=== PATIENT | male | born 1965 | race Caucasian/White ===

== ENCOUNTER 2019-05-19 20:34 | Emergency (ER) | payer MEDICAID, SELFPAY ==
[2019-05-19 20:43] VITALS: BP 187/110; PULSE 78; RESP 18; TEMP 36.9; O2SAT 96; BMI 36.4
[2019-05-19 20:48] VITALS: BP 187/110; PULSE 77; PULSE 83; RESP 14; O2SAT 96
[2019-05-19] MEDS: cloNIDine 0.1 mg Tablet 0.3 MG PO (20:59)
[2019-05-19] MEDS: HYDROcodone-acetaminophen 7.5-325 mg Tablet 1 TAB PO (20:59)
--- NOTE | 2019-05-19 21:14 | ED_ITS ---
HPI - Back Pain/Injury General: Chief Complaint: Back Pain/Injury Stated Complaint: LOWER BACK PAIN Time Seen by Provider: 05/19/19 20:47 History of Present Illness: HPI Narrative: ObesePatient complains of back pain from pushing his disabled program wheelchair yesterday about 1/2 miles 300 pound wheelchair. Patient did come in by ambulance. Patient had concerns about some fluid he has in his abdomen had questions about that. MD elicited complaint: back pain and back injury Pertinent past history: prior back pain Onset (ago): hour(s) Timing: constant Severity: moderate Associated symptoms: Deny abdominal pain, chills, fever(s), nausea or vomiting Review of Systems Narrative: Obese Const: Denies: fever, chills or body aches Eyes: Denies: change in vision or blurry vision ENMT: Denies: throat pain or nasal congestion Card: Denies: chest pain or shortness of breath on exertion Resp: Denies: shortness of breath, productive cough or non-productive cough GI: Denies: abdominal pain, nausea or vomiting : Denies: difficulty urinating Musc: Reports: back pain Skin/Breast: Denies: rash Neuro: Denies: headache Psych: Denies: anxiety or depression Jose G/Lymph: Denies: easy bruising PFSH ED PFSH: Statuses (acute, chronic, etc) shown below reflect problem list status as previously entered and may not be historically accurate Social History Smoking and tobacco status: current every day smoker Physical Exam Const: COMMON NORMALS: no apparent distress, average body habitus and oriented x3 HENMT: COMMON NORMALS: normocephalic HEAD & SCALP: normal to inspection and normocephalic FACE & SINUS: normal facial exam Eye: COMMON NORMALS: conjunctivae normal GENERAL EYE: normal appearance of both eyes CONJUNCTIVA: Yes conjunctivae normal Neck/C-Spine: COMMON NORMALS: no JVD Chest: COMMONS NORMALS: inspection of chest normal Resp: COMMON NORMALS: normal respiratory effort and clear to auscultation bilaterally AUSCULTATION: clear to auscultation bilaterally Cardio: COMMON NORMALS: no JVD, regular rate and regular rhythm RATE: reg ular rate RHYTHM: regular rhythm GI: COMMON NORMALS: normal to inspection, nondistended, normoactive bowel sounds Back/Pelvis: LUMBAR SPINE/LOWER BACK: Yes pain with ROM, Yes paraspinal muscle tenderness, No paraspinal muscle spasm, Yes straight leg raise positive right and Yes straight leg raise positive left BACK IMAGE (MALE): 1. Extremity: COMMON NORMALS: normal to inspection and full ROM Neuro: COMMON NORMALS: oriented x3 Course Vital Signs: Vital signs: Vital Signs Temperature 98.4 F 05/19/19 20:43 Pulse Rate 77 05/19/19 20:48 Respiratory Rate 14 05/19/19 20:48 Blood Pressure 187/110 05/19/19 20:48 Pulse Oximetry 96 05/19/19 20:48 Discharge Plan Discharge Clinical Impression: Strain of lumbar region Condition: Stable Prescriptions: New hydrocodone-acetaminophen 5-325 mg tablet 1 tab PO Q8H PRN (Reason: pain) Qty: 10 RF: 0 No Action Glucophage 500 mg Tablet 500 mg PO BID RF: 0 omeprazole 40 mg Capsule,Delayed Release(Dr/Ec) 40 mg PO DAILY RF: 0 levothyroxine 200 mcg Capsule 200 mcg PO DAILY RF: 0 Discharge Orders: Discharge Order (Routine); Ordered 05/19/19 Ordered By: Alonso Brody Referrals: Joseph Crespo DO [Family Provider] - Discharge Diet: Advance as tolerated Discharge Activity: Limit activity as instructed Patient Instructions: Low Back Strain (ED) Activity Restrictions/Additional Instructions: Follow-up with medical provider as directed. Take medications as prescribed. Return to the ER are your medical provider if condition worsens. Read and understand discharge instructions. Coding Level of Care Code ED Stamp Collector for Marva Bunn
[2019-05-19 21:35] VITALS: BP 145/99; PULSE 77; RESP 14; TEMP 36.6; O2SAT 97
== END 2019-05-19 21:37 | disposition home or self-care (01) ==
PROVIDERS: Emergency Provider Nurse Practitioner Family; Family Provider Internal Medicine
DX: S39.012A Strain of muscle, fascia and tendon of lower back, initial encounter (principal); X50.9XXA Other and unspecified overexertion or strenuous movements or postures, initial encounter; F17.210 Nicotine dependence, cigarettes, uncomplicated; Z79.84 Long term (current) use of oral hypoglycemic drugs
CPT/HCPCS: 99281

== ENCOUNTER 2019-05-28 19:50 | Emergency (ER) | payer MEDICAID, SELFPAY ==
[2019-05-28 19:52] VITALS: BP 120/61; PULSE 76; RESP 16; TEMP 36.6; O2SAT 97; BMI 34.7
--- NOTE | 2019-05-28 20:10 | XRR_ITS ---
PROCEDURE INFORMATION: Exam: XR Abdomen, 1 View Exam date and time: 05/28/2019 8:11 PM Age: 54 years old Clinical indication: Abdominal pain; Generalized TECHNIQUE: Imaging protocol: XR of the abdomen. Views: Frontal supine view of the abdomen. 1 View. COMPARISON: CR Abdomen Series Acute [id number] 03/20/2019 8:00 PM FINDINGS: Gastrointestinal tract: Normal. No bowel dilation. Bones/joints: Unremarkable. XR/XR KUB portable [id number] IMPRESSION: Negative for acute GI abnormality
--- NOTE | 2019-05-28 20:18 | W.ED.GENADLT ---
HPI - General Adult General: Chief complaint: Abdominal Pain Stated complaint: constipation Time Seen by Provider: 05/28/19 20:10 History of Present Illness: HPI narrative: Patient arrived via EMS. Complains of abdominal pain. Was trying to have a bowel movement and abdomen started hurting. [place] very faint possibly like he was going to throw up. complaint: abd pain Onset (ago): minute(s) Location: abdomen Radiation: non-radiation Severity: severe Severity scale (1-10): 8 Quality: stabbing Pain Consistency: constant Relieving factors: none Associated symptoms: Reports no associated symptoms; Deny chest pain, dyspnea, headache(s), nausea, rash or vomiting Review of Systems Const: Denies: fever, chills or body aches Eyes: Denies: change in vision or blurry vision ENMT: Denies: throat pain or nasal congestion Card: Denies: chest pain or shortness of breath on exertion Resp: Denies: shortness of breath, productive cough or non-productive cough GI: Reports: abdominal pain; Denies: nausea or vomiting : Denies: difficulty urinating Musc: Denies: extremity pain Skin/Breast: Denies: rash Neuro: Denies: headache Psych: Denies: anxiety or depression Jose G/Lymph: Denies: easy bruising PFSH ED PFSH: Statuses (acute, chronic, etc) shown below reflect problem list status as previously entered and may not be historically accurate Social History Smoking and tobacco status: current every day smoker Physical Exam Const: COMMON NORMALS: no apparent distress, average body habitus and oriented x3 HENMT: COMMON NORMALS: normocephalic HEAD & SCALP: normal to inspection and normocephalic FACE & SINUS: normal facial exam Eye: COMMON NORMALS: conjunctivae normal GENERAL EYE: normal appearance of both eyes CONJUNCTIVA: Yes conjunctivae normal Neck/C-Spine: COMMON NORMALS: no JVD Chest: COMMONS NORMALS: inspection of chest normal Resp: COMMON NORMALS: normal respiratory effort and clear to auscultation bilaterally AUSCULTATION: clear to auscultation bilaterally Cardio: COMMON NORMALS: no JVD, regular rate and regular rhythm RATE: regular rate RHYTHM: regular rhythm GI: INSPECTION: Yes abdominal distension AUSCULTATION: Yes normoactive bowel sounds PALPATION: Yes tender Details: LLQ, RLQ, LUQ and RUQ PERCUSSION: tympanic to percussion Extremity: COMMON NORMALS: normal to inspection and full ROM Neuro: COMMON NORMALS: oriented x3 Course Vital Signs: Vital signs: Vital Signs Temperature 97.8 F 05/28/19 19:52 Pulse Rate 76 05/28/19 19:52 Respiratory Rate 16 05/28/19 19:52 Blood Pressure 120/61 05/28/19 19:52 Pulse Oximetry 97 05/28/19 19:52 [facility] - General Adult Lab Data: Labs: Lab Results 05/28/19 05/28/19 Range/Units 19:30 19:30 WBC 11.3 H (4.0-10.0) 10^3/ uL RBC 4.23 (4.1-5.3) 10^6/u L Hgb 13.5 (11.7-16.6) g/dL Hct 40.3 L (42.0-52.0) % MCV 95.3 H (80-94) fL MCH 31.9 (28.0-34.0) pg MCHC 33.5 (30.0-36.0) g/dL RDW 13.8 (12.1-15.1) % Plt Count 155 (130-400) 10^3/c mm MPV 9.9 (7.4-10.4) fL Neut % (Auto) 49.1 % Lymph % (Auto) 39.9 % Hawkins % (Auto) 5.6 % Eos % (Auto) 3.1 % Baso % (Auto) 1.2 % Neut # (Auto) 5.6 (1.8-7.7) 10^3/u L Lymph # (Auto) 4.5 (0.8-4.8) 10^3/u L Hawkins # (Auto) 0.6 (0.2-0.9) 10^3/u L Eos # (Auto) 0.4 (0.0-0.8) 10^3/u L Baso # (Auto) 0.1 (0.0-0.1) 10^3/u L Nucleated RBC % (a uto) 0 % Nucleated RBCs # 0.0 /100WBC Sodium 136 (136-145) mmol/L Potassium 3.4 L (3.5-5.1) mmol/L Chloride 95 L (98-107) mmol/L Carbon Dioxide 30 H (22-29) mmol/L Anion Gap 14.4 (5-19) BUN 17 (6-20) mg/dL Creatinine 1.9 H (0.7-1.2) mg/dL GFR Calculation 37.4 L (90-130) mL/min Glucose 116 H (74-109) mg/dL Calcium 9.9 (8.6-10.0) mg/Dl Total Bilirubin 0.9 (0.15-1.2) mg/dL AST 69 H (0-40) U/L ALT 23 (0-41) U/L Alkaline Phosphata se 84 (40-130) IU/L Total Protein 8.8 H (6.6-8.7) g/dL Albumin 4.3 (3.5-5.2) g/dL Globulin 4.5 (1.3-4.6) g/dL Lipase 40 (13-60) U/L Discharge Plan Discharge Prescriptions: No Action metformin [Glucophage] 500 mg Tablet 500 mg PO BID RF: 0 omeprazole 40 mg Capsule,Delayed Release(Dr/Ec) 40 mg PO DAILY RF: 0 levothyroxine 200 mcg Capsule 200 mcg PO DAILY RF: 0 hydrocodone-acetaminophen 5-325 mg tablet 1 tab PO Q8H PRN (Reason: pain) Qty: 10 RF: 0 Coding Level of Care Code ED Virtual Reality Specialist for Rheag Fwd Exam Problem Focused
[2019-05-28 20:21] LABS: Basophils # 0.1 10^3/uL (0.0-0.1); Basophils % 1.2 %; Eosinophils # 0.4 10^3/uL (0.0-0.8); Eosinophils % 3.1 %; Hematocrit 40.3 % (42.0-52.0); Hemoglobin 13.5 g/dL (11.7-16.6); Lymphocytes # 4.5 10^3/uL (0.8-4.8); Lymphocytes % 39.9 %; Mean Corpuscular HGB Conc 33.5 g/dL (30.0-36.0); Mean Corpuscular Hemoglobin 31.9 pg (28.0-34.0); Mean Corpuscular Volume 95.3 fL (80-94); Mean Platelet Volume 9.9 fL (7.4-10.4); Monocytes # 0.6 10^3/uL (0.2-0.9); Monocytes % 5.6 %; Neutrophils # 5.6 10^3/uL (1.8-7.7); Neutrophils % 49.1 %; Nucleated Red Blood Cells % 0 %; Platelet Count 155 10^3/cmm (130-400); Red Blood Count 4.23 10^6/uL (4.1-5.3); Red Cell Distribution Width 13.8 % (12.1-15.1); White Blood Count 11.3 10^3/uL (4.0-10.0)
[2019-05-28] MEDS: HYDROcodone-acetaminophen 5-325 mg Tablet 1 TAB PO (20:28)
[2019-05-28 20:31] LABS: Alanine Aminotransferase 23 U/L (0-41); Albumin Level 4.3 g/dL (3.5-5.2); Alkaline Phosphatase 84 IU/L (40-130); Anion Gap 14.4 (5-19); Aspartate Amino Transferase 69 U/L (0-40); Blood Urea Nitrogen 17 mg/dL (6-20); Calcium 9.9 mg/Dl (8.6-10.0); Carbon Dioxide 30 mmol/L (22-29); Chloride 95 mmol/L (98-107); Globulin 4.5 g/dL (1.3-4.6); Glomerular Filtration Rate 37.4 mL/min (90-130); Glucose 116 mg/dL (74-109); Lipase 40 U/L (13-60); Potassium 3.4 mmol/L (3.5-5.1); Sodium 136 mmol/L (136-145); Total Bilirubin 0.9 mg/dL (0.15-1.2); Total Protein 8.8 g/dL (6.6-8.7)
[2019-05-28 22:43] VITALS: BP 122/64; PULSE 72; RESP 14; TEMP 36.9; O2SAT 97
== END 2019-05-28 22:45 | disposition home or self-care (01) ==
PROVIDERS: Emergency Provider Nurse Practitioner Family; Family Provider Internal Medicine
DX: R10.9 Unspecified abdominal pain (principal); Z79.84 Long term (current) use of oral hypoglycemic drugs; F17.210 Nicotine dependence, cigarettes, uncomplicated
CPT/HCPCS: 74018; 80053; 83690; 85025; 99281

== ENCOUNTER 2019-06-25 21:54 | Emergency (ER) | payer MEDICAID, SELFPAY ==
[2019-06-25 22:05] VITALS: BP 166/128; PULSE 90; RESP 18; TEMP 36.9; O2SAT 99; BMI 34.4
--- NOTE | 2019-06-25 22:24 | W.ED.GENADLT ---
HPI - General Adult General: Chief complaint: Abdominal Pain Stated complaint: ABD PAIN Time Seen by Provider: 06/25/19 22:04 History of Present Illness: HPI narrative: Patient complains of abdominal pain after jigging at the dance tonight he was doing fine prior to dance. Patient states he was diagnosed here with an enlarged fatty liver and has intermittent problems with that and is supposed to see a specialist at [facility] in [place] in November. He states it hurts him sometimes when he does certain activities and tonight was 1 of those nights. Denies any other problems. MD complaint: fatty liver pain Onset (ago): minute(s) Location: abdomen Radiation: non-radiation Severity: moderate Quality: aching Pain Consistency: constant Relieving factors: none Associated symptoms: Reports no associated symptoms; Deny chest pain, dyspnea, headache(s), nausea, rash or vomiting Review of Systems Const: Denies: fever, chills or body aches Eyes: Denies: change in vision or blurry vision ENMT: Denies: throat pain or nasal congestion Card: Denies: chest pain or shortness of breath on exertion Resp: Denies: shortness of breath, productive cough or non-productive cough GI: Reports: abdominal pain; Denies: nausea, vomiting, vomiting blood, coffee grounds in vomit, heartburn/indigestion, excessive passing of gas, painful bowel movements, rectal pain or change in stool character : Denies: difficulty urinating Musc: Denies: extremity pain Skin/Breast: Denies: rash Neuro: Denies: headache Psych: Denies: anxiety or depression Jose G/Lymph: Denies: easy bruising PFSH ED PFSH: Social History Smoking and tobacco status: current every day smoker Physical Exam Const: COMMON NORMALS: no apparent distress, average body habitus and oriented x3 HENMT: COMMON NORMALS: normocephalic HEAD & SCALP: normal to inspection and normocephalic FACE & SINUS: normal facial exam Eye: COMMON NORMALS: conjunctivae normal GENERAL EYE: normal appearance of both eyes CONJUNCTIVA: Yes conjunctivae normal Neck/C-Spine: COMMON NORMALS: no JVD Chest: COMMONS NORMALS: inspection of chest normal Resp: COMMON NORMALS: normal respiratory effort and clear to auscultation bilaterally AUSCULTATION: clear to auscultation bilaterally Cardio: COMMON NORMALS: no JVD, regular rate and regular rhythm RATE: regular rate RHYTHM: regular rhythm GI: COMMON NORMALS: normal to inspection, nondistended, normoactive bowel sounds INSPECTION: Yes normal to inspection AUSCULTATION: Yes normoactive bowel sounds PALPATION: Yes tender (Patient's reaction to to percussion and palpation are not consistent with true abdominal pain) Details: RUQ Extremity: COMMON NORMALS: normal to inspection and full ROM Neuro: COMMON NORMALS: oriented x3 Course Vital Signs: Vital signs: Vital Signs Temperature 98.4 F 06/25/19 22:05 Pulse Rate 90 06/25/19 22:05 Respiratory Rate 16 06/25/19 22:30 Blood Pressure 166/128 06/25/19 22:05 Pulse Oximetry 97 06/25/19 22:30 MDM - General Adult MDM Narrative: Medical decision making narrative: Discussed case with Dr. Steffany Jeter agrees with plan. Discharge Plan Discharge Patient Disposition: Home, Self-Care Clinical Impression: Seizure disorder, Fatty liver Abdominal muscle strain Qualifiers: Encounter type: initial encounter Qualified Code(s): S39.011A - Strain of muscle, fascia and tendon of abdomen, initial encounter Condition: Stable Prescriptions: New hydrocodone-acetaminophen 5-325 mg tablet 1 tab PO Q8H PRN (Reason: pain) Qty: 5 RF: 0 No Action metformin [Glucophage] 500 mg Tablet 500 mg PO BID RF: 0 omeprazole 40 mg Capsule,Delayed Release(Dr/Ec) 40 mg PO DAILY RF: 0 levothyroxine 200 mcg Capsule 200 mcg PO DAILY RF: 0 hydrocodone-acetaminophen 5-325 mg tablet 1 tab PO Q8H PRN (Reason: pain) Qty: 10 RF: 0 Discharge Orders: Discharge Order (Routine); Ordered 06/25/19 Ordered By: Alonso Brody Referrals: Joseph Crespo, [Family Provider] - Discharge Diet: Advance as tolerated Discharge Activity: Increase activity as tolerated Patient Instructions: Muscle Strain (ED), Non-Alcoholic Fatty Liver Disease (ED) Activity Restrictions/Additional Instructions: Follow-up with medical provider as directed. Take medications as prescribed. Return to the ER or your medical provider if condition worsens. Please read and understand discharge instructions. If any questions ask please. Coding Level of Care Code ED Board Of Directors for Rheag Fwd Exam Comprehensive
[2019-06-25] MEDS: ondansetron 2 mg/ML SDV 2 mL 4 MG IVP (22:29)
[2019-06-25 22:30] VITALS: RESP 16; O2SAT 97
[2019-06-25] MEDS: morphine 4 mg/mL SDV 1 mL 2 MG IVP (22:30)
[2019-06-25] MEDS: divalproex ER 500 mg Tablet (24H) 1000 MG PO (22:35)
[2019-06-25 23:13] VITALS: BP 159/108; PULSE 83; RESP 18; O2SAT 97
== END 2019-06-25 23:14 | disposition home or self-care (01) ==
PROVIDERS: Emergency Provider Nurse Practitioner Family; Family Provider Internal Medicine
DX: S39.011A Strain of muscle, fascia and tendon of abdomen, initial encounter (principal); K76.0 Fatty (change of) liver, not elsewhere classified; G40.909 Epilepsy, unspecified, not intractable, without status epilepticus; F17.200 Nicotine dependence, unspecified, uncomplicated; X50.9XXA Other and unspecified overexertion or strenuous movements or postures, initial encounter; Y93.41 Activity, dancing
CPT/HCPCS: 96374; 96375; 99282; 99283; J2270; J2405

== ENCOUNTER 2019-07-10 21:06 | Emergency (ER) | payer MEDICAID, SELFPAY ==
[2019-07-10 21:19] VITALS: BP 186/109; PULSE 84; RESP 18; TEMP 36.4; O2SAT 100; BMI 34.4
--- NOTE | 2019-07-10 21:21 | ED_ITS ---
Entered by Chantale Hernandez, acting as scribe for Kerry Jeter MD HPI - Neck Pain/Injury General: Chief Complaint: Neck Pain/Injury Stated Complaint: BACK PAIN Time Seen by Provider: 07/10/19 21:16 Source: patient, family and RN notes reviewed Mode of arrival: ambulatory Limitations: no limitations History of Present Illness: HPI Narrative: 54 yo male presents to ED with complaints of neck pain. He said he was putting on his coat to leave a restaurant and he had a sudden sharp pain that went up his neck. complaint: neck pain Onset (ago): minute(s) (30) Place: other (restaurant) Radiation: upper back Severity: mild Quality: sharp Duration: constant Relieving factors: none Exacerbating factors: none Context: turning/bending Associated symptoms: Reports no associated symptoms; Denies headache(s) or nausea Treatments prior to arrival: none Review of Systems Const: Denies: fever, chills, body aches or change in appetite Eyes: Denies: blurry vision or eye discomfort ENMT: Denies: throat pain or dental pain Card: Denies: chest pain Resp: Denies: shortness of breath GI: Denies: abdominal pain, nausea, vomiting or diarrhea : Denies: painful urination Musc: Denies: neck pain or back pain Skin/Breast: Denies: rash Neuro: Denies: headache Psych: Denies: depression Jose G/Lymph: Denies: easy bruising All/Imm: Denies: hives PFSH ED PFSH: Social History Smoking and tobacco status: current every day smoker Physical Exam Const: COMMON NORMALS: no apparent distress, oriented x3 and healthy appearing HENMT: COMMON NORMALS: normocephalic and head/scalp atraumatic HEAD & SCALP: normocephalic and atraumatic Eye: COMMON NORMALS: PERRL and EOMs intact bilaterally PUPIL: Yes PERRL Neck/C-Spine: COMMON NORMALS: full ROM and supple Chest: COMMONS NORMALS: inspection of chest normal and palpation of chest normal Resp: COMMON NORMALS: normal respiratory effort, no retractions, no use of accessory muscles and clear to auscultation bilaterally AUSCULTATION: clear to auscultation bilaterally Cardio: COMMON NORMALS: regular rate, regular rhythm and no murmurs RATE: regular rate RHYTHM: regular rhythm GI: COMMON NORMALS: normal to inspection, nondistended, normoactive bowel sounds, soft to palpation, non-tender and no masses PALPATION: Yes soft Extremity: COMMON NORMALS: normal to inspection and full ROM Neuro: COMMON NORMALS: oriented x3, moves all extremities and no focal motor deficits Psych: COMMON NORMALS: mental status grossly normal, thought process normal and cooperative THOUGHT PROCESS: normal thought process Skin: COMMON NORMALS: no rashes or lesions noted and no wounds GENERAL SKIN EXAM: no rashes or lesions noted Course Vital Signs: Vital signs: Vital Signs Temperature 97.5 F L 07/10/19 21:19 Pulse Rate 84 07/10/19 21:19 Respiratory Rate 18 07/10/19 21:19 Blood Pressure 186/109 07/10/19 21:19 Pulse Oximetry 100 07/10/19 21:19 MDM - Neck Pain/Injury MDM Narrative: Medical decision making narrative: Alonso presents here with a next drain. Patient is well-appearing here and has no signs of major injury. We will place him on Naprosyn and Robaxin. Patient is stable for discharge and is to follow-up with primary care doctor in 3 to 5 days. Discharge Plan Discharge Patient Disposition: Home, Self-Care Clinical Impression: Strain of neck muscle Qualifiers: Encounter type: initial encounter Qualified Code(s): S16.1XXA - Strain of muscle, fascia and tendon at neck level, initial encounter Condition: Stable Prescriptions: New Robaxin-750 750 mg tablet 750 mg PO Q6H Qty: 30 RF: 0 EC-Naprosyn 500 mg tablet,delayed release (DR/EC) 500 mg PO BID PRN (Reason: pain) Qty: 20 RF: 0 No Action metformin [Glucophage] 500 mg Tablet 500 mg PO BID RF: 0 omeprazole 40 mg Capsule,Delayed Release(Dr/Ec) 40 mg PO DAILY RF: 0 levothyroxine 200 mcg Capsule 200 mcg PO DAILY RF: 0 hydrocodone-acetaminophen 5-325 mg tablet 1 tab PO Q8H PRN (Reason: pain) Qty: 10 RF: 0 hydrocodone-acetaminophen 5-325 mg tablet 1 tab PO Q8H PRN (Reason: pain) Qty: 5 RF: 0 Discharge Orders: Discharge Order (Routine); Ordered 07/10/19 Ordered By: Kerry Jeter Referrals: Joseph Crespo DO [Family Provider] - 4-7 days Discharge Diet: Advance as tolerated Discharge Activity: Resume usual activity Patient Instructions: Cervical Spine Strain (ED) Coding Level of Care Code ED Coding Coordinator for Chg Fwd Exam Comprehensive The documentation recorded by the David peters Valerie R, accurately reflects the service I personally performed and the decisions made by meSteffany Korby, MD
[2019-07-10 21:48] VITALS: BP 180/100; PULSE 86; RESP 18; O2SAT 100
--- NOTE | 2019-07-10 22:14 | PC.NURSE ---
RN reviewed and agrees with assessment
== END 2019-07-10 21:48 | disposition home or self-care (01) ==
LOC: ER 21:41
PROVIDERS: Emergency Provider Emergency Medicine; Family Provider Internal Medicine
DX: S16.1XXA Strain of muscle, fascia and tendon at neck level, initial encounter (principal); F17.200 Nicotine dependence, unspecified, uncomplicated; X50.9XXA Other and unspecified overexertion or strenuous movements or postures, initial encounter
CPT/HCPCS: 99281; 99282

== ENCOUNTER 2019-07-16 23:04 | Observation (INO) | payer MEDICAID, SELFPAY ==
[2019-07-16 23:10] VITALS: BP 184/111; PULSE 88; RESP 16; O2SAT 95; BMI 34.4
--- NOTE | 2019-07-16 23:14 | ED_ITS ---
Documented by User: AURELIO Bardales 07/17/19 02:49 HPI - General Adult General: Chief complaint: General Medical Stated complaint: sob Time Seen by Provider: 07/16/19 23:13 History of Present Illness: HPI narrative: Patient is a 54-year-old male who comes into the ED with shortness of breath and chest pain. Patient states that he was walking tonight and started getting chest pain and shortness of breath. He said the chest pain shortness of breath did subside after he rested. He still has some chest pain and when he pushes on his chest he can feel it. Denies any fever, chills, nausea, vomiting, abdominal pain, bladder or bowel symptoms. Associated symptoms: Reports chest pain and dyspnea; Deny headache(s), nausea, rash, palpitations or vomiting Review of Systems Const: Denies: fever, chills or fatigue Eyes: Denies: change in vision or eye discomfort ENMT: Denies: throat pain, painful swallowing, nasal discharge or nasal co ngestion Card: Reports: chest pain; Denies: palpitations, edema, swelling of feet/ankles, shortness of breath on exertion or shortness of breath when lying down Resp: Reports: shortness of breath and non-productive cough; Denies: productive cough GI: Denies: abdominal pain, nausea, vomiting, diarrhea, constipation or blood in stool : Denies: flank pain, difficulty urinating, painful urination or blood in urine Musc: Denies: neck pain, back pain or extremity swelling Skin/Breast: Denies: rash or new lesion Neuro: Denies: headache, numbness in extremities or weakness in extremities [facility] ED PFSH: Social History Smoking and tobacco status: current every day smoker Physical Exam Narrative: EXAM NARRATIVE: Patient is a 54-year-old male who sitting comfortably on the exam bed when into the room. He showed no signs of any acute distress or pain or any respiratory distress. Const: COMMON NORMALS: oriented x3 HENMT: COMMON NORMALS: normocephalic HEAD & SCALP: normocephalic MOUTH: oral and palatal mucosa normal THROAT: posterior oropharynx normal and uvula midline Neck/C-Spine: COMMON NORMALS: supple GENERAL: Yes normal visual inspection Lymph: LYMPHATIC: no lymphadenopathy noted Chest: CHEST: Yes tenderness sternum and costochondral junction Resp: COMMON NORMALS: normal respiratory effort, no retractions and no use of accessory muscles AUSCULTATION: wheezes expiratory wheezes (throughout lungs bilaterally) Cardio: COMMON NORMALS: regular rate, regular rhythm, S1 normal heart sound, S2 normal heart sound, no gallops, no clicks, no murmurs and peripheral pulses 2+ throughout RATE: regular rate RHYTHM: regular rhythm HEART SOUNDS: S1 normal and S2 normal PERIPHERAL PULSES: pulses 2+ throughout GI: COMMON NORMALS: normal to inspection, nondistended, normoactive bowel sounds, soft to palpation, non-tender and no masses PALPATION: Yes soft : COMMON NORMALS: Yes no CVA tenderness BLADDER/KIDNEY EXAM: Yes no CVA tenderness Back/Pelvis: COMMON NORMALS: no CVA tenderness Extremity: COMMON NORMALS: normal to inspection and normal capillary refill Neuro: COMMON NORMALS: oriented x3 and moves all extremities Skin: COMMON NORMALS: no rashes or lesions noted GENERAL SKIN EXAM: no rashes or lesions noted and dry skin Course ED course: Heart score: 5 (moderate risk) Risk of MACE of 12-16%. I discussed this case with Dr. Beyer. He will be taking over and managing care patient. Dr. Beyer wants to hold him here in the ED and take a look at his 6- hour troponin lab to see how it is changed. Vital Signs: Vital signs: Vital Signs Pulse Rate 72 07/17/19 05:52 Respiratory Rate 14 07/17/19 05:52 Blood Pressure 136/78 07/17/19 05:52 Pulse Oximetry 98 07/17/19 05:52 [facility] - General Adult Lab Data: Attestation: I reviewed the patient's lab results. Labs: Lab Results 07/16/19 07/16/19 07/16/19 Range/Units 23:43 23:46 23:46 WBC 5.5 (4.0-10.0) 10^3/ uL RBC 3.77 L (4.1-5.3) 10^6/u L Hgb 11.6 L (11.7-16.6) g/dL Hct 36.1 L (42.0-52.0) % MCV 95.8 H (80-94) fL MCH 30.8 (28.0-34.0) pg MCHC 32.1 (30.0-36.0) g/dL RDW 13.4 (12.1-15.1) % Plt Count 94 L (130-400) 10^3/c mm MPV 9.8 (7.4-10.4) fL Neut % (Auto) 64.7 % Lymph % (Auto) 17.0 % Edwards % (Auto) 9.7 % Eos % (Auto) 4.8 % Baso % (Auto) 1.1 % Neut # (Auto) 3.5 (1.8-7.7) 10^3/u L Lymph # (Auto) 0.9 (0.8-4.8) 10^3/u L Edwards # (Auto) 0.5 (0.2-0.9) 10^3/u L Eos # (Auto) 0.3 (0.0-0.8) 10^3/u L Baso # (Auto) 0.1 (0.0-0.1) 10^3/u L Nucleated RBC % (a uto) 0 % Nucleated RBCs # 0.0 /100WBC Sodium (136-145) mmol/L Potassium (3.5-5.1) mmol/L Chloride (98-107) mmol/L Carbon Dioxide (22-29) mmol/L Anion Gap (5-19) BUN (6-20) mg/dL Creatinine (0.7-1.2) mg/dL GFR Calculation (90-130) mL/min Glucose (65-115) mg/dL Calcium (8.5-10.5) mg/dL Total Bilirubin (0.15-1.2) mg/dL AST (0-40) U/L ALT (0-41) U/L Alkaline Phosphata se (40-130) IU/L Troponin I 6 Hour (0-15) ng/mL Troponin T Baselin e 50 H (0-15) ng/mL Troponin T 120 Min [place] (0-15) ng/mL Delta Troponin T (0-10) ABS# Total Protein (6.6-8.7) g/dL Albumin (3.5-5.2) g/dL Globulin (1.3-4.6) g/dL Influenza Type A A g Negative (Negative) POC Influenza B Ag Negative (Negative) 07/16/19 07/17/19 07/17/19 Range/Units 23:46 01:40 05:47 WBC (4.0-10.0) 10^3/ uL RBC (4.1-5.3) 10^6/u L Hgb (11.7-16.6) g/dL Hct (42.0-52.0) % MCV (80-94) fL MCH (28.0-34.0) pg MCHC (30.0-36.0) g/dL RDW (12.1-15.1) % Plt Count (130-400) 10^3/c mm MPV (7.4-10.4) fL Neut % (Auto) % Lymph % (Auto) % Edwards % (Auto) % Eos % (Auto) % Baso % (Auto) % Neut # (Auto) (1.8-7.7) 10^3/u L Lymph # (Auto) (0.8-4.8) 10^3/u L Edwards # (Auto) (0.2-0.9) 10^3/u L Eos # (Auto) (0.0-0.8) 10^3/u L Baso # (Auto) (0.0-0.1) 10^3/u L Nucleated RBC % (a uto) % Nucleated RBCs # /100WBC Sodium 137 (136-145) mmol/L Potassium 3.9 (3.5-5.1) mmol/L Chloride 97 L (98-107) mmol/L Carbon Dioxide 29 (22-29) mmol/L Anion Gap 14.9 (5-19) BUN 17 (6-20) mg/dL Creatinine 1.2 (0.7-1.2) mg/dL GFR Calculation 63.6 L (90-130) mL/min Glucose 235 H (65-115) mg/dL Calcium 9.5 (8.5-10.5) mg/dL Total Bilirubin 0.7 (0.15-1.2) mg/dL AST 47 H (0-40) U/L ALT 30 (0-41) U/L Alkaline Phosphata se 112 (40-130) IU/L Troponin I 6 Hour 52.47 H (0-15) ng/mL Troponin T Baselin e (0-15) ng/mL Troponin T 120 Min [place] 59.27 H (0-15) ng/mL Delta Troponin T 9.27 (0-10) ABS# Total Protein 7.6 (6.6-8.7) g/dL Albumin 3.8 (3.5-5.2) g/dL Globulin 3.8 (1.3-4.6) g/dL Influenza Type A A g (Negative) POC Influenza B Ag (Negative) EKG Data^: EKG 1: Attestation: I personally reviewed and interpreted this EKG as follows: EKG interpretation date: 07/16/19 EKG interpretation time: 23:57 Interpretation: Sinus rhythm, 79 bpm, possible ST segment elevation in V2 lead no other ST segment elevation or depression seen throughout the EKG, P waves present. EKG 2: Attestation: I personally reviewed and interpreted this EKG as follows: EKG interpretation date: 07/17/19 EKG interpretation time: 01:49 Interpretation: Sinus rhythm, 70 bpm, no ST segment elevation or depression seen, P waves present. Discharge Plan Discharge Prescriptions: No Action metformin [Glucophage] 500 mg Tablet 500 mg PO BID RF: 0 omeprazole 40 mg Capsule,Delayed Release(Dr/Ec) 40 mg PO DAILY RF: 0 levothyroxine 200 mcg Capsule 200 mcg PO DAILY RF: 0 methocarbamol [Robaxin-750] 750 mg tablet 750 mg PO Q6H Qty: 30 RF: 0 naproxen [EC-Naprosyn] 500 mg tablet,delayed release (DR/EC) 500 mg PO BID PRN (Reason: pain) Qty: 20 RF: 0 Coding Level of Care Code ED Zipper Slide Attacher for Chg Fwd Exam Comprehensive Documented by User: Khadar Beyer DO 07/17/19 06:18 HPI - General Adult General: Chief complaint: General Medical Stated complaint: sob Time Seen by Provider: 07/16/19 23:13 PFSH ED PFSH: Social History Smoking and tobacco status: current every day smoker Course Vital Signs: Vital signs: Vital Signs Pulse Rate 72 07/17/19 05:52 Respiratory Rate 14 07/17/19 05:52 Blood Pressure 136/78 07/17/19 05:52 Pulse Oximetry 98 07/17/19 05:52 MDM - General Adult MDM Narrative: Medical decision making narrative: 54-year-old gentleman well- known to the ER. Checked out to me by Mr. Wilfredo PA-C. This patient reported chest pain after carrying a wheelchair battery. His pain is reproducible. However, he has some EKG changes that are nonspecific, particularly in V2 on his initial EKG. He also has a delta troponin of 9 at 2 hours. His 6-hour troponin is been drawn. He will be placed on a monitored bed. He is given nitrates, and morphine as needed for pain, as he still complaining of some chest pain. Lab Data: Labs: Lab Results 07/16/19 07/16/19 07/16/19 Range/Units 23:43 23:46 23:46 WBC 5.5 (4.0-10.0) 10^3/ uL RBC 3.77 L (4.1-5.3) 10^6/u L Hgb 11.6 L (11.7-16.6) g/dL Hct 36.1 L (42.0-52.0) % MCV 95.8 H (80-94) fL MCH 30.8 (28.0-34.0) pg MCHC 32.1 (30.0-36.0) g/dL RDW 13.4 (12.1-15.1) % Plt Count 94 L (130-400) 10^3/c mm MPV 9.8 (7.4-10.4) fL Neut % (Auto) 64.7 % Lymph % (Auto) 17.0 % Edwards % (Auto) 9.7 % Eos % (Auto) 4.8 % Baso % (Auto) 1.1 % Neut # (Auto) 3.5 (1.8-7.7) 10^3/u L Lymph # (Auto) 0.9 (0.8-4.8) 10^3/u L Edwards # (Auto) 0.5 (0.2-0.9) 10^3/u L Eos # (Auto) 0.3 (0.0-0.8) 10^3/u L Baso # (Auto) 0.1 (0.0-0.1) 10^3/u L Nucleated RBC % (a uto) 0 % Nucleated RBCs # 0.0 /100WBC Sodium (136-145) mmol/L Potassium (3.5-5.1) mmol/L Chloride (98-107) mmol/L Carbon Dioxide (22-29) mmol/L Anion Gap (5-19) BUN (6-20) mg/dL Creatinine (0.7-1.2) mg/dL GFR Calculation (90-130) mL/min Glucose (65-115) mg/dL Calcium (8.5-10.5) mg/dL Total Bilirubin (0.15-1.2) mg/dL AST (0-40) U/L ALT (0-41) U/L Alkaline Phosphata se (40-130) IU/L Troponin I 6 Hour (0-15) ng/mL Troponin T Baselin e 50 H (0-15) ng/mL Troponin T 120 Min [place] (0-15) ng/mL Delta Troponin T (0-10) ABS# Total Protein (6.6-8.7) g/dL Albumin (3.5-5.2) g/dL Globulin (1.3-4.6) g/dL Influenza Type A A g Negative (Negative) POC Influenza B Ag Negative (Negative) 07/16/19 07/17/19 07/17/19 Range/Units 23:46 01:40 05:47 WBC (4.0-10.0) 10^3/ uL RBC (4.1-5.3) 10^6/u L Hgb (11.7-16.6) g/dL Hct (42.0-52.0) % MCV (80-94) fL MCH (28.0-34.0) pg MCHC (30.0-36.0) g/dL RDW (12.1-15.1) % Plt Count (130-400) 10^3/c mm MPV (7.4-10.4) fL Neut % (Auto) % Lymph % (Auto) % Edwards % (Auto) % Eos % (Auto) % Baso % (Auto) % Neut # (Auto) (1.8-7.7) 10^3/u L Lymph # (Auto) (0.8-4.8) 10^3/u L Edwards # (Auto) (0.2-0.9) 10^3/u L Eos # (Auto) (0.0-0.8) 10^3/u L Baso # (Auto) (0.0-0.1) 10^3/u L Nucleated RBC % (a uto) % Nucleated RBCs # /100WBC Sodium 137 (136-145) mmol/L Potassium 3.9 (3.5-5.1) mmol/L Chloride 97 L (98-107) mmol/L Carbon Dioxide 29 (22-29) mmol/L Anion Gap 14.9 (5-19) BUN 17 (6-20) mg/dL Creatinine 1.2 (0.7-1.2) mg/dL GFR Calculation 63.6 L (90-130) mL/min Glucose 235 H (65-115) mg/dL Calcium 9.5 (8.5-10.5) mg/dL Total Bilirubin 0.7 (0.15-1.2) mg/dL AST 47 H (0-40) U/L ALT 30 (0-41) U/L Alkaline Phosphata se 112 (40-130) IU/L Troponin I 6 Hour 52.47 H (0-15) ng/mL Troponin T Baselin e (0-15) ng/mL Troponin T 120 Min [place] 59.27 H (0-15) ng/mL Delta Troponin T 9.27 (0-10) ABS# Total Protein 7.6 (6.6-8.7) g/dL Albumin 3.8 (3.5-5.2) g/dL Globulin 3.8 (1.3-4.6) g/dL Influenza Type A A g (Negative) POC Influenza B Ag (Negative) Discharge Plan Discharge Prescriptions: No Action metformin [Glucophage] 500 mg Tablet 500 mg PO BID RF: 0 omeprazole 40 mg Capsule,Delayed Release(Dr/Ec) 40 mg PO DAILY RF: 0 levothyroxine 200 mcg Capsule 200 mcg PO DAILY RF: 0 methocarbamol [Robaxin-750] 750 mg tablet 750 mg PO Q6H Qty: 30 RF: 0 naproxen [EC-Naprosyn] 500 mg tablet,delayed release (DR/EC) 500 mg PO BID PRN (Reason: pain) Qty: 20 RF: 0 Coding Level of Care Code ED Zipper Slide Attacher for Chg Fwd Exam Comprehensive
--- NOTE | 2019-07-16 23:34 | PC.NURSE ---
PATIENT STATES THAT HE WAS WALKING AND HIS CHEST STARTING HURTING AND HE GOT SHORT OF BREATH. PATIENT STATES THAT HE HAS BEEN AROUND SICK PERSONS LATELY. PATIENT STATES HIS SYMPTOMS GOT BETTER WHEN HE STOPPED MOVING AROUND BUT IT HURTS TO TAKE A DEEP BREATH.
--- NOTE | 2019-07-16 23:39 | XR_ITS ---
WS: [id number] XR chest 1V portable [id number] REASON FOR EXAM: SOB and wheezing FINDINGS: The heart mediastinum were normal. Reticular nodular pattern is seen in both lung mar. No pneumonia, pleural effusion, pulmonary genaro a, are pneumothorax. The hilum and apices are normal. No osseous abnormalities. XR/XR chest 1V portable [id number] IMPRESSION: Mild reticular changes both lung mar.
--- NOTE | 2019-07-16 23:39 | ECG_ITS ---
Measurements Intervals Andrew Rate: 79 P: 46 WA: 162 QRS: 6 QRSD: 96 T: 86 QT: 406 QTc: 468 SINUS RHYTHM NONSPECIFIC T-WAVE ABNORMALITY Compared to ECG 03/11/2019 18:58:57 Possible ischemia no longer present T-wave abnormality still present Electronically Signed On 07-17-2019 19:03:45 BI MANAGER by Christi Marion M.D. [id number]
[2019-07-16 23:40] VITALS: BP 138/88; PULSE 88; RESP 14; O2SAT 97
[2019-07-16 23:54] LABS: Basophils # 0.1 10^3/uL (0.0-0.1); Basophils % 1.1 %; Eosinophils # 0.3 10^3/uL (0.0-0.8); Eosinophils % 4.8 %; Hematocrit 36.1 % (42.0-52.0); Hemoglobin 11.6 g/dL (11.7-16.6); Lymphocytes # 0.9 10^3/uL (0.8-4.8); Mean Corpuscular HGB Conc 32.1 g/dL (30.0-36.0); Mean Corpuscular Hemoglobin 30.8 pg (28.0-34.0); Mean Corpuscular Volume 95.8 fL (80-94); Mean Platelet Volume 9.8 fL (7.4-10.4); Monocytes # 0.5 10^3/uL (0.2-0.9); Monocytes % 9.7 %; Neutrophils # 3.5 10^3/uL (1.8-7.7); Neutrophils % 64.7 %; Nucleated Red Blood Cells % 0 %; Platelet Count 94 10^3/cmm (130-400); Red Blood Count 3.77 10^6/uL (4.1-5.3); Red Cell Distribution Width 13.4 % (12.1-15.1); White Blood Count 5.5 10^3/uL (4.0-10.0)
[2019-07-17] VITALS (14 sets, daily range): BP systolic 110–153; BP diastolic 70–101; PULSE 62–104; RESP 14–20; TEMP 36.3–36.8; O2SAT 95–99
[2019-07-17 00:07] LABS: Influenza A by IFA Negative (Negative); Influenza B by IFA Negative (Negative)
[2019-07-17 00:10] LABS: Alanine Aminotransferase 30 U/L (0-41); Albumin Level 3.8 g/dL (3.5-5.2); Alkaline Phosphatase 112 IU/L (40-130); Anion Gap 14.9 (5-19); Aspartate Amino Transferase 47 U/L (0-40); Blood Urea Nitrogen 17 mg/dL (6-20); Calcium 9.5 mg/dL (8.5-10.5); Carbon Dioxide 29 mmol/L (22-29); Chloride 97 mmol/L (98-107); Globulin 3.8 g/dL (1.3-4.6); Glomerular Filtration Rate 63.6 mL/min (90-130); Glucose 235 mg/dL (65-115); Potassium 3.9 mmol/L (3.5-5.1); Sodium 137 mmol/L (136-145); Total Bilirubin 0.7 mg/dL (0.15-1.2); Total Protein 7.6 g/dL (6.6-8.7)
[2019-07-17 00:12] LABS: Troponin(5th) Baseline 50 ng/mL (0-15)
[2019-07-17] MEDS: morphine 4 mg/mL SDV 1 mL IM ×2 (01:20→02:53)
--- NOTE | 2019-07-17 01:39 | ECG_ITS ---
Measurements Intervals [place] Rate: 67 P: 43 WI: 160 QRS: -7 QRSD: 82 T: 116 QT: 446 QTc: 472 SINUS RHYTHM NONSPECIFIC T-WAVE ABNORMALITY PROLONGED QT INTERVAL Compared to ECG 03/11/2019 18:58:57 Prolonged QT interval now present Possible ischemia no longer present T-wave abnormality still present Electronically Signed On 07-17-2019 19:06:25 DOT ETCHER APPRENTICE by Christi Marion M.D. [id number]
[2019-07-17] MEDS: ipratropium-albuterol 3 mL Neb INHALATION (02:05)
--- NOTE | 2019-07-17 02:07 | PC.NURSE ---
RT IN ROOM
[2019-07-17 02:10] LABS: Troponin 5 2HR 59.27 ng/mL (0-15); Troponin 5 2HR Delta 9.27 ABS# (0-10)
--- NOTE | 2019-07-17 05:39 | ECG_ITS ---
Measurements Intervals [place] Rate: 70 P: 41 GA: 158 QRS: -3 QRSD: 98 T: 89 QT: 421 QTc: [address] & T-WAVE ABNORMALITY Compared to ECG 03/11/2019 18:58:57 Possible ischemia no longer present T-wave abnormality still present Electronically Signed On 07-17-2019 19:05:58 FACILITY WORKER by Christi Marion M.D. [id number]
[2019-07-17 06:13] LABS: Troponin 5 6HR 52.47 ng/mL (0-15); Troponin 5 6HR Delta 2.47 ng/L (0-12)
--- NOTE | 2019-07-17 06:15 | P.HP_ITS ---
Providers/Chief Complaint Chief Complaint: sob History of Present Illness Alonso Golden is a 54 year old male who carries diagnosis of hypothyroidism, glucose intolerance, obesity, active smoker, family history of coronary disease came in with chief complaint of chest pain. Patient is stating that last night he was trying to get wheelchair from his nnacbe-ny-fby's house for his significant other, he was not wearing a coat, her ocjxrr-an-qgv's house was 1 block away, when he was coming back towards his house he started experiencing chest pain which was sharp substernal radiating towards his left side of the chest, associated with shortness of breath, it lasted for 30 minutes, it made him worried, he has had multiple ER visits secondary to similar complaints in the past, he came to the ER, diagnostics showed normal EKG, 6-hour troponin trended down from 59-to 52, baseline troponin 50. Currently patient is asymptomatic, normal hemodynamics, Blood work is unremarkable, chest x-ray is negative for any infiltrate Patient is stating that he recently had a stress test 2 months ago that was done at [facility] [place] [facility] which I am not able to locate. He is denying orthopnea, PND, nausea, vomiting, flulike symptoms. But he stating that his was sick with bronchitis symptoms Review of Systems Const: Denies: fever, chills or body aches Eyes: Denies: change in vision ENMT: Denies: throat pain Card: Reports: chest pain; Denies: palpitations, irregular heart rhythm, edema or swelling of feet/ankles Resp: Denies: shortness of breath GI: Denies: abdominal pain : Denies: flank pain Musc: Denies: neck pain Skin/Breast: Denies: rash Neuro: Denies: headache Psych: Denies: anxiety Endo: Denies: excessive urination Jose G/Lymph: Denies: easy bruising All/Imm: Denies: hives Medications/Allergies Allergies Allergy/AdvReac Type Severity Reaction Status Date / Time cephalexin [From Keflex] Allergy ALGY-Hives Verified 05/19/19 20:47 PFSH Acute PFSH: Medical History Epilepsy Glucose intolerance Hypothyroidism Obesity Smoker Surgical History (Updated 07/17/19 @ 06:42 by Christi Dunne MD) H/O umbilical hernia repair History of appendectomy Family History (Updated 07/17/19 @ 06:43 by Christi Dunne MD) Father Family history of premature coronary artery disease Diabetes Brother Family history of premature coronary artery disease Other Stroke Social History (Updated 07/17/19 @ 06:44 by Christi Dunne MD) Smoking and tobacco status: current every day smoker cigarettes Packs smoked per day: 1 Years cigarettes smoked: 20 Alcohol intake: never Substance/Drug Use: current Substance/Drug use frequency: few times a month Household members: spouse Housing: House Vitals/I&O/Wt Last Vital Signs Pulse 72 07/17/19 05:52 Resp 14 07/17/19 05:52 BP 136/78 07/17/19 05:52 Pulse Ox 98 07/17/19 05:52 Weight last 48 hrs Weight 108.862 kg Physical Exam Narrative: EXAM NARRATIVE: Obese male sitting comfortably in his bed with Nitropaste on his chest, No epigastric distress, no active chest pain, S1, S2, no JVD or heart failure Abdomen soft, distended, bowel sound present, which obesity, Alert oriented x3, GCS 15 Nonfocal exam Lungs are clear to auscultation Poor hygiene with excessively dry skin His speech is very slow and delayed which is usual for him Appropriate mood and affect Data : 07/16/19 23:46 07/16/19 23:46 A&P Assessment and plan (1) Chest pain: Status: Acute Code(s): R07.9 - Chest pain, unspecified Additional A&P Information Atypical chest pain Reproducible, substernal, exertional chest pain Considering family history of premature coronary disease, will admit him to monitor for any development of further symptoms, Baseline troponin 50, 6-hour troponin 52, EKG is not showing any ischemic changes however T waves are flat in anterolateral leads, We will get an echo and if it is showing any abnormal wall motion will consult cardiology Check TSH, A1c, lipid panel Patient was counseled on smoking cessation and benefits to his health Glucose intolerant range: Sliding scale Hypothyroidism: Continue levothyroxine Patient is full code Attestations Medical Necessity Statement*: Anticipating discharge less than 48 hours after ruling out cardiac etiology for chest pain Time Spent in Patient Care: 35 Coding Level of Care Code Acute Basting Cleaner for Marva Bunn Diagnoses Chest pain R07.9
[2019-07-17] MEDS: morphine 4 mg/mL SDV 1 mL IVP (06:18)
[2019-07-17] MEDS: nitroglycerin 1 gm/inch oint Pkt 0.5 INCH TOPICAL (06:18)
--- NOTE | 2019-07-17 06:38 | PC.NURSE ---
PATIENT GOWNED AND HOSPITALIST CONSULTED WITH PATIENT IN ROOM
--- NOTE | 2019-07-17 08:02 | USCV_ITS ---
Chico Alonso Age: 54 Gender: M : 1965 Exam Date: 07/17/2019 09:55 Ordering Phys: Christi Dunne MD Technologist: Yaneli Oro Exam Location: [facility] Indication: Chest pain BP: 143 / 88 HR: 57 Rhythm: Sinus Technical Quality: Adequate MEASUREMENTS (Male / Female) Normal Values 2D ECHO LV Diastolic Diameter PLAX 4.0 cm 4.2 - 5.9 / 3.9 - 5.3 cm LV Systolic Diameter PLAX 2.0 cm LV Chamber Size 3.7 cm IVS Diastolic Thickness 2.2 cm 0.6 - 1.0 / 0.6 - 0.9 cm IVS Systolic Thickness 2.8 cm LVPW Diastolic Thickness 1.5 cm 0.6 - 1.0 / 0.6 - 0.9 cm LVPW Systolic Thickness 2.3 cm RV Chamber Size 2.5 cm LVOT Diameter 2.1 cm LV Ejection Fraction 2D Teich 82.1 % LV Ejection Fraction MOD 2C 79.7 % LV Ejection Fraction 2C AL 81.5 % LA Diameter 3.6 cm LA Width 3.1 cm LA Height 4.6 cm RA Width 2.6 cm RA Height 4.5 cm Aorta at Sinotubular Diameter 2.6 cm M-MODE LV Diastolic Diameter MM 4.6 cm 4.2 - 5.9 / 3.9 - 5.3 cm LV Systolic Diameter MM 2.0 cm LV Ejection Fraction MM Teich 87.2 % IVS Diastolic Thickness MM 1.8 cm 0.6 - 1.0 / 0.6 - 0.9 cm IVS Systolic Thickness MM 2.3 cm LVPW Diastolic Thickness MM 1.8 cm 0.6 - 1.0 / 0.6 - 0.9 cm LVPW Systolic Thickness MM 2.3 cm RV Diastolic Diameter MM 1.1 cm Aortic Annulus Diameter 3.6 cm LA Ao Ratio MM 1.0 MV E Point Septal Separation 0.3 cm DOPPLER AV Peak Velocity 129.0 cm/s LVOT Peak Velocity 128.0 cm/s AV Area Cont Eq vti 3.6 cm squared AV Area Cont Eq pk 3.5 cm squared MV Area PHT 3.7 cm squared Mitral E to A Ratio 1.2 MV E' Velocity 6.0 cm/s Mitral E to MV E' Ratio 12.8 Mitral E to LV E' Lateral Ratio 10.9 Mitral E to LV E' Septal Ratio 15.5 TV Peak E Velocity 69.0 cm/s Right Atrial Pressure 8.0 mmHg PV Peak Velocity 75.0 cm/s RV Acceleration Time 0.1 s RV Ejection Time 0.4 s RV AcT/ET 0.3 FINDINGS Left Ventricle Normal left ventricular cavity size. Normal left ventricular systolic function. No regional wall motion abnormalities. Left ventricular ejection fraction is estimated at 65 %. Moderate left ventricular hypertrophy of concentric type. Grade II/IV diastolic dysfunction, moderately elevated filling pressures. Right Ventricle The right ventricle is normal in size and function. RVSP could not be calculated due to incomplete tricuspid regurgitation velocity profile. Right Atrium The right atrium is normal in size. Left Atrium The left atrium is normal in size. Mitral Valve Structurally normal mitral valve. No mitral valve stenosis. No mitral valve regurgitation. There appeared to be subvalvular rudimentary structure, most likely subvalvular apparatus.no mitral valve regurgitation. Aortic Valve Structurally normal aortic valve without significant sclerosis or stenosis. There is no aortic regurgitation. Tricuspid Valve Structurally normal tricuspid valve without significant stenosis or regurgitation. Pulmonic Valve Structurally normal pulmonic valve without significant stenosis. There is no pulmonic regurgitation. Pericardium Normal pericardium without effusion. Aorta Normal ascending aorta dimension. CONCLUSIONS 1-Normal left ventricular cavity size. Normal left ventricular systolic function. No regional wall motion abnormalities. Left ventricular ejection fraction is estimated at 65 %. Moderate left ventricular hypertrophy of concentric type. Grade II/IV diastolic dysfunction, moderately elevated filling pressures. 2-The right ventricle is normal in size and function. RVSP could not be calculated due to incomplete tricuspid regurgitation velocity profile. 3-There is no pericardial effusion. 4-No significant valve abnormalities. 5-Right atrial pressure is around 5 mm of mercury. 6-There are no prior echocardiogram studies to compare. Christi Marion MD (Electronically Signed) Final Date: 17 July 2019 17:56 S
[2019-07-17] MEDS: pantoprazole DR 40 mg Tablet PO (08:27)
[2019-07-17] MEDS: levothyroxine 100 mcg Tablet 200 MCG PO (08:27)
[2019-07-17] MEDS: enoxaparin 40 mg/0.4 mL Syringe SUBCUT (08:28)
[2019-07-17 08:51] LABS: Chol HDL Ratio 5.75 mg/dL (1.0-5.00); Cholesterol 161 mg/dL (0-200); HDL Cholesterol 28 mg/dL (60-100); LDL Cholesterol Calculated 64 mg/dL (50-129); LDL HDL Ratio 2.29 RATIO (0.00-3.22); Thyroid Stimulating Hormone 26.56 uIU/mL (0.27-4.20); Triglycerides 346 mg/dL (0-150)
[2019-07-17 09:03] LABS: Estmated Average Glucose 128; Hemoglobin A1C 6.1 % (4.0-6.0)
[2019-07-17] MEDS: morphine 4 mg/mL SDV 1 mL 1 MG IVP ×2 (09:27→14:34)
--- NOTE | 2019-07-17 19:26 | PM.DCS ---
Discharge Providers Date of Admission: 07/17/19 06:14 Date of Discharge: July 17, 2019 Attending Provider at Admission: Christi Dunne MD Attending Provider at Discharge: Jess Canada MD Primary Care Provider: Dorita Flaherty Diagnoses at Discharge Discharge Diagnosis (1) Chest pain: Status: Acute Reason for Visit Reason for Visit: Reason For Visit: CHEST PAIN Hospital Course Discharge Summary: Alonso Golden is a 54 year old male who carries diagnosis of hypothyroidism, glucose intolerance, obesity, active smoker, family history of coronary disease came in with chief complaint of chest pain, associated with shortness of breath, it lasted for 30 minutes, it made him worried, he has had multiple ER visits secondary to similar complaints in the past, he came to the ER, diagnostics showed normal EKG, 6-hour troponin trended down from 59-to 52, baseline troponin 50. The next day, his pain resolved. He also endorsed a history of post nasal drip, dry cough, and him having URI symptoms ~3 weeks prior. Since then he felt winded , did not take inhalers. His echocardiogram was unremarkable. Overall symptoms appeared more consistent with bronchitis/reactive airway disease. It was discussed that to r/o cardiac causes, a stress test woulbe be the next step, however he declined to wait until Friday for the same (today is Friday) and elected to go home with f/up with his PCP early next week. He was prescribed an albuterol inhaler and referred for a PFT. Physical Exam Narrative: EXAM NARRATIVE: GEN: Awake, alert and oriented, no acute distress CVS: S1S2 N RS: CTA B/L Abd: Soft, nt/nd , bs+ MANAGER INTERN: no focal neuro deficits Discharge Data Data Completed and Pending: Completed Studies During Hospitalization Category Date Time Status XR chest 1V scott ble [id number] Stat Exams 07/16/19 23:39 Completed CV echo complete* [id number] Urgent Ultrasound 07/17/19 08:02 Completed Labs from last 24 hours 07/17/19 07/17/19 07/16/19 05:47 01:40 23:46 WBC RBC Hgb Hct MCV MCH MCHC RDW Plt Count MPV Neut % (Auto) Lymph % (Auto) [place] % (Auto) Eos % (Auto) Baso % (Auto) Neut # (Auto) Lymph # (Auto) [place] # (Auto) Eos # (Auto) Baso # (Auto) Nucleated RBC % (a uto) Nucleated RBCs # Sodium Potassium Chloride Carbon Dioxide Anion Gap BUN Creatinine GFR Calculation Glucose Estimat Average Gl ucose Hemoglobin A1c Calcium Total Bilirubin AST ALT Alkaline Phosphata se Troponin I 6 Hour 52.47 H Troponin I Hi Sens Del 2.47 Troponin T Baselin e Troponin T 120 Min [place] 59.27 H Delta Troponin T 9.27 Total Protein Albumin Globulin Triglycerides 346 H Cholesterol 161 LDL Cholesterol, C alc 64 HDL Cholesterol 28 L LDL/HDL Ratio 2.29 Cholesterol/HDL Ra neena 5.75 H TSH 26.56 H Influenza Type A A g POC Influenza B Ag 07/16/19 07/16/19 07/16/19 23:46 23:46 23:46 WBC 5.5 RBC 3.77 L Hgb 11.6 L Hct 36.1 L MCV 95.8 H MCH 30.8 MCHC 32.1 RDW 13.4 Plt Count 94 L MPV 9.8 Neut % (Auto) 64.7 Lymph % (Auto) 17.0 [place] % (Auto) 9.7 Eos % (Auto) 4.8 Baso % (Auto) 1.1 Neut # (Auto) 3.5 Lymph # (Auto) 0.9 [place] # (Auto) 0.5 Eos # (Auto) 0.3 Baso # (Auto) 0.1 Nucleated RBC % (a uto) 0 Nucleated RBCs # 0.0 Sodium 137 Potassium 3.9 Chloride 97 L Carbon Dioxide 29 Anion Gap 14.9 BUN 17 Creatinine 1.2 GFR Calculation 63.6 L Glucose 235 H Estimat Average Gl ucose 128 Hemoglobin A1c 6.1 H Calcium 9.5 Total Bilirubin 0.7 AST 47 H ALT 30 Alkaline Phosphata se 112 Troponin I 6 Hour Troponin I Hi Sens Del Troponin T Baselin e Troponin T 120 Min [place] Delta Troponin T Total Protein 7.6 Albumin 3.8 Globulin 3.8 Triglycerides Cholesterol LDL Cholesterol, C alc HDL Cholesterol LDL/HDL Ratio Cholesterol/HDL Ra neena TSH Influenza Type A A g POC Influenza B Ag 07/16/19 07/16/19 23:46 23:43 WBC RBC Hgb Hct MCV MCH MCHC RDW Plt Count MPV Neut % (Auto) Lymph % (Auto) [place] % (Auto) Eos % (Auto) Baso % (Auto) Neut # (Auto) Lymph # (Auto) [place] # (Auto) Eos # (Auto) Baso # (Auto) Nucleated RBC % (a uto) Nucleated RBCs # Sodium Potassium Chloride Carbon Dioxide Anion Gap BUN Creatinine GFR Calculation Glucose Estimat Average Gl ucose Hemoglobin A1c Calcium Total Bilirubin AST ALT Alkaline Phosphata se Troponin I 6 Hour Troponin I Hi Sens Del Troponin T Baselin e 50 H Troponin T 120 Min [place] Delta Troponin T Total Protein Albumin Globulin Triglycerides Cholesterol LDL Cholesterol, C alc HDL Cholesterol LDL/HDL Ratio Cholesterol/HDL Ra neena TSH Influenza Type A A g Negative POC Influenza B Ag Negative Vitals: Last Vital Signs Temp 98.3 F 07/17/19 16:16 Pulse 65 07/17/19 16:16 Resp 18 07/17/19 16:16 BP 141/87 07/17/19 16:16 Pulse Ox 95 07/17/19 11:34 Discharge Plan Discharge Patient Disposition: Home, Self-Care Condition: Stable Prescriptions: New albuterol sulfate 90 mcg/actuation HFA aerosol inhaler 1 inh INHALATION Q6H PRN (Reason: shortness of breath) Qty: 6.7 RF: 0 Continued metformin [Glucophage] 500 mg Tablet 500 mg PO BID RF: 0 omeprazole 40 mg Capsule,Delayed Release(Dr/Ec) 40 mg PO DAILY RF: 0 levothyroxine 200 mcg Capsule 200 mcg PO DAILY RF: 0 methocarbamol [Robaxin-750] 750 mg tablet 750 mg PO Q6H Qty: 30 RF: 0 Discontinued naproxen [EC-Naprosyn] 500 mg tablet,delayed release (DR/EC) 500 mg PO BID PRN (Reason: pain) Qty: 20 RF: 0 Discharge Orders: Discharge Order (Routine); Ordered 07/17/19 Ordered By: Jess Canada Other Ambulatory Orders: Pulmonary Function Screen with Bronchodilator (Routine) Timeframe: 1 Week Facility: [facility] - Location: Respiratory Therapy Ordered By: Jess Canada Referrals: Dorita Flaherty [Primary Care Provider] - 07/21/19 10:15 am () Discharge Diet: Usual diet Discharge Activity: Resume usual activity Patient Instructions: Albuterol (By breathing), Heart Healthy Diet, Chest Pain (DC), Cigarette Smoking and Your Health (GEN) Discharge Date/Time: 07/17/19 16:10 Discharge Attestations Time Spent in Discharge Care*: less than 30 min Quality Metrics Clinical Quality Measures During this hospital stay, did patient experience: None Coding Level of Care Code Acute Punchboard Stuffer for Chg Fwd Diagnoses Chest pain R07.9
== END 2019-07-17 16:10 | disposition home or self-care (01) ==
LOC: ER 07-17 05:54 → MEDSURG 07-17 07:06
PROVIDERS: Physician Assistant; Admitting Provider Internal Medicine; Emergency Provider Emergency Medicine; Family Provider Internal Medicine; PCP Nurse Practitioner Family; Visit Provider Student in an Organized Health Care Education/Training Program
DX: R07.9 Chest pain, unspecified (principal); E03.9 Hypothyroidism, unspecified; E66.9 Obesity, unspecified; Z68.34 Body mass index [BMI] 34.0-34.9, adult; F17.210 Nicotine dependence, cigarettes, uncomplicated; Z82.49 Family history of ischemic heart disease and other diseases of the circulatory system; Z82.3 Family history of stroke
CPT/HCPCS: 12345; 36415; 71045; 80053; 80061; 83036; 84443; 84484; 85025; 87804; 93005; 93306; 96372; 96374; 96375; 96376; 99283; 99285; G0378; J1650; J2270

== ENCOUNTER 2019-08-08 07:17 | Emergency (ER) | payer MEDICAID, SELFPAY ==
[2019-08-08 07:18] VITALS: BP 180/110; PULSE 90; RESP 16; TEMP 36.7; O2SAT 99; BMI 35.9
--- NOTE | 2019-08-08 07:19 | W.ED.SEIZURE ---
HPI - Seizure General: Chief Complaint: General Medical Stated Complaint: FEELS LIKE HE MAY HAVE A SEIZURE Time Seen by Provider: 08/08/19 07:19 History of Present Illness: HPI Narrative: 54-year-old male presents via EMS with a complaint of aura of a seizure, but he has not actually had a seizure. Patient has had seizures in the past has not had any for several years now he continues to take all of his prescribed medications is not had any interruptions in his medicines recently or changes in the dosage. Denies any recent use of alcohol or drugs. Associated symptoms: Deny chest pain, chills, fever(s) or malaise Review of Systems Const: Denies: fever, chills, body aches, change in appetite, fatigue or malaise ENMT: Denies: throat pain, ear pain, nasal discharge or nasal congestion Card: Denies: chest pain, edema, shortness of breath on exertion or shortness of breath when lying down Resp: Denies: shortness of breath, productive cough or non-productive cough GI: Denies: abdominal pain, nausea, vomiting, vomiting blood, coffee grounds in vomit, diarrhea, constipation, bloating, blood in stool or black tarry stool : Denies: flank pain, painful urination, urinary frequency or urinary urgency Skin/Breast: Denies: rash or itching PFSH ED PFSH: Medical History Epilepsy Glucose intolerance Hypothyroidism Obesity Smoker Social History Smoking and tobacco status: current every day smoker cigarettes Packs smoked per day: 1 Years cigarettes smoked: 20 Alcohol intake: never Household members: spouse Housing: House Physical Exam Const: COMMON NORMALS: no apparent distress GENERAL APPEARANCE: cooperative and comfortable ORIENTATION/CONSCIOUSNESS: Yes awake, Yes oriented to person, Yes oriented to place and Yes oriented to time HENMT: COMMON NORMALS: normocephalic, head/scalp atraumatic, hearing grossly normal bilaterally, external ears normal, EAC's normal, TM's normal bilaterally, nasal mucous membranes and turbinates normal, moist oral mucous membranes and oropharynx normal HEAD & SCALP: normocephalic and atraumatic NOSE: nasal mucous membranes and turbinates normal EXTERNAL EAR: Yes external ears normal EXTERNAL AUDITORY CANAL: EAC's normal TYMPANIC MEMBRANE: TM's normal bilaterally Eye: COMMON NORMALS: PERRL, EOMs intact bilaterally, conjunctivae normal and no scleral icterus CONJUNCTIVA: Yes conjunctivae normal PUPIL: Yes PERRL Neck/C-Spine: COMMON NORMALS: full ROM, no lymphadenopathy, supple and no JVD Lymph: LYMPHATIC: no lymphadenopathy noted and no lymphedema noted Resp: COMMON NORMALS: normal respiratory effort, no retractions, no use of accessory muscles and clear to auscultation bilaterally AUSCULTATION: clear to auscultation bilaterally Cardio: COMMON NORMALS: no JVD, regular rate, regular rhythm and no murmurs RATE: regular rate RHYTHM: regular rhythm GI: COMMON NORMALS: soft to palpation and no hepatosplenomegaly AUSCULTATION: Yes normoactive bowel sounds PALPATION: Yes soft, No tender, No guarding and Yes no hepatosplenomegaly Extremity: COMMON NORMALS: normal to inspection, normal capillary refill, no clubbing, cyanosis or edema, no calf tenderness and no pedal edema Neuro: SENSORIUM/ORIENTATION: Yes oriented to person, Yes oriented to place and Yes oriented to time Skin: COMMON NORMALS: no rashes or lesions noted GENERAL SKIN EXAM: no rashes or lesions noted Course Vital Signs: Vital signs: Vital Signs Temperature 98.1 F 08/08/19 07:18 Pulse Rate 70 08/08/19 09:00 Respiratory Rate 15 08/08/19 09:00 Blood Pressure 144/89 08/08/19 09:00 Pulse Oximetry 96 08/08/19 09:00 MDM - Seizure MDM Narrative: Medical decision making narrative: She does he does have some chronic back pain that was his only identifiable objective complaint while in the emergency room is not have a seizure at any point was here his valproic acid level is therapeutic we will go ahead and discharge him home follow-up as needed return to the emergency room if as any further problems or has actually has a seizure. Lab Data: Labs: Lab Results 08/08/19 08/08/19 Range/Units 07:47 07:47 WBC 5.3 (4.0-10.0) 10^3/ uL RBC 4.08 L (4.1-5.3) 10^6/u L Hgb 12.7 (11.7-16.6) g/dL Hct 39.1 L (42.0-52.0) % MCV 95.8 H (80-94) fL MCH 31.1 (28.0-34.0) pg MCHC 32.5 (30.0-36.0) g/dL RDW 12.6 (12.1-15.1) % Plt Count 112 L (130-400) 10^3/c mm MPV 9.8 (7.4-10.4) fL Neut % (Auto) 62.7 % Lymph % (Auto) 19.3 % [place] % (Auto) 10.0 % Eos % (Auto) 5.7 % Baso % (Auto) 1.7 % Neut # (Auto) 3.3 (1.8-7.7) 10^3/u L Lymph # (Auto) 1.0 (0.8-4.8) 10^3/u L [place] # (Auto) 0.5 (0.2-0.9) 10^3/u L Eos # (Auto) 0.3 (0.0-0.8) 10^3/u L Baso # (Auto) 0.1 (0.0-0.1) 10^3/u L Nucleated RBC % (a uto) 0 % Nucleated RBCs # 0.0 /100WBC Sodium 139 (136-145) mmol/L Potassium 4.2 (3.5-5.1) mmol/L Chloride 100 (98-107) mmol/L Carbon Dioxide 30 H (22-29) mmol/L Anion Gap 13.2 (5-19) BUN 11 (6-20) mg/dL Creatinine 1.1 (0.7-1.2) mg/dL GFR Calculation 70.3 L (90-130) mL/min Glucose 173 H (65-115) mg/dL Calculated Osmolal ity 288 (285-295) mOsm/k g Calcium 9.7 (8.5-10.5) mg/dL Magnesium 1.7 (1.7-2.3) mg/dL Total Bilirubin 0.8 (0.15-1.2) mg/dL AST 38 (0-40) U/L ALT 17 (0-41) U/L Alkaline Phosphata se 84 (40-130) IU/L Total Protein 8.0 (6.6-8.7) g/dL Albumin 3.9 (3.5-5.2) g/dL Globulin 4.1 (1.3-4.6) g/dL Valproic Acid 68.8 (50-100) mcg/mL Discharge Plan Discharge Patient Disposition: Home, Self-Care Clinical Impression: History of seizures, Chronic back pain Condition: Stable Prescriptions: New diclofenac sodium 75 mg tablet,delayed release (DR/EC) 75 mg PO Q12H PRN (Reason: pain) Qty: 20 RF: 0 No Action metformin [Glucophage] 500 mg Tablet 500 mg PO BID RF: 0 omeprazole 40 mg Capsule,Delayed Release(Dr/Ec) 40 mg PO DAILY RF: 0 levothyroxine 200 mcg Capsule 200 mcg PO DAILY RF: 0 albuterol sulfate 90 mcg/actuation HFA aerosol inhaler 1 inh INHALATION Q6H PRN (Reason: shortness of breath) Qty: 6.7 RF: 0 methocarbamol [Robaxin-750] 750 mg tablet 750 mg PO Q6H Qty: 30 RF: 0 Discharge Orders: Discharge Order (Routine); Ordered 08/08/19 Ordered By: Mendel Bush Referrals: Dorita Flaherty [Primary Care Provider] - Joseph Crespo DO [Family Provider] - Discharge Diet: Usual diet Discharge Activity: Increase activity as tolerated Discharge Date/Time: 08/08/19 09:01 Coding Level of Care Code ED Student Services Counselor for Marva Bunn
[2019-08-08 07:29] VITALS: BP 180/110; PULSE 76; RESP 15; O2SAT 98
[2019-08-08 07:52] LABS: Basophils # 0.1 10^3/uL (0.0-0.1); Basophils % 1.7 %; Eosinophils # 0.3 10^3/uL (0.0-0.8); Eosinophils % 5.7 %; Hematocrit 39.1 % (42.0-52.0); Hemoglobin 12.7 g/dL (11.7-16.6); Lymphocytes % 19.3 %; Mean Corpuscular HGB Conc 32.5 g/dL (30.0-36.0); Mean Corpuscular Hemoglobin 31.1 pg (28.0-34.0); Mean Corpuscular Volume 95.8 fL (80-94); Mean Platelet Volume 9.8 fL (7.4-10.4); Monocytes # 0.5 10^3/uL (0.2-0.9); Neutrophils # 3.3 10^3/uL (1.8-7.7); Neutrophils % 62.7 %; Nucleated Red Blood Cells % 0 %; Platelet Count 112 10^3/cmm (130-400); Red Blood Count 4.08 10^6/uL (4.1-5.3); Red Cell Distribution Width 12.6 % (12.1-15.1); White Blood Count 5.3 10^3/uL (4.0-10.0)
[2019-08-08 08:05] LABS: Alanine Aminotransferase 17 U/L (0-41); Albumin Level 3.9 g/dL (3.5-5.2); Alkaline Phosphatase 84 IU/L (40-130); Anion Gap 13.2 (5-19); Aspartate Amino Transferase 38 U/L (0-40); Blood Urea Nitrogen 11 mg/dL (6-20); Calcium 9.7 mg/dL (8.5-10.5); Carbon Dioxide 30 mmol/L (22-29); Chloride 100 mmol/L (98-107); Creatinine Clr Calc Pharmacy 99.0658; Globulin 4.1 g/dL (1.3-4.6); Glomerular Filtration Rate 70.3 mL/min (90-130); Glucose 173 mg/dL (65-115); Magnesium 1.7 mg/dL (1.7-2.3); Osmolality Calculated 288 mOsm/kg (285-295); Potassium 4.2 mmol/L (3.5-5.1); Sodium 139 mmol/L (136-145); Total Bilirubin 0.8 mg/dL (0.15-1.2); Valproic Acid Level 68.8 mcg/mL (50-100)
[2019-08-08] MEDS: ketorolac 60 mg/2 mL INJ IM (08:52)
[2019-08-08 09:00] VITALS: BP 144/89; PULSE 70; RESP 15; O2SAT 96
== END 2019-08-08 09:01 | disposition home or self-care (01) ==
PROVIDERS: Emergency Provider Family Medicine; Family Provider Internal Medicine; PCP Nurse Practitioner Family
DX: G40.909 Epilepsy, unspecified, not intractable, without status epilepticus (principal); M54.9 Dorsalgia, unspecified; G89.29 Other chronic pain; E03.9 Hypothyroidism, unspecified; E66.9 Obesity, unspecified; Z68.35 Body mass index [BMI] 35.0-35.9, adult; F17.210 Nicotine dependence, cigarettes, uncomplicated
CPT/HCPCS: 12345; 36415; 80053; 80164; 83735; 85025; 96372; 99281; 99283; J1885

== ENCOUNTER 2019-08-17 21:35 | Emergency (ER) | payer MEDICAID, SELFPAY ==
--- NOTE | 2019-08-17 21:37 | XR_ITS ---
WS: [id number] SHOULDER RIGHT TECHNIQUE: 3 views of the right shoulder CLINICAL INFORMATION: injury COMPARISON: None. FINDINGS: Normal acromioclavicular joint. Normal glenohumeral joint. Acromion is normal in appearance. Normal g lenoid. No evidence of acute fracture dislocation. XR/XR shoulder RT min 2V* [id number] IMPRESSION: Normal right shoulder.
[2019-08-17 21:42] VITALS: BP 185/116; PULSE 82; RESP 18; TEMP 37; O2SAT 95; BMI 34.4
--- NOTE | 2019-08-17 22:29 | W.ED.EXTPRO ---
HPI - Extremity Problem General: Chief complaint: Extremity Injury, Upper Stated complaint: r shoulder pain Time Seen by Provider: 08/17/19 22:21 Source: patient Mode of arrival: ambulatory Limitations: no limitations History of Present Illness: HPI Narrative: 54-year-old male states he was lifting a wheelchair 2 days ago and has had right upper back pain since then. Pain is over his rhomboid and is worse with palpation or movement. He denies any other injuries. States pain is 4 out of 10. Pain is sharp in nature. Onset (ago): day(s) Location: left Severity scale (1-10): 4 Quality: aching Relieving factors: rest Exacerbating factors: range of motion Associated symptoms: Deny chest pain, fever(s) or rash Review of Systems Const: Denies: fever, chills, body aches or change in appetite Eyes: Denies: blurry vision or eye discomfort ENMT: Denies: throat pain or dental pain Card: Denies: chest pain Resp: Denies: shortness of breath GI: Denies: abdominal pain, nausea, vomiting or diarrhea : Denies: painful urination Musc: Denies: neck pain or back pain Skin/Breast: Denies: rash Neuro: Denies: headache Psych: Denies: depression Jose G/Lymph: Denies: easy bruising All/Imm: Denies: hives PFSH ED PFSH: Medical History Epilepsy Glucose intolerance Hypothyroidism Obesity Smoker Social History Smoking and tobacco status: current every day smoker cigarettes Packs smoked per day: 1 Years cigarettes smoked: 20 Alcohol intake: never Household members: spouse Housing: House Physical Exam Const: COMMON NORMALS: no apparent distress, oriented x3 and healthy appearing HENMT: COMMON NORMALS: normocephalic and head/scalp atraumatic HEAD & SCALP: normocephalic and atraumatic Eye: COMMON NORMALS: PERRL and EOMs intact bilaterally PUPIL: Yes PERRL Neck/C-Spine: COMMON NORMALS: full ROM and supple Chest: COMMONS NORMALS: inspection of chest normal and palpation of chest normal Resp: COMMON NORMALS: normal respiratory effort, no retractions, no use of accessory muscles and clear to auscultation bilaterally AUSCULTATION: clear to auscultation bilaterally Cardio: COMMON NORMALS: regular rate, regular rhythm and no murmurs RATE: regular rate RHYTHM: regular rhythm GI: COMMON NORMALS: normal to inspection, nondistended, normoactive bowel sounds, soft to palpation, non-tender and no masses PALPATION: Yes soft Extremity: COMMON NORMALS: normal to inspection and full ROM NARRATIVE EXTREMITY EXAM: Full ROM of right arm. Point tender over right rhomboid muscle. Neuro: COMMON NORMALS: oriented x3, moves all extremities and no focal motor deficits Psych: COMMON NORMALS: mental status grossly normal, thought process normal and cooperative THOUGHT PROCESS: normal thought process Skin: COMMON NORMALS: no rashes or lesions noted and no wounds GENERAL SKIN EXAM: no rashes or lesions noted Course Vital Signs: Vital signs: Vital Signs Temperature 98.6 F 08/17/19 21:42 Pulse Rate 82 08/17/19 21:42 Respiratory Rate 18 08/17/19 21:42 Blood Pressure 185/116 08/17/19 21:42 Pulse Oximetry 95 08/17/19 21:42 MDM - Extremity (Nontraumatic) MDM Narrative: Medical decision making narrative: Patient presents with back pain is likely a strain of his rhomboid muscle. Patient is well-appearing here and is stable for discharge. Will prescribe him Naprosyn and Robaxin. He is return if worsening. Imaging Data^: xr r shoulder: Attestation: I personally reviewed and interpreted this imaging study as follows: My impression: no acute abnormality Discharge Plan Discharge Patient Disposition: Home, Self-Care Clinical Impression: Back pain Qualifiers: Back pain location: thoracic back pain Chronicity: acute Back pain laterality: left Qualified Code(s): M54.6 - Pain in thoracic spine Condition: Stable Prescriptions: New Robaxin-750 750 mg tablet 750 mg PO Q6H Qty: 30 RF: 0 EC-Naprosyn 500 mg tablet,delayed release (DR/EC) 500 mg PO BID PRN (Reason: pain) Qty: 20 RF: 0 No Action metformin [Glucophage] 500 mg Tablet 500 mg PO BID RF: 0 omeprazole 40 mg Capsule,Delayed Release(Dr/Ec) 40 mg PO DAILY RF: 0 levothyroxine 200 mcg Capsule 200 mcg PO DAILY RF: 0 albuterol sulfate 90 mcg/actuation HFA aerosol inhaler 1 inh INHALATION Q6H PRN (Reason: shortness of breath) Qty: 6.7 RF: 0 methocarbamol [Robaxin-750] 750 mg tablet 750 mg PO Q6H Qty: 30 RF: 0 diclofenac sodium 75 mg tablet,delayed release (DR/EC) 75 mg PO Q12H PRN (Reason: pain) Qty: 20 RF: 0 Discharge Orders: Discharge Order (Routine); Ordered 08/17/19 Ordered By: Kerry Jeter Referrals: Dorita Flaherty [Primary Care Provider] - Joseph Crespo DO [Family Provider] - 1-3 days Discharge Diet: Advance as tolerated Discharge Activity: Resume usual activity Patient Instructions: Back Pain (ED) Coding Level of Care Code ED Stenotype Machine Operator for Marva Bunn
[2019-08-17] MEDS: naproxen 500 mg Tablet PO (22:37)
== END 2019-08-17 22:41 | disposition home or self-care (01) ==
PROVIDERS: Emergency Provider Emergency Medicine; Family Provider Internal Medicine; PCP Nurse Practitioner Family
DX: M54.6 Pain in thoracic spine (principal); M25.511 Pain in right shoulder; F17.210 Nicotine dependence, cigarettes, uncomplicated
CPT/HCPCS: 12345; 73030; 99281; 99283

== ENCOUNTER 2019-09-10 16:19 | Emergency (ER) | payer MEDICAID, SELFPAY ==
[2019-09-10 16:22] VITALS: BP 152/92; PULSE 82; RESP 16; TEMP 36.6; O2SAT 95; BMI 34.4
[2019-09-10 16:27] VITALS: RESP 16
--- NOTE | 2019-09-10 16:29 | ED_ITS ---
HPI - Back Pain/Injury General: Chief Complaint: Back Pain/Injury Stated Complaint: BACK PAIN Time Seen by Provider: 09/10/19 16:22 Source: patient Mode of arrival: ambulatory Limitations: no limitations History of Present Illness: HPI Narrative: 54-year-old male with a history of chronic back pain states he has had increased pain over the last 3 to 4 days. He denies any bowel or bladder incontinence. He denies any difficulty walking. He states he has an appoint with pain management next week. He denies any fevers. MD elicited complaint: back pain Pertinent past history: prior back pain Onset (ago): day(s) Timing: constant Severity: moderate Similar Symptoms Previously: Yes Location: lumbar spine Radiation: none Exacerbating factors: none Relieving factors: none Associated symptoms: Deny abdominal pain, chills, dysuria, fever(s), nausea or vomiting Review of Systems Const: Denies: fever, chills, body aches or change in appetite Eyes: Denies: blurry vision or eye discomfort ENMT: Denies: throat pain or dental pain Card: Denies: chest pain Resp: Denies: shortness of breath GI: Denies: abdominal pain, nausea, vomiting or diarrhea : Denies: painful urination Musc: Reports: back pain; Denies: neck pain Skin/Breast: Denies: rash Neuro: Denies: headache Psych: Denies: depression Jose G/Lymph: Denies: easy bruising All/Imm: Denies: hives PFSH ED PFSH: Medical History Epilepsy Glucose intolerance Hypothyroidism Obesity Smoker Surgical History H/O umbilical hernia repair History of appendectomy Family History Father Family history of premature coronary artery disease Diabetes Brother Family history of premature coronary artery disease Other Stroke Social History Smoking and tobacco status: current every day smoker cigarettes Packs smoked per day: 1 Years cigarettes smoked: 20 Alcohol intake: never Household members: spouse Housing: House Physical Exam Const: COMMON NORMALS: no apparent distress, oriented x3 and healthy appearing HENMT: COMMON NORMALS: normocephalic and head/scalp atraumatic HEAD & SCALP: normocephalic and atraumatic Eye: COMMON NORMALS: PERRL and EOMs intact bilaterally PUPIL: Yes PERRL Neck/C-Spine: COMMON NORMALS: full ROM and supple Chest: COMMONS NORMALS: inspection of chest normal and palpation of chest normal Resp: COMMON NORMALS: normal respiratory effort, no retractions, no use of accessory muscles and clear to auscultation bilaterally AUSCULTATION: clear to auscultation bilaterally Cardio: COMMON NORMALS: regular rate, regular rhythm and no murmurs RATE: regular rate RHYTHM: regular rhythm GI: COMMON NORMALS: normal to inspection, nondistended, normoactive bowel sounds, soft to palpation, non-tender and no masses PALPATION: Yes soft Back/Pelvis: OTHER: Paraspinal tenderness to low back with no midline tenderness. No saddle anesthesia. Extremity: COMMON NORMALS: normal to inspection and full ROM Neuro: COMMON NORMALS: oriented x3, moves all extremities and no focal motor deficits Psych: COMMON NORMALS: mental status grossly normal, thought process normal and cooperative THOUGHT PROCESS: normal thought process Skin: COMMON NORMALS: no rashes or lesions noted and no wounds GENERAL SKIN EXAM: no rashes or lesions noted Course Vital Signs: Vital signs: Vital Signs Temperature 97.9 F 09/10/19 16:22 Pulse Rate 82 09/10/19 16:22 Respiratory Rate 16 09/10/19 16:27 Blood Pressure 152/92 09/10/19 16:22 Pulse Oximetry 95 09/10/19 16:22 MDM - Back Pain/Injury MDM Narrative: Medical decision making narrative: Patient presents here with low back pain that is chronic in nature. He has no signs of cord compression or epidural abscess. Patient is stable for discharge and is to follow-up with primary care doctor in 3 to 5 days and return if worsening. Patient understands and agrees to plan. Discharge Plan Discharge Patient Disposition: Home, Self-Care Clinical Impression: Low back pain Qualifiers: Chronicity: chronic Back pain laterality: bilateral Sciatica presence: without sciatica Qualified Code(s): M54.5 - Low back pain Condition: Stable Prescriptions: New Robaxin-750 750 mg tablet 750 mg PO Q6H Qty: 30 RF: 0 EC-Naprosyn 500 mg tablet,delayed release (DR/EC) 500 mg PO BID PRN (Reason: pain) Qty: 20 RF: 0 No Action metformin [Glucophage] 500 mg Tablet 500 mg PO BID RF: 0 omeprazole 40 mg Capsule,Delayed Release(Dr/Ec) 40 mg PO DAILY RF: 0 levothyroxine 200 mcg Capsule 200 mcg PO DAILY RF: 0 albuterol sulfate 90 mcg/actuation HFA aerosol inhaler 1 inh INHALATION Q6H PRN (Reason: shortness of breath) Qty: 6.7 RF: 0 methocarbamol [Robaxin-750] 750 mg tablet 750 mg PO Q6H Qty: 30 RF: 0 diclofenac sodium 75 mg tablet,delayed release (DR/EC) 75 mg PO Q12H PRN (Reason: pain) Qty: 20 RF: 0 Robaxin-750 750 mg tablet 750 mg PO Q6H Qty: 30 RF: 0 EC-Naprosyn 500 mg tablet,delayed release (DR/EC) 500 mg PO BID PRN (Reason: pain) Qty: 20 RF: 0 Discharge Orders: Discharge Order (Routine); Ordered 09/10/19 Ordered By: Kerry Jeter Referrals: Dorita Flaherty [Primary Care Provider] - Joseph Crespo DO [Family Provider] - Discharge Diet: Advance as tolerated Discharge Activity: Resume usual activity Patient Instructions: Chronic Back Pain (ED) Coding Level of Care Code ED Archival Studies Professor for Marva Bunn
[2019-09-10] MEDS: HYDROcodone-acetaminophen 7.5-325 mg Tablet 1 TAB PO (16:31)
[2019-09-10 16:39] VITALS: PULSE 82; RESP 16; O2SAT 97
== END 2019-09-10 16:40 | disposition home or self-care (01) ==
LOC: ER 16:29
PROVIDERS: Emergency Provider Emergency Medicine; Family Provider Internal Medicine; PCP Nurse Practitioner Family
DX: G89.29 Other chronic pain (principal); M54.5 Low back pain; F17.210 Nicotine dependence, cigarettes, uncomplicated; E03.9 Hypothyroidism, unspecified
CPT/HCPCS: 12345; 99281; 99283

== ENCOUNTER 2019-10-03 18:34 | Emergency (ER) | payer MEDICAID, SELFPAY ==
[2019-10-03 19:11] VITALS: BP 163/85; PULSE 87; RESP 16; TEMP 36.8; O2SAT 94; BMI 33.0
--- NOTE | 2019-10-03 19:50 | ED_ITS ---
HPI - General Adult General: Chief complaint: General Medical Stated complaint: dog bite Time Seen by Provider: 10/03/19 19:31 Source: patient Mode of arrival: ambulatory Limitations: no limitations History of Present Illness: HPI narrative: Patient comes in today for complaints of injury to the right forearm. Patient reports that his dog caught him with the claw. Patient was concerned he may need stitches. Patient appears well. Patient reports his immunizations are up-to-date. Review of Systems General: Reports: 10 or more systems reviewed and unremarkable except in HPI and below Skin/Breast: Reports: other (Laceration) PFS ED PFSH: Medical History Epilepsy Glucose intolerance Hypothyroidism Obesity Smoker Surgical History H/O umbilical hernia repair History of appendectomy Family History Father Family history of premature coronary artery disease Diabetes Brother Family history of premature coronary artery disease Other Stroke Social History Smoking and tobacco status: current every day smoker cigarettes Packs smoked per day: 1 Years cigarettes smoked: 20 Alcohol intake: never Household members: spouse Housing: House Physical Exam Const: COMMON NORMALS: no acute distress and patient oriented x3 GENERAL APPEARANCE: cooperative HENMT: COMMON NORMALS: normocephalic, TM's normal bilaterally and Normal external nose present HEAD & SCALP: normal to inspection and normocephalic NOSE: Normal external nose present TYMPANIC MEMBRANE: TM's normal bilaterally MOUTH: Normal oral and palatal mucosa present THROAT: posterior oropharynx normal Eye: GENERAL EYE: appearance normal, both eyes and all related structures Neck/C-Spine: COMMON NORMALS: full ROM Lymph: LYMPHATIC: no lymphadenopathy noted Chest: COMMONS NORMALS: normal inspection of the chest Resp: COMMON NORMALS: normal respiratory effort EFFORT & INSPECTION: Yes able to speak in complete sentences Cardio: COMMON NORMALS: regular rate and regular rhythm RATE: regular rate RHYTHM: regular rhythm GI: COMMON NORMALS: non-tender : COMMON NORMALS: Yes no CVA tenderness BLADDER/KIDNEY EXAM: Yes no CVA tenderness Back/Pelvis: COMMON NORMALS: no CVA tenderness and thoracic and lumbar spine normal to inspection Extremity: COMMON NORMALS: normal to inspection Neuro: COMMON NORMALS: patient oriented x3 and moves all extremities Psych: COMMON NORMALS: mental status grossly normal and cooperative Skin: NARRATIVE SKIN EXAM: Superficial 1 cm scratch/laceration to the right forearm. Wound is well approximated without any significant injury. Course Vital Signs: Vital signs: Vital Signs Temperature 98.3 F 10/03/19 19:11 Pulse Rate 87 10/03/19 19:11 Respiratory Rate 16 10/03/19 19:11 Blood Pressure 163/85 10/03/19 19:11 Pulse Oximetry 94 10/03/19 19:11 MDM - General Adult MDM Narrative: Medical decision making narrative: Patient comes in for injury to the right forearm. On exam we see a superficial laceration to the right forearm. No foreign body was noted, no tendon injury was noted, mild contusion was noted. Differential diagnosis includes but not limited to laceration, scratch, need for prophylaxis immunization. Wound was cleaned and covered with 2 Steri-Strips per patient's request. Wound was then dressed with a dressing and recommended to monitor for signs of infection. Patient reported understanding and agreed to plan. Discharge Plan Discharge Patient Disposition: Home, Self-Care Clinical Impression: Scratch of forearm Qualifiers: Encounter type: initial encounter Laterality: right Qualified Code(s): S50.811A - Abrasion of right forearm, initial encounter Condition: Stable Prescriptions: No Action metformin [Glucophage] 500 mg Tablet 500 mg PO BID RF: 0 omeprazole 40 mg Capsule,Delayed Release(Dr/Ec) 40 mg PO DAILY RF: 0 levothyroxine 200 mcg Capsule 200 mcg PO DAILY RF: 0 albuterol sulfate 90 mcg/actuation HFA aerosol inhaler 1 inh INHALATION Q6H PRN (Reason: shortness of breath) Qty: 6.7 RF: 0 Robaxin-750 750 mg tablet 750 mg PO Q6H Qty: 30 RF: 0 EC-Naprosyn 500 mg tablet,delayed release (DR/EC) 500 mg PO BID PRN (Reason: pain) Qty: 20 RF: 0 methocarbamol [Robaxin-750] 750 mg tablet 750 mg PO Q6H Qty: 30 RF: 0 diclofenac sodium 75 mg tablet,delayed release (DR/EC) 75 mg PO Q12H PRN (Reason: pain) Qty: 20 RF: 0 Robaxin-750 750 mg tablet 750 mg PO Q6H Qty: 30 RF: 0 EC-Naprosyn 500 mg tablet,delayed release (DR/EC) 500 mg PO BID PRN (Reason: pain) Qty: 20 RF: 0 Discharge Orders: Discharge Order (Routine); Ordered 10/03/19 Ordered By: Alexis Brian Referrals: Dorita Flaherty [Primary Care Provider] - Discharge Diet: Usual diet Discharge Activity: Increase activity as tolerated Activity Restrictions/Additional Instructions: Keep wound clean and dry for the 48 hours. Keep covered with a dressing for protection. Monitor for signs of infection such as fever or redness and pain to the area. Follow-up with primary care in 1 week. Return to the ER for high fever, redness or pain in the area of injury. Coding Level of Care Code ED Customer Data Technician for Marva Bunn Exam Comprehensive
== END 2019-10-03 20:12 | disposition home or self-care (01) ==
PROVIDERS: Emergency Provider Nurse Practitioner Family; PCP Nurse Practitioner Family
DX: S50.811A Abrasion of right forearm, initial encounter (principal); W54.8XXA Other contact with dog, initial encounter; F17.210 Nicotine dependence, cigarettes, uncomplicated; E03.9 Hypothyroidism, unspecified
CPT/HCPCS: 12345; 99282

== ENCOUNTER 2019-10-10 16:20 | Emergency (ER) | payer MEDICAID, SELFPAY ==
[2019-10-10 16:21] VITALS: BMI 33.8
--- NOTE | 2019-10-10 16:22 | XR_ITS ---
WS: [id number] XR chest 1V portable [id number] REASON FOR EXAM: cp FINDINGS: The heart and mediastinal interfaces were normal. The lung mar are well aerated. No pneumonia, pleural effusion, pulmonary edema, or pneumothorax. The hilum and apices normal. No osseous abnormalities. XR/XR chest 1V portable [id number] IMPRESSION: Negative chest for active pathology.
--- NOTE | 2019-10-10 16:22 | ECG_ITS ---
Measurements Intervals [place] Rate: 63 P: 19 WV: 168 QRS: -25 QRSD: 98 T: 110 QT: 407 QTc: 419 SINUS RHYTHM BORDERLINE LEFT AXIS DEVIATION [QRS AXIS < -20] MODERATE VOLTAGE CRITERIA FOR LVH, CONSIDER NORMAL VARIANT [MEETS CRITERIA IN ONE OF: R(aVL), S(V1), R(V5), R(V5/V6)+S(V1)] MODERATE T-WAVE ABNORMALITY, CONSIDER LATERAL ISCHEMIA [-0.1+ mV T WAVE IN I/aVL/V5/V6] Compared to ECG 07/17/2019 05:43:17 Possible ischemia now present Prolonged QT interval no longer present T-wave abnormality still present Electronically Signed On 10-11-2019 17:01:52 CDT by Gage Noriega M.D. [id number]
[2019-10-10 16:25] VITALS: BP 145/83; PULSE 74; RESP 16; TEMP 36.9; O2SAT 97
--- NOTE | 2019-10-10 16:36 | W.ED.CHESTPA ---
HPI - Chest Pain General: Chief Complaint: Chest Pain Stated Complaint: CHEST PAIN Time Seen by Provider: 10/10/19 16:21 Source: patient and EMS Mode of arrival: EMS Limitations: no limitations History of Present Illness: HPI narrative: 54-year-old male who is well-known to the ER who has had chest pain over the last 4 to 5 hours. States pain is a pressure type pain in the center of the chest. Denies any worsening or improving factors. Denies any vomiting or diarrhea. MD complaint: chest pain Timing of current episode: episodic Onset: during rest Pain radiation: none Severity: mild Quality: sharp Relieving factors: nothing Exacerbating factors: nothing Associated symptoms: Deny abdominal pain, dyspnea, fever(s), nausea or vomiting Review of Systems Const: Denies: fever(s), chills, body aches or change in appetite Eyes: Denies: blurry vision or eye discomfort ENMT: Denies: throat pain or dental pain Card: Reports: chest pain Resp: Denies: dyspnea GI: Denies: abdominal pain, nausea, vomiting or diarrhea : Denies: dysuria Musc: Denies: neck pain or back pain Skin/Breast: Denies: rash Neuro: Denies: headache(s) Psych: Denies: depression Jose G/Lymph: Denies: easy bruising All/Imm: Denies: urticaria PFSH ED PFSH: Medical History Atypical chest pain Benign essential hypertension with target blood pressure below 140/90 Dyslipidemia Epilepsy Glucose intolerance Hypothyroidism Obesity Smoker Type 2 diabetes mellitus Surgical History H/O umbilical hernia repair History of appendectomy Family History Father Family history of premature coronary artery disease Diabetes Brother Family history of premature coronary artery disease Other Stroke Social History Smoking and tobacco status: current every day smoker cigarettes Packs smoked per day: 1 Years cigarettes smoked: 20 Alcohol intake: never Household members: spouse Housing: House Physical Exam Const: COMMON NORMALS: no acute distress, patient oriented x3 and healthy appearing HENMT: COMMON NORMALS: normocephalic and atraumatic HEAD & SCALP: normocephalic and atraumatic Eye: COMMON NORMALS: Equal, round and reactive pupils present and EOMs intact bilaterally PUPIL: Yes Equal, round and reactive pupils present Neck/C-Spine: COMMON NORMALS: full ROM and supple Chest: COMMONS NORMALS: normal inspection of the chest and normal palpation of entire chest wall Resp: COMMON NORMALS: normal respiratory effort, No retractions, No use of accessory muscles and clear to auscultation bilaterally AUSCULTATION: clear to auscultation bilaterally Cardio: COMMON NORMALS: regular rate, regular rhythm and No murmurs present (Cardio) RATE: regular rate RHYTHM: regular rhythm GI: COMMON NORMALS: Normal to inspection, nondistended, normoactive bowel sounds present, Soft to palpation, non-tender and no masses PALPATION: Yes Soft to palpation Extremity: COMMON NORMALS: normal to inspection and full ROM Neuro: COMMON NORMALS: patient oriented x3, moves all extremities and no focal motor deficits Psych: COMMON NORMALS: mental status grossly normal, Normal thought process present and cooperative THOUGHT PROCESS: Normal thought process present Skin: COMMON NORMALS: no rashes or lesions noted and no wounds GENERAL SKIN EXAM: no rashes or lesions noted Course Vital Signs: Vital signs: Vital Signs Temperature 98.5 F 10/10/19 16:25 Pulse Rate 74 10/10/19 16:25 Respiratory Rate 16 10/10/19 16:25 Blood Pressure 145/83 10/10/19 16:25 Pulse Oximetry 97 10/10/19 16:25 MDM - Chest Pain MDM Narrative: Medical decision making narrative: Patient presents here with chest pain that is atypical in nature. Initial and repeat troponin are normal and EKG is normal as well. Patient has an appoint with Dr. Flores and he is to follow then. Patient is to return if worsening Lab Data: Labs: Lab Results 10/10/19 10/10/19 10/10/19 Range/Units 16:15 16:15 16:15 WBC 5.9 (4.0-10.0) 10^3/ uL RBC 4.64 (4.1-5.3) 10^6/u L Hgb 14.1 (11.7-16.6) g/dL Hct 42.6 (42.0-52.0) % MCV 91.8 (80-94) fL MCH 30.4 (28.0-34.0) pg MCHC 33.1 (30.0-36.0) g/dL RDW 14.1 (12.1-15.1) % Plt Count 112 L (130-400) 10^3/c mm MPV 10.5 H (7.4-10.4) fL Neut % (Auto) 65.8 % Lymph % (Auto) 20.5 % [place] % (Auto) 7.7 % Eos % (Auto) 4.7 % Baso % (Auto) 1.0 % Neut # (Auto) 3.9 (1.8-7.7) 10^3/u L Lymph # (Auto) 1.2 (0.8-4.8) 10^3/u L [place] # (Auto) 0.5 (0.2-0.9) 10^3/u L Eos # (Auto) 0.3 (0.0-0.8) 10^3/u L Baso # (Auto) 0.1 (0.0-0.1) 10^3/u L Nucleated RBC % (a uto) 0 % Nucleated RBCs # 0.0 /100WBC Sodium 139 (136-145) mmol/L Potassium 4.1 (3.5-5.1) mmol/L Chloride 98 (98-107) mmol/L Carbon Dioxide 29 (22-29) mmol/L Anion Gap 16.1 (5-19) BUN 15 (6-20) mg/dL Creatinine 1.1 (0.7-1.2) mg/dL GFR Calculation 70.3 L (90-130) mL/min Glucose 265 H (65-115) mg/dL Calculated Osmolal ity 294 (285-295) mOsm/k g Calcium 10.2 (8.5-10.5) mg/dL Troponin T Baselin e 14 (0-15) ng/mL Troponin T 120 Min [place] (0-15) ng/mL Delta Troponin T (0-10) ABS# 05//20 Range/Units 18:18 WBC (4.0-10.0) 10^3/ uL RBC (4.1-5.3) 10^6/u L Hgb (11.7-16.6) g/dL Hct (42.0-52.0) % MCV (80-94) fL MCH (28.0-34.0) pg MCHC (30.0-36.0) g/dL RDW (12.1-15.1) % Plt Count (130-400) 10^3/c mm MPV (7.4-10.4) fL Neut % (Auto) % Lymph % (Auto) % [place] % (Auto) % Eos % (Auto) % Baso % (Auto) % Neut # (Auto) (1.8-7.7) 10^3/u L Lymph # (Auto) (0.8-4.8) 10^3/u L [place] # (Auto) (0.2-0.9) 10^3/u L Eos # (Auto) (0.0-0.8) 10^3/u L Baso # (Auto) (0.0-0.1) 10^3/u L Nucleated RBC % (a uto) % Nucleated RBCs # /100WBC Sodium (136-145) mmol/L Potassium (3.5-5.1) mmol/L Chloride (98-107) mmol/L Carbon Dioxide (22-29) mmol/L Anion Gap (5-19) BUN (6-20) mg/dL Creatinine (0.7-1.2) mg/dL GFR Calculation (90-130) mL/min Glucose (65-115) mg/dL Calculated Osmolal ity (285-295) mOsm/k g Calcium (8.5-10.5) mg/dL Troponin T Baselin e (0-15) ng/mL Troponin T 120 Min [place] 13.65 (0-15) ng/mL Delta Troponin T -0.35 L (0-10) ABS# Imaging Data^: CXR: Attestation: I personally reviewed and interpreted this imaging study as follows: My impression: no acute abnormality EKG Data^: EKG 1: Attestation: I personally reviewed and interpreted this EKG as follows: EKG interpretation date: 10/10/19 EKG interpretation time: 16:35 Interpretation: nsr hr [address] or t wave abnormalities qrs 92 qtc 411 EKG 2: Attestation: I personally reviewed and interpreted this EKG as follows: EKG interpretation date: 10/10/19 EKG interpretation time: 18:43 Interpretation: nsr hr [address] or t wave abnormalities qrs 98 qtc 415 Discharge Plan Discharge Patient Disposition: Home, Self-Care Clinical Impression: Chest pain Qualifiers: Chest pain type: unspecified Qualified Code(s): R07.9 - Chest pain, unspecified Condition: Stable Prescriptions: No Action aspirin 81 mg tablet,chewable 81 mg PO DAILY 30 Days Qty: 30 RF: 5 nitroglycerin 0.4 mg tablet, sublingual 0.4 mg SUBLINGUAL Q5M PRN (Reason: chest pain) 30 Days Qty: 30 RF: 3 rosuvastatin [Crestor] 5 mg tablet 5 mg PO DAILY 30 Days Qty: 30 RF: 5 metoprolol tartrate 25 mg tablet 25 mg PO BID 30 Days Qty: 60 RF: 5 metformin [Glucophage] 500 mg Tablet 500 mg PO BID RF: 0 omeprazole 40 mg Capsule,Delayed Release(Dr/Ec) 40 mg PO DAILY RF: 0 levothyroxine 200 mcg Capsule 200 mcg PO DAILY RF: 0 albuterol sulfate 90 mcg/actuation HFA aerosol inhaler 1 inh INHALATION Q6H PRN (Reason: shortness of breath) Qty: 6.7 RF: 0 methocarbamol [Robaxin-750] 750 mg tablet 750 mg PO Q6H Qty: 30 RF: 0 Multiple Vitamins Tablet 1 tab PO DAILY RF: 0 diclofenac sodium 75 mg tablet,delayed release (DR/EC) 75 mg PO Q12H PRN (Reason: pain) Qty: 20 RF: 0 naproxen [EC-Naprosyn] 500 mg tablet,delayed release (DR/EC) 500 mg PO BID PRN (Reason: pain) Qty: 20 RF: 0 Discharge Orders: Discharge Order (Routine); Ordered 10/10/19 Ordered By: Kerry Jeter Referrals: Dorita Flaherty [Primary Care Provider] - 1-3 days Discharge Diet: Advance as tolerated Discharge Activity: Resume usual activity Patient Instructions: Chest Pain (ED) Coding Level of Care Code ED Custom Motorcycle Painter for Rheag Fwd Exam Comprehensive
[2019-10-10 16:44] LABS: Basophils # 0.1 10^3/uL (0.0-0.1); Eosinophils # 0.3 10^3/uL (0.0-0.8); Eosinophils % 4.7 %; Hematocrit 42.6 % (42.0-52.0); Hemoglobin 14.1 g/dL (11.7-16.6); Lymphocytes # 1.2 10^3/uL (0.8-4.8); Lymphocytes % 20.5 %; Mean Corpuscular HGB Conc 33.1 g/dL (30.0-36.0); Mean Corpuscular Hemoglobin 30.4 pg (28.0-34.0); Mean Corpuscular Volume 91.8 fL (80-94); Mean Platelet Volume 10.5 fL (7.4-10.4); Monocytes # 0.5 10^3/uL (0.2-0.9); Monocytes % 7.7 %; Neutrophils # 3.9 10^3/uL (1.8-7.7); Neutrophils % 65.8 %; Nucleated Red Blood Cells % 0 %; Platelet Count 112 10^3/cmm (130-400); Red Blood Count 4.64 10^6/uL (4.1-5.3); Red Cell Distribution Width 14.1 % (12.1-15.1); White Blood Count 5.9 10^3/uL (4.0-10.0)
[2019-10-10 16:59] LABS: Anion Gap 16.1 (5-19); Blood Urea Nitrogen 15 mg/dL (6-20); Calcium 10.2 mg/dL (8.5-10.5); Carbon Dioxide 29 mmol/L (22-29); Chloride 98 mmol/L (98-107); Creatinine Clr Calc Pharmacy 96.2436; Glomerular Filtration Rate 70.3 mL/min (90-130); Glucose 265 mg/dL (65-115); Osmolality Calculated 294 mOsm/kg (285-295); Potassium 4.1 mmol/L (3.5-5.1); Sodium 139 mmol/L (136-145)
[2019-10-10 17:03] LABS: Troponin(5th) Baseline 14 ng/mL (0-15)
[2019-10-10 18:46] LABS: Troponin 5 2HR 13.65 ng/mL (0-15)
[2019-10-10 18:47] LABS: Troponin 5 2HR Delta -0.35 ABS# (0-10)
[2019-10-10 19:01] VITALS: BP 137/81; PULSE 92; RESP 18; O2SAT 98
--- NOTE | 2019-10-10 22:22 | ECG_ITS ---
Measurements Intervals [place] Rate: 75 P: 30 ND: 174 QRS: -24 QRSD: 92 T: 107 QT: 382 QTc: 429 SINUS RHYTHM BORDERLINE LEFT AXIS DEVIATION [QRS AXIS < -20] MODERATE VOLTAGE CRITERIA FOR LVH, CONSIDER NORMAL VARIANT [MEETS CRITERIA IN ONE OF: R(aVL), S(V1), R(V5), R(V5/V6)+S(V1)] MODERATE T-WAVE ABNORMALITY, CONSIDER LATERAL ISCHEMIA [-0.1+ mV T WAVE IN I/aVL/V5/V6] Compared to ECG 07/17/2019 05:43:17 Possible ischemia now present Prolonged QT interval no longer present T-wave abnormality still present Electronically Signed On 10-11-2019 17:06:10 CDT by Gage Noriega M.D. [id number]
== END 2019-10-10 19:05 | disposition home or self-care (01) ==
PROVIDERS: Emergency Provider Emergency Medicine; PCP Nurse Practitioner Family
DX: R07.9 Chest pain, unspecified (principal); Z79.82 Long term (current) use of aspirin; I10 Essential (primary) hypertension; E78.5 Hyperlipidemia, unspecified; E11.9 Type 2 diabetes mellitus without complications; F17.210 Nicotine dependence, cigarettes, uncomplicated
CPT/HCPCS: 12345; 36415; 71045; 80048; 84484; 85025; 93005; 99282; 99284

== ENCOUNTER 2019-10-16 21:03 | Emergency (ER) | payer MEDICAID, SELFPAY ==
[2019-10-16 21:44] VITALS: BP 167/105; PULSE 87; RESP 18; TEMP 37.1; O2SAT 96; BMI 33.8
--- NOTE | 2019-10-16 22:40 | ED_ITS ---
HPI - Back Pain/Injury General: Chief Complaint: Back Pain/Injury Stated Complaint: back pain Time Seen by Provider: 10/16/19 21:11 History of Present Illness: HPI Narrative: Patient is a 54-year-old male who comes to the ED with acute on chronic lower back pain. Patient denies any injury or accident to cause acute back pain. Patient says it started yesterday. Denies any pain radiating to the legs. Denies numbness tingling or weakness to the legs. Denies bladder or bowel incontinence and pelvic anesthesia. Pain is localized to the lower back and predominantly on the right side. Associated symptoms: Deny abdominal pain, chills, dysuria, fatigue, fever(s), hematuria, nausea or vomiting Review of Systems Const: Denies: fever(s), chills or fatigue Eyes: Denies: change in vision or eye discomfort ENMT: Denies: throat pain, odynophagia, nasal discharge or nasal congestion Card: Denies: chest pain, palpitations, edema, swelling of feet/ankles, dyspnea on exertion or orthopnea Resp: Denies: dyspnea, productive cough or non-productive cough GI: Denies: abdominal pain, nausea, vomiting, diarrhea, constipation or hematochezia : Denies: flank pain, difficulty urinating, dysuria or hematuria Musc: Reports: back pain; Denies: neck pain or extremity swelling Skin/Breast: Denies: rash or new lesions Neuro: Denies: headache(s), numbness in extremities or weakness in extremities PFSH ED PFSH: Medical History Atypical chest pain Benign essential hypertension with target blood pressure below 140/90 Dyslipidemia Epilepsy Glucose intolerance Hypothyroidism Obesity Smoker Type 2 diabetes mellitus Surgical History H/O umbilical hernia repair History of appendectomy Family History Father Family history of premature coronary artery disease Diabetes Brother Family history of premature coronary artery disease Other Stroke Social History Smoking and tobacco status: current every day smoker cigarettes Packs smoked per day: 1 Years cigarettes smoked: 20 Alcohol intake: never Household members: spouse Housing: House Physical Exam Const: COMMON NORMALS: no acute distress, patient oriented x3 and alert GENERAL APPEARANCE: cooperative and comfortable HENMT: COMMON NORMALS: normocephalic HEAD & SCALP: normocephalic MOUTH: Normal oral and palatal mucosa present THROAT: posterior oropharynx normal and uvula midline Eye: COMMON NORMALS: Equal, round and reactive pupils present PUPIL: Yes Equal, round and reactive pupils present Neck/C-Spine: COMMON NORMALS: supple GENERAL: Yes normal visual inspection Resp: COMMON NORMALS: normal respiratory effort, No retractions, No use of accessory muscles and clear to auscultation bilaterally AUSCULTATION: clear to auscultation bilaterally Cardio: COMMON NORMALS: regular rate, regular rhythm, S1 normal heart sound present, S2 normal heart sound present, No gallops present (Cardio), No clicks present (Cardio), No murmurs present (Cardio) and Peripheral pulses 2+ throughout RATE: regular rate RHYTHM: regular rhythm HEART SOUNDS: S1 normal heart sound present and S2 normal heart sound present PERIPHERAL PULSES: Peripheral pulses 2+ throughout GI: COMMON NORMALS: Normal to inspection, nondistended, normoactive bowel sounds present, Soft to palpation, non-tender and no masses PALPATION: Yes Soft to palpation : COMMON NORMALS: Yes no CVA tenderness BLADDER/KIDNEY EXAM: Yes no CVA tenderness Back/Pelvis: COMMON NORMALS: no CVA tenderness LUMBAR SPINE/LOWER BACK: Yes pain with ROM, No lumbar spinal tenderness and Yes paraspinal muscle tenderness Lumbar paraspinal muscle tenderness: right Neuro: COMMON NORMALS: patient oriented x3 and moves all extremities SENSORIUM/ORIENTATION: Yes alert Skin: COMMON NORMALS: no rashes or lesions noted GENERAL SKIN EXAM: no rashes or lesions noted and dry skin Course Vital Signs: Vital signs: Vital Signs Temperature 98.7 F 10/16/19 21:44 Pulse Rate 78 10/16/19 22:53 Respiratory Rate 16 10/16/19 22:53 Blood Pressure 151/99 10/16/19 22:53 Pulse Oximetry 94 10/16/19 22:53 MDM - Back Pain/Injury MDM Narrative: Medical decision making narrative: Patient is a 54-year-old male who comes to the ED with acute on chronic lower back pain. Patient has no signs of sciatica, bladder or bowel incontinence or any pelvic anesthesia. Patient was given a dose of Toradol, Norflex and prednisone while here in the ED. Patient was discharged and told to follow-up with PCP in 5 to 7 days for reevaluation. Patient understood and agreed with plan. Discharge Plan Discharge Patient Disposition: Home, Self-Care Clinical Impression: Chronic lumbar pain Qualifiers: Back pain laterality: right Sciatica presence: without sciatica Qualified Code(s): M54.5 - Low back pain Condition: Stable Prescriptions: New Robaxin-750 750 mg tablet 750 mg PO Q8H Qty: 10 RF: 0 prednisone 50 mg tablet 50 mg PO DAILY 4 Days Qty: 4 RF: 0 ketorolac 10 mg tablet 10 mg PO Q6H 3 Days Qty: 12 RF: 0 No Action aspirin 81 mg tablet,chewable 81 mg PO DAILY 30 Days Qty: 30 RF: 5 nitroglycerin 0.4 mg tablet, sublingual 0.4 mg SUBLINGUAL Q5M PRN (Reason: chest pain) 30 Days Qty: 30 RF: 3 rosuvastatin [Crestor] 5 mg tablet 5 mg PO DAILY 30 Days Qty: 30 RF: 5 metoprolol tartrate 25 mg tablet 25 mg PO BID 30 Days Qty: 60 RF: 5 metformin [Glucophage] 500 mg Tablet 500 mg PO BID RF: 0 omeprazole 40 mg Capsule,Delayed Release(Dr/Ec) 40 mg PO DAILY RF: 0 levothyroxine 200 mcg Capsule 200 mcg PO DAILY RF: 0 albuterol sulfate 90 mcg/actuation HFA aerosol inhaler 1 inh INHALATION Q6H PRN (Reason: shortness of breath) Qty: 6.7 RF: 0 methocarbamol [Robaxin-750] 750 mg tablet 750 mg PO Q6H Qty: 30 RF: 0 Multiple Vitamins Tablet 1 tab PO DAILY RF: 0 diclofenac sodium 75 mg tablet,delayed release (DR/EC) 75 mg PO Q12H PRN (Reason: pain) Qty: 20 RF: 0 naproxen [EC-Naprosyn] 500 mg tablet,delayed release (DR/EC) 500 mg PO BID PRN (Reason: pain) Qty: 20 RF: 0 Discharge Orders: Discharge Order (Routine); Ordered 10/16/19 Ordered By: Sadiq Villalobos Referrals: Dorita Flaherty [Primary Care Provider] - Discharge Diet: Regular Discharge Activity: Increase activity as tolerated Patient Instructions: Chronic Back Pain (ED) Activity Restrictions/Additional Instructions: Follow-up with your PCP in 5 to 7 days for reevaluation. Robaxin is a muscle relaxer and take dose at night to help with pain and comfort when sleeping. Robaxin can cause drowsiness so use with caution. Take full course of pred nisone as prescribed. Take ketorolac as needed for back pain as prescribed. Stretch out lower back daily. Discharge Date/Time: 10/16/19 22:56 Coding Level of Care Code ED Electrical Software Engineer for Marva Fwd Exam Comprehensive
[2019-10-16] MEDS: ketorolac 60 mg/2 mL INJ IM (22:42)
[2019-10-16] MEDS: predniSONE 20 mg Tablet 60 MG PO (22:42)
[2019-10-16] MEDS: orphenadrine 30 mg/mL Inj 2 mL 60 MG IM (22:42)
[2019-10-16 22:53] VITALS: BP 151/99; PULSE 78; RESP 16; O2SAT 94
== END 2019-10-16 22:56 | disposition home or self-care (01) ==
PROVIDERS: Emergency Provider Physician Assistant; PCP Nurse Practitioner Family
DX: G89.29 Other chronic pain (principal); M54.5 Low back pain; Z79.82 Long term (current) use of aspirin; Z79.84 Long term (current) use of oral hypoglycemic drugs; I10 Essential (primary) hypertension; E78.5 Hyperlipidemia, unspecified; E11.9 Type 2 diabetes mellitus without complications; F17.210 Nicotine dependence, cigarettes, uncomplicated
CPT/HCPCS: 12345; 96372; 99282; 99283; J1885; J2360; J7512

== ENCOUNTER 2019-10-18 20:15 | Emergency (ER) | payer MEDICAID, SELFPAY ==
[2019-10-18 20:36] VITALS: BP 125/79; PULSE 91; RESP 18; TEMP 37; O2SAT 94; BMI 33.0
--- NOTE | 2019-10-18 20:47 | CTR_ITS ---
PROCEDURE INFORMATION: Exam: CT Abdomen And Pelvis With Contrast Exam date and time: 10/18/2019 8:55 PM Age: 54 years old Clinical indication: Abdominal pain; Localized; Lower; Prior surgery; Surgery type: Gb, hernia TECHNIQUE: Imaging protocol: Computed tomography of the abdomen and pelvis with intravenous contrast. Radiation optimization: All CT scans at this facility use at least one of these dose optimization techniques: automated exposure control; mA and/or kV adjustment per patient size (includes targeted exams where dose is matched to clinical indication); or iterative reconstruction. Contrast material: OMNI 300; Contrast volume: 95 ml; Contrast route: IV; COMPARISON: CT abdomen pelvis w con* [id number] 02/16/2019 7:26 PM RADIATION DOSE METRICS: Total DLP: 1885.22 mGy-cm FINDINGS: Liver: Cirrhosis of the liver. No visible hepatic mass or cystic structure. Gallbladder and bile ducts: Status post cholecystectomy. No visible intra or extrahepatic biliary ectasia. Pancreas: Pancreas unremarkable. No visible pancreatic ductal ectasia. Spleen: Splenomegaly. Adrenals: Adrenal glands unremarkable. Kidneys and ureters: Kidneys unremarkable. No visible hydronephrosis or perinephric fluid. Small simple cortical cyst inferior pole left kidney stable since prior study. No follow-up recommended. Stomach and bowel: No visible diverticulitis. Nonobstructive bowel pattern. No visible adynamic or reactive ileus. Constipation. Appendix: The appendix is noninflamed. Intraperitoneal space: Small amount of intraperitoneal ascites. Vasculature: No visible evidence of portal venous thrombosis. Evidence of portal venous hypertension. Intra-abdominal varices. Recannulization of the umbilical vein. The abdominal aorta is nonaneurysmal. Mild arterial sclerotic disease. Lymph nodes: Unremarkable. No enlarged lymph nodes. Bladder: Mild diffuse bladder wall thickening which may be secondary to active cystitis. Reproductive: Unremarkable as visualized. Bones/joints: No visible active osseous pathology. Bilateral spondylolysis L5/S1 without evidence for significant spondylolisthesis. Rare bone island. Soft tissues: Heavy body habitus. CT/CT abdomen pelvis w con* [id number] IMPRESSION: 1. No current visible evidence of acute abdominal or pelvic pathologic process. 2. Cirrhosis with portal venous hypertension. 3. Small volume intraperitoneal ascites. 4. Splenomegaly. 5. Mild diffuse bladder wall thickening which may be secondary to active cystitis. 6. Constipation. Radiation Dose CTDIVOL = (mGy): DLP = 1885.22 (mGy-cm)
[2019-10-18] MEDS: sodium chloride 0.9% 1,000 ML 999 ML IV (21:08)
[2019-10-18] MEDS: iohexol 300 mg/mL 100 mL Btl IV (21:18)
[2019-10-18 21:19] LABS: Basophils # 0.1 10^3/uL (0.0-0.1); Basophils % 1.1 %; Eosinophils # 0.3 10^3/uL (0.0-0.8); Eosinophils % 3.7 %; Hematocrit 41.4 % (42.0-52.0); Hemoglobin 13.9 g/dL (11.7-16.6); Lymphocytes # 1.5 10^3/uL (0.8-4.8); Lymphocytes % 17.5 %; Mean Corpuscular HGB Conc 33.6 g/dL (30.0-36.0); Mean Corpuscular Hemoglobin 30.8 pg (28.0-34.0); Mean Corpuscular Volume 91.6 fL (80-94); Mean Platelet Volume 10.9 fL (7.4-10.4); Monocytes # 0.6 10^3/uL (0.2-0.9); Monocytes % 6.8 %; Neutrophils # 5.8 10^3/uL (1.8-7.7); Neutrophils % 70.2 %; Nucleated Red Blood Cells % 0 %; Platelet Count 116 10^3/cmm (130-400); Red Blood Count 4.52 10^6/uL (4.1-5.3); Red Cell Distribution Width 14.2 % (12.1-15.1); White Blood Count 8.3 10^3/uL (4.0-10.0)
--- NOTE | 2019-10-18 21:20 | ED_ITS ---
HPI - Abdominal Pain General: Chief Complaint: Abdominal Pain Stated Complaint: lower abd pain Time Seen by Provider: 10/18/19 20:43 History of Present Illness: HPI narrative: Alonso is a 54-year-old male comes in complaining of right lower quadrant abdominal pain. States his pain began just a few hours ago. He has had no associated nausea vomiting, fevers or chills, dysuria or hematuria. The pain does not radiate to his testicles with his back or to his flank. Patient denies having anything similar to this in the past. He has no diarrhea or constipation denies any blood in his urine. Patient is unaware of anything that makes his symptoms better or worse. He is requesting morphine here for his pain. Associated Symptoms: Denies chills, coffee ground emesis, constipation, GI cramping, diarrhea, dysuria, fever(s), heartburn, hematochezia, hematuria, hematemesis, melena, nausea, syncope and vomiting Review of Systems Const: Denies: fever(s), chills, body aches, fatigue, malaise or diaphoresis Eyes: Denies: change in vision, blurry vision, blind spots or photophobia ENMT: Denies: throat pain, odynophagia, hoarseness, swelling of lips/tongue, ear or mastoid pain, ear discharge, change in hearing or nasal discharge Card: Denies: chest pain, palpitations, irregular heart rhythm, edema, lightheadedness, syncope, pre-syncope, dyspnea on exertion or orthopnea Resp: Denies: dyspnea, productive cough, non-productive cough, wheezing, hemoptysis or chest congestion GI: Reports: abdominal pain; Denies: nausea, vomiting, hematemesis, coffee ground emesis, heartburn, diarrhea, constipation, GI cramping, hematochezia or melena : Denies: flank pain, dysuria, urinary frequency, urinary urgency or hematuria Musc: Denies: neck pain, back pain, extremity pain, extremity swelling, joint pain, joint swelling, joint redness, joint warmth or joint stiffness Skin/Breast: Denies: rash, pruritus, erythema, skin tenderness or jaundice Neuro: Denies: headache(s), numbness in extremities, weakness in extremities, sensory changes, lack of coordination, difficulty walking, dizziness, vertigo, confusion or Slurred speech present Jose G/Lymph: Denies: easy bruising, easy bleeding, petechiae, purpura or enlarged lymph nodes All/Imm: Denies: urticaria, throat swelling, tongue swelling, facial swelling or acute wheezing PFSH ED PFSH: Medical History Atypical chest pain Benign essential hypertension with target blood pressure below 140/90 Dyslipidemia Epilepsy Glucose intolerance Hypothyroidism Obesity Smoker Type 2 diabetes mellitus Surgical History H/O umbilical hernia repair History of appendectomy Family History Father Family history of premature coronary artery disease Diabetes Brother Family history of premature coronary artery disease Other Stroke Social History Smoking and tobacco status: current every day smoker cigarettes Packs smoked per day: 1 Years cigarettes smoked: 20 Alcohol intake: never Household members: spouse Housing: House Physical Exam Const: COMMON NORMALS: no acute distress, patient oriented x3, no limitations, healthy appearing and well nourished GENERAL APPEARANCE: cooperative, well kempt and well developed HENMT: COMMON NORMALS: normocephalic, atraumatic, external ears normal, EAC's normal and Normal external nose present HEAD & SCALP: normal to inspection, normocephalic and atraumatic FACE & SINUS: normal facial exam and face symmetric NOSE: Normal external nose present and Normal nares present EXTERNAL EAR: Yes external ears normal EXTERNAL AUDITORY CANAL: EAC's normal MOUTH: Normal oral and palatal mucosa present, lip normal and tongue normal Eye: COMMON NORMALS: Equal, round and reactive pupils present and conjunctivae normal GENERAL EYE: appearance normal, both eyes and all related structures ALIGNMENT: Yes alignment normal PERIORBITAL: periorbital findings normal EYELID: eyelids normal CONJUNCTIVA: Yes conjunctivae normal SCLERA: sclerae normal PUPIL: Yes Equal, round and reactive pupils present Neck/C-Spine: COMMON NORMALS: full ROM, no lymphadenopathy, supple, no meningeal signs and no JVD GENERAL: Yes normal visual inspection and Yes trachea midline Chest: COMMONS NORMALS: normal inspection of the chest and normal palpation of entire chest wall Resp: COMMON NORMALS: normal respiratory effort, No retractions and No use of accessory muscles EFFORT & INSPECTION: Yes able to speak in complete sentences and Yes symmetric chest movement AUSCULTATION: no crackles, no rales, no rhonchi and no wheezes Cardio: COMMON NORMALS: no JVD, regular rate, regular rhythm, S1 normal heart sound present and S2 normal heart sound present RATE: regular rate RHYTHM: regular rhythm HEART SOUNDS: S1 normal heart sound present, S2 normal heart sound present, no click, no gallops, no murmurs, no rubs and abnormal split S2 GI: COMMON NORMALS: Soft to palpation and No hepatosplenomegaly present PALPATION: Yes Soft to palpation, No Tenderness to palpation present (GI), No Guarding due to palpation present (GI), No Rigid due to palpation, Yes No hepatosplenomegaly present, No Hernia present, No Palpable mass present and No Pulsatile mass present : COMMON NORMALS: Yes no CVA tenderness BLADDER/KIDNEY EXAM: Yes no CVA tenderness Back/Pelvis: COMMON NORMALS: no CVA tenderness, thoracic and lumbar spine normal to inspection, no thoracic nor lumbar tenderness and thoraco-lumbar ROM normal Extremity: COMMON NORMALS: normal to inspection, full ROM, capillary refill normal, no joint enlargement, no clubbing, cyanosis or edema and no calf tenderness Neuro: COMMON NORMALS: patient oriented x3, CN's II-XII intact bilaterally, moves all extremities, no focal motor deficits and no sensory deficits noted MENINGEAL SIGNS: Yes no meningeal signs SPEECH: speech normal Psych: COMMON NORMALS: mental status grossly normal, Normal thought process present, cooperative, normal affect, speech normal and activity/motor behavior normal APPEARANCE: Yes well kempt SPEECH: Yes normal speech THOUGHT PROCESS: Normal thought process present Skin: COMMON NORMALS: no rashes or lesions noted, turgor normal, no jaundice, no petechiae and no mottling GENERAL SKIN EXAM: no rashes or lesions noted and turgor normal Course Vital Signs: Vital signs: Vital Signs Temperature 98.6 F 10/18/19 20:36 Pulse Rate 73 10/18/19 21:57 Respiratory Rate 14 10/18/19 21:57 Blood Pressure 134/83 10/18/19 21:57 Pulse Oximetry 96 10/18/19 21:57 MDM - Abdominal Pain MDM Narrative: Medical decision making narrative: Alonso is a 54-year-old male who comes in complaining of right lower quadrant abdominal pain. States the pain began earlier tonight. This time there is no evidence of acute findings on his laboratory work-up or CT scan. He has a normal appendix. He has have portal hypertension and a small amount of ascites but nothing that could be tapped. The patient does not appear to have any type of spontaneous bacterial peritonitis. His abdomen was focally tender in the right lower quadrant but after IV Tylenol all his pain is resolved. He agrees to return should his symptoms change or worsen at this time he is feeling better and would like to be discharged. Lab Data: Attestation: I reviewed the patient's lab results. Labs: Lab Results 10/18/19 10/18/19 10/18/19 Range/Units 21:02 21:02 21:40 WBC 8.3 (4.0-10.0) 10^3/ uL RBC 4.52 (4.1-5.3) 10^6/u L Hgb 13.9 (11.7-16.6) g/dL Hct 41.4 L (42.0-52.0) % MCV 91.6 (80-94) fL MCH 30.8 (28.0-34.0) pg MCHC 33.6 (30.0-36.0) g/dL RDW 14.2 (12.1-15.1) % Plt Count 116 L (130-400) 10^3/c mm MPV 10.9 H (7.4-10.4) fL Neut % (Auto) 70.2 % Lymph % (Auto) 17.5 % Brantley % (Auto) 6.8 % Eos % (Auto) 3.7 % Baso % (Auto) 1.1 % Neut # (Auto) 5.8 (1.8-7.7) 10^3/u L Lymph # (Auto) 1.5 (0.8-4.8) 10^3/u L Brantley # (Auto) 0.6 (0.2-0.9) 10^3/u L Eos # (Auto) 0.3 (0.0-0.8) 10^3/u L Baso # (Auto) 0.1 (0.0-0.1) 10^3/u L Nucleated RBC % (a uto) 0 % Nucleated RBCs # 0.0 /100WBC Sodium 136 (136-145) mmol/L Potassium 4.1 (3.5-5.1) mmol/L Chloride 99 (98-107) mmol/L Carbon Dioxide 24 (22-29) mmol/L Anion Gap 17.1 (5-19) BUN 24 H (6-20) mg/dL Creatinine 1.2 (0.7-1.2) mg/dL GFR Calculation 63.6 L (90-130) mL/min Glucose 368 H (65-115) mg/dL Calculated Osmolal ity 294 (285-295) mOsm/k g Calcium 9.2 (8.5-10.5) mg/dL Total Bilirubin 1.0 (0.15-1.2) mg/dL AST 51 H (0-40) U/L ALT 36 (0-41) U/L Alkaline Phosphata se 91 (40-130) IU/L Total Protein 7.8 (6.6-8.7) g/dL Albumin 4.3 (3.5-5.2) g/dL Globulin 3.5 (1.3-4.6) g/dL Lipase 59 (13-60) U/L Urine Color Yellow (Yellow) Urine Appearance Clear (CLEAR) Urine pH 6 (5-7) Ur Specific Gravit y 1.010 (1.005-1.030) Urine Protein Neg (Negative) Urine Glucose (UA) 4+ H (Normal) Urine Ketones Negative (Negative) Urine Blood Neg (Negative) Urine Nitrate Negative (Negative) Urine Bilirubin Neg (NEGATIVE) Urine Urobilinogen 1 H (Negative) mg/dL Ur Leukocyte Tamica ase Negative (Negative) Urine RBC None (0-2) /hpf Urine WBC None (0-5) /hpf Ur Squamous Epith Cells 0-4 H (0-5) Ur Transition Epit h Cell None /hpf Ur Renal Epithelia l Cell None /hpf Urine Bacteria None (NONE) Urine Mucus None Imaging Data ^: CT Abd/Pel: Radiologist's impression: [address] [address] [address] Scan Report Signed Patient: Alonso Golden Unit #: [id number] : 1965 Age/Sex: 54 / M ADM Date: 10/18/19 Loc: ER Room/Bed: Attending Dr: Ordering Provider/Ordering MD: Akila Youssef DO Date of Service: 10/18/19 Procedure(s): CT abdomen pelvis w con* [id number] Accession Number(s): [id number] Report Number: [id number] PROCEDURE INFORMATION: Exam: CT Abdomen And Pelvis With Contrast Exam date and time: 10/18/2019 8:55 PM Age: 54 years old Clinical indication: Abdominal pain; Localized; Lower; Prior surgery; Surgery type: Gb, hernia TECHNIQUE: Imaging protocol: Computed tomography of the abdomen and pelvis with intravenous contrast. Radiation optimization: All CT scans at this facility use at least one of these dose optimization techniques: automated exposure control; mA and/or kV adjustment per patient size (includes targeted exams where dose is matched to clinical indication); or iterative reconstruction. Contrast material: OMNI 300; Contrast volume: 95 ml; Contrast route: IV; COMPARISON: CT abdomen pelvis w con* [id number] 02/16/2019 7:26 PM RADIATION DOSE METRICS: Total DLP: 1885.22 mGy-cm FINDINGS: Liver: Cirrhosis of the liver. No visible hepatic mass or cystic structure. Gallbladder and bile ducts: Status post cholecystectomy. No visible intra or extrahepatic biliary ectasia. Pancreas: Pancreas unremarkable. No visible pancreatic ductal ectasia. Spleen: Splenomegaly. Adrenals: Adrenal glands unremarkable. Kidneys and ureters: Kidneys unremarkable. No visible hydronephrosis or perinephric fluid. Small simple cortical cyst inferior pole left kidney stable since prior study. No follow-up recommended. Stomach and bowel: No visible diverticulitis. Nonobstructive bowel pattern. No visible adynamic or reactive ileus. Constipation. Appendix: The appendix is noninflamed. Intraperitoneal space: Small amount of intraperitoneal ascites. Vasculature: No visible evidence of portal venous thrombosis. Evidence of portal venous hypertension. Intra-abdominal varices. Recannulization of the umbilical vein. The abdominal aorta is nonaneurysmal. Mild arterial sclerotic disease. Lymph nodes: Unremarkable. No enlarged lymph nodes. Bladder: Mild diffuse bladder wall thickening which may be secondary to active cystitis. Reproductive: Unremarkable as visualized. Bones/joints: No visible active osseous pathology. Bilateral spondylolysis L5/S1 without evidence for significant spondylolisthesis. Rare bone island. Soft tissues: Heavy body habitus. CT/CT abdomen pelvis w con* [id number] IMPRESSION: 1. No current visible evidence of acute abdominal or pelvic pathologic process. 2. Cirrhosis with portal venous hypertension. 3. Small volume intraperitoneal ascites. 4. Splenomegaly. 5. Mild diffuse bladder wall thickening which may be secondary to active cystitis. 6. Constipation. Radiation Dose CTDIVOL = (mGy): DLP = 1885.22 (mGy-cm) Dictated By: Mark Muñoz Signed By: Mark Muñoz Signed Date/Time: 10/18/192148 DD/ 47 Discharge Plan Discharge Patient Disposition: Home, Self-Care Clinical Impression: Abdominal pain Condition: Stable Prescriptions: No Action aspirin 81 mg tablet,chewable 81 mg PO DAILY 30 Days Qty: 30 RF: 5 nitroglycerin 0.4 mg tablet, sublingual 0.4 mg SUBLINGUAL Q5M PRN (Reason: chest pain) 30 Days Qty: 30 RF: 3 rosuvastatin [Crestor] 5 mg tablet 5 mg PO DAILY 30 Days Qty: 30 RF: 5 metoprolol tartrate 25 mg tablet 25 mg PO BID 30 Days Qty: 60 RF: 5 metformin [Glucophage] 500 mg Tablet 500 mg PO BID RF: 0 omeprazole 40 mg Capsule,Delayed Release(Dr/Ec) 40 mg PO DAILY RF: 0 levothyroxine 200 mcg Capsule 200 mcg PO DAILY RF: 0 albuterol sulfate 90 mcg/actuation HFA aerosol inhaler 1 inh INHALATION Q6H PRN (Reason: shortness of breath) Qty: 6.7 RF: 0 multivitamin [Multiple Vitamins] Tablet 1 tab PO DAILY RF: 0 lisinopril 40 mg tablet 40 mg PO DAILY RF: 0 diclofenac sodium 75 mg tablet,delayed release (DR/EC) 75 mg PO Q12H PRN (Reason: pain) Qty: 20 RF: 0 naproxen [EC-Naprosyn] 500 mg tablet,delayed release (DR/EC) 500 mg PO BID PRN (Reason: pain) Qty: 20 RF: 0 methocarbamol [Robaxin-750] 750 mg tablet 750 mg PO Q8H Qty: 10 RF: 0 prednisone 50 mg tablet 50 mg PO DAILY 4 Days Qty: 4 RF: 0 ketorolac 10 mg tablet 10 mg PO Q6H 3 Days Qty: 12 RF: 0 Discharge Orders: Discharge Order (Routine); Ordered 10/18/19 Ordered By: Akila Youssef Referrals: Dorita Flaherty FNP [Primary Care Provider] - 1-3 days Discharge Diet: Advance as tolerated Discharge Activity: Increase activity as tolerated Patient Instructions: Abdominal Pain (ED) Activity Restrictions/Additional Instructions: Please return to the ER immediately for any of the signs or symptoms listed on your discharge instruction sheets, worsening/changing of your symptoms, you are not getting better as quickly as expected, or for ANY other cause or concerns. Return to the ER for increased pain, fever, vomiting, or for any other cause for concern. If your pain returns and persists for more than 10 to 12 hours please return to the ER for recheck as appendicitis that is still developing could be a cause for your pain. 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
[2019-10-18 21:37] LABS: Alanine Aminotransferase 36 U/L (0-41); Albumin Level 4.3 g/dL (3.5-5.2); Alkaline Phosphatase 91 IU/L (40-130); Anion Gap 17.1 (5-19); Aspartate Amino Transferase 51 U/L (0-40); Blood Urea Nitrogen 24 mg/dL (6-20); Calcium 9.2 mg/dL (8.5-10.5); Carbon Dioxide 24 mmol/L (22-29); Chloride 99 mmol/L (98-107); Globulin 3.5 g/dL (1.3-4.6); Glomerular Filtration Rate 63.6 mL/min (90-130); Glucose 368 mg/dL (65-115); Lipase 59 U/L (13-60); Osmolality Calculated 294 mOsm/kg (285-295); Potassium 4.1 mmol/L (3.5-5.1); Sodium 136 mmol/L (136-145); Total Protein 7.8 g/dL (6.6-8.7)
[2019-10-18 21:57] VITALS: BP 134/83; PULSE 73; RESP 14; O2SAT 96
[2019-10-18 21:58] LABS: Bilirubin Urine Neg (NEGATIVE); Blood Urine Neg (Negative); Glucose Urine UA 4+ (Normal); Ketones Urine Negative (Negative); Leukocyte Esterase Urine Negative (Negative); Nitrate Urine Negative (Negative); Protein Urine Neg (Negative); Urine Appearance Clear (CLEAR); Urine Color Yellow (Yellow); Urobilinogen Urine 1 mg/dL (Negative); pH Urine 6 (5-7)
[2019-10-18 21:59] LABS: Add Urine Culture? No; Squamous Epithelial Cell Urine 0-4 (0-5)
[2019-10-18 22:19] VITALS: BP 125/70; PULSE 75; RESP 14; O2SAT 95
== END 2019-10-18 22:20 | disposition home or self-care (01) ==
PROVIDERS: Emergency Provider Emergency Medicine; PCP Nurse Practitioner Family
DX: R10.9 Unspecified abdominal pain (principal); Z79.82 Long term (current) use of aspirin; Z79.84 Long term (current) use of oral hypoglycemic drugs; I10 Essential (primary) hypertension; E78.5 Hyperlipidemia, unspecified; E11.9 Type 2 diabetes mellitus without complications; F17.210 Nicotine dependence, cigarettes, uncomplicated
CPT/HCPCS: 12345; 36415; 74177; 80053; 81001; 83690; 85025; 96361; 96374; 99282; 99283; J0131; J7030; Q9967

== ENCOUNTER 2019-10-29 08:52 | Outpatient (CLI) | payer MEDICAID, SELFPAY ==
--- NOTE | 2019-10-29 09:19 | NMCV_ITS ---
NM kayleen perf SPECT r/s* [id number] [place] Alonso Age: 54 Gender: M : 1965 Exam Date: 10/29/2019 10:04 Ordering Phys: Sujata Flores MD ([email or web address]) Technologist: LEONEL Acosta Exam Location: [facility] Indications: CHEST PAIN STRESS TEST [facility] IMAGE PROTOCOL Rest/Stress 1 Lexiscan Day Radiopharmaceutical Dose (mCi) Administration Site Administered by Rest: Tc-99m 10.8 IV LEONEL Noriega Sestamibi Stress:Tc-99m 32.8 IV LEONEL Noriega Sestamisumit Rest: 29-Oct-2019 60 Discovery 630 Stress: 29-Oct-2019 30 Discovery 630 0.4mg Lexiscan. Images obtained in supine and prone position. SPECT RESULTS Technical Quality: Excellent Raw Data Analysis: Normal Image Corrections: No attenuation or motion correction applied Summed Stress Score: 0 Summed Rest Score: 0 Summed Difference Score: 0 PERFUSION FINDINGS Fairly uniform myocardial tracer uptake with no significant perfusion normalities. FUNCTIONAL RESULTS (calculated via Gated SPECT) Stress Image LV EF (%): 76 Stress EDV (mL):99 TID: 1.04 Stress ESV (mL):24 FUNCTIONAL FINDINGS: Segmental wall motion analysis revealing no gross wall motion normalities IMPRESSIONS 1. Unremarkable myocardial perfusion imaging 2. Normal LV ejection fraction of 76%. 3. LV wall motion analysis revealing no gross wall motion normalities. 4. Normal LV volume. No significant coronary ischemia, based on the above findings Dr Sujata Flores MD FACC (Electronically Signed) Final Date: 29 October 2019 14:06 S
--- NOTE | 2019-10-29 09:19 | ECG_ITS ---
[facility] Test Date: 2019-10-29 Pat Name: Alonso Golden Department: Room: Gender: Male Assistant Community Director: : 1965 Requested By: Sujata Flores Order Number: [id number] Mariaa MD: Sujata Flores M.D. Interpretive Statements NAME OF STUDY: Lexiscan/sestamibi/sestamibi stress test PROCEDURE: At the baseline, the EKG revealed normal sinus rhythm with some nonspecific ST-T changes in the inferolateral leads. The baseline blood pressure was 146/87 mm Hg with a heart rate of 65 beats/min. Lexiscan was infused over a period of 20 seconds. A total of 0.4 milligrams of Lexiscan was infused. The stress phase was continued for a total of 5 minutes. Heart rate at the end of the stress phase was 71 with a blood pressure 132/77. The EKG at the peak infusion revealed no significant changes. Sestamibi was injected 20 seconds after the Lexiscan infusion. Blood pressure at the end of the recovery phase was 126/79 with a heart rate of 66 per minute. CONCLUSION: 1. No significant EKG changes with the LexiScan infusion 2. No LexiScan induced chest pain or cardiac arrhythmia 3. Normal blood pressure and heart rate response 4. Sestamibi/sestamibi perfusion scan pending; see separate report. Electronically Signed On 11-03-2019 18:13:41 CDT by Sujata Flores M.D. [email or web address]
[2019-10-29 09:22] VITALS: BMI 33.0
[2019-10-29] MEDS: regadenoson 0.4 Mg/5 ml Syringe IVP (10:45)
[2019-10-29 11:18] VITALS: BP 129/78; PULSE 70
== END 2019-10-29 08:53 | disposition home or self-care (01) ==
LOC: RAD 08:52
PROVIDERS: PCP Nurse Practitioner Family; Visit Provider Internal Medicine Cardiovascular Disease
DX: R07.89 Other chest pain (principal); F17.200 Nicotine dependence, unspecified, uncomplicated; E11.65 Type 2 diabetes mellitus with hyperglycemia
CPT/HCPCS: 78452; 93017; A9500; J2785

== ENCOUNTER 2019-11-03 20:25 | Emergency (ER) | payer MEDICAID, SELFPAY ==
[2019-11-03 20:35] VITALS: BP 138/91; PULSE 84; RESP 18; TEMP 36.7; O2SAT 96; BMI 33.0
[2019-11-03 21:25] LABS: Basophils # 0.1 10^3/uL (0.0-0.1); Eosinophils # 0.2 10^3/uL (0.0-0.8); Eosinophils % 3.5 %; Hematocrit 40.2 % (42.0-52.0); Hemoglobin 13.4 g/dL (11.7-16.6); Lymphocytes # 1.3 10^3/uL (0.8-4.8); Lymphocytes % 21.9 %; Mean Corpuscular HGB Conc 33.3 g/dL (30.0-36.0); Mean Corpuscular Hemoglobin 30.2 pg (28.0-34.0); Mean Corpuscular Volume 90.5 fL (80-94); Mean Platelet Volume 11.1 fL (7.4-10.4); Monocytes # 0.5 10^3/uL (0.2-0.9); Monocytes % 9.2 %; Neutrophils # 3.7 10^3/uL (1.8-7.7); Neutrophils % 64.1 %; Nucleated Red Blood Cells % 0 %; Platelet Count 96 10^3/cmm (130-400); Red Blood Count 4.44 10^6/uL (4.1-5.3); White Blood Count 5.8 10^3/uL (4.0-10.0)
[2019-11-03 21:34] LABS: Alanine Aminotransferase 33 U/L (0-41); Albumin Level 4.4 g/dL (3.5-5.2); Alkaline Phosphatase 96 IU/L (40-130); Anion Gap 14.2 (5-19); Aspartate Amino Transferase 42 U/L (0-40); Blood Urea Nitrogen 16 mg/dL (6-20); Calcium 10.2 mg/dL (8.5-10.5); Carbon Dioxide 29 mmol/L (22-29); Chloride 97 mmol/L (98-107); Creatinine Clr Calc Pharmacy 95.0338; Globulin 3.5 g/dL (1.3-4.6); Glomerular Filtration Rate 70.3 mL/min (90-130); Glucose 317 mg/dL (65-115); Osmolality Calculated 290 mOsm/kg (285-295); Potassium 4.2 mmol/L (3.5-5.1); Sodium 136 mmol/L (136-145); Total Protein 7.9 g/dL (6.6-8.7)
--- NOTE | 2019-11-03 22:08 | CTR_ITS ---
PROCEDURE INFORMATION: Exam: CT Abdomen And Pelvis With Contrast Exam date and time: 11/03/2019 10:16 PM Age: 54 years old Clinical indication: Abdominal pain; Localized; Right lower quadrant (rlq); Prior surgery; Surgery type: Gb, hernia TECHNIQUE: Imaging protocol: Computed tomography of the abdomen and pelvis with intravenous contrast. Radiation optimization: All CT scans at this facility use at least one of these dose optimization techniques: automated exposure control; mA and/or kV adjustment per patient size (includes targeted exams where dose is matched to clinical indication); or iterative reconstruction. Contrast material: OMNI 300; Contrast volume: 95 ml; Contrast route: INTRAVENOUS (IV); COMPARISON: CT abdomen pelvis w con* [id number] 10/18/2019 9:09 PM RADIATION DOSE METRICS: Total DLP (mGy-cm): 1795.07 FINDINGS: Lungs: The lung bases are clear. Liver: There is mild fatty infiltration of the liver. Relatively small liver with lobular contours, the appearance compatible with cirrhosis. No definite focal hepatic mass by CT. MRI could be more sensitive for detecting masses, as clinically directed. Gallbladder and bile ducts: Prior cholecystectomy, no significant biliary tree dilation. Pancreas: Unremarkable. Spleen: The spleen appears mildly to moderately enlarged with a length of 15-16 cm. No definite/significant focal abnormality or perisplenic fluid. Adrenals: Unremarkable. Kidneys and ureters: 8 mm probable cyst in the lower left kidney, unchanged. No hydronephrosis of either kidney. No visible ureteral calculus. Stomach and bowel: There are no CT findings to strongly suggest diverticulitis. Appendix: The appendix is visualized and appears normal. Intraperitoneal space: Mild to moderate amount of peritoneal fluid/ascites, similar to prior exam. No free air, or bowel distention. Vasculature: Upper abdominal varices again seen, compatible with portal hypertension. No definite/visible esophageal varices. The portal and splenic veins appear patent. No evidence for abdominal aortic aneurysm. Lymph nodes: No retroperitoneal adenopathy. Bladder: The urinary bladder appears somewhat distended at the time of scanning. The urinary bladder measures 13 x 8.5 x 10 cm, estimated volume approximately 580 cc. Please correlate clinically. Possibly some mild diffuse urinary bladder wall thickening. This may be related to the prostate enlargement. While nonspecific, this could also indicate evidence for cystitis. Please correlate clinically. Reproductive: Prostate enlargement with transverse diameter of 5 cm. Bones/joints: There is bilateral L5 spondylolysis, no significant/obvious spondylolisthesis. Soft tissues: No significant acute finding. CT/CT abdomen pelvis w con* [id number] IMPRESSION: 1. Normal appendix. 2. Cirrhosis of the liver, with evidence of portal hypertension, details above. 3. Mild to moderate amount of peritoneal fluid/ascites, similar to prior exam. 4. Mild to moderate splenomegaly. 5. Prostate enlargement, somewhat distended urinary bladder, possible mild bladder wall thickening, details above. 6. No free air or bowel distention. 7. Other findings discussed above. Radiation Dose CTDIVOL = (mGy): DLP = 1795.07 (mGy-cm)
--- NOTE | 2019-11-03 22:31 | W.ED.ABDPA2 ---
HPI - Abdominal Pain General: Chief Complaint: Abdominal Pain Stated Complaint: r abd pain Time Seen by Provider: 11/03/19 22:03 Source: patient Mode of arrival: ambulatory Limitations: no limitations History of Present Illness: HPI narrative: Alonso is a 54-year-old male comes in complaint of right lower quadrant abdominal pain. He thinks his pain is due to his liver. He states he has a history of liver cirrhosis. He has had a gallbladder removed in the past. He denies any associated fever, chills, nausea, vomiting and is unaware of any exacerbating or alleviating factors. He came in very shortly after his pain started. Associated Symptoms: Denies chills, coffee ground emesis, constipation, GI cramping, diarrhea, dysuria, fever(s), heartburn, hematochezia, hematuria, hematemesis, melena, nausea, syncope and vomiting Review of Systems Const: Denies: fever(s), chills, body aches, fatigue, malaise or diaphoresis Eyes: Denies: change in vision, blurry vision, blind spots, photophobia, eye discharge or eye redness ENMT: Denies: throat pain, odynophagia, hoarseness, swelling of lips/tongue, oral sores, ear or mastoid pain, ear discharge, change in hearing or nasal discharge Card: Denies: chest pain, palpitations, irregular heart rhythm, edema, lightheadedness, syncope, pre-syncope, dyspnea on exertion or orthopnea Resp: Denies: dyspnea, productive cough, non-productive cough, wheezing, hemoptysis or chest congestion GI: Denies: nausea, vomiting, hematemesis, coffee ground emesis, heartburn, diarrhea, constipation, GI cramping, hematochezia or melena : Denies: flank pain, dysuria, urinary frequency, urinary urgency or hematuria Musc: Denies: neck pain, back pain, extremity pain, extremity swelling, joint pain, joint swelling, joint redness, joint warmth or joint stiffness Skin/Breast: Denies: rash, pruritus, erythema, skin tenderness or jaundice Neuro: Denies: headache(s), numbness in extremities, weakness in extremities, sensory changes, lack of coordination, difficulty walking, dizziness, vertigo, confusion, Slurred speech present or seizure-like activity Jose G/Lymph: Denies: easy bruising, easy bleeding, petechiae, purpura or enlarged lymph nodes All/Imm: Denies: urticaria, throat swelling, tongue swelling, facial swelling or acute wheezing PFSH ED PFSH: Medical History Atypical chest pain Benign essential hypertension with target blood pressure below 140/90 Dyslipidemia Epilepsy Glucose intolerance Hypothyroidism Obesity Smoker Type 2 diabetes mellitus Surgical History H/O umbilical hernia repair History of appendectomy Family History Father Family history of premature coronary artery disease Diabetes Brother Family history of premature coronary artery disease Other Stroke Social History Smoking and tobacco status: current every day smoker cigarettes Packs smoked per day: 1 Years cigarettes smoked: 20 Alcohol intake: never Household members: spouse Housing: House Physical Exam Const: COMMON NORMALS: no acute distress, patient oriented x3, no limitations, healthy appearing and well nourished GENERAL APPEARANCE: cooperative, well kempt and well developed HENMT: COMMON NORMALS: normocephalic, atraumatic, external ears normal, EAC's normal and Normal external nose present HEAD & SCALP: normal to inspection, normocephalic and atraumatic FACE & SINUS: normal facial exam and face symmetric NOSE: Normal external nose present and Normal nares present EXTERNAL EAR: Yes external ears normal EXTERNAL AUDITORY CANAL: EAC's normal MOUTH: Normal oral and palatal mucosa present, lip normal and tongue normal Eye: COMMON NORMALS: Equal, round and reactive pupils present and conjunctivae normal GENERAL EYE: appearance normal, both eyes and all related structures ALIGNMENT: Yes alignment normal PERIORBITAL: periorbital findings normal EYELID: eyelids normal CONJUNCTIVA: Yes conjunctivae normal SCLERA: sclerae normal PUPIL: Yes Equal, round and reactive pupils present Neck/C-Spine: COMMON NORMALS: full ROM, no lymphadenopathy, supple, no meningeal signs and no JVD GENERAL: Yes normal visual inspection and Yes trachea midline Chest: COMMONS NORMALS: normal inspection of the chest and normal palpation of entire chest wall Resp: COMMON NORMALS: normal respiratory effort, No retractions and No use of accessory muscles EFFORT & INSPECTION: Yes able to speak in complete sentences and Yes symmetric chest movement AUSCULTATION: no crackles, no rales, no rhonchi and no wheezes Cardio: COMMON NORMALS: no JVD, regular rate, regular rhythm, S1 normal heart sound present and S2 normal heart sound present RATE: regular rate RHYTHM: regular rhythm HEART SOUNDS: S1 normal heart sound present, S2 normal heart sound present, no click, no gallops, no murmurs, no rubs and abnormal split S2 GI: COMMON NORMALS: Soft to palpation and No hepatosplenomegaly present PALPATION: Yes Soft to palpation, Yes Tenderness to palpation present (GI) Details: RLQ, No Guarding due to palpation present (GI), No Rigid due to palpation, Yes No hepatosplenomegaly present, No Hernia present, No Palpable mass present and No Pulsatile mass present : COMMON NORMALS: Yes no CVA tenderness BLADDER/KIDNEY EXAM: Yes no CVA tenderness Back/Pelvis: COMMON NORMALS: no CVA tenderness, thoracic and lumbar spine normal to inspection, no thoracic nor lumbar tenderness and thoraco-lumbar ROM normal Extremity: COMMON NORMALS: normal to inspection, full ROM, capillary refill normal, no joint enlargement, no clubbing, cyanosis or edema and no calf tenderness Neuro: COMMON NORMALS: patient oriented x3, CN's II-XII intact bilaterally, moves all extremities, no focal motor deficits and no sensory deficits noted MENINGEAL SIGNS: Yes no meningeal signs SPEECH: speech normal Psych: COMMON NORMALS: mental status grossly normal, Normal thought process present, cooperative, normal affect, speech normal and activity/motor behavior normal APPEARANCE: Yes well kempt SPEECH: Yes normal speech THOUGHT PROCESS: Normal thought process present Skin: COMMON NORMALS: no rashes or lesions noted, turgor normal, no jaundice, no petechiae and no mottling GENERAL SKIN EXAM: no rashes or lesions noted and turgor normal Course Vital Signs: Vital signs: Vital Signs Temperature 98.0 F 11/03/19 20:35 Pulse Rate 76 11/03/19 23:53 Respiratory Rate 18 11/03/19 23:53 Blood Pressure 146/74 11/03/19 23:53 Pulse Oximetry 98 11/03/19 23:53 MDM - Abdominal Pain Lab Data: Attestation: I reviewed the patient's lab results. Labs: Lab Results 11/03/19 11/03/19 11/03/19 Range/Units 21:10 21:10 23:22 WBC 5.8 (4.0-10.0) 10^3/ uL RBC 4.44 (4.1-5.3) 10^6/u L Hgb 13.4 (11.7-16.6) g/dL Hct 40.2 L (42.0-52.0) % MCV 90.5 (80-94) fL MCH 30.2 (28.0-34.0) pg MCHC 33.3 (30.0-36.0) g/dL RDW 14.0 (12.1-15.1) % Plt Count 96 L (130-400) 10^3/c mm MPV 11.1 H (7.4-10.4) fL Neut % (Auto) 64.1 % Lymph % (Auto) 21.9 % [place] % (Auto) 9.2 % Eos % (Auto) 3.5 % Baso % (Auto) 1.0 % Neut # (Auto) 3.7 (1.8-7.7) 10^3/u L Lymph # (Auto) 1.3 (0.8-4.8) 10^3/u L [place] # (Auto) 0.5 (0.2-0.9) 10^3/u L Eos # (Auto) 0.2 (0.0-0.8) 10^3/u L Baso # (Auto) 0.1 (0.0-0.1) 10^3/u L Nucleated RBC % (a uto) 0 % Nucleated RBCs # 0.0 /100WBC Sodium 136 (136-145) mmol/L Potassium 4.2 (3.5-5.1) mmol/L Chloride 97 L (98-107) mmol/L Carbon Dioxide 29 (22-29) mmol/L Anion Gap 14.2 (5-19) BUN 16 (6-20) mg/dL Creatinine 1.1 (0.7-1.2) mg/dL GFR Calculation 70.3 L (90-130) mL/min Glucose 317 H (65-115) mg/dL Calculated Osmolal ity 290 (285-295) mOsm/k g Calcium 10.2 (8.5-10.5) mg/dL Total Bilirubin 1.0 (0.15-1.2) mg/dL AST 42 H (0-40) U/L ALT 33 (0-41) U/L Alkaline Phosphata se 96 (40-130) IU/L Total Protein 7.9 (6.6-8.7) g/dL Albumin 4.4 (3.5-5.2) g/dL Globulin 3.5 (1.3-4.6) g/dL Urine Color Yellow (Yellow) Urine Appearance Clear (CLEAR) Urine pH 7 (5-7) Ur Specific Gravit y 1.010 (1.005-1.030) Urine Protein Neg (Negative) Urine Glucose (UA) 4+ H (Normal) Urine Ketones Negative (Negative) Urine Blood Neg (Negative) Urine Nitrate Negative (Negative) Urine Bilirubin Neg (NEGATIVE) Urine Urobilinogen 1 H (Negative) mg/dL Ur Leukocyte Tamica ase Negative (Negative) Imaging Data ^: CT Abd/Pel: Radiologist's impression: [place] [address] CT Scan Report Signed Patient: Alonso Golden Unit #: [id number] : [id number] Age/Sex: 54 / M ADM Date: 11/03/19 Loc: ER Room/Bed: Attending Dr: Ordering Provider/Ordering MD: Akila Youssef DO Date of Service: 11/03/19 Procedure(s): CT abdomen pelvis w con* [id number] Accession Number(s): [id number] Report Number: [id number] PROCEDURE INFORMATION: Exam: CT Abdomen And Pelvis With Contrast Exam date and time: 11/03/2019 10:16 PM Age: 54 years old Clinical indication: Abdominal pain; Localized; Right lower quadrant (rlq); Prior surgery; Surgery type: Gb, hernia TECHNIQUE: Imaging protocol: Computed tomography of the abdomen and pelvis with intravenous contrast. Radiation optimization: All CT scans at this facility use at least one of these dose optimization techniques: automated exposure control; mA and/or kV adjustment per patient size (includes targeted exams where dose is matched to clinical indication); or iterative reconstruction. Contrast material: OMNI 300; Contrast volume: 95 ml; Contrast route: INTRAVENOUS (IV); COMPARISON: CT abdomen pelvis w con* [id number] 10/18/2019 9:09 PM RADIATION DOSE METRICS: Total DLP (mGy-cm): 1795.07 FINDINGS: Lungs: The lung bases are clear. Liver: There is mild fatty infiltration of the liver. Relatively small liver with lobular contours, the appearance compatible with cirrhosis. No definite focal hepatic mass by CT. MRI could be more sensitive for detecting masses, as clinically directed. Gallbladder and bile ducts: Prior cholecystectomy, no significant biliary tree dilation. Pancreas: Unremarkable. Spleen: The spleen appears mildly to moderately enlarged with a length of 15-16 cm. No definite/significant focal abnormality or perisplenic fluid. Adrenals: Unremarkable. Kidneys and ureters: 8 mm probable cyst in the lower left kidney, unchanged. No hydronephrosis of either kidney. No visible ureteral calculus. Stomach and bowel: There are no CT findings to strongly suggest diverticulitis. Appendix: The appendix is visualized and appears normal. Intraperitoneal space: Mild to moderate amount of peritoneal fluid/ascites, similar to prior exam. No free air, or bowel distention. Vasculature: Upper abdominal varices again seen, compatible with portal hypertension. No definite/visible esophageal varices. The portal and splenic veins appear patent. No evidence for abdominal aortic aneurysm. Lymph nodes: No retroperitoneal adenopathy. Bladder: The urinary bladder appears somewhat distended at the time of scanning. The urinary bladder measures 13 x 8.5 x 10 cm, estimated volume approximately 580 cc. Please correlate clinically. Possibly some mild diffuse urinary bladder wall thickening. This may be related to the prostate enlargement. While nonspecific, this could also indicate evidence for cystitis. Please correlate clinically. Reproductive: Prostate enlargement with transverse diameter of 5 cm. Bones/joints: There is bilateral L5 spondylolysis, no significant/obvious spondylolisthesis. Soft tissues: No significant acute finding. CT/CT abdomen pelvis w con* [id number] IMPRESSION: 1. Normal appendix. 2. Cirrhosis of the liver, with evidence of portal hypertension, details above. 3. Mild to moderate amount of peritoneal fluid/ascites, similar to prior exam. 4. Mild to moderate splenomegaly. 5. Prostate enlargement, somewhat distended urinary bladder, possible mild bladder wall thickening, details above. 6. No free air or bowel distention. 7. Other findings discussed above. Radiation Dose CTDIVOL = (mGy): DLP = 1795.07 (mGy-cm) Dictated By: Arnoldo Almanzar MD Signed By: Arnoldo Almanzar MD Signed Date/Time: 11/03/192321 DD/ 19 Discharge Plan Discharge Patient Disposition: Home, Self-Care Clinical Impression: Abdominal pain Qualifiers: Abdominal location: right lower quadrant Qualified Code(s): R10.31 - Right lower quadrant pain Condition: Stable Prescriptions: No Action aspirin 81 mg tablet,chewable 81 mg PO DAILY 30 Days Qty: 30 RF: 5 nitroglycerin 0.4 mg tablet, sublingual 0.4 mg SUBLINGUAL Q5M PRN (Reason: chest pain) 30 Days Qty: 30 RF: 3 rosuvastatin [Crestor] 5 mg tablet 5 mg PO DAILY 30 Days Qty: 30 RF: 5 metoprolol tartrate 25 mg tablet 25 mg PO BID 30 Days Qty: 60 RF: 5 metformin [Glucophage] 500 mg Tablet 500 mg PO BID RF: 0 omeprazole 40 mg Capsule,Delayed Release(Dr/Ec) 40 mg PO DAILY RF: 0 levothyroxine 200 mcg Capsule 200 mcg PO DAILY RF: 0 albuterol sulfate 90 mcg/actuation HFA aerosol inhaler 1 inh INHALATION Q6H PRN (Reason: shortness of breath) Qty: 6.7 RF: 0 multivitamin [Multiple Vitamins] Tablet 1 tab PO DAILY RF: 0 lisinopril 40 mg tablet 40 mg PO DAILY RF: 0 diclofenac sodium 75 mg tablet,delayed release (DR/EC) 75 mg PO Q12H PRN (Reason: pain) Qty: 20 RF: 0 naproxen [EC-Naprosyn] 500 mg tablet,delayed release (DR/EC) 500 mg PO BID PRN (Reason: pain) Qty: 20 RF: 0 Depakote ER 500 mg Tablet Extended Release 24 Hr 500 mg PO BID RF: 0 levothyroxine 25 mcg Capsule 25 mcg PO DAILY RF: 0 Referrals: Dorita Flaherty FNP [Primary Care Provider] - 1-3 days Discharge Diet: Advance as tolerated Discharge Activity: Increase activity as tolerated Patient Instructions: Abdominal Pain (ED) Activity Restrictions/Additional Instructions: Please return to the ER immediately for any of the signs or symptoms listed on your discharge instruction sheets, worsening/changing of your symptoms, you are not getting better as quickly as expected, or for ANY other cause or concerns. Discharge Date/Time: 11/03/19 23:54 Coding Level of Care Code ED Managing Director [employer] for Chg Fwd Exam Comprehensive
[2019-11-03] MEDS: iohexol 300 mg/mL 100 mL Btl IV (22:38)
[2019-11-03 23:36] LABS: Add Urine Microscopic? NO
[2019-11-03 23:41] LABS: Urine Appearance Clear (CLEAR); Urine Color Yellow (Yellow); pH Urine 7 (5-7)
[2019-11-03 23:42] LABS: Bilirubin Urine Neg (NEGATIVE); Blood Urine Neg (Negative); Glucose Urine UA 4+ (Normal); Ketones Urine Negative (Negative); Leukocyte Esterase Urine Negative (Negative); Nitrate Urine Negative (Negative); Protein Urine Neg (Negative); Urobilinogen Urine 1 mg/dL (Negative)
[2019-11-03] MEDS: acetaminophen 500 mg Tablet 1000 MG PO (23:49)
[2019-11-03 23:53] VITALS: BP 146/74; PULSE 76; RESP 18; O2SAT 98
== END 2019-11-03 23:54 | disposition home or self-care (01) ==
PROVIDERS: Physician Assistant; Emergency Provider Emergency Medicine; PCP Nurse Practitioner Family
DX: R10.31 Right lower quadrant pain (principal); Z79.82 Long term (current) use of aspirin; I10 Essential (primary) hypertension; E78.5 Hyperlipidemia, unspecified; E11.9 Type 2 diabetes mellitus without complications; F17.210 Nicotine dependence, cigarettes, uncomplicated
CPT/HCPCS: 12345; 36415; 74177; 80053; 81003; 85025; 99281; 99283; Q9967

== ENCOUNTER 2019-11-11 22:06 | Emergency (ER) | payer MEDICAID, SELFPAY ==
[2019-11-11 23:06] VITALS: BP 98/68; PULSE 66; RESP 18; TEMP 36.5; O2SAT 98; BMI 33.0
[2019-11-12 01:49] VITALS: BP 130/83; PULSE 60; RESP 18; O2SAT 97
--- NOTE | 2019-11-12 01:53 | W.ED.GENADLT ---
HPI - General Adult General: Chief complaint: General Medical Stated complaint: poss heat exhaustion Time Seen by Provider: 11/12/19 01:47 History of Present Illness: HPI narrative: Patient comes in today for complaints of low back pain and getting overheated today while outside. Patient has a history of back problems. Patient appears well. Patient appears in mild pain. Associated symptoms: Reports malaise Review of Systems General: Reports: 10 or more systems reviewed and unremarkable except in HPI and below Const: Reports: malaise Musc: Reports: back pain PFSH ED PFSH: Medical History (Updated 11/12/19 @ 02:34 by BUD Dickerson) Atypical chest pain Benign essential hypertension with target blood pressure below 140/90 Dyslipidemia Epilepsy Glucose intolerance Hypothyroidism Obesity Smoker Type 2 diabetes mellitus Surgical History H/O umbilical hernia repair History of appendectomy Family History Father Family history of premature coronary artery disease Diabetes Brother Family history of premature coronary artery disease Other Stroke Social History Smoking and tobacco status: current every day smoker cigarettes Packs smoked per day: 1 Years cigarettes smoked: 20 Alcohol intake: never Household members: spouse Housing: House Physical Exam Const: COMMON NORMALS: no acute distress and patient oriented x3 GENERAL APPEARANCE: cooperative HENMT: COMMON NORMALS: normocephalic and Normal external nose present HEAD & SCALP: normal to inspection and normocephalic NOSE: Normal external nose present MOUTH: Normal oral and palatal mucosa present Eye: GENERAL EYE: appearance normal, both eyes and all related structures Neck/C-Spine: COMMON NORMALS: full ROM Chest: COMMONS NORMALS: normal inspection of the chest Resp: COMMON NORMALS: normal respiratory effort EFFORT & INSPECTION: Yes able to speak in complete sentences Cardio: COMMON NORMALS: regular rate and regular rhythm RATE: regular rate RHYTHM: regular rhythm GI: COMMON NORMALS: non-tender : COMMON NORMALS: Yes no CVA tenderness BLADDER/KIDNEY EXAM: Yes no CVA tenderness Back/Pelvis: COMMON NORMALS: no CVA tenderness and thoracic and lumbar spine normal to inspection Extremity: COMMON NORMALS: normal to inspection Neuro: COMMON NORMALS: patient oriented x3 and moves all extremities Psych: COMMON NORMALS: mental status grossly normal and cooperative Skin: COMMON NORMALS: no rashes or lesions noted GENERAL SKIN EXAM: no rashes or lesions noted Course Vital Signs: Vital signs: Vital Signs Temperature 97.7 F 11/11/19 23:06 Pulse Rate 80 11/12/19 02:44 Respiratory Rate 17 11/12/19 02:44 Blood Pressure 114/80 11/12/19 02:44 Pulse Oximetry 99 11/12/19 02:44 MDM - General Adult MDM Narrative: Medical decision making narrative: Patient comes in today for complaints of becoming overheated yesterday. Patient also reports back pain due to having to walk in the heat. On exam patient has tenderness in the muscle of the lumbar spine. Negative leg lift test. Respirations are even lungs are clear to auscultation. Vital signs are normal. Differential diagnosis includes heat exhaustion, dehydration, lumbar strain, sciatica. CBC was normal. BMP noted a creatinine 1.4 but otherwise normal electrolytes. Reviewed exam with patient recommended treatment with some hydrocodone for 2 to 3 days as needed for pain. Encourage plenty of fluids and activity. Reviewed recommendations to stay out of the heat avoid use of alcohol and follow-up with primary care for recheck. Lab Data: Labs: Lab Results 11/12/19 11/12/19 Range/Units 02:00 02:00 WBC 6.7 (4.0-10.0) 10^3/ uL RBC 4.48 (4.1-5.3) 10^6/u L Hgb 13.6 (11.7-16.6) g/dL Hct 41.3 L (42.0-52.0) % MCV 92.2 (80-94) fL MCH 30.4 (28.0-34.0) pg MCHC 32.9 (30.0-36.0) g/dL RDW 14.5 (12.1-15.1) % Plt Count 123 L (130-400) 10^3/c mm MPV 10.7 H (7.4-10.4) fL Neut % (Auto) 57.3 % Lymph % (Auto) 25.0 % [place] % (Auto) 10.0 % Eos % (Auto) 5.7 % Baso % (Auto) 1.3 % Neut # (Auto) 3.8 (1.8-7.7) 10^3/u L Lymph # (Auto) 1.7 (0.8-4.8) 10^3/u L [place] # (Auto) 0.7 (0.2-0.9) 10^3/u L Eos # (Auto) 0.4 (0.0-0.8) 10^3/u L Baso # (Auto) 0.1 (0.0-0.1) 10^3/u L Nucleated RBC % (a uto) 0 % Nucleated RBCs # 0.0 /100WBC Sodium 139 (136-145) mmol/L Potassium 4.3 (3.5-5.1) mmol/L Chloride 101 (98-107) mmol/L Carbon Dioxide 29 (22-29) mmol/L Anion Gap 13.3 (5-19) BUN 15 (6-20) mg/dL Creatinine 1.4 H (0.7-1.2) mg/dL GFR Calculation 53.2 L (90-130) mL/min Glucose 141 H (65-115) mg/dL Calculated Osmolal ity 287 (285-295) mOsm/k g Calcium 10.0 (8.5-10.5) mg/dL Discharge Plan Discharge Patient Disposition: Home, Self-Care Clinical Impression: Heat exhaustion Qualifiers: Encounter type: initial encounter Qualified Code(s): T67.5XXA - Heat exhaustion, unspecified, initial encounter Back pain Qualifiers: Back pain location: low back pain Chronicity: acute Back pain laterality: unspecified Sciatica presence: without sciatica Qualified Code(s): M54.5 - Low back pain Condition: Stable Prescriptions: New hydrocodone-acetaminophen 5-325 mg tablet 1 tab PO Q6H PRN (Reason: pain (scale score 7-10)) Qty: 7 RF: 0 ondansetron HCl 4 mg tablet 4 mg PO Q8H PRN (Reason: nausea and vomiting) Qty: 7 RF: 0 No Action aspirin 81 mg tablet,chewable 81 mg PO DAILY 30 Days Qty: 30 RF: 5 nitroglycerin 0.4 mg tablet, sublingual 0.4 mg SUBLINGUAL Q5M PRN (Reason: chest pain) 30 Days Qty: 30 RF: 3 rosuvastatin [Crestor] 5 mg tablet 5 mg PO DAILY 30 Days Qty: 30 RF: 5 metoprolol tartrate 25 mg tablet 25 mg PO BID 30 Days Qty: 60 RF: 5 metformin [Glucophage] 500 mg Tablet 500 mg PO BID RF: 0 omeprazole 40 mg Capsule,Delayed Release(Dr/Ec) 40 mg PO DAILY RF: 0 levothyroxine 200 mcg Capsule 200 mcg PO DAILY RF: 0 albuterol sulfate 90 mcg/actuation HFA aerosol inhaler 1 inh INHALATION Q6H PRN (Reason: shortness of breath) Qty: 6.7 RF: 0 multivitamin [Multiple Vitamins] Tablet 1 tab PO DAILY RF: 0 lisinopril 40 mg tablet 40 mg PO DAILY RF: 0 diclofenac sodium 75 mg tablet,delayed release (DR/EC) 75 mg PO Q12H PRN (Reason: pain) Qty: 20 RF: 0 naproxen [EC-Naprosyn] 500 mg tablet,delayed release (DR/EC) 500 mg PO BID PRN (Reason: pain) Qty: 20 RF: 0 Depakote ER 500 mg Tablet Extended Release 24 Hr 500 mg PO BID RF: 0 levothyroxine 25 mcg Capsule 25 mcg PO DAILY RF: 0 Discharge Orders: Discharge Order (Routine); Ordered 11/12/19 Ordered By: Alexis Brian Referrals: Dorita Flaherty FNP [Primary Care Provider] - Discharge Diet: Usual diet Discharge Activity: Increase activity as tolerated Patient Instructions: Heat Exhaustion (ED) Activity Restrictions/Additional Instructions: Drink plenty of fluids. Use electrolyte solution such as Gatorade every 8 hours with plenty of water when exposed to heat and sweating profusely. Follow-up with primary care in 1 week. Return to the ER for worsening symptoms or new concerns. Discharge Date/Time: 11/12/19 02:45 Coding Level of Care Code ED Television Audio Engineer for Chg Fwd Exam Comprehensive
[2019-11-12] MEDS: HYDROcodone-acetaminophen 5-325 mg Tablet 1 TAB PO (02:19)
[2019-11-12 02:21] LABS: Anion Gap 13.3 (5-19); Basophils # 0.1 10^3/uL (0.0-0.1); Basophils % 1.3 %; Blood Urea Nitrogen 15 mg/dL (6-20); Carbon Dioxide 29 mmol/L (22-29); Chloride 101 mmol/L (98-107); Eosinophils # 0.4 10^3/uL (0.0-0.8); Eosinophils % 5.7 %; Glomerular Filtration Rate 53.2 mL/min (90-130); Glucose 141 mg/dL (65-115); Hematocrit 41.3 % (42.0-52.0); Hemoglobin 13.6 g/dL (11.7-16.6); Lymphocytes # 1.7 10^3/uL (0.8-4.8); Mean Corpuscular HGB Conc 32.9 g/dL (30.0-36.0); Mean Corpuscular Hemoglobin 30.4 pg (28.0-34.0); Mean Corpuscular Volume 92.2 fL (80-94); Mean Platelet Volume 10.7 fL (7.4-10.4); Monocytes # 0.7 10^3/uL (0.2-0.9); Neutrophils # 3.8 10^3/uL (1.8-7.7); Neutrophils % 57.3 %; Nucleated Red Blood Cells % 0 %; Osmolality Calculated 287 mOsm/kg (285-295); Platelet Count 123 10^3/cmm (130-400); Potassium 4.3 mmol/L (3.5-5.1); Red Blood Count 4.48 10^6/uL (4.1-5.3); Red Cell Distribution Width 14.5 % (12.1-15.1); Sodium 139 mmol/L (136-145); White Blood Count 6.7 10^3/uL (4.0-10.0)
[2019-11-12 02:44] VITALS: BP 114/80; PULSE 80; RESP 17; O2SAT 99
== END 2019-11-12 02:45 | disposition home or self-care (01) ==
PROVIDERS: Emergency Provider Nurse Practitioner Family; PCP Nurse Practitioner Family
DX: M54.5 Low back pain (principal); T67.5XXA Heat exhaustion, unspecified, initial encounter; Z79.82 Long term (current) use of aspirin; I10 Essential (primary) hypertension; E78.5 Hyperlipidemia, unspecified; E11.9 Type 2 diabetes mellitus without complications; F17.210 Nicotine dependence, cigarettes, uncomplicated
CPT/HCPCS: 12345; 36415; 80048; 85025; 99282; 99283

== ENCOUNTER 2019-11-19 02:57 | Emergency (ER) | payer MEDICAID, SELFPAY ==
[2019-11-19 03:13] VITALS: BP 128/83; PULSE 89; RESP 16; TEMP 36.6; O2SAT 96; BMI 33.0
--- NOTE | 2019-11-19 03:19 | XRR_ITS ---
PROCEDURE INFORMATION: Exam: XR Right Knee Exam date and time: 11/19/2019 4:40 AM Age: 54 years old Clinical indication: Patient HX: Twisted right knee; Upper leg pain on sides of knee TECHNIQUE: Imaging protocol: XR Right knee. Views: 3 views. COMPARISON: No relevant prior studies available. FINDINGS: Bones/joints: No acute bony injury or malalignment. Soft tissues: Unremarkable soft tissues. XR/XR knee RT 3V* [id number] IMPRESSION: No acute bony injury or malalignment.
--- NOTE | 2019-11-19 04:43 | W.ED.EXTPRO ---
HPI - Extremity Problem General: Chief complaint: Extremity Injury, Lower Stated complaint: Right knee pain Time Seen by Provider: 11/19/19 04:35 Source: patient Mode of arrival: ambulatory Limitations: no limitations History of Present Illness: HPI Narrative: Alonso is a 54-year-old male comes in complaining of right knee pain. He states he twisted his knee while having intercourse with his . He denies any radicular symptoms, upper leg pain only pain on the sides of his knee. There is no swelling, no redness and denies any other injuries. Associated symptoms: Deny chest pain, fever(s) or rash Review of Systems Const: Denies: fever(s), chills, body aches, fatigue, malaise or diaphoresis Eyes: Denies: change in vision, blurry vision, blind spots, photophobia, eye discharge or eye redness ENMT: Denies: throat pain, odynophagia, hoarseness, swelling of lips/tongue, oral sores, ear or mastoid pain, ear discharge, change in hearing or nasal discharge Card: Denies: chest pain, palpitations, irregular heart rhythm, edema, lightheadedness, syncope, pre-syncope, dyspnea on exertion or orthopnea Resp: Denies: dyspnea, productive cough, non-productive cough, wheezing, hemoptysis or chest congestion GI: Denies: abdominal pain, nausea, vomiting, hematemesis, coffee ground emesis, heartburn, diarrhea, constipation, GI cramping, hematochezia or melena : Denies: flank pain, dysuria, urinary frequency, urinary urgency or hematuria Musc: Denies: neck pain, back pain, extremity pain, extremity swelling, joint swelling, joint redness, joint warmth or joint stiffness Skin/Breast: Denies: rash, pruritus, erythema, skin tenderness or jaundice Neuro: Denies: headache(s), numbness in extremities, weakness in extremities, sensory changes, lack of coordination, difficulty walking, dizziness, vertigo, confusion, Slurred speech present or seizure-like activity Jose G/Lymph: Denies: easy bruising, easy bleeding, petechiae, purpura or enlarged lymph nodes All/Imm: Denies: urticaria, throat swelling, tongue swelling, facial swelling or acute wheezing PFS ED PFSH: Medical History Atypical chest pain Benign essential hypertension with target blood pressure below 140/90 Dyslipidemia Epilepsy Glucose intolerance Hypothyroidism Obesity Smoker Type 2 diabetes mellitus Surgical History H/O umbilical hernia repair History of appendectomy Family History Father Family history of premature coronary artery disease Diabetes Brother Family history of premature coronary artery disease Other Stroke Social History Smoking and tobacco status: current every day smoker cigarettes Packs smoked per day: 1 Years cigarettes smoked: 20 Alcohol intake: never Household members: spouse Housing: House Physical Exam Extremity: NARRATIVE EXTREMITY EXAM: Right knee with tenderness to palpation diffusely. No swelling, no ecchymosis and no warmth to the touch. Neurovascular intact distal. Course Vital Signs: Vital signs: Vital Signs Temperature 97.8 F 11/19/19 03:13 Pulse Rate 89 11/19/19 03:13 Respiratory Rate 16 11/19/19 03:13 Blood Pressure 128/83 11/19/19 03:13 Pulse Oximetry 96 11/19/19 03:13 MDM - Extremity (Nontraumatic) Imaging Data^: Right Knee: My impression: No acute fractures or dislocations. Discharge Plan Discharge Patient Disposition: Home, Self-Care Clinical Impression: Right knee sprain Qualifiers: Encounter type: initial encounter Involved ligament of knee: unspecified ligament Qualified Code(s): S83.91XA - Sprain of unspecified site of right knee, initial encounter Condition: Stable Prescriptions: No Action aspirin 81 mg tablet,chewable 81 mg PO DAILY 30 Days Qty: 30 RF: 5 nitroglycerin 0.4 mg tablet, sublingual 0.4 mg SUBLINGUAL Q5M PRN (Reason: chest pain) 30 Days Qty: 30 RF: 3 rosuvastatin [Crestor] 5 mg tablet 5 mg PO DAILY 30 Days Qty: 30 RF: 5 metoprolol tartrate 25 mg tablet 25 mg PO BID 30 Days Qty: 60 RF: 5 metformin [Glucophage] 500 mg Tablet 500 mg PO BID RF: 0 omeprazole 40 mg Capsule,Delayed Release(Dr/Ec) 40 mg PO DAILY RF: 0 levothyroxine 200 mcg Capsule 200 mcg PO DAILY RF: 0 albuterol sulfate 90 mcg/actuation HFA aerosol inhaler 1 inh INHALATION Q6H PRN (Reason: shortness of breath) Qty: 6.7 RF: 0 multivitamin [Multiple Vitamins] Tablet 1 tab PO DAILY RF: 0 lisinopril 40 mg tablet 40 mg PO DAILY RF: 0 diclofenac sodium 75 mg tablet,delayed release (DR/EC) 75 mg PO Q12H PRN (Reason: pain) Qty: 20 RF: 0 naproxen [EC-Naprosyn] 500 mg tablet,delayed release (DR/EC) 500 mg PO BID PRN (Reason: pain) Qty: 20 RF: 0 Depakote ER 500 mg Tablet Extended Release 24 Hr 500 mg PO BID RF: 0 levothyroxine 25 mcg Capsule 25 mcg PO DAILY RF: 0 hydrocodone-acetaminophen 5-325 mg tablet 1 tab PO Q6H PRN (Reason: pain (scale score 7-10)) Qty: 7 RF: 0 ondansetron HCl 4 mg tablet 4 mg PO Q8H PRN (Reason: nausea and vomiting) Qty: 7 RF: 0 Discharge Orders: Discharge Order (Routine); Ordered 11/19/19 Ordered By: Akila Youssef Referrals: Dorita Flaherty FNP [Primary Care Provider] - Kishor Nowak DO [Physician] - 4-7 days Discharge Diet: Usual diet Discharge Activity: Limit activity as instructed Patient Instructions: Knee Sprain (ED) Activity Restrictions/Additional Instructions: Please return to the ER immediately for any of the signs or symptoms listed on your discharge instruction sheets, worsening/changing of your symptoms, you are not getting better as quickly as expected, or for ANY other cause or concerns. Do not bear weight on your knee if you have pain. Take Tylenol and Motrin [id number] as needed for pain. Be certain to follow-up with Dr. Nowak. Use your knee immobilizer and crutches at all times until seen by him. Coding Level of Care Code ED Shipwright Supervisor for [facility]va Bunn
[2019-11-19] MEDS: ibuprofen 200 mg Tablet 400 MG PO (05:00)
[2019-11-19 05:08] VITALS: RESP 16; O2SAT 96
--- NOTE | 2019-11-22 11:27 | DCPLANNER ---
general operations manager had message to schedule a follow up appointment for patient with ortho. general operations manager called the ortho clinic, spoke with Paula, gave clinic patients information. general operations manager was told that patients information would be printed and reviewed. Clinic will call patient with appointment information.
--- NOTE | 2019-11-23 08:48 | DCPLANNER ---
ocean freight manager spoke with Pat from ortho, who stated that after patients information was reviewed that patient is to follow up with primary care. If patient is still experiencing pain, after follow up with primary care, that primary care can refer patient with work up to ortho. The ortho clinic has spoken with patient about this.
== END 2019-11-19 05:11 | disposition home or self-care (01) ==
PROVIDERS: Emergency Provider Emergency Medicine; PCP Nurse Practitioner Family
DX: S83.91XA Sprain of unspecified site of right knee, initial encounter (principal); Z79.82 Long term (current) use of aspirin; Z79.84 Long term (current) use of oral hypoglycemic drugs; I10 Essential (primary) hypertension; E78.5 Hyperlipidemia, unspecified; E11.9 Type 2 diabetes mellitus without complications; F17.210 Nicotine dependence, cigarettes, uncomplicated; X50.1XXA Overexertion from prolonged static or awkward postures, initial encounter
CPT/HCPCS: 12345; 29530; 73562; 99281; 99283; E0114

== ENCOUNTER 2019-11-19 19:20 | Emergency (ER) | payer MEDICAID, SELFPAY ==
[2019-11-19 19:26] VITALS: BP 148/89; PULSE 75; RESP 14; TEMP 36.6; O2SAT 97; BMI 33.0
[2019-11-19 19:34] VITALS: PULSE 78
--- NOTE | 2019-11-19 19:34 | W.ED.EXTPRO ---
HPI - Extremity Problem General: Chief complaint: Extremity Problem,Nontraumatic Stated complaint: leg pain Time Seen by Provider: 11/19/19 19:30 Source: patient Mode of arrival: ambulatory Limitations: no limitations History of Present Illness: HPI Narrative: 54-year-old male who states he hurt his knee last night. He was seen here and had an x-ray that was negative. Patient states that he does not prescribed pain meds and his pain is been worsening. His pain is currently an 8 out of 10. He is able to walk. Patient denies any fevers. Denies any other pain currently. MD Complaint: extremity pain Onset (ago): day(s) Pain Consistency: constant Location: right Severity scale (1-10): 6 Associated symptoms: Deny chest pain, fever(s) or rash Review of Systems Const: Denies: fever(s), chills, body aches or change in appetite Eyes: Denies: blurry vision or eye discomfort ENMT: Denies: throat pain or dental pain Card: Denies: chest pain Resp: Denies: dyspnea GI: Denies: abdominal pain, nausea, vomiting or diarrhea : Denies: dysuria Musc: Reports: joint pain Skin/Breast: Denies: rash Neuro: Denies: headache(s) Psych: Denies: depression Jose G/Lymph: Denies: easy bruising All/Imm: Denies: urticaria PFSH ED PFSH: Medical History (Updated 11/19/19 @ 19:34 by Kerry Jeter MD) Atypical chest pain Benign essential hypertension with target blood pressure below 140/90 Dyslipidemia Epilepsy Glucose intolerance Hypothyroidism Obesity Smoker Type 2 diabetes mellitus Surgical History H/O umbilical hernia repair History of appendectomy Family History Father Family history of premature coronary artery disease Diabetes Brother Family history of premature coronary artery disease Other Stroke Social History Smoking and tobacco status: current every day smoker cigarettes Packs smoked per day: 1 Years cigarettes smoked: 20 Alcohol intake: never Household members: spouse Housing: House Physical Exam Const: COMMON NORMALS: no acute distress, patient oriented x3 and healthy appearing HENMT: COMMON NORMALS: normocephalic and atraumatic HEAD & SCALP: normocephalic and atraumatic Eye: COMMON NORMALS: Equal, round and reactive pupils present and EOMs intact bilaterally PUPIL: Yes Equal, round and reactive pupils present Neck/C-Spine: COMMON NORMALS: full ROM and supple Chest: COMMONS NORMALS: normal inspection of the chest and normal palpation of entire chest wall Resp: COMMON NORMALS: normal respiratory effort, No retractions, No use of accessory muscles and clear to auscultation bilaterally AUSCULTATION: clear to auscultation bilaterally Cardio: COMMON NORMALS: regular rate, regular rhythm and No murmurs present (Cardio) RATE: regular rate RHYTHM: regular rhythm GI: COMMON NORMALS: Normal to inspection, nondistended, normoactive bowel sounds present, Soft to palpation, non-tender and no masses PALPATION: Yes Soft to palpation Extremity: COMMON NORMALS: normal to inspection and full ROM NARRATIVE EXTREMITY EXAM: Slight tenderness over right knee with no obvious deformity full range of motion Neuro: COMMON NORMALS: patient oriented x3, moves all extremities and no focal motor deficits Psych: COMMON NORMALS: mental status grossly normal, Normal thought process present and cooperative THOUGHT PROCESS: Normal thought process present Skin: COMMON NORMALS: no rashes or lesions noted and no wounds GENERAL SKIN EXAM: no rashes or lesions noted Course Vital Signs: Vital signs: Vital Signs Temperature 97.9 F 11/19/19 19:26 Pulse Rate 75 11/19/19 19:26 Respiratory Rate 14 11/19/19 19:26 Blood Pressure 148/89 11/19/19 19:26 Pulse Oximetry 97 11/19/19 19:26 MDM - Extremity (Nontraumatic) MDM Narrative: Medical decision making narrative: Patient presents with knee pain from yesterday. X-ray yesterday is negative and he is well-appearing here with no signs of joint infection. He is stable for discharge and is to return if worsening. Discharge Plan Discharge Patient Disposition: Home, Self-Care Clinical Impression: Right knee sprain Qualifiers: Encounter type: subsequent encounter Condition: Stable Prescriptions: New Naprosyn 500 mg tablet 500 mg PO BID PRN (Reason: pain) Qty: 20 RF: 0 No Action aspirin 81 mg tablet,chewable 81 mg PO DAILY 30 Days Qty: 30 RF: 5 nitroglycerin 0.4 mg tablet, sublingual 0.4 mg SUBLINGUAL Q5M PRN (Reason: chest pain) 30 Days Qty: 30 RF: 3 rosuvastatin [Crestor] 5 mg tablet 5 mg PO DAILY 30 Days Qty: 30 RF: 5 metoprolol tartrate 25 mg tablet 25 mg PO BID 30 Days Qty: 60 RF: 5 metformin [Glucophage] 500 mg Tablet 500 mg PO BID RF: 0 omeprazole 40 mg Capsule,Delayed Release(Dr/Ec) 40 mg PO DAILY RF: 0 levothyroxine 200 mcg Capsule 200 mcg PO DAILY RF: 0 albuterol sulfate 90 mcg/actuation HFA aerosol inhaler 1 inh INHALATION Q6H PRN (Reason: shortness of breath) Qty: 6.7 RF: 0 multivitamin [Multiple Vitamins] Tablet 1 tab PO DAILY RF: 0 lisinopril 40 mg tablet 40 mg PO DAILY RF: 0 diclofenac sodium 75 mg tablet,delayed release (DR/EC) 75 mg PO Q12H PRN (Reason: pain) Qty: 20 RF: 0 naproxen [EC-Naprosyn] 500 mg tablet,delayed release (DR/EC) 500 mg PO BID PRN (Reason: pain) Qty: 20 RF: 0 Depakote ER 500 mg Tablet Extended Release 24 Hr 500 mg PO BID RF: 0 levothyroxine 25 mcg Capsule 25 mcg PO DAILY RF: 0 hydrocodone-acetaminophen 5-325 mg tablet 1 tab PO Q6H PRN (Reason: pain (scale score 7-10)) Qty: 7 RF: 0 ondansetron HCl 4 mg tablet 4 mg PO Q8H PRN (Reason: nausea and vomiting) Qty: 7 RF: 0 Discharge Orders: Discharge Order (Routine); Ordered 11/19/19 Ordered By: Kerry Jeter Referrals: Dorita Flaherty FNP [Primary Care Provider] - Discharge Diet: Advance as tolerated Discharge Activity: Resume usual activity Patient Instructions: Knee Pain (ED) Coding Level of Care Code ED Vice President Client Services for [facility]
[2019-11-19] MEDS: ketorolac 30 mg/mL INJ IM (19:37)
[2019-11-19 19:44] VITALS: BP 133/67; PULSE 78; RESP 17; O2SAT 99
== END 2019-11-19 19:47 | disposition home or self-care (01) ==
PROVIDERS: Emergency Provider Emergency Medicine; PCP Nurse Practitioner Family
DX: S83.91XA Sprain of unspecified site of right knee, initial encounter (principal); X58.XXXA Exposure to other specified factors, initial encounter; Z79.82 Long term (current) use of aspirin; Z79.84 Long term (current) use of oral hypoglycemic drugs; I10 Essential (primary) hypertension; E78.5 Hyperlipidemia, unspecified; E11.9 Type 2 diabetes mellitus without complications; F17.210 Nicotine dependence, cigarettes, uncomplicated
CPT/HCPCS: 12345; 96372; 99281; 99283; J1885

== ENCOUNTER 2019-11-25 16:16 | Emergency (ER) | payer MEDICAID, SELFPAY ==
[2019-11-25 16:18] VITALS: BP 129/84; PULSE 79; RESP 18; TEMP 37; O2SAT 94; BMI 34.1
--- NOTE | 2019-11-25 18:23 | ED_ITS ---
HPI - General Adult General: Chief complaint: General Medical Stated complaint: HEAT EXHAUSTION Time Seen by Provider: 11/25/19 18:04 Source: patient Mode of arrival: ambulatory Limitations: no limitations History of Present Illness: HPI narrative: Patient comes in today for complaints of becoming overheated and having low back pain. Patient appears well. Patient appears in no acute distress. Patient appears in mild pain. Patient states that about 1230 this afternoon he got overheated and since that time he has had just not felt right. Patient also complains of low back pain. Patient does have a history of diabetes and chronic low back pain. Associated symptoms: Reports malaise Review of Systems General: Reports: 10 or more systems reviewed and unremarkable except in HPI and below Const: Reports: malaise Musc: Reports: back pain PFSH ED PFSH: Medical History (Updated 11/25/19 @ 19:31 by BUD Dickerson) Atypical chest pain Benign essential hypertension with target blood pressure below 140/90 Dyslipidemia Epilepsy Glucose intolerance Hypothyroidism Obesity Smoker Type 2 diabetes mellitus Surgical History H/O umbilical hernia repair History of appendectomy Family History Father Family history of premature coronary artery disease Diabetes Brother Family history of premature coronary artery disease Other Stroke Social History Smoking and tobacco status: current every day smoker cigarettes Packs smoked per day: 1 Years cigarettes smoked: 20 Alcohol intake: never Household members: spouse Housing: House Physical Exam Const: COMMON NORMALS: no acute distress and patient oriented x3 GENERAL APPEARANCE: cooperative HENMT: COMMON NORMALS: normocephalic, TM's normal bilaterally and Normal external nose present HEAD & SCALP: normal to inspection and normocephalic NOSE: Normal external nose present TYMPANIC MEMBRANE: TM's normal bilaterally MOUTH: Normal oral and palatal mucosa present THROAT: posterior oropharynx normal Eye: GENERAL EYE: appearance normal, both eyes and all related structures Neck/C-Spine: COMMON NORMALS: full ROM Lymph: LYMPHATIC: no lymphadenopathy noted Chest: COMMONS NORMALS: normal inspection of the chest Resp: COMMON NORMALS: normal respiratory effort EFFORT & INSPECTION: Yes able to speak in complete sentences Cardio: COMMON NORMALS: regular rate and regular rhythm RATE: regular rate RHYTHM: regular rhythm GI: COMMON NORMALS: non-tender : COMMON NORMALS: Yes no CVA tenderness BLADDER/KIDNEY EXAM: Yes no CVA tenderness Back/Pelvis: COMMON NORMALS: no CVA tenderness LUMBAR SPINE/LOWER BACK: Yes paraspinal muscle tenderness Extremity: COMMON NORMALS: normal to inspection Neuro: COMMON NORMALS: patient oriented x3 and moves all extremities Psych: COMMON NORMALS: mental status grossly normal and cooperative Skin: COMMON NORMALS: no rashes or lesions noted GENERAL SKIN EXAM: no rashes or lesions noted Course Vital Signs: Vital signs: Vital Signs Temperature 98.6 F 11/25/19 16:18 Pulse Rate 62 11/25/19 19:07 Respiratory Rate 16 11/25/19 19:07 Blood Pressure 143/87 11/25/19 19:07 Pulse Oximetry 97 11/25/19 19:07 MDM - General Adult MDM Narrative: Medical decision making narrative: Patient comes in today for concerns of heat related injury. Patient also complains of low back pain which is chronic for him. Exam notes abdomen soft nontender. No edema is noted in the extremities. [place] is moist. Vital signs are normal. Differential diagnosis includes but not limited to heat exhaustion, malingering, chronic low back pain. Laboratory values were no change from prior labs. Encourage plenty of fluids follow-up with primary care. Was given ketorolac 30 mg for his complaints of low back pain. Patient should return to the ER for new concerns. Patient reports understanding. Lab Data: Labs: Lab Results 11/25/19 11/25/19 Range/Units 18:42 18:42 WBC 7.0 (4.0-10.0) 10^3/ uL RBC 4.48 (4.1-5.3) 10^6/u L Hgb 13.7 (11.7-16.6) g/dL Hct 41.3 L (42.0-52.0) % MCV 92.2 (80-94) fL MCH 30.6 (28.0-34.0) pg MCHC 33.2 (30.0-36.0) g/dL RDW 14.5 (12.1-15.1) % Plt Count 115 L (130-400) 10^3/c mm MPV 10.4 (7.4-10.4) fL Neut % (Auto) 61.7 % Lymph % (Auto) 23.4 % [place] % (Auto) 8.3 % Eos % (Auto) 4.6 % Baso % (Auto) 1.6 % Neut # (Auto) 4.31 (1.8-7.7) 10^3/u L Lymph # (Auto) 1.6 (0.8-4.8) 10^3/u L [place] # (Auto) 0.6 (0.2-0.9) 10^3/u L Eos # (Auto) 0.3 (0.0-0.8) 10^3/u L Baso # (Auto) 0.1 (0.0-0.1) 10^3/u L Nucleated RBC % (a uto) 0 % Nucleated RBCs # 0.0 /100WBC Sodium 140 (136-145) mmol/L Potassium 4.0 (3.5-5.1) mmol/L Chloride 103 (98-107) mmol/L Carbon Dioxide 26 (22-29) mmol/L Anion Gap 15.0 (5-19) BUN 17 (6-20) mg/dL Creatinine 1.3 H (0.7-1.2) mg/dL GFR Calculation 58.0 L (90-130) mL/min Glucose 170 H (65-115) mg/dL Calculated Osmolal ity 290 (285-295) mOsm/k g Calcium 9.9 (8.5-10.5) mg/dL Discharge Plan Discharge Patient Disposition: Home, Self-Care Clinical Impression: Heat effect Qualifiers: Encounter type: initial encounter Qualified Code(s): T67.9XXA - Effect of heat and light, unspecified, initial encounter Back pain Qualifiers: Back pain location: low back pain Chronicity: chronic Back pain laterality: unspecified Sciatica presence: unspecified whether sciatica present Qualified Code(s): M54.5 - Low back pain Condition: Stable Prescriptions: No Action aspirin 81 mg tablet,chewable 81 mg PO DAILY 30 Days Qty: 30 RF: 5 nitroglycerin 0.4 mg tablet, sublingual 0.4 mg SUBLINGUAL Q5M PRN (Reason: chest pain) 30 Days Qty: 30 RF: 3 rosuvastatin [Crestor] 5 mg tablet 5 mg PO DAILY 30 Days Qty: 30 RF: 5 metoprolol tartrate 25 mg tablet 25 mg PO BID 30 Days Qty: 60 RF: 5 metformin [Glucophage] 500 mg Tablet 500 mg PO BID RF: 0 omeprazole 40 mg Capsule,Delayed Release(Dr/Ec) 40 mg PO DAILY RF: 0 levothyroxine 200 mcg Capsule 200 mcg PO DAILY RF: 0 albuterol sulfate 90 mcg/actuation HFA aerosol inhaler 1 inh INHALATION Q6H PRN (Reason: shortness of breath) Qty: 6.7 RF: 0 multivitamin [Multiple Vitamins] Tablet 1 tab PO DAILY RF: 0 lisinopril 40 mg tablet 40 mg PO DAILY RF: 0 diclofenac sodium 75 mg tablet,delayed release (DR/EC) 75 mg PO Q12H PRN (Reason: pain) Qty: 20 RF: 0 naproxen [EC-Naprosyn] 500 mg tablet,delayed release (DR/EC) 500 mg PO BID PRN (Reason: pain) Qty: 20 RF: 0 Depakote ER 500 mg Tablet Extended Release 24 Hr 500 mg PO BID RF: 0 levothyroxine 25 mcg Capsule 25 mcg PO DAILY RF: 0 hydrocodone-acetaminophen 5-325 mg tablet 1 tab PO Q6H PRN (Reason: pain (scale score 7-10)) Qty: 7 RF: 0 ondansetron HCl 4 mg tablet 4 mg PO Q8H PRN (Reason: nausea and vomiting) Qty: 7 RF: 0 Naprosyn 500 mg tablet 500 mg PO BID PRN (Reason: pain) Qty: 20 RF: 0 Discharge Orders: Discharge Order (Routine); Ordered 11/25/19 Ordered By: Alexis Brian Referrals: Dorita Flaherty FNP [Primary Care Provider] - Discharge Diet: Usual diet Discharge Activity: Increase activity as tolerated Activity Restrictions/Additional Instructions: Continue routine medications. Avoid the heat of the day. Follow-up with primary care for further treatment or evaluation. Return to the ER for new concerns. Coding Level of Care Code ED Extrusion Operator for Marva Fwd Exam Comprehensive
[2019-11-25 18:48] LABS: Basophils # 0.1 10^3/uL (0.0-0.1); Basophils % 1.6 %; Eosinophils # 0.3 10^3/uL (0.0-0.8); Eosinophils % 4.6 %; Hematocrit 41.3 % (42.0-52.0); Hemoglobin 13.7 g/dL (11.7-16.6); Lymphocytes # 1.6 10^3/uL (0.8-4.8); Lymphocytes % 23.4 %; Mean Corpuscular HGB Conc 33.2 g/dL (30.0-36.0); Mean Corpuscular Hemoglobin 30.6 pg (28.0-34.0); Mean Corpuscular Volume 92.2 fL (80-94); Mean Platelet Volume 10.4 fL (7.4-10.4); Monocytes # 0.6 10^3/uL (0.2-0.9); Monocytes % 8.3 %; Neutrophils # 4.31 10^3/uL (1.8-7.7); Neutrophils % 61.7 %; Nucleated Red Blood Cells % 0 %; Platelet Count 115 10^3/cmm (130-400); Red Blood Count 4.48 10^6/uL (4.1-5.3); Red Cell Distribution Width 14.5 % (12.1-15.1)
[2019-11-25 19:07] VITALS: BP 143/87; PULSE 62; RESP 16; O2SAT 97
[2019-11-25] MEDS: ketorolac 30 mg/mL INJ IM (19:11)
[2019-11-25 19:17] LABS: Blood Urea Nitrogen 17 mg/dL (6-20); Calcium 9.9 mg/dL (8.5-10.5); Carbon Dioxide 26 mmol/L (22-29); Chloride 103 mmol/L (98-107); Glucose 170 mg/dL (65-115); Osmolality Calculated 290 mOsm/kg (285-295); Sodium 140 mmol/L (136-145)
[2019-11-25 19:38] VITALS: BP 131/74; PULSE 65; RESP 18; O2SAT 97
== END 2019-11-25 19:42 | disposition home or self-care (01) ==
PROVIDERS: Nurse Practitioner Family; Emergency Provider Nurse Practitioner Family; PCP Nurse Practitioner Family
DX: T67.9XXA Effect of heat and light, unspecified, initial encounter (principal); G89.29 Other chronic pain; M54.5 Low back pain; X30.XXXA Exposure to excessive natural heat, initial encounter; Z79.82 Long term (current) use of aspirin; Z79.84 Long term (current) use of oral hypoglycemic drugs; I10 Essential (primary) hypertension; E78.5 Hyperlipidemia, unspecified; E11.9 Type 2 diabetes mellitus without complications; F17.210 Nicotine dependence, cigarettes, uncomplicated
CPT/HCPCS: 12345; 80048; 85025; 96372; 99281; 99283; J1885

== ENCOUNTER → 2020-03-08 08:33 | Outpatient (BNVA) | payer MEDICAID, SELFPAY | PROVIDERS: PCP Nurse Practitioner Family; Referring Provider Nurse Practitioner Family; Visit Provider Anesthesiology Pain Medicine | DX: M51.16 Intervertebral disc disorders with radiculopathy, lumbar region (principal); M51.36 Other intervertebral disc degeneration, lumbar region; M47.816 Spondylosis without myelopathy or radiculopathy, lumbar region; M48.061 Spinal stenosis, lumbar region without neurogenic claudication; M46.00 Spinal enthesopathy, site unspecified; M43.10 Spondylolisthesis, site unspecified; M54.9 Dorsalgia, unspecified; F17.210 Nicotine dependence, cigarettes, uncomplicated | CPT/HCPCS: 99204 ==

== ENCOUNTER → 2020-03-31 09:11 | Outpatient (BNVA) | payer MEDICAID, SELFPAY | PROVIDERS: PCP Nurse Practitioner Family; Visit Provider Anesthesiology Pain Medicine | DX: G89.29 Other chronic pain (principal); M51.16 Intervertebral disc disorders with radiculopathy, lumbar region; M47.816 Spondylosis without myelopathy or radiculopathy, lumbar region; M51.36 Other intervertebral disc degeneration, lumbar region; M48.061 Spinal stenosis, lumbar region without neurogenic claudication; M46.00 Spinal enthesopathy, site unspecified; M43.10 Spondylolisthesis, site unspecified; M54.9 Dorsalgia, unspecified; M62.830 Muscle spasm of back; F17.210 Nicotine dependence, cigarettes, uncomplicated | CPT/HCPCS: 99213; 99214 ==

== ENCOUNTER → 2020-04-04 14:48 | Outpatient (BNVA) | payer MEDICAID, SELFPAY | PROVIDERS: PCP Nurse Practitioner Family; Visit Provider Specialist | DX: G40.822 Epileptic spasms, not intractable, without status epilepticus (principal); G31.84 Mild cognitive impairment of uncertain or unknown etiology; K74.60 Unspecified cirrhosis of liver; R18.8 Other ascites; K76.0 Fatty (change of) liver, not elsewhere classified; F11.11 Opioid abuse, in remission; F17.210 Nicotine dependence, cigarettes, uncomplicated | CPT/HCPCS: 99205 ==

== ENCOUNTER 2020-04-12 10:03 | Outpatient (CLI) | payer MEDICAID, SELFPAY ==
--- NOTE | 2020-04-12 15:15 | MR_ITS ---
WS: [id number] MRI LUMBAR SPINE NONCONTRAST TECHNIQUE: Sagittal T1, T2 and STIR imaging. Axial T1 and T2 imaging. CLINICAL INFORMATION: M54.16 - Radiculopathy, lumbar region COMPARISON: MRI 5 FINDINGS: Mild lumbar curve. No acute compression. No high-grade central canal stenosis. Slight anterolisthesis L5 on S1. L1-L2: Mild facet arthropathy. Spinal canal and foramen are patent. L2-L3: No significant disc bulging. Mild facet arthropathy. Spinal canal and foramen are patent. L3-L4: Mild annular bulging. Slight effacement of ventral thecal sac. Narrowing of the right subartic ular recess. Small bilateral foraminal protrusions with mild bilateral foraminal narrowing. Contact o f the exiting right greater than left L3 nerve roots. Moderate facet arthropathy. L4-L5: Mild annular bulging with endplate ridging. Mild right and no significant left foraminal narro wing. Slight effacement of ventral thecal sac. Moderate facet arthropathy. L5-S1: Mild disc bulging and osteophytic ridging. Slight effacement of ventral thecal sac. Tiny centr al disc protrusion slightly encroaches on the left S1 nerve root. Mild to moderate facet arthropathy. Foramen are patent. Visualized pelvic bony structures: Normal. Paravertebral soft tissues: Normal. MR/MR lumbar spine wo con* [id number] IMPRESSION: 1. Mild lumbar curve. No acute compression. Grade 1 anterolisthesis L5 on S1. Bilateral pars defects L5-S1. 2. Small bilateral foraminal protrusions L3-4 right greater than left with sma ll annular fissures. Contact of the exiting right greater than left L3 nerve ro ots. 3. Tiny right foraminal protrusion L4-5 with mild right foraminal narrowing an d slight contact of the exiting right L4 nerve root. 4. Mild narrowing of the subarticular recess bilaterally L4-5. 5. Shallow left pericentral protrusion L5-S1 slightly encroaches on the left S 1 nerve root without significant impingement. 6. Mild to moderate facet arthropathy L3-L4 and L4-L5.
== END 2020-04-12 10:04 | disposition home or self-care (01) ==
LOC: RADSHAW 10:08
PROVIDERS: PCP Nurse Practitioner Family; Visit Provider Anesthesiology Pain Medicine
DX: M54.16 Radiculopathy, lumbar region (principal); M47.816 Spondylosis without myelopathy or radiculopathy, lumbar region; M51.27 Other intervertebral disc displacement, lumbosacral region; M51.26 Other intervertebral disc displacement, lumbar region
CPT/HCPCS: 72148

== ENCOUNTER 2020-04-18 06:00 | Outpatient (RCR) | payer MEDICAID, SELFPAY | END 2020-05-11 23:59 | disposition home or self-care (01) | LOC: SPT 06:00 | PROVIDERS: PCP Nurse Practitioner Family; Referring Provider Anesthesiology Pain Medicine; Visit Provider Anesthesiology Pain Medicine | DX: G89.29 Other chronic pain (principal); M54.5 Low back pain | CPT/HCPCS: 95816; 97110; 97161 ==

== ENCOUNTER → 2020-05-01 09:24 | Outpatient (BNVA) | payer MEDICAID, SELFPAY | PROVIDERS: PCP Nurse Practitioner Family; Visit Provider Anesthesiology Pain Medicine | DX: M54.9 Dorsalgia, unspecified (principal); M51.36 Other intervertebral disc degeneration, lumbar region; M47.816 Spondylosis without myelopathy or radiculopathy, lumbar region; M46.00 Spinal enthesopathy, site unspecified; M51.16 Intervertebral disc disorders with radiculopathy, lumbar region; M48.061 Spinal stenosis, lumbar region without neurogenic claudication; M43.10 Spondylolisthesis, site unspecified; M62.830 Muscle spasm of back; Z87.891 Personal history of nicotine dependence | CPT/HCPCS: 99213 ==

== ENCOUNTER 2020-05-11 08:25 | Outpatient (CLI) | payer MEDICAID, SELFPAY ==
[2020-05-11 08:54] LABS: Basophils # 0.1 10^3/uL (0.0-0.1); Basophils % 1.2 %; Eosinophils # 0.3 10^3/uL (0.0-0.8); Eosinophils % 5.1 %; Hemoglobin 12.9 g/dL (11.7-16.6); Lymphocytes # 1.1 10^3/uL (0.8-4.8); Lymphocytes % 20.5 %; Mean Corpuscular HGB Conc 33.9 g/dL (30.0-36.0); Mean Corpuscular Hemoglobin 31.3 pg (28.0-34.0); Mean Corpuscular Volume 92.2 fL (80-94); Mean Platelet Volume 9.9 fL (7.4-10.4); Monocytes # 0.5 10^3/uL (0.2-0.9); Monocytes % 10.4 %; Neutrophils # 3.19 10^3/uL (1.8-7.7); Neutrophils % 62.2 %; Nucleated Red Blood Cells % 0 %; Platelet Count 112 10^3/cmm (130-400); Red Blood Count 4.12 10^6/uL (4.1-5.3); Red Cell Distribution Width 12.8 % (12.1-15.1); White Blood Count 5.1 10^3/uL (4.0-10.0)
[2020-05-11 09:10] LABS: Anion Gap 12.5 (5-19); Blood Urea Nitrogen 13 mg/dL (6-20); Calcium 9.7 mg/dL (8.5-10.5); Carbon Dioxide 30 mmol/L (22-29); Chloride 99 mmol/L (98-107); Glucose 132 mg/dL (65-115); Osmolality Calculated 286 mOsm/kg (285-295); Potassium 4.5 mmol/L (3.5-5.1); Sodium 137 mmol/L (136-145)
[2020-05-11 09:11] LABS: INR 1.14 (0.8-1.2)
== END 2020-05-11 08:26 | disposition home or self-care (01) ==
LOC: LAB 08:28
PROVIDERS: PCP Nurse Practitioner Family; Visit Provider Internal Medicine Cardiovascular Disease
DX: R06.02 Shortness of breath (principal); Z79.01 Long term (current) use of anticoagulants; R07.9 Chest pain, unspecified
CPT/HCPCS: 36415; 80048; 85025; 85610; 86850; 86900; 87635

== ENCOUNTER 2020-05-12 06:00 | Outpatient (RCR) | payer MEDICAID, SELFPAY | END 2020-06-11 23:59 | disposition home or self-care (01) | LOC: SPT 06:00 | PROVIDERS: PCP Nurse Practitioner Family; Referring Provider Anesthesiology Pain Medicine; Visit Provider Anesthesiology Pain Medicine | DX: G40.822 Epileptic spasms, not intractable, without status epilepticus (principal); M54.5 Low back pain; G89.29 Other chronic pain | CPT/HCPCS: 97110 ==

== ENCOUNTER → 2020-05-24 12:42 | Outpatient (BNVA) | payer MEDICAID, SELFPAY | PROVIDERS: PCP Nurse Practitioner Family; Visit Provider Specialist | DX: G40.822 Epileptic spasms, not intractable, without status epilepticus (principal); Z87.891 Personal history of nicotine dependence | CPT/HCPCS: 99213; 99214 ==

== ENCOUNTER 2020-06-12 06:00 | Outpatient (RCR) | payer MEDICAID, SELFPAY | END 2020-07-09 23:59 | disposition home or self-care (01) | LOC: SPT 06:00 | PROVIDERS: PCP Nurse Practitioner Family; Referring Provider Anesthesiology Pain Medicine; Visit Provider Anesthesiology Pain Medicine | DX: G40.822 Epileptic spasms, not intractable, without status epilepticus (principal); F17.210 Nicotine dependence, cigarettes, uncomplicated; M54.5 Low back pain; G89.29 Other chronic pain | CPT/HCPCS: 97110 ==

== ENCOUNTER 2020-06-23 09:31 | Outpatient (CLI) | payer MEDICAID, SELFPAY ==
[2020-06-23 10:05] LABS: Basophils # 0.1 10^3/uL (0.0-0.1); Eosinophils # 0.4 10^3/uL (0.0-0.8); Eosinophils % 5.2 %; Hematocrit 39.3 % (42.0-52.0); Hemoglobin 13.6 g/dL (11.7-16.6); Lymphocytes # 1.1 10^3/uL (0.8-4.8); Lymphocytes % 16.5 %; Mean Corpuscular HGB Conc 34.6 g/dL (30.0-36.0); Mean Corpuscular Hemoglobin 30.9 pg (28.0-34.0); Mean Corpuscular Volume 89.3 fL (80-94); Mean Platelet Volume 9.5 fL (7.4-10.4); Monocytes # 0.5 10^3/uL (0.2-0.9); Monocytes % 7.6 %; Neutrophils # 4.66 10^3/uL (1.8-7.7); Neutrophils % 69.1 %; Nucleated Red Blood Cells % 0 %; Platelet Count 111 10^3/cmm (130-400); Red Cell Distribution Width 13.7 % (12.1-15.1); White Blood Count 6.7 10^3/uL (4.0-10.0)
[2020-06-23 10:17] LABS: INR 1.14 (0.83-1.21)
[2020-06-23 10:32] LABS: Anion Gap 12.9 (5-19); Blood Urea Nitrogen 11 mg/dL (6-20); Calcium 8.9 mg/dL (8.5-10.5); Carbon Dioxide 27 mmol/L (22-29); Chloride 102 mmol/L (98-107); Glomerular Filtration Rate 101.1 mL/min (90-130); Glucose 198 mg/dL (65-115); Osmolality Calculated 291 mOsm/kg (285-295); Potassium 3.9 mmol/L (3.5-5.1); Sodium 138 mmol/L (136-145)
== END 2020-06-23 09:32 | disposition home or self-care (01) ==
PROVIDERS: PCP Nurse Practitioner Family; Visit Provider Internal Medicine Cardiovascular Disease
DX: Z01.818 Encounter for other preprocedural examination (principal)
CPT/HCPCS: 36415; 80048; 85025; 85610; 87635

== ENCOUNTER 2020-07-07 15:21 | Outpatient (CLI) | payer MEDICAID, SELFPAY ==
[2020-07-07 15:57] LABS: Basophils # 0.1 10^3/uL (0.0-0.1); Basophils % 1.4 %; Eosinophils # 0.3 10^3/uL (0.0-0.8); Eosinophils % 3.6 %; Hematocrit 45.6 % (42.0-52.0); Hemoglobin 15.1 g/dL (11.7-16.6); Lymphocytes # 1.5 10^3/uL (0.8-4.8); Lymphocytes % 21.9 %; Mean Corpuscular HGB Conc 33.1 g/dL (30.0-36.0); Mean Corpuscular Hemoglobin 30.4 pg (28.0-34.0); Mean Corpuscular Volume 91.9 fL (80-94); Monocytes # 0.5 10^3/uL (0.2-0.9); Monocytes % 7.4 %; Neutrophils # 4.51 10^3/uL (1.8-7.7); Neutrophils % 65.4 %; Nucleated Red Blood Cells % 0 %; Platelet Count 145 10^3/cmm (130-400); Red Blood Count 4.96 10^6/uL (4.1-5.3); Red Cell Distribution Width 13.3 % (12.1-15.1); White Blood Count 6.9 10^3/uL (4.0-10.0)
[2020-07-07 16:10] LABS: INR 1.14 (0.8-1.2)
[2020-07-07 16:16] LABS: Anion Gap 10.2 (5-19); Blood Urea Nitrogen 10 mg/dL (6-20); Calcium 9.2 mg/dL (8.5-10.5); Carbon Dioxide 30 mmol/L (22-29); Chloride 101 mmol/L (98-107); Glomerular Filtration Rate 88.3 mL/min (90-130); Glucose 170 mg/dL (65-115); Osmolality Calculated 287 mOsm/kg (285-295); Potassium 4.2 mmol/L (3.5-5.1); Sodium 137 mmol/L (136-145)
== END 2020-07-07 15:22 | disposition home or self-care (01) ==
PROVIDERS: PCP Nurse Practitioner Family; Visit Provider Internal Medicine Cardiovascular Disease
DX: Z01.812 Encounter for preprocedural laboratory examination (principal); E78.5 Hyperlipidemia, unspecified; R07.89 Other chest pain
CPT/HCPCS: 36415; 80048; 85025; 85610; 87635

== ENCOUNTER 2020-07-10 05:52 | Day surgery (SDC) | payer MEDICAID, SELFPAY ==
[2020-07-10] VITALS (47 sets, daily range): BP systolic 108–157; BP diastolic 60–113; PULSE 63–90; RESP 8–24; TEMP 36.7–37.3; O2SAT 93–100; BMI 31.5
--- NOTE | 2020-07-10 06:29 | XACV_ITS ---
Wt: 100 kg BSA: 2.25 m2 Gender: Male : 1965 Any Known Allergies: Cephalosporines Exam Priority: Routine Procedure(s): Procedure Description: Diagnostic procedure Procedure Description: PCI procedure Procedure Description: Left Heart Catheterization Procedure Description: Left ventriculography Procedure Description: Drug Eluting Coronary Stent Diagnostic Cath Status: Elective Diagnostic Findings * No significant disease noted in the Left Main, LAD, Circumflex, or RCA coronary arteries. * Mid Left Anterior Descending Coronary Artery: has lesion. * Mid Left Anterior Descending Coronary Artery: has lesion. * Coronary angiography shows right dominance. * The left main is a medium to large caliber vessel with no significant external rotation. * The left anterior descending artery is a medium caliber vessel which appears to wrap around the LV apex minimally. The proximal LAD was found to have minimal intimal irregularities. The mid LAD was found to have diffuse around 50 to 60% lesion. The septal perforators coming out of this region were found to have a ostial around 60 to 70% narrowing. The first diagonal branche is a medium to large caliber vessel which has proximal around 40% diffuse tubular narrowing. One of the bifurcation branches was found to have around 50 to 60% narrowing proximally. No other significant stenotic lesions were noted. * The left circumflex artery is a medium caliber codominant vessel which was found to have mild diffuse intimal irregularities. The first obtuse marginal is relatively small caliber vessel with a high takeoff. Mild to moderate diffuse disease was noted in this vessel. The PLV branche is given off by the circumflex artery. * The right coronary artery is a medium caliber vessel which was found to have 30 to 40% diffuse narrowing proximally. The distal right coronary artery was found to have minimal intimal irregularities. The PDA where a branch was found to be subtotally occluded at the mid segment. Grade 2 left to right collaterals were noted during the left coronary injection. The PLV branch of the right coronary artery appears to be rudimentary. The left circumflex artery appears to give of the PLV branch. PCI Status: Elective PCI Indication: New Onset Angina <= 2 months Interventional Findings * FFR: After equalizing the distal and proximal pressure of FFR wire proximal to the lesion, mid L * AD * lesion was crossed with FFR wire. IV adenosine at rate of 140 mcg/min was started. Patient did not compliant of any symptoms, at then end of two minutes FFR was recorded as 0.76, which is significant . * Mid Left Anterior Descending Coronary Artery: 80% stenosis treated with MDT R VICTORIANO 3.0X22 ZACH. 0% residual stenosis, CARLOS: 3 flow. Conclusions 1. No significant disease noted in the Left Main, LAD, Circumflex, or RCA coronary arteries. 2. Normal left ventricular systolic function. Ejection fraction of 60%. 3. This is a 55-year-old white male with a multiple risk factors for coronary artery disease including a strong family history for premature atherosclerotic heart disease, presented with complaints of chest pain. He had a myocardial perfusion imaging in 2019 which was unremarkable. However in view of the patient's the increasing episodes of chest pain and multiple risk factors, in order to further evaluate the coronary status, a cardiac catheterization was recommended. Patient underwent left heart catheterization with left and right coronary angiogram and LV angiogram today. The findings are as follows. 4. The left anterior descending artery was found to have 50 to 60% diffuse irregular narrowing in the mid segment. Ostium of the first and second septal perforators were found to have around 60 to 70% narrowing. The left circumflex artery was found to have mild diffuse disease. Right coronary artery was found to have a subtotal occlusion of the mid PDA branch. Normal LV ejection fraction with an LVEDP of 16 mmHg. 5. I discussed and reviewed the cardiac colorization data with Dr. Marion. To start to be appropriate to consider an FFR of the mid LAD lesion and decide on further management. Dr. Marion took over further management of this patient at this point. For further details, please refer to the report by Dr Marion. 6. Mid Left Anterior Descending Coronary Artery was treated with Drug Eluting Stent. Recommendations * 1-Return to inpatient for close monitoring and routine cath care 2-Risk factor modification for secondary prevention 3-Statin and aspirin 81 mg life--long, if tolerated 4-Patient was pre-loaded with 600 mg of Plavix, continue Plavix 75mg p.o. daily for at least one year. We will assess at the end of one year again to continue if further or not 5-Continue optimal medical management 6-Follow up with Dr. Flores in four weeks and your primary care in 10 days. Diagnostic RX Recommendation: PCI w/o planned CABG Ventriculography Ejection Fraction: 65.0 % LV EDP: 16 mmHg Left Ventriculography Findings: * The LV gram was performed in the GILLIS projection. The LV cavity appeared to be of normal size. There was no filling defect or any wall motion abnormalities. No significant mitral valve prolapse or mitral regurgitation. The overall ejection fraction was 65%. The LVEDP was 16 mmHg. Pressures Phase:Rest AO : 120 / 34 ( 48 ) @ 1:35:00 AM 130 / 85 ( 105 ) @ 1:41:00 AM 132 / 84 ( 105 ) @ 1:41:00 AM 105 / 66 ( 84 ) @ 2:34:00 AM LV : 137 / 24 / @ 1:40:00 AM 137 / 24 / @ 1:40:00 AM 135 / 24 / @ 1:41:00 AM 136 / 24 / @ 1:41:00 AM 138 / 18 / @ 1:41:00 AM Valves Phase:DefaultPhase AV : 9.0 @ 8:44:43 AM 9.0 @ 8:44:43 AM AV Mean Gradient: 13.0 @ 8:44:43 AM Clinical Evaluation EBL: 5mL-10mL Procedural Details Procedure Consent Obtained. Admit Source: In Patient. Pre-Procedure Time Out. Identified patient by full name and date of as verbalized by the patient/guarantor. Does the consent match the physician's order: Yes. Accurate & Complete Informed Consent: Yes. Inpatient/Outpatient History & Physical on Chart: Yes. If H&P is completed, is and addenduem needed: N/A; If yes, is the addendum complete: N/A. Visualize and Verify Site with Patient/Guarantor: N/A. Relevant Radiology Images available: N/A. Pre-op teaching completed and patient verbalized understanding. The risks, benefits, and alternatives of sedation and/or procedure were discussed by physician. The patient agrees to continue. Procedure started. Correct patient, site and procedure confirmed by cath team. PERRLA. Strong, equal hand blood bank technician bilaterally. Lungs clear x 5 lobes. IV Site on Arrival: 20 gauge in the left anticubital. Pre Procedural Pulses: bilateral dorsalis pedis was Doppled. Pre Procedural Pulses: bilateral posterior tibial was 1+. Pre Procedural Pulses: bilateral radial was 1+. Oxygen started at 2liters/min via nasal canula. bilateral groins was prepped with chloroprep then draped in the usual sterile fashion. right radial was prepped with chloroprep then draped in the usual sterile fashion. Physician notified. Baseline sample Acquired. HR: 64 BPM. Physician arrived. Vital chart was stopped. Lidocaine 1% infiltrated to the right radial. Arterial access obtained. sheath flushed. A 5 croatian Waldo catheter in over wire. Multiple views taken of left coronary artery. Procedure started. Catheter redirected to the RCA. Multiple views taken of right coronary artery. Dr. Marion called to view cine. Catheter out. A 5 croatian Angled Pig catheter in over wire. EDP Sample taken: LV 137/24,38; HR: 71 BPM; SpO2: 95%. LV gram performed in GILLIS @ 10 mL/second for a total of 30 mL. EDP Sample taken: LV 135/24,37; HR: 72 BPM; SpO2: 96%. Pullback taken: LV 138/18,35; AO 130/85(105); Mean: 13mmHg, Peak to Peak: 9mmHg, SEP: 6sec/min; HR: 72 BPM; SpO2: 95%. Catheter out. sheath flushed. Dr. Marion scrubbed in. 6 croatian XB 3.5 guide catheter was inserted over the wire. FFR guidewire was advanced through the guide catheter to lesion in the mid LAD. An FFR value of 0.76 was obtained for a lesion located at Mid LAD. Inflation Number : 1 Maria Isabel Nelson VICTORIANO 3.0X22 ZACH -Lot Number# [id number] was prepped and advanced across the Mid LAD1. The stent was deployed at 18 CATA for 0:28 seconds. Results checked. Stent balloon out over wire. Wire out. Results checked. ACT drawn. Results seconds. Therapeutic limits - pre-heparin administration 90-150 seconds and monitoring heparin during a vascular procedure >250 seconds. Guide catheter out. Physician scrubbed out. TR band placed. Hemostasis obtained. Post Procedure: Pulses reassessed and unchanged. PERRLA. Strong, equal hand blood bank technician bilaterally. No VTE prophylaxis required. ACT drawn. Results 252 seconds. Therapeutic limits - pre-heparin administration 90-150 seconds and monitoring heparin during a vascular procedure >250 seconds. Medication's Wasted: Lidocaine 1% = 16 mL. Medication's Wasted: Nitro = 49.8 mg. Medication's Wasted: Heparin = 1000 units. Total IV fluids: 150 mL. Contrast type used: Omnipaque 300 mgI/mL, 500 mL bottle. Contrast Material : Omnipaque 230 ml. Complications: none. Estimated blood loss: 5mL-10mL. A TR Band was successful obtaining hemostatsis at the Right Radial artery insertion site. [facility] Clinical Fraility Score: 3: Managing Well. Slp Indications: New Onset Angina. Chest Pain Symptom Assessment: Typical Angina Symptoms. Cardiovascular Instability: No,. PCI Indication: Significantly abnormal mid LAD FFR. Post-op diagnosis: stent to mid LAD. Procedure completed. Patient transferred by wheelchair to 1st floor. Vital chart was stopped. Access Site Site: Right Radial artery Sheath Size: 6 Fr Hemostasis Method: TR Band Hemostasis Success: Successful Procedure Medications Start: 7:30 AM Stop: 7:30 AM Medication: Versed Amount: 1 mg Route: I.V. Start: 7:30 AM Stop: 7:30 AM Medication: Verapamil Amount: 5 mg Route: I.A. Start: 7:31 AM Stop: 7:31 AM Medication: Fentanyl Amount: 50 mcg Route: I.V. Start: 7:38 AM Stop: 7:38 AM Medication: Versed Amount: 1 mg Route: I.V. Start: 7:48 AM Stop: 7:48 AM Medication: Heparin Amount: 5000 units Route: I.V. Start: 8:17 AM Stop: 8:17 AM Medication: Versed Amount: 1 mg Route: I.V. Start: 8:21 AM Stop: 8:21 AM Medication: Heparin Amount: 3000 units Route: I.V. Start: 8:25 AM Stop: 8:25 AM Medication: Versed Amount: 1 mg Route: I.V. Start: 8:26 AM Stop: 8:26 AM Medication: Adenosine (Adenocard) Amount: 840 mcg Route: I.V. bolus Start: 8:30 AM Stop: 8:30 AM Medication: Heparin Amount: 2000 units Route: I.V. Start: 8:31 AM Stop: 8:31 AM Medication: Versed Amount: 1 mg Route: I.V. Start: 8:35 AM Stop: 8:35 AM Medication: Aggrastat 12.5 mg/250 mL Amount: 50 ml Route: I.V. bolus Start: 8:35 AM Stop: 8:35 AM Medication: Aggrastat 12.5 mg/250 mL Amount: 18 ml/hr Route: I.V. lex Frank, the attending physician, have reviewed and verified all procedure medications. Yes, all medications given per verbal order History/Risk Factors Hypertension: Yes Dyslipidemia: Yes Tobacco Use: Current/Recent(w/in 1 year) Report Signatures Interventional Workflow Finalized by Christi Marion MD on 07/21/2020 08:03 PM Diagnostic Workflow Finalized by Dr Sujata Flores MD [facility] on 07/10/2020 10:17 AM
[2020-07-10] MEDS: diphenhydrAMINE 50 mg Capsule PO (06:43)
--- NOTE | 2020-07-10 07:05 | W.PM.OPSUD ---
Surgery/Procedure H&P Update DATE OF PROCEDURE: July 10, 2020 DATE H&P PERFORMED: 07/10/20 H&P UPDATE INFORMATION: I have reviewed H&P completed within last 30 days, I have examined patient prior to procedure and No changes to prior documentation PREOP DIAGNOSIS: Worsening chest pain,Multiple risk factors for coronary artery disease PLANNED PROCEDURE: Operation Date: 07/10/20 07:00 Proposed Procedures p Cardiac Catheterization 45076 R94.39(Left) - Sujata Flores MD PATIENT REASSESSED PRIOR TO SEDATION, WITH NO CHANGE NOTED: Yes PHYSICAL EXAM: alert, oriented x 3, clear to auscultation bilaterally and regular rate & rhythm AIRWAY EVAL/ANESTHESIA PLAN: normal airway, see other exam findings, ASA II, Monitored Anesthesia, Local Anesthesia, Risks, benefits & alternatives of sedation and/or procedure discussed and Patient agrees to continue as planned
--- NOTE | 2020-07-10 07:06 | P.HP_ITS ---
Providers/Chief Complaint Primary Care Provider: BUD Head Chief Complaint: abnormal stess test History of Present Illness Alonso Golden is a 55 year old male with a history of hypertension, type 2 diabetes, dyslipidemia, COPD, smoking abuse and a strong family history for premature atherosclerotic heart disease, is presenting with complaints of chest pain. Had a myocardial perfusion imaging in November 2019. The perfusion scan was unremarkable. He kept on having chest pain. The symptoms are getting more frequent lately. In view of his increasing episodes of chest pain, and multiple risk factors for coronary artery disease, in order to further evaluate his coronary status, a cardiac catheterization was recommended. Patient had a cardiac catheterization many years ago and was told to be okay. The results are not available. Review of Systems Narrative: CONSTITUTIONAL: No fever or chills. EYES: No blurring of vision or other visual disturbances lately. ENT: No hoarseness of voice, auditory disturbances or sore throat. CARDIOVASCULAR: As mentioned above. RESPIRATORY: No significant cough. GASTROINTESTINAL: No hematemesis or melena. GENITOURINARY: No dysuria or hematuria. INTEGUMENTARY: No skin rashes or history of skin cancer. NEURO: No transient ischemic attacks or amaurosis. PSYCHIATRIC: No history of psychosis or major depression. HEMATOLOGIC: No bleeding disorders or significant anemia. ENDOCRINE: No history of polyuria or polydipsia. MUSCULOSKELETAL: No recent joint pain or swelling. ALLERGY/IMMUNOLOGY: As mentioned above. Medications/Allergies Home Medications Medication Instructions Recorded Confirmed Last Taken Type levothyroxine 200 mcg PO DAILY 05/19/19 07/07/20 07/10/20 05:00 History aspirin 81 mg chewable tablet 81 mg PO DAILY 30 Days #30 tab 10/05/19 07/07/20 07/10/20 05:00 Rx metoprolol tartrate 25 mg tablet 25 mg PO BID 30 Days #60 tab 10/05/19 07/07/20 07/10/20 05:00 Rx nitroglycerin 0.4 mg sublingual 0.4 mg SUBLINGUAL Q5M PRN 30 Days 10/05/19 07/07/20 07/10/20 05:00 Rx tablet #30 tab rosuvastatin 5 mg tablet 5 mg PO DAILY 30 Days #30 tab 10/05/19 07/07/20 07/10/20 05:00 Rx lisinopril 40 mg PO DAILY 10/18/19 07/07/20 07/10/20 05:00 History glipizide 5 mg tablet 5 mg PO DAILY 03/08/20 07/10/20 07/09/20 07:00 History levothyroxine 50 mcg capsule 50 mcg PO DAILY 03/08/20 07/07/20 07/10/20 05:00 History metformin 1,000 mg tablet,extended 1,000 mg PO BID 03/08/20 07/07/20 Unknown History release 24hr spironolactone 50 mg tablet 50 mg PO DAILY 03/08/20 07/07/20 07/10/20 05:00 History venlafaxine 75 mg capsule,extended 75 mg PO DAILY 03/08/20 07/07/20 07/10/20 05:00 History release 24 hr levetiracetam 500 mg tablet 500 mg PO BID #60 tab 04/04/20 07/07/20 07/10/20 05:00 Rx baclofen 10 mg tablet 10 mg PO BID PRN #60 tab 05/01/20 07/07/20 07/10/20 05:00 Rx lorazepam 2 mg/mL oral concentrate 2 mg SUBLINGUAL DAILY PRN #30 ml 05/24/20 07/07/20 07/10/20 05:00 Rx ibuprofen 800 mg tablet 800 mg PO TID PRN #90 tab 06/30/20 07/07/20 07/10/20 05:00 Rx Allergies Allergy/AdvReac Type Severity Reaction Status Date / Time Cephalosporins Allergy hives Verified 05/24/20 13:18 PFSH Acute PFSH: Medical History Atypical chest pain Benign essential hypertension with target blood pressure below 140/90 Chronic low back pain Dyslipidemia Epilepsy Glucose intolerance Hypothyroidism Obesity Smoker Type 2 diabetes mellitus Surgical History H/O umbilical hernia repair History of appendectomy Family History Father Family history of premature coronary artery disease Had a myocardial infarction in his 40s. Diabetes Brother Family history of premature coronary artery disease Clotting disorder CAD (coronary artery disease) Had ME in the 50s Other Stroke Social History Smoking and tobacco status: former smoker Quit status (tobacco): has quit using tobacco Year quit tobacco: 04/22/2020- USING [employer] Alcohol intake: current Alcohol intake frequency: holidays/special occasions only Household members: spouse Housing: House History of recent travel: No Vitals/I&O/Wt Last Vital Signs Temp 98.3 F 07/10/20 06:30 Pulse 63 07/10/20 06:30 Resp 17 07/10/20 06:30 BP 146/101 07/10/20 06:30 Pulse Ox 99 07/10/20 06:30 Weight last 48 hrs Weight 220 lb Physical Exam Narrative: EXAM NARRATIVE: GENERAL: The patient is alert and oriented times three. Not in any acute distress. HEENT: No significant pallor, icterus or lymphadenopathy. The pupils are reactant to light. Oral cavity: There are no mucous membrane lesions. Funduscopic examination: The fundus is not visualized NECK: Trachea appears to be central. No masses noted. No JVD or thyromegaly appreciated. No carotid bruit. RESPIRATORY: Chest is symmetrical. No intercostals muscle retraction or any accessory muscle activation. There is no chest wall tenderness. Breath sounds are heard bilaterally. No rales or rhonchi heard. No evidence of any consolidation. BREASTS: Deferred. HEART: The PMI is in the 5th left intercostals space just inside the midclavicular line. No palpable precordial events. S1 and S2 are normal. No S3 or S4 heard. No pericardial rub or any click heard. ABDOMEN: No vessel pulsations or distention. No tenderness. No organomegaly appreciated. No abdominal bruit. Bowel sounds are normally heard. : Deferred. RECTAL: Deferred. LYMPHATIC: No lymphadenopathy noted in the neck or groin. EXTREMITIES: No edema or cyanosis. No clubbing. The pulses are symmetrical bilaterally. The radial, femoral, dorsalis pedis and the posterior tibial pulses are palpated and found to be in good volume and amplitude. MUSCULOSKELETAL: Gait is normal. There is no joint deformity or swelling noted. No joint tenderness or any effusion. The shoulder and hip joints appear to have normal range of motion. SKIN: Multiple tattoo markings in the upper extremities NEUROPSYCHIATRIC: The patient is alert and oriented x3. Patient has a poor affect. No focal motor deficits. Data : 07/11/20 04:16 07/11/20 04:16 A&P Assessment and plan (1) Atypical chest pain: In view of the patient's increasing episodes of chest pains, for further evaluation of his coronary status, a cardiac catheterization was recommended. The risk of bleeding, hematoma, vascular injury, myocardial infarction, CVA, renal failure and other concomitant complications were explained in detail. Patient understood this well and consented to proceed. Status: Acute (2) Type 2 diabetes mellitus: Patient is on Metformin and was on hold since last night. He is on glipizide which will be continued. 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 We will optimize antihypertensive medications. Status: Acute (4) Dyslipidemia: May continue on the current medications. Status: Acute (5) Smoker: Status: Acute Additional A&P Information Patient also is known to have partial complex seizures, mild cognitive imp airment, etc. External cardiac catheterization data and patient's clinical progress, further management decisions will be made. Attestations Medical Necessity Statement*: Patient may require an overnight stay after the cardiac catheterization, if he requires PCI Coding Level of Care Code Acute Doll Maker for [facility] Fwd Diagnoses Atypical chest pain R07.89 Type 2 diabetes mellitus E11.65 Diabetes mellitus complication status: with hyperglycemia Diabetes mellitus penitentiary insulin use: without penitentiary use Benign essential hypertension with target blood pressure below 140/90 I10 Dyslipidemia E78.5 Smoker F17.200
--- NOTE | 2020-07-10 09:25 | PC.CHAP ---
Pastoral Care Encounter/Spiritual Assessment Type of Contact [] Declined plating department helper visit [] Patient/Family/Request visit [] Outpatient visit [] Follow-up visit [] Physician referral [] Code/Alert [x] Routine visit [] Staff referral [] Actively dying [] Patient sleeping [] Family support [] [] Out of room [] Palliative care [] [x] Receiving care in room [] Pre-surgical visit [] Trauma [] Long length of stay [] ICU visit [] Other: Relational/Emotional Strength [] Patient feels connected with others/family/visitors/staff [] Distress [] Loneliness/isolation [] Abandonment Spirituality of Patient [] Person of Lita [] Attends Jain of their Lita [] Believes in Prayer [] Reads Bible or Pentecostal materials [] There are Spiritual issues to be addressed Manager Heart Interventions [x] Prayer [] Active listening [] Non-anxious presence [] Spiritual/emotional support [] Crisis/trauma care [] Spiritual counseling [] Bereavement support [] Provided bereavement packet [] Provided Bible/devotional materials [] Provided toy/stuffed animal, coloring book to patient or family member [] Provided Communion [] Anointing/[place] [] Salvation [x] Completed spiritual assessment [] Other: Impact on Illness or Injury [] Angry [] Fearful [] Anxious [] Often cries [] Exhaustion [] Unable to work [] Unable to attend sabianism [] Unable to walk/stand [] Unable to read [] Unable to drive [] Unable to eat/drink [] Unable to sleep [] Unable to be with family [] Patient intubated [] Other: Summary Time spent with patient
[2020-07-10] MEDS: HYDROcodone-acetaminophen 5-325 mg Tablet 1 TAB PO ×2 (11:33→22:45)
--- NOTE | 2020-07-10 11:35 | PC.NURSE ---
AGGRASTAT AGGRASTAT GTT DISCONTINUED AND TURNED OFF AT 1045 THIS MORNING.
[2020-07-10] MEDS: metoprolol tartrate 25 mg Tablet PO (17:23)
[2020-07-10] MEDS: levETIRAcetam 500 mg Tablet PO (17:24)
[2020-07-10] MEDS: nitroglycerin 0.4 mg sublingual Tablet SUBLINGUAL ×3 (22:26→22:37)
--- NOTE | 2020-07-10 22:52 | ECG_ITS ---
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: : 1965 Requested By: Christi Marion Order Number: [id number] Reading MD: CHRISTI MARION Measurements Intervals [place] Rate: 72 P: 29 DE: 159 QRS: -21 QRSD: 89 T: 61 QT: 394 QTc: 433 Interpretive Statements SINUS RHYTHM BORDERLINE LEFT AXIS DEVIATION [QRS AXIS < -20] MINIMAL VOLTAGE CRITERIA FOR LVH, CONSIDER NORMAL VARIANT [MEETS CRITERIA IN ONE OF: R(aVL), S(V1), R(V5), R(V5/V6)+S(V1)] NONSPECIFIC T-WAVE ABNORMALITY Compared to ECG 10/10/2019 18:43:22 Possible ischemia no longer present T-wave abnormality still present Electronically Signed On 07-11-2020 19:59:39 DATASTAGE ARCHITECT by CHRISTI MARION [id number]
[2020-07-10] MEDS: ALPRAZolam 0.25 mg Tablet PO (23:30)
[2020-07-11 00:14] VITALS: BP 106/72; PULSE 71; RESP 17; TEMP 36.6; O2SAT 98
--- NOTE | 2020-07-11 01:05 | PC.NURSE ---
late entry, pt c/o chest pain 12/19, nitro given X3 with pt stating some improvement, but stating it still hurts . Notified Dr Marion, EKG obtained, one time dose xanax ordered for anxiety, no further orders at this time
[2020-07-11 01:11] VITALS: PULSE 75; O2SAT 98
[2020-07-11 04:00] VITALS: BP 108/72; PULSE 67; RESP 15; TEMP 36.4; O2SAT 96
[2020-07-11 05:13] LABS: Basophils # 0.1 10^3/uL (0.0-0.1); Basophils % 0.8 %; Eosinophils # 0.2 10^3/uL (0.0-0.8); Eosinophils % 3.3 %; Hematocrit 39.8 % (42.0-52.0); Hemoglobin 13.1 g/dL (11.7-16.6); Lymphocytes # 1.5 10^3/uL (0.8-4.8); Lymphocytes % 21.9 %; Mean Corpuscular HGB Conc 32.9 g/dL (30.0-36.0); Mean Corpuscular Hemoglobin 30.5 pg (28.0-34.0); Mean Corpuscular Volume 92.8 fL (80-94); Mean Platelet Volume 10.3 fL (7.4-10.4); Monocytes # 0.6 10^3/uL (0.2-0.9); Monocytes % 8.8 %; Neutrophils # 4.27 10^3/uL (1.8-7.7); Neutrophils % 64.6 %; Nucleated Red Blood Cells % 0 %; Platelet Count 121 10^3/cmm (130-400); Red Blood Count 4.29 10^6/uL (4.1-5.3); White Blood Count 6.6 10^3/uL (4.0-10.0)
[2020-07-11 05:24] VITALS: PULSE 60
[2020-07-11 05:41] LABS: Anion Gap 13.2 (5-19); Blood Urea Nitrogen 14 mg/dL (6-20); Calcium 9.2 mg/dL (8.5-10.5); Carbon Dioxide 27 mmol/L (22-29); Chloride 100 mmol/L (98-107); Glomerular Filtration Rate 88.3 mL/min (90-130); Glucose 179 mg/dL (65-115); Osmolality Calculated 287 mOsm/kg (285-295); Potassium 4.2 mmol/L (3.5-5.1); Sodium 136 mmol/L (136-145)
[2020-07-11 06:59] VITALS: BP 130/79; PULSE 60; RESP 12; TEMP 36.5; O2SAT 98
[2020-07-11] MEDS: spironolactone 25 mg Tablet 50 MG PO (08:21)
[2020-07-11] MEDS: lisinopril 20 mg Tablet 40 MG PO (08:21)
[2020-07-11] MEDS: levothyroxine 100 mcg Tablet 200 MCG PO (08:21)
[2020-07-11] MEDS: metoprolol tartrate 25 mg Tablet PO (08:22)
[2020-07-11] MEDS: venlafaxine ER (24HR) 75 mg Capsule PO (08:22)
[2020-07-11] MEDS: levETIRAcetam 500 mg Tablet PO (08:22)
[2020-07-11] MEDS: aspirin 81 mg Chew Tablet PO (08:22)
[2020-07-11] MEDS: atorvastatin 40 mg Tablet 20 MG PO (08:22)
[2020-07-11] MEDS: levothyroxine 50 mcg Tablet PO (08:22)
--- NOTE | 2020-07-11 08:57 | PM.PN ---
Subjective Subjective: Interval history: Patient was admitted to hospital following the cardiac colorization and PCI for close monitoring. He had an episode of chest pain last night lasting for an hour or so. The EKG did not reveal any new changes. His vital signs remained stable. The chest pain was thought to be noncardiac. Medications: Reviewed: Yes Medication Review Details: Current Medications Acetaminophen (Acetaminophen 325 Mg Tablet) 650 mg PO Q6H PRN PRN Reason: MILD PAIN Hydrocodone Bitart/Acetaminophen (Hydrocodone-Acetaminophen 5-325 Mg Tablet) 1 tab PO Q4H PRN PRN Reason: MODERATE PAIN Last Admin: 07/10/20 22:45 Dose: 1 tab Documented by: Al Hydrox/Mg Hydrox/Simethicone (Gmdq-Rlv-Dmqvrpfpw-Diane 30 Ml Udc) 30 ml PO Q15M PRN PRN Reason: INDIGESTION Aspirin (Aspirin 81 Mg Chew Tablet) 81 mg PO DAILY [facility] Last Admin: 07/11/20 08:22 Dose: 81 mg Documented by: Atorvastatin Calcium (Atorvastatin 40 Mg Tablet) 20 mg PO DAILY [facility] Last Admin: 07/11/20 08:22 Dose: 20 mg Documented by: Atropine Sulfate (Atropine 1 Mg/Ml Sdv 1 Ml) 0.5 mg IVP PRN PRN PRN Reason: Symptomatic bradycardia Baclofen (Baclofen 10 Mg Tablet) 10 mg PO BID PRN PRN Reason: spasm Fentanyl (Fentanyl 50 Mcg/Ml Inj 2ml) 50 mcg IVP PRN PRN PRN Reason: Prior to sheath removal Ibuprofen (Ibuprofen 800 Mg Tablet) 800 mg PO TID PRN PRN Reason: pain Levetiracetam (Levetiracetam 500 Mg Tablet) 500 mg PO BID [facility] Last Admin: 07/11/20 08:22 Dose: 500 mg Documented by: Levothyroxine Sodium (Levothyroxine 50 Mcg Tablet) 50 mcg PO DAILY [facility] Last Admin: 07/11/20 08:22 Dose: 50 mcg Documented by: Levothyroxine Sodium (Levothyroxine 100 Mcg Tablet) 200 mcg PO DAILY [facility] Last Admin: 07/11/20 08:21 Dose: 200 mcg Documented by: Lisinopril (Lisinopril 20 Mg Tablet) 40 mg PO DAILY [facility] Last Admin: 07/11/20 08:21 Dose: 40 mg Documented by: Lorazepam (Lorazepam 2 Mg/Ml Inj 1 Ml) 2 mg SUBLINGUAL DAILY PRN PRN Reason: seizure Magnesium Hydroxide (Magnesium Hydroxide 30 Ml Udc) 30 ml PO DAILY PRN PRN Reason: CONSTIPATION Metoprolol Tartrate (Metoprolol Tartrate 25 Mg Tablet) 25 mg PO BID [facility] Last Admin: 07/11/20 08:22 Dose: 25 mg Documented by: Naloxone HCl (Naloxone 0.4 Mg/Ml Sdv) 0.1 mg IVP Q2M PRN PRN Reason: RESPIRATORY RATE < 8/MIN Nicotine (Nicotine 21 Mg Patch) 1 patch TRANSDERMA DAILY [facility] Last Admin: 07/11/20 07:19 Dose: Not Given Documented by: Nitroglycerin (Nitroglycerin 0.4 Mg Sublingual Tablet) 0.4 mg SUBLINGUAL Q5M PRN PRN Reason: chest pain Last Admin: 07/10/20 22:37 Dose: 0.4 mg Documented by: Non-Formulary Medication (Glipizide) 5 mg PO DAILY [facility] Last Admin: 07/11/20 08:23 Dose: Not Given Documented by: Spironolactone (Spironolactone 25 Mg Tablet) 50 mg PO DAILY [facility] Last Admin: 07/11/20 08:21 Dose: 50 mg Documented by: Venlafaxine HCl (Venlafaxine Er (24hr) 75 Mg Capsule) 75 mg PO DAILY [facility] Last Admin: 07/11/20 08:22 Dose: 75 mg Documented by: Vitals/I&O/Wt Last Vital Signs Temp 97.7 F 07/11/20 06:59 Pulse 60 07/11/20 06:59 Resp 12 07/11/20 06:59 BP 130/79 07/11/20 06:59 Pulse Ox 98 07/11/20 06:59 07/10/20 07/11/20 07/11/20 22:59 06:59 14:59 Intake Total 1120 / 1260 120 / 1380 600 / 600 Output Total 1425 / 2200 Balance -305 / -940 120 / -820 600 / 600 Weight last 48 hrs Weight 220 lb Physical Exam Narrative: EXAM NARRATIVE: GENERAL: The patient is alert and oriented times three. Not in any acute distress. HEENT: No significant pallor, icterus or lymphadenopathy. The pupils are reactant to light. Oral cavity: There are no mucous membrane lesions. NECK: Trachea appears to be central. No masses noted. No JVD or thyromegaly appreciated. No carotid bruit. RESPIRATORY: Chest is symmetrical. No intercostals muscle retraction or any accessory muscle activation. There is no chest wall tenderness. Breath sounds are heard bilaterally. No rales or rhonchi heard. No evidence of any consolidation. BREASTS: Deferred. HEART: The PMI is in the 5th left intercostals space just inside the midclavicular line. No palpable precordial events. S1 and S2 are normal. No S3 or S4 heard. No pericardial rub or any click heard. ABDOMEN: No vessel pulsations or distention. No tenderness. No organomegaly appreciated. No abdominal bruit. Bowel sounds are normally heard. : Deferred. RECTAL: Deferred. LYMPHATIC: No lymphadenopathy noted in the neck or groin. EXTREMITIES: The radial lateral puncture site has some ecchymosis. No hematoma. Good radial pulses. MUSCULOSKELETAL: No acute joint deformities or swelling SKIN: Multiple tattoo markings in the upper extremities NEUROPSYCHIATRIC: The patient is alert and oriented x3. Patient has a poor affect. No focal motor deficits. Data : 07/11/20 04:16 07/11/20 04:16 A&P Assessment and plan (1) Atypical chest pain: Patient had a cardiac cauterization study which revealed a hemodynamically significant stenosis in the mid LAD which was intervened. He had an episode of chest pain last night which most likely is noncardiac. Has not had recurrence of chest pain since then. EKG was unremarkable. Patient is advised to ambulate around and see how he is doing. If he continues remain low, will discharge home today. Status: Acute (2) Type 2 diabetes mellitus: Patient may hold off on the Metformin for the total of 3 days. He may restart it on 13 July. Status: Acute Qualifiers: Diabetes mellitus terminal press operator insulin use: without terminal press operator use Diabetes mellitus complication status: with hyperglycemia Qualified Code(s): E11.65 - Type 2 diabetes mellitus with hyperglycemia (3) Benign essential hypertension with target blood pressure below 140/90: Currently he is normotensive. May continue on the current medications. Status: Acute (4) Dyslipidemia: May continue on the current medications. Status: Acute (5) Smoker: Once again strongly advised him to quit smoking. Status: Acute Additional A&P Information Patient also is known to have partial complex seizures, mild cognitive impairment, etc. Since the patient is remained stable with no new symptoms, he is being discharged home today. He will be seen in the heart care clinic in 1 week by the nurse practitioner. I may see him in the office in 1 month. He will continue the current medications including the Plavix. Attestations Medical Necessity Statement*: Patient is being discharged home today. Coding Level of Care Code Acute Office Support Clerk for [facility] Fwd Diagnoses Atypical chest pain R07.89 Type 2 diabetes mellitus E11.65 Diabetes mellitus terminal press operator insulin use: without terminal press operator use Diabetes mellitus complication status: with hyperglycemia Benign essential hypertension with target blood pressure below 140/90 I10 Dyslipidemia E78.5 Smoker F17.200
[2020-07-11 09:00] VITALS: BP 130/79; PULSE 60; RESP 12; TEMP 36.5; O2SAT 98
--- NOTE | 2020-07-11 09:31 | PC.CHAP ---
Pastoral Care Encounter/Spiritual Assessment Type of Contact [] Declined food service team member visit [] Patient/Family/Request visit [] Outpatient visit [] Follow-up visit [] Physician referral [] Code/Alert [x] Routine visit [] Staff referral [] Actively dying [] Patient sleeping [] Family support [] [] Out of room [] Palliative care [] [] Receiving care in room [] Pre-surgical visit [] Trauma [] Long length of stay [] ICU visit [] Other: Relational/Emotional Strength [] Patient feels connected with others/family/visitors/staff [] Distress [] Loneliness/isolation [] Abandonment Spirituality of Patient [x] Person of Lita [] Attends Mu-Ism of their Lita [] Believes in Prayer [] Reads Bible or Cheondoism materials [] There are Spiritual issues to be addressed Manager Engagement Interventions [x] Prayer [x] Active listening [x] Non-anxious presence [x] Spiritual/emotional support [] Crisis/trauma care [] Spiritual counseling [] Bereavement support [] Provided bereavement packet [] Provided Bible/devotional materials [] Provided toy/stuffed animal, coloring book to patient or family member [] Provided Communion [] Anointing/[place] [] Salvation [x] Completed spiritual assessment [] Other: Impact on Illness or Injury [] Angry [] Fearful [] Anxious [] Often cries [] Exhaustion [] Unable to work [] Unable to attend gnosticist [] Unable to walk/stand [] Unable to read [] Unable to drive [] Unable to eat/drink [] Unable to sleep [] Unable to be with family [] Patient intubated [] Other: Summary patient-- stint surgery yesterday... going home today... feeling much better Time spent with patient 10 min
--- NOTE | 2020-07-11 09:47 | PC.NURSE ---
PATIENT EDUCATED OVER DISCHARGE INSTRUCTIONS AND OVER POST ANGIOGRAM HOME CARE INSTRUCTIONS. PATIENT IS NON COMPLIANT TO EDUCATION AND DOES NOT REFRAIN FROM PUSHING OR PULLING WITH HIS RIGHT WRIST DESPITE CONSTANT REMINDERS FOR PATIENT SAFETY. WILL CONTINUE TO ATTEMPT EDUCATION
== END 2020-07-11 10:33 | disposition home or self-care (01) ==
LOC: CCL 05:53 → CSU 07:05
PROVIDERS: Internal Medicine Cardiovascular Disease; PCP Nurse Practitioner Family; Visit Provider Internal Medicine Cardiovascular Disease
DX: R94.39 Abnormal result of other cardiovascular function study (principal); R07.89 Other chest pain; E11.65 Type 2 diabetes mellitus with hyperglycemia; I10 Essential (primary) hypertension; E78.5 Hyperlipidemia, unspecified; F17.210 Nicotine dependence, cigarettes, uncomplicated; J44.9 Chronic obstructive pulmonary disease, unspecified; Z79.82 Long term (current) use of aspirin; Z79.84 Long term (current) use of oral hypoglycemic drugs; E03.9 Hypothyroidism, unspecified; E11.9 Type 2 diabetes mellitus without complications
CPT/HCPCS: 36415; 80048; 85025; 85347; 93005; 93452; 93571; C1769; C1874; C1887; C1894; C9600; J0153; J1644; J2250; J3010; J3246; J3490; J7030; Q0163; Q9967

== ENCOUNTER → 2020-07-19 14:03 | Outpatient (BNVA) | payer MEDICAID, SELFPAY | PROVIDERS: PCP Nurse Practitioner Family; Visit Provider Nurse Practitioner Family | DX: I10 Essential (primary) hypertension (principal); I25.10 Atherosclerotic heart disease of native coronary artery without angina pectoris; I25.119 Atherosclerotic heart disease of native coronary artery with unspecified angina pectoris; Z09 Encounter for follow-up examination after completed treatment for conditions other than malignant neoplasm | CPT/HCPCS: 80048 ==

== ENCOUNTER → 2020-07-28 10:32 | Outpatient (BNVA) | payer MEDICAID, SELFPAY | PROVIDERS: PCP Nurse Practitioner Family; Visit Provider Anesthesiology Pain Medicine | DX: M51.16 Intervertebral disc disorders with radiculopathy, lumbar region (principal); M51.36 Other intervertebral disc degeneration, lumbar region; M47.816 Spondylosis without myelopathy or radiculopathy, lumbar region; M54.9 Dorsalgia, unspecified; M46.00 Spinal enthesopathy, site unspecified; M48.061 Spinal stenosis, lumbar region without neurogenic claudication; M43.10 Spondylolisthesis, site unspecified; M62.830 Muscle spasm of back | CPT/HCPCS: 99214 ==

== ENCOUNTER 2020-09-05 06:00 | Outpatient (RCR) | payer MEDICAID, SELFPAY | END 2020-09-08 23:59 | disposition home or self-care (01) | LOC: SPT 06:00 | PROVIDERS: PCP Nurse Practitioner Family; Referring Provider Anesthesiology Pain Medicine; Visit Provider Anesthesiology Pain Medicine | DX: G40.822 Epileptic spasms, not intractable, without status epilepticus (principal); F17.210 Nicotine dependence, cigarettes, uncomplicated; M54.5 Low back pain; G89.29 Other chronic pain | CPT/HCPCS: 97161 ==

== ENCOUNTER 2020-09-09 06:00 | Outpatient (RCR) | payer MEDICAID, SELFPAY | END 2020-10-09 23:59 | disposition home or self-care (01) | LOC: SPT 06:00 | PROVIDERS: PCP Nurse Practitioner Family; Referring Provider Anesthesiology Pain Medicine; Visit Provider Anesthesiology Pain Medicine | DX: G40.822 Epileptic spasms, not intractable, without status epilepticus (principal); F17.210 Nicotine dependence, cigarettes, uncomplicated; M54.5 Low back pain; G89.29 Other chronic pain | CPT/HCPCS: 93798 ==

== ENCOUNTER 2020-09-09 06:00 | Outpatient (RCR) | payer MEDICAID, SELFPAY | END 2020-10-09 23:59 | disposition home or self-care (01) | LOC: SPT 06:00 | PROVIDERS: PCP Nurse Practitioner Family; Referring Provider Anesthesiology Pain Medicine; Visit Provider Anesthesiology Pain Medicine | DX: M54.5 Low back pain (principal); G89.29 Other chronic pain | CPT/HCPCS: 97110 ==

== ENCOUNTER 2020-09-13 09:10 | Outpatient (RCR) | payer MEDICAID, SELFPAY | END 2020-10-09 23:59 | disposition home or self-care (01) | LOC: CR 09:10 | PROVIDERS: PCP Nurse Practitioner Family; Referring Provider Internal Medicine Cardiovascular Disease; Visit Provider Internal Medicine Cardiovascular Disease | DX: Z95.5 Presence of coronary angioplasty implant and graft (principal) | CPT/HCPCS: 93798 ==

== ENCOUNTER 2020-10-10 06:00 | Outpatient (RCR) | payer MEDICAID, SELFPAY | END 2020-11-08 23:59 | disposition home or self-care (01) | LOC: SPT 06:00 | PROVIDERS: PCP Nurse Practitioner Family; Referring Provider Anesthesiology Pain Medicine; Visit Provider Anesthesiology Pain Medicine | DX: M54.5 Low back pain (principal); G89.29 Other chronic pain | CPT/HCPCS: 97110 ==

== ENCOUNTER 2020-10-10 08:54 | Outpatient (RCR) | payer MEDICAID, SELFPAY | END 2020-11-08 23:59 | disposition home or self-care (01) | LOC: CR 08:54 | PROVIDERS: PCP Nurse Practitioner Family; Referring Provider Internal Medicine Cardiovascular Disease; Visit Provider Internal Medicine Cardiovascular Disease | DX: Z95.5 Presence of coronary angioplasty implant and graft (principal) | CPT/HCPCS: 93798 ==

== ENCOUNTER 2020-11-09 06:00 | Outpatient (RCR) | payer MEDICAID, SELFPAY | END 2020-12-09 23:59 | disposition home or self-care (01) | LOC: SPT 06:00 | PROVIDERS: PCP Nurse Practitioner Family; Referring Provider Anesthesiology Pain Medicine; Visit Provider Anesthesiology Pain Medicine | DX: M54.5 Low back pain (principal); G89.29 Other chronic pain | CPT/HCPCS: 97110 ==

== ENCOUNTER 2020-11-09 10:51 | Outpatient (RCR) | payer MEDICAID, SELFPAY | END 2020-12-09 23:59 | disposition home or self-care (01) | LOC: CR 10:51 | PROVIDERS: PCP Nurse Practitioner Family; Referring Provider Internal Medicine Cardiovascular Disease; Visit Provider Internal Medicine Cardiovascular Disease | DX: Z95.5 Presence of coronary angioplasty implant and graft (principal) | CPT/HCPCS: 93798 ==

== ENCOUNTER 2020-11-25 15:43 | Emergency (ER) | payer MEDICAID, SELFPAY ==
[2020-11-25 16:00] VITALS: BP 142/92; PULSE 69; RESP 18; TEMP 36.8; O2SAT 96; BMI 31.4
--- NOTE | 2020-11-25 16:37 | XRR_ITS ---
PROCEDURE INFORMATION: Exam: XR Thoracic Spine Exam date and time: 11/25/2020 4:37 PM Age: 55 years old Clinical indication: Injury or trauma; Fall; Blunt trauma (contusions or hematomas); Additional info: Fell back into table, now has back pain TECHNIQUE: Imaging protocol: XR of the thoracic spine. Views: 3 views. COMPARISON: CT abdomen pelvis w con* [id number] 11/03/2019 10:29 PM FINDINGS: Bones/joints: Mild rightward thoracic curvature. The vertebral body stature is intact. Mild degenerative endplate changes in the lower thoracic levels. No fracture or subluxation. Soft tissues: Unremarkable. XR/XR thoracic spine 3V* [id number] IMPRESSION: 1. No acute finding.
--- NOTE | 2020-11-25 16:37 | XRR_ITS ---
PROCEDURE INFORMATION: Exam: XR Lumbosacral Spine Exam date and time: 11/25/2020 4:37 PM Age: 55 years old Clinical indication: Injury or trauma; Fall; Blunt trauma (contusions or hematomas); Additional info: Fell back into table, now has back pain TECHNIQUE: Imaging protocol: XR of the lumbosacral spine. Views: 2 or 3 views. COMPARISON: CT abdomen pelvis w con* [id number] 11/03/2019 10:29 PM FINDINGS: Bones/joints: The vertebral body stature is normal. Anterior degenerative endplate changes at L3-L4. Chronic bilateral L5 pars fractures with grade 1 anterior subluxation. Soft tissues: Unremarkable. XR/XR lumbar spine 2-3V* [id number] IMPRESSION: 1. No acute finding.
--- NOTE | 2020-11-25 16:38 | W.ED.BACK ---
HPI - Back Pain/Injury General: Chief Complaint: Back Pain/Injury Stated Complaint: FALL, Back pain Time Seen by Provider: 11/25/20 16:19 History of Present Illness: HPI Narrative: Patient is a 55-year-old male comes to the ED with back pain after fall. Injury occurred last night. Patient says he was out dancing at the [employer] and he fell back into a table. He is now having mid back and lower back pain. Denies any head trauma or loss of consciousness. He describes the pain as sharp and he rates it a 9 out of 10. Denies any pain radiating down into the legs. Denies weakness to lower extremities, bladder or bowel incontinence or pelvic anesthesia. He did not take any Tylenol or ibuprofen today before coming to the ED. Associated symptoms: Deny abdominal pain, chills, dysuria, fatigue, fever(s), hematuria, nausea or vomiting Review of Systems Const: Denies: fever(s), chills or fatigue Eyes: Denies: change in vision or eye discomfort ENMT: Denies: throat pain, odynophagia, nasal discharge or nasal congestion Card: Denies: chest pain, palpitations, edema, swelling of feet/ankles, dyspnea on exertion or orthopnea Resp: Denies: dyspnea, productive cough or non-productive cough GI: Denies: abdominal pain, nausea, vomiting, diarrhea, constipation or hematochezia : Denies: flank pain, difficulty urinating, dysuria or hematuria Musc: Reports: back pain; Denies: neck pain or extremity swelling Skin/Breast: Denies: rash or new lesions Neuro: Denies: headache(s), numbness in extremities or weakness in extremities [facility] ED PFSH: Medical History Atypical chest pain Benign essential hypertension with target blood pressure below 140/90 Chronic low back pain Coronary artery disease Dyslipidemia Epilepsy Glucose intolerance Hypothyroidism Obesity Smoker Type 2 diabetes mellitus Surgical History H/O umbilical hernia repair History of appendectomy Family History Father Family history of premature coronary artery disease Had a myocardial infarction in his 40s. Diabetes CAD (coronary artery disease) Chronic kidney disease (CKD) Stroke Brother Family history of premature coronary artery disease CAD (coronary artery disease) Had PA in the 50s Diabetes Stroke Grandmother CAD (coronary artery disease) Diabetes Grandfather CAD (coronary artery disease) Mother CAD (coronary artery disease) Cancer Diabetes Family/Other Lung disease Denies family history of Clotting disorder Dementia Suicide Anesthesia complication Bleeding disorder Social History Smoking and tobacco status: former smoker Quit status (tobacco): has quit using tobacco Year quit tobacco: 04/22/2020- USING [employer] Alcohol intake: current Alcohol intake frequency: holidays/special occasions only Household members: spouse Housing: House History of recent travel: No Physical Exam Const: COMMON NORMALS: no acute distress, patient oriented x3 and alert GENERAL APPEARANCE: cooperative and comfortable HENMT: COMMON NORMALS: normocephalic HEAD & SCALP: normocephalic MOUTH: Normal oral and palatal mucosa present THROAT: posterior oropharynx normal and uvula midline Neck/C-Spine: COMMON NORMALS: supple GENERAL: Yes normal visual inspection Resp: COMMON NORMALS: normal respiratory effort, No retractions, No use of accessory muscles and clear to auscultation bilaterally AUSCULTATION: clear to auscultation bilaterally Cardio: COMMON NORMALS: regular rate, regular rhythm, S1 normal heart sound present, S2 normal heart sound present, No gallops present (Cardio), No clicks present (Cardio), No murmurs present (Cardio) and Peripheral pulses 2+ throughout RATE: regular rate RHYTHM: regular rhythm HEART SOUNDS: S1 normal heart sound present and S2 normal heart sound present PERIPHERAL PULSES: Peripheral pulses 2+ throughout GI: COMMON NORMALS: Normal to inspection, nondistended, normoactive bowel sounds present, Soft to palpation, non-tender and no masses PALPATION: Yes Soft to palpation : COMMON NORMALS: Yes no CVA tenderness BLADDER/KIDNEY EXAM: Yes no CVA tenderness Back/Pelvis: COMMON NORMALS: no CVA tenderness THORACIC SPINE/UPPER BACK: Yes pain with ROM, No thoracic spinal tenderness and Yes paraspinal muscle tenderness Thoracic paraspinal muscle tenderness: bilateral Bilateral thoracic paraspinal muscle tenderness: T5 and T6 LUMBAR SPINE/LOWER BACK: Yes pain with ROM, No lumbar spinal tenderness and Yes paraspinal muscle tenderness Lumbar paraspinal muscle tenderness: bilateral Bilateral lumbar paraspinal muscle tenderness: L4 and L5 Extremity: COMMON NORMALS: normal to inspection Neuro: COMMON NORMALS: patient oriented x3 and moves all extremities SENSORIUM/ORIENTATION: Yes alert Skin: GENERAL SKIN EXAM: dry skin Course Vital Signs: Vital signs: Vital Signs Temperature 98.3 F 11/25/20 16:00 Pulse Rate 69 11/25/20 16:00 Respiratory Rate 18 11/25/20 16:00 Blood Pressure 142/92 11/25/20 16:00 Pulse Oximetry 96 11/25/20 16:00 MDM - Back Pain/Injury Imaging Data^: Xray Ortho: Attestation: I personally reviewed and interpreted this imaging study as follows: Radiologist's impression: [employer] [place], [place] [address]DXiv ReportSigned Patient: Alonso Golden #: [id number]: 1965Acct#:[id number]/Sex: 55 / MADM Date: 11/25/20Loc: ERRoom/Bed:Attending Dr: Ordering Provider/Ordering MD: Sadiq Villalobos Date of Service: 11/25/20 Procedure(s): XR lumbar spine 2-3V* [id number] Accession Number(s): [id number] Report Number: [id number] PROCEDURE INFORMATION: Exam: XR Lumbosacral Spine Exam date and time: 11/25/2020 4:37 PM Age: 55 years old Clinical indication: Injury or trauma; Fall; Blunt trauma (contusions or hematomas); Additional info: Fell back into table, now has back pain TECHNIQUE: Imaging protocol: XR of the lumbosacral spine. Views: 2 or 3 views. COMPARISON: CT abdomen pelvis w con* [id number] 11/03/2019 10:29 PM FINDINGS: Bones/joints: The vertebral body stature is normal. Anterior degenerative endplate changes at L3-L4. Chronic bilateral L5 pars fractures with grade 1 anterior subluxation. Soft tissues: Unremarkable. XR/XR lumbar spine 2-3V* [id number] IMPRESSION: 1. No acute finding. Dictated By:Selam Tracy By:Selam Tracy Date/Time:11/25/20 1844DD/ [address] [employer] [place], [place] [address]SJiw ReportSigned Patient: Alonso Golden #: [id number]: 1965Acct#:[id number]/Sex: 55 / MADM Date: 11/25/20Loc: ERRoom/Bed:Attending Dr: Ordering Provider/Ordering MD: Sadiq Villalobos Date of Service: 11/25/20 Procedure(s): XR thoracic spine 3V* [id number] Accession Number(s): [id number] Report Number: [id number] PROCEDURE INFORMATION: Exam: XR Thoracic Spine Exam date and time: 11/25/2020 4:37 PM Age: 55 years old Clinical indication: Injury or trauma; Fall; Blunt trauma (contusions or hematomas); Additional info: Fell back into table, now has back pain TECHNIQUE: Imaging protocol: XR of the thoracic spine. Views: 3 views. COMPARISON: CT abdomen pelvis w con* [id number] 11/03/2019 10:29 PM FINDINGS: Bones/joints: Mild rightward thoracic curvature. The vertebral body stature is intact. Mild degenerative endplate changes in the lower thoracic levels. No fracture or subluxation. Soft tissues: Unremarkable. XR/XR thoracic spine 3V* [id number] IMPRESSION: 1. No acute finding. Dictated By:Selam Tracy By:Selam Tracy Date/Time:11/25/201845DD/ 44 Discharge Plan Discharge Patient Disposition: Home Clinical Impression: Strain of lumbar region Qualifiers: Encounter type: initial encounter Qualified Code(s): S39.012A - Strain of muscle, fascia and tendon of lower back, initial encounter Condition: Stable Prescriptions: New Celebrex 100 mg capsule 100 mg PO BID Qty: 20 RF: 0 No Action venlafaxine 75 mg capsule,extended release 24hr 75 mg PO DAILY RF: 0 glipizide 5 mg tablet 5 mg PO DAILY RF: 0 spironolactone 50 mg tablet 50 mg PO DAILY RF: 0 metformin 1,000 mg tablet extended release 24hr 1,000 mg PO BID RF: 0 Hold Instructions: Resume on 07/13/20. May restart this medication on 13 of July nitroglycerin 0.4 mg tablet, sublingual 0.4 mg SUBLINGUAL Q5M PRN (Reason: chest pain) 30 Days Qty: 30 RF: 3 baclofen 10 mg tablet 10 mg PO BID PRN (Reason: spasm) Qty: 60 RF: 0 aspirin 81 mg tablet,chewable 81 mg PO DAILY Qty: 90 RF: 3 rosuvastatin [Crestor] 5 mg tablet 5 mg PO DAILY Qty: 90 RF: 3 metoprolol tartrate 25 mg tablet 25 mg PO BID Qty: 180 RF: 3 levetiracetam [Keppra] 500 mg tablet 500 mg PO BID Qty: 60 RF: 4 levothyroxine 200 mcg capsule 175 mcg PO DAILY RF: 0 lisinopril 40 mg tablet 40 mg PO DAILY RF: 0 Plavix 75 mg tablet 75 mg PO DAILY 30 Days Qty: 30 RF: 5 Discharge Orders: Discharge ED (Routine); Ordered 11/25/20 Ordered By: Gildardo Brody Referrals: Dorita Flaherty FNP [Primary Care Provider] - Discharge Diet: Usual diet Discharge Activity: Increase activity as tolerated Patient Instructions: Back Pain (ED) Activity Restrictions/Additional Instructions: Follow-up with medical provider as directed. Take medications as prescribed. Return to the ER or your medical provider if condition worsens. Please read and understand discharge instructions. If any questions ask please. Coding Level of Care Code ED Channel Process Supervisor for Marva Fwaneesh Exam Comprehensive
[2020-11-25] MEDS: HYDROcodone-acetaminophen 5-325 mg Tablet 1 TAB PO (17:25)
== END 2020-11-25 17:34 | disposition home or self-care (01) ==
PROVIDERS: Emergency Provider Nurse Practitioner Family; PCP Nurse Practitioner Family
DX: S39.012A Strain of muscle, fascia and tendon of lower back, initial encounter (principal); Z79.84 Long term (current) use of oral hypoglycemic drugs; Z79.02 Long term (current) use of antithrombotics/antiplatelets; Z79.82 Long term (current) use of aspirin; I10 Essential (primary) hypertension; I25.10 Atherosclerotic heart disease of native coronary artery without angina pectoris; E78.5 Hyperlipidemia, unspecified; E11.9 Type 2 diabetes mellitus without complications; Z87.891 Personal history of nicotine dependence; W19.XXXA Unspecified fall, initial encounter; Y93.41 Activity, dancing
CPT/HCPCS: 72072; 72100; 99283

== ENCOUNTER 2020-11-28 20:41 | Emergency (ER) | payer MEDICAID, SELFPAY ==
[2020-11-28 20:43] VITALS: BP 121/89; PULSE 84; RESP 17; TEMP 36.9; O2SAT 95; BMI 30.4
--- NOTE | 2020-11-28 20:46 | XRR_ITS ---
PROCEDURE INFORMATION: Exam: XR Chest Exam date and time: 11/28/2020 8:46 PM Age: 55 years old Clinical indication: Sternal or substernal pain; Patient HX: Sternal cp w/ smokers cough TECHNIQUE: Imaging protocol: XR of the chest. Views: 1 view. COMPARISON: CR XR chest 1V portable [id number] 10/10/2019 5:02 PM FINDINGS: Lungs: Unremarkable. No consolidation. Pleural spaces: Unremarkable. No pleural effusion. No pneumothorax. Heart/Mediastinum: Unremarkable. No cardiomegaly. Bones/joints: Unremarkable. Soft tissues: Stable metallic foreign body overlying the right anterior chest wall. XR/XR chest 1V portable [id number] IMPRESSION: No acute disease.
--- NOTE | 2020-11-28 20:46 | ECG_ITS ---
[facility] Test Date: 2020-11-28 Pat Name: Alonso Golden Department: Room: Gender: Male Whizzer Operator: : 1965 Requested By: Geovanni Macedo Order Number: [id number] Mariaa MD: Lou Carpenter M.D. Measurements Intervals [place] Rate: 88 P: 21 ND: 163 QRS: -21 QRSD: 95 T: 60 QT: 384 QTc: 466 Interpretive Statements SINUS RHYTHM BORDERLINE LEFT AXIS DEVIATION [QRS AXIS < -20] NONSPECIFIC T-WAVE ABNORMALITY Compared to ECG 07/10/2020 23:05:20 No significant changes Electronically Signed On 11-29-2020 9:25:52 CDT by Lou Carpenter M.D. [email or web address] [email or web address].[employer]/store/NU/[id number] f
[2020-11-28 20:50] VITALS: PULSE 80; RESP 18; O2SAT 95
[2020-11-28 20:54] VITALS: O2SAT 95
[2020-11-28 20:56] LABS: Basophils # 0.1 10^3/uL (0.0-0.1); Basophils % 1.1 %; Eosinophils # 0.2 10^3/uL (0.0-0.8); Eosinophils % 3.9 %; Hematocrit 37.6 % (42.0-52.0); Lymphocytes # 1.1 10^3/uL (0.8-4.8); Mean Corpuscular HGB Conc 34.6 g/dL (30.0-36.0); Mean Corpuscular Hemoglobin 31.3 pg (28.0-34.0); Mean Corpuscular Volume 90.4 fL (80-94); Mean Platelet Volume 10.4 fL (7.4-10.4); Monocytes # 0.4 10^3/uL (0.2-0.9); Monocytes % 8.8 %; Neutrophils # 2.92 10^3/uL (1.8-7.7); Neutrophils % 62.6 %; Nucleated Red Blood Cells % 0 %; Platelet Count 124 10^3/cmm (130-400); Red Blood Count 4.16 10^6/uL (4.1-5.3); Red Cell Distribution Width 13.7 % (12.1-15.1); White Blood Count 4.7 10^3/uL (4.0-10.0)
[2020-11-28 21:12] LABS: Troponin(5th) Baseline 12 ng/L (0-15)
[2020-11-28 21:17] LABS: D Dimer 6.23 ug/mIFEU (0-0.59)
[2020-11-28 21:19] LABS: Alanine Aminotransferase 23 U/L (0-41); Albumin Level 3.9 g/dL (3.5-5.2); Alkaline Phosphatase 111 IU/L (40-130); Aspartate Amino Transferase 38 U/L (0-40); Blood Urea Nitrogen 9 mg/dL (6-20); Calcium 8.3 mg/dL (8.5-10.5); Carbon Dioxide 23 mmol/L (22-29); Chloride 103 mmol/L (98-107); Globulin 2.9 g/dL (1.3-4.6); Glomerular Filtration Rate 78.2 mL/min (90-130); Glucose 215 mg/dL (65-115); NT Pro B Type Natriuretic Pept 78 pg/mL (0-125); Osmolality Calculated 291 mOsm/kg (285-295); Sodium 138 mmol/L (136-145); Total Bilirubin 0.7 mg/dL (0.15-1.2); Total Protein 6.8 g/dL (6.6-8.7)
[2020-11-28 21:19] LABS: Add Urine Microscopic? NO; Charge for UA Resulting for Rev
[2020-11-28 21:20] LABS: Anion Gap 15.8 (5-19); Potassium 3.8 mmol/L (3.5-5.1)
--- NOTE | 2020-11-28 21:22 | CTR_ITS ---
PROCEDURE INFORMATION: Exam: CTA Chest With Contrast Exam date and time: 11/28/2020 9:22 PM Age: 55 years old Clinical indication: Pain and abnormal findings; Abnormal diagnostic tests; Elevated d-dimer; Chest pressure; Prior surgery; Surgery type: Cardiac stents. Gb. ; Patient HX: Chest pain with elevated ddimer. ; Additional info: Cp elevated d dimer TECHNIQUE: Imaging protocol: Computed tomographic angiography of the chest with contrast. 3D rendering (Not supervised by radiologist): MIP and/or 3D reconstructed images were created by the technologist. Radiation optimization: All CT scans at this facility use at least one of these dose optimization techniques: automated exposure control; mA and/or kV adjustment per patient size (includes targeted exams where dose is matched to clinical indication); or iterative reconstruction. Contrast material: OMNI 350; Contrast volume: 95 ml; Contrast route: INTRAVENOUS (IV); COMPARISON: CTA Thoracic/Abd/Pelvis Aorta 09/19/2018 4:49 PM RADIATION DOSE METRICS: Total DLP (mGy-cm): 584.04 FINDINGS: Pulmonary arteries: No pulmonary embolism. Aorta: Mild atherosclerotic disease of the aorta without aneurysm. No aortic dissection. Lungs: Unremarkable. No consolidation. No masses. Pleural spaces: Unremarkable. No pneumothorax. No pleural effusion. Heart: Unremarkable. No cardiomegaly. No pericardial effusion. Lymph nodes: Unremarkable. No enlarged lymph nodes. Liver: There is cirrhotic morphology of the liver with multiple upper abdominal collateral vessels and splenomegaly. Gallbladder and bile ducts: There has been a cholecystectomy. Intraperitoneal space: There is a small amount of ascites. Bones/joints: There are multiple bone islands. Soft tissues: Stable metallic foreign body in the anterior abdominal wall. Other findings: The CT/CT angio chest PE protcl [id number] IMPRESSION: 1. No pulmonary embolism. 2. Mild atherosclerotic disease of the aorta without aneurysm. 3. Cirrhosis with portal venous hypertension. 4. There is a stable, small amount of ascites. Radiation Dose CTDIVOL = (mGy): DLP = 584.04 (mGy-cm)
--- NOTE | 2020-11-28 21:29 | W.ED.CHESTPA ---
HPI - Chest Pain General: Chief Complaint: Chest Pain Stated Complaint: CP Time Seen by Provider: 11/28/20 20:44 History of Present Illness: HPI narrative: The patient is a 55-year-old male with past medical history hypertension, coronary artery disease with stents, diabetes, and chronic smoker. He comes to the ER complaining of midsternal chest pain. He took a nitroglycerin at home earlier today that relieved it and after another episode occurred he took another one which did nothing. EMS arrived and gave him 2 nitros which took his pain from an 8 to a 6. He says the pain feels sharp and does not radiate anywhere. Pain is very reproducible by anterior chest tenderness. He did go to cardiac rehab earlier today and says when he got home less than the pain started. MD complaint: chest pain Pertinent past history: coronary artery disease Timing of current episode: constant Onset: during rest and during exertion Pain location: substernal Pain radiation: none Severity: moderate Quality: sharp Relieving factors: nitroglycerin Exacerbating factors: inspiration, palpation and movement Associated symptoms: Reports no associated symptoms; Deny abdominal pain, dyspnea or palpitations Treatment prior to arrival: aspirin and nitroglycerin Review of Systems General: Reports: 10 or more systems reviewed and unremarkable except in HPI and below Const: Denies: fatigue Eyes: Denies: change in vision, blurry vision or eye redness ENMT: Denies: throat pain, swelling of lips/tongue, ear or mastoid pain or nasal congestion Card: Reports: chest pain; Denies: palpitations, irregular heart rhythm, edema, dyspnea on exertion or orthopnea Resp: Denies: dyspnea, productive cough or non-productive cough GI: Denies: abdominal pain, diarrhea or GI cramping : Denies: flank pain, urinary frequency or urinary urgency Musc: Denies: neck pain, back pain, extremity pain, joint pain, joint redness, limited range of motion or muscle weakness Skin/Breast: Denies: rash, pruritus, erythema, skin pain or skin tenderness Neuro: Denies: headache(s), numbness in extremities, weakness in extremities, sensory changes, difficulty walking, dizziness, confusion or Slurred speech present Psych: Denies: anxiety or depression Endo: Denies: polyuria All/Imm: Denies: urticaria, throat swelling or tongue swelling PFS ED PFSH: Medical History Atypical chest pain Benign essential hypertension with target blood pressure below 140/90 Chronic low back pain Coronary artery disease Dyslipidemia Epilepsy Glucose intolerance Hypothyroidism Obesity Smoker Type 2 diabetes mellitus Surgical History H/O umbilical hernia repair History of appendectomy Family History Father Family history of premature coronary artery disease Had a myocardial infarction in his 40s. Diabetes CAD (coronary artery disease) Chronic kidney disease (CKD) Stroke Brother Family history of premature coronary artery disease CAD (coronary artery disease) Had [place] in the 50s Diabetes Stroke Grandmother CAD (coronary artery disease) Diabetes Grandfather CAD (coronary artery disease) Mother CAD (coronary artery disease) Cancer Diabetes Family/Other Lung disease Denies family history of Clotting disorder Dementia Suicide Anesthesia complication Bleeding disorder Social History Smoking and tobacco status: current every day smoker Alcohol intake: current Alcohol intake frequency: holidays/special occasions only Household members: spouse Housing: House History of recent travel: No Physical Exam Const: COMMON NORMALS: no acute distress, average body habitus, patient oriented x3, no limitations, healthy appearing, alert and well nourished GENERAL APPEARANCE: cooperative, comfortable, well kempt and well developed ORIENTATION/CONSCIOUSNESS: Yes awake, Yes oriented to person, Yes oriented to place and Yes oriented to time HENMT: COMMON NORMALS: normocephalic, external ears normal and Normal external nose present HEAD & SCALP: normal to inspection and normocephalic NOSE: Normal external nose present EXTERNAL EAR: Yes external ears normal MOUTH: Normal oral and palatal mucosa present THROAT: posterior oropharynx normal Eye: COMMON NORMALS: Equal, round and reactive pupils present and EOMs intact bilaterally GENERAL EYE: appearance normal, both eyes and all related structures PUPIL: Yes Equal, round and reactive pupils present Neck/C-Spine: COMMON NORMALS: full ROM, no lymphadenopathy, no meningeal signs and no JVD GENERAL: Yes normal visual inspection Lymph: LYMPHATIC: no lymphadenopathy noted Chest: COMMONS NORMALS: normal inspection of the chest and normal palpation of entire chest wall Resp: COMMON NORMALS: normal respiratory effort, No retractions, No use of accessory muscles, clear to auscultation bilaterally and percussion normal EFFORT & INSPECTION: Yes able to speak in complete sentences AUSCULTATION: clear to auscultation bilaterally PERCUSSION: percussion normal Cardio: COMMON NORMALS: no JVD, regular rate, regular rhythm, S1 normal heart sound present, S2 normal heart sound present and Peripheral pulses 2+ throughout RATE: regular rate RHYTHM: regular rhythm HEART SOUNDS: S1 normal heart sound present and S2 normal heart sound present PERIPHERAL PULSES: Peripheral pulses 2+ throughout GI: COMMON NORMALS: Normal to inspection, nondistended, normoactive bowel sounds present, Soft to palpation, non-tender and no masses INSPECTION: Yes normal to inspection PALPATION: Yes Soft to palpation : COMMON NORMALS: Yes no CVA tenderness BLADDER/KIDNEY EXAM: Yes no CVA tenderness Back/Pelvis: COMMON NORMALS: no CVA tenderness, thoracic and lumbar spine normal to inspection, no thoracic nor lumbar tenderness and thoraco-lumbar ROM normal Extremity: COMMON NORMALS: normal to inspection, full ROM, capillary refill normal, no joint enlargement and no pedal edema GENERAL: Yes normal exam except as noted Neuro: COMMON NORMALS: patient oriented x3, CN's II-XII intact bilaterally, moves all extremities, no focal motor deficits, no sensory deficits noted and gait normal SENSORIUM/ORIENTATION: Yes alert, Yes oriented to person, Yes oriented to place and Yes oriented to time MENINGEAL SIGNS: Yes no meningeal signs Psych: COMMON NORMALS: mental status grossly normal, Normal thought process present, cooperative, normal affect and speech normal APPEARANCE: Yes well kempt ATTITUDE: Yes calm SPEECH: Yes normal speech THOUGHT PROCESS: Normal thought process present Skin: COMMON NORMALS: no rashes or lesions noted GENERAL SKIN EXAM: no rashes or lesions noted Course Vital Signs: Vital signs: Vital Signs Temperature 98.4 F 11/28/20 20:43 Pulse Rate 75 11/28/20 21:37 Respiratory Rate 21 H 11/28/20 21:37 Blood Pressure 156/83 11/28/20 21:37 Pulse Oximetry 97 11/28/20 21:37 MDM - Chest Pain MDM Narrative: Medical decision making narrative: The patient came in with atypical chest pain. It was very reproducible with anterior chest wall palpation and it was in the midline. No radiation. He went to cardiac rehab and it started after. Slightly concerning was the fact that he said 1 nitroglycerin at home did relieve his chest pain although whenever it returned EMS gave 2 nitroglycerin which did not relieve his chest pain. On arrival he was very tender with palpation and over the next 20 to 30 minutes his chest pain spontaneously resolved. Troponins were negative x2 and EKG shows no ST elevations x2. Discussed with Dr. Guillaume who recommends having him follow-up as outpatient. He will return to the ER if he has more chest pain. Lab Data: Labs: Lab Results 11/28/20 11/28/20 11/28/20 Range/Units 20:30 20:30 20:30 WBC 4.7 (4.0-10.0) 10^3/ uL RBC 4.16 (4.1-5.3) 10^6/u L Hgb 13.0 (11.7-16.6) g/dL Hct 37.6 L (42.0-52.0) % MCV 90.4 (80-94) fL MCH 31.3 (28.0-34.0) pg MCHC 34.6 (30.0-36.0) g/dL RDW 13.7 (12.1-15.1) % Plt Count 124 L (130-400) 10^3/c mm MPV 10.4 (7.4-10.4) fL Neut % (Auto) 62.6 % Lymph % (Auto) 23.0 % Rabun % (Auto) 8.8 % Eos % (Auto) 3.9 % Baso % (Auto) 1.1 % Neut # (Auto) 2.92 (1.8-7.7) 10^3/u L Lymph # (Auto) 1.1 (0.8-4.8) 10^3/u L Rabun # (Auto) 0.4 (0.2-0.9) 10^3/u L Eos # (Auto) 0.2 (0.0-0.8) 10^3/u L Baso # (Auto) 0.1 (0.0-0.1) 10^3/u L Nucleated RBC % (a uto) 0 % Nucleated RBCs # 0.0 /100WBC PT 15.60 H (12.1-14.9) SECO NDS INR 1.20 (0.8-1.2) APTT 32.0 (23.9-36.7) SECO NDS D-Dimer 6.23 H (0-0.59) ug/mIFE U Sodium 138 (136-145) mmol/L Potassium 3.8 (3.5-5.1) mmol/L Chloride 103 (98-107) mmol/L Carbon Dioxide 23 (22-29) mmol/L Anion Gap 15.8 (5-19) BUN 9 (6-20) mg/dL Creatinine 1.0 (0.7-1.2) mg/dL GFR Calculation 78.2 L (90-130) mL/min Glucose 215 H (65-115) mg/dL Calculated Osmolal ity 291 (285-295) mOsm/k g Calcium 8.3 L (8.5-10.5) mg/dL Total Bilirubin 0.7 (0.15-1.2) mg/dL AST 38 (0-40) U/L ALT 23 (0-41) U/L Alkaline Phosphata se 111 (40-130) IU/L Troponin T Baselin e (0-15) ng/L Troponin T 120 Min [place] (0-15) ng/L Delta Troponin T (0-10) ABS# NT-Pro-B Natriuret Pep 78 (0-125) pg/mL Total Protein 6.8 (6.6-8.7) g/dL Albumin 3.9 (3.5-5.2) g/dL Globulin 2.9 (1.3-4.6) g/dL Urine Color (Yellow) Urine Appearance (CLEAR) Urine pH (5-7) Ur Specific Gravit y (1.005-1.030) Urine Protein (Negative) Urine Glucose (UA) (Normal) Urine Ketones (Negative) Urine Blood (Negative) Urine Nitrate (Negative) Urine Bilirubin (Negative) Urine Urobilinogen (Negative) mg/dL Ur Leukocyte Tamica ase (Negative) 11/28/20 11/28/20 11/28/20 Range/Units 20:30 20:30 21:05 WBC (4.0-10.0) 10^3/ uL RBC (4.1-5.3) 10^6/u L Hgb (11.7-16.6) g/dL Hct (42.0-52.0) % MCV (80-94) fL MCH (28.0-34.0) pg MCHC (30.0-36.0) g/dL RDW (12.1-15.1) % Plt Count (130-400) 10^3/c mm MPV (7.4-10.4) fL Neut % (Auto) % Lymph % (Auto) % Rabun % (Auto) % Eos % (Auto) % Baso % (Auto) % Neut # (Auto) (1.8-7.7) 10^3/u L Lymph # (Auto) (0.8-4.8) 10^3/u L Rabun # (Auto) (0.2-0.9) 10^3/u L Eos # (Auto) (0.0-0.8) 10^3/u L Baso # (Auto) (0.0-0.1) 10^3/u L Nucleated RBC % (a uto) % Nucleated RBCs # /100WBC PT (12.1-14.9) SECO NDS INR (0.8-1.2) APTT (23.9-36.7) SECO NDS D-Dimer Cancelled (0-0.59) ug/mIFE U Sodium (136-145) mmol/L Potassium (3.5-5.1) mmol/L Chloride (98-107) mmol/L Carbon Dioxide (22-29) mmol/L Anion Gap (5-19) BUN (6-20) mg/dL Creatinine (0.7-1.2) mg/dL GFR Calculation (90-130) mL/min Glucose (65-115) mg/dL Calculated Osmolal ity (285-295) mOsm/k g Calcium (8.5-10.5) mg/dL Total Bilirubin (0.15-1.2) mg/dL AST (0-40) U/L ALT (0-41) U/L Alkaline Phosphata se (40-130) IU/L Troponin T Baselin e 12 (0-15) ng/L Troponin T 120 Min [place] (0-15) ng/L Delta Troponin T (0-10) ABS# NT-Pro-B Natriuret Pep (0-125) pg/mL Total Protein (6.6-8.7) g/dL Albumin (3.5-5.2) g/dL Globulin (1.3-4.6) g/dL Urine Color Yellow (Yellow) Urine Appearance Clear (CLEAR) Urine pH 6.5 (5-7) Ur Specific Gravit y 1.010 (1.005-1.030) Urine Protein Neg (Negative) Urine Glucose (UA) 2+ (Normal) Urine Ketones Negative (Negative) Urine Blood Neg (Negative) Urine Nitrate Negative (Negative) Urine Bilirubin Neg (Negative) Urine Urobilinogen 4 H (Negative) mg/dL Ur Leukocyte Tamica ase Negative (Negative) 11/28/20 Range/Units 22:30 WBC (4.0-10.0) 10^3/ uL RBC (4.1-5.3) 10^6/u L Hgb (11.7-16.6) g/dL Hct (42.0-52.0) % MCV (80-94) fL MCH (28.0-34.0) pg MCHC (30.0-36.0) g/dL RDW (12.1-15.1) % Plt Count (130-400) 10^3/c mm MPV (7.4-10.4) fL Neut % (Auto) % Lymph % (Auto) % [place] % (Auto) % Eos % (Auto) % Baso % (Auto) % Neut # (Auto) (1.8-7.7) 10^3/u L Lymph # (Auto) (0.8-4.8) 10^3/u L Rab[place] # (Auto) (0.2-0.9) 10^3/u L Eos # (Auto) (0.0-0.8) 10^3/u L Baso # (Auto) (0.0-0.1) 10^3/u L Nucleated RBC % (a uto) % Nucleated RBCs # /100WBC PT (12.1-14.9) SECO NDS INR (0.8-1.2) APTT (23.9-36.7) SECO NDS D-Dimer (0-0.59) ug/mIFE U Sodium (136-145) mmol/L Potassium (3.5-5.1) mmol/L Chloride (98-107) mmol/L Carbon Dioxide (22-29) mmol/L Anion Gap (5-19) BUN (6-20) mg/dL Creatinine (0.7-1.2) mg/dL GFR Calculation (90-130) mL/min Glucose (65-115) mg/dL Calculated Osmolal ity (285-295) mOsm/k g Calcium (8.5-10.5) mg/dL Total Bilirubin (0.15-1.2) mg/dL AST (0-40) U/L ALT (0-41) U/L Alkaline Phosphata se (40-130) IU/L Troponin T Baselin e (0-15) ng/L Troponin T 120 Min [place] 9.50 (0-15) ng/L Delta Troponin T -2.50 L (0-10) ABS# NT-Pro-B Natriuret Pep (0-125) pg/mL Total Protein (6.6-8.7) g/dL Albumin (3.5-5.2) g/dL Globulin (1.3-4.6) g/dL Urine Color (Yellow) Urine Appearance (CLEAR) Urine pH (5-7) Ur Specific Gravit y (1.005-1.030) Urine Protein (Negative) Urine Glucose (UA) (Normal) Urine Ketones (Negative) Urine Blood (Negative) Urine Nitrate (Negative) Urine Bilirubin (Negative) Urine Urobilinogen (Negative) mg/dL Ur Leukocyte Tamica ase (Negative) Discharge Plan Discharge Patient Disposition: Home Clinical Impression: Atypical chest pain Condition: Stable Prescriptions: No Action venlafaxine 75 mg capsule,extended release 24hr 75 mg PO DAILY RF: 0 glipizide 5 mg tablet 5 mg PO DAILY RF: 0 spironolactone 50 mg tablet 50 mg PO DAILY RF: 0 metformin 1,000 mg tablet extended release 24hr 1,000 mg PO BID RF: 0 Hold Instructions: Resume on 07/13/20. May restart this medication on 13 of July levothyroxine 150 mcg capsule 150 mcg PO DAILY RF: 0 nitroglycerin 0.4 mg tablet, sublingual 0.4 mg SUBLINGUAL Q5M PRN (Reason: chest pain) 30 Days Qty: 30 RF: 3 aspirin 81 mg tablet,chewable 81 mg PO DAILY Qty: 90 RF: 3 rosuvastatin [Crestor] 5 mg tablet 5 mg PO DAILY Qty: 90 RF: 3 metoprolol tartrate 25 mg tablet 25 mg PO BID Qty: 180 RF: 3 levetiracetam [Keppra] 500 mg tablet 500 mg PO BID Qty: 60 RF: 4 lisinopril 40 mg tablet 40 mg PO DAILY RF: 0 clopidogrel [Plavix] 75 mg tablet 75 mg PO DAILY 30 Days Qty: 30 RF: 5 celecoxib [Celebrex] 100 mg capsule 100 mg PO BID Qty: 20 RF: 0 Discharge Orders: Discharge ED (Routine); Ordered 11/28/20 Ordered By: Charles Nieto Referrals: Dorita Flaherty FNP [Primary Care Provider] - Discharge Diet: Advance as tolerated Discharge Activity: Resume usual activity Patient Instructions: Chest Pain (ED), Opioid Safety Activity Restrictions/Additional Instructions: You have had an episode of atypical chest pain. It is reproducible when your chest is touched and spontaneously in the ER shortly after he arrived the pain resolved. Your troponins and EKGs have been normal as well. I discussed with Dr. Guillaume who recommends you follow-up with Dr. Flores in a few days. Return to the ER at anytime with worsening symptoms. Continue to use your nitroglycerin at home with any episodes of chest pain and return to the ER with return of your chest pain. Coding Level of Care Code ED Mine Motor Engineer for Marva Fwaneesh Exam Comprehensive
[2020-11-28 21:30] LABS: Bilirubin Urine Neg (Negative); Blood Urine Neg (Negative); Glucose Urine UA 2+ (Normal); Ketones Urine Negative (Negative); Leukocyte Esterase Urine Negative (Negative); Nitrate Urine Negative (Negative); Protein Urine Neg (Negative); Urine Appearance Clear (CLEAR); Urine Color Yellow (Yellow); Urobilinogen Urine 4 mg/dL (Negative); pH Urine 6.5 (5-7)
[2020-11-28 21:37] VITALS: BP 156/83; PULSE 75; RESP 21; O2SAT 97
[2020-11-28] MEDS: iohexol 350 mg/mL 100 mL Btl IV (21:41)
--- NOTE | 2020-11-28 21:57 | PC.NURSE ---
Resting, watching tv, lights dimmed at pt request for comfort. No needs identified at this time. Will continue to monitor.
--- NOTE | 2020-11-28 22:46 | ECG_ITS ---
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 Measurements Intervals [place] Rate: 66 P: 30 DC: 163 QRS: -16 QRSD: 83 T: 69 QT: 423 QTc: 443 Interpretive Statements SINUS RHYTHM MINIMAL VOLTAGE CRITERIA FOR LVH, CONSIDER NORMAL VARIANT [MEETS CRITERIA IN ONE OF: R(aVL), S(V1), R(V5), R(V5/V6)+S(V1)] NONSPECIFIC T-WAVE ABNORMALITY Compared to ECG 11/28/2020 20:43:24 No significant changes Electronically Signed On 11-29-2020 18:37:21 CDT by Vernon Guillaume M.D. [id number]
[2020-11-29 00:05] VITALS: BP 141/94; PULSE 72; RESP 18; O2SAT 97
== END 2020-11-29 00:09 | disposition home or self-care (01) ==
PROVIDERS: Emergency Medicine; Emergency Provider Family Medicine; PCP Nurse Practitioner Family
DX: R07.89 Other chest pain (principal); I25.10 Atherosclerotic heart disease of native coronary artery without angina pectoris; I10 Essential (primary) hypertension; E78.5 Hyperlipidemia, unspecified; E03.9 Hypothyroidism, unspecified; E66.9 Obesity, unspecified; Z68.30 Body mass index [BMI] 30.0-30.9, adult; E11.9 Type 2 diabetes mellitus without complications; Z79.84 Long term (current) use of oral hypoglycemic drugs; F17.200 Nicotine dependence, unspecified, uncomplicated; Z82.49 Family history of ischemic heart disease and other diseases of the circulatory system
CPT/HCPCS: 71045; 71275; 80053; 81003; 83880; 84484; 85025; 85378; 85610; 85730; 93005; 99283; Q9967

== ENCOUNTER 2020-12-07 11:47 | Emergency (ER) | payer MEDICAID, SELFPAY ==
[2020-12-07 12:43] VITALS: BP 120/79; PULSE 96; RESP 16; TEMP 36.9; O2SAT 94; BMI 31.5
--- NOTE | 2020-12-07 15:19 | W.ED.GENADLT ---
HPI - General Adult General: Chief complaint: Weakness Stated complaint: UNSTEADY/ALMOSE FELL 3X,FEELS DEHYDRATED Time Seen by Provider: 12/07/20 15:15 Source: patient Mode of arrival: ambulatory Limitations: no limitations History of Present Illness: HPI narrative: Patient is a 55-year-old male who presents to ED today stating that he does not feel well and feels weak. Patient states his air conditioning has been out of his house and he has been in a very hot environment over the past 3 days and sweating a lot. He tells me he feels very dehydrated. Patient is not complaining of dizziness or lightheadedness. He has no complaints of chest pain, shortness of breath, or difficulty breathing. No fevers. He does not complain of abdominal pain. Reports urine output is normal. Associated symptoms: Deny chest pain, confusion, dyspnea, headache(s), malaise, nausea, rash, palpitations, syncope or vomiting Review of Systems Const: Denies: fever(s), chills, body aches, fatigue or malaise Eyes: Denies: change in vision or blurry vision ENMT: Denies: throat pain or odynophagia Card: Denies: chest pain, palpitations, irregular heart rhythm, lightheadedness, syncope or dyspnea on exertion Resp: Denies: dyspnea, productive cough or pain on inspiration GI: Denies: abdominal pain, nausea, vomiting, heartburn or diarrhea : Denies: difficulty urinating or dysuria Musc: Denies: neck pain, back pain or joint pain Skin/Breast: Denies: rash Neuro: Reports: weakness in extremities and other (generalized weakness); Denies: headache(s), numbness in extremities, sensory changes, dizziness, confusion or difficulty communicating thoughts PFS ED PFSH: Medical History Atypical chest pain Benign essential hypertension with target blood pressure below 140/90 Chronic low back pain Coronary artery disease Dyslipidemia Epilepsy Glucose intolerance Hypothyroidism Obesity Smoker Type 2 diabetes mellitus Surgical History H/O umbilical hernia repair History of appendectomy Family History Father Family history of premature coronary artery disease Had a myocardial infarction in his 40s. Diabetes CAD (coronary artery disease) Chronic kidney disease (CKD) Stroke Brother Family history of premature coronary artery disease CAD (coronary artery disease) Had [place] in the 50s Diabetes Stroke Grandmother CAD (coronary artery disease) Diabetes Grandfather CAD (coronary artery disease) Mother CAD (coronary artery disease) Cancer Diabetes Family/Other Lung disease Denies family history of Clotting disorder Dementia Suicide Anesthesia complication Bleeding disorder Social History Smoking and tobacco status: current every day smoker Alcohol intake: current Alcohol intake frequency: holidays/special occasions only Household members: spouse Housing: House History of recent travel: No Physical Exam Const: COMMON NORMALS: no acute distress, average body habitus, patient oriented x3, no limitations, healthy appearing, alert and well nourished GENERAL APPEARANCE: cooperative ORIENTATION/CONSCIOUSNESS: Yes awake, Yes oriented to person, Yes oriented to place and Yes oriented to time HENMT: COMMON NORMALS: normocephalic and atraumatic HEAD & SCALP: normal to inspection, normocephalic and atraumatic Neck/C-Spine: COMMON NORMALS: full ROM, no lymphadenopathy, supple and no meningeal signs Chest: COMMONS NORMALS: normal inspection of the chest Resp: COMMON NORMALS: normal respiratory effort and clear to auscultation bilaterally AUSCULTATION: clear to auscultation bilaterally Cardio: COMMON NORMALS: regular rate and regular rhythm RATE: regular rate RHYTHM: regular rhythm GI: COMMON NORMALS: Normal to inspection, nondistended, normoactive bowel sounds present, Soft to palpation, non-tender, No hepatosplenomegaly present and no masses PALPATION: Yes Soft to palpation and Yes No hepatosplenomegaly present : COMMON NORMALS: Yes no CVA tenderness BLADDER/KIDNEY EXAM: Yes no CVA tenderness Back/Pelvis: COMMON NORMALS: no CVA tenderness and thoracic and lumbar spine normal to inspection Extremity: COMMON NORMALS: normal to inspection GENERAL: Yes normal exam except as noted Neuro: CANDY COMA SCALE: document GCS findings [place] coma scale eye opening: Spontaneous Candy coma scale verbal response: Orientated Candy coma scale motor response: Obey commands [place] coma scale total score: 15 COMMON NORMALS: patient oriented x3, CN's II-XII intact bilaterally, moves all extremities, no focal motor deficits, no sensory deficits noted and gait normal SENSORIUM/ORIENTATION: Yes alert, Yes oriented to person, Yes oriented to place and Yes oriented to time MENINGEAL SIGNS: Yes no meningeal signs GAIT: Yes Normal gait present MOTOR EXAM: 5/5 motor strength present throughout Skin: COMMON NORMALS: no rashes or lesions noted GENERAL SKIN EXAM: no rashes or lesions noted Course Vital Signs: Vital signs: Vital Signs Temperature 98.4 F 12/07/20 12:43 Pulse Rate 96 12/07/20 12:43 Respiratory Rate 16 12/07/20 12:43 Blood Pressure 120/79 12/07/20 12:43 Pulse Oximetry 94 12/07/20 12:43 MDM - General Adult MDM Narrative: Medical decision making narrative: Patient clinically appears in no acute distress. His vital signs are stable. He clinically does not appear dehydrated.Is normal. Patient was started on aspirin, CBC is unremarkable. Patient does have chronic thrombocytopenia. Chemistry panel shows a mildly elevated creatinine at 1.4. Looks like his baseline is around 1.0. Recommend he increase fluid intake at home until his urine is clear. He has mild nonspecific LFT elevations. Bilirubin is normal. CPK normal. Recommend follow-up with primary care in 3 to 5 days for re-evaluation. Lab Data: Labs: Lab Results 12/07/20 12/07/20 Range/Units 15:23 15:23 WBC 6.6 (4.0-10.0) 10^3/ uL RBC 5.00 (4.1-5.3) 10^6/u L Hgb 15.4 (11.7-16.6) g/dL Hct 46.5 (42.0-52.0) % MCV 93.0 (80-94) fL MCH 30.8 (28.0-34.0) pg MCHC 33.1 (30.0-36.0) g/dL RDW 14.6 (12.1-15.1) % Plt Count 124 L (130-400) 10^3/c mm MPV 10.5 H (7.4-10.4) fL Neut % (Auto) 62.9 % Lymph % (Auto) 21.5 % Sac % (Auto) 13.2 % Eos % (Auto) 0.6 % Baso % (Auto) 0.9 % Neut # (Auto) 4.14 (1.8-7.7) 10^3/u L Lymph # (Auto) 1.4 (0.8-4.8) 10^3/u L Sac # (Auto) 0.9 (0.2-0.9) 10^3/u L Eos # (Auto) 0.0 (0.0-0.8) 10^3/u L Baso # (Auto) 0.1 (0.0-0.1) 10^3/u L Nucleated RBC % (a uto) 0 % Nucleated RBCs # 0.0 /100WBC Sodium 135 L (136-145) mmol/L Potassium 4.1 (3.5-5.1) mmol/L Chloride 99 (98-107) mmol/L Carbon Dioxide 26 (22-29) mmol/L Anion Gap 14.1 (5-19) BUN 16 (6-20) mg/dL Creatinine 1.4 H (0.7-1.2) mg/dL GFR Calculation 53.0 L (90-130) mL/min Glucose 134 H (65-115) mg/dL Calculated Osmolal ity 283 L (285-295) mOsm/k g Calcium 8.9 (8.5-10.5) mg/dL Total Bilirubin 1.2 (0.15-1.2) mg/dL AST 107 H (0-40) U/L ALT 56 H (0-41) U/L Alkaline Phosphata se 96 (40-130) IU/L Creatine Kinase 52 (39-308) U/L Total Protein 7.7 (6.6-8.7) g/dL Albumin 3.8 (3.5-5.2) g/dL Globulin 3.9 (1.3-4.6) g/dL Discharge Plan Discharge Patient Disposition: Home Clinical Impression: Dehydration Condition: Stable Prescriptions: No Action venlafaxine 75 mg capsule,extended release 24hr 75 mg PO DAILY RF: 0 glipizide 5 mg tablet 5 mg PO DAILY@0700 RF: 0 spironolactone 50 mg tablet 50 mg PO DAILY RF: 0 metformin 1,000 mg tablet extended release 24hr 1,000 mg PO BID@0700,1900 RF: 0 Hold Instructions: Resume on 07/13/20. May restart this medication on 13 of July levothyroxine 150 mcg capsule 150 mcg PO DAILY RF: 0 nitroglycerin 0.4 mg tablet, sublingual 0.4 mg SUBLINGUAL Q5M PRN (Reason: chest pain) 30 Days Qty: 30 RF: 3 rosuvastatin [Crestor] 5 mg tablet 5 mg PO DAILY Qty: 90 RF: 3 lisinopril 40 mg tablet 40 mg PO DAILY RF: 0 Keppra 500 mg tablet 500 mg PO BID@0700,1900 RF: 0 Plavix 75 mg tablet 75 mg PO DAILY@0700 RF: 0 aspirin 81 mg tablet,chewable 81 mg PO DAILY@0700 RF: 0 Celebrex 100 mg capsule 100 mg PO BID@0700,1900 RF: 0 metoprolol tartrate 25 mg tablet 25 mg PO BID@0700,1900 RF: 0 Discharge Orders: Discharge ED (Routine); Ordered 12/07/20 Ordered By: Kristin Rodriguez Referrals: Dorita Flaherty FNP [Primary Care Provider] - Patient Instructions: Dehydration - Adult, Dehydration (ED) Coding Level of Care Code ED Global Transportation Manager for Chg Fwd Exam Comprehensive
[2020-12-07 15:39] LABS: Basophils # 0.1 10^3/uL (0.0-0.1); Basophils % 0.9 %; Eosinophils % 0.6 %; Hematocrit 46.5 % (42.0-52.0); Hemoglobin 15.4 g/dL (11.7-16.6); Lymphocytes # 1.4 10^3/uL (0.8-4.8); Lymphocytes % 21.5 %; Mean Corpuscular HGB Conc 33.1 g/dL (30.0-36.0); Mean Corpuscular Hemoglobin 30.8 pg (28.0-34.0); Mean Platelet Volume 10.5 fL (7.4-10.4); Monocytes # 0.9 10^3/uL (0.2-0.9); Monocytes % 13.2 %; Neutrophils # 4.14 10^3/uL (1.8-7.7); Neutrophils % 62.9 %; Nucleated Red Blood Cells % 0 %; Platelet Count 124 10^3/cmm (130-400); Red Cell Distribution Width 14.6 % (12.1-15.1); White Blood Count 6.6 10^3/uL (4.0-10.0)
[2020-12-07 15:50] LABS: Alanine Aminotransferase 56 U/L (0-41); Albumin Level 3.8 g/dL (3.5-5.2); Alkaline Phosphatase 96 IU/L (40-130); Anion Gap 14.1 (5-19); Aspartate Amino Transferase 107 U/L (0-40); Blood Urea Nitrogen 16 mg/dL (6-20); Calcium 8.9 mg/dL (8.5-10.5); Carbon Dioxide 26 mmol/L (22-29); Chloride 99 mmol/L (98-107); Creatine Phosphokinase 52 U/L (39-308); Globulin 3.9 g/dL (1.3-4.6); Glucose 134 mg/dL (65-115); Osmolality Calculated 283 mOsm/kg (285-295); Potassium 4.1 mmol/L (3.5-5.1); Sodium 135 mmol/L (136-145); Total Bilirubin 1.2 mg/dL (0.15-1.2); Total Protein 7.7 g/dL (6.6-8.7)
== END 2020-12-07 16:44 | disposition home or self-care (01) ==
PROVIDERS: Emergency Provider Physician Assistant; PCP Nurse Practitioner Family
DX: E86.0 Dehydration (principal); D69.6 Thrombocytopenia, unspecified; E78.5 Hyperlipidemia, unspecified; E03.9 Hypothyroidism, unspecified; E11.9 Type 2 diabetes mellitus without complications; I25.10 Atherosclerotic heart disease of native coronary artery without angina pectoris; E66.9 Obesity, unspecified; Z68.31 Body mass index [BMI] 31.0-31.9, adult; F17.200 Nicotine dependence, unspecified, uncomplicated; Z79.84 Long term (current) use of oral hypoglycemic drugs; Z79.02 Long term (current) use of antithrombotics/antiplatelets; Z79.82 Long term (current) use of aspirin
CPT/HCPCS: 80053; 82550; 85025; 99282

== ENCOUNTER 2020-12-11 13:17 | Outpatient (RCR) | payer MEDICAID, SELFPAY | END 2021-01-09 23:59 | disposition home or self-care (01) | LOC: CR 13:17 | PROVIDERS: PCP Nurse Practitioner Family; Referring Provider Internal Medicine Cardiovascular Disease; Visit Provider Internal Medicine Cardiovascular Disease | DX: Z95.5 Presence of coronary angioplasty implant and graft (principal) | CPT/HCPCS: 93798 ==

== ENCOUNTER 2020-12-21 09:34 | Outpatient (CLI) | payer MEDICAID, SELFPAY ==
[2020-12-21 09:45] VITALS: BP 120/78; PULSE 57; RESP 18; TEMP 36.6; O2SAT 97; BMI 31.5
[2020-12-21 10:15] VITALS: BP 123/79; PULSE 51; RESP 18; TEMP 36.4; O2SAT 95
[2020-12-21 11:15] VITALS: BP 125/85; PULSE 64; RESP 18; TEMP 36.5; O2SAT 97
[2020-12-21 11:26] VITALS: BP 125/85; PULSE 64; RESP 18; TEMP 36.5; O2SAT 97
== END 2020-12-21 09:35 | disposition home or self-care (01) ==
LOC: OPS 09:35
PROVIDERS: PCP Nurse Practitioner Family; Visit Provider Nurse Practitioner
DX: U07.1 COVID-19 (principal)
CPT/HCPCS: 96365

== ENCOUNTER → 2021-01-04 09:36 | Outpatient (BNVA) | payer MEDICAID, SELFPAY | PROVIDERS: PCP Nurse Practitioner Family; Visit Provider Urology | DX: N52.9 Male erectile dysfunction, unspecified (principal); F52.32 Male orgasmic disorder | CPT/HCPCS: 81003 ==

== ENCOUNTER → 2021-02-26 08:10 | Outpatient (BNVA) | payer MEDICAID, SELFPAY | PROVIDERS: PCP Nurse Practitioner Family; Visit Provider Specialist | DX: G40.309 Generalized idiopathic epilepsy and epileptic syndromes, not intractable, without status epilepticus (principal); K76.0 Fatty (change of) liver, not elsewhere classified; E66.9 Obesity, unspecified; Z68.30 Body mass index [BMI] 30.0-30.9, adult; F17.200 Nicotine dependence, unspecified, uncomplicated | CPT/HCPCS: 99213; 99214 ==

== ENCOUNTER → 2021-05-30 11:15 | Outpatient (BNVA) | payer MEDICAID, SELFPAY | PROVIDERS: PCP Nurse Practitioner Family; Visit Provider Internal Medicine Cardiovascular Disease | DX: E78.5 Hyperlipidemia, unspecified (principal) | CPT/HCPCS: 80061; 80076 ==

== ENCOUNTER → 2021-06-29 08:55 | Outpatient (BNVA) | payer MEDICAID, SELFPAY | PROVIDERS: PCP Nurse Practitioner Family; Visit Provider Internal Medicine Cardiovascular Disease | DX: K74.60 Unspecified cirrhosis of liver (principal); K76.0 Fatty (change of) liver, not elsewhere classified; R18.8 Other ascites; E78.5 Hyperlipidemia, unspecified | CPT/HCPCS: 80061; 80076 ==

== ENCOUNTER 2021-07-06 09:27 | Outpatient (CLI) | payer MEDICAID, SELFPAY ==
--- NOTE | 2021-07-06 15:45 | USCV_ITS ---
ChicoAlonso Age: 56 Gender: M : 1965 Exam Date: 07/06/2021 09:42 Ordering Phys: Sujata Flores MD ([email or web address] [email or web address]) Technologist: YONATAN Exam Location: [facility] [place] Indication: CCA DISEASE Risk Factors: Previous Vascular Surgery: Right Brachial BP: / Left Brachial BP: / Right Left Velocity (cm/s) Spectral Plaque Velocity (cm/s) Spectral Plaque Syst/Diast Broadening Syst/Diast Broadening 91.50/ 15.40 Prox CCA 65.10 / 11.20 52.60/ 10.50 Mid CCA 57.80 / 10.50 46.00/ 13.80 Distal CCA 38.80 / 5.90 26.70/ 8.00 Prox ICA 32.10 / 10.30 35.50/ 13.80 Mid ICA 42.40 / 14.30 33.30/ 12.40 Distal ICA 38.40 / 14.30 45.40 ECA 71.60 0.39 ICA/CCA 0.65 Antegrade Vertebral Antegrade 23.00/ 6.90 cm/s 14.90/ 10.90 cm/s Tri Subclavian Tri 56.10 64.80 FINDINGS Minimal plaques at the bifurcations bilaterally. Antegrade flow in the vertebral arteries bilaterally. Normal velocity ratios. Normal Doppler flow velocities. CONCLUSIONS Minimal plaques at the bifurcations bilaterally suggesting less than 50% stenosis. No unstable plaques or lesions. Dr Sujata Flores MD [facility] (Electronically Signed) Final Date: 06 July 2021 11:48 S
== END 2021-07-06 09:28 | disposition home or self-care (01) ==
LOC: RAD 09:29
PROVIDERS: PCP Nurse Practitioner Family; Visit Provider Internal Medicine Cardiovascular Disease
DX: I77.9 Disorder of arteries and arterioles, unspecified (principal); R26.81 Unsteadiness on feet; I65.23 Occlusion and stenosis of bilateral carotid arteries
CPT/HCPCS: 93880

== ENCOUNTER 2021-09-28 09:15 | Outpatient (CLI) | payer MEDICAID, SELFPAY ==
--- NOTE | 2021-09-28 09:25 | ECG_ITS ---
[facility] Test Date: 2021-09-28 Pat Name: Alonso Golden Department: Room: Gender: Male Loan Secretary: Antonia Lowe : 1965 Requested By: Sujata Flores Order Number: [id number] Mariaa MD: Lou Carpenter M.D. Interpretive Statements NAME OF STUDY: LEXISCAN SESTAMIBI STRESS TEST INDICATION: Chest Pain PROCEDURE: At the baseline blood pressure was 117/76 mm Hg with a heart rate of 66 beats/min.EKG showed sinus rhythm with a rate of 69 bpm. Poor anterior R wave progression. Nonspecific T wave changes. Lexiscan was infused over a period of 20 seconds. A total of 0.4 milligrams of Lexiscan was infused. The stress phase was continued for a total of 5 minutes. Heart rate at the end of the stress phase was 84 bpm with a blood pressure of 115/78 mmHg. The EKG at the peak infusion revealed no significant changes. Sestamibi was injected 20 seconds after the Lexiscan infusion. Blood pressure at the end of the recovery phase was 116/72 mm Hg with a heart rate of 79 beats per minute. CONCLUSION: 1. No significant EKG changes with the LexiScan infusion. 2. No LexiScan induced chest pain. 3. Normal blood pressure and heart rate response 4. Sestamibi/sestamibi perfusion scan pending; see separate report. Electronically Signed On 10-13-2021 12:32:10 CDT by Lou Carpenter M.D. [id number]
--- NOTE | 2021-09-28 09:26 | NMCV_ITS ---
NM kayleen perf SPECT r/s* [id number] Alonso Golden Age: 56 Gender: M : 1965 Exam Date: 09/28/2021 10:31 Ordering Phys: Sujata Flores MD ([email or web address]) Technologist: LEONEL Acosta Exam Location: [facility] Indications: CHEST PAIN STRESS TEST Please see separate stress test report in [facility] for full findings IMAGE PROTOCOL Rest/Stress 1 Lexiscan Day Radiopharmaceutical Dose (mCi) Administration Site Administered by Rest: Tc-99m 10.7 IV LEONEL Acosta Sestamibi Stress:Tc-99m 33.0 IV LEONEL Acosta Sestamibi Rest: 28-Sep-2021 60 Discovery 630 Stress: 28-Sep-2021 30 Discovery 630 0.4mg Lexiscan. Images obtained in supine and prone position. SPECT RESULTS Technical Quality: Excellent Raw Data Analysis: Normal Image Corrections: No attenuation or motion correction applied Summed Stress Score: 0 Summed Rest Score: 0 Summed Difference Score: 0 PERFUSION FINDINGS Fairly uniform myocardial tracer uptake. No significant perfusion abnormalities. FUNCTIONAL RESULTS (calculated via Gated SPECT) Stress Image LV EF (%): 78 Stress EDV (mL):83 TID: 1.02 Stress ESV (mL):18 FUNCTIONAL FINDINGS: Segmental wall motion analysis revealing no gross wall motion normalities IMPRESSIONS 1. Unremarkable myocardial perfusion imaging 2. Normal LV ejection fraction of 78%. 3. LV wall motion analysis revealing no gross wall motion abnormalities. 4. Normal LV volume Low probability for coronary ischemia, based on the above findings Dr Sujata Flores MD FAC (Electronically Signed) Final Date: 28 Sep 2021 13:25 S
[2021-09-28] MEDS: regadenoson 0.4 Mg/5 ml Syringe IVP (10:56)
[2021-09-28 11:13] VITALS: BP 116/72; PULSE 86
== END 2021-09-28 09:16 | disposition home or self-care (01) ==
LOC: CDL 09:19
PROVIDERS: PCP Nurse Practitioner Family; Visit Provider Internal Medicine Cardiovascular Disease
DX: R07.9 Chest pain, unspecified (principal); I25.118 Atherosclerotic heart disease of native coronary artery with other forms of angina pectoris; R06.02 Shortness of breath
CPT/HCPCS: 78452; 93017; A9500; J2785

== ENCOUNTER 2021-11-16 23:19 | Emergency (ER) | payer MEDICAID, SELFPAY ==
[2021-11-16 23:48] VITALS: BP 107/72; PULSE 70; RESP 15; TEMP 36.7; O2SAT 95; BMI 31.5
[2021-11-17 01:22] VITALS: BP 101/67; PULSE 67; RESP 16; TEMP 36.8; O2SAT 96
[2021-11-17] MEDS: sodium chloride 0.9% 1,000 ML 999 ML IV ×2 (01:41→02:41)
[2021-11-17] MEDS: ondansetron 2 mg/ML SDV 2 mL 4 MG IVP (01:41)
[2021-11-17 01:50] LABS: Basophils # 0.1 10^3/uL (0.0-0.1); Eosinophils # 0.4 10^3/uL (0.0-0.8); Eosinophils % 4.4 %; Hematocrit 42.7 % (42.0-52.0); Hemoglobin 14.4 g/dL (11.7-16.6); Lymphocytes # 1.8 10^3/uL (0.8-4.8); Lymphocytes % 18.7 %; Mean Corpuscular HGB Conc 33.7 g/dL (30.0-36.0); Mean Corpuscular Hemoglobin 31.3 pg (28.0-34.0); Mean Corpuscular Volume 92.8 fl (80-94); Mean Platelet Volume 10.5 fL (7.4-10.4); Monocytes # 0.6 10^3/uL (0.2-0.9); Monocytes % 6.6 %; Neutrophils # 6.67 10^3/uL (1.8-7.7); Neutrophils % 68.6 %; Nucleated Red Blood Cells % 0 %; Platelet Count 126 10^3/cmm (130-400); Red Cell Distribution Width 13.2 % (12.1-15.1); White Blood Count 9.7 10^3/uL (4.0-10.0)
--- NOTE | 2021-11-17 02:06 | W.ED.GENADLT ---
HPI - General Adult General: Chief complaint: General Medical Stated complaint: N/V/Heat exhaustion Time Seen by Provider: 11/17/21 01:31 Source: patient History of Present Illness: 56-year-old gentleman who believes he got too hot on . He notes that he had walked to the grocery store, and sit outside in the heat. Since that time, he has felt generally weak and nauseated. He threw up 3 times earlier today. He denies significant chest pain or shortness of breath. He states he has a history of liver cirrhosis. Onset (ago): hour(s) Radiation: non-radiation Quality: other Pain Consistency: other Relieving factors: none Exacerbating factors: none Associated symptoms: Reports decreased appetite, headache(s), nausea and vomiting; Deny chest pain, confusion, cough, dyspnea, fevers/chills or short of breath Review of Systems Const: Denies: fever(s) Eyes: Denies: change in vision ENMT: Denies: throat pain Card: Denies: chest pain Resp: Denies: dyspnea GI: Reports: nausea and vomiting Neuro: Reports: headache(s); Denies: confusion PFSH ED PFSH: Medical History Atypical chest pain Benign essential hypertension with target blood pressure below 140/90 Chronic low back pain Coronary artery disease Dyslipidemia Epilepsy Glucose intolerance Hypothyroidism Obesity Smoker Type 2 diabetes mellitus Surgical History H/O umbilical hernia repair History of appendectomy Family History Father , at age 74 Family history of premature coronary artery disease Had a myocardial infarction in his 40s. Diabetes CAD (coronary artery disease) Chronic kidney disease (CKD) Stroke Brother Family history of premature coronary artery disease CAD (coronary artery disease) Had [place] in the 50s Diabetes Stroke Grandmother CAD (coronary artery disease) Diabetes Grandfather CAD (coronary artery disease) Mother , at age 84 CAD (coronary artery disease) Cancer Diabetes COVID-19 Family/Other Lung disease Denies family history of Clotting disorder Dementia Suicide Anesthesia complication Bleeding disorder Social History Alcohol intake: current Alcohol intake frequency: holidays/special occasions only Household members: spouse Housing: House Marital status: Current occupational status: disabled History of recent travel: No Physical Exam Const: COMMON NORMALS: no acute distress GENERAL APPEARANCE: cooperative; not in distress HENMT: COMMON NORMALS: normocephalic, atraumatic and Normal external nose present HEAD & SCALP: normocephalic and atraumatic FACE & SINUS: normal facial exam and face symmetric NOSE: Normal external nose present TEETH & GINGIVA: Yes poor dentition Eye: COMMON NORMALS: Equal, round and reactive pupils present and EOMs intact bilaterally PUPIL: Yes Equal, round and reactive pupils present Chest: COMMONS NORMALS: normal inspection of the chest Resp: COMMON NORMALS: normal respiratory effort, No use of accessory muscles and clear to auscultation bilaterally AUSCULTATION: clear to auscultation bilaterally Cardio: COMMON NORMALS: regular rate and regular rhythm RATE: regular rate RHYTHM: regular rhythm GI: COMMON NORMALS: Normal to inspection, nondistended, normoactive bowel sounds present, Soft to palpation and non-tender PALPATION: Yes Soft to palpation Extremity: COMMON NORMALS: no pedal edema Course Vital Signs: Vital signs: Vital Signs Temperature 98.3 F 11/17/21 01:22 Pulse Rate 60 11/17/21 04:10 Respiratory Rate 16 11/17/21 04:10 Blood Pressure 114/76 11/17/21 04:10 Pulse Oximetry 97 11/17/21 04:10 [facility] - General Adult Medical Decision Making 56-year-old male presenting with generalized weakness and vomiting. His creatinine is elevated at 1.7, and this is above his baseline. His platelet count is 126. His liver enzymes are essentially normal. He is given 2 L of fluid here and Zofran with improvement in his symptoms. He does not complain of chest discomfort. He is concerned about his liver, and his lab results are explained to him. Lab Data : 11/17/21 01:43 11/17/21 01:43 Laboratory Results WBC 9.7 10^3/uL (4.0-10.0) 11/17/21 01:43 RBC 4.60 10^6/uL (4.1-5.3) 11/17/21 01:43 Hgb 14.4 g/dL (11.7-16.6) 11/17/21 01:43 Hct 42.7 % (42.0-52.0) 11/17/21 01:43 MCV 92.8 fl (80-94) 11/17/21 01:43 MCH 31.3 pg (28.0-34.0) 11/17/21 01:43 MCHC 33.7 g/dL (30.0-36.0) 11/17/21 01:43 RDW 13.2 % (12.1-15.1) 11/17/21 01:43 Plt Count 126 10^3/cmm (130-400) L 11/17/21 01:43 MPV 10.5 fL (7.4-10.4) H 11/17/21 01:43 Neut % (Auto) 68.6 % 11/17/21 01:43 Lymph % (Auto) 18.7 % 11/17/21 01:43 [place] % (Auto) 6.6 % 11/17/21 01:43 Eos % (Auto) 4.4 % 11/17/21 01:43 Baso % (Auto) 1.0 % 11/17/21 01:43 Neut # (Auto) 6.67 10^3/uL (1.8-7.7) 11/17/21 01:43 Lymph # (Auto) 1.8 10^3/uL (0.8-4.8) 11/17/21 01:43 [place] # (Auto) 0.6 10^3/uL (0.2-0.9) 11/17/21 01:43 Eos # (Auto) 0.4 10^3/uL (0.0-0.8) 11/17/21 01:43 Baso # (Auto) 0.1 10^3/uL (0.0-0.1) 11/17/21 01:43 Nucleated RBC % (auto) 0 % 11/17/21 01:43 Nucleated RBCs # 0.0 /100WBC 11/17/21 01:43 Sodium 132 mmol/L (136-145) L 11/17/21 01:43 Potassium 4.2 mmol/L (3.5-5.1) 11/17/21 01:43 Chloride 97 mmol/L (98-107) L 11/17/21 01:43 Carbon Dioxide 24 mmol/L (22-29) 11/17/21 01:43 Anion Gap 15.2 (5-19) 11/17/21 01:43 BUN 21 mg/dL (6-20) H 11/17/21 01:43 Creatinine 1.7 mg/dL (0.7-1.2) H 11/17/21 01:43 GFR Calculation 42.2 mL/min (90-130) L 11/17/21 01:43 Glucose 84 mg/dL (65-115) 11/17/21 01:43 Calculated Osmolality 276 mOsm/kg (285-295) L 11/17/21 01:43 Calcium 10.3 mg/dL (8.5-10.5) 11/17/21 01:43 Magnesium 1.2 mg/dL (1.7-2.3) L 11/17/21 01:43 Total Bilirubin 1.1 mg/dL (0.15-1.2) 11/17/21 01:43 AST 45 U/L (0-40) H 11/17/21 01:43 ALT 31 U/L (0-41) 11/17/21 01:43 Alkaline Phosphatase 84 IU/L (40-130) 11/17/21 01:43 Creatine Kinase 71 U/L (39-308) 11/17/21 01:43 Total Protein 8.2 g/dL (6.6-8.7) 11/17/21 01:43 Albumin 4.2 g/dL (3.5-5.2) 11/17/21 01:43 Globulin 4.0 g/dL (1.3-4.6) 11/17/21 01:43 Urine Color Yellow (Yellow) 11/17/21 02:07 Urine Appearance Clear (CLEAR) 11/17/21 02:07 Urine pH 5 (5-7) 11/17/21 02:07 Ur Specific [place] 1.015 (1.005-1.030) 11/17/21 02:07 Urine Protein Trace (Negative) 11/17/21 02:07 Urine Glucose (UA) Norm (Normal) 11/17/21 02:07 Urine Ketones Negative (Negative) 11/17/21 02:07 Urine Blood Neg (Negative) 11/17/21 02:07 Urine Nitrate Negative (Negative) 11/17/21 02:07 Urine Bilirubin Neg (Negative) 11/17/21 02:07 Urine Urobilinogen Norm mg/dL (Negative) 11/17/21 02:07 Ur Leukocyte Esterase Negative (Negative) 11/17/21 02:07 Urine RBC 0-4 /hpf (0-2) H 11/17/21 02:07 Urine WBC 0-4 /hpf (0-5) H 11/17/21 02:07 Ur Squamous Epith Cells 0-4 /hpf (0-5) H 11/17/21 02:07 Amorphous Sediment Not Reportable 11/17/21 02:07 Urine Bacteria None /hpf (NONE) 11/17/21 02:07 Urine Mucus Trace /hpf 11/17/21 02:07 Discharge Plan Discharge Patient Disposition: Home Clinical Impression: Acute kidney injury, Acute dehydration Condition: Stable Prescriptions: No Action venlafaxine 75 mg capsule,extended release 24hr 75 mg PO DAILY 0RF glipizide 5 mg tablet 5 mg PO DAILY@0700 0RF spironolactone 50 mg tablet 50 mg PO DAILY 0RF metformin 1,000 mg tablet extended release 24hr 1,000 mg PO BID@0700,1900 0RF Hold Instructions: Resume on 07/13/20. May restart this medication on 13 of July levothyroxine 150 mcg capsule 250 mcg PO DAILY 0RF baclofen 10 mg tablet 10 mg PO BID PRN0RF Keppra 500 mg tablet 500 mg PO BID@0700,1900 Qty: 180 3RF Rx Instructions: Generic can be filled allopurinol 100 mg tablet 100 mg PO DAILY 0RF nitroglycerin 0.4 mg tablet, sublingual 0.4 mg SUBLINGUAL Q5M PRN (Reason: chest pain) 30 Days Qty: 30 3RF Rx Instructions: until response; do not exceed 3 doses per episode Plavix 75 mg tablet 75 mg PO DAILY@0700 Qty: 90 3RF aspirin 81 mg tablet,chewable 81 mg PO DAILY@0700 Qty: 90 3RF fenofibrate 54 mg tablet 54 mg PO DAILY Qty: 90 3RF rosuvastatin 10 mg tablet 10 mg PO DAILY Qty: 100 3RF metoprolol tartrate 25 mg tablet 25 mg PO BID@0700,1900 Qty: 180 2RF lisinopril 40 mg tablet 40 mg PO DAILY 0RF Discharge Orders: Discharge ED (Routine); Ordered 11/17/21 Ordered By: Khadar Beyer Referrals: Dorita Flaherty FNP [Primary Care Provider] - Patient Instructions: Dehydration in Children (ED), Dehydration (ED), Opioid Safety Coding Level of Care Code ED Map Clerk for Chg Fwd Exam Comprehensive
[2021-11-17 02:08] LABS: Alanine Aminotransferase 31 U/L (0-41); Albumin Level 4.2 g/dL (3.5-5.2); Alkaline Phosphatase 84 IU/L (40-130); Anion Gap 15.2 (5-19); Aspartate Amino Transferase 45 U/L (0-40); Blood Urea Nitrogen 21 mg/dL (6-20); Calcium 10.3 mg/dL (8.5-10.5); Carbon Dioxide 24 mmol/L (22-29); Chloride 97 mmol/L (98-107); Creatine Phosphokinase 71 U/L (39-308); Glomerular Filtration Rate 42.2 mL/min (90-130); Glucose 84 mg/dL (65-115); Magnesium 1.2 mg/dL (1.7-2.3); Osmolality Calculated 276 mOsm/kg (285-295); Potassium 4.2 mmol/L (3.5-5.1); Sodium 132 mmol/L (136-145); Total Bilirubin 1.1 mg/dL (0.15-1.2); Total Protein 8.2 g/dL (6.6-8.7)
[2021-11-17 02:20] LABS: Bilirubin Urine Neg (Negative); Blood Urine Neg (Negative); Glucose Urine UA Norm (Normal); Ketones Urine Negative (Negative); Nitrate Urine Negative (Negative); Protein Urine Trace (Negative); Specific Gravity, Urine 1.015 (1.005-1.030); Urine Appearance Clear (CLEAR); Urine Color Yellow (Yellow); pH Urine 5 (5-7)
[2021-11-17 02:21] LABS: Add Urine Microscopic? YES; Leukocyte Esterase Urine Negative (Negative); Urobilinogen Urine Norm (Negative)
[2021-11-17 02:22] LABS: Add Urine Culture? No; Mucus Urine TRACE /hpf; RBC Urine 0-4 /hpf (0-2); Squamous Epithelial Cell Urine 0-4 /hpf (0-5); WBC Urine 0-4 /hpf (0-5)
[2021-11-17 02:45] VITALS: BP 95/72; PULSE 61; RESP 17; O2SAT 99
[2021-11-17 03:00] VITALS: BP 95/72; PULSE 60; O2SAT 100
[2021-11-17 03:53] VITALS: RESP 16
[2021-11-17] MEDS: morphine 4 mg/mL SDV 1 mL IVP (03:53)
[2021-11-17 04:00] VITALS: BP 114/76; PULSE 60; RESP 16; O2SAT 97
[2021-11-17 04:10] VITALS: BP 114/76; PULSE 60; RESP 16; O2SAT 97
== END 2021-11-17 04:11 | disposition home or self-care (01) ==
PROVIDERS: Emergency Provider Emergency Medicine; PCP Nurse Practitioner Family
DX: N17.9 Acute kidney failure, unspecified (principal); E86.0 Dehydration; E03.9 Hypothyroidism, unspecified; E11.9 Type 2 diabetes mellitus without complications; I25.10 Atherosclerotic heart disease of native coronary artery without angina pectoris; I10 Essential (primary) hypertension
CPT/HCPCS: 80053; 81001; 82550; 83735; 85025; 96361; 96374; 96375; 99284; J2270; J2405; J7030

== ENCOUNTER 2022-01-29 17:18 | Emergency (ER) | payer MEDICAID, SELFPAY ==
[2022-01-29 17:22] VITALS: BP 113/70; PULSE 79; RESP 18; O2SAT 92; BMI 31.5
--- NOTE | 2022-01-29 17:24 | ECG_ITS ---
[facility] Test Date: 2022-01-29 Pat Name: Alonso Golden Department: Room: Gender: Male Nurse Staff [facility]: : 1965 Requested By: Mendel Pierson Order Number: [id number] Mariaa MD: Sujata Flores M.D. Measurements Intervals Omar Rate: 81 P: 25 CA: 156 QRS: -23 QRSD: 77 T: 66 QT: 424 QTc: 493 Interpretive Statements SINUS RHYTHM BORDERLINE LEFT AXIS DEVIATION [QRS AXIS < -20] NONSPECIFIC T-WAVE ABNORMALITY PROLONGED QT INTERVAL INTERPRETATION BASED ON A DEFAULT AGE OF 40 YEARS Compared to ECG 11/28/2020 22:45:39 Prolonged QT interval now present T-wave abnormality still present Electronically Signed On 01-29-2022 20:46:02 CDT by Sujata Flores M.D. [id number]
--- NOTE | 2022-01-29 17:26 | XRR_ITS ---
PROCEDURE INFORMATION: Exam: XR Chest Exam date and time: 01/29/2022 5:31 PM Age: 57 years old Clinical indication: Chest wall pain; Additional info: Chest pain TECHNIQUE: Imaging protocol: Radiologic exam of the chest. Views: 1 view. COMPARISON: CR XR chest 1V portable [id number] 11/28/2020 8:48 PM FINDINGS: Lungs: Unremarkable. No consolidation. Pleural spaces: Unremarkable. No pleural effusion. No pneumothorax. Heart/Mediastinum: Unremarkable. No cardiomegaly. Bones/joints: Unremarkable. XR/XR chest 1V portable [id number] IMPRESSION: No acute findings.
[2022-01-29 17:47] LABS: Basophils # 0.2 10^3/uL (0.0-0.1); Basophils % 1.7 %; Eosinophils # 0.3 10^3/uL (0.0-0.8); Eosinophils % 3.3 %; Hematocrit 42.3 % (42.0-52.0); Hemoglobin 14.4 g/dL (11.7-16.6); Lymphocytes # 1.1 10^3/uL (0.8-4.8); Lymphocytes % 12.6 %; Mean Corpuscular Hemoglobin 31.6 pg (28.0-34.0); Mean Platelet Volume 10.6 fL (7.4-10.4); Monocytes # 0.6 10^3/uL (0.2-0.9); Neutrophils # 6.59 10^3/uL (1.8-7.7); Neutrophils % 74.5 %; Nucleated Red Blood Cells % 0 %; Platelet Count 138 10^3/cmm (130-400); Red Blood Count 4.55 10^6/uL (4.1-5.3); White Blood Count 8.8 10^3/uL (4.0-10.0)
--- NOTE | 2022-01-29 17:51 | W.ED.CHESTPA ---
Documented by User: Mendel Bush DO 01/30/22 06:58 HPI - Chest Pain General: Chief Complaint: Chest Pain Stated Complaint: cp Time Seen by Provider: 01/29/22 17:25 Source: patient Mode of arrival: ambulatory History of Present Illness: 57-year-old male presents emergency room he had some chest discomfort this afternoon. He was out shopping at [employer] to have chest comfort. He has a history of coronary disease previously had 1 stent placed he took nitro with some relief she also had Tylenol. He is diabetic and is a smoker. He is cannot currently have any chest pain at this time. MD complaint: chest heaviness Pertinent past history: coronary artery disease Onset (ago): hour(s) Timing of current episode: episodic Prior episodes: Yes Onset: during rest Pain location: substernal and left chest Pain radiation: none Quality: tightness and heaviness Relieving factors: nitroglycerin Exacerbating factors: exertion Associated symptoms: Deny abdominal pain, diaphoresis, dyspnea, fever(s), leg edema, nausea, palpitations, sense of impending doom, syncope or vomiting Treatment prior to arrival: aspirin and nitroglycerin Review of Systems Const: Denies: fever(s), chills, fatigue, malaise or diaphoresis ENMT: Denies: throat pain, ear or mastoid pain, nasal discharge or nasal congestion Card: Reports: chest pain; Denies: palpitations or syncope Resp: Denies: dyspnea GI: Denies: abdominal pain, nausea or vomiting : Denies: flank pain, dysuria, urinary frequency or urinary urgency Skin/Breast: Denies: rash or pruritus PFSH ED PFSH: Medical History Atypical chest pain Benign essential hypertension with target blood pressure below 140/90 Chronic low back pain Coronary artery disease Dyslipidemia Epilepsy Glucose intolerance Hypothyroidism Obesity Smoker Type 2 diabetes mellitus Surgical History H/O umbilical hernia repair History of appendectomy Family History Father , at age 74 Family history of premature coronary artery disease Had a myocardial infarction in his 40s. Diabetes CAD (coronary artery disease) Chronic kidney disease (CKD) Stroke Brother Family history of premature coronary artery disease CAD (coronary artery disease) Had [place] in the 50s Diabetes Stroke Grandmother CAD (coronary artery disease) Diabetes Grandfather CAD (coronary artery disease) Mother , at age 84 CAD (coronary artery disease) Cancer Diabetes COVID-19 Family/Other Lung disease Denies family history of Clotting disorder Dementia Suicide Anesthesia complication Bleeding disorder Social History Alcohol intake: current Alcohol intake frequency: holidays/special occasions only Household members: spouse Housing: House Marital status: Current occupational status: disabled History of recent travel: No Physical Exam Const: GENERAL APPEARANCE: cooperative and comfortable ORIENTATION/CONSCIOUSNESS: Yes awake, Yes oriented to person, Yes oriented to place and Yes oriented to time HENMT: COMMON NORMALS: normocephalic, atraumatic and hearing grossly normal bilaterally HEAD & SCALP: normocephalic and atraumatic Resp: COMMON NORMALS: normal respiratory effort, No retractions, No use of accessory muscles and clear to auscultation bilaterally AUSCULTATION: clear to auscultation bilaterally Cardio: COMMON NORMALS: regular rate, regular rhythm and No murmurs present (Cardio) RATE: regular rate RHYTHM: regular rhythm GI: COMMON NORMALS: Soft to palpation and No hepatosplenomegaly present AUSCULTATION: Yes normoactive bowel sounds PALPATION: Yes Soft to palpation, No Tenderness to palpation present (GI), No Guarding due to palpation present (GI) and Yes No hepatosplenomegaly present Extremity: COMMON NORMALS: normal to inspection, capillary refill normal, no clubbing, cyanosis or edema, no calf tenderness and no pedal edema Neuro: SENSORIUM/ORIENTATION: Yes oriented to person, Yes oriented to place and Yes oriented to time Skin: COMMON NORMALS: no rashes or lesions noted GENERAL SKIN EXAM: no rashes or lesions noted Course Vital Signs: Vital signs: Vital Signs Pulse Rate 71 01/29/22 21:16 Respiratory Rate 16 01/29/22 21:16 Blood Pressure 149/109 01/29/22 21:16 Pulse Oximetry 97 01/29/22 21:16 Oxygen Delivery Me thod 01/29/22 17:22 MDM - Chest Pain Medical Decision Making Initial labs and EKG reviewed, nothing acute. Care signed out to Dr. Valenzuela at change of shift. See final notes for diagnosis and disposition. Patient care assumed from Dr. Neely. Patient was examined and agree with previous documentation. Patient symptoms related to his heat exposure. Patient with 2 negative EKGs and 2 negative troponins. Patient symptoms likely related to some mild heat exhaustion dehydration. Recommended that he be careful over the next couple days while heat indexes are still high. Patient stable and discharged home Medical Records I reviewed the patient's medical records. Lab Data I reviewed the patient's lab results. : 01/29/22 17:35 01/29/22 17:35 Radiology Impressions Chest X-Ray 01/29/22 17:26 IMPRESSION: No acute findings. Laboratory Results WBC 8.8 10^3/uL (4.0-10.0) 01/29/22 17:35 RBC 4.55 10^6/uL (4.1-5.3) 01/29/22 17:35 Hgb 14.4 g/dL (11.7-16.6) 01/29/22 17:35 Hct 42.3 % (42.0-52.0) 01/29/22 17:35 MCV 93.0 fl (80-94) 01/29/22 17:35 MCH 31.6 pg (28.0-34.0) 01/29/22 17:35 MCHC 34.0 g/dL (30.0-36.0) 01/29/22 17:35 RDW 14.0 % (12.1-15.1) 01/29/22 17:35 Plt Count 138 10^3/cmm (130-400) 01/29/22 17:35 MPV 10.6 fL (7.4-10.4) H 01/29/22 17:35 Neut % (Auto) 74.5 % 01/29/22 17:35 Lymph % (Auto) 12.6 % 01/29/22 17:35 [place] % (Auto) 7.0 % 01/29/22 17:35 Eos % (Auto) 3.3 % 01/29/22 17:35 Baso % (Auto) 1.7 % 01/29/22 17:35 Neut # (Auto) 6.59 10^3/uL (1.8-7.7) 01/29/22 17:35 Lymph # (Auto) 1.1 10^3/uL (0.8-4.8) 01/29/22 17:35 [place] # (Auto) 0.6 10^3/uL (0.2-0.9) 01/29/22 17:35 Eos # (Auto) 0.3 10^3/uL (0.0-0.8) 01/29/22 17:35 Baso # (Auto) 0.2 10^3/uL (0.0-0.1) H 01/29/22 17:35 Nucleated RBC % (auto) 0 % 01/29/22 17:35 Nucleated RBCs # 0.0 /100WBC 01/29/22 17:35 Sodium 138 mmol/L (136-145) 01/29/22 17:35 Potassium 3.8 mmol/L (3.5-5.1) 01/29/22 17:35 Chloride 101 mmol/L (98-107) 01/29/22 17:35 Carbon Dioxide 26 mmol/L (22-29) 01/29/22 17:35 Anion Gap 14.8 (5-19) 01/29/22 17:35 BUN 15 mg/dL (6-20) 01/29/22 17:35 Creatinine 1.5 mg/dL (0.7-1.2) H 01/29/22 17:35 GFR Calculation 48.6 mL/min (90-130) L 01/29/22 17:35 Glucose 126 mg/dL (65-115) H 01/29/22 17:35 Calculated Osmolality 288 mOsm/kg (285-295) 01/29/22 17:35 Calcium 9.3 mg/dL (8.5-10.5) 01/29/22 17:35 Total Bilirubin 1.6 mg/dL (0.15-1.2) H 01/29/22 17:35 AST 40 U/L (0-40) 01/29/22 17:35 ALT 23 U/L (0-41) 01/29/22 17:35 Alkaline Phosphatase 106 U/L (40-130) 01/29/22 17:35 Troponin T Baseline 19 ng/L (0-15) H 01/29/22 17:35 Troponin T 120 Minute 17.75 ng/L (0-15) H 01/29/22 20:24 Delta Troponin T -1.25 ABS# (0-10) L 01/29/22 20:24 Total Protein 7.6 g/dL (6.6-8.7) 01/29/22 17:35 Albumin 4.0 g/dL (3.5-5.2) 01/29/22 17:35 Globulin 3.6 g/dL (1.3-4.6) 01/29/22 17:35 Urine Color Yellow (Yellow) 01/29/22 20:32 Urine Appearance Clear (CLEAR) 01/29/22 20:32 Urine pH 5 (5-7) 01/29/22 20:32 Ur Specific [place] 1.020 (1.005-1.030) 01/29/22 20:32 Urine Protein 1+ (Negative) H 01/29/22 20:32 Urine Glucose (UA) Norm (Normal) 01/29/22 20:32 Urine Ketones 1+ (Negative) H 01/29/22 20:32 Urine Blood Neg (Negative) 01/29/22 20:32 Urine Nitrate Negative (Negative) 01/29/22 20:32 Urine Bilirubin 1+ (Negative) H 01/29/22 20:32 Urine Urobilinogen 1 mg/dL (Negative) H 01/29/22 20:32 Ur Leukocyte Esterase Trace (Negative) H 01/29/22 20:32 Urine RBC None /hpf (0-2) 01/29/22 20:32 Urine WBC 0-4 /hpf (0-5) H 01/29/22 20:32 Ur Squamous Epith Cells 0-4 /hpf (0-5) H 01/29/22 20:32 Amorphous Sediment 1+ /hpf 01/29/22 20:32 Urine Bacteria None /hpf (NONE) 01/29/22 20:32 Urine Mucus 1+ /hpf 01/29/22 20:32 Discharge Plan Discharge Patient Disposition: Home Clinical Impression: Dehydration symptoms, Chest discomfort Heat effect Qualifiers: Encounter type: initial encounter Qualified Code(s): T67.9XXA - Effect of heat and light, unspecified, initial encounter Condition: Stable Prescriptions: No Action venlafaxine 75 mg capsule,extended release 24hr 75 mg PO DAILY glipizide 5 mg tablet 5 mg PO DAILY@0700 spironolactone 50 mg tablet 50 mg PO DAILY metformin 1,000 mg tablet extended release 24hr 1,000 mg PO BID@0700,1900 Hold Instructions: Resume on 07/13/20. May restart this medication on 13 of July levothyroxine 150 mcg capsule 250 mcg PO DAILY baclofen 10 mg tablet 10 mg PO BID PRN Keppra 500 mg tablet 500 mg PO BID@0700,1900 Qty: 180 3RF Rx Instructions: Generic can be filled allopurinol 100 mg tablet 100 mg PO DAILY nitroglycerin 0.4 mg tablet, sublingual 0.4 mg SUBLINGUAL Q5M PRN (Reason: chest pain) 30 Days Qty: 30 3RF Rx Instructions: until response; do not exceed 3 doses per episode Plavix 75 mg tablet 75 mg PO DAILY@0700 Qty: 90 3RF aspirin 81 mg tablet,chewable 81 mg PO DAILY@0700 Qty: 90 3RF fenofibrate 54 mg tablet 54 mg PO DAILY Qty: 90 3RF rosuvastatin 10 mg tablet 10 mg PO DAILY Qty: 100 3RF metoprolol tartrate 25 mg tablet 25 mg PO BID@0700,1900 Qty: 180 2RF lisinopril 40 mg tablet 40 mg PO DAILY Discharge Orders: Discharge ED (Routine); Ordered 01/29/22 Ordered By: Javier Valenzuela Referrals: Dorita Flaherty FNP [Primary Care Provider] - Discharge Diet: Advance as tolerated Discharge Activity: Resume usual activity and Limit activity as instructed Patient Instructions: Heat Exhaustion - Adult, Opioid Safety, Pain Management Activity Restrictions/Additional Instructions: Please be careful and limit activity during the heat of the day. Be sure you drink plenty of fluids. Follow-up with your primary care provider as needed Sign Out Sign Out Data: Patient Sign Out occurred on 01/29/22 at 18:26. Patient's care was discussed, and care was transferred from to Javier Valenzuela DO. Coding Level of Care Code ED After School Program Director for [facility] Fwd Documented by User: Javier Valenzuela DO 01/29/22 21:18 HPI - Chest Pain General: Chief Complaint: Chest Pain Stated Complaint: cp Time Seen by Provider: 01/29/22 17:25 PFSH ED PFSH: Medical History Atypical chest pain Benign essential hypertension with target blood pressure below 140/90 Chronic low back pain Coronary artery disease Dyslipidemia Epilepsy Glucose intolerance Hypothyroidism Obesity Smoker Type 2 diabetes mellitus Surgical History H/O umbilical hernia repair History of appendectomy Family History Father , at age 74 Family history of premature coronary artery disease Had a myocardial infarction in his 40s. Diabetes CAD (coronary artery disease) Chronic kidney disease (CKD) Stroke Brother Family history of premature coronary artery disease CAD (coronary artery disease) Had [place] in the 50s Diabetes Stroke Grandmother CAD (coronary artery disease) Diabetes Grandfather CAD (coronary artery disease) Mother , at age 84 CAD (coronary artery disease) Cancer Diabetes COVID-19 Family/Other Lung disease Denies family history of Clotting disorder Dementia Suicide Anesthesia complication Bleeding disorder Social History Alcohol intake: current Alcohol intake frequency: holidays/special occasions only Household members: spouse Housing: House Marital status: Current occupational status: disabled History of recent travel: No Course Vital Signs: Vital signs: Vital Signs Pulse Rate 71 01/29/22 21:16 Respiratory Rate 16 01/29/22 21:16 Blood Pressure 149/109 01/29/22 21:16 Pulse Oximetry 97 01/29/22 21:16 Oxygen Delivery Me thod 01/29/22 17:22 MDM - Chest Pain Medical Decision Making Patient care assumed from Dr. Neely. Patient was examined and agree with previous documentation. Patient symptoms related to his heat exposure. Patient with 2 negative EKGs and 2 negative troponins. Patient symptoms likely related to some mild heat exhaustion dehydration. Recommended that he be careful over the next couple days while heat indexes are still high. Patient stable and discharged home Lab Data : 01/29/22 17:35 01/29/22 17:35 Radiology Impressions Chest X-Ray 01/29/22 17:26 IMPRESSION: No acute findings. Laboratory Results WBC 8.8 10^3/uL (4.0-10.0) 01/29/22 17:35 RBC 4.55 10^6/uL (4.1-5.3) 01/29/22 17:35 Hgb 14.4 g/dL (11.7-16.6) 01/29/22 17:35 Hct 42.3 % (42.0-52.0) 01/29/22 17:35 MCV 93.0 fl (80-94) 01/29/22 17:35 MCH 31.6 pg (28.0-34.0) 01/29/22 17:35 MCHC 34.0 g/dL (30.0-36.0) 01/29/22 17:35 RDW 14.0 % (12.1-15.1) 01/29/22 17:35 Plt Count 138 10^3/cmm (130-400) 01/29/22 17:35 MPV 10.6 fL (7.4-10.4) H 01/29/22 17:35 Neut % (Auto) 74.5 % 01/29/22 17:35 Lymph % (Auto) 12.6 % 01/29/22 17:35 [place] % (Auto) 7.0 % 01/29/22 17:35 Eos % (Auto) 3.3 % 01/29/22 17:35 Baso % (Auto) 1.7 % 01/29/22 17:35 Neut # (Auto) 6.59 10^3/uL (1.8-7.7) 01/29/22 17:35 Lymph # (Auto) 1.1 10^3/uL (0.8-4.8) 01/29/22 17:35 [place] # (Auto) 0.6 10^3/uL (0.2-0.9) 01/29/22 17:35 Eos # (Auto) 0.3 10^3/uL (0.0-0.8) 01/29/22 17:35 Baso # (Auto) 0.2 10^3/uL (0.0-0.1) H 01/29/22 17:35 Nucleated RBC % (auto) 0 % 01/29/22 17:35 Nucleated RBCs # 0.0 /100WBC 01/29/22 17:35 Sodium 138 mmol/L (136-145) 01/29/22 17:35 Potassium 3.8 mmol/L (3.5-5.1) 01/29/22 17:35 Chloride 101 mmol/L (98-107) 01/29/22 17:35 Carbon Dioxide 26 mmol/L (22-29) 01/29/22 17:35 Anion Gap 14.8 (5-19) 01/29/22 17:35 BUN 15 mg/dL (6-20) 01/29/22 17:35 Creatinine 1.5 mg/dL (0.7-1.2) H 01/29/22 17:35 GFR Calculation 48.6 mL/min (90-130) L 01/29/22 17:35 Glucose 126 mg/dL (65-115) H 01/29/22 17:35 Calculated Osmolality 288 mOsm/kg (285-295) 01/29/22 17:35 Calcium 9.3 mg/dL (8.5-10.5) 01/29/22 17:35 Total Bilirubin 1.6 mg/dL (0.15-1.2) H 01/29/22 17:35 AST 40 U/L (0-40) 01/29/22 17:35 ALT 23 U/L (0-41) 01/29/22 17:35 Alkaline Phosphatase 106 U/L (40-130) 01/29/22 17:35 Troponin T Baseline 19 ng/L (0-15) H 01/29/22 17:35 Troponin T 120 Minute 17.75 ng/L (0-15) H 01/29/22 20:24 Delta Troponin T -1.25 ABS# (0-10) L 01/29/22 20:24 Total Protein 7.6 g/dL (6.6-8.7) 01/29/22 17:35 Albumin 4.0 g/dL (3.5-5.2) 01/29/22 17:35 Globulin 3.6 g/dL (1.3-4.6) 01/29/22 17:35 Urine Color Yellow (Yellow) 01/29/22 20:32 Urine Appearance Clear (CLEAR) 01/29/22 20:32 Urine pH 5 (5-7) 01/29/22 20:32 Ur Specific [place] 1.020 (1.005-1.030) 01/29/22 20:32 Urine Protein 1+ (Negative) H 01/29/22 20:32 Urine Glucose (UA) Norm (Normal) 01/29/22 20:32 Urine Ketones 1+ (Negative) H 01/29/22 20:32 Urine Blood Neg (Negative) 01/29/22 20:32 Urine Nitrate Negative (Negative) 01/29/22 20:32 Urine Bilirubin 1+ (Negative) H 01/29/22 20:32 Urine Urobilinogen 1 mg/dL (Negative) H 01/29/22 20:32 Ur Leukocyte Esterase Trace (Negative) H 01/29/22 20:32 Urine RBC None /hpf (0-2) 01/29/22 20:32 Urine WBC 0-4 /hpf (0-5) H 01/29/22 20:32 Ur Squamous Epith Cells 0-4 /hpf (0-5) H 01/29/22 20:32 Amorphous Sediment 1+ /hpf 01/29/22 20:32 Urine Bacteria None /hpf (NONE) 01/29/22 20:32 Urine Mucus 1+ /hpf 01/29/22 20:32 EKG Data EKG 2: I personally reviewed and interpreted this EKG as follows: EKG interpretation date: 01/29/22 EKG interpretation time: 20:01 Interpretation: Sinus rhythm, heart rate 65, MN 158, QRS 83, QTc 413. No significant change in morphology from previous EKG, improvement and QT. No acute ST elevation or changes Discharge Plan Discharge Patient Disposition: Home Clinical Impression: Dehydration symptoms, Chest discomfort Heat effect Qualifiers: Encounter type: initial encounter Qualified Code(s): T67.9XXA - Effect of heat and light, unspecified, initial encounter Condition: Stable Prescriptions: No Action venlafaxine 75 mg capsule,extended release 24hr 75 mg PO DAILY glipizide 5 mg tablet 5 mg PO DAILY@0700 spironolactone 50 mg tablet 50 mg PO DAILY metformin 1,000 mg tablet extended release 24hr 1,000 mg PO BID@0700,1900 Hold Instructions: Resume on 07/13/20. May restart this medication on 13 of July levothyroxine 150 mcg capsule 250 mcg PO DAILY baclofen 10 mg tablet 10 mg PO BID PRN Keppra 500 mg tablet 500 mg PO BID@0700,1900 Qty: 180 3RF Rx Instructions: Generic can be filled allopurinol 100 mg tablet 100 mg PO DAILY nitroglycerin 0.4 mg tablet, sublingual 0.4 mg SUBLINGUAL Q5M PRN (Reason: chest pain) 30 Days Qty: 30 3RF Rx Instructions: until response; do not exceed 3 doses per episode Plavix 75 mg tablet 75 mg PO DAILY@0700 Qty: 90 3RF aspirin 81 mg tablet,chewable 81 mg PO DAILY@0700 Qty: 90 3RF fenofibrate 54 mg tablet 54 mg PO DAILY Qty: 90 3RF rosuvastatin 10 mg tablet 10 mg PO DAILY Qty: 100 3RF metoprolol tartrate 25 mg tablet 25 mg PO BID@0700,1900 Qty: 180 2RF lisinopril 40 mg tablet 40 mg PO DAILY Discharge Orders: Discharge ED (Routine); Ordered 01/29/22 Ordered By: Javier Valenzuela Referrals: Dorita Flaherty FNP [Primary Care Provider] - Discharge Diet: Advance as tolerated Discharge Activity: Resume usual activity and Limit activity as instructed Patient Instructions: Heat Exhaustion - Adult, Opioid Safety, Pain Management Activity Restrictions/Additional Instructions: Please be careful and limit activity during the heat of the day. Be sure you drink plenty of fluids. Follow-up with your primary care provider as needed Sign Out Sign Out Data: Patient Sign Out occurred on 01/29/22 at 18:26. Patient's care was discussed, and care was transferred from to Javier Valenzuela DO. Coding Level of Care Code ED After School Program Director for Marva Bunn
[2022-01-29 18:11] LABS: Troponin(5th) Baseline 19 ng/L (0-15)
[2022-01-29 18:14] LABS: Alanine Aminotransferase 23 U/L (0-41); Alkaline Phosphatase 106 U/L (40-130); Anion Gap 14.8 (5-19); Aspartate Amino Transferase 40 U/L (0-40); Blood Urea Nitrogen 15 mg/dL (6-20); Calcium 9.3 mg/dL (8.5-10.5); Carbon Dioxide 26 mmol/L (22-29); Chloride 101 mmol/L (98-107); Globulin 3.6 g/dL (1.3-4.6); Glomerular Filtration Rate 48.6 mL/min (90-130); Glucose 126 mg/dL (65-115); Osmolality Calculated 288 mOsm/kg (285-295); Potassium 3.8 mmol/L (3.5-5.1); Sodium 138 mmol/L (136-145); Total Bilirubin 1.6 mg/dL (0.15-1.2); Total Protein 7.6 g/dL (6.6-8.7)
[2022-01-29] MEDS: acetaminophen 325 mg Tablet 650 MG PO (18:50)
[2022-01-29] MEDS: aspirin 81 mg Chew Tablet 324 MG PO (18:52)
[2022-01-29] MEDS: sodium chloride 0.9% 1,000 ML 999 ML IV (18:56)
--- NOTE | 2022-01-29 19:27 | ECG_ITS ---
[facility] Test Date: 2022-01-29 Pat Name: Alonso Golden Department: Room: Gender: Male [employer]: : 1965 Requested By: Mendel Pierson Order Number: [id number] Mariaa MD: Sujata Flores M.D. Measurements Intervals [place] Rate: 65 P: 11 IN: 158 QRS: -34 QRSD: 83 T: 74 QT: 402 QTc: 419 Interpretive Statements SINUS RHYTHM LEFT AXIS DEVIATION [QRS AXIS < -30] MODERATE VOLTAGE CRITERIA FOR LVH, CONSIDER NORMAL VARIANT [MEETS CRITERIA IN ONE OF: R(aVL), S(V1), R(V5), R(V5/V6)+S(V1)] POSSIBLE ANTERIOR MYOCARDIAL INFARCTION , OF INDETERMINATE AGE [30 ms Q WAVE IN V3/V4, OR R < 0.2 mV IN V4] Compared to ECG 01/29/2022 17:24:12 Myocardial infarct finding now present T-wave abnormality no longer present Prolonged QT interval no longer present Electronically Signed On 01-29-2022 20:51:05 CDT by Sujata Flores M.D. [id number]
[2022-01-29 20:25] VITALS: BP 131/95; PULSE 64; RESP 16; O2SAT 96
[2022-01-29 20:46] LABS: Troponin 5 2HR 17.75 ng/L (0-15)
[2022-01-29 20:50] LABS: Troponin 5 2HR Delta -1.25 ABS# (0-10)
[2022-01-29 21:02] LABS: Add Urine Microscopic? YES; Bilirubin Urine 1+ (Negative); Blood Urine Neg (Negative); Glucose Urine UA Norm (Normal); Ketones Urine 1+ (Negative); Leukocyte Esterase Urine Trace (Negative); Nitrate Urine Negative (Negative); Protein Urine 1+ (Negative); Urine Appearance Clear (CLEAR); Urine Color Yellow (Yellow); Urobilinogen Urine 1 mg/dL (Negative); pH Urine 5 (5-7)
[2022-01-29 21:03] LABS: Amorphous Sediment Urine 1+ /hpf; Mucus Urine 1+ /hpf; Squamous Epithelial Cell Urine 0-4 /hpf (0-5); WBC Urine 0-4 /hpf (0-5)
[2022-01-29 21:04] LABS: Add Urine Culture? No
[2022-01-29 21:16] VITALS: BP 149/109; PULSE 71; RESP 16; O2SAT 97
== END 2022-01-29 21:20 | disposition home or self-care (01) ==
PROVIDERS: Family Medicine; Emergency Provider Student in an Organized Health Care Education/Training Program; PCP Nurse Practitioner Family
DX: R07.89 Other chest pain (principal); E86.0 Dehydration; T67.9XXA Effect of heat and light, unspecified, initial encounter; Z79.84 Long term (current) use of oral hypoglycemic drugs; Z79.02 Long term (current) use of antithrombotics/antiplatelets; Z79.82 Long term (current) use of aspirin; I10 Essential (primary) hypertension; I25.10 Atherosclerotic heart disease of native coronary artery without angina pectoris; E78.5 Hyperlipidemia, unspecified; E11.9 Type 2 diabetes mellitus without complications; X30.XXXA Exposure to excessive natural heat, initial encounter
CPT/HCPCS: 36415; 71045; 80053; 81001; 84484; 85025; 93005; 99285; J7030

== ENCOUNTER 2022-02-17 13:16 | Emergency (ER) | payer MEDICAID, SELFPAY ==
[2022-02-17 13:20] VITALS: BP 148/92; PULSE 69; RESP 18; TEMP 36.7; O2SAT 98; BMI 31.5
--- NOTE | 2022-02-17 14:21 | XRR_ITS ---
PROCEDURE INFORMATION: Exam: XR Left Knee Exam date and time: 02/17/2022 2:36 PM Age: 57 years old Clinical indication: Injury or trauma; Fall; Blunt trauma; Knee; Left; Additional info: Left knee pain-injury from dancing last night TECHNIQUE: Imaging protocol: Radiologic exam of the Left knee. Views: 3 views. COMPARISON: No relevant prior studies available. FINDINGS: Bones/joints: Normal. Soft tissues: Normal. XR/XR knee LT 3V* 19443 IMPRESSION: No acute findings.
--- NOTE | 2022-02-17 14:39 | W.ED.EXTPRO ---
HPI - Extremity Problem General: Chief complaint: Extremity Injury, Lower Stated complaint: left leg pain Time Seen by Provider: 02/17/22 14:08 History of Present Illness: Patient is a 57-year-old male who comes to the ED with left knee pain. Patient states he has had chronic left knee pain for the past 20 years. He went out dancing yesterday evening and this morning woke up and his left knee was painful and stiff. He has been using his cane today to help with ambulation. He has taken aspirin at home but denies taking any other pain meds. Denies any other trauma/ injury or pain. Associated symptoms: Deny chest pain, fever(s) or rash Review of Systems Const: Denies: fever(s), chills or fatigue Eyes: Denies: change in vision or eye discomfort ENMT: Denies: throat pain, odynophagia, nasal discharge or nasal congestion Card: Denies: chest pain, palpitations, edema, swelling of feet/ankles, dyspnea on exertion or orthopnea Resp: Denies: dyspnea, productive cough or non-productive cough GI: Denies: abdominal pain, nausea, vomiting, diarrhea, constipation or hematochezia : Denies: flank pain, difficulty urinating, dysuria or hematuria Musc: Reports: extremity pain (left knee); Denies: neck pain, back pain or extremity swelling Skin/Breast: Denies: rash or new lesions Neuro: Denies: headache(s), numbness in extremities or weakness in extremities PFS ED PFSH: Medical History Atypical chest pain Benign essential hypertension with target blood pressure below 140/90 Chronic low back pain Coronary artery disease Dyslipidemia Epilepsy Glucose intolerance Hypothyroidism Obesity Smoker Type 2 diabetes mellitus Surgical History H/O umbilical hernia repair History of appendectomy Family History Father , at age 74 Family history of premature coronary artery disease Had a myocardial infarction in his 40s. Diabetes CAD (coronary artery disease) Chronic kidney disease (CKD) Stroke Brother Family history of premature coronary artery disease CAD (coronary artery disease) Had [place] in the 50s Diabetes Stroke Grandmother CAD (coronary artery disease) Diabetes Grandfather CAD (coronary artery disease) Mother , at age 84 CAD (coronary artery disease) Cancer Diabetes COVID-19 Family/Other Lung disease Denies family history of Clotting disorder Dementia Suicide Anesthesia complication Bleeding disorder Social History Alcohol intake: current Alcohol intake frequency: holidays/special occasions only Household members: spouse Housing: House Marital status: Current occupational status: disabled History of recent travel: No Physical Exam Const: COMMON NORMALS: patient oriented x3 HENMT: COMMON NORMALS: normocephalic HEAD & SCALP: normocephalic MOUTH: Normal oral and palatal mucosa present THROAT: posterior oropharynx normal and uvula midline Neck/C-Spine: COMMON NORMALS: supple GENERAL: Yes normal visual inspection Resp: COMMON NORMALS: normal respiratory effort, No retractions, No use of accessory muscles and clear to auscultation bilaterally AUSCULTATION: clear to auscultation bilaterally Cardio: COMMON NORMALS: regular rate, regular rhythm, S1 normal heart sound present, S2 normal heart sound present, No gallops present (Cardio), No clicks present (Cardio), No murmurs present (Cardio) and Peripheral pulses 2+ throughout RATE: regular rate RHYTHM: regular rhythm HEART SOUNDS: S1 normal heart sound present and S2 normal heart sound present PERIPHERAL PULSES: Peripheral pulses 2+ throughout GI: COMMON NORMALS: Normal to inspection, nondistended, normoactive bowel sounds present, Soft to palpation, non-tender and no masses PALPATION: Yes Soft to palpation : COMMON NORMALS: Yes no CVA tenderness BLADDER/KIDNEY EXAM: Yes no CVA tenderness Back/Pelvis: COMMON NORMALS: no CVA tenderness Extremity: COMMON NORMALS: normal to inspection Neuro: COMMON NORMALS: patient oriented x3 GAIT: Yes Normal gait present Skin: GENERAL SKIN EXAM: dry skin Course Vital Signs: Vital signs: Vital Signs Temperature 98.0 F 02/17/22 13:20 Pulse Rate 62 02/17/22 15:52 Respiratory Rate 15 02/17/22 15:52 Blood Pressure 148/92 02/17/22 13:20 Pulse Oximetry 96 02/17/22 15:52 Oxygen Delivery Me thod 02/17/22 13:20 MDM - Extremity (Nontraumatic) Medical Decision Making Patient is a 57-year-old male who comes to the ED with left knee pain. Patient states he has had chronic left knee pain for the past 20 years. He went out dancing yesterday evening and this morning woke up and his left knee was painful and stiff. Vitals are stable. Exam is benign. X-ray of left knee showed no acute fractures or findings. I placed order with case management for patient be referred to Ortho for his chronic left knee pain. He was discharged home with left knee pain and sent with a prescription for Tylenol arthritis. Acute return ED precautions given. Patient understood and agreed with plan. Lab Data Radiology Impressions Knee X-Ray 02/17/22 14:21 IMPRESSION: No acute findings. Discharge Plan Discharge Patient Disposition: Home Clinical Impression: Knee pain Qualifiers: Chronicity: unspecified Laterality: left Qualified Code(s): M25.562 - Pain in left knee Condition: Stable Prescriptions: New Tylenol Arthritis Pain 650 mg tablet extended release 650 mg PO Q8H PRN (Reason: pain) Qty: 30 0RF No Action venlafaxine 75 mg capsule,extended release 24hr 75 mg PO DAILY glipizide 5 mg tablet 5 mg PO DAILY@0700 spironolactone 50 mg tablet 50 mg PO DAILY metformin 1,000 mg tablet extended release 24hr 1,000 mg PO BID@0700,1900 Hold Instructions: Resume on 07/13/20. May restart this medication on 13 of July levothyroxine 150 mcg capsule 250 mcg PO DAILY baclofen 10 mg tablet 10 mg PO BID PRN Keppra 500 mg tablet 500 mg PO BID@0700,1900 Qty: 180 3RF Rx Instructions: Generic can be filled allopurinol 100 mg tablet 100 mg PO DAILY nitroglycerin 0.4 mg tablet, sublingual 0.4 mg SUBLINGUAL Q5M PRN (Reason: chest pain) 30 Days Qty: 30 3RF Rx Instructions: until response; do not exceed 3 doses per episode Plavix 75 mg tablet 75 mg PO DAILY@0700 Qty: 90 3RF aspirin 81 mg tablet,chewable 81 mg PO DAILY@0700 Qty: 90 3RF fenofibrate 54 mg tablet 54 mg PO DAILY Qty: 90 3RF rosuvastatin 10 mg tablet 10 mg PO DAILY Qty: 100 3RF metoprolol tartrate 25 mg tablet 25 mg PO BID@0700,1900 Qty: 180 2RF lisinopril 40 mg tablet 40 mg PO DAILY Discharge Orders: Discharge ED (Routine); Ordered 02/17/22 Ordered By: Sadiq Villalobos Referrals: Dorita Flaherty FNP [Primary Care Provider] - Discharge Diet: Regular Discharge Activity: Increase activity as tolerated Patient Instructions: Knee Pain (ED) Activity Restrictions/Additional Instructions: Follow-up with medical provider as directed in the next 5 to 7 days reevaluation. Rest, ice and elevate left knee. Continue taking all home medications as previously prescribed return to the ER or your medical provider if condition worsens. Please read and understand discharge instructions. Thank you for choosing [facility] for your healthcare needs today. Please realize this is an emergency room and that we are providing you with a medical screening exam and this may not be complete and all inclusive of all the testing and or work up that you may need to determine your ailment or severity of your illness. It is very important that you follow up as instructed or that you return to the Emergency Department should you have concerns or if your condition changes or worsens in any way. Coding Level of Care Code ED Flag Football Coach for Marva Fwd Exam Comprehensive
[2022-02-17] MEDS: HYDROcodone-acetaminophen 7.5-325 mg Tablet 1 TAB PO (14:52)
[2022-02-17 15:52] VITALS: PULSE 62; RESP 15; O2SAT 96
--- NOTE | 2022-02-18 10:54 | PC.SOCIAL ---
Addendum entered by Kira Cerna 02/27/22 13:14: manager loss prevention received the following message from the ortho clinic regarding follow up appointment: Left vm/mailed letter for pt to call back and schedule. Thanks Original Note: Ortho F/u Message sent to ortho for f/u r/t chronic left knee pain. Clinic will contact patient with appointment date and time.
== END 2022-02-17 15:53 | disposition home or self-care (01) ==
PROVIDERS: Emergency Provider Physician Assistant; PCP Nurse Practitioner Family
DX: M25.562 Pain in left knee (principal)
CPT/HCPCS: 73562; 99283

== ENCOUNTER → 2022-02-25 09:17 | Outpatient (BNVA) | payer MEDICAID, SELFPAY | PROVIDERS: PCP Nurse Practitioner Family; Visit Provider Specialist | DX: G40.309 Generalized idiopathic epilepsy and epileptic syndromes, not intractable, without status epilepticus (principal); F17.200 Nicotine dependence, unspecified, uncomplicated | CPT/HCPCS: 99214 ==

== ENCOUNTER 2022-03-18 20:47 | Emergency (ER) | payer MEDICAID, SELFPAY ==
[2022-03-18 21:04] VITALS: BP 128/84; PULSE 83; RESP 18; TEMP 36.7; O2SAT 98; BMI 32.4
--- NOTE | 2022-03-18 21:46 | W.ED.GENADLT ---
HPI - General Adult General: Chief complaint: General Medical Stated complaint: Throat hurts Time Seen by Provider: 03/18/22 21:44 History of Present Illness: 57-year-old male patient comes in today with complaints of sore throat and chest congestion. Patient is concerned that he may have pneumonia or strep throat. Patient appears nontoxic. Patient appears in no acute distress. Review of Systems General: Reports: 10 or more systems reviewed and unremarkable except in HPI and below ENMT: Reports: throat pain Resp: Reports: non-productive cough PFSH ED PFSH: Medical History Atypical chest pain Benign essential hypertension with target blood pressure below 140/90 Chronic low back pain Coronary artery disease Dyslipidemia Epilepsy Glucose intolerance Hypothyroidism Obesity Smoker Type 2 diabetes mellitus Surgical History H/O umbilical hernia repair History of appendectomy Family History Father , at age 74 Family history of premature coronary artery disease Had a myocardial infarction in his 40s. Diabetes CAD (coronary artery disease) Chronic kidney disease (CKD) Stroke Brother Family history of premature coronary artery disease CAD (coronary artery disease) Had [place] in the 50s Diabetes Stroke Grandmother CAD (coronary artery disease) Diabetes Grandfather CAD (coronary artery disease) Mother , at age 84 CAD (coronary artery disease) Cancer Diabetes COVID-19 Family/Other Lung disease Denies family history of Clotting disorder Dementia Suicide Anesthesia complication Bleeding disorder Social History Smoking and tobacco status: current every day smoker Alcohol intake: current Alcohol intake frequency: holidays/special occasions only Household members: spouse Housing: House Marital status: Current occupational status: disabled History of recent travel: No Physical Exam Const: COMMON NORMALS: alert HENMT: COMMON NORMALS: normocephalic HEAD & SCALP: normocephalic THROAT: posterior oropharynx normal Eye: GENERAL EYE: appearance normal, both eyes and all related structures Neck/C-Spine: COMMON NORMALS: full ROM Resp: COMMON NORMALS: normal respiratory effort and clear to auscultation bilaterally AUSCULTATION: clear to auscultation bilaterally Cardio: COMMON NORMALS: regular rate and regular rhythm RATE: regular rate RHYTHM: regular rhythm HEART SOUNDS: Murmur heart sound present systolic GI: COMMON NORMALS: Soft to palpation PALPATION: Yes Soft to palpation Extremity: COMMON NORMALS: no pedal edema Neuro: SENSORIUM/ORIENTATION: Yes alert Skin: COMMON NORMALS: turgor normal GENERAL SKIN EXAM: turgor normal Course Vital Signs: Vital signs: Vital Signs Temperature 98.0 F 03/18/22 21:04 Pulse Rate 83 03/18/22 21:04 Respiratory Rate 18 03/18/22 21:04 Blood Pressure 128/84 03/18/22 21:04 Pulse Oximetry 98 03/18/22 21:04 Oxygen Delivery Me thod 03/18/22 21:04 [facility] - General Adult Medical Decision Making 57-year-old male patient comes in today for complaints of sore throat and cough. On exam patient has clear lung sounds. Posterior pharynx is pink and moist. Abdomen soft nontender. No edema is noted in the extremities. Patient does have a systolic murmur. Differential diagnosis includes but not limited to pneumonia, pharyngitis, upper respiratory infection. Chest x-ray was unremarkable. Strep test was negative. Patient was given a dose of dexamethasone for his sore throat. Patient was recommended use acetaminophen and ibuprofen for further pain. Follow-up with primary care as needed. Return to ED for new concerns. Lab Data Laboratory Results Group A Strep Rapid Negative (Negative) 03/18/22 22:09 Discharge Plan Discharge Patient Disposition: Home Clinical Impression: Pharyngitis Qualifiers: Pharyngitis/tonsillitis etiology: unspecified etiology Qualified Code(s): J02.9 - Acute pharyngitis, unspecified Condition: Stable Prescriptions: No Action venlafaxine 75 mg capsule,extended release 24hr 75 mg PO DAILY glipizide 5 mg tablet 5 mg PO DAILY@0700 spironolactone 50 mg tablet 50 mg PO DAILY metformin 1,000 mg tablet extended release 24hr 1,000 mg PO BID@0700,1900 Hold Instructions: Resume on 07/13/20. May restart this medication on 13 of July levothyroxine 150 mcg capsule 250 mcg PO DAILY baclofen 10 mg tablet 10 mg PO BID PRN allopurinol 100 mg tablet 100 mg PO DAILY nitroglycerin 0.4 mg tablet, sublingual 0.4 mg SUBLINGUAL Q5M PRN (Reason: chest pain) 30 Days Qty: 30 3RF Rx Instructions: until response; do not exceed 3 doses per episode Plavix 75 mg tablet 75 mg PO DAILY@0700 Qty: 90 3RF aspirin 81 mg tablet,chewable 81 mg PO DAILY@0700 Qty: 90 3RF fenofibrate 54 mg tablet 54 mg PO DAILY Qty: 90 3RF rosuvastatin 10 mg tablet 10 mg PO DAILY Qty: 100 3RF metoprolol tartrate 25 mg tablet 25 mg PO BID@0700,1900 Qty: 180 2RF levetiracetam 750 mg tablet for suspension 750 mg PO BID 90 Days Qty: 180 3RF lisinopril 40 mg tablet 40 mg PO DAILY Tylenol Arthritis Pain 650 mg tablet extended release 650 mg PO Q8H PRN (Reason: pain) Qty: 30 0RF Discharge Orders: Discharge ED (Routine); Ordered 03/18/22 Ordered By: Alexis Brian Referrals: Dorita Flaherty FNP [Primary Care Provider] - Discharge Diet: Usual diet Discharge Activity: Increase activity as tolerated Patient Instructions: Pharyngitis (ED) Activity Restrictions/Additional Instructions: Drink plenty of fluids. Use acetaminophen or ibuprofen for pain. Pharyngitis will often resolve within 3 to 5 days. Follow-up with primary care as needed. Return to ER for worsening symptoms such as increased shortness of breath, fever greater than 100.4, or new concerns. Coding Level of Care Code ED [employer] Manager for Marva Bunn Exam Comprehensive
--- NOTE | 2022-03-18 21:47 | XRR_ITS ---
PROCEDURE INFORMATION: Exam: XR Chest Exam date and time: 03/18/2022 11:21 PM Age: 57 years old Clinical indication: Cough and shortness of breath; Patient HX: Cough with SOB; Additional info: Cough, SOB TECHNIQUE: Imaging protocol: Radiologic exam of the chest. Views: 1 view. COMPARISON: CR XR chest 1V portable [id number] 01/29/2022 5:31 PM FINDINGS: Lungs: Unremarkable. No consolidation. Pleural spaces: Unremarkable. No pleural effusion. No pneumothorax. Heart/Mediastinum: Unremarkable. No cardiomegaly. Bones/joints: Unremarkable. XR/XR chest 1V portable [id number] IMPRESSION: No acute findings.
[2022-03-18] MEDS: ketorolac 10 mg Tablet PO (22:10)
[2022-03-18] MEDS: dexamethasone 4 mg Tablet 10 MG PO (22:11)
[2022-03-18 22:38] LABS: Rapid Strep A Test Negative (Negative)
[2022-03-18] MEDS: benzonatate 100 mg Capsule PO (22:48)
== END 2022-03-18 22:49 | disposition home or self-care (01) ==
PROVIDERS: Emergency Provider Nurse Practitioner Family; PCP Nurse Practitioner Family
DX: J02.9 Acute pharyngitis, unspecified (principal); F17.200 Nicotine dependence, unspecified, uncomplicated
CPT/HCPCS: 71045; 87081; 87880; 99284; J8540

== ENCOUNTER 2022-05-25 13:16 | Emergency (ER) | payer MEDICAID, SELFPAY ==
[2022-05-25 13:19] VITALS: BP 136/90; PULSE 87; RESP 16; TEMP 35.8; O2SAT 99
[2022-05-25] MEDS: dexamethasone 10 mg/mL INJ IM (14:52)
[2022-05-25] MEDS: ketorolac 60 mg/2 mL INJ IM (14:55)
[2022-05-25] MEDS: orphenadrine 30 mg/mL Inj 2 mL 60 MG IM (14:55)
--- NOTE | 2022-05-25 15:08 | ED_ITS ---
HPI - Neck Pain/Injury General: Chief Complaint: Neck Pain/Injury Stated Complaint: back/neck/shoulder pain Time Seen by Provider: 05/25/22 14:15 History of Present Illness: Patient is a 57-year-old man that presents to the emergency department with complaints of neck pain. Onset this morning when waking up. He reports that pain is just right of midline and radiates into the trapezius. Patient denies any numbness or tingling. Denies any weakness. He denies trauma or injury. Prior to coming here patient has taken aspirin, acetaminophen, ibuprofen. No relief with Associated symptoms: Denies dysphagia, difficulty walking, dizziness, headach e(s) or nausea Review of Systems General: Reports: 10 or more systems reviewed and unremarkable except in HPI and below Const: Denies: fever(s), chills, change in appetite, change in weight, fatigue or malaise Eyes: Denies: change in vision, eye discomfort, eye discharge or eye redness ENMT: Denies: throat pain, enlarged tonsils, odynophagia, hoarseness, ear or mastoid pain, ear discharge, change in hearing, tinnitus, nasal discharge, nasal congestion, post nasal drip or sinus pain Card: Denies: chest pain, palpitations, irregular heart rhythm, edema, dyspnea on exertion, orthopnea or leg pain with exertion Resp: Denies: dyspnea, productive cough, non-productive cough, wheezing, stridor or chest congestion GI: Denies: abdominal pain, nausea, vomiting, dysphagia, diarrhea, constipation, bloating, GI cramping or hematochezia : Denies: flank pain, dysuria, urinary frequency, urinary urgency, urinary hesitancy, oliguria or hematuria Musc: Denies: neck pain, back pain, extremity pain, joint pain, joint swelling, joint redness, joint warmth or muscle weakness Skin/Breast: Denies: rash, pruritus, erythema, photosensitivity or new lesions Neuro: Denies: headache(s), numbness in extremities, weakness in extremities, sensory changes, lack of coordination, difficulty walking, frequent falls, dizziness, confusion, Slurred speech present, difficulty communicating thoughts, seizure-like activity or involuntary movements Endo: Denies: polyuria, polydipsia or tired all the time Jose G/Lymph: Denies: easy bruising or easy bleeding PFSH ED PFSH: Medical History Atypical chest pain Benign essential hypertension with target blood pressure below 140/90 Chronic low back pain Coronary artery disease Dyslipidemia Epilepsy Glucose intolerance Hypothyroidism Obesity Smoker Type 2 diabetes mellitus Surgical History H/O umbilical hernia repair History of appendectomy Family History Father , at age 74 Family history of premature coronary artery disease Had a myocardial infarction in his 40s. Diabetes CAD (coronary artery disease) Chronic kidney disease (CKD) Stroke Brother Family history of premature coronary artery disease CAD (coronary artery disease) Had [place] in the 50s Diabetes Stroke Grandmother CAD (coronary artery disease) Diabetes Grandfather CAD (coronary artery disease) Mother , at age 84 CAD (coronary artery disease) Cancer Diabetes COVID-19 Family/Other Lung disease Denies family history of Clotting disorder Dementia Suicide Anesthesia complication Bleeding disorder Social History Smoking and tobacco status: current every day smoker Alcohol intake: current Alcohol intake frequency: holidays/special occasions only Household members: spouse Housing: House Marital status: Current occupational status: disabled History of recent travel: No Physical Exam Narrative: EXAM NARRATIVE: No acute distress Alert and oriented x3 Calm and cooperative Obese, chronically ill-appearing Atraumatic head and face Normocephalic Tenderness to palpation over right paraspinous muscles of the cervical spine Tightness and tenderness over the right trapezius Patient has full active range of motion of neck and shoulders Positive Spurling 5/5 strength bilateral shoulder shrug 5/5 strength bilateral deltoid, triceps, bicep, scleroscope tester, intrinsics Sensation intact throughout all nerve distributions Denies radicular symptoms Denies numbness and tingling Respiratory: Nonlabored breathing, no accessory muscle use, without abnormal breath sounds Cardiac: Extremity is well-perfused, denies chest pain, denies shortness of breath GI abdomen: Obese soft round, nontender to palpation Back and pelvis: No complaints of thoracic, lumbar, pelvic pain Denies radicular symptoms in lower extremities Denies any numbness or tingling Denies any weakness in lower extremities Denies saddle paresthesias Denies loss of bowel or bladder control Psychiatric: Calm and cooperative Skin: No rashes lesions or wounds Course Vital Signs: Vital signs: Vital Signs Temperature 96.4 F L 05/25/22 13:19 Pulse Rate 87 05/25/22 13:19 Respiratory Rate 16 05/25/22 13:19 Blood Pressure 136/90 05/25/22 13:19 Pulse Oximetry 99 05/25/22 13:19 MDM - Neck Pain/Injury Medical Decision Making Patient was evaluated in the emergency department for complaints of neck pain. He denies any falls or injuries Differential diagnoses includes SCM tightness/torticollis, paraspinous muscle spasm, trapezius muscle spasm, radicular symptoms, nerve root or central canal stenosis. Patient was evaluated in the emergency department for this complaint of neck pain that was present upon awakening. Patient denies any falls or injuries. He denies numbness tingling or alteration in sensation. Pain is localized to right trapezius and right paraspinous muscle Sent was treated in the emergency department with Decadron, Toradol, Norflex. Patient reports that his symptoms have improved since medication was provided. Since he has not had any trauma or falls and this is a new muscular complaint, we will forego any further diagnostic imaging at this time. Patient should follow-up with his primary care doctor to to further evaluate if needed. Should return here if he develops any weakness. If he is not improving in 5 to 7 days or if he is worse he can return to the emergency department. Questions sought and answered and he is agreeable with this plan Discharge Plan Discharge Patient Disposition: Home Clinical Impression: Muscle spasm Condition: Stable Prescriptions: New ketorolac 10 mg tablet 10 mg PO TID PRN (Reason: pain) 5 Days Qty: 15 0RF methocarbamol 500 mg tablet 500 mg PO Q6H 10 Days Qty: 40 0RF prednisone 50 mg tablet 50 mg PO DAILY 5 Days Qty: 5 0RF No Action venlafaxine 75 mg capsule,extended release 24hr 75 mg PO DAILY glipizide 5 mg tablet 5 mg PO DAILY@0700 spironolactone 50 mg tablet 50 mg PO DAILY metformin 1,000 mg tablet extended release 24hr 1,000 mg PO BID@0700,1900 Hold Instructions: Resume on 07/13/20. May restart this medication on 13 of July levothyroxine 150 mcg capsule 250 mcg PO DAILY baclofen 10 mg tablet 10 mg PO BID PRN allopurinol 100 mg tablet 100 mg PO DAILY nitroglycerin 0.4 mg tablet, sublingual 0.4 mg SUBLINGUAL Q5M PRN (Reason: chest pain) 30 Days Qty: 30 3RF Rx Instructions: until response; do not exceed 3 doses per episode Plavix 75 mg tablet 75 mg PO DAILY@0700 Qty: 90 3RF aspirin 81 mg tablet,chewable 81 mg PO DAILY@0700 Qty: 90 3RF fenofibrate 54 mg tablet 54 mg PO DAILY Qty: 90 3RF rosuvastatin 10 mg tablet 10 mg PO DAILY Qty: 100 3RF metoprolol tartrate 25 mg tablet 25 mg PO BID@0700,1900 Qty: 180 2RF levetiracetam 750 mg tablet for suspension 750 mg PO BID 90 Days Qty: 180 3RF lisinopril 40 mg tablet 40 mg PO DAILY Tylenol Arthritis Pain 650 mg tablet extended release 650 mg PO Q8H PRN (Reason: pain) Qty: 30 0RF Discharge Orders: Discharge ED (Routine); Ordered 05/25/22 Ordered By: Du Stanford Referrals: Dorita Flaherty FNP [Primary Care Provider] - Discharge Diet: Advance as tolerated Discharge Activity: Resume usual activity Patient Instructions: Cervical Strain (ED), Muscle Spasm (ED), Pain Management Activity Restrictions/Additional Instructions: Please take your medications as prescribed If you are not better or you are getting worse in the next 5 to 7 days, follow- up with primary care or return here as needed. Do not drive while taking Robaxin. This medication may make you sleepy. Please follow-up with your primary care for further evaluation Coding Level of Care Code ED Manager Social Media for Marva Bunn
[2022-05-25 16:34] VITALS: BP 153/84; PULSE 97; RESP 16; O2SAT 98
== END 2022-05-25 16:36 | disposition home or self-care (01) ==
PROVIDERS: Emergency Provider Nurse Practitioner; PCP Nurse Practitioner Family
DX: M62.838 Other muscle spasm (principal); Z79.84 Long term (current) use of oral hypoglycemic drugs; Z79.02 Long term (current) use of antithrombotics/antiplatelets; Z79.82 Long term (current) use of aspirin; F17.210 Nicotine dependence, cigarettes, uncomplicated; I10 Essential (primary) hypertension; I25.10 Atherosclerotic heart disease of native coronary artery without angina pectoris; E78.5 Hyperlipidemia, unspecified; E11.9 Type 2 diabetes mellitus without complications
CPT/HCPCS: 96372; 99284; J1100; J1885; J2360

== ENCOUNTER 2022-05-27 20:58 | Emergency (ER) | payer MEDICAID, SELFPAY ==
[2022-05-27 21:08] VITALS: BP 165/98; PULSE 99; RESP 18; TEMP 36.6; O2SAT 99
--- NOTE | 2022-05-27 22:19 | W.ED.EXTPRO ---
HPI - Extremity Problem General: Chief complaint: Extremity Problem,Nontraumatic Stated complaint: right shoulder pain Time Seen by Provider: 05/27/22 21:19 History of Present Illness: Patient is a 57-year-old male who comes to the ED with right deltoid pain. Patient was seen here in the ED 2 days ago on May 25 for muscle spasms he received a shot of Toradol and is right deltoid. Since shot he has been having a lot of pain in his right deltoid muscle. Denies any rash around injection site, swelling or drainage. He rates the pain currently an 8 out of 10. He has a prescription for a muscle relaxer and prednisone at home. Associated symptoms: Deny chest pain, fever(s) or rash Review of Systems Const: Denies: fever(s), chills or fatigue Eyes: Denies: change in vision or eye discomfort ENMT: Denies: throat pain, odynophagia, nasal discharge or nasal congestion Card: Denies: chest pain, palpitations, edema, swelling of feet/ankles, dyspnea on exertion or orthopnea Resp: Denies: dyspnea, productive cough or non-productive cough GI: Denies: abdominal pain, nausea, vomiting, diarrhea, constipation or hematochezia : Denies: flank pain, difficulty urinating, dysuria or hematuria Musc: Reports: other (Right deltoid muscle soreness after shot.); Denies: neck pain, back pain or extremity swelling Skin/Breast: Denies: rash or new lesions Neuro: Denies: headache(s), numbness in extremities or weakness in extremities [facility] ED PFSH: Medical History Atypical chest pain Benign essential hypertension with target blood pressure below 140/90 Chronic low back pain Coronary artery disease Dyslipidemia Epilepsy Glucose intolerance Hypothyroidism Obesity Smoker Type 2 diabetes mellitus Surgical History H/O umbilical hernia repair History of appendectomy Family History Father , at age 74 Family history of premature coronary artery disease Had a myocardial infarction in his 40s. Diabetes CAD (coronary artery disease) Chronic kidney disease (CKD) Stroke Brother Family history of premature coronary artery disease CAD (coronary artery disease) Had [place] in the 50s Diabetes Stroke Grandmother CAD (coronary artery disease) Diabetes Grandfather CAD (coronary artery disease) Mother , at age 84 CAD (coronary artery disease) Cancer Diabetes COVID-19 Family/Other Lung disease Denies family history of Clotting disorder Dementia Suicide Anesthesia complication Bleeding disorder Social History Smoking and tobacco status: current every day smoker Alcohol intake: current Alcohol intake frequency: holidays/special occasions only Household members: spouse Housing: House Marital status: Current occupational status: disabled History of recent travel: No Physical Exam Const: COMMON NORMALS: no acute distress, patient oriented x3 and alert GENERAL APPEARANCE: cooperative and comfortable HENMT: COMMON NORMALS: normocephalic HEAD & SCALP: normocephalic MOUTH: Normal oral and palatal mucosa present THROAT: posterior oropharynx normal and uvula midline Neck/C-Spine: COMMON NORMALS: supple GENERAL: Yes normal visual inspection Resp: COMMON NORMALS: normal respiratory effort, No retractions, No use of accessory muscles and clear to auscultation bilaterally AUSCULTATION: clear to auscultation bilaterally Cardio: COMMON NORMALS: regular rate, regular rhythm, S1 normal heart sound present, S2 normal heart sound present, No gallops present (Cardio), No clicks present (Cardio), No murmurs present (Cardio) and Peripheral pulses 2+ throughout RATE: regular rate RHYTHM: regular rhythm HEART SOUNDS: S1 normal heart sound present and S2 normal heart sound present PERIPHERAL PULSES: Peripheral pulses 2+ throughout GI: COMMON NORMALS: Normal to inspection, nondistended, normoactive bowel sounds present, Soft to palpation, non-tender and no masses PALPATION: Yes Soft to palpation : COMMON NORMALS: Yes no CVA tenderness BLADDER/KIDNEY EXAM: Yes no CVA tenderness Back/Pelvis: COMMON NORMALS: no CVA tenderness Extremity: NARRATIVE EXTREMITY EXAM: Right upper arm deltoid injection site appears normal. No erythema, warmth, swelling or any discharge noted. Neuro: COMMON NORMALS: patient oriented x3 SENSORIUM/ORIENTATION: Yes alert GAIT: Yes Normal gait present Skin: GENERAL SKIN EXAM: dry skin Course Vital Signs: Vital signs: Vital Signs Temperature 97.9 F 05/27/22 21:08 Pulse Rate 99 05/27/22 21:08 Respiratory Rate 18 05/27/22 21:08 Blood Pressure 165/98 05/27/22 21:08 Pulse Oximetry 99 05/27/22 21:08 Oxygen Delivery Me thod 05/27/22 21:08 MDM - Extremity (Nontraumatic) Medical Decision Making Patient is a 57-year-old male who comes to the ED with right deltoid pain. Patient was seen here in the ED 2 days ago on May 25 for muscle spasms he received a shot of Toradol and is right deltoid. Since shot he has been having a lot of pain in his right deltoid muscle. Denies any rash around injection site, swelling or drainage. He rates the pain currently an 8 out of 10. Vitals are stable. Right upper arm deltoid injection site appears normal. No erythema, warmth, swelling or any discharge noted. Patient was given dose of tramadol here in the ED and discharged home. Diagnosed with muscle soreness from IM med given 2 days ago. He was told to continue taking his previously prescribed muscle relaxer and pain medicine. Patient understood and agreed with plan. Discharge Plan Discharge Patient Disposition: Home Clinical Impression: Muscle soreness Condition: Stable Prescriptions: No Action venlafaxine 75 mg capsule,extended release 24hr 75 mg PO DAILY glipizide 5 mg tablet 5 mg PO DAILY@0700 spironolactone 50 mg tablet 50 mg PO DAILY metformin 1,000 mg tablet extended release 24hr 1,000 mg PO BID@0700,1900 Hold Instructions: Resume on 07/13/20. May restart this medication on 13 of July levothyroxine 150 mcg capsule 250 mcg PO DAILY baclofen 10 mg tablet 10 mg PO BID PRN allopurinol 100 mg tablet 100 mg PO DAILY nitroglycerin 0.4 mg tablet, sublingual 0.4 mg SUBLINGUAL Q5M PRN (Reason: chest pain) 30 Days Qty: 30 3RF Rx Instructions: until response; do not exceed 3 doses per episode Plavix 75 mg tablet 75 mg PO DAILY@0700 Qty: 90 3RF aspirin 81 mg tablet,chewable 81 mg PO DAILY@0700 Qty: 90 3RF fenofibrate 54 mg tablet 54 mg PO DAILY Qty: 90 3RF rosuvastatin 10 mg tablet 10 mg PO DAILY Qty: 100 3RF metoprolol tartrate 25 mg tablet 25 mg PO BID@0700,1900 Qty: 180 2RF levetiracetam 750 mg tablet for suspension 750 mg PO BID 90 Days Qty: 180 3RF lisinopril 40 mg tablet 40 mg PO DAILY Tylenol Arthritis Pain 650 mg tablet extended release 650 mg PO Q8H PRN (Reason: pain) Qty: 30 0RF ketorolac 10 mg tablet 10 mg PO TID PRN (Reason: pain) 5 Days Qty: 15 0RF methocarbamol 500 mg tablet 500 mg PO Q6H 10 Days Qty: 40 0RF prednisone 50 mg tablet 50 mg PO DAILY 5 Days Qty: 5 0RF Discharge Orders: Discharge ED (Routine); Ordered 05/27/22 Ordered By: Sadiq Villalobos Referrals: Dorita Flaherty FNP [Primary Care Provider] - Discharge Diet: Regular Discharge Activity: Increase activity as tolerated Activity Restrictions/Additional Instructions: Follow-up with medical provider as directed. Continue taking all home medications as previously prescribed. Return to the ER or your medical provider if condition worsens. Please read and understand discharge instructions. Thank you for choosing [facility] for your healthcare needs today. Please realize this is an emergency room and that we are providing you with a medical screening exam and this may not be complete and all inclusive of all the testing and or work up that you may need to determine your ailment or severity of your illness. It is very important that you follow up as instructed or that you return to the Emergency Department should you have concerns or if your condition changes or worsens in any way. Coding Level of Care Code ED Tool Crib Manager for Marva Bunn Exam Comprehensive
[2022-05-27] MEDS: TRAMadol 50 mg Tablet 100 MG PO (22:28)
== END 2022-05-27 22:32 | disposition home or self-care (01) ==
PROVIDERS: Emergency Provider Physician Assistant; PCP Nurse Practitioner Family
DX: M79.10 Myalgia, unspecified site (principal); Z79.84 Long term (current) use of oral hypoglycemic drugs; Z79.02 Long term (current) use of antithrombotics/antiplatelets; Z79.82 Long term (current) use of aspirin; F17.210 Nicotine dependence, cigarettes, uncomplicated; I10 Essential (primary) hypertension; I25.10 Atherosclerotic heart disease of native coronary artery without angina pectoris; E78.5 Hyperlipidemia, unspecified; E11.9 Type 2 diabetes mellitus without complications
CPT/HCPCS: 99282

== ENCOUNTER → 2022-06-10 08:03 | Outpatient (BNVA) | payer MEDICAID, SELFPAY | PROVIDERS: PCP Nurse Practitioner Family; Referring Provider Nurse Practitioner Family; Visit Provider Internal Medicine | DX: R79.89 Other specified abnormal findings of blood chemistry (principal); E03.8 Other specified hypothyroidism; E06.3 Autoimmune thyroiditis; Z79.890 Hormone replacement therapy; Z79.84 Long term (current) use of oral hypoglycemic drugs | CPT/HCPCS: 36415; 84402; 84403; 99204 ==

== ENCOUNTER 2022-06-20 10:45 | Outpatient (CLI) | payer MEDICAID, SELFPAY ==
[2022-06-20 11:36] LABS: Free T4 Free Thyroxine 1.19 ng/dL (0.82-1.77)
== END 2022-06-20 10:46 | disposition home or self-care (01) ==
LOC: LAB 10:48
PROVIDERS: PCP Nurse Practitioner Family; Visit Provider Internal Medicine
DX: E03.8 Other specified hypothyroidism (principal); E06.3 Autoimmune thyroiditis
CPT/HCPCS: 36415; 84439

== ENCOUNTER → 2022-08-08 14:19 | Outpatient (BNVA) | payer MEDICAID, SELFPAY | PROVIDERS: PCP Nurse Practitioner Family; Visit Provider Internal Medicine | DX: E03.8 Other specified hypothyroidism (principal); E06.3 Autoimmune thyroiditis; Z79.890 Hormone replacement therapy | CPT/HCPCS: 36415; 84439; 84443; 84480; 99213 ==

== ENCOUNTER 2022-08-25 01:44 | Emergency (ER) | payer MEDICAID, SELFPAY ==
[2022-08-25 02:06] VITALS: BP 124/79; PULSE 89; RESP 18; TEMP 36.8; O2SAT 99; BMI 32.3
[2022-08-25 03:43] LABS: Basophils # 0.1 10^3/uL (0.0-0.1); Basophils % 0.8 %; Eosinophils # 0.3 10^3/uL (0.0-0.8); Eosinophils % 4.2 %; Hematocrit 38.8 % (42.0-52.0); Hemoglobin 12.9 g/dL (11.7-16.6); Lymphocytes # 1.1 10^3/uL (0.8-4.8); Lymphocytes % 14.3 %; Mean Corpuscular HGB Conc 33.2 g/dL (30.0-36.0); Mean Corpuscular Hemoglobin 30.5 pg (28.0-34.0); Mean Corpuscular Volume 91.7 fl (80-94); Mean Platelet Volume 11.3 fL (7.4-10.4); Monocytes # 0.8 10^3/uL (0.2-0.9); Monocytes % 10.4 %; Neutrophils # 5.16 10^3/uL (1.8-7.7); Neutrophils % 69.9 %; Nucleated Red Blood Cells % 0 %; Platelet Count 100 10^3/cmm (130-400); Red Blood Count 4.23 10^6/uL (4.1-5.3); White Blood Count 7.4 10^3/uL (4.0-10.0)
[2022-08-25 04:09] LABS: Alanine Aminotransferase 29 U/L (0-41); Albumin Level 3.8 g/dL (3.5-5.2); Alkaline Phosphatase 95 U/L (40-130); Anion Gap 16.2 (5-19); Aspartate Amino Transferase 42 U/L (0-40); Blood Urea Nitrogen 16 mg/dL (6-20); Calcium 9.5 mg/dL (8.5-10.5); Carbon Dioxide 24 mmol/L (22-29); Chloride 100 mmol/L (98-107); Globulin 3.8 g/dL (1.3-4.6); Glomerular Filtration Rate 52.6 mL/min (90-130); Glucose 121 mg/dL (65-115); Lipase 65 U/L (13-60); Osmolality Calculated 284 mOsm/kg (285-295); Potassium 4.2 mmol/L (3.5-5.1); Sodium 136 mmol/L (136-145); Total Bilirubin 0.8 mg/dL (0.15-1.2); Total Protein 7.6 g/dL (6.6-8.7)
[2022-08-25 04:43] VITALS: BP 123/78; PULSE 82; RESP 14; O2SAT 97
[2022-08-25] MEDS: ondansetron 2 mg/ML SDV 2 mL 8 MG IVP (05:13)
[2022-08-25] MEDS: sodium chloride 0.9% 1,000 ML 999 ML IV (05:13)
[2022-08-25 05:32] LABS: SARS Covid-2 Antigen negative (Negative)
--- NOTE | 2022-08-25 05:35 | ED_ITS ---
HPI - Nausea/Vomiting/Diarrhea General: Chief complaint: Nausea/Vomiting/Diarrhea Stated complaint: n/v/d Time Seen by Provider: 08/25/22 04:42 Source: patient History of Present Illness: 57-year-old gentleman well-known to the ER. He presents with vomiting and diarrhea for the past several hours. No belly pain. No blood in the stool or vomit. No chest pain. He was concerned, as he is post to give communion at [employer] this morning, and did not want to get anyone sick. MD elicited complaint: nausea, vomiting and diarrhea Onset (ago): hour(s) Description of vomiting: watery Description of diarrhea: watery Associated nausea: Yes Associated abdominal pain: No Location of pain: None Quality: cramping Exacerbating factors: eating Relieving factors: none Associated symtoms: Reports fatigue and nausea; Denies chest pain, cough, dizziness, dysuria, fevers/chills or weakness Review of Systems Const: Reports: fatigue; Denies: fever(s) ENMT: Denies: throat pain Card: Denies: chest pain Resp: Denies: dyspnea, productive cough or non-productive cough GI: Reports: nausea, vomiting and diarrhea : Denies: dysuria Neuro: Denies: dizziness PFSH ED PFSH: Medical History Atypical chest pain Benign essential hypertension with target blood pressure below 140/90 Chronic low back pain Coronary artery disease Dyslipidemia Epilepsy Glucose intolerance Hypothyroidism Obesity Smoker Type 2 diabetes mellitus Surgical History H/O umbilical hernia repair History of appendectomy Family History Father , at age 74 Family history of premature coronary artery disease Had a myocardial infarction in his 40s. Diabetes CAD (coronary artery disease) Chronic kidney disease (CKD) Stroke Brother Family history of premature coronary artery disease CAD (coronary artery disease) Had [place] in the 50s Diabetes Stroke Grandmother CAD (coronary artery disease) Diabetes Grandfather CAD (coronary artery disease) Mother , at age 84 CAD (coronary artery disease) Cancer Diabetes COVID-19 Family/Other Lung disease Denies family history of Clotting disorder Dementia Suicide Anesthesia complication Bleeding disorder Social History Smoking and tobacco status: current every day smoker Alcohol intake: current Alcohol intake frequency: holidays/special occasions only Household members: spouse Housing: House Marital status: Current occupational status: disabled Physical Exam Const: COMMON NORMALS: no acute distress GENERAL APPEARANCE: cooperative; not ill appearing and not frail appearing HENMT: COMMON NORMALS: normocephalic, atraumatic and Normal external nose present HEAD & SCALP: normocephalic and atraumatic FACE & SINUS: normal facial exam and face symmetric NOSE: Normal external nose present Eye: COMMON NORMALS: Equal, round and reactive pupils present and EOMs intact bilaterally PUPIL: Yes Equal, round and reactive pupils present Neck/C-Spine: GENERAL: Yes trachea midline Chest: CHEST: Yes Symmetrical chest wall rise Resp: COMMON NORMALS: normal respiratory effort, No retractions, No use of accessory muscles and clear to auscultation bilaterally AUSCULTATION: clear to auscultation bilaterally Cardio: COMMON NORMALS: regular rate and regular rhythm RATE: regular rate RHYTHM: regular rhythm GI: COMMON NORMALS: Normal to inspection, nondistended, normoactive bowel sounds present Extremity: COMMON NORMALS: no pedal edema Neuro: CANDY COMA SCALE: document GCS findings [place] coma scale eye opening: Spontaneous Candy coma scale verbal response: Orientated [place] coma scale motor response: Obey commands [place] coma scale total score: 15 SENSORY EXAM: Yes extremities (intact) Psych: COMMON NORMALS: speech normal SPEECH: Yes normal speech Skin: COMMON NORMALS: no rashes or lesions noted GENERAL SKIN EXAM: no rashes or lesions noted Course Vital Signs: Vital signs: Vital Signs Temperature 98.2 F 08/25/22 02:06 Pulse Rate 88 08/25/22 05:53 Respiratory Rate 16 08/25/22 05:53 Blood Pressure 108/71 08/25/22 05:53 Pulse Oximetry 96 08/25/22 05:53 Oxygen Delivery Me thod Room Air 08/25/22 04:43 MDM - Nausea/Vomiting/Diarrhea Medical Decision Making Vitals are stable. CBC is essentially normal except for mild thrombocytopenia which is stable for the patient. Patient's creatinine is 1.4 which is essentially his baseline. Laboratory is otherwise benign. Lipase is minimally elevated indicative of vomiting. COVID-19 is negative. He is given a liter of fluid and Zofran, and is feeling improved. He will be allowed discharge. Lab Data 08/25/22 03:34 08/25/22 03:34 Laboratory Results WBC 7.4 10^3/uL (4.0-10.0) 08/25/22 03:34 RBC 4.23 10^6/uL (4.1-5.3) 08/25/22 03:34 Hgb 12.9 g/dL (11.7-16.6) 08/25/22 03:34 Hct 38.8 % (42.0-52.0) L 08/25/22 03:34 MCV 91.7 fl (80-94) 08/25/22 03:34 MCH 30.5 pg (28.0-34.0) 08/25/22 03:34 MCHC 33.2 g/dL (30.0-36.0) 08/25/22 03:34 RDW 13.0 % (12.1-15.1) 08/25/22 03:34 Plt Count 100 10^3/cmm (130-400) L 08/25/22 03:34 MPV 11.3 fL (7.4-10.4) H 08/25/22 03:34 Neut % (Auto) 69.9 % 08/25/22 03:34 Lymph % (Auto) 14.3 % 08/25/22 03:34 [place] % (Auto) 10.4 % 08/25/22 03:34 Eos % (Auto) 4.2 % 08/25/22 03:34 Baso % (Auto) 0.8 % 08/25/22 03:34 Neut # (Auto) 5.16 10^3/uL (1.8-7.7) 08/25/22 03:34 Lymph # (Auto) 1.1 10^3/uL (0.8-4.8) 08/25/22 03:34 [place] # (Auto) 0.8 10^3/uL (0.2-0.9) 08/25/22 03:34 Eos # (Auto) 0.3 10^3/uL (0.0-0.8) 08/25/22 03:34 Baso # (Auto) 0.1 10^3/uL (0.0-0.1) 08/25/22 03:34 Nucleated RBC % (auto) 0 % 08/25/22 03:34 Nucleated RBCs # 0.0 /100WBC 08/25/22 03:34 Sodium 136 mmol/L (136-145) 08/25/22 03:34 Potassium 4.2 mmol/L (3.5-5.1) 08/25/22 03:34 Chloride 100 mmol/L (98-107) 08/25/22 03:34 Carbon Dioxide 24 mmol/L (22-29) 08/25/22 03:34 Anion Gap 16.2 (5-19) 08/25/22 03:34 BUN 16 mg/dL (6-20) 08/25/22 03:34 Creatinine 1.4 mg/dL (0.7-1.2) H 08/25/22 03:34 GFR Calculation 52.6 mL/min (90-130) L 08/25/22 03:34 Glucose 121 mg/dL (65-115) H 08/25/22 03:34 Calculated Osmolality 284 mOsm/kg (285-295) L 08/25/22 03:34 Calcium 9.5 mg/dL (8.5-10.5) 08/25/22 03:34 Total Bilirubin 0.8 mg/dL (0.15-1.2) 08/25/22 03:34 AST 42 U/L (0-40) H 08/25/22 03:34 ALT 29 U/L (0-41) 08/25/22 03:34 Alkaline Phosphatase 95 U/L (40-130) 08/25/22 03:34 Total Protein 7.6 g/dL (6.6-8.7) 08/25/22 03:34 Albumin 3.8 g/dL (3.5-5.2) 08/25/22 03:34 Globulin 3.8 g/dL (1.3-4.6) 08/25/22 03:34 Lipase 65 U/L (13-60) H 08/25/22 03:34 SARS-CoV-2 Ag (Rapid) negative (Negative) 08/25/22 04:56 Discharge Plan Discharge Patient Disposition: Home Clinical Impression: Gastroenteritis Condition: Stable Prescriptions: New ondansetron 4 mg film 4 mg PO DAILY PRN (Reason: nausea and vomiting) Qty: 10 0RF No Action venlafaxine 75 mg capsule,extended release 24hr 75 mg PO DAILY glipizide 5 mg tablet 5 mg PO DAILY@0700 spironolactone 50 mg tablet 50 mg PO DAILY metformin 1,000 mg tablet extended release 24hr 1,000 mg PO BID@0700,1900 Hold Instructions: Resume on 07/13/20. May restart this medication on 13 of July baclofen 10 mg tablet 10 mg PO BID PRN allopurinol 100 mg tablet 100 mg PO DAILY nitroglycerin 0.4 mg tablet, sublingual 0.4 mg SUBLINGUAL Q5M PRN (Reason: chest pain) 30 Days Qty: 30 3RF Rx Instructions: until response; do not exceed 3 doses per episode Plavix 75 mg tablet 75 mg PO DAILY@0700 Qty: 90 3RF aspirin 81 mg tablet,chewable 81 mg PO DAILY@0700 Qty: 90 3RF fenofibrate 54 mg tablet 54 mg PO DAILY Qty: 90 3RF rosuvastatin 10 mg tablet 10 mg PO DAILY Qty: 100 3RF metoprolol tartrate 25 mg tablet 25 mg PO BID@0700,1900 Qty: 180 2RF levetiracetam 500 mg tablet See Rx Instructions .ROUTE .COMPLEX Qty: 180 3RF Dose Instruction: TAKE 1 TABLET BY MOUTH TWO TIMES A DAY FOR SEIZURE Rx Instructions: TAKE 1 TABLET BY MOUTH TWO TIMES A DAY FOR SEIZURE levothyroxine 150 mcg capsule 150 mcg PO DAILY lisinopril 40 mg tablet 40 mg PO DAILY Tylenol Arthritis Pain 650 mg tablet extended release 650 mg PO Q8H PRN (Reason: pain) Qty: 30 0RF Discharge Orders: Discharge ED (Routine); Ordered 08/25/22 Ordered By: Khadar Beyer Referrals: Dorita Flaherty FNP [Primary Care Provider] - 1-3 days Patient Instructions: Gastroenteritis (ED) Activity Restrictions/Additional Instructions: We would advise you stay home from [employer] this morning. Take nausea medication every 4 hours scheduled while awake for the first 24 hours, then as needed. Follow a liquid diet for the next 12 hours, then advance slowly. Return for worsening symptoms. Coding Level of Care Code ED [id number] Engineer for Marva Bunn
[2022-08-25 05:53] VITALS: BP 108/71; PULSE 88; RESP 16; O2SAT 96
== END 2022-08-25 05:53 | disposition home or self-care (01) ==
PROVIDERS: Emergency Provider Emergency Medicine; PCP Nurse Practitioner Family
DX: K52.9 Noninfective gastroenteritis and colitis, unspecified (principal); Z79.82 Long term (current) use of aspirin; Z79.02 Long term (current) use of antithrombotics/antiplatelets; Z79.84 Long term (current) use of oral hypoglycemic drugs; Z20.822 Contact with and (suspected) exposure to COVID-19; F17.210 Nicotine dependence, cigarettes, uncomplicated; I10 Essential (primary) hypertension; I25.10 Atherosclerotic heart disease of native coronary artery without angina pectoris; E78.5 Hyperlipidemia, unspecified; E11.9 Type 2 diabetes mellitus without complications
CPT/HCPCS: 80053; 83690; 85025; 87426; 96361; 96374; 99284; J2405; J7030

== ENCOUNTER 2022-08-27 07:15 | Emergency (ER) | payer MEDICAID, SELFPAY ==
[2022-08-27 07:23] VITALS: BP 143/97; PULSE 92; TEMP 36.6; O2SAT 97; BMI 33.0
--- NOTE | 2022-08-27 07:30 | ED_ITS ---
HPI - Seizure General: Chief Complaint: Seizure Stated Complaint: feels like hes going to have a seizure Time Seen by Provider: 08/27/22 07:20 Source: patient Mode of arrival: ambulatory History of Present Illness: HPI Narrative: 57-year-old male presents emergency room complaining of aura of seizure. He states he has not had a seizure in 20 years he felt all night like he was about to have 1 but never actually had a seizure. After close discussion with the patient it sounds like he had once been on Depakote and increase his Keppra from 500 twice daily to 750 twice daily and stop the Depakote. He took Depakote 750 for a month when he went to get his refill he states his second bottle was 500 twice daily. He had the bottle in hand and showed it to me and does not needs a 500 twice daily it was filled on 08/14/2022. MD complaint: feels seizure coming on Onset (ago): hour(s) Trauma: No Seizure History: Yes Place: Home Possible Precipitating Event: medication (Possible dose change) Associated symptoms: Deny chest pain, chills, confusion, cough, diaphoresis, fever(s), anorexia, malaise, rash, short of breath, syncope or weakness Treatments prior to arrival: none Review of Systems Const: Denies: fever(s), chills, fatigue, malaise or diaphoresis ENMT: Denies: throat pain, ear or mastoid pain, nasal discharge or nasal congestion Card: Denies: chest pain or syncope Resp: Denies: dyspnea, productive cough or non-productive cough GI: Denies: abdominal pain, nausea, vomiting, hematemesis, coffee ground emesis, diarrhea, constipation, bloating, hematochezia or melena : Denies: flank pain, dysuria, urinary frequency or urinary urgency Skin/Breast: Denies: rash or pruritus Neuro: Denies: confusion PFSH ED PFSH: Medical History Atypical chest pain Benign essential hypertension with target blood pressure below 140/90 Chronic low back pain Coronary artery disease Dyslipidemia Epilepsy Glucose intolerance Hypothyroidism Obesity Smoker Type 2 diabetes mellitus Surgical History H/O umbilical hernia repair History of appendectomy Family History Father , at age 74 Family history of premature coronary artery disease Had a myocardial infarction in his 40s. Diabetes CAD (coronary artery disease) Chronic kidney disease (CKD) Stroke Brother Family history of premature coronary artery disease CAD (coronary artery disease) Had [place] in the 50s Diabetes Stroke Grandmother CAD (coronary artery disease) Diabetes Grandfather CAD (coronary artery disease) Mother , at age 84 CAD (coronary artery disease) Cancer Diabetes COVID-19 Family/Other Lung disease Denies family history of Clotting disorder Dementia Suicide Anesthesia complication Bleeding disorder Social History Smoking and tobacco status: current every day smoker Alcohol intake: current Alcohol intake frequency: holidays/special occasions only Household members: spouse Housing: House Marital status: Current occupational status: disabled Physical Exam Const: GENERAL APPEARANCE: cooperative and comfortable ORIENTATION/CONSCIOUSNESS: Yes awake, Yes oriented to person, Yes oriented to place and Yes oriented to time HENMT: COMMON NORMALS: normocephalic, atraumatic and hearing grossly normal bilaterally HEAD & SCALP: normocephalic and atraumatic Resp: COMMON NORMALS: normal respiratory effort, No retractions, No use of accessory muscles and clear to auscultation bilaterally AUSCULTATION: clear to auscultation bilaterally Cardio: COMMON NORMALS: regular rate, regular rhythm and No murmurs present (Cardio) RATE: regular rate RHYTHM: regular rhythm GI: COMMON NORMALS: Soft to palpation and No hepatosplenomegaly present AUSCULTATION: Yes normoactive bowel sounds PALPATION: Yes Soft to palpation, No Tenderness to palpation present (GI), No Guarding due to palpation present (GI) and Yes No hepatosplenomegaly present Extremity: COMMON NORMALS: normal to inspection, capillary refill normal, no clubbing, cyanosis or edema, no calf tenderness and no pedal edema Neuro: SENSORIUM/ORIENTATION: Yes oriented to person, Yes oriented to place and Yes oriented to time Skin: COMMON NORMALS: no rashes or lesions noted GENERAL SKIN EXAM: no rashes or lesions noted Course Vital Signs: Vital signs: Vital Signs Temperature 98 F 08/27/22 07:23 Pulse Rate 92 04/18/23 07:23 Blood Pressure 143/97 04/18/23 07:23 Pulse Oximetry 97 08/27/22 07:23 Oxygen Delivery Me thod Room Air 08/27/22 07:23 MDM - Seizure MDM Narrative Medical decision making narrative: Reviewed office notes Dr. Parkinson sent in 750 mg twice a day with a years worth of refills at her last visit with the patient in February. The bottle that he showed me at the bedside is dated 08/14/2022 but is 500 mg tablets. At this point recommend he go back to the 750 twice a day he can use up to 500 mg tablets also gave him a prescription for 750s. We will contact Dr. Parkinson's office to make sure that she is aware of the issue. cable television technician reviewed the pharmacy log to reconcile and it does show the 500 mg dispense from the pharmacy. We will contact the pharmacy as well to see if we can find a discrepancy. Medical Records Attestation: I reviewed the patient's medical records. Lab Data Attestation: I reviewed the patient's lab results. Discharge Plan Discharge Patient Disposition: Home Clinical Impression: Seizure disorder Condition: Stable Prescriptions: New Keppra XR 750 mg tablet extended release 24 hr 1,500 mg PO DAILY Qty: 60 0RF Discontinued levetiracetam 500 mg tablet See Rx Instructions .ROUTE .COMPLEX Qty: 180 3RF Dose Instruction: TAKE 1 TABLET BY MOUTH TWO TIMES A DAY FOR SEIZURE Rx Instructions: TAKE 1 TABLET BY MOUTH TWO TIMES A DAY FOR SEIZURE No Action venlafaxine 75 mg capsule,extended release 24hr 75 mg PO DAILY glipizide 5 mg tablet 5 mg PO DAILY@0700 spironolactone 50 mg tablet 50 mg PO DAILY metformin 1,000 mg tablet extended release 24hr 1,000 mg PO BID@0700,1900 Hold Instructions: Resume on 07/13/20. May restart this medication on 13 of July baclofen 10 mg tablet 10 mg PO BID PRN allopurinol 100 mg tablet 100 mg PO DAILY nitroglycerin 0.4 mg tablet, sublingual 0.4 mg SUBLINGUAL Q5M PRN (Reason: chest pain) 30 Days Qty: 30 3RF Rx Instructions: until response; do not exceed 3 doses per episode Plavix 75 mg tablet 75 mg PO DAILY@0700 Qty: 90 3RF aspirin 81 mg tablet,chewable 81 mg PO DAILY@0700 Qty: 90 3RF fenofibrate 54 mg tablet 54 mg PO DAILY Qty: 90 3RF rosuvastatin 10 mg tablet 10 mg PO DAILY Qty: 100 3RF metoprolol tartrate 25 mg tablet 25 mg PO BID@0700,1900 Qty: 180 2RF levothyroxine 150 mcg capsule 150 mcg PO DAILY lisinopril 40 mg tablet 40 mg PO DAILY ondansetron 4 mg film 4 mg PO DAILY PRN (Reason: nausea and vomiting) Qty: 10 0RF Tylenol Arthritis Pain 650 mg tablet extended release 650 mg PO Q8H PRN (Reason: pain) Qty: 30 0RF Discharge Orders: Discharge ED (Routine); Ordered 08/27/22 Ordered By: Mendel Bush Referrals: Dorita Flaherty FNP [Primary Care Provider] - Discharge Diet: Usual diet Discharge Activity: Increase activity as tolerated Patient Instructions: Opioid Safety, Pain Management Activity Restrictions/Additional Instructions: Recommend you increase the Keppra back to 750 mg 2 tablets p.o. daily. Follow- up with Dr. Parkinson as previously scheduled. If you have any worsening or changes symptoms return to the emergency room. Coding Level of Care Code ED Designated Broker for Marva Bunn
[2022-08-27 08:26] VITALS: PULSE 96; O2SAT 98
[2022-08-27] MEDS: levETIRAcetam 500 mg Tablet 750 MG PO (08:33)
[2022-08-28 15:04] LABS: Levetiracetam Immunoassy 23.5 mcg/mL (6.0-46.0)
== END 2022-08-27 08:39 | disposition home or self-care (01) ==
PROVIDERS: Emergency Provider Family Medicine; PCP Nurse Practitioner Family
DX: G40.909 Epilepsy, unspecified, not intractable, without status epilepticus (principal); Z79.82 Long term (current) use of aspirin; Z79.02 Long term (current) use of antithrombotics/antiplatelets; Z79.84 Long term (current) use of oral hypoglycemic drugs; F17.210 Nicotine dependence, cigarettes, uncomplicated; I10 Essential (primary) hypertension; I25.10 Atherosclerotic heart disease of native coronary artery without angina pectoris; E78.5 Hyperlipidemia, unspecified; E11.9 Type 2 diabetes mellitus without complications
CPT/HCPCS: 80177; 99284

== ENCOUNTER 2022-08-28 20:31 | Emergency (ER) | payer MEDICAID, SELFPAY ==
[2022-08-28 20:37] VITALS: BP 153/90; PULSE 108; TEMP 36.6; O2SAT 100; BMI 31.5
--- NOTE | 2022-08-28 20:41 | XRR_ITS ---
PROCEDURE INFORMATION: Exam: XR Left Hand Exam date and time: 08/28/2022 8:52 PM Age: 57 years old Clinical indication: Pain; Hand; Left; Additional info: Injury, fell TECHNIQUE: Imaging protocol: Radiologic exam of the left hand. Views: 3 or more views. COMPARISON: No relevant prior studies available. FINDINGS: Bones/joints: Although seen on only one view, there appears to be a nondisplaced hairline fracture through the base of the 5th metacarpal. Mild degenerative changes in the interphalangeal joints. Soft tissues: Normal. XR/XR hand LT min 3V* [id number] IMPRESSION: Hairline fracture base of 5th metacarpal
--- NOTE | 2022-08-28 20:41 | W.ED.EXTPRO ---
HPI - Extremity Problem General: Chief complaint: Extremity Injury, Upper Stated complaint: Left Hand Injury Time Seen by Provider: 08/28/22 20:41 History of Present Illness: 57-year-old male patient comes in today with injury to the left hand. Patient reports he was walking out of the [employer] restaurant and tripped and fell causing him to strike his hand against the door frame. Patient reports pain and discomfort to the fifth metacarpal area. No obvious deformity is noted. Minor swelling is noted. Associated symptoms: Deny chest pain, fever(s) or rash Review of Systems General: Reports: 10 or more systems reviewed and unremarkable except in HPI and below Const: Denies: fever(s) Card: Denies: chest pain Resp: Denies: dyspnea GI: Denies: nausea, vomiting, diarrhea or constipation : Denies: difficulty urinating Musc: Reports: extremity pain Skin/Breast: Denies: rash Neuro: Denies: headache(s) PFSH ED PFSH: Medical History Atypical chest pain Benign essential hypertension with target blood pressure below 140/90 Chronic low back pain Coronary artery disease Dyslipidemia Epilepsy Glucose intolerance Hypothyroidism Obesity Smoker Type 2 diabetes mellitus Surgical History H/O umbilical hernia repair History of appendectomy Family History Father , at age 74 Family history of premature coronary artery disease Had a myocardial infarction in his 40s. Diabetes CAD (coronary artery disease) Chronic kidney disease (CKD) Stroke Brother Family history of premature coronary artery disease CAD (coronary artery disease) Had [place] in the 50s Diabetes Stroke Grandmother CAD (coronary artery disease) Diabetes Grandfather CAD (coronary artery disease) Mother , at age 84 CAD (coronary artery disease) Cancer Diabetes COVID-19 Family/Other Lung disease Denies family history of Clotting disorder Dementia Suicide Anesthesia complication Bleeding disorder Social History Smoking and tobacco status: current every day smoker Alcohol intake: current Alcohol intake frequency: holidays/special occasions only Household members: spouse Housing: House Marital status: Current occupational status: disabled Physical Exam Const: COMMON NORMALS: alert HENMT: COMMON NORMALS: normocephalic HEAD & SCALP: normocephalic Neck/C-Spine: COMMON NORMALS: full ROM Chest: COMMONS NORMALS: normal inspection of the chest Resp: COMMON NORMALS: normal respiratory effort and clear to auscultation bilaterally AUSCULTATION: clear to auscultation bilaterally Cardio: COMMON NORMALS: regular rate and regular rhythm RATE: regular rate RHYTHM: regular rhythm GI: COMMON NORMALS: non-tender Extremity: LEFT UPPER EXTREMITY: Yes hand & digits (Mild dorsal swelling and tenderness to the fifth metacarpal area) Neuro: SENSORIUM/ORIENTATION: Yes alert Skin: COMMON NORMALS: turgor normal GENERAL SKIN EXAM: turgor normal Course Vital Signs: Vital signs: Vital Signs Temperature 97.8 F 08/28/22 20:37 Pulse Rate 108 H 08/28/22 20:37 Blood Pressure 153/90 08/28/22 20:37 Pulse Oximetry 100 08/28/22 20:37 Oxygen Delivery Me thod Room Air 08/28/22 20:37 MDM - Extremity (Nontraumatic) Medical Decision Making 57-year-old male patient comes in today with injury to the left hand. On exam patient has some tenderness and mild swelling to the hand. Normal range of motion of the hand is noted. Distal cap refill is intact. Differential diagnosis includes but not limited to fracture, sprain, contusion. X-ray has an area of suspicion at the base of the fifth metacarpal appearing to be a nondisplaced fracture. I reviewed this with Dr. Jeter who agreed and recommended splinting and follow-up with orthopedics. Patient was informed of the abnormality on the x-ray with recommendations. Patient reported understanding and agreed to plan. Discharge Plan Discharge Patient Disposition: Home Clinical Impression: Fracture of base of fifth metacarpal bone of left hand Qualifiers: Encounter type: initial encounter Fracture type: closed Fracture alignment: nondisplaced Qualified Code(s): S62.347A - Nondisplaced fracture of base of fifth metacarpal bone, left hand, initial encounter for closed fracture Condition: Stable Prescriptions: New hydrocodone-acetaminophen 5-325 mg tablet 1 tab PO Q8H PRN (Reason: pain (scale score 7-10)) Qty: 7 0RF No Action venlafaxine 75 mg capsule,extended release 24hr 75 mg PO DAILY glipizide 5 mg tablet 5 mg PO DAILY@0700 spironolactone 50 mg tablet 50 mg PO DAILY metformin 1,000 mg tablet extended release 24hr 1,000 mg PO BID@0700,1900 Hold Instructions: Resume on 07/13/20. May restart this medication on 13 of July baclofen 10 mg tablet 10 mg PO BID PRN allopurinol 100 mg tablet 100 mg PO DAILY nitroglycerin 0.4 mg tablet, sublingual 0.4 mg SUBLINGUAL Q5M PRN (Reason: chest pain) 30 Days Qty: 30 3RF Rx Instructions: until response; do not exceed 3 doses per episode Plavix 75 mg tablet 75 mg PO DAILY@0700 Qty: 90 3RF aspirin 81 mg tablet,chewable 81 mg PO DAILY@0700 Qty: 90 3RF fenofibrate 54 mg tablet 54 mg PO DAILY Qty: 90 3RF rosuvastatin 10 mg tablet 10 mg PO DAILY Qty: 100 3RF metoprolol tartrate 25 mg tablet 25 mg PO BID@0700,1900 Qty: 180 2RF levothyroxine 150 mcg capsule 150 mcg PO DAILY lisinopril 40 mg tablet 40 mg PO DAILY ondansetron 4 mg film 4 mg PO DAILY PRN (Reason: nausea and vomiting) Qty: 10 0RF Tylenol Arthritis Pain 650 mg tablet extended release 650 mg PO Q8H PRN (Reason: pain) Qty: 30 0RF Keppra XR 750 mg tablet extended release 24 hr 1,500 mg PO DAILY Qty: 60 0RF Discharge Orders: Discharge ED (Routine); Ordered 08/28/22 Ordered By: Alexis Brian Referrals: Dorita Flaherty FNP [Primary Care Provider] - Discharge Diet: Usual diet Discharge Activity: Increase activity as tolerated Patient Instructions: Hand Fracture (ED) Activity Restrictions/Additional Instructions: Keep splint clean and dry. Activity as tolerated. Limit activity to affected hand. Follow-up with primary care as needed. Case management will contact you regarding follow-up appointment with video production specialist. Return to ER for new concerns. Coding Level of Care Code ED Pst Supervisor for Marva Bunn
[2022-08-28] MEDS: acetaminophen 500 mg Tablet PO (21:04)
[2022-08-28] MEDS: ibuprofen 200 mg Tablet 400 MG PO (21:04)
--- NOTE | 2022-08-29 08:04 | DCPLANNER ---
Addendum entered by Kira Cerna 09/05/22 08:56: Patient had a follow up appointment scheduled with ortho - patient did attend appointment. Addendum entered by Kira Cerna 08/30/22 07:45: Patient has a follow up appointment scheduled for Sunday, September 04, 2022 at 3:[address] Ramirez at ortho. Original Note: airport duty manager had message to schedule a follow up appointment for patient with ortho. airport duty manager sent patients information to the front office staff at ortho. Patients information will be printed and reviewed. Clinic will call patient with appointment information.
== END 2022-08-28 21:41 | disposition home or self-care (01) ==
PROVIDERS: Emergency Provider Nurse Practitioner Family; PCP Nurse Practitioner Family
DX: S62.347A Nondisplaced fracture of base of fifth metacarpal bone, left hand, initial encounter for closed fracture (principal); Z79.82 Long term (current) use of aspirin; Z79.02 Long term (current) use of antithrombotics/antiplatelets; Z79.84 Long term (current) use of oral hypoglycemic drugs; F17.210 Nicotine dependence, cigarettes, uncomplicated; I25.10 Atherosclerotic heart disease of native coronary artery without angina pectoris; E78.5 Hyperlipidemia, unspecified; E11.9 Type 2 diabetes mellitus without complications; W01.0XXA Fall on same level from slipping, tripping and stumbling without subsequent striking against object, initial encounter; Y92.511 Restaurant or cafe as the place of occurrence of the external cause; I10 Essential (primary) hypertension
CPT/HCPCS: 73130; 99283

== ENCOUNTER 2022-09-04 16:02 | Outpatient (CLI) | payer MEDICAID, SELFPAY | END 2022-09-04 16:03 | disposition home or self-care (01) | LOC: SPT 16:04 | PROVIDERS: PCP Nurse Practitioner Family; Visit Provider Orthopaedic Surgery | DX: Z46.89 Encounter for fitting and adjustment of other specified devices (principal); S62.347D Nondisplaced fracture of base of fifth metacarpal bone, left hand, subsequent encounter for fracture with routine healing; X58.XXXD Exposure to other specified factors, subsequent encounter | CPT/HCPCS: 26600; 97760; L3984 ==

== ENCOUNTER 2022-09-20 14:55 | Emergency (ER) | payer MEDICAID, SELFPAY ==
--- NOTE | 2022-09-20 14:57 | XRR_ITS ---
PROCEDURE INFORMATION: Exam: XR Chest Exam date and time: 09/20/2022 3:37 PM Age: 57 years old Clinical indication: Pain; Other: Unspecified; Additional info: Chest kaden TECHNIQUE: Imaging protocol: Radiologic exam of the chest. Views: 1 view. COMPARISON: CR XR chest 1V portable [id number] 03/18/2022 11:21 PM FINDINGS: Lungs: Lungs are clear bilaterally. Pleural spaces: No pleural effusion. No pneumothorax. Heart/Mediastinum: The cardiac silhouette and mediastinal contours are unremarkable. Vasculature: Atherosclerotic changes in the visualized arteries. Bones/joints: Unremarkable for age. XR/XR chest 1V portable [id number] IMPRESSION: 1. No acute cardiopulmonary process. 2. Incidental/nonacute findings are listed in the report.
--- NOTE | 2022-09-20 14:58 | ECG_ITS ---
[facility] Test Date: 2022-09-20 Pat Name: Alonso Golden Department: Room: Gender: Male Distribution Tech: : [id number] Requested By: Alexis Whalen Order Number: [id number] Isabel Leroy MD: Vernon Guillaume M.D. Measurements Intervals [place] Rate: 101 P: 31 [place]: 155 QRS: -33 QRSD: 78 T: 57 QT: 357 QTc: 464 Interpretive Statements SINUS TACHYCARDIA LEFT AXIS DEVIATION [QRS AXIS < -30] PATTERN CONSISTENT WITH PULMONARY DISEASE Compared to ECG 01/29/2022 20:01:02 Sinus rhythm no longer present Myocardial infarct finding no longer present Electronically Signed On 09-20-2022 21:37:35 CDT by Vernon Guillaume M.D. [email or web address] [email or web address] lake joint [email or web address].I-[email or web address]/store/OM/[id number]
--- NOTE | 2022-09-20 14:59 | ED_ITS ---
HPI - Chest Pain General: Chief Complaint: Chest Pain Stated Complaint: Chest pain Time Seen by Provider: 09/20/22 14:56 History of Present Illness: 57-year-old male patient comes in today for complaints of some chest discomfort after helping carrying in some groceries for a friend. Patient appears nontoxic. Patient does have a history of coronary artery disease with stent placement. Patient also has a history of diabetes mellitus, intellectual disability, and depression. Associated symptoms: Deny dyspnea, fever(s), nausea or vomiting Review of Systems General: Reports: 10 or more systems reviewed and unremarkable except in HPI and below Const: Denies: fever(s) ENMT: Denies: throat pain Card: Reports: chest pain Resp: Denies: dyspnea GI: Denies: nausea, vomiting, diarrhea or constipation : Denies: difficulty urinating Musc: Denies: neck pain or back pain Skin/Breast: Denies: rash Neuro: Denies: headache(s) PFSH ED PFSH: Medical History Atypical chest pain Benign essential hypertension with target blood pressure below 140/90 Chronic low back pain Coronary artery disease Dyslipidemia Epilepsy Glucose intolerance Hypothyroidism Obesity Smoker Type 2 diabetes mellitus Surgical History H/O umbilical hernia repair History of appendectomy Family History Father , at age 74 Family history of premature coronary artery disease Had a myocardial infarction in his 40s. Diabetes CAD (coronary artery disease) Chronic kidney disease (CKD) Stroke Brother Family history of premature coronary artery disease CAD (coronary artery disease) Had [place] in the 50s Diabetes Stroke Grandmother CAD (coronary artery disease) Diabetes Grandfather CAD (coronary artery disease) Mother , at age 84 CAD (coronary artery disease) Cancer Diabetes COVID-19 Family/Other Lung disease Denies family history of Clotting disorder Dementia Suicide Anesthesia complication Bleeding disorder Social History Smoking and tobacco status: current every day smoker Alcohol intake: current Alcohol intake frequency: holidays/special occasions only Substance/Drug Use: never Household members: spouse Housing: House Marital status: Current occupational status: disabled Physical Exam Const: COMMON NORMALS: alert HENMT: COMMON NORMALS: normocephalic HEAD & SCALP: normocephalic Neck/C-Spine: COMMON NORMALS: full ROM Chest: COMMONS NORMALS: normal inspection of the chest Resp: COMMON NORMALS: normal respiratory effort and clear to auscultation bilaterally AUSCULTATION: clear to auscultation bilaterally Cardio: COMMON NORMALS: regular rate and regular rhythm RATE: regular rate RHYTHM: regular rhythm GI: COMMON NORMALS: Soft to palpation and non-tender PALPATION: Yes Soft to palpation : COMMON NORMALS: Yes no CVA tenderness BLADDER/KIDNEY EXAM: Yes no CVA tenderness Back/Pelvis: COMMON NORMALS: no CVA tenderness Extremity: COMMON NORMALS: no pedal edema Neuro: SENSORIUM/ORIENTATION: Yes alert Skin: COMMON NORMALS: turgor normal GENERAL SKIN EXAM: turgor normal Course Vital Signs: Vital signs: Vital Signs Temperature 99.4 F 09/20/22 15:13 Pulse Rate 90 09/20/22 15:50 Respiratory Rate 16 09/20/22 15:50 Blood Pressure 111/60 09/20/22 15:50 Pulse Oximetry 94 09/20/22 15:50 Oxygen Delivery Me thod Room Air 09/20/22 15:50 MDM - Chest Pain Medical Decision Making 57-year-old male patient comes in today with complaints of chest discomfort afte r carrying the incident groceries for some friends that occurred about a hour prior to arrival. Patient reports no significant pain at this time. Patient appears nontoxic. Respirations are even lungs are clear to auscultation. Patient does have a history of coronary artery disease. Differential diagnosis includes but not limited to ACS, stable angina, muscle strain. Laboratory values were normal except for some elevation in glucose of 288. Repeat 2-hour EKG and troponins were unchanged. Believe the patient might have some mild angina that is stable and not suggestive of ACS. Recommend follow-up with primary care or bartender for further evaluation and treatment. Patient reported understanding agreed to plan. Lab Data 09/20/22 14:58 09/20/22 14:58 Laboratory Results WBC 8.6 10^3/uL (4.0-10.0) 09/20/22 14:58 RBC 4.70 10^6/uL (4.1-5.3) 09/20/22 14:58 Hgb 13.9 g/dL (11.7-16.6) 09/20/22 14:58 Hct 42.5 % (42.0-52.0) 09/20/22 14:58 MCV 90.4 fl (80-94) 09/20/22 14:58 MCH 29.6 pg (28.0-34.0) 09/20/22 14:58 MCHC 32.7 g/dL (30.0-36.0) 09/20/22 14:58 RDW 13.1 % (12.1-15.1) 09/20/22 14:58 Plt Count 154 10^3/cmm (130-400) 09/20/22 14:58 MPV 11.4 fL (7.4-10.4) H 09/20/22 14:58 Neut % (Auto) 75.2 % 09/20/22 14:58 Lymph % (Auto) 14.2 % 09/20/22 14:58 [place] % (Auto) 6.5 % 09/20/22 14:58 Eos % (Auto) 2.9 % 09/20/22 14:58 Baso % (Auto) 1.0 % 09/20/22 14:58 Neut # (Auto) 6.49 10^3/uL (1.8-7.7) 09/20/22 14:58 Lymph # (Auto) 1.2 10^3/uL (0.8-4.8) 09/20/22 14:58 [place] # (Auto) 0.6 10^3/uL (0.2-0.9) 09/20/22 14:58 Eos # (Auto) 0.3 10^3/uL (0.0-0.8) 09/20/22 14:58 Baso # (Auto) 0.1 10^3/uL (0.0-0.1) 09/20/22 14:58 Nucleated RBC % (auto) 0 % 09/20/22 14:58 Nucleated RBCs # 0.0 /100WBC 09/20/22 14:58 Sodium 136 mmol/L (136-145) 09/20/22 14:58 Potassium 4.1 mmol/L (3.5-5.1) 09/20/22 14:58 Chloride 99 mmol/L (98-107) 09/20/22 14:58 Carbon Dioxide 23 mmol/L (22-29) 09/20/22 14:58 Anion Gap 18.1 (5-19) 09/20/22 14:58 BUN 17 mg/dL (6-20) 09/20/22 14:58 Creatinine 1.2 mg/dL (0.7-1.2) 09/20/22 14:58 GFR Calculation 62.9 mL/min (90-130) L 09/20/22 14:58 Glucose 288 mg/dL (65-115) H 09/20/22 14:58 Calculated Osmolality 294 mOsm/kg (285-295) 09/20/22 14:58 Calcium 9.2 mg/dL (8.5-10.5) 09/20/22 14:58 Total Bilirubin 1.1 mg/dL (0.15-1.2) 09/20/22 14:58 AST 38 U/L (0-40) 09/20/22 14:58 ALT 24 U/L (0-41) 09/20/22 14:58 Alkaline Phosphatase 136 U/L (40-130) H 09/20/22 14:58 Troponin T Baseline 16 ng/L (0-15) H 09/20/22 14:58 Troponin T 120 Minute 16.34 ng/L (0-15) H 09/20/22 16:47 Delta Troponin T 0.34 ABS# (0-10) 09/20/22 16:47 NT-Pro-B Natriuret Pep 47 pg/mL (0-125) 09/20/22 14:58 Total Protein 7.5 g/dL (6.6-8.7) 09/20/22 14:58 Albumin 3.9 g/dL (3.5-5.2) 09/20/22 14:58 Globulin 3.6 g/dL (1.3-4.6) 09/20/22 14:58 Lipase 67 U/L (13-60) H 09/20/22 14:58 EKG Data EKG 1: EKG interpretation date: 09/20/22 EKG interpretation time: 15:18 Interpretation: EKG shows a mild sinus tachycardia at a rate of 101 bpm and regular. No prior exam was available for immediate comparison. No ST elevation was noted. No ectopy was noted. Computer reported some left axis deviation and suggestive pulmonary disease. Discharge Plan Discharge Patient Disposition: Home Clinical Impression: Stable angina Condition: Stable Prescriptions: No Action venlafaxine 75 mg capsule,extended release 24hr 75 mg PO DAILY glipizide 5 mg tablet 5 mg PO DAILY@0700 metformin 1,000 mg tablet extended release 24hr 1,000 mg PO BID@0700,1900 Hold Instructions: Resume on 07/13/20. May restart this medication on 13 of July allopurinol 100 mg tablet 100 mg PO DAILY PRN (Reason: Stomach Upset) nitroglycerin 0.4 mg tablet, sublingual 0.4 mg SUBLINGUAL Q5M PRN (Reason: chest pain) 30 Days Qty: 30 3RF Rx Instructions: until response; do not exceed 3 doses per episode (DME) Fast Form Migdalia Villanueva See Rx Instructions .Route .MEDSUPPLY Qty: 1 0RF Rx Instructions: As directed Plavix 75 mg tablet 75 mg PO DAILY@0700 Qty: 90 3RF aspirin 81 mg tablet,chewable 81 mg PO DAILY@0700 Qty: 90 3RF metoprolol tartrate 25 mg tablet 25 mg PO BID@0700,1900 Qty: 180 2RF levothyroxine 150 mcg capsule 150 mcg PO DAILY lisinopril 40 mg tablet 40 mg PO DAILY Keppra 500 mg Tablet 500 mg PO BID acetaminophen [Tylenol Arthritis Pain] 650 mg tablet extended release 650 mg PO Q8H PRN (Reason: pain) Qty: 30 0RF Discharge Orders: Discharge ED (Routine); Ordered 09/20/22 Ordered By: Alexis Brian Referrals: Dorita Flaherty FNP [Primary Care Provider] - Discharge Diet: Usual diet Discharge Activity: Increase activity as tolerated Patient Instructions: Chest Pain (ED) Activity Restrictions/Additional Instructions: Home and rest. Drink plenty of water and fluids. Continue routine medications as tolerated. Use acetaminophen or ibuprofen for pain control. Follow-up with primary care as needed for further evaluation and instruction. Return to ED for new concerns. Coding Level of Care Code ED Field Cane Scaler for Marva Bunn
[2022-09-20 15:06] VITALS: BMI 31.5
[2022-09-20 15:13] VITALS: BP 107/70; PULSE 93; RESP 21; TEMP 37.4; O2SAT 94
[2022-09-20 15:49] LABS: Basophils # 0.1 10^3/uL (0.0-0.1); Eosinophils # 0.3 10^3/uL (0.0-0.8); Eosinophils % 2.9 %; Hematocrit 42.5 % (42.0-52.0); Hemoglobin 13.9 g/dL (11.7-16.6); Lymphocytes # 1.2 10^3/uL (0.8-4.8); Lymphocytes % 14.2 %; Mean Corpuscular HGB Conc 32.7 g/dL (30.0-36.0); Mean Corpuscular Hemoglobin 29.6 pg (28.0-34.0); Mean Corpuscular Volume 90.4 fl (80-94); Mean Platelet Volume 11.4 fL (7.4-10.4); Monocytes # 0.6 10^3/uL (0.2-0.9); Monocytes % 6.5 %; Neutrophils # 6.49 10^3/uL (1.8-7.7); Neutrophils % 75.2 %; Nucleated Red Blood Cells % 0 %; Platelet Count 154 10^3/cmm (130-400); Red Cell Distribution Width 13.1 % (12.1-15.1); White Blood Count 8.6 10^3/uL (4.0-10.0)
[2022-09-20 15:50] VITALS: BP 111/60; PULSE 90; RESP 16; O2SAT 94
[2022-09-20 16:07] LABS: Troponin(5th) Baseline 16 ng/L (0-15)
[2022-09-20 16:10] LABS: Alanine Aminotransferase 24 U/L (0-41); Albumin Level 3.9 g/dL (3.5-5.2); Alkaline Phosphatase 136 U/L (40-130); Aspartate Amino Transferase 38 U/L (0-40); Blood Urea Nitrogen 17 mg/dL (6-20); Calcium 9.2 mg/dL (8.5-10.5); Carbon Dioxide 23 mmol/L (22-29); Chloride 99 mmol/L (98-107); Globulin 3.6 g/dL (1.3-4.6); Glomerular Filtration Rate 62.9 mL/min (90-130); Glucose 288 mg/dL (65-115); Lipase 67 U/L (13-60); NT Pro B Type Natriuretic Pept 47 pg/mL (0-125); Osmolality Calculated 294 mOsm/kg (285-295); Sodium 136 mmol/L (136-145); Total Bilirubin 1.1 mg/dL (0.15-1.2); Total Protein 7.5 g/dL (6.6-8.7)
[2022-09-20 16:12] LABS: Anion Gap 18.1 (5-19); Potassium 4.1 mmol/L (3.5-5.1)
--- NOTE | 2022-09-20 16:58 | ECG_ITS ---
[facility] Test Date: 2022-09-20 Pat Name: Alonso Golden Department: Room: Gender: Male Gift Officer: : 1965 Requested By: Alexis Whalen Order Number: [id number] Mariaa MD: Vernon Guillaume M.D. Measurements Intervals [place] Rate: 81 P: 27 VT: 157 QRS: -20 QRSD: 85 T: 55 QT: 384 QTc: 447 Interpretive Statements SINUS RHYTHM Compared to ECG 09/20/2022 15:14:28 Sinus tachycardia no longer present Left-axis deviation no longer present Electronically Signed On 09-20-2022 21:38:52 CDT by Vernon Guillaume M.D. [email or web address] [id number]
[2022-09-20 17:16] LABS: Troponin 5 2HR 16.34 ng/L (0-15); Troponin 5 2HR Delta 0.34 ABS# (0-10)
== END 2022-09-20 18:19 | disposition home or self-care (01) ==
PROVIDERS: Emergency Provider Nurse Practitioner Family; PCP Nurse Practitioner Family
DX: I25.118 Atherosclerotic heart disease of native coronary artery with other forms of angina pectoris (principal); Z79.82 Long term (current) use of aspirin; Z79.02 Long term (current) use of antithrombotics/antiplatelets; Z79.84 Long term (current) use of oral hypoglycemic drugs; F17.210 Nicotine dependence, cigarettes, uncomplicated; I10 Essential (primary) hypertension; E78.5 Hyperlipidemia, unspecified; E11.9 Type 2 diabetes mellitus without complications
CPT/HCPCS: 36415; 71045; 80053; 83690; 83880; 84484; 85025; 93005; 99285

== ENCOUNTER → 2022-10-02 14:17 | Outpatient (BNVA) | payer MEDICAID, SELFPAY | PROVIDERS: PCP Nurse Practitioner Family; Visit Provider Orthopaedic Surgery | DX: S62.347A Nondisplaced fracture of base of fifth metacarpal bone, left hand, initial encounter for closed fracture (principal); X58.XXXA Exposure to other specified factors, initial encounter | CPT/HCPCS: 73130; 99024 ==

== ENCOUNTER 2022-10-23 20:43 | Emergency (ER) | payer MEDICAID, SELFPAY ==
[2022-10-23 20:53] VITALS: BP 150/86; PULSE 100; RESP 17; TEMP 37.1; O2SAT 97; BMI 32.3
--- NOTE | 2022-10-23 21:07 | CTR_ITS ---
PROCEDURE INFORMATION: Exam: CT Abdomen And Pelvis With Contrast Exam date and time: 10/23/2022 9:23 PM Age: 57 years old Clinical indication: Bloating and nausea and vomiting; Abdominal pain; Localized; Right; Prior surgery; Surgery date: 6+ months; Surgery type: Hernia repair. Appy; Patient HX: C/O RT sided abd pain with distention and n/v. ; Additional info: Abd pain, n/v, distension TECHNIQUE: Imaging protocol: Computed tomography of the abdomen and pelvis with contrast. Radiation optimization: All CT scans at this facility use at least one of these dose optimization techniques: automated exposure control; mA and/or kV adjustment per patient size (includes targeted exams where dose is matched to clinical indication); or iterative reconstruction. Contrast material: OMNI 350; Contrast volume: 100 ml; Contrast route: INTRAVENOUS (IV); REPORTING DATA: Count of CT and Cardiac NM exams in prior 12 months: This patient has received 0 known CTs and 0 known cardiac nuclear medicine studies in the 12 months prior to the current study. COMPARISON: CT abdomen pelvis w con* [id number] 11/03/2019 10:29 PM RADIATION DOSE METRICS: Total DLP (mGy-cm): 1024.93 FINDINGS: Lungs: Emphysematous changes. Bibasilar atelectasis. Coronary arteries: Coronary artery atherosclerotic calcifications. Liver: Cirrhotic liver. Gallbladder and bile ducts: Cholecystectomy. Pancreas: Normal. No ductal dilation. Spleen: Spleen enlarged to 16 cm. Adrenal glands: Normal. No mass. Kidneys and ureters: Normal. No hydronephrosis. Stomach and bowel: Constipation. Appendix: No evidence of appendicitis. Intraperitoneal space: Unremarkable. No free air. No significant fluid collection. Vasculature: Varices in the upper abdomen reflective of portal venous hypertension. Lymph nodes: Unremarkable. No enlarged lymph nodes. Urinary bladder: Unremarkable as visualized. Reproductive: Unremarkable as visualized. Bones/joints: Unremarkable. No acute fracture. Soft tissues: Unremarkable. CT/CT abdomen pelvis w con* [id number] IMPRESSION: 1. Negative for focal acute inflammatory process in the abdomen or pelvis. 2. Emphysematous changes. 3. Bibasilar atelectasis. 4. Cirrhotic liver. 5. Spleen enlarged to 16 cm. 6. Cholecystectomy. 7. Constipation. 8. Coronary artery atherosclerotic calcifications. 9. Varices in the upper abdomen reflective of portal venous hypertension.
--- NOTE | 2022-10-23 21:07 | W.ED.ABDPA2 ---
HPI - Abdominal Pain General: Chief Complaint: Abdominal Pain Stated Complaint: Dr Migdalia Fluid Build up ABD Time Seen by Provider: 10/23/22 20:57 History of Present Illness: Patient presents to the ER with complaints of nausea vomiting abdominal pain. Patient was seen at [facility] earlier today and told he had fluid around his liver and that he needed to come have a drain. Patient does have a history of cirrhosis and has had to have his abdomen drained multiple years ago and but not since then. MD elicited complaint: abdominal pain Pertinent past history: none Onset (ago): day(s) (1 to 2 days ago) Pain Consistency: constant Location: Diffuse Severity: moderate Quality: aching and fullness Radiation: none Migration to: no migration Exacerbating factors: movement Relieving factors: nothing Context: history of similar episodes Associated Symptoms: Reports nausea, poor appetite and vomiting Review of Systems General: Reports: 10 or more systems reviewed and unremarkable except in HPI and below GI: Reports: nausea and vomiting PFSH ED PFSH: Medical History Atypical chest pain Benign essential hypertension with target blood pressure below 140/90 Chronic low back pain Coronary artery disease Dyslipidemia Epilepsy Glucose intolerance Hypothyroidism Obesity Smoker Type 2 diabetes mellitus Surgical History H/O umbilical hernia repair History of appendectomy Family History Father , at age 74 Family history of premature coronary artery disease Had a myocardial infarction in his 40s. Diabetes CAD (coronary artery disease) Chronic kidney disease (CKD) Stroke Brother Family history of premature coronary artery disease CAD (coronary artery disease) Had [place] in the 50s Diabetes Stroke Grandmother CAD (coronary artery disease) Diabetes Grandfather CAD (coronary artery disease) Mother , at age 84 CAD (coronary artery disease) Cancer Diabetes COVID-19 Family/Other Lung disease Denies family history of Clotting disorder Dementia Suicide Anesthesia complication Bleeding disorder Social History Smoking and tobacco status: current every day smoker Alcohol intake: current Alcohol intake frequency: holidays/special occasions only Substance/Drug Use: never Household members: spouse Housing: House Marital status: Current occupational status: disabled Physical Exam Const: COMMON NORMALS: no acute distress, average body habitus, patient oriented x3, no limitations, alert and well nourished HENMT: COMMON NORMALS: normocephalic, atraumatic, hearing grossly normal bilaterally, external ears normal, Normal external nose present and moist oral mucous membranes HEAD & SCALP: normocephalic and atraumatic NOSE: Normal external nose present EXTERNAL EAR: Yes external ears normal Eye: COMMON NORMALS: Equal, round and reactive pupils present, EOMs intact bilaterally, conjunctivae normal and no scleral icterus CONJUNCTIVA: Yes conjunctivae normal PUPIL: Yes Equal, round and reactive pupils present Neck/C-Spine: COMMON NORMALS: full ROM, no lymphadenopathy, supple, no meningeal signs, no JVD and Thyroid normal THYROID: Thyroid normal Chest: COMMONS NORMALS: normal inspection of the chest and normal palpation of entire chest wall Resp: COMMON NORMALS: normal respiratory effort, No retractions, No use of accessory muscles and clear to auscultation bilaterally AUSCULTATION: clear to auscultation bilaterally Cardio: COMMON NORMALS: no JVD, regular rate, regular rhythm, S1 normal heart sound present, S2 normal heart sound present, No gallops present (Cardio), No clicks present (Cardio), No murmurs present (Cardio) and No rub (Cardio) RATE: regular rate RHYTHM: regular rhythm HEART SOUNDS: S1 normal heart sound present and S2 normal heart sound present GI: COMMON NORMALS: Soft to palpation (Mild distention) INSPECTION: Yes normal to inspection AUSCULTATION: Yes normoactive bowel sounds PALPATION: Yes Soft to palpation (Mild distention) and Yes Tenderness to palpation present (GI) Details: LLQ and RLQ : COMMON NORMALS: Yes no CVA tenderness BLADDER/KIDNEY EXAM: Yes no CVA tenderness Back/Pelvis: COMMON NORMALS: no CVA tenderness Neuro: COMMON NORMALS: patient oriented x3 SENSORIUM/ORIENTATION: Yes alert MENINGEAL SIGNS: Yes no meningeal signs Course Vital Signs: Vital signs: Vital Signs Temperature 98.7 F 10/23/22 20:53 Pulse Rate 94 10/23/22 21:49 Respiratory Rate 16 10/23/22 21:49 Blood Pressure 149/35 10/23/22 21:49 Pulse Oximetry 93 10/23/22 21:49 Oxygen Delivery Me thod Room Air 10/23/22 21:49 MDM - Abdominal Pain Medical Decision Making Patient presents to the ER with complaints of abdominal pain and swelling. Patient says Sergo Ferraroek told him to come over here and get further worked up as he may need fluid drained off his abdomen. Physical exam did show he had a distended but soft abdomen however lab work showed that his liver enzymes was within normal limits but his magnesium was low at 1.2. Abdominal CT with contrast showed negative for acute inflammatory changes but did show he had a cirrhotic liver and enlarged spleen and varices in the upper abdomen that are reflective of portal venous hypertension. Patient will be discharged home and will be told to follow-up with his PCP within the next 7 days. Differential Diagnosis Likely abdominal pain; Unlikely acute appendicitis, calculus of kidney, constipation, diverticulitis, endometriosis, gastroenteritis, pancreatitis or small bowel obstruction Lab Data I reviewed the patient's lab results. 10/23/22 21:16 10/23/22 21:16 Labs/Radiology: Radiology Impressions Abdomen/Pelvis CT 10/23/22 21:07 IMPRESSION: 1. Negative for focal acute inflammatory process in the abdomen or pelvis. 2. Emphysematous changes. 3. Bibasilar atelectasis. 4. Cirrhotic liver. 5. Spleen enlarged to 16 cm. 6. Cholecystectomy. 7. Constipation. 8. Coronary artery atherosclerotic calcifications. 9. Varices in the upper abdomen reflective of portal venous hypertension. Laboratory Results WBC 6.9 10^3/uL (4.0-10.0) 10/23/22 21:16 RBC 4.35 10^6/uL (4.1-5.3) 10/23/22 21:16 Hgb 12.7 g/dL (11.7-16.6) 10/23/22 21:16 Hct 38.1 % (42.0-52.0) L 10/23/22 21:16 MCV 87.6 fl (80-94) 10/23/22 21:16 MCH 29.2 pg (28.0-34.0) 10/23/22 21:16 MCHC 33.3 g/dL (30.0-36.0) 10/23/22 21:16 RDW 13.6 % (12.1-15.1) 10/23/22 21:16 Plt Count 138 10^3/cmm (130-400) 10/23/22 21:16 MPV 10.4 fL (7.4-10.4) 10/23/22 21:16 Neut % (Auto) 79.0 % 10/23/22 21:16 Lymph % (Auto) 8.9 % 10/23/22 21:16 Josephine % (Auto) 8.6 % 10/23/22 21:16 Eos % (Auto) 2.2 % 10/23/22 21:16 Baso % (Auto) 0.7 % 10/23/22 21:16 Neut # (Auto) 5.41 10^3/uL (1.8-7.7) 10/23/22 21:16 Lymph # (Auto) 0.6 10^3/uL (0.8-4.8) L 10/23/22 21:16 Josephine # (Auto) 0.6 10^3/uL (0.2-0.9) 10/23/22 21:16 Eos # (Auto) 0.2 10^3/uL (0.0-0.8) 10/23/22 21:16 Baso # (Auto) 0.1 10^3/uL (0.0-0.1) 10/23/22 21:16 Nucleated RBC % (auto) 0 % 10/23/22 21:16 Nucleated RBCs # 0.0 /100WBC 10/23/22 21:16 PT 15.60 SECONDS (12.1-14.9) H 10/23/22 21:16 INR 1.20 (0.8-1.2) 10/23/22 21:16 Sodium 140 mmol/L (136-145) 10/23/22 21:16 Potassium 3.4 mmol/L (3.5-5.1) L 10/23/22 21:16 Chloride 105 mmol/L (98-107) 10/23/22 21:16 Carbon Dioxide 25 mmol/L (22-29) 10/23/22 21:16 Anion Gap 13.4 (5-19) 10/23/22 21:16 BUN 9 mg/dL (6-20) 10/23/22 21:16 Creatinine 0.8 mg/dL (0.7-1.2) 10/23/22 21:16 GFR Calculation 100.4 mL/min (90-130) 10/23/22 21:16 Glucose 137 mg/dL (65-115) H 10/23/22 21:16 Calculated Osmolality 291 mOsm/kg (285-295) 10/23/22 21:16 Calcium 9.1 mg/dL (8.5-10.5) 10/23/22 21:16 Magnesium 1.2 mg/dL (1.7-2.3) L 10/23/22 21:16 Total Bilirubin 1.1 mg/dL (0.15-1.2) 10/23/22 21:16 AST 37 U/L (0-40) 10/23/22 21:16 ALT 18 U/L (0-41) 10/23/22 21:16 Alkaline Phosphatase 113 U/L (40-130) 10/23/22 21:16 Total Protein 7.4 g/dL (6.6-8.7) 10/23/22 21:16 Albumin 3.8 g/dL (3.5-5.2) 10/23/22 21:16 Globulin 3.6 g/dL (1.3-4.6) 10/23/22 21:16 Lipase 78 U/L (13-60) H 10/23/22 21:16 Urine Color Yellow (Yellow) 10/23/22 22:55 Urine Appearance Clear (CLEAR) 10/23/22 22:55 Urine pH 6.5 (5-7) 10/23/22 22:55 Ur Specific [place] 1.005 (1.005-1.030) 10/23/22 22:55 Urine Protein Neg (Negative) 10/23/22 22:55 Urine Glucose (UA) Norm (Normal) 10/23/22 22:55 Urine Ketones Negative (Negative) 10/23/22 22:55 Urine Blood Neg (Negative) 10/23/22 22:55 Urine Nitrate Negative (Negative) 10/23/22 22:55 Urine Bilirubin Neg (Negative) 10/23/22 22:55 Urine Urobilinogen 1 mg/dL (Negative) H 10/23/22 22:55 Ur Leukocyte Esterase Negative (Negative) 10/23/22 22:55 Discharge Plan Discharge Patient Disposition: Home Clinical Impression: Hypertension, portal Abdominal pain Qualifiers: Abdominal location: generalized Qualified Code(s): R10.84 - Generalized abdominal pain Cirrhosis Qualifiers: Hepatic cirrhosis type: unspecified hepatic cirrhosis Ascites presence: without ascites Qualified Code(s): K74.60 - Unspecified cirrhosis of liver Condition: Stable Prescriptions: No Action venlafaxine 75 mg capsule,extended release 24hr 75 mg PO DAILY glipizide 5 mg tablet 5 mg PO DAILY@0700 metformin 1,000 mg tablet extended release 24hr 1,000 mg PO BID@0700,1900 Hold Instructions: Resume on 07/13/20. May restart this medication on 13 of July allopurinol 100 mg tablet 100 mg PO DAILY PRN (Reason: Stomach Upset) nitroglycerin 0.4 mg tablet, sublingual 0.4 mg SUBLINGUAL Q5M PRN (Reason: chest pain) 30 Days Qty: 30 3RF Rx Instructions: until response; do not exceed 3 doses per episode (DME) Fast Form Migdalia Villanueva See Rx Instructions .Route .MEDSUPPLY Qty: 1 0RF Rx Instructions: As directed Plavix 75 mg tablet 75 mg PO DAILY@0700 Qty: 90 3RF aspirin 81 mg tablet,chewable 81 mg PO DAILY@0700 Qty: 90 3RF metoprolol tartrate 25 mg tablet 25 mg PO BID@0700,1900 Qty: 180 2RF levothyroxine 150 mcg capsule 150 mcg PO DAILY lisinopril 40 mg tablet 40 mg PO DAILY Keppra 500 mg Tablet 500 mg PO BID acetaminophen [Tylenol Arthritis Pain] 650 mg tablet extended release 650 mg PO Q8H PRN (Reason: pain) Qty: 30 0RF Discharge Orders: Discharge ED (Routine); Ordered 10/23/22 Ordered By: Sedrick Ramsey Referrals: Dorita Flaherty FNP [Primary Care Provider] - 1 week Patient Instructions: Cirrhosis of the Liver (ED), Abdominal Pain (ED), Portal Hypertension (ED) Activity Restrictions/Additional Instructions: Please follow-up with your family practice physician within the next 7 days. If symptoms or change feel free to come back to the ER for further evaluation and treatment. 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
[2022-10-23] MEDS: iohexol 350 mg/mL 500 mL Btl (per mL) IV (21:24)
[2022-10-23 21:26] LABS: Basophils # 0.1 10^3/uL (0.0-0.1); Basophils % 0.7 %; Eosinophils # 0.2 10^3/uL (0.0-0.8); Eosinophils % 2.2 %; Hematocrit 38.1 % (42.0-52.0); Hemoglobin 12.7 g/dL (11.7-16.6); Lymphocytes # 0.6 10^3/uL (0.8-4.8); Lymphocytes % 8.9 %; Mean Corpuscular HGB Conc 33.3 g/dL (30.0-36.0); Mean Corpuscular Hemoglobin 29.2 pg (28.0-34.0); Mean Corpuscular Volume 87.6 fl (80-94); Mean Platelet Volume 10.4 fL (7.4-10.4); Monocytes # 0.6 10^3/uL (0.2-0.9); Monocytes % 8.6 %; Neutrophils # 5.41 10^3/uL (1.8-7.7); Nucleated Red Blood Cells % 0 %; Platelet Count 138 10^3/cmm (130-400); Red Blood Count 4.35 10^6/uL (4.1-5.3); Red Cell Distribution Width 13.6 % (12.1-15.1); White Blood Count 6.9 10^3/uL (4.0-10.0)
[2022-10-23 21:42] LABS: Alanine Aminotransferase 18 U/L (0-41); Albumin Level 3.8 g/dL (3.5-5.2); Alkaline Phosphatase 113 U/L (40-130); Anion Gap 13.4 (5-19); Aspartate Amino Transferase 37 U/L (0-40); Blood Urea Nitrogen 9 mg/dL (6-20); Calcium 9.1 mg/dL (8.5-10.5); Carbon Dioxide 25 mmol/L (22-29); Chloride 105 mmol/L (98-107); Globulin 3.6 g/dL (1.3-4.6); Glomerular Filtration Rate 100.4 mL/min (90-130); Glucose 137 mg/dL (65-115); Lipase 78 U/L (13-60); Magnesium 1.2 mg/dL (1.7-2.3); Osmolality Calculated 291 mOsm/kg (285-295); Potassium 3.4 mmol/L (3.5-5.1); Sodium 140 mmol/L (136-145); Total Bilirubin 1.1 mg/dL (0.15-1.2); Total Protein 7.4 g/dL (6.6-8.7)
[2022-10-23] MEDS: morphine 4 mg/mL SDV 1 mL IVP (21:42)
[2022-10-23] MEDS: ondansetron 2 mg/ML SDV 2 mL 4 MG IVP (21:42)
[2022-10-23 21:49] VITALS: BP 149/35; PULSE 94; RESP 16; O2SAT 93
[2022-10-23 23:39] LABS: Add Urine Microscopic? NO; Charge for UA Resulting for Rev
[2022-10-23 23:41] LABS: Bilirubin Urine Neg (Negative); Blood Urine Neg (Negative); Glucose Urine UA Norm (Normal); Ketones Urine Negative (Negative); Leukocyte Esterase Urine Negative (Negative); Nitrate Urine Negative (Negative); Protein Urine Neg (Negative); Specific Gravity, Urine 1.005 (1.005-1.030); Urine Appearance Clear (CLEAR); Urine Color Yellow (Yellow); Urobilinogen Urine 1 mg/dL (Negative); pH Urine 6.5 (5-7)
== END 2022-10-24 00:17 | disposition home or self-care (01) ==
PROVIDERS: Emergency Provider Emergency Medicine; PCP Nurse Practitioner Family
DX: K76.6 Portal hypertension (principal); K74.60 Unspecified cirrhosis of liver
CPT/HCPCS: 74177; 80053; 81003; 83690; 83735; 85025; 85610; 96374; 96375; 99285; J2270; J2405; J3475; Q9967

== ENCOUNTER 2022-11-02 01:59 | Emergency (ER) | payer MEDICAID, SELFPAY ==
[2022-11-02 02:00] VITALS: BP 140/97; PULSE 93; RESP 18; TEMP 36.6; O2SAT 94; BMI 32.3
--- NOTE | 2022-11-02 02:04 | ECG_ITS ---
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 Measurements Intervals [place] Rate: 94 P: 36 GA: 149 QRS: -18 QRSD: 93 T: 58 QT: 394 QTc: 495 Interpretive Statements SINUS RHYTHM MINIMAL VOLTAGE CRITERIA FOR LVH, CONSIDER NORMAL VARIANT [MEETS CRITERIA IN ONE OF: R(aVL), S(V1), R(V5), R(V5/V6)+S(V1)] POSSIBLE LATERAL MYOCARDIAL INFARCTION , PROBABLY OLD [30 ms Q WAVE IN I/aVL/V5/V6] Compared to ECG 09/20/2022 16:59:31 Myocardial infarct finding now present Electronically Signed On 11-02-2022 8:36:09 CDT by Vernon Guillaume M.D. [id number]
--- NOTE | 2022-11-02 02:19 | XRR_ITS ---
PROCEDURE INFORMATION: Exam: XR Chest Exam date and time: 11/02/2022 2:25 AM Age: 57 years old Clinical indication: Chest pressure; Prior surgery; Surgery date: 6+ months; Surgery type: Coronary stents; Patient HX: C/O chest pain. ; Additional info: Cp TECHNIQUE: Imaging protocol: Radiologic exam of the chest. Views: 1 view. Total images: 4 COMPARISON: CR XR chest 1V portable [id number] 09/20/2022 3:37 PM FINDINGS: Lungs: Small calcification projecting over the liver unchanged from prior exam felt to represent granuloma. Pleural spaces: Unremarkable. No pleural effusion. No pneumothorax. Heart/Mediastinum: Unremarkable. No cardiomegaly. Bones/joints: Osseous structures are unchanged from the prior exam. XR/XR chest 1V portable [id number] IMPRESSION: No acute cardiopulmonary process.
[2022-11-02 02:32] LABS: Basophils # 0.1 10^3/uL (0.0-0.1); Eosinophils # 0.2 10^3/uL (0.0-0.8); Eosinophils % 3.9 %; Hematocrit 39.1 % (42.0-52.0); Hemoglobin 13.3 g/dL (11.7-16.6); Lymphocytes # 0.9 10^3/uL (0.8-4.8); Lymphocytes % 17.6 %; Mean Corpuscular Volume 88.1 fl (80-94); Monocytes # 0.7 10^3/uL (0.2-0.9); Monocytes % 13.2 %; Neutrophils # 3.29 10^3/uL (1.8-7.7); Neutrophils % 63.7 %; Nucleated Red Blood Cells % 0 %; Platelet Count 135 10^3/cmm (130-400); Red Blood Count 4.44 10^6/uL (4.1-5.3); Red Cell Distribution Width 13.8 % (12.1-15.1); White Blood Count 5.2 10^3/uL (4.0-10.0)
[2022-11-02 02:37] LABS: INR 1.18 (0.8-1.2)
[2022-11-02 02:38] VITALS: BP 142/84; PULSE 90; RESP 21; O2SAT 96
[2022-11-02 02:38] LABS: Partial Thromboplastin Time 34.2 SECONDS (23.9-36.7)
[2022-11-02] MEDS: lidocaine 2% viscous 15 ML, aluminum-mag hydrox-simethicon 30 ML, sucralfate oral liq 1 GM PO (02:39)
[2022-11-02] MEDS: ondansetron 2 mg/ML SDV 2 mL 4 MG IVP (02:42)
[2022-11-02 02:46] VITALS: RESP 18; O2SAT 95
[2022-11-02] MEDS: morphine 4 mg/mL SDV 1 mL IVP (02:46)
[2022-11-02 02:59] LABS: Troponin(5th) Baseline 13 ng/L (0-15)
[2022-11-02 03:00] VITALS: BP 120/63; PULSE 87; RESP 17; O2SAT 93
[2022-11-02 03:07] LABS: Alanine Aminotransferase 21 U/L (0-41); Albumin Level 3.8 g/dL (3.5-5.2); Alkaline Phosphatase 182 U/L (40-130); Blood Urea Nitrogen 9 mg/dL (6-20); Calcium 8.8 mg/dL (8.5-10.5); Carbon Dioxide 23 mmol/L (22-29); Chloride 101 mmol/L (98-107); Globulin 3.9 g/dL (1.3-4.6); Glomerular Filtration Rate 87.6 mL/min (90-130); Glucose 255 mg/dL (65-115); Lipase 69 U/L (13-60); NT Pro B Type Natriuretic Pept 36 pg/mL (0-125); Osmolality Calculated 289 mOsm/kg (285-295); Sodium 136 mmol/L (136-145); Total Bilirubin 1.1 mg/dL (0.15-1.2); Total Protein 7.7 g/dL (6.6-8.7)
[2022-11-02 03:11] LABS: Anion Gap 15.4 (5-19); Aspartate Amino Transferase 47 U/L (0-40)
[2022-11-02 03:12] LABS: Potassium 3.4 mmol/L (3.5-5.1)
--- NOTE | 2022-11-02 03:24 | W.ED.CHESTPA ---
HPI - Chest Pain General: Chief Complaint: Chest Pain Stated Complaint: CP Time Seen by Provider: 11/02/22 02:15 History of Present Illness: 57-year-old male well-known to the ER service. He presents with right-sided chest discomfort and right upper quadrant discomfort for the last 24 hours or so. He denies fever. States he has had a mild cough. Some mild shortness of breath. No other specific symptoms. He was seen 10 days ago with fullness in his belly and diagnosed with constipation. MD complaint: chest pain Timing of current episode: constant Prior episodes: Yes Onset: during rest Pain location: right chest Pain radiation: right scapula Quality: tightness and aching Relieving factors: nothing Exacerbating factors: inspiration Context: recent illness Associated symptoms: Deny abdominal pain, dyspnea, fever(s), nausea, palpitations or vomiting Risk Factors: Pulmonary embolism risk factors: history of deep vein thrombosis Review of Systems Const: Denies: fever(s) ENMT: Denies: throat pain Card: Denies: palpitations Resp: Denies: dyspnea GI: Denies: abdominal pain, nausea or vomiting PFSH ED PFSH: Medical History Atypical chest pain Benign essential hypertension with target blood pressure below 140/90 Chronic low back pain Coronary artery disease Dyslipidemia Epilepsy Glucose intolerance Hypothyroidism Obesity Smoker Type 2 diabetes mellitus Surgical History H/O umbilical hernia repair History of appendectomy Family History Father , at age 74 Family history of premature coronary artery disease Had a myocardial infarction in his 40s. Diabetes CAD (coronary artery disease) Chronic kidney disease (CKD) Stroke Brother Family history of premature coronary artery disease CAD (coronary artery disease) Had [place] in the 50s Diabetes Stroke Grandmother CAD (coronary artery disease) Diabetes Grandfather CAD (coronary artery disease) Mother , at age 84 CAD (coronary artery disease) Cancer Diabetes COVID-19 Family/Other Lung disease Denies family history of Clotting disorder Dementia Suicide Anesthesia complication Bleeding disorder Social History Smoking and tobacco status: current every day smoker Alcohol intake: current Alcohol intake frequency: holidays/special occasions only Substance/Drug Use: never Household members: spouse Housing: House Marital status: Current occupational status: disabled Course Vital Signs: Vital signs: Vital Signs Temperature 98 F 11/02/22 02:00 Pulse Rate 93 11/02/22 02:00 Respiratory Rate 18 11/02/22 02:46 Blood Pressure 140/97 11/02/22 02:00 Pulse Oximetry 95 11/02/22 02:46 MDM - Chest Pain Medical Decision Making EKG shows a sinus rhythm with normal axis. Minimal criteria for LVH is met. No ST changes. Intervals are normal. Rate is 90 CBC is not remarkable. BMP is remarkable for a blood sugar of 255 only. Liver enzymes are essentially normal. Lipase is 69. His first troponin is 13 which is his baseline. BNP is 36. Chest x-ray is negative. He will be allowed home Lab Data 11/02/22 02:20 11/02/22 02:20 Laboratory Results WBC 5.2 10^3/uL (4.0-10.0) 11/02/22 02:20 RBC 4.44 10^6/uL (4.1-5.3) 11/02/22 02:20 Hgb 13.3 g/dL (11.7-16.6) 11/02/22 02:20 Hct 39.1 % (42.0-52.0) L 11/02/22 02:20 MCV 88.1 fl (80-94) 11/02/22 02:20 MCH 30.0 pg (28.0-34.0) 11/02/22 02:20 MCHC 34.0 g/dL (30.0-36.0) 11/02/22 02:20 RDW 13.8 % (12.1-15.1) 11/02/22 02:20 Plt Count 135 10^3/cmm (130-400) 11/02/22 02:20 MPV 11.0 fL (7.4-10.4) H 11/02/22 02:20 Neut % (Auto) 63.7 % 11/02/22 02:20 Lymph % (Auto) 17.6 % 11/02/22 02:20 [place] % (Auto) 13.2 % 11/02/22 02:20 Eos % (Auto) 3.9 % 11/02/22 02:20 Baso % (Auto) 1.0 % 11/02/22 02:20 Neut # (Auto) 3.29 10^3/uL (1.8-7.7) 11/02/22 02:20 Lymph # (Auto) 0.9 10^3/uL (0.8-4.8) 11/02/22 02:20 [place] # (Auto) 0.7 10^3/uL (0.2-0.9) 11/02/22 02:20 Eos # (Auto) 0.2 10^3/uL (0.0-0.8) 11/02/22 02:20 Baso # (Auto) 0.1 10^3/uL (0.0-0.1) 11/02/22 02:20 Nucleated RBC % (auto) 0 % 11/02/22 02:20 Nucleated RBCs # 0.0 /100WBC 11/02/22 02:20 PT 15.40 SECONDS (12.1-14.9) H 11/02/22 02:20 INR 1.18 (0.8-1.2) 11/02/22 02:20 APTT 34.2 SECONDS (23.9-36.7) 11/02/22 02:20 Sodium 136 mmol/L (136-145) 11/02/22 02:20 Potassium 3.4 mmol/L (3.5-5.1) L 11/02/22 02:20 Chloride 101 mmol/L (98-107) 11/02/22 02:20 Carbon Dioxide 23 mmol/L (22-29) 11/02/22 02:20 Anion Gap 15.4 (5-19) 11/02/22 02:20 BUN 9 mg/dL (6-20) 11/02/22 02:20 Creatinine 0.9 mg/dL (0.7-1.2) 11/02/22 02:20 GFR Calculation 87.6 mL/min (90-130) L 11/02/22 02:20 Glucose 255 mg/dL (65-115) H 11/02/22 02:20 Calculated Osmolality 289 mOsm/kg (285-295) 11/02/22 02:20 Calcium 8.8 mg/dL (8.5-10.5) 11/02/22 02:20 Total Bilirubin 1.1 mg/dL (0.15-1.2) 11/02/22 02:20 AST 47 U/L (0-40) H 11/02/22 02:20 ALT 21 U/L (0-41) 11/02/22 02:20 Alkaline Phosphatase 182 U/L (40-130) H 11/02/22 02:20 Troponin T Baseline 13 ng/L (0-15) 11/02/22 02:20 NT-Pro-B Natriuret Pep 36 pg/mL (0-125) 11/02/22 02:20 Total Protein 7.7 g/dL (6.6-8.7) 11/02/22 02:20 Albumin 3.8 g/dL (3.5-5.2) 11/02/22 02:20 Globulin 3.9 g/dL (1.3-4.6) 11/02/22 02:20 Lipase 69 U/L (13-60) H 11/02/22 02:20 Urine Color Yellow (Yellow) 11/02/22 03:36 Urine Appearance Clear (CLEAR) 11/02/22 03:36 Urine pH 6 (5-7) 11/02/22 03:36 Ur Specific [place] 1.015 (1.005-1.030) 11/02/22 03:36 Urine Protein Neg (Negative) 11/02/22 03:36 Urine Glucose (UA) 4+ (Normal) H 11/02/22 03:36 Urine Ketones Negative (Negative) 11/02/22 03:36 Urine Blood Neg (Negative) 11/02/22 03:36 Urine Nitrate Negative (Negative) 11/02/22 03:36 Urine Bilirubin Neg (Negative) 11/02/22 03:36 Urine Urobilinogen 1 mg/dL (Negative) H 11/02/22 03:36 Ur Leukocyte Esterase Negative (Negative) 11/02/22 03:36 Discharge Plan Discharge Patient Disposition: Home Clinical Impression: Atypical chest pain Condition: Stable Prescriptions: No Action venlafaxine 75 mg capsule,extended release 24hr 75 mg PO DAILY glipizide 5 mg tablet 5 mg PO DAILY@0700 metformin 1,000 mg tablet extended release 24hr 1,000 mg PO BID@0700,1900 Hold Instructions: Resume on 07/13/20. May restart this medication on 13 of July allopurinol 100 mg tablet 100 mg PO DAILY PRN (Reason: Stomach Upset) nitroglycerin 0.4 mg tablet, sublingual 0.4 mg SUBLINGUAL Q5M PRN (Reason: chest pain) 30 Days Qty: 30 3RF Rx Instructions: until response; do not exceed 3 doses per episode (DME) Fast Form Ulnar Gutter See Rx Instructions .Route .MEDSUPPLY Qty: 1 0RF Rx Instructions: As directed Plavix 75 mg tablet 75 mg PO DAILY@0700 Qty: 90 3RF aspirin 81 mg tablet,chewable 81 mg PO DAILY@0700 Qty: 90 3RF metoprolol tartrate 25 mg tablet 25 mg PO BID@0700,1900 Qty: 180 2RF levothyroxine 150 mcg capsule 150 mcg PO DAILY lisinopril 40 mg tablet 40 mg PO DAILY Keppra 500 mg Tablet 500 mg PO BID acetaminophen [Tylenol Arthritis Pain] 650 mg tablet extended release 650 mg PO Q8H PRN (Reason: pain) Qty: 30 0RF Discharge Orders: Discharge ED (Routine); Ordered 11/02/22 Ordered By: Khadar Beyer Referrals: Dorita Flaherty FNP [Primary Care Provider] - 1-3 days Patient Instructions: Noncardiac Chest Pain (ED), Opioid Safety, Pain Management Activity Restrictions/Additional Instructions: See your doctor next week. Return for problems. Coding Level of Care Code ED Heavy Equipment Sales Manager for Marva Bunn
[2022-11-02 03:40] LABS: Add Urine Microscopic? NO; Charge for UA Resulting for Rev
[2022-11-02 03:43] LABS: Bilirubin Urine Neg (Negative); Blood Urine Neg (Negative); Glucose Urine UA 4+ (Normal); Ketones Urine Negative (Negative); Leukocyte Esterase Urine Negative (Negative); Nitrate Urine Negative (Negative); Protein Urine Neg (Negative); Specific Gravity, Urine 1.015 (1.005-1.030); Urine Appearance Clear (CLEAR); Urine Color Yellow (Yellow); Urobilinogen Urine 1 mg/dL (Negative); pH Urine 6 (5-7)
--- NOTE | 2022-11-02 04:19 | ECG_ITS ---
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 Measurements Intervals [place] Rate: 79 P: 35 VT: 152 QRS: -5 QRSD: 93 T: 66 QT: 428 QTc: 491 Interpretive Statements SINUS RHYTHM POSSIBLE LATERAL MYOCARDIAL INFARCTION , PROBABLY OLD [30 ms Q WAVE IN I/aVL/V5/V6] Compared to ECG 11/02/2022 02:04:41 No significant changes Electronically Signed On 11-02-2022 8:36:32 CDT by Vernon Guillaume M.D. [id number]
[2022-11-02 04:32] VITALS: BP 127/88; PULSE 76; RESP 14; O2SAT 96
== END 2022-11-02 04:34 | disposition home or self-care (01) ==
PROVIDERS: Emergency Provider Emergency Medicine; PCP Nurse Practitioner Family
DX: R07.89 Other chest pain (principal); Z79.84 Long term (current) use of oral hypoglycemic drugs; Z79.02 Long term (current) use of antithrombotics/antiplatelets; Z79.82 Long term (current) use of aspirin; F17.210 Nicotine dependence, cigarettes, uncomplicated; I10 Essential (primary) hypertension; I25.10 Atherosclerotic heart disease of native coronary artery without angina pectoris; E78.5 Hyperlipidemia, unspecified; E11.9 Type 2 diabetes mellitus without complications
CPT/HCPCS: 71045; 80053; 81003; 83690; 83880; 84484; 85025; 85610; 85730; 93005; 96374; 96375; 99285; J2270; J2405

== ENCOUNTER 2022-11-08 23:58 | Emergency (ER) | payer MEDICAID, SELFPAY ==
[2022-11-09 00:08] VITALS: BP 133/97; PULSE 92; RESP 14; TEMP 36.7; O2SAT 94; BMI 32.3
[2022-11-09 00:41] VITALS: BP 135/80; PULSE 91; RESP 16; O2SAT 94
[2022-11-09] MEDS: ketorolac 60 mg/2 mL INJ IM (01:25)
[2022-11-09] MEDS: tizanidine 4 mg Tablet PO (01:26)
[2022-11-09 01:30] VITALS: BP 142/90; PULSE 84; RESP 16; O2SAT 96
--- NOTE | 2022-11-09 01:34 | W.ED.BACK ---
HPI - Back Pain/Injury General: Chief Complaint: Back Pain/Injury Stated Complaint: Back Pain Time Seen by Provider: 11/09/22 00:35 Source: patient History of Present Illness: 57-year-old male well-known to the emergency department service. He presents with an exacerbation of chronic low back pain evidently. Pain is nonradicular. No loss of bowel or bladder function. No numbness or tingling. No definite weakness. Pain is localized to the low back, mainly to the left of midline MD elicited complaint: back pain Pertinent past history: prior back pain Onset (ago): hour(s) Timing: constant Severity: moderate Similar Symptoms Previously: Yes Quality: other Location: lumbar spine Radiation: none Exacerbating factors: movement Relieving factors: none Associated symptoms: Deny abdominal pain, fecal incontinence, fever(s), vomiting or weakness Review of Systems Const: Denies: fever(s) GI: Denies: abdominal pain, vomiting or fecal incontinence : Denies: flank pain PFSH ED PFSH: Medical History Atypical chest pain Benign essential hypertension with target blood pressure below 140/90 Chronic low back pain Coronary artery disease Dyslipidemia Epilepsy Glucose intolerance Hypothyroidism Obesity Smoker Type 2 diabetes mellitus Surgical History H/O umbilical hernia repair History of appendectomy Family History Father , at age 74 Family history of premature coronary artery disease Had a myocardial infarction in his 40s. Diabetes CAD (coronary artery disease) Chronic kidney disease (CKD) Stroke Brother Family history of premature coronary artery disease CAD (coronary artery disease) Had CT in the 50s Diabetes Stroke Grandmother CAD (coronary artery disease) Diabetes Grandfather CAD (coronary artery disease) Mother , at age 84 CAD (coronary artery disease) Cancer Diabetes COVID-19 Family/Other Lung disease Denies family history of Clotting disorder Dementia Suicide Anesthesia complication Bleeding disorder Social History Smoking and tobacco status: current every day smoker Alcohol intake: current Alcohol intake frequency: holidays/special occasions only Substance/Drug Use: never Household members: spouse Housing: House Marital status: Current occupational status: disabled Physical Exam Const: COMMON NORMALS: no acute distress GENERAL APPEARANCE: cooperative; not ill appearing and not frail appearing HENMT: COMMON NORMALS: normocephalic, atraumatic and Normal external nose present HEAD & SCALP: normocephalic and atraumatic FACE & SINUS: normal facial exam and face symmetric NOSE: Normal external nose present Eye: COMMON NORMALS: Equal, round and reactive pupils present and EOMs intact bilaterally PUPIL: Yes Equal, round and reactive pupils present Neck/C-Spine: GENERAL: Yes trachea midline Chest: CHEST: Yes Symmetrical chest wall rise Resp: COMMON NORMALS: normal respiratory effort, No retractions, No use of accessory muscles and clear to auscultation bilaterally AUSCULTATION: clear to auscultation bilaterally Cardio: COMMON NORMALS: regular rate and regular rhythm RATE: regular rate RHYTHM: regular rhythm GI: COMMON NORMALS: Normal to inspection, nondistended, normoactive bowel sounds present Back/Pelvis: OTHER: Tenderness over the left L5 and sacroiliac joint superior. No deformity. No midline tenderness. Straight leg raise test is negative bilaterally. No weakness. No sensory changes. Extremity: COMMON NORMALS: no pedal edema Neuro: CANDY COMA SCALE: document GCS findings Marvell coma scale eye opening: Spontaneous Marvell coma scale verbal response: Orientated Candy coma scale motor response: Obey commands Marvell coma scale total score: 15 SENSORY EXAM: Yes extremities (intact) Psych: COMMON NORMALS: speech normal SPEECH: Yes normal speech Skin: COMMON NORMALS: no rashes or lesions noted GENERAL SKIN EXAM: no rashes or lesions noted Course Vital Signs: Vital signs: Vital Signs Temperature 98.0 F 11/09/22 00:08 Pulse Rate 84 11/09/22 01:30 Respiratory Rate 16 11/09/22 01:30 Blood Pressure 142/90 11/09/22 01:30 Pulse Oximetry 96 11/09/22 01:30 Oxygen Delivery Me thod Room Air 11/09/22 00:08 MDM - Back Pain/Injury Medical Decision Making Patient was treated with IM Toradol and oral tizanidine. No red flag symptoms. He will be allowed discharge. Discharge Plan Discharge Patient Disposition: Home Clinical Impression: Facet arthropathy, lumbar Condition: Stable Prescriptions: No Action venlafaxine 75 mg capsule,extended release 24hr 75 mg PO DAILY glipizide 5 mg tablet 5 mg PO DAILY@0700 metformin 1,000 mg tablet extended release 24hr 1,000 mg PO BID@0700,1900 Hold Instructions: Resume on 07/13/20. May restart this medication on 13 of July allopurinol 100 mg tablet 100 mg PO DAILY PRN (Reason: Stomach Upset) nitroglycerin 0.4 mg tablet, sublingual 0.4 mg SUBLINGUAL Q5M PRN (Reason: chest pain) 30 Days Qty: 30 3RF Rx Instructions: until response; do not exceed 3 doses per episode (DME) Fast Form Migdalia Villanueva See Rx Instructions .Route .MEDSUPPLY Qty: 1 0RF Rx Instructions: As directed Plavix 75 mg tablet 75 mg PO DAILY@0700 Qty: 90 3RF aspirin 81 mg tablet,chewable 81 mg PO DAILY@0700 Qty: 90 3RF metoprolol tartrate 25 mg tablet 25 mg PO BID@0700,1900 Qty: 180 2RF levothyroxine 150 mcg capsule 150 mcg PO DAILY lisinopril 40 mg tablet 40 mg PO DAILY Keppra 500 mg Tablet 500 mg PO BID acetaminophen [Tylenol Arthritis Pain] 650 mg tablet extended release 650 mg PO Q8H PRN (Reason: pain) Qty: 30 0RF Discharge Orders: Discharge ED (Routine); Ordered 11/09/22 Ordered By: Khadar Beyer Referrals: Dorita Flaherty FNP [Primary Care Provider] - 1-3 days Patient Instructions: Back Pain (ED), Pain Management Coding Level of Care Code ED Communications Instructor for Marva Bunn
[2022-11-09 01:40] VITALS: BP 142/90; PULSE 84; RESP 16; TEMP 36.7; O2SAT 96
== END 2022-11-09 01:40 | disposition home or self-care (01) ==
PROVIDERS: Emergency Provider Emergency Medicine; PCP Nurse Practitioner Family
DX: M47.816 Spondylosis without myelopathy or radiculopathy, lumbar region (principal); Z79.899 Other long term (current) drug therapy
CPT/HCPCS: 96372; 99284; J1885

== ENCOUNTER 2022-11-11 20:47 | Emergency (ER) | payer MEDICAID, SELFPAY ==
[2022-11-11 21:08] VITALS: BP 143/88; PULSE 111; RESP 16; TEMP 36.9; O2SAT 95; BMI 31.6
--- NOTE | 2022-11-11 21:24 | ED_ITS ---
HPI - Abdominal Pain General: Chief Complaint: Abdominal Pain Stated Complaint: abd pain Time Seen by Provider: 11/11/22 21:16 Source: patient Mode of arrival: ambulatory Limitations: no limitations History of Present Illness: 57-year-old male states that he has had issues with abdominal pain in the past states been having left upper quadrant abdominal pain over the last 5 hours. States sharp in nature rates it a 5 out of 10 currently denies any vomiting or diarrhea he denies any fevers he denies any chest pain. Associated Symptoms: Denies chills, diarrhea, fever(s), nausea and vomiting Review of Systems Const: Denies: fever(s), chills, body aches or change in appetite Eyes: Denies: blurry vision or eye discomfort ENMT: Denies: throat pain or dental pain Card: Denies: chest pain Resp: Denies: dyspnea GI: Reports: abdominal pain; Denies: nausea, vomiting or diarrhea Musc: Denies: neck pain or back pain Skin/Breast: Denies: rash Neuro: Denies: headache(s) PFSH ED PFSH: Medical History Atypical chest pain Benign essential hypertension with target blood pressure below 140/90 Chronic low back pain Coronary artery disease Dyslipidemia Epilepsy Glucose intolerance Hypothyroidism Obesity Smoker Type 2 diabetes mellitus Surgical History H/O umbilical hernia repair History of appendectomy Family History Father , at age 74 Family history of premature coronary artery disease Had a myocardial infarction in his 40s. Diabetes CAD (coronary artery disease) Chronic kidney disease (CKD) Stroke Brother Family history of premature coronary artery disease CAD (coronary artery disease) Had [place] in the 50s Diabetes Stroke Grandmother CAD (coronary artery disease) Diabetes Grandfather CAD (coronary artery disease) Mother , at age 84 CAD (coronary artery disease) Cancer Diabetes COVID-19 Family/Other Lung disease Denies family history of Clotting disorder Dementia Suicide Anesthesia complication Bleeding disorder Social History Smoking and tobacco status: current every day smoker Alcohol intake: current Alcohol intake frequency: holidays/special occasions only Substance/Drug Use: never Household members: spouse Housing: House Marital status: Current occupational status: disabled Physical Exam Const: COMMON NORMALS: no acute distress, patient oriented x3 and healthy appearing HENMT: COMMON NORMALS: normocephalic and atraumatic HEAD & SCALP: normo cephalic and atraumatic Neck/C-Spine: COMMON NORMALS: full ROM and supple Chest: COMMONS NORMALS: normal inspection of the chest and normal palpation of entire chest wall Resp: COMMON NORMALS: normal respiratory effort, No retractions, No use of accessory muscles and clear to auscultation bilaterally AUSCULTATION: clear to auscultation bilaterally Cardio: COMMON NORMALS: regular rate, regular rhythm and No murmurs present (Cardio) RATE: regular rate RHYTHM: regular rhythm GI: COMMON NORMALS: Normal to inspection, nondistended, normoactive bowel sounds present, Soft to palpation, non-tender and no masses PALPATION: Yes Soft to palpation Extremity: COMMON NORMALS: normal to inspection and full ROM Neuro: COMMON NORMALS: patient oriented x3, moves all extremities and no focal motor deficits Psych: COMMON NORMALS: mental status grossly normal, Normal thought process present and cooperative THOUGHT PROCESS: Normal thought process present Skin: COMMON NORMALS: no rashes or lesions noted and no wounds GENERAL SKIN EXAM: no rashes or lesions noted Course Vital Signs: Vital signs: Vital Signs Temperature 98.4 F 11/11/22 21:08 Pulse Rate 98 11/11/22 21:40 Respiratory Rate 15 11/11/22 21:51 Blood Pressure 179/96 11/11/22 21:40 Pulse Oximetry 92 11/11/22 21:51 Oxygen Delivery Me thod Room Air 11/11/22 21:40 MDM - Abdominal Pain Medical Decision Making Patient presents for abdominal pain blood work here is normal exam is normal he is stable for discharge patient is to follow-up with PCP and return if worsening. Medical Records I reviewed the patient's medical records. Lab Data I reviewed the patient's lab results. 11/11/22 21:26 11/11/22 21:26 Labs/Radiology: Laboratory Results WBC 6.9 10^3/uL (4.0-10.0) 11/11/22 21:26 RBC 4.51 10^6/uL (4.1-5.3) 11/11/22 21:26 Hgb 13.0 g/dL (11.7-16.6) 11/11/22 21: Hct 39.2 % (42.0-52.0) L 11/11/22 21: MCV 86.9 fl (80-94) 11/11/22 21: MCH 28.8 pg (28.0-34.0) 11/11/22 21: MCHC 33.2 g/dL (30.0-36.0) 11/11/22 21: RDW 13.9 % (12.1-15.1) 11/11/22 21: Plt Count 146 10^3/cmm (130-400) 11/11/22 21: MPV 10.2 fL (7.4-10.4) 11/11/22 21: Neut % (Auto) 73.3 % 11/11/22 21: Lymph % (Auto) 12.2 % 11/11/22 21: Fisher % (Auto) 10.4 % 11/11/22 21: Eos % (Auto) 2.5 % 11/11/22 21: Baso % (Auto) 1.0 % 11/11/22: Neut # (Auto) 5.07 10^3/uL (1.8-7.7) 11/11/22: Lymph # (Auto) 0.8 10^3/uL (0.8-4.8) 11/11/22 21: Fisher # (Auto) 0.7 10^3/uL (0.2-0.9) 11/11/22: Eos # (Auto) 0.2 10^3/uL (0.0-0.8) 11/11/22 21: Baso # (Auto) 0.1 10^3/uL (0.0-0.1) 11/11/22: Nucleated RBC % (auto) 0 % 11/11/22: Nucleated RBCs # 0.0 /100WBC 11/11/22 21: Sodium 133 mmol/L (136-145) L 11/11/22 21: Potassium 3.2 mmol/L (3.5-5.1) L 11/11/22 21:26 Chloride 97 mmol/L (98-107) L 11/11/22 21:26 Carbon Dioxide 26 mmol/L (22-29) 11/11/22 21:26 Anion Gap 13.2 (5-19) 11/11/22 21:26 BUN 11 mg/dL (6-20) 11/11/22 21:26 Creatinine 1.0 mg/dL (0.7-1.2) 11/11/22 21:26 GFR Calculation 77.6 mL/min (90-130) L 11/11/22 21:26 Glucose 279 mg/dL (65-115) H 11/11/22 21:26 Calculated Osmolality 285 mOsm/kg (285-295) 11/11/22 21:26 Calcium 9.4 mg/dL (8.5-10.5) 11/11/22 21:26 Total Bilirubin 1.8 mg/dL (0.15-1.2) H 11/11/22 21:26 AST 78 U/L (0-40) H 11/11/22 21:26 ALT 30 U/L (0-41) 11/11/22 21:26 Alkaline Phosphatase 139 U/L (40-130) H 11/11/22 21:26 Total Protein 7.6 g/dL (6.6-8.7) 11/11/22 21:26 Albumin 3.9 g/dL (3.5-5.2) 11/11/22 21:26 Globulin 3.7 g/dL (1.3-4.6) 11/11/22 21:26 Lipase 42 U/L (13-60) 11/11/22 21:26 Discharge Plan Discharge Patient Disposition: Home Clinical Impression: Abdominal pain Qualifiers: Abdominal location: generalized Qualified Code(s): R10.84 - Generalized abdomi nal pain Condition: Stable Prescriptions: No Action venlafaxine 75 mg capsule,extended release 24hr 75 mg PO DAILY glipizide 5 mg tablet 5 mg PO DAILY@0700 metformin 1,000 mg tablet extended release 24hr 1,000 mg PO BID@0700,1900 Hold Instructions: Resume on 07/13/20. May restart this medication on 13 of July allopurinol 100 mg tablet 100 mg PO DAILY PRN (Reason: Stomach Upset) nitroglycerin 0.4 mg tablet, sublingual 0.4 mg SUBLINGUAL Q5M PRN (Reason: chest pain) 30 Days Qty: 30 3RF Rx Instructions: until response; do not exceed 3 doses per episode (DME) Fast Form Migdalia Villanueva See Rx Instructions .Route .MEDSUPPLY Qty: 1 0RF Rx Instructions: As directed Plavix 75 mg tablet 75 mg PO DAILY@0700 Qty: 90 3RF aspirin 81 mg tablet,chewable 81 mg PO DAILY@0700 Qty: 90 3RF metoprolol tartrate 25 mg tablet 25 mg PO BID@0700,1900 Qty: 180 2RF levothyroxine 150 mcg capsule 150 mcg PO DAILY lisinopril 40 mg tablet 40 mg PO DAILY Keppra 500 mg Tablet 500 mg PO BID acetaminophen [Tylenol Arthritis Pain] 650 mg tablet extended release 650 mg PO Q8H PRN (Reason: pain) Qty: 30 0RF Discharge Orders: Discharge ED (Routine); Ordered 11/11/22 Ordered By: Kerry Jeter Referrals: Dorita Flaherty FNP [Primary Care Provider] - Discharge Diet: Advance as tolerated Discharge Activity: Resume usual activity Patient Instructions: Abdominal Pain (ED) Coding Level of Care Code ED Regulated Program Manager for Marva Bunn
[2022-11-11 21:40] VITALS: BP 179/96; PULSE 98; O2SAT 91
[2022-11-11 21:47] LABS: Basophils # 0.1 10^3/uL (0.0-0.1); Eosinophils # 0.2 10^3/uL (0.0-0.8); Eosinophils % 2.5 %; Hematocrit 39.2 % (42.0-52.0); Lymphocytes # 0.8 10^3/uL (0.8-4.8); Lymphocytes % 12.2 %; Mean Corpuscular HGB Conc 33.2 g/dL (30.0-36.0); Mean Corpuscular Hemoglobin 28.8 pg (28.0-34.0); Mean Corpuscular Volume 86.9 fl (80-94); Mean Platelet Volume 10.2 fL (7.4-10.4); Monocytes # 0.7 10^3/uL (0.2-0.9); Monocytes % 10.4 %; Neutrophils # 5.07 10^3/uL (1.8-7.7); Neutrophils % 73.3 %; Nucleated Red Blood Cells % 0 %; Platelet Count 146 10^3/cmm (130-400); Red Blood Count 4.51 10^6/uL (4.1-5.3); Red Cell Distribution Width 13.9 % (12.1-15.1); White Blood Count 6.9 10^3/uL (4.0-10.0)
[2022-11-11 21:51] VITALS: RESP 15; O2SAT 92
[2022-11-11 21:51] LABS: Alanine Aminotransferase 30 U/L (0-41); Albumin Level 3.9 g/dL (3.5-5.2); Alkaline Phosphatase 139 U/L (40-130); Anion Gap 13.2 (5-19); Aspartate Amino Transferase 78 U/L (0-40); Blood Urea Nitrogen 11 mg/dL (6-20); Calcium 9.4 mg/dL (8.5-10.5); Carbon Dioxide 26 mmol/L (22-29); Chloride 97 mmol/L (98-107); Globulin 3.7 g/dL (1.3-4.6); Glomerular Filtration Rate 77.6 mL/min (90-130); Glucose 279 mg/dL (65-115); Lipase 42 U/L (13-60); Osmolality Calculated 285 mOsm/kg (285-295); Potassium 3.2 mmol/L (3.5-5.1); Sodium 133 mmol/L (136-145); Total Bilirubin 1.8 mg/dL (0.15-1.2); Total Protein 7.6 g/dL (6.6-8.7)
[2022-11-11] MEDS: ondansetron 2 mg/ML SDV 2 mL 4 MG IVP (21:51)
[2022-11-11] MEDS: morphine 4 mg/mL SDV 1 mL IVP (21:51)
[2022-11-11 22:38] VITALS: BP 133/86; PULSE 98; RESP 16; O2SAT 92
== END 2022-11-11 22:40 | disposition home or self-care (01) ==
PROVIDERS: Emergency Provider Emergency Medicine; PCP Nurse Practitioner Family
DX: R10.84 Generalized abdominal pain (principal); E11.9 Type 2 diabetes mellitus without complications; I25.10 Atherosclerotic heart disease of native coronary artery without angina pectoris; F17.210 Nicotine dependence, cigarettes, uncomplicated
CPT/HCPCS: 36415; 80053; 83690; 85025; 96374; 96375; 99284; J2270; J2405

== ENCOUNTER → 2022-11-19 13:01 | Outpatient (BNVA) | payer MEDICAID, SELFPAY | PROVIDERS: PCP Nurse Practitioner Family; Visit Provider Nurse Practitioner Family | DX: S62.347A Nondisplaced fracture of base of fifth metacarpal bone, left hand, initial encounter for closed fracture (principal); X58.XXXA Exposure to other specified factors, initial encounter | CPT/HCPCS: 73130; 99213 ==

== ENCOUNTER 2022-11-30 19:00 | Emergency (ER) | payer MEDICAID, SELFPAY ==
--- NOTE | 2022-11-30 19:02 | XRR_ITS ---
PROCEDURE INFORMATION: Exam: XR Chest Exam date and time: 11/30/2022 7:33 PM Age: 57 years old Clinical indication: Pain; Chest pressure; Additional info: Cp TECHNIQUE: Imaging protocol: Radiologic exam of the chest. Views: 1 view. COMPARISON: CR (CHEST, ) 11/02/2022 2:25 AM FINDINGS: Lungs: Shallow inspiration. Mild atelectasis in the left lung base. The right lung is clear. No consolidation. Pleural spaces: Unremarkable. No pleural effusion. No pneumothorax. Heart/Mediastinum: Unremarkable. No cardiomegaly. Bones/joints: Unremarkable. XR/XR chest 1V portable [id number] IMPRESSION: No acute findings.
--- NOTE | 2022-11-30 19:02 | ECG_ITS ---
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 Measurements Intervals [place] Rate: 108 P: 41 NV: 150 QRS: -27 QRSD: 90 T: 64 QT: 349 QTc: 469 Interpretive Statements SINUS TACHYCARDIA BORDERLINE LEFT AXIS DEVIATION [QRS AXIS < -20] MINIMAL ST DEPRESSION [0.025+ mV ST DEPRESSION] ABNORMAL RHYTHM ECG Compared to ECG 11/02/2022 04:05:37 ST (T wave) deviation now present Sinus rhythm no longer present Myocardial infarct finding no longer present Electronically Signed On 12-01-2022 11:24:19 CDT by Lou Carpenter M.D. [email or web address]
[2022-11-30 19:06] VITALS: BP 132/84; PULSE 108; RESP 18; TEMP 36.6; O2SAT 93; BMI 31.8
--- NOTE | 2022-11-30 19:09 | ED_ITS ---
HPI - Chest Pain General: Chief Complaint: Chest Pain Stated Complaint: Chest pain Time Seen by Provider: 11/30/22 19:02 Source: patient and EMS Mode of arrival: EMS Limitations: no limitations History of Present Illness: 57-year-old male states that he had been walking started having some chest pain just prior arrival states sharp pain in the center of his chest. Rates the pain a 1 out of 10 currently he denies any shortness of breath denies any fever denies any vomiting. Associated symptoms: Deny abdominal pain, dyspnea, fever(s), nausea or vomiting Review of Systems Const: Denies: fever(s), chills, body aches or change in appetite Eyes: Denies: blurry vision or eye discomfort Card: Reports: chest pain Resp: Denies: dyspnea GI: Denies: abdominal pain, nausea, vomiting or diarrhea Musc: Denies: neck pain or back pain Skin/Breast: Denies: rash Neuro: Denies: headache(s) PFSH ED PFSH: Medical History Atypical chest pain Benign essential hypertension with target blood pressure below 140/90 Chronic low back pain Coronary artery disease Dyslipidemia Epilepsy Glucose intolerance Hypothyroidism Obesity Smoker Type 2 diabetes mellitus Surgical History H/O umbilical hernia repair History of appendectomy Family History Father , at age 74 Family history of premature coronary artery disease Had a myocardial infarction in his 40s. Diabetes CAD (coronary artery disease) Chronic kidney disease (CKD) Stroke Brother Family history of premature coronary artery disease CAD (coronary artery disease) Had [place] in the 50s Diabetes Stroke Grandmother CAD (coronary artery disease) Diabetes Grandfather CAD (coronary artery disease) Mother , at age 84 CAD (coronary artery disease) Cancer Diabetes COVID-19 Family/Other Lung disease Denies family history of Clotting disorder Dementia Suicide Anesthesia complication Bleeding disorder Social History Smoking and tobacco status: current every day smoker Alcohol intake: current Alcohol intake frequency: holidays/special occasions only Substance/Drug Use: never Household members: spouse Housing: House Marital status: Current occupational status: disabled Physical Exam Const: COMMON NORMALS: no acute distress, patient oriented x3 and healthy appearing HENMT: COMMON NORMALS: normocephalic and atraumatic HEAD & SCALP: normocephalic and atraumatic Neck/C-Spine: COMMON NORMALS: full ROM and supple Chest: COMMONS NORMALS: normal inspection of the chest and normal palpation of entire chest wall Resp: COMMON NORMALS: normal respiratory effort, No retractions, No use of accessory muscles and clear to auscultation bilaterally AUSCULTATION: clear to auscultation bilaterally Cardio: COMMON NORMALS: regular rhythm and No murmurs present (Cardio) RATE: tachycardic RHYTHM: regular rhythm GI: COMMON NORMALS: Normal to inspection, nondistended, normoactive bowel sounds present, Soft to palpation, non-tender and no masses PALPATION: Yes Soft to palpation Extremity: COMMON NORMALS: normal to inspection and full ROM Neuro: COMMON NORMALS: patient oriented x3, moves all extremities and no focal motor deficits Psych: COMMON NORMALS: mental status grossly normal, Normal thought process present and cooperative THOUGHT PROCESS: Normal thought process present Skin: COMMON NORMALS: no rashes or lesions noted and no wounds GENERAL SKIN EXAM: no rashes or lesions noted Course Vital Signs: Vital signs: Vital Signs Temperature 98 F 11/30/22 19:06 Pulse Rate 78 11/30/22 21:06 Respiratory Rate 16 11/30/22 21:06 Blood Pressure 144/77 11/30/22 21:06 Pulse Oximetry 96 11/30/22 21:06 MDM - Chest Pain Medical Decision Making Patient presents for chest pain his troponins EKG here are normal no signs of acute coronary syndrome we will get him follow-up with cardiology he is to r eturn if worsening he understands agrees to plan. Medical Records I reviewed the patient's medical records. Lab Data I reviewed the patient's lab results. 11/30/22 18:45 11/30/22 18:45 Radiology Impressions Chest X-Ray 11/30/22 19:02 IMPRESSION: No acute findings. Laboratory Results WBC 7.7 10^3/uL (4.0-10.0) 11/30/22 18:45 RBC 4.87 10^6/uL (4.1-5.3) 11/30/22 18:45 Hgb 13.9 g/dL (11.7-16.6) 11/30/22 18:45 Hct 42.1 % (42.0-52.0) 11/30/22 18:45 MCV 86.4 fl (80-94) 11/30/22 18:45 MCH 28.5 pg (28.0-34.0) 11/30/22 18:45 MCHC 33.0 g/dL (30.0-36.0) 11/30/22 18:45 RDW 14.2 % (12.1-15.1) 11/30/22 18:45 Plt Count 141 10^3/cmm (130-400) 11/30/22 18:45 MPV 10.3 fL (7.4-10.4) 11/30/22 18:45 Neut % (Auto) 69.3 % 11/30/22 18:45 Lymph % (Auto) 14.6 % 11/30/22 18:45 Hunt % (Auto) 9.7 % 11/30/22 18:45 Eos % (Auto) 4.4 % 11/30/22 18:45 Baso % (Auto) 1.2 % 11/30/22 18:45 Neut # (Auto) 5.35 10^3/uL (1.8-7.7) 11/30/22 18:45 Lymph # (Auto) 1.1 10^3/uL (0.8-4.8) 11/30/22 18:45 Hunt # (Auto) 0.8 10^3/uL (0.2-0.9) 11/30/22 18:45 Eos # (Auto) 0.3 10^3/uL (0.0-0.8) 11/30/22 18:45 Baso # (Auto) 0.1 10^3/uL (0.0-0.1) 11/30/22 18:45 Nucleated RBC % (auto) 0 % 11/30/22 18:45 Nucleated RBCs # 0.0 /100WBC 11/30/22 18:45 Sodium 137 mmol/L (136-145) 11/30/22 18:45 Potassium 3.2 mmol/L (3.5-5.1) L 11/30/22 18:45 Chloride 99 mmol/L (98-107) 11/30/22 18:45 Carbon Dioxide 26 mmol/L (22-29) 11/30/22 18:45 Anion Gap 15.2 (5-19) 11/30/22 18:45 BUN 13 mg/dL (6-20) 11/30/22 18:45 Creatinine 1.1 mg/dL (0.7-1.2) 11/30/22 18:45 GFR Calculation 69.5 mL/min (90-130) L 11/30/22 18:45 Glucose 139 mg/dL (65-115) H 11/30/22 18:45 Calculated Osmolality 286 mOsm/kg (285-295) 11/30/22 18:45 Calcium 9.6 mg/dL (8.5-10.5) 11/30/22 18:45 Total Bilirubin 2.4 mg/dL (0.15-1.2) H 11/30/22 18:45 AST 50 U/L (0-40) H 11/30/22 18:45 ALT 27 U/L (0-41) 11/30/22 18:45 Alkaline Phosphatase 123 U/L (40-130) 11/30/22 18:45 Troponin T Baseline 18 ng/L (0-15) H 11/30/22 18:45 Troponin T 120 Minute 18.27 ng/L (0-15) H 11/30/22 21:00 Delta Troponin T 0.27 ABS# (0-10) 11/30/22 21:00 Total Protein 8.2 g/dL (6.6-8.7) 11/30/22 18:45 Albumin 4.0 g/dL (3.5-5.2) 11/30/22 18:45 Globulin 4.2 g/dL (1.3-4.6) 11/30/22 18:45 Lipase 34 U/L (13-60) 11/30/22 18:45 EKG Data EKG 1: I personally reviewed and interpreted this EKG as follows: EKG interpretation date: 11/30/22 EKG interpretation time: 19:06 Interpretation: sinus tach hr [address] or t wave abnormalities qrs 90 qtc 412 Discharge Plan Discharge Patient Disposition: Home Clinical Impression: Chest pain Condition: Stable Prescriptions: No Action venlafaxine 75 mg capsule,extended release 24hr 75 mg PO DAILY glipizide 5 mg tablet 5 mg PO DAILY@0700 metformin 1,000 mg tablet extended release 24hr 1,000 mg PO BID@0700,1900 Hold Instructions: Resume on 07/13/20. May restart this medication on 13 of July allopurinol 100 mg tablet 100 mg PO DAILY PRN (Reason: Stomach Upset) nitroglycerin 0.4 mg tablet, sublingual 0.4 mg SUBLINGUAL Q5M PRN (Reason: chest pain) 30 Days Qty: 30 3RF Rx Instructions: until response; do not exceed 3 doses per episode (DME) Fast Form Migdalia Villanueva See Rx Instructions .Route .MEDSUPPLY Qty: 1 0RF Rx Instructions: As directed Plavix 75 mg tablet 75 mg PO DAILY@0700 Qty: 90 3RF aspirin 81 mg tablet,chewable 81 mg PO DAILY@0700 Qty: 90 3RF metoprolol tartrate 25 mg tablet 25 mg PO BID@0700,1900 Qty: 180 2RF levothyroxine 150 mcg capsule 150 mcg PO DAILY lisinopril 40 mg tablet 40 mg PO DAILY Keppra 500 mg Tablet 500 mg PO BID acetaminophen [Tylenol Arthritis Pain] 650 mg tablet extended release 650 mg PO Q8H PRN (Reason: pain) Qty: 30 0RF Discharge Orders: Discharge ED (Routine); Ordered 11/30/22 Ordered By: Kerry Jeter Referrals: Dorita Flaherty FNP [Primary Care Provider] - Lou Carpenter MD [Physician] - 1-3 days Discharge Diet: Advance as tolerated Discharge Activity: Resume usual activity Patient Instructions: Chest Pain (ED) Coding Level of Care Code ED Communications Representative for Marva Bunn
[2022-11-30] MEDS: sodium chloride 0.9% 1,000 ML 999 ML IV (19:13)
[2022-11-30 19:20] LABS: Basophils # 0.1 10^3/uL (0.0-0.1); Basophils % 1.2 %; Eosinophils # 0.3 10^3/uL (0.0-0.8); Eosinophils % 4.4 %; Hematocrit 42.1 % (42.0-52.0); Hemoglobin 13.9 g/dL (11.7-16.6); Lymphocytes # 1.1 10^3/uL (0.8-4.8); Lymphocytes % 14.6 %; Mean Corpuscular Hemoglobin 28.5 pg (28.0-34.0); Mean Corpuscular Volume 86.4 fl (80-94); Mean Platelet Volume 10.3 fL (7.4-10.4); Monocytes # 0.8 10^3/uL (0.2-0.9); Monocytes % 9.7 %; Neutrophils # 5.35 10^3/uL (1.8-7.7); Neutrophils % 69.3 %; Nucleated Red Blood Cells % 0 %; Platelet Count 141 10^3/cmm (130-400); Red Blood Count 4.87 10^6/uL (4.1-5.3); Red Cell Distribution Width 14.2 % (12.1-15.1); White Blood Count 7.7 10^3/uL (4.0-10.0)
[2022-11-30 19:36] LABS: Troponin(5th) Baseline 18 ng/L (0-15)
[2022-11-30 19:38] LABS: Alanine Aminotransferase 27 U/L (0-41); Alkaline Phosphatase 123 U/L (40-130); Anion Gap 15.2 (5-19); Aspartate Amino Transferase 50 U/L (0-40); Blood Urea Nitrogen 13 mg/dL (6-20); Calcium 9.6 mg/dL (8.5-10.5); Carbon Dioxide 26 mmol/L (22-29); Chloride 99 mmol/L (98-107); Globulin 4.2 g/dL (1.3-4.6); Glomerular Filtration Rate 69.5 mL/min (90-130); Glucose 139 mg/dL (65-115); Lipase 34 U/L (13-60); Osmolality Calculated 286 mOsm/kg (285-295); Potassium 3.2 mmol/L (3.5-5.1); Sodium 137 mmol/L (136-145); Total Bilirubin 2.4 mg/dL (0.15-1.2); Total Protein 8.2 g/dL (6.6-8.7)
[2022-11-30 20:01] VITALS: BP 118/68; PULSE 87; RESP 16; O2SAT 95
[2022-11-30] MEDS: ondansetron 2 mg/ML SDV 2 mL 4 MG IVP (20:13)
[2022-11-30] MEDS: morphine 4 mg/mL SDV 1 mL IVP (20:13)
[2022-11-30 20:40] VITALS: BP 124/81; PULSE 83; RESP 16; O2SAT 94
[2022-11-30 21:06] VITALS: BP 144/77; PULSE 78; RESP 16; O2SAT 96
[2022-11-30 21:44] LABS: Troponin 5 2HR 18.27 ng/L (0-15)
[2022-11-30 21:46] LABS: Troponin 5 2HR Delta 0.27 ABS# (0-10)
[2022-11-30 22:17] VITALS: BP 144/77; PULSE 78; RESP 16; TEMP 36.6; O2SAT 96
--- NOTE | 2022-12-02 09:04 | DCPLANNER ---
Addendum entered by Kira Cerna 12/19/22 11:57: Patient had a follow up appointment scheduled with heart care - patient did attend appointment Addendum entered by Kira Cerna 12/02/22 15:13: Patient has a follow up appointment scheduled for Friday, December 16, 2022 at 1:[address] Noriega at [facility]. Original Note: rail manager had message to schedule a follow up appointment for patient with cardiology. rail manager sent patients information to the front office staff at [facility]. Patients information will be printed and reviewed. Clinic will call patient with appointment information.
== END 2022-11-30 22:18 | disposition home or self-care (01) ==
PROVIDERS: Emergency Provider Emergency Medicine; PCP Nurse Practitioner Family
DX: R07.9 Chest pain, unspecified (principal); Z79.82 Long term (current) use of aspirin; Z79.02 Long term (current) use of antithrombotics/antiplatelets; Z79.84 Long term (current) use of oral hypoglycemic drugs; F17.210 Nicotine dependence, cigarettes, uncomplicated; I10 Essential (primary) hypertension; I25.10 Atherosclerotic heart disease of native coronary artery without angina pectoris; E78.5 Hyperlipidemia, unspecified; E11.9 Type 2 diabetes mellitus without complications
CPT/HCPCS: 36415; 71045; 80053; 83690; 84484; 85025; 93005; 96361; 96374; 96375; 99285; J2270; J2405; J7030

== ENCOUNTER → 2022-12-16 10:39 | Outpatient (BNVA) | payer MEDICAID, SELFPAY | PROVIDERS: PCP Nurse Practitioner Family; Visit Provider Internal Medicine Cardiovascular Disease | DX: I25.118 Atherosclerotic heart disease of native coronary artery with other forms of angina pectoris (principal); Z95.5 Presence of coronary angioplasty implant and graft; K74.60 Unspecified cirrhosis of liver; R18.8 Other ascites; E78.5 Hyperlipidemia, unspecified; I10 Essential (primary) hypertension; E11.65 Type 2 diabetes mellitus with hyperglycemia; F17.200 Nicotine dependence, unspecified, uncomplicated; Z79.84 Long term (current) use of oral hypoglycemic drugs | CPT/HCPCS: 99214 ==

== ENCOUNTER → 2022-12-16 10:39 | Outpatient (BNVA) | payer MEDICAID, SELFPAY | PROVIDERS: PCP Nurse Practitioner Family; Visit Provider Internal Medicine Cardiovascular Disease | DX: I25.118 Atherosclerotic heart disease of native coronary artery with other forms of angina pectoris (principal); Z95.5 Presence of coronary angioplasty implant and graft; K74.60 Unspecified cirrhosis of liver; R18.8 Other ascites; E78.5 Hyperlipidemia, unspecified; I10 Essential (primary) hypertension; E11.65 Type 2 diabetes mellitus with hyperglycemia; Z79.84 Long term (current) use of oral hypoglycemic drugs; F17.200 Nicotine dependence, unspecified, uncomplicated | CPT/HCPCS: 99214 ==

== ENCOUNTER 2022-12-23 09:18 | Outpatient (CLI) | payer MEDICAID, SELFPAY ==
--- NOTE | 2022-12-23 | ECG_ITS ---
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 Interpretive Statements NAME OF STUDY: LEXISCAN SESTAMIBI STRESS TEST INDICATION: Chest Pain PROCEDURE: At the baseline, the EKG revealed normal sinus rhythm with poor R wave progression. Some nonspecific T wave changes in the high lateral leads. Minimal left axis deviation.. The baseline heart was 71 bpm with a blood pressue of 115/75 mm of Hg Lexiscan was infused over a period of 20 seconds. A total of 0.4 milligrams of Lexiscan was infused. The stress phase was continued for a total of 5 minutes. Heart rate at the end of the stress phase was 84 bpm with a blood pressure 104/69 mm of Hg. The EKG at the peak infusion revealed no significant changes. Sestamibi was injected 20 seconds after the Lexiscan infusion. Heart rate at the end of the recovery phase was 83 bpm with a blood pressure of 95/74 mm of Hg. CONCLUSION: 1. No significant EKG changes with the LexiScan infusion 2. No LexiScan induced chest pain or cardiac arrhythmia 3. Normal blood pressure and heart rate response 4. Sestamibi/sestamibi perfusion scan pending; see separate report. Electronically Signed On 12-24-2022 23:42:21 CDT by Sujata Flores M.D. [id number]
[2022-12-23 09:51] VITALS: BMI 30.8
--- NOTE | 2022-12-23 10:00 | NMCV_ITS ---
NM kayleen perf SPECT r/s* [id number] [place]onso Age: 57 Gender: M : 1965 Exam Date: 12/23/2022 10:41 Ordering Phys: Gage Noriega MD ([email or web address]) Technologist: LEONEL Acosta Exam Location: [facility] Indications: ATHEROSCLEROTIC HEART DISEASE STRESS TEST Please see separate stress test report in [facility] for full findings IMAGE PROTOCOL Rest/Stress 1 Lexiscan Day Radiopharmaceutical Dose (mCi) Administration Site Administered by Rest: Tc-99m 10.9 IV LEONEL Noriega Sestamibi Stress:Tc-99m 32.5 IV LEONEL Acosta Sestamisumit Rest: 23-Dec-2022 60 Discovery 630 Stress: 23-Dec-2022 30 Discovery 630 0.4mg Lexiscan. Images obtained in supine and prone position. SPECT RESULTS Technical Quality: Excellent Raw Data Analysis: Normal Image Corrections: No attenuation or motion correction applied Summed Stress Score: 0 Summed Rest Score: 0 Summed Difference Score: 0 PERFUSION FINDINGS Fairly uniform myocardial tracer uptake. No significant perfusion abnormalities FUNCTIONAL RESULTS (calculated via Gated SPECT) Stress Image LV EF (%): 71 Stress EDV (mL):89 TID: 1.3 Stress ESV (mL):26 FUNCTIONAL FINDINGS: Segmental wall motion analysis revealing no gross wall motion abnormalities IMPRESSIONS 1. Uniform myocardial tracer uptake with no significant perfusion abnormalities 2. Normal LV ejection fraction of 71%. 3. LV wall motion analysis revealing no gross wall motion abnormalities. 4. Normal LV volume 3. Elevated transient ischemic dilatation ratio, may suggest endocardial ischemia. However the positive predictive value of this finding is limited. Clinical correlation is recommended Dr Sujata Flores MD FAC (Electronically Signed) Final Date: 23 December 2022 15:01 S
[2022-12-23] MEDS: regadenoson 0.4 Mg/5 ml Syringe IVP (12:08)
[2022-12-23 12:26] VITALS: BP 105/76; PULSE 62
== END 2022-12-23 09:19 | disposition home or self-care (01) ==
LOC: CDL 09:20
PROVIDERS: PCP Nurse Practitioner Family; Visit Provider Internal Medicine Cardiovascular Disease
DX: R07.9 Chest pain, unspecified (principal); I25.10 Atherosclerotic heart disease of native coronary artery without angina pectoris
CPT/HCPCS: 36415; 78452; 93017; 96374; A9500; J2785

== ENCOUNTER 2022-12-26 11:40 | Outpatient (CLI) | payer MEDICAID, SELFPAY ==
--- NOTE | 2022-12-26 13:30 | USCV_ITS ---
Alonso Golden Age: 57 Gender: M : 1965 Exam Date: 12/26/2022 12:13 Ordering Phys: Gage Noriega MD ([email or web address]) Technologist: Anderson Gonzalez Exam Location: [facility] [place] Indication: chest pain BP: 121 / 75 HR: 76 Rhythm: Sinus Technical Quality: Adequate MEASUREMENTS (Male / Female) Normal Values 2D ECHO LV Diastolic Diameter PLAX 3.3 cm 4.2 - 5.9 / 3.9 - 5.3 cm LV Systolic Diameter PLAX 2.4 cm IVS Diastolic Thickness 1.6 cm 0.6 - 1.0 / 0.6 - 0.9 cm IVS Systolic Thickness 1.6 cm LVPW Diastolic Thickness 1.4 cm 0.6 - 1.0 / 0.6 - 0.9 cm LVPW Systolic Thickness 2.2 cm LVOT Diameter 2.0 cm LV Ejection Fraction 2D Teich 54.0 % LV Ejection Fraction MOD 2C 67.6 % LV Ejection Fraction 2C AL 69.1 % LA Diameter 3.5 cm M-MODE Aortic Annulus Diameter 3.4 cm LA Ao Ratio MM 1.1 MV E Point Septal Separation 0.6 cm DOPPLER AV Peak Velocity 131.0 cm/s LVOT Peak Velocity 130.0 cm/s AV Area Cont Eq vti 3.3 cm squared AV Area Cont Eq pk 3.2 cm squared MV Area PHT 4.6 cm squared Mitral E to A Ratio 0.9 MV E' Velocity 32.0 cm/s Mitral E to MV E' Ratio 9.2 Mitral E to LV E' Lateral Ratio 8.3 Mitral E to LV E' Septal Ratio 10.4 TR Peak Velocity 134.3 cm/s TR Peak Gradient 7.2 mmHg TV Peak E Velocity 98.0 cm/s Right Atrial Pressure 3.0 mmHg Pulmonary Artery Systolic Pressu 10.2 mmHg FINDINGS Left Ventricle Left ventricle is normal in size. LV systolic function is normal with EF of 60-65%. No regional wall motion abnormalities are seen. Moderate to severe LVH seen. Grade 1 diastolic dysfunction. Right Ventricle Normal in size and function Right Atrium Normal in size Left Atrium Normal in size Mitral Valve Structurally normal mitral valve. Trace mitral regurgitation. Aortic Valve Structurally normal aortic valve.No significant stenosis or regurgitation. Tricuspid Valve Trace tricuspid regurgitation. Pulmonary artery systolic pressure is normal. Pulmonic Valve Not well-visualized. Trace pulmonic regurgitation Pericardium Normal Aorta Normal in size IVC Appears to be normal CONCLUSIONS LV systolic function is normal with EF of 60 to 65%. Moderate to severe LVH seen. Grade 1 diastolic dysfunction. Trace mitral regurgitation. Trace tricuspid regurgitation Trace pulmonic regurgitation Compared to prior echocardiogram from 2019, no significant changes are seen Vernon Guillaume MD (Electronically Signed) Final Date: 26 December 2022 17:20 S
== END 2022-12-26 11:41 | disposition home or self-care (01) ==
PROVIDERS: PCP Nurse Practitioner Family; Visit Provider Internal Medicine Cardiovascular Disease
DX: R07.9 Chest pain, unspecified (principal); Z95.5 Presence of coronary angioplasty implant and graft; I51.7 Cardiomegaly; I51.89 Other ill-defined heart diseases
CPT/HCPCS: 93306; 99214

== ENCOUNTER 2023-02-13 21:06 | Emergency (ER) | payer MEDICAID, SELFPAY ==
[2023-02-13 21:07] VITALS: BP 178/110; PULSE 94; RESP 20; TEMP 36.6; O2SAT 95; BMI 32.0
--- NOTE | 2023-02-13 21:07 | USR_ITS ---
PROCEDURE INFORMATION: Exam: US Abdomen, Limited; Right Upper Quadrant Exam date and time: 02/13/2023 9:18 PM Age: 58 years old Clinical indication: Abdominal pain; Flank; Right lower quadrant (rlq); Prior surgery; Surgery date: 6+ months; Surgery type: Lapchole 2002; Patient HX: Elevated tbili = 1.8, elevated ast = 48, normal alt = 18, elevaged alkphos = 155, normal lipase = 45. Patient has long history of cirrhosis, dating back several years. ; Additional info: Ruq pain TECHNIQUE: Imaging protocol: Real time ultrasound of the abdomen with image documentation. Limited exam focused on the right upper quadrant. COMPARISON: US abdomen complete* [id number] 05/02/2019 10:39 PM FINDINGS: Liver: Coarsened echotexture of the liver. Liver measures 22 cm in length. Nodular liver contour. No mass lesion seen. Normal hepatopetal flow in the main portal vein. Gallbladder: Gallbladder is surgically absent. Biliary ducts: No biliary ductal dilation. Pancreas: Visualized portions of the pancreas are unremarkable. Right kidney: Right kidney is unremarkable. Intraperitoneal space: Small perihepatic ascites. Other findings: No aneurysm in the field of view. US/US gall bladder [id number] IMPRESSION: 1. Cirrhotic morphology of the liver which is enlarged measuring 22 cm in length. 2. Small perihepatic ascites.
[2023-02-13 21:21] LABS: Basophils # 0.1 10^3/uL (0.0-0.1); Basophils % 1.6 %; Eosinophils # 0.2 10^3/uL (0.0-0.8); Eosinophils % 3.4 %; Hematocrit 41.5 % (37-53); Lymphocytes # 0.9 10^3/uL (0.8-4.8); Lymphocytes % 13.2 %; Mean Corpuscular HGB Conc 34.9 g/dL (30-55); Mean Corpuscular Volume 85.9 fl (82-101); Monocytes # 0.5 10^3/uL (0.2-0.9); Monocytes % 7.1 %; Neutrophils # 4.73 10^3/uL (1.8-7.7); Neutrophils % 73.5 %; Nucleated Red Blood Cells % 0 %; Platelet Count 126 10^3/cmm (157-399); Red Blood Count 4.83 10^6/uL (3.85-5.65); Red Cell Distribution Width 14.9 % (12.1-15.1); White Blood Count 6.44 10^3/uL (3.29-11.43)
[2023-02-13 21:37] LABS: Alanine Aminotransferase 18 U/L (0-41); Alkaline Phosphatase 155 U/L (40-130); Aspartate Amino Transferase 48 U/L (0-40); Blood Urea Nitrogen 8 mg/dL (6-20); Calcium 10.3 mg/dL (8.5-10.5); Carbon Dioxide 30 mmol/L (22-29); Chloride 96 mmol/L (98-107); Globulin 4.3 g/dL (1.3-4.6); Glomerular Filtration Rate 62.6 mL/min (90-130); Glucose 207 mg/dL (65-115); Lipase 45 U/L (13-60); Osmolality Calculated 284 mOsm/kg (285-295); Sodium 135 mmol/L (136-145); Total Bilirubin 1.8 mg/dL (0.15-1.2); Total Protein 8.3 g/dL (6.6-8.7)
--- NOTE | 2023-02-13 22:00 | W.ED.ABDPA2 ---
HPI - Abdominal Pain General: Chief Complaint: Abdominal Pain Stated Complaint: RUQ Pain Time Seen by Provider: 02/13/23 21:07 Source: patient Mode of arrival: ambulatory Limitations: no limitations History of Present Illness: 58-year-old male has a history of cirrhosis he has been having some increased right upper quadrant pain over the last few days he states he does not take any pain meds at home states pain is currently 5 out of 10 he had a history of a cholecystectomy denies any fevers denies any vomiting denies any diarrhea. Associated Symptoms: Denies chills, diarrhea, fever(s), nausea and vomiting Review of Systems Const: Denies: fever(s), chills, body aches or change in appetite ENMT: Denies: throat pain or dental pain Card: Denies: chest pain Resp: Denies: dyspnea GI: Reports: abdominal pain; Denies: nausea, vomiting or diarrhea Musc: Denies: neck pain or back pain Skin/Breast: Denies: rash Neuro: Denies: headache(s) PFSH ED PFSH: Medical History Atypical chest pain Benign essential hypertension with target blood pressure below 140/90 Chronic low back pain Coronary artery disease Dyslipidemia Epilepsy Glucose intolerance Hypothyroidism Obesity Smoker Type 2 diabetes mellitus Surgical History H/O heart artery stent 07/11/2020-Cardiac stent placement mid LAD H/O umbilical hernia repair History of appendectomy Family History Father , at age 74 Family history of premature coronary artery disease Had a myocardial infarction in his 40s. Diabetes CAD (coronary artery disease) Chronic kidney disease (CKD) Stroke Brother Family history of premature coronary artery disease CAD (coronary artery disease) Had [place] in the 50s Diabetes Stroke Grandmother CAD (coronary artery disease) Diabetes Grandfather CAD (coronary artery disease) Mother , at age 84 CAD (coronary artery disease) Cancer Diabetes COVID-19 Family/Other Lung disease Denies family history of Clotting disorder Dementia Suicide Anesthesia complication Bleeding disorder Social History Smoking and tobacco status: current every day smoker Alcohol intake: current Alcohol intake frequency: holidays/special occasions only Substance/Drug Use: never Household members: spouse Housing: House Marital status: Current occupational status: disabled Physical Exam Const: COMMON NORMALS: no acute distress and patient oriented x3 HENMT: COMMON NORMALS: normocephalic and atraumatic HEAD & SCALP: normocephalic and atraumatic Neck/C-Spine: COMMON NORMALS: full ROM and supple Chest: COMMONS NORMALS: normal inspection of the chest and normal palpation of entire chest wall Resp: COMMON NORMALS: normal respiratory effort, No retractions, No use of accessory muscles and clear to auscultation bilaterally AUSCULTATION: clear to auscultation bilaterally Cardio: COMMON NORMALS: regular rate, regular rhythm and No murmurs present (Cardio) RATE: regular rate RHYTHM: regular rhythm GI: COMMON NORMALS: Normal to inspection, nondistended, normoactive bowel sounds present, Soft to palpation, non-tender and no masses PALPATION: Yes Soft to palpation Extremity: COMMON NORMALS: normal to inspection and full ROM Neuro: COMMON NORMALS: patient oriented x3 Psych: COMMON NORMALS: mental status grossly normal, Normal thought process present and cooperative THOUGHT PROCESS: Normal thought process present Skin: COMMON NORMALS: no rashes or lesions noted and no wounds GENERAL SKIN EXAM: no rashes or lesions noted Course Vital Signs: Vital signs: Vital Signs Temperature 98 F 02/13/23 21:07 Pulse Rate 94 02/13/23 21:07 Respiratory Rate 20 H 02/13/23 21:07 Blood Pressure 178/110 02/13/23 21:07 Pulse Oximetry 95 02/13/23 21:07 MDM - Abdominal Pain Medical Decision Making Patient presents with abdominal pain has been chronic in nature we will prescribe pain meds for home he is stable for discharge she is follow-up with PCP and return if worsening. Medical Records I reviewed the patient's medical records. Lab Data I reviewed the patient's lab results. 02/13/23 21:15 02/13/23 21:15 Labs/Radiology: Laboratory Results WBC 6.44 10^3/uL (3.29-11.43) 02/13/23 21:15 RBC 4.83 10^6/uL (3.85-5.65) 02/13/23 21:15 Hgb 14.50 g/dL (11.27-16.99) 02/13/23 21:15 Hct 41.5 % (37-53) 02/13/23 21:15 MCV 85.9 fl (82-101) 02/13/23 21:15 MCH 30.0 pg (27-33) 02/13/23 21:15 MCHC 34.9 g/dL (30-55) 02/13/23 21:15 RDW 14.9 % (12.1-15.1) 02/13/23 21:15 Plt Count 126 10^3/cmm (157-399) L 02/13/23 21:15 MPV 10.0 fL (7.4-10.4) 02/13/23 21:15 Neut % (Auto) 73.5 % 02/13/23 21:15 Lymph % (Auto) 13.2 % 02/13/23 21:15 [place] % (Auto) 7.1 % 02/13/23 21:15 Eos % (Auto) 3.4 % 02/13/23 21:15 Baso % (Auto) 1.6 % 02/13/23 21:15 Neut # (Auto) 4.73 10^3/uL (1.8-7.7) 02/13/23 21:15 Lymph # (Auto) 0.9 10^3/uL (0.8-4.8) 02/13/23 21:15 [place] # (Auto) 0.5 10^3/uL (0.2-0.9) 02/13/23 21:15 Eos # (Auto) 0.2 10^3/uL (0.0-0.8) 02/13/23 21:15 Baso # (Auto) 0.1 10^3/uL (0.0-0.1) 02/13/23 21:15 Nucleated RBC % (auto) 0 % 02/13/23 21:15 Nucleated RBCs # 0.0 /100WBC 02/13/23 21:15 Sodium 135 mmol/L (136-145) L 02/13/23 21:15 Potassium 3.0 mmol/L (3.5-5.1) L 02/13/23 21:15 Chloride 96 mmol/L (98-107) L 02/13/23 21:15 Carbon Dioxide 30 mmol/L (22-29) H 02/13/23 21:15 Anion Gap 12.0 (5-19) 02/13/23 21:15 BUN 8 mg/dL (6-20) 02/13/23 21:15 Creatinine 1.2 mg/dL (0.7-1.2) 02/13/23 21:15 GFR Calculation 62.6 mL/min (90-130) L 02/13/23 21:15 Glucose 207 mg/dL (65-115) H 02/13/23 21:15 Calculated Osmolality 284 mOsm/kg (285-295) L 02/13/23 21:15 Calcium 10.3 mg/dL (8.5-10.5) 02/13/23 21:15 Total Bilirubin 1.8 mg/dL (0.15-1.2) H 02/13/23 21:15 AST 48 U/L (0-40) H 02/13/23 21:15 ALT 18 U/L (0-41) 02/13/23 21:15 Alkaline Phosphatase 155 U/L (40-130) H 02/13/23 21:15 Total Protein 8.3 g/dL (6.6-8.7) 02/13/23 21:15 Albumin 4.0 g/dL (3.5-5.2) 02/13/23 21:15 Globulin 4.3 g/dL (1.3-4.6) 02/13/23 21:15 Lipase 45 U/L (13-60) 02/13/23 21:15 XR interpretation done by ED provider, pending radiology final review Discharge Plan Discharge Patient Disposition: Home Clinical Impression: Abdominal pain Condition: Stable Prescriptions: New hydrocodone-acetaminophen 5-325 mg tablet 1 tab PO Q6H PRN (Reason: pain) Qty: 14 0RF No Action venlafaxine 75 mg capsule,extended release 24hr 75 mg PO DAILY glipizide 5 mg tablet 5 mg PO DAILY@0700 metformin 1,000 mg tablet extended release 24hr 1,000 mg PO BID@0700,1900 Hold Instructions: Resume on 07/13/20. May restart this medication on 13 of July allopurinol 100 mg tablet 100 mg PO DAILY PRN (Reason: Stomach Upset) nitroglycerin 0.4 mg tablet, sublingual 0.4 mg SUBLINGUAL Q5M PRN (Reason: chest pain) 30 Days Qty: 30 3RF Rx Instructions: until response; do not exceed 3 doses per episode (DME) Fast Form Migdalia Villanueva See Rx Instructions .Route .MEDSUPPLY Qty: 1 0RF Rx Instructions: As directed metoprolol tartrate 25 mg tablet 25 mg PO BID Qty: 180 4RF Plavix 75 mg tablet 75 mg PO DAILY@0700 Qty: 90 3RF aspirin 81 mg tablet,chewable 81 mg PO DAILY@0700 Qty: 90 3RF levothyroxine 150 mcg capsule 150 mcg PO DAILY lisinopril 40 mg tablet 40 mg PO DAILY Keppra 500 mg tablet 750 mg PO BID acetaminophen [Tylenol Arthritis Pain] 650 mg tablet extended release 650 mg PO Q8H PRN (Reason: pain) Qty: 30 0RF Discharge Orders: Discharge ED (Routine); Ordered 02/13/23 Ordered By: Kerry Jeter Referrals: Dorita Flaherty FNP [Primary Care Provider] - 1-3 days Discharge Diet: Advance as tolerated Discharge Activity: Resume usual activity Patient Instructions: Abdominal Pain (ED), Opioid Safety Coding Level of Care Code ED Insurance Agency Sales Manager for Marva Bunn
[2023-02-13 22:05] VITALS: RESP 18
[2023-02-13] MEDS: morphine 4 mg/mL SDV 1 mL IVP (22:05)
[2023-02-13] MEDS: ondansetron 2 mg/ML SDV 2 mL 4 MG IVP (22:05)
[2023-02-13 22:16] VITALS: BP 178/110; PULSE 84; O2SAT 93
== END 2023-02-13 22:23 | disposition home or self-care (01) ==
PROVIDERS: Emergency Provider Emergency Medicine; PCP Nurse Practitioner Family
DX: R10.11 Right upper quadrant pain (principal); Z79.02 Long term (current) use of antithrombotics/antiplatelets; Z79.82 Long term (current) use of aspirin; Z79.84 Long term (current) use of oral hypoglycemic drugs; F17.210 Nicotine dependence, cigarettes, uncomplicated; I10 Essential (primary) hypertension; I25.10 Atherosclerotic heart disease of native coronary artery without angina pectoris; E78.5 Hyperlipidemia, unspecified; E11.9 Type 2 diabetes mellitus without complications
CPT/HCPCS: 76705; 80053; 83690; 85025; 96374; 96375; 99284; J2270; J2405

== ENCOUNTER 2023-02-18 12:08 | Emergency (ER) | payer MEDICAID, SELFPAY ==
[2023-02-18 12:17] VITALS: BP 117/80; PULSE 100; RESP 18; TEMP 36.9; O2SAT 93; BMI 33.0
--- NOTE | 2023-02-18 12:23 | ECG_ITS ---
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 Measurements Intervals [place] Rate: 87 P: 23 MA: 164 QRS: -29 QRSD: 99 T: 70 QT: 410 QTc: 494 Interpretive Statements SINUS RHYTHM MINIMAL VOLTAGE CRITERIA FOR LVH, CONSIDER NORMAL VARIANT [MEETS CRITERIA IN ONE OF: R(aVL), S(V1), R(V5), R(V5/V6)+S(V1)] POSSIBLE LATERAL MYOCARDIAL INFARCTION , OF INDETERMINATE AGE [30 ms Q WAVE IN I/aVL/V5/V6] Compared to ECG 11/30/2022 19:06:06 Myocardial infarct finding now present Sinus tachycardia no longer present ST (T wave) deviation no longer present Electronically Signed On 02-18-2023 15:20:14 CDT by Vernon Guillaume M.D. [id number]
--- NOTE | 2023-02-18 12:24 | W.ED.NAVMDI ---
HPI - Nausea/Vomiting/Diarrhea General: Chief complaint: Nausea/Vomiting/Diarrhea Stated complaint: NV, dizzy Time Seen by Provider: 02/18/23 12:15 Source: patient Mode of arrival: ambulatory Limitations: no limitations History of Present Illness: Patient is a 58-year-old male who presents the emergency room with dizziness and nausea. Patient states that he was eating breakfast at a local caf? around 11:30 AM and stated that whenever he stood up to go home, patient felt as though he was going to pass out and became nauseous shortly after. Patient did not fall or hit his head and shortly after just sat back in the chair. Patient symptoms subsided approximately 30 seconds after the fact. Patient denies any chest pain or shortness of breath or vomiting at this time. Denies any improving or worsening factors. No other complaints at this time. MD elicited complaint: nausea Associated nausea: Yes Associated symtoms: Reports dizziness and nausea; Denies change in vision, chest pain or palpitations Review of Systems Const: Denies: fever(s) or chills Eyes: Denies: change in vision ENMT: Denies: throat pain or mouth pain Card: Denies: chest pain or palpitations Resp: Denies: dyspnea or productive cough GI: Reports: nausea; Denies: abdominal pain or vomiting : Denies: flank pain Musc: Denies: neck pain or back pain Skin/Breast: Denies: rash Neuro: Reports: dizziness PFSH ED PFSH: Medical History Atypical chest pain Benign essential hypertension with target blood pressure below 140/90 Chronic low back pain Coronary artery disease Dyslipidemia Epilepsy Glucose intolerance Hypothyroidism Obesity Smoker Type 2 diabetes mellitus Surgical History H/O heart artery stent 07/11/2020-Cardiac stent placement mid LAD H/O umbilical hernia repair History of appendectomy Family History Father , at age 74 Family history of premature coronary artery disease Had a myocardial infarction in his 40s. Diabetes CAD (coronary artery disease) Chronic kidney disease (CKD) Stroke Brother Family history of premature coronary artery disease CAD (coronary artery disease) Had [place] in the 50s Diabetes Stroke Grandmother CAD (coronary artery disease) Diabetes Grandfather CAD (coronary artery disease) Mother , at age 84 CAD (coronary artery disease) Cancer Diabetes COVID-19 Family/Other Lung disease Denies family history of Clotting disorder Dementia Suicide Anesthesia complication Bleeding disorder Social History Smoking and tobacco status: current every day smoker Alcohol intake: current Alcohol intake frequency: holidays/special occasions only Substance/Drug Use: never Household members: spouse Housing: House Marital status: Current occupational status: disabled Physical Exam Const: COMMON NORMALS: patient oriented x3 and alert GENERAL APPEARANCE: cooperative ORIENTATION/CONSCIOUSNESS: Yes awake HENMT: COMMON NORMALS: normocephalic HEAD & SCALP: normocephalic Eye: COMMON NORMALS: Equal, round and reactive pupils present and EOMs intact bilaterally PUPIL: Yes Equal, round and reactive pupils present Neck/C-Spine: COMMON NORMALS: full ROM, no lymphadenopathy and no JVD Lymph: LYMPHATIC: no lymphadenopathy noted Chest: CHEST: Yes Symmetrical chest wall rise Resp: COMMON NORMALS: normal respiratory effort and clear to auscultation bilaterally EFFORT & INSPECTION: Yes symmetric chest movement AUSCULTATION: clear to auscultation bilaterally Cardio: COMMON NORMALS: no JVD and S1 normal heart sound present HEART SOUNDS: S1 normal heart sound present GI: COMMON NORMALS: Normal to inspection, nondistended, normoactive bowel sounds present : COMMON NORMALS: Yes no CVA tenderness BLADDER/KIDNEY EXAM: Yes no CVA tenderness Back/Pelvis: COMMON NORMALS: no CVA tenderness Extremity: COMMON NORMALS: normal to inspection Neuro: COMMON NORMALS: patient oriented x3 SENSORIUM/ORIENTATION: Yes alert Course Vital Signs: Vital signs: Vital Signs Temperature 98.5 F 02/18/23 12:17 Pulse Rate 100 02/18/23 12:17 Respiratory Rate 18 02/18/23 12:17 Blood Pressure 117/80 02/18/23 12:17 Pulse Oximetry 93 02/18/23 12:17 Oxygen Delivery Me thod Room Air 02/18/23 12:17 MDM - Nausea/Vomiting/Diarrhea Medical Decision Making Patient presents here with a near syncopal event he is well-appearing here blood work is stable he has no signs of cardiac cause he is stable for discharge she is follow-up PCP and return if worsening Medical Records I reviewed the patient's medical records. Lab Data I reviewed the patient's lab results. 02/18/23 12:02/18/23 12: Laboratory Results WBC 10.41 10^3/uL (3.29-11.43) 02/18/23 12: RBC 4.85 10^6/uL (3.85-5.65) 02/18/23 12: Hgb 14.30 g/dL (11.27-16.99) 02/18/23 12: Hct 42.5 % (37-53) 02/18/23 12: MCV 87.6 fl (82-101) 02/18/23 12: MCH 29.5 pg (27-33) 02/18/23 12: MCHC 33.6 g/dL (30-55) 02/18/23 12: RDW 15.0 % (12.1-15.1) 02/18/23 12: Plt Count 130 10^3/cmm (157-399) L 02/18/23 12: MPV 9.9 fL (7.4-10.4) 02/18/23 12: Neut % (Auto) 78.7 % 02/18/23 12: Lymph % (Auto) 11.2 % 02/18/23 12: [place] % (Auto) 6.7 % 02/18/23 12: Eos % (Auto) 1.8 % 02/18/23 12: Baso % (Auto) 1.2 % 02/18/23 12: Neut # (Auto) 8.18 10^3/uL (1.8-7.7) H 02/18/23 12: Lymph # (Auto) 1.2 10^3/uL (0.8-4.8) 02/18/23 12: [place] # (Auto) 0.7 10^3/uL (0.2-0.9) 02/18/23 12: Eos # (Auto) 0.2 10^3/uL (0.0-0.8) 02/18/23 12: Baso # (Auto) 0.1 10^3/uL (0.0-0.1) 02/18/23 12:26 Nucleated RBC % (auto) 0 % 02/18/23 12:26 Nucleated RBCs # 0.0 /100WBC 02/18/23 12:26 Sodium 139 mmol/L (136-145) 02/18/23 12:26 Potassium 3.2 mmol/L (3.5-5.1) L 02/18/23 12:26 Chloride 100 mmol/L (98-107) 02/18/23 12:26 Carbon Dioxide 27 mmol/L (22-29) 02/18/23 12:26 Anion Gap 15.2 (5-19) 02/18/23 12:26 BUN 13 mg/dL (6-20) 02/18/23 12:26 Creatinine 1.4 mg/dL (0.7-1.2) H 02/18/23 12:26 GFR Calculation 52.4 mL/min (90-130) L 02/18/23 12:26 Glucose 227 mg/dL (65-115) H 02/18/23 12:26 Calculated Osmolality 295 mOsm/kg (285-295) 02/18/23 12:26 Calcium 9.0 mg/dL (8.5-10.5) 02/18/23 12:26 Total Bilirubin 2.6 mg/dL (0.15-1.2) H 02/18/23 12:26 AST 48 U/L (0-40) H 02/18/23 12:26 ALT 20 U/L (0-41) 02/18/23 12:26 Alkaline Phosphatase 130 U/L (40-130) 02/18/23 12:26 Total Protein 8.3 g/dL (6.6-8.7) 02/18/23 12:26 Albumin 3.8 g/dL (3.5-5.2) 02/18/23 12:26 Globulin 4.5 g/dL (1.3-4.6) 02/18/23 12:26 Lipase 26 U/L (13-60) 02/18/23 12:26 All radiology interpretation(s) finalized by discharge Discharge Plan Discharge Patient Disposition: Home Clinical Impression: Near syncope, Vomiting Condition: Stable Prescriptions: New ondansetron 4 mg tablet,disintegrating 4 mg PO Q6H PRN (Reason: nausea and vomiting) Qty: 14 0RF No Action venlafaxine 75 mg capsule,extended release 24hr 75 mg PO DAILY glipizide 5 mg tablet 5 mg PO DAILY@0700 metformin 1,000 mg tablet extended release 24hr 1,000 mg PO BID@0700,1900 Hold Instructions: Resume on 07/13/20. May restart this medication on 13 of July allopurinol 100 mg tablet 100 mg PO DAILY PRN (Reason: Stomach Upset) nitroglycerin 0.4 mg tablet, sublingual 0.4 mg SUBLINGUAL Q5M PRN (Reason: chest pain) 30 Days Qty: 30 3RF Rx Instructions: until response; do not exceed 3 doses per episode (DME) Fast Form Migdalia Hansbetina See Rx Instructions .Route .MEDSUPPLY Qty: 1 0RF Rx Instructions: As directed metoprolol tartrate 25 mg tablet 25 mg PO BID Qty: 180 4RF Plavix 75 mg tablet 75 mg PO DAILY@0700 Qty: 90 3RF aspirin 81 mg tablet,chewable 81 mg PO DAILY@0700 Qty: 90 3RF levothyroxine 150 mcg capsule 150 mcg PO DAILY lisinopril 40 mg tablet 40 mg PO DAILY Keppra 500 mg tablet 750 mg PO BID acetaminophen [Tylenol Arthritis Pain] 650 mg tablet extended release 650 mg PO Q8H PRN (Reason: pain) Qty: 30 0RF hydrocodone-acetaminophen 5-325 mg tablet 1 tab PO Q6H PRN (Reason: pain) Qty: 14 0RF Discharge Orders: Discharge ED (Routine); Ordered 02/18/23 Ordered By: Kerry Jeter Referrals: Dorita Flaherty FNP [Primary Care Provider] - 1-3 days Discharge Diet: Advance as tolerated Discharge Activity: Resume usual activity Patient Instructions: Near Syncope (ED) Coding Level of Care Code ED Component Assembler for Marva Bunn
[2023-02-18 12:33] LABS: Basophils # 0.1 10^3/uL (0.0-0.1); Basophils % 1.2 %; Eosinophils # 0.2 10^3/uL (0.0-0.8); Eosinophils % 1.8 %; Hematocrit 42.5 % (37-53); Lymphocytes # 1.2 10^3/uL (0.8-4.8); Lymphocytes % 11.2 %; Mean Corpuscular HGB Conc 33.6 g/dL (30-55); Mean Corpuscular Hemoglobin 29.5 pg (27-33); Mean Corpuscular Volume 87.6 fl (82-101); Mean Platelet Volume 9.9 fL (7.4-10.4); Monocytes # 0.7 10^3/uL (0.2-0.9); Monocytes % 6.7 %; Neutrophils # 8.18 10^3/uL (1.8-7.7); Neutrophils % 78.7 %; Nucleated Red Blood Cells % 0 %; Platelet Count 130 10^3/cmm (157-399); Red Blood Count 4.85 10^6/uL (3.85-5.65); White Blood Count 10.41 10^3/uL (3.29-11.43)
[2023-02-18] MEDS: ondansetron 2 mg/ML SDV 2 mL 4 MG IVP (12:33)
[2023-02-18] MEDS: sodium chloride 0.9% 1,000 ML 999 ML IV (12:33)
[2023-02-18 12:57] LABS: Alanine Aminotransferase 20 U/L (0-41); Albumin Level 3.8 g/dL (3.5-5.2); Alkaline Phosphatase 130 U/L (40-130); Anion Gap 15.2 (5-19); Aspartate Amino Transferase 48 U/L (0-40); Blood Urea Nitrogen 13 mg/dL (6-20); Carbon Dioxide 27 mmol/L (22-29); Chloride 100 mmol/L (98-107); Globulin 4.5 g/dL (1.3-4.6); Glomerular Filtration Rate 52.4 mL/min (90-130); Glucose 227 mg/dL (65-115); Lipase 26 U/L (13-60); Osmolality Calculated 295 mOsm/kg (285-295); Potassium 3.2 mmol/L (3.5-5.1); Sodium 139 mmol/L (136-145); Total Bilirubin 2.6 mg/dL (0.15-1.2); Total Protein 8.3 g/dL (6.6-8.7)
== END 2023-02-18 13:15 | disposition home or self-care (01) ==
PROVIDERS: Emergency Provider Emergency Medicine; PCP Nurse Practitioner Family
DX: R55 Syncope and collapse (principal); R11.11 Vomiting without nausea; Z79.02 Long term (current) use of antithrombotics/antiplatelets; Z79.82 Long term (current) use of aspirin; Z79.84 Long term (current) use of oral hypoglycemic drugs; F17.210 Nicotine dependence, cigarettes, uncomplicated; I10 Essential (primary) hypertension; I25.10 Atherosclerotic heart disease of native coronary artery without angina pectoris; E78.5 Hyperlipidemia, unspecified; E11.9 Type 2 diabetes mellitus without complications
CPT/HCPCS: 80053; 83690; 85025; 93005; 96374; 99284; J2405; J7030

== ENCOUNTER 2023-02-27 22:02 | Emergency (ER) | payer MEDICAID, SELFPAY ==
[2023-02-27 22:03] VITALS: BP 176/109; PULSE 89; RESP 20; TEMP 36.6; O2SAT 97; BMI 35.9
--- NOTE | 2023-02-27 22:04 | W.ED.ABDPA2 ---
HPI - Abdominal Pain General: Chief Complaint: Abdominal Pain Stated Complaint: BACK/ABD PAIN Time Seen by Provider: 02/27/23 22:04 History of Present Illness: A 58-year-old male patient comes in today with mid upper back and lower back pain. Patient reports some increase activity and exacerbating his pain. Patient denies any falls or new injuries. Patient does have a history of lumbar stenosis and the radiculopathy. Patient appears nontoxic. Review of Systems General: Reports: 10 or more systems reviewed and unremarkable except in HPI and below Musc: Reports: back pain PFSH ED PFSH: Medical History Atypical chest pain Benign essential hypertension with target blood pressure below 140/90 Chronic low back pain Coronary artery disease Dyslipidemia Epilepsy Glucose intolerance Hypothyroidism Obesity Smoker Type 2 diabetes mellitus Surgical History H/O heart artery stent 07/11/2020-Cardiac stent placement mid LAD H/O umbilical hernia repair History of appendectomy Family History Father , at age 74 Family history of premature coronary artery disease Had a myocardial infarction in his 40s. Diabetes CAD (coronary artery disease) Chronic kidney disease (CKD) Stroke Brother Family history of premature coronary artery disease CAD (coronary artery disease) Had [place] in the 50s Diabetes Stroke Grandmother CAD (coronary artery disease) Diabetes Grandfather CAD (coronary artery disease) Mother , at age 84 CAD (coronary artery disease) Cancer Diabetes COVID-19 Family/Other Lung disease Denies family history of Clotting disorder Dementia Suicide Anesthesia complication Bleeding disorder Social History Smoking and tobacco/nicotine status: current every day tobacco/nicotine user Alcohol intake: current Alcohol intake frequency: holidays/special occasions only Substance/Drug Use: never Household members: spouse Housing: House Marital status: Current occupational status: disabled Physical Exam Const: COMMON NORMALS: alert HENMT: COMMON NORMALS: normocephalic HEAD & SCALP: normocephalic Neck/C-Spine: COMMON NORMALS: full ROM Resp: COMMON NORMALS: normal respiratory effort and clear to auscultation bilaterally AUSCULTATION: clear to auscultation bilaterally Cardio: COMMON NORMALS: regular rate RATE: regular rate Back/Pelvis: THORACIC SPINE/UPPER BACK: Yes thoracic spinal tenderness T-spine tenderness location: T6 and T7 and Yes paraspinal muscle tenderness LUMBAR SPINE/LOWER BACK: Yes lumbar spinal tenderness Lumbar spinal tenderness location: L4 and L5 Extremity: COMMON NORMALS: no pedal edema Neuro: SENSORIUM/ORIENTATION: Yes alert Skin: COMMON NORMALS: turgor normal GENERAL SKIN EXAM: turgor normal Course Vital Signs: Vital signs: Vital Signs Temperature 98 F 02/27/23 22:03 Pulse Rate 89 02/27/23 22:03 Respiratory Rate 20 H 02/27/23 22:03 Blood Pressure 176/109 02/27/23 22:03 Pulse Oximetry 97 02/27/23 22:03 MDM - Abdominal Pain Medical Decision Making Patient comes in tonight with complaints of mid and low back pain. Patient denies any falls or injuries. On exam patient has normal range of motion of extremities. Patient does have some tenderness around T6-T7, and T4-T5. Paraspinal muscle tenderness is noted in between the shoulder blades. Patient moves all extremities well. Vital signs are normal except for some elevated blood pressure. Differential diagnosis includes intervertebral disc disease, facet arthropathy, malingering, substance use disorder. Patient was given 4 mg of morphine for acute pain. There is documentation in the chart stating he is not to have controlled substances prescribed to him. I wrote for patient to get some methocarbamol 750 mg 1 tablet 3 times a day to use as needed for back pain. Patient was upset regarding the no prescription for hydrocodone. Patient stated understanding of care plan and need for follow-up or return to the ER. No radiology studies performed this visit Discharge Plan Discharge Patient Disposition: Home Clinical Impression: Back pain Qualifiers: Back pain location: low back pain Chronicity: unspecified Back pain laterality: midline Sciatica presence: without sciatica Qualified Code(s): M54.50 - Low back pain, unspecified Condition: Stable Prescriptions: New methocarbamol 750 mg tablet 750 mg PO TID PRN (Reason: back pain) Qty: 15 0RF Discontinued hydrocodone-acetaminophen 5-325 mg tablet 1 tab PO Q6H PRN (Reason: pain) Qty: 14 0RF No Action venlafaxine 75 mg capsule,extended release 24hr 75 mg PO DAILY glipizide 5 mg tablet 5 mg PO DAILY@0700 metformin 1,000 mg tablet extended release 24hr 1,000 mg PO BID@0700,1900 Hold Instructions: Resume on 07/13/20. May restart this medication on 13 of July allopurinol 100 mg tablet 100 mg PO DAILY PRN (Reason: Stomach Upset) nitroglycerin 0.4 mg tablet, sublingual 0.4 mg SUBLINGUAL Q5M PRN (Reason: chest pain) 30 Days Qty: 30 3RF Rx Instructions: until response; do not exceed 3 doses per episode (DME) Fast Form Migdalia Rich See Rx Instructions .Route .MEDSUPPLY Qty: 1 0RF Rx Instructions: As directed metoprolol tartrate 25 mg tablet 25 mg PO BID Qty: 180 4RF Plavix 75 mg tablet 75 mg PO DAILY@0700 Qty: 90 3RF aspirin 81 mg tablet,chewable 81 mg PO DAILY@0700 Qty: 90 3RF levothyroxine 150 mcg capsule 150 mcg PO DAILY lisinopril 40 mg tablet 40 mg PO DAILY Keppra 500 mg tablet 750 mg PO BID ondansetron 4 mg tablet,disintegrating 4 mg PO Q6H PRN (Reason: nausea and vomiting) Qty: 14 0RF acetaminophen [Tylenol Arthritis Pain] 650 mg tablet extended release 650 mg PO Q8H PRN (Reason: pain) Qty: 30 0RF Discharge Orders: Discharge ED (Routine); Ordered 02/27/23 Ordered By: Alexis Brian Referrals: Dorita Flaherty FNP [Primary Care Provider] - Discharge Diet: Usual diet Discharge Activity: Increase activity as tolerated Patient Instructions: Opioid Safety, Pain Management Activity Restrictions/Additional Instructions: Continue with routine care. Follow-up with primary care for further instructions. Return to emergency department for new concerns. The emergency department does not do refills on narcotic medications. Prescriptions prescribed from the emergency room are for acute purposes only. Coding Level of Care Code ED Propeller Driven Airplane Mechanic for Marva Bunn
[2023-02-27] MEDS: morphine 4 mg/mL SDV 1 mL IM (22:17)
[2023-02-27 22:37] VITALS: BP 176/109; PULSE 89; RESP 20; TEMP 36.6; O2SAT 97
== END 2023-02-27 22:38 | disposition home or self-care (01) ==
PROVIDERS: Emergency Provider Nurse Practitioner Family; PCP Nurse Practitioner Family
DX: M54.50 Low back pain, unspecified (principal); Z79.02 Long term (current) use of antithrombotics/antiplatelets; Z79.82 Long term (current) use of aspirin; Z79.84 Long term (current) use of oral hypoglycemic drugs; F17.210 Nicotine dependence, cigarettes, uncomplicated; I10 Essential (primary) hypertension; I25.10 Atherosclerotic heart disease of native coronary artery without angina pectoris; E78.5 Hyperlipidemia, unspecified; E11.9 Type 2 diabetes mellitus without complications
CPT/HCPCS: 96372; 99284; J2270

== ENCOUNTER 2023-03-05 19:05 | Emergency (ER) | payer MEDICAID, SELFPAY ==
[2023-03-05 19:10] VITALS: BP 175/98; PULSE 95; RESP 18; TEMP 36.9; O2SAT 97; BMI 32.0
--- NOTE | 2023-03-05 19:54 | XRR_ITS ---
PROCEDURE INFORMATION: Exam: XR Right Knee Exam date and time: 03/05/2023 8:16 PM Age: 58 years old Clinical indication: Pain; Knee; Right; Additional info: Pain, previous injury, recently stepped wrong and now has sharp TECHNIQUE: Imaging protocol: Radiologic exam of the right knee. Views: 3 views. COMPARISON: No relevant prior studies available. FINDINGS: Bones/joints: Normal. Soft tissues: Normal. XR/XR knee RT 3V* [id number] IMPRESSION: No acute findings.
--- NOTE | 2023-03-05 20:34 | W.ED.EXTPRO ---
HPI - Extremity Problem General: Chief complaint: Extremity Injury, Lower Stated complaint: Rt Knee Pain Time Seen by Provider: 03/05/23 19:34 Source: patient Mode of arrival: ambulatory (With cane) Limitations: no limitations History of Present Illness: Patient presents emergency department today for evaluation treatment of right knee pain. Patient reports that 20 years ago he had an initial injury on some stairs with his knee. He states that ever since then every once in a while it will flareup on him and cause him pain. He does not recall any specific injury prior to onset of pain this time. He reports very generalized anterior knee pain. He is using a cane which she states he only uses when his knee pain flares up. Patient thinks that the joint looks swollen. Review of Systems General: Reports: 10 or more systems reviewed and unremarkable except in HPI and below PFSH ED PFSH: Medical History Atypical chest pain Benign essential hypertension with target blood pressure below 140/90 Chronic low back pain Coronary artery disease Dyslipidemia Epilepsy Glucose intolerance Hypothyroidism Obesity Smoker Type 2 diabetes mellitus Surgical History H/O heart artery stent 07/11/2020-Cardiac stent placement mid LAD H/O umbilical hernia repair History of appendectomy Family History Father , at age 74 Family history of premature coronary artery disease Had a myocardial infarction in his 40s. Diabetes CAD (coronary artery disease) Chronic kidney disease (CKD) Stroke Brother Family history of premature coronary artery disease CAD (coronary artery disease) Had [place] in the 50s Diabetes Stroke Grandmother CAD (coronary artery disease) Diabetes Grandfather CAD (coronary artery disease) Mother , at age 84 CAD (coronary artery disease) Cancer Diabetes COVID-19 Family/Other Lung disease Denies family history of Clotting disorder Dementia Suicide Anesthesia complication Bleeding disorder Social History Smoking and tobacco/nicotine status: current every day tobacco/nicotine user Alcohol intake: current Alcohol intake frequency: holidays/special occasions only Substance/Drug Use: never Household members: spouse Housing: House Marital status: Current occupational status: disabled Physical Exam Const: COMMON NORMALS: no acute distress, patient oriented x3 and alert HENMT: COMMON NORMALS: normocephalic, atraumatic and hearing grossly normal bilaterally HEAD & SCALP: normocephalic and atraumatic Eye: COMMON NORMALS: Equal, round and reactive pupils present, EOMs intact bilaterally and conjunctivae normal CONJUNCTIVA: Yes conjunctivae normal PUPIL: Yes Equal, round and reactive pupils present Neck/C-Spine: COMMON NORMALS: full ROM and no JVD Lymph: LYMPHATIC: no lymphadenopathy noted Resp: COMMON NORMALS: normal respiratory effort, No retractions and No use of accessory muscles Cardio: COMMON NORMALS: no JVD and regular rate RATE: regular rate Extremity: NARRATIVE EXTREMITY EXAM: Patient is ambulatory and weightbearing with cane assist. Patient demonstrates full flexion extension capabilities of the right knee and is nontender to the popliteal region on palpation. No signs of edema. Joint is not red. No appreciable effusion though there may be a little puffiness just superior to the patella. Patient indicates tenderness on palpation diffusely across the anterior right knee. Neuro: COMMON NORMALS: patient oriented x3 SENSORIUM/ORIENTATION: Yes alert Psych: COMMON NORMALS: mental status grossly normal, Normal thought process present, cooperative and normal affect THOUGHT PROCESS: Normal thought process present Skin: COMMON NORMALS: no rashes or lesions noted and turgor normal GENERAL SKIN EXAM: no rashes or lesions noted and turgor normal Course Vital Signs: Vital signs: Vital Signs Temperature 98.4 F 03/05/23 19:10 Pulse Rate 95 03/05/23 19:10 Respiratory Rate 18 03/05/23 19:10 Blood Pressure 175/98 03/05/23 19:10 Pulse Oximetry 97 03/05/23 19:10 MDM - Extremity (Nontraumatic) Medical Decision Making X-ray shows no signs of any acute bony abnormality. I do not appreciate concerns for gout or septic joint. Patient has preserved range of motion in the joint itself. Given that the patient has had issues with this joint now for 20 years , I will refer him onto orthopedics to discuss. Patient was treated for pain acutely here in the emergency department but, indicated to him that we cannot treat chronic pain with narcotic pain medication through the emergency department. He was given steroids, muscle relaxer, and topical NSAID as he does take an oral blood thinner. Patient was told to watch for sudden swelling, fever, redness of the joint, or inability to flex the knee-for these he needs to be seen and reevaluated before his orthopedic evaluation. Patient verbalized understanding and agreement to treatment plan. Differential Diagnosis Unlikely gout, cellulitis, superficial thrombophlebitis, lower extremity edema or deep vein thrombosis of lower extremity Lab Data Radiology Impressions Knee X-Ray 03/05/23 19:54 IMPRESSION: No acute findings. All radiology interpretation(s) finalized by discharge Discharge Plan Discharge Patient Disposition: Home Clinical Impression: Knee pain, right anterior Condition: Stable Prescriptions: New methylprednisolone 4 mg tablets,dose pack See Rx Instructions PO .COMPLEX Qty: 21 0RF Rx Instructions: orally per package directions Voltaren Arthritis Pain 1 % gel 4 g topical QID Qty: 100 0RF Rx Instructions: apply to single knee, ankle, foot; for foot includes sole/toes/top of foot tizanidine 4 mg capsule 4 mg PO Q8H PRN (Reason: muscle spasticity) Qty: 20 0RF No Action venlafaxine 75 mg capsule,extended release 24hr 75 mg PO DAILY glipizide 5 mg tablet 5 mg PO DAILY@0700 metformin 1,000 mg tablet extended release 24hr 1,000 mg PO BID@0700,1900 Hold Instructions: Resume on 07/13/20. May restart this medication on 13 of July allopurinol 100 mg tablet 100 mg PO DAILY PRN (Reason: Stomach Upset) nitroglycerin 0.4 mg tablet, sublingual 0.4 mg SUBLINGUAL Q5M PRN (Reason: chest pain) 30 Days Qty: 30 3RF Rx Instructions: until response; do not exceed 3 doses per episode (DME) Fast Form Migdalia Villanueva See Rx Instructions .Route .MEDSUPPLY Qty: 1 0RF Rx Instructions: As directed metoprolol tartrate 25 mg tablet 25 mg PO BID Qty: 180 4RF Plavix 75 mg tablet 75 mg PO DAILY@0700 Qty: 90 3RF aspirin 81 mg tablet,chewable 81 mg PO DAILY@0700 Qty: 90 3RF levothyroxine 150 mcg capsule 150 mcg PO DAILY lisinopril 40 mg tablet 40 mg PO DAILY Keppra 500 mg tablet 750 mg PO BID ondansetron 4 mg tablet,disintegrating 4 mg PO Q6H PRN (Reason: nausea and vomiting) Qty: 14 0RF methocarbamol 750 mg tablet 750 mg PO TID PRN (Reason: back pain) Qty: 15 0RF acetaminophen [Tylenol Arthritis Pain] 650 mg tablet extended release 650 mg PO Q8H PRN (Reason: pain) Qty: 30 0RF Discharge Orders: Discharge ED (Routine); Ordered 03/05/23 Ordered By: Tracy Reynolds Referrals: Dorita Flaherty FNP [Primary Care Provider] - Discharge Diet: Usual diet Discharge Activity: Increase activity as tolerated Patient Instructions: Knee Pain (ED) Activity Restrictions/Additional Instructions: X-ray imaging today shows no signs of any acute abnormalities in your knee. Unfortunately, the emergency department is extremely limited on its ability to treat chronic pain. While we are able to address pain acutely here in the department, the emergency room physicians do not provide narcotic pain medication for chronic issues. We have provided you several medications to help with your knee discomfort and I personally placed a referral for follow-up through our orthopedically impaired teacher for a second opinion and reevaluation of your recurrence of right knee pain. We recommend avoiding strenuous activity and prolonged standing/walking for the next several days. Keep your knee up and elevated and apply ice to the anterior knee for 15 to 20 minutes, multiple times throughout the day. Take the prescription medications as prescribed to help with pain and watch for fever, redness of the skin around the knee joint or inability to flex or extend the joint. If this occurs need to be seen and reevaluated sooner than your orthopedic follow-up. Coding Level of Care Code ED Air Conditioning Specialist for Marva Bunn
[2023-03-05] MEDS: HYDROcodone-acetaminophen 5-325 mg Tablet 1 TAB PO (21:10)
[2023-03-05] MEDS: dexamethasone 10 mg/mL INJ IM (21:12)
--- NOTE | 2023-03-06 07:38 | DCPLANNER ---
Referral was sent to Ortho clinic on 03/06/23 at 07:39. Clinic to contact patient.
== END 2023-03-05 21:31 | disposition home or self-care (01) ==
PROVIDERS: Emergency Provider Physician Assistant; PCP Nurse Practitioner Family
DX: M25.561 Pain in right knee (principal); Z79.84 Long term (current) use of oral hypoglycemic drugs; Z79.02 Long term (current) use of antithrombotics/antiplatelets; Z79.82 Long term (current) use of aspirin; Z72.0 Tobacco use; I10 Essential (primary) hypertension; I25.10 Atherosclerotic heart disease of native coronary artery without angina pectoris; E78.5 Hyperlipidemia, unspecified; E11.9 Type 2 diabetes mellitus without complications
CPT/HCPCS: 73562; 96372; 99284; J1100

== ENCOUNTER 2023-03-10 20:03 | Emergency (ER) | payer MEDICAID, SELFPAY ==
[2023-03-10] VITALS (7 sets, daily range): BP systolic 134–173; BP diastolic 94–106; PULSE 65–79; RESP 12–20; O2SAT 96–97; BMI 32.0
--- NOTE | 2023-03-10 20:09 | XRR_ITS ---
PROCEDURE INFORMATION: Exam: XR Chest Exam date and time: 03/10/2023 8:19 PM Age: 58 years old Clinical indication: Pain; Chest pressure; Additional info: Cp TECHNIQUE: Imaging protocol: Radiologic exam of the chest. Views: 1 view. COMPARISON: CR XR chest 1V portable [id number] 11/30/2022 7:33 PM FINDINGS: Lungs: Unremarkable. No consolidation. Pleural spaces: Unremarkable. No pleural effusion. No pneumothorax. Heart/Mediastinum: Unremarkable. No cardiomegaly. Bones/joints: Unremarkable. XR/XR chest 1V portable [id number] IMPRESSION: No acute findings.
--- NOTE | 2023-03-10 20:19 | ECG_ITS ---
[facility] Test Date: 2023-03-10 Pat Name: Alonso Golden Department: Room: Gender: Male Press Secretary: : 1965 Requested By: Kerry Jeter Order Number: [id number] Mariaa MD: Vernon Guillaume M.D. Measurements Intervals [place] Rate: 77 P: 22 MI: 155 QRS: -31 QRSD: 96 T: 66 QT: 409 QTc: 463 Interpretive Statements SINUS RHYTHM LEFT AXIS DEVIATION [QRS AXIS < -30] PATTERN CONSISTENT WITH PULMONARY DISEASE MODERATE VOLTAGE CRITERIA FOR LVH, CONSIDER NORMAL VARIANT [MEETS CRITERIA IN ONE OF: R(aVL), S(V1), R(V5), R(V5/V6)+S(V1)] NONSPECIFIC T-WAVE ABNORMALITY Compared to ECG 02/18/2023 12:50:00 Left-axis deviation now present T-wave abnormality now present Myocardial infarct finding no longer present Electronically Signed On 03-10-2023 23:31:39 CDT by Vernon Guillaume M.D. [id number]
[2023-03-10 20:23] LABS: Basophils # 0.1 10^3/uL (0.0-0.1); Basophils % 1.2 %; Eosinophils # 0.2 10^3/uL (0.0-0.8); Eosinophils % 2.6 %; Hematocrit 46.5 % (37-53); Lymphocytes # 0.7 10^3/uL (0.8-4.8); Mean Corpuscular HGB Conc 34.6 g/dL (30-55); Mean Corpuscular Hemoglobin 29.9 pg (27-33); Mean Corpuscular Volume 86.4 fl (82-101); Mean Platelet Volume 12.4 fL (7.4-10.4); Monocytes # 0.6 10^3/uL (0.2-0.9); Monocytes % 7.5 %; Neutrophils # 6.11 10^3/uL (1.8-7.7); Neutrophils % 76.3 %; Nucleated Red Blood Cells % 0 %; Platelet Count 122 10^3/cmm (157-399); Red Blood Count 5.38 10^6/uL (3.85-5.65); Red Cell Distribution Width 14.9 % (12.1-15.1); White Blood Count 8.01 10^3/uL (3.29-11.43)
--- NOTE | 2023-03-10 20:32 | W.ED.CHESTPA ---
HPI - Chest Pain General: Chief Complaint: Chest Pain Stated Complaint: CP Time Seen by Provider: 03/10/23 20:09 Source: patient and EMS Mode of arrival: EMS Limitations: no limitations History of Present Illness: 58-year-old male who is very well-known to the ER he has been seen here multiple times in the past month he states he started having chest pain 1 to 2 hours ago. He states the pain is currently a 2 out of 10 sharp in nature denies any shortness of breath he denies any worsening improving factors he had no vomiting or diarrhea. Associated symptoms: Deny abdominal pain, dyspnea, fever(s), nausea or vomiting Review of Systems Const: Denies: fever(s) or chills Eyes: Denies: eye discomfort ENMT: Denies: throat pain or dental pain Card: Reports: chest pain Resp: Denies: dyspnea GI: Denies: abdominal pain, nausea, vomiting or diarrhea : Denies: dysuria Musc: Denies: neck pain or back pain Skin/Breast: Denies: rash Neuro: Denies: headache(s) PFSH ED PFSH: Medical History Atypical chest pain Benign essential hypertension with target blood pressure below 140/90 Chronic low back pain Coronary artery disease Dyslipidemia Epilepsy Glucose intolerance Hypothyroidism Obesity Smoker Type 2 diabetes mellitus Surgical History H/O heart artery stent 07/11/2020-Cardiac stent placement mid LAD H/O umbilical hernia repair History of appendectomy Family History Father , at age 74 Family history of premature coronary artery disease Had a myocardial infarction in his 40s. Diabetes CAD (coronary artery disease) Chronic kidney disease (CKD) Stroke Brother Family history of premature coronary artery disease CAD (coronary artery disease) Had CT in the 50s Diabetes Stroke Grandmother CAD (coronary artery disease) Diabetes Grandfather CAD (coronary artery disease) Mother , at age 84 CAD (coronary artery disease) Cancer Diabetes COVID-19 Family/Other Lung disease Denies family history of Clotting disorder Dementia Suicide Anesthesia complication Bleeding disorder Social History Smoking and tobacco/nicotine status: current every day tobacco/nicotine user Alcohol intake: current Alcohol intake frequency: holidays/special occasions only Substance/Drug Use: never Household members: spouse Housing: House Marital status: Current occupational status: disabled Physical Exam Const: COMMON NORMALS: no acute distress, patient oriented x3 and healthy appearing HENMT: COMMON NORMALS: normocephalic and atraumatic HEAD & SCALP: normocephalic and atraumatic Eye: COMMON NORMALS: Equal, round and reactive pupils present and EOMs intact bilaterally PUPIL: Yes Equal, round and reactive pupils present Neck/C-Spine: COMMON NORMALS: full ROM and supple Chest: COMMONS NORMALS: normal inspection of the chest and normal palpation of entire chest wall Resp: COMMON NORMALS: normal respiratory effort, No retractions, No use of accessory muscles and clear to auscultation bilaterally AUSCULTATION: clear to auscultation bilaterally Cardio: COMMON NORMALS: regular rate, regular rhythm and No murmurs present (Cardio) RATE: regular rate RHYTHM: regular rhythm GI: COMMON NORMALS: Normal to inspection, nondistended, normoactive bowel sounds present, Soft to palpation, non-tender and no masses PALPATION: Yes Soft to palpation Extremity: COMMON NORMALS: normal to inspection and full ROM Neuro: COMMON NORMALS: patient oriented x3, moves all extremities and no focal motor deficits Psych: COMMON NORMALS: mental status grossly normal, Normal thought process present and cooperative THOUGHT PROCESS: Normal thought process present Skin: COMMON NORMALS: no rashes or lesions noted and no wounds GENERAL SKIN EXAM: no rashes or lesions noted Course Vital Signs: Vital signs: Vital Signs Pulse Rate 66 03/10/23 22:54 Respiratory Rate 18 03/10/23 22:54 Blood Pressure 157/106 03/10/23 22:54 Pulse Oximetry 96 03/10/23 22:54 Oxygen Delivery Me thod Room Air 03/10/23 22:40 MDM - Chest Pain Medical Decision Making Patient presents for chest pains atypical in nature his troponins here negative he is well-appearing here he is stable for discharge she is to follow-up with PCP and return if worsening he understands agrees to plan Medical Records I reviewed the patient's medical records. Lab Data I reviewed the patient's lab results. 03/10/23 20:05 03/10/23 20:44 Radiology Impressions Chest X-Ray 03/10/23 20:09 IMPRESSION: No acute findings. Laboratory Results WBC 8.01 10^3/uL (3.29-11.43) 03/10/23 20:05 RBC 5.38 10^6/uL (3.85-5.65) 03/10/23 20:05 Hgb 16.10 g/dL (11.27-16.99) 03/10/23 20:05 Hct 46.5 % (37-53) 03/10/23 20:05 MCV 86.4 fl (82-101) 03/10/23 20:05 MCH 29.9 pg (27-33) 03/10/23 20:05 MCHC 34.6 g/dL (30-55) 03/10/23 20:05 RDW 14.9 % (12.1-15.1) 03/10/23 20:05 Plt Count 122 10^3/cmm (157-399) L 03/10/23 20:05 MPV 12.4 fL (7.4-10.4) H 03/10/23 20:05 Neut % (Auto) 76.3 % 03/10/23 20:05 Lymph % (Auto) 9.0 % 03/10/23 20:05 [place] % (Auto) 7.5 % 03/10/23 20:05 Eos % (Auto) 2.6 % 03/10/23 20:05 Baso % (Auto) 1.2 % 03/10/23 20:05 Neut # (Auto) 6.11 10^3/uL (1.8-7.7) 03/10/23 20:05 Lymph # (Auto) 0.7 10^3/uL (0.8-4.8) L 03/10/23 20:05 [place] # (Auto) 0.6 10^3/uL (0.2-0.9) 03/10/23 20:05 Eos # (Auto) 0.2 10^3/uL (0.0-0.8) 03/10/23 20:05 Baso # (Auto) 0.1 10^3/uL (0.0-0.1) 03/10/23 20:05 Nucleated RBC % (auto) 0 % 03/10/23 20:05 Nucleated RBCs # 0.0 /100WBC 03/10/23 20:05 Sodium 133 mmol/L (136-145) L 03/10/23 20:44 Potassium 3.4 mmol/L (3.5-5.1) L 03/10/23 20:44 Chloride 96 mmol/L (98-107) L 03/10/23 20:44 Carbon Dioxide 27 mmol/L (22-29) 03/10/23 20:44 Anion Gap 13.4 (5-19) 03/10/23 20:44 BUN 12 mg/dL (6-20) 03/10/23 20:44 Creatinine 1.1 mg/dL (0.7-1.2) 03/10/23 20:44 GFR Calculation 69.2 mL/min (90-130) L 03/10/23 20:44 Glucose 299 mg/dL (65-115) H 03/10/23 20:44 Calculated Osmolality 287 mOsm/kg (285-295) 03/10/23 20:44 Calcium 9.3 mg/dL (8.5-10.5) 03/10/23 20:44 Total Bilirubin 1.8 mg/dL (0.15-1.2) H 03/10/23 20:44 AST 106 U/L (0-40) H 03/10/23 20:44 ALT 50 U/L (0-41) H 03/10/23 20:44 Alkaline Phosphatase 136 U/L (40-130) H 03/10/23 20:44 Troponin T Baseline 24 ng/L (0-15) H 03/10/23 20:44 Troponin T 120 Minute 23.93 ng/L (0-15) H 03/10/23 22:29 Delta Troponin T -0.07 ABS# (0-10) L 03/10/23 22:29 Total Protein 8.0 g/dL (6.6-8.7) 03/10/23 20:44 Albumin 4.0 g/dL (3.5-5.2) 03/10/23 20:44 Globulin 4.0 g/dL (1.3-4.6) 03/10/23 20:44 Lipase 87 U/L (13-60) H 03/10/23 20:44 All radiology interpretation(s) finalized by discharge EKG Data EKG 1: I personally reviewed and interpreted this EKG as follows: EKG interpretation date: 03/10/23 EKG interpretation time: 20:19 Interpretation: nsr hr [address] or t wave abnormalities qrs 96 qtc 440 Discharge Plan Discharge Patient Disposition: Home Clinical Impression: Chest pain Condition: Stable Prescriptions: No Action venlafaxine 75 mg capsule,extended release 24hr 75 mg PO DAILY glipizide 5 mg tablet 5 mg PO DAILY@0700 metformin 1,000 mg tablet extended release 24hr 1,000 mg PO BID@0700,1900 Hold Instructions: Resume on 07/13/20. May restart this medication on 13 of July allopurinol 100 mg tablet 100 mg PO DAILY PRN (Reason: Stomach Upset) nitroglycerin 0.4 mg tablet, sublingual 0.4 mg SUBLINGUAL Q5M PRN (Reason: chest pain) 30 Days Qty: 30 3RF Rx Instructions: until response; do not exceed 3 doses per episode (DME) Fast Form Ulnar Gutter See Rx Instructions .Route .MEDSUPPLY Qty: 1 0RF Rx Instructions: As directed metoprolol tartrate 25 mg tablet 25 mg PO BID Qty: 180 4RF Plavix 75 mg tablet 75 mg PO DAILY@0700 Qty: 90 3RF aspirin 81 mg tablet,chewable 81 mg PO DAILY@0700 Qty: 90 3RF levothyroxine 150 mcg capsule 150 mcg PO DAILY lisinopril 40 mg tablet 40 mg PO DAILY Keppra 500 mg tablet 750 mg PO BID ondansetron 4 mg tablet,disintegrating 4 mg PO Q6H PRN (Reason: nausea and vomiting) Qty: 14 0RF methocarbamol 750 mg tablet 750 mg PO TID PRN (Reason: back pain) Qty: 15 0RF acetaminophen [Tylenol Arthritis Pain] 650 mg tablet extended release 650 mg PO Q8H PRN (Reason: pain) Qty: 30 0RF methylprednisolone 4 mg tablets,dose pack See Rx Instructions PO .COMPLEX Qty: 21 0RF Rx Instructions: orally per package directions Voltaren Arthritis Pain 1 % gel 4 g topical QID Qty: 100 0RF Rx Instructions: apply to single knee, ankle, foot; for foot includes sole/toes/top of foot tizanidine 4 mg capsule 4 mg PO Q8H PRN (Reason: muscle spasticity) Qty: 20 0RF Discharge Orders: Discharge ED (Routine); Ordered 03/10/23 Ordered By: Kerry Jeter Referrals: Dorita Flaherty FNP [Primary Care Provider] - 1-3 days Discharge Diet: Advance as tolerated Discharge Activity: Resume usual activity Patient Instructions: Chest Pain (ED) Coding Level of Care Code ED Contract Negotiation Specialist for Marva Bunn
[2023-03-10] MEDS: ibuprofen 200 mg Tablet PO (20:44)
[2023-03-10 21:08] LABS: Alanine Aminotransferase 50 U/L (0-41); Alkaline Phosphatase 136 U/L (40-130); Anion Gap 13.4 (5-19); Aspartate Amino Transferase 106 U/L (0-40); Blood Urea Nitrogen 12 mg/dL (6-20); Calcium 9.3 mg/dL (8.5-10.5); Carbon Dioxide 27 mmol/L (22-29); Chloride 96 mmol/L (98-107); Glomerular Filtration Rate 69.2 mL/min (90-130); Glucose 299 mg/dL (65-115); Lipase 87 U/L (13-60); Osmolality Calculated 287 mOsm/kg (285-295); Potassium 3.4 mmol/L (3.5-5.1); Sodium 133 mmol/L (136-145); Total Bilirubin 1.8 mg/dL (0.15-1.2)
[2023-03-10 21:09] LABS: Troponin(5th) Baseline 24 ng/L (0-15)
[2023-03-10 22:51] LABS: Troponin 5 2HR 23.93 ng/L (0-15)
[2023-03-10 22:52] LABS: Troponin 5 2HR Delta -0.07 ABS# (0-10)
== END 2023-03-10 23:00 | disposition home or self-care (01) ==
PROVIDERS: Emergency Provider Emergency Medicine; PCP Nurse Practitioner Family
DX: R07.9 Chest pain, unspecified (principal); Z79.02 Long term (current) use of antithrombotics/antiplatelets; Z79.82 Long term (current) use of aspirin; Z79.84 Long term (current) use of oral hypoglycemic drugs; Z72.0 Tobacco use; I10 Essential (primary) hypertension; I25.10 Atherosclerotic heart disease of native coronary artery without angina pectoris; E78.5 Hyperlipidemia, unspecified; E11.9 Type 2 diabetes mellitus without complications
CPT/HCPCS: 36415; 71045; 80053; 83690; 84484; 85025; 93005; 99285

== ENCOUNTER 2023-03-14 06:51 | Emergency (ER) | payer MEDICAID, SELFPAY ==
[2023-03-14 06:55] VITALS: BP 204/134; RESP 18; TEMP 36.4; O2SAT 99; BMI 32.0
--- NOTE | 2023-03-14 06:58 | ED_ITS ---
HPI - Seizure General: Chief Complaint: General Medical Stated Complaint: Possible Seizure Time Seen by Provider: 03/14/23 06:57 Source: patient Mode of arrival: ambulatory History of Present Illness: HPI Narrative: 58-year-old male presents emergency room with complaints of or of his seizure. He is not actually had a seizure to feel like he is about to have 1. He has been out of his blood Bactrim for several days because he could not get it refilled he has refills available but just did not get to the pharmacy to get them filled. He denies any other symptoms MD complaint: feels seizure coming on Seizure History: Yes Associated symptoms: Deny chest pain, chills, confusion, cough, diaphoresis, fever(s), anorexia, malaise, rash, short of breath, syncope or weakness Treatments prior to arrival: none Review of Systems Const: Denies: fever(s), chills, malaise or diaphoresis Card: Denies: chest pain or syncope Resp: Denies: dyspnea GI: Denies: abdominal pain : Denies: dysuria, urinary frequency or urinary urgency Musc: Denies: neck pain or back pain Skin/Breast: Denies: rash Neuro: Denies: confusion PFSH ED PFSH: Medical History Atypical chest pain Benign essential hypertension with target blood pressure below 140/90 Chronic low back pain Coronary artery disease Dyslipidemia Epilepsy Glucose intolerance Hypothyroidism Obesity Smoker Type 2 diabetes mellitus Surgical History H/O heart artery stent 07/11/2020-Cardiac stent placement mid LAD H/O umbilical hernia repair History of appendectomy Family History Father , at age 74 Family history of premature coronary artery disease Had a myocardial infarction in his 40s. Diabetes CAD (coronary artery disease) Chronic kidney disease (CKD) Stroke Brother Family history of premature coronary artery disease CAD (coronary artery disease) Had OR in the 50s Diabetes Stroke Grandmother CAD (coronary artery disease) Diabetes Grandfather CAD (coronary artery disease) Mother , at age 84 CAD (coronary artery disease) Cancer Diabetes COVID-19 Family/Other Lung disease Denies family history of Clotting disorder Dementia Suicide Anesthesia complication Bleeding disorder Social History Smoking and tobacco/nicotine status: current every day tobacco/nicotine user Alcohol intake: current Alcohol intake frequency: holidays/special occasions only Substance/Drug Use: never Household members: spouse Housing: House Marital status: Current occupational status: disabled Physical Exam Const: COMMON NORMALS: no acute distress GENERAL APPEARANCE: cooperative and comfortable ORIENTATION/CONSCIOUSNESS: Yes awake, Yes oriented to person, Yes oriented to place and Yes oriented to time HENMT: COMMON NORMALS: normocephalic, atraumatic and hearing grossly normal bilaterally HEAD & SCALP: normocephalic and atraumatic Resp: COMMON NORMALS: normal respiratory effort, No retractions, No use of accessory muscles and clear to auscultation bilaterally AUSCULTATION: clear to auscultation bilaterally Cardio: COMMON NORMALS: regular rate, regular rhythm and No murmurs present (Cardio) RATE: regular rate RHYTHM: regular rhythm GI: COMMON NORMALS: Soft to palpation and No hepatosplenomegaly present AUSCULTATION: Yes normoactive bowel sounds PALPATION: Yes Soft to palpation, No Tenderness to palpation present (GI), No Guarding due to palpation present (GI) and Yes No hepatosplenomegaly present Extremity: COMMON NORMALS: normal to inspection, capillary refill normal, no clubbing, cyanosis or edema, no calf tenderness and no pedal edema Neuro: SENSORIUM/ORIENTATION: Yes oriented to person, Yes oriented to place and Yes oriented to time Skin: COMMON NORMALS: no rashes or lesions noted GENERAL SKIN EXAM: no rashes or lesions noted Course Vital Signs: Vital signs: Vital Signs Temperature 97.6 F 03/14/23 06:55 Respiratory Rate 18 03/14/23 06:55 Blood Pressure 204/134 03/14/23 06:55 Pulse Oximetry 99 03/14/23 06:55 Oxygen Delivery Me thod Room Air 03/14/23 06:55 MDM - Seizure MDM Narrative Medical decision making narrative: Patient has not actually had a seizure at this point. No labs necessary and will give him a gram of Keppra as a loading dose discharge him have him start his oral Keppra tonight 750 mg and should continue as previously prescribed 7 or 50 mg twice daily. Follow-up with his primary care doctor and neurologist. Discussed with him the importance of maintaining regular intake of his medications to prevent seizures. No radiology studies performed this visit Discharge Plan Discharge Patient Disposition: Home Clinical Impression: Epilepsy Condition: Stable Prescriptions: No Action venlafaxine 75 mg capsule,extended release 24hr 75 mg PO DAILY glipizide 5 mg tablet 5 mg PO DAILY@0700 metformin 1,000 mg tablet extended release 24hr 1,000 mg PO BID@0700,1900 Hold Instructions: Resume on 07/13/20. May restart this medication on 13 of July allopurinol 100 mg tablet 100 mg PO DAILY PRN (Reason: Stomach Upset) nitroglycerin 0.4 mg tablet, sublingual 0.4 mg SUBLINGUAL Q5M PRN (Reason: chest pain) 30 Days Qty: 30 3RF Rx Instructions: until response; do not exceed 3 doses per episode (DME) Fast Form Migdalia Villanueva See Rx Instructions .Route .MEDSUPPLY Qty: 1 0RF Rx Instructions: As directed metoprolol tartrate 25 mg tablet 25 mg PO BID Qty: 180 4RF Plavix 75 mg tablet 75 mg PO DAILY@0700 Qty: 90 3RF aspirin 81 mg tablet,chewable 81 mg PO DAILY@0700 Qty: 90 3RF levothyroxine 150 mcg capsule 150 mcg PO DAILY lisinopril 40 mg tablet 40 mg PO DAILY Keppra 500 mg tablet 750 mg PO BID ondansetron 4 mg tablet,disintegrating 4 mg PO Q6H PRN (Reason: nausea and vomiting) Qty: 14 0RF methocarbamol 750 mg tablet 750 mg PO TID PRN (Reason: back pain) Qty: 15 0RF acetaminophen [Tylenol Arthritis Pain] 650 mg tablet extended release 650 mg PO Q8H PRN (Reason: pain) Qty: 30 0RF methylprednisolone 4 mg tablets,dose pack See Rx Instructions PO .COMPLEX Qty: 21 0RF Rx Instructions: orally per package directions Voltaren Arthritis Pain 1 % gel 4 g topical QID Qty: 100 0RF Rx Instructions: apply to single knee, ankle, foot; for foot includes sole/toes/top of foot tizanidine 4 mg capsule 4 mg PO Q8H PRN (Reason: muscle spasticity) Qty: 20 0RF Discharge Orders: Discharge ED (Routine); Ordered 03/14/23 Ordered By: Mendel Bush Referrals: Dorita Flaherty FNP [Primary Care Provider] - Discharge Diet: Usual diet Discharge Activity: Resume usual activity Patient Instructions: Opioid Safety, Pain Management Activity Restrictions/Additional Instructions: Thank you for choosing [facility] for your healthcare needs today. Please realize this is an emergency room and that we are providing you with a medical screening exam and this may not be complete and all inclusive of all the testing and or work up that you may need to determine your ailment or severity of your illness. It is very important that you follow up as instructed or that you return to the Emergency Department should you have concerns or if your condition changes or worsens in any way. You are given 1 g of levetiracetam IV (your seizure medication) as a loading dose. Restart your levetiracetam this evening 750 mg tablets 1 twice daily. Coding Level of Care Code ED Box Stapler for Marva Bunn
[2023-03-14 07:04] VITALS: BP 195/84; PULSE 98; RESP 100; O2SAT 100
[2023-03-14] MEDS: levETIRAcetam 1,000 MG/100 ML PREMIX 400 MG IV (07:34)
== END 2023-03-14 08:48 | disposition home or self-care (01) ==
PROVIDERS: Emergency Provider Family Medicine; PCP Nurse Practitioner Family
DX: G40.909 Epilepsy, unspecified, not intractable, without status epilepticus (principal); Z79.84 Long term (current) use of oral hypoglycemic drugs; Z79.02 Long term (current) use of antithrombotics/antiplatelets; Z79.82 Long term (current) use of aspirin; Z72.0 Tobacco use; I10 Essential (primary) hypertension; I25.10 Atherosclerotic heart disease of native coronary artery without angina pectoris; E78.5 Hyperlipidemia, unspecified; E11.9 Type 2 diabetes mellitus without complications
CPT/HCPCS: 96374; 99284; J1953

== ENCOUNTER 2023-03-20 02:49 | Emergency (ER) | payer MEDICAID, SELFPAY ==
[2023-03-20 02:51] VITALS: BP 124/82; PULSE 73; RESP 16; TEMP 36.6; O2SAT 97; BMI 32.0
--- NOTE | 2023-03-20 02:56 | W.ED.EXTPRO ---
HPI - Extremity Problem General: Chief complaint: Extremity Problem,Nontraumatic Stated complaint: knee pain Time Seen by Provider: 03/20/23 02:53 History of Present Illness: Patient presents to the ER with complaints of chronic right knee pain that is flared up with no new trauma. Patient states the [id number] Tylenol and the diclofenac gel just are not doing the trick now. Patient comes in for pain control. Review of Systems General: Reports: 10 or more systems reviewed and unremarkable except in HPI and below PFSH ED PFSH: Medical History Atypical chest pain Benign essential hypertension with target blood pressure below 140/90 Chronic low back pain Coronary artery disease Dyslipidemia Epilepsy Glucose intolerance Hypothyroidism Obesity Smoker Type 2 diabetes mellitus Surgical History H/O heart artery stent 07/11/2020-Cardiac stent placement mid LAD H/O umbilical hernia repair History of appendectomy Family History Father , at age 74 Family history of premature coronary artery disease Had a myocardial infarction in his 40s. Diabetes CAD (coronary artery disease) Chronic kidney disease (CKD) Stroke Brother Family history of premature coronary artery disease CAD (coronary artery disease) Had [place] in the 50s Diabetes Stroke Grandmother CAD (coronary artery disease) Diabetes Grandfather CAD (coronary artery disease) Mother , at age 84 CAD (coronary artery disease) Cancer Diabetes COVID-19 Family/Other Lung disease Denies family history of Clotting disorder Dementia Suicide Anesthesia complication Bleeding disorder Social History Smoking and tobacco/nicotine status: current every day tobacco/nicotine user Alcohol intake: current Alcohol intake frequency: holidays/special occasions only Substance/Drug Use: never Household members: spouse Housing: House Marital status: Current occupational status: disabled Physical Exam Const: COMMON NORMALS: no acute distress, average body habitus, patient oriented x3, no limitations, healthy appearing, alert and well nourished HENMT: COMMON NORMALS: normocephalic, atraumatic, hearing grossly normal bilaterally, external ears normal, Normal external nose present, moist oral mucous membranes and oropharynx normal HEAD & SCALP: normocephalic and atraumatic NOSE: Normal external nose present EXTERNAL EAR: Yes external ears normal Neck/C-Spine: COMMON NORMALS: no JVD Chest: COMMONS NORMALS: normal inspection of the chest and normal palpation of entire chest wall Resp: COMMON NORMALS: normal respiratory effort, No retractions, No use of accessory muscles and clear to auscultation bilaterally AUSCULTATION: clear to auscultation bilaterally Cardio: COMMON NORMALS: no JVD, regular rate, regular rhythm, S1 normal heart sound present, S2 normal heart sound present, No gallops present (Cardio), No clicks present (Cardio), No murmurs present (Cardio) and No rub (Cardio) RATE: regular rate RHYTHM: regular rhythm HEART SOUNDS: S1 normal heart sound present and S2 normal heart sound present GI: COMMON NORMALS: Normal to inspection, nondistended, normoactive bowel sounds present, Soft to palpation, non-tender, No hepatosplenomegaly present and no masses PALPATION: Yes Soft to palpation and Yes No hepatosplenomegaly present Neuro: COMMON NORMALS: patient oriented x3 SENSORIUM/ORIENTATION: Yes alert Course Vital Signs: Vital signs: Vital Signs Temperature 97.9 F 03/20/23 02:51 Pulse Rate 73 03/20/23 02:51 Respiratory Rate 16 03/20/23 02:51 Blood Pressure 124/82 03/20/23 02:51 Pulse Oximetry 97 03/20/23 02:51 Oxygen Delivery Me thod Room Air 03/20/23 02:51 MDM - Extremity (Nontraumatic) Medical Decision Making Chart was reviewed patient has been worked up for this knee pain multiple times in the past. Patient's family members tell us not to give him any narcotics as they are the guardian of him. Patient be given a shot of Toradol and discharged to follow back up with his primary care physician. Differential Diagnosis Unlikely herpes zoster, gout, cellulitis, superficial thrombophlebitis, deep venous thrombosis of upper extremity, lower extremity edema or deep vein thrombosis of lower extremity Medical Records I reviewed the patient's medical records. Lab Data I reviewed the patient's lab results. No radiology studies performed this visit Discharge Plan Discharge Patient Disposition: Home Clinical Impression: Arthralgia of knee, right Condition: Stable Prescriptions: No Action venlafaxine 75 mg capsule,extended release 24hr 75 mg PO DAILY glipizide 5 mg tablet 5 mg PO DAILY@0700 metformin 1,000 mg tablet extended release 24hr 1,000 mg PO BID@0700,1900 Hold Instructions: Resume on 07/13/20. May restart this medication on 13 of July allopurinol 100 mg tablet 100 mg PO DAILY PRN (Reason: Stomach Upset) nitroglycerin 0.4 mg tablet, sublingual 0.4 mg SUBLINGUAL Q5M PRN (Reason: chest pain) 30 Days Qty: 30 3RF Rx Instructions: until response; do not exceed 3 doses per episode (DME) Fast Form Migdalia Villanueva See Rx Instructions .Route .MEDSUPPLY Qty: 1 0RF Rx Instructions: As directed metoprolol tartrate 25 mg tablet 25 mg PO BID Qty: 180 4RF Plavix 75 mg tablet 75 mg PO DAILY@0700 Qty: 90 3RF aspirin 81 mg tablet,chewable 81 mg PO DAILY@0700 Qty: 90 3RF levothyroxine 150 mcg capsule 150 mcg PO DAILY levetiracetam 750 mg tablet See Rx Instructions .ROUTE .COMPLEX Qty: 180 3RF Dose Instruction: TAKE ONE TABLET BY MOUTH TWICE A DAY Rx Instructions: TAKE ONE TABLET BY MOUTH TWICE A DAY lisinopril 40 mg tablet 40 mg PO DAILY ondansetron 4 mg tablet,disintegrating 4 mg PO Q6H PRN (Reason: nausea and vomiting) Qty: 14 0RF methocarbamol 750 mg tablet 750 mg PO TID PRN (Reason: back pain) Qty: 15 0RF acetaminophen [Tylenol Arthritis Pain] 650 mg tablet extended release 650 mg PO Q8H PRN (Reason: pain) Qty: 30 0RF methylprednisolone 4 mg tablets,dose pack See Rx Instructions PO .COMPLEX Qty: 21 0RF Rx Instructions: orally per package directions Voltaren Arthritis Pain 1 % gel 4 g topical QID Qty: 100 0RF Rx Instructions: apply to single knee, ankle, foot; for foot includes sole/toes/top of foot tizanidine 4 mg capsule 4 mg PO Q8H PRN (Reason: muscle spasticity) Qty: 20 0RF Discharge Orders: Discharge ED (Routine); Ordered 03/20/23 Ordered By: Sedrick Ramsey Referrals: Dorita Flaherty FNP [Primary Care Provider] - 4-7 days Patient Instructions: Knee Pain (ED) Activity Restrictions/Additional Instructions: please continue current regimen for pain control. Please follow-up with your family practice physician on an as-needed basis for further evaluation and treatment of your chronic pain. Coding Level of Care Code ED Eligibility Services Representative for Marva Bunn
[2023-03-20] MEDS: ketorolac 60 mg/2 mL INJ IM (03:08)
[2023-03-20 03:23] VITALS: BP 124/82; PULSE 73; RESP 16; TEMP 36.6; O2SAT 97
== END 2023-03-20 03:23 | disposition home or self-care (01) ==
PROVIDERS: Emergency Provider Emergency Medicine; PCP Nurse Practitioner Family
DX: M25.561 Pain in right knee (principal); Z79.84 Long term (current) use of oral hypoglycemic drugs; Z79.02 Long term (current) use of antithrombotics/antiplatelets; Z79.82 Long term (current) use of aspirin; Z72.0 Tobacco use; I10 Essential (primary) hypertension; I25.10 Atherosclerotic heart disease of native coronary artery without angina pectoris; E78.5 Hyperlipidemia, unspecified; E11.9 Type 2 diabetes mellitus without complications
CPT/HCPCS: 96372; 99284; J1885

== ENCOUNTER → 2023-04-11 08:34 | Outpatient (BNVA) | payer MEDICAID, SELFPAY | PROVIDERS: PCP Nurse Practitioner Family; Visit Provider Student in an Organized Health Care Education/Training Program | DX: M23.306 Other meniscus derangements, unspecified meniscus, right knee | CPT/HCPCS: 99203 ==

== ENCOUNTER 2023-04-14 12:53 | Emergency (ER) | payer MEDICAID, SELFPAY ==
[2023-04-14 12:55] VITALS: BP 131/84; PULSE 87; RESP 18; TEMP 36.4; O2SAT 98; BMI 32.3
--- NOTE | 2023-04-14 13:29 | ED_ITS ---
HPI - Back Pain/Injury 2 General: Chief Complaint: Back Pain/Injury Stated Complaint: back pain Time Seen by Provider: 04/14/23 13:14 Source: patient Mode of arrival: ambulatory Limitations: no limitations History of Present Illness: Patient is a 58-year-old male who presents to ED today with a complaint of lower back pain. He states back pain started yesterday in the morning sometime after he woke from sleep. Denies injury or trauma. He states he has a longstanding history of back pain. Patient states pain is located to the right lower back without radiation into his buttocks or lower extremity. He is not having any flank pain. No urinary symptoms. MD elicited complaint: back pain Pertinent past history: prior back pain Onset (ago): day(s) Timing: constant Severity: severe Similar Symptoms Previously: Yes Location: lumbar spine and right lower back Radiation: none Exacerbating factors: movement, sitting upright, walking and lifting Relieving factors: none Associated symptoms: Reports difficulty walking; Deny abdominal pain, chills, dysuria, fatigue, fever(s) or urinary urgency Treatments prior to arrival: NSAIDS, acetaminophen and other (topical icy hot, voltaren gel) Work related injury: No Review of Systems 2 Const: Denies: fever(s), chills, body aches, fatigue or malaise Card: Denies: chest pain Resp: Denies: dyspnea GI: Denies: abdominal pain : Denies: flank pain, difficulty urinating, dysuria, urinary frequency, urinary urgency or urinary hesitancy Musc: Reports: back pain; Denies: neck pain, extremity pain, extremity swelling, joint pain or joint swelling Skin/Breast: Denies: rash Neuro: Reports: difficulty walking; Denies: headache(s), numbness in extremities, weakness in extremities or sensory changes PFSH ED 2 PFSH: Medical History Coronary artery disease Chronic low back pain Dyslipidemia Benign essential hypertension with target blood pressure below 140/90 Type 2 diabetes mellitus Atypical chest pain Epilepsy Obesity Glucose intolerance Smoker Hypothyroidism Surgical History H/O heart artery stent 07/11/2020-Cardiac stent placement mid LAD H/O umbilical hernia repair History of appendectomy Family History Father , at age 74 Family history of premature coronary artery disease Had a myocardial infarction in his 40s. Diabetes CAD (coronary artery disease) Chronic kidney disease (CKD) Stroke Brother Family history of premature coronary artery disease CAD (coronary artery disease) Had [place] in the 50s Diabetes Stroke Grandmother CAD (coronary artery disease) Diabetes Grandfather CAD (coronary artery disease) Mother , at age 84 CAD (coronary artery disease) Cancer Diabetes COVID-19 Family/Other Lung disease Denies family history of Clotting disorder Dementia Suicide Anesthesia complication Bleeding disorder Social History Smoking and tobacco/nicotine status: current every day tobacco/nicotine user Alcohol intake: current Alcohol intake frequency: holidays/special occasions only Substance/Drug Use: never Household members: spouse Housing: House Marital status: Current occupational status: disabled Physical Exam 2 Const: COMMON NORMALS: no acute distress, patient oriented x3, no limitations, alert and well nourished GENERAL APPEARANCE: cooperative Resp: COMMON NORMALS: normal respiratory effort Cardio: COMMON NORMALS: regular rate and regular rhythm RATE: regular rate RHYTHM: regular rhythm GI: COMMON NORMALS: Normal to inspection, nondistended, normoactive bowel sounds present, Soft to palpation, non-tender and no masses PALPATION: Yes Soft to palpation : COMMON NORMALS: Yes no CVA tenderness BLADDER/KIDNEY EXAM: Yes no CVA tenderness Back/Pelvis: COMMON NORMALS: no CVA tenderness, thoracic and lumbar spine normal to inspection, no thoracic nor lumbar tenderness and straight leg raise negative bilaterally THORACIC SPINE/UPPER BACK: No thoracic spinal tenderness, No paraspinal muscle tenderness and No paraspinal muscle spasm L UMBAR SPINE/LOWER BACK: No lumbar spinal tenderness, Yes paraspinal muscle tenderness and No paraspinal muscle spasm PELVIS: Yes buttocks normal and Yes sciatic notch tenderness SACROILIAC JOINTS: Yes SI joint(s) abnormal SI joint details: tender to palpation (R) SACRUM: no tenderness COCCYX: no tenderness BACK IMAGE (MALE): 1. TTP Extremity: COMMON NORMALS: normal to inspection, full ROM, capillary refill normal, no joint enlargement, no clubbing, cyanosis or edema, no calf tenderness and no pedal edema GENERAL: Yes normal exam except as noted Neuro: COMMON NORMALS: patient oriented x3, moves all extremities, no focal motor deficits, no sensory deficits noted and gait normal S ENSORIUM/ORIENTATION: Yes alert Skin: COMMON NORMALS: no rashes or lesions noted GENERAL SKIN EXAM: no rashes or lesions noted Course 2 Vital Signs: Vital signs: Vital Signs Temperature 97.6 F 04/14/23 12:55 Pulse Rate 87 04/14/23 12:55 Respiratory Rate 18 04/14/23 12:55 Blood Pressure 131/84 04/14/23 12:55 Pulse Oximetry 98 04/14/23 12:55 Oxygen Delivery Me thod Room Air 04/14/23 12:55 MDM - Back Pain/Injury Medical Decision Making Patient feeling better after meds given here. No red flags on patient's history or physical exam. No injury or trauma. Emergent imaging is not required at this time. Recommend follow-up with primary care provider. Return to ED precautions given. No radiology studies performed this visit Discharge Plan Discharge Patient Disposition: Home Clinical Impression: Low back pain Qualifiers: Chronicity: acute Back pain laterality: right Sciatica presence: without sciatica Qualified Code(s): M54.50 - Low back pain, unspecified Condition: Stable Prescriptions: New diclofenac sodium 50 mg tablet,delayed release (DR/EC) 50 mg PO Q12H PRN (Reason: pain) Qty: 20 0RF Continued methocarbamol 750 mg tablet 750 mg PO TID PRN (Reason: back pain) Qty: 15 0RF methylprednisolone 4 mg tablets,dose pack See Rx Instructions PO .COMPLEX Qty: 21 0RF Rx Instructions: orally per package directions Discontinued tizanidine 4 mg capsule 4 mg PO Q8H PRN (Reason: muscle spasticity) Qty: 20 0RF No Action venlafaxine 75 mg capsule,extended release 24hr 75 mg PO DAILY glipizide 5 mg tablet 5 mg PO DAILY@0700 metformin 1,000 mg tablet extended release 24hr 1,000 mg PO BID@0700,1900 Hold Instructions: Resume on 07/13/20. May restart this medication on 13 of July allopurinol 100 mg tablet 100 mg PO DAILY PRN (Reason: Stomach Upset) nitroglycerin 0.4 mg tablet, sublingual 0.4 mg SUBLINGUAL Q5M PRN (Reason: chest pain) 30 Days Qty: 30 3RF Rx Instructions: until response; do not exceed 3 doses per episode (DME) Fast Form Ulnar Gutter See Rx Instructions .Route .MEDSUPPLY Qty: 1 0RF Rx Instructions: As directed metoprolol tartrate 25 mg tablet 25 mg PO BID Qty: 180 4RF Plavix 75 mg tablet 75 mg PO DAILY@0700 Qty: 90 3RF aspirin 81 mg tablet,chewable 81 mg PO DAILY@0700 Qty: 90 3RF levothyroxine 150 mcg capsule 150 mcg PO DAILY levetiracetam 750 mg tablet See Rx Instructions .ROUTE .COMPLEX Qty: 180 3RF Dose Instruction: TAKE ONE TABLET BY MOUTH TWICE A DAY Rx Instructions: TAKE ONE TABLET BY MOUTH TWICE A DAY lisinopril 40 mg tablet 40 mg PO DAILY ondansetron 4 mg tablet,disintegrating 4 mg PO Q6H PRN (Reason: nausea and vomiting) Qty: 14 0RF acetaminophen [Tylenol Arthritis Pain] 650 mg tablet extended release 650 mg PO Q8H PRN (Reason: pain) Qty: 30 0RF Voltaren Arthritis Pain 1 % gel 4 g topical QID Qty: 100 0RF Rx Instructions: apply to single knee, ankle, foot; for foot includes sole/toes/top of foot Discharge Orders: Discharge ED (Routine); Ordered 04/14/23 Ordered By: Kristin Rodriguez Referrals: Dorita Flaherty FNP [Primary Care Provider] - Patient Instructions: Opioid Safety, Pain Management Coding Level of Care Code ED Contact Officer for Marva Bunn
[2023-04-14] MEDS: ketorolac 60 mg/2 mL INJ IM (13:57)
[2023-04-14] MEDS: orphenadrine 30 mg/mL Inj 2 mL 60 MG IM (13:59)
[2023-04-14] MEDS: morphine 4 mg/mL SDV 1 mL IM (14:00)
[2023-04-14] MEDS: dexamethasone 10 mg/mL INJ IM (14:01)
== END 2023-04-14 14:28 | disposition home or self-care (01) ==
PROVIDERS: Emergency Provider Physician Assistant; PCP Nurse Practitioner Family
DX: M54.50 Low back pain, unspecified (principal); Z79.02 Long term (current) use of antithrombotics/antiplatelets; Z79.82 Long term (current) use of aspirin; Z79.84 Long term (current) use of oral hypoglycemic drugs; Z72.0 Tobacco use; I25.10 Atherosclerotic heart disease of native coronary artery without angina pectoris; E78.5 Hyperlipidemia, unspecified; I10 Essential (primary) hypertension; E11.9 Type 2 diabetes mellitus without complications
CPT/HCPCS: 96372; 99284; J1100; J1885; J2270; J2360

== ENCOUNTER 2023-04-20 12:02 | Observation (INO) | payer MEDICAID, SELFPAY ==
[2023-04-20] VITALS (21 sets, daily range): BP systolic 97–150; BP diastolic 56–98; PULSE 61–138; RESP 13–24; TEMP 35.9–37; O2SAT 93–98; BMI 32.8
--- NOTE | 2023-04-20 12:04 | XRR_ITS ---
PROCEDURE INFORMATION: Exam: XR Chest Exam date and time: 04/20/2023 12:22 PM Age: 58 years old Clinical indication: Chest wall pain; Patient HX: Chest pain TECHNIQUE: Imaging protocol: Radiologic exam of the chest. Views: 1 view. COMPARISON: CR (CHEST, ) 03/10/2023 8:19 PM FINDINGS: Lungs: Unremarkable. No consolidation. Pleural spaces: Unremarkable. No pleural effusion. No pneumothorax. Heart/Mediastinum: Unremarkable. No cardiomegaly. Bones/joints: Mild scoliosis with mild multilevel spondylosis. XR/XR chest 1V portable [id number] IMPRESSION: No acute disease.
--- NOTE | 2023-04-20 12:04 | ECG_ITS ---
[facility] Test Date: 2023-04-20 Pat Name: Alonso Golden Department: Room: Gender: Male Online User Experience Strategist: : 1965 Requested By: Mendel Pierson Order Number: [id number] Mariaa MD: Gage Noriega M.D. Measurements Intervals [place] Rate: 71 P: 33 AK: 147 QRS: -15 QRSD: 98 T: 13 QT: 434 QTc: 474 Interpretive Statements SINUS RHYTHM NONSPECIFIC ST & T-WAVE ABNORMALITY Compared to ECG 03/10/2023 20:19:30 Left-axis deviation no longer present T-wave abnormality still present Electronically Signed On 04-21-2023 15:52:57 BLANKER OPERATOR by Gage Noriega M.D. [id number]
[2023-04-20] MEDS: clopidogrel 300 mg Tablet PO (12:22)
[2023-04-20] MEDS: sodium chloride 0.9% 500 ML 999 ML IV (12:22)
--- NOTE | 2023-04-20 12:22 | XACV_ITS ---
Exam Room: 2 Ht: 178 cm Wt: 102 kg BSA: 2.28 m2 Gender: Male : 1965 Any Known Allergies: Cephalosporines Exam Priority: Routine Procedure(s): Procedure Description: Diagnostic procedure Procedure Description: Coronary Angiography Hari SINHA; Diagnostic Cath Status: Emergency Diagnostic Findings * Patient is brought in as a STEMI alert. EKG in the field shows ST elevation in leads V2 and V3. Emergency room EKG shows ST elevation in lead V2 only. Previous EKGs show no ST elevation. Patient was brought to the Information Developer due to ST changes and continued chest pain. * Coronary angiography reveals right coronary artery dominance. The left main coronary artery is normal. The left anterior descending contains a stent in the proximal portion which is widely patent. There is a 30 to 40% stenosis proximal to the stent. Otherwise there is mild diffuse luminal irregularities of the LAD. The circumflex is a moderate-sized vessel and gives off several small proximal marginal branches. There is a larger more distal marginal branch. There is diffuse mild disease but no significant stenoses. The right coronary artery is the dominant vessel and ends distally as a posterior descending artery and 2 small posterior left ventricular branches. There is mild to moderate diffuse disease but no significant lesions.. Conclusions 1. No significant lesions. Previously placed LAD stent, patent. Mild to moderate diffuse disease elsewhere without need for intervention. Recommendations * Medical treatment. Interventional RX Recommendation: medical therapy and/or counseling Diagnostic RX Recommendation: medical therapy and/or counseling Anticoagulation: Heparin Pressures Phase:Rest AO : 84 / 59 ( 67 ) @ 1:00:00 PM Clinical Evaluation EBL: 5mL-10mL Procedural Details Pre-Procedure Time Out. Identified patient by full name and date of as verbalized by the patient/guarantor. Does the consent match the physician's order: N/A Emergent. Accurate & Complete Informed Consent: N/A Emergent. Inpatient/Outpatient History & Physical on Chart: N/A Emergent. If H&P is completed, is and addenduem needed: N/A Emergent; If yes, is the addendum complete: N/A Emergent. Visualize and Verify Site with Patient/Guarantor: N/A. Relevant Radiology Images available: N/A Emergent. The risks, benefits, and alternatives of sedation and/or procedure were discussed by physician. The patient agrees to continue. Procedure started. Current Diagnosis : STEMI. [facility] Clinical Fraility Score: 4: Vulnerable. Information Developer Indications: ACS <= 24 hours. Chest Pain Symptom Assessment: Typical Angina Symptoms. Correct patient, site and procedure confirmed by cath team. Current diagnosis: STEMI. PERRLA. Strong, equal hand pourer crane ladle bilaterally. Lungs clear x 5 lobes. IV Site on Arrival: 18 gauge in the left anticubital. IV Fluids: 0.9% NaCl at KVO. 350 mL infused prior to clinical laboratory medical director. Oxygen started at 2liters/min via nasal canula. right groin was prepped with chloroprep then draped in the usual sterile fashion. right radial was prepped with chloroprep then draped in the usual sterile fashion. Baseline sample Acquired. HR: 69 BPM. Physician arrived. Physician scrubbed in. Immediate Pre-Procedure Time Out. Correct Patient: Yes; Correct Procedure: Yes; Correct Site: Yes; Correct Patient Position: Yes; Correct Supplies: Yes; Dried Flammable Prep: Yes; Blood Products Available: N/A;. Lidocaine 1% infiltrated to the right radial. Arterial access obtained. A 5 slovenian TIG catheter in over wire. Multiple views taken of left coronary artery. Catheter redirected to the RCA. Multiple views taken of right coronary artery. Physician review of cine films. Catheter removed over the exchange wire. Physician scrubbed out. Vital chart was stopped. A TR Band was successful obtaining hemostatsis at the Right Radial artery insertion site. Post Procedure: Pulses reassessed and unchanged. PERRLA. Strong, equal hand pourer crane ladle bilaterally. No VTE prophylaxis required. Medication's Wasted: Nitro = 49.8 mcg. Medication's Wasted: Heparin = 1000 units. Medication's Wasted: Other = Fentanyl 75mcg Versed 1 mg. Total IV fluids: 30 mL. Complications: None. Estimated blood loss: 5mL-10mL. Responsiveness - Normal response to verbal stimuli; alert and oriented, PERRLA. Airway - Unaffected, no intervention required; spontaneous ventilation. Circulation: W/N/L, pulses unchanged. Nausea/Vomiting: No. Procedure completed. Patient transferred by wheelchair to 1st floor. Access Site Site: Right Radial artery Sheath Size: 6 Fr Hemostasis Method: TR Band Hemostasis Success: Successful Procedure Medications Start: 12:45 PM Stop: 12:45 PM Medication: Fentanyl Amount: 25 mcg Route: I.V. Start: 12:52 PM Stop: 12:52 PM Medication: Versed Amount: 1 mg Route: I.V. Start: 12:58 PM Stop: 12:58 PM Medication: Nitrogylcerin Amount: 200 mcg Route: I.A. I, the attending physician, have reviewed and verified all procedure medications. Yes, all medications given per verbal order History/Risk Factors Hypertension: No Dyslipidemia: No Peripheral Arterial Disease (PAD): No Myocardial Infarction (IA): No Obesity: No Tobacco Use: Current/Recent(w/in 1 year) Prior Interventions PCI: No CABG: No Valve Surgery: No Report Signatures Finalized by Dr. Gage Noriega MD on 04/20/2023 01:24 PM
[2023-04-20] MEDS: heparin 5,000 unit/mL INJ 1 mL 4000 UNIT IVP (12:23)
--- NOTE | 2023-04-20 12:23 | W.ED.CHESTPA ---
HPI - Chest Pain General: Chief Complaint: Chest Pain Stated Complaint: STEMI Time Seen by Provider: 04/20/23 12:04 Source: patient and EMS Mode of arrival: EMS History of Present Illness: 58-year-old male presents emergency room via EMS with complaint of left-sided chest pain. He has a history of diffuse coronary artery disease. He was they were called for just generally not feeling well and shortly after they arrived he became hypotensive and began complaining of sudden onset of chest pain EKG shows ST elevation in V1 to 3 and little bit in 4 by the time he arrived here changes in V3 and forehead resolved there is still slight elevation in V2 1 and notable elevation in V2. He also became hypotensive which has persisted. He was never given any nitroglycerin or narcotics. His blood pressure initially was 70 after the chest pain started here it is in the low 90s. Patient does have a history of liver cirrhosis he denies drinking recently. He is on Plavix states that he took his last dose last night. He had stress test in September 2021 in December 2022 both of which were read as unremarkable he did have a cath in July of 2020 at that time he had diffuse disease in mid LAD stent was placed notes were reviewed. He has not had any other episodes of chest pain recently. Known cirrhosis previous CTA chest and abdomen did not show any signs of aneurysm. He was given aspirin in the field but was not given any nitroglycerin because of his symptoms of hypertension. MD complaint: chest pain Pertinent past history: coronary artery disease Onset (ago): minute(s) Onset: during rest Pain location: substernal and left chest Pain radiation: left arm and back Severity: moderate Quality: aching and heaviness Relieving factors: nothing Exacerbating factors: nothing Associated symptoms: Deny abdominal pain, dyspnea or fever(s) Treatment prior to arrival: aspirin Risk Factors: Coronary artery disease risk factors: diabetes, smoking history, hyperlipidemia and hypertension Review of Systems Const: Denies: fever(s) or chills Card: Reports: chest pain; Denies: edema or swelling of feet/ankles Resp: Denies: dyspnea GI: Denies: abdominal pain : Denies: dysuria, urinary frequency or urinary urgency Musc: Denies: neck pain or back pain Skin/Breast: Denies: rash PFSH ED PFSH: Medical History (Updated 04/20/23 @ 12:28 by Mendel Bush DO) Coronary artery disease Chronic low back pain Dyslipidemia Benign essential hypertension with target blood pressure below 140/90 Type 2 diabetes mellitus Atypical chest pain Epilepsy Obesity Glucose intolerance Smoker Hypothyroidism Surgical History (Updated 04/20/23 @ 12:38 by Gage Noriega MD) H/O heart artery stent 07/11/2020-Cardiac stent placement mid LAD H/O umbilical hernia repair History of appendectomy Family History Father , at age 74 Family history of premature coronary artery disease Had a myocardial infarction in his 40s. Diabetes CAD (coronary artery disease) Chronic kidney disease (CKD) Stroke Brother Family history of premature coronary artery disease CAD (coronary artery disease) Had [place] in the 50s Diabetes Stroke Grandmother CAD (coronary artery disease) Diabetes Grandfather CAD (coronary artery disease) Mother , at age 84 CAD (coronary artery disease) Cancer Diabetes COVID-19 Family/Other Lung disease Denies family history of Clotting disorder Dementia Suicide Anesthesia complication Bleeding disorder Social History Smoking and tobacco/nicotine status: current every day tobacco/nicotine user Alcohol intake: current Alcohol intake frequency: holidays/special occasions only Substance/Drug Use: never Household members: spouse Housing: House Marital status: Current occupational status: disabled Physical Exam Const: COMMON NORMALS: no acute distress GENERAL APPEARANCE: cooperative and comfortable ORIENTATION/CONSCIOUSNESS: Yes awake, Yes oriented to person, Yes oriented to place and Yes oriented to time HENMT: COMMON NORMALS: normocephalic, atraumatic and hearing grossly normal bilaterally HEAD & SCALP: normocephalic and atraumatic Resp: COMMON NORMALS: normal respiratory effort, No retractions, No use of accessory muscles and clear to auscultation bilaterally AUSCULTATION: clear to auscultation bilaterally Cardio: COMMON NORMALS: regular rate, regular rhythm and No murmurs present (Cardio) RATE: regular rate RHYTHM: regular rhythm GI: COMMON NORMALS: Soft to palpation and No hepatosplenomegaly present AUSCULTATION: Yes normoactive bowel sounds PALPATION: Yes Soft to palpation, No Tenderness to palpation present (GI), No Guarding due to palpation present (GI) and Yes No hepatosplenomegaly present Extremity: COMMON NORMALS: normal to inspection, capillary refill normal, no clubbing, cyanosis or edema, no calf tenderness and no pedal edema Neuro: SENSORIUM/ORIENTATION: Yes oriented to person, Yes oriented to place and Yes oriented to time Skin: COMMON NORMALS: no rashes or lesions noted GENERAL SKIN EXAM: no rashes or lesions noted Course Vital Signs: Vital signs: Vital Signs Temperature 96.6 F L 04/20/23 12:07 Pulse Rate 138 H 04/20/23 12:07 Respiratory Rate 16 04/20/23 12:07 Blood Pressure 97/58 04/20/23 12:09 Pulse Oximetry 95 04/20/23 12:07 Oxygen Delivery Me thod Room Air 04/20/23 12:07 MDM - Chest Pain Medical Decision Making Patient has STEMI by criteria based on the field EKGs there is some improvement in the EKGs on arrival here but he is still having pain STEMI alert was called from the field Dr. Noriega is in the department has seen the patient has not made the decision to return to the Tool Setter is concerned about the previous mid LAD stent. We discussed with the patient he has received aspirin in the field we have given him heparin and Plavix. We have also checked a PT and PTT because of his history of cirrhosis. Medical Records I reviewed the patient's medical records. Lab Data I reviewed the patient's lab results. 04/20/23 12:14 04/20/23 12:14 Laboratory Results WBC 11.52 10^3/uL (3.29-11.43) H 04/20/23 12:14 RBC 4.57 10^6/uL (3.85-5.65) 04/20/23 12:14 Hgb 14.00 g/dL (11.27-16.99) 04/20/23 12:14 Hct 42.5 % (37-53) 04/20/23 12:14 MCV 93.0 fl (82-101) 04/20/23 12:14 MCH 30.6 pg (27-33) 04/20/23 12:14 MCHC 32.9 g/dL (30-55) 04/20/23 12:14 RDW 14.0 % (12.1-15.1) 04/20/23 12:14 Plt Count 128 10^3/cmm (157-399) L 04/20/23 12:14 MPV 10.4 fL (7.4-10.4) 04/20/23 12:14 Neut % (Auto) 78.7 % 04/20/23 12:14 Lymph % (Auto) 9.2 % 04/20/23 12:14 [place] % (Auto) 8.0 % 04/20/23 12:14 Eos % (Auto) 1.6 % 04/20/23 12:14 Baso % (Auto) 1.0 % 04/20/23 12:14 Neut # (Auto) 9.06 10^3/uL (1.8-7.7) H 04/20/23 12:14 Lymph # (Auto) 1.1 10^3/uL (0.8-4.8) 04/20/23 12:14 [place] # (Auto) 0.9 10^3/uL (0.2-0.9) 04/20/23 12:14 Eos # (Auto) 0.2 10^3/uL (0.0-0.8) 04/20/23 12:14 Baso # (Auto) 0.1 10^3/uL (0.0-0.1) 04/20/23 12:14 Nucleated RBC % (auto) 0 % 04/20/23 12:14 Nucleated RBCs # 0.0 /100WBC 04/20/23 12:14 PT 16.30 SECONDS (12.1-14.9) H 04/20/23 12:14 INR 1.27 (0.8-1.2) H 04/20/23 12:14 APTT 27.8 SECONDS (23.9-36.7) 04/20/23 12:14 Carbon Dioxide 24 mmol/L (22-29) 04/20/23 12:14 BUN 14 mg/dL (6-20) 04/20/23 12:14 Calcium 9.3 mg/dL (8.5-10.5) 04/20/23 12:14 Alkaline Phosphatase 119 U/L (40-130) 04/20/23 12:14 Total Protein 7.1 g/dL (6.6-8.7) 04/20/23 12:14 Albumin 3.6 g/dL (3.5-5.2) 04/20/23 12:14 Globulin 3.5 g/dL (1.3-4.6) 04/20/23 12:14 All radiology interpretation(s) finalized by discharge Discharge Plan Discharge Patient Disposition: Admitted As Inpatient Clinical Impression: ST elevation myocardial infarction (STEMI), Smoker, Cirrhosis of liver with ascites Type 2 diabetes mellitus Qualifiers: Diabetes mellitus bed bug exterminator insulin use: without skilled nursing use Diabetes mellitus complication status: with hyperglycemia Qualified Code(s): E11.65 - Type 2 diabetes mellitus with hyperglycemia Coronary artery disease Qualifiers: Coronary Disease-Associated Artery/Lesion type: [place] artery [place] vs. transplanted heart: [place] heart Associated angina: with unspecified angina Qualified Code(s): I25.119 - Atherosclerotic heart disease of [place] coronary artery with unspecified angina pectoris Condition: Stable Coding Level of Care Code ED Handstitching Machine Armhole Feller for Marva Bunn
[2023-04-20 12:29] LABS: Basophils # 0.1 10^3/uL (0.0-0.1); Eosinophils # 0.2 10^3/uL (0.0-0.8); Eosinophils % 1.6 %; Hematocrit 42.5 % (37-53); Lymphocytes # 1.1 10^3/uL (0.8-4.8); Lymphocytes % 9.2 %; Mean Corpuscular HGB Conc 32.9 g/dL (30-55); Mean Corpuscular Hemoglobin 30.6 pg (27-33); Mean Platelet Volume 10.4 fL (7.4-10.4); Monocytes # 0.9 10^3/uL (0.2-0.9); Neutrophils # 9.06 10^3/uL (1.8-7.7); Neutrophils % 78.7 %; Nucleated Red Blood Cells % 0 %; Platelet Count 128 10^3/cmm (157-399); Red Blood Count 4.57 10^6/uL (3.85-5.65); White Blood Count 11.52 10^3/uL (3.29-11.43)
--- NOTE | 2023-04-20 12:33 | P.HP_ITS ---
Providers/Chief Complaint 2 Admitting Physician: aundrea Primary Care Provider: BUD Head Chief Complaint: STEMI History of Present Illness Alonso Golden is a 58 year old male who is in and out of the hospital and emergency room frequently with a variety of complaints. He is a patient typically followed by Dr. Flores. I saw him on an emergency basis on 16 December because of chest pain. After that he had a sestamibi examination on the which was normal. An echo was done on 26 December which showed normal LV function and moderate LVH. Since then he has been in the emergency room no fewer than 8 times. He came in on 02/13, 02/18, 02/27, 03/05, 03/10, 03/14, 03/20 and 04/14. He has been discharged each time Today he called the ambulance because he did not feel well. Upon picking him up he developed chest pain. The ambulance EKG shows ST segment elevation in leads V2 and V3. Apparently his blood pressure dropped into the 70s. He is being given fluids. Upon his arrival here he has 1-lead, lead V2 which shows ST segment elevation though I am not convinced this represents a evidence of an ST segment elevation [place]. He is still having pain. He has been given heparin bolus, Plavix 300 mg and fluids. He states he takes his Plavix at home. He has previously had an LAD stent placed, dyslipidemia, alcoholic cirrhosis, diabetes and tobacco abuse. Review of Systems 2 Narrative: Review of systems is positive in multiple distributions. Medications/Allergies Home Medications Medication Instructions Recorded Confirmed Last Taken Type nitroglycerin 0.4 mg sublingual 0.4 mg sublingual Q5M PRN chest 10/05/19 04/11/23 09/20/22 Rx tablet pain 30 days #30 tabs lisinopril 40 mg tablet 40 mg PO DAILY 10/18/19 04/11/23 12/06/20 History glipizide 5 mg tablet 5 mg PO DAILY@0700 03/08/20 04/11/23 12/06/20 History metformin 1,000 mg tablet,extended 1,000 mg PO BID@0700,1900 03/08/20 04/11/23 12/06/20 History release 24hr venlafaxine 75 mg capsule,extended 75 mg PO DAILY 03/08/20 04/11/23 12/06/20 History release 24 hr allopurinol 100 mg tablet 100 mg PO DAILY PRN Stomach Upset 12/13/20 04/11/23 Unknown History clopidogrel 75 mg tablet (Plavix) 75 mg PO DAILY@0700 #90 tabs 02/15/21 04/11/23 Unknown Rx aspirin 81 mg chewable tablet 81 mg PO DAILY@0700 #90 tabs 05/31/21 04/11/23 Unknown Rx acetaminophen 650 mg 650 mg PO Q8H PRN pain #30 tabs 02/17/22 04/11/23 Unknown Rx tablet,extended release (Tylenol Arthritis Pain) levothyroxine 150 mcg capsule 150 mcg PO DAILY 08/09/22 04/11/23 Unknown History Fast Form Ulnar Gutter #1 ea 09/04/22 04/11/23 Unknown Rx metoprolol tartrate 25 mg tablet 25 mg PO BID #180 tabs 12/16/22 04/11/23 Unknown Rx ondansetron 4 mg disintegrating 4 mg PO Q6H PRN nausea and 02/18/23 04/11/23 Unknown Rx tablet vomiting #14 tabs diclofenac sodium 1 % topical gel 4 g topical QID #100 grams 03/05/23 04/11/23 Unknown Rx (Voltaren Arthritis Pain) levetiracetam 750 mg tablet See Rx Instructions .Route 03/18/23 04/11/23 Unknown Rx .COMPLEX #180 tabs diclofenac sodium 50 mg 50 mg PO Q12H PRN pain #20 tabs 04/14/23 Unknown Rx tablet,delayed release methocarbamol 750 mg tablet 750 mg PO TID PRN back pain #15 04/14/23 Unknown Rx tabs methylprednisolone 4 mg tablets in See Rx Instructions PO .COMPLEX 04/14/23 Unknown Rx a dose pack #21 ea Allergies Allergy/AdvReac Type Severity Reaction Status Date / Time cephalexin [From Keflex] Allergy Unknown Verified 04/11/23 10:39 Cephalosporins Allergy hives Verified 04/11/23 10:39 PFSH Acute 2 PFSH: Medical History (Updated 04/20/23 @ 12:28 by Mendel Bush DO) Coronary artery disease Chronic low back pain Dyslipidemia Benign essential hypertension with target blood pressure below 140/90 Type 2 diabetes mellitus Atypical chest pain Epilepsy Obesity Glucose intolerance Smoker Hypothyroidism Surgical History (Updated 04/20/23 @ 12:38 by Gage Noriega MD) H/O heart artery stent 07/11/2020-Cardiac stent placement mid LAD H/O umbilical hernia repair History of appendectomy Family History Father , at age 74 Family history of premature coronary artery disease Had a myocardial infarction in his 40s. Diabetes CAD (coronary artery disease) Chronic kidney disease (CKD) Stroke Brother Family history of premature coronary artery disease CAD (coronary artery disease) Had [place] in the 50s Diabetes Stroke Grandmother CAD (coronary artery disease) Diabetes Grandfather CAD (coronary artery disease) Mother , at age 84 CAD (coronary artery disease) Cancer Diabetes COVID-19 Family/Other Lung disease Denies family history of Clotting disorder Dementia Suicide Anesthesia complication Bleeding disorder Social History Smoking and tobacco/nicotine status: current every day tobacco/nicotine user Alcohol intake: current Alcohol intake frequency: holidays/special occasions only Substance/Drug Use: never Household members: spouse Housing: House Marital status: Current occupational status: disabled Vitals/I&O/Wt Last Vital Signs Temp 96.6 F L 04/20/23 12:07 Pulse 138 H 04/20/23 12:07 Resp 16 04/20/23 12:07 BP 97/58 04/20/23 12:09 Pulse Ox 95 04/20/23 12:07 O2 Del Method Room Air 04/20/23 12:07 Weight last 48 hrs Weight 229 lb Physical Exam 2 Narrative: GENERAL: In general he looks and feels well but has a minimal amount of residual discomfort HEENT: Exam within normal limits. NECK: Supple without jugular vein distention. The carotid upstroke is normal without bruits. BACK: Exam normal. LUNGS: Clear. HEART: Regular rate and rhythm. ABDOMEN: Benign without organomegaly or tenderness. EXTREMITIES: No edema. NEUROLOGIC: Exam normal. SKIN: Unremarkable. Data 04/20/23 12:14 04/20/23 12:14 A&P Assessment and plan (1) Hypothyroidism due to Hieu's thyroiditis: (2) Atherosclerotic heart disease of [place] coronary artery with other forms of angina pectoris: (3) Coronary artery disease: Qualifiers: Coronary Disease-Associated Artery/Lesion type: [place] artery [place] vs. 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 He does have an LAD stent. His EKG here shows only ST elevation in lead V2 but the rest of his EKG does not suggest an acute myocardial infarction. Because of the EKG findings and his chest pain we will take him to the catheterization laboratory. Attestations 2 Medical Necessity Statement*: Admission and treatment for chest discomfort and abnormal EKG. and High Time for a total of 45 minutes, includes reviewing past or interval history, examining/interviewing patient, placing orders, counseling patient/family/other support, updating patient/family/other support, discussing plan of care with staff, communicating with other healthcare providers, documenting encounter and coordinating care Diagnoses Hypothyroidism due to Hieu's thyroiditis E03.8; E06.3 Atherosclerotic heart disease of [place] coronary artery with other forms of angina pectoris I25.118 Coronary artery disease involving [place] coronary artery of [place] heart with angina pectoris I25.119 Coronary Disease-Associated Artery/Lesion type: [place] artery [place] vs. 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
--- NOTE | 2023-04-20 12:40 | PC.PHAR ---
PT STATES DOES NOT THINK HE IS ON VENLAFAXINE 75 MG OR LISINOPRIL 40 MG ANY LONGER. REMOVED FROM RECORD. 04/20/23
[2023-04-20 12:41] LABS: INR 1.27 (0.8-1.2); Partial Thromboplastin Time 27.8 SECONDS (23.9-36.7)
[2023-04-20 12:56] LABS: Alanine Aminotransferase 52 U/L (0-41); Albumin Level 3.6 g/dL (3.5-5.2); Alkaline Phosphatase 119 U/L (40-130); Blood Urea Nitrogen 14 mg/dL (6-20); Calcium 9.3 mg/dL (8.5-10.5); Carbon Dioxide 24 mmol/L (22-29); Chloride 96 mmol/L (98-107); Globulin 3.5 g/dL (1.3-4.6); Glomerular Filtration Rate 48.4 mL/min (90-130); Glucose 233 mg/dL (65-115); Osmolality Calculated 284 mOsm/kg (285-295); Sodium 133 mmol/L (136-145); Total Protein 7.1 g/dL (6.6-8.7)
[2023-04-20 13:00] LABS: Anion Gap 17.3 (5-19); Potassium 4.3 mmol/L (3.5-5.1)
[2023-04-20 13:01] LABS: Aspartate Amino Transferase 104 U/L (0-40)
[2023-04-20 13:03] LABS: Troponin(5th) Baseline 29 ng/L (0-15)
[2023-04-20 13:41] LABS: NT Pro B Type Natriuretic Pept 204 pg/mL (0-125)
[2023-04-20] MEDS: sodium chloride 0.9% 1,000 ML 100 ML IV (14:04)
--- NOTE | 2023-04-20 16:37 | PC.NURSE ---
TR band removed at 1452. No hematoma noted. Patient vitals WNL. Patient sitting in bed watching TV.
[2023-04-20 17:24] LABS: Glucose Point of Care 304 mg/dL (70-110)
[2023-04-20] MEDS: metoprolol tartrate 25 mg Tablet PO (18:11)
[2023-04-20] MEDS: levETIRAcetam 500 mg Tablet 750 MG PO (18:12)
[2023-04-20 19:46] LABS: Troponin 5 6HR 153.8 ng/L (0-15); Troponin 5 6HR Delta 124.8 ng/L (0-12)
[2023-04-20] MEDS: acetaminophen 325 mg Tablet 650 MG PO (20:50)
[2023-04-20 21:14] LABS: Glucose Point of Care 235 mg/dL (70-110)
[2023-04-21 00:21] VITALS: BP 128/91; PULSE 66; RESP 14; O2SAT 98
[2023-04-21 04:41] VITALS: BP 126/75; PULSE 62; RESP 13; O2SAT 94
[2023-04-21 05:33] LABS: Glucose Point of Care 173 mg/dL (70-110)
[2023-04-21 06:00] VITALS: PULSE 60
[2023-04-21] MEDS: aspirin 81 mg Chew Tablet PO (06:51)
[2023-04-21] MEDS: clopidogrel 75 mg Tablet PO (06:51)
--- NOTE | 2023-04-21 06:59 | PM.DCS ---
Discharge Providers Date of Admission: 04/20/23 13:27 Date of Discharge: April 21, 2023 Attending Provider at Admission: Gage Noriega MD Attending Provider at Discharge: Gage Noriega MD Primary Care Provider: BUD Head Diagnoses at Discharge Discharge Diagnosis (1) Hypothyroidism due to Hieu's thyroiditis: Status: Acute (2) Atherosclerotic heart disease of [place] coronary artery with other forms of angina pectoris: Status: Acute (3) Coronary artery disease: Status: Acute Qualifiers: Coronary Disease-Associated Artery/Lesion type: [place] artery [place] vs. transplanted heart: [place] heart Associated angina: with unspecified angina Qualified Code(s): I25.119 - Atherosclerotic heart disease of [place] coronary artery with unspecified angina pectoris (4) Cirrhosis of liver with ascites: Status: Acute (5) Mild cognitive impairment with memory loss: Status: Acute (6) Benign essential hypertension with target blood pressure below 140/90: Status: Acute (7) Type 2 diabetes mellitus: Status: Acute Qualifiers: Diabetes mellitus long-term insulin use: without press tender long goods use Diabetes mellitus complication status: with hyperglycemia Qualified Code(s): E11.65 - Type 2 diabetes mellitus with hyperglycemia (8) Chest pain: Status: Acute (9) H/O heart artery stent: Status: Acute Permanent problem details: 07/11/2020-Cardiac stent placement mid LAD Reason for Visit Reason for Visit: STEMI Brief History: Patient was brought in as a STEMI alert. He is in the hospital several times a month and admitted on occasion for a multitude of medical problems. He arrived by ambulance yesterday under a STEMI alert. His EKG in the field showed ST elevation in leads V2 and V3. His EKG here showed 1-lead of ST elevation, lead V2. His chest pain was nebulous and difficult to define. Because of his continued chest pain and the new findings on his EKG he went to the catheterization laboratory immediately. His initial troponin was 29. The second troponin was 153 but it was drawn at 6 hours. Hospital Course Hospital Course His arteries were relatively unremarkable. He has diffuse mild to moderate coronary disease but there were no vessel occlusions. He has a previously placed stent to his LAD which was widely patent. No intervention was done. The procedure was done from the right radial artery. There were no complications. His metformin was held. Physical Exam Narrative: GENERAL: In general he looks and feels well HEENT: Exam within normal limits. NECK: Supple without jugular vein distention. The carotid upstroke is normal without bruits. BACK: Exam normal. LUNGS: Clear. HEART: Regular rate and rhythm. ABDOMEN: Benign without organomegaly or tenderness. EXTREMITIES: No edema. At the time of discharge his right radial artery is flat, dry without hematoma or bleeding. NEUROLOGIC: Exam normal. SKIN: Unremarkable. Discharge Data Studies Completed and Pending Completed Studies During Hospitalization Category Date Time Status CORE ANALYST request for service Stat Exams 04/20/23 12:22 Completed XR chest 1V portable [id number] Stat Exams 04/20/23 12:04 Completed Radiology Impressions Chest X-Ray 04/20/23 12:04 IMPRESSION: No acute disease. Laboratory Results WBC 11.52 10^3/uL (3.29-11.43) H 04/20/23 12:14 RBC 4.57 10^6/uL (3.85-5.65) 04/20/23 12:14 Hgb 14.00 g/dL (11.27-16.99) 04/20/23 12:14 Hct 42.5 % (37-53) 04/20/23 12:14 MCV 93.0 fl (82-101) 04/20/23 12:14 MCH 30.6 pg (27-33) 04/20/23 12:14 MCHC 32.9 g/dL (30-55) 04/20/23 12:14 RDW 14.0 % (12.1-15.1) 04/20/23 12:14 Plt Count 128 10^3/cmm (157-399) L 04/20/23 12:14 MPV 10.4 fL (7.4-10.4) 04/20/23 12:14 Neut % (Auto) 78.7 % 04/20/23 12:14 Lymph % (Auto) 9.2 % 04/20/23 12:14 [place] % (Auto) 8.0 % 04/20/23 12:14 Eos % (Auto) 1.6 % 04/20/23 12:14 Baso % (Auto) 1.0 % 04/20/23 12:14 Neut # (Auto) 9.06 10^3/uL (1.8-7.7) H 04/20/23 12:14 Lymph # (Auto) 1.1 10^3/uL (0.8-4.8) 04/20/23 12:14 [place] # (Auto) 0.9 10^3/uL (0.2-0.9) 04/20/23 12:14 Eos # (Auto) 0.2 10^3/uL (0.0-0.8) 04/20/23 12:14 Baso # (Auto) 0.1 10^3/uL (0.0-0.1) 04/20/23 12:14 Nucleated RBC % (auto) 0 % 04/20/23 12:14 Nucleated RBCs # 0.0 /100WBC 04/20/23 12:14 PT 16.30 SECONDS (12.1-14.9) H 04/20/23 12:14 INR 1.27 (0.8-1.2) H 04/20/23 12:14 APTT 27.8 SECONDS (23.9-36.7) 04/20/23 12:14 Sodium 133 mmol/L (136-145) L 04/20/23 12:14 Potassium 4.3 mmol/L (3.5-5.1) 04/20/23 12:14 Chloride 96 mmol/L (98-107) L 04/20/23 12:14 Carbon Dioxide 24 mmol/L (22-29) 04/20/23 12:14 Anion Gap 17.3 (5-19) 04/20/23 12:14 BUN 14 mg/dL (6-20) 04/20/23 12:14 Creatinine 1.5 mg/dL (0.7-1.2) H 04/20/23 12:14 GFR Calculation 48.4 mL/min (90-130) L 04/20/23 12:14 Glucose 233 mg/dL (65-115) H 04/20/23 12:14 POC Glucose 173 mg/dL (70-110) H 04/21/23 05:25 Calculated Osmolality 284 mOsm/kg (285-295) L 04/20/23 12:14 Calcium 9.3 mg/dL (8.5-10.5) 04/20/23 12:14 Total Bilirubin 2.0 mg/dL (0.15-1.2) H 04/20/23 12:14 AST 104 U/L (0-40) H 04/20/23 12:14 ALT 52 U/L (0-41) H 04/20/23 12:14 Alkaline Phosphatase 119 U/L (40-130) 04/20/23 12:14 Troponin T Baseline 29 ng/L (0-15) H 04/20/23 12:14 Troponin T Hi Sens 6Hr 153.8 ng/L (0-15) H 04/20/23 19:10 Troponin T Hi Sens 6Hr Delta 124.8 ng/L (0-12) H* 04/20/23 19:10 NT-Pro-B Natriuret Pep 204 pg/mL (0-125) H 04/20/23 12:14 Total Protein 7.1 g/dL (6.6-8.7) 04/20/23 12:14 Albumin 3.6 g/dL (3.5-5.2) 04/20/23 12:14 Globulin 3.5 g/dL (1.3-4.6) 04/20/23 12:14 Procedures Performed Coronary angiography Vitals Last Vital Signs Temp 97.9 F 04/20/23 20:34 Pulse 60 04/21/23 06:00 Resp 13 04/21/23 04:41 BP 126/75 04/21/23 04:41 Pulse Ox 94 04/21/23 04:41 O2 Del Method Room Air 04/21/23 04:41 Discharge Plan Discharge Patient Disposition: Home Condition: Stable Prescriptions: Continued glipizide 5 mg tablet 5 mg PO DAILY@0700 metformin 1,000 mg tablet extended release 24hr 1,000 mg PO BID@0700,1900 Hold Instructions: Resume on 07/13/20. May restart this medication on 13 of July allopurinol 100 mg tablet 100 mg PO DAILY PRN (Reason: GOUT) nitroglycerin 0.4 mg tablet, sublingual 0.4 mg SUBLINGUAL Q5M PRN (Reason: chest pain) 30 Days Qty: 30 3RF Rx Instructions: until response; do not exceed 3 doses per episode (DME) Fast Form Migdalia Villanueva See Rx Instructions .Route .MEDSUPPLY Qty: 1 0RF Rx Instructions: As directed metoprolol tartrate 25 mg tablet 25 mg PO BID Qty: 180 4RF Plavix 75 mg tablet 75 mg PO DAILY@0700 Qty: 90 3RF aspirin 81 mg tablet,chewable 81 mg PO DAILY@0700 Qty: 90 3RF levothyroxine 150 mcg capsule 150 mcg PO DAILY levetiracetam 750 mg tablet 750 mg PO BID Voltaren Arthritis Pain 1 % gel 4 g topical QID PRN (Reason: Pain) acetaminophen [Tylenol Arthritis Pain] 650 mg tablet extended release 650 mg PO Q8H PRN (Reason: pain) Qty: 30 0RF diclofenac sodium 50 mg tablet,delayed release (DR/EC) 50 mg PO Q12H PRN (Reason: pain) Qty: 20 0RF methocarbamol 750 mg tablet 750 mg PO TID PRN (Reason: back pain) Qty: 15 0RF Discharge Orders: Discharge Order (Routine); Ordered 04/21/23 Ordered By: Gage Noriega Referrals: Dorita Flaherty FNP [Primary Care Provider] - Kourtney Judge FNP [Nurse Practitioner] - 7-10 days (Check right radial artery and chemistry panel. Set up appoint with Dr. Flores for 6 months.) Discharge Diet: Diabetic Discharge Activity: Increase activity as tolerated and Limit activity as instructed Patient Instructions: Opioid Safety Activity Restrictions/Additional Instructions: No lifting over 5 pounds for 2 days Discharge Attestations Time Spent in Discharge Care*: greater than 30 min Quality Metrics Clinical Quality Measures [ No reported AMI, CVA or VTE this stay] Coding Level of Care Code 43345 Total time (in minutes) for Discharge: 40 Diagnoses Hypothyroidism due to Hieu's thyroiditis E03.8; E06.3 Atherosclerotic heart disease of [place] coronary artery with other forms of angina pectoris I25.118 Coronary artery disease involving [place] coronary artery of [place] heart with angina pectoris I25.119 Coronary Disease-Associated Artery/Lesion type: [place] artery [place] vs. transplanted heart: [place] heart Associated angina: with unspecified angina Cirrhosis of liver with ascites K74.60; R18.8 Mild cognitive impairment with memory loss G31.84 Benign essential hypertension with target blood pressure below 140/90 I10 Type 2 diabetes mellitus with hyperglycemia, without long-term current use of insulin E11.65 Diabetes mellitus long-term insulin use: without long-term use Diabetes mellitus complication status: with hyperglycemia Other chest pain R07.9 H/O heart artery stent Z95.5
[2023-04-21 07:52] VITALS: PULSE 60
--- NOTE | 2023-04-21 07:53 | PC.NURSE ---
pt stated he wants to go home and would not wait for us to make appointments for him. he stated he will call then and he will be back on the for an mri. discharge instructions provided to pt such as post angiogram home care, holding metformin for 2 days and to resume on 04/23. pt verbalizes understanding,.
== END 2023-04-21 07:58 | disposition home or self-care (01) ==
LOC: ER 12:07 → CCL 12:23 → CSU 16:48
PROVIDERS: Admitting Provider Internal Medicine Cardiovascular Disease; Emergency Provider Family Medicine; PCP Nurse Practitioner Family; Visit Provider Internal Medicine Cardiovascular Disease
DX: E03.8 Other specified hypothyroidism (principal); E06.3 Autoimmune thyroiditis; I25.118 Atherosclerotic heart disease of native coronary artery with other forms of angina pectoris; I25.119 Atherosclerotic heart disease of native coronary artery with unspecified angina pectoris; K74.60 Unspecified cirrhosis of liver; R18.8 Other ascites; G31.84 Mild cognitive impairment of uncertain or unknown etiology; I10 Essential (primary) hypertension; E11.65 Type 2 diabetes mellitus with hyperglycemia; R07.9 Chest pain, unspecified; Z95.5 Presence of coronary angioplasty implant and graft; Z79.84 Long term (current) use of oral hypoglycemic drugs; Z79.82 Long term (current) use of aspirin; E66.9 Obesity, unspecified; Z68.32 Body mass index [BMI] 32.0-32.9, adult; F17.200 Nicotine dependence, unspecified, uncomplicated
CPT/HCPCS: 36416; 71045; 80053; 82962; 83880; 84484; 85025; 85610; 85730; 93005; 93454; 96374; 96376; 99152; 99153; 99285; C1769; C1887; C1894; G0378; J1644; J2250; J3010; J3490; J7030; Q9967

== ENCOUNTER 2023-05-13 08:32 | Outpatient (CLI) | payer MEDICAID, SELFPAY ==
--- NOTE | 2023-05-13 09:30 | MR_ITS ---
WS: [id number] MRI RIGHT KNEE NONCONTRAST TECHNIQUE: Axial PD, coronal PD fat sat, coronal PD, sagittal PD, and sagittal PD fat-sat images obta ined. CLINICAL INFORMATION: right knee pain, rule out meniscal tear COMPARISON: None. FINDINGS: Distal quadriceps and patella tendons are intact. Small amount of edema with contusion or degenerativ e change involving the superior medial patellar facet. This is at the insertion of the medial patella r retinaculum which appears intact. Medial and lateral collateral ligaments are intact. Normal popliteus. Hypertrophic patella. Normal AC L and PCL. Normal lateral meniscus. Chronic thinning of the medial meniscus. No acute appearing menis markel tears. Peripheral extrusion of the medial meniscus. IMPRESSION: 1. Normal ACL and PCL. 2. Hypertrophic patella with mild chondromalacia patella. 3. T2 hyperintense lesion in the superior medial patellar facet at the medial patellar retinacular i nsertion may represent contusion with osteochondral injury or degenerative change from repetitive lynette rotrauma. Thinning of the cartilage in this area. 4. Normal lateral meniscus. No acute appearing meniscal tears. 5. Chronic peripheral extrusion of the medial meniscus with chronic thinning. Outbridge grading: grade II: blister-like swelling/fraying of articular cartilage extending to surfac e
== END 2023-05-13 08:33 | disposition home or self-care (01) ==
LOC: RAD 08:32
PROVIDERS: PCP Nurse Practitioner Family; Visit Provider Student in an Organized Health Care Education/Training Program
DX: M22.41 Chondromalacia patellae, right knee (principal); M89.38 Hypertrophy of bone, other site; M22.91 Unspecified disorder of patella, right knee; I25.119 Atherosclerotic heart disease of native coronary artery with unspecified angina pectoris; F17.200 Nicotine dependence, unspecified, uncomplicated; I25.2 Old myocardial infarction; Z95.5 Presence of coronary angioplasty implant and graft
CPT/HCPCS: 73721; 99213

== ENCOUNTER → 2023-05-19 09:20 | Outpatient (BNVA) | payer MEDICAID, SELFPAY | PROVIDERS: PCP Nurse Practitioner Family; Visit Provider Internal Medicine | DX: E03.8 Other specified hypothyroidism (principal); E06.3 Autoimmune thyroiditis; R63.5 Abnormal weight gain; E11.65 Type 2 diabetes mellitus with hyperglycemia; Z79.890 Hormone replacement therapy; Z79.84 Long term (current) use of oral hypoglycemic drugs; Z68.31 Body mass index [BMI] 31.0-31.9, adult; K74.60 Unspecified cirrhosis of liver | CPT/HCPCS: 99214 ==

== ENCOUNTER → 2023-06-10 14:45 | Outpatient (BNVA) | payer MEDICAID, SELFPAY | PROVIDERS: PCP Nurse Practitioner Family; Visit Provider Student in an Organized Health Care Education/Training Program | DX: M23.306 Other meniscus derangements, unspecified meniscus, right knee (principal); M94.261 Chondromalacia, right knee | CPT/HCPCS: 20610; 99214; J1040 ==

== ENCOUNTER → 2023-06-16 11:12 | Outpatient (BNVA) | payer MEDICAID, SELFPAY | PROVIDERS: PCP Nurse Practitioner Family; Visit Provider Internal Medicine Cardiovascular Disease | DX: R07.9 Chest pain, unspecified (principal); F17.200 Nicotine dependence, unspecified, uncomplicated; I10 Essential (primary) hypertension; E78.5 Hyperlipidemia, unspecified; I25.118 Atherosclerotic heart disease of native coronary artery with other forms of angina pectoris; Z95.5 Presence of coronary angioplasty implant and graft; F11.11 Opioid abuse, in remission; E11.65 Type 2 diabetes mellitus with hyperglycemia; K74.60 Unspecified cirrhosis of liver; R18.8 Other ascites; K76.0 Fatty (change of) liver, not elsewhere classified; G31.84 Mild cognitive impairment of uncertain or unknown etiology; Z79.84 Long term (current) use of oral hypoglycemic drugs | CPT/HCPCS: 99214 ==

== ENCOUNTER 2023-06-25 17:10 | Emergency (ER) | payer MEDICAID, SELFPAY ==
[2023-06-25 17:11] VITALS: BP 130/81; PULSE 95; RESP 16; TEMP 36.7; O2SAT 96
--- NOTE | 2023-06-25 17:24 | XRR_ITS ---
PROCEDURE INFORMATION: Exam: XR Left Knee Exam date and time: 06/25/2023 5:35 PM Age: 58 years old Clinical indication: Pain; Knee; Left; Additional info: Knee pain TECHNIQUE: Imaging protocol: Radiologic exam of the left knee. Views: 3 views. COMPARISON: CR XR knee LT 3V* [id number] 02/17/2022 2:36 PM FINDINGS: Bones/joints: Negative for acute bony abnormality. Narrowing of the medial compartment consistent with mild osteoarthritis. Soft tissues: Normal. XR/XR knee LT 3V* [id number] IMPRESSION: 1. No acute findings. 2. Mild osteoarthritis.
--- NOTE | 2023-06-25 17:24 | ED_ITS ---
HPI - Extremity Problem General: Chief complaint: Extremity Injury, Lower Stated complaint: left knee pain Time Seen by Provider: 06/25/23 17:15 History of Present Illness: 58-year-old male patient comes in today with left knee pain. Patient is recently been evaluated for his right knee with orthopedist Dr. Villalobos. Patient denies any recent falls or injuries. No obvious swelling is noted. No redness or induration is noted. Patient reports that the pain started when he went to lay down for a nap this afternoon. Patient reports no change in activity or injury. Review of Systems General: Reports: 10 or more systems reviewed and unremarkable except in HPI and below Musc: Reports: joint pain (Left knee) PFS ED PFSH: Medical History Coronary artery disease Chronic low back pain Dyslipidemia Benign essential hypertension with target blood pressure below 140/90 Type 2 diabetes mellitus Atypical chest pain Epilepsy Obesity Glucose intolerance Smoker Hypothyroidism Surgical History H/O heart artery stent 07/11/2020-Cardiac stent placement mid LAD H/O umbilical hernia repair History of appendectomy Family History Father , at age 74 Family history of premature coronary artery disease Had a myocardial infarction in his 40s. Diabetes CAD (coronary artery disease) Chronic kidney disease (CKD) Stroke Brother Family history of premature coronary artery disease CAD (coronary artery disease) Had [place] in the 50s Diabetes Stroke Grandmother CAD (coronary artery disease) Diabetes Grandfather CAD (coronary artery disease) Mother , at age 84 CAD (coronary artery disease) Cancer Diabetes COVID-19 Family/Other Lung disease Denies family history of Clotting disorder Dementia Suicide Anesthesia complication Bleeding disorder Social History Smoking and tobacco/nicotine status: current every day tobacco/nicotine user Alcohol intake: current Alcohol intake frequency: holidays/special occasions only Substance/Drug Use: never Household members: spouse Housing: House Marital status: Current occupational status: disabled Physical Exam Const: COMMON NORMALS: alert HENMT: COMMON NORMALS: normocephalic HEAD & SCALP: normocephalic Neck/C-Spine: COMMON NORMALS: full ROM Resp: COMMON NORMALS: normal respiratory effort Cardio: COMMON NORMALS: regular rate and regular rhythm RATE: regular rate RHYTHM: regular rhythm Back/Pelvis: COMMON NORMALS: thoracic and lumbar spine normal to inspection Extremity: LEFT LOWER EXTREMITY: Yes knee joint Left knee: Yes inspection, Yes palpation (Patellar tenderness, no swelling or induration), Yes ROM and Yes neurovascular exam Neuro: SENSORIUM/ORIENTATION: Yes alert Skin: COMMON NORMALS: turgor normal GENERAL SKIN EXAM: turgor normal Course Vital Signs: Vital signs: Vital Signs Temperature 98.0 F 06/25/23 17:11 Pulse Rate 95 06/25/23 17:11 Respiratory Rate 16 06/25/23 17:11 Blood Pressure 130/81 06/25/23 17:11 Pulse Oximetry 96 06/25/23 17:11 Oxygen Delivery Me thod Room Air 06/25/23 17:11 MDM - Extremity (Nontraumatic) Medical Decision Making 58-year-old male patient comes in today with left knee pain. Patient denies any injury. On exam there is minimal to no swelling noted anteriorly. Distal pulses and sensation are intact. Manipulation of the patella increases pain. Differential diagnosis includes patellofemoral syndrome, osteoarthritis, tendinitis. X-ray shows no acute injury. Reviewed exam with patient with recommendations for treatment follow-up with inventory management specialist or primary care. Patient reported understanding and agreed to plan. XR interpretation done by ED provider, pending radiology final review Discharge Plan Discharge Patient Disposition: Home Clinical Impression: Acute pain of left knee Condition: Stable Prescriptions: New hydrocodone-acetaminophen 5-325 mg tablet 1 tab PO Q8H PRN (Reason: pain) Qty: 10 0RF No Action glipizide 5 mg tablet 5 mg PO DAILY@0700 metformin 1,000 mg tablet extended release 24hr 1,000 mg PO BID@0700,1900 Hold Instructions: Resume on 07/13/20. May restart this medication on 13 of July allopurinol 100 mg tablet 100 mg PO DAILY PRN (Reason: GOUT) nitroglycerin 0.4 mg tablet, sublingual 0.4 mg SUBLINGUAL Q5M PRN (Reason: chest pain) 30 Days Qty: 30 3RF Rx Instructions: until response; do not exceed 3 doses per episode (DME) Fast Form Ulnar Gutter See Rx Instructions .Route .MEDSUPPLY Qty: 1 0RF Rx Instructions: As directed metoprolol tartrate 25 mg tablet 25 mg PO BID Qty: 180 4RF Plavix 75 mg tablet 75 mg PO DAILY@0700 Qty: 90 3RF aspirin 81 mg tablet,chewable 81 mg PO DAILY@0700 Qty: 90 3RF levothyroxine 150 mcg capsule 150 mcg PO DAILY Qty: 30 0RF levetiracetam 750 mg tablet 750 mg PO BID Voltaren Arthritis Pain 1 % gel 4 g topical QID PRN (Reason: Pain) acetaminophen [Tylenol Arthritis Pain] 650 mg tablet extended release 650 mg PO Q8H PRN (Reason: pain) Qty: 30 0RF diclofenac sodium 50 mg tablet,delayed release (DR/EC) 50 mg PO Q12H PRN (Reason: pain) Qty: 20 0RF methocarbamol 750 mg tablet 750 mg PO TID PRN (Reason: back pain) Qty: 15 0RF Discharge Orders: Discharge ED (Routine); Ordered 06/25/23 Ordered By: Alexis Brian Referrals: Dorita Flaherty FNP [Primary Care Provider] - Discharge Diet: Usual diet Discharge Activity: Increase activity as tolerated Patient Instructions: Knee Pain (ED), Opioid Safety Activity Restrictions/Additional Instructions: Home and rest. Activity as tolerated. Continue with routine medications and treatments for pain. Use hydrocodone for severe pain. Use ice or heat for further pain relief. Follow-up with primary care or inventory management specialist for further evaluation and treatment. Return to ED for new concerns. Coding Level of Care Code ED Information Management Specialist for Marva Bunn
[2023-06-25] MEDS: ketorolac 30 mg/mL INJ IM (17:43)
[2023-06-25 18:01] VITALS: PULSE 89; RESP 16; O2SAT 99
== END 2023-06-25 18:02 | disposition home or self-care (01) ==
PROVIDERS: Emergency Provider Nurse Practitioner Family; PCP Nurse Practitioner Family
DX: M25.562 Pain in left knee (principal); Z79.02 Long term (current) use of antithrombotics/antiplatelets; Z79.82 Long term (current) use of aspirin; Z79.84 Long term (current) use of oral hypoglycemic drugs; Z72.0 Tobacco use; I25.10 Atherosclerotic heart disease of native coronary artery without angina pectoris; E78.5 Hyperlipidemia, unspecified; I10 Essential (primary) hypertension; E11.9 Type 2 diabetes mellitus without complications
CPT/HCPCS: 73562; 96372; 99284; J1885

== ENCOUNTER → 2023-07-03 12:45 | Outpatient (BNVA) | payer MEDICAID, SELFPAY | PROVIDERS: PCP Nurse Practitioner Family; Visit Provider Student in an Organized Health Care Education/Training Program | DX: M25.562 Pain in left knee (principal); M23.307 Other meniscus derangements, unspecified meniscus, left knee | CPT/HCPCS: 73560; 73565; 99213 ==

== ENCOUNTER 2023-07-06 23:17 | Inpatient (IN) | payer MEDICAID, SELFPAY ==
[2023-07-06 23:22] VITALS: BP 141/83; PULSE 105; RESP 16; O2SAT 96
[2023-07-06 23:27] VITALS: TEMP 36.6
--- NOTE | 2023-07-06 23:28 | W.ED.ABDPA2 ---
Documented by User: BUD Dickerson 07/09/23 13:07 HPI - Abdominal Pain General: Chief Complaint: Abdominal Pain Stated Complaint: right lower abdomen Time Seen by Provider: 07/06/23 23:26 History of Present Illness: 58-year-old male patient comes in with right side abdominal pain. Patient reports pain is on and off for several weeks. Patient appears nontoxic. Patient appears no acute distress. Patient has a history of gallbladder removal and fatty liver disease. Patient believes that he has ascites that is causing his pain. Patient reports that he has had fluid removed from his abdominal cavity 20 years ago due to ascites. Patient other medical problems include diabetes mellitus, CAD, tobacco use disorder. Review of Systems General: Reports: 10 or more systems reviewed and unremarkable except in HPI and below GI: Reports: abdominal pain PFSH ED PFSH: Medical History (Updated 07/09/23 @ 00:00 by DANITA Cervantes) Acute kidney injury Coronary artery disease Chronic low back pain Dyslipidemia Benign essential hypertension with target blood pressure below 140/90 Type 2 diabetes mellitus Atypical chest pain Epilepsy Obesity Glucose intolerance Smoker Hypothyroidism Surgical History (Updated 07/09/23 @ 00:00 by DANITA Cervantes) H/O heart artery stent 07/11/2020-Cardiac stent placement mid LAD H/O umbilical hernia repair History of appendectomy Family History Father , at age 74 Family history of premature coronary artery disease Had a myocardial infarction in his 40s. Diabetes CAD (coronary artery disease) Chronic kidney disease (CKD) Stroke Brother Family history of premature coronary artery disease CAD (coronary artery disease) Had [place] in the 50s Diabetes Stroke Grandmother CAD (coronary artery disease) Diabetes Grandfather CAD (coronary artery disease) Mother , at age 84 CAD (coronary artery disease) Cancer Diabetes COVID-19 Family/Other Lung disease Denies family history of Clotting disorder Dementia Suicide Anesthesia complication Bleeding disorder Social History Smoking and tobacco/nicotine status: current every day tobacco/nicotine user Alcohol intake: current Alcohol intake frequency: holidays/special occasions only Substance/Drug Use: never Household members: spouse Housing: House Marital status: Current occupational status: disabled Physical Exam Const: COMMON NORMALS: alert HENMT: COMMON NORMALS: normocephalic HEAD & SCALP: normocephalic Neck/C-Spine: COMMON NORMALS: full ROM Resp: COMMON NORMALS: normal respiratory effort and clear to auscultation bilaterally AUSCULTATION: clear to auscultation bilaterally Cardio: COMMON NORMALS: regular rate and regular rhythm RATE: regular rate RHYTHM: regular rhythm GI: COMMON NORMALS: Soft to palpation AUSCULTATION: Yes normoactive bowel sounds PALPATION: Yes Soft to palpation and Yes Tenderness to palpation present (GI) (Generalized) Back/Pelvis: COMMON NORMALS: thoracic and lumbar spine normal to inspection Extremity: COMMON NORMALS: full ROM Neuro: SENSORIUM/ORIENTATION: Yes alert Skin: COMMON NORMALS: turgor normal GENERAL SKIN EXAM: turgor normal Course ED course: 49, patient's labs showed a glucose of 1058, creatinine was 1.8, sodium was 117. Patient was negative for ketones. Patient was started on IV fluids and to await redraw of CMP due to abnormalities. Patient appears nontoxic. Reviewed patient with Dr. Beyer with assumed care of patient at the end of my shift. Vital Signs: Vital signs: Vital Signs Temperature 98.0 F 07/07/23 16:00 Pulse Rate 76 07/08/23 10:00 Respiratory Rate 28 H 07/08/23 10:00 Blood Pressure 120/87 07/08/23 11:04 Pulse Oximetry 98 07/08/23 10:00 Oxygen Delivery Me thod Room Air 07/08/23 06:00 MDM - Abdominal Pain Medical Decision Making 58-year-old male patient comes in with right lower quadrant abdominal pain. On exam patient appears nontoxic. Abdomen is rotund with right side generalized abdominal tenderness. No CVA tenderness. Bowel sounds are present. Skin is warm and dry. Differential diagnosis includes but not limited to appendicitis, constipation, renal calculi, ureteral calculi, UTI. Lab Data 07/08/23 03:53 07/08/23 03:53 Labs/Radiology: Radiology Impressions Abdomen/Pelvis CT 07/06/23 23:31 IMPRESSION: 1. Mildly prominent fluid in the small bowel without dilation may reflect an enteritis. 2. Spleen enlarged to 16 cm. 3. Coronary artery atherosclerotic calcifications. 4. Cirrhotic liver. 5. Small amount of perihepatic ascites. 6. Scattered varices in the abdomen reflective of portal venous hypertension. 7. Cholecystectomy. 8. Bnzd-me-bvjabetr constipation. KUB X-Ray 07/07/23 15:04 IMPRESSION: Large amount of colonic stool. Laboratory Results WBC 10.28 10^3/uL (3.29-11.43) 07/06/23 23:30 RBC 4.33 10^6/uL (3.85-5.65) 07/06/23 23:30 Hgb 13.50 g/dL (11.27-16.99) 07/06/23 23:30 Hct 39.4 % (37-53) 07/06/23 23: MCV 91.0 fl (82-101) 07/06/23 23: MCH 31.2 pg (27-33) 07/06/23 23: MCHC 34.3 g/dL (30-55) 07/06/23 23:30 RDW 13.4 % (12.1-15.1) 07/06/23 23:30 Plt Count 99 10^3/cmm (157-399) L 07/06/23 23:30 MPV 11.6 fL (7.4-10.4) H 07/06/23 23:30 Neut % (Auto) 90.4 % 07/06/23 23:30 Lymph % (Auto) 4.7 % 07/06/23 23:30 [place] % (Auto) 4.2 % 07/06/23 23:30 Eos % (Auto) 0.0 % 07/06/23 23:30 Baso % (Auto) 0.1 % 07/06/23 23: Neut # (Auto) 9.30 10^3/uL (1.8-7.7) H 07/06/23 23:30 Lymph # (Auto) 0.5 10^3/uL (0.8-4.8) L 07/06/23 23:30 [place] # (Auto) 0.4 10^3/uL (0.2-0.9) 07/06/23 23:30 Eos # (Auto) 0.0 10^3/uL (0.0-0.8) 07/06/23 23:30 Baso # (Auto) 0.0 10^3/uL (0.0-0.1) 07/06/23 23:30 Nucleated RBC % (auto) 0 % 07/06/23 23:30 Nucleated RBCs # 0.0 /100WBC 07/06/23 23:30 Specimen Type Arterial 07/07/23 00:41 Sample Site Brachial, right 07/07/23 00:41 ABG pH 7.36 (7.35-7.45) 07/07/23 00:41 ABG pCO2 42.2 mmHg (35-45) 07/07/23 00:41 ABG pO2 70.6 mmHg (80.0-100.0) L 07/07/23 00:41 ABG HCO3 23.8 mmol/L (22-26) 07/07/23 00:41 ABG Base Excess -1.7 mmol/L (-2.0-2.0) 07/07/23 00:41 Willem Test N/a 07/07/23 00:41 Hematocrit 41.8 % (42-52) L 07/07/23 00:41 O2 Delivery Device Room air 07/07/23 00:41 Lead Cytogenetic Technologist ID [email or web address] 07/07/23 00:41 Sodium 122 mmol/L (136-145) L 07/07/23 02:30 Potassium 4.9 mmol/L (3.5-5.1) 07/07/23 02:30 Chloride 87 mmol/L (98-107) L 07/07/23 02:30 Carbon Dioxide 23 mmol/L (22-29) 07/07/23 02:30 Anion Gap 16.9 (5-19) 07/07/23 02:30 BUN 28 mg/dL (6-20) H 07/07/23 02:30 Creatinine 1.5 mg/dL (0.7-1.2) H 07/07/23 02:30 GFR Calculation 48.4 mL/min (90-130) L 07/07/23 02:30 Glucose 900 mg/dL (65-115) H* 07/07/23 02:30 POC Glucose > 600 mg/dL (70-110) H* 07/07/23 01:41 Calculated Osmolality 304 mOsm/kg (285-295) H 07/07/23 02:30 Calcium 9.0 mg/dL (8.5-10.5) 07/07/23 02:30 Total Bilirubin 1.5 mg/dL (0.15-1.2) H 07/07/23 00:30 AST 39 U/L (0-40) 07/07/23 00:30 ALT 43 U/L (0-41) H 07/07/23 00:30 Alkaline Phosphatase 229 U/L (40-130) H 07/07/23 00:30 Total Protein 8.3 g/dL (6.6-8.7) 07/07/23 00:30 Albumin 4.0 g/dL (3.5-5.2) 07/07/23 00:30 Globulin 4.3 g/dL (1.3-4.6) 07/07/23 00:30 Lipase 138 U/L (13-60) H 07/06/23 23:30 Urine Color Colorless (Yellow) 07/06/23 23:34 Urine Appearance Clear (CLEAR) 07/06/23 23:34 Urine pH 6.5 (5-7) 07/06/23 23:34 Ur Specific [place] 1.010 (1.005-1.030) 07/06/23 23:34 Urine Protein Neg (Negative) 07/06/23 23:34 Urine Glucose (UA) 4+ (Normal) H 07/06/23 23:34 Urine Ketones Negative (Negative) 07/06/23 23:34 Urine Blood Neg (Negative) 07/06/23 23:34 Urine Nitrate Negative (Negative) 07/06/23 23:34 Urine Bilirubin Neg (Negative) 07/06/23 23:34 Urine Urobilinogen Norm mg/dL (Negative) 07/06/23 23:34 Ur Leukocyte Esterase Negative (Negative) 07/06/23 23:34 Serum Ketones Negative (Negative) 07/07/23 00:30 Discharge Plan Discharge Patient Disposition: Admitted As Inpatient Admit Provider: Luis E Gaxiola Clinical Impression: Hyponatremia with increased serum osmolality, Hyperglycemia without ketosis Condition: Stable Discharge Diet: Diabetic Discharge Activity: Resume usual activity Coding Level of Care Code ED Car Ferry Master for Marva Bunn Documented by User: Khadar Beyer DO 07/07/23 20:37 HPI - Abdominal Pain General: Chief Complaint: Abdominal Pain Stated Complaint: right lower abdomen Time Seen by Provider: 07/06/23 23:26 [facility] ED PFSH: Medical History (Updated 07/09/23 @ 00:00 by DANITA Cervantes) Acute kidney injury Coronary artery disease Chronic low back pain Dyslipidemia Benign essential hypertension with target blood pressure below 140/90 Type 2 diabetes mellitus Atypical chest pain Epilepsy Obesity Glucose intolerance Smoker Hypothyroidism Surgical History (Updated 07/09/23 @ 00:00 by DANITA Cervantes) H/O heart artery stent 07/11/2020-Cardiac stent placement mid LAD H/O umbilical hernia repair History of appendectomy Family History Father , at age 74 Family history of premature coronary artery disease Had a myocardial infarction in his 40s. Diabetes CAD (coronary artery disease) Chronic kidney disease (CKD) Stroke Brother Family history of premature coronary artery disease CAD (coronary artery disease) Had [place] in the 50s Diabetes Stroke Grandmother CAD (coronary artery disease) Diabetes Grandfather CAD (coronary artery disease) Mother , at age 84 CAD (coronary artery disease) Cancer Diabetes COVID-19 Family/Other Lung disease Denies family history of Clotting disorder Dementia Suicide Anesthesia complication Bleeding disorder Social History Smoking and tobacco/nicotine status: current every day tobacco/nicotine user Alcohol intake: current Alcohol intake frequency: holidays/special occasions only Substance/Drug Use: never Household members: spouse Housing: House Marital status: Current occupational status: disabled Course Vital Signs: Vital signs: Vital Signs Temperature 98.0 F 07/07/23 16:00 Pulse Rate 76 07/08/23 10:00 Respiratory Rate 28 H 07/08/23 10:00 Blood Pressure 120/87 07/08/23 11:04 Pulse Oximetry 98 07/08/23 10:00 Oxygen Delivery Me thod Room Air 07/08/23 06:00 MDM - Abdominal Pain Medical Decision Making 58-year-old male patient comes in with right lower quadrant abdominal pain. On exam patient appears nontoxic. Abdomen is rotund with right side generalized abdominal tenderness. No CVA tenderness. Bowel sounds are present. Skin is warm and dry. Differential diagnosis includes but not limited to appendicitis, constipation, renal calculi, ureteral calculi, UTI. This patient was seen by BUD Dunn. I agree with his history, evaluation, and treatment. The patient is hyperkalemic and has a blood sugar greater than 1000. Serum ketones are negative. pH normal. He is given 3 liters of fluid, given an insulin bolus, and started on insulin drip. He will have to go to the ICU. CT shows a small amount enteritis likely as a cause of his abdominal pain. Hospitalist has seen the patient in the ER. Lab Data 07/08/23 03:53 07/08/23 03:53 Labs/Radiology: Radiology Impressions Abdomen/Pelvis CT 07/06/23 23:31 IMPRESSION: 1. Mildly prominent fluid in the small bowel without dilation may reflect an enteritis. 2. Spleen enlarged to 16 cm. 3. Coronary artery atherosclerotic calcifications. 4. Cirrhotic liver. 5. Small amount of perihepatic ascites. 6. Scattered varices in the abdomen reflective of portal venous hypertension. 7. Cholecystectomy. 8. Vgyb-he-xyqxyoqn constipation. KUB X-Ray 07/07/23 15:04 IMPRESSION: Large amount of colonic stool. Laboratory Results WBC 10.28 10^3/uL (3.29-11.43) 07/06/23 23:30 RBC 4.33 10^6/uL (3.85-5.65) 07/06/23 23:30 Hgb 13.50 g/dL (11.27-16.99) 07/06/23 23:30 Hct 39.4 % (37-53) 07/06/23 23:30 MCV 91.0 fl (82-101) 07/06/23 23:30 MCH 31.2 pg (27-33) 07/06/23 23:30 MCHC 34.3 g/dL (30-55) 07/06/23 23:30 RDW 13.4 % (12.1-15.1) 07/06/23 23:30 Plt Count 99 10^3/cmm (157-399) L 07/06/23 23:30 MPV 11.6 fL (7.4-10.4) H 07/06/23 23:30 Neut % (Auto) 90.4 % 07/06/23 23:30 Lymph % (Auto) 4.7 % 07/06/23 23:30 [place] % (Auto) 4.2 % 07/06/23 23:30 Eos % (Auto) 0.0 % 07/06/23 23:30 Baso % (Auto) 0.1 % 07/06/23 23:30 Neut # (Auto) 9.30 10^3/uL (1.8-7.7) H 07/06/23 23:30 Lymph # (Auto) 0.5 10^3/uL (0.8-4.8) L 07/06/23 23:30 [place] # (Auto) 0.4 10^3/uL (0.2-0.9) 07/06/23 23:30 Eos # (Auto) 0.0 10^3/uL (0.0-0.8) 07/06/23 23:30 Baso # (Auto) 0.0 10^3/uL (0.0-0.1) 07/06/23 23:30 Nucleated RBC % (auto) 0 % 07/06/23 23:30 Nucleated RBCs # 0.0 /100WBC 07/06/23 23:30 Specimen Type Arterial 07/07/23 00:41 Sample Site Brachial, right 07/07/23 00:41 ABG pH 7.36 (7.35-7.45) 07/07/23 00:41 ABG pCO2 42.2 mmHg (35-45) 07/07/23 00:41 ABG pO2 70.6 mmHg (80.0-100.0) L 07/07/23 00:41 ABG HCO3 23.8 mmol/L (22-26) 07/07/23 00:41 ABG Base Excess -1.7 mmol/L (-2.0-2.0) 07/07/23 00:41 Willem Test N/a 07/07/23 00:41 Hematocrit 41.8 % (42-52) L 07/07/23 00:41 O2 Delivery Device Room air 07/07/23 00:41 Lead Cytogenetic Technologist ID [email or web address] 07/07/23 00:41 Sodium 122 mmol/L (136-145) L 07/07/23 02:30 Potassium 4.9 mmol/L (3.5-5.1) 07/07/23 02:30 Chloride 87 mmol/L (98-107) L 07/07/23 02:30 Carbon Dioxide 23 mmol/L (22-29) 07/07/23 02:30 Anion Gap 16.9 (5-19) 07/07/23 02:30 BUN 28 mg/dL (6-20) H 07/07/23 02:30 Creatinine 1.5 mg/dL (0.7-1.2) H 07/07/23 02:30 GFR Calculation 48.4 mL/min (90-130) L 07/07/23 02:30 Glucose 900 mg/dL (65-115) H* 07/07/23 02:30 POC Glucose > 600 mg/dL (70-110) H* 07/07/23 01:41 Calculated Osmolality 304 mOsm/kg (285-295) H 07/07/23 02:30 Calcium 9.0 mg/dL (8.5-10.5) 07/07/23 02:30 Total Bilirubin 1.5 mg/dL (0.15-1.2) H 07/07/23 00:30 AST 39 U/L (0-40) 07/07/23 00:30 ALT 43 U/L (0-41) H 07/07/23 00:30 Alkaline Phosphatase 229 U/L (40-130) H 07/07/23 00:30 Total Protein 8.3 g/dL (6.6-8.7) 07/07/23 00:30 Albumin 4.0 g/dL (3.5-5.2) 07/07/23 00:30 Globulin 4.3 g/dL (1.3-4.6) 07/07/23 00:30 Lipase 138 U/L (13-60) H 07/06/23 23:30 Urine Color Colorless (Yellow) 07/06/23 23:34 Urine Appearance Clear (CLEAR) 07/06/23 23:34 Urine pH 6.5 (5-7) 07/06/23 23:34 Ur Specific [place] 1.010 (1.005-1.030) 07/06/23 23:34 Urine Protein Neg (Negative) 07/06/23 23:34 Urine Glucose (UA) 4+ (Normal) H 07/06/23 23:34 Urine Ketones Negative (Negative) 07/06/23 23:34 Urine Blood Neg (Negative) 07/06/23 23:34 Urine Nitrate Negative (Negative) 07/06/23 23:34 Urine Bilirubin Neg (Negative) 07/06/23 23:34 Urine Urobilinogen Norm mg/dL (Negative) 07/06/23 23:34 Ur Leukocyte Esterase Negative (Negative) 07/06/23 23:34 Serum Ketones Negative (Negative) 07/07/23 00:30 All radiology interpretation(s) finalized by discharge Critical Care Time Critical Care Time: Critical Care Time: Yes Total Critical Care Time: 35 Attestation: This case had a high probability of a clinically significant, sudden, or life threatening deterioration of this patient's condition which required my full and direct attention, intervention and personal management. Time is independent of any procedures performed. Discharge Plan Discharge Patient Disposition: Admitted As Inpatient Admit Provider: Luis E Gaxiola Clinical Impression: Hyponatremia with increased serum osmolality, Hyperglycemia without ketosis Condition: Stable Discharge Diet: Diabetic Discharge Activity: Resume usual activity Coding Level of Care Code ED Car Ferry Master for Marva Bunn
--- NOTE | 2023-07-06 23:31 | CTR_ITS ---
PROCEDURE INFORMATION: Exam: CT Abdomen And Pelvis Without Contrast Exam date and time: 07/06/2023 11:37 PM Age: 58 years old Clinical indication: Abdominal pain; Generalized; Prior surgery; Surgery date: 6+ months; Surgery type: Gb. Hernia repair; Patient HX: Diffuse abd pain. History of cirrhosis. ; Additional info: Abd pain, generalized TECHNIQUE: Imaging protocol: Computed tomography of the abdomen and pelvis without contrast. Radiation optimization: All CT scans at this facility use at least one of these dose optimization techniques: automated exposure control; mA and/or kV adjustment per patient size (includes targeted exams where dose is matched to clinical indication); or iterative reconstruction. COMPARISON: CT abdomen pelvis w con* [id number] 10/23/2022 9:23 PM RADIATION DOSE METRICS: Total DLP (mGy-cm): 934.32 FINDINGS: Coronary arteries: Coronary artery atherosclerotic calcifications. Liver: Cirrhotic liver. Gallbladder and bile ducts: Cholecystectomy. Pancreas: Normal. No ductal dilation. Spleen: Spleen enlarged to 16 cm. Adrenal glands: Normal. No mass. Kidneys and ureters: Normal. No hydronephrosis. Stomach and bowel: Mildly prominent fluid in the small bowel without dilation may reflect an enteritis. Adsv-ip-yfmwxpye constipation. Appendix: No evidence of appendicitis. Intraperitoneal space: Small amount of perihepatic ascites. Vasculature: Scattered varices in the abdomen reflective of portal venous hypertension. Lymph nodes: Unremarkable. No enlarged lymph nodes. Urinary bladder: Unremarkable as visualized. Reproductive: Unremarkable as visualized. Bones/joints: Unremarkable. No acute fracture. Soft tissues: Unremarkable. CT/CT abdomen pelvis wo con [id number] IMPRESSION: 1. Mildly prominent fluid in the small bowel without dilation may reflect an enteritis. 2. Spleen enlarged to 16 cm. 3. Coronary artery atherosclerotic calcifications. 4. Cirrhotic liver. 5. Small amount of perihepatic ascites. 6. Scattered varices in the abdomen reflective of portal venous hypertension. 7. Cholecystectomy. 8. Wehb-mv-czrzxsya constipation.
[2023-07-06 23:38] LABS: Add Urine Microscopic? NO; Charge for UA Resulting for Rev
[2023-07-06 23:42] LABS: Basophils % 0.1 %; Hematocrit 39.4 % (37-53); Lymphocytes # 0.5 10^3/uL (0.8-4.8); Lymphocytes % 4.7 %; Mean Corpuscular HGB Conc 34.3 g/dL (30-55); Mean Corpuscular Hemoglobin 31.2 pg (27-33); Mean Platelet Volume 11.6 fL (7.4-10.4); Monocytes # 0.4 10^3/uL (0.2-0.9); Monocytes % 4.2 %; Neutrophils % 90.4 %; Nucleated Red Blood Cells % 0 %; Platelet Count 99 10^3/cmm (157-399); Red Blood Count 4.33 10^6/uL (3.85-5.65); Red Cell Distribution Width 13.4 % (12.1-15.1); White Blood Count 10.28 10^3/uL (3.29-11.43)
[2023-07-06 23:50] LABS: Bilirubin Urine Neg (Negative); Blood Urine Neg (Negative); Glucose Urine UA 4+ (Normal); Ketones Urine Negative (Negative); Leukocyte Esterase Urine Negative (Negative); Nitrate Urine Negative (Negative); Protein Urine Neg (Negative); Urine Appearance Clear (CLEAR); Urine Color Colorless (Yellow); Urobilinogen Urine Norm (Negative); pH Urine 6.5 (5-7)
[2023-07-06] MEDS: ondansetron 2 mg/ML SDV 2 mL 4 MG IVP (23:51)
[2023-07-06] MEDS: morphine 4 mg/mL SDV 1 mL IVP (23:51)
[2023-07-06 23:59] LABS: Albumin Level 3.9 g/dL (3.5-5.2)
[2023-07-07] VITALS (47 sets, daily range): BP systolic 92–146; BP diastolic 61–110; PULSE 60–115; RESP 0–26; TEMP 36.6–36.8; O2SAT 89–100
[2023-07-07 00:06] LABS: Alanine Aminotransferase 42 U/L (0-41); Alkaline Phosphatase 217 U/L (40-130); Anion Gap 22.6 (5-19); Aspartate Amino Transferase 40 U/L (0-40); Blood Urea Nitrogen 28 mg/dL (6-20); Calcium 9.1 mg/dL (8.5-10.5); Carbon Dioxide 20 mmol/L (22-29); Chloride 80 mmol/L (98-107); Creatinine Clr Calc Pharmacy 53.6724; Glomerular Filtration Rate 39.2 mL/min (90-130); Lipase 138 U/L (13-60); Potassium 5.6 mmol/L (3.5-5.1); Total Bilirubin 1.5 mg/dL (0.15-1.2); Total Protein 7.9 g/dL (6.6-8.7)
[2023-07-07 00:07] LABS: Sodium 117 mmol/L (136-145)
[2023-07-07 00:16] LABS: Osmolality Calculated 303 mOsm/kg (285-295)
[2023-07-07 00:18] LABS: Glucose 1058 mg/dL (65-115)
[2023-07-07] MEDS: sodium chloride 0.9% 1,000 ML 999 ML IV ×3 (00:41→02:38)
[2023-07-07 00:48] LABS: Ketone (Acetest) Serum Negative (Negative)
[2023-07-07 00:52] LABS: ABG PCO2 42.2 mmHg (35-45); ABG PH Result 7.36 (7.35-7.45); Arterial Blood Gas Hematocrit 41.8 % (42-52); Base Excess ABG -1.7 mmol/L (-2.0-2.0); Blood Gas Sample Site Brachial, right; Blood Gas Sample Type Arterial; HCO3 ABG 23.8 mmol/L (22-26); Oxygen Device ROOM AIR; PO2 ABG 70.6 mmHg (80.0-100.0)
[2023-07-07 01:01] LABS: Alanine Aminotransferase 43 U/L (0-41); Alkaline Phosphatase 229 U/L (40-130); Anion Gap 20.8 (5-19); Aspartate Amino Transferase 39 U/L (0-40); Blood Urea Nitrogen 29 mg/dL (6-20); Calcium 9.5 mg/dL (8.5-10.5); Carbon Dioxide 21 mmol/L (22-29); Chloride 81 mmol/L (98-107); Creatinine Clr Calc Pharmacy 56.8296; Globulin 4.3 g/dL (1.3-4.6); Glomerular Filtration Rate 41.9 mL/min (90-130); Potassium 5.8 mmol/L (3.5-5.1); Total Bilirubin 1.5 mg/dL (0.15-1.2); Total Protein 8.3 g/dL (6.6-8.7)
[2023-07-07 01:10] LABS: Osmolality Calculated 302 mOsm/kg (285-295)
[2023-07-07 01:16] LABS: Sodium 117 mmol/L (136-145)
[2023-07-07 01:17] LABS: Glucose 1043 mg/dL (65-115)
[2023-07-07] MEDS: insulin regular-human 100 units/1 mL 15 UNIT IVP (01:42)
[2023-07-07 01:44] LABS: Glucose Point of Care > 600 mg/dL (70-110)
[2023-07-07 01:44] LABS: Glucose Point of Care > 600 mg/dL (70-110)
[2023-07-07] MEDS: insulin regular-human 250 UNIT in sodium chloride 0.9% 250 ML 9.59999999999999964 UNIT IV (02:46)
[2023-07-07 02:49] LABS: Blood Urea Nitrogen 28 mg/dL (6-20); Carbon Dioxide 23 mmol/L (22-29); Chloride 87 mmol/L (98-107); Creatinine Clr Calc Pharmacy 64.4068; Glomerular Filtration Rate 48.4 mL/min (90-130); Sodium 122 mmol/L (136-145)
[2023-07-07 02:58] LABS: Osmolality Calculated 304 mOsm/kg (285-295)
[2023-07-07 02:59] LABS: Anion Gap 16.9 (5-19); Potassium 4.9 mmol/L (3.5-5.1)
[2023-07-07 03:00] LABS: Glucose 900 mg/dL (65-115)
--- NOTE | 2023-07-07 03:18 | P.HP_ITS ---
Providers/Chief Complaint 2 Admitting Physician: Khalida Primary Care Provider: BUD Head Chief Complaint: right lower abdomen History of Present Illness Alonso Golden is a 58 year old male with noninsulin-dependent type 2 diabetes mellitus tobacco abuse hypertension Cirrhosis of the liver secondary to fatty liver, CAD status post coronary artery stent and history of opioid abuse presents with abdominal pain. He describes his pain to me as his known liver pain from liver cirrhosis. He has had no vomiting or diarrhea, denies fever,. Patient states he does not check his blood sugars on a usual basis and tries to keep his blood sugars between 120 and 150 which she says is typical. He says that he has not gotten around to taking his metformin or glyburide today. And he also admits to drinking sugar drinks such as soda and juices a lot lately. Review of Systems 2 Const: Denies: fever(s) or chills Eyes: Denies: change in vision ENMT: Denies: throat pain or nasal congestion Card: Denies: chest pain or palpitations Resp: Denies: dyspnea or productive cough GI: Denies: nausea, vomiting or change in stool character : Denies: difficulty urinating or dysuria Musc: Denies: back pain or extremity pain Skin/Breast: Reports: rash (Abdominal wall eczema) and pruritus (From abdominal wall eczema); Denies: lesions Neuro: Denies: headache(s) or dizziness Psych: Denies: anxiety or depression Jose G/Lymph: Denies: easy bruising or easy bleeding Medications/Allergies Home Medications Medication Instructions Recorded Confirmed Last Taken Type nitroglycerin 0.4 mg sublingual 0.4 mg sublingual Q5M PRN chest 10/05/19 07/03/23 09/20/22 Rx tablet pain 30 days #30 tabs glipizide 5 mg tablet 5 mg PO DAILY@0700 03/08/20 07/03/23 04/20/23 History metformin 1,000 mg tablet,extended 1,000 mg PO BID@0700,1900 03/08/20 07/03/23 04/20/23 History release 24hr (osmotic) allopurinol 100 mg tablet 100 mg PO DAILY PRN GOUT 12/13/20 07/03/23 Unknown History clopidogrel 75 mg tablet (Plavix) 75 mg PO DAILY@0700 #90 tabs 02/15/21 07/03/23 04/20/23 Rx aspirin 81 mg chewable tablet 81 mg PO DAILY@0700 #90 tabs 05/31/21 07/03/23 04/20/23 Rx acetaminophen 650 mg 650 mg PO Q8H PRN pain #30 tabs 02/17/22 07/03/23 Unknown Rx tablet,extended release (Tylenol Arthritis Pain) Fast Form Ulnar Gutter #1 ea 09/04/22 07/03/23 Unknown Rx metoprolol tartrate 25 mg tablet 25 mg PO BID #180 tabs 12/16/22 07/03/23 04/20/23 Rx diclofenac sodium 50 mg 50 mg PO Q12H PRN pain #20 tabs 04/14/23 07/03/23 Unknown Rx tablet,delayed release methocarbamol 750 mg tablet 750 mg PO TID PRN back pain #15 04/14/23 07/03/23 Unknown Rx tabs diclofenac sodium 1 % topical gel 4 g topical QID PRN Pain 04/20/23 07/03/23 Unknown History (Voltaren Arthritis Pain) levetiracetam 750 mg tablet 750 mg PO BID 04/20/23 07/03/23 04/20/23 History levothyroxine 150 mcg capsule 150 mcg PO DAILY #30 caps 06/24/23 07/03/23 Unknown Rx prednisone 20 mg tablet 20 mg PO DAILY #15 tabs 07/03/23 07/03/23 Unknown Rx Allergies Allergy/AdvReac Type Severity Reaction Status Date / Time cephalexin [From Keflex] Allergy Unknown Verified 07/03/23 12:58 Cephalosporins Allergy hives Verified 07/03/23 12:58 PFSH Acute 2 PFSH: Medical History (Updated 07/07/23 @ 03:34 by Luis E Gaxiola DO) Acute kidney injury Coronary artery disease Chronic low back pain Dyslipidemia Benign essential hypertension with target blood pressure below 140/90 Type 2 diabetes mellitus Atypical chest pain Epilepsy Obesity Glucose intolerance Smoker Hypothyroidism Surgical History H/O heart artery stent 07/11/2020-Cardiac stent placement mid LAD H/O umbilical hernia repair History of appendectomy Family History Father , at age 74 Family history of premature coronary artery disease Had a myocardial infarction in his 40s. Diabetes CAD (coronary artery disease) Chronic kidney disease (CKD) Stroke Brother Family history of premature coronary artery disease CAD (coronary artery disease) Had NE in the 50s Diabetes Stroke Grandmother CAD (coronary artery disease) Diabetes Grandfather CAD (coronary artery disease) Mother , at age 84 CAD (coronary artery disease) Cancer Diabetes COVID-19 Family/Other Lung disease Denies family history of Clotting disorder Dementia Suicide Anesthesia complication Bleeding disorder Social History Smoking and tobacco/nicotine status: current every day tobacco/nicotine user Alcohol intake: current Alcohol intake frequency: holidays/special occasions only Substance/Drug Use: never Household members: spouse Housing: House Marital status: Current occupational status: disabled Vitals/I&O/Wt Last Vital Signs Temp 97.8 F 07/06/23 23:27 Pulse 105 H 07/06/23 23:22 Resp 16 07/07/23 00:42 BP 141/78 07/07/23 00:42 Pulse Ox 94 07/07/23 00:42 O2 Del Method Room Air 07/06/23 23:22 07/06/23 07/06/23 07/07/23 14:59 22:59 06:59 Intake Total 915.75 / 915.75 Balance 915.75 / 915.75 Weight last 48 hrs Weight 97.522 kg Physical Exam 2 Narrative: 58-year-old male appearing approximately 10 years older and chronically ill. He is in no acute distress at time of exam. He has a grumpy personality. He appears well-hydrated well-nourished he is malodorous of cigarettes. Neuro: AAOx3 intact, exam is nonfocal HEENT NC/AT, PERRLA/EOMI nasal and pharyngeal mucosa is erythematous and moist patient has upper dentures and no teeth on the bottom except for a few post. Neck is supple no JVD carotid bruits or lymphadenopathy Heart: Regular normal S1-S2 without murmurs clicks gallops or rubs Lungs: Clear breath sounds poor aeration both inspiratory and prolonged expiration no wheezes rales or rhonchi Abdomen: Protuberant minimal right middle tenderness no rebound rigidity or guarding Extremities no clubbing cyanosis or edema Psych: Patient has angry personality he reports he will only stay until tomorrow and complaining that were keeping him here. I assured him that he can make his own choice. Back: No kyphosis or scoliosis. No CVA tenderness Skin: The skin of the upper abdomen has hair and he has like a folliculitis or eczema there is an overall erythematous appearance of the area and the follicle shafts to have circular erythema and the skin appears dry. No other rashes noted no lesions Data 07/06/23 23:30 07/07/23 02:30 CT Abd/Pel: Radiologist's impression: IMPRESSION: 1. Mildly prominent fluid in the small bowel without dilation may reflect an enteritis. 2. Spleen enlarged to 16 cm. 3. Coronary artery atherosclerotic calcifications. 4. Cirrhotic liver. 5. Small amount of perihepatic ascites. 6. Scattered varices in the abdomen reflective of portal venous hypertension. 7. Cholecystectomy. 8. Riqw-oh-sxmklsek constipation. A&P Assessment and plan (1) Hyperglycemia without ketosis: (2) Hyponatremia with increased serum osmolality: (3) Acute kidney injury: (4) Splenomegaly: (5) 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: (6) H/O heart artery stent: (7) Fatty infiltration of liver: (8) Cirrhosis of liver with ascites: (9) Smoker: (10) Type 2 diabetes mellitus: Qualifiers: Diabetes mellitus long term care administrator insulin use: without correction use Diabetes mellitus complication status: with hyperglycemia Qualified Code(s): E11.65 - Type 2 diabetes mellitus with hyperglycemia (11) Enteritis: Plan Patient will be admitted to the ICU due to requiring insulin drip and it is the only unit that can provide that level of care. Despite not having ketosis or acidosis we will continue the insulin drip until blood sugar is decreasing and then he can start his normal medications Check hemoglobin A1c, none seen in computer since 2019 Enteritis will be treated with Zosyn Tobacco abuse is treated with nicotine. Counseled patient for smoking cessation and he refused. Patient in agreement that he is nonadherent to medical recommendations. This will limit our ability to stop the progression of his disease processes. Attestations 2 Medical Necessity Statement*: It is suspected that the patient's care would require greater than 2 midnights for the treatment of severe hyperglycemia, enteritis. Patient is at high risk for complications due to his cirrhosis and congestive splenomegaly with portal hypertension. Coding Level of Care Code Acute Code for Chg Fwd Diagnoses Hyperglycemia without ketosis R73.9 Hyponatremia with increased serum osmolality E87.0; E87.1 Acute kidney injury N17.9 Splenomegaly R16.1 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 K74.60 H/O heart artery stent Z95.5 Fatty infiltration of liver K76.0 Cirrhosis of liver with ascites K74.60; R18.8 Smoker F17.200 Type 2 diabetes mellitus with hyperglycemia, without long-term current use of insulin E11.65 Diabetes mellitus correction insulin use: without correction use Diabetes mellitus complication status: with hyperglycemia Enteritis K52.9
[2023-07-07] MEDS: piperacillin-tazobactam 3.375 GM in sodium chloride 0.9% (plus) 50 ML IV ×3 (03:21→20:08)
--- NOTE | 2023-07-07 03:21 | PC.NURSE ---
Hospitalist stated to let patient go out to the parking lot and smoke.
[2023-07-07 03:46] LABS: Estmated Average Glucose 278; Hemoglobin A1C 11.3 % (4.0-6.0)
[2023-07-07] MEDS: nicotine 21 mg Patch 1 PATCH TRANSDERMA (03:56)
[2023-07-07] MEDS: sodium chloride 0.9% 1,000 ML 150 ML IV ×2 (03:59→10:54)
[2023-07-07 04:03] LABS: Glucose Point of Care > 600 mg/dL (70-110)
--- NOTE | 2023-07-07 04:18 | PC.NURSE ---
Telepharmacist called to verify provider was aware PLT count was 99, and heparin was ordered . This Nurse called Khalida and verified. stated heparin was still to be given.
[2023-07-07] MEDS: heparin 5,000 unit/mL INJ 1 mL 5000 UNIT SUBCUT ×3 (04:20→20:08)
[2023-07-07 04:46] LABS: Anion Gap 15.5 (5-19); Blood Urea Nitrogen 28 mg/dL (6-20); Calcium 8.7 mg/dL (8.5-10.5); Carbon Dioxide 22 mmol/L (22-29); Chloride 91 mmol/L (98-107); Creatinine Clr Calc Pharmacy 64.2659; Glomerular Filtration Rate 48.4 mL/min (90-130); Osmolality Calculated 298 mOsm/kg (285-295); Potassium 4.5 mmol/L (3.5-5.1); Sodium 124 mmol/L (136-145)
[2023-07-07 04:48] LABS: Glucose 719 mg/dL (65-115)
[2023-07-07 05:25] LABS: Glucose Point of Care 582 mg/dL (70-110)
--- NOTE | 2023-07-07 05:27 | PC.NURSE ---
Pt BG critical and protocol required to call . did not answer multiple times, so a sugar was retaken and came back at 582. Dr Gaxiola contacted and she wantwd the rate to change from 9.6 u/hr to 7 u/hr.
[2023-07-07 06:24] LABS: Glucose Point of Care > 600 mg/dL (70-110)
[2023-07-07 06:59] LABS: Glucose 571 mg/dL (65-115)
[2023-07-07 07:34] LABS: Glucose Point of Care > 600 mg/dL (70-110)
[2023-07-07] MEDS: acetaminophen 325 mg Tablet 650 MG PO ×3 (07:48→20:31)
[2023-07-07] MEDS: morphine 4 mg/mL SDV 1 mL 2 MG IVP (08:01)
--- NOTE | 2023-07-07 08:13 | PC.PHAR ---
Addendum entered by Meme Conklin 07/07/23 09:28: [facility] states plavix was last filled 75mg daily for the pt in jan 2022 when he was using rameys -notes are made in the pharmacy comments Original Note: pt states he takes care of his own medications-pt states to call [facility] to find out correct mgs of all meds-pt states he has some bid doses but just takes both tabs at once on his medications-[facility] opens at 9 am-will call [facility] at 9am then update med rec
[2023-07-07 08:23] LABS: Anion Gap 13.1 (5-19); Blood Urea Nitrogen 25 mg/dL (6-20); Calcium 8.8 mg/dL (8.5-10.5); Carbon Dioxide 24 mmol/L (22-29); Chloride 96 mmol/L (98-107); Glomerular Filtration Rate 52.4 mL/min (90-130); Magnesium 1.8 mg/dL (1.7-2.3); Osmolality Calculated 295 mOsm/kg (285-295); Phosphorus 2.1 mg/dL (2.5-4.5); Potassium 4.1 mmol/L (3.5-5.1); Sodium 129 mmol/L (136-145)
[2023-07-07 08:36] LABS: Creatinine Clr Calc Pharmacy 68.8563; Glucose 508 mg/dL (65-115)
--- NOTE | 2023-07-07 09:14 | PC.NURSE ---
Deviating from Insulin drip protocol per Bhavani orders. Keeping at a rate of 7units/hr. Following protocol causes blood sugar to drop too quickly(greater than 100 points per hours), patient blood sugar is also taking longer to result due to need for lab testing making it difficult to safely increase insulin.
[2023-07-07 09:19] LABS: Glucose Point of Care 516 mg/dL (70-110)
[2023-07-07 10:03] LABS: Glucose Point of Care 484 mg/dL (70-110)
[2023-07-07 11:10] LABS: Glucose Point of Care 452 mg/dL (70-110)
[2023-07-07 12:17] LABS: Glucose Point of Care 255 mg/dL (70-110)
--- NOTE | 2023-07-07 12:54 | PC.NURSE ---
12pm blood sugar check was 255. THis is a 197 point drop from previous blood sugar 1 hour ago. Due to drop greater than 100, nurse alerted Dr Beckham. Received orders to decrease insulin from 14 units/hr down to 7 units/hr. She wants the blood sugar to remain around 250 for the next 4 hours. Moshe continue to monitor.
[2023-07-07 13:06] LABS: Anion Gap 13.9 (5-19); Blood Urea Nitrogen 21 mg/dL (6-20); Calcium 8.6 mg/dL (8.5-10.5); Carbon Dioxide 25 mmol/L (22-29); Chloride 99 mmol/L (98-107); Glomerular Filtration Rate 57.1 mL/min (90-130); Glucose 251 mg/dL (65-115); Magnesium 1.8 mg/dL (1.7-2.3); Osmolality Calculated 289 mOsm/kg (285-295); Phosphorus 1.8 mg/dL (2.5-4.5); Potassium 3.9 mmol/L (3.5-5.1); Sodium 134 mmol/L (136-145)
[2023-07-07 13:27] LABS: Glucose Point of Care 249 mg/dL (70-110)
--- NOTE | 2023-07-07 14:02 | PM.PN ---
Subjective Subjective: This morning. Patient requesting to go home. Nursing staff told me that he is signed AMA in the past. His sugar is currently 485. He states he only takes oral glipizide and metformin at home. He has never been on insulin before. He says he checks his sugar when he feels like it after probing further he said that he may be checks it 2-3 times a month. Patient agreeable to stay till tomorrow for now. Currently on insulin drip. Magnesium phosphorus potassium levels pending. Creatinine 1.3. Hemoglobin A1c 11.3. Niece states patient is noncompliant with diabetic diet at home. Vitals/I&O/Wt Last Vital Signs Temp 98.3 F 07/07/23 13:12 Pulse 70 07/07/23 12:00 Resp 14 07/07/23 12:00 BP 131/90 07/07/23 12:00 Pulse Ox 100 07/07/23 12:00 O2 Del Method Room Air 07/07/23 03:40 07/06/23 07/07/23 07/07/23 22:59 06:59 14:59 Intake Total 2991.03 / 2991.03 2272.19 / 2272.19 Output Total 950 / 950 Balance 2041.03 / 2041.03 2272.19 / 2272.19 Weight last 48 hrs Weight 97.069 kg Weight 97.522 kg Physical Exam Narrative: No acute distress, no conversational dyspnea Abdomen mildly tender to palpation in all 4 quadrants, no guarding or rebound tenderness present Bowel sounds present all 4 quadrants Lungs clear to auscultation bilaterally no wheezes no rhonchi No edema bilateral lower extremities Normal S1-S2 no apparent gross murmurs identified. Data 07/06/23 23:30 07/07/23 12:15 A&P Assessment and plan (1) Coronary artery disease: Qualifiers: Coronary Disease-Associated Artery/Lesion type: [place] artery [place] vs. transplanted heart: [place] heart Associated angina: with unspecified angina Qualified Code(s): I25.119 - Atherosclerotic heart disease of [place] coronary artery with unspecified angina pectoris (2) Type 2 diabetes mellitus: Qualifiers: Diabetes mellitus braid pattern setter insulin use: without braid pattern setter use Diabetes mellitus complication status: with hyperglycemia Qualified Code(s): E11.65 - Type 2 diabetes mellitus with hyperglycemia (3) Glucose intolerance: (4) Hyperglycemia without ketosis: (5) Hyponatremia with increased serum osmolality: (6) 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: (7) Fatty infiltration of liver: (8) Splenomegaly: (9) Smoker: Plan #Hyperosmolar hyperglycemia #Pseudohyponatremia most likely secondary to elevated glucose #Acute kidney injury #Liver cirrhosis, NAFLD, small amount daniela-hepatic ascites #Splenomegaly #CAD status post PCI history #Nicotine dependence #Scattered varices and abdomen reflective of portal venous hypertension #Hypophosphatemia #Hypokalemia - Continue insulin drip at this time ? Check BMP every 4 hours, magnesium, phosphorus ? Order Phospha neutral to 50 twice daily x 2 doses ? Switch to subcutaneous Lantus and bridge ? Start diet according to protocol ? Lantus 10 units - Start Mod dose intensity sliding scale - Check BG AC/HS - He will need endo f/u at discharge. he is already established with Dr. Barcenas - Updated patient's niece on the phone. She states patient is noncompliant with his diet at home. _ continue IV fluids - NS @ 125 cc/hr Full Code DVT PPX: Heparin Subb BID Attestations Medical Necessity Statement*: It is suspected that the patient's care would require greater than 2 midnights for the treatment of severe hyperglycemia, enteritis. Patient is at high risk for complications due to his cirrhosis and congestive splenomegaly with portal hypertension. Diagnoses Coronary artery disease involving [place] coronary artery of [place] heart with angina pectoris I25.119 Coronary Disease-Associated Artery/Lesion type: [place] artery [place] vs. transplanted heart: [place] heart Associated angina: with unspecified angina Type 2 diabetes mellitus with hyperglycemia, without long-term current use of insulin E11.65 Diabetes mellitus alf insulin use: without braid pattern setter use Diabetes mellitus complication status: with hyperglycemia Glucose intolerance E74.39 Hyperglycemia without ketosis R73.9 Hyponatremia with increased serum osmolality E87.0; E87.1 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 K74.60 Fatty infiltration of liver K76.0 Splenomegaly R16.1 Smoker F17.200
[2023-07-07 14:15] LABS: Glucose Point of Care 198 mg/dL (70-110)
--- NOTE | 2023-07-07 15:04 | XRR_ITS ---
PROCEDURE INFORMATION: Exam: XR Abdomen Exam date and time: 07/07/2023 3:16 PM Age: 58 years old Clinical indication: Abdominal pain; Generalized; Prior surgery; Surgery date: 6+ months; Surgery type: Gb hernia TECHNIQUE: Imaging protocol: Radiologic exam of the abdomen. Views: Frontal supine view of the abdomen. 1 View. COMPARISON: CT abdomen pelvis wo con [id number] 07/06/2023 11:37 PM FINDINGS: Gastrointestinal tract: Large amount of colonic stool. Intraperitoneal space: Right upper quadrant surgical clips noted. Bones/joints: Mild dextrocurvature of the lumbar spine. Soft tissues: Vascular calcifications noted in the soft tissues. XR/XR KUB portable [id number] IMPRESSION: Large amount of colonic stool.
[2023-07-07] MEDS: polyethylene glycol 3350 Pkt 17 gm PO (15:13)
[2023-07-07] MEDS: insulin glargine 100 units/1 mL 10 UNIT SUBCUT ×2 (15:14→20:33)
[2023-07-07 15:19] LABS: Glucose Point of Care 214 mg/dL (70-110)
[2023-07-07 16:16] LABS: Glucose Point of Care 154 mg/dL (70-110)
[2023-07-07 16:47] LABS: Anion Gap 12.8 (5-19); Blood Urea Nitrogen 19 mg/dL (6-20); Calcium 8.4 mg/dL (8.5-10.5); Carbon Dioxide 25 mmol/L (22-29); Chloride 98 mmol/L (98-107); Creatinine Clr Calc Pharmacy 80.3324; Glomerular Filtration Rate 62.6 mL/min (90-130); Glucose 154 mg/dL (65-115); Osmolality Calculated 279 mOsm/kg (285-295); Potassium 3.8 mmol/L (3.5-5.1); Sodium 132 mmol/L (136-145)
[2023-07-07 17:15] LABS: Glucose Point of Care 148 mg/dL (70-110)
[2023-07-07] MEDS: phosphorus 250 mg Tablet PO (17:17)
[2023-07-07] MEDS: insulin lispro 100 unit/1 mL SUBCUT ×2 (17:17→20:33)
[2023-07-07] MEDS: sodium chloride 0.9% 1,000 ML 125 ML IV (18:07)
[2023-07-07] MEDS: levETIRAcetam 500 mg Tablet 1500 MG PO (18:08)
[2023-07-07] MEDS: levothyroxine 150 mcg Tablet PO (18:08)
--- NOTE | 2023-07-07 18:52 | PC.NURSE ---
Shift Summary Patient was AAOX4, on RA, NSR on tele all shift. uneventful shift. Pt titrated off insulin gtt and transitioned to subQ insulin. Lantus and sliding scale humalog ordered. PT complained of abdominal pain intermittently throughout the shift, Dr. Beckham ordered KUB which revealed constipation, pt treated with miralax with no results yet. Home meds restarted.
[2023-07-07 20:27] LABS: Glucose Point of Care 374 mg/dL (70-110)
[2023-07-07 20:27] LABS: Glucose Point of Care 436 mg/dL (70-110)
[2023-07-07 20:59] LABS: Blood Urea Nitrogen 20 mg/dL (6-20); Calcium 8.2 mg/dL (8.5-10.5); Carbon Dioxide 23 mmol/L (22-29); Chloride 99 mmol/L (98-107); Creatinine Clr Calc Pharmacy 80.3324; Glomerular Filtration Rate 62.6 mL/min (90-130); Glucose 347 mg/dL (65-115); Osmolality Calculated 290 mOsm/kg (285-295); Sodium 132 mmol/L (136-145)
[2023-07-08] VITALS (23 sets, daily range): BP systolic 85–136; BP diastolic 46–87; PULSE 53–80; RESP 4–28; O2SAT 93–99
[2023-07-08] MEDS: piperacillin-tazobactam 3.375 GM in sodium chloride 0.9% (plus) 50 ML IV (03:28)
[2023-07-08] MEDS: heparin 5,000 unit/mL INJ 1 mL 5000 UNIT SUBCUT (03:28)
[2023-07-08] MEDS: sodium chloride 0.9% 1,000 ML 125 ML IV (03:29)
[2023-07-08 04:03] LABS: Basophils % 0.4 %; Eosinophils # 0.1 10^3/uL (0.0-0.8); Eosinophils % 1.3 %; Hematocrit 37.9 % (37-53); Lymphocytes # 0.8 10^3/uL (0.8-4.8); Lymphocytes % 11.2 %; Mean Corpuscular Hemoglobin 30.9 pg (27-33); Mean Corpuscular Volume 90.7 fl (82-101); Mean Platelet Volume 10.7 fL (7.4-10.4); Monocytes # 0.5 10^3/uL (0.2-0.9); Monocytes % 7.3 %; Neutrophils # 5.68 10^3/uL (1.8-7.7); Neutrophils % 79.1 %; Nucleated Red Blood Cells % 0 %; Platelet Count 75 10^3/cmm (157-399); Red Blood Count 4.18 10^6/uL (3.85-5.65); White Blood Count 7.17 10^3/uL (3.29-11.43)
[2023-07-08 04:22] LABS: Alanine Aminotransferase 37 U/L (0-41); Albumin Level 3.2 g/dL (3.5-5.2); Alkaline Phosphatase 129 U/L (40-130); Aspartate Amino Transferase 46 U/L (0-40); Blood Urea Nitrogen 18 mg/dL (6-20); Calcium 8.4 mg/dL (8.5-10.5); Carbon Dioxide 24 mmol/L (22-29); Chloride 104 mmol/L (98-107); Creatinine Clr Calc Pharmacy 87.6353; Globulin 3.3 g/dL (1.3-4.6); Glomerular Filtration Rate 69.2 mL/min (90-130); Glucose 266 mg/dL (65-115); Magnesium 1.6 mg/dL (1.7-2.3); Osmolality Calculated 295 mOsm/kg (285-295); Sodium 137 mmol/L (136-145); Total Bilirubin 0.9 mg/dL (0.15-1.2); Total Protein 6.5 g/dL (6.6-8.7)
[2023-07-08 07:41] LABS: Glucose Point of Care 301 mg/dL (70-110)
[2023-07-08] MEDS: phosphorus 250 mg Tablet PO (07:56)
[2023-07-08] MEDS: lisinopril 20 mg Tablet 40 MG PO (07:56)
[2023-07-08] MEDS: levETIRAcetam 500 mg Tablet 1500 MG PO (07:56)
[2023-07-08] MEDS: clopidogrel 75 mg Tablet PO (07:56)
[2023-07-08] MEDS: levothyroxine 150 mcg Tablet PO (07:56)
[2023-07-08] MEDS: aspirin 81 mg Chew Tablet PO (07:56)
[2023-07-08] MEDS: insulin lispro 100 unit/1 mL SUBCUT (07:57)
[2023-07-08] MEDS: magnesium sulfate premix 2 GM/50 ML PIGGYBACK IV (09:08)
--- NOTE | 2023-07-08 11:01 | PC.NURSE ---
Discharge Note Patient discharged to [home] via [ambulation] accompanied by [RN]. Discharge instructions reviewed with patient and/or entry level sales representative. Mobile pharmacy medications and/or prescriptions provided. Belongings/home medications returned. Pt sitting outside in front of the hospital waiting on a taxi.
--- NOTE | 2023-07-08 13:37 | PM.DCS ---
Discharge Providers Date of Admission: 07/07/23 03:07 Date of Discharge: July 08, 2023 Attending Provider at Admission: Luis E Gaxiola DO Attending Provider at Discharge: Teri Beckham MD Primary Care Provider: BUD Head Diagnoses at Discharge Discharge Diagnosis (1) Coronary artery disease: Status: Acute Qualifiers: Associated angina: with unspecified angina Coronary Disease-Associated Artery/Lesion type: [place] artery [place] vs. 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 Hemoglobin A1c elevated. This Is Insulin-Dependent on DKA Protocol. Phosphorus Was Low Which Was Also Repleted. He Was Started on Lantus at Discharge until Follow-Up Appointment with Endocrinology. Discussed with Endocrinology at Discharge and They Will See Patient in Office to Follow-Up. Patient Provided Diabetic Education and Shown Her Usual Insulin Pen. All Questions Answered. Patient Will Be Discharged Home in Stable Condition. Glipizide. At discharge metformin was ordered as 1000 daily as 500 twice a day. He was also given a prescription for blood glucose testing strips, monitor and lancets. This documentation was created by [employer] core winder software. Every effort was made to ensure accuracy of core winder. Any obvious errors or omissions should be clarified with the author of the document. Physical Exam Narrative: No acute distress, no conversational dyspnea Abdomen non tender to palpation in all 4 quadrants, no guarding or rebound tenderness present Bowel sounds present all 4 quadrants Lungs clear to auscultation bilaterally no wheezes no rhonchi No edema bilateral lower extremities Normal S1-S2 no apparent gross murmurs identified. Discharge Data Studies Completed and Pending Completed Studies During Hospitalization Category Date Time Status CT abdomen pelvis wo con [id number] Stat Cat Scan 07/06/23 23:31 Completed XR KUB portable [id number] Routine Exams 07/07/23 15:04 Completed Radiology Impressions Abdomen/Pelvis CT 07/06/23 23:31 IMPRESSION: 1. Mildly prominent fluid in the small bowel without dilation may reflect an enteritis. 2. Spleen enlarged to 16 cm. 3. Coronary artery atherosclerotic calcifications. 4. Cirrhotic liver. 5. Small amount of perihepatic ascites. 6. Scattered varices in the abdomen reflective of portal venous hypertension. 7. Cholecystectomy. 8. [id number] constipation. KUB X-Ray 07/07/23 15:04 IMPRESSION: Large amount of colonic stool. Laboratory Results WBC 7.17 10^3/uL (3.29-11.43) 07/08/23 03:53 RBC 4.18 10^6/uL (3.85-5.65) 07/08/23 03:53 Hgb 12.90 g/dL (11.27-16.99) 07/08/23 03:53 Hct 37.9 % (37-53) 07/08/23 03:53 MCV 90.7 fl (82-101) 07/08/23 03:53 MCH 30.9 pg (27-33) 07/08/23 03:53 MCHC 34.0 g/dL (30-55) 07/08/23 03:53 RDW 14.0 % (12.1-15.1) 07/08/23 03:53 Plt Count 75 10^3/cmm (157-399) L 07/08/23 03:53 MPV 10.7 fL (7.4-10.4) H 07/08/23 03:53 Neut % (Auto) 79.1 % 07/08/23 03:53 Lymph % (Auto) 11.2 % 07/08/23 03:53 [place] % (Auto) 7.3 % 07/08/23 03:53 Eos % (Auto) 1.3 % 07/08/23 03:53 Baso % (Auto) 0.4 % 07/08/23 03:53 Neut # (Auto) 5.68 10^3/uL (1.8-7.7) 07/08/23 03:53 Lymph # (Auto) 0.8 10^3/uL (0.8-4.8) 07/08/23 03:53 [place] # (Auto) 0.5 10^3/uL (0.2-0.9) 07/08/23 03:53 Eos # (Auto) 0.1 10^3/uL (0.0-0.8) 07/08/23 03:53 Baso # (Auto) 0.0 10^3/uL (0.0-0.1) 07/08/23 03:53 Nucleated RBC % (auto) 0 % 07/08/23 03:53 Nucleated RBCs # 0.0 /100WBC 07/08/23 03:53 Specimen Type Arterial 07/07/23 00:41 Sample Site Brachial, right 07/07/23 00:41 ABG pH 7.36 (7.35-7.45) 07/07/23 00:41 ABG pCO2 42.2 mmHg (35-45) 07/07/23 00:41 ABG pO2 70.6 mmHg (80.0-100.0) L 07/07/23 00:41 ABG HCO3 23.8 mmol/L (22-26) 07/07/23 00:41 ABG Base Excess -1.7 mmol/L (-2.0-2.0) 07/07/23 00:41 Willem Test N/a 07/07/23 00:41 Hematocrit 41.8 % (42-52) L 07/07/23 00:41 O2 Delivery Device Room air 07/07/23 00:41 Water Softener Installer ID [email or web address] 07/07/23 00:41 Sodium 137 mmol/L (136-145) 07/08/23 03:53 Potassium 4.0 mmol/L (3.5-5.1) 07/08/23 03:53 Chloride 104 mmol/L (98-107) 07/08/23 03:53 Carbon Dioxide 24 mmol/L (22-29) 07/08/23 03:53 Anion Gap 13.0 (5-19) 07/08/23 03:53 BUN 18 mg/dL (6-20) 07/08/23 03:53 Creatinine 1.1 mg/dL (0.7-1.2) 07/08/23 03:53 GFR Calculation 69.2 mL/min (90-130) L 07/08/23 03:53 Glucose 266 mg/dL (65-115) H 07/08/23 03:53 POC Glucose 301 mg/dL (70-110) H 07/08/23 07:35 Estimat Average Glucose 278 07/07/23 Unknown Hemoglobin A1c 11.3 % (4.0-6.0) H 07/07/23 Unknown Calculated Osmolality 295 mOsm/kg (285-295) 07/08/23 03:53 Calcium 8.4 mg/dL (8.5-10.5) L 07/08/23 03:53 Phosphorus 1.8 mg/dL (2.5-4.5) L 07/07/23 12:15 Magnesium 1.6 mg/dL (1.7-2.3) L 07/08/23 03:53 Total Bilirubin 0.9 mg/dL (0.15-1.2) 07/08/23 03:53 AST 46 U/L (0-40) H 07/08/23 03:53 ALT 37 U/L (0-41) 07/08/23 03:53 Alkaline Phosphatase 129 U/L (40-130) 07/08/23 03:53 Total Protein 6.5 g/dL (6.6-8.7) L 07/08/23 03:53 Albumin 3.2 g/dL (3.5-5.2) L 07/08/23 03:53 Globulin 3.3 g/dL (1.3-4.6) 07/08/23 03:53 Lipase 138 U/L (13-60) H 07/06/23 23:30 Urine Color Colorless (Yellow) 07/06/23 23:34 Urine Appearance Clear (CLEAR) 07/06/23 23:34 Urine pH 6.5 (5-7) 07/06/23 23:34 Ur Specific [place] 1.010 (1.005-1.030) 07/06/23 23:34 Urine Protein Neg (Negative) 07/06/23 23:34 Urine Glucose (UA) 4+ (Normal) H 07/06/23 23:34 Urine Ketones Negative (Negative) 07/06/23 23:34 Urine Blood Neg (Negative) 07/06/23 23:34 Urine Nitrate Negative (Negative) 07/06/23 23:34 Urine Bilirubin Neg (Negative) 07/06/23 23:34 Urine Urobilinogen Norm mg/dL (Negative) 07/06/23 23:34 Ur Leukocyte Esterase Negative (Negative) 07/06/23 23:34 Serum Ketones Negative (Negative) 07/07/23 00:30 Vitals Last Vital Signs Temp 98.0 F 07/07/23 16:00 Pulse 76 07/08/23 10:00 Resp 28 H 07/08/23 10:00 BP 120/87 07/08/23 11:04 Pulse Ox 98 07/08/23 10:00 O2 Del Method Room Air 07/08/23 06:00 Discharge Plan Discharge Patient Disposition: Home Condition: Stable Prescriptions: New metformin 500 mg tablet 500 mg PO BID Qty: 60 0RF (DME) Blood Glucose Monitoring Kit See Rx Instructions .Route Qty: 1 0RF Rx Instructions: As directed (DME) lancets Misc See Rx Instructions .Route Qty: 200 0RF Rx Instructions: As directed (DME) Blood Glucose Test Strip See Rx Instructions .Route Qty: 50 0RF Rx Instructions: As directed Continued allopurinol 100 mg tablet 100 mg PO DAILY PRN (Reason: GOUT) nitroglycerin 0.4 mg tablet, sublingual 0.4 mg SUBLINGUAL Q5M PRN (Reason: chest pain) 30 Days Qty: 30 3RF Rx Instructions: until response; do not exceed 3 doses per episode (DME) Fast Form Ulnar Gutter See Rx Instructions .Route .MEDSUPPLY Qty: 1 0RF Rx Instructions: As directed Plavix 75 mg tablet 75 mg PO DAILY@0700 Qty: 90 3RF Rx Instructions: last filled jan 2022 aspirin 81 mg tablet,chewable 81 mg PO DAILY@0700 Qty: 90 3RF levetiracetam 750 mg tablet 1,500 mg PO DAILY diclofenac sodium [Voltaren Arthritis Pain] 1 % gel 4 g topical QID PRN (Reason: Pain) hydrocodone-acetaminophen 5-325 mg tablet 1 tab PO Q8H PRN (Reason: Pain) levothyroxine 150 mcg Tablet 150 mcg PO DAILY lisinopril 40 mg Tablet 40 mg PO DAILY Tylenol Arthritis Pain 650 mg tablet extended release 1,300 mg PO Q8H PRN (Reason: pain) metoprolol tartrate 25 mg tablet 50 mg PO DAILY methocarbamol 750 mg tablet 750 mg PO TID PRN (Reason: back pain) Qty: 15 0RF Discontinued glipizide 5 mg tablet 5 mg PO DAILY@0700 metformin 1,000 mg Tablet 2,000 mg PO DAILY prednisone 20 mg tablet See Rx Instructions .ROUTE .COMPLEX Rx Instructions: 60 mg X 3 days 40 mg X 2 days 20 mg X 2 days (rx filled 07/03/23) No Action insulin glargine 100 unit/mL solution 25 unit SUBCUT DAILY 30 Days Qty: 15 1RF (DME) OneTouch Ultra Test Strip See Rx Instructions .Route Qty: 100 1RF Rx Instructions: As directed patient has one touch ultra 2 glucometer (DME) Dexcom G7 Sensor Device See Rx Instructions .Route Qty: 3 1RF Rx Instructions: As directed (DME) Dexcom G7 E Learning Coordinator Misc See Rx Instructions .Route Qty: 1 0RF Rx Instructions: As directed Discharge Orders: Discharge Order (Routine); Ordered 07/08/23 Ordered By: Teri Beckham Referrals: Dorita Flaherty FNP [Primary Care Provider] - 07/15/23 2:40 pm Jono Barcenas MD [Physician] - 07/14/23 8:45 am Discharge Diet: Diabetic Discharge Activity: Resume usual activity Patient Instructions: Diabetes and Diet, Metformin (By mouth), Insulin Glargine (By injection) (Lantus, Lantus SoloStar, Toujeo, Semglee), Hypoglycemia in a Person with Diabetes (DC), Basic Carbohydrate Counting (DC), Diabetes and Nutrition (DC), Diabetes and Exercise (DC), Opioid Safety Discharge Attestations Time Spent in Discharge Care*: greater than 30 min Quality Metrics Clinical Quality Measures [ No reported AMI, CVA or VTE this stay] Coding Level of Care Code Acute Code for Chg Fwd Diagnoses Coronary artery disease involving [place] coronary artery of [place] heart with angina pectoris I25.119 Associated angina: with unspecified angina Coronary Disease-Associated Artery/Lesion type: [place] artery [place] vs. transplanted heart: [place] heart Type 2 diabetes mellitus with hyperglycemia, without long-term current use of insulin E11.65 Diabetes mellitus complication status: with hyperglycemia Diabetes mellitus cur[employer] insulin use: without curator natural history [employer] use Glucose intolerance E74.39 Hyperglycemia without ketosis R73.9 Hyponatremia with increased serum osmolality E87.0; E87.1 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 K74.60 Fatty infiltration of liver K76.0 Splenomegaly R16.1 Smoker F17.200
== END 2023-07-08 10:55 | disposition home or self-care (01) | DRG 638 ==
LOC: ER 07-07 02:28 → ICU 07-07 03:29
PROVIDERS: Nurse Practitioner Family; Admitting Provider Internal Medicine; Emergency Provider Emergency Medicine; PCP Nurse Practitioner Family; Visit Provider Internal Medicine
DX: E11.00 Type 2 diabetes mellitus with hyperosmolarity without nonketotic hyperglycemic-hyperosmolar coma (NKHHC) (principal); E87.1 Hypo-osmolality and hyponatremia; N17.9 Acute kidney failure, unspecified; K76.6 Portal hypertension; Z79.84 Long term (current) use of oral hypoglycemic drugs; I25.10 Atherosclerotic heart disease of native coronary artery without angina pectoris; Z95.5 Presence of coronary angioplasty implant and graft; K74.60 Unspecified cirrhosis of liver; K76.0 Fatty (change of) liver, not elsewhere classified; R16.1 Splenomegaly, not elsewhere classified; Z72.0 Tobacco use; E87.6 Hypokalemia; E83.39 Other disorders of phosphorus metabolism; Z90.49 Acquired absence of other specified parts of digestive tract; F11.21 Opioid dependence, in remission; E03.9 Hypothyroidism, unspecified; I10 Essential (primary) hypertension; G40.909 Epilepsy, unspecified, not intractable, without status epilepticus; Z79.82 Long term (current) use of aspirin; Z79.02 Long term (current) use of antithrombotics/antiplatelets; E66.9 Obesity, unspecified; Z68.30 Body mass index [BMI] 30.0-30.9, adult
CPT/HCPCS: 36415; 36416; 36600; 74018; 74176; 80048; 80053; 81003; 82009; 82803; 82947; 82962; 83036; 83690; 83735; 84100; 85025; 96365; 96367; 96372; 96375; 96376; 99285; J1644; J1815; J2270; J2405; J2543; J3475; J7030; J7050

== ENCOUNTER → 2023-07-14 08:37 | Outpatient (BNVA) | payer MEDICAID, SELFPAY | PROVIDERS: PCP Nurse Practitioner Family; Visit Provider Internal Medicine | DX: E03.8 Other specified hypothyroidism (principal); E06.3 Autoimmune thyroiditis; R63.5 Abnormal weight gain; E11.65 Type 2 diabetes mellitus with hyperglycemia; Z79.4 Long term (current) use of insulin; Z79.84 Long term (current) use of oral hypoglycemic drugs; Z79.890 Hormone replacement therapy; Z68.30 Body mass index [BMI] 30.0-30.9, adult | CPT/HCPCS: 36415; 84439; 84443; 99214 ==

== ENCOUNTER 2023-07-23 21:45 | Emergency (ER) | payer MEDICAID, SELFPAY ==
[2023-07-23 21:47] VITALS: BP 156/91; PULSE 92; RESP 18; TEMP 36.6; O2SAT 99; BMI 31.5
--- NOTE | 2023-07-23 21:48 | ED_ITS ---
HPI - General Adult 2 General: Chief complaint: General Medical Stated complaint: high blood sugar Time Seen by Provider: 07/23/23 21:48 History of Present Illness: 58-year-old male patient comes in today with elevated blood glucose. Patient Dexcom reader only reported high. EMS noted that the glucose check that they did was 550. IV was started and patient was given saline. Patient appears nontoxic. Patient denies any pain or discomfort. Patient at this time uses 25 of Lantus daily and 1000 g of metformin twice daily. Patient is a chronic cigarette smoker. Patient was admitted last month for BRISA secondary to elevated blood glucose in the thousands. Patient appears nontoxic. Patient appears in no pain. Review of Systems 2 General: Reports: 10 or more systems reviewed and unremarkable except in HPI and below PFSH ED 2 PFSH: Medical History Acute kidney injury Coronary artery disease Chronic low back pain Dyslipidemia Benign essential hypertension with target blood pressure below 140/90 Type 2 diabetes mellitus Atypical chest pain Epilepsy Obesity Glucose intolerance Smoker Hypothyroidism Surgical History H/O heart artery stent 07/11/2020-Cardiac stent placement mid LAD H/O umbilical hernia repair History of appendectomy Family History Father , at age 74 Family history of premature coronary artery disease Had a myocardial infarction in his 40s. Diabetes CAD (coronary artery disease) Chronic kidney disease (CKD) Stroke Brother Family history of premature coronary artery disease CAD (coronary artery disease) Had LA in the 50s Diabetes Stroke Grandmother CAD (coronary artery disease) Diabetes Grandfather CAD (coronary artery disease) Mother , at age 84 CAD (coronary artery disease) Cancer Diabetes COVID-19 Family/Other Lung disease Denies family history of Clotting disorder Dementia Suicide Anesthesia complication Bleeding disorder Social History Smoking and tobacco/nicotine status: current every day tobacco/nicotine user Alcohol intake: current Alcohol intake frequency: holidays/special occasions only Substance/Drug Use: never Household members: spouse Housing: House Marital status: Current occupational status: disabled Physical Exam 2 Const: COMMON NORMALS: alert HENMT: COMMON NORMALS: normocephalic HEAD & SCALP: normocephalic Neck/C-Spine: COMMON NORMALS: full ROM Resp: COMMON NORMALS: normal respiratory effort and clear to auscultation bilaterally AUSCULTATION: clear to auscultation bilaterally Cardio: COMMON NORMALS: regular rate and regular rhythm RATE: regular rate RHYTHM: regular rhythm GI: COMMON NORMALS: Soft to palpation and non-tender PALPATION: Yes Soft to palpation Extremity: COMMON NORMALS: normal to inspection and no pedal edema Neuro: SENSORIUM/ORIENTATION: Yes alert Skin: COMMON NORMALS: turgor normal GENERAL SKIN EXAM: turgor normal Course 2 Vital Signs: Vital signs: Vital Signs Temperature 97.9 F 07/23/23 21:47 Pulse Rate 95 07/23/23 22:06 Respiratory Rate 18 07/23/23 21:47 Blood Pressure 143/88 07/23/23 22:06 Pulse Oximetry 97 07/23/23 22:06 Oxygen Delivery Me thod Room Air 07/23/23 21:47 [facility] - General Adult Medical Decision Making 58-year-old male patient comes in today for elevated blood glucose. On exam patient appears nontoxic. Patient denies any pain or fever. Abdomen soft nontender. Skin is warm and dry. Lungs clear to auscultation. No edema is noted. Differential diagnosis includes but not limited to DKA, hyperglycemia, BRISA, dehydration, hypokalemia. CBC was unremarkable. CMP showed a sodium 135, potassium 3.7, creatinine 1.2, glucose 628. Serum ketones was negative. Patient was given 1 L of IV fluids and 10 units of insulin IV. This brought glucose down to 424. Patient was then discharged home with recommendations to continue routine care and follow-up with primary care tomorrow to discuss additional Lantus to be given today to get better control of blood glucose. Patient reported understanding. Lab Data 07/23/23 21:22 07/23/23 21: Laboratory Results WBC 6.53 10^3/uL (3.29-11.43) 07/23/23 21: RBC 4.58 10^6/uL (3.85-5.65) 07/23/23 21: Hgb 14.60 g/dL (11.27-16.99) 07/23/23 21: Hct 41.9 % (37-53) 07/23/23 21:22 MCV 91.5 fl (82-101) 07/23/23 21:22 MCH 31.9 pg (27-33) 07/23/23 21: MCHC 34.8 g/dL (30-55) 07/23/23 21:22 RDW 13.2 % (12.1-15.1) 07/23/23 21:22 Plt Count 94 10^3/cmm (157-399) L 07/23/23 21:22 MPV 10.8 fL (7.4-10.4) H 07/23/23 21:22 Neut % (Auto) 74.7 % 07/23/23 21: Lymph % (Auto) 11.9 % 07/23/23 21: [place] % (Auto) 8.7 % 07/23/23 21: Eos % (Auto) 2.5 % 07/23/23 21:22 Baso % (Auto) 1.1 % 07/23/23 21:22 Neut # (Auto) 4.88 10^3/uL (1.8-7.7) 07/23/23 21: Lymph # (Auto) 0.8 10^3/uL (0.8-4.8) 07/23/23 21:22 [place] # (Auto) 0.6 10^3/uL (0.2-0.9) 07/23/23 21:22 Eos # (Auto) 0.2 10^3/uL (0.0-0.8) 07/23/23 21:22 Baso # (Auto) 0.1 10^3/uL (0.0-0.1) 07/23/23 21: Nucleated RBC % (auto) 0 % 07/23/23 21: Nucleated RBCs # 0.0 /100WBC 07/23/23 21:22 Sodium 135 mmol/L (136-145) L 07/23/23 21:22 Potassium 3.7 mmol/L (3.5-5.1) 07/23/23 21:22 Chloride 96 mmol/L (98-107) L 07/23/23 21:22 Carbon Dioxide 25 mmol/L (22-29) 07/23/23 21:22 Anion Gap 17.7 (5-19) 03/13/24 21:22 BUN 20 mg/dL (6-20) 07/23/23 21:22 Creatinine 1.2 mg/dL (0.7-1.2) 07/23/23 21:22 GFR Calculation 62.6 mL/min (90-130) L 07/23/23 21:22 Glucose 628 mg/dL (65-115) H* 07/23/23 21:22 POC Glucose 424 mg/dL (70-110) H 07/23/23 23:47 Calculated Osmolality 312 mOsm/kg (285-295) H 07/23/23 21:22 Calcium 8.9 mg/dL (8.5-10.5) 07/23/23 21:22 Total Bilirubin 1.1 mg/dL (0.15-1.2) 07/23/23 21:22 AST 52 U/L (0-40) H 07/23/23 21:22 ALT 43 U/L (0-41) H 07/23/23 21:22 Alkaline Phosphatase 239 U/L (40-130) H 07/23/23 21:22 Total Protein 8.1 g/dL (6.6-8.7) 07/23/23 21:22 Albumin 4.1 g/dL (3.5-5.2) 07/23/23 21:22 Globulin 4.0 g/dL (1.3-4.6) 07/23/23 21:22 Serum Ketones Negative (Negative) 07/23/23 21:22 No radiology studies performed this visit Discharge Plan Discharge Patient Disposition: Home Clinical Impression: Hyperglycemia due to type 2 diabetes mellitus Qualifiers: Diabetes mellitus mcfp insulin use: unspecified mcfp insulin use status Qualified Code(s): E11.65 - Type 2 diabetes mellitus with hyperglycemia Condition: Stable Prescriptions: No Action allopurinol 100 mg tablet 100 mg PO DAILY PRN (Reason: GOUT) nitroglycerin 0.4 mg tablet, sublingual 0.4 mg SUBLINGUAL Q5M PRN (Reason: chest pain) 30 Days Qty: 30 3RF Rx Instructions: until response; do not exceed 3 doses per episode (DME) Fast Form Ulnar Gutter See Rx Instructions .Route .MEDSUPPLY Qty: 1 0RF Rx Instructions: As directed insulin glargine 100 unit/mL solution 25 unit SUBCUT DAILY 30 Days Qty: 15 1RF (DME) OneTouch Ultra Test Strip See Rx Instructions .Route Qty: 100 1RF Rx Instructions: As directed patient has one touch ultra 2 glucometer (DME) Dexcom G7 Sensor Device See Rx Instructions .Route Qty: 3 1RF Rx Instructions: As directed (DME) Dexcom G7 Security Incident Response Specialist Misc See Rx Instructions .Route Qty: 1 0RF Rx Instructions: As directed Plavix 75 mg tablet 75 mg PO DAILY@0700 Qty: 90 3RF Rx Instructions: last filled jan 2022 aspirin 81 mg tablet,chewable 81 mg PO DAILY@0700 Qty: 90 3RF levetiracetam 750 mg tablet 1,500 mg PO DAILY diclofenac sodium [Voltaren Arthritis Pain] 1 % gel 4 g topical QID PRN (Reason: Pain) hydrocodone-acetaminophen 5-325 mg tablet 1 tab PO Q8H PRN (Reason: Pain) levothyroxine 150 mcg Tablet 150 mcg PO DAILY lisinopril 40 mg Tablet 40 mg PO DAILY Tylenol Arthritis Pain 650 mg tablet extended release 1,300 mg PO Q8H PRN (Reason: pain) metoprolol tartrate 25 mg tablet 50 mg PO DAILY metformin 500 mg tablet 500 mg PO BID Qty: 60 0RF (DME) Blood Glucose Monitoring Kit See Rx Instructions .Route Qty: 1 0RF Rx Instructions: As directed (DME) lancets Misc See Rx Instructions .Route Qty: 200 0RF Rx Instructions: As directed (DME) Blood Glucose Test Strip See Rx Instructions .Route Qty: 50 0RF Rx Instructions: As directed methocarbamol 750 mg tablet 750 mg PO TID PRN (Reason: back pain) Qty: 15 0RF Discharge Orders: Discharge ED (Routine); Ordered 07/23/23 Ordered By: Alexis Brian Referrals: Dorita Flaherty FNP [Primary Care Provider] - Discharge Diet: Usual diet Discharge Activity: Increase activity as tolerated Patient Instructions: Diabetic Hyperglycemia (ED) Activity Restrictions/Additional Instructions: Continue medications as directed. Follow-up with primary care and talk further with them about changes for your insulin. Return to ED for new concerns or worsening symptoms. Coding Level of Care Code ED Apartment Maintenance Technician for Marva Bunn
[2023-07-23] MEDS: insulin regular-human 100 units/1 mL 10 UNIT IVP (22:01)
[2023-07-23] MEDS: sodium chloride 0.9% 1,000 ML 999 ML IV (22:01)
[2023-07-23 22:02] LABS: Basophils # 0.1 10^3/uL (0.0-0.1); Basophils % 1.1 %; Eosinophils # 0.2 10^3/uL (0.0-0.8); Eosinophils % 2.5 %; Hematocrit 41.9 % (37-53); Lymphocytes # 0.8 10^3/uL (0.8-4.8); Lymphocytes % 11.9 %; Mean Corpuscular HGB Conc 34.8 g/dL (30-55); Mean Corpuscular Hemoglobin 31.9 pg (27-33); Mean Corpuscular Volume 91.5 fl (82-101); Mean Platelet Volume 10.8 fL (7.4-10.4); Monocytes # 0.6 10^3/uL (0.2-0.9); Monocytes % 8.7 %; Neutrophils # 4.88 10^3/uL (1.8-7.7); Neutrophils % 74.7 %; Nucleated Red Blood Cells % 0 %; Platelet Count 94 10^3/cmm (157-399); Red Blood Count 4.58 10^6/uL (3.85-5.65); Red Cell Distribution Width 13.2 % (12.1-15.1); White Blood Count 6.53 10^3/uL (3.29-11.43)
[2023-07-23 22:06] VITALS: BP 143/88; PULSE 95; O2SAT 97
[2023-07-23 22:19] LABS: Ketone (Acetest) Serum Negative (Negative)
[2023-07-23 22:53] LABS: Alanine Aminotransferase 43 U/L (0-41); Albumin Level 4.1 g/dL (3.5-5.2); Alkaline Phosphatase 239 U/L (40-130); Aspartate Amino Transferase 52 U/L (0-40); Blood Urea Nitrogen 20 mg/dL (6-20); Calcium 8.9 mg/dL (8.5-10.5); Carbon Dioxide 25 mmol/L (22-29); Chloride 96 mmol/L (98-107); Creatinine Clr Calc Pharmacy 81.3906; Glomerular Filtration Rate 62.6 mL/min (90-130); Osmolality Calculated 312 mOsm/kg (285-295); Sodium 135 mmol/L (136-145); Total Bilirubin 1.1 mg/dL (0.15-1.2); Total Protein 8.1 g/dL (6.6-8.7)
[2023-07-23 22:56] LABS: Anion Gap 17.7 (5-19); Potassium 3.7 mmol/L (3.5-5.1)
[2023-07-23 22:57] LABS: Glucose 628 mg/dL (65-115)
[2023-07-23] MEDS: HYDROcodone-acetaminophen 5-325 mg Tablet 1 TAB PO (23:32)
[2023-07-23 23:50] LABS: Glucose Point of Care 424 mg/dL (70-110)
--- NOTE | 2023-07-24 00:19 | PC.NURSE ---
Spoke with Guardian on phone, regarding patient's discharge status. She had no questions or concerns; stated that he would need a medicaid ride home, as how he usually gets home.
== END 2023-07-24 00:27 | disposition home or self-care (01) ==
PROVIDERS: Emergency Provider Nurse Practitioner Family; PCP Nurse Practitioner Family
DX: E11.65 Type 2 diabetes mellitus with hyperglycemia (principal); Z79.02 Long term (current) use of antithrombotics/antiplatelets; Z79.82 Long term (current) use of aspirin; Z79.4 Long term (current) use of insulin; Z79.84 Long term (current) use of oral hypoglycemic drugs; Z72.0 Tobacco use; I25.10 Atherosclerotic heart disease of native coronary artery without angina pectoris; E78.5 Hyperlipidemia, unspecified; I10 Essential (primary) hypertension
CPT/HCPCS: 36416; 80053; 82009; 82962; 85025; 96361; 96374; 99284; J1815; J7030

== ENCOUNTER → 2023-08-06 10:53 | Outpatient (BNVA) | payer MEDICAID, SELFPAY | PROVIDERS: PCP Nurse Practitioner Family; Visit Provider Internal Medicine | DX: E03.8 Other specified hypothyroidism (principal); E06.3 Autoimmune thyroiditis; R63.5 Abnormal weight gain; E11.65 Type 2 diabetes mellitus with hyperglycemia; Z68.30 Body mass index [BMI] 30.0-30.9, adult; Z79.84 Long term (current) use of oral hypoglycemic drugs; Z79.890 Hormone replacement therapy; Z79.4 Long term (current) use of insulin | CPT/HCPCS: 99214 ==

== ENCOUNTER 2023-09-25 12:29 | Emergency (ER) | payer MEDICAID, SELFPAY ==
[2023-09-25 12:59] VITALS: BP 142/90; PULSE 74; RESP 18; TEMP 36.7; O2SAT 97
--- NOTE | 2023-09-25 13:13 | W.ED.SKABFB ---
HPI - Skin/Abscess/Foreign Bdy General: Chief complaint: Skin/Abscess/Foreign Body Stated complaint: scratched by dog on right arm Time Seen by Provider: 09/25/23 13:11 History of Present Illness: 58-year-old male patient comes in today with some scratches on his right arm that occurred yesterday evening when a large dog jumped up on him. Patient has 4 noticeable linear abrasions to the right forearm. Patient appears nontoxic. Patient appears in no acute distress. Patient cannot recall last tetanus. Review of Systems General: Reports: 10 or more systems reviewed and unremarkable except in HPI and below PFSH ED PFSH: Medical History Acute kidney injury Coronary artery disease Chronic low back pain Dyslipidemia Benign essential hypertension with target blood pressure below 140/90 Type 2 diabetes mellitus Atypical chest pain Epilepsy Obesity Glucose intolerance Smoker Hypothyroidism Surgical History H/O heart artery stent 07/11/2020-Cardiac stent placement mid LAD H/O umbilical hernia repair History of appendectomy Family History Father , at age 74 Family history of premature coronary artery disease Had a myocardial infarction in his 40s. Diabetes CAD (coronary artery disease) Chronic kidney disease (CKD) Stroke Brother Family history of premature coronary artery disease CAD (coronary artery disease) Had MS in the 50s Diabetes Stroke Grandmother CAD (coronary artery disease) Diabetes Grandfather CAD (coronary artery disease) Mother , at age 84 CAD (coronary artery disease) Cancer Diabetes COVID-19 Family/Other Lung disease Denies family history of Clotting disorder Dementia Suicide Anesthesia complication Bleeding disorder Social History Smoking and tobacco/nicotine status: current every day tobacco/nicotine user Alcohol intake: current Alcohol intake frequency: holidays/special occasions only Substance/Drug Use: never Household members: spouse Housing: House Marital status: Current occupational status: disabled Physical Exam Const: COMMON NORMALS: alert HENMT: COMMON NORMALS: normocephalic HEAD & SCALP: normocephalic Neck/C-Spine: COMMON NORMALS: full ROM Resp: COMMON NORMALS: normal respiratory effort Cardio: COMMON NORMALS: regular rate RATE: regular rate GI: COMMON NORMALS: non-tender Back/Pelvis: COMMON NORMALS: thoracic and lumbar spine normal to inspection Extremity: RIGHT UPPER EXTREMITY: Yes lower arm (Abrasions noted to the right lower arm) Right lower arm: Yes inspection Neuro: SENSORIUM/ORIENTATION: Yes alert Skin: TRAUMA: abrasion (4 linear abrasions right lower arm) Course Vital Signs: Vital signs: Vital Signs Temperature 98.1 F 09/25/23 12:59 Pulse Rate 74 09/25/23 12:59 Respiratory Rate 18 09/25/23 12:59 Blood Pressure 142/90 09/25/23 12:59 Pulse Oximetry 97 09/25/23 12:59 Oxygen Delivery Me thod Room Air 09/25/23 12:59 MDM - Skin/Abscess/Foreign Bdy Medicial Decision Making 58-year-old male patient comes in today for complaints of injuries to the right lower arm. On exam patient appears nontoxic. Patient has some linear abrasions to the right lower arm. Normal range of motion. Normal neurovascular. Differential diagnosis includes not limited to abrasion, need for prophylaxis antibiotic, need for prophylaxis tetanus, foreign body. No signs of foreign body is noted. Patient's tetanus shot was updated. Patient be placed on Augmentin twice a day for the next 7 days. Patient was also recommended to use bacitracin ointment to the wounds until healed. Patient reports understanding and agreed to plan. No radiology studies performed this visit Discharge Plan Discharge Patient Disposition: Home Clinical Impression: Abrasion forearm Qualifiers: Encounter type: initial encounter Laterality: right Qualified Code(s): S50.811A - Abrasion of right forearm, initial encounter Condition: Stable Prescriptions: New amoxicillin-pot clavulanate 875-125 mg tablet 1 tab PO BID Qty: 14 0RF bacitracin 500 unit/gram ointment 1 applic topical DAILY Qty: 14 0RF No Action allopurinol 100 mg tablet 100 mg PO DAILY PRN (Reason: GOUT) (DME) Fast Form Ulnar Gutter See Rx Instructions .Route .MEDSUPPLY Qty: 1 0RF Rx Instructions: As directed insulin glargine 100 unit/mL solution 25 unit SUBCUT DAILY 30 Days Qty: 15 1RF (DME) OneTouch Ultra Test Strip See Rx Instructions .Route Qty: 100 1RF Rx Instructions: As directed patient has one touch ultra 2 glucometer (DME) Dexcom G7 Server Support Technician [facility] See Rx Instructions .Route Qty: 1 0RF Rx Instructions: As directed levothyroxine 150 mcg tablet See Rx Instructions .ROUTE .COMPLEX Qty: 30 0RF Dose Instruction: TAKE 1 CAPSULE BY MOUTH DAILY Rx Instructions: TAKE 1 CAPSULE BY MOUTH DAILY Plavix 75 mg tablet 75 mg PO DAILY@0700 Qty: 90 3RF Rx Instructions: last filled jan 2022 lisinopril 40 mg tablet 40 mg PO DAILY Qty: 90 3RF metoprolol tartrate 25 mg tablet 50 mg PO DAILY Qty: 90 6RF nitroglycerin 0.4 mg tablet, sublingual 0.4 mg SUBLINGUAL Q5M PRN (Reason: chest pain) 30 Days Qty: 30 3RF Rx Instructions: until response; do not exceed 3 doses per episode rosuvastatin 10 mg tablet 10 mg PO DAILY Qty: 90 1RF aspirin 81 mg tablet,chewable 81 mg PO DAILY@0700 Qty: 90 3RF metformin 500 mg tablet 500 mg PO BID Qty: 60 1RF (DME) Dexcom G7 Sensor Device See Rx Instructions .Route Qty: 3 1RF Rx Instructions: As directed levetiracetam 750 mg tablet 1,500 mg PO DAILY diclofenac sodium [Voltaren Arthritis Pain] 1 % gel 4 g topical QID PRN (Reason: Pain) hydrocodone-acetaminophen 5-325 mg tablet 1 tab PO Q8H PRN (Reason: Pain) Tylenol Arthritis Pain 650 mg tablet extended release 1,300 mg PO Q8H PRN (Reason: pain) (DME) Blood Glucose Monitoring Kit See Rx Instructions .Route Qty: 1 0RF Rx Instructions: As directed (DME) lancets Misc See Rx Instructions .Route Qty: 200 0RF Rx Instructions: As directed (DME) Blood Glucose Test Strip See Rx Instructions .Route Qty: 50 0RF Rx Instructions: As directed methocarbamol 750 mg tablet 750 mg PO TID PRN (Reason: back pain) Qty: 15 0RF Discharge Orders: Discharge ED (Routine); Ordered 09/25/23 Ordered By: Alexis Brian Referrals: Dorita Flaherty FNP [Primary Care Provider] - Discharge Diet: Usual diet Discharge Activity: Increase activity as tolerated Patient Instructions: Abrasion (ED) Activity Restrictions/Additional Instructions: Clean wound gently with mild soap and water. Apply antibiotic ointment and cover with nonstick dressing. Take oral antibiotic as directed twice a day for 7 days. Follow-up with primary care for further instructions. Return to ED for new concerns. Coding Level of Care Code ED Production Posting Clerk for Marva Bunn
[2023-09-25] MEDS: tetanus-dipt-pertussis 0.5 mL SDV IM (13:33)
[2023-09-25] MEDS: bacitracin ointment Pkt 1 EACH TOPICAL (13:36)
[2023-09-25 13:46] VITALS: BP 143/87; PULSE 69; RESP 17; O2SAT 96
== END 2023-09-25 13:49 | disposition home or self-care (01) ==
PROVIDERS: Emergency Provider Nurse Practitioner Family; PCP Nurse Practitioner Family
DX: S50.811A Abrasion of right forearm, initial encounter (principal); Z23 Encounter for immunization; E11.9 Type 2 diabetes mellitus without complications; E03.9 Hypothyroidism, unspecified; I10 Essential (primary) hypertension; Z79.4 Long term (current) use of insulin; F17.200 Nicotine dependence, unspecified, uncomplicated; Z79.890 Hormone replacement therapy; Z79.899 Other long term (current) drug therapy; W54.1XXA Struck by dog, initial encounter
CPT/HCPCS: 90471; 90715; 99283

== ENCOUNTER 2023-09-29 20:12 | Emergency (ER) | payer MEDICAID, SELFPAY ==
[2023-09-29 20:13] VITALS: BP 137/87; PULSE 77; RESP 16; TEMP 36.6; O2SAT 98; BMI 31.7
--- NOTE | 2023-09-29 20:23 | ECG_ITS ---
[facility] Test Date: 2023-09-29 Pat Name: Alonso Golden Department: Room: Gender: Male Digital Community Manager: : 1965 Requested By: Tila Pierson Order Number: [id number] Isabel Leroy MD: Sujata Flores M.D. Measurements Intervals [place] Rate: 72 P: 16 [place]: 161 QRS: -21 QRSD: 86 T: 101 QT: 392 QTc: 430 Interpretive Statements SINUS RHYTHM BORDERLINE LEFT AXIS DEVIATION [QRS AXIS < -20] MINIMAL VOLTAGE CRITERIA FOR LVH, CONSIDER NORMAL VARIANT [MEETS CRITERIA IN ONE OF: R(aVL), S(V1), R(V5), R(V5/V6)+S(V1)] NONSPECIFIC T-WAVE ABNORMALITY Compared to ECG 04/20/2023 12:06:33 No significant changes Electronically Signed On 10-01-2023 0:17:50 CDT by Sujata Flores M.D. [id number]
--- NOTE | 2023-09-29 20:23 | W.ED.GENADLT ---
HPI - General Adult General: Chief complaint: General Medical Stated complaint: High BP Time Seen by Provider: 09/29/23 20:20 History of Present Illness: 58-year-old male with history of coronary artery disease status post stents and hypertension who presents the emergency room with hypertension. He said he checked his blood pressure and it was in the 170s over around 110. He called his nurse and they told him to come to the emergency room to get checked out: . He says he did not want to argue with the nurse so he came in to get checked out. Blood pressure on presentation here is normal. He is 137/87 with a pulse of 77 and no distress. He had no chest pain. No headaches. No altered mental status. No focal motor deficits. Review of Systems Narrative: Constitutional symptoms: Negative except as documented in HPI. Skin symptoms: Negative except as documented in HPI. Eye symptoms: Negative except as documented in HPI. ENMT symptoms: Negative except as documented in HPI. Respiratory symptoms: Negative except as documented in HPI. Cardiovascular symptoms: Negative except as documented in HPI. Gastrointestinal symptoms: Negative except as documented in HPI. Genitourinary symptoms: Negative except as documented in HPI. Musculoskeletal symptoms: Negative except as documented in HPI. Neurologic symptoms: Negative except as documented in HPI. Psychiatric symptoms: Negative except as documented in HPI. Endocrine symptoms: Negative except as documented in HPI. PFSH ED PFSH: Medical History Acute kidney injury Coronary artery disease Chronic low back pain Dyslipidemia Benign essential hypertension with target blood pressure below 140/90 Type 2 diabetes mellitus Atypical chest pain Epilepsy Obesity Glucose intolerance Smoker Hypothyroidism Surgical History H/O heart artery stent 07/11/2020-Cardiac stent placement mid LAD H/O umbilical hernia repair History of appendectomy Family History Father , at age 74 Family history of premature coronary artery disease Had a myocardial infarction in his 40s. Diabetes CAD (coronary artery disease) Chronic kidney disease (CKD) Stroke Brother Family history of premature coronary artery disease CAD (coronary artery disease) Had [place] in the 50s Diabetes Stroke Grandmother CAD (coronary artery disease) Diabetes Grandfather CAD (coronary artery disease) Mother , at age 84 CAD (coronary artery disease) Cancer Diabetes COVID-19 Family/Other Lung disease Denies family history of Clotting disorder Dementia Suicide Anesthesia complication Bleeding disorder Social History Smoking and tobacco/nicotine status: current every day tobacco/nicotine user Alcohol intake: current Alcohol intake frequency: holidays/special occasions only Substance/Drug Use: never Household members: spouse Housing: House Marital status: Current occupational status: disabled Physical Exam Narrative: EXAM NARRATIVE: General: Alert, no acute distress. Skin: Warm, dry. Head: Normocephalic, atraumatic. Neck: Supple, trachea midline. Eye: Extraocular movements are intact. Ears, nose, mouth and throat: mucosa moist. Cardiovascular: Regular, Normal peripheral perfusion. Respiratory: Lungs are clear to auscultation, respirations are non-labored, breath sounds are equal, Symmetrical chest wall expansion. Gastrointestinal: Soft, Nontender, Non distended, Normal bowel sounds. Musculoskeletal: Normal ROM, no deformity. Neurological: Alert and oriented, No focal neurological deficit observed. Psychiatric: Cooperative, appropriate mood & affect. Course Vital Signs: Vital signs: Vital Signs Temperature 97.9 F 09/29/23 20:13 Pulse Rate 71 09/29/23 20:38 Respiratory Rate 16 09/29/23 20:38 Blood Pressure 130/79 09/29/23 20:38 Pulse Oximetry 95 09/29/23 20:38 Oxygen Delivery Me thod Room Air 09/29/23 20:38 MDM - General Adult Medical Decision Making Patient is normotensive here and has had no symptoms. His exam is normal. His heart sounds good. No focal motor deficits. An EKG is being performed. I do not see any reason to do any acute lab work today. EKG: Time 2044 rate 72 normal sinus rhythm, No ST-T changes, no ectopy, normal OK & QRS intervals, This was reviewed and interpreted by myself the ER physician at 2047 Assessment and plan: Hypertension - Discharged home - Discussed plan with patient. Answered any questions. - Evaluation and treatment of this problem were appropriate in the emergency setting. No radiology studies performed this visit Discharge Plan Discharge Patient Disposition: Home Clinical Impression: Hypertension Condition: Stable Prescriptions: No Action allopurinol 100 mg tablet 100 mg PO DAILY PRN (Reason: GOUT) (DME) Fast Form Ulnar Gutter See Rx Instructions .Route .MEDSUPPLY Qty: 1 0RF Rx Instructions: As directed insulin glargine 100 unit/mL solution 25 unit SUBCUT DAILY 30 Days Qty: 15 1RF (DME) OneTouch Ultra Test Strip See Rx Instructions .Route Qty: 100 1RF Rx Instructions: As directed patient has one touch ultra 2 glucometer (DME) Dexcom G7 Human Resources Trainee Misc See Rx Instructions .Route Qty: 1 0RF Rx Instructions: As directed levothyroxine 150 mcg tablet See Rx Instructions .ROUTE .COMPLEX Qty: 30 0RF Dose Instruction: TAKE 1 CAPSULE BY MOUTH DAILY Rx Instructions: TAKE 1 CAPSULE BY MOUTH DAILY Plavix 75 mg tablet 75 mg PO DAILY@0700 Qty: 90 3RF Rx Instructions: last filled jan 2022 lisinopril 40 mg tablet 40 mg PO DAILY Qty: 90 3RF metoprolol tartrate 25 mg tablet 50 mg PO DAILY Qty: 90 6RF nitroglycerin 0.4 mg tablet, sublingual 0.4 mg SUBLINGUAL Q5M PRN (Reason: chest pain) 30 Days Qty: 30 3RF Rx Instructions: until response; do not exceed 3 doses per episode rosuvastatin 10 mg tablet 10 mg PO DAILY Qty: 90 1RF aspirin 81 mg tablet,chewable 81 mg PO DAILY@0700 Qty: 90 3RF metformin 500 mg tablet 500 mg PO BID Qty: 60 1RF ([facility]) Dexcom G7 Sensor Device See Rx Instructions .Route Qty: 3 1RF Rx Instructions: As directed levetiracetam 750 mg tablet 1,500 mg PO DAILY diclofenac sodium [Voltaren Arthritis Pain] 1 % gel 4 g topical QID PRN (Reason: Pain) hydrocodone-acetaminophen 5-325 mg tablet 1 tab PO Q8H PRN (Reason: Pain) Tylenol Arthritis Pain 650 mg tablet extended release 1,300 mg PO Q8H PRN (Reason: pain) ([facility]) Blood Glucose Monitoring Kit See Rx Instructions .Route Qty: 1 0RF Rx Instructions: As directed ([facility]) lancets Misc See Rx Instructions .Route Qty: 200 0RF Rx Instructions: As directed ([facility]) Blood Glucose Test Strip See Rx Instructions .Route Qty: 50 0RF Rx Instructions: As directed amoxicillin-pot clavulanate 875-125 mg tablet 1 tab PO BID Qty: 14 0RF bacitracin 500 unit/gram ointment 1 applic topical DAILY Qty: 14 0RF methocarbamol 750 mg tablet 750 mg PO TID PRN (Reason: back pain) Qty: 15 0RF Discharge Orders: Discharge ED (Routine); Ordered 09/29/23 Ordered By: Tila Chavez Referrals: Dorita Flaherty FNP [Primary Care Provider] - 1-3 days Discharge Diet: Usual diet Discharge Activity: Resume usual activity Patient Instructions: Hypertension Activity Restrictions/Additional Instructions: Thank you for choosing [facility] for your healthcare needs today. Please realize this is an emergency room and that we are providing you with a medical screening exam and this may not be complete and all inclusive of all the testing and or work up that you may need to determine your ailment or severity of your illness. You have been screened and evaluated and felt safe for discharge. Health conditions do change or evolve sometimes and as such it is important that you follow up with your Primary Doctor to be re checked, 3-5 days is a general good time frame for follow up. You are always welcome to return to the ED for re assessment if your symptoms are worsening or you have new concerns Coding Level of Care Code ED Procurement Clerk for Marva Bunn
[2023-09-29 20:38] VITALS: BP 130/79; PULSE 71; RESP 16; O2SAT 95
[2023-09-29 20:57] VITALS: PULSE 70; O2SAT 96
== END 2023-09-29 21:01 | disposition home or self-care (01) ==
PROVIDERS: Emergency Provider Emergency Medicine; PCP Nurse Practitioner Family
DX: I10 Essential (primary) hypertension (principal); Z79.82 Long term (current) use of aspirin; Z79.02 Long term (current) use of antithrombotics/antiplatelets; Z79.84 Long term (current) use of oral hypoglycemic drugs; Z79.4 Long term (current) use of insulin; Z72.0 Tobacco use; I25.10 Atherosclerotic heart disease of native coronary artery without angina pectoris; E78.5 Hyperlipidemia, unspecified; E11.9 Type 2 diabetes mellitus without complications
CPT/HCPCS: 93005; 99283

== ENCOUNTER 2023-10-13 20:43 | Emergency (ER) | payer MEDICAID, SELFPAY ==
[2023-10-13] VITALS (7 sets, daily range): BP systolic 155; BP diastolic 95; PULSE 67–78; RESP 16–18; TEMP 36.7; O2SAT 90–98
[2023-10-13 21:19] LABS: Basophils # 0.1 10^3/uL (0.0-0.1); Basophils % 0.8 %; Eosinophils # 0.3 10^3/uL (0.0-0.8); Eosinophils % 4.2 %; Hematocrit 40.4 % (37-53); Lymphocytes # 0.9 10^3/uL (0.8-4.8); Lymphocytes % 14.1 %; Mean Corpuscular HGB Conc 34.4 g/dL (30-55); Mean Corpuscular Hemoglobin 30.7 pg (27-33); Mean Corpuscular Volume 89.2 fl (82-101); Mean Platelet Volume 10.1 fL (7.4-10.4); Monocytes # 0.6 10^3/uL (0.2-0.9); Monocytes % 9.5 %; Neutrophils # 4.41 10^3/uL (1.8-7.7); Neutrophils % 70.9 %; Nucleated Red Blood Cells % 0 %; Platelet Count 119 10^3/cmm (157-399); Red Blood Count 4.53 10^6/uL (3.85-5.65); Red Cell Distribution Width 13.2 % (12.1-15.1); White Blood Count 6.22 10^3/uL (3.29-11.43)
[2023-10-13 21:36] LABS: Alanine Aminotransferase 22 U/L (0-41); Albumin Level 3.9 g/dL (3.5-5.2); Alkaline Phosphatase 150 U/L (40-130); Anion Gap 12.8 (5-19); Aspartate Amino Transferase 36 U/L (0-40); Blood Urea Nitrogen 13 mg/dL (6-20); Calcium 8.7 mg/dL (8.5-10.5); Carbon Dioxide 26 mmol/L (22-29); Chloride 100 mmol/L (98-107); Globulin 3.7 g/dL (1.3-4.6); Glomerular Filtration Rate 77.3 mL/min (90-130); Glucose 309 mg/dL (65-115); Lipase 272 U/L (13-60); Osmolality Calculated 292 mOsm/kg (285-295); Potassium 3.8 mmol/L (3.5-5.1); Sodium 135 mmol/L (136-145); Total Bilirubin 1.2 mg/dL (0.15-1.2); Total Protein 7.6 g/dL (6.6-8.7)
--- NOTE | 2023-10-13 21:39 | ED_ITS ---
<Statement entered by Barber Kirk DO - 10/14/23 08:32> I was asked by the a.m. charge nurse to review CT scan. Apparently the patient had left AGAINST MEDICAL ADVICE last evening. I reviewed the CT findings. Chart states the patient has had chronic similar pain for some time. The patient does not have any acute process per his CT scan but certainly needs close follow-up. I advised nurse to call patient states he should see his primary care doctor within the next week to 10 days and should return to the emergency department should he have any worsening symptoms fever nausea vomiting etc. Documented by User: AURELIO Neri 10/13/23 21:41 HPI - Abdominal Pain 2 General: Chief Complaint: Abdominal Pain Stated Complaint: back pain Time Seen by Provider: 10/13/23 21:12 Source: patient Mode of arrival: EMS Limitations: no limitations History of Present Illness: Patient is a 58-year-old male presenting to the emergency department via ambulance for back pain and right lower quadrant abdominal pain. States this has been chronic, and is just acutely worsening. He does have history of appendectomy, denying any fever, nausea, vomiting, chills, urinary changes, or any other symptoms. He has multiple ED visits in the past, with unremarkable workups in regards to his pain. He has not taken anything for his pain. Does not report any specific alleviating or exacerbating factors. MD elicited complaint: other (Back pain) Onset (ago): day(s) Pain Consistency: intermittent Severity: mild Exacerbating factors: nothing Relieving factors: nothing Associated Symptoms: Reports no associated symptoms; Denies bloating, change in stool character, chills, constipation, diarrhea, dysuria, fever(s), hematochezia, nausea and vomiting Review of Systems 2 General: Reports: 10 or more systems reviewed and unremarkable except in HPI and below Const: Denies: fever(s), chills, change in appetite, change in weight or diaphoresis ENMT: Denies: throat pain or hoarseness Card: Denies: chest pain, palpitations or lightheadedness Resp: Denies: dyspnea, productive cough or wheezing GI: Reports: abdominal pain; Denies: nausea, vomiting, diarrhea, constipation, bloating, change in stool character or hematochezia : Denies: flank pain, difficulty urinating, dysuria, urinary frequency or urinary urgency Musc: Reports: back pain; Denies: neck pain Skin/Breast: Denies: rash or new lesions Neuro: Denies: headache(s) or dizziness PFSH ED 2 PFSH: Medical History Acute kidney injury Coronary artery disease Chronic low back pain Dyslipidemia Benign essential hypertension with target blood pressure below 140/90 Type 2 diabetes mellitus Atypical chest pain Epilepsy Obesity Glucose intolerance Smoker Hypothyroidism Surgical History H/O heart artery stent 07/11/2020-Cardiac stent placement mid LAD H/O umbilical hernia repair History of appendectomy Family History Father , at age 74 Family history of premature coronary artery disease Had a myocardial infarction in his 40s. Diabetes CAD (coronary artery disease) Chronic kidney disease (CKD) Stroke Brother Family history of premature coronary artery disease CAD (coronary artery disease) Had DE in the 50s Diabetes Stroke Grandmother CAD (coronary artery disease) Diabetes Grandfather CAD (coronary artery disease) Mother , at age 84 CAD (coronary artery disease) Cancer Diabetes COVID-19 Family/Other Lung disease Denies family history of Clotting disorder Dementia Suicide Anesthesia complication Bleeding disorder Social History Smoking and tobacco/nicotine status: current every day tobacco/nicotine user Alcohol intake: current Alcohol intake frequency: holidays/special occasions only Substance/Drug Use: never Household members: spouse Housing: House Marital status: Current occupational status: disabled Physical Exam 2 Const: COMMON NORMALS: no acute distress, average body habitus, patient oriented x3, no limitations, healthy appearing, alert and well nourished G ENERAL APPEARANCE: cooperative and comfortable ORIENTATION/CONSCIOUSNESS: Yes awake HENMT: COMMON NORMALS: normocephalic, atraumatic, hearing grossly normal bilaterally, external ears normal, Normal external nose present, Normal nasal mucous membranes and turbinates present and moist oral mucous membranes HEAD & SCALP: normocephalic and atraumatic NOSE: Normal external nose present and Normal nasal mucous membranes and turbinates present EXTERNAL EAR: Yes external ears normal Eye: COMMON NORMALS: Equal, round and reactive pupils present, EOMs intact bilaterally, conjunctivae normal and normal visual mar by confrontation C ONJUNCTIVA: Yes conjunctivae normal PUPIL: Yes Equal, round and reactive pupils present Neck/C-Spine: COMMON NORMALS: full ROM, supple, no meningeal signs and no JVD Resp: COMMON NORMALS: normal respiratory effort, No retractions, No use of accessory muscles and clear to auscultation bilaterally AUSCULTATION: clear to auscultation bilaterally, no crackles, no rales, no rhonchi and no wheezes Cardio: COMMON NORMALS: no JVD, regular rate, regular rhythm, S1 normal heart sound present, S2 normal heart sound present, No gallops present (Cardio), No clicks present (Cardio), No murmurs present (Cardio), No rub (Cardio) and Peripheral pulses 2+ throughout RATE: regular rate RHYTHM: regular rhythm HEART SOUNDS: S1 normal heart sound present and S2 normal heart sound present PERIPHERAL PULSES: Peripheral pulses 2+ throughout GI: COMMON NORMALS: Normal to inspection, nondistended, normoactive bowel sounds present, Soft to palpation, non-tender, No hepatosplenomegaly present and no masses AUSCULTATION: Yes normoactive bowel sounds PALPATION: Yes Soft to palpation, No Guarding due to palpation present (GI), No Rigid due to palpation and Yes No hepatosplenomegaly present RECTAL EXAM: Yes deferred : COMMON NORMALS: Yes no CVA tenderness BLADDER/KIDNEY EXAM: Yes no CVA tenderness Back/Pelvis: COMMON NORMALS: no CVA tenderness Extremity: COMMON NORMALS: normal to inspection and full ROM Neuro: COMMON NORMALS: patient oriented x3, moves all extremities, no focal motor deficits and no sensory deficits noted SENSORIUM/ORIENTATION: Yes alert MENINGEAL SIGNS: Yes no meningeal signs Psych: COMMON NORMALS: mental status grossly normal, cooperative and speech normal SPEECH: Yes normal speech Skin: COMMON NORMALS: no rashes or lesions noted GENERAL SKIN EXAM: no rashes or lesions noted Course 2 Vital Signs: Vital signs: Vital Signs Temperature 98.0 F 10/13/23 20:46 Pulse Rate 72 10/14/23 00:00 Respiratory Rate 16 10/13/23 22:50 Blood Pressure 155/95 10/13/23 20:46 Pulse Oximetry 94 10/14/23 00:00 Oxygen Delivery Me thod Room Air 10/14/23 00:00 MDM - Abdominal Pain Lab Data 10/13/23 21:07 10/13/23 21:07 Labs/Radiology: Radiology Impressions Abdomen/Pelvis CT 10/13/23 21:44 IMPRESSION: 1. Overt cirrhosis with at least mild progressive ascites and clear evidence of extensive portal hypertension including splenomegaly, varices, etc. Diffuse fluid third-spacing. 2. No small bowel obstruction, abscess or free air. Mild diffuse large and small bowel wall thickening is probably due to mural edema. 3. Other chronic/incidental findings above. Laboratory Results WBC 6.22 10^3/uL (3.29-11.43) 10/13/23 21:07 RBC 4.53 10^6/uL (3.85-5.65) 10/13/23 21:07 Hgb 13.90 g/dL (11.27-16.99) 10/13/23 21:07 Hct 40.4 % (37-53) 10/13/23 21:07 MCV 89.2 fl (82-101) 10/13/23 21:07 MCH 30.7 pg (27-33) 10/13/23 21:07 MCHC 34.4 g/dL (30-55) 10/13/23 21:07 RDW 13.2 % (12.1-15.1) 10/13/23 21:07 Plt Count 119 10^3/cmm (157-399) L 10/13/23 21:07 MPV 10.1 fL (7.4-10.4) 10/13/23 21:07 Neut % (Auto) 70.9 % 10/13/23 21:07 Lymph % (Auto) 14.1 % 10/13/23 21:07 [place] % (Auto) 9.5 % 10/13/23 21:07 Eos % (Auto) 4.2 % 10/13/23 21:07 Baso % (Auto) 0.8 % 10/13/23 21:07 Neut # (Auto) 4.41 10^3/uL (1.8-7.7) 10/13/23 21:07 Lymph # (Auto) 0.9 10^3/uL (0.8-4.8) 10/13/23 21:07 [place] # (Auto) 0.6 10^3/uL (0.2-0.9) 10/13/23 21:07 Eos # (Auto) 0.3 10^3/uL (0.0-0.8) 10/13/23 21:07 Baso # (Auto) 0.1 10^3/uL (0.0-0.1) 10/13/23 21:07 Nucleated RBC % (auto) 0 % 10/13/23 21:07 Nucleated RBCs # 0.0 /100WBC 10/13/23 21:07 Sodium 135 mmol/L (136-145) L 10/13/23 21:07 Potassium 3.8 mmol/L (3.5-5.1) 10/13/23 21:07 Chloride 100 mmol/L (98-107) 10/13/23 21:07 Carbon Dioxide 26 mmol/L (22-29) 10/13/23 21:07 Anion Gap 12.8 (5-19) 10/13/23 21:07 BUN 13 mg/dL (6-20) 10/13/23 21:07 Creatinine 1.0 mg/dL (0.7-1.2) 10/13/23 21:07 GFR Calculation 77.3 mL/min (90-130) L 10/13/23 21:07 Glucose 309 mg/dL (65-115) H 10/13/23 21:07 Calculated Osmolality 292 mOsm/kg (285-295) 10/13/23 21:07 Calcium 8.7 mg/dL (8.5-10.5) 10/13/23 21:07 Total Bilirubin 1.2 mg/dL (0.15-1.2) 10/13/23 21:07 AST 36 U/L (0-40) 10/13/23 21:07 ALT 22 U/L (0-41) 10/13/23 21:07 Alkaline Phosphatase 150 U/L (40-130) H 10/13/23 21:07 Total Protein 7.6 g/dL (6.6-8.7) 10/13/23 21:07 Albumin 3.9 g/dL (3.5-5.2) 10/13/23 21:07 Globulin 3.7 g/dL (1.3-4.6) 10/13/23 21:07 Lipase 272 U/L (13-60) H 10/13/23 21:07 Urine Color Dark yellow (Yellow) 10/13/23 23:19 Urine Appearance Clear (CLEAR) 10/13/23 23:19 Urine pH 5 (5-7) 10/13/23 23:19 Ur Specific [place] 1.010 (1.005-1.030) 10/13/23 23:19 Urine Protein Trace (Negative) 10/13/23 23:19 Urine Glucose (UA) 4+ (Normal) H 10/13/23 23:19 Urine Ketones Negative (Negative) 10/13/23 23:19 Urine Blood Neg (Negative) 10/13/23 23:19 Urine Nitrate Negative (Negative) 10/13/23 23:19 Urine Bilirubin Neg (Negative) 10/13/23 23:19 Urine Urobilinogen 1 mg/dL (Negative) H 10/13/23 23:19 Ur Leukocyte Esterase Negative (Negative) 10/13/23 23:19 Urine RBC 0-4 /hpf (0-2) H 10/13/23 23:19 Urine WBC 0-4 /hpf (0-5) H 10/13/23 23:19 Ur Squamous Epith Cells None /hpf (0-5) 10/13/23 23:19 Amorphous Sediment Not Reportable 10/13/23 23:19 Urine Bacteria None /hpf (NONE) 10/13/23 23:19 Discharge Plan Discharge Patient Disposition: Left Against Medical Advice Clinical Impression: Abdominal pain Condition: Stable Prescriptions: No Action allopurinol 100 mg tablet 100 mg PO DAILY PRN (Reason: GOUT) (DME) Fast Form Ulnar Gutter See Rx Instructions .Route .MEDSUPPLY Qty: 1 0RF Rx Instructions: As directed insulin glargine 100 unit/mL solution 25 unit SUBCUT DAILY 30 Days Qty: 15 1RF (DME) OneTouch Ultra Test Strip See Rx Instructions .Route Qty: 100 1RF Rx Instructions: As directed patient has one touch ultra 2 glucometer ([facility] [place] Dexcom G7 Assistant News Director Misc See Rx Instructions .Route Qty: 1 0RF Rx Instructions: As directed levothyroxine 150 mcg tablet See Rx Instructions .ROUTE .COMPLEX Qty: 30 0RF Dose Instruction: TAKE 1 CAPSULE BY MOUTH DAILY Rx Instructions: TAKE 1 CAPSULE BY MOUTH DAILY Plavix 75 mg tablet 75 mg PO DAILY@0700 Qty: 90 3RF Rx Instructions: last filled jan 2022 lisinopril 40 mg tablet 40 mg PO DAILY Qty: 90 3RF metoprolol tartrate 25 mg tablet 50 mg PO DAILY Qty: 90 6RF nitroglycerin 0.4 mg tablet, sublingual 0.4 mg SUBLINGUAL Q5M PRN (Reason: chest pain) 30 Days Qty: 30 3RF Rx Instructions: until response; do not exceed 3 doses per episode rosuvastatin 10 mg tablet 10 mg PO DAILY Qty: 90 1RF aspirin 81 mg tablet,chewable 81 mg PO DAILY@0700 Qty: 90 3RF (DME) Dexcom G7 Sensor Device See Rx Instructions .Route Qty: 3 1RF Rx Instructions: As directed metformin 500 mg tablet 500 mg PO BID Qty: 60 1RF levetiracetam 750 mg tablet 1,500 mg PO DAILY diclofenac sodium [Voltaren Arthritis Pain] 1 % gel 4 g topical QID PRN (Reason: Pain) hydrocodone-acetaminophen 5-325 mg tablet 1 tab PO Q8H PRN (Reason: Pain) Tylenol Arthritis Pain 650 mg tablet extended release 1,300 mg PO Q8H PRN (Reason: pain) (DME) Blood Glucose Monitoring Kit See Rx Instructions .Route Qty: 1 0RF Rx Instructions: As directed (DME) lancets Misc See Rx Instructions .Route Qty: 200 0RF Rx Instructions: As directed (DME) Blood Glucose Test Strip See Rx Instructions .Route Qty: 50 0RF Rx Instructions: As directed amoxicillin-pot clavulanate 875-125 mg tablet 1 tab PO BID Qty: 14 0RF bacitracin 500 unit/gram ointment 1 applic topical DAILY Qty: 14 0RF methocarbamol 750 mg tablet 750 mg PO TID PRN (Reason: back pain) Qty: 15 0RF Referrals: Dorita Flaherty FNP [Primary Care Provider] - Patient Instructions: Abdominal Pain (ED) Coding Level of Care Code 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[employer] Documented by User: Tila Chavez MD 10/14/23 01:41 HPI - Abdominal Pain 2 General: Chief Complaint: Abdominal Pain Stated Complaint: back pain Time Seen by Provider: 10/13/23 21:12 PFSH ED 2 PFSH: Medical History Acute kidney injury Coronary artery disease Chronic low back pain Dyslipidemia Benign essential hypertension with target blood pressure below 140/90 Type 2 diabetes mellitus Atypical chest pain Epilepsy Obesity Glucose intolerance Smoker Hypothyroidism Surgical History H/O heart artery stent 07/11/2020-Cardiac stent placement mid LAD H/O umbilical hernia repair History of appendectomy Family History Father , at age 74 Family history of premature coronary artery disease Had a myocardial infarction in his 40s. Diabetes CAD (coronary artery disease) Chronic kidney disease (CKD) Stroke Brother Family history of premature coronary artery disease CAD (coronary artery disease) Had DE in the 50s Diabetes Stroke Grandmother CAD (coronary artery disease) Diabetes Grandfather CAD (coronary artery disease) Mother , at age 84 CAD (coronary artery disease) Cancer Diabetes COVID-19 Family/Other Lung disease Denies family history of Clotting disorder Dementia Suicide Anesthesia complication Bleeding disorder Social History Smoking and tobacco/nicotine status: current every day tobacco/nicotine user Alcohol intake: current Alcohol intake frequency: holidays/special occasions only Substance/Drug Use: never Household members: spouse Housing: House Marital status: Current occupational status: disabled Course 2 Vital Signs: Vital signs: Vital Signs Temperature 98.0 F 10/13/23 20:46 Pulse Rate 72 10/14/23 00:00 Respiratory Rate 16 10/13/23 22:50 Blood Pressure 155/95 10/13/23 20:46 Pulse Oximetry 94 10/14/23 00:00 Oxygen Delivery Me thod Room Air 10/14/23 00:00 MDM - Abdominal Pain Medical Decision Making Patient was checked out to me for CT read results. Apparently the patient decided that he did not want to wait for this and must of been feeling better because he decided to leave AGAINST MEDICAL ADVICE. Lab Data 10/13/23 21:07 10/13/23 21:07 Labs/Radiology: Radiology Impressions Abdomen/Pelvis CT 10/13/23 21:44 IMPRESSION: 1. Overt cirrhosis with at least mild progressive ascites and clear evidence of extensive portal hypertension including splenomegaly, varices, etc. Diffuse fluid third-spacing. 2. No small bowel obstruction, abscess or free air. Mild diffuse large and small bowel wall thickening is probably due to mural edema. 3. Other chronic/incidental findings above. Laboratory Results WBC 6.22 10^3/uL (3.29-11.43) 10/13/23 21:07 RBC 4.53 10^6/uL (3.85-5.65) 10/13/23 21:07 Hgb 13.90 g/dL (11.27-16.99) 10/13/23 21:07 Hct 40.4 % (37-53) 10/13/23 21:07 MCV 89.2 fl (82-101) 10/13/23 21:07 MCH 30.7 pg (27-33) 10/13/23 21:07 MCHC 34.4 g/dL (30-55) 10/13/23 21:07 RDW 13.2 % (12.1-15.1) 10/13/23 21:07 Plt Count 119 10^3/cmm (157-399) L 10/13/23 21:07 MPV 10.1 fL (7.4-10.4) 10/13/23 21:07 Neut % (Auto) 70.9 % 10/13/23 21:07 Lymph % (Auto) 14.1 % 10/13/23 21:07 [place] % (Auto) 9.5 % 10/13/23 21:07 Eos % (Auto) 4.2 % 10/13/23 21:07 Baso % (Auto) 0.8 % 10/13/23 21:07 Neut # (Auto) 4.41 10^3/uL (1.8-7.7) 10/13/23 21:07 Lymph # (Auto) 0.9 10^3/uL (0.8-4.8) 10/13/23 21:07 [place] # (Auto) 0.6 10^3/uL (0.2-0.9) 10/13/23 21:07 Eos # (Auto) 0.3 10^3/uL (0.0-0.8) 10/13/23 21:07 Baso # (Auto) 0.1 10^3/uL (0.0-0.1) 10/13/23 21:07 Nucleated RBC % (auto) 0 % 10/13/23 21:07 Nucleated RBCs # 0.0 /100WBC 10/13/23 21:07 Sodium 135 mmol/L (136-145) L 10/13/23 21:07 Potassium 3.8 mmol/L (3.5-5.1) 10/13/23 21:07 Chloride 100 mmol/L (98-107) 10/13/23 21:07 Carbon Dioxide 26 mmol/L (22-29) 10/13/23 21:07 Anion Gap 12.8 (5-19) 10/13/23 21:07 BUN 13 mg/dL (6-20) 10/13/23 21:07 Creatinine 1.0 mg/dL (0.7-1.2) 10/13/23 21:07 GFR Calculation 77.3 mL/min (90-130) L 10/13/23 21:07 Glucose 309 mg/dL (65-115) H 10/13/23 21:07 Calculated Osmolality 292 mOsm/kg (285-295) 10/13/23 21:07 Calcium 8.7 mg/dL (8.5-10.5) 10/13/23 21:07 Total Bilirubin 1.2 mg/dL (0.15-1.2) 10/13/23 21:07 AST 36 U/L (0-40) 10/13/23 21:07 ALT 22 U/L (0-41) 10/13/23 21:07 Alkaline Phosphatase 150 U/L (40-130) H 10/13/23 21:07 Total Protein 7.6 g/dL (6.6-8.7) 10/13/23 21:07 Albumin 3.9 g/dL (3.5-5.2) 10/13/23 21:07 Globulin 3.7 g/dL (1.3-4.6) 10/13/23 21:07 Lipase 272 U/L (13-60) H 10/13/23 21:07 Urine Color Dark yellow (Yellow) 10/13/23 23:19 Urine Appearance Clear (CLEAR) 10/13/23 23:19 Urine pH 5 (5-7) 10/13/23 23:19 Ur Specific [place] 1.010 (1.005-1.030) 10/13/23 23:19 Urine Protein Trace (Negative) 10/13/23 23:19 Urine Glucose (UA) 4+ (Normal) H 10/13/23 23:19 Urine Ketones Negative (Negative) 10/13/23 23:19 Urine Blood Neg (Negative) 10/13/23 23:19 Urine Nitrate Negative (Negative) 10/13/23 23:19 Urine Bilirubin Neg (Negative) 10/13/23 23:19 Urine Urobilinogen 1 mg/dL (Negative) H 10/13/23 23:19 Ur Leukocyte Esterase Negative (Negative) 10/13/23 23:19 Urine RBC 0-4 /hpf (0-2) H 10/13/23 23:19 Urine WBC 0-4 /hpf (0-5) H 10/13/23 23:19 Ur Squamous Epith Cells None /hpf (0-5) 10/13/23 23:19 Amorphous Sediment Not Reportable 10/13/23 23:19 Urine Bacteria None /hpf (NONE) 10/13/23 23:19 Discharge Plan Discharge Patient Disposition: Left Against Medical Advice Clinical Impression: Abdominal pain Condition: Stable Prescriptions: No Action allopurinol 100 mg tablet 100 mg PO DAILY PRN (Reason: GOUT) (DME) Fast Form Ulnar Gutter See Rx Instructions .Route .MEDSUPPLY Qty: 1 0RF Rx Instructions: As directed insulin glargine 100 unit/mL solution 25 unit SUBCUT DAILY 30 Days Qty: 15 1RF (DME) OneTouch Ultra Test Strip See Rx Instructions .Route Qty: 100 1RF Rx Instructions: As directed patient has one touch ultra 2 glucometer ([facility] [place] Dexcom G7 Assistant News Director Misc See Rx Instructions .Route Qty: 1 0RF Rx Instructions: As directed levothyroxine 150 mcg tablet See Rx Instructions .ROUTE .COMPLEX Qty: 30 0RF Dose Instruction: TAKE 1 CAPSULE BY MOUTH DAILY Rx Instructions: TAKE 1 CAPSULE BY MOUTH DAILY Plavix 75 mg tablet 75 mg PO DAILY@0700 Qty: 90 3RF Rx Instructions: last filled jan 2022 lisinopril 40 mg tablet 40 mg PO DAILY Qty: 90 3RF metoprolol tartrate 25 mg tablet 50 mg PO DAILY Qty: 90 6RF nitroglycerin 0.4 mg tablet, sublingual 0.4 mg SUBLINGUAL Q5M PRN (Reason: chest pain) 30 Days Qty: 30 3RF Rx Instructions: until response; do not exceed 3 doses per episode rosuvastatin 10 mg tablet 10 mg PO DAILY Qty: 90 1RF aspirin 81 mg tablet,chewable 81 mg PO DAILY@0700 Qty: 90 3RF (DME) Dexcom G7 Sensor Device See Rx Instructions .Route Qty: 3 1RF Rx Instructions: As directed metformin 500 mg tablet 500 mg PO BID Qty: 60 1RF levetiracetam 750 mg tablet 1,500 mg PO DAILY diclofenac sodium [Voltaren Arthritis Pain] 1 % gel 4 g topical QID PRN (Reason: Pain) hydrocodone-acetaminophen 5-325 mg tablet 1 tab PO Q8H PRN (Reason: Pain) Tylenol Arthritis Pain 650 mg tablet extended release 1,300 mg PO Q8H PRN (Reason: pain) (DME) Blood Glucose Monitoring Kit See Rx Instructions .Route Qty: 1 0RF Rx Instructions: As directed (DME) lancets Misc See Rx Instructions .Route Qty: 200 0RF Rx Instructions: As directed (DME) Blood Glucose Test Strip See Rx Instructions .Route Qty: 50 0RF Rx Instructions: As directed amoxicillin-pot clavulanate 875-125 mg tablet 1 tab PO BID Qty: 14 0RF bacitracin 500 unit/gram ointment 1 applic topical DAILY Qty: 14 0RF methocarbamol 750 mg tablet 750 mg PO TID PRN (Reason: back pain) Qty: 15 0RF Referrals: Dorita Flaherty FNP [Primary Care Provider] - Patient Instructions: Abdominal Pain (ED) Coding Level of Care Code 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 [employer] Documented by User: Barber Kirk DO 10/14/23 08:32 HPI - Abdominal Pain 2 General: Chief Complaint: Abdominal Pain Stated Complaint: back pain Time Seen by Provider: 10/13/23 21:12 PFSH ED 2 PFSH: Medical History Acute kidney injury Coronary artery disease Chronic low back pain Dyslipidemia Benign essential hypertension with target blood pressure below 140/90 Type 2 diabetes mellitus Atypical chest pain Epilepsy Obesity Glucose intolerance Smoker Hypothyroidism Surgical History H/O heart artery stent 07/11/2020-Cardiac stent placement mid LAD H/O umbilical hernia repair History of appendectomy Family History Father , at age 74 Family history of premature coronary artery disease Had a myocardial infarction in his 40s. Diabetes CAD (coronary artery disease) Chronic kidney disease (CKD) Stroke Brother Family history of premature coronary artery disease CAD (coronary artery disease) Had DE in the 50s Diabetes Stroke Grandmother CAD (coronary artery disease) Diabetes Grandfather CAD (coronary artery disease) Mother , at age 84 CAD (coronary artery disease) Cancer Diabetes COVID-19 Family/Other Lung disease Denies family history of Clotting disorder Dementia Suicide Anesthesia complication Bleeding disorder Social History Smoking and tobacco/nicotine status: current every day tobacco/nicotine user Alcohol intake: current Alcohol intake frequency: holidays/special occasions only Substance/Drug Use: never Household members: spouse Housing: House Marital status: Current occupational status: disabled Course 2 Vital Signs: Vital signs: Vital Signs Temperature 98.0 F 10/13/23 20:46 Pulse Rate 72 10/14/23 00:00 Respiratory Rate 16 10/13/23 22:50 Blood Pressure 155/95 10/13/23 20:46 Pulse Oximetry 94 10/14/23 00:00 Oxygen Delivery Me thod Room Air 10/14/23 00:00 MDM - Abdominal Pain Lab Data 10/13/23 21:07 10/13/23 21:07 Labs/Radiology: Radiology Impressions Abdomen/Pelvis CT 10/13/23 21:44 IMPRESSION: 1. Overt cirrhosis with at least mild progressive ascites and clear evidence of extensive portal hypertension including splenomegaly, varices, etc. Diffuse fluid third-spacing. 2. No small bowel obstruction, abscess or free air. Mild diffuse large and small bowel wall thickening is probably due to mural edema. 3. Other chronic/incidental findings above. Laboratory Results WBC 6.22 10^3/uL (3.29-11.43) 10/13/23 21:07 RBC 4.53 10^6/uL (3.85-5.65) 10/13/23 21:07 Hgb 13.90 g/dL (11.27-16.99) 10/13/23 21:07 Hct 40.4 % (37-53) 10/13/23 21:07 MCV 89.2 fl (82-101) 10/13/23 21:07 MCH 30.7 pg (27-33) 10/13/23 21:07 MCHC 34.4 g/dL (30-55) 10/13/23 21:07 RDW 13.2 % (12.1-15.1) 10/13/23 21:07 Plt Count 119 10^3/cmm (157-399) L 10/13/23 21:07 MPV 10.1 fL (7.4-10.4) 10/13/23 21:07 Neut % (Auto) 70.9 % 10/13/23 21:07 Lymph % (Auto) 14.1 % 10/13/23 21:07 [place] % (Auto) 9.5 % 10/13/23 21:07 Eos % (Auto) 4.2 % 10/13/23 21:07 Baso % (Auto) 0.8 % 10/13/23 21:07 Neut # (Auto) 4.41 10^3/uL (1.8-7.7) 10/13/23 21:07 Lymph # (Auto) 0.9 10^3/uL (0.8-4.8) 10/13/23 21:07 [place] # (Auto) 0.6 10^3/uL (0.2-0.9) 10/13/23 21:07 Eos # (Auto) 0.3 10^3/uL (0.0-0.8) 10/13/23 21:07 Baso # (Auto) 0.1 10^3/uL (0.0-0.1) 10/13/23 21:07 Nucleated RBC % (auto) 0 % 10/13/23 21:07 Nucleated RBCs # 0.0 /100WBC 10/13/23 21:07 Sodium 135 mmol/L (136-145) L 10/13/23 21:07 Potassium 3.8 mmol/L (3.5-5.1) 10/13/23 21:07 Chloride 100 mmol/L (98-107) 10/13/23 21:07 Carbon Dioxide 26 mmol/L (22-29) 10/13/23 21:07 Anion Gap 12.8 (5-19) 10/13/23 21:07 BUN 13 mg/dL (6-20) 10/13/23 21:07 Creatinine 1.0 mg/dL (0.7-1.2) 10/13/23 21:07 GFR Calculation 77.3 mL/min (90-130) L 10/13/23 21:07 Glucose 309 mg/dL (65-115) H 10/13/23 21:07 Calculated Osmolality 292 mOsm/kg (285-295) 10/13/23 21:07 Calcium 8.7 mg/dL (8.5-10.5) 10/13/23 21:07 Total Bilirubin 1.2 mg/dL (0.15-1.2) 10/13/23 21:07 AST 36 U/L (0-40) 10/13/23 21:07 ALT 22 U/L (0-41) 10/13/23 21:07 Alkaline Phosphatase 150 U/L (40-130) H 10/13/23 21:07 Total Protein 7.6 g/dL (6.6-8.7) 10/13/23 21:07 Albumin 3.9 g/dL (3.5-5.2) 10/13/23 21:07 Globulin 3.7 g/dL (1.3-4.6) 10/13/23 21:07 Lipase 272 U/L (13-60) H 10/13/23 21:07 Urine Color Dark yellow (Yellow) 10/13/23 23:19 Urine Appearance Clear (CLEAR) 10/13/23 23:19 Urine pH 5 (5-7) 10/13/23 23:19 Ur Specific [place] 1.010 (1.005-1.030) 10/13/23 23:19 Urine Protein Trace (Negative) 10/13/23 23:19 Urine Glucose (UA) 4+ (Normal) H 10/13/23 23:19 Urine Ketones Negative (Negative) 10/13/23 23:19 Urine Blood Neg (Negative) 10/13/23 23:19 Urine Nitrate Negative (Negative) 10/13/23 23:19 Urine Bilirubin Neg (Negative) 10/13/23 23:19 Urine Urobilinogen 1 mg/dL (Negative) H 10/13/23 23:19 Ur Leukocyte Esterase Negative (Negative) 10/13/23 23:19 Urine RBC 0-4 /hpf (0-2) H 10/13/23 23:19 Urine WBC 0-4 /hpf (0-5) H 10/13/23 23:19 Ur Squamous Epith Cells None /hpf (0-5) 10/13/23 23:19 Amorphous Sediment Not Reportable 10/13/23 23:19 Urine Bacteria None /hpf (NONE) 10/13/23 23:19 All radiology interpretation(s) finalized by discharge Discharge Plan Discharge Patient Disposition: Left Against Medical Advice Clinical Impression: Abdominal pain Condition: Stable Prescriptions: No Action allopurinol 100 mg tablet 100 mg PO DAILY PRN (Reason: GOUT) (DME) Fast Form Ulnar Gutter See Rx Instructions .Route .MEDSUPPLY Qty: 1 0RF Rx Instructions: As directed insulin glargine 100 unit/mL solution 25 unit SUBCUT DAILY 30 Days Qty: 15 1RF (DME) OneTouch Ultra Test Strip See Rx Instructions .Route Qty: 100 1RF Rx Instructions: As directed patient has one touch ultra 2 glucometer (DME) Dexcom G7 Assistant News Director Misc See Rx Instructions .Route Qty: 1 0RF Rx Instructions: As directed levothyroxine 150 mcg tablet See Rx Instructions .ROUTE .COMPLEX Qty: 30 0RF Dose Instruction: TAKE 1 CAPSULE BY MOUTH DAILY Rx Instructions: TAKE 1 CAPSULE BY MOUTH DAILY Plavix 75 mg tablet 75 mg PO DAILY@0700 Qty: 90 3RF Rx Instructions: last filled jan 2022 lisinopril 40 mg tablet 40 mg PO DAILY Qty: 90 3RF metoprolol tartrate 25 mg tablet 50 mg PO DAILY Qty: 90 6RF nitroglycerin 0.4 mg tablet, sublingual 0.4 mg SUBLINGUAL Q5M PRN (Reason: chest pain) 30 Days Qty: 30 3RF Rx Instructions: until response; do not exceed 3 doses per episode rosuvastatin 10 mg tablet 10 mg PO DAILY Qty: 90 1RF aspirin 81 mg tablet,chewable 81 mg PO DAILY@0700 Qty: 90 3RF (DME) Dexcom G7 Sensor Device See Rx Instructions .Route Qty: 3 1RF Rx Instructions: As directed metformin 500 mg tablet 500 mg PO BID Qty: 60 1RF levetiracetam 750 mg tablet 1,500 mg PO DAILY diclofenac sodium [Voltaren Arthritis Pain] 1 % gel 4 g topical QID PRN (Reason: Pain) hydrocodone-acetaminophen 5-325 mg tablet 1 tab PO Q8H PRN (Reason: Pain) Tylenol Arthritis Pain 650 mg tablet extended release 1,300 mg PO Q8H PRN (Reason: pain) (DME) Blood Glucose Monitoring Kit See Rx Instructions .Route Qty: 1 0RF Rx Instructions: As directed (DME) lancets Misc See Rx Instructions .Route Qty: 200 0RF Rx Instructions: As directed (DME) Blood Glucose Test Strip See Rx Instructions .Route Qty: 50 0RF Rx Instructions: As directed amoxicillin-pot clavulanate 875-125 mg tablet 1 tab PO BID Qty: 14 0RF bacitracin 500 unit/gram ointment 1 applic topical DAILY Qty: 14 0RF methocarbamol 750 mg tablet 750 mg PO TID PRN (Reason: back pain) Qty: 15 0RF Referrals: Dorita Flaherty FNP [Primary Care Provider] - Patient Instructions: Abdominal Pain (ED) Coding Level of Care Code ED Global Marketing Operations Manager for Marva Bunn
--- NOTE | 2023-10-13 21:44 | CTR_ITS ---
PROCEDURE INFORMATION: Exam: CT Abdomen And Pelvis With Contrast Exam date and time: 10/13/2023 11:41 PM Age: 58 years old Clinical indication: Abdominal tenderness; Prior surgery; Surgery date: 6+ months; Surgery type: Hernia, appy; Additional info: Abd pain/elevated lipase TECHNIQUE: Imaging protocol: Computed tomography of the abdomen and pelvis with contrast. Radiation optimization: All CT scans at this facility use at least one of these dose optimization techniques: automated exposure control; mA and/or kV adjustment per patient size (includes targeted exams where dose is matched to clinical indication); or iterative reconstruction. Contrast material: OMNI 350; Contrast volume: 100 ml; Contrast route: INTRAVENOUS (IV); COMPARISON: CT abdomen pelvis wo con [id number] 07/06/2023 11:37 PM RADIATION DOSE METRICS: Total DLP (mGy-cm): 928.9 FINDINGS: Lungs: Minimal lung base atelectasis or scarring. Diaphragm: Tiny hiatal hernia. Liver: Overt cirrhosis. Heterogenous liver. No enhancing focal mass. Gallbladder and bile ducts: Absent gallbladder. Pancreas: Unremarkable with no suspicious mass. No ductal dilation. Spleen: Ynnq-zh-mambqtua splenomegaly. Adrenal glands: Normal. No mass. Kidneys and ureters: No solid renal mass or hydronephrosis. Few small cysts. Stomach and bowel: Mild diffuse large and small bowel wall thickening is probably due to mural edema. No small bowel obstruction, abscess or free air. Appendix: Normal appendix. Intraperitoneal space: At least mild ascites. Mild diffuse mesenteric edema. No abscess or free air. Vasculature: Numerous abdominal and pelvic varices. Small pelvic phleboliths. Large portal vein. No evidence of thrombus. Advanced diffuse vascular calcification noted. Lymph nodes: No enlarged lymph nodes. Urinary bladder: Equivocal bladder wall thickening is probably incidental. Reproductive: Large prostate. Bones/joints: Xvmv-xq-jhhymagr spine DJD. Old bilateral L5 pars defects. Soft tissues: Right anterior chest subcutaneous metallic artifact. CT/CT abdomen pelvis w con* [id number] IMPRESSION: 1. Overt cirrhosis with at least mild progressive ascites and clear evidence of extensive portal hypertension including splenomegaly, varices, etc. Diffuse fluid third-spacing. 2. No small bowel obstruction, abscess or free air. Mild diffuse large and small bowel wall thickening is probably due to mural edema. 3. Other chronic/incidental findings above.
[2023-10-13] MEDS: sodium chloride 0.9% 1,000 ML 999 ML IV (22:30)
[2023-10-13] MEDS: morphine 4 mg/mL SDV 1 mL IVP (22:50)
[2023-10-13 23:42] LABS: Protein Urine Trace (Negative); Urine Appearance Clear (CLEAR); Urine Color Dark Yellow (Yellow); pH Urine 5 (5-7)
[2023-10-13 23:43] LABS: Add Urine Culture? No; Add Urine Microscopic? YES; Bilirubin Urine Neg (Negative); Blood Urine Neg (Negative); Glucose Urine UA 4+ (Normal); Ketones Urine Negative (Negative); Leukocyte Esterase Urine Negative (Negative); Nitrate Urine Negative (Negative); RBC Urine 0-4 /hpf (0-2); Urobilinogen Urine 1 mg/dL (Negative); WBC Urine 0-4 /hpf (0-5)
[2023-10-13] MEDS: iohexol 350 mg/mL 500 mL Btl (per mL) IV (23:44)
[2023-10-14] VITALS: PULSE 72; O2SAT 94
--- NOTE | 2023-10-14 10:02 | PC.NURSE ---
PATIENT CONTACTED DUE TO ABNORMAL CT READ. [facility]BO PER [place] STATES NOT ACUTE, BUT NEEDS TO FOLLOW UP WITH PCP AND THAT IF SYMPTOMS WORSEN HE CAN RETURN TO THE ER. PATIENT VERBALIZED UNDERSTANDING.
== END 2023-10-14 01:42 | disposition left against medical advice (07) ==
PROVIDERS: Emergency Medicine; Emergency Provider Emergency Medicine; PCP Nurse Practitioner Family
DX: R10.31 Right lower quadrant pain (principal); I25.10 Atherosclerotic heart disease of native coronary artery without angina pectoris; E78.5 Hyperlipidemia, unspecified; I10 Essential (primary) hypertension; E11.9 Type 2 diabetes mellitus without complications; Z72.0 Tobacco use; Z53.29 Procedure and treatment not carried out because of patient's decision for other reasons
CPT/HCPCS: 36415; 74177; 80053; 81001; 83690; 85025; 96361; 96374; 99285; J2270; J7030; Q9967

== ENCOUNTER 2023-10-15 19:49 | Emergency (ER) | payer MEDICAID, SELFPAY ==
[2023-10-15 19:53] VITALS: BP 161/90; PULSE 79; RESP 16; TEMP 36.7; O2SAT 96
[2023-10-15 20:12] LABS: Basophils # 0.1 10^3/uL (0.0-0.1); Basophils % 0.9 %; Eosinophils # 0.4 10^3/uL (0.0-0.8); Eosinophils % 5.5 %; Hematocrit 39.3 % (37-53); Lymphocytes # 0.9 10^3/uL (0.8-4.8); Lymphocytes % 13.7 %; Mean Corpuscular HGB Conc 34.4 g/dL (30-55); Mean Corpuscular Hemoglobin 31.1 pg (27-33); Mean Corpuscular Volume 90.6 fl (82-101); Mean Platelet Volume 10.9 fL (7.4-10.4); Monocytes # 0.6 10^3/uL (0.2-0.9); Monocytes % 8.4 %; Neutrophils # 4.63 10^3/uL (1.8-7.7); Nucleated Red Blood Cells % 0 %; Platelet Count 102 10^3/cmm (157-399); Red Blood Count 4.34 10^6/uL (3.85-5.65); Red Cell Distribution Width 13.4 % (12.1-15.1); White Blood Count 6.52 10^3/uL (3.29-11.43)
[2023-10-15 20:30] LABS: Alanine Aminotransferase 18 U/L (0-41); Albumin Level 3.8 g/dL (3.5-5.2); Alkaline Phosphatase 119 U/L (40-130); Anion Gap 16.6 (5-19); Aspartate Amino Transferase 36 U/L (0-40); Blood Urea Nitrogen 13 mg/dL (6-20); Calcium 8.7 mg/dL (8.5-10.5); Carbon Dioxide 23 mmol/L (22-29); Chloride 99 mmol/L (98-107); Creatinine Clr Calc Pharmacy 88.7897; Globulin 3.5 g/dL (1.3-4.6); Glomerular Filtration Rate 69.2 mL/min (90-130); Glucose 386 mg/dL (65-115); Lipase 63 U/L (13-60); Osmolality Calculated 296 mOsm/kg (285-295); Potassium 3.6 mmol/L (3.5-5.1); Sodium 135 mmol/L (136-145); Total Bilirubin 1.1 mg/dL (0.15-1.2); Total Protein 7.3 g/dL (6.6-8.7)
[2023-10-15 20:36] LABS: Alcohol Level < 10 mg/dL (0-10)
[2023-10-15 20:39] VITALS: BP 133/90; PULSE 76; RESP 18; O2SAT 94
--- NOTE | 2023-10-15 20:55 | ED_ITS ---
HPI - Abdominal Pain 2 General: Chief Complaint: Abdominal Pain Stated Complaint: ABD PAIN Time Seen by Provider: 10/15/23 20:21 Source: patient Mode of arrival: ambulatory Limitations: no limitations History of Present Illness: 58-year-old male who is well-known to [facility] ER send history of cirrhosis he has chronic abdominal pain patient was seen here [address] showed no acute findings. He states today's been having pain over his liver he rates his pain a 4 out of 10 denies any fever denies any vomiting denies any diarrhea. Associated Symptoms: Denies chills, diarrhea, fever(s), nausea and vomiting Review of Systems 2 Const: Denies: fever(s), chills, body aches or change in appetite ENMT: Denies: throat pain or dental pain Card: Denies: chest pain Resp: Denies: dyspnea GI: Reports: abdominal pain; Denies: nausea, vomiting or diarrhea Musc: Denies: neck pain or back pain Skin/Breast: Denies: rash Neuro: Denies: headache(s) PFSH ED 2 PFSH: Medical History Acute kidney injury Coronary artery disease Chronic low back pain Dyslipidemia Benign essential hypertension with target blood pressure below 140/90 Type 2 diabetes mellitus Atypical chest pain Epilepsy Obesity Glucose intolerance Smoker Hypothyroidism Surgical History H/O heart artery stent 07/11/2020-Cardiac stent placement mid LAD H/O umbilical hernia repair History of appendectomy Family History Father , at age 74 Family history of premature coronary artery disease Had a myocardial infarction in his 40s. Diabetes CAD (coronary artery disease) Chronic kidney disease (CKD) Stroke Brother Family history of premature coronary artery disease CAD (coronary artery disease) Had [place] in the 50s Diabetes Stroke Grandmother CAD (coronary artery disease) Diabetes Grandfather CAD (coronary artery disease) Mother , at age 84 CAD (coronary artery disease) Cancer Diabetes COVID-19 Family/Other Lung disease Denies family history of Clotting disorder Dementia Suicide Anesthesia complication Bleeding disorder Social History Smoking and tobacco/nicotine status: current every day tobacco/nicotine user Alcohol intake: current Alcohol intake frequency: holidays/special occasions only Substance/Drug Use: never Household members: spouse Housing: House Marital status: Current occupational status: disabled Physical Exam 2 Const: COMMON NORMALS: no acute distress, patient oriented x3 and healthy appearing HENMT: COMMON NORMALS: normocephalic and atraumatic HEAD & SCALP: n ormocephalic and atraumatic Neck/C-Spine: COMMON NORMALS: full ROM and supple Chest: COMMONS NORMALS: normal inspection of the chest Resp: COMMON NORMALS: normal respiratory effort Cardio: COMMON NORMALS: regular rate, regular rhythm and No murmurs present (Cardio) RATE: regular rate RHYTHM: regular rhythm GI: COMMON NORMALS: Normal to inspection, nondistended, normoactive bowel sounds present, Soft to palpation, non-tender and no masses PALPATION: Yes Soft to palpation Extremity: COMMON NORMALS: normal to inspection and full ROM Neuro: COMMON NORMALS: patient oriented x3, moves all extremities and no focal motor deficits Psych: COMMON NORMALS: mental status grossly normal, Normal thought process present and cooperative THOUGHT PROCESS: Normal thought process present Skin: COMMON NORMALS: no rashes or lesions noted and no wounds GENERAL SKIN EXAM: no rashes or lesions noted Course 2 Vital Signs: Vital signs: Vital Signs Temperature 98.0 F 10/15/23 19:53 Pulse Rate 76 10/15/23 20:39 Respiratory Rate 18 10/15/23 20:39 Blood Pressure 133/90 10/15/23 20:39 Pulse Oximetry 94 10/15/23 20:39 Oxygen Delivery Me thod Room Air 10/15/23 20:39 MDM - Abdominal Pain Medical Decision Making Patient presents for abdominal pain is chronic in nature his blood work here is normal CT had done 2 days ago showed no acute findings he has no signs of surgical abdomen here he is stable for discharge follow-up with PCP return if worsening he understands agrees to plan Medical Records I reviewed the patient's medical records. Lab Data I reviewed the patient's lab results. 10/15/23 20:06 10/15/23 20:06 Labs/Radiology: Laboratory Results WBC 6.52 10^3/uL (3.29-11.43) 10/15/23 20:06 RBC 4.34 10^6/uL (3.85-5.65) 10/15/23 20:06 Hgb 13.50 g/dL (11.27-16.99) 10/15/23 20:06 Hct 39.3 % (37-53) 10/15/23 20:06 MCV 90.6 fl (82-101) 10/15/23 20:06 MCH 31.1 pg (27-33) 10/15/23 20:06 MCHC 34.4 g/dL (30-55) 10/15/23 20:06 RDW 13.4 % (12.1-15.1) 10/15/23 20:06 Plt Count 102 10^3/cmm (157-399) L 10/15/23 20:06 MPV 10.9 fL (7.4-10.4) H 10/15/23 20:06 Neut % (Auto) 71.0 % 10/15/23 20:06 Lymph % (Auto) 13.7 % 10/15/23 20:06 [place] % (Auto) 8.4 % 10/15/23 20:06 Eos % (Auto) 5.5 % 10/15/23 20:06 Baso % (Auto) 0.9 % 10/15/23 20:06 Neut # (Auto) 4.63 10^3/uL (1.8-7.7) 10/15/23 20:06 Lymph # (Auto) 0.9 10^3/uL (0.8-4.8) 10/15/23 20:06 [place] # (Auto) 0.6 10^3/uL (0.2-0.9) 10/15/23 20:06 Eos # (Auto) 0.4 10^3/uL (0.0-0.8) 10/15/23 20:06 Baso # (Auto) 0.1 10^3/uL (0.0-0.1) 10/15/23 20:06 Nucleated RBC % (auto) 0 % 10/15/23 20:06 Nucleated RBCs # 0.0 /100WBC 10/15/23 20:06 Sodium 135 mmol/L (136-145) L 10/15/23 20:06 Potassium 3.6 mmol/L (3.5-5.1) 10/15/23 20:06 Chloride 99 mmol/L (98-107) 10/15/23 20:06 Carbon Dioxide 23 mmol/L (22-29) 10/15/23 20:06 Anion Gap 16.6 (5-19) 10/15/23 20:06 BUN 13 mg/dL (6-20) 10/15/23 20:06 Creatinine 1.1 mg/dL (0.7-1.2) 10/15/23 20:06 GFR Calculation 69.2 mL/min (90-130) L 10/15/23 20:06 Glucose 386 mg/dL (65-115) H 10/15/23 20:06 Calculated Osmolality 296 mOsm/kg (285-295) H 10/15/23 20:06 Calcium 8.7 mg/dL (8.5-10.5) 10/15/23 20:06 Total Bilirubin 1.1 mg/dL (0.15-1.2) 10/15/23 20:06 AST 36 U/L (0-40) 10/15/23 20:06 ALT 18 U/L (0-41) 10/15/23 20:06 Alkaline Phosphatase 119 U/L (40-130) 10/15/23 20:06 Total Protein 7.3 g/dL (6.6-8.7) 10/15/23 20:06 Albumin 3.8 g/dL (3.5-5.2) 10/15/23 20:06 Globulin 3.5 g/dL (1.3-4.6) 10/15/23 20:06 Lipase 63 U/L (13-60) H 10/15/23 20:06 Ethyl Alcohol < 10 mg/dL (0-10) 10/15/23 20:06 No radiology studies performed this visit Discharge Plan Discharge Patient Disposition: Home Clinical Impression: Abdominal pain Condition: Stable Prescriptions: No Action allopurinol 100 mg tablet 100 mg PO DAILY PRN (Reason: GOUT) (DME) Fast Form Ulnar Gutter See Rx Instructions .Route .MEDSUPPLY Qty: 1 0RF Rx Instructions: As directed insulin glargine 100 unit/mL solution 25 unit SUBCUT DAILY 30 Days Qty: 15 1RF (DME) OneTouch Ultra Test Strip See Rx Instructions .Route Qty: 100 1RF Rx Instructions: As directed patient has one touch ultra 2 glucometer (DME) Dexcom G7 Reproduction Specialist Misc See Rx Instructions .Route Qty: 1 0RF Rx Instructions: As directed levothyroxine 150 mcg tablet See Rx Instructions .ROUTE .COMPLEX Qty: 30 0RF Dose Instruction: TAKE 1 CAPSULE BY MOUTH DAILY Rx Instructions: TAKE 1 CAPSULE BY MOUTH DAILY Plavix 75 mg tablet 75 mg PO DAILY@0700 Qty: 90 3RF Rx Instructions: last filled jan 2022 lisinopril 40 mg tablet 40 mg PO DAILY Qty: 90 3RF metoprolol tartrate 25 mg tablet 50 mg PO DAILY Qty: 90 6RF nitroglycerin 0.4 mg tablet, sublingual 0.4 mg SUBLINGUAL Q5M PRN (Reason: chest pain) 30 Days Qty: 30 3RF Rx Instructions: until response; do not exceed 3 doses per episode rosuvastatin 10 mg tablet 10 mg PO DAILY Qty: 90 1RF aspirin 81 mg tablet,chewable 81 mg PO DAILY@0700 Qty: 90 3RF (DME) Dexcom G7 Sensor Device See Rx Instructions .Route Qty: 3 1RF Rx Instructions: As directed metformin 500 mg tablet 500 mg PO BID Qty: 60 1RF levetiracetam 750 mg tablet 1,500 mg PO DAILY diclofenac sodium [Voltaren Arthritis Pain] 1 % gel 4 g topical QID PRN (Reason: Pain) hydrocodone-acetaminophen 5-325 mg tablet 1 tab PO Q8H PRN (Reason: Pain) Tylenol Arthritis Pain 650 mg tablet extended release 1,300 mg PO Q8H PRN (Reason: pain) (DME) Blood Glucose Monitoring Kit See Rx Instructions .Route Qty: 1 0RF Rx Instructions: As directed (DME) lancets Misc See Rx Instructions .Route Qty: 200 0RF Rx Instructions: As directed (DME) Blood Glucose Test Strip See Rx Instructions .Route Qty: 50 0RF Rx Instructions: As directed amoxicillin-pot clavulanate 875-125 mg tablet 1 tab PO BID Qty: 14 0RF bacitracin 500 unit/gram ointment 1 applic topical DAILY Qty: 14 0RF methocarbamol 750 mg tablet 750 mg PO TID PRN (Reason: back pain) Qty: 15 0RF Discharge Orders: Discharge ED (Routine); Ordered 10/15/23 Ordered By: Kerry Jeter Referrals: Dorita Flaherty FNP [Primary Care Provider] - 4-7 days Discharge Diet: Advance as tolerated Discharge Activity: Resume usual activity Patient Instructions: Abdominal Pain (ED) Coding Level of Care Code ED Laboratory Technician for Marva Bunn
[2023-10-15] MEDS: HYDROcodone-acetaminophen 5-325 mg Tablet 1 TAB PO (21:06)
[2023-10-15 21:21] VITALS: BP 136/85; PULSE 79; RESP 18; O2SAT 95
== END 2023-10-15 21:08 | disposition home or self-care (01) ==
PROVIDERS: Emergency Provider Emergency Medicine; PCP Nurse Practitioner Family
DX: R10.9 Unspecified abdominal pain (principal); Z79.02 Long term (current) use of antithrombotics/antiplatelets; Z79.82 Long term (current) use of aspirin; Z79.84 Long term (current) use of oral hypoglycemic drugs; Z79.4 Long term (current) use of insulin; Z72.0 Tobacco use; I25.10 Atherosclerotic heart disease of native coronary artery without angina pectoris; E78.5 Hyperlipidemia, unspecified; I10 Essential (primary) hypertension; E11.9 Type 2 diabetes mellitus without complications
CPT/HCPCS: 36415; 80053; 80307; 83690; 85025; 99283

== ENCOUNTER → 2023-10-16 09:09 | Outpatient (BNVA) | payer MEDICAID, SELFPAY | PROVIDERS: PCP Nurse Practitioner Family; Visit Provider Internal Medicine | DX: E03.8 Other specified hypothyroidism (principal); E06.3 Autoimmune thyroiditis; E11.65 Type 2 diabetes mellitus with hyperglycemia; K74.60 Unspecified cirrhosis of liver; K76.6 Portal hypertension; R10.9 Unspecified abdominal pain; R16.1 Splenomegaly, not elsewhere classified; R63.5 Abnormal weight gain; I86.8 Varicose veins of other specified sites; R18.8 Other ascites; Z79.4 Long term (current) use of insulin; Z79.890 Hormone replacement therapy; Z68.31 Body mass index [BMI] 31.0-31.9, adult | CPT/HCPCS: 99215 ==

== ENCOUNTER 2023-10-19 13:41 | Emergency (ER) | payer MEDICAID, SELFPAY ==
[2023-10-19 14:00] VITALS: BP 150/93; PULSE 68; RESP 17; TEMP 36.6; O2SAT 95; BMI 30.8
[2023-10-19 14:05] LABS: Basophils # 0.1 10^3/uL (0.0-0.1); Basophils % 1.1 %; Eosinophils # 0.3 10^3/uL (0.0-0.8); Eosinophils % 4.5 %; Lymphocytes # 0.9 10^3/uL (0.8-4.8); Lymphocytes % 14.8 %; Mean Corpuscular HGB Conc 34.4 g/dL (30-55); Mean Corpuscular Hemoglobin 30.6 pg (27-33); Mean Platelet Volume 10.1 fL (7.4-10.4); Monocytes # 0.5 10^3/uL (0.2-0.9); Neutrophils # 4.39 10^3/uL (1.8-7.7); Neutrophils % 71.3 %; Nucleated Red Blood Cells % 0 %; Platelet Count 106 10^3/cmm (157-399); Red Blood Count 4.38 10^6/uL (3.85-5.65); Red Cell Distribution Width 13.2 % (12.1-15.1); White Blood Count 6.16 10^3/uL (3.29-11.43)
[2023-10-19 14:20] LABS: Alanine Aminotransferase 18 U/L (0-41); Albumin Level 3.5 g/dL (3.5-5.2); Alkaline Phosphatase 120 U/L (40-130); Anion Gap 13.5 (5-19); Aspartate Amino Transferase 28 U/L (0-40); Blood Urea Nitrogen 13 mg/dL (6-20); Calcium 8.9 mg/dL (8.5-10.5); Carbon Dioxide 26 mmol/L (22-29); Chloride 101 mmol/L (98-107); Creatinine Clr Calc Pharmacy 96.6103; Globulin 3.7 g/dL (1.3-4.6); Glomerular Filtration Rate 77.3 mL/min (90-130); Glucose 346 mg/dL (65-115); Lipase 110 U/L (13-60); Osmolality Calculated 298 mOsm/kg (285-295); Potassium 3.5 mmol/L (3.5-5.1); Sodium 137 mmol/L (136-145); Total Bilirubin 1.4 mg/dL (0.15-1.2); Total Protein 7.2 g/dL (6.6-8.7)
[2023-10-19 15:10] VITALS: BP 140/86; PULSE 65; RESP 18; O2SAT 96
--- NOTE | 2023-10-19 15:23 | XRR_ITS ---
PROCEDURE INFORMATION: Exam: XR Abdomen Exam date and time: 10/19/2023 3:26 PM Age: 58 years old Clinical indication: Abdominal pain; Localized; Right lower quadrant (rlq); Prior surgery; Surgery date: 6+ months; Surgery type: Cholecystectomy; Additional info: Rlq abd pain TECHNIQUE: Imaging protocol: Radiologic exam of the abdomen. Views: Frontal supine view of the abdomen. 1 View. COMPARISON: CT abdomen pelvis w con* [id number] 10/13/2023 11:41 PM FINDINGS: Gastrointestinal tract: Likely constipation. There is a large amount of colonic fecal material. No bowel dilation. Bones/joints: Unremarkable. XR/XR KUB [id number] IMPRESSION: No acute findings.
--- NOTE | 2023-10-19 15:24 | ED_ITS ---
HPI - Abdominal Pain 2 General: Chief Complaint: Abdominal Pain Stated Complaint: RLQ ABD PAIN Time Seen by Provider: 10/19/23 15:12 History of Present Illness: 58-year-old male patient with a history of chronic abdominal pain comes in today for complaints of right lower quadrant abdominal pain. Patient has cirrhosis of the liver, type 2 diabetes, hypertension, hypothyroidism. Patient recently had a CT scan which was normal. Review of labs showed no changes from prior exams. Patient appears in mild to no pain. Patient appears nontoxic. MD elicited complaint: abdominal pain Pertinent past history: none Onset (ago): day(s) Pain Consistency: intermittent Location: RLQ Severity: similar to previous episodes Review of Systems 2 General: Reports: 10 or more systems reviewed and unremarkable except in HPI and below PFSH ED 2 PFSH: Medical History Acute kidney injury Coronary artery disease Chronic low back pain Dyslipidemia Benign essential hypertension with target blood pressure below 140/90 Type 2 diabetes mellitus Atypical chest pain Epilepsy Obesity Glucose intolerance Smoker Hypothyroidism Surgical History H/O heart artery stent 07/11/2020-Cardiac stent placement mid LAD H/O umbilical hernia repair History of appendectomy Family History Father , at age 74 Family history of premature coronary artery disease Had a myocardial infarction in his 40s. Diabetes CAD (coronary artery disease) Chronic kidney disease (CKD) Stroke Brother Family history of premature coronary artery disease CAD (coronary artery disease) Had [place] in the 50s Diabetes Stroke Grandmother CAD (coronary artery disease) Diabetes Grandfather CAD (coronary artery disease) Mother , at age 84 CAD (coronary artery disease) Cancer Diabetes COVID-19 Family/Other Lung disease Denies family history of Clotting disorder Dementia Suicide Anesthesia complication Bleeding disorder Social History Smoking and tobacco/nicotine status: never used tobacco/nicotine Alcohol intake: current Alcohol intake frequency: holidays/special occasions only Substance/Drug Use: never Household members: spouse Housing: House Marital status: Current occupational status: disabled Physical Exam 2 Const: COMMON NORMALS: alert HENMT: COMMON NORMALS: normocephalic HEAD & SCALP: normocephalic Neck/C-Spine: COMMON NORMALS: full ROM Chest: COMMONS NORMALS: normal inspection of the chest Cardio: COMMON NORMALS: regular rate and regular rhythm RATE: regular rate RHYTHM: regular rhythm GI: COMMON NORMALS: Soft to palpation AUSCULTATION: Yes normoactive bowel sounds PALPATION: Yes Soft to palpation and Yes Tenderness to palpation present (GI) Details: RLQ and RUQ : COMMON NORMALS: Yes no CVA tenderness BLADDER/KIDNEY EXAM: Yes no CVA tenderness Back/Pelvis: COMMON NORMALS: no CVA tenderness and thoracic and lumbar spine normal to inspection Extremity: COMMON NORMALS: normal to inspection Neuro: SENSORIUM/ORIENTATION: Yes alert Skin: COMMON NORMALS: turgor normal GENERAL SKIN EXAM: turgor normal Course 2 Vital Signs: Vital signs: Vital Signs Temperature 97.9 F 10/19/23 14:00 Pulse Rate 65 10/19/23 15:10 Respiratory Rate 18 10/19/23 15:10 Blood Pressure 147/87 10/19/23 16:30 Pulse Oximetry 95 10/19/23 16:30 Oxygen Delivery Me thod Room Air 10/19/23 16:30 MDM - Abdominal Pain Medical Decision Making 58-year-old male patient comes in today for complaints of right lower quadrant abdominal pain. On exam patient appears nontoxic. Lungs are clear to auscultation. Abdomen soft with some mild tenderness to the right lower quadrant. Bowel sounds are present. Given is warm and dry. Vital signs are normal. Review of the record notes no changes in prior labs. And CT scan which was unremarkable on the third. Differential diagnosis includes not limited to malingering, constipation, renal calculi, UTI, unlikely appendicitis. CBC and CMP were unremarkable except for some elevated blood glucose at 346. Laboratory values were significantly unchanged from previous exams. KUB x-ray was unremarkable for signs of obstruction or renal calculi. Urinalysis was notable for some glucose and bilirubin. Patient was given 1 hydrocodone which resolved his pain. Believe this is most likely patient's chronic abdominal pain. Recommended patient drink plenty of water and fluids. Follow-up with primary care for further evaluation and treatment. Return to ED for new concerns. Lab Data 10/19/23 13:59 10/19/23 13:59 Labs/Radiology: Laboratory Results WBC 6.16 10^3/uL (3.29-11.43) 10/19/23 13:59 RBC 4.38 10^6/uL (3.85-5.65) 10/19/23 13:59 Hgb 13.40 g/dL (11.27-16.99) 10/19/23 13:59 Hct 39.0 % (37-53) 10/19/23 13:59 MCV 89.0 fl (82-101) 10/19/23 13:59 MCH 30.6 pg (27-33) 10/19/23 13:59 MCHC 34.4 g/dL (30-55) 10/19/23 13:59 RDW 13.2 % (12.1-15.1) 10/19/23 13:59 Plt Count 106 10^3/cmm (157-399) L 10/19/23 13:59 MPV 10.1 fL (7.4-10.4) 10/19/23 13:59 Neut % (Auto) 71.3 % 10/19/23 13:59 Lymph % (Auto) 14.8 % 10/19/23 13:59 Ray % (Auto) 8.0 % 10/19/23 13:59 Eos % (Auto) 4.5 % 10/19/23 13:59 Baso % (Auto) 1.1 % 10/19/23 13:59 Neut # (Auto) 4.39 10^3/uL (1.8-7.7) 10/19/23 13:59 Lymph # (Auto) 0.9 10^3/uL (0.8-4.8) 10/19/23 13:59 Ray # (Auto) 0.5 10^3/uL (0.2-0.9) 10/19/23 13:59 Eos # (Auto) 0.3 10^3/uL (0.0-0.8) 10/19/23 13:59 Baso # (Auto) 0.1 10^3/uL (0.0-0.1) 10/19/23 13:59 Nucleated RBC % (auto) 0 % 10/19/23 13:59 Nucleated RBCs # 0.0 /100WBC 10/19/23 13:59 Sodium 137 mmol/L (136-145) 10/19/23 13:59 Potassium 3.5 mmol/L (3.5-5.1) 10/19/23 13:59 Chloride 101 mmol/L (98-107) 10/19/23 13:59 Carbon Dioxide 26 mmol/L (22-29) 10/19/23 13:59 Anion Gap 13.5 (5-19) 10/19/23 13:59 BUN 13 mg/dL (6-20) 10/19/23 13:59 Creatinine 1.0 mg/dL (0.7-1.2) 10/19/23 13:59 GFR Calculation 77.3 mL/min (90-130) L 10/19/23 13:59 Glucose 346 mg/dL (65-115) H 10/19/23 13:59 Calculated Osmolality 298 mOsm/kg (285-295) H 10/19/23 13:59 Calcium 8.9 mg/dL (8.5-10.5) 10/19/23 13:59 Total Bilirubin 1.4 mg/dL (0.15-1.2) H 10/19/23 13:59 AST 28 U/L (0-40) 10/19/23 13:59 ALT 18 U/L (0-41) 10/19/23 13:59 Alkaline Phosphatase 120 U/L (40-130) 10/19/23 13:59 Total Protein 7.2 g/dL (6.6-8.7) 10/19/23 13:59 Albumin 3.5 g/dL (3.5-5.2) 10/19/23 13:59 Globulin 3.7 g/dL (1.3-4.6) 10/19/23 13:59 Lipase 110 U/L (13-60) H 10/19/23 13:59 Urine Color Yellow (Yellow) 10/19/23 15:37 Urine Appearance Clear (CLEAR) 10/19/23 15:37 Urine pH 6 (5-7) 10/19/23 15:37 Ur Specific [place] 1.015 (1.005-1.030) 10/19/23 15:37 Urine Protein Neg (Negative) 10/19/23 15:37 Urine Glucose (UA) 4+ (Normal) H 10/19/23 15:37 Urine Ketones Negative (Negative) 10/19/23 15:37 Urine Blood Neg (Negative) 10/19/23 15:37 Urine Nitrate Negative (Negative) 10/19/23 15:37 Urine Bilirubin Neg (Negative) 10/19/23 15:37 Urine Urobilinogen 4 mg/dL (Negative) H 10/19/23 15:37 Ur Leukocyte Esterase Negative (Negative) 10/19/23 15:37 XR interpretation done by ED provider, pending radiology final review Discharge Plan Discharge Patient Disposition: Home Clinical Impression: Abdominal pain Qualifiers: Abdominal location: right lower quadrant Qualified Code(s): R10.31 - Right lower quadrant pain Condition: Stable Prescriptions: No Action allopurinol 100 mg tablet 100 mg PO DAILY PRN (Reason: GOUT) (DME) Fast Form Ulnar Gutter See Rx Instructions .Route .MEDSUPPLY Qty: 1 0RF Rx Instructions: As directed insulin glargine 100 unit/mL solution 25 unit SUBCUT DAILY 30 Days Qty: 15 1RF (DME) OneTouch Ultra Test Strip See Rx Instructions .Route Qty: 100 1RF Rx Instructions: As directed patient has one touch ultra 2 glucometer (DME) Dexcom G7 Tmd Teacher Assistant Misc See Rx Instructions .Route Qty: 1 0RF Rx Instructions: As directed levothyroxine 150 mcg tablet See Rx Instructions .ROUTE .COMPLEX Qty: 30 0RF Dose Instruction: TAKE 1 CAPSULE BY MOUTH DAILY Rx Instructions: TAKE 1 CAPSULE BY MOUTH DAILY Plavix 75 mg tablet 75 mg PO DAILY@0700 Qty: 90 3RF Rx Instructions: last filled jan 2022 lisinopril 40 mg tablet 40 mg PO DAILY Qty: 90 3RF metoprolol tartrate 25 mg tablet 50 mg PO DAILY Qty: 90 6RF nitroglycerin 0.4 mg tablet, sublingual 0.4 mg SUBLINGUAL Q5M PRN (Reason: chest pain) 30 Days Qty: 30 3RF Rx Instructions: until response; do not exceed 3 doses per episode rosuvastatin 10 mg tablet 10 mg PO DAILY Qty: 90 1RF aspirin 81 mg tablet,chewable 81 mg PO DAILY@0700 Qty: 90 3RF (DME) Dexcom G7 Sensor Device See Rx Instructions .Route Qty: 3 1RF Rx Instructions: As directed levetiracetam 750 mg tablet 1,500 mg PO DAILY diclofenac sodium [Voltaren Arthritis Pain] 1 % gel 4 g topical QID PRN (Reason: Pain) hydrocodone-acetaminophen 5-325 mg tablet 1 tab PO Q8H PRN (Reason: Pain) Tylenol Arthritis Pain 650 mg tablet extended release 1,300 mg PO Q8H PRN (Reason: pain) (DME) Blood Glucose Monitoring Kit See Rx Instructions .Route Qty: 1 0RF Rx Instructions: As directed (DME) lancets Misc See Rx Instructions .Route Qty: 200 0RF Rx Instructions: As directed (DME) Blood Glucose Test Strip See Rx Instructions .Route Qty: 50 0RF Rx Instructions: As directed amoxicillin-pot clavulanate 875-125 mg tablet 1 tab PO BID Qty: 14 0RF bacitracin 500 unit/gram ointment 1 applic topical DAILY Qty: 14 0RF methocarbamol 750 mg tablet 750 mg PO TID PRN (Reason: back pain) Qty: 15 0RF Discharge Orders: Discharge ED (Routine); Ordered 10/19/23 Ordered By: Alexis Brian Referrals: Dorita Flaherty FNP [Primary Care Provider] - Patient Instructions: Abdominal Pain (ED) Activity Restrictions/Additional Instructions: Home and rest. Drink plenty water and fluids. Follow-up with primary care for further evaluation and treatment. Return to ED for worsening symptoms such as high fever, nausea vomiting, or new concerns. Coding Level of Care Code ED Video Effects Editor for Marva Bunn
[2023-10-19] MEDS: HYDROcodone-acetaminophen 5-325 mg Tablet 1 TAB PO (15:36)
[2023-10-19 16:08] LABS: Add Urine Microscopic? NO; Charge for UA Resulting for Rev
[2023-10-19 16:11] LABS: Bilirubin Urine Neg (Negative); Blood Urine Neg (Negative); Glucose Urine UA 4+ (Normal); Ketones Urine Negative (Negative); Leukocyte Esterase Urine Negative (Negative); Nitrate Urine Negative (Negative); Protein Urine Neg (Negative); Specific Gravity, Urine 1.015 (1.005-1.030); Urine Appearance Clear (CLEAR); Urine Color Yellow (Yellow); Urobilinogen Urine 4 mg/dL (Negative); pH Urine 6 (5-7)
[2023-10-19 16:30] VITALS: BP 147/87; O2SAT 95
[2023-10-19 17:08] VITALS: BP 132/72; O2SAT 94
== END 2023-10-19 17:10 | disposition home or self-care (01) ==
PROVIDERS: Emergency Medicine; Emergency Provider Nurse Practitioner Family; PCP Nurse Practitioner Family
DX: R10.31 Right lower quadrant pain (principal); Z79.02 Long term (current) use of antithrombotics/antiplatelets; Z79.82 Long term (current) use of aspirin; Z79.4 Long term (current) use of insulin; I25.10 Atherosclerotic heart disease of native coronary artery without angina pectoris; E78.5 Hyperlipidemia, unspecified; I10 Essential (primary) hypertension; E11.9 Type 2 diabetes mellitus without complications
CPT/HCPCS: 36415; 74018; 80053; 81003; 83690; 85025; 99284

== ENCOUNTER 2023-10-23 20:19 | Emergency (ER) | payer MEDICAID, SELFPAY ==
[2023-10-23 20:29] VITALS: BP 156/94; PULSE 73; RESP 16; TEMP 36.8; O2SAT 92; BMI 31.7
--- NOTE | 2023-10-23 20:35 | XRR_ITS ---
PROCEDURE INFORMATION: Exam: XR Chest Exam date and time: 10/23/2023 9:30 PM Age: 58 years old Clinical indication: Other: Chest pains; Prior surgery; Surgery date: 6+ months; Surgery type: Heart stent; Additional info: Chest pain TECHNIQUE: Imaging protocol: Radiologic exam of the chest. Views: 1 view. COMPARISON: CR XR chest 1V portable [id number] 04/20/2023 12:22 PM FINDINGS: Lungs: Calcified granuloma in the right lung base. The lungs are otherwise clear. Pleural spaces: Unremarkable. No pleural effusion. No pneumothorax. Heart/Mediastinum: Unremarkable. No cardiomegaly. Bones/joints: Curvature and degenerative changes in the spine. No acute fracture. XR/XR chest 1V portable [id number] IMPRESSION: No acute findings.
--- NOTE | 2023-10-23 20:35 | ECG_ITS ---
[facility] Test Date: 2023-10-23 Pat Name: Alonso Golden Department: Room: Gender: Male Coding Clerk: : [id number] Requested By: Sedrick Ramsey Order Number: [id number] Mariaa MD: Sujata Flores M.D. Measurements Intervals Smiley Rate: 70 P: 22 AK: 168 QRS: -26 QRSD: 106 T: 31 QT: 421 QTc: 456 Interpretive Statements SINUS RHYTHM MINIMAL VOLTAGE CRITERIA FOR LVH, CONSIDER NORMAL VARIANT [MEETS CRITERIA IN ONE OF: R(aVL), S(V1), R(V5), R(V5/V6)+S(V1)] POSSIBLE ANTERIOR MYOCARDIAL INFARCTION , PROBABLY OLD [30 ms Q WAVE IN V3/V4, OR R < 0.2 mV IN V4] Compared to ECG 09/29/2023 20:45:14 Myocardial infarct finding now present T-wave abnormality no longer present Electronically Signed On 10-23-2023 22:10:38 CDT by Sujata Flores M.D. [email or web address]
[2023-10-23 21:16] LABS: Basophils # 0.1 10^3/uL (0.0-0.1); Basophils % 1.5 %; Eosinophils # 0.3 10^3/uL (0.0-0.8); Eosinophils % 4.8 %; Lymphocytes # 0.9 10^3/uL (0.8-4.8); Lymphocytes % 12.7 %; Mean Corpuscular HGB Conc 34.3 g/dL (30-55); Mean Corpuscular Hemoglobin 30.3 pg (27-33); Mean Corpuscular Volume 88.4 fl (82-101); Mean Platelet Volume 10.1 fL (7.4-10.4); Monocytes # 0.5 10^3/uL (0.2-0.9); Monocytes % 7.7 %; Neutrophils # 4.98 10^3/uL (1.8-7.7); Neutrophils % 72.7 %; Nucleated Red Blood Cells % 0 %; Platelet Count 131 10^3/cmm (157-399); Red Blood Count 4.75 10^6/uL (3.85-5.65); Red Cell Distribution Width 13.2 % (12.1-15.1); White Blood Count 6.85 10^3/uL (3.29-11.43)
[2023-10-23 21:31] LABS: Alanine Aminotransferase 19 U/L (0-41); Alkaline Phosphatase 126 U/L (40-130); Anion Gap 12.1 (5-19); Aspartate Amino Transferase 29 U/L (0-40); Blood Urea Nitrogen 10 mg/dL (6-20); Calcium 9.7 mg/dL (8.5-10.5); Carbon Dioxide 27 mmol/L (22-29); Chloride 100 mmol/L (98-107); Creatinine Clr Calc Pharmacy 97.8805; Globulin 3.4 g/dL (1.3-4.6); Glomerular Filtration Rate 77.3 mL/min (90-130); Glucose 255 mg/dL (65-115); Osmolality Calculated 290 mOsm/kg (285-295); Potassium 3.1 mmol/L (3.5-5.1); Sodium 136 mmol/L (136-145); Total Bilirubin 1.5 mg/dL (0.15-1.2); Total Protein 7.4 g/dL (6.6-8.7)
[2023-10-23 22:15] LABS: Troponin(5th) Baseline 16 ng/L (0-15)
[2023-10-23 23:20] LABS: Troponin 5 2HR 16.29 ng/L (0-15); Troponin 5 2HR Delta 0.29 ABS# (0-10)
--- NOTE | 2023-10-23 23:20 | ED_ITS ---
HPI - Chest Pain 2 General: Chief Complaint: Chest Pain Stated Complaint: Chest pain Time Seen by Provider: 10/23/23 23:19 History of Present Illness: 58-year-old male patient comes in today for complaints of midsternal chest pain. Patient appears nontoxic. Patient appears no acute distress. Patient has recurrent episodes of angina. Patient is well-known to the ER for his recurrent chest pain. Patient does have a history of coronary artery disease and stent placement. Review of Systems 2 General: Reports: 10 or more systems reviewed and unremarkable except in HPI and below PFSH ED 2 PFSH: Medical History Acute kidney injury Coronary artery disease Chronic low back pain Dyslipidemia Benign essential hypertension with target blood pressure below 140/90 Type 2 diabetes mellitus Atypical chest pain Epilepsy Obesity Glucose intolerance Smoker Hypothyroidism Surgical History H/O heart artery stent 07/11/2020-Cardiac stent placement mid LAD H/O umbilical hernia repair History of appendectomy Family History Father , at age 74 Family history of premature coronary artery disease Had a myocardial infarction in his 40s. Diabetes CAD (coronary artery disease) Chronic kidney disease (CKD) Stroke Brother Family history of premature coronary artery disease CAD (coronary artery disease) Had [place] in the 50s Diabetes Stroke Grandmother CAD (coronary artery disease) Diabetes Grandfather CAD (coronary artery disease) Mother , at age 84 CAD (coronary artery disease) Cancer Diabetes COVID-19 Family/Other Lung disease Denies family history of Clotting disorder Dementia Suicide Anesthesia complication Bleeding disorder Social History Smoking and tobacco/nicotine status: never used tobacco/nicotine Alcohol intake: current Alcohol intake frequency: holidays/special occasions only Substance/Drug Use: never Household members: spouse Housing: House Marital status: Current occupational status: disabled Physical Exam 2 Const: COMMON NORMALS: alert HENMT: COMMON NORMALS: normocephalic HEAD & SCALP: normocephalic Neck/C-Spine: COMMON NORMALS: full ROM Chest: CHEST: Yes tenderness (Midsternal chest pain) Resp: COMMON NORMALS: normal respiratory effort and clear to auscultation bilaterally AUSCULTATION: clear to auscultation bilaterally Cardio: COMMON NORMALS: regular rate and regular rhythm RATE: regular rate RHYTHM: regular rhythm GI: COMMON NORMALS: non-tender Back/Pelvis: COMMON NORMALS: thoracic and lumbar spine normal to inspection Neuro: SENSORIUM/ORIENTATION: Yes alert Skin: COMMON NORMALS: turgor normal GENERAL SKIN EXAM: turgor normal Course 2 Vital Signs: Vital signs: Vital Signs Temperature 98.2 F 10/23/23 20:29 Pulse Rate 73 10/23/23 20:29 Respiratory Rate 16 10/23/23 20:29 Blood Pressure 156/94 10/23/23 20:29 Pulse Oximetry 92 10/23/23 20:29 Oxygen Delivery Me thod Room Air 10/23/23 20:29 MDM - Chest Pain Medical Decision Making 58-year-old male patient comes in today for concerns of chest pain. On exam patient has tenderness to the mid sternum and points to his particular area that is red where he has been rubbing it. Differential diagnosis includes cellulitis, contusion, costochondritis, ACS, pneumonia. Chest x-ray was normal. Laboratory values were unremarkable except for some low potassium at 3.1. Patient was given a dose of acetaminophen 500 mg and a 40 mg of potassium. Patient was recommended to use acetaminophen and ibuprofen for pain. Follow-up with primary care for further instructions. Return to ED for new concerns. Lab Data 10/23/23 21:04 10/23/23 21:04 Radiology Impressions Chest X-Ray 10/23/23 20:35 IMPRESSION: No acute findings. Laboratory Results WBC 6.85 10^3/uL (3.29-11.43) 10/23/23 21:04 RBC 4.75 10^6/uL (3.85-5.65) 10/23/23 21:04 Hgb 14.40 g/dL (11.27-16.99) 10/23/23 21:04 Hct 42.0 % (37-53) 10/23/23 21:04 MCV 88.4 fl (82-101) 10/23/23 21:04 MCH 30.3 pg (27-33) 10/23/23 21: MCHC 34.3 g/dL (30-55) 10/23/23 21:04 RDW 13.2 % (12.1-15.1) 10/23/23 21:04 Plt Count 131 10^3/cmm (157-399) L 10/23/23 21:04 MPV 10.1 fL (7.4-10.4) 10/23/23 21:04 Neut % (Auto) 72.7 % 10/23/23 21:04 Lymph % (Auto) 12.7 % 10/23/23 21:04 [place] % (Auto) 7.7 % 10/23/23 21:04 Eos % (Auto) 4.8 % 10/23/23 21:04 Baso % (Auto) 1.5 % 10/23/23 21:04 Neut # (Auto) 4.98 10^3/uL (1.8-7.7) 10/23/23 21:04 Lymph # (Auto) 0.9 10^3/uL (0.8-4.8) 10/23/23 21:04 [place] # (Auto) 0.5 10^3/uL (0.2-0.9) 10/23/23 21:04 Eos # (Auto) 0.3 10^3/uL (0.0-0.8) 10/23/23 21:04 Baso # (Auto) 0.1 10^3/uL (0.0-0.1) 10/23/23 21:04 Nucleated RBC % (auto) 0 % 10/23/23 21:04 Nucleated RBCs # 0.0 /100WBC 10/23/23 21:04 Sodium 136 mmol/L (136-145) 10/23/23 21:04 Potassium 3.1 mmol/L (3.5-5.1) L 10/23/23 21:04 Chloride 100 mmol/L (98-107) 10/23/23 21:04 Carbon Dioxide 27 mmol/L (22-29) 10/23/23 21:04 Anion Gap 12.1 (5-19) 10/23/23 21:04 BUN 10 mg/dL (6-20) 10/23/23 21:04 Creatinine 1.0 mg/dL (0.7-1.2) 10/23/23 21:04 GFR Calculation 77.3 mL/min (90-130) L 10/23/23 21:04 Glucose 255 mg/dL (65-115) H 10/23/23 21:04 Calculated Osmolality 290 mOsm/kg (285-295) 10/23/23 21:04 Calcium 9.7 mg/dL (8.5-10.5) 10/23/23 21:04 Total Bilirubin 1.5 mg/dL (0.15-1.2) H 10/23/23 21:04 AST 29 U/L (0-40) 10/23/23 21:04 ALT 19 U/L (0-41) 10/23/23 21:04 Alkaline Phosphatase 126 U/L (40-130) 10/23/23 21:04 Troponin T Baseline 16 ng/L (0-15) H 10/23/23 21:04 Troponin T 120 Minute 16.29 ng/L (0-15) H 10/23/23 22:58 Delta Troponin T 0.29 ABS# (0-10) 10/23/23 22:58 Total Protein 7.4 g/dL (6.6-8.7) 10/23/23 21:04 Albumin 4.0 g/dL (3.5-5.2) 10/23/23 21:04 Globulin 3.4 g/dL (1.3-4.6) 10/23/23 21:04 All radiology interpretation(s) finalized by discharge Discharge Plan Discharge Patient Disposition: Home Clinical Impression: Hypokalemia Chest pain Qualifiers: Chest pain type: unspecified Qualified Code(s): R07.9 - Chest pain, unspecified Condition: Stable Prescriptions: No Action allopurinol 100 mg tablet 100 mg PO DAILY PRN (Reason: GOUT) (DME) Fast Form Ulnar Gutter See Rx Instructions .Route .MEDSUPPLY Qty: 1 0RF Rx Instructions: As directed insulin glargine 100 unit/mL solution 25 unit SUBCUT DAILY 30 Days Qty: 15 1RF (DME) OneTouch Ultra Test Strip See Rx Instructions .Route Qty: 100 1RF Rx Instructions: As directed patient has one touch ultra 2 glucometer (DME) Dexcom G7 Entry Level Drafter Misc See Rx Instructions .Route Qty: 1 0RF Rx Instructions: As directed levothyroxine 150 mcg tablet See Rx Instructions .ROUTE .COMPLEX Qty: 30 0RF Dose Instruction: TAKE 1 CAPSULE BY MOUTH DAILY Rx Instructions: TAKE 1 CAPSULE BY MOUTH DAILY Plavix 75 mg tablet 75 mg PO DAILY@0700 Qty: 90 3RF Rx Instructions: last filled jan 2022 lisinopril 40 mg tablet 40 mg PO DAILY Qty: 90 3RF metoprolol tartrate 25 mg tablet 50 mg PO DAILY Qty: 90 6RF nitroglycerin 0.4 mg tablet, sublingual 0.4 mg SUBLINGUAL Q5M PRN (Reason: chest pain) 30 Days Qty: 30 3RF Rx Instructions: until response; do not exceed 3 doses per episode rosuvastatin 10 mg tablet 10 mg PO DAILY Qty: 90 1RF aspirin 81 mg tablet,chewable 81 mg PO DAILY@0700 Qty: 90 3RF (DME) DexGlossyBox G7 Sensor Device See Rx Instructions .Route Qty: 3 1RF Rx Instructions: As directed levetiracetam 750 mg tablet 1,500 mg PO DAILY diclofenac sodium [Voltaren Arthritis Pain] 1 % gel 4 g topical QID PRN (Reason: Pain) hydrocodone-acetaminophen 5-325 mg tablet 1 tab PO Q8H PRN (Reason: Pain) Tylenol Arthritis Pain 650 mg tablet extended release 1,300 mg PO Q8H PRN (Reason: pain) (DME) Blood Glucose Monitoring Kit See Rx Instructions .Route Qty: 1 0RF Rx Instructions: As directed (DME) lancets Misc See Rx Instructions .Route Qty: 200 0RF Rx Instructions: As directed (DME) Blood Glucose Test Strip See Rx Instructions .Route Qty: 50 0RF Rx Instructions: As directed amoxicillin-pot clavulanate 875-125 mg tablet 1 tab PO BID Qty: 14 0RF bacitracin 500 unit/gram ointment 1 applic topical DAILY Qty: 14 0RF methocarbamol 750 mg tablet 750 mg PO TID PRN (Reason: back pain) Qty: 15 0RF Discharge Orders: Discharge ED (Routine); Ordered 10/23/23 Ordered By: Alexis Brian Referrals: Dorita Flaherty FNP [Primary Care Provider] - Discharge Diet: Usual diet Discharge Activity: Increase activity as tolerated Patient Instructions: Hypokalemia (ED) Activity Restrictions/Additional Instructions: Drink plenty water and fluids. Continue with routine medications as directed. Follow-up with primary care in 1 week. Return to ED for new concerns. Coding Level of Care Code ED Diamond Cutter for Marva Bunn
[2023-10-23] MEDS: acetaminophen 500 mg Tablet PO (23:39)
[2023-10-23] MEDS: potassium chloride ER 20 mEq Tablet 40 MEQ PO (23:39)
== END 2023-10-23 23:50 | disposition home or self-care (01) ==
PROVIDERS: Emergency Medicine; Emergency Provider Nurse Practitioner Family; PCP Nurse Practitioner Family
DX: R07.9 Chest pain, unspecified (principal); E87.6 Hypokalemia; Z79.02 Long term (current) use of antithrombotics/antiplatelets; Z79.82 Long term (current) use of aspirin; Z79.4 Long term (current) use of insulin; I25.10 Atherosclerotic heart disease of native coronary artery without angina pectoris; E78.5 Hyperlipidemia, unspecified; I10 Essential (primary) hypertension; E11.9 Type 2 diabetes mellitus without complications
CPT/HCPCS: 36415; 71045; 80053; 84484; 85025; 93005; 99285

== ENCOUNTER 2023-10-26 21:55 | Emergency (ER) | payer MEDICAID, SELFPAY ==
[2023-10-26 22:12] VITALS: BP 160/90; PULSE 72; RESP 16; TEMP 36.9; O2SAT 96; BMI 31.7
--- NOTE | 2023-10-26 22:26 | W.ED.BACK ---
HPI - Back Pain/Injury General: Chief Complaint: Back Pain/Injury Stated Complaint: back left shoulder pain Time Seen by Provider: 10/26/23 22:24 History of Present Illness: 58-year-old male patient comes in today with left shoulder pain with movement, and low back pain. Patient reports that he has had chronic back pain and shoulder pain from caring for his for 20+ years. Patient appears nontoxic. Patient appears no acute distress. Patient moves all extremities well. Review of Systems General: Reports: 10 or more systems reviewed and unremarkable except in HPI and below PFSH ED PFSH: Medical History Acute kidney injury Coronary artery disease Chronic low back pain Dyslipidemia Benign essential hypertension with target blood pressure below 140/90 Type 2 diabetes mellitus Atypical chest pain Epilepsy Obesity Glucose intolerance Smoker Hypothyroidism Surgical History H/O heart artery stent 07/11/2020-Cardiac stent placement mid LAD H/O umbilical hernia repair History of appendectomy Family History Father , at age 74 Family history of premature coronary artery disease Had a myocardial infarction in his 40s. Diabetes CAD (coronary artery disease) Chronic kidney disease (CKD) Stroke Brother Family history of premature coronary artery disease CAD (coronary artery disease) Had [place] in the 50s Diabetes Stroke Grandmother CAD (coronary artery disease) Diabetes Grandfather CAD (coronary artery disease) Mother , at age 84 CAD (coronary artery disease) Cancer Diabetes COVID-19 Family/Other Lung disease Denies family history of Clotting disorder Dementia Suicide Anesthesia complication Bleeding disorder Social History Smoking and tobacco/nicotine status: never used tobacco/nicotine Alcohol intake: current Alcohol intake frequency: holidays/special occasions only Substance/Drug Use: never Household members: spouse Housing: House Marital status: Current occupational status: disabled Physical Exam Const: COMMON NORMALS: alert HENMT: COMMON NORMALS: normocephalic HEAD & SCALP: normocephalic Neck/C-Spine: COMMON NORMALS: full ROM Resp: COMMON NORMALS: normal respiratory effort and clear to auscultation bilaterally AUSCULTATION: clear to auscultation bilaterally Cardio: COMMON NORMALS: regular rate and regular rhythm RATE: regular rate RHYTHM: regular rhythm GI: COMMON NORMALS: Soft to palpation PALPATION: Yes Soft to palpation Back/Pelvis: LUMBAR SPINE/LOWER BACK: Yes paraspinal muscle tenderness Lumbar paraspinal muscle tenderness: left left lumbar paraspinal muscle tenderness: L5 Extremity: LEFT UPPER EXTREMITY: Yes shoulder joint (Posterior tenderness) Neuro: SENSORIUM/ORIENTATION: Yes alert Skin: COMMON NORMALS: turgor normal GENERAL SKIN EXAM: turgor normal Course Vital Signs: Vital signs: Vital Signs Temperature 98.5 F 10/26/23 22:12 Pulse Rate 72 10/26/23 22:12 Respiratory Rate 16 10/26/23 22:12 Blood Pressure 160/90 10/26/23 22:12 Pulse Oximetry 96 10/26/23 22:12 Oxygen Delivery Me thod Room Air 10/26/23 22:12 MDM - Back Pain/Injury Medical Decision Making 58-year-old male patient comes in today for complaints of exacerbation of his chronic back pain. On exam patient appears nontoxic. Patient appears in moderate pain. Patient has tenderness to palpation of the anterior left shoulder. Patient also has tenderness on palpation of the paraspinous muscles of the lower lumbar spine. Decreased range of motion lumbar spine is noted. Patient is ambulatory. Vital signs are normal except for some elevated blood pressure. Differential diagnosis includes chronic back pain, chronic shoulder pain, rotator cuff impingement, muscle strain. Patient was given a dose of Toradol 30 mg and 4 mg of morphine IM. Patient be continued at home on celecoxib. Recommended follow-up with primary care for recheck and consideration of other pain control options. No radiology studies performed this visit Discharge Plan Discharge Patient Disposition: Home Clinical Impression: Back pain Qualifiers: Back pain location: low back pain Chronicity: chronic Back pain laterality: left Sciatica presence: without sciatica Qualified Code(s): M54.50 - Low back pain, unspecified Shoulder arthralgia Qualifiers: Laterality: left Qualified Code(s): M25.512 - Pain in left shoulder Condition: Stable Prescriptions: New celecoxib 100 mg capsule 100 mg PO BID Qty: 20 0RF No Action allopurinol 100 mg tablet 100 mg PO DAILY PRN (Reason: GOUT) (DME) Fast Form Ulnar Gutter See Rx Instructions .Route .MEDSUPPLY Qty: 1 0RF Rx Instructions: As directed insulin glargine 100 unit/mL solution 25 unit SUBCUT DAILY 30 Days Qty: 15 1RF (DME) OneTouch Ultra Test Strip See Rx Instructions .Route Qty: 100 1RF Rx Instructions: As directed patient has one touch ultra 2 glucometer (DME) Dexcom G7 Buffet Attendant Misc See Rx Instructions .Route Qty: 1 0RF Rx Instructions: As directed levothyroxine 150 mcg tablet See Rx Instructions .ROUTE .COMPLEX Qty: 30 0RF Dose Instruction: TAKE 1 CAPSULE BY MOUTH DAILY Rx Instructions: TAKE 1 CAPSULE BY MOUTH DAILY Plavix 75 mg tablet 75 mg PO DAILY@0700 Qty: 90 3RF Rx Instructions: last filled jan 2022 lisinopril 40 mg tablet 40 mg PO DAILY Qty: 90 3RF metoprolol tartrate 25 mg tablet 50 mg PO DAILY Qty: 90 6RF nitroglycerin 0.4 mg tablet, sublingual 0.4 mg SUBLINGUAL Q5M PRN (Reason: chest pain) 30 Days Qty: 30 3RF Rx Instructions: until response; do not exceed 3 doses per episode rosuvastatin 10 mg tablet 10 mg PO DAILY Qty: 90 1RF aspirin 81 mg tablet,chewable 81 mg PO DAILY@0700 Qty: 90 3RF (DME) Dexcom G7 Sensor Device See Rx Instructions .Route Qty: 3 1RF Rx Instructions: As directed levetiracetam 750 mg tablet 1,500 mg PO DAILY diclofenac sodium [Voltaren Arthritis Pain] 1 % gel 4 g topical QID PRN (Reason: Pain) hydrocodone-acetaminophen 5-325 mg tablet 1 tab PO Q8H PRN (Reason: Pain) Tylenol Arthritis Pain 650 mg tablet extended release 1,300 mg PO Q8H PRN (Reason: pain) ([facility]) Blood Glucose Monitoring Kit See Rx Instructions .Route Qty: 1 0RF Rx Instructions: As directed ([facility]) lancets Misc See Rx Instructions .Route Qty: 200 0RF Rx Instructions: As directed ([facility]) Blood Glucose Test Strip See Rx Instructions .Route Qty: 50 0RF Rx Instructions: As directed amoxicillin-pot clavulanate 875-125 mg tablet 1 tab PO BID Qty: 14 0RF bacitracin 500 unit/gram ointment 1 applic topical DAILY Qty: 14 0RF methocarbamol 750 mg tablet 750 mg PO TID PRN (Reason: back pain) Qty: 15 0RF Discharge Orders: Discharge ED (Routine); Ordered 10/26/23 Ordered By: Alexis Brian Referrals: Dorita Flaherty FNP [Primary Care Provider] - Discharge Diet: Usual diet Discharge Activity: Increase activity as tolerated Patient Instructions: Pain Management Activity Restrictions/Additional Instructions: Follow-up with primary care for further evaluation and treatment. Return to ED for new concerns. Coding Level of Care Code ED Medication Specialist for Marva Bunn
[2023-10-26] MEDS: morphine 4 mg/mL SDV 1 mL IM (22:49)
[2023-10-26] MEDS: ketorolac 30 mg/mL INJ IM (22:50)
== END 2023-10-26 22:52 | disposition home or self-care (01) ==
PROVIDERS: Emergency Provider Nurse Practitioner Family; PCP Nurse Practitioner Family
DX: G89.29 Other chronic pain (principal); M54.50 Low back pain, unspecified; M25.512 Pain in left shoulder; Z79.02 Long term (current) use of antithrombotics/antiplatelets; Z79.82 Long term (current) use of aspirin; Z79.4 Long term (current) use of insulin; I25.10 Atherosclerotic heart disease of native coronary artery without angina pectoris; E78.5 Hyperlipidemia, unspecified; I10 Essential (primary) hypertension; E11.9 Type 2 diabetes mellitus without complications
CPT/HCPCS: 96372; 99284; J1885; J2270

== ENCOUNTER 2023-10-27 16:42 | Emergency (ER) | payer MEDICAID, SELFPAY ==
[2023-10-27 16:46] VITALS: BP 136/77; PULSE 71; RESP 16; TEMP 36.6; O2SAT 94
[2023-10-27 17:06] LABS: Glucose Point of Care 338 mg/dL (70-110)
--- NOTE | 2023-10-27 18:51 | ECG_ITS ---
[facility] Test Date: 2023-10-27 Pat Name: Alonso Golden Department: Room: Gender: Male Residential Monitor: : 1965 Requested By: Kerry Jeter Order Number: [id number] Mariaa MD: Gage Noriega M.D. Measurements Intervals [place] Rate: 61 P: 25 NC: 176 QRS: -40 QRSD: 107 T: 63 QT: 461 QTc: 467 Interpretive Statements SINUS RHYTHM LEFT AXIS DEVIATION [QRS AXIS < -30] MODERATE VOLTAGE CRITERIA FOR LVH, CONSIDER NORMAL VARIANT [MEETS CRITERIA IN ONE OF: R(aVL), S(V1), R(V5), R(V5/V6)+S(V1)] POSSIBLE LATERAL MYOCARDIAL INFARCTION , OF INDETERMINATE AGE [30 ms Q WAVE IN I/aVL/V5/V6] Compared to ECG 10/23/2023 20:27:45 Left-axis deviation now present Myocardial infarct finding still present Electronically Signed On 10-31-2023 13:20:26 CDT by Gage Noriega M.D. [id number]
[2023-10-27 19:21] LABS: Basophils # 0.1 10^3/uL (0.0-0.1); Basophils % 1.1 %; Eosinophils # 0.4 10^3/uL (0.0-0.8); Eosinophils % 6.2 %; Hematocrit 39.8 % (37-53); Lymphocytes # 0.9 10^3/uL (0.8-4.8); Lymphocytes % 14.1 %; Mean Corpuscular HGB Conc 34.2 g/dL (30-55); Mean Corpuscular Hemoglobin 30.4 pg (27-33); Mean Corpuscular Volume 88.8 fl (82-101); Mean Platelet Volume 10.2 fL (7.4-10.4); Monocytes # 0.6 10^3/uL (0.2-0.9); Monocytes % 9.7 %; Neutrophils # 4.22 10^3/uL (1.8-7.7); Neutrophils % 68.4 %; Nucleated Red Blood Cells % 0 %; Platelet Count 114 10^3/cmm (157-399); Red Blood Count 4.48 10^6/uL (3.85-5.65); Red Cell Distribution Width 13.2 % (12.1-15.1); White Blood Count 6.17 10^3/uL (3.29-11.43)
--- NOTE | 2023-10-27 19:35 | ED_ITS ---
HPI - Dizziness 2 General: Chief Complaint: Dizziness Stated Complaint: light headedness, nausea Time Seen by Provider: 10/27/23 18:50 Source: patient and EMS Mode of arrival: EMS Limitations: no limitations History of Present Illness: HPI Narrative: 58-year-old male who is very well-known to the ER he states he has been outside a lot today and feels like he has been getting overheated states he had some lightheadedness feeling nauseous and sweaty. He denies passing out denies any headache or chest pain. States he is feeling improved now that he is out of the heat. Associated symptoms: Denies chest pain, chills, headache(s), nausea or vomiting Review of Systems 2 Const: Denies: fever(s), chills, body aches or change in appetite ENMT: Denies: throat pain or dental pain Card: Reports: lightheadedness; Denies: chest pain Resp: Denies: dyspnea GI: Denies: abdominal pain, nausea, vomiting or diarrhea : Denies: dysuria Musc: Denies: neck pain or back pain Skin/Breast: Denies: rash Neuro: Denies: headache(s) PFSH ED 2 PFSH: Medical History Acute kidney injury Coronary artery disease Chronic low back pain Dyslipidemia Benign essential hypertension with target blood pressure below 140/90 Type 2 diabetes mellitus Atypical chest pain Epilepsy Obesity Glucose intolerance Smoker Hypothyroidism Surgical History H/O heart artery stent 07/11/2020-Cardiac stent placement mid LAD H/O umbilical hernia repair History of appendectomy Family History Father , at age 74 Family history of premature coronary artery disease Had a myocardial infarction in his 40s. Diabetes CAD (coronary artery disease) Chronic kidney disease (CKD) Stroke Brother Family history of premature coronary artery disease CAD (coronary artery disease) Had [place] in the 50s Diabetes Stroke Grandmother CAD (coronary artery disease) Diabetes Grandfather CAD (coronary artery disease) Mother , at age 84 CAD (coronary artery disease) Cancer Diabetes COVID-19 Family/Other Lung disease Denies family history of Clotting disorder Dementia Suicide Anesthesia complication Bleeding disorder Social History Smoking and tobacco/nicotine status: never used tobacco/nicotine Alcohol intake: current Alcohol intake frequency: holidays/special occasions only Substance/Drug Use: never Household members: spouse Housing: House Marital status: Current occupational status: disabled Physical Exam 2 Const: COMMON NORMALS: no acute distress, patient oriented x3 and healthy appearing HENMT: COMMON NORMALS: normocephalic and atraumatic HEAD & SCALP: n ormocephalic and atraumatic Eye: COMMON NORMALS: Equal, round and reactive pupils present and EOMs intact bilaterally PUPIL: Yes Equal, round and reactive pupils present Neck/C-Spine: COMMON NORMALS: full ROM and supple Chest: COMMONS NORMALS: normal inspection of the chest Resp: COMMON NORMALS: normal respiratory effort, No retractions, No use of accessory muscles and clear to auscultation bilaterally AUSCULTATION: clear to auscultation bilaterally Cardio: COMMON NORMALS: regular rate, regular rhythm and No murmurs present (Cardio) RATE: regular rate RHYTHM: regular rhythm GI: COMMON NORMALS: Normal to inspection, nondistended, normoactive bowel sounds present, Soft to palpation, non-tender and no masses PALPATION: Yes Soft to palpation Extremity: COMMON NORMALS: normal to inspection and full ROM Neuro: COMMON NORMALS: patient oriented x3, moves all extremities and no focal motor deficits Psych: COMMON NORMALS: mental status grossly normal, Normal thought process present and cooperative THOUGHT PROCESS: Normal thought process present Skin: COMMON NORMALS: no rashes or lesions noted and no wounds GENERAL SKIN EXAM: no rashes or lesions noted Course 2 Vital Signs: Vital signs: Vital Signs Temperature 97.8 F 10/27/23 20:48 Pulse Rate 61 10/27/23 20:48 Respiratory Rate 16 10/27/23 20:48 Blood Pressure 149/90 10/27/23 20:48 Pulse Oximetry 97 10/27/23 20:48 Oxygen Delivery Me thod Room Air 10/27/23 20:00 MDM - Dizziness Medical Decision Making Patient presents here with some dizziness heat exposure he is well-appearing here blood works all normal he stable for discharge she is follow-up with PCP and return if worsening he understands agrees to plan. Medical Records I reviewed the patient's medical records. Lab Data I reviewed the patient's lab results. 10/27/23 19:05 10/27/23 19:05 Laboratory Results WBC 6.17 10^3/uL (3.29-11.43) 10/27/23 19:05 RBC 4.48 10^6/uL (3.85-5.65) 10/27/23 19:05 Hgb 13.60 g/dL (11.27-16.99) 10/27/23 19:05 Hct 39.8 % (37-53) 10/27/23 19:05 MCV 88.8 fl (82-101) 10/27/23 19:05 MCH 30.4 pg (27-33) 10/27/23 19:05 MCHC 34.2 g/dL (30-55) 10/27/23 19:05 RDW 13.2 % (12.1-15.1) 10/27/23 19:05 Plt Count 114 10^3/cmm (157-399) L 10/27/23 19:05 MPV 10.2 fL (7.4-10.4) 10/27/23 19:05 Neut % (Auto) 68.4 % 10/27/23 19:05 Lymph % (Auto) 14.1 % 10/27/23 19:05 [place] % (Auto) 9.7 % 10/27/23 19:05 Eos % (Auto) 6.2 % 10/27/23 19:05 Baso % (Auto) 1.1 % 10/27/23 19:05 Neut # (Auto) 4.22 10^3/uL (1.8-7.7) 10/27/23 19:05 Lymph # (Auto) 0.9 10^3/uL (0.8-4.8) 10/27/23 19:05 [place] # (Auto) 0.6 10^3/uL (0.2-0.9) 10/27/23 19:05 Eos # (Auto) 0.4 10^3/uL (0.0-0.8) 10/27/23 19:05 Baso # (Auto) 0.1 10^3/uL (0.0-0.1) 10/27/23 19:05 Nucleated RBC % (auto) 0 % 10/27/23 19:05 Nucleated RBCs # 0.0 /100WBC 10/27/23 19:05 Sodium 142 mmol/L (136-145) 10/27/23 19:05 Potassium 3.4 mmol/L (3.5-5.1) L 10/27/23 19:05 Chloride 106 mmol/L (98-107) 10/27/23 19:05 Carbon Dioxide 29 mmol/L (22-29) 10/27/23 19:05 Anion Gap 10.4 (5-19) 10/27/23 19:05 BUN 12 mg/dL (6-20) 10/27/23 19:05 Creatinine 1.0 mg/dL (0.7-1.2) 10/27/23 19:05 GFR Calculation 77.3 mL/min (90-130) L 10/27/23 19:05 Glucose 238 mg/dL (65-115) H 10/27/23 19:05 POC Glucose 338 mg/dL (70-110) H 10/27/23 17:05 Calculated Osmolality 302 mOsm/kg (285-295) H 10/27/23 19:05 Calcium 8.8 mg/dL (8.5-10.5) 10/27/23 19:05 Total Bilirubin 1.1 mg/dL (0.15-1.2) 10/27/23 19:05 AST 27 U/L (0-40) 10/27/23 19:05 ALT 14 U/L (0-41) 10/27/23 19:05 Alkaline Phosphatase 128 U/L (40-130) 10/27/23 19:05 Total Protein 7.4 g/dL (6.6-8.7) 10/27/23 19:05 Albumin 3.8 g/dL (3.5-5.2) 10/27/23 19:05 Globulin 3.6 g/dL (1.3-4.6) 10/27/23 19:05 No radiology studies performed this visit EKG Data EKG 1: I personally reviewed and interpreted this EKG as follows: EKG interpretation date: 10/27/23 EKG interpretation time: 19:40 Interpretation: nsr hr [address] or t wave abnormalities qrs 107 qtc 465 Discharge Plan Discharge Patient Disposition: Home Clinical Impression: Dizziness Condition: Stable Prescriptions: No Action allopurinol 100 mg tablet 100 mg PO DAILY PRN (Reason: GOUT) (DME) Fast Form Ulnar Gutter See Rx Instructions .Route .MEDSUPPLY Qty: 1 0RF Rx Instructions: As directed insulin glargine 100 unit/mL solution 25 unit SUBCUT DAILY 30 Days Qty: 15 1RF ([facility]) OneTouch Ultra Test Strip See Rx Instructions .Route Qty: 100 1RF Rx Instructions: As directed patient has one touch ultra 2 glucometer ([facility]) Dexcom G7 [place] Misc See Rx Instructions .Route Qty: 1 0RF Rx Instructions: As directed levothyroxine 150 mcg tablet See Rx Instructions .ROUTE .COMPLEX Qty: 30 0RF Dose Instruction: TAKE 1 CAPSULE BY MOUTH DAILY Rx Instructions: TAKE 1 CAPSULE BY MOUTH DAILY Plavix 75 mg tablet 75 mg PO DAILY@0700 Qty: 90 3RF Rx Instructions: last filled jan 2022 lisinopril 40 mg tablet 40 mg PO DAILY Qty: 90 3RF metoprolol tartrate 25 mg tablet 50 mg PO DAILY Qty: 90 6RF nitroglycerin 0.4 mg tablet, sublingual 0.4 mg SUBLINGUAL Q5M PRN (Reason: chest pain) 30 Days Qty: 30 3RF Rx Instructions: until response; do not exceed 3 doses per episode rosuvastatin 10 mg tablet 10 mg PO DAILY Qty: 90 1RF aspirin 81 mg tablet,chewable 81 mg PO DAILY@0700 Qty: 90 3RF ([facility]) Dexcom G7 Sensor Device See Rx Instructions .Route Qty: 3 1RF Rx Instructions: As directed levetiracetam 750 mg tablet 1,500 mg PO DAILY diclofenac sodium [Voltaren Arthritis Pain] 1 % gel 4 g topical QID PRN (Reason: Pain) hydrocodone-acetaminophen 5-325 mg tablet 1 tab PO Q8H PRN (Reason: Pain) Tylenol Arthritis Pain 650 mg tablet extended release 1,300 mg PO Q8H PRN (Reason: pain) ([facility]) Blood Glucose Monitoring Kit See Rx Instructions .Route Qty: 1 0RF Rx Instructions: As directed ([facility]) lancets Misc See Rx Instructions .Route Qty: 200 0RF Rx Instructions: As directed ([facility]) Blood Glucose Test Strip See Rx Instructions .Route Qty: 50 0RF Rx Instructions: As directed amoxicillin-pot clavulanate 875-125 mg tablet 1 tab PO BID Qty: 14 0RF bacitracin 500 unit/gram ointment 1 applic topical DAILY Qty: 14 0RF celecoxib 100 mg capsule 100 mg PO BID Qty: 20 0RF methocarbamol 750 mg tablet 750 mg PO TID PRN (Reason: back pain) Qty: 15 0RF Discharge Orders: Discharge ED (Routine); Ordered 10/27/23 Ordered By: Kerry Jeter Referrals: Dorita Flaherty FNP [Primary Care Provider] - 4-7 days Discharge Diet: Advance as tolerated Discharge Activity: Resume usual activity Patient Instructions: Dizziness (ED) Coding Level of Care Code ED Surgical Product Sales Consultant for Marva Bunn
[2023-10-27 19:36] LABS: Alanine Aminotransferase 14 U/L (0-41); Albumin Level 3.8 g/dL (3.5-5.2); Alkaline Phosphatase 128 U/L (40-130); Anion Gap 10.4 (5-19); Aspartate Amino Transferase 27 U/L (0-40); Blood Urea Nitrogen 12 mg/dL (6-20); Calcium 8.8 mg/dL (8.5-10.5); Carbon Dioxide 29 mmol/L (22-29); Chloride 106 mmol/L (98-107); Creatinine Clr Calc Pharmacy 97.8805; Globulin 3.6 g/dL (1.3-4.6); Glomerular Filtration Rate 77.3 mL/min (90-130); Glucose 238 mg/dL (65-115); Osmolality Calculated 302 mOsm/kg (285-295); Potassium 3.4 mmol/L (3.5-5.1); Sodium 142 mmol/L (136-145); Total Bilirubin 1.1 mg/dL (0.15-1.2); Total Protein 7.4 g/dL (6.6-8.7)
[2023-10-27] MEDS: sodium chloride 0.9% 1,000 ML 999 ML IV (19:45)
[2023-10-27 20:00] VITALS: BP 132/78; PULSE 62; RESP 16; O2SAT 98
[2023-10-27] MEDS: ketorolac 30 mg/mL INJ 15 MG IVP (20:28)
[2023-10-27] MEDS: acetaminophen 325 mg Tablet 650 MG PO (20:28)
[2023-10-27 20:48] VITALS: BP 149/90; PULSE 61; RESP 16; TEMP 36.6; O2SAT 97
== END 2023-10-27 20:48 | disposition home or self-care (01) ==
PROVIDERS: Emergency Provider Emergency Medicine; PCP Nurse Practitioner Family
DX: R42 Dizziness and giddiness (principal); Z79.02 Long term (current) use of antithrombotics/antiplatelets; Z79.82 Long term (current) use of aspirin; Z79.4 Long term (current) use of insulin; I25.10 Atherosclerotic heart disease of native coronary artery without angina pectoris; E78.5 Hyperlipidemia, unspecified; I10 Essential (primary) hypertension; E11.9 Type 2 diabetes mellitus without complications
CPT/HCPCS: 36415; 36416; 80053; 82962; 85025; 93005; 96361; 96374; 99284; J1885; J7030

== ENCOUNTER 2023-10-30 15:12 | Emergency (ER) | payer MEDICAID, SELFPAY ==
[2023-10-30 15:14] VITALS: BP 153/89; PULSE 67; RESP 20; TEMP 36.9; O2SAT 97; BMI 31.7
--- NOTE | 2023-10-30 15:48 | W.ED.EXTPRO ---
HPI - Extremity Problem General: Chief complaint: Extremity Problem,Nontraumatic Stated complaint: right knee pain, swollen Time Seen by Provider: 10/30/23 15:39 History of Present Illness: 58-year-old male patient comes in today with complaints of right knee pain. Patient denies any injury. Patient does have known problems to both knees. Patient saw Dr. Iker Villalobos earlier this year and was diagnosed with meniscal injury and degeneration of the knee. Review of Systems General: Reports: 10 or more systems reviewed and unremarkable except in HPI and below Musc: Reports: joint pain PFSH ED PFSH: Medical History Acute kidney injury Coronary artery disease Chronic low back pain Dyslipidemia Benign essential hypertension with target blood pressure below 140/90 Type 2 diabetes mellitus Atypical chest pain Epilepsy Obesity Glucose intolerance Smoker Hypothyroidism Surgical History H/O heart artery stent 07/11/2020-Cardiac stent placement mid LAD H/O umbilical hernia repair History of appendectomy Family History Father , at age 74 Family history of premature coronary artery disease Had a myocardial infarction in his 40s. Diabetes CAD (coronary artery disease) Chronic kidney disease (CKD) Stroke Brother Family history of premature coronary artery disease CAD (coronary artery disease) Had [place] in the 50s Diabetes Stroke Grandmother CAD (coronary artery disease) Diabetes Grandfather CAD (coronary artery disease) Mother , at age 84 CAD (coronary artery disease) Cancer Diabetes COVID-19 Family/Other Lung disease Denies family history of Clotting disorder Dementia Suicide Anesthesia complication Bleeding disorder Social History Smoking and tobacco/nicotine status: never used tobacco/nicotine Alcohol intake: current Alcohol intake frequency: holidays/special occasions only Substance/Drug Use: never Household members: spouse Housing: House Marital status: Current occupational status: disabled Physical Exam Const: COMMON NORMALS: alert HENMT: COMMON NORMALS: normocephalic HEAD & SCALP: normocephalic Neck/C-Spine: COMMON NORMALS: full ROM Resp: COMMON NORMALS: normal respiratory effort Cardio: COMMON NORMALS: regular rate RATE: regular rate Back/Pelvis: COMMON NORMALS: thoracic and lumbar spine normal to inspection Extremity: NARRATIVE EXTREMITY EXAM: No redness or significant swelling is noted to either knee. Neuro: SENSORIUM/ORIENTATION: Yes alert Skin: COMMON NORMALS: turgor normal GENERAL SKIN EXAM: turgor normal Course Vital Signs: Vital signs: Vital Signs Temperature 98.4 F 10/30/23 15:14 Pulse Rate 67 10/30/23 15:14 Respiratory Rate 20 H 10/30/23 15:14 Blood Pressure 153/89 10/30/23 15:14 Pulse Oximetry 97 10/30/23 15:14 Oxygen Delivery Me thod Room Air 10/30/23 15:14 MDM - Extremity (Nontraumatic) Medical Decision Making Patient presents today with complaints of right knee pain. Reviewing the record notes that this seems to be more of a chronic problem than a new problem. Patient has no new injury. MRI notes some deterioration/injury of the meniscus. X-ray nose bilateral medial compartment syndrome of the knee. Differential diagnosis includes but not limited to meniscal injury of the knee, arthritis of the knee, malingering, bursitis. No signs of infection or illnesses noted. Reviewed exam with patient with recommendation for treatment and follow-up. Patient reported understanding and agreed to plan. No radiology studies performed this visit Discharge Plan Discharge Patient Disposition: Home Clinical Impression: Arthralgia of knee, right Osteoarthritis of both knees Qualifiers: Osteoarthritis type: unspecified Qualified Code(s): M17.0 - Bilateral primary osteoarthritis of knee Condition: Stable Prescriptions: No Action allopurinol 100 mg tablet 100 mg PO DAILY PRN (Reason: GOUT) (DME) Fast Form Ulnar Gutter See Rx Instructions .Route .MEDSUPPLY Qty: 1 0RF Rx Instructions: As directed insulin glargine 100 unit/mL solution 25 unit SUBCUT DAILY 30 Days Qty: 15 1RF (DME) OneTouch Ultra Test Strip See Rx Instructions .Route Qty: 100 1RF Rx Instructions: As directed patient has one touch ultra 2 glucometer ([facility]) Dexcom G7 Staff Registered Nurse Misc See Rx Instructions .Route Qty: 1 0RF Rx Instructions: As directed levothyroxine 150 mcg tablet See Rx Instructions .ROUTE .COMPLEX Qty: 30 0RF Dose Instruction: TAKE 1 CAPSULE BY MOUTH DAILY Rx Instructions: TAKE 1 CAPSULE BY MOUTH DAILY Plavix 75 mg tablet 75 mg PO DAILY@0700 Qty: 90 3RF Rx Instructions: last filled jan 2022 lisinopril 40 mg tablet 40 mg PO DAILY Qty: 90 3RF metoprolol tartrate 25 mg tablet 50 mg PO DAILY Qty: 90 6RF nitroglycerin 0.4 mg tablet, sublingual 0.4 mg SUBLINGUAL Q5M PRN (Reason: chest pain) 30 Days Qty: 30 3RF Rx Instructions: until response; do not exceed 3 doses per episode rosuvastatin 10 mg tablet 10 mg PO DAILY Qty: 90 1RF aspirin 81 mg tablet,chewable 81 mg PO DAILY@0700 Qty: 90 3RF (DME) Dexcom G7 Sensor Device See Rx Instructions .Route Qty: 3 1RF Rx Instructions: As directed levetiracetam 750 mg tablet 1,500 mg PO DAILY diclofenac sodium [Voltaren Arthritis Pain] 1 % gel 4 g topical QID PRN (Reason: Pain) hydrocodone-acetaminophen 5-325 mg tablet 1 tab PO Q8H PRN (Reason: Pain) Tylenol Arthritis Pain 650 mg tablet extended release 1,300 mg PO Q8H PRN (Reason: pain) (DME) Blood Glucose Monitoring Kit See Rx Instructions .Route Qty: 1 0RF Rx Instructions: As directed (DME) lancets Misc See Rx Instructions .Route Qty: 200 0RF Rx Instructions: As directed (DME) Blood Glucose Test Strip See Rx Instructions .Route Qty: 50 0RF Rx Instructions: As directed amoxicillin-pot clavulanate 875-125 mg tablet 1 tab PO BID Qty: 14 0RF bacitracin 500 unit/gram ointment 1 applic topical DAILY Qty: 14 0RF celecoxib 100 mg capsule 100 mg PO BID Qty: 20 0RF methocarbamol 750 mg tablet 750 mg PO TID PRN (Reason: back pain) Qty: 15 0RF Discharge Orders: Discharge ED (Routine); Ordered 10/30/23 Ordered By: Alexis Brian Referrals: Dorita Flaherty FNP [Primary Care Provider] - Patient Instructions: Opioid Safety, Pain Management Activity Restrictions/Additional Instructions: Home and rest. Activity as tolerated. Continue with routine medications for pain. Follow-up with orthopedic, Dr. Villalobos, for further treatment and further evaluation. Call his office to get appointment follow-up. Coding Level of Care Code ED Pressroom Supervisor for Chg Fwd
[2023-10-30] MEDS: ketorolac 30 mg/mL INJ IM (15:56)
[2023-10-30 16:06] VITALS: BP 146/87; PULSE 51; RESP 16; TEMP 36.9; O2SAT 96
== END 2023-10-30 15:58 | disposition home or self-care (01) ==
PROVIDERS: Emergency Provider Nurse Practitioner Family; PCP Nurse Practitioner Family
DX: M17.0 Bilateral primary osteoarthritis of knee (principal); Z79.82 Long term (current) use of aspirin; Z79.02 Long term (current) use of antithrombotics/antiplatelets; Z79.4 Long term (current) use of insulin; I25.10 Atherosclerotic heart disease of native coronary artery without angina pectoris; E78.5 Hyperlipidemia, unspecified; I10 Essential (primary) hypertension; E11.9 Type 2 diabetes mellitus without complications
CPT/HCPCS: 96372; 99284; J1885

== ENCOUNTER 2023-10-31 18:36 | Emergency (ER) | payer MEDICAID, SELFPAY ==
[2023-10-31] VITALS (7 sets, daily range): BP systolic 147–160; BP diastolic 83–113; PULSE 65–71; RESP 13–16; TEMP 37.1; O2SAT 94–97
--- NOTE | 2023-10-31 19:44 | CTR_ITS ---
PROCEDURE INFORMATION: Exam: CT Head Without Contrast Exam date and time: 10/31/2023 7:52 PM Age: 58 years old Clinical indication: Condition or disease; Convulsions or seizures; Patient HX: EMS arrival for unwitnessed seizure; Additional info: Reported seizure TECHNIQUE: Imaging protocol: Computed tomography of the head without contrast. Radiation optimization: All CT scans at this facility use at least one of these dose optimization techniques: automated exposure control; mA and/or kV adjustment per patient size (includes targeted exams where dose is matched to clinical indication); or iterative reconstruction. COMPARISON: No relevant prior studies available. RADIATION DOSE METRICS: Total DLP (mGy-cm): 982.29 FINDINGS: Brain: No hemorrhage. No edema. Mild diffuse cerebral atrophy and sequela of chronic small vessel ischemic disease. No mass effect. Cerebral ventricles: No ventriculomegaly. Paranasal sinuses: Visualized sinuses are unremarkable. No fluid levels. Mastoid air cells: Visualized mastoid air cells are well aerated. Bones: Unremarkable. No acute fracture. Soft tissues: Unremarkable. CT/CT head wo con* [id number] IMPRESSION: No acute intracranial abnormality.
[2023-10-31 19:54] LABS: Basophils # 0.1 10^3/uL (0.0-0.1); Basophils % 1.1 %; Eosinophils # 0.4 10^3/uL (0.0-0.8); Eosinophils % 4.8 %; Hematocrit 42.7 % (37-53); Lymphocytes # 1.2 10^3/uL (0.8-4.8); Lymphocytes % 13.9 %; Mean Corpuscular HGB Conc 34.4 g/dL (30-55); Mean Corpuscular Hemoglobin 30.4 pg (27-33); Mean Corpuscular Volume 88.2 fl (82-101); Mean Platelet Volume 10.6 fL (7.4-10.4); Monocytes # 0.7 10^3/uL (0.2-0.9); Monocytes % 8.1 %; Neutrophils # 6.02 10^3/uL (1.8-7.7); Neutrophils % 71.5 %; Nucleated Red Blood Cells % 0 %; Platelet Count 127 10^3/cmm (157-399); Red Blood Count 4.84 10^6/uL (3.85-5.65); Red Cell Distribution Width 13.5 % (12.1-15.1); White Blood Count 8.41 10^3/uL (3.29-11.43)
--- NOTE | 2023-10-31 19:56 | ED_ITS ---
HPI - Seizure 2 General: Chief Complaint: Seizure Stated Complaint: seizure Time Seen by Provider: 10/31/23 19:34 Source: patient Mode of arrival: EMS Limitations: no limitations History of Present Illness: HPI Narrative: Patient is a 58-year-old male with multiple recent ER visits who presents to the emergency department via ambulance complaining of a seizure just prior to arrival. Patient does take Keppra daily, and states he has not had a seizure in 20 years. The reported seizure was not witnessed, patient is just worried that he had 1 because in the past when he has had a seizure he gets diffuse bodyaches. He states that he went out for an unknown amount of time and woke up with the body aches. He denies any recent medication changes and states he has been taking his Keppra as normal. He denies any visual changes, headaches, or other neurological symptoms at this time. He does not appear to be in any postictal state at this time, and he arrives with normal vitals to the triage. No other symptoms reported at this time as his only complaint is diffuse myalgias. Nothing given per EMS. Patient does see Dr. Parkinson, neurologist, but states he has not seen her in some time. MD complaint: possible seizure Onset (ago): minute(s) Description of Episode: other (Unknown) Witnessed: No Trauma: No Seizure History: Yes Place: Home Possible Precipitating Event: none Associated symptoms: Reports other (Myalgias); Deny chest pain, chills or fever(s) Treatments prior to arrival: other (Prescribed Keppra) Review of Systems 2 General: Reports: 10 or more systems reviewed and unremarkable except in HPI and below Const: Denies: fever(s), chills or fatigue Eyes: Denies: change in vision ENMT: Denies: throat pain, ear or mastoid pain or nasal discharge Card: Denies: chest pain, palpitations, swelling of feet/ankles or lightheadedness Resp: Denies: dyspnea, productive cough or wheezing GI: Denies: abdominal pain, nausea, vomiting, diarrhea or constipation : Denies: flank pain, difficulty urinating, dysuria or urinary frequency Musc: Reports: other (Diffuse myalgias) Skin/Breast: Denies: rash Neuro: Reports: seizure-like activity (Reported); Denies: headache(s), numbness in extremities, weakness in extremities, sensory changes, frequent falls, dizziness, behavioral changes or Slurred speech present PFSH ED 2 PFSH: Medical History Acute kidney injury Coronary artery disease Chronic low back pain Dyslipidemia Benign essential hypertension with target blood pressure below 140/90 Type 2 diabetes mellitus Atypical chest pain Epilepsy Obesity Glucose intolerance Smoker Hypothyroidism Surgical History H/O heart artery stent 07/11/2020-Cardiac stent placement mid LAD H/O umbilical hernia repair History of appendectomy Family History Father , at age 74 Family history of premature coronary artery disease Had a myocardial infarction in his 40s. Diabetes CAD (coronary artery disease) Chronic kidney disease (CKD) Stroke Brother Family history of premature coronary artery disease CAD (coronary artery disease) Had [place] in the 50s Diabetes Stroke Grandmother CAD (coronary artery disease) Diabetes Grandfather CAD (coronary artery disease) Mother , at age 84 CAD (coronary artery disease) Cancer Diabetes COVID-19 Family/Other Lung disease Denies family history of Clotting disorder Dementia Suicide Anesthesia complication Bleeding disorder Social History Smoking and tobacco/nicotine status: never used tobacco/nicotine Alcohol intake: current Alcohol intake frequency: holidays/special occasions only Substance/Drug Use: never Household members: spouse Housing: House Marital status: Current occupational status: disabled Physical Exam 2 Const: COMMON NORMALS: no acute distress, patient oriented x3 and no limitations GENERAL APPEARANCE: cooperative, comfortable and well developed ORIENTATION/CONSCIOUSNESS: Yes awake, Yes oriented to person, Yes oriented to place and Yes oriented to time HENMT: COMMON NORMALS: normocephalic, atraumatic and hearing grossly normal bilaterally HEAD & SCALP: normocephalic and atraumatic OTHER: No evidence of tongue biting or other oropharyngeal bleeding Eye: COMMON NORMALS: Equal, round and reactive pupils present, EOMs intact bilaterally and conjunctivae normal CONJUNCTIVA: Yes conjunctivae normal P UPIL: Yes Equal, round and reactive pupils present Neck/C-Spine: COMMON NORMALS: full ROM, supple and no JVD Resp: COMMON NORMALS: normal respiratory effort, No retractions, No use of accessory muscles and clear to auscultation bilaterally AUSCULTATION: clear to auscultation bilaterally Cardio: COMMON NORMALS: no JVD, regular rate, regular rhythm, No clicks present (Cardio), No murmurs present (Cardio) and No rub (Cardio) RATE: r egular rate RHYTHM: regular rhythm GI: COMMON NORMALS: Normal to inspection, nondistended, normoactive bowel sounds present, Soft to palpation and non-tender AUSCULTATION: Yes normoactive bowel sounds PALPATION: Yes Soft to palpation RECTAL EXAM: Yes deferred Back/Pelvis: COMMON NORMALS: thoracic and lumbar spine normal to inspection, no thoracic nor lumbar tenderness and thoraco-lumbar ROM normal Extremity: COMMON NORMALS: normal to inspection, full ROM and capillary refill normal NARRATIVE EXTREMITY EXAM: No evidence of injury Neuro: COMMON NORMALS: patient oriented x3, CN's II-XII intact bilaterally, moves all extremities, no focal motor deficits and no sensory deficits noted SENSORIUM/ORIENTATION: Yes oriented to person, Yes oriented to place and Yes oriented to time MOTOR EXAM: 5/5 motor strength present throughout, Pronator motor function not present, no tremor noted, no asterixis and Motor fasciculations not present Psych: COMMON NORMALS: mental status grossly normal and Normal thought process present THOUGHT PROCESS: Normal thought process present Skin: COMMON NORMALS: no rashes or lesions noted GENERAL SKIN EXAM: no rashes or lesions noted Course 2 Vital Signs: Vital signs: Vital Signs Temperature 98.7 F 10/31/23 18:37 Pulse Rate 71 10/31/23 18:37 Respiratory Rate 14 10/31/23 18:37 Blood Pressure 154/113 10/31/23 18:37 Pulse Oximetry 94 10/31/23 18:37 Oxygen Delivery Me thod Room Air 10/31/23 18:37 MDM - Seizure MDM Narrative Medical decision making narrative: Patient was brought in by ambulance for a reported seizure, unwitnessed. Patient noted that he had myalgias randomly, which has occurred in the past following a seizure. He has numerous recent emergency department visits, all of which have rendered unremarkable workups. He does see neurology and is on Keppra currently, does not report any changes to this. His physical examination was all unremarkable including negative neurological examination. Head CT unremarkable. All of his blood work was baseline compared to previous, and urinalysis did not reveal any signs of infection. He has remained comfortable throughout his ED stay and vitals have been unremarkable. He has requested multiple times something for pain, of which I gave IV Toradol. He will be discharged home with instructions to call Dr. Parkinson's office to schedule an appointment for next week. Reasons to return were discussed. This case was discussed with supervising ED physician, Dr. Harrison, who agrees with disposition of patient. Lab Data 10/31/23 18:25 10/31/23 18:25 Labs: Radiology Impressions Head CT 10/31/23 19:44 IMPRESSION: No acute intracranial abnormality. Laboratory Results WBC 8.41 10^3/uL (3.29-11.43) 10/31/23 18: RBC 4.84 10^6/uL (3.85-5.65) 10/31/23 18: Hgb 14.70 g/dL (11.27-16.99) 10/31/23 18: Hct 42.7 % (37-53) 10/31/23 18: MCV 88.2 fl (82-101) 10/31/23 18: MCH 30.4 pg (27-33) 10/31/23 18: MCHC 34.4 g/dL (30-55) 10/31/23 18: RDW 13.5 % (12.1-15.1) 10/31/23 18: Plt Count 127 10^3/cmm (157-399) L 10/31/23: MPV 10.6 fL (7.4-10.4) H 10/31/23 18: Neut % (Auto) 71.5 % 10/31/23 18: Lymph % (Auto) 13.9 % 10/31/23 18: Pope % (Auto) 8.1 % 10/31/23 18: Eos % (Auto) 4.8 % 10/31/23 18: Baso % (Auto) 1.1 % 10/31/23 18: Neut # (Auto) 6.02 10^3/uL (1.8-7.7) 10/31/23 18: Lymph # (Auto) 1.2 10^3/uL (0.8-4.8) 10/31/23 18:25 Pope # (Auto) 0.7 10^3/uL (0.2-0.9) 10/31/23 18:25 Eos # (Auto) 0.4 10^3/uL (0.0-0.8) 10/31/23 18:25 Baso # (Auto) 0.1 10^3/uL (0.0-0.1) 10/31/23 18:25 Nucleated RBC % (auto) 0 % 10/31/23 18:25 Nucleated RBCs # 0.0 /100WBC 10/31/23 18:25 Sodium 140 mmol/L (136-145) 10/31/23 18:25 Potassium 3.2 mmol/L (3.5-5.1) L 10/31/23 18:25 Chloride 101 mmol/L (98-107) 10/31/23 18:25 Carbon Dioxide 28 mmol/L (22-29) 10/31/23 18:25 Anion Gap 14.2 (5-19) 10/31/23 18:25 BUN 17 mg/dL (6-20) 10/31/23 18:25 Creatinine 1.0 mg/dL (0.7-1.2) 10/31/23 18:25 GFR Calculation 77.3 mL/min (90-130) L 10/31/23 18:25 Glucose 135 mg/dL (65-115) H 10/31/23 18:25 Calculated Osmolality 294 mOsm/kg (285-295) 10/31/23 18:25 Calcium 9.7 mg/dL (8.5-10.5) 10/31/23 18:25 Magnesium 1.4 mg/dL (1.7-2.3) L 10/31/23 18:25 Total Bilirubin 1.9 mg/dL (0.15-1.2) H 10/31/23 18:25 AST 30 U/L (0-40) 10/31/23 18:25 ALT 17 U/L (0-41) 10/31/23 18:25 Alkaline Phosphatase 136 U/L (40-130) H 10/31/23 18:25 Total Protein 7.9 g/dL (6.6-8.7) 10/31/23 18:25 Albumin 4.0 g/dL (3.5-5.2) 10/31/23 18:25 Globulin 3.9 g/dL (1.3-4.6) 10/31/23 18:25 Urine Color Dark yellow (Yellow) 10/31/23 21:09 Urine Appearance Clear (CLEAR) 10/31/23 21:09 Urine pH 6.5 (5-7) 10/31/23 21:09 Ur Specific [place] 1.010 (1.005-1.030) 10/31/23 21:09 Urine Protein Trace (Negative) 10/31/23 21:09 Urine Glucose (UA) Norm (Normal) 10/31/23 21:09 Urine Ketones Negative (Negative) 10/31/23 21:09 Urine Blood Neg (Negative) 10/31/23 21:09 Urine Nitrate Negative (Negative) 10/31/23 21:09 Urine Bilirubin Neg (Negative) 10/31/23 21:09 Urine Urobilinogen 8 mg/dL (Negative) H 10/31/23 21:09 Ur Leukocyte Esterase Negative (Negative) 10/31/23 21:09 Urine RBC 5-10 /hpf (0-2) H 10/31/23 21:09 Urine WBC 0-4 /hpf (0-5) H 10/31/23 21:09 Ur Squamous Epith Cells 0-4 /hpf (0-5) H 10/31/23 21:09 Amorphous Sediment Not Reportable 10/31/23 21:09 Urine Bacteria Trace /hpf (NONE) 10/31/23 21:09 Urine Opiates Screen Negative ng/mL (Negative) 10/31/23 21:09 Ur Barbiturates Screen Negative ng/mL (Negative) 10/31/23 21:09 Ur Phencyclidine Scrn Negative ng/mL (Negative) 10/31/23 21:09 Ur Amphetamines Screen Negative ng/mL (Negative) 10/31/23 21:09 U Benzodiazepines Scrn Negative ng/mL (Negative) 10/31/23 21:09 Urine Cocaine Screen Negative ng/mL (Negative) 10/31/23 21:09 U Marijuana (THC) Screen Negative ng/mL (Negative) 10/31/23 21:09 All radiology interpretation(s) finalized by discharge Discharge Plan Discharge Patient Disposition: Home Clinical Impression: Epilepsy Qualifiers: Epilepsy type: unspecified Intractability: intractable Status epilepticus: w ithout status epilepticus Qualified Code(s): G40.919 - Epilepsy, unspecified, intractable, without status epilepticus Condition: Stable Prescriptions: No Action allopurinol 100 mg tablet 100 mg PO DAILY PRN (Reason: GOUT) (DME) Fast Form Ulnar Gutter See Rx Instructions .Route .MEDSUPPLY Qty: 1 0RF Rx Instructions: As directed insulin glargine 100 unit/mL solution 25 unit SUBCUT DAILY 30 Days Qty: 15 1RF ([facility]) OneTouch Ultra Test Strip See Rx Instructions .Route Qty: 100 1RF Rx Instructions: As directed patient has one touch ultra 2 glucometer ([facility]) Dexcom G7 Data Programmer Misc See Rx Instructions .Route Qty: 1 0RF Rx Instructions: As directed levothyroxine 150 mcg tablet See Rx Instructions .ROUTE .COMPLEX Qty: 30 0RF Dose Instruction: TAKE 1 CAPSULE BY MOUTH DAILY Rx Instructions: TAKE 1 CAPSULE BY MOUTH DAILY Plavix 75 mg tablet 75 mg PO DAILY@0700 Qty: 90 3RF Rx Instructions: last filled jan 2022 lisinopril 40 mg tablet 40 mg PO DAILY Qty: 90 3RF metoprolol tartrate 25 mg tablet 50 mg PO DAILY Qty: 90 6RF nitroglycerin 0.4 mg tablet, sublingual 0.4 mg SUBLINGUAL Q5M PRN (Reason: chest pain) 30 Days Qty: 30 3RF Rx Instructions: until response; do not exceed 3 doses per episode rosuvastatin 10 mg tablet 10 mg PO DAILY Qty: 90 1RF aspirin 81 mg tablet,chewable 81 mg PO DAILY@0700 Qty: 90 3RF ([facility]) Dexcom G7 Sensor Device See Rx Instructions .Route Qty: 3 1RF Rx Instructions: As directed levetiracetam 750 mg tablet 1,500 mg PO DAILY diclofenac sodium [Voltaren Arthritis Pain] 1 % gel 4 g topical QID PRN (Reason: Pain) hydrocodone-acetaminophen 5-325 mg tablet 1 tab PO Q8H PRN (Reason: Pain) Tylenol Arthritis Pain 650 mg tablet extended release 1,300 mg PO Q8H PRN (Reason: pain) ([facility]) Blood Glucose Monitoring Kit See Rx Instructions .Route Qty: 1 0RF Rx Instructions: As directed (DME) lancets Misc See Rx Instructions .Route Qty: 200 0RF Rx Instructions: As directed (DME) Blood Glucose Test Strip See Rx Instructions .Route Qty: 50 0RF Rx Instructions: As directed amoxicillin-pot clavulanate 875-125 mg tablet 1 tab PO BID Qty: 14 0RF bacitracin 500 unit/gram ointment 1 applic topical DAILY Qty: 14 0RF celecoxib 100 mg capsule 100 mg PO BID Qty: 20 0RF methocarbamol 750 mg tablet 750 mg PO TID PRN (Reason: back pain) Qty: 15 0RF Discharge Orders: Discharge ED (Routine); Ordered 10/31/23 Ordered By: Arnoldo Stafford Referrals: Dorita Flaherty FNP [Primary Care Provider] - Discharge Diet: Usual diet Discharge Activity: Increase activity as tolerated Patient Instructions: Epilepsy (ED) Activity Restrictions/Additional Instructions: Please continue taking your Keppra as prescribed as well as other medications. Call Dr. Parkinson's office as instructed to schedule an appointment. If you develop any new or worsening symptoms return for reevaluation. Coding Level of Care Code ED Home Companion for Marva Bunn
[2023-10-31 20:02] LABS: Alanine Aminotransferase 17 U/L (0-41); Alkaline Phosphatase 136 U/L (40-130); Anion Gap 14.2 (5-19); Aspartate Amino Transferase 30 U/L (0-40); Blood Urea Nitrogen 17 mg/dL (6-20); Calcium 9.7 mg/dL (8.5-10.5); Carbon Dioxide 28 mmol/L (22-29); Chloride 101 mmol/L (98-107); Creatinine Clr Calc Pharmacy 97.8805; Globulin 3.9 g/dL (1.3-4.6); Glomerular Filtration Rate 77.3 mL/min (90-130); Glucose 135 mg/dL (65-115); Magnesium 1.4 mg/dL (1.7-2.3); Osmolality Calculated 294 mOsm/kg (285-295); Potassium 3.2 mmol/L (3.5-5.1); Sodium 140 mmol/L (136-145); Total Bilirubin 1.9 mg/dL (0.15-1.2); Total Protein 7.9 g/dL (6.6-8.7)
--- NOTE | 2023-10-31 20:06 | ECG_ITS ---
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 Measurements Intervals [place] Rate: 65 P: 26 MA: 168 QRS: -42 QRSD: 96 T: 62 QT: 441 QTc: 459 Interpretive Statements SINUS RHYTHM LEFT AXIS DEVIATION [QRS AXIS < -30] MINIMAL VOLTAGE CRITERIA FOR LVH, CONSIDER NORMAL VARIANT [MEETS CRITERIA IN ONE OF: R(aVL), S(V1), R(V5), R(V5/V6)+S(V1)] POSSIBLE LATERAL MYOCARDIAL INFARCTION , PROBABLY OLD [30 ms Q WAVE IN I/aVL/V5/V6] Compared to ECG 10/27/2023 19:40:46 No significant changes Electronically Signed On 11-01-2023 8:11:56 CDT by Gage Noriega M.D. [id number]
--- NOTE | 2023-10-31 20:26 | PC.NURSE ---
WATER PROVIDED PER PT REQUEST AND PROVIDER APPROVAL
[2023-10-31 21:18] LABS: Add Urine Microscopic? YES; Bacteria Urine TRACE /hpf; Bilirubin Urine Neg (Negative); Blood Urine Neg (Negative); Glucose Urine UA Norm (Normal); Ketones Urine Negative (Negative); Leukocyte Esterase Urine Negative (Negative); Nitrate Urine Negative (Negative); Protein Urine Trace (Negative); Squamous Epithelial Cell Urine 0-4 /hpf (0-5); Urine Appearance Clear (CLEAR); Urine Color Dark Yellow (Yellow); Urobilinogen Urine 8 mg/dL (Negative); WBC Urine 0-4 /hpf (0-5); pH Urine 6.5 (5-7)
[2023-10-31 21:23] LABS: Amphetamines Screen Urine Negative (Negative); Barbiturates Screen Urine Negative (Negative); Benzodiazepines Screen Urine Negative (Negative); Cocaine Screen Urine Negative (Negative); Opiate Screen Urine Negative (Negative); PCP Screen Urine Negative (Negative); THC Screen Urine Negative (Negative)
[2023-10-31] MEDS: ketorolac 60 mg/2 mL INJ 30 MG IVP (22:18)
== END 2023-10-31 22:30 | disposition home or self-care (01) ==
PROVIDERS: Emergency Provider Physician Assistant; PCP Nurse Practitioner Family
DX: G40.919 Epilepsy, unspecified, intractable, without status epilepticus (principal); Z79.02 Long term (current) use of antithrombotics/antiplatelets; Z79.82 Long term (current) use of aspirin; Z79.4 Long term (current) use of insulin; I25.10 Atherosclerotic heart disease of native coronary artery without angina pectoris; E78.5 Hyperlipidemia, unspecified; I10 Essential (primary) hypertension
CPT/HCPCS: 70450; 80053; 80306; 81001; 83735; 85025; 93005; 96374; 99285; J1885

== ENCOUNTER 2023-11-03 19:39 | Emergency (ER) | payer MEDICAID, SELFPAY ==
[2023-11-03 19:52] VITALS: BP 171/102; PULSE 70; RESP 18; TEMP 36.9; O2SAT 94
--- NOTE | 2023-11-03 20:37 | ED_ITS ---
HPI - Back Pain/Injury General: Chief Complaint: Back Pain/Injury Stated Complaint: Back/Shoulder pain Time Seen by Provider: 11/03/23 20:28 Source: patient Mode of arrival: ambulatory Limitations: no limitations History of Present Illness: 58-year-old male who states has been low back pain for last few days. He denies any injuries denies any bowel or bladder incontinence he rates his pain a 3 out of 10 he was resting comfortably when I walked in the room. Patient's been seen here multiple times lately for different pain complaints Associated symptoms: Deny abdominal pain, chills, fever(s), nausea or vomiting Review of Systems Const: Denies: fever(s) or chills ENMT: Denies: throat pain or dental pain Card: Denies: chest pain Resp: Denies: dyspnea GI: Denies: abdominal pain, nausea, vomiting or diarrhea Musc: Reports: back pain; Denies: neck pain Skin/Breast: Denies: rash Neuro: Denies: headache(s) PFSH ED PFSH: Medical History Acute kidney injury Coronary artery disease Chronic low back pain Dyslipidemia Benign essential hypertension with target blood pressure below 140/90 Type 2 diabetes mellitus Atypical chest pain Epilepsy Obesity Glucose intolerance Smoker Hypothyroidism Surgical History H/O heart artery stent 07/11/2020-Cardiac stent placement mid LAD H/O umbilical hernia repair History of appendectomy Family History Father , at age 74 Family history of premature coronary artery disease Had a myocardial infarction in his 40s. Diabetes CAD (coronary artery disease) Chronic kidney disease (CKD) Stroke Brother Family history of premature coronary artery disease CAD (coronary artery disease) Had [place] in the 50s Diabetes Stroke Grandmother CAD (coronary artery disease) Diabetes Grandfather CAD (coronary artery disease) Mother , at age 84 CAD (coronary artery disease) Cancer Diabetes COVID-19 Family/Other Lung disease Denies family history of Clotting disorder Dementia Suicide Anesthesia complication Bleeding disorder Social History Smoking and tobacco/nicotine status: never used tobacco/nicotine Alcohol intake: current Alcohol intake frequency: holidays/special occasions only Substance/Drug Use: never Household members: spouse Housing: House Marital status: Current occupational status: disabled Physical Exam Const: COMMON NORMALS: no acute distress, patient oriented x3 and healthy appearing HENMT: COMMON NORMALS: normocephalic and atraumatic HEAD & SCALP: normocephalic and atraumatic Neck/C-Spine: COMMON NORMALS: full ROM and supple Chest: COMMONS NORMALS: normal inspection of the chest Resp: COMMON NORMALS: normal respiratory effort Back/Pelvis: OTHER: No exquisite tenderness noticed on back exam no saddle anesthesia Extremity: COMMON NORMALS: normal to inspection and full ROM Neuro: COMMON NORMALS: patient oriented x3, moves all extremities and no focal motor deficits Psych: COMMON NORMALS: mental status grossly normal, Normal thought process present and cooperative THOUGHT PROCESS: Normal thought process present Skin: COMMON NORMALS: no rashes or lesions noted and no wounds GENERAL SKIN EXAM: no rashes or lesions noted Course Vital Signs: Vital signs: Vital Signs Temperature 98.4 F 11/03/23 19:52 Pulse Rate 70 11/03/23 19:52 Respiratory Rate 18 11/03/23 19:52 Blood Pressure 171/102 11/03/23 19:52 Pulse Oximetry 94 11/03/23 19:52 Oxygen Delivery Me thod Room Air 11/03/23 19:52 MDM - Back Pain/Injury Medical Decision Making Patient presents here with low back pain exam here is benign he is stable for discharge follow-up with PCP return if worsening. Medical Records I reviewed the patient's medical records. No radiology studies performed this visit Discharge Plan Discharge Patient Disposition: Home Clinical Impression: Low back pain Condition: Stable Prescriptions: No Action allopurinol 100 mg tablet 100 mg PO DAILY PRN (Reason: GOUT) (DME) Fast Form Ulnar Gutter See Rx Instructions .Route .MEDSUPPLY Qty: 1 0RF Rx Instructions: As directed insulin glargine 100 unit/mL solution 25 unit SUBCUT DAILY 30 Days Qty: 15 1RF (DME) OneTouch Ultra Test Strip See Rx Instructions .Route Qty: 100 1RF Rx Instructions: As directed patient has one touch ultra 2 glucometer (DME) Dexcom G7 Asic Engineer Misc See Rx Instructions .Route Qty: 1 0RF Rx Instructions: As directed levothyroxine 150 mcg tablet See Rx Instructions .ROUTE .COMPLEX Qty: 30 0RF Dose Instruction: TAKE 1 CAPSULE BY MOUTH DAILY Rx Instructions: TAKE 1 CAPSULE BY MOUTH DAILY Plavix 75 mg tablet 75 mg PO DAILY@0700 Qty: 90 3RF Rx Instructions: last filled jan 2022 lisinopril 40 mg tablet 40 mg PO DAILY Qty: 90 3RF metoprolol tartrate 25 mg tablet 50 mg PO DAILY Qty: 90 6RF nitroglycerin 0.4 mg tablet, sublingual 0.4 mg SUBLINGUAL Q5M PRN (Reason: chest pain) 30 Days Qty: 30 3RF Rx Instructions: until response; do not exceed 3 doses per episode rosuvastatin 10 mg tablet 10 mg PO DAILY Qty: 90 1RF aspirin 81 mg tablet,chewable 81 mg PO DAILY@0700 Qty: 90 3RF (DME) Dexcom G7 Sensor Device See Rx Instructions .Route Qty: 3 1RF Rx Instructions: As directed levetiracetam 750 mg tablet 1,500 mg PO DAILY diclofenac sodium [Voltaren Arthritis Pain] 1 % gel 4 g topical QID PRN (Reason: Pain) hydrocodone-acetaminophen 5-325 mg tablet 1 tab PO Q8H PRN (Reason: Pain) Tylenol Arthritis Pain 650 mg tablet extended release 1,300 mg PO Q8H PRN (Reason: pain) (DME) Blood Glucose Monitoring Kit See Rx Instructions .Route Qty: 1 0RF Rx Instructions: As directed (DME) lancets Misc See Rx Instructions .Route Qty: 200 0RF Rx Instructions: As directed (DME) Blood Glucose Test Strip See Rx Instructions .Route Qty: 50 0RF Rx Instructions: As directed amoxicillin-pot clavulanate 875-125 mg tablet 1 tab PO BID Qty: 14 0RF bacitracin 500 unit/gram ointment 1 applic topical DAILY Qty: 14 0RF celecoxib 100 mg capsule 100 mg PO BID Qty: 20 0RF methocarbamol 750 mg tablet 750 mg PO TID PRN (Reason: back pain) Qty: 15 0RF Discharge Orders: Discharge ED (Routine); Ordered 11/03/23 Ordered By: Kerry Jeter Referrals: Dorita Flaherty, AUTO CLEANER [Primary Care Provider] - 4-7 days Discharge Diet: Advance as tolerated Discharge Activity: Resume usual activity Patient Instructions: Back Pain (ED) Coding Level of Care Code ED National Expansion Recruiter for Marva Bunn
[2023-11-03] MEDS: ketorolac 30 mg/mL INJ IM (20:48)
[2023-11-03 20:50] VITALS: BP 155/98; PULSE 69; RESP 16; TEMP 36.9; O2SAT 95
== END 2023-11-03 20:50 | disposition home or self-care (01) ==
PROVIDERS: Emergency Provider Emergency Medicine; PCP Nurse Practitioner Family
DX: M54.50 Low back pain, unspecified (principal); Z79.02 Long term (current) use of antithrombotics/antiplatelets; Z79.82 Long term (current) use of aspirin; Z79.4 Long term (current) use of insulin; I25.10 Atherosclerotic heart disease of native coronary artery without angina pectoris; E78.5 Hyperlipidemia, unspecified; I10 Essential (primary) hypertension; E11.9 Type 2 diabetes mellitus without complications
CPT/HCPCS: 96372; 99284; J1885

== ENCOUNTER 2023-11-11 19:52 | Emergency (ER) | payer MEDICAID, SELFPAY ==
--- NOTE | 2023-11-11 19:56 | ECG_ITS ---
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 Measurements Intervals [place] Rate: 87 P: 22 NM: 155 QRS: -43 QRSD: 106 T: 59 QT: 391 QTc: 471 Interpretive Statements SINUS RHYTHM LEFT AXIS DEVIATION [QRS AXIS < -30] PATTERN CONSISTENT WITH PULMONARY DISEASE LEFT VENTRICULAR HYPERTROPHY AND ST-T CHANGE [VOLTAGE CRITERIA PLUS ST/T ABNORMALITY] Compared to ECG 10/31/2023 20:06:20 ST (T wave) deviation now present Myocardial infarct finding no longer present Electronically Signed On 11-11-2023 22:02:35 CDT by Sujata Flores M.D. [id number] f
[2023-11-11 20:02] VITALS: BP 100/63; PULSE 90; RESP 16; TEMP 36.8; O2SAT 92
--- NOTE | 2023-11-11 20:09 | XRR_ITS ---
PROCEDURE INFORMATION: Exam: XR Chest Exam date and time: 11/11/2023 8:22 PM Age: 58 years old Clinical indication: Angina; Prior surgery; Surgery date: 6+ months; Surgery type: Stent; Additional info: Chest pain TECHNIQUE: Imaging protocol: Radiologic exam of the chest. Views: 1 view. COMPARISON: CR (CHEST, ) 10/23/2023 9:30 PM FINDINGS: Lungs: Unremarkable. No consolidation. Pleural spaces: Unremarkable. No pleural effusion. No pneumothorax. Heart/Mediastinum: Unremarkable. No cardiomegaly. Bones/joints: Unremarkable. XR/XR chest 1V portable [id number] IMPRESSION: No acute findings.
[2023-11-11 20:20] LABS: Basophils # 0.1 10^3/uL (0.0-0.1); Basophils % 1.3 %; Eosinophils # 0.2 10^3/uL (0.0-0.8); Hematocrit 41.2 % (37-53); Lymphocytes # 1.2 10^3/uL (0.8-4.8); Lymphocytes % 15.3 %; Mean Corpuscular HGB Conc 35.2 g/dL (30-55); Mean Corpuscular Hemoglobin 30.9 pg (27-33); Mean Corpuscular Volume 87.8 fl (82-101); Mean Platelet Volume 10.6 fL (7.4-10.4); Monocytes # 0.8 10^3/uL (0.2-0.9); Monocytes % 10.3 %; Neutrophils # 5.29 10^3/uL (1.8-7.7); Neutrophils % 69.6 %; Nucleated Red Blood Cells % 0 %; Platelet Count 152 10^3/cmm (157-399); Red Blood Count 4.69 10^6/uL (3.85-5.65); Red Cell Distribution Width 13.4 % (12.1-15.1)
[2023-11-11 20:35] LABS: Alanine Aminotransferase 19 U/L (0-41); Albumin Level 4.1 g/dL (3.5-5.2); Alkaline Phosphatase 129 U/L (40-130); Anion Gap 16.8 (5-19); Aspartate Amino Transferase 38 U/L (0-40); Blood Urea Nitrogen 11 mg/dL (6-20); Calcium 9.2 mg/dL (8.5-10.5); Carbon Dioxide 28 mmol/L (22-29); Chloride 96 mmol/L (98-107); Creatinine Clr Calc Pharmacy 97.2454; Globulin 3.9 g/dL (1.3-4.6); Glomerular Filtration Rate 77.3 mL/min (90-130); Glucose 207 mg/dL (65-115); Osmolality Calculated 291 mOsm/kg (285-295); Sodium 138 mmol/L (136-145); Total Bilirubin 2.2 mg/dL (0.15-1.2)
[2023-11-11 20:36] LABS: Potassium 2.8 mmol/L (3.5-5.1)
[2023-11-11 20:42] VITALS: BP 129/79; PULSE 80; O2SAT 97
[2023-11-11] MEDS: potassium chloride ER 20 mEq Tablet 40 MEQ PO (21:19)
[2023-11-11 21:21] VITALS: BP 133/84; PULSE 77; RESP 14; O2SAT 95
[2023-11-11 21:44] LABS: Troponin(5th) Baseline 17 ng/L (0-15)
--- NOTE | 2023-11-11 21:49 | ED_ITS ---
HPI - Chest Pain 2 General: Chief Complaint: Chest Pain Stated Complaint: CP Time Seen by Provider: 11/11/23 20:19 History of Present Illness: 58-year-old man with a history of newman ry artery disease, hyperlipidemia and hypertension who presents to the emergency room for the 10th time this month. This time he presents with hypertension and some chest discomfort. He says his blood pressure was 156/148 at home so he came to the emergency room. This is not his blood pressures here. They are quite normal. No other complaints today. Review of Systems 2 Narrative: Constitutional symptoms: Negative except as documented in HPI. Skin symptoms: Negative except as documented in HPI. Eye symptoms: Negative except as documented in HPI. ENMT symptoms: Negative except as documented in HPI. Respiratory symptoms: Negative except as documented in HPI. Cardiovascular symptoms: Negative except as documented in HPI. Gastrointestinal symptoms: Negative except as documented in HPI. Genitourinary symptoms: Negative except as documented in HPI. Musculoskeletal symptoms: Negative except as documented in HPI. Neurologic symptoms: Negative except as documented in HPI. Psychiatric symptoms: Negative except as documented in HPI. Endocrine symptoms: Negative except as documented in HPI. PFSH ED 2 PFSH: Medical History Acute kidney injury Coronary artery disease Chronic low back pain Dyslipidemia Benign essential hypertension with target blood pressure below 140/90 Type 2 diabetes mellitus Atypical chest pain Epilepsy Obesity Glucose intolerance Smoker Hypothyroidism Surgical History H/O heart artery stent 07/11/2020-Cardiac stent placement mid LAD H/O umbilical hernia repair History of appendectomy Family History Father , at age 74 Family history of premature coronary artery disease Had a myocardial infarction in his 40s. Diabetes CAD (coronary artery disease) Chronic kidney disease (CKD) Stroke Brother Family history of premature coronary artery disease CAD (coronary artery disease) Had [place] in the 50s Diabetes Stroke Grandmother CAD (coronary artery disease) Diabetes Grandfather CAD (coronary artery disease) Mother , at age 84 CAD (coronary artery disease) Cancer Diabetes COVID-19 Family/Other Lung disease Denies family history of Clotting disorder Dementia Suicide Anesthesia complication Bleeding disorder Social History Smoking and tobacco/nicotine status: never used tobacco/nicotine Alcohol intake: current Alcohol intake frequency: holidays/special occasions only Substance/Drug Use: never Household members: spouse Housing: House Marital status: Current occupational status: disabled Physical Exam 2 Narrative: EXAM NARRATIVE: General: Alert, no acute distress. Skin: Warm, dry. Head: Normocephalic, atraumatic. Neck: Supple, trachea midline. Eye: Extraocular movements are intact. Ears, nose, mouth and throat: mucosa moist. Cardiovascular: Regular, Normal peripheral perfusion. Respiratory: Lungs are clear to auscultation, respirations are non-labored, breath sounds are equal, Symmetrical chest wall expansion. Gastrointestinal: Soft, Nontender, Non distended Musculoskeletal: Normal ROM, no deformity. Neurological: Alert and oriented, No focal neurological deficit observed. Psychiatric: Cooperative, appropriate mood & affect. Course 2 Vital Signs: Vital signs: Vital Signs Temperature 98.3 F 11/11/23 20:02 Pulse Rate 77 11/11/23 21:21 Respiratory Rate 14 11/11/23 21:21 Blood Pressure 133/84 11/11/23 21:21 Pulse Oximetry 95 11/11/23 21:21 Oxygen Delivery Me thod Room Air 11/11/23 20:42 MDM - Chest Pain Medical Decision Making Medical decision making: Differential diagnosis including but not limited to and based on the above HPI, review of systems and physical exam: Patient presents with hypertension: Essential hypertension. Stroke. acute coronary syndrome. kidney failure. congestive heart failure. anxiety Orders placed to evaluate differential diagnosis based on the above differential, HPI and physical exam these include an EKG to evaluate for any ischemic changes, chest x-ray to evaluate for cardiomegaly, and basic lab work including a troponin and a BMP look at renal function. EKG: Time 1955. Rate 87. Normal sinus rhythm, No ST-T changes, no ectopy, normal KS & QRS intervals, This was reviewed and interpreted by myself the ER physician at 20 00 Chest x-ray: No acute process. No infiltrate. No pneumothorax. This was reviewed and interpreted by myself the ER physician. Lab Review: Laboratory results were reviewed and interpreted by myself the emergency room physician. Lab work is unremarkable other than a low potassium. Giving some oral potassium here and will send him home on some. Assessment and plan: Hyperkalemia Noncardiac chest pain -40 mill equivalents p.o. potassium here. Home on some potassium. - Discharged home - Discussed findings and plan with patient. Answered any questions. - All laboratory values were reviewed and interpreted personally by myself, the ER physician - All imaging was reviewed and interpreted personally by myself, the ER physician. - Evaluation and treatment of this problem were appropriate in the emergency setting Lab Data 11/11/23 19:30 11/11/23 19:30 Radiology Impressions Chest X-Ray 11/11/23 20:09 IMPRESSION: No acute findings. Laboratory Results WBC 7.60 10^3/uL (3.29-11.43) 11/11/23 19: RBC 4.69 10^6/uL (3.85-5.65) 11/11/23 19: Hgb 14.50 g/dL (11.27-16.99) 11/11/23 19: Hct 41.2 % (37-53) 11/11/23 19:30 MCV 87.8 fl (82-101) 11/11/23 19:30 MCH 30.9 pg (27-33) 11/11/23 19: MCHC 35.2 g/dL (30-55) 11/11/23 19:30 RDW 13.4 % (12.1-15.1) 11/11/23 19:30 Plt Count 152 10^3/cmm (157-399) L 11/11/23 19: MPV 10.6 fL (7.4-10.4) H 11/11/23 19:30 Neut % (Auto) 69.6 % 11/11/23 19:30 Lymph % (Auto) 15.3 % 11/11/23 19:30 Gentry % (Auto) 10.3 % 11/11/23 19:30 Eos % (Auto) 3.0 % 11/11/23 19:30 Baso % (Auto) 1.3 % 11/11/23 19:30 Neut # (Auto) 5.29 10^3/uL (1.8-7.7) 11/11/23 19:30 Lymph # (Auto) 1.2 10^3/uL (0.8-4.8) 11/11/23 19:30 Gentry # (Auto) 0.8 10^3/uL (0.2-0.9) 11/11/23 19:30 Eos # (Auto) 0.2 10^3/uL (0.0-0.8) 11/11/23 19:30 Baso # (Auto) 0.1 10^3/uL (0.0-0.1) 11/11/23 19:30 Nucleated RBC % (auto) 0 % 11/11/23 19:30 Nucleated RBCs # 0.0 /100WBC 11/11/23 19:30 Sodium 138 mmol/L (136-145) 11/11/23 19:30 Potassium 2.8 mmol/L (3.5-5.1) L* 11/11/23 19:30 Chloride 96 mmol/L (98-107) L 11/11/23 19:30 Carbon Dioxide 28 mmol/L (22-29) 11/11/23 19:30 Anion Gap 16.8 (5-19) 11/11/23 19:30 BUN 11 mg/dL (6-20) 11/11/23 19:30 Creatinine 1.0 mg/dL (0.7-1.2) 11/11/23 19:30 GFR Calculation 77.3 mL/min (90-130) L 11/11/23 19:30 Glucose 207 mg/dL (65-115) H 11/11/23 19:30 Calculated Osmolality 291 mOsm/kg (285-295) 11/11/23 19:30 Calcium 9.2 mg/dL (8.5-10.5) 11/11/23 19:30 Total Bilirubin 2.2 mg/dL (0.15-1.2) H 11/11/23 19:30 AST 38 U/L (0-40) 11/11/23 19:30 ALT 19 U/L (0-41) 11/11/23 19:30 Alkaline Phosphatase 129 U/L (40-130) 11/11/23 19:30 Troponin T Baseline 17 ng/L (0-15) H 11/11/23 19:30 Total Protein 8.0 g/dL (6.6-8.7) 11/11/23 19:30 Albumin 4.1 g/dL (3.5-5.2) 11/11/23 19:30 Globulin 3.9 g/dL (1.3-4.6) 11/11/23 19:30 All radiology interpretation(s) finalized by discharge Discharge Plan Discharge Patient Disposition: Home Clinical Impression: Atypical chest pain, Hypokalemia Condition: Stable Prescriptions: New potassium chloride 20 mEq tablet,ER particles/crystals 40 meq PO DAILY 7 Days Qty: 7 0RF No Action allopurinol 100 mg tablet 100 mg PO DAILY PRN (Reason: GOUT) (DME) Fast Form Ulnar Gutter See Rx Instructions .Route .MEDSUPPLY Qty: 1 0RF Rx Instructions: As directed insulin glargine 100 unit/mL solution 25 unit SUBCUT DAILY 30 Days Qty: 15 1RF (DME) OneTouch Ultra Test Strip See Rx Instructions .Route Qty: 100 1RF Rx Instructions: As directed patient has one touch ultra 2 glucometer (DME) 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 [employer] Misc See Rx Instructions .Route Qty: 1 0RF Rx Instructions: As directed levothyroxine 150 mcg tablet See Rx Instructions .ROUTE .COMPLEX Qty: 30 0RF Dose Instruction: TAKE 1 CAPSULE BY MOUTH DAILY Rx Instructions: TAKE 1 CAPSULE BY MOUTH DAILY Plavix 75 mg tablet 75 mg PO DAILY@0700 Qty: 90 3RF Rx Instructions: last filled jan 2022 lisinopril 40 mg tablet 40 mg PO DAILY Qty: 90 3RF metoprolol tartrate 25 mg tablet 50 mg PO DAILY Qty: 90 6RF nitroglycerin 0.4 mg tablet, sublingual 0.4 mg SUBLINGUAL Q5M PRN (Reason: chest pain) 30 Days Qty: 30 3RF Rx Instructions: until response; do not exceed 3 doses per episode rosuvastatin 10 mg tablet 10 mg PO DAILY Qty: 90 1RF aspirin 81 mg tablet,chewable 81 mg PO DAILY@0700 Qty: 90 3RF (DME) Dexcom G7 Sensor Device See Rx Instructions .ROUTE .COMPLEX Qty: 3 1RF Dose Instruction: USE DIRECTED Rx Instructions: USE DIRECTED levetiracetam 750 mg tablet 1,500 mg PO DAILY diclofenac sodium [Voltaren Arthritis Pain] 1 % gel 4 g topical QID PRN (Reason: Pain) hydrocodone-acetaminophen 5-325 mg tablet 1 tab PO Q8H PRN (Reason: Pain) Tylenol Arthritis Pain 650 mg tablet extended release 1,300 mg PO Q8H PRN (Reason: pain) (DME) Blood Glucose Monitoring Kit See Rx Instructions .Route Qty: 1 0RF Rx Instructions: As directed (DME) lancets Misc See Rx Instructions .Route Qty: 200 0RF Rx Instructions: As directed (DME) Blood Glucose Test Strip See Rx Instructions .Route Qty: 50 0RF Rx Instructions: As directed amoxicillin-pot clavulanate 875-125 mg tablet 1 tab PO BID Qty: 14 0RF bacitracin 500 unit/gram ointment 1 applic topical DAILY Qty: 14 0RF celecoxib 100 mg capsule 100 mg PO BID Qty: 20 0RF methocarbamol 750 mg tablet 750 mg PO TID PRN (Reason: back pain) Qty: 15 0RF Discharge Orders: Discharge ED (Routine); Ordered 11/11/23 Ordered By: Tila Chavez Referrals: Dorita Flaherty FNP [Primary Care Provider] - Discharge Diet: Usual diet Discharge Activity: Resume usual activity Patient Instructions: Hypokalemia (ED) Activity Restrictions/Additional Instructions: Thank you for choosing [facility] for your healthcare needs today. Please realize this is an emergency room and that we are providing you with a medical screening exam and this may not be complete and all inclusive of all the testing and or work up that you may need to determine your ailment or severity of your illness. You have been screened and evaluated and felt safe for discharge. Health conditions do change or evolve sometimes and as such it is important that you follow up with your Primary Doctor to be re checked, 3-5 days is a general good time frame for follow up. You are always welcome to return to the ED for re assessment if your symptoms are worsening or you have new concerns Coding Level of Care Code ED Jelly Maker for Marva Bunn
[2023-11-11 21:57] LABS: Troponin 5 2HR 18.79 ng/L (0-15); Troponin 5 2HR Delta 1.79 ABS# (0-10)
[2023-11-11 22:16] VITALS: BP 136/85; PULSE 70; RESP 17; O2SAT 93
== END 2023-11-11 22:28 | disposition home or self-care (01) ==
PROVIDERS: Emergency Medicine; Emergency Provider Emergency Medicine; PCP Nurse Practitioner Family
DX: R07.9 Chest pain, unspecified (principal); E87.6 Hypokalemia; Z79.02 Long term (current) use of antithrombotics/antiplatelets; Z79.82 Long term (current) use of aspirin; Z79.4 Long term (current) use of insulin; I25.10 Atherosclerotic heart disease of native coronary artery without angina pectoris; E78.5 Hyperlipidemia, unspecified; I10 Essential (primary) hypertension; E11.9 Type 2 diabetes mellitus without complications
CPT/HCPCS: 36415; 71045; 80053; 84484; 85025; 93005; 99285

== ENCOUNTER 2023-11-15 20:58 | Emergency (ER) | payer MEDICAID, SELFPAY ==
[2023-11-15 21:02] VITALS: BP 164/94; PULSE 79; RESP 17; TEMP 36.5; O2SAT 96; BMI 31.2
--- NOTE | 2023-11-15 21:38 | W.ED.HA ---
HPI - Headache General: Chief Complaint: Headache Stated Complaint: Headache Time Seen by Provider: 11/15/23 21:31 History of Present Illness: 58-year-old male patient comes into the ER with occipital headache. Patient reported headache started occipital and then radiates down his neck. Patient appears nontoxic. No focal neurodeficits are noted. Review of Systems General: Reports: 10 or more systems reviewed and unremarkable except in HPI and below Neuro: Reports: headache(s) PFSH ED PFSH: Medical History Acute kidney injury Coronary artery disease Chronic low back pain Dyslipidemia Benign essential hypertension with target blood pressure below 140/90 Type 2 diabetes mellitus Atypical chest pain Epilepsy Obesity Glucose intolerance Smoker Hypothyroidism Surgical History H/O heart artery stent 07/11/2020-Cardiac stent placement mid LAD H/O umbilical hernia repair History of appendectomy Family History Father , at age 74 Family history of premature coronary artery disease Had a myocardial infarction in his 40s. Diabetes CAD (coronary artery disease) Chronic kidney disease (CKD) Stroke Brother Family history of premature coronary artery disease CAD (coronary artery disease) Had [place] in the 50s Diabetes Stroke Grandmother CAD (coronary artery disease) Diabetes Grandfather CAD (coronary artery disease) Mother , at age 84 CAD (coronary artery disease) Cancer Diabetes COVID-19 Family/Other Lung disease Denies family history of Clotting disorder Dementia Suicide Anesthesia complication Bleeding disorder Social History Smoking and tobacco/nicotine status: never used tobacco/nicotine Alcohol intake: current Alcohol intake frequency: holidays/special occasions only Substance/Drug Use: never Household members: spouse Housing: House Marital status: Current occupational status: disabled Physical Exam Const: COMMON NORMALS: alert HENMT: COMMON NORMALS: normocephalic HEAD & SCALP: normocephalic Neck/C-Spine: CERVICAL SPINE: Yes Paracervical muscle tenderness Resp: COMMON NORMALS: normal respiratory effort Cardio: COMMON NORMALS: regular rate RATE: regular rate GI: COMMON NORMALS: non-tender Back/Pelvis: COMMON NORMALS: thoracic and lumbar spine normal to inspection Extremity: COMMON NORMALS: no pedal edema Neuro: CANDY COMA SCALE: document GCS findings Candy coma scale eye opening: Spontaneous Candy coma scale verbal response: Orientated Candy coma scale motor response: Obey commands [place] coma scale total score: 15 SENSORIUM/ORIENTATION: Yes alert Skin: COMMON NORMALS: turgor normal GENERAL SKIN EXAM: turgor normal Course Vital Signs: Vital signs: Vital Signs Temperature 97.7 F 11/15/23 21:02 Pulse Rate 76 11/15/23 22:27 Respiratory Rate 15 11/15/23 22:27 Blood Pressure 133/86 11/15/23 22:27 Pulse Oximetry 96 11/15/23 22:27 Oxygen Delivery Me thod Room Air 11/15/23 21:02 MDM - Headache Medical Decision Making 58-year-old male patient comes in today for concerns of an occipital headache. Patient appears nontoxic. Patient appears no acute distress. Patient has tenderness along the paracervical spinal muscles. Differential diagnosis includes but not limited to intervertebral disc disease, facet arthropathy, migraine headache, occipital/tension headache. Patient was treated for tension headache. Patient was given 30 mg of Toradol and 10 mg of Reglan. Patient was recommended to drink plenty water and fluids and follow-up with primary care. No signs of severe illness or injury was noted. Patient was stable and discharged home. No radiology studies performed this visit Discharge Plan Discharge Patient Disposition: Home Clinical Impression: Tension headache Condition: Stable Prescriptions: No Action allopurinol 100 mg tablet 100 mg PO DAILY PRN (Reason: GOUT) (DME) Fast Form Ulnar Gutter See Rx Instructions .Route .MEDSUPPLY Qty: 1 0RF Rx Instructions: As directed insulin glargine 100 unit/mL solution 25 unit SUBCUT DAILY 30 Days Qty: 15 1RF (DME) OneTouch Ultra Test Strip See Rx Instructions .Route Qty: 100 1RF Rx Instructions: As directed patient has one touch ultra 2 glucometer (DME) Dexcom G7 Checker Stocker Misc See Rx Instructions .Route Qty: 1 0RF Rx Instructions: As directed levothyroxine 150 mcg tablet See Rx Instructions .ROUTE .COMPLEX Qty: 30 0RF Dose Instruction: TAKE 1 CAPSULE BY MOUTH DAILY Rx Instructions: TAKE 1 CAPSULE BY MOUTH DAILY Plavix 75 mg tablet 75 mg PO DAILY@0700 Qty: 90 3RF Rx Instructions: last filled jan 2022 lisinopril 40 mg tablet 40 mg PO DAILY Qty: 90 3RF metoprolol tartrate 25 mg tablet 50 mg PO DAILY Qty: 90 6RF nitroglycerin 0.4 mg tablet, sublingual 0.4 mg SUBLINGUAL Q5M PRN (Reason: chest pain) 30 Days Qty: 30 3RF Rx Instructions: until response; do not exceed 3 doses per episode rosuvastatin 10 mg tablet 10 mg PO DAILY Qty: 90 1RF aspirin 81 mg tablet,chewable 81 mg PO DAILY@0700 Qty: 90 3RF (DME) Dexcom G7 Sensor Device See Rx Instructions .ROUTE .COMPLEX Qty: 3 1RF Dose Instruction: USE DIRECTED Rx Instructions: USE DIRECTED levetiracetam 750 mg tablet 1,500 mg PO DAILY diclofenac sodium [Voltaren Arthritis Pain] 1 % gel 4 g topical QID PRN (Reason: Pain) hydrocodone-acetaminophen 5-325 mg tablet 1 tab PO Q8H PRN (Reason: Pain) Tylenol Arthritis Pain 650 mg tablet extended release 1,300 mg PO Q8H PRN (Reason: pain) (DME) Blood Glucose Monitoring Kit See Rx Instructions .Route Qty: 1 0RF Rx Instructions: As directed (DME) lancets Misc See Rx Instructions .Route Qty: 200 0RF Rx Instructions: As directed (DME) Blood Glucose Test Strip See Rx Instructions .Route Qty: 50 0RF Rx Instructions: As directed amoxicillin-pot clavulanate 875-125 mg tablet 1 tab PO BID Qty: 14 0RF bacitracin 500 unit/gram ointment 1 applic topical DAILY Qty: 14 0RF celecoxib 100 mg capsule 100 mg PO BID Qty: 20 0RF methocarbamol 750 mg tablet 750 mg PO TID PRN (Reason: back pain) Qty: 15 0RF potassium chloride 20 mEq tablet,ER particles/crystals 40 meq PO DAILY 7 Days Qty: 7 0RF Discharge Orders: Discharge ED (Routine); Ordered 11/15/23 Ordered By: Alexis Brian Referrals: Dorita Flaherty FNP [Primary Care Provider] - Discharge Diet: Usual diet Discharge Activity: Increase activity as tolerated Patient Instructions: General Headache (ED) Activity Restrictions/Additional Instructions: Use Tylenol or ibuprofen for your headache. Follow-up with primary care. Return to ED for new concerns. Coding Level of Care Code ED Real Estate Closing Coordinator for Marva Bunn
[2023-11-15] MEDS: ketorolac 30 mg/mL INJ IM (21:57)
[2023-11-15] MEDS: metoclopramide 5 mg/mL SDV 2 mL 10 MG IM (21:57)
[2023-11-15 22:27] VITALS: BP 133/86; PULSE 76; RESP 15; O2SAT 96
== END 2023-11-15 22:28 | disposition home or self-care (01) ==
PROVIDERS: Emergency Provider Nurse Practitioner Family; PCP Nurse Practitioner Family
DX: R51.9 Headache, unspecified (principal); E11.9 Type 2 diabetes mellitus without complications; E03.9 Hypothyroidism, unspecified; I10 Essential (primary) hypertension; I25.10 Atherosclerotic heart disease of native coronary artery without angina pectoris; G40.909 Epilepsy, unspecified, not intractable, without status epilepticus; Z79.899 Other long term (current) drug therapy; Z79.4 Long term (current) use of insulin; Z79.82 Long term (current) use of aspirin
CPT/HCPCS: 96372; 99284; J1885; J2765

== ENCOUNTER 2023-11-17 08:47 | Outpatient (CLI) | payer MEDICAID, SELFPAY ==
[2023-11-17 11:00] LABS: Blood Urea Nitrogen 17 mg/dL (6-20); Calcium 9.5 mg/dL (8.5-10.5); Carbon Dioxide 30 mmol/L (22-29); Chloride 100 mmol/L (98-107); Glomerular Filtration Rate 62.6 mL/min (90-130); Glucose 264 mg/dL (65-115); Osmolality Calculated 295 mOsm/kg (285-295); Sodium 137 mmol/L (136-145)
== END 2023-11-17 08:48 | disposition home or self-care (01) ==
PROVIDERS: Absent Provider Nurse Practitioner Family; PCP Nurse Practitioner Family; Visit Provider Internal Medicine
DX: E03.8 Other specified hypothyroidism (principal); E06.3 Autoimmune thyroiditis; E11.65 Type 2 diabetes mellitus with hyperglycemia
CPT/HCPCS: 36415; 80048

== ENCOUNTER 2023-11-19 21:32 | Emergency (ER) | payer MEDICAID, SELFPAY ==
[2023-11-19 21:36] VITALS: BP 133/82; PULSE 79; RESP 16; TEMP 36.7; O2SAT 98
[2023-11-19 21:44] LABS: Glucose Point of Care 370 mg/dL (70-110)
--- NOTE | 2023-11-19 21:56 | PC.NURSE ---
[facility] NOTIFICATION this nurse spoke with chi. chi updated on pt bg reading. chi frustrated about pt calling ems to come in for this reason.
--- NOTE | 2023-11-19 22:37 | ED_ITS ---
HPI - General Adult 2 General: Chief complaint: General Medical Stated complaint: HIGH BLOOD SUGAR Time Seen by Provider: 11/19/23 22:30 History of Present Illness: 58-year-old man with a history of diabet es and frequent emergency room visits who presents the emergency room today by ambulance with hyperglycemia. He said he had had some abdominal pain that sounds like is chronic. Apparently he has a guardian/POA who had tried to stop EMS from bringing him and because she says he has been coming to the emergency room too much. Apparently he did not take his medications like he was supposed to or was told to by his caregiver and he also ate food he should have eaten according to the guardian. He says he took his medications like he supposed to. Review of Systems 2 Narrative: Constitutional symptoms: Negative except as documented in HPI. Skin symptoms: Negative except as documented in HPI. Eye symptoms: Negative except as documented in HPI. ENMT symptoms: Negative except as documented in HPI. Respiratory symptoms: Negative except as documented in HPI. Cardiovascular symptoms: Negative except as documented in HPI. Gastrointestinal symptoms: Negative except as documented in HPI. Genitourinary symptoms: Negative except as documented in HPI. Musculoskeletal symptoms: Negative except as documented in HPI. Neurologic symptoms: Negative except as documented in HPI. Psychiatric symptoms: Negative except as documented in HPI. Endocrine symptoms: Negative except as documented in HPI. PFSH ED 2 PFSH: Medical History Acute kidney injury Coronary artery disease Chronic low back pain Dyslipidemia Benign essential hypertension with target blood pressure below 140/90 Type 2 diabetes mellitus Atypical chest pain Epilepsy Obesity Glucose intolerance Smoker Hypothyroidism Surgical History H/O heart artery stent 07/11/2020-Cardiac stent placement mid LAD H/O umbilical hernia repair History of appendectomy Family History Father , at age 74 Family history of premature coronary artery disease Had a myocardial infarction in his 40s. Diabetes CAD (coronary artery disease) Chronic kidney disease (CKD) Stroke Brother Family history of premature coronary artery disease CAD (coronary artery disease) Had [place] in the 50s Diabetes Stroke Grandmother CAD (coronary artery disease) Diabetes Grandfather CAD (coronary artery disease) Mother , at age 84 CAD (coronary artery disease) Cancer Diabetes COVID-19 Family/Other Lung disease Denies family history of Clotting disorder Dementia Suicide Anesthesia complication Bleeding disorder Social History Smoking and tobacco/nicotine status: never used tobacco/nicotine Alcohol intake: current Alcohol intake frequency: holidays/special occasions only Substance/Drug Use: never Household members: spouse Housing: House Marital status: Current occupational status: disabled Physical Exam 2 Narrative: EXAM NARRATIVE: General: Alert, no acute distress. Skin: Warm, dry. Head: Normocephalic, atraumatic. Neck: Supple, trachea midline. Eye: Extraocular movements are intact. Ears, nose, mouth and throat: mucosa moist. Cardiovascular: Regular, Normal peripheral perfusion. Respiratory: Lungs are clear to auscultation, respirations are non-labored, breath sounds are equal, Symmetrical chest wall expansion. Gastrointestinal: Soft, Nontender, Non distended Musculoskeletal: Normal ROM, no deformity. Neurological: Alert and oriented, No focal neurological deficit observed. Psychiatric: Cooperative, appropriate mood & affect. Course 2 Vital Signs: Vital signs: Vital Signs Temperature 98.0 F 11/19/23 21:36 Pulse Rate 79 11/19/23 21:36 Respiratory Rate 16 11/19/23 21:36 Blood Pressure 133/82 11/19/23 21:36 Pulse Oximetry 98 11/19/23 21:36 Oxygen Delivery Me thod Room Air 11/19/23 21:36 MDM - General Adult Medical Decision Making Medical decision making: Differential diagnosis for the patient with hyperglycemia would include but not be limited to and would be based on the above HPI review of systems and physical exam: DKA. Dehydration. Renal failure. Concern for electrolyte abnormalities. Concern for underlying infection that might result in hyperglycemia. Medical non-compliance. This seems to be mostly just hyper glycemia secondary to noncompliance. I am ordering a BMP and a CMP to evaluate for renal failure and to evaluate his sugar. Orders placed to evaluate differential diagnosis of the patient with hyperglycemia are based on the above differential, HPI and physical exam. Lab Review: Laboratory results were reviewed and interpreted by myself the emergency room physician. Lab work is unremarkable other than the patient's glucose. 339 originally. Repeat after fluids and insulin is down to around 200. I reviewed the patient's medical record. Reexamination: Patient remained stable. No increased work of breathing. No altered mental status. Assessment and plan: Hyperglycemia ?Normal saline bolus and IV insulin - Discharged home - Discussed plan with patient. Answered any questions. - Evaluation and treatment of this problem were appropriate in the emergency setting. Lab Data 11/19/23 22:39 11/19/23 22:39 Laboratory Results WBC 6.49 10^3/uL (3.29-11.43) 11/19/23 22: RBC 4.37 10^6/uL (3.85-5.65) 11/19/23 22:39 Hgb 13.30 g/dL (11.27-16.99) 11/19/23: Hct 38.5 % (37-53) 11/19/23: MCV 88.1 fl (82-101) 11/19/23 22: MCH 30.4 pg (27-33) 11/19/23: MCHC 34.5 g/dL (30-55) 11/19/23 22: RDW 13.1 % (12.1-15.1) 11/19/23 22: Plt Count 122 10^3/cmm (157-399) L 11/19/23 22:39 MPV 10.6 fL (7.4-10.4) H 11/19/23 22:39 Neut % (Auto) 69.0 % 11/19/23 22:39 Lymph % (Auto) 15.1 % 11/19/23 22:39 [place] % (Auto) 11.2 % 11/19/23: Eos % (Auto) 3.1 % 11/19/23 22:39 Baso % (Auto) 1.1 % 11/19/23:39 Neut # (Auto) 4.48 10^3/uL (1.8-7.7) 11/19/23: Lymph # (Auto) 1.0 10^3/uL (0.8-4.8) 11/19/23 22: [place] # (Auto) 0.7 10^3/uL (0.2-0.9) 11/19/23 22:39 Eos # (Auto) 0.2 10^3/uL (0.0-0.8) 11/19/23 22:39 Baso # (Auto) 0.1 10^3/uL (0.0-0.1) 11/19/23 22:39 Nucleated RBC % (auto) 0 % 11/19/23 22:39 Nucleated RBCs # 0.0 /100WBC 11/19/23 22:39 Sodium 137 mmol/L (136-145) 11/19/23 22:39 Potassium 3.7 mmol/L (3.5-5.1) 11/19/23 22:39 Chloride 98 mmol/L (98-107) 11/19/23 22:39 Carbon Dioxide 28 mmol/L (22-29) 11/19/23 22:39 Anion Gap 14.7 (5-19) 11/19/23 22:39 BUN 20 mg/dL (6-20) 11/19/23 22:39 Creatinine 1.2 mg/dL (0.7-1.2) 11/19/23 22:39 GFR Calculation 62.6 mL/min (90-130) L 11/19/23 22:39 Glucose 339 mg/dL (65-115) H 11/19/23 22:39 POC Glucose 217 mg/dL (70-110) H 11/19/23 23:48 Calculated Osmolality 300 mOsm/kg (285-295) H 11/19/23 22:39 Calcium 9.7 mg/dL (8.5-10.5) 11/19/23 22:39 Total Bilirubin 1.0 mg/dL (0.15-1.2) 11/19/23 22:39 AST 46 U/L (0-40) H 11/19/23 22:39 ALT 24 U/L (0-41) 11/19/23 22:39 Alkaline Phosphatase 137 U/L (40-130) H 11/19/23 22:39 Total Protein 7.8 g/dL (6.6-8.7) 11/19/23 22:39 Albumin 4.0 g/dL (3.5-5.2) 11/19/23 22:39 Globulin 3.8 g/dL (1.3-4.6) 11/19/23 22:39 Serum Ketones Negative (Negative) 11/19/23 22:39 No radiology studies performed this visit Discharge Plan Discharge Patient Disposition: Home Clinical Impression: Hyperglycemia Condition: Stable Prescriptions: No Action allopurinol 100 mg tablet 100 mg PO DAILY PRN (Reason: GOUT) (DME) Fast Form Ulnar Gutter See Rx Instructions .Route .MEDSUPPLY Qty: 1 0RF Rx Instructions: As directed insulin glargine 100 unit/mL solution 25 unit SUBCUT DAILY 30 Days Qty: 15 1RF (DME) OneTouch Ultra Test Strip See Rx Instructions .Route Qty: 100 1RF Rx Instructions: As directed patient [place] one touch ultra 2 [place]com[place] [place] Dexcom G7 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 Misc See Rx Instructions .Route Qty: 1 0RF Rx Instructions: As directed levothyroxine 150 mcg tablet See Rx Instructions .ROUTE .COMPLEX Qty: 30 0RF Dose Instruction: TAKE 1 CAPSULE BY MOUTH DAILY Rx Instructions: TAKE 1 CAPSULE BY MOUTH DAILY Plavix 75 mg tablet 75 mg PO DAILY@0700 Qty: 90 3RF Rx Instructions: last filled jan 2022 lisinopril 40 mg tablet 40 mg PO DAILY Qty: 90 3RF metoprolol tartrate 25 mg tablet 50 mg PO DAILY Qty: 90 6RF nitroglycerin 0.4 mg tablet, sublingual 0.4 mg SUBLINGUAL Q5M PRN (Reason: chest pain) 30 Days Qty: 30 3RF Rx Instructions: until response; do not exceed 3 doses per episode rosuvastatin 10 mg tablet 10 mg PO DAILY Qty: 90 1RF aspirin 81 mg tablet,chewable 81 mg PO DAILY@0700 Qty: 90 3RF [place] [place] Dexcom G7 Sensor Device See Rx Instructions .ROUTE .COMPLEX Qty: 3 1RF Dose Instruction: USE DIRECTED Rx Instructions: USE DIRECTED levetiracetam 750 mg tablet 1,500 mg PO DAILY diclofenac sodium [Voltaren Arthritis Pain] 1 % gel 4 g topical QID PRN (Reason: Pain) hydrocodone-acetaminophen 5-325 mg tablet 1 tab PO Q8H PRN (Reason: Pain) Tylenol Arthritis Pain 650 mg tablet extended release 1,300 mg PO Q8H PRN (Reason: pain) [place] [place] Blood Glucose Monitoring Kit See Rx Instructions .Route Qty: 1 0RF Rx Instructions: As directed [place] [place] lancets Misc See Rx Instructions .Route Qty: 200 0RF Rx Instructions: As directed [place] [place] Blood Glucose Test Strip See Rx Instructions .Route Qty: 50 0RF Rx Instructions: As directed amoxicillin-pot clavulanate 875-125 mg tablet 1 tab PO BID Qty: 14 0RF bacitracin 500 unit/gram ointment 1 applic topical DAILY Qty: 14 0RF celecoxib 100 mg capsule 100 mg PO BID Qty: 20 0RF methocarbamol 750 mg tablet 750 mg PO TID PRN (Reason: back pain) Qty: 15 0RF Discharge Orders: Discharge ED (Routine); Ordered 11/20/23 Ordered By: Tila Chavez Referrals: Dorita Flaherty FNP [Primary Care Provider] - Discharge Diet: Diabetic Discharge Activity: Increase activity as tolerated Patient Instructions: Diabetic Hyperglycemia (ED) Activity Restrictions/Additional Instructions: Thank you for choosing [facility] [place] for your healthcare needs today. Please realize this is an emergency room and that we are providing you with a medical screening exam and this may not be complete and all inclusive of all the testing and or work up that you may need to determine your ailment or severity of your illness. You have been screened and evaluated and felt safe for discharge. Health conditions do change or evolve sometimes and as such it is important that you follow up with your Primary Doctor to be re checked, 3-5 days is a general good time frame for follow up. You are always welcome to return to the ED for re assessment if your symptoms are worsening or you have new concerns Coding Level of Care Code ED Commercial Teller for Marva Bunn
[2023-11-19 22:50] LABS: Basophils # 0.1 10^3/uL (0.0-0.1); Basophils % 1.1 %; Eosinophils # 0.2 10^3/uL (0.0-0.8); Eosinophils % 3.1 %; Hematocrit 38.5 % (37-53); Lymphocytes % 15.1 %; Mean Corpuscular HGB Conc 34.5 g/dL (30-55); Mean Corpuscular Hemoglobin 30.4 pg (27-33); Mean Corpuscular Volume 88.1 fl (82-101); Mean Platelet Volume 10.6 fL (7.4-10.4); Monocytes # 0.7 10^3/uL (0.2-0.9); Monocytes % 11.2 %; Neutrophils # 4.48 10^3/uL (1.8-7.7); Nucleated Red Blood Cells % 0 %; Platelet Count 122 10^3/cmm (157-399); Red Blood Count 4.37 10^6/uL (3.85-5.65); Red Cell Distribution Width 13.1 % (12.1-15.1); White Blood Count 6.49 10^3/uL (3.29-11.43)
[2023-11-19] MEDS: sodium chloride 0.9% 1,000 ML 999 ML IV (22:50)
[2023-11-19] MEDS: insulin regular-human 100 units/1 mL 10 UNIT IVP (22:50)
[2023-11-19 23:02] LABS: Ketone (Acetest) Serum Negative (Negative)
[2023-11-19 23:05] LABS: Alanine Aminotransferase 24 U/L (0-41); Alkaline Phosphatase 137 U/L (40-130); Anion Gap 14.7 (5-19); Aspartate Amino Transferase 46 U/L (0-40); Blood Urea Nitrogen 20 mg/dL (6-20); Calcium 9.7 mg/dL (8.5-10.5); Carbon Dioxide 28 mmol/L (22-29); Chloride 98 mmol/L (98-107); Creatinine Clr Calc Pharmacy 81.0378; Globulin 3.8 g/dL (1.3-4.6); Glomerular Filtration Rate 62.6 mL/min (90-130); Glucose 339 mg/dL (65-115); Osmolality Calculated 300 mOsm/kg (285-295); Potassium 3.7 mmol/L (3.5-5.1); Sodium 137 mmol/L (136-145); Total Protein 7.8 g/dL (6.6-8.7)
[2023-11-19 23:52] LABS: Glucose Point of Care 217 mg/dL (70-110)
[2023-11-20 00:42] VITALS: BP 158/89; PULSE 89; RESP 16; O2SAT 98
== END 2023-11-20 00:44 | disposition home or self-care (01) ==
PROVIDERS: Emergency Provider Emergency Medicine; PCP Nurse Practitioner Family
DX: E11.65 Type 2 diabetes mellitus with hyperglycemia (principal); Z91.148 Patient's other noncompliance with medication regimen for other reason; Z79.02 Long term (current) use of antithrombotics/antiplatelets; Z79.82 Long term (current) use of aspirin; Z79.4 Long term (current) use of insulin; I25.10 Atherosclerotic heart disease of native coronary artery without angina pectoris; E78.5 Hyperlipidemia, unspecified; I10 Essential (primary) hypertension
CPT/HCPCS: 36416; 80053; 82009; 82962; 85025; 96361; 96374; 99284; J1815; J7030

== ENCOUNTER → 2023-11-27 09:15 | Outpatient (BNVA) | payer MEDICAID, SELFPAY | PROVIDERS: PCP Nurse Practitioner Family; Visit Provider Student in an Organized Health Care Education/Training Program | DX: M94.261 Chondromalacia, right knee (principal); M23.306 Other meniscus derangements, unspecified meniscus, right knee; M25.561 Pain in right knee; M25.562 Pain in left knee | CPT/HCPCS: 73560; 73565; 99214 ==

== ENCOUNTER 2023-11-28 22:32 | Emergency (ER) | payer MEDICAID, SELFPAY ==
[2023-11-28 22:34] VITALS: BP 98/75; PULSE 75; RESP 17; TEMP 36.4; O2SAT 96; BMI 29.8
--- NOTE | 2023-11-28 22:38 | ED_ITS ---
HPI - Dizziness 2 General: Chief Complaint: Dizziness Stated Complaint: DIZZY Time Seen by Provider: 11/28/23 22:34 History of Present Illness: HPI Narrative: Patient presents to the ER after taking 1 Tylenol 3 at approximately 230 and then a bath 3:00 he began to feel intermittent episodes of dizziness. He had not eaten up until that time that his neighbor gave him some crackers and his did not help his episodic dizziness. Patient has no other complaints at this time. Review of Systems 2 General: Reports: 10 or more systems reviewed and unremarkable except in HPI and below PFSH ED 2 PFSH: Medical History Acute kidney injury Coronary artery disease Chronic low back pain Dyslipidemia Benign essential hypertension with target blood pressure below 140/90 Type 2 diabetes mellitus Atypical chest pain Epilepsy Obesity Glucose intolerance Smoker Hypothyroidism Surgical History H/O heart artery stent 07/11/2020-Cardiac stent placement mid LAD H/O umbilical hernia repair History of appendectomy Family History Father , at age 74 Family history of premature coronary artery disease Had a myocardial infarction in his 40s. Diabetes CAD (coronary artery disease) Chronic kidney disease (CKD) Stroke Brother Family history of premature coronary artery disease CAD (coronary artery disease) Had [place] in the 50s Diabetes Stroke Grandmother CAD (coronary artery disease) Diabetes Grandfather CAD (coronary artery disease) Mother , at age 84 CAD (coronary artery disease) Cancer Diabetes COVID-19 Family/Other Lung disease Denies family history of Clotting disorder Dementia Suicide Anesthesia complication Bleeding disorder Social History Smoking and tobacco/nicotine status: current every day tobacco/nicotine user Alcohol intake: current Alcohol intake frequency: holidays/special occasions only Substance/Drug Use: never Household members: spouse Housing: House Marital status: Current occupational status: disabled Physical Exam 2 Const: COMMON NORMALS: no acute distress, average body habitus, patient oriented x3, no limitations, healthy appearing, alert and well nourished HENMT: COMMON NORMALS: normocephalic, atraumatic, hearing grossly normal bilaterally, external ears normal, EAC's normal, TM's normal bilaterally, Normal external nose present and moist oral mucous membranes HEAD & SCALP: n ormocephalic and atraumatic NOSE: Normal external nose present EXTERNAL EAR: Yes external ears normal EXTERNAL AUDITORY CANAL: EAC's normal T YMPANIC MEMBRANE: TM's normal bilaterally Eye: COMMON NORMALS: Equal, round and reactive pupils present, EOMs intact bilaterally, conjunctivae normal and no scleral icterus CONJUNCTIVA: Yes conjunctivae normal PUPIL: Yes Equal, round and reactive pupils present Neck/C-Spine: COMMON NORMALS: full ROM, no lymphadenopathy, supple, no meningeal signs and no JVD Chest: COMMONS NORMALS: normal inspection of the chest and normal palpation of entire chest wall Resp: COMMON NORMALS: normal respiratory effort, No retractions, No use of accessory muscles and clear to auscultation bilaterally AUSCULTATION: clear to auscultation bilaterally Cardio: COMMON NORMALS: no JVD, regular rate, regular rhythm, S1 normal heart sound present, S2 normal heart sound present, No gallops present (Cardio), No clicks present (Cardio), No murmurs present (Cardio) and No rub (Cardio) R ATE: regular rate RHYTHM: regular rhythm HEART SOUNDS: S1 normal heart sound present and S2 normal heart sound present GI: COMMON NORMALS: Normal to inspection, nondistended, normoactive bowel sounds present, Soft to palpation, non-tender, No hepatosplenomegaly present and no masses PALPATION: Yes Soft to palpation and Yes No hepatosplenomegaly present Neuro: COMMON NORMALS: patient oriented x3 SENSORIUM/ORIENTATION: Yes alert MENINGEAL SIGNS: Yes no meningeal signs Course 2 Vital Signs: Vital signs: Vital Signs Temperature 97.6 F 11/28/23 22:34 Pulse Rate 63 11/29/23 00:46 Respiratory Rate 18 11/29/23 00:46 Blood Pressure 122/82 11/29/23 00:46 Pulse Oximetry 96 11/29/23 00:46 Oxygen Delivery Me thod Room Air 11/28/23 22:46 MDM - Dizziness Medical Decision Making Presented with dizziness was likely from adverse medication reaction, lab work was obtained which was stable for the patient otherwise unremarkable. Patient did not have any dizziness episodes while in ER. Patient will be instructed not to take anymore the medicine and discharged home. Lab Data 11/28/23 22:54 11/28/23 22:54 Laboratory Results WBC 8.99 10^3/uL (3.29-11.43) 11/28/23 22:54 RBC 4.91 10^6/uL (3.85-5.65) 11/28/23 22:54 Hgb 14.60 g/dL (11.27-16.99) 11/28/23 22:54 Hct 43.9 % (37-53) 11/28/23 22:54 MCV 89.4 fl (82-101) 11/28/23 22:54 MCH 29.7 pg (27-33) 11/28/23 22:54 MCHC 33.3 g/dL (30-55) 11/28/23 22:54 RDW 13.0 % (12.1-15.1) 11/28/23 22:54 Plt Count 146 10^3/cmm (157-399) L 11/28/23 22:54 MPV 10.4 fL (7.4-10.4) 11/28/23 22:54 Neut % (Auto) 70.9 % 11/28/23 22:54 Lymph % (Auto) 15.7 % 11/28/23 22:54 [place] % (Auto) 8.3 % 11/28/23 22:54 Eos % (Auto) 3.8 % 11/28/23 22:54 Baso % (Auto) 0.9 % 11/28/23 22:54 Neut # (Auto) 6.37 10^3/uL (1.8-7.7) 11/28/23 22:54 Lymph # (Auto) 1.4 10^3/uL (0.8-4.8) 11/28/23 22:54 [place] # (Auto) 0.8 10^3/uL (0.2-0.9) 11/28/23 22:54 Eos # (Auto) 0.3 10^3/uL (0.0-0.8) 11/28/23 22:54 Baso # (Auto) 0.1 10^3/uL (0.0-0.1) 11/28/23 22:54 Nucleated RBC % (auto) 0 % 11/28/23 22:54 Nucleated RBCs # 0.0 /100WBC 11/28/23 22:54 Sodium 139 mmol/L (136-145) 11/28/23 22:54 Potassium 4.5 mmol/L (3.5-5.1) 11/28/23 22:54 Chloride 100 mmol/L (98-107) 11/28/23 22:54 Carbon Dioxide 27 mmol/L (22-29) 11/28/23 22:54 Anion Gap 16.5 (5-19) 11/28/23 22:54 BUN 21 mg/dL (6-20) H 11/28/23 22:54 Creatinine 1.6 mg/dL (0.7-1.2) H 11/28/23 22:54 GFR Calculation 44.9 mL/min (90-130) L 11/28/23 22:54 Glucose 203 mg/dL (65-115) H 11/28/23 22:54 Calculated Osmolality 297 mOsm/kg (285-295) H 11/28/23 22:54 Calcium 9.5 mg/dL (8.5-10.5) 11/28/23 22:54 Total Bilirubin 1.5 mg/dL (0.15-1.2) H 11/28/23 22:54 AST 45 U/L (0-40) H 11/28/23 22:54 ALT 32 U/L (0-41) 11/28/23 22:54 Alkaline Phosphatase 138 U/L (40-130) H 11/28/23 22:54 Total Protein 8.1 g/dL (6.6-8.7) 11/28/23 22:54 Albumin 4.1 g/dL (3.5-5.2) 11/28/23 22:54 Globulin 4.0 g/dL (1.3-4.6) 11/28/23 22:54 No radiology studies performed this visit Discharge Plan Discharge Patient Disposition: Home Clinical Impression: Adverse drug reaction Qualifiers: Encounter type: initial encounter Qualified Code(s): T50.905A - Adverse effect of unspecified drugs, medicaments and biological substances, initial encounter Condition: Stable Prescriptions: No Action allopurinol 100 mg tablet 100 mg PO DAILY PRN (Reason: GOUT) (DME) Fast Form Ulnar Gutter See Rx Instructions .Route .MEDSUPPLY Qty: 1 0RF Rx Instructions: As directed insulin glargine 100 unit/mL solution 25 unit SUBCUT DAILY 30 Days Qty: 15 1RF acetaminophen-codeine 300-30 mg tablet 1 tab PO BID PRN (Reason: pain) 7 Days Qty: 14 0RF ([facility] [place] OneTouch Ultra Test Strip See Rx Instructions .Route Qty: 100 1RF Rx Instructions: As directed patient has one touch ultra 2 glucometer ([facility] [place] Dexcom G7 [employer] Misc See Rx Instructions .Route Qty: 1 0RF Rx Instructions: As directed levothyroxine 150 mcg tablet See Rx Instructions .ROUTE .COMPLEX Qty: 30 0RF Dose Instruction: TAKE 1 CAPSULE BY MOUTH DAILY Rx Instructions: TAKE 1 CAPSULE BY MOUTH DAILY Plavix 75 mg tablet 75 mg PO DAILY@0700 Qty: 90 3RF Rx Instructions: last filled jan 2022 lisinopril 40 mg tablet 40 mg PO DAILY Qty: 90 3RF metoprolol tartrate 25 mg tablet 50 mg PO DAILY Qty: 90 6RF nitroglycerin 0.4 mg tablet, sublingual 0.4 mg SUBLINGUAL Q5M PRN (Reason: chest pain) 30 Days Qty: 30 3RF Rx Instructions: until response; do not exceed 3 doses per episode rosuvastatin 10 mg tablet 10 mg PO DAILY Qty: 90 1RF aspirin 81 mg tablet,chewable 81 mg PO DAILY@0700 Qty: 90 3RF ([facility] [place] Dexcom G7 Sensor Device See Rx Instructions .ROUTE .COMPLEX Qty: 3 1RF Dose Instruction: USE DIRECTED Rx Instructions: USE DIRECTED levetiracetam 750 mg tablet 1,500 mg PO DAILY diclofenac sodium [Voltaren Arthritis Pain] 1 % gel 4 g topical QID PRN (Reason: Pain) Tylenol Arthritis Pain 650 mg tablet extended release 1,300 mg PO Q8H PRN (Reason: pain) ([facility] [place] Blood Glucose Monitoring Kit See Rx Instructions .Route Qty: 1 0RF Rx Instructions: As directed ([facility] [place] lancets Misc See Rx Instructions .Route Qty: 200 0RF Rx Instructions: As directed ([facility] [place] Blood Glucose Test Strip See Rx Instructions .Route Qty: 50 0RF Rx Instructions: As directed bacitracin 500 unit/gram ointment 1 applic topical DAILY Qty: 14 0RF celecoxib 100 mg capsule 100 mg PO BID Qty: 20 0RF methocarbamol 750 mg tablet 750 mg PO TID PRN (Reason: back pain) Qty: 15 0RF Discharge Orders: Discharge ED (Routine); Ordered 11/29/23 Ordered By: Sedrick Ramsey Referrals: Dorita Flaherty FNP [Primary Care Provider] - 1 week Patient Instructions: Adverse Drug Reaction (ED) Activity Restrictions/Additional Instructions: Please do not take any more your Tylenol threes with codeine as this may be the cause of your dizziness from an adverse drug reaction. Please drink plenty of fluids. Please follow-up with your family practice physician for further evaluation And treatment. Print Language: Yakut Coding Level of Care Code ED Lunchroom Worker for Marva Bunn
[2023-11-28 22:46] VITALS: BP 107/69; PULSE 74; RESP 18; O2SAT 96
[2023-11-28 22:57] LABS: Basophils # 0.1 10^3/uL (0.0-0.1); Basophils % 0.9 %; Eosinophils # 0.3 10^3/uL (0.0-0.8); Eosinophils % 3.8 %; Hematocrit 43.9 % (37-53); Lymphocytes # 1.4 10^3/uL (0.8-4.8); Lymphocytes % 15.7 %; Mean Corpuscular HGB Conc 33.3 g/dL (30-55); Mean Corpuscular Hemoglobin 29.7 pg (27-33); Mean Corpuscular Volume 89.4 fl (82-101); Mean Platelet Volume 10.4 fL (7.4-10.4); Monocytes # 0.8 10^3/uL (0.2-0.9); Monocytes % 8.3 %; Neutrophils # 6.37 10^3/uL (1.8-7.7); Neutrophils % 70.9 %; Nucleated Red Blood Cells % 0 %; Platelet Count 146 10^3/cmm (157-399); Red Blood Count 4.91 10^6/uL (3.85-5.65); White Blood Count 8.99 10^3/uL (3.29-11.43)
[2023-11-28 23:14] LABS: Alanine Aminotransferase 32 U/L (0-41); Albumin Level 4.1 g/dL (3.5-5.2); Alkaline Phosphatase 138 U/L (40-130); Anion Gap 16.5 (5-19); Aspartate Amino Transferase 45 U/L (0-40); Blood Urea Nitrogen 21 mg/dL (6-20); Calcium 9.5 mg/dL (8.5-10.5); Carbon Dioxide 27 mmol/L (22-29); Chloride 100 mmol/L (98-107); Creatinine Clr Calc Pharmacy 59.4554; Glomerular Filtration Rate 44.9 mL/min (90-130); Glucose 203 mg/dL (65-115); Osmolality Calculated 297 mOsm/kg (285-295); Potassium 4.5 mmol/L (3.5-5.1); Sodium 139 mmol/L (136-145); Total Bilirubin 1.5 mg/dL (0.15-1.2); Total Protein 8.1 g/dL (6.6-8.7)
[2023-11-29 00:46] VITALS: BP 122/82; PULSE 63; RESP 18; O2SAT 96
== END 2023-11-29 00:35 | disposition home or self-care (01) ==
PROVIDERS: Emergency Provider Emergency Medicine; PCP Nurse Practitioner Family
DX: R42 Dizziness and giddiness (principal); T39.1X5A Adverse effect of 4-Aminophenol derivatives, initial encounter; Z79.02 Long term (current) use of antithrombotics/antiplatelets; Z79.82 Long term (current) use of aspirin; Z79.4 Long term (current) use of insulin; Z72.0 Tobacco use; I25.10 Atherosclerotic heart disease of native coronary artery without angina pectoris; E78.5 Hyperlipidemia, unspecified; I10 Essential (primary) hypertension; E11.9 Type 2 diabetes mellitus without complications
CPT/HCPCS: 36415; 80053; 85025; 99283

== ENCOUNTER 2023-12-04 13:41 | Emergency (ER) | payer MEDICAID, SELFPAY ==
[2023-12-04 14:18] VITALS: BP 96/57; PULSE 78; RESP 16; TEMP 36.6; O2SAT 95
--- NOTE | 2023-12-04 14:25 | W.ED.BACK ---
HPI - Back Pain/Injury General: Chief Complaint: Back Pain/Injury Stated Complaint: low back pain Time Seen by Provider: 12/04/23 14:25 History of Present Illness: 58-year-old male patient reports a couple days ago he had taking a Tylenol 3 with nothing on his stomach that made him dizzy. Patient reports stumbling and almost falling but not falling completely. Since then he has had a pain in his low back that radiates down into his hips. Patient is able to ambulate. Patient denies fall to the ground or other injury. Patient appears nontoxic. Review of Systems General: Reports: 10 or more systems reviewed and unremarkable except in HPI and below Musc: Reports: back pain PFSH ED PFSH: Medical History Acute kidney injury Coronary artery disease Chronic low back pain Dyslipidemia Benign essential hypertension with target blood pressure below 140/90 Type 2 diabetes mellitus Atypical chest pain Epilepsy Obesity Glucose intolerance Smoker Hypothyroidism Surgical History H/O heart artery stent 07/11/2020-Cardiac stent placement mid LAD H/O umbilical hernia repair History of appendectomy Family History Father , at age 74 Family history of premature coronary artery disease Had a myocardial infarction in his 40s. Diabetes CAD (coronary artery disease) Chronic kidney disease (CKD) Stroke Brother Family history of premature coronary artery disease CAD (coronary artery disease) Had [place] in the 50s Diabetes Stroke Grandmother CAD (coronary artery disease) Diabetes Grandfather CAD (coronary artery disease) Mother , at age 84 CAD (coronary artery disease) Cancer Diabetes COVID-19 Family/Other Lung disease Denies family history of Clotting disorder Dementia Suicide Anesthesia complication Bleeding disorder Social History Smoking and tobacco/nicotine status: current every day tobacco/nicotine user Alcohol intake: current Alcohol intake frequency: holidays/special occasions only Substance/Drug Use: never Household members: spouse Housing: House Marital status: Current occupational status: disabled Physical Exam Const: COMMON NORMALS: alert HENMT: COMMON NORMALS: normocephalic HEAD & SCALP: normocephalic Neck/C-Spine: COMMON NORMALS: full ROM Resp: COMMON NORMALS: normal respiratory effort Cardio: COMMON NORMALS: regular rate RATE: regular rate GI: COMMON NORMALS: Soft to palpation and non-tender PALPATION: Yes Soft to palpation Back/Pelvis: COMMON NORMALS: thoracic and lumbar spine normal to inspection Extremity: COMMON NORMALS: full ROM Neuro: SENSORIUM/ORIENTATION: Yes alert Skin: COMMON NORMALS: turgor normal GENERAL SKIN EXAM: turgor normal Course Vital Signs: Vital signs: Vital Signs Temperature 97.8 F 12/04/23 14:18 Pulse Rate 78 12/04/23 14:18 Respiratory Rate 16 12/04/23 14:18 Blood Pressure 96/57 12/04/23 14:18 Pulse Oximetry 95 12/04/23 14:18 Oxygen Delivery Me thod Room Air 12/04/23 14:18 MDM - Back Pain/Injury Medical Decision Making 58-year-old male patient comes in today with low back pain. On exam patient has some muscle tenderness in the bilateral areas of the distal lumbar spine. Differential diagnosis intervertebral disc disease, facet arthropathy, lumbar strain. Patient describes an event that probably he has a lumbar strain. Patient was given a dose of Toradol today to assist with his pain control. Patient will continue with his routine medications for pain at home. Patient recommended to follow-up with his orthopedic surgeon for further evaluation and treatment. Patient reports understanding of care plan and need for follow-up. No x-rays were performed because no fall occurred. No radiology studies performed this visit Discharge Plan Discharge Patient Disposition: Home Clinical Impression: Strain of lumbar spine Qualifiers: Encounter type: initial encounter Qualified Code(s): S39.012A - Strain of muscle, fascia and tendon of lower back, initial encounter Condition: Stable Prescriptions: No Action allopurinol 100 mg tablet 100 mg PO DAILY PRN (Reason: GOUT) (DME) Fast Form Ulnar Gutter See Rx Instructions .Route .MEDSUPPLY Qty: 1 0RF Rx Instructions: As directed insulin glargine 100 unit/mL solution 25 unit SUBCUT DAILY 30 Days Qty: 15 1RF acetaminophen-codeine 300-30 mg tablet 1 tab PO BID PRN (Reason: pain) 7 Days Qty: 14 0RF (DME) OneTouch Ultra Test Strip See Rx Instructions .Route Qty: 100 1RF Rx Instructions: As directed patient has one touch ultra 2 glucometer (DME) Dexcom G7 Gis Geographer Misc See Rx Instructions .Route Qty: 1 0RF Rx Instructions: As directed levothyroxine 150 mcg tablet See Rx Instructions .ROUTE .COMPLEX Qty: 30 0RF Dose Instruction: TAKE 1 CAPSULE BY MOUTH DAILY Rx Instructions: TAKE 1 CAPSULE BY MOUTH DAILY Plavix 75 mg tablet 75 mg PO DAILY@0700 Qty: 90 3RF Rx Instructions: last filled jan 2022 lisinopril 40 mg tablet 40 mg PO DAILY Qty: 90 3RF metoprolol tartrate 25 mg tablet 50 mg PO DAILY Qty: 90 6RF nitroglycerin 0.4 mg tablet, sublingual 0.4 mg SUBLINGUAL Q5M PRN (Reason: chest pain) 30 Days Qty: 30 3RF Rx Instructions: until response; do not exceed 3 doses per episode rosuvastatin 10 mg tablet 10 mg PO DAILY Qty: 90 1RF aspirin 81 mg tablet,chewable 81 mg PO DAILY@0700 Qty: 90 3RF (DME) Dexcom G7 Sensor Device See Rx Instructions .ROUTE .COMPLEX Qty: 3 1RF Dose Instruction: USE DIRECTED Rx Instructions: USE DIRECTED levetiracetam 750 mg tablet 1,500 mg PO DAILY diclofenac sodium [Voltaren Arthritis Pain] 1 % gel 4 g topical QID PRN (Reason: Pain) Tylenol Arthritis Pain 650 mg tablet extended release 1,300 mg PO Q8H PRN (Reason: pain) (DME) Blood Glucose Monitoring Kit See Rx Instructions .Route Qty: 1 0RF Rx Instructions: As directed (DME) lancets Misc See Rx Instructions .Route Qty: 200 0RF Rx Instructions: As directed (DME) Blood Glucose Test Strip See Rx Instructions .Route Qty: 50 0RF Rx Instructions: As directed bacitracin 500 unit/gram ointment 1 applic topical DAILY Qty: 14 0RF celecoxib 100 mg capsule 100 mg PO BID Qty: 20 0RF methocarbamol 750 mg tablet 750 mg PO TID PRN (Reason: back pain) Qty: 15 0RF Discharge Orders: Discharge ED (Routine); Ordered 12/04/23 Ordered By: Alexis Brian Referrals: Dorita Flaherty, SALES MANAGER [employer] [Primary Care Provider] - Discharge Diet: Usual diet Discharge Activity: Increase activity as tolerated Patient Instructions: Low Back Strain (ED) Activity Restrictions/Additional Instructions: Activity as tolerated. Use a cane to help with walking and avoiding tripping and stumbling. Continue with routine medications as prescribed. Follow-up with orthopedist for further evaluation and treatment. Coding Level of Care Code ED Nnps for Marva Bunn
[2023-12-04] MEDS: ketorolac 30 mg/mL INJ IM (14:41)
[2023-12-04 14:58] VITALS: BP 91/60; PULSE 87; O2SAT 92
[2023-12-04 15:04] VITALS: BP 91/60; PULSE 87; O2SAT 92
== END 2023-12-04 15:04 | disposition home or self-care (01) ==
PROVIDERS: Emergency Provider Nurse Practitioner Family; PCP Nurse Practitioner Family
DX: S39.012A Strain of muscle, fascia and tendon of lower back, initial encounter (principal); Z79.02 Long term (current) use of antithrombotics/antiplatelets; Z79.82 Long term (current) use of aspirin; Z79.4 Long term (current) use of insulin; Z72.0 Tobacco use; I25.10 Atherosclerotic heart disease of native coronary artery without angina pectoris; E78.5 Hyperlipidemia, unspecified; I10 Essential (primary) hypertension; E11.9 Type 2 diabetes mellitus without complications; W18.40XA Slipping, tripping and stumbling without falling, unspecified, initial encounter
CPT/HCPCS: 96372; 99284; J1885

== ENCOUNTER 2023-12-14 14:18 | Emergency (ER) | payer MEDICAID, SELFPAY ==
[2023-12-14 14:35] VITALS: BP 105/66; PULSE 76; RESP 16; TEMP 36.7; O2SAT 97; BMI 29.5
--- NOTE | 2023-12-14 15:46 | ED_ITS ---
HPI - Abdominal Pain 2 General: Chief Complaint: Abdominal Pain Stated Complaint: painful urination Time Seen by Provider: 12/14/23 15:28 History of Present Illness: 58-year-old male presents emergency room complaining of right flank pain with dysuria began earlier today. No fevers sweats or chills. Still having some cramping. He is intermittently had cramping in the right lower quadrant and into the right flank for last couple of weeks he was evaluated at a local primary care with an ultrasound a few weeks ago. He had not heard the results of this yet. He has not noticed any hematuria. Reviewing chart there was moderate amount of ascites and cirrhotic liver which was also seen on his 10/13/2023 CT Associated Symptoms: Reports dysuria; Denies chills and fever(s) Review of Systems 2 Const: Denies: fever(s) or chills Card: Denies: chest pain Resp: Denies: dyspnea GI: Denies: abdominal pain : Reports: dysuria; Denies: urinary frequency or urinary urgency Musc: Denies: neck pain or back pain Skin/Breast: Denies: rash PFSH ED 2 PFSH: Medical History Acute kidney injury Coronary artery disease Chronic low back pain Dyslipidemia Benign essential hypertension with target blood pressure below 140/90 Type 2 diabetes mellitus Atypical chest pain Epilepsy Obesity Glucose intolerance Smoker Hypothyroidism Surgical History (Updated 12/15/23 @ 13:24 by Gage Noriega MD) History of PTCA H/O heart artery stent 07/11/2020-Cardiac stent placement mid LAD H/O umbilical hernia repair History of appendectomy Family History Father , at age 74 Family history of premature coronary artery disease Had a myocardial infarction in his 40s. Diabetes CAD (coronary artery disease) Chronic kidney disease (CKD) Stroke Brother Family history of premature coronary artery disease CAD (coronary artery disease) Had [place] in the 50s Diabetes Stroke Grandmother CAD (coronary artery disease) Diabetes Grandfather CAD (coronary artery disease) Mother , at age 84 CAD (coronary artery disease) Cancer Diabetes COVID-19 Family/Other Lung disease Denies family history of Clotting disorder Dementia Suicide Anesthesia complication Bleeding disorder Social History (Reviewed 12/15/23 @ 13:07 by CLARE Coyne Smoking and tobacco/nicotine status: current every day tobacco/nicotine user Alcohol intake: current Alcohol intake frequency: holidays/special occasions only Substance/Drug Use: never Household members: spouse Housing: House Marital status: Current occupational status: disabled Physical Exam 2 Const: COMMON NORMALS: no acute distress GENERAL APPEARANCE: cooperative ORIENTATION/CONSCIOUSNESS: Yes awake, Yes oriented to person, Yes oriented to place and Yes oriented to time HENMT: COMMON NORMALS: normocephalic, atraumatic and hearing grossly normal bilaterally HEAD & SCALP: normocephalic and atraumatic Resp: COMMON NORMALS: normal respiratory effort, No retractions, No use of accessory muscles and clear to auscultation bilaterally AUSCULTATION: clear to auscultation bilaterally Cardio: COMMON NORMALS: regular rate, regular rhythm and No murmurs present (Cardio) RATE: regular rate RHYTHM: regular rhythm GI: COMMON NORMALS: Soft to palpation and No hepatosplenomegaly present A USCULTATION: Yes normoactive bowel sounds PALPATION: Yes Soft to palpation, No Tenderness to palpation present (GI), No Guarding due to palpation present (GI) and Yes No hepatosplenomegaly present Extremity: COMMON NORMALS: normal to inspection, capillary refill normal, no clubbing, cyanosis or edema, no calf tenderness and no pedal edema Neuro: SENSORIUM/ORIENTATION: Yes oriented to person, Yes oriented to place and Yes oriented to time Skin: COMMON NORMALS: no rashes or lesions noted GENERAL SKIN EXAM: no rashes or lesions noted Course 2 Vital Signs: Vital signs: Vital Signs Temperature 98.1 F 12/14/23 14:35 Pulse Rate 68 12/14/23 17:08 Respiratory Rate 16 12/14/23 14:35 Blood Pressure 112/63 12/14/23 17:08 Pulse Oximetry 93 12/14/23 17:08 Oxygen Delivery Me thod Room Air 12/14/23 17:08 MDM - Abdominal Pain Medical Decision Making No leukocytosis. 3+ glucose in urine but no sign of cystitis at this time. Patient states he has been able to urinate regularly. Discomfort in the right flank somewhat reproducible with palpation and movement. Discharge patient home have her follow-up with his primary care doctor return if is further problems. Lab Data 12/14/23 17:08 12/14/23 17:08 Labs/Radiology: Radiology Impressions Abdomen/Pelvis CT 12/14/23 16:06 IMPRESSION: 1. Cirrhotic liver with sequelae of portal hypertension including splenomegaly, ascites, and prominent abdominal varices. 2. Nonspecific bilateral perinephric fat stranding similar to prior. No nephrolithiasis visualized. 3. Prostatomegaly with circumferential bladder wall thickening likely secondary to chronic bladder outlet obstruction. Findings may also be secondary to cystitis in the appropriate clinical setting. COMMENTS: Consistent with the [employer]'s Incidental Findings Committee white paper (J Am Wilmar Radiol 2018): Any incidental renal lesion less than 1 cm or classified as too small to characterize, or any incidental cystic renal lesion characterized as simple-appearing, is likely benign. No follow-up imaging is recommended for these lesions per consensus recommendations based on imaging criteria. Laboratory Results WBC 8.23 10^3/uL (3.29-11.43) 12/14/23 17:08 RBC 4.45 10^6/uL (3.85-5.65) 12/14/23 17:08 Hgb 13.40 g/dL (11.27-16.99) 12/14/23 17:08 Hct 39.5 % (37-53) 12/14/23 17:08 MCV 88.8 fl (82-101) 12/14/23 17:08 MCH 30.1 pg (27-33) 12/14/23 17:08 MCHC 33.9 g/dL (30-55) 12/14/23 17:08 RDW 12.8 % (12.1-15.1) 12/14/23 17:08 Plt Count 99 10^3/cmm (157-399) L 12/14/23 17:08 MPV 10.9 fL (7.4-10.4) H 12/14/23 17:08 Neut % (Auto) 71.4 % 12/14/23 17:08 Lymph % (Auto) 14.2 % 12/14/23 17:08 [place] % (Auto) 9.0 % 12/14/23 17:08 Eos % (Auto) 4.1 % 12/14/23 17:08 Baso % (Auto) 1.1 % 12/14/23 17:08 Neut # (Auto) 5.87 10^3/uL (1.8-7.7) 12/14/23 17:08 Lymph # (Auto) 1.2 10^3/uL (0.8-4.8) 12/14/23 17:08 [place] # (Auto) 0.7 10^3/uL (0.2-0.9) 12/14/23 17:08 Eos # (Auto) 0.3 10^3/uL (0.0-0.8) 12/14/23 17:08 Baso # (Auto) 0.1 10^3/uL (0.0-0.1) 12/14/23 17:08 Nucleated RBC % (auto) 0 % 12/14/23 17:08 Nucleated RBCs # 0.0 /100WBC 12/14/23 17:08 Sodium 134 mmol/L (136-145) L 12/14/23 17:08 Potassium 3.9 mmol/L (3.5-5.1) 12/14/23 17:08 Chloride 97 mmol/L (98-107) L 12/14/23 17:08 Carbon Dioxide 28 mmol/L (22-29) 12/14/23 17:08 Anion Gap 12.9 (5-19) 12/14/23 17:08 BUN 22 mg/dL (6-20) H 12/14/23 17:08 Creatinine 1.3 mg/dL (0.7-1.2) H 12/14/23 17:08 GFR Calculation 57.1 mL/min (90-130) L 12/14/23 17:08 Glucose 269 mg/dL (65-115) H 12/14/23 17:08 Calculated Osmolality 291 mOsm/kg (285-295) 12/14/23 17:08 Calcium 8.9 mg/dL (8.5-10.5) 12/14/23 17:08 Total Bilirubin 1.5 mg/dL (0.15-1.2) H 12/14/23 17:08 AST 30 U/L (0-40) 12/14/23 17:08 ALT 21 U/L (0-41) 12/14/23 17:08 Alkaline Phosphatase 116 U/L (40-130) 12/14/23 17:08 Total Protein 7.7 g/dL (6.6-8.7) 12/14/23 17:08 Albumin 3.8 g/dL (3.5-5.2) 12/14/23 17:08 Globulin 3.9 g/dL (1.3-4.6) 12/14/23 17:08 Urine Color Yellow (Yellow) 12/14/23 15:51 Urine Appearance Clear (CLEAR) 12/14/23 15:51 Urine pH 6.0 (5-7) 12/14/23 15:51 Ur Specific [place] 1.013 (1.005-1.030) 12/14/23 15:51 Urine Protein Negative (Negative) 12/14/23 15:51 Urine Glucose (UA) 3+ (Normal) H 12/14/23 15:51 Urine Ketones Negative (Negative) 12/14/23 15:51 Urine Blood Negative (Negative) 12/14/23 15:51 Urine Nitrate Negative (Negative) 12/14/23 15:51 Urine Bilirubin Negative (Negative) 12/14/23 15:51 Urine Urobilinogen 1.0 mg/dL (Negative) 12/14/23 15:51 Ur Leukocyte Esterase Negative (Negative) 12/14/23 15:51 Amorphous Sediment Not Reportable 12/14/23 15:51 All radiology interpretation(s) finalized by discharge EKG Data EKG 1: Interpretation: Normal sinus rhythm rate of 87 CT interval and QT are normal no acute ST changes Discharge Plan Discharge Patient Disposition: Home Clinical Impression: Chronic abdominal pain, Cirrhosis of liver with ascites Type 2 diabetes mellitus Qualifiers: Diabetes mellitus termite helper insulin use: without termite helper use Diabetes mellitus complication status: with hyperglycemia Qualified Code(s): E11.65 - Type 2 diabetes mellitus with hyperglycemia Condition: Stable Prescriptions: No Action allopurinol 100 mg tablet 100 mg PO DAILY PRN (Reason: GOUT) (DME) Fast Form Ulnar Gutter See Rx Instructions .Route .MEDSUPPLY Qty: 1 0RF Rx Instructions: As directed insulin glargine 100 unit/mL solution 30 unit SUBCUT DAILY acetaminophen-codeine 300-30 mg tablet 1 tab PO BID PRN (Reason: pain) 7 Days Qty: 14 0RF (DME) OneTouch Ultra Test Strip See Rx Instructions .Route Qty: 100 1RF Rx Instructions: As directed patient has one touch ultra 2 glucometer (DME) Dexcom G7 Rotary Rig Engine Operator Misc See Rx Instructions .Route Qty: 1 0RF Rx Instructions: As directed levothyroxine 150 mcg tablet See Rx Instructions .ROUTE .COMPLEX Qty: 30 0RF Dose Instruction: TAKE 1 CAPSULE BY MOUTH DAILY Rx Instructions: TAKE 1 CAPSULE BY MOUTH DAILY Plavix 75 mg tablet 75 mg PO DAILY@0700 Qty: 90 3RF Rx Instructions: last filled jan 2022 lisinopril 40 mg tablet 40 mg PO DAILY Qty: 90 3RF metoprolol tartrate 25 mg tablet 50 mg PO DAILY Qty: 90 6RF nitroglycerin 0.4 mg tablet, sublingual 0.4 mg SUBLINGUAL Q5M PRN (Reason: chest pain) 30 Days Qty: 30 3RF Rx Instructions: until response; do not exceed 3 doses per episode rosuvastatin 10 mg tablet 10 mg PO DAILY Qty: 90 1RF aspirin 81 mg tablet,chewable 81 mg PO DAILY@0700 Qty: 90 3RF (DME) Dexcom G7 Sensor Device See Rx Instructions .ROUTE .COMPLEX Qty: 3 1RF Dose Instruction: USE DIRECTED Rx Instructions: USE DIRECTED levetiracetam 750 mg tablet 1,500 mg PO DAILY diclofenac sodium [Voltaren Arthritis Pain] 1 % gel 4 g topical QID PRN (Reason: Pain) Tylenol Arthritis Pain 650 mg tablet extended release 1,300 mg PO Q8H PRN (Reason: pain) (DME) Blood Glucose Monitoring Kit See Rx Instructions .Route Qty: 1 0RF Rx Instructions: As directed (DME) lancets Misc See Rx Instructions .Route Qty: 200 0RF Rx Instructions: As directed (DME) Blood Glucose Test Strip See Rx Instructions .Route Qty: 50 0RF Rx Instructions: As directed bacitracin 500 unit/gram ointment 1 applic topical DAILY Qty: 14 0RF celecoxib 100 mg capsule 100 mg PO BID Qty: 20 0RF methocarbamol 750 mg tablet 750 mg PO TID PRN (Reason: back pain) Qty: 15 0RF Discharge Orders: Discharge ED (Routine); Ordered 12/14/23 Ordered By: Mendel Bush Referrals: Dorita Flaherty, BIOLOGICAL SCIENCE TECHNICIAN [Primary Care Provider] - Discharge Diet: Usual diet Discharge Activity: Increase activity as tolerated Patient Instructions: Abdominal Pain (ED), Opioid Safety, Pain Management Activity Restrictions/Additional Instructions: Thank you for choosing [facility] for your healthcare needs today. It is very important that you follow up as instructed or that you return to the Emergency Department should you have concerns or if your condition changes or worsens in any way. You are seen today for chronic right-sided abdominal pain. Your glucose is slightly elevated and the CT shows cirrhosis of the liver with some fluid in the abdomen from the liver (ascites). Recommend that you follow-up with your primary care doctor regarding the CT and the previous ultrasound findings. There was no sign of infection or kidney stone on the urine and CT done today. Coding Level of Care Code ED Admission Nurse for Marva Bunn
[2023-12-14 16:00] LABS: Charge for UA Resulting for Rev
[2023-12-14 16:01] LABS: Bilirubin Urine Negative (Negative); Blood Urine Negative (Negative); Glucose Urine UA 3+ (Normal); Ketones Urine Negative (Negative); Leukocyte Esterase Urine Negative (Negative); Nitrate Urine Negative (Negative); Protein Urine Negative (Negative); Specific Gravity, Urine 1.013 (1.005-1.030); Urine Appearance Clear (CLEAR); Urine Color Yellow (Yellow)
--- NOTE | 2023-12-14 16:06 | CTR_ITS ---
PROCEDURE INFORMATION: Exam: CT Abdomen And Pelvis Without Contrast Exam date and time: 12/14/2023 4:18 PM Age: 58 years old Clinical indication: Abdominal pain; Flank; Right; Additional info: Flank pain TECHNIQUE: Imaging protocol: Computed tomography of the abdomen and pelvis without contrast. Radiation optimization: All CT scans at this facility use at least one of these dose optimization techniques: automated exposure control; mA and/or kV adjustment per patient size (includes targeted exams where dose is matched to clinical indication); or iterative reconstruction. COMPARISON: CT abdomen pelvis w con* [id number] 10/13/2023 11:41 PM RADIATION DOSE METRICS: Total DLP (mGy-cm): 896.23 FINDINGS: Coronary arteries: Coronary artery calcifications. Liver: Coarsened nodular hepatic contour compatible with cirrhosis. Gallbladder and biliary ducts: Status post cholecystectomy. Pancreas: Normal. No ductal dilation. Spleen: Splenomegaly measuring up to 16.3 cm. Adrenal glands: Normal. No mass. Kidneys and ureters: Unchanged nonspecific bilateral perinephric fat stranding. Stomach and bowel: No obstruction. No mucosal thickening. Appendix: No evidence of appendicitis. Intraperitoneal space: Mild ascites. Vasculature: Moderate atherosclerotic calcifications. Simple cyst within the lower pole of the left kidney, no follow-up needed. Prominent abdominal varices. Lymph nodes: Unremarkable. No enlarged lymph nodes. Urinary bladder: Circumferential bladder wall thickening nonspecific but likely due to chronic bladder outlet obstruction. Reproductive: Prostatomegaly measuring up to 5.1 cm. Bones/joints: Moderate spondylosis. Soft tissues: Unremarkable. CT/CT kidney stone [id number] IMPRESSION: 1. Cirrhotic liver with sequelae of portal hypertension including splenomegaly, ascites, and prominent abdominal varices. 2. Nonspecific bilateral perinephric fat stranding similar to prior. No nephrolithiasis visualized. 3. Prostatomegaly with circumferential bladder wall thickening likely secondary to chronic bladder outlet obstruction. Findings may also be secondary to cystitis in the appropriate clinical setting. COMMENTS: Consistent with the [employer]'s Incidental Findings Committee white paper (J Am Wilmar Radiol 2018): Any incidental renal lesion less than 1 cm or classified as too small to characterize, or any incidental cystic renal lesion characterized as simple-appearing, is likely benign. No follow-up imaging is recommended for these lesions per consensus recommendations based on imaging criteria.
[2023-12-14 17:08] VITALS: BP 112/63; PULSE 68; O2SAT 93
[2023-12-14 17:15] LABS: Basophils # 0.1 10^3/uL (0.0-0.1); Basophils % 1.1 %; Eosinophils # 0.3 10^3/uL (0.0-0.8); Eosinophils % 4.1 %; Hematocrit 39.5 % (37-53); Lymphocytes # 1.2 10^3/uL (0.8-4.8); Lymphocytes % 14.2 %; Mean Corpuscular HGB Conc 33.9 g/dL (30-55); Mean Corpuscular Hemoglobin 30.1 pg (27-33); Mean Corpuscular Volume 88.8 fl (82-101); Mean Platelet Volume 10.9 fL (7.4-10.4); Monocytes # 0.7 10^3/uL (0.2-0.9); Neutrophils # 5.87 10^3/uL (1.8-7.7); Neutrophils % 71.4 %; Nucleated Red Blood Cells % 0 %; Platelet Count 99 10^3/cmm (157-399); Red Blood Count 4.45 10^6/uL (3.85-5.65); Red Cell Distribution Width 12.8 % (12.1-15.1); White Blood Count 8.23 10^3/uL (3.29-11.43)
[2023-12-14 17:33] LABS: Alanine Aminotransferase 21 U/L (0-41); Albumin Level 3.8 g/dL (3.5-5.2); Alkaline Phosphatase 116 U/L (40-130); Anion Gap 12.9 (5-19); Aspartate Amino Transferase 30 U/L (0-40); Blood Urea Nitrogen 22 mg/dL (6-20); Calcium 8.9 mg/dL (8.5-10.5); Carbon Dioxide 28 mmol/L (22-29); Chloride 97 mmol/L (98-107); Globulin 3.9 g/dL (1.3-4.6); Glomerular Filtration Rate 57.1 mL/min (90-130); Glucose 269 mg/dL (65-115); Osmolality Calculated 291 mOsm/kg (285-295); Potassium 3.9 mmol/L (3.5-5.1); Sodium 134 mmol/L (136-145); Total Bilirubin 1.5 mg/dL (0.15-1.2); Total Protein 7.7 g/dL (6.6-8.7)
[2023-12-14 17:36] LABS: Creatinine Clr Calc Pharmacy 72.8503
[2023-12-14] MEDS: ondansetron 2 mg/ML SDV 2 mL 4 MG IVP (18:15)
[2023-12-14] MEDS: morphine 4 mg/mL SDV 1 mL 2 MG IVP (18:15)
== END 2023-12-14 18:37 | disposition home or self-care (01) ==
PROVIDERS: Emergency Medicine; Emergency Provider Family Medicine; PCP Nurse Practitioner Family
DX: E11.65 Type 2 diabetes mellitus with hyperglycemia (principal); G89.29 Other chronic pain; R10.31 Right lower quadrant pain; K74.60 Unspecified cirrhosis of liver; R18.8 Other ascites; Z79.4 Long term (current) use of insulin; Z79.02 Long term (current) use of antithrombotics/antiplatelets; Z79.82 Long term (current) use of aspirin; I25.10 Atherosclerotic heart disease of native coronary artery without angina pectoris; E78.5 Hyperlipidemia, unspecified; I10 Essential (primary) hypertension; Z72.0 Tobacco use
CPT/HCPCS: 36415; 74176; 80053; 81003; 81015; 85025; 96374; 96375; 99285; J2270; J2405

== ENCOUNTER → 2023-12-15 12:43 | Outpatient (BNVA) | payer MEDICAID, SELFPAY | PROVIDERS: PCP Nurse Practitioner Family; Visit Provider Internal Medicine Cardiovascular Disease | DX: I25.118 Atherosclerotic heart disease of native coronary artery with other forms of angina pectoris (principal); I10 Essential (primary) hypertension; E78.5 Hyperlipidemia, unspecified; Z95.5 Presence of coronary angioplasty implant and graft; E11.65 Type 2 diabetes mellitus with hyperglycemia; K74.60 Unspecified cirrhosis of liver; F17.200 Nicotine dependence, unspecified, uncomplicated; Z79.4 Long term (current) use of insulin | CPT/HCPCS: 99213 ==

== ENCOUNTER 2024-01-07 18:29 | Emergency (ER) | payer MEDICAID, SELFPAY ==
--- NOTE | 2024-01-07 18:34 | ECG_ITS ---
[facility] Test Date: 2024-01-07 Pat Name: Alonso Golden Department: Room: Gender: Male Material Engineer: : [id number] Requested By: Kerry Jeter Order Number: [id number] Mariaa MD: Sujata Flores M.D. Measurements Intervals [place] Rate: 96 P: 161 CO: 146 QRS: 228 QRSD: 102 T: 131 QT: 356 QTc: 452 Interpretive Statements ECTOPIC ATRIAL RHYTHM PATTERN CONSISTENT WITH PULMONARY DISEASE RIGHT VENTRICULAR HYPERTROPHY [SOME/ALL OF: PROMINENT R IN V1, LATE TRANSITION, RAD, AGUSTINA, SSS] Compared to ECG 11/11/2023 19:56:16 Ectopic atrial rhythm now present Right ventricular hypertrophy now present Atrial abnormality now present Sinus rhythm no longer present Left-axis deviation no longer present Left ventricular hypertrophy no longer present ST (T wave) deviation no longer present Electronically Signed On 01-08-2024 9:02:48 CDT by Sujata Flores M.D. [email or web address]
--- NOTE | 2024-01-07 18:37 | XRR_ITS ---
PROCEDURE INFORMATION: Exam: XR Chest Exam date and time: 01/07/2024 6:51 PM Age: 58 years old Clinical indication: Dyspnea; Prior surgery; Surgery date: 6+ months; Surgery type: Stent; Additional info: Chest pains and difficulty breathing x 1 day TECHNIQUE: Imaging protocol: Radiologic exam of the chest. Views: 1 view. COMPARISON: CR (CHEST, ) 11/11/2023 8:22 PM FINDINGS: Lungs: No focal consolidation. Stable right lower lobe calcified granuloma. Pleural spaces: No sizable pleural effusion. No pneumothorax. Heart/Mediastinum: Unremarkable cardiomediastinal silhouette. Bones/joints: The osseous structures are unremarkable. Soft tissues: Soft tissues are unremarkable as visualized. XR/XR chest 1V portable [id number] IMPRESSION: No acute findings.
[2024-01-07 18:43] VITALS: BP 113/73; PULSE 88; RESP 18; TEMP 36.6; O2SAT 95; BMI 29.7
[2024-01-07 19:07] LABS: Basophils # 0.1 10^3/uL (0.0-0.1); Basophils % 1.2 %; Eosinophils # 0.4 10^3/uL (0.0-0.8); Eosinophils % 4.2 %; Hematocrit 42.8 % (37-53); Lymphocytes # 1.3 10^3/uL (0.8-4.8); Lymphocytes % 14.5 %; Mean Corpuscular HGB Conc 34.6 g/dL (30-55); Mean Corpuscular Volume 86.8 fl (82-101); Mean Platelet Volume 11.1 fL (7.4-10.4); Monocytes # 0.8 10^3/uL (0.2-0.9); Monocytes % 8.4 %; Neutrophils # 6.56 10^3/uL (1.8-7.7); Neutrophils % 71.2 %; Nucleated Red Blood Cells % 0 %; Platelet Count 136 10^3/cmm (157-399); Red Blood Count 4.93 10^6/uL (3.85-5.65); Red Cell Distribution Width 13.2 % (12.1-15.1); White Blood Count 9.22 10^3/uL (3.29-11.43)
[2024-01-07 19:29] LABS: Troponin(5th) Baseline 23 ng/L (0-15)
[2024-01-07 19:30] LABS: Alanine Aminotransferase 40 U/L (0-41); Albumin Level 4.1 g/dL (3.5-5.2); Alkaline Phosphatase 155 U/L (40-130); Anion Gap 16.4 (5-19); Aspartate Amino Transferase 43 U/L (0-40); Blood Urea Nitrogen 29 mg/dL (6-20); Calcium 9.3 mg/dL (8.5-10.5); Carbon Dioxide 24 mmol/L (22-29); Chloride 96 mmol/L (98-107); Creatinine Clr Calc Pharmacy 73.0132; Globulin 3.7 g/dL (1.3-4.6); Glomerular Filtration Rate 57.1 mL/min (90-130); Glucose 341 mg/dL (65-115); Lipase 75 U/L (13-60); Osmolality Calculated 293 mOsm/kg (285-295); Potassium 4.4 mmol/L (3.5-5.1); Sodium 132 mmol/L (136-145); Total Bilirubin 1.2 mg/dL (0.15-1.2); Total Protein 7.8 g/dL (6.6-8.7)
[2024-01-07 19:38] VITALS: BP 82/62; PULSE 86; RESP 19; O2SAT 94
[2024-01-07 19:47] LABS: Slide Review Slide Review Perform
--- NOTE | 2024-01-07 20:03 | W.ED.CHESTPA ---
HPI - Chest Pain General: Chief Complaint: Chest Pain Stated Complaint: chest pain Time Seen by Provider: 01/07/24 19:07 History of Present Illness: 58-year-old man with history of tobacco dependence, diabetes, seizure disorder, hypertension and coronary artery disease status post stent who presents to the emergency room with chest pain. He says he had not been feeling good for the last few days and he walked to the [facility]. He did not realize that it closed and so then he started walking to the emergency room. He says on the way here he developed chest pain. It was a pressure in the center of his chest. It is let up some now that he is here. He says he just been feeling weak and tired. No chest pain prior to today. Some mild cough but he always has that as he is a smoker. Related Data Home Medications Medication Instructions Recorded Confirmed allopurinol 100 mg tablet 100 mg PO DAILY PRN GOUT 12/13/20 12/15/23 diclofenac sodium 1 % topical gel 4 g topical QID PRN Pain 04/20/23 12/15/23 (Voltaren Arthritis Pain) levetiracetam 750 mg tablet 1,500 mg PO DAILY 04/20/23 12/15/23 acetaminophen 650 mg 1,300 mg PO Q8H PRN pain 07/07/23 12/15/23 tablet,extended release (Tylenol Arthritis Pain) insulin glargine 100 unit/mL 30 unit SUBCUT DAILY 12/15/23 subcutaneous solution Previous Rx's Medication Instructions Recorded Fast Form Ulnar Gutter #1 ea 09/04/22 methocarbamol 750 mg tablet 750 mg PO TID PRN back pain #15 04/14/23 tabs blood sugar diagnostic (Blood #50 ea 07/08/23 Glucose Test strips) blood-glucose meter (Blood Glucose #1 ea 07/08/23 Monitoring kit) lancets #200 ea 07/08/23 blood sugar diagnostic (OneTouch #100 ea 07/14/23 Ultra Test strips) blood-glucose meter,continuous #1 ea 07/14/23 (Dexcom G7 Head Rose Grower) levothyroxine 150 mcg tablet See Rx Instructions .Route 07/31/23 .COMPLEX #30 tabs aspirin 81 mg chewable tablet 81 mg PO DAILY@0700 #90 tabs 08/01/23 clopidogrel 75 mg tablet (Plavix) 75 mg PO DAILY@0700 #90 tabs 08/01/23 lisinopril 40 mg tablet 40 mg PO DAILY #90 tabs 08/01/23 metoprolol tartrate 25 mg tablet 50 mg (2 x 25 mg) PO DAILY #90 tabs 08/01/23 nitroglycerin 0.4 mg sublingual 0.4 mg sublingual Q5M PRN chest 08/01/23 tablet pain 30 days #30 tabs rosuvastatin 10 mg tablet 10 mg PO DAILY #90 tabs 08/01/23 bacitracin 500 unit/gram topical 1 applic topical DAILY #14 grams 09/25/23 ointment celecoxib 100 mg capsule 100 mg PO BID #20 caps 10/26/23 acetaminophen 300 mg-codeine 30 mg 1 tab PO BID PRN pain 7 days #14 11/27/23 tablet tabs blood-glucose sensor (Dexcom G7 #3 ea 01/05/24 Sensor device) Allergies Allergy/AdvReac Type Severity Reaction Status Date / Time cephalexin [From Keflex] Allergy Unknown Verified 12/15/23 13:02 Cephalosporins Allergy hives Verified 12/15/23 13:02 Review of Systems Narrative: Constitutional symptoms: Negative except as documented in HPI. Skin symptoms: Negative except as documented in HPI. Eye symptoms: Negative except as documented in HPI. ENMT symptoms: Negative except as documented in HPI. Respiratory symptoms: Negative except as documented in HPI. Cardiovascular symptoms: Negative except as documented in HPI. Gastrointestinal symptoms: Negative except as documented in HPI. Genitourinary symptoms: Negative except as documented in HPI. Musculoskeletal symptoms: Negative except as documented in HPI. Neurologic symptoms: Negative except as documented in HPI. Psychiatric symptoms: Negative except as documented in HPI. Endocrine symptoms: Negative except as documented in HPI. PFSH ED PFSH: Medical History (Updated 01/07/24 @ 21:35 by Tila Chavez MD) Acute kidney injury Coronary artery disease Chronic low back pain Dyslipidemia Benign essential hypertension with target blood pressure below 140/90 Type 2 diabetes mellitus Atypical chest pain Epilepsy Obesity Glucose intolerance Smoker Hypothyroidism Surgical History (Updated 12/15/23 @ 13:24 by Gage Noriega MD) History of PTCA H/O heart artery stent 07/11/2020-Cardiac stent placement mid LAD H/O umbilical hernia repair History of appendectomy Family History Father , at age 74 Family history of premature coronary artery disease Had a myocardial infarction in his 40s. Diabetes CAD (coronary artery disease) Chronic kidney disease (CKD) Stroke Brother Family history of premature coronary artery disease CAD (coronary artery disease) Had VA in the 50s Diabetes Stroke Grandmother CAD (coronary artery disease) Diabetes Grandfather CAD (coronary artery disease) Mother , at age 84 CAD (coronary artery disease) Cancer Diabetes COVID-19 Family/Other Lung disease Denies family history of Clotting disorder Dementia Suicide Anesthesia complication Bleeding disorder Social History Smoking and tobacco/nicotine status: current every day tobacco/nicotine user Alcohol intake: current Alcohol intake frequency: holidays/special occasions only Substance/Drug Use: never Household members: spouse Housing: House Marital status: Current occupational status: disabled Physical Exam Narrative: EXAM NARRATIVE: General: Alert, no acute distress. Skin: Warm, dry. Head: Normocephalic, atraumatic. Neck: Supple, trachea midline. Eye: Extraocular movements are intact. Ears, nose, mouth and throat: mucosa moist. Cardiovascular: Regular, Normal peripheral perfusion. Respiratory: Lungs are clear to auscultation, respirations are non-labored, breath sounds are equal, Symmetrical chest wall expansion. Gastrointestinal: Soft, Nontender, Non distended Musculoskeletal: Normal ROM, no deformity. Neurological: Alert and oriented, No focal neurological deficit observed. Psychiatric: Cooperative, appropriate mood & affect. Course Vital Signs: Vital signs: Vital Signs Temperature 97.8 F 01/07/24 18:43 Pulse Rate 81 01/07/24 20:18 Respiratory Rate 18 01/07/24 20:18 Blood Pressure 82/62 01/07/24 19:38 Pulse Oximetry 96 01/07/24 20:18 Oxygen Delivery Me thod Room Air 01/07/24 19:38 MDM - Chest Pain Medical Decision Making Differential diagnosis for patient with chest pain includes but is not limited to and based on the above HPI, review of systems and physical exam: Pneumonia. unstable angina. angina. Acute coronary syndrome / VA. Pulmonary embolism. Costochondritis / musculoskeletal. Pleurisy. Pericarditis. Esophageal spasm. Pancreatis. Cholecystitis. Orders placed to evaluate differential diagnosis based on the above differential, HPI and physical exam EKG: Time 1834. Rate 96. Ectopic atrial rhythm/pulmonary pattern, No ST-T changes, no ectopy, normal NM & QRS intervals, This was reviewed and interpreted by myself the ER physician at 1838 Chest x-ray: No acute process. No infiltrate. No pneumothorax. This was reviewed and interpreted by myself the ER physician. Lab Review: Laboratory results were reviewed and interpreted by myself the emergency room physician. No leukocytosis. No anemia. Platelets are slightly low at 136. BUN and creatinine are 29 and 1.3 which is consistent with his last 3 readings. Glucose is high at 341. Serial troponins are negative. I reviewed the patient's medical record. Reexamination: Patient remained stable. No increased work of breathing. No altered mental status. No focal motor deficits. Assessment and plan: Noncardiac chest pain Dehydration Hyperglycemia ?Normal saline bolus and IV insulin. - Discharged home - Discussed findings and plan with patient. Answered any questions. - All laboratory values were reviewed and interpreted personally by myself, the ER physician - All imaging was reviewed and interpreted personally by myself, the ER physician. - Evaluation and treatment of this problem were appropriate in the emergency setting Lab Data 01/07/24 18:56 01/07/24 18:56 Radiology Impressions Chest X-Ray 01/07/24 18:37 IMPRESSION: No acute findings. Laboratory Results WBC 9.22 10^3/uL (3.29-11.43) 01/07/24 18:56 RBC 4.93 10^6/uL (3.85-5.65) 01/07/24 18:56 Hgb 14.80 g/dL (11.27-16.99) 01/07/24 18:56 Hct 42.8 % (37-53) 01/07/24 18:56 MCV 86.8 fl (82-101) 01/07/24 18:56 MCH 30.0 pg (27-33) 01/07/24 18:56 MCHC 34.6 g/dL (30-55) 01/07/24 18:56 RDW 13.2 % (12.1-15.1) 01/07/24 18:56 Plt Count 136 10^3/cmm (157-399) L 01/07/24 18:56 MPV 11.1 fL (7.4-10.4) H 01/07/24 18:56 Neut % (Auto) 71.2 % 01/07/24 18:56 Lymph % (Auto) 14.5 % 01/07/24 18:56 Page % (Auto) 8.4 % 01/07/24 18:56 Eos % (Auto) 4.2 % 01/07/24 18:56 Baso % (Auto) 1.2 % 01/07/24 18:56 Neut # (Auto) 6.56 10^3/uL (1.8-7.7) 01/07/24 18:56 Lymph # (Auto) 1.3 10^3/uL (0.8-4.8) 01/07/24 18:56 Page # (Auto) 0.8 10^3/uL (0.2-0.9) 01/07/24 18:56 Eos # (Auto) 0.4 10^3/uL (0.0-0.8) 01/07/24 18:56 Baso # (Auto) 0.1 10^3/uL (0.0-0.1) 01/07/24 18:56 Nucleated RBC % (auto) 0 % 01/07/24 18:56 Nucleated RBCs # 0.0 /100WBC 01/07/24 18:56 Sodium 132 mmol/L (136-145) L 01/07/24 18:56 Potassium 4.4 mmol/L (3.5-5.1) 01/07/24 18:56 Chloride 96 mmol/L (98-107) L 01/07/24 18:56 Carbon Dioxide 24 mmol/L (22-29) 01/07/24 18:56 Anion Gap 16.4 (5-19) 01/07/24 18:56 BUN 29 mg/dL (6-20) H 01/07/24 18:56 Creatinine 1.3 mg/dL (0.7-1.2) H 01/07/24 18:56 GFR Calculation 57.1 mL/min (90-130) L 01/07/24 18:56 Glucose 341 mg/dL (65-115) H 01/07/24 18:56 Calculated Osmolality 293 mOsm/kg (285-295) 01/07/24 18:56 Calcium 9.3 mg/dL (8.5-10.5) 01/07/24 18:56 Total Bilirubin 1.2 mg/dL (0.15-1.2) 01/07/24 18:56 AST 43 U/L (0-40) H 01/07/24 18:56 ALT 40 U/L (0-41) 01/07/24 18:56 Alkaline Phosphatase 155 U/L (40-130) H 01/07/24 18:56 Troponin T Baseline 23 ng/L (0-15) H 01/07/24 18:56 Troponin T 120 Minute 22.16 ng/L (0-15) H 01/07/24 20:35 Delta Troponin T -0.84 ABS# (0-10) L 01/07/24 20:35 Total Protein 7.8 g/dL (6.6-8.7) 01/07/24 18:56 Albumin 4.1 g/dL (3.5-5.2) 01/07/24 18:56 Globulin 3.7 g/dL (1.3-4.6) 01/07/24 18:56 Lipase 75 U/L (13-60) H 01/07/24 18:56 All radiology interpretation(s) finalized by discharge Discharge Plan Discharge Patient Disposition: Home Clinical Impression: Non-cardiac chest pain, Hyperglycemia, Dehydration Condition: Stable Prescriptions: No Action allopurinol 100 mg tablet 100 mg PO DAILY PRN (Reason: GOUT) (DME) Fast Form Ulnar Gutter See Rx Instructions .Route .MEDSUPPLY Qty: 1 0RF Rx Instructions: As directed insulin glargine 100 unit/mL solution 30 unit SUBCUT DAILY acetaminophen-codeine 300-30 mg tablet 1 tab PO BID PRN (Reason: pain) 7 Days Qty: 14 0RF (DME) OneTouch Ultra Test Strip See Rx Instructions .Route Qty: 100 1RF Rx Instructions: As directed patient has one touch ultra 2 glucometer ([facility] [place] Dexcom G7 Head Rose Grower Misc See Rx Instructions .Route Qty: 1 0RF Rx Instructions: As directed levothyroxine 150 mcg tablet See Rx Instructions .ROUTE .COMPLEX Qty: 30 0RF Dose Instruction: TAKE 1 CAPSULE BY MOUTH DAILY Rx Instructions: TAKE 1 CAPSULE BY MOUTH DAILY Plavix 75 mg tablet 75 mg PO DAILY@0700 Qty: 90 3RF Rx Instructions: last filled sept 2022 lisinopril 40 mg tablet 40 mg PO DAILY Qty: 90 3RF metoprolol tartrate 25 mg tablet 50 mg PO DAILY Qty: 90 6RF nitroglycerin 0.4 mg tablet, sublingual 0.4 mg SUBLINGUAL Q5M PRN (Reason: chest pain) 30 Days Qty: 30 3RF Rx Instructions: until response; do not exceed 3 doses per episode rosuvastatin 10 mg tablet 10 mg PO DAILY Qty: 90 1RF aspirin 81 mg tablet,chewable 81 mg PO DAILY@0700 Qty: 90 3RF (DME) Dexcom G7 Sensor Device See Rx Instructions .ROUTE .COMPLEX Qty: 3 1RF Dose Instruction: USE DIRECTED Rx Instructions: USE DIRECTED levetiracetam 750 mg tablet 1,500 mg PO DAILY diclofenac sodium [Voltaren Arthritis Pain] 1 % gel 4 g topical QID PRN (Reason: Pain) Tylenol Arthritis Pain 650 mg tablet extended release 1,300 mg PO Q8H PRN (Reason: pain) (DME) Blood Glucose Monitoring Kit See Rx Instructions .Route Qty: 1 0RF Rx Instructions: As directed (DME) lancets Misc See Rx Instructions .Route Qty: 200 0RF Rx Instructions: As directed (DME) Blood Glucose Test Strip See Rx Instructions .Route Qty: 50 0RF Rx Instructions: As directed bacitracin 500 unit/gram ointment 1 applic topical DAILY Qty: 14 0RF celecoxib 100 mg capsule 100 mg PO BID Qty: 20 0RF methocarbamol 750 mg tablet 750 mg PO TID PRN (Reason: back pain) Qty: 15 0RF Discharge Orders: Discharge ED (Routine); Ordered 01/07/24 Ordered By: Tila Chavez Referrals: Dorita Flaherty FNP [Primary Care Provider] - Discharge Diet: Usual diet Discharge Activity: Increase activity as tolerated Patient Instructions: Noncardiac Chest Pain (ED) Activity Restrictions/Additional Instructions: Thank you for choosing [facility] for your healthcare needs today. Please realize this is an emergency room and that we are providing you with a medical screening exam and this may not be complete and all inclusive of all the testing and or work up that you may need to determine your ailment or severity of your illness. You have been screened and evaluated and felt safe for discharge. Health conditions do change or evolve sometimes and as such it is important that you follow up with your Primary Doctor to be re checked, 3-5 days is a general good time frame for follow up. You are always welcome to return to the ED for re assessment if your symptoms are worsening or you have new concerns Coding Level of Care Code ED [facility]
[2024-01-07 20:18] VITALS: PULSE 81; RESP 18; O2SAT 96
--- NOTE | 2024-01-07 20:38 | ECG_ITS ---
[facility] Test Date: 2024-01-07 Pat Name: Alonso Golden Department: Room: Gender: Male Skate Maker: : 1965 Requested By: Kerry Jeter Order Number: [id number] Mariaa MD: Sujata Flores M.D. Measurements Intervals [place] Rate: 77 P: 22 CO: 162 QRS: -43 QRSD: 97 T: 64 QT: 414 QTc: 469 Interpretive Statements SINUS RHYTHM LEFT AXIS DEVIATION [QRS AXIS < -30] POSSIBLE SEPTAL MYOCARDIAL INFARCTION , OF INDETERMINATE AGE [30 ms Q WAVE IN V1/V2] POSSIBLE LATERAL MYOCARDIAL INFARCTION , PROBABLY OLD [30 ms Q WAVE IN I/aVL/V5/V6] Compared to ECG 01/07/2024 18:34:45 Left-axis deviation now present Myocardial infarct finding now present Ectopic atrial rhythm no longer present Right ventricular hypertrophy no longer present Atrial abnormality no longer present Electronically Signed On 01-08-2024 9:08:07 CDT by Sujata Flores M.D. [id number]
[2024-01-07] MEDS: sodium chloride 0.9% 1,000 ML 999 ML IV (20:41)
[2024-01-07] MEDS: insulin regular-human 100 units/1 mL 10 UNIT IVP (20:41)
[2024-01-07 21:04] LABS: Troponin 5 2HR 22.16 ng/L (0-15)
[2024-01-07 21:09] LABS: Troponin 5 2HR Delta -0.84 ABS# (0-10)
[2024-01-07 21:53] VITALS: BP 114/82; PULSE 81; RESP 19; O2SAT 96
== END 2024-01-07 21:54 | disposition home or self-care (01) ==
PROVIDERS: Emergency Medicine; Emergency Provider Emergency Medicine; PCP Nurse Practitioner Family
DX: R07.89 Other chest pain (principal); E86.0 Dehydration; E11.65 Type 2 diabetes mellitus with hyperglycemia; Z79.4 Long term (current) use of insulin; Z79.02 Long term (current) use of antithrombotics/antiplatelets; Z79.82 Long term (current) use of aspirin; Z72.0 Tobacco use; I25.10 Atherosclerotic heart disease of native coronary artery without angina pectoris; E78.5 Hyperlipidemia, unspecified; I10 Essential (primary) hypertension; E11.9 Type 2 diabetes mellitus without complications
CPT/HCPCS: 36415; 71045; 80053; 83690; 84484; 85025; 93005; 96374; 99285; J1815; J7030

== ENCOUNTER 2024-02-11 14:35 | Emergency (ER) | payer MEDICAID, SELFPAY ==
[2024-02-11 14:41] VITALS: BP 80/43; PULSE 67; RESP 16; TEMP 36.4; O2SAT 94; BMI 29.2
--- NOTE | 2024-02-11 14:46 | ECG_ITS ---
[facility] Test Date: 2024-02-11 Pat Name: Alonso Golden Department: Room: Gender: Male Doctor Of Radiology: : 1965 Requested By: Kerry Jeter Order Number: [id number] Mariaa MD: Sujata Flores M.D. Measurements Intervals [place] Rate: 66 P: 30 OK: 167 QRS: -30 QRSD: 105 T: 36 QT: 417 QTc: 438 Interpretive Statements SINUS RHYTHM POSSIBLE LATERAL MYOCARDIAL INFARCTION , PROBABLY OLD [30 ms Q WAVE IN I/aVL/V5/V6] Compared to ECG 01/07/2024 20:49:46 Left-axis deviation no longer present Myocardial infarct finding still present Electronically Signed On 02-11-2024 23:28:31 CDT by Sujata Flores M.D. [id number]
--- NOTE | 2024-02-11 14:47 | W.ED.GENADLT ---
HPI - General Adult General: Chief complaint: General Medical Stated complaint: ELEVATED BLOOD SUGAR Time Seen by Provider: 02/11/24 14:37 Source: patient and EMS Mode of arrival: EMS Limitations: no limitations History of Present Illness: 59-year-old male well-known to ER has history of diabetes he states that his blood sugars been running high today states that he is also had some hypotension with feeling weak and lightheaded. States he did have a fall but denies any injuries from this fall. He is on blood pressure medicine states he did take his blood pressure medicines this morning. He denies any fever denies any vomiting or diarrhea Associated symptoms: Deny chest pain, dyspnea, headache(s), nausea, rash or vomiting Related Data Home Medications Medication Instructions Recorded Confirmed allopurinol 100 mg tablet 100 mg PO DAILY PRN GOUT 12/13/20 01/20/24 diclofenac sodium 1 % topical gel 4 g topical QID PRN Pain 04/20/23 01/19/24 (Voltaren Arthritis Pain) acetaminophen 650 mg 1,300 mg PO Q8H PRN pain 07/07/23 01/19/24 tablet,extended release (Tylenol Arthritis Pain) insulin glargine 100 unit/mL 30 unit SUBCUT DAILY 12/15/23 01/19/24 subcutaneous solution Previous Rx's Medication Instructions Recorded Fast Form Ulnar Gutter #1 ea 09/04/22 methocarbamol 750 mg tablet 750 mg PO TID PRN back pain #15 04/14/23 tabs blood sugar diagnostic (Blood #50 ea 07/08/23 Glucose Test strips) blood-glucose meter (Blood Glucose #1 ea 07/08/23 Monitoring kit) lancets #200 ea 07/08/23 blood sugar diagnostic (OneTouch #100 ea 07/14/23 Ultra Test strips) blood-glucose meter,continuous #1 ea 07/14/23 (Dexcom G7 Line Service Attendant) aspirin 81 mg chewable tablet 81 mg PO DAILY@0700 #90 tabs 08/01/23 clopidogrel 75 mg tablet (Plavix) 75 mg PO DAILY@0700 #90 tabs 08/01/23 lisinopril 40 mg tablet 40 mg PO DAILY #90 tabs 08/01/23 metoprolol tartrate 25 mg tablet 50 mg (2 x 25 mg) PO DAILY #90 tabs 08/01/23 nitroglycerin 0.4 mg sublingual 0.4 mg sublingual Q5M PRN chest 08/01/23 tablet pain 30 days #30 tabs bacitracin 500 unit/gram topical 1 applic topical DAILY #14 grams 09/25/23 ointment celecoxib 100 mg capsule 100 mg PO BID #20 caps 10/26/23 acetaminophen 300 mg-codeine 30 mg 1 tab PO BID PRN pain 7 days #14 11/27/23 tablet tabs blood-glucose sensor (Dexcom G7 #3 ea 01/05/24 Sensor device) levothyroxine 150 mcg tablet See Rx Instructions .Route 01/15/24 .COMPLEX #150 tabs rosuvastatin 10 mg tablet See Rx Instructions .Route 01/21/24 .COMPLEX #150 tabs levetiracetam 750 mg tablet See Rx Instructions .Route 02/10/24 .COMPLEX #60 tabs Allergies Allergy/AdvReac Type Severity Reaction Status Date / Time cephalexin [From Keflex] Allergy Unknown Verified 01/21/24 07:58 Cephalosporins Allergy hives Verified 01/21/24 07:58 Review of Systems Const: Denies: fever(s), chills, body aches or change in appetite Eyes: Denies: blurry vision or eye discomfort ENMT: Denies: throat pain or dental pain Card: Denies: chest pain Resp: Denies: dyspnea GI: Denies: abdominal pain, nausea, vomiting or diarrhea Musc: Denies: neck pain or back pain Skin/Breast: Denies: rash Neuro: Reports: weakness in extremities; Denies: headache(s) PFSH ED PFSH: Medical History Acute kidney injury Coronary artery disease Chronic low back pain Dyslipidemia Benign essential hypertension with target blood pressure below 140/90 Type 2 diabetes mellitus Atypical chest pain Epilepsy Obesity Glucose intolerance Smoker Hypothyroidism Surgical History History of PTCA H/O heart artery stent 07/11/2020-Cardiac stent placement mid LAD H/O umbilical hernia repair History of appendectomy Family History Father , at age 74 Family history of premature coronary artery disease Had a myocardial infarction in his 40s. Diabetes CAD (coronary artery disease) Chronic kidney disease (CKD) Stroke Brother Family history of premature coronary artery disease CAD (coronary artery disease) Had [place] in the 50s Diabetes Stroke Grandmother CAD (coronary artery disease) Diabetes Grandfather CAD (coronary artery disease) Mother , at age 84 CAD (coronary artery disease) Cancer Diabetes COVID-19 Family/Other Lung disease Denies family history of Clotting disorder Dementia Suicide Anesthesia complication Bleeding disorder Social History Smoking and tobacco/nicotine status: current every day tobacco/nicotine user Alcohol intake: current Alcohol intake frequency: holidays/special occasions only Substance/Drug Use: never Household members: spouse Housing: House Marital status: Current occupational status: disabled Physical Exam Const: COMMON NORMALS: patient oriented x3 HENMT: COMMON NORMALS: normocephalic and atraumatic HEAD & SCALP: normocephalic and atraumatic Eye: COMMON NORMALS: Equal, round and reactive pupils present and EOMs intact bilaterally PUPIL: Yes Equal, round and reactive pupils present Neck/C-Spine: COMMON NORMALS: full ROM and supple Chest: COMMONS NORMALS: normal inspection of the chest and normal palpation of entire chest wall Resp: COMMON NORMALS: normal respiratory effort, No retractions, No use of accessory muscles and clear to auscultation bilaterally AUSCULTATION: clear to auscultation bilaterally Cardio: COMMON NORMALS: regular rate, regular rhythm and No murmurs present (Cardio) RATE: regular rate RHYTHM: regular rhythm GI: COMMON NORMALS: Normal to inspection, nondistended, normoactive bowel sounds present, Soft to palpation, non-tender and no masses PALPATION: Yes Soft to palpation Extremity: COMMON NORMALS: normal to inspection and full ROM Neuro: COMMON NORMALS: patient oriented x3, moves all extremities and no focal motor deficits Psych: COMMON NORMALS: mental status grossly normal, Normal thought process present and cooperative THOUGHT PROCESS: Normal thought process present Skin: COMMON NORMALS: no rashes or lesions noted and no wounds GENERAL SKIN EXAM: no rashes or lesions noted Course Vital Signs: Vital signs: Vital Signs Temperature 97.5 F L 02/11/24 14:41 Pulse Rate 74 02/11/24 16:19 Respiratory Rate 16 02/11/24 14:41 Blood Pressure 99/55 02/11/24 16:19 Pulse Oximetry 98 02/11/24 16:19 Oxygen Delivery Me thod Room Air 02/11/24 16:19 MDM - General Adult Medical Decision Making 59-year-old male who presented here with hyperglycemia has had some hypotension as well blood sugar and blood pressure both improved here with IV fluids he has no signs of infection his lactate here is normal and informed him he needs to hold his blood pressure medicine I want to watch patient for further make sure his blood pressure stayed stable but he is wanting to leave and I need to get the hell out of here . Informed him that as well as blood pressure was a 1 to make sure he did not continue to have hypotension he has medical decision-making capacity and did sign out AGAINST MEDICAL ADVICE Medical Records I reviewed the patient's medical records. Lab Data I reviewed the patient's lab results. 02/11/24 15:10 02/11/24 15:10 Radiology Impressions Chest X-Ray 02/11/24 14:57 IMPRESSION: 1. The lungs are clear. 2. Cardiomegaly. Laboratory Results WBC 7.07 10^3/uL (3.29-11.43) 02/11/24 15:10 RBC 4.67 10^6/uL (3.85-5.65) 02/11/24 15:10 Hgb 14.40 g/dL (11.27-16.99) 02/11/24 15:10 Hct 41.5 % (37-53) 02/11/24 15:10 MCV 88.9 fl (82-101) 02/11/24 15:10 MCH 30.8 pg (27-33) 02/11/24 15:10 MCHC 34.7 g/dL (30-55) 02/11/24 15:10 RDW 14.2 % (12.1-15.1) 02/11/24 15:10 Plt Count 106 10^3/cmm (157-399) L 02/11/24 15:10 MPV 11.2 fL (7.4-10.4) H 02/11/24 15:10 Neut % (Auto) 71.2 % 02/11/24 15:10 Lymph % (Auto) 15.3 % 02/11/24 15:10 Glascock % (Auto) 8.6 % 02/11/24 15:10 Eos % (Auto) 3.4 % 02/11/24 15:10 Baso % (Auto) 1.1 % 02/11/24 15:10 Neut # (Auto) 5.03 10^3/uL (1.8-7.7) 02/11/24 15:10 Lymph # (Auto) 1.1 10^3/uL (0.8-4.8) 02/11/24 15:10 Glascock # (Auto) 0.6 10^3/uL (0.2-0.9) 02/11/24 15:10 Eos # (Auto) 0.2 10^3/uL (0.0-0.8) 02/11/24 15:10 Baso # (Auto) 0.1 10^3/uL (0.0-0.1) 02/11/24 15:10 Nucleated RBC % (auto) 0 % 02/11/24 15:10 Nucleated RBCs # 0.0 /100WBC 02/11/24 15:10 Sodium 130 mmol/L (136-145) L 02/11/24 15:10 Potassium 4.9 mmol/L (3.5-5.1) 02/11/24 15:10 Chloride 95 mmol/L (98-107) L 02/11/24 15:10 Carbon Dioxide 26 mmol/L (22-29) 02/11/24 15:10 Anion Gap 13.9 (5-19) 02/11/24 15:10 BUN 23 mg/dL (6-20) H 02/11/24 15:10 Creatinine 1.9 mg/dL (0.7-1.2) H 02/11/24 15:10 GFR Calculation 36.7 mL/min (90-130) L 02/11/24 15:10 Glucose 515 mg/dL (65-115) H* 02/11/24 15:10 POC Glucose 341 mg/dL (70-110) H 02/11/24 16:17 Calculated Osmolality 297 mOsm/kg (285-295) H 02/11/24 15:10 Lactic Acid 1.9 mmol/L (0.5-2.2) 02/11/24 15:10 Calcium 9.3 mg/dL (8.5-10.5) 02/11/24 15:10 Total Bilirubin 1.1 mg/dL (0.15-1.2) 02/11/24 15:10 AST 47 U/L (0-40) H 02/11/24 15:10 ALT 44 U/L (0-41) H 02/11/24 15:10 Alkaline Phosphatase 190 U/L (40-130) H 02/11/24 15:10 Total Protein 7.2 g/dL (6.6-8.7) 02/11/24 15:10 Albumin 4.0 g/dL (3.5-5.2) 02/11/24 15:10 Globulin 3.2 g/dL (1.3-4.6) 02/11/24 15:10 TSH 4.51 uIU/mL (0.27-4.20) H 02/11/24 15:10 All radiology interpretation(s) finalized by discharge EKG Data EKG 1: I personally reviewed and interpreted this EKG as follows: EKG interpretation date: 02/11/24 EKG interpretation time: 14:47 Interpretation: nsr hr [address] elevation qrs 105 qtc 430 Computer generated interpretation: Chest X-Ray 02/11/24 14:57 IMPRESSION: 1. The lungs are clear. 2. Cardiomegaly. Discharge Plan Discharge Patient Disposition: Left Against Medical Advice Clinical Impression: Hyperglycemia, Weakness Condition: Stable Prescriptions: No Action allopurinol 100 mg tablet 100 mg PO DAILY PRN (Reason: GOUT) (DME) Fast Form Ulnar Gutter See Rx Instructions .Route .MEDSUPPLY Qty: 1 0RF Rx Instructions: As directed insulin glargine 100 unit/mL solution 30 unit SUBCUT DAILY acetaminophen-codeine 300-30 mg tablet 1 tab PO BID PRN (Reason: pain) 7 Days Qty: 14 0RF (DME) OneTouch Ultra Test Strip See Rx Instructions .Route Qty: 100 1RF Rx Instructions: As directed patient has one touch ultra 2 glucometer ([facility] [place]) Dexcom G7 Line Service Attendant Misc See Rx Instructions .Route Qty: 1 0RF Rx Instructions: As directed Plavix 75 mg tablet 75 mg PO DAILY@0700 Qty: 90 3RF Rx Instructions: last filled jan 2022 lisinopril 40 mg tablet 40 mg PO DAILY Qty: 90 3RF metoprolol tartrate 25 mg tablet 50 mg PO DAILY Qty: 90 6RF nitroglycerin 0.4 mg tablet, sublingual 0.4 mg SUBLINGUAL Q5M PRN (Reason: chest pain) 30 Days Qty: 30 3RF Rx Instructions: until response; do not exceed 3 doses per episode aspirin 81 mg tablet,chewable 81 mg PO DAILY@0700 Qty: 90 3RF (DME) Dexcom G7 Sensor Device See Rx Instructions .ROUTE .COMPLEX Qty: 3 1RF Dose Instruction: USE DIRECTED Rx Instructions: USE DIRECTED levothyroxine 150 mcg tablet See Rx Instructions .ROUTE .COMPLEX Qty: 150 0RF Dose Instruction: TAKE 1 TABLET BY MOUTH EVERY DAY Rx Instructions: TAKE 1 TABLET BY MOUTH EVERY DAY rosuvastatin 10 mg tablet See Rx Instructions .ROUTE .COMPLEX Qty: 150 0RF Dose Instruction: TAKE 1 TABLET BY MOUTH EVERY DAY Rx Instructions: TAKE 1 TABLET BY MOUTH EVERY DAY levetiracetam 750 mg tablet See Rx Instructions .ROUTE .COMPLEX Qty: 60 0RF Dose Instruction: TAKE ONE TABLET BY MOUTH TWICE DAILY Rx Instructions: TAKE ONE TABLET BY MOUTH TWICE DAILY diclofenac sodium [Voltaren Arthritis Pain] 1 % gel 4 g topical QID PRN (Reason: Pain) Tylenol Arthritis Pain 650 mg tablet extended release 1,300 mg PO Q8H PRN (Reason: pain) (DME) Blood Glucose Monitoring Kit See Rx Instructions .Route Qty: 1 0RF Rx Instructions: As directed (DME) lancets Misc See Rx Instructions .Route Qty: 200 0RF Rx Instructions: As directed (DME) Blood Glucose Test Strip See Rx Instructions .Route Qty: 50 0RF Rx Instructions: As directed bacitracin 500 unit/gram ointment 1 applic topical DAILY Qty: 14 0RF celecoxib 100 mg capsule 100 mg PO BID Qty: 20 0RF methocarbamol 750 mg tablet 750 mg PO TID PRN (Reason: back pain) Qty: 15 0RF Discharge Orders: Discharge ED (Routine); Ordered 02/11/24 Ordered By: Kerry Jeter Referrals: Dorita Flaherty FNP [Primary Care Provider] - 4-7 days Discharge Diet: Advance as tolerated Discharge Activity: Resume usual activity Patient Instructions: Hyperglycemia, Weakness (ED) Coding Level of Care Code ED Olive Pitter for Marva Bunn
--- NOTE | 2024-02-11 14:57 | XRR_ITS ---
PROCEDURE INFORMATION: Exam: XR Chest Exam date and time: 02/11/2024 3:20 PM Age: 59 years old Clinical indication: Shortness of breath; Additional info: SOB TECHNIQUE: Imaging protocol: Radiologic exam of the chest. Views: 1 view. COMPARISON: CR XR chest 1V portable [id number] 01/07/2024 6:51 PM FINDINGS: Lungs: The lungs are clear. Pleural spaces: No pneumothorax or pleural effusion. Heart/Mediastinum: Heart size is enlarged. Mediastinal contours unremarkable. Bones/joints: No acute osseous or soft tissue abnormality. XR/XR chest 1V portable [id number] IMPRESSION: 1. The lungs are clear. 2. Cardiomegaly.
[2024-02-11 15:01] LABS: Glucose Point of Care 493 mg/dL (70-110)
[2024-02-11] MEDS: sodium chloride 0.9% 1,000 ML 999 ML IV ×2 (15:06→15:15)
[2024-02-11] MEDS: insulin regular-human 100 units/1 mL 14 UNIT IVP (15:21)
[2024-02-11 15:36] LABS: Basophils # 0.1 10^3/uL (0.0-0.1); Basophils % 1.1 %; Eosinophils # 0.2 10^3/uL (0.0-0.8); Eosinophils % 3.4 %; Hematocrit 41.5 % (37-53); Lymphocytes # 1.1 10^3/uL (0.8-4.8); Lymphocytes % 15.3 %; Mean Corpuscular HGB Conc 34.7 g/dL (30-55); Mean Corpuscular Hemoglobin 30.8 pg (27-33); Mean Corpuscular Volume 88.9 fl (82-101); Mean Platelet Volume 11.2 fL (7.4-10.4); Monocytes # 0.6 10^3/uL (0.2-0.9); Monocytes % 8.6 %; Neutrophils # 5.03 10^3/uL (1.8-7.7); Neutrophils % 71.2 %; Nucleated Red Blood Cells % 0 %; Platelet Count 106 10^3/cmm (157-399); Red Blood Count 4.67 10^6/uL (3.85-5.65); Red Cell Distribution Width 14.2 % (12.1-15.1); White Blood Count 7.07 10^3/uL (3.29-11.43)
[2024-02-11 15:59] LABS: Lactic Sepsis W/Reflex 1.9 mmol/L (0.5-2.2)
[2024-02-11 16:09] LABS: Alanine Aminotransferase 44 U/L (0-41); Alkaline Phosphatase 190 U/L (40-130); Anion Gap 13.9 (5-19); Aspartate Amino Transferase 47 U/L (0-40); Blood Urea Nitrogen 23 mg/dL (6-20); Calcium 9.3 mg/dL (8.5-10.5); Carbon Dioxide 26 mmol/L (22-29); Chloride 95 mmol/L (98-107); Creatinine Clr Calc Pharmacy 49.0314; Globulin 3.2 g/dL (1.3-4.6); Glomerular Filtration Rate 36.7 mL/min (90-130); Osmolality Calculated 297 mOsm/kg (285-295); Potassium 4.9 mmol/L (3.5-5.1); Sodium 130 mmol/L (136-145); Thyroid Stimulating Hormone 4.51 uIU/mL (0.27-4.20); Total Bilirubin 1.1 mg/dL (0.15-1.2); Total Protein 7.2 g/dL (6.6-8.7)
[2024-02-11 16:11] LABS: Glucose 515 mg/dL (65-115)
[2024-02-11 16:15] VITALS: BP 96/54; PULSE 65; O2SAT 97
[2024-02-11 16:19] VITALS: BP 99/55; PULSE 74; O2SAT 98
[2024-02-11 16:22] LABS: Glucose Point of Care 341 mg/dL (70-110)
== END 2024-02-11 17:22 | disposition left against medical advice (07) ==
PROVIDERS: Emergency Provider Emergency Medicine; PCP Nurse Practitioner Family
DX: E11.65 Type 2 diabetes mellitus with hyperglycemia (principal); R53.1 Weakness; Z53.29 Procedure and treatment not carried out because of patient's decision for other reasons; Z79.02 Long term (current) use of antithrombotics/antiplatelets; Z79.82 Long term (current) use of aspirin; Z79.4 Long term (current) use of insulin; Z72.0 Tobacco use; I25.10 Atherosclerotic heart disease of native coronary artery without angina pectoris; E78.5 Hyperlipidemia, unspecified; I10 Essential (primary) hypertension
CPT/HCPCS: 36415; 36416; 71045; 80053; 82962; 83605; 84443; 85025; 87040; 93005; 96374; 99285; J1815; J7030

== ENCOUNTER → 2024-02-13 12:04 | Outpatient (BNVA) | payer MEDICAID, SELFPAY | PROVIDERS: PCP Nurse Practitioner Family; Visit Provider Family Medicine | DX: Z01.818 Encounter for other preprocedural examination (principal) | CPT/HCPCS: 80053; 83036; 85025 ==

== ENCOUNTER 2024-02-19 11:04 | Day surgery (SDC) | payer MEDICAID, SELFPAY ==
[2024-02-19] VITALS (8 sets, daily range): BP systolic 84–99; BP diastolic 48–65; PULSE 56–77; RESP 17–18; TEMP 36.5–36.6; O2SAT 95–98; BMI 30.1
[2024-02-19] MEDS: sodium chloride 0.9% 1,000 ML 30 ML IV (11:39)
[2024-02-19] MEDS: acetaminophen 1,000 MG/100 ML PIGGYBACK 400 MG IV (11:40)
[2024-02-19] MEDS: ketorolac 30 mg/mL INJ IVP (11:40)
[2024-02-19] MEDS: scopolamine 1.5 Patch 1 PATCH TRANSDERMA (11:46)
[2024-02-19 11:56] LABS: Glucose Point of Care 312 mg/dL (70-110)
--- NOTE | 2024-02-19 12:00 | ANES.PREANE2 ---
Pre-Anesthetic Assessment Height/Weight: Height 1.78 m Weight 95.254 kg Temp Pulse Resp BP Pulse Ox O2 Del Method 97.7 F 69 17 92/65 97 Room Air 02/19/24 11:26 02/19/24 11:26 02/19/24 11:26 02/19/24 11:26 02/19/24 11:26 02/19/24 11:32 Operation Date: 02/19/24 12:40 Proposed Procedures p Rright knee diagnostic and surgical arthroscopy with chondroplasty(Right) - Iker Villalobos DO Familial anesthetic complications: None Was Beta Tamiko taken within 24 hours: N/A Was Clonidine taken within 24 hours: N/A Last intake: Intake Last Liquid Date 02/18/24 Last Liquid Time 21:00 Last Solid Date 02/18/24 Last Solid Time 20:00 Social Tobacco and No alcohol Exam alert, oriented x 3, clear to auscultation bilaterally and regular rate & rhythm Airway Mallampati: Class IV Dentition: other (no teeth) Pulmonary Sleep Apnea CV/HEM Coronary Artery Disease (stent) and Hypertension Hepatic Cirrhosis (no recent ascites, says he only had to have drainage once. Was told a couple months ago there's not enough fluid to take off. Patient denies any feeling of fullness, guardian and him denote no bloating or enlargement of abdomen) Metabolic Diabetes Mellitus and Hyperlipidemia Anesthetic Plan ASA status: 4 Anesthesia: General Risk of > 500 ml blood loss (7ml/kg in children): No Other Pertinent Information Discussed nerve block with patient and guardian d/t history in chart of patient requiring opioids. Guardian wishes to avoid nerve block if possible because states the patient doesn't understand the pain scale very well and gives inaccurate answers and because avoiding any weight-bearing or walking would be practically difficult for her and patient. Medications/Allergies Home Medications Medication Instructions Recorded Confirmed Last Taken Type allopurinol 100 mg tablet 100 mg PO DAILY PRN GOUT 12/13/20 02/18/24 Unknown History Fast Form Ulnar Gutter #1 ea 09/04/22 01/19/24 Unknown Rx methocarbamol 750 mg tablet 750 mg PO TID PRN back pain #15 04/14/23 02/18/24 Unknown Rx tabs diclofenac sodium 1 % topical gel 4 g topical QID PRN Pain 04/20/23 02/18/24 Unknown History (Voltaren Arthritis Pain) acetaminophen 650 mg 1,300 mg PO Q8H PRN pain 07/07/23 02/18/24 Unknown History tablet,extended release (Tylenol Arthritis Pain) blood sugar diagnostic (Blood #50 ea 07/08/23 01/19/24 Unknown Rx Glucose Test strips) blood-glucose meter (Blood Glucose #1 ea 07/08/23 01/19/24 Unknown Rx Monitoring kit) lancets #200 ea 07/08/23 01/19/24 Unknown Rx blood sugar diagnostic (OneTouch #100 ea 07/14/23 01/19/24 Unknown Rx Ultra Test strips) blood-glucose meter,continuous #1 ea 07/14/23 01/19/24 Unknown Rx (Dexcom G7 Reproduction Machine Loader) aspirin 81 mg chewable tablet 81 mg PO DAILY@0700 #90 tabs 08/01/23 02/18/24 01/19/24 Rx clopidogrel 75 mg tablet (Plavix) 75 mg PO DAILY@0700 #90 tabs 08/01/23 02/13/24 Unknown Rx lisinopril 40 mg tablet 40 mg PO DAILY #90 tabs 08/01/23 02/18/24 Unknown Rx metoprolol tartrate 25 mg tablet 50 mg (2 x 25 mg) PO DAILY #90 tabs 08/01/23 02/18/24 Unknown Rx nitroglycerin 0.4 mg sublingual 0.4 mg sublingual Q5M PRN chest 08/01/23 02/18/24 Unknown Rx tablet pain 30 days #30 tabs bacitracin 500 unit/gram topical 1 applic topical DAILY #14 grams 09/25/23 02/18/24 Unknown Rx ointment celecoxib 100 mg capsule 100 mg PO BID #20 caps 10/26/23 02/18/24 Unknown Rx insulin glargine 100 unit/mL 35 unit SUBCUT DAILY 12/15/23 02/18/24 02/17/24 History subcutaneous solution (Lantus U-100 Insulin) blood-glucose sensor (Dexcom G7 #3 ea 01/05/24 01/19/24 Unknown Rx Sensor device) levetiracetam 750 mg tablet 750 mg PO BID 02/18/24 02/19/24 02/19/24 History (Keppra) levothyroxine 150 mcg tablet 150 mcg PO DAILY 02/18/24 02/19/2402/18/24 History rosuvastatin 10 mg tablet 10 mg PO DAILY 02/18/24 02/19/24 Unknown History hydrocodone 5 mg-acetaminophen 325 1 tab PO Q6H PRN pain 7 days #28 02/19/24 Unknown Rx mg tablet tabs Allergies Allergy/AdvReac Type Severity Reaction Status Date / Time cephalexin [From Keflex] Allergy Unknown Verified 02/19/24 11:18 Cephalosporins Allergy hives Verified 02/19/24 11:18 Current Medications Generic Name Dose Route Start Last Admin Trade Name Freq PRN Reason Stop Dose Admin Sodium Chloride 1,000 mls @ 30 mls/hr 02/19/24 11:15 02/19/24 11:39 Sodium Chloride 0.9% IV 02/20/24 11:14 30 mls/hr .Q24H FREDDIE Administration PFSH Anesthesia Medical History Acute kidney injury Coronary artery disease Chronic low back pain Dyslipidemia Benign essential hypertension with target blood pressure below 140/90 Type 2 diabetes mellitus Atypical chest pain Epilepsy Obesity Glucose intolerance Smoker Hypothyroidism Surgical History History of PTCA H/O heart artery stent 07/11/2020-Cardiac stent placement mid LAD H/O umbilical hernia repair History of appendectomy Family History (Reviewed 01/21/24 @ 07:58 by Ember Dupont [facility]) Father , at age 74 Family history of premature coronary artery disease Had a myocardial infarction in his 40s. Diabetes CAD (coronary artery disease) Chronic kidney disease (CKD) Stroke Brother Family history of premature coronary artery disease CAD (coronary artery disease) Had [place] in the 50s Diabetes Stroke Grandmother CAD (coronary artery disease) Diabetes Grandfather CAD (coronary artery disease) Mother , at age 84 CAD (coronary artery disease) Cancer Diabetes COVID-19 Family/Other Lung disease Denies family history of Clotting disorder Dementia Suicide Anesthesia complication Bleeding disorder Social History Smoking and tobacco/nicotine status: current every day tobacco/nicotine user Alcohol intake: current Alcohol intake frequency: holidays/special occasions only Substance/Drug Use: never Household members: spouse Housing: House Marital status: Current occupational status: disabled Data Anesthesia Cardiac Studies: Echocardiogram 12/26/22 Echocardiogram Ultrasound 07/17/19 Sestamibi Stress Test (Cardiology) 12/23/22
--- NOTE | 2024-02-19 12:42 | W.PM.OPSFHP ---
Same Day Surgery H&P Indication for Procedure/HPI DATE OF PROCEDURE: February 19, 2024 CHIEF COMPLAINT/INDICATIONFOR SURGICAL PROCEDURE: Right knee chondromalacia PREOP DIAGNOSIS: Right knee chondromalacia PLANNED PROCEDURE: Operation Date: 02/19/24 12:40 Proposed Procedures p Rright knee diagnostic and surgical arthroscopy with chondroplasty(Right) - Iker Villalobos DO Medications/Allergies* Home Medications Medication Instructions Recorded Confirmed Type allopurinol 100 mg tablet 100 mg PO DAILY PRN GOUT 12/13/20 02/18/24 History diclofenac sodium 1 % topical gel 4 g topical QID PRN Pain 04/20/23 02/18/24 History (Voltaren Arthritis Pain) acetaminophen 650 mg 1,300 mg PO Q8H PRN pain 07/07/23 02/18/24 History tablet,extended release (Tylenol Arthritis Pain) insulin glargine 100 unit/mL 35 unit SUBCUT DAILY 12/15/23 02/18/24 History subcutaneous solution (Lantus U-100 Insulin) levetiracetam 750 mg tablet 750 mg PO BID 02/18/24 02/19/24 History (Keppra) levothyroxine 150 mcg tablet 150 mcg PO DAILY 02/18/24 02/19/24 History rosuvastatin 10 mg tablet 10 mg PO DAILY 02/18/24 02/19/24 History Allergies/Adverse Reactions Allergy/AdvReac Type Severity Reaction Status Date / Time cephalexin [From Keflex] Allergy Unknown Verified 02/19/24 11:18 Cephalosporins Allergy hives Verified 02/19/24 11:18 Current Medications: Generic Name Dose Route Start Last Admin Trade Name Freq PRN Reason Stop Dose Admin Sodium Chloride 1,000 mls @ 30 mls/hr 02/19/24 11:15 02/19/24 11:39 Sodium Chloride 0.9% IV 02/20/24 11:14 30 mls/hr .Q24H FREDDIE Administration Pertinent History/Comorbid Conditions* Medical History (Updated 02/19/24 @ 00:02 by DANITA Cervantes) Acute kidney injury Coronary artery disease Chronic low back pain Dyslipidemia Benign essential hypertension with target blood pressure below 140/90 Type 2 diabetes mellitus Atypical chest pain Epilepsy Obesity Glucose intolerance Smoker Hypothyroidism Surgical History (Updated 12/15/23 @ 13:24 by Gage Noriega MD) History of PTCA H/O heart artery stent 07/11/2020-Cardiac stent placement mid LAD H/O umbilical hernia repair History of appendectomy Family History (Updated 01/04/21 @ 09:46 by Kourtney Arthur LPN) Father, at age 74 Mother, at age 84 COVID-19 Mother Diabetes Father Brother Grandmother Mother CAD (coronary artery disease) Father Brother Had [place] in the 50s Grandmother Grandfather Mother Chronic kidney disease (CKD) Father Family history of premature coronary artery disease Father Had a myocardial infarction in his 40s. Brother Lung disease Family/Other Cancer Mother Stroke Father Brother Denies family history of Clotting disorder Dementia Suicide Anesthesia complication Bleeding disorder Social History Smoking and tobacco/nicotine status: current every day tobacco/nicotine user Alcohol intake: current Alcohol intake frequency: holidays/special occasions only Substance/Drug Use: never Household members: spouse Housing: House Marital status: Current occupational status: disabled Pertinent Exam Findings alert, oriented x 3, operative site marked and procedure specific exam findings Please refer to detailed orthopedic examination on 11/27/2023: right Knee Exam: ROM 0 to greater than 120 degrees Patellar crepitus with ROM Medial joint line tenderness to palpation Lateral joint line tenderness to palpation Mild joint effusion positive Santi's with pain no palpable click Negative Mana's No valgus/ Varus malalignment Stable Varus and Valgus stress Gross motor sensory intact Recommendations Surgery/Procedure today Other Plans: Plan to proceed to the OR today for right knee diagnostic and surgical arthroscopy with chondroplasty. Patient's failed conservative treatment this point in time and through shared decision making he understands the ins and outs of procedure the risk benefits complication alternatives surgery and through shared decision-making elects proceed with surgical intervention. All questions been answered at this time. Will proceed with surgery today. Coding Level of Care Code Acute Code for Chg Fwd
[2024-02-19] MEDS: lidocaine-epi 2% PF 1:200,000 20 mL SDV 40 ML XX (12:45)
[2024-02-19] MEDS: clindamycin 600 MG/50 ML PREMIX 100 MG IV (12:50)
--- NOTE | 2024-02-19 13:49 | W.PM.BPON ---
Date of Procedure: 02/19/2024 Surgeon: Iker Villalobos DO Production Control Scheduler(s): None Procedure(s) performed: Right knee diagnostic and surgical arthroscopy with extensive synovectomy (medial lateral patellofemoral compartments) Right knee diagnostic and surgical arthroscopy with medial patellofemoral compartment chondroplasties Findings of the procedure(s): Patient was found to have chondromalacia throughout the knee more pronounced on the patellofemoral and medial compartments underwent chondroplasties as planned without issues or complications patient was found to have severe extensive synovitis throughout all compartments of the knee and underwent extensive synovectomy Toller procedure well without issues or complications taken to PACU in stable condition. Estimated blood loss: 5 mL Specimen(s) removed: None Post-operative diagnosis: Right knee chondromalacia and extensive synovitis
--- NOTE | 2024-02-19 13:51 | P.OP_ITS ---
Operative Report Date of procedure: February 19, 2024 Surgeon: Iker Villalobos DO Procedure: Preoperative diagnosis: Right knee chondromalacia Post-op diagnosis: Right?knee?extensive synovitis Right?knee? chondromalacia Procedure done: Right knee diagnostic and surgical arthroscopy with extensive synovectomy (medial lateral patellofemoral compartments) Right knee diagnostic and surgical arthroscopy with medial patellofemoral compartment chondroplasties Surgeon: Iker Villalobos DO Estimated blood loss: 5mL Tourniquet: No tourniquet was used IV fluids: See anesthesia record Complications: None Findings: See operative report narrative Condition: stable Disposition: same day Brief History: Patient is a 59-year-old male with right?knee?pain.? Patient has failed conservative treatment who has been worked up for right??knee?pain in the outpatient setting. MRI findings consistent with chondromalacia. talked in the office about treatment options patient would like to proceed with a right?kn ee?diagnostic and surgical arthroscopy with chondroplasty.? Patient understand the ins and outs of the procedure the risk benefits complication alternatives to treatment options.? Understanding risk of surgery they agree to proceed with surgical intervention.? Patient understand this may not provide patient with complete symptomatic relief of? pain as patient does have some underlying arthritis.? Understanding this and patient agree to proceed with surgical intervention all questions answered. Procedure: Patient seen and evaluated in the preoperative holding area.? Consent was reviewed and signed with patient.? Correct extremity was then marked.? Patient seen evaluated Anesthesia Department once cleared for surgery patient was taken back to the operative suite.? Patient was transported onto the OR table in supine position.? All bony prominences well-padded patient was appropriate secured to the bed.? Once appropriately anesthetized a nonsterile tourniquet was applied to the right thigh.? The right lower extremity was then prepped and draped in standard orthopedic fashion.? Final timeout performed.? Patient received appropriate preoperative antibiotics. Patient received local anesthetic of lidocaine with epinephrine into the joint as well as around the portal sites.? No tourniquet was inflated A standard 2 portal vertical incision diagnostic and surgical arthroscopy of the right?knee?was performed in standard fashion.? Small stab incision made in the inferolateral portal introduced trocar and arthroscope into the suprapatellar pouch.? Suprapatellar pouch was subsequently visualized and found to have significant synovitis but no loose bodies.? Patient had noticeable significant inflamed infrapatellar fat pad and thickening hypertrophic within the patellofemoral compartment.? ?The medial gutter was free of loose bodies I then introduced the arthroscope into the medial compartment.? Within the medial compartment I then established my inferior medial working portal utilizing spinal needle outside in technique.? Once established I then visualized our articular cartilage of the medial compartment with a valgus stress.? Patient was found to have grade 2-3 chondromalacia throughout the medial compartment.? Next I inspected the meniscus.? With an arthroscopic probe was utilized to visual? all aspects of the meniscus.? Meniscal root was found to be intact.? Medial meniscus was intact. Next, I then performed a synovectomy of the medial compartment.? Given patient's chondromalacia there was areas of unstable articular cartilage and I subsequently performed a chondroplasty with arthroscopic shaver and thermal wand.? This completed medial compartment work. Next a introduced the arthroscope to the intercondylar notch.? PCL and ACL were intact. patient had significant thickening of the infrapatellar fat pad spanning into the medial and lateral compartments.? I then performed an extensive synovectomy with the arthroscopic shaver of the patellofemoral medial and lateral compartments as well as the intercondylar notch. Advance the?scope into the retrocruciate space and no loose bodies were found. Next I introduced the arthroscope into the lateral compartment the lateral compartment was found to have grade 1-2 chondromalacia.? Lateral meniscus was found to be intact.? The root was intact.? Given the grade chondromalacia there is no unstable cartilage pieces to perform chondroplasty.? This completed my work of the lateral compartment and then performed a synovectomy of the lateral compartment.? Next of the arthroscope was placed into the lateral gutter and this was free of loose bodies.? Finally I reintroduced the arthroscope into the patellofemoral compartment.? The patellofemoral was found to have grade 1-2 chondromalacia of the patellofemoral compartment.? Patient did in the trochlear groove have a small little area of early developing grade III chondromalacia I subsequently utilized arthroscopic shaver and thermal wand to smooth and trim any loose or unstable articular pieces to stable articular cartilage. This completed my chondroplasty of the patellofemoral compartment as well. At this point I utilized arthroscopic shaver as well as thermal wand to perform extensive synovectomy of the patellofemoral compartment. This completed my work of the patellofemoral space.? I then switch my portal sites to the medial working portal.? Completed the rest of my synovectomy and the rest of my examination arthroscopy was normal. All fluid was suctioned from the joint.? ?All instruments were withdrawn.? Portal sites were closed with interrupted nylon suture.? portal sites were then covered with with Xeroform 4 x 4's ABD Curlex and Nitesh wrap.? Patient was then subsequently awakened from anesthesia and taken to PACU in stable condition. Disposition: Patient taken to PACU in stable condition recovering well.? Will receive appropriate discharge structure as well as pain medication postoperatively as well as? DVT prophylaxis.we will have patient follow-up with us in the office in 2 weeks.? We will weightbearing as tolerated to the right lower extremity.? Crutches/walker will be given. Patient understands and agrees with current plan.? All questions answered.
[2024-02-19] MEDS: HYDROcodone-acetaminophen 5-325 mg Tablet 1 TAB PO (15:30)
--- NOTE | 2024-02-19 15:40 | ANE.PACU2 ---
Inpatient post-anesthesia follow up: Airway intact: Yes Vital signs: Temperature 97.7 F Pulse Rate 77 Respiratory Rate 18 Blood Pressure 84/48 Pulse Oximetry 95 Oxygen Delivery Me thod Room Air Oxygen Flow Rate 6 Fraction of Inspir ed Oxygen Hydration adequate: Yes Nausea and vomiting: No Pain level: 1 Mental status: Baseline
== END 2024-02-19 15:40 | disposition home or self-care (01) ==
PROVIDERS: PCP Nurse Practitioner Family; Visit Provider Student in an Organized Health Care Education/Training Program
PROC: (CPT 29870; principal; 2024-02-19 12:30)
PROC: (CPT 29876; 2024-02-19 12:30)
PROC: (CPT 29876; 2024-02-19 12:30)
DX: M22.41 Chondromalacia patellae, right knee (principal); M65.961 Unspecified synovitis and tenosynovitis, right lower leg; G47.30 Sleep apnea, unspecified; I25.10 Atherosclerotic heart disease of native coronary artery without angina pectoris; Z95.5 Presence of coronary angioplasty implant and graft; I10 Essential (primary) hypertension; E11.9 Type 2 diabetes mellitus without complications; E78.5 Hyperlipidemia, unspecified; Z79.82 Long term (current) use of aspirin; E66.9 Obesity, unspecified; Z68.30 Body mass index [BMI] 30.0-30.9, adult; F17.200 Nicotine dependence, unspecified, uncomplicated
CPT/HCPCS: 29876; 36416; 82962; J0131; J1100; J1885; J2250; J2405; J2704; J3010; J3490; J7030

== ENCOUNTER 2024-04-16 19:00 | Emergency (ER) | payer MEDICAID, SELFPAY ==
[2024-04-16 19:07] VITALS: BP 123/81; PULSE 135; RESP 34; TEMP 36.6; O2SAT 98; BMI 31.5
--- NOTE | 2024-04-16 19:11 | ED_ITS ---
HPI - Abdominal Pain 2 General: Chief Complaint: Abdominal Pain Stated Complaint: abdomen pain Time Seen by Provider: 04/16/24 19:03 Source: patient Mode of arrival: ambulatory Limitations: no limitations History of Present Illness: 59-year-old male who has a history of ch ronic abdominal pain has been seen in the ER multiple times he has history of cirrhosis of the liver he states he is having pain over his liver has been going on for weeks states pain sharp in nature rates it a 4 out of 10 denies any worse improving factors denies any fever denies any vomiting. Associated Symptoms: Denies chills, diarrhea, fever(s), nausea and vomiting Related Data Home Medications Medication Instructions Recorded Confirmed allopurinol 100 mg tablet 100 mg PO DAILY PRN GOUT 12/13/20 02/18/24 diclofenac sodium 1 % topical gel 4 g topical QID PRN Pain 04/20/23 02/18/24 (Voltaren Arthritis Pain) acetaminophen 650 mg 1,300 mg PO Q8H PRN pain 07/07/23 02/18/24 tablet,extended release (Tylenol Arthritis Pain) levothyroxine 150 mcg tablet 150 mcg PO DAILY 02/18/24 02/19/24 rosuvastatin 10 mg tablet 10 mg PO DAILY 02/18/24 02/19/24 Previous Rx's Medication Instructions Recorded Fast Form Ulnar Gutter #1 ea 09/04/22 methocarbamol 750 mg tablet 750 mg PO TID PRN back pain #15 04/14/23 tabs blood sugar diagnostic (Blood #50 ea 07/08/23 Glucose Test strips) blood-glucose meter (Blood Glucose #1 ea 07/08/23 Monitoring kit) lancets #200 ea 07/08/23 blood sugar diagnostic (OneTouch #100 ea 07/14/23 Ultra Test strips) blood-glucose meter,continuous #1 ea 07/14/23 (Get[employer] G7 Supervisor Fitting) aspirin 81 mg chewable tablet 81 mg PO DAILY@0700 #90 tabs 08/01/23 clopidogrel 75 mg tablet (Plavix) 75 mg PO DAILY@0700 #90 tabs 08/01/23 lisinopril 40 mg tablet 40 mg PO DAILY #90 tabs 08/01/23 metoprolol tartrate 25 mg tablet 50 mg (2 x 25 mg) PO DAILY #90 tabs 08/01/23 nitroglycerin 0.4 mg sublingual 0.4 mg sublingual Q5M PRN chest 08/01/23 tablet pain 30 days #30 tabs bacitracin 500 unit/gram topical 1 applic topical DAILY #14 grams 09/25/23 ointment celecoxib 100 mg capsule 100 mg PO BID #20 caps 10/26/23 blood-glucose sensor (Dexcom G7 #3 ea 03/01/24 Sensor device) levetiracetam 750 mg tablet See Rx Instructions .Route 03/09/24 .COMPLEX #60 tabs insulin glargine 100 unit/mL 35 unit (0.35 mL) SUBCUT DAILY #10 03/31/24 subcutaneous solution (Lantus mL U-100 Insulin) Allergies Allergy/AdvReac Type Severity Reaction Status Date / Time cephalexin [From Keflex] Allergy Unknown Verified 02/19/24 11:18 Cephalosporins Allergy hives Verified 02/19/24 11:18 Review of Systems 2 Const: Denies: fever(s), chills, body aches or change in appetite ENMT: Denies: throat pain or dental pain Card: Denies: chest pain Resp: Denies: dyspnea GI: Reports: abdominal pain; Denies: nausea, vomiting or diarrhea Musc: Denies: neck pain or back pain Skin/Breast: Denies: rash Neuro: Denies: headache(s) PFSH ED 2 PFSH: Medical History Acute kidney injury Coronary artery disease Chronic low back pain Dyslipidemia Benign essential hypertension with target blood pressure below 140/90 Type 2 diabetes mellitus Atypical chest pain Epilepsy Obesity Glucose intolerance Smoker Hypothyroidism Surgical History History of PTCA H/O heart artery stent 07/11/2020-Cardiac stent placement mid LAD H/O umbilical hernia repair History of appendectomy Family History Father , at age 74 Family history of premature coronary artery disease Had a myocardial infarction in his 40s. Diabetes CAD (coronary artery disease) Chronic kidney disease (CKD) Stroke Brother Family history of premature coronary artery disease CAD (coronary artery disease) Had SD in the 50s Diabetes Stroke Grandmother CAD (coronary artery disease) Diabetes Grandfather CAD (coronary artery disease) Mother , at age 84 CAD (coronary artery disease) Cancer Diabetes COVID-19 Family/Other Lung disease Denies family history of Clotting disorder Dementia Suicide Anesthesia complication Bleeding disorder Social History Smoking and tobacco/nicotine status: current every day tobacco/nicotine user Alcohol intake: current Alcohol intake frequency: holidays/special occasions only Substance/Drug Use: never Household members: spouse Housing: House Marital status: Current occupational status: disabled Physical Exam 2 Const: COMMON NORMALS: no acute distress, patient oriented x3 and healthy appearing HENMT: COMMON NORMALS: normocephalic and atraumatic HEAD & SCALP: n ormocephalic and atraumatic Neck/C-Spine: COMMON NORMALS: full ROM and supple Chest: COMMONS NORMALS: normal inspection of the chest Resp: COMMON NORMALS: normal respiratory effort Cardio: COMMON NORMALS: regular rate, regular rhythm and No murmurs present (Cardio) RATE: regular rate RHYTHM: regular rhythm GI: COMMON NORMALS: Normal to inspection, nondistended, normoactive bowel sounds present, Soft to palpation, non-tender and no masses PALPATION: Yes Soft to palpation Extremity: COMMON NORMALS: normal to inspection and full ROM Neuro: COMMON NORMALS: patient oriented x3, moves all extremities and no focal motor deficits Psych: COMMON NORMALS: mental status grossly normal, Normal thought process present and cooperative THOUGHT PROCESS: Normal thought process present Skin: COMMON NORMALS: no rashes or lesions noted and no wounds GENERAL SKIN EXAM: no rashes or lesions noted Course 2 Vital Signs: Vital signs: Vital Signs Temperature 98 F 04/16/24 19:07 Pulse Rate 71 04/16/24 19:25 Respiratory Rate 16 04/16/24 19:25 Blood Pressure 129/85 04/16/24 19:25 Pulse Oximetry 99 04/16/24 19:25 Oxygen Delivery Me thod Room Air 04/16/24 19:25 MDM - Abdominal Pain Medical Decision Making Patient presents abdominal pains chronic in nature exam here is benign blood works normal he stable for discharge follow-up PCP return if worsening. Medical Records I reviewed the patient's medical records. Lab Data I reviewed the patient's lab results. 04/16/24 18:45 04/16/24 18:45 Labs/Radiology: Laboratory Results WBC 5.35 10^3/uL (3.29-11.43) 04/16/24 18:45 RBC 4.53 10^6/uL (3.85-5.65) 04/16/24 18:45 Hgb 13.80 g/dL (11.27-16.99) 04/16/24 18:45 Hct 40.9 % (37-53) 04/16/24 18:45 MCV 90.3 fl (82-101) 04/16/24 18:45 MCH 30.5 pg (27-33) 04/16/24 18:45 MCHC 33.7 g/dL (30-55) 04/16/24 18:45 RDW 13.2 % (12.1-15.1) 04/16/24 18:45 Plt Count 104 10^3/cmm (157-399) L 04/16/24 18:45 MPV 10.7 fL (7.4-10.4) H 04/16/24 18:45 Neut % (Auto) 64.5 % 04/16/24 18:45 Lymph % (Auto) 18.1 % 04/16/24 18:45 [place] % (Auto) 9.2 % 04/16/24 18:45 Eos % (Auto) 6.5 % 04/16/24 18:45 Baso % (Auto) 1.1 % 04/16/24 18:45 Neut # (Auto) 3.45 10^3/uL (1.8-7.7) 04/16/24 18:45 Lymph # (Auto) 1.0 10^3/uL (0.8-4.8) 04/16/24 18:45 [place] # (Auto) 0.5 10^3/uL (0.2-0.9) 04/16/24 18:45 Eos # (Auto) 0.4 10^3/uL (0.0-0.8) 04/16/24 18:45 Baso # (Auto) 0.1 10^3/uL (0.0-0.1) 04/16/24 18:45 Nucleated RBC % (auto) 0 % 04/16/24 18:45 Nucleated RBCs # 0.0 /100WBC 04/16/24 18:45 Sodium 140 mmol/L (136-145) 04/16/24 18:45 Potassium 4.3 mmol/L (3.5-5.1) 04/16/24 18:45 Chloride 102 mmol/L (98-107) 04/16/24 18:45 Carbon Dioxide 29 mmol/L (22-29) 04/16/24 18:45 Anion Gap 13.3 (5-19) 04/16/24 18:45 BUN 18 mg/dL (6-20) 04/16/24 18:45 Creatinine 1.2 mg/dL (0.7-1.2) 04/16/24 18:45 GFR Calculation 62.4 mL/min (90-130) L 04/16/24 18:45 Glucose 250 mg/dL (65-115) H 04/16/24 18:45 Calculated Osmolality 300 mOsm/kg (285-295) H 04/16/24 18:45 Calcium 9.7 mg/dL (8.5-10.5) 04/16/24 18:45 Total Bilirubin 1.2 mg/dL (0.15-1.2) 04/16/24 18:45 AST 33 U/L (0-40) 04/16/24 18:45 ALT 28 U/L (0-41) 04/16/24 18:45 Alkaline Phosphatase 114 U/L (40-130) 04/16/24 18:45 Total Protein 7.5 g/dL (6.6-8.7) 04/16/24 18:45 Albumin 4.0 g/dL (3.5-5.2) 04/16/24 18:45 Globulin 3.5 g/dL (1.3-4.6) 04/16/24 18:45 Lipase 55 U/L (13-60) 04/16/24 18:45 No radiology studies performed this visit Discharge Plan Discharge Patient Disposition: Home Clinical Impression: Abdominal pain Condition: Stable Prescriptions: No Action allopurinol 100 mg tablet 100 mg PO DAILY PRN (Reason: GOUT) (DME) Fast Form Ulnar Gutter See Rx Instructions .Route .MEDSUPPLY Qty: 1 0RF Rx Instructions: As directed (DME) OneTouch Ultra Test Strip See Rx Instructions .Route Qty: 100 1RF Rx Instructions: As directed patient has one touch ultra 2 glucometer (DME) Dexcom G7 Supervisor Fitting Misc See Rx Instructions .Route Qty: 1 0RF Rx Instructions: As directed Plavix 75 mg tablet 75 mg PO DAILY@0700 Qty: 90 3RF Rx Instructions: last filled jan 2022 lisinopril 40 mg tablet 40 mg PO DAILY Qty: 90 3RF metoprolol tartrate 25 mg tablet 50 mg PO DAILY Qty: 90 6RF nitroglycerin 0.4 mg tablet, sublingual 0.4 mg SUBLINGUAL Q5M PRN (Reason: chest pain) 30 Days Qty: 30 3RF Rx Instructions: until response; do not exceed 3 doses per episode aspirin 81 mg tablet,chewable 81 mg PO DAILY@0700 Qty: 90 3RF (DME) Dexcom G7 Sensor Device See Rx Instructions .ROUTE .COMPLEX Qty: 3 0RF Dose Instruction: CHANGE for 10 days DIRECTED Rx Instructions: CHANGE for 10 days DIRECTED levetiracetam 750 mg tablet See Rx Instructions .ROUTE .COMPLEX Qty: 60 0RF Dose Instruction: TAKE ONE TABLET BY MOUTH TWICE DAILY Rx Instructions: TAKE ONE TABLET BY MOUTH TWICE DAILY insulin glargine [Lantus U-100 Insulin] 100 unit/mL solution 35 unit SUBCUT DAILY Qty: 10 2RF diclofenac sodium [Voltaren Arthritis Pain] 1 % gel 4 g topical QID PRN (Reason: Pain) acetaminophen [Tylenol Arthritis Pain] 650 mg tablet extended release 1,300 mg PO Q8H PRN (Reason: pain) (DME) Blood Glucose Monitoring Kit See Rx Instructions .Route Qty: 1 0RF Rx Instructions: As directed (DME) lancets Misc See Rx Instructions .Route Qty: 200 0RF Rx Instructions: As directed (DME) Blood Glucose Test Strip See Rx Instructions .Route Qty: 50 0RF Rx Instructions: As directed bacitracin 500 unit/gram ointment 1 applic topical DAILY Qty: 14 0RF celecoxib 100 mg capsule 100 mg PO BID Qty: 20 0RF methocarbamol 750 mg tablet 750 mg PO TID PRN (Reason: back pain) Qty: 15 0RF levothyroxine 150 mcg tablet 150 mcg PO DAILY Rx Instructions: TAKE 1 TABLET BY MOUTH EVERY DAY rosuvastatin 10 mg tablet 10 mg PO DAILY Rx Instructions: TAKE 1 TABLET BY MOUTH EVERY DAY Discharge Orders: Discharge ED (Routine); Ordered 04/16/24 Ordered By: Kerry Jeter Referrals: Dorita Flaherty FNP [Primary Care Provider] - Discharge Diet: Advance as tolerated Discharge Activity: Resume usual activity Patient Instructions: Abdominal Pain (ED) Coding Level of Care Code ED Law Clerk for Marva Bunn
[2024-04-16] MEDS: ondansetron 2 mg/ML SDV 2 mL 4 MG IVP (19:18)
[2024-04-16 19:19] VITALS: RESP 20; O2SAT 97
[2024-04-16] MEDS: morphine 4 mg/mL SDV 1 mL IVP (19:19)
[2024-04-16 19:25] VITALS: BP 129/85; PULSE 71; RESP 16; O2SAT 99
[2024-04-16 19:54] LABS: Basophils # 0.1 10^3/uL (0.0-0.1); Basophils % 1.1 %; Eosinophils # 0.4 10^3/uL (0.0-0.8); Eosinophils % 6.5 %; Hematocrit 40.9 % (37-53); Lymphocytes % 18.1 %; Mean Corpuscular HGB Conc 33.7 g/dL (30-55); Mean Corpuscular Hemoglobin 30.5 pg (27-33); Mean Corpuscular Volume 90.3 fl (82-101); Mean Platelet Volume 10.7 fL (7.4-10.4); Monocytes # 0.5 10^3/uL (0.2-0.9); Monocytes % 9.2 %; Neutrophils # 3.45 10^3/uL (1.8-7.7); Neutrophils % 64.5 %; Nucleated Red Blood Cells % 0 %; Platelet Count 104 10^3/cmm (157-399); Red Blood Count 4.53 10^6/uL (3.85-5.65); Red Cell Distribution Width 13.2 % (12.1-15.1); White Blood Count 5.35 10^3/uL (3.29-11.43)
[2024-04-16 20:11] LABS: Alanine Aminotransferase 28 U/L (0-41); Alkaline Phosphatase 114 U/L (40-130); Anion Gap 13.3 (5-19); Aspartate Amino Transferase 33 U/L (0-40); Blood Urea Nitrogen 18 mg/dL (6-20); Calcium 9.7 mg/dL (8.5-10.5); Carbon Dioxide 29 mmol/L (22-29); Chloride 102 mmol/L (98-107); Creatinine Clr Calc Pharmacy 80.4216; Globulin 3.5 g/dL (1.3-4.6); Glomerular Filtration Rate 62.4 mL/min (90-130); Glucose 250 mg/dL (65-115); Lipase 55 U/L (13-60); Osmolality Calculated 300 mOsm/kg (285-295); Potassium 4.3 mmol/L (3.5-5.1); Sodium 140 mmol/L (136-145); Total Bilirubin 1.2 mg/dL (0.15-1.2); Total Protein 7.5 g/dL (6.6-8.7)
[2024-04-16 20:58] VITALS: BP 106/53; PULSE 66; RESP 14; O2SAT 99
== END 2024-04-16 21:00 | disposition home or self-care (01) ==
PROVIDERS: Emergency Provider Emergency Medicine; PCP Nurse Practitioner Family
DX: R10.9 Unspecified abdominal pain (principal); Z79.82 Long term (current) use of aspirin; Z79.4 Long term (current) use of insulin; Z72.0 Tobacco use; E11.9 Type 2 diabetes mellitus without complications; E78.5 Hyperlipidemia, unspecified; I25.10 Atherosclerotic heart disease of native coronary artery without angina pectoris; I10 Essential (primary) hypertension
CPT/HCPCS: 80053; 83690; 85025; 96374; 96375; 99284; J2270; J2405

== ENCOUNTER 2024-05-29 15:15 | Emergency (ER) | payer MEDICAID, SELFPAY ==
[2024-05-29 15:16] VITALS: BP 112/79; PULSE 86; RESP 12; TEMP 36.9; O2SAT 100
--- NOTE | 2024-05-29 15:18 | ECG_ITS ---
[employer] Test Date: 2024-05-29 Pat Name: Alonso Golden Department: Room: Gender: Male File Conversion Operator: : 1965 Requested By: Kerry Jeter Order Number: [id number] Reading MD: HENRIK STANLEY Measurements Intervals [place] Rate: 59 P: 36 [place]: 166 QRS: -36 QRSD: 92 T: 55 QT: 437 QTc: 434 Interpretive Statements SINUS BRADYCARDIA LEFT AXIS DEVIATION [QRS AXIS < -30] POSSIBLE LATERAL MYOCARDIAL INFARCTION , OF INDETERMINATE AGE [30 ms Q WAVE IN I/aVL/V5/V6] Compared to ECG 02/11/2024 14:47:45 Left-axis deviation now present Sinus rhythm no longer present Myocardial infarct finding still present Electronically Signed On 05-31-2024 23:15:16 PRIVACY ATTORNEY by HENRIK STANLEY [email or web address]
--- NOTE | 2024-05-29 15:22 | XRR_ITS ---
PROCEDURE INFORMATION: Exam: XR Chest Exam date and time: 05/29/2024 3:23 PM Age: 59 years old Clinical indication: Pain; Chest pressure; Prior surgery; Surgery date: 6+ months; Surgery type: Cardiac stent; Additional info: Cp TECHNIQUE: Imaging protocol: Radiologic exam of the chest. Views: 1 view. COMPARISON: CR XR chest 1V portable [id number] 02/11/2024 3:20 PM FINDINGS: Lungs: Unremarkable. No consolidation. Pleural spaces: Unremarkable. No pleural effusion. No pneumothorax. Heart/Mediastinum: Unremarkable. No cardiomegaly. Bones/joints: Unremarkable. XR/XR chest 1V portable [id number] IMPRESSION: No acute findings.
[2024-05-29 15:24] VITALS: BP 112/78; PULSE 65; RESP 14; O2SAT 95
--- NOTE | 2024-05-29 15:29 | ED_ITS ---
HPI - Chest Pain 2 General: Chief Complaint: Chest Pain Stated Complaint: chest pain Time Seen by Provider: 05/29/24 15:16 Source: patient and EMS Limitations: no limitations History of Present Illness: 59-year-old male states he has been havi ng chest pain started earlier today states it is a dull pain in the center of his chest he denies any radiation of the pain. Denies any shortness of breath denies any nausea or vomiting. Associated symptoms: Deny abdominal pain, dyspnea, fever(s), nausea or vomiting Related Data Home Medications Medication Instructions Recorded Confirmed allopurinol 100 mg tablet 100 mg PO DAILY PRN GOUT 12/13/20 05/29/24 diclofenac sodium 1 % topical gel 4 g topical QID PRN Pain 04/20/23 05/29/24 (Voltaren Arthritis Pain) acetaminophen 650 mg 1,300 mg PO Q8H PRN pain 07/07/23 05/29/24 tablet,extended release (Tylenol Arthritis Pain) levothyroxine 150 mcg tablet 150 mcg PO DAILY 02/18/24 05/29/24 calcium 600 mg (as 1 tab PO DAILY 05/29/24 05/29/24 carbonate)-vitamin D3 10 mcg (400 unit) tablet (Calcium 600 + D(3)) insulin glargine 100 unit/mL 38 unit SUBCUT DAILY 05/29/24 05/29/24 subcutaneous solution (Lantus U-100 Insulin) levetiracetam 750 mg tablet 750 mg PO BID 05/29/24 05/29/24 metoprolol tartrate 50 mg tablet 50 mg PO DAILY 05/29/24 05/29/24 pantoprazole 40 mg tablet,delayed 40 mg PO DAILY 05/29/24 05/29/24 release Previous Rx's Medication Instructions Recorded methocarbamol 750 mg tablet 750 mg PO TID PRN back pain #15 04/14/23 tabs aspirin 81 mg chewable tablet 81 mg PO DAILY@0700 #90 tabs 08/01/23 clopidogrel 75 mg tablet (Plavix) 75 mg PO DAILY@0700 #90 tabs 08/01/23 lisinopril 40 mg tablet 40 mg PO DAILY #90 tabs 08/01/23 nitroglycerin 0.4 mg sublingual 0.4 mg sublingual Q5M PRN chest 08/01/23 tablet pain 30 days #30 tabs bacitracin 500 unit/gram topical 1 applic topical DAILY #14 grams 09/25/23 ointment celecoxib 100 mg capsule 100 mg PO BID #20 caps 10/26/23 Allergies Allergy/AdvReac Type Severity Reaction Status Date / Time cephalexin [From Keflex] Allergy Unknown Verified 02/19/24 11:18 Cephalosporins Allergy hives Verified 02/19/24 11:18 Review of Systems 2 Const: Denies: fever(s), chills, body aches or change in appetite ENMT: Denies: throat pain or dental pain Card: Reports: chest pain Resp: Denies: dyspnea GI: Denies: abdominal pain, nausea, vomiting or diarrhea Musc: Denies: neck pain or back pain Skin/Breast: Denies: rash Neuro: Denies: headache(s) PFSH ED 2 PFSH: Medical History Acute kidney injury Coronary artery disease Chronic low back pain Dyslipidemia Benign essential hypertension with target blood pressure below 140/90 Type 2 diabetes mellitus Atypical chest pain Epilepsy Obesity Glucose intolerance Smoker Hypothyroidism Surgical History History of PTCA H/O heart artery stent 07/11/2020-Cardiac stent placement mid LAD H/O umbilical hernia repair History of appendectomy Family History Father , at age 74 Family history of premature coronary artery disease Had a myocardial infarction in his 40s. Diabetes CAD (coronary artery disease) Chronic kidney disease (CKD) Stroke Brother Family history of premature coronary artery disease CAD (coronary artery disease) Had SD in the 50s Diabetes Stroke Grandmother CAD (coronary artery disease) Diabetes Grandfather CAD (coronary artery disease) Mother , at age 84 CAD (coronary artery disease) Cancer Diabetes COVID-19 Family/Other Lung disease Denies family history of Clotting disorder Dementia Suicide Anesthesia complication Bleeding disorder Social History Smoking and tobacco/nicotine status: current every day tobacco/nicotine user Alcohol intake: current Alcohol intake frequency: holidays/special occasions only Substance/Drug Use: never Household members: spouse Housing: House Marital status: Current occupational status: disabled Physical Exam 2 Const: COMMON NORMALS: no acute distress, patient oriented x3 and healthy appearing HENMT: COMMON NORMALS: normocephalic and atraumatic HEAD & SCALP: n ormocephalic and atraumatic Eye: COMMON NORMALS: Equal, round and reactive pupils present and EOMs intact bilaterally PUPIL: Yes Equal, round and reactive pupils present Neck/C-Spine: COMMON NORMALS: full ROM and supple Chest: COMMONS NORMALS: normal inspection of the chest and normal palpation of entire chest wall Resp: COMMON NORMALS: normal respiratory effort, No retractions, No use of accessory muscles and clear to auscultation bilaterally AUSCULTATION: clear to auscultation bilaterally Cardio: COMMON NORMALS: regular rate, regular rhythm and No murmurs present (Cardio) RATE: regular rate RHYTHM: regular rhythm GI: COMMON NORMALS: Normal to inspection, nondistended, normoactive bowel sounds present, Soft to palpation, non-tender and no masses PALPATION: Yes Soft to palpation Extremity: COMMON NORMALS: normal to inspection and full ROM Neuro: COMMON NORMALS: patient oriented x3, moves all extremities and no focal motor deficits Psych: COMMON NORMALS: mental status grossly normal, Normal thought process present and cooperative THOUGHT PROCESS: Normal thought process present Skin: COMMON NORMALS: no rashes or lesions noted and no wounds GENERAL SKIN EXAM: no rashes or lesions noted Course 2 Vital Signs: Vital signs: Vital Signs Temperature 98.5 F 05/29/24 15:16 Pulse Rate 61 05/29/24 17:06 Respiratory Rate 14 05/29/24 17:06 Blood Pressure 110/69 05/29/24 17:06 Pulse Oximetry 100 05/29/24 17:06 Oxygen Delivery Me thod Room Air 05/29/24 16:36 MDM - Chest Pain Medical Decision Making Patient presents for chest pains atypical in nature initial repeat troponins are negative no signs of PE or ACS patient stable for discharge follow-up PCP return if worsening Medical Records I reviewed the patient's medical records. Lab Data I reviewed the patient's lab results. 05/29/24 15:00 05/29/24 15:00 Radiology Impressions Chest X-Ray 05/29/24 15:22 IMPRESSION: No acute findings. Laboratory Results WBC 5.63 10^3/uL (3.29-11.43) 05/29/24 15:00 RBC 4.29 10^6/uL (3.85-5.65) 05/29/24 15:00 Hgb 12.70 g/dL (11.27-16.99) 05/29/24 15:00 Hct 38.4 % (37-53) 05/29/24 15:00 MCV 89.5 fl (82-101) 05/29/24 15:00 MCH 29.6 pg (27-33) 05/29/24 15:00 MCHC 33.1 g/dL (30-55) 05/29/24 15:00 RDW 13.2 % (12.1-15.1) 05/29/24 15:00 Plt Count 40 10^3/cmm (157-399) L 05/29/24 15:00 MPV 12.3 fL (7.4-10.4) H 05/29/24 15:00 Neut % (Auto) 66.0 % 05/29/24 15:00 Lymph % (Auto) 17.6 % 05/29/24 15:00 [place] % (Auto) 10.3 % 05/29/24 15:00 Eos % (Auto) 4.4 % 05/29/24 15:00 Baso % (Auto) 1.2 % 05/29/24 15:00 Neut # (Auto) 3.71 10^3/uL (1.8-7.7) 05/29/24 15:00 Lymph # (Auto) 1.0 10^3/uL (0.8-4.8) 05/29/24 15:00 [place] # (Auto) 0.6 10^3/uL (0.2-0.9) 05/29/24 15:00 Eos # (Auto) 0.3 10^3/uL (0.0-0.8) 05/29/24 15:00 Baso # (Auto) 0.1 10^3/uL (0.0-0.1) 05/29/24 15:00 Nucleated RBC % (auto) 0 % 05/29/24 15:00 Nucleated RBCs # 0.0 /100WBC 05/29/24 15:00 Sodium 139 mmol/L (136-145) 05/29/24 15:00 Potassium 3.7 mmol/L (3.5-5.1) 05/29/24 15:00 Chloride 102 mmol/L (98-107) 05/29/24 15:00 Carbon Dioxide 27 mmol/L (22-29) 05/29/24 15:00 Anion Gap 13.7 (5-19) 05/29/24 15:00 BUN 14 mg/dL (6-20) 05/29/24 15:00 Creatinine 1.3 mg/dL (0.7-1.2) H 05/29/24 15:00 GFR Calculation 56.9 mL/min (90-130) L 05/29/24 15:00 Glucose 113 mg/dL (65-115) 05/29/24 15:00 Calculated Osmolality 289 mOsm/kg (285-295) 05/29/24 15:00 Calcium 9.8 mg/dL (8.5-10.5) 05/29/24 15:00 Total Bilirubin 1.4 mg/dL (0.15-1.2) H 05/29/24 15:00 AST 31 U/L (0-40) 05/29/24 15:00 ALT 21 U/L (0-41) 05/29/24 15:00 Alkaline Phosphatase 98 U/L (40-130) 05/29/24 15:00 Troponin T Baseline 24 ng/L (0-15) H 05/29/24 15:00 Troponin T 120 Minute 23.04 ng/L (0-15) H 05/29/24 16:53 Delta Troponin T -0.96 ABS# (0-10) L 05/29/24 16:53 Total Protein 7.0 g/dL (6.6-8.7) 05/29/24 15:00 Albumin 3.9 g/dL (3.5-5.2) 05/29/24 15:00 Globulin 3.1 g/dL (1.3-4.6) 05/29/24 15:00 Lipase 48 U/L (13-60) 05/29/24 15:00 All radiology interpretation(s) finalized by discharge EKG Data EKG 1: I personally reviewed and interpreted this EKG as follows: EKG interpretation date: 05/29/24 EKG interpretation time: 15:18 Interpretation: sinus patricio h [address] elevation qrs 92 qtc 436 Clincial Decision Support The following clinical decision support tools were used to aid in care of the patient HEART Score -> History: Slightly Suspicous, EKG: Normal, Age: 45-64 yrs, Risk Factors: 1 or 2 Risk Factors, Troponin: Baseline Trop <16 ng/L. Resulting HEART Score: 2. Discharge Plan Discharge Patient Disposition: Home Clinical Impression: Chest pain Qualifiers: Chest pain type: unspecified Qualified Code(s): R07.9 - Chest pain, unspecified Condition: Stable Prescriptions: No Action allopurinol 100 mg tablet 100 mg PO DAILY PRN (Reason: GOUT) Plavix 75 mg tablet 75 mg PO DAILY@0700 Qty: 90 3RF Rx Instructions: last filled jan 2022 lisinopril 40 mg tablet 40 mg PO DAILY Qty: 90 3RF nitroglycerin 0.4 mg tablet, sublingual 0.4 mg SUBLINGUAL Q5M PRN (Reason: chest pain) 30 Days Qty: 30 3RF Rx Instructions: until response; do not exceed 3 doses per episode aspirin 81 mg tablet,chewable 81 mg PO DAILY@0700 Qty: 90 3RF diclofenac sodium [Voltaren Arthritis Pain] 1 % gel 4 g topical QID PRN (Reason: Pain) acetaminophen [Tylenol Arthritis Pain] 650 mg tablet extended release 1,300 mg PO Q8H PRN (Reason: pain) bacitracin 500 unit/gram ointment 1 applic topical DAILY Qty: 14 0RF celecoxib 100 mg capsule 100 mg PO BID Qty: 20 0RF methocarbamol 750 mg tablet 750 mg PO TID PRN (Reason: back pain) Qty: 15 0RF levothyroxine 150 mcg tablet 150 mcg PO DAILY Rx Instructions: TAKE 1 TABLET BY MOUTH EVERY DAY pantoprazole 40 mg Tablet,Delayed Release (Dr/Ec) 40 mg PO DAILY metoprolol tartrate 50 mg Tablet 50 mg PO DAILY calcium carbonate-vitamin D3 [Calcium 600 + D(3)] 600 mg-10 mcg (400 unit) Tablet 1 tab PO DAILY insulin glargine [Lantus U-100 Insulin] 100 unit/mL solution 38 unit SUBCUT DAILY levetiracetam 750 mg tablet 750 mg PO BID Rx Instructions: TAKE ONE TABLET BY MOUTH TWICE DAILY Discharge Orders: Discharge ED (Routine); Ordered 05/29/24 Ordered By: Korby Steffany Referrals: Dorita Flaherty FNP [Primary Care Provider] - 4-7 days Discharge Diet: Advance as tolerated Discharge Activity: Use walker/crutches as instructed Patient Instructions: Chest Pain (ED) Coding Level of Care Code ED Corporate Representative for Marva Bunn
[2024-05-29 15:30] LABS: Basophils # 0.1 10^3/uL (0.0-0.1); Basophils % 1.2 %; Eosinophils # 0.3 10^3/uL (0.0-0.8); Eosinophils % 4.4 %; Hematocrit 38.4 % (37-53); Lymphocytes % 17.6 %; Mean Corpuscular HGB Conc 33.1 g/dL (30-55); Mean Corpuscular Hemoglobin 29.6 pg (27-33); Mean Corpuscular Volume 89.5 fl (82-101); Mean Platelet Volume 12.3 fL (7.4-10.4); Monocytes # 0.6 10^3/uL (0.2-0.9); Monocytes % 10.3 %; Neutrophils # 3.71 10^3/uL (1.8-7.7); Nucleated Red Blood Cells % 0 %; Platelet Count 40 10^3/cmm (157-399); Red Blood Count 4.29 10^6/uL (3.85-5.65); Red Cell Distribution Width 13.2 % (12.1-15.1); White Blood Count 5.63 10^3/uL (3.29-11.43)
[2024-05-29 15:49] LABS: Troponin(5th) Baseline 24 ng/L (0-15)
[2024-05-29 15:52] LABS: Alanine Aminotransferase 21 U/L (0-41); Albumin Level 3.9 g/dL (3.5-5.2); Alkaline Phosphatase 98 U/L (40-130); Anion Gap 13.7 (5-19); Aspartate Amino Transferase 31 U/L (0-40); Blood Urea Nitrogen 14 mg/dL (6-20); Calcium 9.8 mg/dL (8.5-10.5); Carbon Dioxide 27 mmol/L (22-29); Chloride 102 mmol/L (98-107); Creatinine Clr Calc Pharmacy 73.4309; Globulin 3.1 g/dL (1.3-4.6); Glomerular Filtration Rate 56.9 mL/min (90-130); Glucose 113 mg/dL (65-115); Lipase 48 U/L (13-60); Osmolality Calculated 289 mOsm/kg (285-295); Potassium 3.7 mmol/L (3.5-5.1); Sodium 139 mmol/L (136-145); Total Bilirubin 1.4 mg/dL (0.15-1.2)
--- NOTE | 2024-05-29 15:52 | PC.PHAR ---
patient is from [facility]
[2024-05-29 16:36] VITALS: BP 112/74; PULSE 63; O2SAT 100
[2024-05-29 17:06] VITALS: BP 110/69; PULSE 61; RESP 14; O2SAT 100
[2024-05-29 17:18] LABS: Troponin 5 2HR 23.04 ng/L (0-15)
[2024-05-29 17:20] LABS: Troponin 5 2HR Delta -0.96 ABS# (0-10)
[2024-05-29] MEDS: ketorolac 30 mg/mL INJ 15 MG IVP (17:27)
[2024-05-29 17:41] VITALS: BP 131/82; PULSE 62; O2SAT 98
== END 2024-05-29 17:42 | disposition home or self-care (01) ==
PROVIDERS: Emergency Provider Emergency Medicine; PCP Nurse Practitioner Family
DX: R07.9 Chest pain, unspecified (principal); Z79.82 Long term (current) use of aspirin; Z79.4 Long term (current) use of insulin; Z72.0 Tobacco use; I25.10 Atherosclerotic heart disease of native coronary artery without angina pectoris; E78.5 Hyperlipidemia, unspecified; E11.9 Type 2 diabetes mellitus without complications; I10 Essential (primary) hypertension
CPT/HCPCS: 36415; 71045; 80053; 83690; 84484; 85025; 93005; 96374; 99285; J1885

== ENCOUNTER 2024-06-11 08:52 | Inpatient (IN) | payer MEDICAID, SELFPAY ==
[2024-06-11] VITALS (73 sets, daily range): BP systolic 77–150; BP diastolic 44–97; PULSE 55–85; RESP 7–21; TEMP 36.5–36.9; O2SAT 91–100; BMI 31.1
--- NOTE | 2024-06-11 08:47 | XR_ITS ---
WS: [id number] Exam: XR chest 1V portable [id number] Date/Time of Exam: 06/11/2024 9:13 AM Reason For Exam: cva Comparison 05/29/2024. Lungs are clear and fully expanded. Normal cardiomediastinal silhouette. No pleural effusions. Bony s tructures are intact. A battery pack superimposes the lower LEFT chest. XR/XR chest 1V portable [id number] IMPRESSION: 1. No acute cardiopulmonary finding.
--- NOTE | 2024-06-11 08:47 | CT_ITS ---
WS: [id number] CT HEAD TECHNIQUE: Noncontrast CT of the head obtained from the skullbase to the vertex. CLINICAL INFORMATION: Symptoms of acute stroke COMPARISON: 10/31/2023 DLP: [address] scans at [facility] use at least one of these dose optimization techniques: automated e xposure control; mA and/or kV adjustment per patient size (includes targeted exams where dose is matc hed to clinical indication); or iterative reconstruction. FINDINGS: Patient is somewhat rotated. No evidence of intracranial hemorrhage or mass effect. Ventricular system and basal cisterns are romeo nt. Moderate small vessel changes with mild parenchymal volume loss. No extra-axial fluid collections . No evidence of mass or mass effect. Low-attenuation change in the LEFT periventricular white matter likely due to small vessel changes. This is similar to previous considering differences in rotation and angulation. Paranasal sinuses and mastoid air cells are well aerated. .Normal visualized soft tissues. CT/CT head thrombolytic [id number] IMPRESSION: 1. No evidence of intracranial hemorrhage or mass effect. 2. Low-attenuation change in the LEFT periventricular white matter although si milar to previous 10/31/2023. 3. No acute intracranial findings. Notified Kerry Jeter MD at 06/11/2024 9:08 AM. Notified Kerry Jeter MD at 06/11/2024 9:06 AM.
--- NOTE | 2024-06-11 08:56 | ECG_ITS ---
[facility] Test Date: 2024-06-11 Pat Name: Alonso Golden Department: Room: Gender: Male Brand Coordinator: : 1965 Requested By: Kerry Jeter Order Number: [id number] Mariaa MD: Vernon Guillaume M.D. Measurements Intervals [place] Rate: 68 P: 28 WV: 172 QRS: -19 QRSD: 97 T: 54 QT: 438 QTc: 468 Interpretive Statements SINUS RHYTHM POSSIBLE LATERAL MYOCARDIAL INFARCTION , PROBABLY OLD [30 ms Q WAVE IN I/aVL/V5/V6] Compared to ECG 05/29/2024 15:18:44 Sinus bradycardia no longer present Left-axis deviation no longer present Myocardial infarct finding still present Electronically Signed On 06-12-2024 13:20:41 [employer] by Vernon Guillaume M.D. [email or web address]
--- NOTE | 2024-06-11 09:00 | PC.PHAR ---
patient is from [facility]. MAR was faxed to the ER
[2024-06-11 09:06] LABS: Basophils # 0.1 10^3/uL (0.0-0.1); Basophils % 1.4 %; Eosinophils # 0.2 10^3/uL (0.0-0.8); Eosinophils % 3.7 %; Hematocrit 35.6 % (37-53); Lymphocytes # 0.9 10^3/uL (0.8-4.8); Lymphocytes % 18.5 %; Mean Corpuscular HGB Conc 32.9 g/dL (30-55); Mean Corpuscular Hemoglobin 28.7 pg (27-33); Mean Corpuscular Volume 87.3 fl (82-101); Mean Platelet Volume 11.2 fL (7.4-10.4); Monocytes # 0.7 10^3/uL (0.2-0.9); Monocytes % 13.4 %; Neutrophils # 3.17 10^3/uL (1.8-7.7); Neutrophils % 62.6 %; Nucleated Red Blood Cells % 0 %; Platelet Count 43 10^3/cmm (157-399); Red Blood Count 4.08 10^6/uL (3.85-5.65); Red Cell Distribution Width 13.2 % (12.1-15.1); White Blood Count 5.07 10^3/uL (3.29-11.43)
--- NOTE | 2024-06-11 09:09 | W.ED.NEUROSD ---
HPI - Neuro Symptoms/Deficit General: Chief Complaint: Neuro Symptoms/Deficit Stated Complaint: stroke alert Source: patient and EMS Mode of arrival: EMS Limitations: no limitations History of Present Illness: 59-year-old male who has a history of cirrhosis who is at assisted living he states that roughly at 8-8 30 started having increased confusion and weakness he states that he was slumped over to the left was slurring his words and seemed to be more out of it. Stroke alert was called in way. Patient here to states he feels globally weak and out of it he is able answer my questions appropriately denies any headache denies any vomiting he is hypotensive here. No known recent illness denies any vomiting or diarrhea Associated symptoms: Reports malaise; Deny chest pain, headache(s), nausea or vomiting Related Data Home Medications Medication Instructions Recorded Confirmed allopurinol 100 mg tablet 100 mg PO DAILY PRN GOUT 12/13/20 06/11/24 diclofenac sodium 1 % topical gel 4 g topical QID PRN Pain 04/20/23 06/11/24 (Voltaren Arthritis Pain) acetaminophen 650 mg 1,300 mg PO Q8H PRN pain 07/07/23 06/11/24 tablet,extended release (Tylenol Arthritis Pain) levothyroxine 150 mcg tablet 150 mcg PO DAILY 02/18/24 06/11/24 calcium 600 mg (as 1 tab PO DAILY 05/29/24 06/11/24 carbonate)-vitamin D3 10 mcg (400 unit) tablet (Calcium 600 + D(3)) insulin glargine 100 unit/mL 38 unit SUBCUT DAILY 05/29/24 06/11/24 subcutaneous solution (Lantus U-100 Insulin) levetiracetam 750 mg tablet 750 mg PO BID 05/29/24 06/11/24 metoprolol tartrate 50 mg tablet 50 mg PO DAILY 05/29/24 06/11/24 pantoprazole 40 mg tablet,delayed 40 mg PO DAILY 05/29/24 06/11/24 release lisinopril 20 mg tablet 20 mg PO DAILY 06/11/24 06/11/24 Previous Rx's Medication Instructions Recorded methocarbamol 750 mg tablet 750 mg PO TID PRN back pain #15 04/14/23 tabs aspirin 81 mg chewable tablet 81 mg PO DAILY@0700 #90 tabs 08/01/23 clopidogrel 75 mg tablet (Plavix) 75 mg PO DAILY@0700 #90 tabs 08/01/23 nitroglycerin 0.4 mg sublingual 0.4 mg sublingual Q5M PRN chest 08/01/23 tablet pain 30 days #30 tabs bacitracin 500 unit/gram topical 1 applic topical DAILY #14 grams 09/25/23 ointment celecoxib 100 mg capsule 100 mg PO BID #20 caps 10/26/23 Allergies Allergy/AdvReac Type Severity Reaction Status Date / Time cephalexin [From Keflex] Allergy Unknown Verified 06/11/24 08:48 Cephalosporins Allergy hives Verified 06/11/24 08:48 Review of Systems Const: Reports: malaise; Denies: fever(s), chills, body aches or change in appetite ENMT: Denies: throat pain or dental pain Card: Denies: chest pain Resp: Denies: dyspnea GI: Denies: abdominal pain, nausea, vomiting or diarrhea Musc: Denies: neck pain or back pain Skin/Breast: Denies: rash Neuro: Reports: weakness in extremities, confusion and Slurred speech present; Denies: headache(s) [facility] ED PFSH: Medical History Acute kidney injury Coronary artery disease Chronic low back pain Dyslipidemia Benign essential hypertension with target blood pressure below 140/90 Type 2 diabetes mellitus Atypical chest pain Epilepsy Obesity Glucose intolerance Smoker Hypothyroidism Surgical History History of PTCA H/O heart artery stent 07/11/2020-Cardiac stent placement mid LAD H/O umbilical hernia repair History of appendectomy Family History Father , at age 74 Family history of premature coronary artery disease Had a myocardial infarction in his 40s. Diabetes CAD (coronary artery disease) Chronic kidney disease (CKD) Stroke Brother Family history of premature coronary artery disease CAD (coronary artery disease) Had GA in the 50s Diabetes Stroke Grandmother CAD (coronary artery disease) Diabetes Grandfather CAD (coronary artery disease) Mother , at age 84 CAD (coronary artery disease) Cancer Diabetes COVID-19 Family/Other Lung disease Denies family history of Clotting disorder Dementia Suicide Anesthesia complication Bleeding disorder Social History Smoking and tobacco/nicotine status: current every day tobacco/nicotine user Alcohol intake: current Alcohol intake frequency: holidays/special occasions only Substance/Drug Use: never Household members: spouse Housing: House Marital status: Current occupational status: disabled NIH stroke score NIHSS: Level Of Consciousness - 1a: 1 Level Of Consciousness Questions - 1b: Both Correct Level Of Consciousness Commands - 1c: Both Correct Best Gaze - 2: Normal Visual Encinas - 3: No Visual Loss Facial Palsy - 4: Normal Motor Arm Right - 5: No Drift Motor Arm Left - 5: No Drift Motor Leg Right - 6: No Drift Motor Leg Left - 6: No Drift Limb Ataxia - 7: Present In Two Limbs Sensory - 8: Normal Best Language - 9: Mild/Moderate Aphasia Dysarthia - 10: Normal Extinction And Inattention - 11: 0 Score: Total Score: 4 Physical Exam Const: COMMON NORMALS: patient oriented x3 HENMT: COMMON NORMALS: normocephalic and atraumatic HEAD & SCALP: normocephalic and atraumatic Eye: COMMON NORMALS: Equal, round and reactive pupils present and EOMs intact bilaterally PUPIL: Yes Equal, round and reactive pupils present Neck/C-Spine: COMMON NORMALS: full ROM and supple Chest: COMMONS NORMALS: normal inspection of the chest and normal palpation of entire chest wall Resp: COMMON NORMALS: normal respiratory effort, No retractions, No use of accessory muscles and clear to auscultation bilaterally AUSCULTATION: clear to auscultation bilaterally Cardio: COMMON NORMALS: regular rate, regular rhythm and No murmurs present (Cardio) RATE: regular rate RHYTHM: regular rhythm GI: COMMON NORMALS: Normal to inspection, nondistended, normoactive bowel sounds present, Soft to palpation, non-tender and no masses PALPATION: Yes Soft to palpation Extremity: COMMON NORMALS: normal to inspection and full ROM Neuro: COMMON NORMALS: patient oriented x3, moves all extremities and no focal motor deficits Psych: COMMON NORMALS: mental status grossly normal, Normal thought process present and cooperative THOUGHT PROCESS: Normal thought process present Skin: COMMON NORMALS: no rashes or lesions noted and no wounds GENERAL SKIN EXAM: no rashes or lesions noted Course Vital Signs: Vital signs: Vital Signs Temperature 97.7 F 06/11/24 08:48 Pulse Rate 62 06/11/24 11:37 Respiratory Rate 18 06/11/24 11:37 Blood Pressure 88/50 06/11/24 11:37 Pulse Oximetry 97 06/11/24 11:37 Oxygen Delivery Me thod Room Air 06/11/24 11:37 MDM - Neuro Symptoms/Deficit Medical Decision Making Patient presents here with generalized weakness came as a stroke alert he did have some slurred speech and generalized weakness and confusion he is not a lytic candidate as his platelets are [address] CTA are normal he was quite hypotensive he got fluid bolus now his blood pressure is better his mentation has improved he has no signs of any infection he does take blood pressure meds could cause his hypotension did get blood cultures gave him IV fluids did not start IV antibiotics he has no fever or sign of infection. I spoke to hospitalist will admit at this time. Medical Records I reviewed the patient's medical records. Lab Data I reviewed the patient's lab results. 06/11/24 08:55 06/11/24 08:55 Radiology Impressions Chest X-Ray 06/11/24 08:47 IMPRESSION: 1. No acute cardiopulmonary finding. Head CT 06/11/24 08:47 IMPRESSION: 1. No evidence of intracranial hemorrhage or mass effect. 2. Low-attenuation change in the LEFT periventricular white matter although similar to previous 10/31/2023. 3. No acute intracranial findings. Notified Kerry Jeter MD at 06/11/2024 9:08 AM. Notified Kerry Jeter MD at 06/11/2024 9:06 AM. Head/Neck CTA 06/11/24 09:26 IMPRESSION: 1. No evidence of proximal flow-limiting intracranial stenosis. 2. Less than 50% cervical ICA stenosis bilaterally with mild to moderate calcified atheromatous plaque RIGHT greater than LEFT. 3. RIGHT dominant vertebral artery. 4. Mild intracranial atheromatous disease. Laboratory Results WBC 5.07 10^3/uL (3.29-11.43) 06/11/24 08:55 RBC 4.08 10^6/uL (3.85-5.65) 06/11/24 08:55 Hgb 11.70 g/dL (11.27-16.99) 06/11/24 08:55 Hct 35.6 % (37-53) L 06/11/24 08:55 MCV 87.3 fl (82-101) 06/11/24 08:55 MCH 28.7 pg (27-33) 06/11/24 08:55 MCHC 32.9 g/dL (30-55) 06/11/24 08:55 RDW 13.2 % (12.1-15.1) 06/11/24 08:55 Plt Count 43 10^3/cmm (157-399) L 06/11/24 08:55 MPV 11.2 fL (7.4-10.4) H 06/11/24 08:55 Neut % (Auto) 62.6 % 06/11/24 08:55 Lymph % (Auto) 18.5 % 06/11/24 08:55 [place] % (Auto) 13.4 % 06/11/24 08:55 Eos % (Auto) 3.7 % 06/11/24 08:55 Baso % (Auto) 1.4 % 06/11/24 08:55 Neut # (Auto) 3.17 10^3/uL (1.8-7.7) 06/11/24 08:55 Lymph # (Auto) 0.9 10^3/uL (0.8-4.8) 06/11/24 08:55 [place] # (Auto) 0.7 10^3/uL (0.2-0.9) 06/11/24 08:55 Eos # (Auto) 0.2 10^3/uL (0.0-0.8) 06/11/24 08:55 Baso # (Auto) 0.1 10^3/uL (0.0-0.1) 06/11/24 08:55 Nucleated RBC % (auto) 0 % 06/11/24 08:55 Nucleated RBCs # 0.0 /100WBC 06/11/24 08:55 PT 16.50 SECONDS (12.1-14.9) H 06/11/24 08:55 INR 1.25 (0.8-1.2) H 06/11/24 08:55 APTT 32.9 SECONDS (23.9-36.7) 06/11/24 08:55 Sodium 141 mmol/L (136-145) 06/11/24 08:55 Potassium 3.8 mmol/L (3.5-5.1) 06/11/24 08:55 Chloride 105 mmol/L (98-107) 06/11/24 08:55 Carbon Dioxide 26 mmol/L (22-29) 06/11/24 08:55 Anion Gap 13.8 (5-19) 06/11/24 08:55 BUN 16 mg/dL (6-20) 06/11/24 08:55 Creatinine 1.7 mg/dL (0.7-1.2) H 06/11/24 08:55 GFR Calculation 41.8 mL/min (90-130) L 06/11/24 08:55 Glucose 196 mg/dL (65-115) H 06/11/24 08:55 Calculated Osmolality 299 mOsm/kg (285-295) H 06/11/24 08:55 Lactic Acid 2.3 mmol/L (0.5-2.2) H 06/11/24 08:55 Lactic Acid (Sepsis) 1.2 mmol/L (0.5-2.2) 06/11/24 11:47 Calcium 9.5 mg/dL (8.5-10.5) 06/11/24 08:55 Total Bilirubin 1.5 mg/dL (0.15-1.2) H 06/11/24 08:55 AST 31 U/L (0-40) 06/11/24 08:55 ALT 23 U/L (0-41) 06/11/24 08:55 Alkaline Phosphatase 90 U/L (40-130) 06/11/24 08:55 Ammonia 76 umol/L (16-60) H 06/11/24 08:55 Troponin T Baseline 31 ng/L (0-15) H 06/11/24 08:55 Troponin T 120 Minute 26.51 ng/L (0-15) H 06/11/24 10:55 Delta Troponin T -4.49 ABS# (0-10) L 06/11/24 10:55 Total Protein 6.7 g/dL (6.6-8.7) 06/11/24 08:55 Albumin 3.5 g/dL (3.5-5.2) 06/11/24 08:55 Globulin 3.2 g/dL (1.3-4.6) 06/11/24 08:55 Urine Color Yellow (Yellow) 06/11/24 11:00 Urine Appearance Clear (CLEAR) 06/11/24 11:00 Urine pH 6.0 (5-7) 06/11/24 11:00 Ur Specific [place] 1.021 (1.005-1.030) 06/11/24 11:00 Urine Protein 1+ (Negative) A 06/11/24 11:00 Urine Glucose (UA) Negative (Normal) 06/11/24 11:00 Urine Ketones Negative (Negative) 06/11/24 11:00 Urine Blood Negative (Negative) 06/11/24 11:00 Urine Nitrate Negative (Negative) 06/11/24 11:00 Urine Bilirubin Negative (Negative) 06/11/24 11:00 Urine Urobilinogen 1.0 mg/dL (Negative) 06/11/24 11:00 Ur Leukocyte Esterase Negative (Negative) 06/11/24 11:00 Urine RBC 0-2 /hpf (0-2) 06/11/24 11:00 Urine WBC 0-5 /hpf (0-5) 06/11/24 11:00 Ur Squamous Epith Cells 0-5 /hpf (0-5) 06/11/24 11:00 Amorphous Sediment Not Reportable 06/11/24 11:00 Urine Bacteria None seen /hpf (NONE) 06/11/24 11:00 Hyaline Casts 15-25 /lpf H 06/11/24 11:00 Fine Granular Casts 0-4 /lpf H 06/11/24 11:00 Coarse Granular Casts 0-4 /lpf H 06/11/24 11:00 Urine Opiates Screen Negative ng/mL (Negative) 06/11/24 11:00 Ur Barbiturates Screen Negative ng/mL (Negative) 06/11/24 11:00 Ur Phencyclidine Scrn Negative ng/mL (Negative) 06/11/24 11:00 Ur Amphetamines Screen Negative ng/mL (Negative) 06/11/24 11:00 U Benzodiazepines Scrn Negative ng/mL (Negative) 06/11/24 11:00 Urine Cocaine Screen Negative ng/mL (Negative) 06/11/24 11:00 U Marijuana (THC) Screen Negative ng/mL (Negative) 06/11/24 11:00 All radiology interpretation(s) finalized by discharge EKG Data EKG 1: I personally reviewed and interpreted this EKG as follows: EKG interpretation date: 06/11/24 EKG interpretation time: 08:56 Interpretation: nsr hr [address] or t wave abnormalities qrs 97 qtc 456 EKG 2: I personally reviewed and interpreted this EKG as follows: EKG interpretation date: 06/11/24 EKG interpretation time: 11:15 Interpretation: nsr hr [address] elevation qrs 106 qtc 446 Discharge Plan Discharge Patient Disposition: Admitted As Inpatient Clinical Impression: Weakness, Altered mental status, Hypotension, Cirrhosis Condition: Stable Prescriptions: No Action allopurinol 100 mg tablet 100 mg PO DAILY PRN (Reason: GOUT) Plavix 75 mg tablet 75 mg PO DAILY@0700 Qty: 90 3RF Rx Instructions: last filled jan 2022 nitroglycerin 0.4 mg tablet, sublingual 0.4 mg SUBLINGUAL Q5M PRN (Reason: chest pain) 30 Days Qty: 30 3RF Rx Instructions: until response; do not exceed 3 doses per episode aspirin 81 mg tablet,chewable 81 mg PO DAILY@0700 Qty: 90 3RF diclofenac sodium [Voltaren Arthritis Pain] 1 % gel 4 g topical QID PRN (Reason: Pain) acetaminophen [Tylenol Arthritis Pain] 650 mg tablet extended release 1,300 mg PO Q8H PRN (Reason: pain) bacitracin 500 unit/gram ointment 1 applic topical DAILY Qty: 14 0RF celecoxib 100 mg capsule 100 mg PO BID Qty: 20 0RF methocarbamol 750 mg tablet 750 mg PO TID PRN (Reason: back pain) Qty: 15 0RF levothyroxine 150 mcg tablet 150 mcg PO DAILY Rx Instructions: TAKE 1 TABLET BY MOUTH EVERY DAY pantoprazole 40 mg Tablet,Delayed Release (Dr/Ec) 40 mg PO DAILY metoprolol tartrate 50 mg Tablet 50 mg PO DAILY calcium carbonate-vitamin D3 [Calcium 600 + D(3)] 600 mg-10 mcg (400 unit) Tablet 1 tab PO DAILY insulin glargine [Lantus U-100 Insulin] 100 unit/mL solution 38 unit SUBCUT DAILY levetiracetam 750 mg tablet 750 mg PO BID Rx Instructions: TAKE ONE TABLET BY MOUTH TWICE DAILY lisinopril 20 mg Tablet 20 mg PO DAILY Referrals: Dorita Flaherty FNP [Primary Care Provider] - Coding Level of Care Code ED [place] Inspector for Marva Bunn
[2024-06-11 09:14] LABS: INR 1.25 (0.8-1.2)
[2024-06-11 09:15] LABS: Partial Thromboplastin Time 32.9 SECONDS (23.9-36.7)
[2024-06-11] MEDS: sodium chloride 0.9% 1,000 ML 999 ML IV ×2 (09:15)
[2024-06-11 09:23] LABS: Alanine Aminotransferase 23 U/L (0-41); Albumin Level 3.5 g/dL (3.5-5.2); Alkaline Phosphatase 90 U/L (40-130); Anion Gap 13.8 (5-19); Aspartate Amino Transferase 31 U/L (0-40); Blood Urea Nitrogen 16 mg/dL (6-20); Calcium 9.5 mg/dL (8.5-10.5); Carbon Dioxide 26 mmol/L (22-29); Chloride 105 mmol/L (98-107); Creatinine Clr Calc Pharmacy 56.4237; Globulin 3.2 g/dL (1.3-4.6); Glomerular Filtration Rate 41.8 mL/min (90-130); Glucose 196 mg/dL (65-115); Lactic Sepsis W/Reflex 2.3 mmol/L (0.5-2.2); Osmolality Calculated 299 mOsm/kg (285-295); Potassium 3.8 mmol/L (3.5-5.1); Sodium 141 mmol/L (136-145); Total Bilirubin 1.5 mg/dL (0.15-1.2); Total Protein 6.7 g/dL (6.6-8.7)
--- NOTE | 2024-06-11 09:26 | CT_ITS ---
WS: [id number] CTA HEAD AND NECK TECHNIQUE: Contrast enhanced CTA of the head and neck with coronal and sagittal reformatted images an d maximum intensity projection (MIP) images. NASCET criteria utilized. CLINICAL INFORMATION: cva COMPARISON: None. DLP: 563.[address] scans at [facility] use at least one of these dose optimization techniques: automated e xposure control; mA and/or kV adjustment per patient size (includes targeted exams where dose is matc hed to clinical indication); or iterative reconstruction. FINDINGS: RIGHT: RIGHT common carotid artery is patent. Moderate calcified atheromatous plaque RIGHT carotid bu lb. Less than 50% RIGHT ICA stenosis. RIGHT ICA is patent to the skull base. LEFT: LEFT common carotid artery is patent. Mild calcified atheromatous plaque LEFT carotid bulb. Les s than 50% LEFT ICA stenosis. LEFT ICA is patent to the skull base. RIGHT dominant vertebral artery is patent. Tiny but patent LEFT vertebral artery. LEFT vertebral compa ry ends in PICA. INTRACRANIAL CTA: Proximal basilar artery is patent. Persistent RIGHT CRITICAL CARE RN. Normal vascularity to the CRITICAL CARE RN territor y bilaterally. Both ICAs are patent at the skull base. Moderate cavernous carotid atheromatous disease. Mild to mode rate LEFT supraclinoid ICA stenosis. Hypoplasia LEFT A1 segment. Azygos BRUCE is patent. Normal vascula rity to the MCA territories bilaterally. No evidence of proximal flow-limiting stenosis. CT/CT angio headneck* [id number] IMPRESSION: 1. No evidence of proximal flow-limiting intracranial stenosis. 2. Less than 50% cervical ICA stenosis bilaterally with mild to moderate calci fied atheromatous plaque RIGHT greater than LEFT. 3. RIGHT dominant vertebral artery. 4. Mild intracranial atheromatous disease.
[2024-06-11 09:34] LABS: Ammonia 76 umol/L (16-60)
[2024-06-11 09:39] LABS: Troponin(5th) Baseline 31 ng/L (0-15)
--- NOTE | 2024-06-11 09:46 | PM.SAN ---
Stroke Alert Activation ED Arrival Date: 06/11/24 ED Arrival Time: 08:48 ED Physican at Bedside: 08:48 Last Known Normal/at Baseline: 3-4 hours ago (Yesterday) Other Last Known Well Infomation: He says that his symptoms began at lunchtime yesterday. He started feeling like he was going to fall out of his seat. It felt like he was falling to the right. His speech is slurred. This is not typical for him. He got up at 530 this morning and went to breakfast and then laid back down at 630. He says that staff came and got him at 630 saying that if he needed to go to the hospital they needed to hurry up and call because they were short staffed today. His biggest problem is his speech. He walked to the breakfast room this morning and he walked back to his room. Stroke Alert Activated by: ems Stroke Alert Activation Time: 08:34 Stroke MD @ Bedside Time: 08:34 NIH Stroke Scale Time: 09:30 NIH stroke score NIHSS: Level Of Consciousness - 1a: 0 Level Of Consciousness Questions - 1b: Both Correct Level Of Consciousness Commands - 1c: Both Correct Best Gaze - 2: Normal Visual Encinas - 3: No Visual Loss Facial Palsy - 4: Normal Motor Arm Right - 5: No Drift Motor Arm Left - 5: No Drift Motor Leg Right - 6: No Drift Motor Leg Left - 6: No Drift Limb Ataxia - 7: Present In One Limb Sensory - 8: Normal Best Language - 9: No Aphasia Dysarthia - 10: Mild/Moderate Dysarthia Extinction And Inattention - 11: 0 Score: Total Score: 2 Stroke Alert Data/Treatment Time to CT of Head: 08:47 CT Results Time: 09:08 CT Impression: 1. No evidence of intracranial hemorrhage or mass effect. 2. Low-attenuation change in the LEFT periventricular white matter although similar to previous 10/31/2023. 3. No acute intracranial findings. Notified Kerry Jeter MD at 06/11/2024 9:08 AM. Notified Kerry Jeter MD at 06/11/2024 9:06 AM. Dictated By: Konrad Alegre MD Signed By: Konrad Alegre MD Signed Date/Time: 06/11/24 Stroke Risk Factors: hypertension, obesity, diabetes mellitus and smoker tPA Contraindication: tPA Contraindication: Treatment not indcated tPA Admin Prior to Arrival: No Patient & Family Educated on: Cause of Stroke, Risk Factors and Treament Plan Other Patient & Family Education: The patient is happy to be admitted for observation to determine the cause of his dysarthria. He is a little bit hypotensive. If he does well he can probably return to the care home tomorrow on aspirin and Plavix. CTA is pending. Standardized Stroke Orders Used: Yes Critical Care Time Critical Care Time: 30 - 74 mins A&P Assessment and plan (1) Lacunar stroke: This a 59-year-old man who is well-known to me. I saw him 4 years ago because he was on Depakote and has fatty infiltration of the liver with cirrhosis. I got him off of Depakote and put him on levetiracetam although it has been many years since he had a seizure. He presents this morning with slurred speech that is probably 24 hours old. He is a difficult historian but he says this began at lunch yesterday and it caused him to almost fall out of his chair. He was able to walk to the breakfast room this morning but after taking a nap and discovered he was not any better he decided to come to the emergency room and be evaluated. He is not a candidate for thrombolytic therapy because his NIH stroke scale score is only 2 and his platelet count is 43. He does not have a hemorrhage by CT. It is appropriate to do a CTA as he has been here many times with a variety of symptoms and it would be good to know what his cerebral circulation is like although he is already on Plavix and aspirin. The goal for this visit would be to persuade him to stop smoking cigarettes as that is the biggest risk factor. He is in poor health overall because of his cirrhosis which is advanced, with thrombocytopenia and elevated INR of 1.25 indicating poor liver function. Metabolic causes contributing to his dysarthria are also of great consideration is the patient has a low blood pressure, his lactate is 2.3 and his creatinine is up. Thanks for allowing me to participate in his care. I reviewed his labs from my desk and his CAT scan before joining Dr. Jeter in the emergency department and reviewing the patient's stroke scale and communicating with the patient. He is happy to be admitted with his symptoms. (2) Lacunar stroke, acute: (3) Thrombocytopenia: (4) 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: (5) Cirrhosis of liver with ascites: (6) Fatty infiltration of liver: (7) Type 2 diabetes mellitus: Qualifiers: Diabetes mellitus manager strategy & account insulin use: without detention use Diabetes mellitus complication status: with hyperglycemia Qualified Code(s): E11.65 - Type 2 diabetes mellitus with hyperglycemia (8) H/O heart artery stent: (9) Smoker: Coding Level of Care Code Acute Code for [facility] Diagnoses Lacunar stroke I63.81 Lacunar stroke, acute I63.81 Thrombocytopenia D69.6 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 K74.60 Cirrhosis of liver with ascites K74.60; R18.8 Fatty infiltration of liver K76.0 Type 2 diabetes mellitus with hyperglycemia, without long-term current use of insulin E11.65 Diabetes mellitus manager strategy & account insulin use: without manager strategy & account use Diabetes mellitus complication status: with hyperglycemia H/O heart artery stent Z95.5 Smoker F17.200
[2024-06-11] MEDS: iohexol 350 mg/mL 500 mL Btl (per mL) IV (09:55)
[2024-06-11 10:54] LABS: Reflex Lactate Order REFLEX LACTIC ORDERD
[2024-06-11 11:11] LABS: Bilirubin Urine Negative (Negative); Blood Urine Negative (Negative); Glucose Urine UA Negative (Normal); Ketones Urine Negative (Negative); Leukocyte Esterase Urine Negative (Negative); Nitrate Urine Negative (Negative); Protein Urine 1+ (Negative); Specific Gravity, Urine 1.021 (1.005-1.030); Urine Appearance Clear (CLEAR); Urine Color Yellow (Yellow)
--- NOTE | 2024-06-11 11:15 | ECG_ITS ---
[employer] Test Date: 2024-06-11 Pat Name: Alonso Golden Department: Room: Gender: Male Stress Analyst: : 1965 Requested By: Kerry Jeter Order Number: [id number] Mariaa MD: Vernon Guillaume M.D. Measurements Intervals [place] Rate: 62 P: 49 CA: 171 QRS: -22 QRSD: 106 T: 29 QT: 441 QTc: 449 Interpretive Statements SINUS RHYTHM POSSIBLE LATERAL MYOCARDIAL INFARCTION , PROBABLY OLD [30 ms Q WAVE IN I/aVL/V5/V6] Compared to ECG 06/11/2024 08:56:40 No significant changes Electronically Signed On 06-12-2024 13:33:40 STITCH BONDING MACHINE DRAWER IN by Vernon Guillaume M.D. [email or web address]
[2024-06-11 11:17] LABS: Add Urine Microscopic? YES; Bacteria Urine None Seen /hpf; RBC Urine 0-2 /hpf (0-2); Squamous Epithelial Cell Urine 0-5 /hpf (0-5); WBC Urine 0-5 /hpf (0-5)
[2024-06-11 11:20] LABS: Amphetamines Screen Urine Negative (Negative); Barbiturates Screen Urine Negative (Negative); Benzodiazepines Screen Urine Negative (Negative); Cocaine Screen Urine Negative (Negative); Opiate Screen Urine Negative (Negative); PCP Screen Urine Negative (Negative); THC Screen Urine Negative (Negative)
[2024-06-11 11:28] LABS: UA Slide Review UA Slide Review Perf
[2024-06-11 11:29] LABS: Coarse Granular Casts Urine 0-4 /lpf; Fine Granular Casts Urine 0-4 /lpf; Hyaline Casts Urine 15-25 /lpf
[2024-06-11 11:36] LABS: Troponin 5 2HR 26.51 ng/L (0-15)
[2024-06-11 11:37] LABS: Troponin 5 2HR Delta -4.49 ABS# (0-10)
[2024-06-11] MEDS: sodium chloride 0.9% 1,000 ML 125 ML IV ×2 (11:55→22:44)
[2024-06-11 12:11] LABS: Lactic Acid level (Lactate) 1.2 mmol/L (0.5-2.2)
--- NOTE | 2024-06-11 13:20 | CTR_ITS ---
PROCEDURE INFORMATION: Exam: CT Chest Without Contrast; Diagnostic Exam date and time: 06/11/2024 3:02 PM Age: 59 years old Clinical indication: Abdominal tenderness; Dyspnea; Additional info: Sepsis, source unclear TECHNIQUE: Imaging protocol: Diagnostic computed tomography of the chest without contrast. Radiation optimization: All CT scans at this facility use at least one of these dose optimization techniques: automated exposure control; mA and/or kV adjustment per patient size (includes targeted exams where dose is matched to clinical indication); or iterative reconstruction. COMPARISON: CR (CHEST, ) 05/29/2024 3:23 PM RADIATION DOSE METRICS: Total DLP (mGy-cm): 1106.38 FINDINGS: Lungs: Tiny amounts of bilateral dependent subsegmental atelectasis. Small bulla posterior right lower lobe. Otherwise, unremarkable. Pleural spaces: Unremarkable. No pneumothorax. No pleural effusion. Heart: Unremarkable. No cardiomegaly. No pericardial effusion. Coronary arteries: Moderate amount of coronary artery calcification. Lymph nodes: Unremarkable. No enlarged lymph nodes. Vasculature: Unremarkable. No aortic aneurysm. Bones/joints: Mild thoracic scoliosis. Minimal and mild multilevel thoracic spondylosis. Several tiny sclerotic foci scattered in the bones are believed to be benign bone islands. Otherwise, unremarkable. Soft tissues: Unremarkable visualized chest wall. Otherwise, unremarkable soft tissues. PROCEDURE INFORMATION: Exam: CT Abdomen And Pelvis Without Contrast Exam date and time: 06/11/2024 3:02 PM Age: 59 years old Clinical indication: Abdominal tenderness; Dyspnea; Additional info: Sepsis, source unclear TECHNIQUE: Imaging protocol: Computed tomography of the abdomen and pelvis without contrast. Radiation optimization: All CT scans at this facility use at least one of these dose optimization techniques: automated exposure control; mA and/or kV adjustment per patient size (includes targeted exams where dose is matched to clinical indication); or iterative reconstruction. COMPARISON: CT kidney stone [id number] 12/14/2023 4:18 PM RADIATION DOSE METRICS: Total DLP (mGy-cm): 1106.38 FINDINGS: Liver: Unchanged shape of the liver suggesting cirrhosis. Otherwise, unremarkable. Gallbladder and biliary ducts: Unchanged cholecystectomy. Unremarkable bile ducts. Pancreas: Normal. No ductal dilation. Spleen: Unchanged mild splenomegaly, likely secondary to portal hypertension. Otherwise, unremarkable. Adrenal glands: Normal. No mass. Kidneys and ureters: Unchanged small left renal cyst needs no follow-up. Otherwise, unremarkable. Stomach and bowel: New diffuse thickening of the wall of the gastric fundus and much of the gastric body. Probably gastritis, but upper endoscopy is recommended to exclude malignancy. No other obvious bowel pathology, but evaluation for such is markedly limited by all the surrounding an adjacent fluid and fat stranding. Appendix: No evidence of appendicitis. Intraperitoneal space: Markedly increased large amount of free intraperitoneal fluid in fat stranding throughout the abdomen and pelvis, very likely due to portal hypertension. No free air. Vasculature: Unchanged tiny amount of arterial calcification. Unchanged multiple venous collaterals in the abdomen, very likely due to portal hypertension. Otherwise, unremarkable. Lymph nodes: Unremarkable. No enlarged lymph nodes. Urinary bladder: Unremarkable. Reproductive: Unchanged moderate enlargement of the prostate gland. Otherwise, unremarkable. Bones/joints: Unchanged chronic bilateral L5 spondylolysis without spondylolisthesis. Unchanged mild lumbar spondylosis. Multiple small sclerotic foci scattered in the bones remain unchanged, and are believed to be benign bone islands. Otherwise, unremarkable. Soft tissues: Unremarkable visualized body wall. Otherwise, unremarkable soft tissues. CT/[place] [id number] IMPRESSION: 1. Tiny amounts of bilateral dependent subsegmental atelectasis. 2. No other acute thoracic findings. 3. Additional details as above. IMPRESSION: 1. Persistent findings of portal hypertension. This includes an increased large amount of free intraperitoneal fluid and fat stranding throughout the abdomen and pelvis. 2. New diffuse thickening of the wall of the gastric fundus and much of the gastric body. Probably gastritis, but upper endoscopy is recommended to exclude malignancy. 3. Additional details as above. Unchanged.
--- NOTE | 2024-06-11 13:37 | USCV_ITS ---
Alonso Golden Age: 59 Gender: M : 1965 Exam Date: 06/11/2024 13:56 Ordering Phys: Kai New MD Technologist: [place] [facility] [place]: cp BP: 119 / 79 HR: 56 Rhythm: Sinus Technical Quality: Adequate MEASUREMENTS (Male / Female) Normal Values 2D ECHO LVOT Diameter 2.2 cm LV Ejection Fraction MOD 4C 62.8 % LV Ejection Fraction MOD 2C 65.2 % LV Ejection Fraction 2C AL 66.9 % LA Diameter 3.6 cm RA Systolic Volume 4C AL 31.4 ml RA Systolic Volume 4C MOD 31.1 ml LA Sys Volume AL 69.1 cm cubed LA Sys Volume Index AL 30.7 cm cubed/m squared Aorta at Sinotubular Diameter 2.8 cm M-MODE LA Ao Ratio MM 1.5 AV Cusp Separation MM 2.2 cm DOPPLER AV Peak Velocity 105.0 cm/s LVOT Peak Velocity 116.0 cm/s AV Area Cont Eq vti 4.3 cm squared AV Area Cont Eq pk 4.1 cm squared MV Peak Velocity 96.0 cm/s MV Area PHT 3.7 cm squared Mitral E to A Ratio 1.0 TV Peak Velocity 275.5 cm/s TR Peak Velocity 279.0 cm/s TR Peak Gradient 31.1 mmHg TV Peak E Velocity 94.0 cm/s PV Peak Velocity 77.0 cm/s FINDINGS Left Ventricle Normal left ventricular size, systolic function and wall thickness, with no regional wall motion abnormalities. Left ventricular ejection fraction is estimated at 60 %. Normal diastolic function. Right Ventricle The right ventricle is normal in size and function. Right Atrium The right atrium is normal in size. Left Atrium The left atrium is normal in size. Mitral Valve Structurally normal mitral valve without significant stenosis or prolapse. There is trace mitral regurgitation. Aortic Valve Structurally normal aortic valve without significant sclerosis or stenosis. There is trace aortic regurgitation. Tricuspid Valve Structurally normal tricuspid valve without significant stenosis or regurgitation. Pulmonic Valve Structurally normal pulmonic valve without significant stenosis. There is no pulmonic regurgitation. Pericardium Normal pericardium without effusion. Aorta Normal ascending aorta dimension. IVC The inferior vena cava appears normal. CONCLUSIONS Normal left ventricular size, systolic function and wall thickness, with no regional wall motion abnormalities. Left ventricular ejection fraction is estimated at 60 %. Normal diastolic function. There is no pericardial effusion. No significant valve abnormalities. Right atrial pressure is around 5 mm of mercury. Christi Marion MD (Electronically Signed) Final Date: 11 June 2024 15:31 S
[2024-06-11 13:40] LABS: Erythrocyte Sedimentation Rate 5 mm/hr (0-10)
--- NOTE | 2024-06-11 13:48 | P.HP_ITS ---
Providers/Chief Complaint 2 Primary Care Provider: BUD Head Chief Complaint: stroke alert History of Present Illness Alonso Golden is a 59 year old male this is a 59-year-old male with past medical history of type 2 diabetes mellitus, history of CAD, hypertension, hyperlipidemia history of seizures, liver cirrhosis, who presents [facility] due to concerns for low blood pressure altered mental status. Currently patient is alert and oriented x 3, following all commands, able to sit up in bed, I cannot discern a slurring of his words or any focal weakness, he is blood pressures remain soft MAP around 55. I spoke to patient's patient's insistently recently, they tell me that this morning and the nursing staff were called into the patient room as he was not behaving appropriately, nursing staff observed the patient, he was having episodes of confusion and low blood pressures, but later on mentation improved, EMS was called when EMS was arriving Alonso started having more episodes of confusion, slurring his words. On arrival here he he was a stroke alert, seen by neurology, seen by ER provider, CT head no acute findings, CTA head and neck no acute findings, and a stroke scale 2, no tPA candidate, currently alert oriented x 3, following all commands, no focal neurologic deficits, no slurring of his words. Patient has no complaints except low back pain, he denies any chest pain, no palpitations, shortness of breath, no abdominal pain no dysuria. He tells me that Dr. Crespo recently lowered his blood pressure medications, to lisinopril 20. He denies any chest pain but he was in the emergency room here on the for chest pain. No new rashes, no falls, no headache, blurry vision, no neck pain, neck stiffness, he is able to get up in bed, able to move bilateral upper lower extremities, has good strength, denies any lightheadedness, no fevers, no chills Review of Systems 2 Const: Denies: fever(s) or chills Card: Denies: chest pain Resp: Denies: dyspnea GI: Denies: abdominal pain, nausea or vomiting : Denies: flank pain Musc: Reports: back pain; Denies: neck pain Neuro: Reports: weakness in extremities; Denies: headache(s) or numbness in extremities Endo: Denies: polyuria Medications/Allergies Home Medications Medication Instructions Recorded Confirmed Last Taken Type allopurinol 100 mg tablet 100 mg PO DAILY PRN GOUT 12/13/20 06/11/24 06/11/24 History methocarbamol 750 mg tablet 750 mg PO TID PRN back pain #15 04/14/23 06/11/24 06/11/24 Rx tabs diclofenac sodium 1 % topical gel 4 g topical QID PRN Pain 04/20/23 06/11/24 06/11/24 History (Voltaren Arthritis Pain) acetaminophen 650 mg 1,300 mg PO Q8H PRN pain 07/07/23 06/11/24 Unknown History tablet,extended release (Tylenol Arthritis Pain) aspirin 81 mg chewable tablet 81 mg PO DAILY@0700 #90 tabs 08/01/23 06/11/24 06/11/24 Rx clopidogrel 75 mg tablet (Plavix) 75 mg PO DAILY@0700 #90 tabs 08/01/23 06/11/24 06/11/24 Rx nitroglycerin 0.4 mg sublingual 0.4 mg sublingual Q5M PRN chest 08/01/23 06/11/24 Unknown Rx tablet pain 30 days #30 tabs bacitracin 500 unit/gram topical 1 applic topical DAILY #14 grams 09/25/23 06/11/24 06/11/24 Rx ointment celecoxib 100 mg capsule 100 mg PO BID #20 caps 10/26/23 06/11/24 06/11/24 Rx levothyroxine 150 mcg tablet 150 mcg PO DAILY 02/18/24 06/11/24 06/11/24 History calcium 600 mg (as 1 tab PO DAILY 05/29/24 06/11/24 06/11/24 History carbonate)-vitamin D3 10 mcg (400 unit) tablet (Calcium 600 + D(3)) insulin glargine 100 unit/mL 38 unit SUBCUT DAILY 05/29/24 06/11/24 06/11/24 History subcutaneous solution (Lantus U-100 Insulin) levetiracetam 750 mg tablet 750 mg PO BID 05/29/24 06/11/24 06/11/24 History metoprolol tartrate 50 mg tablet 50 mg PO DAILY 05/29/24 06/11/24 06/11/24 History pantoprazole 40 mg tablet,delayed 40 mg PO DAILY 05/29/24 06/11/24 06/11/24 History release lisinopril 20 mg tablet 20 mg PO DAILY 06/11/24 06/11/24 06/11/24 History Allergies Allergy/AdvReac Type Severity Reaction Status Date / Time cephalexin [From Keflex] Allergy Unknown Verified 06/11/24 08:48 Cephalosporins Allergy hives Verified 06/11/24 08:48 PFSH Acute 2 PFSH: Medical History (Updated 06/11/24 @ 13:54 by Kai New MD) Acute kidney injury Coronary artery disease Chronic low back pain Dyslipidemia Benign essential hypertension with target blood pressure below 140/90 Type 2 diabetes mellitus Atypical chest pain Epilepsy Obesity Glucose intolerance Smoker Hypothyroidism Surgical History History of PTCA H/O heart artery stent 07/11/2020-Cardiac stent placement mid LAD H/O umbilical hernia repair History of appendectomy Family History Father , at age 74 Family history of premature coronary artery disease Had a myocardial infarction in his 40s. Diabetes CAD (coronary artery disease) Chronic kidney disease (CKD) Stroke Brother Family history of premature coronary artery disease CAD (coronary artery disease) Had [place] in the 50s Diabetes Stroke Grandmother CAD (coronary artery disease) Diabetes Grandfather CAD (coronary artery disease) Mother , at age 84 CAD (coronary artery disease) Cancer Diabetes COVID-19 Family/Other Lung disease Denies family history of Clotting disorder Dementia Suicide Anesthesia complication Bleeding disorder Social History Smoking and tobacco/nicotine status: current every day tobacco/nicotine user Alcohol intake: current Alcohol intake frequency: holidays/special occasions only Substance/Drug Use: never Household members: spouse Housing: House Marital status: Current occupational status: disabled Vitals/I&O/Wt Last Vital Signs Temp 97.7 F 06/11/24 08:48 Pulse 70 06/11/24 13:00 Resp 18 06/11/24 13:00 BP 84/54 06/11/24 13:00 Pulse Ox 99 06/11/24 13:00 O2 Del Method Room Air 06/11/24 11:37 06/10/24 06/11/24 06/11/24 22:59 06:59 14:59 Intake Total 200 / 200 Balance 200 / 200 Weight last 48 hrs Weight 98.52 kg Physical Exam 2 Const: COMMON NORMALS: no acute distress and patient oriented x3 Eye: COMMON NORMALS: Equal, round and reactive pupils present and EOMs intact bilaterally Neck/C-Spine: COMMON NORMALS: full ROM and no lymphadenopathy Resp: COMMON NORMALS: normal respiratory effort, No retractions, No use of accessory muscles and clear to auscultation bilaterally AUSCULTATION: clear to auscultation bilaterally Cardio: COMMON NORMALS: regular rate, regular rhythm, S1 normal heart sound present and S2 normal heart sound present RATE: regular rate RHYTHM: r egular rhythm HEART SOUNDS: S1 normal heart sound present and S2 normal heart sound present GI: COMMON NORMALS: Normal to inspection, nondistended, normoactive bowel sounds present, Soft to palpation and non-tender Extremity: COMMON NORMALS: no calf tenderness and no pedal edema Neuro: COMMON NORMALS: patient oriented x3, CN's II-XII intact bilaterally and moves all extremities Psych: COMMON NORMALS: mental status grossly normal Data 06/11/24 08:55 06/11/24 08:55 Micro: Microbiology 06/11/24 11:09 Blood Culture - Preliminary Blood SPECIMEN COLLECTED 06/11/24 11:04 Blood Culture - Preliminary Blood SPECIMEN COLLECTED A&P Assessment and plan (1) Type 2 diabetes mellitus: Qualifiers: Diabetes mellitus shelter insulin use: without furnace charger use Diabetes mellitus complication status: with hyperglycemia Qualified Code(s): E11.65 - Type 2 diabetes mellitus with hyperglycemia (2) Thrombocytopenia: (3) Cirrhosis of liver with ascites: (4) Acute hypotension: (5) Altered mental status: (6) Acute kidney injury: (7) NSTEMI (non-ST elevated myocardial infarction): Plan Altered mental status, hypotension -Etiology unclear - Possible TIA? -Possible infectious etiology? -CT head no acute findings -CTA head and neck CT/CT angio headneck* [id number] IMPRESSION: 1. No evidence of proximal flow-limiting intracranial stenosis. 2. Less than 50% cervical ICA stenosis bilaterally with mild to moderate calcified atheromatous plaque RIGHT greater than LEFT. 3. RIGHT dominant vertebral artery. 4. Mild intracranial atheromatous disease. -Sepsis Plan -Continue aspirin, Plavix, statin -Monitor blood pressures closely -For now we will start broad-spectrum antibiotic therapy vancomycin, Zosyn -Cardiac echo -Neurochecks, dysphagia eval, NIH stroke scale, PT OT -Follow-up blood cultures -Sputum culture -Urine culture -CT imaging Acute kidney injury, creatinine 1.7, IV fluids Elevated lactic acid, blood cultures, CRP, sed rate, sputum cultures, respiratory viral panel, valdes CT chest abdomen pelvis Type 2 diabetes mellitus, Lantus 10 units daily, low-dose sliding scale History of liver cirrhosis NSTEMI, no chest pain complaints, serial EKGs, serial troponins, telemetry monitoring Full code Lovenox for DVT prophylaxis Attestations 2 Medical Necessity Statement*: Patient requires hospitalization, inpatient, greater than 2 midnights for altered mental status, hypotension Diagnoses Type 2 diabetes mellitus with hyperglycemia, without long-term current use of insulin E11.65 Diabetes mellitus furnace charger insulin use: without furnace charger use Diabetes mellitus complication status: with hyperglycemia Thrombocytopenia D69.6 Cirrhosis of liver with ascites K74.60; R18.8 Acute hypotension I95.9 Altered mental status R41.82 Acute kidney injury N17.9 NSTEMI (non-ST elevated myocardial infarction) I21.4
[2024-06-11 14:11] LABS: NT Pro B Type Natriuretic Pept 50 pg/mL (0-125)
--- NOTE | 2024-06-11 15:08 | PHA.VACGOAL ---
Vancomycin Goal - Goal Vancomycin Goal:: 15-20 mg/L Vancomycin Indication:: Other - Therapy Current therapy:: Pip/Tazo Day of therpy:: Day []of [] . Actual body weight (kg): 217 lb 3.2 oz - Data Labs: WBC 5.07 10^3/uL (3.29-11.43) 06/11/24 08:55 RBC 4.08 10^6/uL (3.85-5.65) 06/11/24 08:55 Hgb 11.70 g/dL (11.27-16.99) 06/11/24 08:55 Hct 35.6 % (37-53) L 06/11/24 08:55 MCV 87.3 fl (82-101) 06/11/24 08:55 MCH 28.7 pg (27-33) 06/11/24 08:55 MCHC 32.9 g/dL (30-55) 06/11/24 08:55 RDW 13.2 % (12.1-15.1) 06/11/24 08:55 Sodium 141 mmol/L (136-145) 06/11/24 08:55 Potassium 3.8 mmol/L (3.5-5.1) 06/11/24 08:55 Chloride 105 mmol/L (98-107) 06/11/24 08:55 Carbon Dioxide 26 mmol/L (22-29) 06/11/24 08:55 Anion Gap 13.8 (5-19) 06/11/24 08:55 BUN 16 mg/dL (6-20) 06/11/24 08:55 Creatinine 1.7 mg/dL (0.7-1.2) H 06/11/24 08:55 GFR Calculation 41.8 mL/min (90-130) L 06/11/24 08:55 Last dialysis session:: N/A Treatment plan:: new consult Regimen:: LOADING DOSE OF 3000 MG GIVEN PER DOSING PROTOCOL MAINTENANCE DOSE OF 1000 MG Q12H Follow up:: WILL CONTINUE TO MONITOR AND FOLLOW UP DAILY
[2024-06-11] MEDS: iohexol 350 mg/mL 500 mL Btl (per mL) PO (15:13)
--- NOTE | 2024-06-11 15:21 | ECG_ITS ---
[email or web address] 2024-[facility]-11 Pat Name: Alonso Golden Department: Room: Gender: Male Transplant Nurse Practitioner: : 1965 Requested By: Kerry Jeter Order Number: [id number] Mariaa MD: Vernon Guillaume M.D. Measurements Intervals [place] Rate: 57 P: 44 MN: 178 QRS: -32 QRSD: 92 T: 9 QT: 448 QTc: 439 Interpretive Statements SINUS BRADYCARDIA LEFT AXIS DEVIATION [QRS AXIS < -30] Compared to ECG 06/11/2024 11:15:07 Left-axis deviation now present Sinus rhythm no longer present Myocardial infarct finding no longer present Electronically Signed On 06-12-2024 13:32:07 [employer] SALES SUPERVISOR by Vernon Guillaume M.D. [email or web address]
[2024-06-11] MEDS: vancomycin 3,000 MG/600 ML PIGGYBACK 200 MG IV (15:23)
[2024-06-11] MEDS: piperacillin-tazobactam 3.375 GM in sodium chloride 0.9% (plus) 50 ML IV ×2 (15:23→22:44)
[2024-06-11 15:47] LABS: Glucose Point of Care 148 mg/dL (70-110)
[2024-06-11 16:07] LABS: Estmated Average Glucose 177; Hemoglobin A1C 7.8 % (4.0-6.0)
[2024-06-11] MEDS: pantoprazole 40 mg SDV IVP (16:11)
[2024-06-11] MEDS: enoxaparin 40 mg/0.4 mL Syringe SUBCUT (16:13)
[2024-06-11 16:32] LABS: Chol HDL Ratio 5.68 mg/dL (1.0-5.00); Cholesterol 125 mg/dL (0-200); HDL Cholesterol 22 mg/dL (60-100); LDL Cholesterol Calculated 79 mg/dL (50-129); LDL HDL Ratio 3.59 RATIO (0.00-3.22); Thyroid Stimulating Hormone 3.86 uIU/mL (0.27-4.20); Triglycerides 120 mg/dL (0-150)
[2024-06-11] MEDS: sucralfate 1 gm/10 mL Oral Liq UDC PO ×2 (16:49→22:41)
[2024-06-11] MEDS: albumin 50 G/200 ML BAG 60 G IV (16:50)
[2024-06-11 18:27] LABS: Glucose Point of Care 133 mg/dL (70-110)
[2024-06-11] MEDS: levETIRAcetam 500 mg Tablet 750 MG PO (18:39)
[2024-06-11] MEDS: lactulose oral liq 20 gm/30 mL UDC 10 GM PO (18:40)
[2024-06-11 20:08] LABS: Adenovirus Not Detected (NOT DETECT); Chlamydia Pneumoniae Not Detected (NOT DETECT); Coronavirus 229E,HKU1,NL63,OC4 Not Detected (NOT DETECT); Human Metapneumovirus Not Detected (NOT DETECT); Human Rhinovirus/Enterovirus Not Detected (NOT DETECT); Influenza A Not Detected (NOT DETECT); Influenza A H1 Not Detected (NOT DETECT); Influenza A H1-2009 Not Detected (NOT DETECT); Influenza A H3 Not Detected (NOT DETECT); Influenza B Not Detected (NOT DETECT); Mycoplasma Pneumoniae Not Detected (NOT DETECT); Parainfluenza Virus Type 1 Not Detected (NOT DETECT); Parainfluenza Virus Type 2 Not Detected (NOT DETECT); Parainfluenza Virus Type 3 Not Detected (NOT DETECT); Parainfluenza Virus Type 4 Not Detected (NOT DETECT); Respiratory Syncytial Virus A Not Detected (NOT DETECT); Respiratory Syncytial Virus B Not Detected (NOT DETECT); SARS-COV-2 Not Detected (NOT DETECT)
[2024-06-11] MEDS: morphine 4 mg/mL SDV 1 mL 2 MG IVP (21:17)
[2024-06-12] VITALS (37 sets, daily range): BP systolic 81–154; BP diastolic 47–96; PULSE 54–75; RESP 10–22; TEMP 36.3–36.8; O2SAT 90–100; BMI 29.2
[2024-06-12] MEDS: VANCOMYCIN ADD-Vantage 1,000 MG in 0.9% NaCl ADD-Vantage 250 ML 250 MG IV (03:39)
[2024-06-12] MEDS: sucralfate 1 gm/10 mL Oral Liq UDC PO ×4 (03:41→22:43)
[2024-06-12] MEDS: pantoprazole 40 mg SDV IVP ×2 (03:41→16:13)
[2024-06-12] MEDS: albumin 25 G/100 ML BAG 60 G IV ×3 (05:08→21:39)
[2024-06-12] MEDS: sodium chloride 0.9% 1,000 ML 125 ML IV (05:11)
[2024-06-12 05:30] LABS: Basophils # 0.1 10^3/uL (0.0-0.1); Basophils % 1.2 %; Eosinophils # 0.2 10^3/uL (0.0-0.8); Hematocrit 35.2 % (37-53); Lymphocytes # 0.7 10^3/uL (0.8-4.8); Lymphocytes % 17.4 %; Mean Corpuscular HGB Conc 31.3 g/dL (30-55); Mean Corpuscular Hemoglobin 29.4 pg (27-33); Mean Corpuscular Volume 94.1 fl (82-101); Mean Platelet Volume 12.9 fL (7.4-10.4); Monocytes # 0.6 10^3/uL (0.2-0.9); Monocytes % 13.9 %; Neutrophils # 2.45 10^3/uL (1.8-7.7); Nucleated Red Blood Cells % 0 %; Positive C 1; Red Blood Count 3.74 10^6/uL (3.85-5.65); Red Cell Distribution Width 13.3 % (12.1-15.1); White Blood Count 4.02 10^3/uL (3.29-11.43)
[2024-06-12 05:33] LABS: Platelet Count 28 10^3/cmm (157-399)
[2024-06-12 05:52] LABS: Alanine Aminotransferase 17 U/L (0-41); Albumin Level 3.6 g/dL (3.5-5.2); Alkaline Phosphatase 67 U/L (40-130); Blood Urea Nitrogen 13 mg/dL (6-20); Calcium 8.5 mg/dL (8.5-10.5); Carbon Dioxide 21 mmol/L (22-29); Chloride 107 mmol/L (98-107); Creatinine Clr Calc Pharmacy 77.7376; Globulin 2.6 g/dL (1.3-4.6); Glomerular Filtration Rate 62.4 mL/min (90-130); Glucose 134 mg/dL (65-115); Magnesium 1.4 mg/dL (1.7-2.3); Osmolality Calculated 286 mOsm/kg (285-295); Phosphorus 2.6 mg/dL (2.5-4.5); Sodium 137 mmol/L (136-145); Total Bilirubin 1.4 mg/dL (0.15-1.2); Total Protein 6.2 g/dL (6.6-8.7)
[2024-06-12 05:53] LABS: Aspartate Amino Transferase 32 U/L (0-40)
[2024-06-12] MEDS: piperacillin-tazobactam 3.375 GM in sodium chloride 0.9% (plus) 50 ML IV ×2 (06:30→16:13)
[2024-06-12] MEDS: morphine 4 mg/mL SDV 1 mL 2 MG IVP ×4 (07:17→22:43)
[2024-06-12 07:23] LABS: Glucose Point of Care 106 mg/dL (70-110)
[2024-06-12] MEDS: levETIRAcetam 500 mg Tablet 750 MG PO ×2 (08:24→17:40)
[2024-06-12] MEDS: levothyroxine 150 mcg Tablet PO (08:24)
[2024-06-12] MEDS: lactulose oral liq 20 gm/30 mL UDC 10 GM PO ×2 (08:25→17:39)
[2024-06-12] MEDS: insulin glargine 100 units/1 mL 15 UNIT SUBCUT (08:51)
[2024-06-12] MEDS: aspirin 81 mg Chew Tablet PO (09:38)
[2024-06-12] MEDS: nicotine 21 mg Patch 1 PATCH TRANSDERMA (10:32)
[2024-06-12 11:14] LABS: Glucose Point of Care 195 mg/dL (70-110)
[2024-06-12] MEDS: insulin lispro 100 unit/1 mL SUBCUT ×2 (11:37→17:44)
--- NOTE | 2024-06-12 16:04 | P.PN_ITS ---
Subjective 2 Subjective: Patient was seen this morning, denies any fevers, no chills, no cough, no abdominal pain, he is alert to person, to place, not to time he follows all commands, no facial droop no slurring of words, I cannot discern any focal weakness, no seizure-like episodes he does report abdominal pain which is improving he reports that in the past he has had a paracentesis before, discussed that he potentially might require paracentesis no headache, blurry vision, no nausea, no vomiting Vitals/I&O/Wt Last Vital Signs Temp 98.0 F 06/12/24 12:00 Pulse 65 06/12/24 12:00 Resp 15 06/12/24 12:00 BP 142/86 06/12/24 12:00 Pulse Ox 94 06/12/24 12:00 O2 Del Method Room Air 06/12/24 12:00 O2 Flow Rate 2 06/12/24 04:00 06/12/24 06/12/24 06/12/24 06:59 14:59 22:59 Intake Total 1206.25 / 5506.25 1091.667 / 1091.667 Output Total 900 / 900 Balance 1206.25 / 5506.25 191.667 / 191.667 Weight last 48 hrs Weight 92.805 kg Weight 92.5 kg Weight 98.52 kg Physical Exam 2 Const: COMMON NORMALS: no acute distress ORIENTATION/CONSCIOUSNESS: Yes awake, Yes oriented to person and Yes oriented to place; not oriented to time Resp: COMMON NORMALS: normal respiratory effort, No retractions, No use of accessory muscles and clear to auscultation bilaterally AUSCULTATION: clear to auscultation bilaterally Cardio: COMMON NORMALS: regular rate, regular rhythm, S1 normal heart sound present and S2 normal heart sound present RATE: regular rate RHYTHM: r egular rhythm HEART SOUNDS: S1 normal heart sound present and S2 normal heart sound present GI: COMMON NORMALS: Normal to inspection, nondistended, normoactive bowel sounds present and non-tender Extremity: COMMON NORMALS: no pedal edema Neuro: COMMON NORMALS: CN's II-XII intact bilaterally, moves all extremities and no focal motor deficits SENSORIUM/ORIENTATION: Yes oriented to person, Yes oriented to place and No oriented to time Psych: COMMON NORMALS: mental status grossly normal Data 06/12/24 05:06 02/01/25 05:06 Micro: Microbiology 06/11/24 11:09 Blood Culture - Preliminary Blood NEGATIVE TO DATE 06/11/24 11:04 Blood Culture - Preliminary Blood NEGATIVE TO DATE A&P Assessment and plan (1) Type 2 diabetes mellitus: Qualifiers: Diabetes mellitus [facility] insulin use: without parts counterman use Diabetes mellitus complication status: with hyperglycemia Qualified Code(s): E11.65 - Type 2 diabetes mellitus with hyperglycemia (2) Thrombocytopenia: (3) Cirrhosis of liver with ascites: (4) Acute hypotension: (5) Altered mental status: (6) Acute kidney injury: (7) NSTEMI (non-ST elevated myocardial infarction): (8) SBP (spontaneous bacterial peritonitis): (9) Gastritis: Plan Altered mental status, hypotension, resolved -Etiology unclear - Possible TIA? -Possible infectious etiology? Concerns for spontaneous bacterial peritonitis -CT head no acute findings -CTA head and neck CT/CT angio headneck* [id number] IMPRESSION: 1. No evidence of proximal flow-limiting intracranial stenosis. 2. Less than 50% cervical ICA stenosis bilaterally with mild to moderate calcified atheromatous plaque RIGHT greater than LEFT. 3. RIGHT dominant vertebral artery. 4. Mild intracranial atheromatous disease. -Sepsis IMPRESSION: 1. Persistent findings of portal hypertension. This includes an increased large amount of free intraperitoneal fluid and fat stranding throughout the abdomen and pelvis. Plan -Continue aspirin, Plavix, statin -Monitor blood pressures closely -Continue Zosyn -Continue albumin -Paracentesis ordered for Friday -Cardiac echo -Neurochecks, dysphagia eval, NIH stroke scale, PT OT -Follow-up blood cultures -Sputum culture -Urine culture Sepsis, with concerns for spontaneous bacterial peritonitis -Paracentesis can only be done on Friday -Follow blood cultures -Continue Zosyn -Continue albumin Gastritis 2. New diffuse thickening of the wall of the gastric fundus and much of the gastric body. Probably gastritis, but upper endoscopy is recommended to exclude malignancy. -Patient is on aspirin, Plavix, -Start Protonix, Carafate Acute on chronic thrombocytopenia recheck CBC this afternoon Acute kidney injury, resolved, stop IV fluids Elevated lactic acid, resolved 1.2 Type 2 diabetes mellitus, Lantus 10 units daily, low-dose sliding scale History of liver cirrhosis NSTEMI, no chest pain complaints, serial EKGs, serial troponins, telemetry monitoring Full code Lovenox for DVT prophylaxis currently on hold due to thrombocytopenia Attestations 2 Medical Necessity Statement*: Patient requires hospice for altered mental status, concerns for sepsis, gastritis, SBP, possible TIA Diagnoses Type 2 diabetes mellitus with hyperglycemia, without long-term current use of insulin E11.65 Diabetes mellitus parts counterman insulin use: without [facility] use Diabetes mellitus complication status: with hyperglycemia Thrombocytopenia D69.6 Cirrhosis of liver with ascites K74.60; R18.8 Acute hypotension I95.9 Altered mental status R41.82 Acute kidney injury N17.9 NSTEMI (non-ST elevated myocardial infarction) I21.4 SBP (spontaneous bacterial peritonitis) K65.2 Gastritis K29.70
[2024-06-12 16:44] LABS: Basophils # 0.1 10^3/uL (0.0-0.1); Basophils % 1.1 %; Eosinophils # 0.3 10^3/uL (0.0-0.8); Eosinophils % 5.5 %; Hematocrit 36.1 % (37-53); Lymphocytes # 0.7 10^3/uL (0.8-4.8); Lymphocytes % 14.2 %; Mean Corpuscular HGB Conc 32.4 g/dL (30-55); Mean Corpuscular Hemoglobin 28.8 pg (27-33); Mean Corpuscular Volume 88.9 fl (82-101); Mean Platelet Volume 12.1 fL (7.4-10.4); Monocytes # 0.5 10^3/uL (0.2-0.9); Monocytes % 10.9 %; Neutrophils # 3.09 10^3/uL (1.8-7.7); Neutrophils % 67.6 %; Nucleated Red Blood Cells % 0 %; Platelet Count 31 10^3/cmm (157-399); Red Blood Count 4.06 10^6/uL (3.85-5.65); Red Cell Distribution Width 13.2 % (12.1-15.1); White Blood Count 4.57 10^3/uL (3.29-11.43)
[2024-06-12 17:51] LABS: Glucose Point of Care 147 mg/dL (70-110)
[2024-06-12 21:42] LABS: Glucose Point of Care 210 mg/dL (70-110)
[2024-06-13] VITALS (14 sets, daily range): BP systolic 124–154; BP diastolic 77–96; PULSE 59–71; RESP 13–24; TEMP 36.6–36.8; O2SAT 93–99
[2024-06-13] MEDS: piperacillin-tazobactam 3.375 GM in sodium chloride 0.9% (plus) 50 ML IV ×4 (00:16→23:30)
[2024-06-13] MEDS: pantoprazole 40 mg SDV IVP ×2 (03:29→16:46)
[2024-06-13] MEDS: sucralfate 1 gm/10 mL Oral Liq UDC PO ×4 (03:29→21:39)
[2024-06-13] MEDS: morphine 4 mg/mL SDV 1 mL 2 MG IVP ×4 (03:30→20:06)
[2024-06-13 03:50] LABS: Basophils # 0.1 10^3/uL (0.0-0.1); Basophils % 1.1 %; Eosinophils # 0.3 10^3/uL (0.0-0.8); Eosinophils % 5.9 %; Hematocrit 35.3 % (37-53); Lymphocytes # 0.7 10^3/uL (0.8-4.8); Lymphocytes % 16.2 %; Mean Corpuscular Volume 90.7 fl (82-101); Mean Platelet Volume 12.7 fL (7.4-10.4); Monocytes # 0.6 10^3/uL (0.2-0.9); Monocytes % 12.9 %; Neutrophils # 2.89 10^3/uL (1.8-7.7); Neutrophils % 63.5 %; Nucleated Red Blood Cells % 0 %; Positive C 1; Red Blood Count 3.89 10^6/uL (3.85-5.65); Red Cell Distribution Width 13.2 % (12.1-15.1); White Blood Count 4.56 10^3/uL (3.29-11.43)
[2024-06-13 04:16] LABS: Alanine Aminotransferase 19 U/L (0-41); Albumin Level 4.3 g/dL (3.5-5.2); Alkaline Phosphatase 72 U/L (40-130); Aspartate Amino Transferase 30 U/L (0-40); Blood Urea Nitrogen 12 mg/dL (6-20); Calcium 9.4 mg/dL (8.5-10.5); Carbon Dioxide 26 mmol/L (22-29); Chloride 103 mmol/L (98-107); Creatinine Clr Calc Pharmacy 66.6322; Globulin 2.8 g/dL (1.3-4.6); Glomerular Filtration Rate 52.2 mL/min (90-130); Glucose 142 mg/dL (65-115); Magnesium 1.4 mg/dL (1.7-2.3); Osmolality Calculated 288 mOsm/kg (285-295); Phosphorus 2.3 mg/dL (2.5-4.5); Sodium 138 mmol/L (136-145); Total Bilirubin 1.7 mg/dL (0.15-1.2); Total Protein 7.1 g/dL (6.6-8.7)
--- NOTE | 2024-06-13 04:26 | PC.NURSE ---
Patient transferred to [facility]SU at 0415.
[2024-06-13 04:38] LABS: Anion Gap 12.8 (5-19); Potassium 3.8 mmol/L (3.5-5.1)
[2024-06-13 04:39] LABS: Platelet Count 29 10^3/cmm (157-399)
[2024-06-13] MEDS: albumin 25 G/100 ML BAG 60 G IV ×3 (05:26→21:39)
[2024-06-13 06:34] LABS: Glucose Point of Care 138 mg/dL (70-110)
[2024-06-13] MEDS: aspirin 81 mg Chew Tablet PO (06:57)
[2024-06-13] MEDS: insulin glargine 100 units/1 mL 15 UNIT SUBCUT (08:06)
[2024-06-13] MEDS: lactulose oral liq 20 gm/30 mL UDC 10 GM PO ×2 (08:07→17:36)
[2024-06-13] MEDS: nicotine 21 mg Patch 1 PATCH TRANSDERMA (08:08)
[2024-06-13] MEDS: levothyroxine 150 mcg Tablet PO (08:09)
[2024-06-13] MEDS: levETIRAcetam 500 mg Tablet 750 MG PO ×2 (08:09→17:35)
[2024-06-13 11:42] LABS: Glucose Point of Care 179 mg/dL (70-110)
--- NOTE | 2024-06-13 12:16 | PM.PN ---
Subjective Subjective: Patient was seen this morning, sitting up to side of bed, no complaints of headache, blurry vision, no nausea, no vomiting he is alert to person, to place, not to time he follows all commands no focal weakness is actually drying and he is coloring in a coloring book, does report right upper quadrant pain Vitals/I&O/Wt Last Vital Signs Temp 98.2 F 06/13/24 11:42 Pulse 67 06/13/24 11:42 Resp 24 H 06/13/24 11:42 BP 130/82 06/13/24 11:42 Pulse Ox 98 06/13/24 11:42 O2 Del Method Room Air 06/13/24 11:42 O2 Flow Rate 2 06/12/24 04:00 06/12/24 06/13/24 06/13/24 22:59 06:59 14:59 Intake Total 570 / 1761.667 250 / 2011.667 360 / 360 Balance 570 / 861.667 250 / 1111.667 360 / 360 Weight last 48 hrs Weight 92.805 kg Weight 92.5 kg Physical Exam Const: COMMON NORMALS: no acute distress and patient oriented x3 Resp: COMMON NORMALS: normal respiratory effort, No retractions, No use of accessory muscles and clear to auscultation bilaterally AUSCULTATION: clear to auscultation bilaterally Cardio: COMMON NORMALS: regular rate, regular rhythm, S1 normal heart sound present and S2 normal heart sound present RATE: regular rate RHYTHM: regular rhythm HEART SOUNDS: S1 normal heart sound present and S2 normal heart sound present GI: COMMON NORMALS: Normal to inspection, nondistended, normoactive bowel sounds present and non-tender Extremity: COMMON NORMALS: no clubbing, cyanosis or edema and no pedal edema Neuro: COMMON NORMALS: patient oriented x3 Psych: COMMON NORMALS: mental status grossly normal Data 06/13/24 02:43 06/13/24 02:43 Micro: Microbiology 06/11/24 11:09 Blood Culture - Preliminary Blood NEGATIVE TO DATE 06/11/24 11:04 Blood Culture - Preliminary Blood NEGATIVE TO DATE A&P Assessment and plan (1) Type 2 diabetes mellitus: Qualifiers: Diabetes mellitus senior care insulin use: without senior care use Diabetes mellitus complication status: with hyperglycemia Qualified Code(s): E11.65 - Type 2 diabetes mellitus with hyperglycemia (2) Thrombocytopenia: (3) Cirrhosis of liver with ascites: (4) Acute hypotension: (5) Altered mental status: (6) Acute kidney injury: (7) NSTEMI (non-ST elevated myocardial infarction): (8) SBP (spontaneous bacterial peritonitis): (9) Gastritis: Plan Altered mental status, hypotension, resolved -Etiology unclear - Possible TIA? -Possible infectious etiology? Concerns for spontaneous bacterial peritonitis -CT head no acute findings -CTA head and neck CT/CT angio headneck* [id number] IMPRESSION: 1. No evidence of proximal flow-limiting intracranial stenosis. 2. Less than 50% cervical ICA stenosis bilaterally with mild to moderate calcified atheromatous plaque RIGHT greater than LEFT. 3. RIGHT dominant vertebral artery. 4. Mild intracranial atheromatous disease. -Sepsis IMPRESSION: 1. Persistent findings of portal hypertension. This includes an increased large amount of free intraperitoneal fluid and fat stranding throughout the abdomen and pelvis. Plan -Continue aspirin, statin, Plavix on hold due to thrombocytopenia -Monitor blood pressures closely -Continue Zosyn -Continue albumin -Paracentesis ordered for Friday -Cardiac echo -Neurochecks, dysphagia eval, NIH stroke scale, PT OT -Follow-up blood cultures -Sputum culture -Urine culture Sepsis, with concerns for spontaneous bacterial peritonitis -Paracentesis can only be done on Friday -Follow blood cultures -Continue Zosyn -Continue albumin Gastritis 2. New diffuse thickening of the wall of the gastric fundus and much of the gastric body. Probably gastritis, but upper endoscopy is recommended to exclude malignancy. -Patient is on aspirin, Plavix, -Start Protonix, Carafate Acute on chronic thrombocytopenia recheck CBC this afternoon Acute kidney injury, resolved, stop IV fluids Elevated lactic acid, resolved 1.2 Type 2 diabetes mellitus, Lantus 10 units daily, low-dose sliding scale History of liver cirrhosis NSTEMI, no chest pain complaints, serial EKGs, serial troponins, telemetry monitoring Acute on chronic thrombocytopenia -Order peripheral smear -Lovenox on hold -Plavix on hold Full code Lovenox for DVT prophylaxis currently on hold due to thrombocytopenia Attestations Medical Necessity Statement*: Patient requires hospitalization for altered mental status, TIA versus subtle spontaneous bacterial peritonitis awaiting paracentesis, gastritis Diagnoses Type 2 diabetes mellitus with hyperglycemia, without long-term current use of insulin E11.65 Diabetes 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
[2024-06-13] MEDS: insulin lispro 100 unit/1 mL SUBCUT ×2 (12:17→17:35)
[2024-06-13 16:05] LABS: Glucose Point of Care 186 mg/dL (70-110)
[2024-06-13 21:06] LABS: Glucose Point of Care 169 mg/dL (70-110)
[2024-06-14] VITALS (9 sets, daily range): BP systolic 131–157; BP diastolic 80–98; PULSE 66–84; RESP 12–18; TEMP 36.4–36.9; O2SAT 93–98
[2024-06-14] MEDS: morphine 4 mg/mL SDV 1 mL 2 MG IVP ×3 (00:58→11:05)
[2024-06-14 02:35] LABS: Basophils # 0.1 10^3/uL (0.0-0.1); Eosinophils # 0.3 10^3/uL (0.0-0.8); Eosinophils % 5.9 %; Hematocrit 33.9 % (37-53); Lymphocytes # 0.8 10^3/uL (0.8-4.8); Lymphocytes % 15.9 %; Mean Corpuscular Hemoglobin 29.4 pg (27-33); Mean Platelet Volume 11.1 fL (7.4-10.4); Monocytes # 0.6 10^3/uL (0.2-0.9); Monocytes % 11.8 %; Neutrophils # 3.31 10^3/uL (1.8-7.7); Neutrophils % 64.8 %; Nucleated Red Blood Cells % 0 %; Red Blood Count 3.81 10^6/uL (3.85-5.65); Red Cell Distribution Width 13.2 % (12.1-15.1)
[2024-06-14 02:42] LABS: Platelet Count 29 10^3/cmm (157-399)
[2024-06-14 02:55] LABS: Alanine Aminotransferase 17 U/L (0-41); Albumin Level 4.5 g/dL (3.5-5.2); Alkaline Phosphatase 70 U/L (40-130); Aspartate Amino Transferase 33 U/L (0-40); Blood Urea Nitrogen 11 mg/dL (6-20); Calcium 9.5 mg/dL (8.5-10.5); Carbon Dioxide 24 mmol/L (22-29); Chloride 100 mmol/L (98-107); Creatinine Clr Calc Pharmacy 66.6322; Globulin 2.4 g/dL (1.3-4.6); Glomerular Filtration Rate 52.2 mL/min (90-130); Glucose 175 mg/dL (65-115); Magnesium 1.4 mg/dL (1.7-2.3); Osmolality Calculated 290 mOsm/kg (285-295); Phosphorus 1.9 mg/dL (2.5-4.5); Sodium 138 mmol/L (136-145); Total Bilirubin 1.9 mg/dL (0.15-1.2); Total Protein 6.9 g/dL (6.6-8.7)
[2024-06-14 03:07] LABS: Anion Gap 17.7 (5-19); Potassium 3.7 mmol/L (3.5-5.1)
[2024-06-14] MEDS: pantoprazole 40 mg SDV IVP (04:54)
[2024-06-14] MEDS: sucralfate 1 gm/10 mL Oral Liq UDC PO ×2 (04:55→08:55)
[2024-06-14] MEDS: albumin 25 G/100 ML BAG 60 G IV (04:55)
[2024-06-14] MEDS: aspirin 81 mg Chew Tablet PO (06:13)
[2024-06-14 06:25] LABS: Glucose Point of Care 140 mg/dL (70-110)
[2024-06-14] MEDS: insulin glargine 100 units/1 mL 15 UNIT SUBCUT (08:54)
[2024-06-14] MEDS: lactulose oral liq 20 gm/30 mL UDC 10 GM PO (08:54)
[2024-06-14] MEDS: piperacillin-tazobactam 3.375 GM in sodium chloride 0.9% (plus) 50 ML IV (08:55)
[2024-06-14] MEDS: levETIRAcetam 500 mg Tablet 750 MG PO (08:56)
[2024-06-14] MEDS: levothyroxine 150 mcg Tablet PO (08:56)
[2024-06-14] MEDS: dexamethasone 10 mg/mL INJ IVP (08:57)
[2024-06-14] MEDS: magnesium sulfate premix 1 GM/100 ML PIGGYBACK IV (08:59)
[2024-06-14] MEDS: nicotine 21 mg Patch 1 PATCH TRANSDERMA (08:59)
[2024-06-14] MEDS: potassium phosphate (mEq K) 40 MEQ in sodium chloride 0.9% (100 ml) 100 ML 27.25 MEQ IV (09:00)
--- NOTE | 2024-06-14 12:01 | PM.DCS ---
Discharge Providers Date of Admission: 06/11/24 12:12 Date of Discharge: June 14, 2024 Attending Provider at Admission: Kai New MD Attending Provider at Discharge: Kai New MD Primary Care Provider: BUD Head Diagnoses at Discharge Discharge Diagnosis (1) Type 2 diabetes mellitus: Status: Acute Qualifiers: Diabetes mellitus continuous churn buttermaker insulin use: without longterm use Diabetes mellitus complication status: with hyperglycemia Qualified Code(s): E11.65 - Type 2 diabetes mellitus with hyperglycemia (2) Thrombocytopenia: Status: Acute (3) Cirrhosis of liver with ascites: Status: Acute (4) Acute hypotension: Status: Acute (5) Altered mental status: Status: Acute (6) Acute kidney injury: Status: Acute (7) NSTEMI (non-ST elevated myocardial infarction): Status: Acute (8) SBP (spontaneous bacterial peritonitis): Status: Acute (9) Gastritis: Status: Acute Reason for Visit Reason for Visit: stroke alert Hospital Course Hospital Course Alonso Golden is a 59 year old male this is a 59-year-old male with past medical history of type 2 diabetes mellitus, history of CAD, hypertension, hyperlipidemia history of seizures, liver cirrhosis, who presents [facility] due to concerns for low blood pressure altered mental status. Currently patient is alert and oriented x 3, following all commands, able to sit up in bed, I cannot discern a slurring of his words or any focal weakness, he is blood pressures remain soft MAP around 55. I spoke to patient's patient's insistently recently, they tell me that this morning and the nursing staff were called into the patient room as he was not behaving appropriately, nursing staff observed the patient, he was having episodes of confusion and low blood pressures, but later on mentation improved, EMS was called when EMS was arriving Alonso started having more episodes of confusion, slurring his words. On arrival here he he was a stroke alert, seen by neurology, seen by ER provider, CT head no acute findings, CTA head and neck no acute findings, and a stroke scale 2, no tPA candidate, currently alert oriented x 3, following all commands, no focal neurologic deficits, no slurring of his words. Patient has no complaints except low back pain, he denies any chest pain, no palpitations, shortness of breath, no abdominal pain no dysuria. He tells me that Dr. Crespo recently lowered his blood pressure medications, to lisinopril 20. He denies any chest pain but he was in the emergency room here on the 18 for chest pain. No new rashes, no falls, no headache, blurry vision, no neck pain, neck stiffness, he is able to get up in bed, able to move bilateral upper lower extremities, has good strength, denies any lightheadedness, no fevers, no chills Patient was admitted to [facility] for altered mental status, accordingly TIA, concerns for SBP, overall mentation has improved, alert oriented x 2, following all commands, ambulatory - Possible TIA? -CT head no acute findings -CTA head and neck CT/CT angio headneck* [id number] IMPRESSION: 1. No evidence of proximal flow-limiting intracranial stenosis. 2. Less than 50% cervical ICA stenosis bilaterally with mild to moderate calcified atheromatous plaque RIGHT greater than LEFT. 3. RIGHT dominant vertebral artery. 4. Mild intracranial atheromatous disease. -Remains alert and oriented x 2, following all commands, is ambulatory ? Will be discharged on aspirin, statin with a close follow-up with neurology as outpatient ? His Plavix has been held due to thrombocytopenia, can be resumed depending on clinical progress There was concerns for sepsis secondary to spontaneous bacterial peritonitis, CT imaging as below IMPRESSION: 1. Persistent findings of portal hypertension. This includes an increased large amount of free intraperitoneal fluid and fat stranding throughout the abdomen and pelvis. -Overall clinically remained stable, afebrile with no significant abdominal pain complaints -Ultrasound paracentesis not enough fluid for diagnostic or therapeutic paracentesis -Blood cultures remain unremarkable so far -Thus I feel the likelihood of spontaneous bacterial peritonitis fairly unlikely -Will discharge him with 5 more days of antibiotics with close follow-up with primary care provider as outpatient During his hospitalization he was found to have gastritis Gastritis 2. New diffuse thickening of the wall of the gastric fundus and much of the gastric body. Probably gastritis, but upper endoscopy is recommended to exclude malignancy. -Patient is on aspirin, -Start Protonix, Carafate on discharge with a follow-up with his GI physician -If he does develop any bloody black stools to go to the emergency room Patient's hospitalization was complicated by acute on chronic thrombocytopenia likely from underlying liver cirrhosis, dilutional, no evidence of bleeding ? Continue to hold Plavix on discharge ? Follow-up with oncology as outpatient Physical Exam Const: COMMON NORMALS: no acute distress ORIENTATION/CONSCIOUSNESS: Yes awake, Yes oriented to person and Yes oriented to place; not oriented to time Resp: COMMON NORMALS: normal respiratory effort, No retractions, No use of accessory muscles and clear to auscultation bilaterally AUSCULTATION: clear to auscultation bilaterally Cardio: COMMON NORMALS: regular rate, regular rhythm, S1 normal heart sound present and S2 normal heart sound present RATE: regular rate RHYTHM: regular rhythm HEART SOUNDS: S1 normal heart sound present and S2 normal heart sound present GI: COMMON NORMALS: Normal to inspection, nondistended, normoactive bowel sounds present and non-tender Extremity: COMMON NORMALS: no pedal edema Neuro: COMMON NORMALS: CN's II-XII intact bilaterally, moves all extremities, no focal motor deficits and no sensory deficits noted SENSORIUM/ORIENTATION: Yes oriented to person, Yes oriented to place and No oriented to time Psych: COMMON NORMALS: mental status grossly normal Discharge Data Studies Completed and Pending Completed Studies During Hospitalization Category Date Time Status CT chest abdomen pelvis [[place] [id number] Cat Scan 06/11/24 13:20 Completed ] Stat CT head thrombolytic [id number] Stat Cat Scan 06/11/24 08:47 Completed CTA head neck [CT angio headneck* [id number]] Stat Cat Scan 06/11/24 09:26 Completed XR chest 1V portable [id number] Stat Exams 06/11/24 08:47 Completed CV. echo complete* [id number] Stat Ultrasound 06/11/24 13:37 Completed Pending at discharge Category Date Time Status Amylase, Peritoneal Fluid Routine Lab 06/13/24 12:20 Ordered Amylase, Pleural Fluid Routine Lab 06/13/24 12:20 Ordered Albumin Body Fluid Routine Lab 06/13/24 12:20 Ordered Anaerobic Culture Routine Lab 06/13/24 12:20 Ordered Blood Culture Stat Lab 06/11/24 11:09 Results Body Fluid Analysis Routine Lab 06/13/24 12:20 Ordered Body Fluid Culture & GS Routine Lab 06/13/24 12:20 Ordered Body Fluid Specific [place] Routine Lab 06/13/24 12:20 Ordered Cholesterol Body Fluid Routine Lab 06/13/24 12:20 Ordered Cyto Order Verification Routine Lab 06/13/24 12:20 Ordered Fluid Alkaline Phos. Routine Lab 06/13/24 12:20 Ordered Glucose Body Fluid Routine Lab 06/13/24 12:20 Ordered LDH Body Fluid Routine Lab 06/13/24 12:20 Ordered Mycobacteria, Culture w/Fluor Routine Lab 06/13/24 12:20 Ordered Total Protein Body Fluid Routine Lab 06/13/24 12:20 Ordered Triglycerides Body Fluid Routine Lab 06/13/24 12:20 Ordered Uric Acid Body Fluid Routine Lab 06/13/24 12:20 Ordered pH Body Fluid Routine Lab 06/13/24 12:20 Ordered Cytology [PTH] Routine Pth 06/13/24 12:20 Ordered US abdomen lmt fluid [id number] Routine Ultrasound 06/14/24 12:19 Taken Radiology Impressions Chest X-Ray 06/11/24 08:47 IMPRESSION: 1. No acute cardiopulmonary finding. Head CT 06/11/24 08:47 IMPRESSION: 1. No evidence of intracranial hemorrhage or mass effect. 2. Low-attenuation change in the LEFT periventricular white matter although similar to previous 10/31/2023. 3. No acute intracranial findings. Notified Kerry Jeter MD at 06/11/2024 9:08 AM. Notified Kerry Jeter MD at 06/11/2024 9:06 AM. Head/Neck CTA 06/11/24 09:26 IMPRESSION: 1. No evidence of proximal flow-limiting intracranial stenosis. 2. Less than 50% cervical ICA stenosis bilaterally with mild to moderate calcified atheromatous plaque RIGHT greater than LEFT. 3. RIGHT dominant vertebral artery. 4. Mild intracranial atheromatous disease. Chest/Abdomen/Pelvis CT 06/11/24 13:20 IMPRESSION: 1. Tiny amounts of bilateral dependent subsegmental atelectasis. 2. No other acute thoracic findings. 3. Additional details as above. IMPRESSION: 1. Persistent findings of portal hypertension. This includes an increased large amount of free intraperitoneal fluid and fat stranding throughout the abdomen and pelvis. 2. New diffuse thickening of the wall of the gastric fundus and much of the gastric body. Probably gastritis, but upper endoscopy is recommended to exclude malignancy. 3. Additional details as above. Unchanged. Laboratory Results WBC 5.10 10^3/uL (3.29-11.43) 06/14/24 01:59 RBC 3.81 10^6/uL (3.85-5.65) L 06/14/24 01:59 Hgb 11.20 g/dL (11.27-16.99) L 06/14/24 01:59 Hct 33.9 % (37-53) L 06/14/24 01:59 MCV 89.0 fl (82-101) 06/14/24 01:59 MCH 29.4 pg (27-33) 06/14/24 01:59 MCHC 33.0 g/dL (30-55) 06/14/24 01:59 RDW 13.2 % (12.1-15.1) 06/14/24 01:59 Plt Count 29 10^3/cmm (157-399) L 06/14/24 01:59 MPV 11.1 fL (7.4-10.4) H 06/14/24 01:59 Neut % (Auto) 64.8 % 06/14/24 01:59 Lymph % (Auto) 15.9 % 06/14/24 01:59 [place] % (Auto) 11.8 % 06/14/24 01:59 Eos % (Auto) 5.9 % 06/14/24 01:59 Baso % (Auto) 1.0 % 06/14/24 01:59 Neut # (Auto) 3.31 10^3/uL (1.8-7.7) 06/14/24 01:59 Lymph # (Auto) 0.8 10^3/uL (0.8-4.8) 06/14/24 01:59 [place] # (Auto) 0.6 10^3/uL (0.2-0.9) 06/14/24 01:59 Eos # (Auto) 0.3 10^3/uL (0.0-0.8) 06/14/24 01:59 Baso # (Auto) 0.1 10^3/uL (0.0-0.1) 06/14/24 01:59 Nucleated RBC % (auto) 0 % 06/14/24 01:59 Nucleated RBCs # 0.0 /100WBC 06/14/24 01:59 ESR 5 mm/hr (0-10) 06/11/24 08:55 PT 16.50 SECONDS (12.1-14.9) H 06/11/24 08:55 INR 1.25 (0.8-1.2) H 06/11/24 08:55 APTT 32.9 SECONDS (23.9-36.7) 06/11/24 08:55 Sodium 138 mmol/L (136-145) 06/14/24 01:59 Potassium 3.7 mmol/L (3.5-5.1) 06/14/24 01:59 Chloride 100 mmol/L (98-107) 06/14/24 01:59 Carbon Dioxide 24 mmol/L (22-29) 06/14/24 01:59 Anion Gap 17.7 (5-19) 06/14/24 01:59 BUN 11 mg/dL (6-20) 06/14/24 01:59 Creatinine 1.4 mg/dL (0.7-1.2) H 06/14/24 01:59 GFR Calculation 52.2 mL/min (90-130) L 06/14/24 01:59 Glucose 175 mg/dL (65-115) H 06/14/24 01:59 POC Glucose 140 mg/dL (70-110) H 06/14/24 06:20 Estimat Average Glucose 177 06/11/24 08:55 Hemoglobin A1c 7.8 % (4.0-6.0) H 06/11/24 08:55 Calculated Osmolality 290 mOsm/kg (285-295) 06/14/24 01:59 Lactic Acid 2.3 mmol/L (0.5-2.2) H 06/11/24 08:55 Lactic Acid (Sepsis) 1.2 mmol/L (0.5-2.2) 06/11/24 11:47 Calcium 9.5 mg/dL (8.5-10.5) 06/14/24 01:59 Phosphorus 1.9 mg/dL (2.5-4.5) L 06/14/24 01:59 Magnesium 1.4 mg/dL (1.7-2.3) L 06/14/24 01:59 Total Bilirubin 1.9 mg/dL (0.15-1.2) H 06/14/24 01:59 AST 33 U/L (0-40) 06/14/24 01:59 ALT 17 U/L (0-41) 06/14/24 01:59 Alkaline Phosphatase 70 U/L (40-130) 06/14/24 01:59 Ammonia 76 umol/L (16-60) H 06/11/24 08:55 Troponin T Baseline 31 ng/L (0-15) H 06/11/24 08:55 Troponin T 120 Minute 26.51 ng/L (0-15) H 06/11/24 10:55 Delta Troponin T -4.49 ABS# (0-10) L 06/11/24 10:55 Troponin T Hi Sens 6Hr 21.00 ng/L (0-15) H 06/11/24 15:21 Troponin T Hi Sens 6Hr Delta -10.00 ng/L (0-12) L 06/11/24 15:21 C-Reactive Protein 3.0 mg/L (0.0-4.9) 06/11/24 08:55 NT-Pro-B Natriuret Pep 50 pg/mL (0-125) 06/11/24 11:04 Total Protein 6.9 g/dL (6.6-8.7) 06/14/24 01:59 Albumin 4.5 g/dL (3.5-5.2) 06/14/24 01:59 Globulin 2.4 g/dL (1.3-4.6) 06/14/24 01:59 Triglycerides 120 mg/dL (0-150) 06/11/24 08:55 Cholesterol 125 mg/dL (0-200) 06/11/24 08:55 LDL Cholesterol, Calc 79 mg/dL (50-129) 06/11/24 08:55 HDL Cholesterol 22 mg/dL (60-100) L 06/11/24 08:55 LDL/HDL Ratio 3.59 RATIO (0.00-3.22) H 06/11/24 08:55 Cholesterol/HDL Ratio 5.68 mg/dL (1.0-5.00) H 06/11/24 08:55 Procalcitonin 0.10 ng/mL (0-0.5) 06/11/24 08:55 TSH 3.86 uIU/mL (0.27-4.20) 06/11/24 08:55 Urine Color Yellow (Yellow) 06/11/24 11:00 Urine Appearance Clear (CLEAR) 06/11/24 11:00 Urine pH 6.0 (5-7) 06/11/24 11:00 Ur Specific [place] 1.021 (1.005-1.030) 06/11/24 11:00 Urine Protein 1+ (Negative) A 06/11/24 11:00 Urine Glucose (UA) Negative (Normal) 06/11/24 11:00 Urine Ketones Negative (Negative) 06/11/24 11:00 Urine Blood Negative (Negative) 06/11/24 11:00 Urine Nitrate Negative (Negative) 06/11/24 11:00 Urine Bilirubin Negative (Negative) 06/11/24 11:00 Urine Urobilinogen 1.0 mg/dL (Negative) 06/11/24 11:00 Ur Leukocyte Esterase Negative (Negative) 06/11/24 11:00 Urine RBC 0-2 /hpf (0-2) 06/11/24 11:00 Urine WBC 0-5 /hpf (0-5) 06/11/24 11:00 Ur Squamous Epith Cells 0-5 /hpf (0-5) 06/11/24 11:00 Amorphous Sediment Not Reportable 06/11/24 11:00 Urine Bacteria None seen /hpf (NONE) 06/11/24 11:00 Hyaline Casts 15-25 /lpf H 06/11/24 11:00 Fine Granular Casts 0-4 /lpf H 06/11/24 11:00 Coarse Granular Casts 0-4 /lpf H 06/11/24 11:00 Urine Opiates Screen Negative ng/mL (Negative) 06/11/24 11:00 Ur Barbiturates Screen Negative ng/mL (Negative) 06/11/24 11:00 Ur Phencyclidine Scrn Negative ng/mL (Negative) 06/11/24 11:00 Ur Amphetamines Screen Negative ng/mL (Negative) 06/11/24 11:00 U Benzodiazepines Scrn Negative ng/mL (Negative) 06/11/24 11:00 Urine Cocaine Screen Negative ng/mL (Negative) 06/11/24 11:00 U Marijuana (THC) Screen Negative ng/mL (Negative) 06/11/24 11:00 Adenovirus (PCR) Not detected (NOT DETECT) 06/11/24 17:18 C. pneumoniae DNA (PCR) Not detected (NOT DETECT) 06/11/24 17:18 Coronavirus 229E (PCR) Not detected (NOT DETECT) 06/11/24 17:18 Human Metapneumovir PCR Not detected (NOT DETECT) 06/11/24 17:18 Influenza A (H1) PCR Not detected (NOT DETECT) 06/11/24 17:18 Influ A (H1/09) PCR Not detected (NOT DETECT) 06/11/24 17:18 Influenza A (H3) PCR Not detected (NOT DETECT) 06/11/24 17:18 Influenza Type A (PCR) Not detected (NOT DETECT) 06/11/24 17:18 Influenza Type B (PCR) Not detected (NOT DETECT) 06/11/24 17:18 M. pneumoniae (PCR) Not detected (NOT DETECT) 06/11/24 17:18 Parainfluenza 1 (PCR) Not detected (NOT DETECT) 06/11/24 17:18 Parainfluenza 2 (PCR) Not detected (NOT DETECT) 06/11/24 17:18 Parainfluenza 3 (PCR) Not detected (NOT DETECT) 06/11/24 17:18 Parainfluenza 4 (PCR) Not detected (NOT DETECT) 06/11/24 17:18 RSV Type A (PCR) Not detected (NOT DETECT) 06/11/24 17:18 RSV Type B (PCR) Not detected (NOT DETECT) 06/11/24 17:18 Entero/Rhino (PCR) Not detected (NOT DETECT) 06/11/24 17:18 SARS-CoV-2 (PCR) Not detected (NOT DETECT) 06/11/24 17:18 Vitals Last Vital Signs Temp 98.4 F 06/14/24 11:33 Pulse 79 06/14/24 11:33 Resp 12 06/14/24 11:33 BP 157/96 06/14/24 11:33 Pulse Ox 95 06/14/24 11:33 O2 Del Method Room Air 06/14/24 11:33 O2 Flow Rate 2 06/12/24 04:00 Discharge Plan Discharge Patient Disposition: Home Condition: Stable Prescriptions: New sucralfate [Carafate] 1 gram tablet 1 g PO BID 28 Days Qty: 56 0RF atorvastatin 20 mg tablet 40 mg PO QPM 30 Days Qty: 60 0RF lactulose 20 gram/30 mL Solution 10 g PO BID 30 Days Qty: 900 0RF ciprofloxacin HCl 250 mg tablet 250 mg PO BID 5 Days Qty: 10 0RF Continued nitroglycerin 0.4 mg tablet, sublingual 0.4 mg SUBLINGUAL Q5M PRN (Reason: chest pain) 30 Days Qty: 30 3RF Rx Instructions: until response; do not exceed 3 doses per episode aspirin 81 mg tablet,chewable 81 mg PO DAILY@0700 Qty: 90 3RF acetaminophen [Tylenol Arthritis Pain] 650 mg tablet extended release 1,300 mg PO Q8H PRN (Reason: pain) bacitracin 500 unit/gram ointment 1 applic topical DAILY Qty: 14 0RF methocarbamol 750 mg tablet 750 mg PO TID PRN (Reason: back pain) Qty: 15 0RF levothyroxine 150 mcg tablet 150 mcg PO DAILY Rx Instructions: TAKE 1 TABLET BY MOUTH EVERY DAY metoprolol tartrate 50 mg Tablet 50 mg PO DAILY calcium carbonate-vitamin D3 [Calcium 600 + D(3)] 600 mg-10 mcg (400 unit) Tablet 1 tab PO DAILY levetiracetam 750 mg tablet 750 mg PO BID Rx Instructions: TAKE ONE TABLET BY MOUTH TWICE DAILY lisinopril 20 mg Tablet 20 mg PO DAILY Changed insulin glargine [Lantus U-100 Insulin] 100 unit/mL solution 15 unit SUBCUT DAILY Qty: 10 0RF pantoprazole 40 mg Tablet,Delayed Release (Dr/Ec) 40 mg PO Q12H 30 Days Qty: 60 0RF Held allopurinol 100 mg tablet 100 mg PO DAILY PRN (Reason: GOUT) Hold Instructions: Resume on 07/05/24. hold due thrombocytopenia Plavix 75 mg tablet 75 mg PO DAILY@0700 Qty: 90 3RF Hold Instructions: Resume on 06/28/24. due to thrombocytopenia Rx Instructions: last filled jan 2022 Discontinued diclofenac sodium [Voltaren Arthritis Pain] 1 % gel 4 g topical QID PRN (Reason: Pain) celecoxib 100 mg capsule 100 mg PO BID Qty: 20 0RF Discharge Orders: Discharge Order (Routine); Ordered 06/14/24 Ordered By: Kai New Referrals: Andrea Hernandez MD [Physician] - 2 weeks Dorita Flaherty FNP [Primary Care Provider] - Miguelina Prakash MD [Hospitalist] - 1 week (theombocytpenia) Discharge Diet: Cardiac Discharge Activity: Resume usual activity Patient Instructions: Ciprofloxacin (By mouth) (Cipro), Sucralfate (By mouth) (Carafate), Lactulose (By mouth) (Konstuloz, Enuloz, Generlac, Kristaloz, Laktuloz), Gastritis (DC), Cirrhosis of the Liver (DC), Acute Kidney Injury (DC), Thrombocytopenia (DC), Opioid Safety Activity Restrictions/Additional Instructions: - 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 For your thrombocytopenia please follow-up with hematology in 1 week ? For your TIA please follow-up with neurology Discharge Attestations Time Spent in Discharge Care*: greater than 30 min Quality Metrics Clinical Quality Measures [ No reported AMI, CVA or VTE this stay] Coding Level of Care Code 41824 Total time (in minutes) for Discharge: 45 Diagnoses Type 2 diabetes mellitus with hyperglycemia, without long-term current use of insulin E11.65 Diabetes mellitus continuous churn buttermaker insulin use: without continuous churn buttermaker use Diabetes mellitus complication status: with hyperglycemia Thrombocytopenia D69.6 Cirrhosis of liver with ascites K74.60; R18.8 Acute hypotension I95.9 Altered mental status R41.82 Acute kidney injury N17.9 NSTEMI (non-ST elevated myocardial infarction) I21.4 SBP (spontaneous bacterial peritonitis) K65.2 Gastritis K29.70
[2024-06-14 12:03] LABS: Glucose Point of Care 226 mg/dL (70-110)
[2024-06-14] MEDS: insulin lispro 100 unit/1 mL SUBCUT (12:13)
--- NOTE | 2024-06-14 12:19 | US_ITS ---
WS: [id number] Ultrasound abdomen limited Indication: Paracentesis Technique: Four-quadrant ultrasound Findings: Insufficient fluid for paracentesis at this time US/US abdomen lmt fluid [id number] Impression: See above
--- NOTE | 2024-06-14 13:45 | PC.NURSE ---
discharge instructions given and explained.pt verb understanding of instructions.discharged at this time.[facility] to transport.
== END 2024-06-14 13:46 | disposition intermediate care facility (04) | DRG 65 ==
LOC: ER 19:00 → ICU 21:31 → CSU 06-13 03:48
PROVIDERS: Admitting Provider Family Medicine; Emergency Provider Emergency Medicine; PCP Nurse Practitioner Family; Visit Provider Family Medicine
DX: I63.81 Other cerebral infarction due to occlusion or stenosis of small artery (principal); N17.9 Acute kidney failure, unspecified; R18.8 Other ascites; R47.1 Dysarthria and anarthria; E11.65 Type 2 diabetes mellitus with hyperglycemia; D69.6 Thrombocytopenia, unspecified; K74.60 Unspecified cirrhosis of liver; I95.9 Hypotension, unspecified; I25.10 Atherosclerotic heart disease of native coronary artery without angina pectoris; Z95.5 Presence of coronary angioplasty implant and graft; I10 Essential (primary) hypertension; E78.5 Hyperlipidemia, unspecified; G40.909 Epilepsy, unspecified, not intractable, without status epilepticus; K76.0 Fatty (change of) liver, not elsewhere classified; E03.9 Hypothyroidism, unspecified
CPT/HCPCS: 36415; 36416; 49083; 70450; 70496; 70498; 71045; 71250; 74176; 76705; 80053; 80061; 80306; 81001; 82140; 82962; 83036; 83605; 83735; 83880; 84100; 84145; 84443; 84484; 85025; 85610; 85651; 85730; 86140; 87040; 87486; 87581; 87633; 92507; 92523; 92526; 92610; 93005; 93306; 94664; 96365; 96366; 96372; 96375; 96376; 99285; J1100; J1650; J1815; J2270; J2470; J2543; J3370; J3475; J7030; J7050; P9046

== ENCOUNTER → 2024-06-16 15:23 | Outpatient (BNVA) | payer MEDICAID, SELFPAY | PROVIDERS: PCP Nurse Practitioner Family; Visit Provider Internal Medicine Cardiovascular Disease | DX: I25.119 Atherosclerotic heart disease of native coronary artery with unspecified angina pectoris (principal); E78.5 Hyperlipidemia, unspecified; K74.60 Unspecified cirrhosis of liver; F17.200 Nicotine dependence, unspecified, uncomplicated; I12.9 Hypertensive chronic kidney disease with stage 1 through stage 4 chronic kidney disease, or unspecified chronic kidney disease; N18.9 Chronic kidney disease, unspecified; E11.22 Type 2 diabetes mellitus with diabetic chronic kidney disease; Z79.4 Long term (current) use of insulin | CPT/HCPCS: 99214 ==

== ENCOUNTER 2024-06-19 15:56 | Inpatient (IN) | payer MEDICAID, SELFPAY ==
[2024-06-19] VITALS (9 sets, daily range): BP systolic 120–159; BP diastolic 76–98; PULSE 66–75; RESP 14–18; TEMP 36.9–37; O2SAT 95–100; BMI 30.5
--- NOTE | 2024-06-19 16:01 | ECG_ITS ---
[facility] Test Date: 2024-06-19 Pat Name: Alonso Golden Department: Room: Gender: Male Estimator And Drafter: : 1965 Requested By: Javier Valenzuela Order Number: [id number] Mariaa MD: HENRIK STANLEY Measurements Intervals [place] Rate: 66 P: 36 ME: 168 QRS: -33 QRSD: 93 T: 58 QT: 403 QTc: 424 Interpretive Statements SINUS RHYTHM LEFT AXIS DEVIATION [QRS AXIS < -30] SEPTAL MYOCARDIAL INFARCTION , OF INDETERMINATE AGE [40+ ms Q WAVE IN V1/V2] Compared to ECG 06/11/2024 15:21:15 Myocardial infarct finding now present Sinus bradycardia no longer present Electronically Signed On 06-20-2024 20:57:35 GEAR ROLLER by HENRIK STANLEY [email or web address]
--- NOTE | 2024-06-19 16:05 | XRR_ITS ---
PROCEDURE INFORMATION: Exam: XR Chest Exam date and time: 06/19/2024 4:07 PM Age: 59 years old Clinical indication: Chest pressure; Chest pain TECHNIQUE: Imaging protocol: Radiologic exam of the chest. Views: 1 view. COMPARISON: [place] [id number] 06/11/2024 3:02 PM FINDINGS: Lungs: Unremarkable. No consolidation. Pleural spaces: Unremarkable. No pleural effusion. No pneumothorax. Heart/Mediastinum: Unremarkable. No cardiomegaly. Bones/joints: Unremarkable. Soft tissues: Retained foreign body in the right lower chest wall. XR/XR chest 1V portable [id number] IMPRESSION: As above.
--- NOTE | 2024-06-19 16:08 | W.ED.CHESTPA ---
HPI - Chest Pain General: Chief Complaint: Chest Pain Stated Complaint: chest pain Time Seen by Provider: 06/19/24 15:57 History of Present Illness: 59-year-old male presents with chest pain that started about 3 PM. He did take 324 of aspirin via EMS and nitro. He has very minimal relief from the nitro. He reports that he was told by his side show entertainer that if he develops chest pain to come to the ER so that he can be evaluated by the side show entertainer. Patient was just recently admitted in the hospital and discharged. He did have a follow-up with a side show entertainer on 06/16/2024. Associated symptoms: Deny abdominal pain, fever(s), nausea or vomiting Related Data Home Medications ?Medication ?Instructions ?Recorded ?Confirmed allopurinol 100 mg tablet 100 mg PO DAILY PRN GOUT 12/13/20 06/19/24 Held on 06/14/24. Instructions: Resume on 07/05/24. hold due thrombocytopenia acetaminophen 650 mg 1,300 mg PO Q8H PRN pain 07/07/23 06/19/24 tablet,extended release (Tylenol Arthritis Pain) levothyroxine 150 mcg tablet 150 mcg PO DAILY 02/18/24 06/19/24 calcium 600 mg (as 1 tab PO DAILY 05/29/24 06/19/24 carbonate)-vitamin D3 10 mcg (400 unit) tablet (Calcium 600 + D(3)) levetiracetam 750 mg tablet 750 mg PO BID 05/29/24 06/19/24 metoprolol tartrate 50 mg tablet 50 mg PO DAILY 05/29/24 06/19/24 lisinopril 20 mg tablet 20 mg PO DAILY 06/11/24 06/19/24 Previous Rx's ?Medication ?Instructions ?Recorded methocarbamol 750 mg tablet 750 mg PO TID PRN back pain #15 04/14/23 tabs aspirin 81 mg chewable tablet 81 mg PO DAILY@0700 #90 tabs 08/01/23 clopidogrel 75 mg tablet (Plavix) 75 mg PO DAILY@0700 #90 tabs 08/01/23 Held on 06/14/24. Instructions: Resume on 06/28/24. due to thrombocytopenia nitroglycerin 0.4 mg sublingual 0.4 mg sublingual Q5M PRN chest 08/01/23 tablet pain 30 days #30 tabs bacitracin 500 unit/gram topical 1 applic topical DAILY #14 grams 09/25/23 ointment atorvastatin 20 mg tablet 40 mg (2 x 20 mg) PO QPM 30 days 06/14/24 #60 tabs insulin glargine 100 unit/mL 15 unit (0.15 mL) SUBCUT DAILY #10 06/14/24 subcutaneous solution (Lantus mL U-100 Insulin) lactulose 20 gram/30 mL oral 10 g (15 mL) PO BID 30 days #900 mL 06/14/24 solution pantoprazole 40 mg tablet,delayed 40 mg PO Q12H 30 days #60 tabs 06/14/24 release sucralfate 1 gram tablet (Carafate) 1 g PO BID 4 weeks #56 tabs 06/14/24 isosorbide mononitrate 30 mg 30 mg PO DAILY #90 tabs 06/16/24 tablet,extended release 24 hr Allergies Allergy/AdvReac Type Severity Reaction Status Date / Time cephalexin (From Keflex) Allergy Unknown Verified 06/16/24 15:53 Cephalosporins Allergy hives Verified 06/16/24 15:53 Review of Systems Const: Denies: fever(s) or chills Card: Reports: chest pain GI: Denies: abdominal pain, nausea or vomiting : Denies: flank pain or difficulty urinating Neuro: Denies: headache(s) PFSH ED PFSH: Medical History Acute kidney injury Coronary artery disease Chronic low back pain Dyslipidemia Benign essential hypertension with target blood pressure below 140/90 Type 2 diabetes mellitus Atypical chest pain Epilepsy Obesity Glucose intolerance Smoker Hypothyroidism Surgical History History of PTCA H/O heart artery stent 07/11/2020-Cardiac stent placement mid LAD H/O umbilical hernia repair History of appendectomy Family History Father , at age 74 Family history of premature coronary artery disease Had a myocardial infarction in his 40s. Diabetes CAD (coronary artery disease) Chronic kidney disease (CKD) Stroke Brother Family history of premature coronary artery disease CAD (coronary artery disease) Had [place] in the 50s Diabetes Stroke Grandmother CAD (coronary artery disease) Diabetes Grandfather CAD (coronary artery disease) Mother , at age 84 CAD (coronary artery disease) Cancer Diabetes COVID-19 Family/Other Lung disease Denies family history of Clotting disorder Dementia Suicide Anesthesia complication Bleeding disorder Social History Smoking and tobacco/nicotine status: current every day tobacco/nicotine user Alcohol intake: current Alcohol intake frequency: holidays/special occasions only Substance/Drug Use: never Household members: spouse Housing: House Marital status: Current occupational status: disabled Physical Exam Const: COMMON NORMALS: no acute distress and patient oriented x3 Resp: COMMON NORMALS: normal respiratory effort, No retractions, No use of accessory muscles and clear to auscultation bilaterally AUSCULTATION: clear to auscultation bilaterally Cardio: COMMON NORMALS: regular rate and regular rhythm RATE: regular rate RHYTHM: regular rhythm GI: INSPECTION: Yes central obesity Extremity: COMMON NORMALS: full ROM and capillary refill normal Neuro: COMMON NORMALS: patient oriented x3 Psych: COMMON NORMALS: mental status grossly normal and Normal thought process present THOUGHT PROCESS: Normal thought process present Course Vital Signs: Vital signs: Vital Signs Temperature 98.4 F 06/19/24 15:57 Pulse Rate 75 06/19/24 18:00 Respiratory Rate 16 06/19/24 18:00 Blood Pressure 120/76 06/19/24 18:00 Pulse Oximetry 100 06/19/24 18:00 Oxygen Delivery Me thod Room Air 06/19/24 18:00 MDM - Chest Pain Medical Decision Making Patient's diagnostic studies were ordered and reviewed interpreted by me. Patient is EKG shows normal sinus rhythm with no acute ST changes or elevation noted. Patient had a negative troponin. Patient's labs otherwise show no significant acute findings. I did discuss with his side show entertainer Dr. Lugo who reviewed his records. At this time he would like to have the patient admitted to the hospitalist for further inpatient monitoring and a stress test likely on Friday. Discussed with patient who was in agreement with admission. Patient to be admitted to Dr. Canada who accepted patient. He was stable upon transfer to the floor. Lab Data 06/19/24 16:24 06/19/24 16:24 Radiology Impressions Chest X-Ray 06/19/24 16:05 IMPRESSION: As above. Laboratory Results WBC 5.07 10^3/uL (3.29-11.43) 06/19/24 16:24 RBC 4.12 10^6/uL (3.85-5.65) 06/19/24 16:24 Hgb 11.80 g/dL (11.27-16.99) 06/19/24 16:24 Hct 35.7 % (37-53) L 06/19/24 16:24 MCV 86.7 fl (82-101) 06/19/24 16:24 MCH 28.6 pg (27-33) 06/19/24 16:24 MCHC 33.1 g/dL (30-55) 06/19/24 16:24 RDW 13.4 % (12.1-15.1) 06/19/24 16:24 Plt Count 78 10^3/cmm (157-399) L 06/19/24 16:24 MPV 11.4 fL (7.4-10.4) H 06/19/24 16:24 Neut % (Auto) 62.3 % 06/19/24 16:24 Lymph % (Auto) 16.4 % 06/19/24 16:24 [place] % (Auto) 11.0 % 06/19/24 16:24 Eos % (Auto) 8.5 % 06/19/24 16:24 Baso % (Auto) 1.2 % 06/19/24 16:24 Neut # (Auto) 3.16 10^3/uL (1.8-7.7) 06/19/24 16:24 Lymph # (Auto) 0.8 10^3/uL (0.8-4.8) 06/19/24 16:24 [place] # (Auto) 0.6 10^3/uL (0.2-0.9) 06/19/24 16:24 Eos # (Auto) 0.4 10^3/uL (0.0-0.8) 06/19/24 16:24 Baso # (Auto) 0.1 10^3/uL (0.0-0.1) 06/19/24 16:24 Nucleated RBC % (auto) 0 % 06/19/24 16:24 Nucleated RBCs # 0.0 /100WBC 06/19/24 16:24 Sodium 140 mmol/L (136-145) 06/19/24 16:24 Potassium 4.0 mmol/L (3.5-5.1) 06/19/24 16:24 Chloride 102 mmol/L (98-107) 06/19/24 16:24 Carbon Dioxide 27 mmol/L (22-29) 06/19/24 16:24 Anion Gap 15.0 (5-19) 06/19/24 16:24 BUN 16 mg/dL (6-20) 06/19/24 16:24 Creatinine 1.0 mg/dL (0.7-1.2) 06/19/24 16:24 GFR Calculation 77.0 mL/min (90-130) L 06/19/24 16:24 Glucose 172 mg/dL (65-115) H 06/19/24 16:24 Calculated Osmolality 295 mOsm/kg (285-295) 06/19/24 16:24 Calcium 9.8 mg/dL (8.5-10.5) 06/19/24 16:24 Total Bilirubin 1.6 mg/dL (0.15-1.2) H 06/19/24 16:24 AST 31 U/L (0-40) 06/19/24 16:24 ALT 26 U/L (0-41) 06/19/24 16:24 Alkaline Phosphatase 93 U/L (40-130) 06/19/24 16:24 Troponin T Baseline 20 ng/L (0-15) H 06/19/24 16:24 Total Protein 7.6 g/dL (6.6-8.7) 06/19/24 16:24 Albumin 4.7 g/dL (3.5-5.2) 06/19/24 16:24 Globulin 2.9 g/dL (1.3-4.6) 06/19/24 16:24 All radiology interpretation(s) finalized by discharge Discharge Plan Discharge Patient Disposition: Admitted As Inpatient Admit Provider: Jess Canada Clinical Impression: Chest pain Qualifiers: Chest pain type: unspecified Qualified Code(s): R07.9 - Chest pain, unspecified Condition: Stable Coding Level of Care Code ED Harnessmaker Apprentice for g Oni
[2024-06-19 16:31] LABS: Basophils # 0.1 10^3/uL (0.0-0.1); Basophils % 1.2 %; Eosinophils # 0.4 10^3/uL (0.0-0.8); Eosinophils % 8.5 %; Hematocrit 35.7 % (37-53); Lymphocytes # 0.8 10^3/uL (0.8-4.8); Lymphocytes % 16.4 %; Mean Corpuscular HGB Conc 33.1 g/dL (30-55); Mean Corpuscular Hemoglobin 28.6 pg (27-33); Mean Corpuscular Volume 86.7 fl (82-101); Mean Platelet Volume 11.4 fL (7.4-10.4); Monocytes # 0.6 10^3/uL (0.2-0.9); Neutrophils # 3.16 10^3/uL (1.8-7.7); Neutrophils % 62.3 %; Nucleated Red Blood Cells % 0 %; Platelet Count 78 10^3/cmm (157-399); Red Blood Count 4.12 10^6/uL (3.85-5.65); Red Cell Distribution Width 13.4 % (12.1-15.1); White Blood Count 5.07 10^3/uL (3.29-11.43)
[2024-06-19 16:49] LABS: Troponin(5th) Baseline 20 ng/L (0-15)
[2024-06-19 16:50] LABS: Alanine Aminotransferase 26 U/L (0-41); Albumin Level 4.7 g/dL (3.5-5.2); Alkaline Phosphatase 93 U/L (40-130); Aspartate Amino Transferase 31 U/L (0-40); Blood Urea Nitrogen 16 mg/dL (6-20); Calcium 9.8 mg/dL (8.5-10.5); Carbon Dioxide 27 mmol/L (22-29); Chloride 102 mmol/L (98-107); Creatinine Clr Calc Pharmacy 95.0419; Globulin 2.9 g/dL (1.3-4.6); Glucose 172 mg/dL (65-115); Osmolality Calculated 295 mOsm/kg (285-295); Sodium 140 mmol/L (136-145); Total Bilirubin 1.6 mg/dL (0.15-1.2); Total Protein 7.6 g/dL (6.6-8.7)
[2024-06-19] MEDS: TRAMadol 50 mg Tablet PO (18:38)
--- NOTE | 2024-06-19 18:41 | PM.HP ---
Providers/Chief Complaint Admitting Physician: Jess Canada MD Primary Care Provider: BUD Head Chief Complaint: chest pain History of Present Illness Alonso Golden is a 59 year old male with past medical history of type 2 diabetes mellitus, history of CAD post PCI in 2016, hypertension, hyperlipidemia history of seizures, liver cirrhosis, who followed up with cardiology recently on 06/16 because of occasional on and off chest pain which is similar to the pain when he had a heart attack specially when he is emotionally stressed. Patient states he was told to come to the ER if he has chest pain again otherwise plan was for an outpatient cardiac stress test which was scheduled for in July. Today patient was feeling stressed while resting he started having retrosternal chest pain radiating to his shoulder hence he came to the ER. He is not currently having any chest pain. He states he has been taking all his medications including aspirin and Plavix regularly. On review he was recently in hospital and discharged on 06/14 when he was worked up for TIA and strokelike symptoms. During that admission he had also developed acute on chronic thrombocytopenia with platelet count going down to 29,000. Review of Systems General: Reports: 10 or more systems reviewed and unremarkable except in HPI and below Const: Denies: fever(s), chills, body aches, change in appetite, change in weight, malaise, night sweats, diaphoresis, change in sleep pattern, daytime sleepiness or snoring Eyes: Denies: change in vision, blurry vision, photophobia, eye discomfort or eye discharge ENMT: Denies: throat pain, enlarged tonsils, hoarseness, mouth pain, oral sores, dry mouth, tinnitus, nasal congestion or post nasal drip Card: Denies: chest pain, palpitations, irregular heart rhythm, edema, swelling of feet/ankles, lightheadedness, syncope, pre-syncope, dyspnea on exertion, orthopnea, leg pain with exertion or acrocyanosis Resp: Denies: dyspnea, productive cough, non-productive cough, wheezing, stridor, pain on inspiration, change in phlegm color, hemoptysis or chest congestion GI: Denies: abdominal pain, nausea, vomiting, hematemesis, coffee ground emesis, dysphagia, heartburn, diarrhea, constipation, bloating, GI cramping, change in bowel habits, pain on defecation, hematochezia or melena : Denies: flank pain, difficulty urinating, dysuria, urinary frequency, urinary urgency, urinary hesitancy, urinary dribbling, difficulty starting urination, change in urine stream, nocturia or hematuria Musc: Denies: neck pain, back pain, extremity pain, joint pain, joint swelling, joint redness, joint stiffness or limited range of motion Neuro: Denies: headache(s), numbness in extremities, weakness in extremities, sensory changes, lack of coordination, difficulty walking, frequent falls, dizziness, vertigo, confusion, Slurred speech present, difficulty communicating thoughts or seizure-like activity Psych: Denies: anxiety, depression, mood swings, panic attacks, hopelessness or irritability Endo: Denies: polyuria, polydipsia, tired all the time, cold intolerance, excessive sweating, flushing or heat intolerance Jose G/Lymph: Denies: easy bruising or easy bleeding All/Imm: Denies: tongue swelling, facial swelling or acute wheezing Medications/Allergies Home Medications ?Medication ?Instructions ?Recorded ?Confirmed ?Last Taken ?Type allopurinol 100 mg tablet 100 mg PO DAILY PRN GOUT 12/13/20 06/19/24 06/11/24 History Held on 06/14/24. Instructions: Resume on 07/05/24. hold due thrombocytopenia methocarbamol 750 mg tablet 750 mg PO TID PRN back pain #15 04/14/23 06/19/24 06/11/24 Rx tabs acetaminophen 650 mg 1,300 mg PO Q8H PRN pain 07/07/23 06/19/24 Unknown History tablet,extended release (Tylenol Arthritis Pain) aspirin 81 mg chewable tablet 81 mg PO DAILY@0700 #90 tabs 08/01/23 06/19/24 06/19/24 Rx clopidogrel 75 mg tablet (Plavix) 75 mg PO DAILY@0700 #90 tabs 08/01/23 06/19/24 06/19/24 Rx Held on 06/14/24. Instructions: Resume on 06/28/24. due to thrombocytopenia nitroglycerin 0.4 mg sublingual 0.4 mg sublingual Q5M PRN chest 08/01/23 06/19/24 Unknown Rx tablet pain 30 days #30 tabs bacitracin 500 unit/gram topical 1 applic topical DAILY #14 grams 09/25/23 06/19/24 06/19/24 Rx ointment levothyroxine 150 mcg tablet 150 mcg PO DAILY 02/18/24 06/19/24 06/19/24 History calcium 600 mg (as 1 tab PO DAILY 05/29/24 06/19/24 06/19/24 History carbonate)-vitamin D3 10 mcg (400 unit) tablet (Calcium 600 + D(3)) levetiracetam 750 mg tablet 750 mg PO BID 05/29/24 06/19/24 06/19/24 History metoprolol tartrate 50 mg tablet 50 mg PO DAILY 05/29/24 06/19/24 06/19/24 History lisinopril 20 mg tablet 20 mg PO DAILY 06/11/24 06/19/24 06/19/24 History atorvastatin 20 mg tablet 40 mg (2 x 20 mg) PO QPM 30 days 06/14/24 06/19/24 Unknown Rx #60 tabs insulin glargine 100 unit/mL 15 unit (0.15 mL) SUBCUT DAILY #10 06/14/24 06/19/24 06/11/24 Rx subcutaneous solution (Lantus mL U-100 Insulin) lactulose 20 gram/30 mL oral 10 g (15 mL) PO BID 30 days #900 mL 06/14/24 06/19/24 Unknown Rx solution pantoprazole 40 mg tablet,delayed 40 mg PO Q12H 30 days #60 tabs 06/14/24 06/19/24 06/19/24 Rx release sucralfate 1 gram tablet (Carafate) 1 g PO BID 4 weeks #56 tabs 06/14/24 06/19/24 Unknown Rx isosorbide mononitrate 30 mg 30 mg PO DAILY #90 tabs 06/16/24 06/19/24 Unknown Rx tablet,extended release 24 hr Allergies Allergy/AdvReac Type Severity Reaction Status Date / Time cephalexin (From Keflex) Allergy Unknown Verified 06/16/24 15:53 Cephalosporins Allergy hives Verified 06/16/24 15:53 PFSH Acute PFSH: Medical History (Updated 06/19/24 @ 18:48 by Sumeet Encinas MD) 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 History of opioid abuse Thrombocytopenia Mild cognitive impairment with memory loss Lacunar stroke Splenomegaly 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 Erectile dysfunction Hepatosplenomegaly Enlarged prostate Acute kidney injury Coronary artery disease Chronic low back pain Dyslipidemia Benign essential hypertension with target blood pressure below 140/90 Type 2 diabetes mellitus Atypical chest pain Epilepsy Obesity Glucose intolerance Smoker Hypothyroidism Surgical History (Updated 06/19/24 @ 18:46 by Sumeet Encinas MD) History of cholecystectomy H/O eye surgery right eye History of PTCA H/O heart artery stent 07/11/2020-Cardiac stent placement mid LAD H/O umbilical hernia repair History of appendectomy Family History Father , at age 74 Family history of premature coronary artery disease Had a myocardial infarction in his 40s. Diabetes CAD (coronary artery disease) Chronic kidney disease (CKD) Stroke Brother Family history of premature coronary artery disease CAD (coronary artery disease) Had NH in the 50s Diabetes Stroke Grandmother CAD (coronary artery disease) Diabetes Grandfather CAD (coronary artery disease) Mother , at age 84 CAD (coronary artery disease) Cancer Diabetes COVID-19 Family/Other Lung disease Denies family history of Clotting disorder Dementia Suicide Anesthesia complication Bleeding disorder Social History Smoking and tobacco/nicotine status: current every day tobacco/nicotine user Alcohol intake: current Alcohol intake frequency: holidays/special occasions only Substance/Drug Use: never Household members: spouse Housing: House Marital status: Current occupational status: disabled Vitals/I&O/Wt Last Vital Signs Temp 98.4 F 06/19/24 15:57 Pulse 75 06/19/24 18:00 Resp 16 06/19/24 18:00 BP 120/76 06/19/24 18:00 Pulse Ox 100 06/19/24 18:00 O2 Del Method Room Air 06/19/24 18:00 06/19/24 06/19/24 06/19/24 06:59 14:59 22:59 Intake Total 0 / 0 Balance 0 / 0 Weight last 48 hrs Weight 96.615 kg Physical Exam Narrative: General: No acute distress, AO x3, HEENT: PERRLA, pupils bilaterally equal and reactive Chest: Normal vesicular breath sounds, no added sounds, equal good air entry bilaterally CVS: S1-S2 regular, no murmurs, no tachycardia, no gallops, no rubs Abdomen: Soft, nontender, no organomegaly, bowel sounds present Neuro: No focal deficits, no facial deformity, AO x3, power 5/5 in all limbs Data 06/19/24 16:24 06/19/24 16:24 A&P Assessment and plan (1) Unstable angina: History of CAD. Post PCI in 2016. Being worked up as an outpatient for cardiac stress test. Cycle troponin. Continue with home dose of aspirin, Plavix, statin, beta-nichole. If troponin cycled are negative will plan for Lexiscan stress test on Friday. N.p.o. after midnight on Friday. If has repeat chest pain will consult cardiology. Had recent echocardiogram on 06/11. No regional wall motion abnormality with a normal EF. (2) Atherosclerotic heart disease of [place] coronary artery with other forms of angina pectoris: (3) H/O heart artery stent: (4) Type 2 diabetes mellitus: Recent A1c of 7.8. Continue with home dose of Lantus. Start insulin sliding scale. Qualifiers: Diabetes mellitus ferry terminal supervisor insulin use: without ferry terminal supervisor use Diabetes mellitus complication status: with hyperglycemia Qualified Code(s): E11.65 - Type 2 diabetes mellitus with hyperglycemia (5) Benign essential hypertension with target blood pressure below 140/90: Goal blood pressure less than 140/90 MAG. Continue with home dose of Imdur, lisinopril, metoprolol. Uptitrate as for goal blood pressure. (6) 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: Monitor LFTs. Has chronic thrombocytopenia. (7) Thrombocytopenia: (8) History of opioid abuse: Complaining of back pain. For now we will start on IV morphine 2 mg every 4 hours as needed. Will need to follow-up as an outpatient with pain management. 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 N.p.o. after midnight on Friday Protonix OPD prophylaxis Heparin 5000 Q12 hourly for DVT prophylaxis. PDMP PDMP Reviewed: Not Reviewed Attestations Medical Necessity Statement*: Admit under observation for further evaluation and management of unstable angina in a patient with history of CAD post PCI, hypertension, hyperlipidemia, type 2 diabetes mellitus with liver cirrhosis Diagnoses Unstable angina I20.0 Atherosclerotic heart disease of [place] coronary artery with other forms of angina pectoris I25.118 H/O heart artery stent Z95.5 Type 2 diabetes mellitus with hyperglycemia, without long-term current use of insulin E11.65 Diabetes mellitus senior care insulin use: without ferry terminal supervisor use Diabetes mellitus complication status: with hyperglycemia Benign essential hypertension with target blood pressure below 140/90 I10 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
[2024-06-19 18:57] LABS: Lactic Sepsis W/Reflex 1.3 mmol/L (0.5-2.2)
[2024-06-19 19:06] LABS: Procalcitonin 0.06 ng/mL (0-0.5)
[2024-06-19 19:15] LABS: Troponin 5 2HR 17.71 ng/L (0-15); Troponin 5 2HR Delta -2.29 ABS# (0-10)
--- NOTE | 2024-06-19 21:16 | ECG_ITS ---
[facility] Test Date: 2024-06-21 Pat Name: Alonso Golden Department: Room: 254 Gender: Male Reproduction Technician: : 1965 Requested By: Sumeet Encinas Order Number: [id number] Mariaa MD: Sjuata Flores M.D. Interpretive Statements Lung unchanged pre/post procedure; Intraprocedure shortess of breath; Symptoms resoled by discharge PROCEDURE: At the baseline, the EKG revealed normal sinus rhythm with normal ST Ts. Minimal left axis deviation. Possible old high lateral OH. Otherwise unremarkable. The baseline heart wa 70 bpm with a blood pressue of 113/60 mm of Hg Lexiscan was infused over a period of 20 seconds. A total of 0.4 milligrams of Lexiscan was infused. The stress phase was continued for a total of 5 minutes. Heart rate at the end of the stress phase was 80 bpm with a blood pressure 129/70 mm of Hg. The EKG at the peak infusion revealed no significant changes. Sestamibi was injected 20 seconds after the Lexiscan infusion. Heart rate at the end of the recovery phase was 64 bpm with a blood pressure of 129/72 mm of Hg. CONCLUSION: 1. No significant EKG changes with the LexiScan infusion 2. No LexiScan induced chest pain or cardiac arrhythmia 3. Normal blood pressure and heart rate response 4. Sestamibi/sestamibi perfusion scan pending; see separate report. Electronically Signed On 06-27-2024 18:34:14 WAFER LINE WORKER by Sujata Flores M.D. [email or web address]
[2024-06-19 22:37] LABS: Glucose Point of Care 176 mg/dL (70-110)
[2024-06-19] MEDS: metoprolol tartrate 50 mg Tablet PO (22:39)
[2024-06-19] MEDS: heparin 5,000 unit/mL INJ 1 mL 5000 UNIT SUBCUT (22:40)
[2024-06-19] MEDS: pantoprazole DR 40 mg Tablet PO (22:40)
[2024-06-19] MEDS: insulin lispro 100 unit/1 mL SUBCUT (22:40)
[2024-06-19] MEDS: morphine 4 mg/mL SDV 1 mL 2 MG IVP (22:54)
--- NOTE | 2024-06-19 23:11 | ECG_ITS ---
[facility] Test Date: 2024-06-19 Pat Name: Alonso Golden Department: Room: 254 Gender: Male Banquet Captain: : 1965 Requested By: Javier Valenzuela Order Number: [id number] Mariaa MD: HENRIK STANLEY Measurements Intervals [place] Rate: 67 P: 36 IN: 170 QRS: -37 QRSD: 104 T: 64 QT: 409 QTc: 433 Interpretive Statements SINUS RHYTHM WITH OCCASIONAL VENTRICULAR PREMATURE COMPLEXES LEFT AXIS DEVIATION [QRS AXIS < -30] PROBABLE LATERAL MYOCARDIAL INFARCTION , PROBABLY OLD [35 ms Q WAVE IN I/aVL/V5/V6] Compared to ECG 06/19/2024 16:01:21 Ventricular premature complex(es) now present Myocardial infarct finding still present Electronically Signed On 06-20-2024 21:08:10 SCHEDULING AGENT by HENIRK STANLEY [email or web address]
[2024-06-19 23:20] LABS: Troponin 5 6HR 21.62 ng/L (0-15); Troponin 5 6HR Delta 1.62 ng/L (0-12)
[2024-06-20] VITALS (15 sets, daily range): BP systolic 121–161; BP diastolic 66–94; PULSE 55–66; RESP 16–18; TEMP 36.6–36.9; O2SAT 93–99
[2024-06-20] MEDS: morphine 4 mg/mL SDV 1 mL 2 MG IVP ×5 (03:15→20:56)
[2024-06-20 05:55] LABS: Basophils # 0.1 10^3/uL (0.0-0.1); Eosinophils # 0.4 10^3/uL (0.0-0.8); Eosinophils % 7.8 %; Hematocrit 33.3 % (37-53); Lymphocytes # 0.9 10^3/uL (0.8-4.8); Lymphocytes % 18.4 %; Mean Corpuscular Hemoglobin 28.6 pg (27-33); Mean Corpuscular Volume 86.7 fl (82-101); Mean Platelet Volume 11.5 fL (7.4-10.4); Monocytes # 0.7 10^3/uL (0.2-0.9); Monocytes % 14.2 %; Neutrophils # 2.88 10^3/uL (1.8-7.7); Neutrophils % 57.8 %; Nucleated Red Blood Cells % 0 %; Platelet Count 63 10^3/cmm (157-399); Red Blood Count 3.84 10^6/uL (3.85-5.65); Red Cell Distribution Width 13.2 % (12.1-15.1); White Blood Count 4.99 10^3/uL (3.29-11.43)
[2024-06-20 06:15] LABS: Glucose Point of Care 166 mg/dL (70-110)
[2024-06-20] MEDS: aspirin 81 mg Chew Tablet PO (06:15)
[2024-06-20] MEDS: levothyroxine 150 mcg Tablet PO (06:15)
[2024-06-20] MEDS: clopidogrel 75 mg Tablet PO (06:15)
[2024-06-20 06:22] LABS: Procalcitonin 0.04 ng/mL (0-0.5)
[2024-06-20 06:23] LABS: Alanine Aminotransferase 24 U/L (0-41); Albumin Level 4.3 g/dL (3.5-5.2); Alkaline Phosphatase 89 U/L (40-130); Aspartate Amino Transferase 31 U/L (0-40); Blood Urea Nitrogen 15 mg/dL (6-20); Calcium 9.6 mg/dL (8.5-10.5); Carbon Dioxide 24 mmol/L (22-29); Chloride 101 mmol/L (98-107); Creatinine Clr Calc Pharmacy 87.3336; Glucose 159 mg/dL (65-115); Magnesium 1.3 mg/dL (1.7-2.3); Osmolality Calculated 290 mOsm/kg (285-295); Phosphorus 2.7 mg/dL (2.5-4.5); Sodium 138 mmol/L (136-145); Total Bilirubin 1.6 mg/dL (0.15-1.2); Total Protein 7.3 g/dL (6.6-8.7)
[2024-06-20 06:24] LABS: Cholesterol 92 mg/dL (0-200); HDL Cholesterol 23 mg/dL (60-100); LDL Cholesterol Calculated 27 mg/dL (50-129); LDL HDL Ratio 1.17 RATIO (0.00-3.22); Triglycerides 211 mg/dL (0-150)
[2024-06-20] MEDS: docusate sodium 100 mg Capsule PO ×2 (08:32→16:52)
[2024-06-20] MEDS: isosorbide mononitrate ER 30 mg Tablet PO (08:32)
[2024-06-20] MEDS: sucralfate 1 gm Tablet PO ×2 (08:32→16:52)
[2024-06-20] MEDS: levETIRAcetam 500 mg Tablet 750 MG PO ×2 (08:32→16:51)
[2024-06-20] MEDS: pantoprazole DR 40 mg Tablet PO ×2 (08:33→20:27)
[2024-06-20] MEDS: heparin 5,000 unit/mL INJ 1 mL 5000 UNIT SUBCUT ×2 (08:33→20:27)
[2024-06-20] MEDS: lisinopril 20 mg Tablet PO (08:33)
[2024-06-20] MEDS: metoprolol tartrate 50 mg Tablet PO (08:34)
[2024-06-20] MEDS: insulin lispro 100 unit/1 mL SUBCUT ×4 (08:34→20:59)
[2024-06-20] MEDS: lactulose oral liq 20 gm/30 mL UDC 10 GM PO ×2 (08:34→16:52)
[2024-06-20] MEDS: insulin glargine 100 units/1 mL 15 UNIT SUBCUT (08:34)
[2024-06-20] MEDS: methocarbamol 750 mg Tablet PO ×2 (08:36→16:51)
[2024-06-20 11:57] LABS: Glucose Point of Care 186 mg/dL (70-110)
--- NOTE | 2024-06-20 14:35 | PM.PN ---
Subjective Subjective: No acute events overnight. Denies any nausea vomiting, headache. No further chest pain during hospitalization. Has remained hemodynamically stable and afebrile on room air. Blood pressure slightly elevated over morning. Vitals/I&O/Wt Last Vital Signs Temp 98.3 F 06/20/24 12:00 Pulse 60 06/20/24 12:00 Resp 17 06/20/24 12:39 BP 126/73 06/20/24 12:00 Pulse Ox 96 06/20/24 12:39 O2 Del Method Room Air 06/20/24 12:00 06/19/24 06/20/24 06/20/24 22:59 06:59 14:59 Intake Total 0 / 0 1200 / 1200 840 / 840 Balance 0 / 0 1200 / 1200 840 / 840 Weight last 48 hrs Weight 98.43 kg Weight 98.838 kg Weight 96.615 kg Physical Exam Narrative: General: No acute distress, AO x3, HEENT: PERRLA, pupils bilaterally equal and reactive Chest: Normal vesicular breath sounds, no added sounds, equal good air entry bilaterally CVS: S1-S2 regular, no murmurs, no tachycardia, no gallops, no rubs Abdomen: Soft, nontender, no organomegaly, bowel sounds present Neuro: No focal deficits, no facial deformity, AO x3, power 5/5 in all limbs Data 06/20/24 05:24 06/20/24 05:24 A&P Assessment and plan (1) Unstable angina: History of CAD. Post PCI in 2016. Being worked up as an outpatient for cardiac stress test. Cycle troponin. Continue with home dose of aspirin, Plavix, statin, beta-nichole. If troponin cycled are negative will plan for Lexiscan stress test on Friday. N.p.o. after midnight on Friday. If has repeat chest pain will consult cardiology. Had recent echocardiogram on 06/11. No regional wall motion abnormality with a normal EF. (2) Atherosclerotic heart disease of [place] coronary artery with other forms of angina pectoris: (3) H/O heart artery stent: (4) Type 2 diabetes mellitus: Recent A1c of 7.8. Continue with home dose of Lantus. Start insulin sliding scale. Qualifiers: Diabetes mellitus motor builder winder insulin use: without motor builder winder use Diabetes mellitus complication status: with hyperglycemia Qualified Code(s): E11.65 - Type 2 diabetes mellitus with hyperglycemia (5) Benign essential hypertension with target blood pressure below 140/90: Goal blood pressure less than 140/90 MAG. Continue with home dose of Imdur, lisinopril, metoprolol. Uptitrate as for goal blood pressure. (6) 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: Monitor LFTs. Has chronic thrombocytopenia. (7) Thrombocytopenia: (8) History of opioid abuse: Complaining of back pain. For now we will start on IV morphine 2 mg every 4 hours as needed. Will need to follow-up as an outpatient with pain management. 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 N.p.o. after midnight on Friday Protonix OPD prophylaxis Heparin 5000 Q12 hourly for DVT prophylaxis. Plan for the day: Blood pressure slightly elevated. Goal blood pressure less than 140/90 mmHg. Increase home dose of lisinopril to 40 mg oral daily. N.p.o. after midnight for Lexiscan stress test. Will consult cardiology if needed accordingly. So far patient has remained chest pain-free. PDMP PDMP Reviewed: Not Reviewed Attestations Medical Necessity Statement*: Requires further hospitalization for management of unstable angina in a patient with history of CAD awaiting cardiac stress test Diagnoses Unstable angina I20.0 Atherosclerotic heart disease of [place] coronary artery with other forms of angina pectoris I25.118 H/O heart artery stent Z95.5 Type 2 diabetes mellitus with hyperglycemia, without long-term current use of insulin E11.65 Diabetes mellitus penitentiary insulin use: without motor builder winder use Diabetes mellitus complication status: with hyperglycemia Benign essential hypertension with target blood pressure below 140/90 I10 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
[2024-06-20] MEDS: atorvastatin 40 mg Tablet PO (16:51)
[2024-06-20 16:59] LABS: Glucose Point of Care 267 mg/dL (70-110)
[2024-06-20 20:56] LABS: Glucose Point of Care 173 mg/dL (70-110)
[2024-06-21] VITALS (7 sets, daily range): BP systolic 125–150; BP diastolic 62–87; PULSE 57–82; RESP 16–19; TEMP 36.4–36.9; O2SAT 95–99
[2024-06-21] MEDS: morphine 4 mg/mL SDV 1 mL 2 MG IVP ×3 (01:06→09:40)
[2024-06-21] MEDS: levothyroxine 150 mcg Tablet PO (05:33)
[2024-06-21] MEDS: aspirin 81 mg Chew Tablet PO (05:33)
[2024-06-21] MEDS: clopidogrel 75 mg Tablet PO (05:33)
[2024-06-21 05:42] LABS: Basophils # 0.1 10^3/uL (0.0-0.1); Basophils % 1.2 %; Eosinophils # 0.4 10^3/uL (0.0-0.8); Hematocrit 36.1 % (37-53); Lymphocytes # 1.1 10^3/uL (0.8-4.8); Mean Corpuscular HGB Conc 32.1 g/dL (30-55); Mean Corpuscular Hemoglobin 28.6 pg (27-33); Mean Corpuscular Volume 89.1 fl (82-101); Mean Platelet Volume 12.1 fL (7.4-10.4); Monocytes # 0.7 10^3/uL (0.2-0.9); Monocytes % 11.1 %; Neutrophils # 3.71 10^3/uL (1.8-7.7); Neutrophils % 62.2 %; Nucleated Red Blood Cells % 0 %; Platelet Count 83 10^3/cmm (157-399); Red Blood Count 4.05 10^6/uL (3.85-5.65); Red Cell Distribution Width 13.2 % (12.1-15.1); White Blood Count 5.96 10^3/uL (3.29-11.43)
[2024-06-21 06:01] LABS: Alanine Aminotransferase 28 U/L (0-41); Albumin Level 4.6 g/dL (3.5-5.2); Alkaline Phosphatase 95 U/L (40-130); Anion Gap 15.1 (5-19); Aspartate Amino Transferase 39 U/L (0-40); Blood Urea Nitrogen 16 mg/dL (6-20); Carbon Dioxide 25 mmol/L (22-29); Chloride 101 mmol/L (98-107); Creatinine Clr Calc Pharmacy 80.0731; Globulin 3.2 g/dL (1.3-4.6); Glomerular Filtration Rate 62.4 mL/min (90-130); Glucose 139 mg/dL (65-115); Magnesium 1.4 mg/dL (1.7-2.3); Osmolality Calculated 287 mOsm/kg (285-295); Phosphorus 2.3 mg/dL (2.5-4.5); Potassium 4.1 mmol/L (3.5-5.1); Sodium 137 mmol/L (136-145); Total Bilirubin 1.4 mg/dL (0.15-1.2); Total Protein 7.8 g/dL (6.6-8.7)
--- NOTE | 2024-06-21 06:08 | PC.NURSE ---
Dr. Dunne spoke with patient this AM at 0600. After speaking with patient, Dr. Dunne told floor nurse at 0607 to not give anymore pain medication.
[2024-06-21] MEDS: regadenoson 0.4 Mg/5 ml Syringe IVP (06:49)
--- NOTE | 2024-06-21 07:23 | P.DS_ITS ---
Discharge Providers Date of Admission: 06/20/24 15:42 Date of Discharge: June 21, 2024 Attending Provider at Admission: Jess Canada MD Attending Provider at Discharge: Christi Dunne MD Primary Care Provider: BUD Head Diagnoses at Discharge Discharge Diagnosis (1) Unstable angina: Status: Acute (2) Atherosclerotic heart disease of [place] coronary artery with other forms of angina pectoris: Status: Acute (3) H/O heart artery stent: Status: Acute Permanent problem details: 07/11/2020-Cardiac stent placement mid LAD (4) Type 2 diabetes mellitus: Status: Acute Qualifiers: Diabetes mellitus complication status: with hyperglycemia Diabetes mellitus intermission coordinator insulin use: without correction use Qualified Code(s): E11.65 - Type 2 diabetes mellitus with hyperglycemia (5) Benign essential hypertension with target blood pressure below 140/90: Status: Acute (6) 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: Status: Acute (7) Thrombocytopenia: Status: Acute (8) History of opioid abuse: Status: Acute (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 He was advised for stress test by Dr. Marion outpatient. Patient was treated for hypertension in the hospital with increased dose of lisinopril, patient keeps asking about opioids he does have history of opioid abuse he complains about back pain and asks for morphine. Remained chest pain-free in the hospital. He has chronic thrombocytopenia which remained stable. Recent echo showed EF of 60%. stress test negative for coronary ischemia Physical Exam Narrative: Patient is awake alert Euvolemic GCS 15 Pleasant and cooperative No active focal deficit S1, S2 Currently on room air Discharge Data Studies Completed and Pending Completed Studies During Hospitalization Category Date Time Status Sestamibi Stress Test Request Routine Exams 06/19/24 21:16 Draft XR chest 1V portable [id number] Stat Exams 06/19/24 16:05 Completed Pending at discharge Category Date Time Status Complete Blood Count w/Auto AM LABS Lab 06/22/24 04:00 Ordered Comprehensive Metabolic Panel AM LABS Lab 06/22/24 04:00 Ordered Magnesium AM LABS Lab 06/22/24 04:00 Ordered Phosphorus AM LABS Lab 06/22/24 04:00 Ordered NM kayleen perf SPECT r/s* [id number] Routine Nuc Med 06/21/24 21:16 Ordered Radiology Impressions Chest X-Ray 06/19/24 16:05 IMPRESSION: As above. Laboratory Results WBC 5.96 10^3/uL (3.29-11.43) 06/21/24 04:59 RBC 4.05 10^6/uL (3.85-5.65) 06/21/24 04:59 Hgb 11.60 g/dL (11.27-16.99) 06/21/24 04:59 Hct 36.1 % (37-53) L 06/21/24 04:59 MCV 89.1 fl (82-101) 06/21/24 04:59 MCH 28.6 pg (27-33) 06/21/24 04:59 MCHC 32.1 g/dL (30-55) 06/21/24 04:59 RDW 13.2 % (12.1-15.1) 06/21/24 04:59 Plt Count 83 10^3/cmm (157-399) L D 06/21/24 04:59 MPV 12.1 fL (7.4-10.4) H 06/21/24 04:59 Neut % (Auto) 62.2 % 06/21/24 04:59 Lymph % (Auto) 19.0 % 06/21/24 04:59 Cavalier % (Auto) 11.1 % 06/21/24 04:59 Eos % (Auto) 6.0 % 06/21/24 04:59 Baso % (Auto) 1.2 % 06/21/24 04:59 Neut # (Auto) 3.71 10^3/uL (1.8-7.7) 06/21/24 04:59 Lymph # (Auto) 1.1 10^3/uL (0.8-4.8) 06/21/24 04:59 [place]alier # (Auto) 0.7 10^3/uL (0.2-0.9) 06/21/24 04:59 Eos # (Auto) 0.4 10^3/uL (0.0-0.8) 06/21/24 04:59 Baso # (Auto) 0.1 10^3/uL (0.0-0.1) 06/21/24 04:59 Nucleated RBC % (auto) 0 % 06/21/24 04:59 Nucleated RBCs # 0.0 /100WBC 06/21/24 04:59 Sodium 137 mmol/L (136-145) 06/21/24 04:59 Potassium 4.1 mmol/L (3.5-5.1) 06/21/24 04:59 Chloride 101 mmol/L (98-107) 06/21/24 04:59 Carbon Dioxide 25 mmol/L (22-29) 06/21/24 04:59 Anion Gap 15.1 (5-19) 06/21/24 04:59 BUN 16 mg/dL (6-20) 06/21/24 04:59 Creatinine 1.2 mg/dL (0.7-1.2) 06/21/24 04:59 GFR Calculation 62.4 mL/min (90-130) L 06/21/24 04:59 Glucose 139 mg/dL (65-115) H 06/21/24 04:59 POC Glucose 173 mg/dL (70-110) H 06/20/24 20:51 Calculated Osmolality 287 mOsm/kg (285-295) 06/21/24 04:59 Lactic Acid 1.3 mmol/L (0.5-2.2) 06/19/24 16:24 Calcium 10.0 mg/dL (8.5-10.5) 06/21/24 04:59 Phosphorus 2.3 mg/dL (2.5-4.5) L 06/21/24 04:59 Magnesium 1.4 mg/dL (1.7-2.3) L 06/21/24 04:59 Total Bilirubin 1.4 mg/dL (0.15-1.2) H 06/21/24 04:59 AST 39 U/L (0-40) 06/21/24 04:59 ALT 28 U/L (0-41) 06/21/24 04:59 Alkaline Phosphatase 95 U/L (40-130) 06/21/24 04:59 Troponin T Baseline 20 ng/L (0-15) H 06/19/24 16:24 Troponin T 120 Minute 17.71 ng/L (0-15) H 06/19/24 18:51 Delta Troponin T -2.29 ABS# (0-10) L 06/19/24 18:51 Troponin T Hi Sens 6Hr 21.62 ng/L (0-15) H 06/19/24 22:25 Troponin T Hi Sens 6Hr Delta 1.62 ng/L (0-12) 06/19/24 22:25 Total Protein 7.8 g/dL (6.6-8.7) 06/21/24 04:59 Albumin 4.6 g/dL (3.5-5.2) 06/21/24 04:59 Globulin 3.2 g/dL (1.3-4.6) 06/21/24 04:59 Triglycerides 211 mg/dL (0-150) H 06/20/24 05:24 Cholesterol 92 mg/dL (0-200) 06/20/24 05:24 LDL Cholesterol, Calc 27 mg/dL (50-129) L 06/20/24 05:24 HDL Cholesterol 23 mg/dL (60-100) L 06/20/24 05:24 LDL/HDL Ratio 1.17 RATIO (0.00-3.22) 06/20/24 05:24 Cholesterol/HDL Ratio 4.00 mg/dL (1.0-5.00) 06/20/24 05:24 Procalcitonin 0.04 ng/mL (0-0.5) 06/20/24 05:24 Vitals Last Vital Signs Temp 97.5 F L 06/21/24 04:26 Pulse 82 06/21/24 07:01 Resp 16 06/21/24 05:31 BP 128/62 06/21/24 07:01 Pulse Ox 95 06/21/24 05:31 O2 Del Method Room Air 06/21/24 04:26 Discharge Plan Discharge Patient Disposition: Home Condition: Stable Prescriptions: New magnesium L-threonate 48 mg magnesium (667 mg) capsule 48 mg PO DAILY Qty: 90 0RF Continued allopurinol 100 mg tablet 100 mg PO DAILY PRN (Reason: GOUT) isosorbide mononitrate 30 mg tablet extended release 24 hr 30 mg PO DAILY Qty: 90 3RF Plavix 75 mg tablet 75 mg PO DAILY@0700 Qty: 90 3RF nitroglycerin 0.4 mg tablet, sublingual 0.4 mg SUBLINGUAL Q5M PRN (Reason: chest pain) 30 Days Qty: 30 3RF Rx Instructions: until response; do not exceed 3 doses per episode aspirin 81 mg tablet,chewable 81 mg PO DAILY@0700 Qty: 90 3RF bacitracin 500 unit/gram ointment 1 applic topical DAILY Qty: 14 0RF methocarbamol 750 mg tablet 750 mg PO TID PRN (Reason: back pain) Qty: 15 0RF levothyroxine 150 mcg tablet 150 mcg PO DAILY Rx Instructions: TAKE 1 TABLET BY MOUTH EVERY DAY metoprolol tartrate 50 mg Tablet 50 mg PO DAILY calcium carbonate-vitamin D3 [Calcium 600 + D(3)] 600 mg-10 mcg (400 unit) Tablet 1 tab PO DAILY levetiracetam 750 mg tablet 750 mg PO BID Rx Instructions: TAKE ONE TABLET BY MOUTH TWICE DAILY lactulose 20 gram/30 mL Solution 10 g PO BID 30 Days Qty: 900 0RF insulin glargine [Lantus U-100 Insulin] 100 unit/mL solution 15 unit SUBCUT DAILY Qty: 10 0RF sucralfate [Carafate] 1 gram tablet 1 g PO BID 28 Days Qty: 56 0RF pantoprazole 40 mg Tablet,Delayed Release (Dr/Ec) 40 mg PO Q12H 30 Days Qty: 60 0RF atorvastatin 20 mg tablet 40 mg PO QPM 30 Days Qty: 60 0RF Changed acetaminophen [Tylenol Arthritis Pain] 650 mg tablet extended release 650 mg PO Q8H PRN (Reason: pain) Qty: 30 0RF lisinopril 20 mg Tablet 40 mg PO DAILY Qty: 60 1RF Discharge Orders: Discharge Order (Routine); Ordered 06/21/24 Ordered By: Sawyer Childress Referrals: Dorita Flaherty FNP [Primary Care Provider] - 2 weeks (We have notified your physician's clinic of the need for a follow-up appointment to be scheduled. If you have not heard from them within the next 2 business days, please call them directly. ) Kourtney Judge FNP [Nurse Practitioner] - 06/28/24 8:30 am Discharge Diet: Cardiac and Diabetic Discharge Activity: Increase activity as tolerated Patient Instructions: Lisinopril (By mouth) (Prinivil, Zestril), Magnesium (By mouth), Angina (DC), Coronary Artery Disease (GEN), Opioid Safety Activity Restrictions/Additional Instructions: Follow-up with your primary provider and with cardiology for reassessment of coronary disease. Continue to optimize cardiovascular risk factors including diabetes, hypertension. Seek medical attention in case of any worsening or new concerning symptoms. Work with your primary doctor with regards to referral to pain clinic. 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
[2024-06-21 07:54] LABS: Glucose Point of Care 127 mg/dL (70-110)
[2024-06-21] MEDS: lactulose oral liq 20 gm/30 mL UDC 10 GM PO (09:37)
[2024-06-21] MEDS: lisinopril 20 mg Tablet 40 MG PO (09:38)
[2024-06-21] MEDS: levETIRAcetam 500 mg Tablet 750 MG PO (09:38)
[2024-06-21] MEDS: sucralfate 1 gm Tablet PO (09:38)
[2024-06-21] MEDS: isosorbide mononitrate ER 30 mg Tablet PO (09:39)
[2024-06-21] MEDS: docusate sodium 100 mg Capsule PO (09:39)
[2024-06-21] MEDS: metoprolol tartrate 50 mg Tablet PO (09:39)
[2024-06-21] MEDS: insulin glargine 100 units/1 mL 15 UNIT SUBCUT (09:39)
[2024-06-21] MEDS: pantoprazole DR 40 mg Tablet PO (09:39)
[2024-06-21] MEDS: heparin 5,000 unit/mL INJ 1 mL 5000 UNIT SUBCUT (09:40)
--- NOTE | 2024-06-21 09:54 | PC.CHAP ---
Pastoral Care Encounter/Spiritual Assessment Type of Contact [] Declined art historian visit [] Patient/Family/Request visit [] Outpatient visit [] Follow-up visit [] Physician referral [] Code/Alert [x] Routine visit [] Staff referral [] Actively dying [] Patient sleeping [] Family support [] [] Out of room [] Palliative care [] [] Receiving care in room [] Pre-surgical visit [] Trauma [] Long length of stay [] ICU visit [] Other: Relational/Emotional Strength [] Patient feels connected with others/family/visitors/staff [] Distress [] Loneliness/isolation [] Abandonment Spirituality of Patient [x] Person of Lita [] Attends Yazidi of their Lita [x] Believes in Prayer [] Reads Bible or Mosque materials [] There are Spiritual issues to be addressed Carpenter Helper Interventions [x] Prayer [x] Active listening [] Non-anxious presence [] Spiritual/emotional support [] Crisis/trauma care [] Spiritual counseling [] Bereavement support [] Provided bereavement packet [] Provided Bible/devotional materials [] Provided toy/stuffed animal, coloring book to patient or family member [] Provided Communion [] Anointing/[place] [] Salvation [x] Completed spiritual assessment [] Other: Impact on Illness or Injury [] Angry [] Fearful [] Anxious [] Often cries [] Exhaustion [] Unable to work [] Unable to attend bahai [] Unable to walk/stand [] Unable to read [] Unable to drive [] Unable to eat/drink [] Unable to sleep [] Unable to be with family [] Patient intubated [] Other: Summary Time spent with patient 5 min
[2024-06-21 11:52] LABS: Glucose Point of Care 245 mg/dL (70-110)
[2024-06-21] MEDS: insulin lispro 100 unit/1 mL SUBCUT (12:13)
--- NOTE | 2024-06-21 13:52 | PC.NURSE ---
Discharge instructions given to patient. Patient verbalized understandings. IV catheter removed and catheter intact. Patient did not want his vital signs retaken for discharge. Yuli from case management set up an MTM right, but patient did not want to wait on the floor for ride. Patient went outside to wait on his ride and stated I am not staying any longer.
--- NOTE | 2024-06-21 21:16 | NMCV_ITS ---
NM kayleen perf SPECT r/s* [id number] Alonso Golden Age: 59 Gender: M : 1965 Exam Date: 06/21/2024 06:18 Ordering Phys: Sumeet Encinas MD Technologist: LEONEL Car Exam Location: [facility] Indications: cp STRESS TEST Please see separate stress test report in [facility] for full findings IMAGE PROTOCOL Rest/Stress 1 Lexiscan Day Radiopharmaceutical Dose (mCi) Administration Site Administered by Rest: Tc-99m 10.6 IV Yoli Blum, SURVEYOR GEOPHYSICAL PROSPECTING Sestamibi Stress:Tc-99m 32.4 IV Yoli Jiménezgle, SURVEYOR GEOPHYSICAL PROSPECTING Sestamibi Rest: 21-Jun-2024 60 Discovery 630 Stress: 21-Jun-2024 30 Discovery 630 0.4mg Lexiscan. Images obtained in supine and prone position. SPECT RESULTS Technical Quality: Good Raw Data Analysis: Normal Image Corrections: No attenuation or motion correction applied Summed Stress Score: 0 Summed Rest Score: 0 Summed Difference Score: 0 PERFUSION FINDINGS Fairly uniform myocardial tracer uptake with no significant perfusion abnormalities. FUNCTIONAL RESULTS (calculated via Gated SPECT) Stress Image LV EF (%): 80 Stress EDV (mL):93 TID: 0.88 Stress ESV (mL):19 FUNCTIONAL FINDINGS: Segmental wall motion analysis revealing no gross wall motion abnormalities IMPRESSIONS 1. Uniform myocardial tracer uptake with no significant Perfusion normalities. 2. Normal LV ejection fraction of 80%. 3. LV wall motion analysis revealing no gross wall motion abnormalities. 4. Normal LV volume Low probability for coronary ischemia, based on the above findings Dr Sujata Flores MD FACC (Electronically Signed) Final Date: 21 June 2024 09:39 S
== END 2024-06-21 13:54 | disposition home or self-care (01) | DRG 303 ==
LOC: ER 16:14 → ER IP 17:52 → MEDSURG 21:35
PROVIDERS: Student in an Organized Health Care Education/Training Program; Admitting Provider Student in an Organized Health Care Education/Training Program; Emergency Provider Student in an Organized Health Care Education/Training Program; PCP Nurse Practitioner Family; Visit Provider Internal Medicine
DX: I25.110 Atherosclerotic heart disease of native coronary artery with unstable angina pectoris (principal); K76.6 Portal hypertension; Z95.5 Presence of coronary angioplasty implant and graft; E11.65 Type 2 diabetes mellitus with hyperglycemia; N52.9 Male erectile dysfunction, unspecified; F52.32 Male orgasmic disorder; I10 Essential (primary) hypertension; K74.60 Unspecified cirrhosis of liver; D69.6 Thrombocytopenia, unspecified; F11.11 Opioid abuse, in remission; G40.909 Epilepsy, unspecified, not intractable, without status epilepticus; E78.5 Hyperlipidemia, unspecified; Z79.02 Long term (current) use of antithrombotics/antiplatelets; Z79.82 Long term (current) use of aspirin; Z79.4 Long term (current) use of insulin; G89.29 Other chronic pain; M54.50 Low back pain, unspecified; E66.9 Obesity, unspecified; Z68.31 Body mass index [BMI] 31.0-31.9, adult; F17.200 Nicotine dependence, unspecified, uncomplicated; N40.0 Benign prostatic hyperplasia without lower urinary tract symptoms; Z86.73 Personal history of transient ischemic attack (TIA), and cerebral infarction without residual deficits; G31.84 Mild cognitive impairment of uncertain or unknown etiology; E03.9 Hypothyroidism, unspecified
CPT/HCPCS: 36415; 36416; 71045; 78452; 80053; 80061; 82962; 83605; 83735; 84100; 84145; 84484; 85025; 93005; 93017; 94664; 96372; 96375; 99285; A9500; G0378; J1644; J1815; J2270; J2785

== ENCOUNTER 2024-06-26 20:46 | Emergency (ER) | payer MEDICAID, SELFPAY ==
[2024-06-26 20:47] VITALS: BP 130/89; PULSE 74; RESP 18; TEMP 36.8; O2SAT 98; BMI 29.9
--- NOTE | 2024-06-26 20:47 | ECG_ITS ---
[facility] Test Date: 2024-06-26 Pat Name: Alonso Golden Department: Room: Gender: Male Box Gluer: : 1965 Requested By: Raj Arce Order Number: [id number] Mariaa MD: Sujata Flores M.D. Measurements Intervals [place] Rate: 75 P: 36 [place]: 166 QRS: -48 QRSD: 96 T: 62 QT: 380 QTc: 426 Interpretive Statements SINUS RHYTHM LEFT ANTERIOR FASCICULAR BLOCK [QRS AXIS <= -45, QR IN I, RS IN II] Compared to ECG 06/19/2024 23:11:59 Left anterior fascicular block now present Ventricular premature complex(es) no longer present Left-axis deviation no longer present Myocardial infarct finding no longer present Electronically Signed On 06-27-2024 18:38:04 FOREIGN BROADCAST SPECIALIST by Sujata Flores M.D. [email or web address] [id number]
--- NOTE | 2024-06-26 21:00 | XRR_ITS ---
PROCEDURE INFORMATION: Exam: XR Chest Exam date and time: 06/26/2024 9:07 PM Age: 59 years old Clinical indication: Pain; Chest pressure; Prior surgery; Surgery date: 6+ months; Surgery type: Coronary stent; Additional info: Chest pain TECHNIQUE: Imaging protocol: Radiologic exam of the chest. Views: 1 view. COMPARISON: CR (CHEST, ) 06/19/2024 4:07 PM FINDINGS: Lungs: Unremarkable. No consolidation. Pleural spaces: Unremarkable. No pleural effusion. No pneumothorax. Heart/Mediastinum: Unremarkable. No cardiomegaly. Bones/joints: Unremarkable. XR/XR chest 1V portable [id number] IMPRESSION: No acute findings.
[2024-06-26 21:01] VITALS: BP 143/86; PULSE 84; RESP 16
[2024-06-26] MEDS: nitroglycerin 0.4 mg sublingual Tablet SUBLINGUAL (21:08)
[2024-06-26 21:17] VITALS: BP 105/72; PULSE 82; RESP 16; O2SAT 95
[2024-06-26 21:19] LABS: Basophils # 0.1 10^3/uL (0.0-0.1); Basophils % 1.2 %; Eosinophils # 0.3 10^3/uL (0.0-0.8); Eosinophils % 5.3 %; Hematocrit 37.2 % (37-53); Lymphocytes % 16.4 %; Mean Corpuscular HGB Conc 32.8 g/dL (30-55); Mean Corpuscular Hemoglobin 28.4 pg (27-33); Mean Corpuscular Volume 86.7 fl (82-101); Mean Platelet Volume 11.7 fL (7.4-10.4); Monocytes # 0.5 10^3/uL (0.2-0.9); Monocytes % 8.8 %; Neutrophils # 3.95 10^3/uL (1.8-7.7); Neutrophils % 68.1 %; Nucleated Red Blood Cells % 0 %; Platelet Count 91 10^3/cmm (157-399); Red Blood Count 4.29 10^6/uL (3.85-5.65); Red Cell Distribution Width 13.3 % (12.1-15.1)
[2024-06-26 21:37] LABS: Troponin(5th) Baseline 19 ng/L (0-15)
[2024-06-26 21:43] LABS: Anion Gap 15.9 (5-19); Blood Urea Nitrogen 18 mg/dL (6-20); Calcium 10.1 mg/dL (8.5-10.5); Carbon Dioxide 26 mmol/L (22-29); Chloride 101 mmol/L (98-107); Creatinine Clr Calc Pharmacy 78.4346; Glomerular Filtration Rate 62.4 mL/min (90-130); Glucose 232 mg/dL (65-115); NT Pro B Type Natriuretic Pept < 36 pg/mL (0-125); Osmolality Calculated 297 mOsm/kg (285-295); Potassium 3.9 mmol/L (3.5-5.1); Sodium 139 mmol/L (136-145)
[2024-06-26] MEDS: ketorolac 30 mg/mL INJ 15 MG IVP (22:07)
[2024-06-26 22:09] VITALS: BP 123/82; PULSE 86; RESP 14; O2SAT 99
[2024-06-26 22:17] VITALS: BP 123/82; PULSE 77; RESP 18; O2SAT 99
--- NOTE | 2024-06-26 22:46 | W.ED.CHESTPA ---
HPI - Chest Pain General: Chief Complaint: Chest Pain Stated Complaint: CP Time Seen by Provider: 06/26/24 20:48 History of Present Illness: This patient is a 59-year-old white male who presents to the ER complaining of chest pain and back pain. He states started last night. Describes chest pain as sharp. He has some mild shortness of breath. No nausea or vomiting. Patient states he does a history of coronary artery disease. He states he has 1 stent. He also has a history of chronic back pain. Associated symptoms: Reports dyspnea Related Data Home Medications ?Medication ?Instructions ?Recorded ?Confirmed allopurinol 100 mg tablet 100 mg PO DAILY PRN GOUT 12/13/20 06/19/24 levothyroxine 150 mcg tablet 150 mcg PO DAILY 02/18/24 06/19/24 calcium 600 mg (as 1 tab PO DAILY 05/29/24 06/19/24 carbonate)-vitamin D3 10 mcg (400 unit) tablet (Calcium 600 + D(3)) levetiracetam 750 mg tablet 750 mg PO BID 05/29/24 06/19/24 metoprolol tartrate 50 mg tablet 50 mg PO DAILY 05/29/24 06/19/24 Previous Rx's ?Medication ?Instructions ?Recorded methocarbamol 750 mg tablet 750 mg PO TID PRN back pain #15 04/14/23 tabs aspirin 81 mg chewable tablet 81 mg PO DAILY@0700 #90 tabs 08/01/23 clopidogrel 75 mg tablet (Plavix) 75 mg PO DAILY@0700 #90 tabs 08/01/23 nitroglycerin 0.4 mg sublingual 0.4 mg sublingual Q5M PRN chest 08/01/23 tablet pain 30 days #30 tabs bacitracin 500 unit/gram topical 1 applic topical DAILY #14 grams 09/25/23 ointment atorvastatin 20 mg tablet 40 mg (2 x 20 mg) PO QPM 30 days 06/14/24 #60 tabs insulin glargine 100 unit/mL 15 unit (0.15 mL) SUBCUT DAILY #10 06/14/24 subcutaneous solution (Lantus mL U-100 Insulin) lactulose 20 gram/30 mL oral 10 g (15 mL) PO BID 30 days #900 mL 06/14/24 solution pantoprazole 40 mg tablet,delayed 40 mg PO Q12H 30 days #60 tabs 06/14/24 release sucralfate 1 gram tablet (Carafate) 1 g PO BID 4 weeks #56 tabs 06/14/24 isosorbide mononitrate 30 mg 30 mg PO DAILY #90 tabs 06/16/24 tablet,extended release 24 hr acetaminophen 650 mg 650 mg PO Q8H PRN pain #30 tabs 06/21/24 tablet,extended release (Tylenol Arthritis Pain) lisinopril 20 mg tablet 40 mg (2 x 20 mg) PO DAILY #60 tabs 06/21/24 magnesium L-threonate 48 mg 48 mg PO DAILY #90 caps 06/21/24 magnesium (667 mg) capsule Allergies Allergy/AdvReac Type Severity Reaction Status Date / Time cephalexin (From Keflex) Allergy Unknown Verified 06/16/24 15:53 Cephalosporins Allergy hives Verified 06/16/24 15:53 Review of Systems General: Reports: 10 or more systems reviewed and unremarkable except in HPI and below Card: Reports: chest pain Resp: Reports: dyspnea Musc: Reports: back pain PFSH ED PFSH: Medical History (Updated 06/26/24 @ 21:51 by Raj Arce MD) Unstable angina Atherosclerotic heart disease of [place] coronary artery with other forms of angina pectoris Chest pain 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 History of opioid abuse Thrombocytopenia Mild cognitive impairment with memory loss Lacunar stroke Splenomegaly 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 Erectile dysfunction Hepatosplenomegaly Enlarged prostate Acute kidney injury Coronary artery disease Chronic low back pain Dyslipidemia Benign essential hypertension with target blood pressure below 140/90 Type 2 diabetes mellitus Atypical chest pain Epilepsy Obesity Glucose intolerance Smoker Hypothyroidism Surgical History (Updated 06/22/24 @ 00:00 by DANITA Cervantes) History of cholecystectomy H/O eye surgery right eye History of PTCA H/O heart artery stent 07/11/2020-Cardiac stent placement mid LAD H/O umbilical hernia repair History of appendectomy Family History Father , at age 74 Family history of premature coronary artery disease Had a myocardial infarction in his 40s. Diabetes CAD (coronary artery disease) Chronic kidney disease (CKD) Stroke Brother Family history of premature coronary artery disease CAD (coronary artery disease) Had [place] in the 50s Diabetes Stroke Grandmother CAD (coronary artery disease) Diabetes Grandfather CAD (coronary artery disease) Mother , at age 84 CAD (coronary artery disease) Cancer Diabetes COVID-19 Family/Other Lung disease Denies family history of Clotting disorder Dementia Suicide Anesthesia complication Bleeding disorder Social History Smoking and tobacco/nicotine status: current every day tobacco/nicotine user Alcohol intake: current Alcohol intake frequency: holidays/special occasions only Substance/Drug Use: never Household members: spouse Housing: House Marital status: Current occupational status: disabled Physical Exam Const: COMMON NORMALS: no acute distress, patient oriented x3 and no limitations GENERAL APPEARANCE: cooperative and comfortable HENMT: COMMON NORMALS: normocephalic, atraumatic, Normal nasal mucous membranes and turbinates present, moist oral mucous membranes and oropharynx normal HEAD & SCALP: normal to inspection, normocephalic and atraumatic FACE & SINUS: normal facial exam NOSE: Normal nasal mucous membranes and turbinates present Eye: COMMON NORMALS: Equal, round and reactive pupils present, EOMs intact bilaterally and conjunctivae normal GENERAL EYE: appearance normal, both eyes and all related structures CONJUNCTIVA: Yes conjunctivae normal PUPIL: Yes Equal, round and reactive pupils present Neck/C-Spine: COMMON NORMALS: supple and no JVD Chest: COMMONS NORMALS: normal inspection of the chest Resp: COMMON NORMALS: normal respiratory effort and clear to auscultation bilaterally AUSCULTATION: clear to auscultation bilaterally Cardio: COMMON NORMALS: no JVD, regular rate, regular rhythm, No gallops present (Cardio), No murmurs present (Cardio) and No rub (Cardio) RATE: regular rate RHYTHM: regular rhythm GI: COMMON NORMALS: Normal to inspection, nondistended, normoactive bowel sounds present, Soft to palpation and non-tender AUSCULTATION: Yes normoactive bowel sounds PALPATION: Yes Soft to palpation : COMMON NORMALS: Yes no CVA tenderness BLADDER/KIDNEY EXAM: Yes no CVA tenderness Back/Pelvis: COMMON NORMALS: no CVA tenderness and thoracic and lumbar spine normal to inspection Extremity: COMMON NORMALS: normal to inspection Neuro: COMMON NORMALS: patient oriented x3 and CN's II-XII intact bilaterally Psych: COMMON NORMALS: mental status grossly normal, Normal thought process present and cooperative THOUGHT PROCESS: Normal thought process present Skin: COMMON NORMALS: no rashes or lesions noted, turgor normal and no jaundice GENERAL SKIN EXAM: no rashes or lesions noted and turgor normal Course Vital Signs: Vital signs: Vital Signs Temperature 98.2 F 06/26/24 20:47 Pulse Rate 77 06/26/24 22:17 Respiratory Rate 18 06/26/24 22:17 Blood Pressure 123/82 06/26/24 22:17 Pulse Oximetry 99 06/26/24 22:17 Oxygen Delivery Me thod Room Air 06/26/24 22:09 MDM - Chest Pain Medical Decision Making EKG revealed sinus rhythm with no ST segment abnormalities. Chest x-ray is normal. CBC normal. BMP normal. BNP was less than 36. Troponin 19 comparable to previous baseline. Patient was given aspirin and sublingual nitro. Patient had asked for morphine specifically. I reviewed his chart and it appears he does have a pain specialist and has issues with narcotic abuse. We did give him 15 mg of Toradol IV. Issues tonight do not appear to be cardiac. Recommended he follow-up with his primary care provider and/or certified surgical tech/first assistant next week for recheck. He was discharged in stable condition. Lab Data 06/26/24 21:08 06/26/24 21:08 Radiology Impressions Chest X-Ray 06/26/24 21:00 IMPRESSION: No acute findings. Laboratory Results WBC 5.80 10^3/uL (3.29-11.43) 06/26/24 21:08 RBC 4.29 10^6/uL (3.85-5.65) 06/26/24 21:08 Hgb 12.20 g/dL (11.27-16.99) 06/26/24 21:08 Hct 37.2 % (37-53) 06/26/24 21:08 MCV 86.7 fl (82-101) 06/26/24 21:08 MCH 28.4 pg (27-33) 06/26/24 21:08 MCHC 32.8 g/dL (30-55) 06/26/24 21:08 RDW 13.3 % (12.1-15.1) 06/26/24 21:08 Plt Count 91 10^3/cmm (157-399) L 06/26/24 21:08 MPV 11.7 fL (7.4-10.4) H 06/26/24 21:08 Neut % (Auto) 68.1 % 06/26/24 21:08 Lymph % (Auto) 16.4 % 06/26/24 21:08 [place] % (Auto) 8.8 % 06/26/24 21:08 Eos % (Auto) 5.3 % 06/26/24 21:08 Baso % (Auto) 1.2 % 06/26/24 21:08 Neut # (Auto) 3.95 10^3/uL (1.8-7.7) 06/26/24 21:08 Lymph # (Auto) 1.0 10^3/uL (0.8-4.8) 06/26/24 21:08 [place] # (Auto) 0.5 10^3/uL (0.2-0.9) 06/26/24 21:08 Eos # (Auto) 0.3 10^3/uL (0.0-0.8) 06/26/24 21:08 Baso # (Auto) 0.1 10^3/uL (0.0-0.1) 06/26/24 21:08 Nucleated RBC % (auto) 0 % 06/26/24 21:08 Nucleated RBCs # 0.0 /100WBC 06/26/24 21:08 Sodium 139 mmol/L (136-145) 06/26/24 21:08 Potassium 3.9 mmol/L (3.5-5.1) 06/26/24 21:08 Chloride 101 mmol/L (98-107) 06/26/24 21:08 Carbon Dioxide 26 mmol/L (22-29) 06/26/24 21:08 Anion Gap 15.9 (5-19) 06/26/24 21:08 BUN 18 mg/dL (6-20) 06/26/24 21:08 Creatinine 1.2 mg/dL (0.7-1.2) 06/26/24 21:08 GFR Calculation 62.4 mL/min (90-130) L 06/26/24 21:08 Glucose 232 mg/dL (65-115) H 06/26/24 21:08 Calculated Osmolality 297 mOsm/kg (285-295) H 06/26/24 21:08 Calcium 10.1 mg/dL (8.5-10.5) 06/26/24 21:08 Troponin T Baseline 19 ng/L (0-15) H 06/26/24 21:08 NT-Pro-B Natriuret Pep < 36 pg/mL (0-125) 06/26/24 21:08 All radiology interpretation(s) finalized by discharge Discharge Plan Discharge Patient Disposition: Home Clinical Impression: Chest pain Qualifiers: Chest pain type: unspecified Qualified Code(s): R07.9 - Chest pain, unspecified Chronic pain Qualifiers: Chronic pain type: chronic pain syndrome Qualified Code(s): G89.4 - Chronic pain syndrome Condition: Stable Prescriptions: No Action allopurinol 100 mg tablet 100 mg PO DAILY PRN (Reason: GOUT) isosorbide mononitrate 30 mg tablet extended release 24 hr 30 mg PO DAILY Qty: 90 3RF Plavix 75 mg tablet 75 mg PO DAILY@0700 Qty: 90 3RF nitroglycerin 0.4 mg tablet, sublingual 0.4 mg SUBLINGUAL Q5M PRN (Reason: chest pain) 30 Days Qty: 30 3RF Rx Instructions: until response; do not exceed 3 doses per episode aspirin 81 mg tablet,chewable 81 mg PO DAILY@0700 Qty: 90 3RF bacitracin 500 unit/gram ointment 1 applic topical DAILY Qty: 14 0RF acetaminophen [Tylenol Arthritis Pain] 650 mg tablet extended release 650 mg PO Q8H PRN (Reason: pain) Qty: 30 0RF lisinopril 20 mg Tablet 40 mg PO DAILY Qty: 60 1RF magnesium L-threonate 48 mg magnesium (667 mg) capsule 48 mg PO DAILY Qty: 90 0RF methocarbamol 750 mg tablet 750 mg PO TID PRN (Reason: back pain) Qty: 15 0RF levothyroxine 150 mcg tablet 150 mcg PO DAILY Rx Instructions: TAKE 1 TABLET BY MOUTH EVERY DAY metoprolol tartrate 50 mg Tablet 50 mg PO DAILY calcium carbonate-vitamin D3 [Calcium 600 + D(3)] 600 mg-10 mcg (400 unit) Tablet 1 tab PO DAILY levetiracetam 750 mg tablet 750 mg PO BID Rx Instructions: TAKE ONE TABLET BY MOUTH TWICE DAILY lactulose 20 gram/30 mL Solution 10 g PO BID 30 Days Qty: 900 0RF insulin glargine [Lantus U-100 Insulin] 100 unit/mL solution 15 unit SUBCUT DAILY Qty: 10 0RF sucralfate [Carafate] 1 gram tablet 1 g PO BID 28 Days Qty: 56 0RF pantoprazole 40 mg Tablet,Delayed Release (Dr/Ec) 40 mg PO Q12H 30 Days Qty: 60 0RF atorvastatin 20 mg tablet 40 mg PO QPM 30 Days Qty: 60 0RF Discharge Orders: Discharge ED (Routine); Ordered 06/26/24 Ordered By: Raj Arce Referrals: Dorita Flaherty FNP [Primary Care Provider] - Patient Instructions: Chronic Pain, Chest Pain (DC), Opioid Safety, Pain Management Activity Restrictions/Additional Instructions: Follow-up with your primary care provider for ongoing management of your chronic pain. Follow-up with your certified surgical tech/first assistant regarding the chest pain. Print Language: Portuguese Coding Level of Care Code ED [employer] Frame Builder for Marva Bunn
== END 2024-06-26 22:18 | disposition home or self-care (01) ==
PROVIDERS: Emergency Provider Emergency Medicine; PCP Nurse Practitioner Family
DX: R07.9 Chest pain, unspecified (principal); G89.4 Chronic pain syndrome; Z79.82 Long term (current) use of aspirin; Z79.4 Long term (current) use of insulin; Z72.0 Tobacco use; I25.10 Atherosclerotic heart disease of native coronary artery without angina pectoris; E11.9 Type 2 diabetes mellitus without complications; E78.5 Hyperlipidemia, unspecified
CPT/HCPCS: 36415; 71045; 80048; 83880; 84484; 85025; 93005; 96374; 99285; J1885

== ENCOUNTER 2024-06-30 18:47 | Emergency (ER) | payer MEDICAID, SELFPAY ==
[2024-06-30 18:48] VITALS: BP 125/78; PULSE 67; RESP 18; TEMP 36.6; O2SAT 100; BMI 30.4
--- NOTE | 2024-06-30 18:48 | XRR_ITS ---
PROCEDURE INFORMATION: Exam: XR Chest Exam date and time: 06/30/2024 7:10 PM Age: 59 years old Clinical indication: Chest wall pain; Additional info: Cp TECHNIQUE: Imaging protocol: Radiologic exam of the chest. Views: 1 view. COMPARISON: CR (CHEST, ) 06/26/2024 9:07 PM FINDINGS: Lungs: Unremarkable. No consolidation. Pleural spaces: Unremarkable. No pleural effusion. No pneumothorax. Heart/Mediastinum: Unremarkable. No cardiomegaly. Bones/joints: Unremarkable. XR/XR chest 1V portable [id number] IMPRESSION: No acute findings.
--- NOTE | 2024-06-30 18:54 | ECG_ITS ---
[facility]24[facility]30 Pat Name: Alonso Golden Department: Room: Gender: Male Senior Case Manager: : [id number] Requested By: Kerry Jeter Order Number: [id number] Mariaa MD: Vernon Guillaume M.D. Measurements Intervals [place] Rate: 71 P: 54 DE: 171 QRS: -32 QRSD: 96 T: 12 QT: 403 QTc: 438 Interpretive Statements SINUS RHYTHM LEFT AXIS DEVIATION [QRS AXIS < -30] Compared to ECG 06/26/2024 20:49:09 Left-axis deviation now present Left anterior fascicular block no longer present Electronically Signed On 07-01-2024 17:51:55 FIELD ASSEMBLY SUPERVISOR by Vernon Guillaume M.D. [email or web address]
--- NOTE | 2024-06-30 18:59 | W.ED.CHESTPA ---
HPI - Chest Pain General: Chief Complaint: Chest Pain Stated Complaint: Chest Pain Time Seen by Provider: 06/30/24 18:48 Source: patient and EMS Mode of arrival: EMS Limitations: no limitations History of Present Illness: 59-year-old male well-known to the ER history of chronic pain he states he is having chest pain that started today around 1730. He states pains been a sharp pain. He denies any shortness of breath he denies any vomiting or diarrhea. He denies any worse improving factors. Associated symptoms: Deny abdominal pain, dyspnea, fever(s), nausea or vomiting Related Data Home Medications ?Medication ?Instructions ?Recorded ?Confirmed allopurinol 100 mg tablet 100 mg PO DAILY PRN GOUT 12/13/20 06/19/24 levothyroxine 150 mcg tablet 150 mcg PO DAILY 02/18/24 06/19/24 calcium 600 mg (as 1 tab PO DAILY 05/29/24 06/19/24 carbonate)-vitamin D3 10 mcg (400 unit) tablet (Calcium 600 + D(3)) levetiracetam 750 mg tablet 750 mg PO BID 05/29/24 06/19/24 metoprolol tartrate 50 mg tablet 50 mg PO DAILY 05/29/24 06/19/24 Previous Rx's ?Medication ?Instructions ?Recorded methocarbamol 750 mg tablet 750 mg PO TID PRN back pain #15 04/14/23 tabs aspirin 81 mg chewable tablet 81 mg PO DAILY@0700 #90 tabs 08/01/23 clopidogrel 75 mg tablet (Plavix) 75 mg PO DAILY@0700 #90 tabs 08/01/23 nitroglycerin 0.4 mg sublingual 0.4 mg sublingual Q5M PRN chest 08/01/23 tablet pain 30 days #30 tabs bacitracin 500 unit/gram topical 1 applic topical DAILY #14 grams 09/25/23 ointment atorvastatin 20 mg tablet 40 mg (2 x 20 mg) PO QPM 30 days 06/14/24 #60 tabs insulin glargine 100 unit/mL 15 unit (0.15 mL) SUBCUT DAILY #10 06/14/24 subcutaneous solution (Lantus mL U-100 Insulin) lactulose 20 gram/30 mL oral 10 g (15 mL) PO BID 30 days #900 mL 06/14/24 solution pantoprazole 40 mg tablet,delayed 40 mg PO Q12H 30 days #60 tabs 06/14/24 release sucralfate 1 gram tablet (Carafate) 1 g PO BID 4 weeks #56 tabs 06/14/24 isosorbide mononitrate 30 mg 30 mg PO DAILY #90 tabs 06/16/24 tablet,extended release 24 hr acetaminophen 650 mg 650 mg PO Q8H PRN pain #30 tabs 06/21/24 tablet,extended release (Tylenol Arthritis Pain) lisinopril 20 mg tablet 40 mg (2 x 20 mg) PO DAILY #60 tabs 06/21/24 magnesium L-threonate 48 mg 48 mg PO DAILY #90 caps 06/21/24 magnesium (667 mg) capsule Allergies Allergy/AdvReac Type Severity Reaction Status Date / Time cephalexin (From Keflex) Allergy Unknown Verified 06/30/24 18:56 Cephalosporins Allergy hives Verified 06/30/24 18:56 Review of Systems Const: Denies: fever(s), chills, body aches or change in appetite ENMT: Denies: throat pain or dental pain Card: Reports: chest pain Resp: Denies: dyspnea GI: Denies: abdominal pain, nausea, vomiting or diarrhea Musc: Denies: neck pain or back pain Skin/Breast: Denies: rash Neuro: Denies: headache(s) PFSH ED PFSH: Medical History Unstable angina Atherosclerotic heart disease of [place] coronary artery with other forms of angina pectoris Chest pain 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 History of opioid abuse Thrombocytopenia Mild cognitive impairment with memory loss Lacunar stroke Splenomegaly 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 Erectile dysfunction Hepatosplenomegaly Enlarged prostate Acute kidney injury Coronary artery disease Chronic low back pain Dyslipidemia Benign essential hypertension with target blood pressure below 140/90 Type 2 diabetes mellitus Atypical chest pain Epilepsy Obesity Glucose intolerance Smoker Hypothyroidism Surgical History History of cholecystectomy H/O eye surgery right eye History of PTCA H/O heart artery stent 07/11/2020-Cardiac stent placement mid LAD H/O umbilical hernia repair History of appendectomy Family History Father , at age 74 Family history of premature coronary artery disease Had a myocardial infarction in his 40s. Diabetes CAD (coronary artery disease) Chronic kidney disease (CKD) Stroke Brother Family history of premature coronary artery disease CAD (coronary artery disease) Had [place] in the 50s Diabetes Stroke Grandmother CAD (coronary artery disease) Diabetes Grandfather CAD (coronary artery disease) Mother , at age 84 CAD (coronary artery disease) Cancer Diabetes COVID-19 Family/Other Lung disease Denies family history of Clotting disorder Dementia Suicide Anesthesia complication Bleeding disorder Social History Smoking and tobacco/nicotine status: current every day tobacco/nicotine user Alcohol intake: current Alcohol intake frequency: holidays/special occasions only Substance/Drug Use: never Household members: spouse Housing: House Marital status: Current occupational status: disabled Physical Exam Const: COMMON NORMALS: no acute distress, patient oriented x3 and healthy appearing HENMT: COMMON NORMALS: normocephalic and atraumatic HEAD & SCALP: normocephalic and atraumatic Eye: COMMON NORMALS: conjunctivae normal CONJUNCTIVA: Yes conjunctivae normal Neck/C-Spine: COMMON NORMALS: full ROM and supple Chest: COMMONS NORMALS: normal inspection of the chest and normal palpation of entire chest wall Resp: COMMON NORMALS: normal respiratory effort, No retractions, No use of accessory muscles and clear to auscultation bilaterally AUSCULTATION: clear to auscultation bilaterally Cardio: COMMON NORMALS: regular rate, regular rhythm and No murmurs present (Cardio) RATE: regular rate RHYTHM: regular rhythm GI: COMMON NORMALS: Normal to inspection, nondistended, normoactive bowel sounds present, Soft to palpation, non-tender and no masses PALPATION: Yes Soft to palpation Extremity: COMMON NORMALS: normal to inspection and full ROM Neuro: COMMON NORMALS: patient oriented x3, moves all extremities and no focal motor deficits Psych: COMMON NORMALS: mental status grossly normal, Normal thought process present and cooperative THOUGHT PROCESS: Normal thought process present Skin: COMMON NORMALS: no rashes or lesions noted and no wounds GENERAL SKIN EXAM: no rashes or lesions noted Course Vital Signs: Vital signs: Vital Signs Temperature 97.9 F 06/30/24 18:48 Pulse Rate 62 06/30/24 20:30 Respiratory Rate 18 06/30/24 20:30 Blood Pressure 119/75 06/30/24 20:30 Pulse Oximetry 98 06/30/24 20:30 Oxygen Delivery Me thod Room Air 06/30/24 20:30 MDM - Chest Pain Medical Decision Making Patient presents for chest pain is atypical in nature to her troponin here was negative he has no signs of ACS patient no signs of pulmonary embolism or dissection he stable for discharge follow-up with his business banking sales assistant return if worsening he understands agrees to plan Medical Records I reviewed the patient's medical records. Lab Data I reviewed the patient's lab results. 06/30/24 19:04 06/30/24 19:04 Radiology Impressions Chest X-Ray 06/30/24 18:48 IMPRESSION: No acute findings. Laboratory Results WBC 5.54 10^3/uL (3.29-11.43) 06/30/24 19:04 RBC 3.95 10^6/uL (3.85-5.65) 06/30/24 19:04 Hgb 11.30 g/dL (11.27-16.99) 06/30/24 19:04 Hct 34.4 % (37-53) L 06/30/24 19:04 MCV 87.1 fl (82-101) 06/30/24 19:04 MCH 28.6 pg (27-33) 06/30/24 19: MCHC 32.8 g/dL (30-55) 06/30/24 19:04 RDW 13.3 % (12.1-15.1) 06/30/24 19:04 Plt Count 89 10^3/cmm (157-399) L 06/30/24 19:04 MPV 12.1 fL (7.4-10.4) H 06/30/24 19:04 Neut % (Auto) 67.0 % 06/30/24 19:04 Lymph % (Auto) 17.1 % 06/30/24 19:04 [place] % (Auto) 9.6 % 06/30/24 19:04 Eos % (Auto) 5.2 % 06/30/24 19:04 Baso % (Auto) 0.9 % 06/30/24 19:04 Neut # (Auto) 3.71 10^3/uL (1.8-7.7) 06/30/24 19:04 Lymph # (Auto) 1.0 10^3/uL (0.8-4.8) 06/30/24 19:04 [place] # (Auto) 0.5 10^3/uL (0.2-0.9) 06/30/24 19:04 Eos # (Auto) 0.3 10^3/uL (0.0-0.8) 06/30/24 19:04 Baso # (Auto) 0.1 10^3/uL (0.0-0.1) 06/30/24 19:04 Nucleated RBC % (auto) 0 % 06/30/24 19:04 Nucleated RBCs # 0.0 /100WBC 06/30/24 19:04 PT 16.50 SECONDS (12.1-14.9) H 06/30/24 19:04 INR 1.24 (0.8-1.2) H 06/30/24 19:04 Sodium 141 mmol/L (136-145) 06/30/24 19:04 Potassium 3.9 mmol/L (3.5-5.1) 06/30/24 19:04 Chloride 105 mmol/L (98-107) 06/30/24 19:04 Carbon Dioxide 24 mmol/L (22-29) 06/30/24 19:04 Anion Gap 15.9 (5-19) 06/30/24 19:04 BUN 18 mg/dL (6-20) 06/30/24 19:04 Creatinine 1.1 mg/dL (0.7-1.2) 06/30/24 19:04 GFR Calculation 69.0 mL/min (90-130) L 06/30/24 19:04 Glucose 191 mg/dL (65-115) H 06/30/24 19:04 Calculated Osmolality 299 mOsm/kg (285-295) H 06/30/24 19:04 Calcium 9.2 mg/dL (8.5-10.5) 06/30/24 19:04 Total Bilirubin 1.0 mg/dL (0.15-1.2) 06/30/24 19:04 AST 27 U/L (0-40) 06/30/24 19:04 ALT 23 U/L (0-41) 06/30/24 19:04 Alkaline Phosphatase 98 U/L (40-130) 06/30/24 19:04 Troponin T Baseline 18 ng/L (0-15) H 06/30/24 19:04 Troponin T 120 Minute 16.07 ng/L (0-15) H 06/30/24 20:27 Delta Troponin T -1.93 ABS# (0-10) L 06/30/24 20:27 Total Protein 6.8 g/dL (6.6-8.7) 06/30/24 19:04 Albumin 4.2 g/dL (3.5-5.2) 06/30/24 19:04 Globulin 2.6 g/dL (1.3-4.6) 06/30/24 19:04 Lipase 61 U/L (13-60) H 06/30/24 19:04 All radiology interpretation(s) finalized by discharge EKG Data EKG 1: I personally reviewed and interpreted this EKG as follows: EKG interpretation date: 06/30/24 EKG interpretation time: 18:54 Interpretation: nsr hr [address] elevation qrs 96 [id number] Discharge Plan Discharge Patient Disposition: Home Clinical Impression: Chest pain Qualifiers: Chest pain type: unspecified Qualified Code(s): R07.9 - Chest pain, unspecified Condition: Stable Prescriptions: No Action allopurinol 100 mg tablet 100 mg PO DAILY PRN (Reason: GOUT) isosorbide mononitrate 30 mg tablet extended release 24 hr 30 mg PO DAILY Qty: 90 3RF Plavix 75 mg tablet 75 mg PO DAILY@0700 Qty: 90 3RF nitroglycerin 0.4 mg tablet, sublingual 0.4 mg SUBLINGUAL Q5M PRN (Reason: chest pain) 30 Days Qty: 30 3RF Rx Instructions: until response; do not exceed 3 doses per episode aspirin 81 mg tablet,chewable 81 mg PO DAILY@0700 Qty: 90 3RF bacitracin 500 unit/gram ointment 1 applic topical DAILY Qty: 14 0RF acetaminophen [Tylenol Arthritis Pain] 650 mg tablet extended release 650 mg PO Q8H PRN (Reason: pain) Qty: 30 0RF lisinopril 20 mg Tablet 40 mg PO DAILY Qty: 60 1RF magnesium L-threonate 48 mg magnesium (667 mg) capsule 48 mg PO DAILY Qty: 90 0RF methocarbamol 750 mg tablet 750 mg PO TID PRN (Reason: back pain) Qty: 15 0RF levothyroxine 150 mcg tablet 150 mcg PO DAILY Rx Instructions: TAKE 1 TABLET BY MOUTH EVERY DAY metoprolol tartrate 50 mg Tablet 50 mg PO DAILY calcium carbonate-vitamin D3 [Calcium 600 + D(3)] 600 mg-10 mcg (400 unit) Tablet 1 tab PO DAILY levetiracetam 750 mg tablet 750 mg PO BID Rx Instructions: TAKE ONE TABLET BY MOUTH TWICE DAILY lactulose 20 gram/30 mL Solution 10 g PO BID 30 Days Qty: 900 0RF insulin glargine [Lantus U-100 Insulin] 100 unit/mL solution 15 unit SUBCUT DAILY Qty: 10 0RF sucralfate [Carafate] 1 gram tablet 1 g PO BID 28 Days Qty: 56 0RF pantoprazole 40 mg Tablet,Delayed Release (Dr/Ec) 40 mg PO Q12H 30 Days Qty: 60 0RF atorvastatin 20 mg tablet 40 mg PO QPM 30 Days Qty: 60 0RF Discharge Orders: Discharge ED (Routine); Ordered 06/30/24 Ordered By: Kerry Jeter Referrals: Dorita Flaherty FNP [Primary Care Provider] - 4-7 days Discharge Diet: Advance as tolerated Discharge Activity: Resume usual activity Patient Instructions: Chest Pain (ED) Print Language: Hungarian Coding Level of Care Code ED Trimming [employer] for Marva Bunn
[2024-06-30] MEDS: morphine 4 mg/mL SDV 1 mL IVP (19:14)
[2024-06-30] MEDS: ondansetron 2 mg/ML SDV 2 mL 4 MG IVP (19:14)
[2024-06-30 19:17] LABS: Basophils # 0.1 10^3/uL (0.0-0.1); Basophils % 0.9 %; Eosinophils # 0.3 10^3/uL (0.0-0.8); Eosinophils % 5.2 %; Hematocrit 34.4 % (37-53); Lymphocytes % 17.1 %; Mean Corpuscular HGB Conc 32.8 g/dL (30-55); Mean Corpuscular Hemoglobin 28.6 pg (27-33); Mean Corpuscular Volume 87.1 fl (82-101); Mean Platelet Volume 12.1 fL (7.4-10.4); Monocytes # 0.5 10^3/uL (0.2-0.9); Monocytes % 9.6 %; Neutrophils # 3.71 10^3/uL (1.8-7.7); Nucleated Red Blood Cells % 0 %; Platelet Count 89 10^3/cmm (157-399); Red Blood Count 3.95 10^6/uL (3.85-5.65); Red Cell Distribution Width 13.3 % (12.1-15.1); White Blood Count 5.54 10^3/uL (3.29-11.43)
[2024-06-30 19:33] LABS: INR 1.24 (0.8-1.2)
[2024-06-30 19:39] LABS: Troponin(5th) Baseline 18 ng/L (0-15)
[2024-06-30 19:44] LABS: Alanine Aminotransferase 23 U/L (0-41); Albumin Level 4.2 g/dL (3.5-5.2); Alkaline Phosphatase 98 U/L (40-130); Aspartate Amino Transferase 27 U/L (0-40); Blood Urea Nitrogen 18 mg/dL (6-20); Calcium 9.2 mg/dL (8.5-10.5); Carbon Dioxide 24 mmol/L (22-29); Chloride 105 mmol/L (98-107); Creatinine Clr Calc Pharmacy 86.2118; Globulin 2.6 g/dL (1.3-4.6); Glucose 191 mg/dL (65-115); Lipase 61 U/L (13-60); Osmolality Calculated 299 mOsm/kg (285-295); Sodium 141 mmol/L (136-145); Total Protein 6.8 g/dL (6.6-8.7)
[2024-06-30 19:52] LABS: Anion Gap 15.9 (5-19); Potassium 3.9 mmol/L (3.5-5.1)
[2024-06-30 20:30] VITALS: BP 119/75; PULSE 62; RESP 18; O2SAT 98
[2024-06-30 20:50] LABS: Troponin 5 2HR 16.07 ng/L (0-15)
[2024-06-30 21:01] LABS: Troponin 5 2HR Delta -1.93 ABS# (0-10)
[2024-06-30 21:11] VITALS: BP 125/76; PULSE 68; RESP 16; O2SAT 99
== END 2024-06-30 21:20 | disposition home or self-care (01) ==
PROVIDERS: Emergency Provider Emergency Medicine; PCP Nurse Practitioner Family
DX: R07.9 Chest pain, unspecified (principal); Z79.82 Long term (current) use of aspirin; Z79.4 Long term (current) use of insulin; Z72.0 Tobacco use; E11.9 Type 2 diabetes mellitus without complications; I10 Essential (primary) hypertension; I25.118 Atherosclerotic heart disease of native coronary artery with other forms of angina pectoris
CPT/HCPCS: 36415; 71045; 80053; 83690; 84484; 85025; 85610; 93005; 96374; 96375; 99285; J2270; J2405

== ENCOUNTER → 2024-07-07 13:37 | Outpatient (BNVA) | payer MEDICAID, SELFPAY | PROVIDERS: PCP Nurse Practitioner Family; Referring Provider Nurse Practitioner Family; Visit Provider Specialist | DX: I99.8 Other disorder of circulatory system (principal); G40.309 Generalized idiopathic epilepsy and epileptic syndromes, not intractable, without status epilepticus; F17.210 Nicotine dependence, cigarettes, uncomplicated | CPT/HCPCS: 99214 ==

== ENCOUNTER 2024-07-12 08:04 | Outpatient (CLI) | payer MEDICAID, SELFPAY ==
--- NOTE | 2024-07-12 | ECG_ITS ---
[facility] Test Date: 2024-07-12 Pat Name: Alonso Golden Department: Room: Gender: Male Gag Writer: : 1965 Requested By: Christi Marion Order Number: [id number] Reading MD: CHRISTI MARION Interpretive Statements Lung unchanged pre/post procedure; Intraprocedure shortess of breath; Symptoms resoled by discharge EXERCISE DATA: The patient was exercised by Ed protocol. Baseline heart rate was 60 beats per minute. Baseline blood pressure was 129/83 millimeters of mercury. Target heart rate was 163 beats per minute. Maximum heart rate achieved was 142, which was 87 % of the target heart rate. Maximum blood pressure was 189/83 millimeters of mercury. Total exercise time was 7 minutes 10-seconds. Maximum METs achieved was 10.2, maximum VO2 was 35.7. The reason for ending the test was maximum effort achieved. The patient complained of shortness of breath during the stress test, which then resolved at the end of the test. ELECTROCARDIOGRAM: BASELINE: Showed sinus rhythm, normal axis, interventricular conduction delay, no significant ST-T changes at the baseline noted. EXERCISE: At the peak exercise level, no significant ST-T changes suggestive of ischemia noted. RECOVERY: During the recovery period, heart rate dropped appropriately. No significant ST-T changes in the recovery suggestive of ischemia noted. CONCLUSION: 1. Exercise capacity good 2. Heart rate response was appropriate. 3. Blood pressure response was appropriate. 4. Symptoms not suggestive of ischemia. 5. Electrocardiogram portion of the stress test was not suggestive of ischemia. 6. Nuclear scan will be documented separately. Electronically Signed On 08-22-2024 20:15:23 CDT by CHRISTI MARION [id number]
[2024-07-12 08:15] VITALS: BMI 29.8
--- NOTE | 2024-07-12 08:16 | NMCV_ITS ---
NM kayleen perf SPECT r/s* [id number] Alonso Golden Age: 59 Gender: M : 1965 Exam Date: 07/12/2024 08:16 Ordering Phys: Christi Marion MD ([email or web address]) Technologist: LEONEL Car Exam Location: [facility] Indications: cp STRESS TEST Please see separate stress test report in [facility] for full findings IMAGE PROTOCOL Rest/Stress 1 Exercise Day Radiopharmaceutical Dose (mCi) Administration Site Administered by Rest: Tc-99m 10.5 IV LEONEL Car Sestamibi Stress:Tc-99m 32.4 IV LEONEL Car Sestamibi Rest: 12-Jul-2024 60 Discovery 630 Stress: 12-Jul-2024 15 Discovery 630 Radiopharmaceutical was injected at 85 % maximum heart rate. Images obtained in supine and prone position. SPECT RESULTS Technical Quality: Good Raw Data Analysis: Normal Image Corrections: Patient motion artifact - motion correction applied Summed Stress Score: 0 Summed Rest Score: 0 Summed Difference Score: 0 PERFUSION FINDINGS SPECT images demonstrate homogeneous tracer distribution throughout the myocardium. FUNCTIONAL RESULTS (calculated via Gated SPECT) Stress Image LV EF (%): 73 Stress EDV (mL):91 TID: 0.89 Stress ESV (mL):25 FUNCTIONAL FINDINGS: There is normal left ventricular systolic function. IMPRESSIONS Myocardial perfusion imaging is normal. Christi Marion MD (Electronically Signed) Final Date: 12 July 2024 20:21 S
[2024-07-12 09:42] VITALS: BP 178/67; PULSE 86
== END 2024-07-12 08:05 | disposition home or self-care (01) ==
PROVIDERS: PCP Nurse Practitioner Family; Visit Provider Internal Medicine Cardiovascular Disease
DX: R07.9 Chest pain, unspecified (principal)
CPT/HCPCS: 36415; 78452; 93017; 96374; A9500

== ENCOUNTER 2024-07-12 10:20 | Outpatient (CLI) | payer MEDICAID, SELFPAY ==
--- NOTE | 2024-07-12 12:45 | USCV_ITS ---
Alonso Golden Age: 59 Gender: M : 1965 Exam Date: 07/12/2024 10:17 Ordering Phys: Christi Marion MD ([email or web address]) Technologist: WILFRIDO Exam Location: [facility] [place] Indication: SOB BP: 135 / 80 HR: 70 Rhythm: Sinus Technical Quality: Adequate MEASUREMENTS (Male / Female) Normal Values 2D ECHO LV Diastolic Diameter PLAX 4.3 cm 4.2 - 5.9 / 3.9 - 5.3 cm IVS Diastolic Thickness 1.5 cm 0.6 - 1.0 / 0.6 - 0.9 cm IVS Systolic Thickness 2.1 cm LVPW Diastolic Thickness 1.3 cm 0.6 - 1.0 / 0.6 - 0.9 cm LVPW Systolic Thickness 1.6 cm LVOT Diameter 2.1 cm LV Ejection Fraction 2D Teich 59.1 % LV Ejection Fraction MOD 4C 65.9 % LV Ejection Fraction MOD 2C 70.1 % LV Ejection Fraction 2C AL 74.0 % LA Diameter 3.1 cm RA Systolic Volume 4C AL 19.6 ml RA Systolic Volume 4C MOD 19.0 ml LA Sys Volume AL 43.7 cm cubed LA Sys Volume Index AL 20.0 cm cubed/m squared Aorta at Sinotubular Diameter 3.1 cm IVC Diameter 1.5 cm M-MODE LA Ao Ratio MM 2.4 AV Cusp Separation MM 1.4 cm DOPPLER AV Peak Velocity 115.0 cm/s LVOT Peak Velocity 90.0 cm/s AV Area Cont Eq vti 2.5 cm squared AV Area Cont Eq pk 2.7 cm squared MV Peak Velocity 51.3 cm/s MV Area PHT 2.7 cm squared Mitral E to A Ratio 0.8 TV Peak Velocity 133.5 cm/s TR Peak Velocity 187.0 cm/s TR Peak Gradient 14.0 mmHg TV Peak E Velocity 83.0 cm/s PV Peak Velocity 88.0 cm/s FINDINGS Left Ventricle Left ventricle is normal in size. LV systolic function is normal with EF of 60-65%. No regional wall abnormalities are seen. Moderate left ventricular hypertrophy. Grade 1 diastolic dysfunction. Right Ventricle Normal in size and function Right Atrium Normal in size Left Atrium Normal in size Mitral Valve Structurally normal mitral valve. Mild mitral regurgitation Aortic Valve Structurally normal aortic valve. No significant stenosis or regurgitation. Tricuspid Valve Mild tricuspid regurgitation. Insufficient TR jet to evaluate RVSP Pulmonic Valve Trace pulmonic regurgitation Pericardium Normal Aorta Normal in size IVC Appears to be normal CONCLUSIONS LV systolic function is normal with EF of 60-65% Moderate left ventricular hypertrophy Grade 1 diastolic dysfunction Mild mitral regurgitation Mild tricuspid regurgitation Trace pulmonic regurgitation Compared to prior echocardiogram from 05/2024 no significant changes are seen. Vernon Guillaume MD (Electronically Signed) Final Date: 18 July 2024 10:20 S
== END 2024-07-12 10:21 | disposition home or self-care (01) ==
LOC: RAD 10:20
PROVIDERS: PCP Nurse Practitioner Family; Visit Provider Internal Medicine Cardiovascular Disease
DX: R06.02 Shortness of breath (principal); I50.30 Unspecified diastolic (congestive) heart failure; I34.0 Nonrheumatic mitral (valve) insufficiency; I07.1 Rheumatic tricuspid insufficiency; R93.1 Abnormal findings on diagnostic imaging of heart and coronary circulation
CPT/HCPCS: 93306

== ENCOUNTER → 2024-07-13 15:29 | Outpatient (BNVA) | payer MEDICAID, SELFPAY | PROVIDERS: PCP Nurse Practitioner Family; Visit Provider Nurse Practitioner Family | DX: R07.9 Chest pain, unspecified (principal) | CPT/HCPCS: 93005 ==

== ENCOUNTER 2024-07-13 15:46 | Emergency (ER) | payer MEDICAID, SELFPAY ==
[2024-07-13] VITALS (33 sets, daily range): BP systolic 118–149; BP diastolic 71–85; PULSE 53–61; RESP 8–18; TEMP 36.9; O2SAT 95–100
--- NOTE | 2024-07-13 15:52 | ECG_ITS ---
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 Measurements Intervals [place] Rate: 64 P: 55 [place]: 172 QRS: -20 QRSD: 104 T: 28 QT: 435 QTc: 450 Interpretive Statements SINUS RHYTHM MINIMAL VOLTAGE CRITERIA FOR LVH, CONSIDER NORMAL VARIANT [MEETS CRITERIA IN ONE OF: R(aVL), S(V1), R(V5), R(V5/V6)+S(V1)] Compared to ECG 07/13/2024 15:32:36 Sinus bradycardia no longer present Myocardial infarct finding no longer present Electronically Signed On 07-17-2024 18:11:10 VACUUM TECHNICIAN by Vernon Guillaume M.D. [id number]
--- NOTE | 2024-07-13 15:56 | XRR_ITS ---
PROCEDURE INFORMATION: Exam: XR Chest Exam date and time: 07/13/2024 4:00 PM Age: 59 years old Clinical indication: Pain; Angina pectoris; Prior surgery; Surgery date: 6+ months; Surgery type: Cardiac stent; Additional info: Cp TECHNIQUE: Imaging protocol: Radiologic exam of the chest. Views: 1 view. COMPARISON: CR (CHEST, ) 06/30/2024 7:10 PM FINDINGS: Lungs: Unremarkable. No consolidation. Monitoring leads overlie the chest and abdomen. Pleural spaces: Unremarkable. No pleural effusion. No pneumothorax. Heart/Mediastinum: Unremarkable. No cardiomegaly. Bones/joints: Unremarkable. Other findings: A punctate radiopaque metallic like artifact is seen along the medial aspect of the right lower chest located in the subcutaneous soft tissues as seen on earlier chest CT from 06/11/2024. XR/XR chest 1V portable [id number] IMPRESSION: No acute portable plain film findings.
--- NOTE | 2024-07-13 16:08 | ED_ITS ---
HPI - Chest Pain 2 General: Chief Complaint: Chest Pain Stated Complaint: chest pain Time Seen by Provider: 07/13/24 15:58 Source: patient Mode of arrival: ambulatory Limitations: no limitations History of Present Illness: 59-year-old male who is here chest pain he has been seen here multiple times in the past for chest pain he is up at cardiology clinic having chest pain there and sent him to the ER. States pains been all day today denies any shortness of breath he denies any cough or fever he denies any worse improved factors rates his pain a 5 out of 10. Associated symptoms: Deny abdominal pain, dyspnea, fever(s), nausea or vomiting Related Data Home Medications ?Medication ?Instructions ?Recorded ?Confirmed allopurinol 100 mg tablet 100 mg PO DAILY PRN GOUT 08/3007/13/24 levothyroxine 150 mcg tablet 150 mcg PO DAILY 02/18/24 07/13/24 calcium 600 mg (as 1 tab PO DAILY 05/29/2409/03 carbonate)-vitamin D3 10 mcg (400 unit) tablet (Calcium 600 + D(3)) levetiracetam 750 mg tablet 750 mg PO BID 05/29/2409/03 metoprolol tartrate 50 mg tablet 50 mg PO DAILY 07/13/24 Previous Rx's ?Medication ?Instructions ?Recorded methocarbamol 750 mg tablet 750 mg PO TID PRN back kaden n #15 04/14/23 tabs aspirin 81 mg chewable tablet 81 mg PO DAILY@0700 #90 tabs 08/01/23 clopidogrel 75 mg tablet (Plavix) 75 mg PO DAILY@0700 #90 tabs 08/01/23 nitroglycerin 0.4 mg sublingual 0.4 mg sublingual Q5M PRN chest 08/01/23 tablet pain 30 days #30 tabs bacitracin 500 unit/gram topical 1 applic topical TOVA Y #14 grams 09/25/23 ointment atorvastatin 20 mg tablet 40 mg (2 x 20 mg) PO QPM 30 days 06/14/24 #60 tabs insulin glargine 100 unit/mL 15 unit (0.15 mL) SUBCUT DAILY #10 06/14/24 subcutaneous solution (Lantus mL U-100 Insulin) lactulose 20 gram/30 mL oral 10 g (15 mL) PO BID 30 da ys #900 mL 06/14/24 solution pantoprazole 40 mg tablet,delayed 40 mg PO Q12H 30 day s #60 tabs 06/14/24 release isosorbide mononitrate 30 mg 30 mg PO DAILY #90 tabs 0 06/16/24 tablet,extended release 24 hr acetaminophen 650 mg 650 mg PO Q8H PRN pain #30 t abs 06/21/24 tablet,extended release (Tylenol Arthritis Pain) lisinopril 20 mg tablet 40 mg (2 x 20 mg) PO DAILY # 60 tabs 06/21/24 magnesium L-threonate 48 mg 48 mg PO DAILY #90 caps magnesium (667 mg) capsule Allergies Allergy/AdvReac Type Severity Reaction Status Date / Time cephalexin (From KePrifloat) Allergy Unknown Verified 07/13/24 14:53 Cephalosporins Allergy hives Verified 07/13/24 14:53 Review of Systems 2 Const: Denies: fever(s), chills, body aches or change in appetite ENMT: Denies: throat pain or dental pain Card: Reports: chest pain Resp: Denies: dyspnea GI: Denies: abdominal pain, nausea, vomiting or diarrhea : Denies: dysuria Musc: Denies: neck pain or back pain Skin/Breast: Denies: rash Neuro: Denies: headache(s) PFSH ED 2 PFSH: Medical History Chest pain Unstable angina 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 History of opioid abuse Thrombocytopenia Mild cognitive impairment with memory loss Lacunar stroke Splenomegaly 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 Erectile dysfunction Hepatosplenomegaly Enlarged prostate Acute kidney injury Coronary artery disease Chronic low back pain Dyslipidemia Benign essential hypertension with target blood pressure below 140/90 Type 2 diabetes mellitus Atypical chest pain Epilepsy Obesity Glucose intolerance Smoker Hypothyroidism Surgical History History of cholecystectomy H/O eye surgery right eye History of PTCA H/O heart artery stent 07/11/2020-Cardiac stent placement mid LAD H/O umbilical hernia repair History of appendectomy Family History Father , at age 74 Family history of premature coronary artery disease Had a myocardial infarction in his 40s. Diabetes CAD (coronary artery disease) Chronic kidney disease (CKD) Stroke Brother Family history of premature coronary artery disease CAD (coronary artery disease) Had [place] in the 50s Diabetes Stroke Grandmother CAD (coronary artery disease) Diabetes Grandfather CAD (coronary artery disease) Mother , at age 84 CAD (coronary artery disease) Cancer Diabetes COVID-19 Family/Other Lung disease Denies family history of Clotting disorder Dementia Suicide Anesthesia complication Bleeding disorder Social History Smoking and tobacco/nicotine status: current every day tobacco/nicotine user Alcohol intake: current Alcohol intake frequency: holidays/special occasions only Substance/Drug Use: never Household members: spouse Housing: House Marital status: Current occupational status: disabled Physical Exam 2 Const: COMMON NORMALS: no acute distress, patient oriented x3 and healthy appearing HENMT: COMMON NORMALS: normocephalic and atraumatic HEAD & SCALP: n ormocephalic and atraumatic Eye: COMMON NORMALS: conjunctivae normal CONJUNCTIVA: Yes conjunctivae normal Neck/C-Spine: COMMON NORMALS: full ROM and supple Chest: COMMONS NORMALS: normal inspection of the chest and normal palpation of entire chest wall Resp: COMMON NORMALS: normal respiratory effort, No retractions, No use of accessory muscles and clear to auscultation bilaterally AUSCULTATION: clear to auscultation bilaterally Cardio: COMMON NORMALS: regular rate, regular rhythm and No murmurs present (Cardio) RATE: regular rate RHYTHM: regular rhythm GI: COMMON NORMALS: Normal to inspection, nondistended, normoactive bowel sounds present, Soft to palpation, non-tender and no masses PALPATION: Yes Soft to palpation Extremity: COMMON NORMALS: normal to inspection and full ROM Neuro: COMMON NORMALS: patient oriented x3, moves all extremities and no focal motor deficits Psych: COMMON NORMALS: mental status grossly normal, Normal thought process present and cooperative THOUGHT PROCESS: Normal thought process present Skin: COMMON NORMALS: no rashes or lesions noted and no wounds GENERAL SKIN EXAM: no rashes or lesions noted Course 2 Vital Signs: Vital signs: Vital Signs Temperature 98.5 F 07/13/24 15:52 Pulse Rate 56 L 07/13/24 18:25 Respiratory Rate 12 07/13/24 18:25 Blood Pressure 130/80 07/13/24 18:25 Pulse Oximetry 99 07/13/24 18:25 Oxygen Delivery Me thod Room Air 07/13/24 18:05 MDM - Chest Pain Medical Decision Making Patient presents for chest pains atypical in nature initial repeat troponins here are negative he has no signs of dissection or pulm embolism no signs of ACS he stable for discharge 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 Medical Records I reviewed the patient's medical records. Lab Data I reviewed the patient's lab results. 07/13/24 16:00 07/13/24 16:00 Radiology Impressions Chest X-Ray 07/13/24 15:56 IMPRESSION: No acute portable plain film findings. Laboratory Results WBC 6.33 10^3/uL (3.29-11.43) 07/13/24 16:00 RBC 4.56 10^6/uL (3.85-5.65) 07/13/24 16:00 Hgb 12.70 g/dL (11.27-16.99) 07/13/24 16:00 Hct 39.0 % (37-53) 07/13/24 16:00 MCV 85.5 fl (82-101) 07/13/24 16:00 MCH 27.9 pg (27-33) 07/13/24 16:00 MCHC 32.6 g/dL (30-55) 07/13/24 16:00 RDW 13.5 % (12.1-15.1) 07/13/24 16:00 Plt Count 106 10^3/cmm (157-399) L 07/13/24 16:00 MPV 11.2 fL (7.4-10.4) H 07/13/24 16:00 Neut % (Auto) 58.8 % 07/13/24 16:00 Lymph % (Auto) 21.5 % 07/13/24 16:00 [place] % (Auto) 11.8 % 07/13/24 16:00 Eos % (Auto) 6.3 % 07/13/24 16:00 Baso % (Auto) 1.4 % 07/13/24 16:00 Neut # (Auto) 3.72 10^3/uL (1.8-7.7) 07/13/24 16:00 Lymph # (Auto) 1.4 10^3/uL (0.8-4.8) 07/13/24 16:00 [place] # (Auto) 0.8 10^3/uL (0.2-0.9) 07/13/24 16:00 Eos # (Auto) 0.4 10^3/uL (0.0-0.8) 07/13/24 16:00 Baso # (Auto) 0.1 10^3/uL (0.0-0.1) 07/13/24 16:00 Nucleated RBC % (auto) 0 % 07/13/24 16:00 Nucleated RBCs # 0.0 /100WBC 07/13/24 16:00 Sodium 136 mmol/L (136-145) 07/13/24 16:00 Potassium 4.0 mmol/L (3.5-5.1) 07/13/24 16:00 Chloride 101 mmol/L (98-107) 07/13/24 16:00 Carbon Dioxide 26 mmol/L (22-29) 07/13/24 16:00 Anion Gap 13.0 (5-19) 07/13/24 16:00 BUN 16 mg/dL (6-20) 07/13/24 16:00 Creatinine 1.2 mg/dL (0.7-1.2) 07/13/24 16:00 GFR Calculation 62.4 mL/min (90-130) L 07/13/24 16:00 Glucose 177 mg/dL (65-115) H 07/13/24 16:00 Calculated Osmolality 288 mOsm/kg (285-295) 07/13/24 16:00 Calcium 9.4 mg/dL (8.5-10.5) 07/13/24 16:00 Total Bilirubin 1.2 mg/dL (0.15-1.2) 07/13/24 16:00 AST 37 U/L (0-40) 07/13/24 16:00 ALT 31 U/L (0-41) 07/13/24 16:00 Alkaline Phosphatase 108 U/L (40-130) 07/13/24 16:00 Troponin T Baseline 17 ng/L (0-15) H 07/13/24 16:00 Troponin T 120 Minute 16.91 ng/L (0-15) H 07/13/24 17:38 Delta Troponin T -0.09 ABS# (0-10) L 07/13/24 17:38 Total Protein 7.6 g/dL (6.6-8.7) 07/13/24 16:00 Albumin 4.1 g/dL (3.5-5.2) 07/13/24 16:00 Globulin 3.5 g/dL (1.3-4.6) 07/13/24 16:00 Lipase 46 U/L (13-60) 07/13/24 16:00 All radiology interpretation(s) finalized by discharge EKG Data EKG 1: I personally reviewed and interpreted this EKG as follows: EKG interpretation date: 07/13/24 EKG interpretation time: 17:27 Interpretation: sinus patricio hr [address] or t wave abnormalities qrs 103 qtc 449 Discharge Plan Discharge Patient Disposition: Home Clinical Impression: Chest pain Condition: Stable Prescriptions: No Action allopurinol 100 mg tablet 100 mg PO DAILY PRN (Reason: GOUT) isosorbide mononitrate 30 mg tablet extended release 24 hr 30 mg PO DAILY Qty: 90 3RF Plavix 75 mg tablet 75 mg PO DAILY@0700 Qty: 90 3RF nitroglycerin 0.4 mg tablet, sublingual 0.4 mg SUBLINGUAL Q5M PRN (Reason: chest pain) 30 Days Qty: 30 3RF Rx Instructions: until response; do not exceed 3 doses per episode aspirin 81 mg tablet,chewable 81 mg PO DAILY@0700 Qty: 90 3RF bacitracin 500 unit/gram ointment 1 applic topical DAILY Qty: 14 0RF acetaminophen [Tylenol Arthritis Pain] 650 mg tablet extended release 650 mg PO Q8H PRN (Reason: pain) Qty: 30 0RF lisinopril 20 mg Tablet 40 mg PO DAILY Qty: 60 1RF magnesium L-threonate 48 mg magnesium (667 mg) capsule 48 mg PO DAILY Qty: 90 0RF methocarbamol 750 mg tablet 750 mg PO TID PRN (Reason: back pain) Qty: 15 0RF levothyroxine 150 mcg tablet 150 mcg PO DAILY Rx Instructions: TAKE 1 TABLET BY MOUTH EVERY DAY metoprolol tartrate 50 mg Tablet 50 mg PO DAILY calcium carbonate-vitamin D3 [Calcium 600 + D(3)] 600 mg-10 mcg (400 unit) Tablet 1 tab PO DAILY levetiracetam 750 mg tablet 750 mg PO BID Rx Instructions: TAKE ONE TABLET BY MOUTH TWICE DAILY lactulose 20 gram/30 mL Solution 10 g PO BID 30 Days Qty: 900 0RF insulin glargine [Lantus U-100 Insulin] 100 unit/mL solution 15 unit SUBCUT DAILY Qty: 10 0RF pantoprazole 40 mg Tablet,Delayed Release (Dr/Ec) 40 mg PO Q12H 30 Days Qty: 60 0RF atorvastatin 20 mg tablet 40 mg PO QPM 30 Days Qty: 60 0RF Discharge Orders: Discharge ED (Routine); Ordered 07/13/24 Ordered By: Kerry Jeter Referrals: Dorita Flaherty FNP [Primary Care Provider] - Discharge Diet: Advance as tolerated Discharge Activity: Resume usual activity Patient Instructions: Chest Pain (ED) Print Language: Armenian Coding Level of Care Code ED Channel Account Manager for Marva Bunn
[2024-07-13 16:13] LABS: Basophils # 0.1 10^3/uL (0.0-0.1); Basophils % 1.4 %; Eosinophils # 0.4 10^3/uL (0.0-0.8); Eosinophils % 6.3 %; Lymphocytes # 1.4 10^3/uL (0.8-4.8); Lymphocytes % 21.5 %; Mean Corpuscular HGB Conc 32.6 g/dL (30-55); Mean Corpuscular Hemoglobin 27.9 pg (27-33); Mean Corpuscular Volume 85.5 fl (82-101); Mean Platelet Volume 11.2 fL (7.4-10.4); Monocytes # 0.8 10^3/uL (0.2-0.9); Monocytes % 11.8 %; Neutrophils # 3.72 10^3/uL (1.8-7.7); Neutrophils % 58.8 %; Nucleated Red Blood Cells % 0 %; Platelet Count 106 10^3/cmm (157-399); Red Blood Count 4.56 10^6/uL (3.85-5.65); Red Cell Distribution Width 13.5 % (12.1-15.1); White Blood Count 6.33 10^3/uL (3.29-11.43)
[2024-07-13] MEDS: aspirin 81 mg Chew Tablet 324 MG PO (16:23)
[2024-07-13 16:44] LABS: Troponin(5th) Baseline 17 ng/L (0-15)
[2024-07-13 16:46] LABS: Alanine Aminotransferase 31 U/L (0-41); Albumin Level 4.1 g/dL (3.5-5.2); Alkaline Phosphatase 108 U/L (40-130); Blood Urea Nitrogen 16 mg/dL (6-20); Calcium 9.4 mg/dL (8.5-10.5); Carbon Dioxide 26 mmol/L (22-29); Chloride 101 mmol/L (98-107); Creatinine Clr Calc Pharmacy 78.3301; Globulin 3.5 g/dL (1.3-4.6); Glomerular Filtration Rate 62.4 mL/min (90-130); Glucose 177 mg/dL (65-115); Lipase 46 U/L (13-60); Osmolality Calculated 288 mOsm/kg (285-295); Sodium 136 mmol/L (136-145); Total Bilirubin 1.2 mg/dL (0.15-1.2); Total Protein 7.6 g/dL (6.6-8.7)
[2024-07-13 16:53] LABS: Aspartate Amino Transferase 37 U/L (0-40)
--- NOTE | 2024-07-13 17:56 | ECG_ITS ---
[facility] Test Date: 2024-07-13 Pat Name: Alonso Golden Department: Room: Gender: Male Manager Relocation: : 1965 Requested By: Kerry Jeter Order Number: [id number] Mariaa MD: Vernon Guillaume M.D. Measurements Intervals [place] Rate: 56 P: 16 [place]: 177 QRS: 70 QRSD: 103 T: 62 QT: 458 QTc: 443 Interpretive Statements SINUS BRADYCARDIA POSSIBLE INFERIOR MYOCARDIAL INFARCTION , OF INDETERMINATE AGE [30 ms Q WAVE IN II/aVF] Compared to ECG 07/13/2024 15:52:23 Myocardial infarct finding now present Sinus rhythm no longer present Electronically Signed On 07-17-2024 19:44:37 PERIOPERATIVE TECH by Vernon Guillaume M.D. [email or web address] [id number]
[2024-07-13 18:33] LABS: Troponin 5 2HR 16.91 ng/L (0-15)
[2024-07-13 18:34] LABS: Troponin 5 2HR Delta -0.09 ABS# (0-10)
== END 2024-07-13 19:00 | disposition home or self-care (01) ==
PROVIDERS: Emergency Provider Emergency Medicine; PCP Nurse Practitioner Family
DX: R07.9 Chest pain, unspecified (principal); Z79.82 Long term (current) use of aspirin; Z79.4 Long term (current) use of insulin; I25.118 Atherosclerotic heart disease of native coronary artery with other forms of angina pectoris; E11.9 Type 2 diabetes mellitus without complications; I10 Essential (primary) hypertension
CPT/HCPCS: 36415; 71045; 80053; 83690; 84484; 85025; 93005; 99213; 99285

== ENCOUNTER 2024-07-29 08:57 | Oncology outpatient (recurring) (ONCR) | payer MEDICAID, SELFPAY ==
[2024-07-29 10:17] LABS: Reticulocyte % 1.2 % (0.5-2.0)
[2024-07-29 10:19] LABS: Basophils # 0.1 10^3/uL (0.0-0.1); Basophils % 1.1 %; Eosinophils # 0.2 10^3/uL (0.0-0.8); Eosinophils % 4.1 %; Hematocrit 38.9 % (37-53); Lymphocytes # 0.8 10^3/uL (0.8-4.8); Lymphocytes % 15.2 %; Mean Corpuscular HGB Conc 32.4 g/dL (30-55); Mean Corpuscular Hemoglobin 27.6 pg (27-33); Mean Corpuscular Volume 85.1 fl (82-101); Mean Platelet Volume 11.7 fL (7.4-10.4); Monocytes # 0.5 10^3/uL (0.2-0.9); Monocytes % 8.7 %; Neutrophils # 3.79 10^3/uL (1.8-7.7); Neutrophils % 70.5 %; Nucleated Red Blood Cells % 0 %; Platelet Count 99 10^3/cmm (157-399); Red Blood Count 4.57 10^6/uL (3.85-5.65); Red Cell Distribution Width 13.7 % (12.1-15.1); White Blood Count 5.38 10^3/uL (3.29-11.43)
[2024-07-29 10:30] LABS: INR 1.24 (0.8-1.2)
[2024-07-29 10:31] LABS: Partial Thromboplastin Time 33.7 SECONDS (23.9-36.7)
[2024-07-29 10:42] LABS: LAB Peripheral Smear Sent for Review
[2024-07-29 10:44] LABS: Tumor Marker Alpha Fetoprotein 1.8 ng/mL (0-8.3)
[2024-07-29 10:56] LABS: Alanine Aminotransferase 32 U/L (0-41); Albumin Level 4.3 g/dL (3.5-5.2); Alkaline Phosphatase 114 U/L (40-130); Aspartate Amino Transferase 35 U/L (0-40); Blood Urea Nitrogen 15 mg/dL (6-20); Calcium 9.6 mg/dL (8.5-10.5); Carbon Dioxide 29 mmol/L (22-29); Chloride 101 mmol/L (98-107); Globulin 3.7 g/dL (1.3-4.6); Glucose 152 mg/dL (65-115); Immunoglobulin IGA 330 mg/dL (70-400); Immunoglobulin IGG 1633 mg/dL (700-1600); Immunoglobulin IGM 115 mg/dL (40-230); Osmolality Calculated 290 mOsm/kg (285-295); Sodium 138 mmol/L (136-145); Total Bilirubin 0.9 mg/dL (0.15-1.2)
[2024-07-29 10:58] LABS: Anion Gap 11.9 (5-19); Lactate Dehydrogenase 189 U/L (135-225); Potassium 3.9 mmol/L (3.5-5.1)
[2024-07-29 11:02] LABS: Folate Level 10.8 ng/mL (4.5-32.2)
[2024-07-29 11:13] LABS: Ferritin 19 ng/mL (30-400); Iron 40 ug/dL (59-158); Percent Saturation 10.4 % (20-50); Total Iron Binding Capacity 382 mcg/dl; Unsaturated Iron Binding 342 ug/dL (112-347)
[2024-07-29 11:28] LABS: Vitamin B12 457 pg/mL (232-1245)
[2024-07-30 06:55] LABS: PROTEIN, TOTAL 7.6 g/dL (6.1-8.1)
[2024-07-31 15:06] LABS: ALBUMIN 4.1 g/dL (3.8-4.8); ALPHA 1 GLOBULIN 0.3 g/dL (0.2-0.3); ALPHA 2 GLOBULIN 0.8 g/dL (0.5-0.9); BETA 1 GLOBULIN 0.5 g/dL (0.4-0.6); BETA 2 GLOBULIN 0.4 g/dL (0.2-0.5); GAMMA GLOBULIN 1.5 g/dL (0.8-1.7)
[2024-08-01 21:10] LABS: Immunofixation Serum Normal pattern.
== END 2024-08-09 23:59 | disposition home or self-care (01) ==
PROVIDERS: PCP Nurse Practitioner Family; Visit Provider Internal Medicine
DX: D64.9 Anemia, unspecified (principal); E78.5 Hyperlipidemia, unspecified; D69.6 Thrombocytopenia, unspecified; K74.60 Unspecified cirrhosis of liver; K76.6 Portal hypertension; R16.1 Splenomegaly, not elsewhere classified; E11.9 Type 2 diabetes mellitus without complications; I10 Essential (primary) hypertension; I25.10 Atherosclerotic heart disease of native coronary artery without angina pectoris; Z79.899 Other long term (current) drug therapy
CPT/HCPCS: 36415; 80053; 80503; 82105; 82607; 82728; 82746; 82784; 83010; 83540; 83550; 83615; 84155; 84165; 85025; 85045; 85610; 85730; 86334; 86880; 99204

== ENCOUNTER → 2024-08-02 13:46 | Outpatient (BNVA) | payer MEDICAID, SELFPAY | PROVIDERS: PCP Nurse Practitioner Family; Visit Provider Anesthesiology Pain Medicine | DX: M54.50 Low back pain, unspecified (principal); F17.200 Nicotine dependence, unspecified, uncomplicated | CPT/HCPCS: 72110; 99204 ==

== ENCOUNTER → 2024-08-12 10:18 | Outpatient (BNVA) | payer MEDICAID, SELFPAY | PROVIDERS: PCP Nurse Practitioner Family; Visit Provider Podiatrist Foot & Ankle Surgery | DX: E11.42 Type 2 diabetes mellitus with diabetic polyneuropathy (principal); L60.0 Ingrowing nail; L60.3 Nail dystrophy; Z79.84 Long term (current) use of oral hypoglycemic drugs | CPT/HCPCS: 11750; 99204; J9999 ==

== ENCOUNTER → 2024-08-23 12:20 | Outpatient (BNVA) | payer MEDICAID, SELFPAY | PROVIDERS: PCP Nurse Practitioner Family; Visit Provider Internal Medicine | DX: I86.8 Varicose veins of other specified sites (principal); R63.5 Abnormal weight gain; E03.8 Other specified hypothyroidism; E06.3 Autoimmune thyroiditis; E11.65 Type 2 diabetes mellitus with hyperglycemia; K74.60 Unspecified cirrhosis of liver; R16.1 Splenomegaly, not elsewhere classified; R18.8 Other ascites; R10.31 Right lower quadrant pain | CPT/HCPCS: 36415; 80053; 80061; 82044; 83036; 84439; 84443 ==

== ENCOUNTER → 2024-08-26 09:42 | Outpatient (BNVA) | payer MEDICAID, SELFPAY | PROVIDERS: PCP Nurse Practitioner Family; Visit Provider Podiatrist Foot & Ankle Surgery | DX: Z98.890 Other specified postprocedural states (principal); L60.3 Nail dystrophy; M21.41 Flat foot [pes planus] (acquired), right foot; M21.42 Flat foot [pes planus] (acquired), left foot; Z79.4 Long term (current) use of insulin | CPT/HCPCS: 99214 ==

== ENCOUNTER 2024-08-27 08:53 | Oncology outpatient (recurring) (ONCR) | payer MEDICAID, SELFPAY ==
--- NOTE | 2024-08-27 08:00 | MR_ITS ---
WS: [id number] MRI LUMBAR SPINE NONCONTRAST TECHNIQUE: Sagittal T1, T2 and STIR imaging. Axial T1 and T2 imaging. CLINICAL INFORMATION: M54.16 - Radiculopathy, lumbar region COMPARISON: MRI 2020 FINDINGS: Grade 1 anterolisthesis L5 on S1 with chronic bilateral pars defects. Anterolisthesis appears slightly progressed compared to 2020. L1-L2: Mild annular bulging. Mild facet arthropathy. Foramina are patent. L2-L3: Mild annular bulging. Mild bilateral foraminal narrowing. Mild facet arthropathy. L3-L4: Mild annular bulging with mild central canal stenosis similar to previous. Moderate facet arthropathy. Bilateral foraminal protrusions with moderate bilateral foraminal narrowing L4-L5: Mild annular bulging with slight impingement on the subarticular recess bilaterally. Eccentric disc bulging with moderate RIGHT and mild LEFT foraminal narrowing. L5-S1: Grade 1 anterolisthesis with bilateral pars defects. Disc bulging with annular tear. Central protrusion with slight encroachment on the traversing LEFT greater than RIGHT S1 nerve roots. Moderate facet arthropathy. Mild bilateral foraminal narrowing. Visualized pelvic bony structures: Normal. Paravertebral soft tissues: Normal. MR/MR lumbar spine wo con* [id number] IMPRESSION: 1. Grade 1 anterolisthesis L5 on S1 with bilateral pars defects. Anterolisthes is is increased slightly compared to 2020. 2. Mild disc bulge L5-S1 with a small central protrusion and annular tear. Sli ght encroachment on the traversing LEFT greater than RIGHT S1 nerve roots. 3. Mild central canal stenosis L3-4 similar to previous. 4. Narrowing of the L4-5 subarticular recess is similar to previous. 5. Bilateral foraminal protrusions L3-4 with moderate bilateral foraminal narr owing. 6. Moderate RIGHT L4-5 foraminal narrowing. 7. Moderate facet arthropathy L3-L5.
== END 2024-09-08 23:59 | disposition home or self-care (01) ==
LOC: RAD 08:55 → ONCMED 10:43
PROVIDERS: PCP Nurse Practitioner Family; Visit Provider Anesthesiology Pain Medicine
DX: D64.9 Anemia, unspecified (principal); E78.5 Hyperlipidemia, unspecified; D69.6 Thrombocytopenia, unspecified; K74.60 Unspecified cirrhosis of liver; K76.6 Portal hypertension; R16.1 Splenomegaly, not elsewhere classified; E11.9 Type 2 diabetes mellitus without complications; I10 Essential (primary) hypertension; I25.10 Atherosclerotic heart disease of native coronary artery without angina pectoris; Z79.899 Other long term (current) drug therapy; M54.16 Radiculopathy, lumbar region
CPT/HCPCS: 72148

== ENCOUNTER 2024-09-07 20:35 | Emergency (ER) | payer MEDICAID, SELFPAY ==
[2024-09-07 20:42] VITALS: BP 154/85; PULSE 67; RESP 16; TEMP 36.6; O2SAT 100; BMI 29.7
--- NOTE | 2024-09-07 22:06 | W.ED.GENADLT ---
HPI - General Adult General: Chief complaint: General Medical Stated complaint: knot behind left ear Time Seen by Provider: 09/07/24 21:41 History of Present Illness: Patient is a well-appearing 59-year-old male seen for painful lump behind his left ear which has grown over the last 2 weeks. He was seen by his primary care physician roughly 1 week ago at which time no intervention was made. He complains of 8 of 10 pain, worse with motion and better with rest. He cannot lay on his left side because of the pain and swelling. He has never had this before. He denies fever, cough, inner ear pain, and has no other acute complaints. Related Data Home Medications ?Medication ?Instructions ?Recorded ?Confirmed allopurinol 100 mg tablet 100 mg PO DAILY PRN GOUT 12/13/20 08/26/24 levothyroxine 150 mcg tablet 150 mcg PO DAILY 02/18/24 08/26/24 calcium 600 mg (as 1 tab PO DAILY 05/29/24 08/26/24 carbonate)-vitamin D3 10 mcg (400 unit) tablet (Calcium 600 + D(3)) levetiracetam 750 mg tablet 750 mg PO BID 05/29/24 08/26/24 metoprolol tartrate 50 mg tablet 50 mg PO DAILY 05/29/24 08/26/24 atorvastatin 40 mg tablet (Lipitor) 40 mg PO BID 07/29/24 08/26/24 ciprofloxacin HCl 250 mg tablet 250 mg PO BID 07/29/24 08/26/24 escitalopram oxalate 5 mg tablet 5 mg PO DAILY 07/29/24 08/26/24 hydroxyzine HCl 25 mg tablet 25 mg PO BID PRN 07/29/24 08/26/24 lactulose 10 gram/15 mL oral 15 g PO BID 07/29/24 08/26/24 solution sucralfate 1 gram tablet 1 g PO BID 07/29/24 08/26/24 Previous Rx's ?Medication ?Instructions ?Recorded methocarbamol 750 mg tablet 750 mg PO TID PRN back pain #15 04/14/23 tabs aspirin 81 mg chewable tablet 81 mg PO DAILY@0700 #90 tabs 08/01/23 clopidogrel 75 mg tablet (Plavix) 75 mg PO DAILY@0700 #90 tabs 08/01/23 nitroglycerin 0.4 mg sublingual 0.4 mg sublingual Q5M PRN chest 08/01/23 tablet pain 30 days #30 tabs bacitracin 500 unit/gram topical 1 applic topical DAILY #14 grams 09/25/23 ointment insulin glargine 100 unit/mL 15 unit (0.15 mL) SUBCUT DAILY #10 06/14/24 subcutaneous solution (Lantus mL U-100 Insulin) pantoprazole 40 mg tablet,delayed 40 mg PO Q12H 30 days #60 tabs 06/14/24 release isosorbide mononitrate 30 mg 30 mg PO DAILY #90 tabs 06/16/24 tablet,extended release 24 hr acetaminophen 650 mg 650 mg PO Q8H PRN pain #30 tabs 06/21/24 tablet,extended release (Tylenol Arthritis Pain) lisinopril 20 mg tablet 40 mg (2 x 20 mg) PO DAILY #60 tabs 06/21/24 multivitamin (Daily Multi-Vitamin 1 tab PO QAM #60 tabs 07/29/24 tablet) acetaminophen 300 mg-codeine 30 mg 1 tab PO Q8H PRN pain 7 days #21 08/12/24 tablet tabs silver sulfadiazine 1 % topical 1 applic topical DAILY 2 weeks #50 08/12/24 cream grams Allergies Allergy/AdvReac Type Severity Reaction Status Date / Time cephalexin (From Keflex) Allergy Unknown Verified 09/07/24 20:50 Cephalosporins Allergy hives Verified 09/07/24 20:50 [facility] ED PFSH: Medical History Thrombocytopenia 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 Chest pain Unstable angina 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 History of opioid abuse Mild cognitive impairment with memory loss Lacunar stroke Splenomegaly Erectile dysfunction Hepatosplenomegaly Enlarged prostate Acute kidney injury Coronary artery disease Chronic low back pain Dyslipidemia Benign essential hypertension with target blood pressure below 140/90 Type 2 diabetes mellitus Atypical chest pain Epilepsy Obesity Glucose intolerance Smoker Hypothyroidism Surgical History History of cholecystectomy H/O eye surgery right eye History of PTCA H/O heart artery stent 07/11/2020-Cardiac stent placement mid LAD H/O umbilical hernia repair History of appendectomy Family History Father , at age 74 Family history of premature coronary artery disease Had a myocardial infarction in his 40s. Diabetes CAD (coronary artery disease) Chronic kidney disease (CKD) Stroke Brother Family history of premature coronary artery disease CAD (coronary artery disease) Had [place] in the 50s Diabetes Stroke Grandmother CAD (coronary artery disease) Diabetes Grandfather CAD (coronary artery disease) Mother , at age 84 CAD (coronary artery disease) Cancer Diabetes COVID-19 Family/Other Lung disease Denies family history of Clotting disorder Dementia Suicide Anesthesia complication Bleeding disorder Social History Smoking and tobacco/nicotine status: current every day tobacco/nicotine user Alcohol intake: current Alcohol intake frequency: holidays/special occasions only Substance/Drug Use: never Household members: spouse Housing: House Marital status: Current occupational status: disabled Physical Exam Const: COMMON NORMALS: no acute distress, patient oriented x3 and alert HENMT: OTHER: Head is normocephalic. No trauma. Inner ears are normal. Left external ear has a 1.5 cm circular, fluctuant, tender mass at the medial point of the ear and the scalp. There is no overlying redness or warmth to imply cellulitis Eye: COMMON NORMALS: Equal, round and reactive pupils present, EOMs intact bilaterally and no scleral icterus PUPIL: Yes Equal, round and reactive pupils present Resp: COMMON NORMALS: normal respiratory effort and No retractions Cardio: COMMON NORMALS: regular rate, regular rhythm and No murmurs present (Cardio) RATE: regular rate RHYTHM: regular rhythm GI: COMMON NORMALS: Normal to inspection, nondistended, normoactive bowel sounds present, Soft to palpation and non-tender PALPATION: Yes Soft to palpation Neuro: COMMON NORMALS: patient oriented x3 SENSORIUM/ORIENTATION: Yes alert Skin: COMMON NORMALS: no rashes or lesions noted GENERAL SKIN EXAM: no rashes or lesions noted Course Vital Signs: Vital signs: Vital Signs Temperature 97.9 F 09/07/24 20:42 Pulse Rate 64 09/07/24 22:54 Respiratory Rate 16 09/07/24 22:54 Blood Pressure 146/85 09/07/24 22:54 Pulse Oximetry 99 09/07/24 22:54 Oxygen Delivery Me thod Room Air 09/07/24 20:42 MDM - General Adult Medical Decision Making Procedure: Abscess incision and drainage: 2 cm circular abscess behind the left ear on the scalp was cleansed with alcohol and then anesthetized using 1.5 cc of lidocaine 1% with epinephrine. A single linear incision was made with an 11 blade with immediate return of purulent discharge. Copious purulence was expressed and then the wound was thoroughly irrigated using normal saline and deloculated until all purulence was evacuated from the abscess. A dressing was applied. Patient tolerated the procedure well without any immediate deleterious sequelae. There is no overlying cellulitis associated with the abscess. He will not need antibiotics. He will be discharged in stable and improved condition with follow-up primary care as needed. No radiology studies performed this visit Discharge Plan Discharge Patient Disposition: Home Clinical Impression: Abscess of postauricular region Condition: Stable Prescriptions: No Action allopurinol 100 mg tablet 100 mg PO DAILY PRN (Reason: GOUT) isosorbide mononitrate 30 mg tablet extended release 24 hr 30 mg PO DAILY Qty: 90 3RF atorvastatin [Lipitor] 40 mg tablet 40 mg PO BID sucralfate 1 gram tablet 1 g PO BID ciprofloxacin HCl 250 mg tablet 250 mg PO BID hydroxyzine HCl 25 mg tablet 25 mg PO BID PRN escitalopram oxalate 5 mg tablet 5 mg PO DAILY lactulose 10 gram/15 mL solution 15 g PO BID multivitamin [Daily Multi-Vitamin] Tablet 1 tab PO QAM Qty: 60 0RF silver sulfadiazine 1 % cream 1 applic topical DAILY 14 Days Qty: 50 0RF Rx Instructions: apply a 1.5 mm thickness acetaminophen-codeine 300-30 mg tablet 1 tab PO Q8H PRN (Reason: pain) 7 Days Qty: 21 0RF Plavix 75 mg tablet 75 mg PO DAILY@0700 Qty: 90 3RF nitroglycerin 0.4 mg tablet, sublingual 0.4 mg SUBLINGUAL Q5M PRN (Reason: chest pain) 30 Days Qty: 30 3RF Rx Instructions: until response; do not exceed 3 doses per episode aspirin 81 mg tablet,chewable 81 mg PO DAILY@0700 Qty: 90 3RF bacitracin 500 unit/gram ointment 1 applic topical DAILY Qty: 14 0RF acetaminophen [Tylenol Arthritis Pain] 650 mg tablet extended release 650 mg PO Q8H PRN (Reason: pain) Qty: 30 0RF lisinopril 20 mg Tablet 40 mg PO DAILY Qty: 60 1RF methocarbamol 750 mg tablet 750 mg PO TID PRN (Reason: back pain) Qty: 15 0RF levothyroxine 150 mcg tablet 150 mcg PO DAILY Rx Instructions: TAKE 1 TABLET BY MOUTH EVERY DAY metoprolol tartrate 50 mg Tablet 50 mg PO DAILY calcium carbonate-vitamin D3 [Calcium 600 + D(3)] 600 mg-10 mcg (400 unit) Tablet 1 tab PO DAILY levetiracetam 750 mg tablet 750 mg PO BID Rx Instructions: TAKE ONE TABLET BY MOUTH TWICE DAILY insulin glargine [Lantus U-100 Insulin] 100 unit/mL solution 15 unit SUBCUT DAILY Qty: 10 0RF pantoprazole 40 mg Tablet,Delayed Release (Dr/Ec) 40 mg PO Q12H 30 Days Qty: 60 0RF Discharge Orders: Discharge ED (Routine); Ordered 09/07/24 Ordered By: Jack Benavides Referrals: Dorita Flaherty FNP [Primary Care Provider] - Discharge Diet: Usual diet Discharge Activity: Resume usual activity Patient Instructions: Skin Abscess Print Language: Divehi Coding Level of Care Code ED Timber Framer for Marva Bunn
[2024-09-07] MEDS: lidocaine-epi 1% 20 mL INJ 5 ML INJECTION (22:22)
[2024-09-07] MEDS: TRAMadol 50 mg Tablet PO (22:49)
[2024-09-07 22:54] VITALS: BP 146/85; PULSE 64; RESP 16; O2SAT 99
== END 2024-09-07 22:56 | disposition home or self-care (01) ==
PROVIDERS: Emergency Provider Student in an Organized Health Care Education/Training Program; PCP Nurse Practitioner Family
DX: H60.02 Abscess of left external ear (principal); Z79.82 Long term (current) use of aspirin; Z79.4 Long term (current) use of insulin; Z72.0 Tobacco use; E11.9 Type 2 diabetes mellitus without complications; I10 Essential (primary) hypertension; I25.118 Atherosclerotic heart disease of native coronary artery with other forms of angina pectoris; E78.5 Hyperlipidemia, unspecified
CPT/HCPCS: 99283; J9999

== ENCOUNTER 2024-09-16 13:41 | Oncology outpatient (recurring) (ONCR) | payer MEDICAID, SELFPAY ==
[2024-09-16 11:10] LABS: Reticulocyte % 1.6 % (0.5-2.0)
[2024-09-16 11:11] LABS: Basophils # 0.1 10^3/uL (0.0-0.1); Eosinophils # 0.2 10^3/uL (0.0-0.8); Eosinophils % 2.9 %; Hematocrit 43.1 % (37-53); Lymphocytes % 14.3 %; Mean Corpuscular HGB Conc 32.5 g/dL (30-55); Mean Corpuscular Hemoglobin 27.6 pg (27-33); Mean Corpuscular Volume 84.8 fl (82-101); Mean Platelet Volume 11.4 fL (7.4-10.4); Monocytes # 0.6 10^3/uL (0.2-0.9); Monocytes % 8.5 %; Neutrophils # 5.05 10^3/uL (1.8-7.7); Nucleated Red Blood Cells % 0 %; Platelet Count 96 10^3/cmm (157-399); Red Blood Count 5.08 10^6/uL (3.85-5.65); Red Cell Distribution Width 14.9 % (12.1-15.1); White Blood Count 6.92 10^3/uL (3.29-11.43)
[2024-09-16 11:14] LABS: LAB Peripheral Smear Sent for Review
[2024-09-16 11:21] LABS: INR 1.19 (0.8-1.2)
[2024-09-16 11:22] LABS: Partial Thromboplastin Time 32.5 SECONDS (23.9-36.7)
[2024-09-16 11:30] LABS: Alanine Aminotransferase 27 U/L (0-41); Albumin Level 4.1 g/dL (3.5-5.2); Alkaline Phosphatase 110 U/L (40-130); Anion Gap 16.2 (5-19); Aspartate Amino Transferase 33 U/L (0-40); Blood Urea Nitrogen 18 mg/dL (6-20); Calcium 9.7 mg/dL (8.5-10.5); Carbon Dioxide 26 mmol/L (22-29); Chloride 100 mmol/L (98-107); Ferritin 21 ng/mL (30-400); Globulin 3.8 g/dL (1.3-4.6); Glucose 190 mg/dL (65-115); Iron 75 ug/dL (59-158); Lactate Dehydrogenase 156 U/L (135-225); Osmolality Calculated 293 mOsm/kg (285-295); Percent Saturation 19.3 % (20-50); Potassium 4.2 mmol/L (3.5-5.1); Sodium 138 mmol/L (136-145); Total Bilirubin 1.3 mg/dL (0.15-1.2); Total Iron Binding Capacity 388 mcg/dl; Total Protein 7.9 g/dL (6.6-8.7); Unsaturated Iron Binding 313 ug/dL (112-347)
[2024-09-16 11:45] LABS: Vitamin B12 489 pg/mL (232-1245)
[2024-09-16 13:34] LABS: Tumor Marker Alpha Fetoprotein 1.8 ng/mL (0-8.3)
[2024-09-17 10:05] LABS: PROTEIN, TOTAL 8.4 g/dL (6.1-8.1)
[2024-09-18 13:39] LABS: ALBUMIN 4.6 g/dL (3.8-4.8); ALPHA 1 GLOBULIN 0.3 g/dL (0.2-0.3); ALPHA 2 GLOBULIN 0.8 g/dL (0.5-0.9); BETA 1 GLOBULIN 0.6 g/dL (0.4-0.6); BETA 2 GLOBULIN 0.4 g/dL (0.2-0.5); GAMMA GLOBULIN 1.8 g/dL (0.8-1.7)
[2024-09-20 14:14] LABS: Immunofixation Serum Normal pattern.
[2024-09-20 16:30] LABS: Erythropoietin 19.4 mIU/mL (2.6-18.5)
== END 2024-10-09 23:59 | disposition home or self-care (01) ==
PROVIDERS: Internal Medicine; PCP Nurse Practitioner Family; Visit Provider Anesthesiology Pain Medicine
DX: Z53.9 Procedure and treatment not carried out, unspecified reason (principal); D69.6 Thrombocytopenia, unspecified; M54.16 Radiculopathy, lumbar region; M47.816 Spondylosis without myelopathy or radiculopathy, lumbar region; K74.60 Unspecified cirrhosis of liver; K76.6 Portal hypertension; R16.1 Splenomegaly, not elsewhere classified
CPT/HCPCS: 36415; 80053; 80503; 82105; 82607; 82668; 82728; 82746; 83010; 83540; 83550; 83615; 84155; 84165; 85025; 85045; 85610; 85730; 86334; 86880; 99213

== ENCOUNTER 2024-09-17 20:39 | Emergency (ER) | payer MEDICAID, SELFPAY ==
[2024-09-17 20:42] VITALS: BP 139/83; PULSE 70; RESP 16; TEMP 36.8; O2SAT 100; BMI 29.7
--- NOTE | 2024-09-17 20:53 | W.ED.ABDPA2 ---
HPI - Abdominal Pain General: Chief Complaint: Abdominal Pain Stated Complaint: R side pain Time Seen by Provider: 09/17/24 20:46 Source: patient Mode of arrival: ambulatory Limitations: no limitations History of Present Illness: 59-year-old male who is very well-known to the ER has a history of chronic abdominal pain states has been having right side abdominal pain for the last 2 days pain sharp in nature rates it a 6 out of 10 he denies any vomiting or diarrhea or fevers. Associated Symptoms: Denies chills, diarrhea, dysuria, fever(s), nausea and vomiting Related Data Home Medications ?Medication ?Instructions ?Recorded ?Confirmed allopurinol 100 mg tablet 100 mg PO DAILY PRN GOUT 12/13/20 09/17/24 levothyroxine 150 mcg tablet 150 mcg PO DAILY 02/18/24 09/17/24 calcium 600 mg (as 1 tab PO DAILY 05/29/24 09/17/24 carbonate)-vitamin D3 10 mcg (400 unit) tablet (Calcium 600 + D(3)) levetiracetam 750 mg tablet 750 mg PO BID 05/29/24 09/17/24 metoprolol tartrate 50 mg tablet 50 mg PO DAILY 05/29/24 09/17/24 atorvastatin 40 mg tablet (Lipitor) 40 mg PO BID 07/29/24 09/17/24 ciprofloxacin HCl 250 mg tablet 250 mg PO BID 07/29/24 09/17/24 escitalopram oxalate 5 mg tablet 5 mg PO DAILY 07/29/24 09/17/24 hydroxyzine HCl 25 mg tablet 25 mg PO BID PRN 07/29/24 09/17/24 lactulose 10 gram/15 mL oral 15 g PO BID 07/29/24 09/17/24 solution sucralfate 1 gram tablet 1 g PO BID 07/29/24 09/17/24 Previous Rx's ?Medication ?Instructions ?Recorded methocarbamol 750 mg tablet 750 mg PO TID PRN back pain #15 04/14/23 tabs aspirin 81 mg chewable tablet 81 mg PO DAILY@0700 #90 tabs 08/01/23 clopidogrel 75 mg tablet (Plavix) 75 mg PO DAILY@0700 #90 tabs 08/01/23 nitroglycerin 0.4 mg sublingual 0.4 mg sublingual Q5M PRN chest 03/22/24 tablet pain 30 days #30 tabs bacitracin 500 unit/gram topical 1 applic topical DAILY #14 grams 09/25/23 ointment insulin glargine 100 unit/mL 15 unit (0.15 mL) SUBCUT DAILY #10 06/14/24 subcutaneous solution (Lantus mL U-100 Insulin) pantoprazole 40 mg tablet,delayed 40 mg PO Q12H 30 days #60 tabs 06/14/24 release isosorbide mononitrate 30 mg 30 mg PO DAILY #90 tabs 06/16/24 tablet,extended release 24 hr acetaminophen 650 mg 650 mg PO Q8H PRN pain #30 tabs 06/21/24 tablet,extended release (Tylenol Arthritis Pain) lisinopril 20 mg tablet 40 mg (2 x 20 mg) PO DAILY #60 tabs 06/21/24 multivitamin (Daily Multi-Vitamin 1 tab PO QAM #60 tabs 07/29/24 tablet) acetaminophen 300 mg-codeine 30 mg 1 tab PO Q8H PRN pain 7 days #21 08/12/24 tablet tabs silver sulfadiazine 1 % topical 1 applic topical DAILY 2 weeks #50 08/12/24 cream grams Allergies Allergy/AdvReac Type Severity Reaction Status Date / Time cephalexin (From Keflex) Allergy Unknown Verified 09/17/24 07:59 Cephalosporins Allergy hives Verified 09/17/24 07:59 Review of Systems Const: Denies: fever(s), chills, body aches or change in appetite ENMT: Denies: throat pain or dental pain Card: Denies: chest pain Resp: Denies: dyspnea GI: Reports: abdominal pain; Denies: nausea, vomiting or diarrhea : Denies: dysuria Musc: Denies: neck pain or back pain Skin/Breast: Denies: rash Neuro: Denies: headache(s) PFSH ED PFSH: Medical History Thrombocytopenia 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 Chest pain Unstable angina Atherosclerotic heart disease of [place] coronary artery with other forms of angina 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 History of opioid abuse Mild cognitive impairment with memory loss Lacunar stroke Splenomegaly Erectile dysfunction Hepatosplenomegaly Enlarged prostate Acute kidney injury Coronary artery disease Chronic low back pain Dyslipidemia Benign essential hypertension with target blood pressure below 140/90 Type 2 diabetes mellitus Atypical chest pain Epilepsy Obesity Glucose intolerance Smoker Hypothyroidism Surgical History History of cholecystectomy H/O eye surgery right eye History of PTCA H/O heart artery stent 07/11/2020-Cardiac stent placement mid LAD H/O umbilical hernia repair History of appendectomy Family History Father , at age 74 Family history of premature coronary artery disease Had a myocardial infarction in his 40s. Diabetes CAD (coronary artery disease) Chronic kidney disease (CKD) Stroke Brother Family history of premature coronary artery disease CAD (coronary artery disease) Had [place] in the 50s Diabetes Stroke Grandmother CAD (coronary artery disease) Diabetes Grandfather CAD (coronary artery disease) Mother , at age 84 CAD (coronary artery disease) Cancer Diabetes COVID-19 Family/Other Lung disease Denies family history of Clotting disorder Dementia Suicide Anesthesia complication Bleeding disorder Social History Smoking and tobacco/nicotine status: current every day tobacco/nicotine user Alcohol intake: current Alcohol intake frequency: holidays/special occasions only Substance/Drug Use: never Household members: spouse Housing: House Marital status: Current occupational status: disabled Physical Exam Const: COMMON NORMALS: no acute distress, patient oriented x3 and healthy appearing HENMT: COMMON NORMALS: normocephalic and atraumatic HEAD & SCALP: normocephalic and atraumatic Eye: COMMON NORMALS: conjunctivae normal CONJUNCTIVA: Yes conjunctivae normal Neck/C-Spine: COMMON NORMALS: full ROM and supple Chest: COMMONS NORMALS: normal inspection of the chest Resp: COMMON NORMALS: normal respiratory effort Cardio: COMMON NORMALS: regular rate, regular rhythm and No murmurs present (Cardio) RATE: regular rate RHYTHM: regular rhythm GI: COMMON NORMALS: Normal to inspection, nondistended, normoactive bowel sounds present, Soft to palpation, non-tender and no masses PALPATION: Yes Soft to palpation Extremity: COMMON NORMALS: normal to inspection and full ROM Neuro: COMMON NORMALS: patient oriented x3, moves all extremities and no focal motor deficits Psych: COMMON NORMALS: mental status grossly normal, Normal thought process present and cooperative THOUGHT PROCESS: Normal thought process present Skin: COMMON NORMALS: no rashes or lesions noted and no wounds GENERAL SKIN EXAM: no rashes or lesions noted Course Vital Signs: Vital signs: Vital Signs Temperature 98.2 F 09/17/24 20:42 Pulse Rate 68 09/17/24 21:24 Respiratory Rate 18 09/17/24 21:24 Blood Pressure 153/84 09/17/24 21:24 Pulse Oximetry 98 09/17/24 21:24 Oxygen Delivery Me thod Room Air 09/17/24 20:42 MDM - Abdominal Pain Medical Decision Making Patient presents for abdominal pain is chronic in nature blood work here is normal patient stable for discharge follow-up PCP return if worsening. Medical Records I reviewed the patient's medical records. Lab Data I reviewed the patient's lab results. 09/17/24 20:54 09/17/24 20:54 Labs/Radiology: Laboratory Results WBC 4.79 10^3/uL (3.29-11.43) 09/17/24 20:54 RBC 4.77 10^6/uL (3.85-5.65) 09/17/24 20:54 Hgb 13.20 g/dL (11.27-16.99) 09/17/24 20:54 Hct 40.3 % (37-53) 09/17/24 20:54 MCV 84.5 fl (82-101) 09/17/24 20:54 MCH 27.7 pg (27-33) 09/17/24 20:54 MCHC 32.8 g/dL (30-55) 09/17/24 20:54 RDW 14.8 % (12.1-15.1) 09/17/24 20:54 Plt Count 87 10^3/cmm (157-399) L 09/17/24 20:54 MPV 10.8 fL (7.4-10.4) H 09/17/24 20:54 Neut % (Auto) 61.6 % 09/17/24 20:54 Lymph % (Auto) 19.4 % 09/17/24 20:54 [place] % (Auto) 12.9 % 09/17/24 20:54 Eos % (Auto) 4.4 % 09/17/24 20:54 Baso % (Auto) 1.3 % 09/17/24 20:54 Neut # (Auto) 2.95 10^3/uL (1.8-7.7) 09/17/24 20:54 Lymph # (Auto) 0.9 10^3/uL (0.8-4.8) 09/17/24 20:54 [place] # (Auto) 0.6 10^3/uL (0.2-0.9) 09/17/24 20:54 Eos # (Auto) 0.2 10^3/uL (0.0-0.8) 09/17/24 20:54 Baso # (Auto) 0.1 10^3/uL (0.0-0.1) 09/17/24 20:54 Nucleated RBC % (auto) 0 % 09/17/24 20:54 Nucleated RBCs # 0.0 /100WBC 09/17/24 20:54 Sodium 138 mmol/L (136-145) 09/17/24 20:54 Potassium 4.3 mmol/L (3.5-5.1) 09/17/24 20:54 Chloride 101 mmol/L (98-107) 09/17/24 20:54 Carbon Dioxide 28 mmol/L (22-29) 09/17/24 20:54 Anion Gap 13.3 (5-19) 09/17/24 20:54 BUN 17 mg/dL (6-20) 09/17/24 20:54 Creatinine 1.3 mg/dL (0.7-1.2) H 09/17/24 20:54 GFR Calculation 56.9 mL/min (90-130) L 09/17/24 20:54 Glucose 265 mg/dL (65-115) H 09/17/24 20:54 Calculated Osmolality 297 mOsm/kg (285-295) H 09/17/24 20:54 Calcium 9.7 mg/dL (8.5-10.5) 09/17/24 20:54 Total Bilirubin 1.1 mg/dL (0.15-1.2) 09/17/24 20:54 AST 41 U/L (0-40) H 09/17/24 20:54 ALT 32 U/L (0-41) 09/17/24 20:54 Alkaline Phosphatase 133 U/L (40-130) H 09/17/24 20:54 Total Protein 7.7 g/dL (6.6-8.7) 09/17/24 20:54 Albumin 4.2 g/dL (3.5-5.2) 09/17/24 20:54 Globulin 3.5 g/dL (1.3-4.6) 09/17/24 20:54 Lipase 53 U/L (13-60) 09/17/24 20:54 Urine Color Yellow (Yellow) 09/17/24 21:11 Urine Appearance Clear (CLEAR) 09/17/24 21:11 Urine pH 7.0 (5-7) 09/17/24 21:11 Ur Specific [place] 1.014 (1.005-1.030) 09/17/24 21:11 Urine Protein Negative (Negative) 09/17/24 21:11 Urine Glucose (UA) 2+ (Normal) H 09/17/24 21:11 Urine Ketones Negative (Negative) 09/17/24 21:11 Urine Blood Negative (Negative) 09/17/24 21:11 Urine Nitrate Negative (Negative) 09/17/24 21:11 Urine Bilirubin Negative (Negative) 09/17/24 21:11 Urine Urobilinogen 1.0 mg/dL (Negative) 09/17/24 21:11 Ur Leukocyte Esterase Negative (Negative) 09/17/24 21:11 Urine RBC 0-2 /hpf (0-2) 09/17/24 21:11 Urine WBC 0-5 /hpf (0-5) 09/17/24 21:11 Ur Squamous Epith Cells 0-5 /hpf (0-5) 09/17/24 21:11 Amorphous Sediment Not Reportable 09/17/24 21:11 Urine Bacteria None seen /hpf (NONE) 09/17/24 21:11 Hyaline Casts 0-4 /lpf H 09/17/24 21:11 No radiology studies performed this visit Discharge Plan Discharge Patient Disposition: Home Clinical Impression: Abdominal pain Condition: Stable Prescriptions: No Action allopurinol 100 mg tablet 100 mg PO DAILY PRN (Reason: GOUT) isosorbide mononitrate 30 mg tablet extended release 24 hr 30 mg PO DAILY Qty: 90 3RF atorvastatin [Lipitor] 40 mg tablet 40 mg PO BID sucralfate 1 gram tablet 1 g PO BID ciprofloxacin HCl 250 mg tablet 250 mg PO BID hydroxyzine HCl 25 mg tablet 25 mg PO BID PRN escitalopram oxalate 5 mg tablet 5 mg PO DAILY lactulose 10 gram/15 mL solution 15 g PO BID multivitamin [Daily Multi-Vitamin] Tablet 1 tab PO QAM Qty: 60 0RF silver sulfadiazine 1 % cream 1 applic topical DAILY 14 Days Qty: 50 0RF Rx Instructions: apply a 1.5 mm thickness acetaminophen-codeine 300-30 mg tablet 1 tab PO Q8H PRN (Reason: pain) 7 Days Qty: 21 0RF Plavix 75 mg tablet 75 mg PO DAILY@0700 Qty: 90 3RF nitroglycerin 0.4 mg tablet, sublingual 0.4 mg SUBLINGUAL Q5M PRN (Reason: chest pain) 30 Days Qty: 30 3RF Rx Instructions: until response; do not exceed 3 doses per episode aspirin 81 mg tablet,chewable 81 mg PO DAILY@0700 Qty: 90 3RF bacitracin 500 unit/gram ointment 1 applic topical DAILY Qty: 14 0RF acetaminophen [Tylenol Arthritis Pain] 650 mg tablet extended release 650 mg PO Q8H PRN (Reason: pain) Qty: 30 0RF lisinopril 20 mg Tablet 40 mg PO DAILY Qty: 60 1RF methocarbamol 750 mg tablet 750 mg PO TID PRN (Reason: back pain) Qty: 15 0RF levothyroxine 150 mcg tablet 150 mcg PO DAILY Rx Instructions: TAKE 1 TABLET BY MOUTH EVERY DAY metoprolol tartrate 50 mg Tablet 50 mg PO DAILY calcium carbonate-vitamin D3 [Calcium 600 + D(3)] 600 mg-10 mcg (400 unit) Tablet 1 tab PO DAILY levetiracetam 750 mg tablet 750 mg PO BID Rx Instructions: TAKE ONE TABLET BY MOUTH TWICE DAILY insulin glargine [Lantus U-100 Insulin] 100 unit/mL solution 15 unit SUBCUT DAILY Qty: 10 0RF pantoprazole 40 mg Tablet,Delayed Release (Dr/Ec) 40 mg PO Q12H 30 Days Qty: 60 0RF Discharge Orders: Discharge ED (Routine); Ordered 09/17/24 Ordered By: Kerry Jeter Referrals: Dorita Flaherty FNP [Primary Care Provider, Unknown] - 4-7 days Discharge Diet: Advance as tolerated Discharge Activity: Resume usual activity Patient Instructions: Abdominal Pain (ED) Print Language: Andorran Coding Level of Care Code 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
[2024-09-17 21:03] LABS: Basophils # 0.1 10^3/uL (0.0-0.1); Basophils % 1.3 %; Eosinophils # 0.2 10^3/uL (0.0-0.8); Eosinophils % 4.4 %; Hematocrit 40.3 % (37-53); Lymphocytes # 0.9 10^3/uL (0.8-4.8); Lymphocytes % 19.4 %; Mean Corpuscular HGB Conc 32.8 g/dL (30-55); Mean Corpuscular Hemoglobin 27.7 pg (27-33); Mean Corpuscular Volume 84.5 fl (82-101); Mean Platelet Volume 10.8 fL (7.4-10.4); Monocytes # 0.6 10^3/uL (0.2-0.9); Monocytes % 12.9 %; Neutrophils # 2.95 10^3/uL (1.8-7.7); Neutrophils % 61.6 %; Nucleated Red Blood Cells % 0 %; Platelet Count 87 10^3/cmm (157-399); Red Blood Count 4.77 10^6/uL (3.85-5.65); Red Cell Distribution Width 14.8 % (12.1-15.1); White Blood Count 4.79 10^3/uL (3.29-11.43)
[2024-09-17 21:21] LABS: Alanine Aminotransferase 32 U/L (0-41); Albumin Level 4.2 g/dL (3.5-5.2); Alkaline Phosphatase 133 U/L (40-130); Anion Gap 13.3 (5-19); Aspartate Amino Transferase 41 U/L (0-40); Blood Urea Nitrogen 17 mg/dL (6-20); Calcium 9.7 mg/dL (8.5-10.5); Carbon Dioxide 28 mmol/L (22-29); Chloride 101 mmol/L (98-107); Globulin 3.5 g/dL (1.3-4.6); Glomerular Filtration Rate 56.9 mL/min (90-130); Glucose 265 mg/dL (65-115); Lipase 53 U/L (13-60); Osmolality Calculated 297 mOsm/kg (285-295); Potassium 4.3 mmol/L (3.5-5.1); Sodium 138 mmol/L (136-145); Total Bilirubin 1.1 mg/dL (0.15-1.2); Total Protein 7.7 g/dL (6.6-8.7)
[2024-09-17] MEDS: ketorolac 30 mg/mL INJ 15 MG IVP (21:22)
[2024-09-17 21:23] LABS: Bacteria Urine None Seen /hpf; Hyaline Casts Urine 0-4 /lpf; RBC Urine 0-2 /hpf (0-2); Squamous Epithelial Cell Urine 0-5 /hpf (0-5); WBC Urine 0-5 /hpf (0-5)
[2024-09-17 21:24] VITALS: BP 153/84; PULSE 68; RESP 18; O2SAT 98
[2024-09-17 21:27] LABS: Add Urine Microscopic? YES; Bilirubin Urine Negative (Negative); Blood Urine Negative (Negative); Glucose Urine UA 2+ (Normal); Ketones Urine Negative (Negative); Leukocyte Esterase Urine Negative (Negative); Nitrate Urine Negative (Negative); Protein Urine Negative (Negative); Specific Gravity, Urine 1.014 (1.005-1.030); Urine Appearance Clear (CLEAR); Urine Color Yellow (Yellow)
[2024-09-17 22:32] VITALS: BP 121/70; PULSE 68; O2SAT 97
== END 2024-09-17 21:50 | disposition home or self-care (01) ==
PROVIDERS: Emergency Provider Emergency Medicine; PCP Nurse Practitioner Family
DX: R10.9 Unspecified abdominal pain (principal); Z79.82 Long term (current) use of aspirin; Z79.4 Long term (current) use of insulin; Z72.0 Tobacco use; I25.118 Atherosclerotic heart disease of native coronary artery with other forms of angina pectoris; E11.9 Type 2 diabetes mellitus without complications; I10 Essential (primary) hypertension
CPT/HCPCS: 80053; 81001; 83690; 85025; 96374; 99284; J1885

== ENCOUNTER → 2024-09-24 08:30 | Outpatient (BNVA) | payer MEDICAID, SELFPAY | PROVIDERS: PCP Nurse Practitioner Family; Visit Provider Internal Medicine | DX: E11.65 Type 2 diabetes mellitus with hyperglycemia (principal); E03.8 Other specified hypothyroidism; E06.3 Autoimmune thyroiditis | CPT/HCPCS: 99214 ==

== ENCOUNTER → 2024-09-29 15:15 | Outpatient (BNVA) | payer MEDICAID, SELFPAY | PROVIDERS: PCP Nurse Practitioner Family; Visit Provider Nurse Practitioner Family | DX: M54.16 Radiculopathy, lumbar region (principal); G89.29 Other chronic pain; M47.816 Spondylosis without myelopathy or radiculopathy, lumbar region; M54.42 Lumbago with sciatica, left side; M54.41 Lumbago with sciatica, right side | CPT/HCPCS: 99214 ==

== ENCOUNTER → 2024-10-20 13:51 | Outpatient (BNVA) | payer MEDICAID, SELFPAY | PROVIDERS: PCP Nurse Practitioner Family; Visit Provider Anesthesiology Pain Medicine | DX: M54.16 Radiculopathy, lumbar region (principal); G89.29 Other chronic pain | CPT/HCPCS: 64483; 64484; J1100; J3490; J9999 ==

== ENCOUNTER → 2024-12-02 09:19 | Outpatient (BNVA) | payer MEDICAID, SELFPAY | PROVIDERS: PCP Nurse Practitioner Family; Visit Provider Podiatrist Foot & Ankle Surgery | DX: L60.3 Nail dystrophy (principal); E11.42 Type 2 diabetes mellitus with diabetic polyneuropathy; M21.41 Flat foot [pes planus] (acquired), right foot; M21.42 Flat foot [pes planus] (acquired), left foot; L60.0 Ingrowing nail; Z79.4 Long term (current) use of insulin | CPT/HCPCS: 11721; 99213 ==

== ENCOUNTER → 2024-12-24 07:47 | Outpatient (BNVA) | payer MEDICAID, SELFPAY | PROVIDERS: PCP Nurse Practitioner Family; Visit Provider Internal Medicine | DX: E06.3 Autoimmune thyroiditis (principal); R63.5 Abnormal weight gain; I86.8 Varicose veins of other specified sites; E74.39 Other disorders of intestinal carbohydrate absorption | CPT/HCPCS: 36415; 80053; 80061; 82044; 83036; 84439; 84443; 99214 ==

== ENCOUNTER 2025-01-20 11:22 | Oncology outpatient (recurring) (ONCR) | payer MEDICAID, SELFPAY ==
[2025-01-20 11:48] LABS: Hematocrit 41.6 % (37-53); Hemoglobin 14.20 g/dL (11.27-16.99); Mean Corpuscular HGB Conc 34.1 g/dL (30-55); Mean Corpuscular Hemoglobin 29.9 pg (27-33); Mean Corpuscular Volume 87.6 fl (82-101); Nucleated Red Blood Cells % 0 %; Platelet Count 93 10^3/cmm (157-399); Red Blood Count 4.75 10^6/uL (3.85-5.65); White Blood Count 6.37 10^3/uL (3.29-11.43)
[2025-01-20 12:05] LABS: INR 1.25 (0.8-1.2); Prothrombin Time 16.60 SECONDS (12.1-14.9)
[2025-01-20 12:26] LABS: Alanine Aminotransferase 25 U/L (0-41); Albumin Level 4.2 g/dL (3.5-5.2); Alkaline Phosphatase 98 U/L (40-130); Anion Gap 10.4 (5-19); Aspartate Amino Transferase 27 U/L (0-40); Blood Urea Nitrogen 13 mg/dL (6-20); Calcium 9.7 mg/dL (8.5-10.5); Carbon Dioxide 31 mmol/L (22-29); Chloride 103 mmol/L (98-107); Ferritin 19 ng/mL (30-400); Globulin 3.2 g/dL (1.3-4.6); Glucose 218 mg/dL (65-115); Iron 92 ug/dL (59-158); Osmolality Calculated 297 mOsm/kg (285-295); Potassium 4.4 mmol/L (3.5-5.1); Sodium 140 mmol/L (136-145); Total Iron Binding Capacity 359 mcg/dl; Total Protein 7.4 g/dL (6.6-8.7); Unsaturated Iron Binding 267 ug/dL (112-347); Vitamin B12 454 pg/mL (232-1245)
== END 2025-02-08 23:59 | disposition home or self-care (01) ==
PROVIDERS: Internal Medicine; Nurse Practitioner; PCP Nurse Practitioner Family; Visit Provider Anesthesiology Pain Medicine
DX: D69.6 Thrombocytopenia, unspecified (principal); R79.89 Other specified abnormal findings of blood chemistry; E03.8 Other specified hypothyroidism; E06.3 Autoimmune thyroiditis; K74.60 Unspecified cirrhosis of liver; R18.8 Other ascites; K76.6 Portal hypertension; R16.1 Splenomegaly, not elsewhere classified; Z79.899 Other long term (current) drug therapy
CPT/HCPCS: 36415; 80053; 82607; 82728; 82746; 83010; 83540; 83550; 83615; 85025; 85610; 99215; G0103

== ENCOUNTER 2025-01-30 12:25 | Emergency (ER) | payer MEDICAID, SELFPAY ==
--- OUTSIDE RECORDS SUMMARY | 2012-12-08 11:00 | XMS_ITS | Continuity of Care Document ---
Author Organization [facility] Address [address] [place] [address] Phone Care Team Providers Care Vamp Strap Ironer Name Role Phone Ruben OTR/L, CHT, Pepper Unavailable Unavailable Procedures Procedure Date OT EVALUATION THERAPEUTIC EXERCISES ORTHOTIC FITTING Forearm Non-compressive stockinette per foot Nov Advance Directives Directive Yes / No Effective Date File Name No Information Encounters Encounter Description Practice Location Reason(s) For Visit Diagnoses Date Provider Providers Copied on Encounter [facility], [address] [place], [place] [address], [place], [place], [id number], tel:[phone] [place] Pain in joint involving hand 0201 3 Ruben Pabon. [address] [facility], [address], [place], [address], . tel:[phone] Referring Provider: Pb Live [address] [facility] Suite [facility] [place], [address]. tel:[phone] Family History Family Member Type Diagnosis Age At Onset No Information Payers Payer name Insurance type Covered democrat ID Errol vance(s) Aetna CI [id number] [facility] 2012 Social History Type Description Quantity Date [...]
--- OUTSIDE RECORDS SUMMARY | 2016-02-20 04:45 | XMS_ITS | Continuity of Care Document ---
Author Organization [facility] Address [address] [place] [address] [address] [place] [address] Phone Care Team Providers Care Operations Trainer Name Role Phone Anatoly Whitmore MD Unavailable [...] Provider Providers Copied on Encounter [facility], [address] [place] [address], [place], [place], [address], tel:[phone] OPH CONSULT ZACH DE LA TORRE lid lesion (chief complaint) Papilloma of right eyelid Amanda Ledbetter. [address] [place] [address], [facility] 201, [place], [address], [place]. tel:[phone] Referring Provider: Anatoly Nicolas, [address] [place] [address] 201, [place], [address]. tel:[phone] Family History Family Member Type Diagnosis Age At Onset No Information Payers Payer name Insurance type Covered constitution party ID Authoriza tion(s) AETNA CI [id number] Social History Type Description Quantity Date Captured [...] The condition is significant. Pt states BENJY [place] to have the lesion evaluated. Pt denies [...] The condition is significant. Pt states BENJY [place] to have the lesion evaluated. Pt denies [...]
--- OUTSIDE RECORDS SUMMARY | 2025-01-30 12:28 | XMS_ITS | Clinical Summary ---
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
--- NOTE | 2025-01-30 12:37 | W.ED.BACK ---
HPI - Back Pain/Injury General: Chief Complaint: Back Pain/Injury Stated Complaint: lower back pain Time Seen by Provider: 01/30/25 12:29 Source: patient Mode of arrival: ambulatory Limitations: no limitations History of Present Illness: 60-year-old male states been having right lower back pain since last night. States pains been sharp in nature he rates it a 6 out of 10 he denies any bowel or bladder incontinence he is able to ambulate but states it is worse with movement. He denies any injuries. Associated symptoms: Deny abdominal pain, chills, fever(s), nausea or vomiting Related Data Home Medications ?Medication ?Instructions ?Recorded ?Confirmed allopurinol 100 mg tablet 100 mg PO DAILY PRN GOUT 12/13/20 01/20/25 levothyroxine 150 mcg tablet 150 mcg PO DAILY 02/18/24 01/20/25 calcium 600 mg (as 1 tab PO DAILY 05/29/24 01/20/25 carbonate)-vitamin D3 10 mcg (400 unit) tablet (Calcium 600 + D(3)) metoprolol tartrate 50 mg tablet 50 mg PO DAILY 05/29/24 01/20/25 atorvastatin 40 mg tablet (Lipitor) 40 mg PO BID 07/29/24 01/20/25 escitalopram oxalate 5 mg tablet 5 mg PO DAILY 07/29/24 01/20/25 hydroxyzine HCl 25 mg tablet 25 mg PO BID PRN 07/29/24 01/20/25 lactulose 10 gram/15 mL oral 15 g PO BID 07/29/24 01/20/25 solution sucralfate 1 gram tablet 1 g PO BID 07/29/24 01/20/25 Previous Rx's ?Medication ?Instructions ?Recorded methocarbamol 750 mg tablet 750 mg PO TID PRN back pain #15 04/14/23 tabs aspirin 81 mg chewable tablet 81 mg PO DAILY@0700 #90 tabs 08/01/23 clopidogrel 75 mg tablet (Plavix) 75 mg PO DAILY@0700 #90 tabs 08/01/23 nitroglycerin 0.4 mg sublingual 0.4 mg sublingual Q5M PRN chest 08/01/23 tablet pain 30 days #30 tabs bacitracin 500 unit/gram topical 1 applic topical DAILY #14 grams 09/25/23 ointment insulin glargine 100 unit/mL 15 unit (0.15 mL) SUBCUT DAILY #10 06/14/24 subcutaneous solution (Lantus mL U-100 Insulin) pantoprazole 40 mg tablet,delayed 40 mg PO Q12H 30 days #60 tabs 06/14/24 release isosorbide mononitrate 30 mg 30 mg PO DAILY #90 tabs 06/16/24 tablet,extended release 24 hr acetaminophen 650 mg 650 mg PO Q8H PRN pain #30 tabs 06/21/24 tablet,extended release (Tylenol Arthritis Pain) lisinopril 20 mg tablet 40 mg (2 x 20 mg) PO DAILY #60 tabs 06/21/24 multivitamin (Daily Multi-Vitamin 1 tab PO QAM #60 tabs 07/29/24 tablet) acetaminophen 300 mg-codeine 30 mg 1 tab PO Q8H PRN pain 7 days #21 08/12/24 tablet tabs silver sulfadiazine 1 % topical 1 applic topical DAILY 2 weeks #50 08/12/24 cream grams insulin lispro 100 unit/mL 3 unit (0.03 mL) SUBCUT TID #15 mL 10/05/24 subcutaneous pen (Humalog KwikPen (U-100) Insulin) levetiracetam 1,000 mg tablet 1,000 mg PO BID 90 days #180 tabs 12/02/24 (Keppra) naproxen 500 mg tablet (Naprosyn) 500 mg PO BID PRN pain #20 tabs 01/30/25 Allergies Allergy/AdvReac Type Severity Reaction Status Date / Time cephalexin (From Keflex) Allergy Unknown Verified 01/20/25 12:21 Cephalosporins Allergy hives Verified 01/20/25 12:21 Review of Systems Const: Denies: fever(s), chills, body aches or change in appetite Card: Denies: chest pain GI: Denies: abdominal pain, nausea, vomiting or diarrhea Musc: Reports: back pain; Denies: neck pain Skin/Breast: Denies: rash Neuro: Denies: headache(s) PFSH ED PFSH: Medical History Thrombocytopenia 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 Chest pain Unstable angina 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 History of opioid abuse Mild cognitive impairment with memory loss Lacunar stroke Splenomegaly Erectile dysfunction Hepatosplenomegaly Enlarged prostate Acute kidney injury Coronary artery disease Chronic low back pain Dyslipidemia Benign essential hypertension with target blood pressure below 140/90 Type 2 diabetes mellitus Atypical chest pain Epilepsy Obesity Glucose intolerance Smoker Hypothyroidism Surgical History History of cholecystectomy H/O eye surgery right eye History of PTCA H/O heart artery stent 07/11/2020-Cardiac stent placement mid LAD H/O umbilical hernia repair History of appendectomy Family History Father , at age 74 Family history of premature coronary artery disease Had a myocardial infarction in his 40s. Diabetes CAD (coronary artery disease) Chronic kidney disease (CKD) Stroke Brother Family history of premature coronary artery disease CAD (coronary artery disease) Had DE in the 50s Diabetes Stroke Grandmother CAD (coronary artery disease) Diabetes Grandfather CAD (coronary artery disease) Mother , at age 84 CAD (coronary artery disease) Cancer Diabetes COVID-19 Family/Other Lung disease Denies family history of Clotting disorder Dementia Suicide Anesthesia complication Bleeding disorder Social History Smoking and tobacco/nicotine status: current every day tobacco/nicotine user Alcohol intake: current Alcohol intake frequency: holidays/special occasions only Substance/Drug Use: never Household members: spouse Housing: House Marital status: Current occupational status: disabled Physical Exam Const: COMMON NORMALS: no acute distress, patient oriented x3 and healthy appearing HENMT: COMMON NORMALS: normocephalic and atraumatic HEAD & SCALP: normocephalic and atraumatic Eye: COMMON NORMALS: conjunctivae normal CONJUNCTIVA: Yes conjunctivae normal Neck/C-Spine: COMMON NORMALS: full ROM and supple Chest: COMMONS NORMALS: normal inspection of the chest Resp: COMMON NORMALS: normal respiratory effort Cardio: COMMON NORMALS: regular rate RATE: regular rate Back/Pelvis: OTHER: Tenderness over right lower back no midline tenderness no saddle anesthesia Extremity: COMMON NORMALS: normal to inspection and full ROM Neuro: COMMON NORMALS: patient oriented x3, moves all extremities and no focal motor deficits Psych: COMMON NORMALS: mental status grossly normal, Normal thought process present and cooperative THOUGHT PROCESS: Normal thought process present Skin: COMMON NORMALS: no rashes or lesions noted and no wounds GENERAL SKIN EXAM: no rashes or lesions noted Course Vital Signs: Vital signs: Vital Signs Temperature 97.8 F 01/30/25 12:38 Pulse Rate 61 01/30/25 12:38 Respiratory Rate 18 01/30/25 12:38 Blood Pressure 140/91 01/30/25 12:38 Pulse Oximetry 100 01/30/25 12:38 Oxygen Delivery Me thod Room Air 01/30/25 12:38 MDM - Back Pain/Injury Medical Decision Making Patient presents here with low back pain is likely muscular in nature. He has no sciatica he has no signs of cord compression no signs of epidural abscess. Will place him on Naprosyn he stable for discharge did give him a [place] here along with a muscle relaxant he is to follow-up with PCP and return if worsening Differential Diagnosis Likely strain of lumbar region; Unlikely lumbar radiculopathy, sciatica, renal colic or pyelonephritis No radiology studies performed this visit Discharge Plan Discharge Patient Disposition: Home Clinical Impression: Low back pain Qualifiers: Chronicity: acute Back pain laterality: right Sciatica presence: without sciatica Qualified Code(s): M54.50 - Low back pain, unspecified Condition: Stable Prescriptions: New naproxen [Naprosyn] 500 mg tablet 500 mg PO BID PRN (Reason: pain) Qty: 20 0RF No Action allopurinol 100 mg tablet 100 mg PO DAILY PRN (Reason: GOUT) isosorbide mononitrate 30 mg tablet extended release 24 hr 30 mg PO DAILY Qty: 90 3RF atorvastatin [Lipitor] 40 mg tablet 40 mg PO BID sucralfate 1 gram tablet 1 g PO BID hydroxyzine HCl 25 mg tablet 25 mg PO BID PRN escitalopram oxalate 5 mg tablet 5 mg PO DAILY lactulose 10 gram/15 mL solution 15 g PO BID multivitamin [Daily Multi-Vitamin] Tablet 1 tab PO QAM Qty: 60 0RF silver sulfadiazine 1 % cream 1 applic topical DAILY 14 Days Qty: 50 0RF Rx Instructions: apply a 1.5 mm thickness acetaminophen-codeine 300-30 mg tablet 1 tab PO Q8H PRN (Reason: pain) 7 Days Qty: 21 0RF Plavix 75 mg tablet 75 mg PO DAILY@0700 Qty: 90 3RF nitroglycerin 0.4 mg tablet, sublingual 0.4 mg SUBLINGUAL Q5M PRN (Reason: chest pain) 30 Days Qty: 30 3RF Rx Instructions: until response; do not exceed 3 doses per episode aspirin 81 mg tablet,chewable 81 mg PO DAILY@0700 Qty: 90 3RF insulin lispro [Humalog KwikPen Insulin] 100 unit/mL insulin pen 3 unit SUBCUT TID Qty: 15 3RF levetiracetam [Keppra] 1,000 mg tablet 1,000 mg PO BID 90 Days Qty: 180 3RF bacitracin 500 unit/gram ointment 1 applic topical DAILY Qty: 14 0RF acetaminophen [Tylenol Arthritis Pain] 650 mg tablet extended release 650 mg PO Q8H PRN (Reason: pain) Qty: 30 0RF lisinopril 20 mg Tablet 40 mg PO DAILY Qty: 60 1RF methocarbamol 750 mg tablet 750 mg PO TID PRN (Reason: back pain) Qty: 15 0RF levothyroxine 150 mcg tablet 150 mcg PO DAILY Rx Instructions: TAKE 1 TABLET BY MOUTH EVERY DAY metoprolol tartrate 50 mg Tablet 50 mg PO DAILY calcium carbonate-vitamin D3 [Calcium 600 + D(3)] 600 mg-10 mcg (400 unit) Tablet 1 tab PO DAILY insulin glargine [Lantus U-100 Insulin] 100 unit/mL solution 15 unit SUBCUT DAILY Qty: 10 0RF pantoprazole 40 mg Tablet,Delayed Release (Dr/Ec) 40 mg PO Q12H 30 Days Qty: 60 0RF Discharge Orders: Discharge ED (Routine); Ordered 01/30/25 Ordered By: Kerry Jeter Referrals: Dorita Flaherty FNP [Primary Care Provider, Unknown] - 4-7 days Discharge Diet: Advance as tolerated Discharge Activity: Resume usual activity Patient Instructions: Acute Low Back Pain (ED), Back Pain (ED) Print Language: Mexican Coding Level of Care Code ED Data Security Analyst for Marva Bunn
[2025-01-30 12:38] VITALS: BP 140/91; PULSE 61; RESP 18; TEMP 36.6; O2SAT 100
[2025-01-30] MEDS: HYDROcodone-acetaminophen 5-325 mg Tablet 1 TAB PO (12:46)
== END 2025-01-30 13:14 | disposition home or self-care (01) ==
PROVIDERS: Emergency Provider Emergency Medicine; PCP Nurse Practitioner Family
DX: M54.50 Low back pain, unspecified (principal)
CPT/HCPCS: 96372; 99284; J1100; J9999

== ENCOUNTER 2025-02-06 17:58 | Emergency (ER) | payer MEDICAID, SELFPAY ==
--- OUTSIDE RECORDS SUMMARY | 2012-12-08 11:00 | XMS_ITS | Continuity of Care Document ---
Author Organization [facility] Address [address] [facility] [address] [place] [address] Phone Care Team Providers Care Power Generation Engineer Name Role Phone Ruben OTR/L, CHT, Pepper Unavailable Unavailable Procedures Procedure Date OT EVALUATION THERAPEUTIC EXERCISES ORTHOTIC FITTING Forearm Non-compressive stockinette per foot Nov Advance Directives Directive Yes / No Effective Date File Name No Information Encounters Encounter Description Practice Location Reason(s) For Visit Diagnoses Date Provider Providers Copied on Encounter [facility], [address] [place], [place] [address], [place], [place], [address], tel:[phone] [place] Pain in joint involving hand 0201 3 Ruben Pabon. [address] [facility], [address], [place], [address], . tel:[phone] Referring Provider: Pb Live 224 [facility] Suite [facility] [place], [address]. tel:[phone] Family History Family Member Type Diagnosis Age At Onset No Information Payers Payer name Insurance type Covered alliance party ID Errol vance(s) Aetna CI [id number] [facility] 2012 Social History Type Description Quantity Date [...]
--- OUTSIDE RECORDS SUMMARY | 2016-02-20 04:45 | XMS_ITS | Continuity of Care Document ---
Author Organization [facility] Address [address] [place] [address] [address] [place] [address] Phone Care Team Providers Care Roustabout Crew Leader Name Role Phone Anatoly Whitmore MD Unavailable [...] Provider Providers Copied on Encounter [facility], [address] [place] [address], [place], [place], [address], tel:[phone] OPH CONSULT ZACH DE LA TORRE lid lesion (chief complaint) Papilloma of right eyelid Amanda Ledbetter. [address] [place] [address], [facility] 201, [place], [address], [place]. tel:[phone] Referring Provider: Anatoly Nicolas, [address] [place] [address] 201, [place], [address]. tel:[phone] Family History Family Member Type Diagnosis Age At Onset No Information Payers Payer name Insurance type Covered libertarian ID Authoriza tion(s) AETNA CI [id number] Social History Type Description Quantity Date Captured [...] The condition is significant. Pt states BENJY [place] to have the lesion evaluated. Pt denies [...] The condition is significant. Pt states BENJY [place] to have the lesion evaluated. Pt denies [...]
[2025-02-06] VITALS (9 sets, daily range): BP systolic 96–140; BP diastolic 63–100; PULSE 61–81; RESP 12–17; TEMP 36.7; O2SAT 94–97; BMI 25.8
--- NOTE | 2025-02-06 18:11 | ECG_ITS ---
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 Measurements Intervals [place] Rate: 75 P: 27 NV: 159 QRS: 104 QRSD: 92 T: 1 QT: 405 QTc: 453 Interpretive Statements SINUS RHYTHM POSSIBLE INFERIOR INFARCTION, OLD Compared to ECG 07/13/2024 17:27:49 Sinus bradycardia no longer present Electronically Signed On 02-07-2025 12:49:33 CDT by Domingo Razo M.D. [id number]
--- NOTE | 2025-02-06 18:11 | XRR_ITS ---
PROCEDURE INFORMATION: Exam: XR Chest Exam date and time: 02/06/2025 6:13 PM Age: 60 years old Clinical indication: Pain; Chest pressure; Additional info: Chest pain TECHNIQUE: Imaging protocol: Radiologic exam of the chest. Views: 1 view. COMPARISON: CR XR chest 1V portable [id number] 07/13/2024 4:00 PM FINDINGS: Lungs: Calcified granuloma in the right lower lung zone. No consolidation. Pleural spaces: Unremarkable. No pleural effusion. No pneumothorax. Heart/Mediastinum: Unremarkable. No cardiomegaly. Bones/joints: Unremarkable. XR/XR chest 1V portable [id number] IMPRESSION: No acute findings.
--- OUTSIDE RECORDS SUMMARY | 2025-02-06 18:15 | XMS_ITS | Clinical Summary ---
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
[2025-02-06 18:17] LABS: Hematocrit 42.8 % (37-53); Hemoglobin 14.40 g/dL (11.27-16.99); Mean Corpuscular HGB Conc 33.6 g/dL (30-55); Mean Corpuscular Hemoglobin 29.4 pg (27-33); Mean Corpuscular Volume 87.5 fl (82-101); Nucleated Red Blood Cells % 0 %; Platelet Count 96 10^3/cmm (157-399); Red Blood Count 4.89 10^6/uL (3.85-5.65); White Blood Count 6.73 10^3/uL (3.29-11.43)
[2025-02-06] MEDS: morphine 4 mg/mL SDV 1 mL IVP (18:22)
[2025-02-06 18:32] LABS: Alanine Aminotransferase 34 U/L (0-41); Albumin Level 4.3 g/dL (3.5-5.2); Alkaline Phosphatase 105 U/L (40-130); Aspartate Amino Transferase 39 U/L (0-40); Blood Urea Nitrogen 16 mg/dL (6-20); Calcium 9.9 mg/dL (8.5-10.5); Carbon Dioxide 28 mmol/L (22-29); Chloride 100 mmol/L (98-107); Creatinine Clr Calc Pharmacy 79.1619; Globulin 3.5 g/dL (1.3-4.6); Glucose 137 mg/dL (65-115); Lipase 42 U/L (13-60); Osmolality Calculated 287 mOsm/kg (285-295); Sodium 137 mmol/L (136-145); Total Protein 7.8 g/dL (6.6-8.7)
[2025-02-06 18:33] LABS: Troponin(5th) Baseline 21 ng/L (0-15)
[2025-02-06 18:35] LABS: Anion Gap 13.0 (5-19); Potassium 4.0 mmol/L (3.5-5.1)
--- NOTE | 2025-02-06 18:35 | W.ED.CHESTPA ---
Documented by User: AURELIO Neri 02/06/25 23:18 HPI - Chest Pain General: Chief Complaint: Chest Pain Stated Complaint: chest pain Time Seen by Provider: 02/06/25 18:00 Source: patient and old records reviewed Mode of arrival: EMS Limitations: no limitations History of Present Illness: Patient is a 60-year-old male who is well-known to the emergency department here arrived by ambulance with complaints of chest pain that started about an hour prehospital. He arrives from independent living, where he states he started have a chest pain was smoking a cigarette. He has had this pain in the past, has been seen in the emergency department previously for this as well and sees Dr. Lugo. He states he has a history of coronary stents, no personal history of heart attacks. He was given 1 sublingual nitroglycerin by EMS, and 324 of aspirin and states this did not help his pain much. Notes that the pain is centrally located, radiates through to the back as well as to his left arm. Notes that he is not having any significantly short of breath, and has chronic cough from smoking. Denies history of COPD but states he is supposed to wear CPAP at night. Reviewing his past medical history, appears that he had echocardiogram, nuc med test, and stress test in July of this year that all were unremarkable. He is requesting something for back pain at this time, his vitals are stable. No lightheadedness, dizziness, diaphoresis, syncope, abdominal pain, nausea/vomiting, or other symptoms reported at this time. 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 Onset (ago): hour(s) Timing of current episode: still present Prior episodes: Yes Onset: other (While smoking a cigarette) Pain location: substernal Pain radiation: left arm and back Severity: similar to previous episodes Quality: sharp Relieving factors: nothing Exacerbating factors: nothing Associated symptoms: Reports no associated symptoms; Deny abdominal pain, dyspnea, fever(s), nausea, palpitations or vomiting Treatment prior to arrival: aspirin and nitroglycerin Related Data Home Medications ?Medication ?Instructions ?Recorded ?Confirmed allopurinol 100 mg tablet 100 mg PO DAILY PRN GOUT 12/13/20 01/20/25 levothyroxine 150 mcg tablet 150 mcg PO DAILY 02/18/24 01/20/25 calcium 600 mg (as 1 tab PO DAILY 05/29/24 01/20/25 carbonate)-vitamin D3 10 mcg (400 unit) tablet (Calcium 600 + D(3)) metoprolol tartrate 50 mg tablet 50 mg PO DAILY 05/29/24 01/20/25 atorvastatin 40 mg tablet (Lipitor) 40 mg PO BID 07/29/24 01/20/25 escitalopram oxalate 5 mg tablet 5 mg PO DAILY 07/29/24 01/20/25 hydroxyzine HCl 25 mg tablet 25 mg PO BID PRN 07/29/24 01/20/25 lactulose 10 gram/15 mL oral 15 g PO BID 07/29/24 01/20/25 solution sucralfate 1 gram tablet 1 g PO BID 07/29/24 01/20/25 Previous Rx's ?Medication ?Instructions ?Recorded methocarbamol 750 mg tablet 750 mg PO TID PRN back pain #15 04/14/23 tabs aspirin 81 mg chewable tablet 81 mg PO DAILY@0700 #90 tabs 08/01/23 clopidogrel 75 mg tablet (Plavix) 75 mg PO DAILY@0700 #90 tabs 08/01/23 nitroglycerin 0.4 mg sublingual 0.4 mg sublingual Q5M PRN chest 08/01/23 tablet pain 30 days #30 tabs bacitracin 500 unit/gram topical 1 applic topical DAILY #14 grams 09/25/23 ointment insulin glargine 100 unit/mL 15 unit (0.15 mL) SUBCUT DAILY #10 06/14/24 subcutaneous solution (Lantus mL U-100 Insulin) pantoprazole 40 mg tablet,delayed 40 mg PO Q12H 30 days #60 tabs 06/14/24 release isosorbide mononitrate 30 mg 30 mg PO DAILY #90 tabs 06/16/24 tablet,extended release 24 hr acetaminophen 650 mg 650 mg PO Q8H PRN pain #30 tabs 06/21/24 tablet,extended release (Tylenol Arthritis Pain) lisinopril 20 mg tablet 40 mg (2 x 20 mg) PO DAILY #60 tabs 06/21/24 multivitamin (Daily Multi-Vitamin 1 tab PO QAM #60 tabs 07/29/24 tablet) acetaminophen 300 mg-codeine 30 mg 1 tab PO Q8H PRN pain 7 days #21 08/12/24 tablet tabs silver sulfadiazine 1 % topical 1 applic topical DAILY 2 weeks #50 08/12/24 cream grams insulin lispro 100 unit/mL 3 unit (0.03 mL) SUBCUT TID #15 mL 10/05/24 subcutaneous pen (Humalog KwikPen (U-100) Insulin) levetiracetam 1,000 mg tablet 1,000 mg PO BID 90 days #180 tabs 12/02/24 (Keppra) naproxen 500 mg tablet (Naprosyn) 500 mg PO BID PRN pain #20 tabs 01/30/25 Allergies Allergy/AdvReac Type Severity Reaction Status Date / Time cephalexin (From Keflex) Allergy Unknown Verified 01/20/25 12:21 Cephalosporins Allergy hives Verified 01/20/25 12:21 Review of Systems General: Reports: 10 or more systems reviewed and unremarkable except in HPI and below Const: Denies: fever(s), chills or fatigue Eyes: Denies: change in vision ENMT: Denies: throat pain, ear or mastoid pain or nasal discharge Card: Reports: chest pain; Denies: palpitations, swelling of feet/ankles or lightheadedness Resp: Reports: non-productive cough; Denies: dyspnea, productive cough or wheezing GI: Denies: abdominal pain, nausea, vomiting, diarrhea or constipation : Denies: flank pain, difficulty urinating, dysuria or urinary frequency Musc: Reports: back pain and extremity pain (LUE); Denies: neck pain or joint pain Skin/Breast: Denies: rash Neuro: Denies: headache(s), numbness in extremities or weakness in extremities PFSH ED PFSH: Medical History Thrombocytopenia 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 Chest pain Unstable angina 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 History of opioid abuse Mild cognitive impairment with memory loss Lacunar stroke Splenomegaly Erectile dysfunction Hepatosplenomegaly Enlarged prostate Acute kidney injury Coronary artery disease Chronic low back pain Dyslipidemia Benign essential hypertension with target blood pressure below 140/90 Type 2 diabetes mellitus Atypical chest pain Epilepsy Obesity Glucose intolerance Smoker Hypothyroidism Surgical History History of cholecystectomy H/O eye surgery right eye History of PTCA H/O heart artery stent 07/11/2020-Cardiac stent placement mid LAD H/O umbilical hernia repair History of appendectomy Family History Father , at age 74 Family history of premature coronary artery disease Had a myocardial infarction in his 40s. Diabetes CAD (coronary artery disease) Chronic kidney disease (CKD) Stroke Brother Family history of premature coronary artery disease CAD (coronary artery disease) Had AL in the 50s Diabetes Stroke Grandmother CAD (coronary artery disease) Diabetes Grandfather CAD (coronary artery disease) Mother , at age 84 CAD (coronary artery disease) Cancer Diabetes COVID-19 Family/Other Lung disease Denies family history of Clotting disorder Dementia Suicide Anesthesia complication Bleeding disorder Social History Smoking and tobacco/nicotine status: current every day tobacco/nicotine user Alcohol intake: current Alcohol intake frequency: holidays/special occasions only Substance/Drug Use: never Household members: spouse Housing: House Marital status: Current occupational status: disabled Physical Exam Const: COMMON NORMALS: no acute distress, patient oriented x3 and no limitations GENERAL APPEARANCE: cooperative, comfortable and well developed ORIENTATION/CONSCIOUSNESS: Yes awake, Yes oriented to person, Yes oriented to place and Yes oriented to time HENMT: COMMON NORMALS: normocephalic, atraumatic and hearing grossly normal bilaterally HEAD & SCALP: normocephalic and atraumatic Eye: COMMON NORMALS: Equal, round and reactive pupils present, EOMs intact bilaterally and conjunctivae normal CONJUNCTIVA: Yes conjunctivae normal PUPIL: Yes Equal, round and reactive pupils present Neck/C-Spine: COMMON NORMALS: full ROM, supple and no JVD Resp: COMMON NORMALS: normal respiratory effort, No retractions, No use of accessory muscles and clear to auscultation bilaterally AUSCULTATION: clear to auscultation bilaterally Cardio: COMMON NORMALS: no JVD, regular rate, regular rhythm, No clicks present (Cardio), No murmurs present (Cardio) and No rub (Cardio) RATE: regular rate RHYTHM: regular rhythm GI: COMMON NORMALS: Normal to inspection, nondistended, normoactive bowel sounds present, Soft to palpation and non-tender AUSCULTATION: Yes normoactive bowel sounds PALPATION: Yes Soft to palpation RECTAL EXAM: Yes deferred Extremity: COMMON NORMALS: normal to inspection, full ROM and capillary refill normal Neuro: COMMON NORMALS: patient oriented x3, moves all extremities, no focal motor deficits and no sensory deficits noted SENSORIUM/ORIENTATION: Yes oriented to person, Yes oriented to place and Yes oriented to time Skin: COMMON NORMALS: no rashes or lesions noted GENERAL SKIN EXAM: no rashes or lesions noted Course Vital Signs: Vital signs: Vital Signs Temperature 98.0 F 02/06/25 17:59 Pulse Rate 81 02/06/25 21:38 Respiratory Rate 12 02/06/25 21:30 Blood Pressure 137/89 02/06/25 21:38 Pulse Oximetry 96 02/06/25 21:38 Oxygen Delivery Me thod Room Air 02/06/25 20:00 MDM - Chest Pain Medical Decision Making This patient well-known to the emergency department presenting by ambulance for chest pain. Was given sublingual nitro and aspirin prehospital, did not improve his pain. In July of this year he had nuc med myocardial perfusion, sestamibi stress test, and echocardiogram all of which were reviewed here and appear to be unremarkable. A chest x-ray was negative here, EKG reviewed with physician showing normal sinus rhythm with no acute ST segment changes. Delta troponin is negative, rest of his lab work reassuring. Throughout ED stay his primary complaint has been acute on chronic back pain, he has requested pain meds for this and this was controlled here in the ED. He is informed to follow-up with primary care for reevaluation, I feel that admission to the hospital not warranted at this time due to his recent workup in the past 6 months, though he is informed to return with any new or worsening. Lab Data 02/06/25 18:08 02/06/25 18:08 Radiology Impressions Chest X-Ray 02/06/25 18:11 IMPRESSION: No acute findings. Laboratory Results WBC 6.73 10^3/uL (3.29-11.43) 02/06/25 18:08 RBC 4.89 10^6/uL (3.85-5.65) 02/06/25 18:08 Hgb 14.40 g/dL (11.27-16.99) 02/06/25 18:08 Hct 42.8 % (37-53) 02/06/25 18:08 MCV 87.5 fl (82-101) 02/06/25 18:08 MCH 29.4 pg (27-33) 02/06/25 18:08 MCHC 33.6 g/dL (30-55) 02/06/25 18:08 RDW 13.5 % (12.1-15.1) 02/06/25 18:08 Plt Count 96 10^3/cmm (157-399) L 02/06/25 18:08 MPV 11.5 fL (7.4-10.4) H 02/06/25 18:08 Neut % (Auto) 67.1 % 02/06/25 18:08 Lymph % (Auto) 16.2 % 02/06/25 18:08 Bleck[place] % (Auto) 9.7 % 02/06/25 18:08 Eos % (Auto) 5.1 % 02/06/25 18:08 Baso % (Auto) 1.2 % 02/06/25 18:08 Neut # (Auto) 4.52 10^3/uL (1.8-7.7) 02/06/25 18:08 Lymph # (Auto) 1.1 10^3/uL (0.8-4.8) 02/06/25 18:08 [place]ck[place] # (Auto) 0.7 10^3/uL (0.2-0.9) 02/06/25 18:08 Eos # (Auto) 0.3 10^3/uL (0.0-0.8) 02/06/25 18:08 Baso # (Auto) 0.1 10^3/uL (0.0-0.1) 02/06/25 18:08 Nucleated RBC % (auto) 0 % 02/06/25 18:08 Nucleated RBCs # 0.0 /100WBC 02/06/25 18:08 Sodium 137 mmol/L (136-145) 02/06/25 18:08 Potassium 4.0 mmol/L (3.5-5.1) 02/06/25 18:08 Chloride 100 mmol/L (98-107) 02/06/25 18:08 Carbon Dioxide 28 mmol/L (22-29) 02/06/25 18:08 Anion Gap 13.0 (5-19) 02/06/25 18:08 BUN 16 mg/dL (6-20) 02/06/25 18:08 Creatinine 1.1 mg/dL (0.7-1.2) 02/06/25 18:08 GFR Calculation 68.8 mL/min (90-130) L 02/06/25 18:08 Glucose 137 mg/dL (65-115) H 02/06/25 18:08 Calculated Osmolality 287 mOsm/kg (285-295) 02/06/25 18:08 Calcium 9.9 mg/dL (8.5-10.5) 02/06/25 18:08 Total Bilirubin 1.6 mg/dL (0.15-1.2) H 02/06/25 18:08 AST 39 U/L (0-40) 02/06/25 18:08 ALT 34 U/L (0-41) 02/06/25 18:08 Alkaline Phosphatase 105 U/L (40-130) 02/06/25 18:08 Troponin T Baseline 21 ng/L (0-15) H 02/06/25 18:08 Troponin T 120 Minute 19.32 ng/L (0-15) H 02/06/25 20:20 Delta Troponin T -1.68 ABS# (0-10) L 02/06/25 20:20 Total Protein 7.8 g/dL (6.6-8.7) 02/06/25 18:08 Albumin 4.3 g/dL (3.5-5.2) 02/06/25 18:08 Globulin 3.5 g/dL (1.3-4.6) 02/06/25 18:08 Lipase 42 U/L (13-60) 02/06/25 18:08 Influenza A (PCR) Negative (Negative) 02/06/25 18:20 Influenza Type B (PCR) Negative (Negative) 02/06/25 18:20 RSV (PCR) Negative (Negative) 02/06/25 18:20 SARS-CoV-2 (PCR) Negative (Negative) 02/06/25 18:20 All radiology interpretation(s) finalized by discharge Discharge Plan Discharge Patient Disposition: Home Clinical Impression: Chest pain Qualifiers: Chest pain type: unspecified Qualified Code(s): R07.9 - Chest pain, unspecified Condition: Stable Prescriptions: No Action allopurinol 100 mg tablet 100 mg PO DAILY PRN (Reason: GOUT) isosorbide mononitrate 30 mg tablet extended release 24 hr 30 mg PO DAILY Qty: 90 3RF atorvastatin [Lipitor] 40 mg tablet 40 mg PO BID sucralfate 1 gram tablet 1 g PO BID hydroxyzine HCl 25 mg tablet 25 mg PO BID PRN escitalopram oxalate 5 mg tablet 5 mg PO DAILY lactulose 10 gram/15 mL solution 15 g PO BID multivitamin [Daily Multi-Vitamin] Tablet 1 tab PO QAM Qty: 60 0RF silver sulfadiazine 1 % cream 1 applic topical DAILY 14 Days Qty: 50 0RF Rx Instructions: apply a 1.5 mm thickness acetaminophen-codeine 300-30 mg tablet 1 tab PO Q8H PRN (Reason: pain) 7 Days Qty: 21 0RF Plavix 75 mg tablet 75 mg PO DAILY@0700 Qty: 90 3RF nitroglycerin 0.4 mg tablet, sublingual 0.4 mg SUBLINGUAL Q5M PRN (Reason: chest pain) 30 Days Qty: 30 3RF Rx Instructions: until response; do not exceed 3 doses per episode aspirin 81 mg tablet,chewable 81 mg PO DAILY@0700 Qty: 90 3RF insulin lispro [Humalog KwikPen Insulin] 100 unit/mL insulin pen 3 unit SUBCUT TID Qty: 15 3RF levetiracetam [Keppra] 1,000 mg tablet 1,000 mg PO BID 90 Days Qty: 180 3RF bacitracin 500 unit/gram ointment 1 applic topical DAILY Qty: 14 0RF acetaminophen [Tylenol Arthritis Pain] 650 mg tablet extended release 650 mg PO Q8H PRN (Reason: pain) Qty: 30 0RF lisinopril 20 mg Tablet 40 mg PO DAILY Qty: 60 1RF naproxen [Naprosyn] 500 mg tablet 500 mg PO BID PRN (Reason: pain) Qty: 20 0RF methocarbamol 750 mg tablet 750 mg PO TID PRN (Reason: back pain) Qty: 15 0RF levothyroxine 150 mcg tablet 150 mcg PO DAILY Rx Instructions: TAKE 1 TABLET BY MOUTH EVERY DAY metoprolol tartrate 50 mg Tablet 50 mg PO DAILY calcium carbonate-vitamin D3 [Calcium 600 + D(3)] 600 mg-10 mcg (400 unit) Tablet 1 tab PO DAILY insulin glargine [Lantus U-100 Insulin] 100 unit/mL solution 15 unit SUBCUT DAILY Qty: 10 0RF pantoprazole 40 mg Tablet,Delayed Release (Dr/Ec) 40 mg PO Q12H 30 Days Qty: 60 0RF Discharge Orders: Discharge ED (Routine); Ordered 02/06/25 Ordered By: Arnoldo Stafford Referrals: Dorita Flaherty, TAKER OUT [Primary Care Provider, Unknown] Patient Instructions: Patient Portal & Haley Instructions Activity Restrictions/Additional Instructions: Chest Pain Discharge Instructions Discharge Instructions: 60-year-old Male with Recurrent Chest Pain, Low Suspicion for ACS Summary of ED Evaluation: - Patient presented with chest pain, similar to prior episodes. - No evidence of acute coronary syndrome (ACS) based on clinical assessment, ECG, and serial high-sensitivity troponin measurements. - Recent cardiac workup (echocardiogram, nuclear medicine study, and stress test within past 6 months) was unremarkable. - No new concerning features or high-risk findings identified. Disposition Rationale: - According to the [place] [employer] and [place] [employer] guidelines, patients with low 30-day risk of or major adverse cardiac events (MACE) (<1%) and unremarkable recent cardiac testing do not benefit from repeat urgent cardiac testing or hospital admission. - The HEART Pathway and other validated clinical decision pathways support safe early discharge in this population. Return Precautions: - Advise the patient to return to the emergency department immediately for any of the following: - New, severe, or persistent chest pain - Chest pain associated with shortness of breath, diaphoresis, syncope, palpitations, or hemodynamic instability - Chest pain radiating to the jaw, neck, or left arm - Symptoms suggestive of acute aortic syndrome (sudden tearing pain), pulmonary embolism (pleuritic pain, hemoptysis, unexplained dyspnea), or other life-threatening etiologies Follow-Up Recommendations: - Outpatient follow-up with primary care provider or auditor medical claims within 14?30 days is recommended to ensure continuity of care and further evaluation of non-cardiac causes of chest pain, as appropriate. - Consider screening for anxiety and depression, as these may contribute to recurrent chest pain and healthcare utilization. - Continue guideline-directed management of cardiovascular risk factors (hypertension, hyperlipidemia, diabetes, smoking cessation) as indicated. Additional Notes: - No evidence supports routine repeat stress testing or cardiac imaging within 30 days in patients with recent normal studies and low-risk features. - Notify the patient?s established provider of the ED visit and disposition to facilitate outpatient follow-up. Patient Education: - Reassure the patient regarding the low likelihood of ACS based on current and recent evaluations. - Emphasize the importance of return precautions and scheduled follow-up. Summary Statement: This disposition is consistent with current ACC/AHA guidelines and the TAMAR recommendations for recurrent, low-risk chest pain in the ED. Print Language: Citizen [place] Coding Level of Care Code ED Property Staff Accountant for Chg Fwd Documented by User: Khadar Beyer, 02/06/25 23:58 HPI - Chest Pain General: Chief Complaint: Chest Pain Stated Complaint: chest pain Time Seen by Provider: 02/06/25 18:00 Related Data Home Medications ?Medication ?Instructions ?Recorded ?Confirmed allopurinol 100 mg tablet 100 mg PO DAILY PRN GOUT 12/13/20 01/20/25 levothyroxine 150 mcg tablet 150 mcg PO DAILY 02/18/24 01/20/25 calcium 600 mg (as 1 tab PO DAILY 05/29/24 01/20/25 carbonate)-vitamin D3 10 mcg (400 unit) tablet (Calcium 600 + D(3)) metoprolol tartrate 50 mg tablet 50 mg PO DAILY 05/29/24 01/20/25 atorvastatin 40 mg tablet (Lipitor) 40 mg PO BID 07/29/24 01/20/25 escitalopram oxalate 5 mg tablet 5 mg PO DAILY 07/29/24 01/20/25 hydroxyzine HCl 25 mg tablet 25 mg PO BID PRN 07/29/24 01/20/25 lactulose 10 gram/15 mL oral 15 g PO BID 07/29/24 01/20/25 solution sucralfate 1 gram tablet 1 g PO BID 07/29/24 01/20/25 Previous Rx's ?Medication ?Instructions ?Recorded methocarbamol 750 mg tablet 750 mg PO TID PRN back pain #15 04/14/23 tabs aspirin 81 mg chewable tablet 81 mg PO DAILY@0700 #90 tabs 03/22/24 clopidogrel 75 mg tablet (Plavix) 75 mg PO DAILY@0700 #90 tabs 08/01/23 nitroglycerin 0.4 mg sublingual 0.4 mg sublingual Q5M PRN chest 08/01/23 tablet pain 30 days #30 tabs bacitracin 500 unit/gram topical 1 applic topical DAILY #14 grams 09/25/23 ointment insulin glargine 100 unit/mL 15 unit (0.15 mL) SUBCUT DAILY #10 06/14/24 subcutaneous solution (Lantus mL U-100 Insulin) pantoprazole 40 mg tablet,delayed 40 mg PO Q12H 30 days #60 tabs 06/14/24 release isosorbide mononitrate 30 mg 30 mg PO DAILY #90 tabs 06/16/24 tablet,extended release 24 hr acetaminophen 650 mg 650 mg PO Q8H PRN pain #30 tabs 06/21/24 tablet,extended release (Tylenol Arthritis Pain) lisinopril 20 mg tablet 40 mg (2 x 20 mg) PO DAILY #60 tabs 06/21/24 multivitamin (Daily Multi-Vitamin 1 tab PO QAM #60 tabs 07/29/24 tablet) acetaminophen 300 mg-codeine 30 mg 1 tab PO Q8H PRN pain 7 days #21 08/12/24 tablet tabs silver sulfadiazine 1 % topical 1 applic topical DAILY 2 weeks #50 08/12/24 cream grams insulin lispro 100 unit/mL 3 unit (0.03 mL) SUBCUT TID #15 mL 10/05/24 subcutaneous pen (Humalog KwikPen (U-100) Insulin) levetiracetam 1,000 mg tablet 1,000 mg PO BID 90 days #180 tabs 12/02/24 (Keppra) naproxen 500 mg tablet (Naprosyn) 500 mg PO BID PRN pain #20 tabs 01/30/25 Allergies Allergy/AdvReac Type Severity Reaction Status Date / Time cephalexin (From Keflex) Allergy Unknown Verified 01/20/25 12:21 Cephalosporins Allergy hives Verified 01/20/25 12:21 PFSH ED PFSH: Medical History Thrombocytopenia 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 Chest pain Unstable angina 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 History of opioid abuse Mild cognitive impairment with memory loss Lacunar stroke Splenomegaly Erectile dysfunction Hepatosplenomegaly Enlarged prostate Acute kidney injury Coronary artery disease Chronic low back pain Dyslipidemia Benign essential hypertension with target blood pressure below 140/90 Type 2 diabetes mellitus Atypical chest pain Epilepsy Obesity Glucose intolerance Smoker Hypothyroidism Surgical History History of cholecystectomy H/O eye surgery right eye History of PTCA H/O heart artery stent 07/11/2020-Cardiac stent placement mid LAD H/O umbilical hernia repair History of appendectomy Family History Father , at age 74 Family history of premature coronary artery disease Had a myocardial infarction in his 40s. Diabetes CAD (coronary artery disease) Chronic kidney disease (CKD) Stroke Brother Family history of premature coronary artery disease CAD (coronary artery disease) Had AL in the 50s Diabetes Stroke Grandmother CAD (coronary artery disease) Diabetes Grandfather CAD (coronary artery disease) Mother , at age 84 CAD (coronary artery disease) Cancer Diabetes COVID-19 Family/Other Lung disease Denies family history of Clotting disorder Dementia Suicide Anesthesia complication Bleeding disorder Social History Smoking and tobacco/nicotine status: current every day tobacco/nicotine user Alcohol intake: current Alcohol intake frequency: holidays/special occasions only Substance/Drug Use: never Household members: spouse Housing: House Marital status: Current occupational status: disabled Course Vital Signs: Vital signs: Vital Signs Temperature 98.0 F 02/06/25 17:59 Pulse Rate 81 02/06/25 21:38 Respiratory Rate 12 02/06/25 21:30 Blood Pressure 137/89 02/06/25 21:38 Pulse Oximetry 96 02/06/25 21:38 Oxygen Delivery Me thod Room Air 02/06/25 20:00 MDM - Chest Pain Medical Decision Making This patient well-known to the emergency department presenting by ambulance for chest pain. Was given sublingual nitro and aspirin prehospital, did not improve his pain. In July of this year he had nuc med myocardial perfusion, sestamibi stress test, and echocardiogram all of which were reviewed here and appear to be unremarkable. A chest x-ray was negative here, EKG reviewed with physician showing normal sinus rhythm with no acute ST segment changes. Delta troponin is negative, rest of his lab work reassuring. Throughout ED stay his primary complaint has been acute on chronic back pain, he has requested pain meds for this and this was controlled here in the ED. He is informed to follow-up with primary care for reevaluation, I feel that admission to the hospital not warranted at this time due to his recent workup in the past 6 months, though he is informed to return with any new or worsening. Patient was originally seen by Mr. Rivera PA-C. I agree with his history, evaluation, and treatment. Lab Data 02/06/25 18:08 02/06/25 18:08 Radiology Impressions Chest X-Ray 02/06/25 18:11 IMPRESSION: No acute findings. Laboratory Results WBC 6.73 10^3/uL (3.29-11.43) 02/06/25 18:08 RBC 4.89 10^6/uL (3.85-5.65) 02/06/25 18:08 Hgb 14.40 g/dL (11.27-16.99) 02/06/25 18:08 Hct 42.8 % (37-53) 02/06/25 18:08 MCV 87.5 fl (82-101) 02/06/25 18:08 MCH 29.4 pg (27-33) 02/06/25 18:08 MCHC 33.6 g/dL (30-55) 02/06/25 18:08 RDW 13.5 % (12.1-15.1) 02/06/25 18:08 Plt Count 96 10^3/cmm (157-399) L 02/06/25 18:08 MPV 11.5 fL (7.4-10.4) H 02/06/25 18:08 Neut % (Auto) 67.1 % 02/06/25 18:08 Lymph % (Auto) 16.2 % 02/06/25 18:08 Bleck[place] % (Auto) 9.7 % 02/06/25 18:08 Eos % (Auto) 5.1 % 02/06/25 18:08 Baso % (Auto) 1.2 % 02/06/25 18:08 Neut # (Auto) 4.52 10^3/uL (1.8-7.7) 02/06/25 18:08 Lymph # (Auto) 1.1 10^3/uL (0.8-4.8) 02/06/25 18:08 [place]ck[place] # (Auto) 0.7 10^3/uL (0.2-0.9) 02/06/25 18:08 Eos # (Auto) 0.3 10^3/uL (0.0-0.8) 02/06/25 18:08 Baso # (Auto) 0.1 10^3/uL (0.0-0.1) 02/06/25 18:08 Nucleated RBC % (auto) 0 % 02/06/25 18:08 Nucleated RBCs # 0.0 /100WBC 02/06/25 18:08 Sodium 137 mmol/L (136-145) 02/06/25 18:08 Potassium 4.0 mmol/L (3.5-5.1) 02/06/25 18:08 Chloride 100 mmol/L (98-107) 02/06/25 18:08 Carbon Dioxide 28 mmol/L (22-29) 02/06/25 18:08 Anion Gap 13.0 (5-19) 02/06/25 18:08 BUN 16 mg/dL (6-20) 02/06/25 18:08 Creatinine 1.1 mg/dL (0.7-1.2) 02/06/25 18:08 GFR Calculation 68.8 mL/min (90-130) L 02/06/25 18:08 Glucose 137 mg/dL (65-115) H 02/06/25 18:08 Calculated Osmolality 287 mOsm/kg (285-295) 02/06/25 18:08 Calcium 9.9 mg/dL (8.5-10.5) 02/06/25 18:08 Total Bilirubin 1.6 mg/dL (0.15-1.2) H 02/06/25 18:08 AST 39 U/L (0-40) 02/06/25 18:08 ALT 34 U/L (0-41) 02/06/25 18:08 Alkaline Phosphatase 105 U/L (40-130) 02/06/25 18:08 Troponin T Baseline 21 ng/L (0-15) H 02/06/25 18:08 Troponin T 120 Minute 19.32 ng/L (0-15) H 02/06/25 20:20 Delta Troponin T -1.68 ABS# (0-10) L 02/06/25 20:20 Total Protein 7.8 g/dL (6.6-8.7) 02/06/25 18:08 Albumin 4.3 g/dL (3.5-5.2) 02/06/25 18:08 Globulin 3.5 g/dL (1.3-4.6) 02/06/25 18:08 Lipase 42 U/L (13-60) 02/06/25 18:08 Influenza A (PCR) Negative (Negative) 02/06/25 18:20 Influenza Type B (PCR) Negative (Negative) 02/06/25 18:20 RSV (PCR) Negative (Negative) 02/06/25 18:20 SARS-CoV-2 (PCR) Negative (Negative) 02/06/25 18:20 Discharge Plan Discharge Patient Disposition: Home Clinical Impression: Chest pain Qualifiers: Chest pain type: unspecified Qualified Code(s): R07.9 - Chest pain, unspecified Condition: Stable Prescriptions: No Action allopurinol 100 mg tablet 100 mg PO DAILY PRN (Reason: GOUT) isosorbide mononitrate 30 mg tablet extended release 24 hr 30 mg PO DAILY Qty: 90 3RF atorvastatin [Lipitor] 40 mg tablet 40 mg PO BID sucralfate 1 gram tablet 1 g PO BID hydroxyzine HCl 25 mg tablet 25 mg PO BID PRN escitalopram oxalate 5 mg tablet 5 mg PO DAILY lactulose 10 gram/15 mL solution 15 g PO BID multivitamin [Daily Multi-Vitamin] Tablet 1 tab PO QAM Qty: 60 0RF silver sulfadiazine 1 % cream 1 applic topical DAILY 14 Days Qty: 50 0RF Rx Instructions: apply a 1.5 mm thickness acetaminophen-codeine 300-30 mg tablet 1 tab PO Q8H PRN (Reason: pain) 7 Days Qty: 21 0RF Plavix 75 mg tablet 75 mg PO DAILY@0700 Qty: 90 3RF nitroglycerin 0.4 mg tablet, sublingual 0.4 mg SUBLINGUAL Q5M PRN (Reason: chest pain) 30 Days Qty: 30 3RF Rx Instructions: until response; do not exceed 3 doses per episode aspirin 81 mg tablet,chewable 81 mg PO DAILY@0700 Qty: 90 3RF insulin lispro [Humalog KwikPen Insulin] 100 unit/mL insulin pen 3 unit SUBCUT TID Qty: 15 3RF levetiracetam [Keppra] 1,000 mg tablet 1,000 mg PO BID 90 Days Qty: 180 3RF bacitracin 500 unit/gram ointment 1 applic topical DAILY Qty: 14 0RF acetaminophen [Tylenol Arthritis Pain] 650 mg tablet extended release 650 mg PO Q8H PRN (Reason: pain) Qty: 30 0RF lisinopril 20 mg Tablet 40 mg PO DAILY Qty: 60 1RF naproxen [Naprosyn] 500 mg tablet 500 mg PO BID PRN (Reason: pain) Qty: 20 0RF methocarbamol 750 mg tablet 750 mg PO TID PRN (Reason: back pain) Qty: 15 0RF levothyroxine 150 mcg tablet 150 mcg PO DAILY Rx Instructions: TAKE 1 TABLET BY MOUTH EVERY DAY metoprolol tartrate 50 mg Tablet 50 mg PO DAILY calcium carbonate-vitamin D3 [Calcium 600 + D(3)] 600 mg-10 mcg (400 unit) Tablet 1 tab PO DAILY insulin glargine [Lantus U-100 Insulin] 100 unit/mL solution 15 unit SUBCUT DAILY Qty: 10 0RF pantoprazole 40 mg Tablet,Delayed Release (Dr/Ec) 40 mg PO Q12H 30 Days Qty: 60 0RF Discharge Orders: Discharge ED (Routine); Ordered 02/06/25 Ordered By: Arnoldo Stafford Referrals: Dorita Flaherty FNP [Primary Care Provider, Unknown] Patient Instructions: Patient Portal & Haley Instructions Activity Restrictions/Additional Instructions: Chest Pain Discharge Instructions Discharge Instructions: 60-year-old Male with Recurrent Chest Pain, Low Suspicion for ACS Summary of ED Evaluation: - Patient presented with chest pain, similar to prior episodes. - No evidence of acute coronary syndrome (ACS) based on clinical assessment, ECG, and serial high-sensitivity troponin measurements. - Recent cardiac workup (echocardiogram, nuclear medicine study, and stress test within past 6 months) was unremarkable. - No new concerning features or high-risk findings identified. Disposition Rationale: - According to the [place] [employer] and [place] [employer] guidelines, patients with low 30-day risk of or major adverse cardiac events (MACE) (<1%) and unremarkable recent cardiac testing do not benefit from repeat urgent cardiac testing or hospital admission. - The HEART Pathway and other validated clinical decision pathways support safe early discharge in this population. Return Precautions: - Advise the patient to return to the emergency department immediately for any of the following: - New, severe, or persistent chest pain - Chest pain associated with shortness of breath, diaphoresis, syncope, palpitations, or hemodynamic instability - Chest pain radiating to the jaw, neck, or left arm - Symptoms suggestive of acute aortic syndrome (sudden tearing pain), pulmonary embolism (pleuritic pain, hemoptysis, unexplained dyspnea), or other life-threatening etiologies Follow-Up Recommendations: - Outpatient follow-up with primary care provider or auditor medical claims within 14?30 days is recommended to ensure continuity of care and further evaluation of non-cardiac causes of chest pain, as appropriate. - Consider screening for anxiety and depression, as these may contribute to recurrent chest pain and healthcare utilization. - Continue guideline-directed management of cardiovascular risk factors (hypertension, hyperlipidemia, diabetes, smoking cessation) as indicated. Additional Notes: - No evidence supports routine repeat stress testing or cardiac imaging within 30 days in patients with recent normal studies and low-risk features. - Notify the patient?s established provider of the ED visit and disposition to facilitate outpatient follow-up. Patient Education: - Reassure the patient regarding the low likelihood of ACS based on current and recent evaluations. - Emphasize the importance of return precautions and scheduled follow-up. Summary Statement: This disposition is consistent with current ACC/AHA guidelines and the TAMAR recommendations for recurrent, low-risk chest pain in the ED. Print Language: Citizen Of [place] Coding Level of Care Code ED Property Staff Accountant for Marva Bunn
[2025-02-06 19:39] LABS: Respiratory Syncytial Virus Ce NEGATIVE (Negative); SARS-CoV-2 PCR NEGATIVE (Negative)
--- NOTE | 2025-02-06 20:37 | ECG_ITS ---
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
[2025-02-06 21:05] LABS: Troponin 5 2HR 19.32 ng/L (0-15)
[2025-02-06 21:08] LABS: Troponin 5 2HR Delta -1.68 ABS# (0-10)
[2025-02-06] MEDS: morphine 4 mg/mL SDV 1 mL 2 MG IVP (21:33)
== END 2025-02-06 21:48 | disposition home or self-care (01) ==
PROVIDERS: Emergency Provider Physician Assistant; PCP Nurse Practitioner Family
DX: R07.9 Chest pain, unspecified (principal); Z11.52 Encounter for screening for COVID-19; Z79.82 Long term (current) use of aspirin; Z79.4 Long term (current) use of insulin; I25.118 Atherosclerotic heart disease of native coronary artery with other forms of angina pectoris; E78.5 Hyperlipidemia, unspecified; I10 Essential (primary) hypertension; E11.9 Type 2 diabetes mellitus without complications; Z72.0 Tobacco use
CPT/HCPCS: 36415; 71045; 80053; 83690; 84484; 85025; 87637; 93005; 96374; 96376; 99285; J2270

== ENCOUNTER 2025-02-12 14:02 | Emergency (ER) | payer MEDICAID, SELFPAY ==
--- OUTSIDE RECORDS SUMMARY | 2012-12-08 11:00 | XMS_ITS | Continuity of Care Document ---
Author Organization [facility] Address [address] [facility] [place] [address] Phone Care Team Providers Care Cutter Woodwind Reeds Name Role Phone Ruben OTR/L, CHT, Pepper Unavailable Unavailable Procedures Procedure Date OT EVALUATION THERAPEUTIC EXERCISES ORTHOTIC FITTING Forearm Non-compressive stockinette per foot Nov Advance Directives Directive Yes / No Effective Date File Name No Information Encounters Encounter Description Practice Location Reason(s) For Visit Diagnoses Date Provider Providers Copied on Encounter [facility], [address] [place], [place] [address], [place], [place], [address], tel:[phone] [place] Pain in joint involving hand 0201 3 uRben Pabon. [address] [facility], [address], [place], [address], . tel:[phone] Referring Provider: Pb Live [address] [facility] Suite [facility] [place], [address]. tel:[phone] Family History Family Member Type Diagnosis Age At Onset No Information Payers Payer name Insurance type Covered alliance party ID Errol vance(s) Aetna CI [id number] [facility] 2012 Social History Type Description Quantity [...]
--- OUTSIDE RECORDS SUMMARY | 2016-02-20 04:45 | XMS_ITS | Continuity of Care Document ---
Author Organization [facility] Address [address] [place] [address] [address] [place] [address] Phone Care Team Providers Care Assembly Line Machine Operator Name Role Phone Anatoly Whitmore MD Unavailable [...] Provider Providers Copied on Encounter [facility], [address] [place] [address], [place], [place], [address], tel:[phone] OPH CONSULT ZACH DE LA TORRE lid lesion (chief complaint) Papilloma of right eyelid Amanda Ledbetter. [address] [place] [address], [facility] [address], [place], [address], [place]. tel:[phone] Referring Provider: Anatoly Nicolas, [address] [place] [address] 201, [place], [address]. tel:[phone] Family History Family Member Type Diagnosis Age At Onset No Information Payers Payer name Insurance type Covered republican ID Authoriza tion(s) AETNA CI [id number] Social History Type Description Quantity Date Captured Comments Alcohol Use Details Caffeine Use Details No Tobacco Use Status No Information Smoking Status Never smoker Non-Smoking Tobacco Use Details : No Details Available : No Details Available Sex Male Chief Complaint And Reason For Visit From encounter dated '02/20/2016 09:45'. lid lesion (chief complaint). Description: The 51 year old male presents for evaluation of lid lesion in the RLL. It started about 1 year(s) ago. The symptom is constant. The condition is significant. Pt states BENJY [place] to have the lesion evaluated. Pt denies [...] The condition is significant. Pt states BENJY [place] to have the lesion evaluated. Pt denies [...]
[2025-02-12 14:02] VITALS: BP 115/78; PULSE 72; RESP 16; TEMP 36.6; O2SAT 98; BMI 33.0
--- NOTE | 2025-02-12 14:07 | W.ED.ABDPA2 ---
HPI - Abdominal Pain General: Chief Complaint: Abdominal Pain Stated Complaint: abd pain Time Seen by Provider: 02/12/25 14:03 Source: patient and EMS Mode of arrival: EMS Limitations: no limitations History of Present Illness: 60-year-old male has a history of cirrhosis very well-known to the ER has history of chronic abdominal pain states been having pain in his right upper quadrant where his liver is states been going on for quite some time but worse over the last 2 days. He denies any vomiting denies any diarrhea rates his pain a 6 out of 10 denies any worse improved factors. Related Data Home Medications ?Medication ?Instructions ?Recorded ?Confirmed allopurinol 100 mg tablet 100 mg PO DAILY PRN GOUT 12/13/20 01/20/25 levothyroxine 150 mcg tablet 150 mcg PO DAILY 02/18/24 01/20/25 calcium 600 mg (as 1 tab PO DAILY 05/29/24 01/20/25 carbonate)-vitamin D3 10 mcg (400 unit) tablet (Calcium 600 + D(3)) metoprolol tartrate 50 mg tablet 50 mg PO DAILY 05/29/24 01/20/25 atorvastatin 40 mg tablet (Lipitor) 40 mg PO BID 07/29/24 01/20/25 escitalopram oxalate 5 mg tablet 5 mg PO DAILY 07/29/24 01/20/25 hydroxyzine HCl 25 mg tablet 25 mg PO BID PRN 07/29/24 01/20/25 lactulose 10 gram/15 mL oral 15 g PO BID 07/29/24 01/20/25 solution sucralfate 1 gram tablet 1 g PO BID 07/29/24 01/20/25 Previous Rx's ?Medication ?Instructions ?Recorded methocarbamol 750 mg tablet 750 mg PO TID PRN back pain #15 04/14/23 tabs aspirin 81 mg chewable tablet 81 mg PO DAILY@0700 #90 tabs 08/01/23 clopidogrel 75 mg tablet (Plavix) 75 mg PO DAILY@0700 #90 tabs 08/01/23 nitroglycerin 0.4 mg sublingual 0.4 mg sublingual Q5M PRN chest 08/01/23 tablet pain 30 days #30 tabs bacitracin 500 unit/gram topical 1 applic topical DAILY #14 grams 09/25/23 ointment insulin glargine 100 unit/mL 15 unit (0.15 mL) SUBCUT DAILY #10 06/14/24 subcutaneous solution (Lantus mL U-100 Insulin) pantoprazole 40 mg tablet,delayed 40 mg PO Q12H 30 days #60 tabs 06/14/24 release isosorbide mononitrate 30 mg 30 mg PO DAILY #90 tabs 06/16/24 tablet,extended release 24 hr acetaminophen 650 mg 650 mg PO Q8H PRN pain #30 tabs 06/21/24 tablet,extended release (Tylenol Arthritis Pain) lisinopril 20 mg tablet 40 mg (2 x 20 mg) PO DAILY #60 tabs 06/21/24 multivitamin (Daily Multi-Vitamin 1 tab PO QAM #60 tabs 07/29/24 tablet) acetaminophen 300 mg-codeine 30 mg 1 tab PO Q8H PRN pain 7 days #21 08/12/24 tablet tabs silver sulfadiazine 1 % topical 1 applic topical DAILY 2 weeks #50 08/12/24 cream grams insulin lispro 100 unit/mL 3 unit (0.03 mL) SUBCUT TID #15 mL 10/05/24 subcutaneous pen (Humalog KwikPen (U-100) Insulin) levetiracetam 1,000 mg tablet 1,000 mg PO BID 90 days #180 tabs 12/02/24 (Keppra) naproxen 500 mg tablet (Naprosyn) 500 mg PO BID PRN pain #20 tabs 01/30/25 Allergies Allergy/AdvReac Type Severity Reaction Status Date / Time cephalexin (From Keflex) Allergy Unknown Verified 01/20/25 12:21 Cephalosporins Allergy hives Verified 01/20/25 12:21 Review of Systems GI: Reports: abdominal pain PFSH ED PFSH: Medical History Thrombocytopenia 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 Chest pain Unstable angina 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 History of opioid abuse Mild cognitive impairment with memory loss Lacunar stroke Splenomegaly Erectile dysfunction Hepatosplenomegaly Enlarged prostate Acute kidney injury Coronary artery disease Chronic low back pain Dyslipidemia Benign essential hypertension with target blood pressure below 140/90 Type 2 diabetes mellitus Atypical chest pain Epilepsy Obesity Glucose intolerance Smoker Hypothyroidism Surgical History History of cholecystectomy H/O eye surgery right eye History of PTCA H/O heart artery stent 07/11/2020-Cardiac stent placement mid LAD H/O umbilical hernia repair History of appendectomy Family History Father , at age 74 Family history of premature coronary artery disease Had a myocardial infarction in his 40s. Diabetes CAD (coronary artery disease) Chronic kidney disease (CKD) Stroke Brother Family history of premature coronary artery disease CAD (coronary artery disease) Had PR in the 50s Diabetes Stroke Grandmother CAD (coronary artery disease) Diabetes Grandfather CAD (coronary artery disease) Mother , at age 84 CAD (coronary artery disease) Cancer Diabetes COVID-19 Family/Other Lung disease Denies family history of Clotting disorder Dementia Suicide Anesthesia complication Bleeding disorder Social History Smoking and tobacco/nicotine status: current every day tobacco/nicotine user Alcohol intake: current Alcohol intake frequency: holidays/special occasions only Substance/Drug Use: never Household members: spouse Housing: House Marital status: Current occupational status: disabled Physical Exam Const: COMMON NORMALS: no acute distress, patient oriented x3 and healthy appearing HENMT: COMMON NORMALS: normocephalic and atraumatic HEAD & SCALP: normocephalic and atraumatic Eye: COMMON NORMALS: conjunctivae normal CONJUNCTIVA: Yes conjunctivae normal Neck/C-Spine: COMMON NORMALS: full ROM and supple Chest: COMMONS NORMALS: normal inspection of the chest Resp: COMMON NORMALS: normal respiratory effort, No retractions, No use of accessory muscles and clear to auscultation bilaterally AUSCULTATION: clear to auscultation bilaterally Cardio: COMMON NORMALS: regular rate, regular rhythm and No murmurs present (Cardio) RATE: regular rate RHYTHM: regular rhythm GI: COMMON NORMALS: Normal to inspection, nondistended, normoactive bowel sounds present, Soft to palpation, non-tender and no masses PALPATION: Yes Soft to palpation Extremity: COMMON NORMALS: normal to inspection and full ROM Neuro: COMMON NORMALS: patient oriented x3, moves all extremities and no focal motor deficits Psych: COMMON NORMALS: mental status grossly normal, Normal thought process present and cooperative THOUGHT PROCESS: Normal thought process present Skin: COMMON NORMALS: no rashes or lesions noted and no wounds GENERAL SKIN EXAM: no rashes or lesions noted Course Vital Signs: Vital signs: Vital Signs Temperature 97.9 F 02/12/25 14:02 Pulse Rate 72 02/12/25 14:02 Respiratory Rate 16 02/12/25 14:11 Blood Pressure 115/78 02/12/25 14:02 Pulse Oximetry 98 02/12/25 14:02 Oxygen Delivery Me thod Room Air 02/12/25 14:02 MDM - Abdominal Pain Medical Decision Making Patient presents with abdominal pain is chronic in nature his abdominal exam here is benign with no tenderness he has no signs of spontaneous bacterial peritonitis no signs of acute surgical abdomen or bowel obstruction. Blood work including white count here is normal he has no signs of any infections his pain has improved here I did go over his labs with him he is wellness PCP and return if worsening he understands agrees to plan. Medical Records I reviewed the patient's medical records. Lab Data I reviewed the patient's lab results. 02/12/25 13:48 02/12/25 13:48 Labs/Radiology: Laboratory Results WBC 7.66 10^3/uL (3.29-11.43) 02/12/25 13:48 RBC 5.07 10^6/uL (3.85-5.65) 02/12/25 13:48 Hgb 15.20 g/dL (11.27-16.99) 02/12/25 13:48 Hct 45.0 % (37-53) 02/12/25 13:48 MCV 88.8 fl (82-101) 02/12/25 13:48 MCH 30.0 pg (27-33) 02/12/25 13:48 MCHC 33.8 g/dL (30-55) 02/12/25 13:48 RDW 13.6 % (12.1-15.1) 02/12/25 13:48 Plt Count 101 10^3/cmm (157-399) L 02/12/25 13:48 MPV 11.3 fL (7.4-10.4) H 02/12/25 13:48 Neut % (Auto) 74.3 % 02/12/25 13:48 Lymph % (Auto) 13.7 % 02/12/25 13:48 [place] % (Auto) 7.0 % 02/12/25 13:48 Eos % (Auto) 3.7 % 02/12/25 13:48 Baso % (Auto) 1.0 % 02/12/25 13:48 Neut # (Auto) 5.69 10^3/uL (1.8-7.7) 02/12/25 13:48 Lymph # (Auto) 1.1 10^3/uL (0.8-4.8) 02/12/25 13:48 [place] # (Auto) 0.5 10^3/uL (0.2-0.9) 02/12/25 13:48 Eos # (Auto) 0.3 10^3/uL (0.0-0.8) 02/12/25 13:48 Baso # (Auto) 0.1 10^3/uL (0.0-0.1) 02/12/25 13:48 Nucleated RBC % (auto) 0 % 02/12/25 13:48 Nucleated RBCs # 0.0 /100WBC 02/12/25 13:48 Sodium 138 mmol/L (136-145) 02/12/25 13:48 Potassium 3.9 mmol/L (3.5-5.1) 02/12/25 13:48 Chloride 101 mmol/L (98-107) 02/12/25 13:48 Carbon Dioxide 28 mmol/L (22-29) 02/12/25 13:48 Anion Gap 12.9 (5-19) 02/12/25 13:48 BUN 13 mg/dL (6-20) 02/12/25 13:48 Creatinine 1.2 mg/dL (0.7-1.2) 02/12/25 13:48 GFR Calculation 62.2 mL/min (90-130) L 02/12/25 13:48 Glucose 170 mg/dL (65-115) H 02/12/25 13:48 Calculated Osmolality 290 mOsm/kg (285-295) 02/12/25 13:48 Calcium 9.9 mg/dL (8.5-10.5) 02/12/25 13:48 Total Bilirubin 1.7 mg/dL (0.15-1.2) H 02/12/25 13:48 AST 32 U/L (0-40) 02/12/25 13:48 ALT 28 U/L (0-41) 02/12/25 13:48 Alkaline Phosphatase 114 U/L (40-130) 02/12/25 13:48 Total Protein 7.9 g/dL (6.6-8.7) 02/12/25 13:48 Albumin 4.5 g/dL (3.5-5.2) 02/12/25 13:48 Globulin 3.4 g/dL (1.3-4.6) 02/12/25 13:48 Lipase 49 U/L (13-60) 02/12/25 13:48 No radiology studies performed this visit Discharge Plan Discharge Patient Disposition: Home Clinical Impression: Abdominal pain Condition: Stable Prescriptions: No Action allopurinol 100 mg tablet 100 mg PO DAILY PRN (Reason: GOUT) isosorbide mononitrate 30 mg tablet extended release 24 hr 30 mg PO DAILY Qty: 90 3RF atorvastatin [Lipitor] 40 mg tablet 40 mg PO BID sucralfate 1 gram tablet 1 g PO BID hydroxyzine HCl 25 mg tablet 25 mg PO BID PRN escitalopram oxalate 5 mg tablet 5 mg PO DAILY lactulose 10 gram/15 mL solution 15 g PO BID multivitamin [Daily Multi-Vitamin] Tablet 1 tab PO QAM Qty: 60 0RF silver sulfadiazine 1 % cream 1 applic topical DAILY 14 Days Qty: 50 0RF Rx Instructions: apply a 1.5 mm thickness acetaminophen-codeine 300-30 mg tablet 1 tab PO Q8H PRN (Reason: pain) 7 Days Qty: 21 0RF Plavix 75 mg tablet 75 mg PO DAILY@0700 Qty: 90 3RF nitroglycerin 0.4 mg tablet, sublingual 0.4 mg SUBLINGUAL Q5M PRN (Reason: chest pain) 30 Days Qty: 30 3RF Rx Instructions: until response; do not exceed 3 doses per episode aspirin 81 mg tablet,chewable 81 mg PO DAILY@0700 Qty: 90 3RF insulin lispro [Humalog KwikPen Insulin] 100 unit/mL insulin pen 3 unit SUBCUT TID Qty: 15 3RF levetiracetam [Keppra] 1,000 mg tablet 1,000 mg PO BID 90 Days Qty: 180 3RF bacitracin 500 unit/gram ointment 1 applic topical DAILY Qty: 14 0RF acetaminophen [Tylenol Arthritis Pain] 650 mg tablet extended release 650 mg PO Q8H PRN (Reason: pain) Qty: 30 0RF lisinopril 20 mg Tablet 40 mg PO DAILY Qty: 60 1RF naproxen [Naprosyn] 500 mg tablet 500 mg PO BID PRN (Reason: pain) Qty: 20 0RF methocarbamol 750 mg tablet 750 mg PO TID PRN (Reason: back pain) Qty: 15 0RF levothyroxine 150 mcg tablet 150 mcg PO DAILY Rx Instructions: TAKE 1 TABLET BY MOUTH EVERY DAY metoprolol tartrate 50 mg Tablet 50 mg PO DAILY calcium carbonate-vitamin D3 [Calcium 600 + D(3)] 600 mg-10 mcg (400 unit) Tablet 1 tab PO DAILY insulin glargine [Lantus U-100 Insulin] 100 unit/mL solution 15 unit SUBCUT DAILY Qty: 10 0RF pantoprazole 40 mg Tablet,Delayed Release (Dr/Ec) 40 mg PO Q12H 30 Days Qty: 60 0RF Discharge Orders: Discharge ED (Routine); Ordered 02/12/25 Ordered By: Kerry Jeter Referrals: Dorita Flaherty FNP [Primary Care Provider, Unknown] - 4-7 days Discharge Diet: Advance as tolerated Discharge Activity: Resume usual activity Patient Instructions: Abdominal Pain (ED) Print Language: [place] Coding Level of Care Code ED Saxophone Player for Marva Bunn
[2025-02-12] MEDS: ondansetron 2 mg/ML SDV 2 mL 4 MG IVP (14:10)
[2025-02-12 14:11] VITALS: RESP 16
[2025-02-12] MEDS: morphine 4 mg/mL SDV 1 mL IVP (14:11)
--- OUTSIDE RECORDS SUMMARY | 2025-02-12 14:12 | XMS_ITS | Clinical Summary ---
Author Organization 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
[2025-02-12 14:16] LABS: Hematocrit 45.0 % (37-53); Hemoglobin 15.20 g/dL (11.27-16.99); Mean Corpuscular HGB Conc 33.8 g/dL (30-55); Mean Corpuscular Hemoglobin 30.0 pg (27-33); Mean Corpuscular Volume 88.8 fl (82-101); Nucleated Red Blood Cells % 0 %; Platelet Count 101 10^3/cmm (157-399); Red Blood Count 5.07 10^6/uL (3.85-5.65); White Blood Count 7.66 10^3/uL (3.29-11.43)
[2025-02-12 14:29] LABS: Alanine Aminotransferase 28 U/L (0-41); Albumin Level 4.5 g/dL (3.5-5.2); Alkaline Phosphatase 114 U/L (40-130); Anion Gap 12.9 (5-19); Aspartate Amino Transferase 32 U/L (0-40); Blood Urea Nitrogen 13 mg/dL (6-20); Calcium 9.9 mg/dL (8.5-10.5); Carbon Dioxide 28 mmol/L (22-29); Chloride 101 mmol/L (98-107); Creatinine Clr Calc Pharmacy 81.1747; Globulin 3.4 g/dL (1.3-4.6); Glucose 170 mg/dL (65-115); Lipase 49 U/L (13-60); Osmolality Calculated 290 mOsm/kg (285-295); Potassium 3.9 mmol/L (3.5-5.1); Sodium 138 mmol/L (136-145); Total Protein 7.9 g/dL (6.6-8.7)
[2025-02-12 14:50] VITALS: BP 107/77; PULSE 66; RESP 16; O2SAT 97
== END 2025-02-12 14:51 | disposition home or self-care (01) ==
PROVIDERS: Emergency Provider Emergency Medicine; PCP Nurse Practitioner Family
DX: R10.9 Unspecified abdominal pain (principal); Z79.4 Long term (current) use of insulin; Z79.82 Long term (current) use of aspirin; Z72.0 Tobacco use; I25.118 Atherosclerotic heart disease of native coronary artery with other forms of angina pectoris; I25.10 Atherosclerotic heart disease of native coronary artery without angina pectoris; E11.9 Type 2 diabetes mellitus without complications
CPT/HCPCS: 80053; 83690; 85025; 96374; 96375; 99284; J2270; J2405

== ENCOUNTER 2025-02-13 18:57 | Emergency (ER) | payer MEDICAID, SELFPAY ==
--- OUTSIDE RECORDS SUMMARY | 2012-12-08 11:00 | XMS_ITS | Continuity of Care Document ---
Author Organization [facility] Address [address] [facility] [address] [place] [address] Phone Care Team Providers Care Marine Electronics Repairer Name Role Phone Ruben OTR/L, CHT, Pepper Unavailable Unavailable Procedures Procedure Date OT EVALUATION THERAPEUTIC EXERCISES ORTHOTIC FITTING Forearm Non-compressive stockinette per foot Nov Advance Directives Directive Yes / No Effective Date File Name No Information Encounters Encounter Description Practice Location Reason(s) For Visit Diagnoses Date Provider Providers Copied on Encounter [facility], [address] [place], [place] [address], [place], [place], [address], tel:[phone] [place] Pain in joint involving hand 0201 3 Ruben Pabon. [address] [facility], [address], [place], [address], . tel:[phone] Referring Provider: Pb Live [address] [facility] Suite [facility] [place], [address]. tel:[phone] Family History Family Member Type Diagnosis Age At Onset No Information Payers Payer name Insurance type Covered constitution party ID Errol vance(s) Aetna CI [id number] [facility] 2012 Social History Type Description Quantity [...]
--- OUTSIDE RECORDS SUMMARY | 2016-02-20 04:45 | XMS_ITS | Continuity of Care Document ---
Author Organization [facility] Address [address] [place] [address] [address] [place] [address] Phone Care Team Providers Care Bindery Machine Tender Name Role Phone Anatoly Whitmore MD Unavailable [...] Provider Providers Copied on Encounter [facility], [address] [place] [address], [place], [place], [address], tel:[phone] OPH CONSULT ZACH DE LA TORRE lid lesion (chief complaint) Papilloma of right eyelid Amanda Ledbetter. [address] [place] [address], [facility] 201, [place], [address], [place]. tel:[phone] Referring Provider: Anatoly Nicolas, [address] [place] [address] 201, [place], [address]. tel:[phone] Family History Family Member Type Diagnosis Age At Onset No Information Payers Payer name Insurance type Covered alliance party ID Authoriza tion(s) AETNA CI [id number] Social History Type Description Quantity Date Captured [...] The condition is significant. Pt states BENJY [place] to have the lesion evaluated. Pt denies [...] The condition is significant. Pt states BENJY [place] to have the lesion evaluated. Pt denies [...]
--- OUTSIDE RECORDS SUMMARY | 2025-02-13 19:01 | XMS_ITS | Clinical Summary ---
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
[2025-02-13 19:17] VITALS: BP 120/72; PULSE 78; RESP 18; TEMP 37.4; O2SAT 96; BMI 33.7
--- NOTE | 2025-02-13 20:29 | ED_ITS ---
HPI - Abdominal Pain 2 General: Chief Complaint: Abdominal Pain Stated Complaint: RT lower side pain Time Seen by Provider: 02/13/25 20:17 Source: patient Mode of arrival: ambulatory Limitations: no limitations History of Present Illness: Patient is a 60-year-old male who is well-known to our emergency department here for a complaint of right upper abdominal pain that he states is related to his liver. Looking at previous documentation-looks like patient has chronic abdominal pain. Patient has chronic liver cirrhosis. He does state he follows with a specialist in [place]. Patient states he is not having any other symptoms apart from discomfort. He arrives in no acute distress with stable vital signs. He is questioning whether he needs a paracentesis today. Last time he had fluid drained was approximately 2014 while living in [place]. elicited complaint: abdominal pain Pertinent past history: other (Liver cirrhosis) Onset (ago): month(s) Pain Consistency: constant Location: RUQ Severity: moderate Radiation: none Migration to: no migration Exacerbating factors: nothing Relieving factors: nothing Associated Symptoms: Denies change in bowel habits, chills, dysuria, fever(s), nausea and vomiting Related Data Home Medications ?Medication ?Instructions ?Recorded ?Confirmed allopurinol 100 mg tablet 100 mg PO DAILY PRN GOUT 08/3001/20/25 levothyroxine 150 mcg tablet 150 mcg PO DAILY 02/18/24 01/20/25 calcium 600 mg (as 1 tab PO DAILY 05/29/2401/10 carbonate)-vitamin D3 10 mcg (400 unit) tablet (Calcium 600 + D(3)) metoprolol tartrate 50 mg tablet 50 mg PO DAILY 01/20/25 atorvastatin 40 mg tablet (Lipitor) 40 mg PO BID 07/2901/20/25 escitalopram oxalate 5 mg tablet 5 mg PO DAILY 5 01/20/25 hydroxyzine HCl 25 mg tablet 25 mg PO BID PRN 07/29/24 01/20/25 lactulose 10 gram/15 mL oral 15 g PO BID 07/29/2401/10 solution sucralfate 1 gram tablet 1 g PO BID 07/29/24 01/20/25 Previous Rx's ?Medication ?Instructions ?Recorded methocarbamol 750 mg tablet 750 mg PO TID PRN back kaden n #15 04/14/23 tabs aspirin 81 mg chewable tablet 81 mg PO DAILY@0700 #90 tabs 08/01/23 clopidogrel 75 mg tablet (Plavix) 75 mg PO DAILY@0700 #90 tabs 08/01/23 nitroglycerin 0.4 mg sublingual 0.4 mg sublingual Q5M PRN chest 08/01/23 tablet pain 30 days #30 tabs bacitracin 500 unit/gram topical 1 applic topical TOVA Y #14 grams 09/25/23 ointment insulin glargine 100 unit/mL 15 unit (0.15 mL) SUBCUT DAILY #10 06/14/24 subcutaneous solution (Lantus mL U-100 Insulin) pantoprazole 40 mg tablet,delayed 40 mg PO Q12H 30 day s #60 tabs 06/14/24 release isosorbide mononitrate 30 mg 30 mg PO DAILY #90 tabs 0 06/16/24 tablet,extended release 24 hr acetaminophen 650 mg 650 mg PO Q8H PRN pain #30 t abs 06/21/24 tablet,extended release (Tylenol Arthritis Pain) lisinopril 20 mg tablet 40 mg (2 x 20 mg) PO DAILY # 60 tabs 06/21/24 multivitamin (Daily Multi-Vitamin 1 tab PO QAM #60 tab s 07/29/24 tablet) acetaminophen 300 mg-codeine 30 mg 1 tab PO Q8H PRN pa in 7 days #21 08/12/24 tablet tabs silver sulfadiazine 1 % topical 1 applic topical DAILY 2 weeks #50 08/12/24 cream grams insulin lispro 100 unit/mL 3 unit (0.03 mL) SUBCUT TID #15 mL 10/05/24 subcutaneous pen (Humalog KwikPen (U-100) Insulin) levetiracetam 1,000 mg tablet 1,000 mg PO BID 90 days #180 tabs 12/02/24 (Keppra) naproxen 500 mg tablet (Naprosyn) 500 mg PO BID PRN pa in #20 tabs 01/30/25 Allergies Allergy/AdvReac Type Severity Reaction Status Date / Time cephalexin (From Keflex) Allergy Unknown Verified 01/20/25 12:21 Cephalosporins Allergy hives Verified 01/20/25 12:21 Review of Systems 2 Const: Denies: fever(s), chills, body aches, fatigue or malaise Card: Denies: chest pain Resp: Denies: dyspnea GI: Reports: abdominal pain; Denies: nausea, vomiting or change in bowel habits : Denies: flank pain, difficulty urinating, dysuria, urinary frequency, urinary urgency or urinary hesitancy Musc: Denies: neck pain, back pain, extremity pain, extremity swelling, joint pain or joint swelling Skin/Breast: Denies: rash Neuro: Denies: headache(s), numbness in extremities, weakness in extremities, sensory changes or dizziness PFSH ED 2 PFSH: Medical History Thrombocytopenia 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 Chest pain Unstable angina 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 History of opioid abuse Mild cognitive impairment with memory loss Lacunar stroke Splenomegaly Erectile dysfunction Hepatosplenomegaly Enlarged prostate Acute kidney injury Coronary artery disease Chronic low back pain Dyslipidemia Benign essential hypertension with target blood pressure below 140/90 Type 2 diabetes mellitus Atypical chest pain Epilepsy Obesity Glucose intolerance Smoker Hypothyroidism Surgical History History of cholecystectomy H/O eye surgery right eye History of PTCA H/O heart artery stent 07/11/2020-Cardiac stent placement mid LAD H/O umbilical hernia repair History of appendectomy Family History Father , at age 74 Family history of premature coronary artery disease Had a myocardial infarction in his 40s. Diabetes CAD (coronary artery disease) Chronic kidney disease (CKD) Stroke Brother Family history of premature coronary artery disease CAD (coronary artery disease) Had NV in the 50s Diabetes Stroke Grandmother CAD (coronary artery disease) Diabetes Grandfather CAD (coronary artery disease) Mother , at age 84 CAD (coronary artery disease) Cancer Diabetes COVID-19 Family/Other Lung disease Denies family history of Clotting disorder Dementia Suicide Anesthesia complication Bleeding disorder Social History Smoking and tobacco/nicotine status: current every day tobacco/nicotine user Alcohol intake: current Alcohol intake frequency: holidays/special occasions only Substance/Drug Use: never Household members: spouse Housing: House Marital status: Current occupational status: disabled Physical Exam 2 Const: COMMON NORMALS: no acute distress, average body habitus, patient oriented x3, no limitations, alert and well nourished GENERAL APPEARANCE: c ooperative Eye: COMMON NORMALS: no scleral icterus Resp: COMMON NORMALS: normal respiratory effort and clear to auscultation bilaterally AUSCULTATION: clear to auscultation bilaterally Cardio: COMMON NORMALS: regular rate and regular rhythm RATE: regular rate RHYTHM: regular rhythm GI: COMMON NORMALS: Normal to inspection, nondistended, normoactive bowel sounds present, Soft to palpation and no masses INSPECTION: Yes normal to inspection, No caput medusae present and No Fluid wave present AUSCULTATION: Yes normoactive bowel sounds PALPATION: Yes Soft to palpation, Yes Tenderness to palpation present (GI) (mild R side; non-surgical abdomen), No Guarding due to palpation present (GI) and No Rigid due to palpation PERCUSSION: no fluid wave : COMMON NORMALS: Yes no CVA tenderness BLADDER/KIDNEY EXAM: Yes no CVA tenderness Back/Pelvis: COMMON NORMALS: no CVA tenderness Extremity: GENERAL: Yes normal exam except as noted Neuro: CADNY COMA SCALE: document GCS findings Candy coma scale eye opening: Spontaneous Candy coma scale verbal response: Orientated Candy coma scale motor response: Obey commands Candy coma scale total score: 15 COMMON NORMALS: patient oriented x3, moves all extremities, no focal motor deficits, no sensory deficits noted and gait normal SENSORIUM/ORIENTATION: Yes alert Skin: COMMON NORMALS: no rashes or lesions noted GENERAL SKIN EXAM: no rashes or lesions noted Course 2 Vital Signs: Vital signs: Vital Signs Temperature 99.3 F 02/13/25 19:17 Pulse Rate 72 02/13/25 21:25 Respiratory Rate 18 02/13/25 19:17 Blood Pressure 128/60 02/13/25 21:25 Pulse Oximetry 97 02/13/25 21:25 Oxygen Delivery Me thod Room Air 02/13/25 21:25 MDM - Abdominal Pain Medical Decision Making Patient feels better after IV medications given here. His vital signs are stable. Blood work overall is nonactionable. He has chronic thrombocytopenia at his baseline today. His INR is stable. T. bili/LFTs/lipase are all normal. He has no ascites requiring paracentesis today. No evidence for SBP. Abdominal examination is nonsurgical. Patient will be allowed discharge. He states he does have a provider that follows him at [facility], Dr. Crespo, that is scheduled to be there tomorrow for follow up. He will also follow-up with his normal PCP, Dorita Flaherty. Differential Diagnosis Likely abdominal pain Medical Records I reviewed the patient's medical records. Lab Data I reviewed the patient's lab results. 02/13/25 20:34 02/13/25 20:34 Labs/Radiology: Laboratory Results WBC 7.46 10^3/uL (3.29-11.43) 02/13/25 20: RBC 4.59 10^6/uL (3.85-5.65) 02/13/25 20: Hgb 13.80 g/dL (11.27-16.99) 02/13/25 20: Hct 41.4 % (37-53) 02/13/25: MCV 90.2 fl (82-101) 02/13/25 20: MCH 30.1 pg (27-33) 02/13/25 20: MCHC 33.3 g/dL (30-55) 02/13/25 20: RDW 13.6 % (12.1-15.1) 02/13/25: Plt Count 91 10^3/cmm (157-399) L 02/13/25: MPV 10.7 fL (7.4-10.4) H 02/13/25 20: Neut % (Auto) 72.5 % 02/13/25: Lymph % (Auto) 14.2 % 02/13/25 20:34 [place] % (Auto) 8.7 % 02/13/25: Eos % (Auto) 3.5 % 02/13/25: Baso % (Auto) 0.8 % 02/13/25: Neut # (Auto) 5.41 10^3/uL (1.8-7.7) 02/13/25 20:34 Lymph # (Auto) 1.1 10^3/uL (0.8-4.8) 02/13/25 20:34 [place] # (Auto) 0.7 10^3/uL (0.2-0.9) 02/13/25 20:34 Eos # (Auto) 0.3 10^3/uL (0.0-0.8) 02/13/25 20: Baso # (Auto) 0.1 10^3/uL (0.0-0.1) 02/13/25 20:34 Nucleated RBC % (auto) 0 % 02/13/25: Nucleated RBCs # 0.0 /100WBC 02/13/25 20: PT 16.40 SECONDS (12.1-14.9) H 02/13/25 20: INR 1.24 (0.8-1.2) H 02/13/25:34 APTT 32.8 SECONDS (23.9-36.7) 02/13/25 20:34 Sodium 140 mmol/L (136-145) 02/13/25 20:34 Potassium 4.3 mmol/L (3.5-5.1) 02/13/25: Chloride 102 mmol/L (98-107) 02/13/25: Carbon Dioxide 27 mmol/L (22-29) 02/13/25:34 Anion Gap 15.3 (5-19) 02/13/25:34 BUN 17 mg/dL (6-20) 02/13/25: Creatinine 1.1 mg/dL (0.7-1.2) 02/13/25 20:34 GFR Calculation 68.8 mL/min (90-130) L 02/13/25: Glucose 169 mg/dL (65-115) H 02/13/25: Calculated Osmolality 295 mOsm/kg (285-295) 02/13/25: Calcium 9.4 mg/dL (8.5-10.5) 02/13/25:34 Total Bilirubin 1.2 mg/dL (0.15-1.2) 02/13/25: AST 25 U/L (0-40) 02/13/25: ALT 24 U/L (0-41) 02/13/25 20:34 Alkaline Phosphatase 103 U/L (40-130) 02/13/25 20: Total Protein 7.4 g/dL (6.6-8.7) 02/13/25 20:34 Albumin 4.3 g/dL (3.5-5.2) 02/13/25 20:34 Globulin 3.1 g/dL (1.3-4.6) 02/13/25 20:34 Lipase 50 U/L (13-60) 02/13/25 20:34 No radiology studies performed this visit Discharge Plan Discharge Patient Disposition: Home Clinical Impression: 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, Thrombocytopenia, Chronic abdominal pain Condition: Stable Prescriptions: No Action allopurinol 100 mg tablet 100 mg PO DAILY PRN (Reason: GOUT) isosorbide mononitrate 30 mg tablet extended release 24 hr 30 mg PO DAILY Qty: 90 3RF atorvastatin [Lipitor] 40 mg tablet 40 mg PO BID sucralfate 1 gram tablet 1 g PO BID hydroxyzine HCl 25 mg tablet 25 mg PO BID PRN escitalopram oxalate 5 mg tablet 5 mg PO DAILY lactulose 10 gram/15 mL solution 15 g PO BID multivitamin [Daily Multi-Vitamin] Tablet 1 tab PO QAM Qty: 60 0RF silver sulfadiazine 1 % cream 1 applic topical DAILY 14 Days Qty: 50 0RF Rx Instructions: apply a 1.5 mm thickness acetaminophen-codeine 300-30 mg tablet 1 tab PO Q8H PRN (Reason: pain) 7 Days Qty: 21 0RF Plavix 75 mg tablet 75 mg PO DAILY@0700 Qty: 90 3RF nitroglycerin 0.4 mg tablet, sublingual 0.4 mg SUBLINGUAL Q5M PRN (Reason: chest pain) 30 Days Qty: 30 3RF Rx Instructions: until response; do not exceed 3 doses per episode aspirin 81 mg tablet,chewable 81 mg PO DAILY@0700 Qty: 90 3RF insulin lispro [Humalog KwikPen Insulin] 100 unit/mL insulin pen 3 unit SUBCUT TID Qty: 15 3RF levetiracetam [Keppra] 1,000 mg tablet 1,000 mg PO BID 90 Days Qty: 180 3RF bacitracin 500 unit/gram ointment 1 applic topical DAILY Qty: 14 0RF acetaminophen [Tylenol Arthritis Pain] 650 mg tablet extended release 650 mg PO Q8H PRN (Reason: pain) Qty: 30 0RF lisinopril 20 mg Tablet 40 mg PO DAILY Qty: 60 1RF naproxen [Naprosyn] 500 mg tablet 500 mg PO BID PRN (Reason: pain) Qty: 20 0RF methocarbamol 750 mg tablet 750 mg PO TID PRN (Reason: back pain) Qty: 15 0RF levothyroxine 150 mcg tablet 150 mcg PO DAILY Rx Instructions: TAKE 1 TABLET BY MOUTH EVERY DAY metoprolol tartrate 50 mg Tablet 50 mg PO DAILY calcium carbonate-vitamin D3 [Calcium 600 + D(3)] 600 mg-10 mcg (400 unit) Tablet 1 tab PO DAILY insulin glargine [Lantus U-100 Insulin] 100 unit/mL solution 15 unit SUBCUT DAILY Qty: 10 0RF pantoprazole 40 mg Tablet,Delayed Release (Dr/Ec) 40 mg PO Q12H 30 Days Qty: 60 0RF Discharge Orders: Discharge ED (Routine); Ordered 02/13/25 Ordered By: Kristin Rodriguez Referrals: Dorita Flaherty FNP [Primary Care Provider, Unknown] Patient Instructions: Abdominal Pain (ED), Patient Portal & [facility] Instructions Activity Restrictions/Additional Instructions: Please follow-up with your primary care provider or the provider through your residence next week for reevaluation of symptoms do not improve. Print Language: Divehi Coding Level of Care Code ED Finished Cloth Examiner for Marva Bunn
[2025-02-13 20:43] LABS: Hematocrit 41.4 % (37-53); Hemoglobin 13.80 g/dL (11.27-16.99); Mean Corpuscular HGB Conc 33.3 g/dL (30-55); Mean Corpuscular Hemoglobin 30.1 pg (27-33); Mean Corpuscular Volume 90.2 fl (82-101); Nucleated Red Blood Cells % 0 %; Platelet Count 91 10^3/cmm (157-399); Red Blood Count 4.59 10^6/uL (3.85-5.65); White Blood Count 7.46 10^3/uL (3.29-11.43)
[2025-02-13 21:12] LABS: INR 1.24 (0.8-1.2); Prothrombin Time 16.40 SECONDS (12.1-14.9)
[2025-02-13 21:13] LABS: Partial Thromboplastin Time 32.8 SECONDS (23.9-36.7)
[2025-02-13] MEDS: ondansetron 2 mg/ML SDV 2 mL 4 MG IVP (21:20)
[2025-02-13] MEDS: morphine 4 mg/mL SDV 1 mL IVP (21:22)
[2025-02-13 21:24] LABS: Alanine Aminotransferase 24 U/L (0-41); Albumin Level 4.3 g/dL (3.5-5.2); Alkaline Phosphatase 103 U/L (40-130); Anion Gap 15.3 (5-19); Aspartate Amino Transferase 25 U/L (0-40); Blood Urea Nitrogen 17 mg/dL (6-20); Calcium 9.4 mg/dL (8.5-10.5); Carbon Dioxide 27 mmol/L (22-29); Chloride 102 mmol/L (98-107); Creatinine Clr Calc Pharmacy 89.4935; Globulin 3.1 g/dL (1.3-4.6); Glucose 169 mg/dL (65-115); Lipase 50 U/L (13-60); Osmolality Calculated 295 mOsm/kg (285-295); Potassium 4.3 mmol/L (3.5-5.1); Sodium 140 mmol/L (136-145); Total Protein 7.4 g/dL (6.6-8.7)
[2025-02-13 21:25] VITALS: BP 128/60; PULSE 72; O2SAT 97
[2025-02-13 21:55] VITALS: BP 118/71; PULSE 66; O2SAT 97
== END 2025-02-13 21:56 | disposition home or self-care (01) ==
PROVIDERS: Emergency Provider Physician Assistant; PCP Nurse Practitioner Family
DX: K74.60 Unspecified cirrhosis of liver (principal); D69.6 Thrombocytopenia, unspecified; R10.9 Unspecified abdominal pain; Z79.82 Long term (current) use of aspirin; Z79.4 Long term (current) use of insulin; Z72.0 Tobacco use; I25.118 Atherosclerotic heart disease of native coronary artery with other forms of angina pectoris; E11.9 Type 2 diabetes mellitus without complications; I10 Essential (primary) hypertension
CPT/HCPCS: 36415; 80053; 83690; 85025; 85610; 85730; 96374; 96375; 99284; J2270; J2405

== ENCOUNTER 2025-02-20 13:08 | Emergency (ER) | payer MEDICAID, SELFPAY ==
--- OUTSIDE RECORDS SUMMARY | 2012-12-08 11:00 | XMS_ITS | Continuity of Care Document ---
Author Organization [facility] Address [address] [facility] [address] [place] [address] Phone Care Team Providers Care Flight Operation Coordinator Name Role Phone Ruben OTR/L, CHT, Pepper Unavailable Unavailable Procedures Procedure Date OT EVALUATION THERAPEUTIC EXERCISES ORTHOTIC FITTING Forearm Non-compressive stockinette per foot Nov Advance Directives Directive Yes / No Effective Date File Name No Information Encounters Encounter Description Practice Location Reason(s) For Visit Diagnoses Date Provider Providers Copied on Encounter [facility], [address] [place], [place] [address], [place], [place], [address], tel:[phone] [place] Pain in joint involving hand [address] [address] [facility], [address], [place], [address], . tel:[phone] Referring Provider: Pb Live 224 [facility] Suite [facility], [address]. tel:[phone] Family History Family Member Type Diagnosis Age At Onset No Information Payers Payer name Insurance type Covered libertarian ID Errol vance(s) Aetna CI [id number] [facility] 2012 Social History Type Description Quantity [...]
--- OUTSIDE RECORDS SUMMARY | 2016-02-20 04:45 | XMS_ITS | Continuity of Care Document ---
Author Organization [facility] Address [address] [place] [address] [address] [place] [address] Phone Care Team Providers Care Licensed Retail Supervisor Name Role Phone Anatoly Whitmore MD Unavailable [...] Provider Providers Copied on Encounter [facility], [address] [place] [address], [place], [place], [address], tel:[phone] OPH CONSULT ZACH DE LA TORRE lid lesion (chief complaint) Papilloma of right eyelid Amanda Ledbetter. [address] [place] [address], [facility] 201, [place], [address], [place]. tel:[phone] Referring Provider: Anatoly Nicolas, [address] [place] [address] 201, [place], [address]. tel:[phone] Family History Family Member Type Diagnosis Age At Onset No Information Payers Payer name Insurance type Covered green party ID Authoriza tion(s) AETNA CI [id number] Social History Type Description Quantity Date Captured [...] The condition is significant. Pt states BENJY [place] to have the lesion evaluated. Pt denies [...] The condition is significant. Pt states BENJY [place] to have the lesion evaluated. Pt denies [...]
[2025-02-20 13:15] VITALS: BP 156/96; PULSE 62; TEMP 36.5; O2SAT 98
--- NOTE | 2025-02-20 13:18 | W.ED.GENADLT ---
HPI - General Adult General: Chief complaint: Abdominal Pain Stated complaint: R side abd pain, nausea Time Seen by Provider: 02/20/25 13:15 History of Present Illness: 60-year-old male who presents emergency room with right-sided abdominal pain with nausea has been going on for last several weeks he has had multiple ER visits for it. Patient has a guardian when registration contacted the guardian the guardian declined to give permission for the ER visit. To satisfy her EMTALA requirements I seen the patient along with the triage nurse in the triage area and did a history and physical as a medical screening evaluation for emergent conditions. Also reviewed the patient's previous visits and previous lab work. Patient is complaining of right sided abdominal pain mid abdomen worse when he moves twists or coughs. He denies fever sweats chills dysuria urgency or frequency no vomiting or diarrhea. Associated symptoms: Deny chest pain, dyspnea or rash Related Data Home Medications ?Medication ?Instructions ?Recorded ?Confirmed allopurinol 100 mg tablet 100 mg PO DAILY PRN GOUT 12/13/20 01/20/25 levothyroxine 150 mcg tablet 150 mcg PO DAILY 02/18/24 01/20/25 calcium 600 mg (as 1 tab PO DAILY 05/29/24 01/20/25 carbonate)-vitamin D3 10 mcg (400 unit) tablet (Calcium 600 + D(3)) metoprolol tartrate 50 mg tablet 50 mg PO DAILY 05/29/24 01/20/25 atorvastatin 40 mg tablet (Lipitor) 40 mg PO BID 07/29/24 01/20/25 escitalopram oxalate 5 mg tablet 5 mg PO DAILY 07/29/24 01/20/25 hydroxyzine HCl 25 mg tablet 25 mg PO BID PRN 07/29/24 01/20/25 lactulose 10 gram/15 mL oral 15 g PO BID 07/29/24 01/20/25 solution sucralfate 1 gram tablet 1 g PO BID 07/29/24 01/20/25 Previous Rx's ?Medication ?Instructions ?Recorded methocarbamol 750 mg tablet 750 mg PO TID PRN back pain #15 04/14/23 tabs aspirin 81 mg chewable tablet 81 mg PO DAILY@0700 #90 tabs 08/01/23 clopidogrel 75 mg tablet (Plavix) 75 mg PO DAILY@0700 #90 tabs 03/22/24 nitroglycerin 0.4 mg sublingual 0.4 mg sublingual Q5M PRN chest 08/01/23 tablet pain 30 days #30 tabs bacitracin 500 unit/gram topical 1 applic topical DAILY #14 grams 09/25/23 ointment insulin glargine 100 unit/mL 15 unit (0.15 mL) SUBCUT DAILY #10 06/14/24 subcutaneous solution (Lantus mL U-100 Insulin) pantoprazole 40 mg tablet,delayed 40 mg PO Q12H 30 days #60 tabs 06/14/24 release isosorbide mononitrate 30 mg 30 mg PO DAILY #90 tabs 06/16/24 tablet,extended release 24 hr acetaminophen 650 mg 650 mg PO Q8H PRN pain #30 tabs 06/21/24 tablet,extended release (Tylenol Arthritis Pain) lisinopril 20 mg tablet 40 mg (2 x 20 mg) PO DAILY #60 tabs 06/21/24 multivitamin (Daily Multi-Vitamin 1 tab PO QAM #60 tabs 07/29/24 tablet) acetaminophen 300 mg-codeine 30 mg 1 tab PO Q8H PRN pain 7 days #21 08/12/24 tablet tabs silver sulfadiazine 1 % topical 1 applic topical DAILY 2 weeks #50 08/12/24 cream grams insulin lispro 100 unit/mL 3 unit (0.03 mL) SUBCUT TID #15 mL 10/05/24 subcutaneous pen (Humalog KwikPen (U-100) Insulin) levetiracetam 1,000 mg tablet 1,000 mg PO BID 90 days #180 tabs 12/02/24 (Keppra) naproxen 500 mg tablet (Naprosyn) 500 mg PO BID PRN pain #20 tabs 01/30/25 Allergies Allergy/AdvReac Type Severity Reaction Status Date / Time cephalexin (From Keflex) Allergy Unknown Verified 02/20/25 13:20 Cephalosporins Allergy hives Verified 02/20/25 13:20 Review of Systems Const: Denies: fever(s) or chills Card: Denies: chest pain Resp: Denies: dyspnea GI: Denies: abdominal pain : Denies: dysuria, urinary frequency or urinary urgency Musc: Denies: neck pain or back pain Skin/Breast: Denies: rash PFSH ED PFSH: Medical History Thrombocytopenia 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 Chest pain Unstable angina 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 History of opioid abuse Mild cognitive impairment with memory loss Lacunar stroke Splenomegaly Erectile dysfunction Hepatosplenomegaly Enlarged prostate Acute kidney injury Coronary artery disease Chronic low back pain Dyslipidemia Benign essential hypertension with target blood pressure below 140/90 Type 2 diabetes mellitus Atypical chest pain Epilepsy Obesity Glucose intolerance Smoker Hypothyroidism Surgical History History of cholecystectomy H/O eye surgery right eye History of PTCA H/O heart artery stent 07/11/2020-Cardiac stent placement mid LAD H/O umbilical hernia repair History of appendectomy Family History Father , at age 74 Family history of premature coronary artery disease Had a myocardial infarction in his 40s. Diabetes CAD (coronary artery disease) Chronic kidney disease (CKD) Stroke Brother Family history of premature coronary artery disease CAD (coronary artery disease) Had NH in the 50s Diabetes Stroke Grandmother CAD (coronary artery disease) Diabetes Grandfather CAD (coronary artery disease) Mother , at age 84 CAD (coronary artery disease) Cancer Diabetes COVID-19 Family/Other Lung disease Denies family history of Clotting disorder Dementia Suicide Anesthesia complication Bleeding disorder Social History Smoking and tobacco/nicotine status: current every day tobacco/nicotine user Alcohol intake: current Alcohol intake frequency: holidays/special occasions only Substance/Drug Use: never Household members: spouse Housing: House Marital status: Current occupational status: disabled Physical Exam Const: COMMON NORMALS: no acute distress GENERAL APPEARANCE: cooperative and comfortable ORIENTATION/CONSCIOUSNESS: Yes awake, Yes oriented to person, Yes oriented to place and Yes oriented to time HENMT: COMMON NORMALS: normocephalic, atraumatic and hearing grossly normal bilaterally HEAD & SCALP: normocephalic and atraumatic Resp: COMMON NORMALS: normal respiratory effort, No retractions, No use of accessory muscles and clear to auscultation bilaterally AUSCULTATION: clear to auscultation bilaterally Cardio: COMMON NORMALS: regular rate, regular rhythm and No murmurs present (Cardio) RATE: regular rate RHYTHM: regular rhythm GI: COMMON NORMALS: No hepatosplenomegaly present AUSCULTATION: Yes normoactive bowel sounds PALPATION: Yes Tenderness to palpation present (GI) (Mild tenderness to the right mid abdomen), No Guarding due to palpation present (GI) and Yes No hepatosplenomegaly present Extremity: COMMON NORMALS: normal to inspection, capillary refill normal, no clubbing, cyanosis or edema, no calf tenderness and no pedal edema Neuro: SENSORIUM/ORIENTATION: Yes oriented to person, Yes oriented to place and Yes oriented to time Skin: COMMON NORMALS: no rashes or lesions noted GENERAL SKIN EXAM: no rashes or lesions noted Course Vital Signs: Vital signs: Vital Signs Temperature 97.7 F 02/20/25 13:15 Pulse Rate 62 02/20/25 13:15 Blood Pressure 156/96 02/20/25 13:15 Pulse Oximetry 98 02/20/25 13:15 Oxygen Delivery Me thod Room Air 02/20/25 13:15 MDM - General Adult Medical Decision Making Light touch precipitates discomfort on the right mid abdomen on exam there is no guarding or rebound no peritoneal signs I believe these probably having some abdominal wall pain. Reviewed his previous lab work he has has some thrombocytopenia but he denies any overt bleeding he denies any hematemesis coffee-ground emesis medic easier melena no hematuria. He is not having any dysuria urgency or frequency asked him several times regarding this. On exam I do not get the sense he has not acute cholecystitis or pain at McBurney's point suggestive of acute appendicitis. Discussed with the patient at this point since his guardian had not given us permission for a full evaluation and we did done a medical screening exam that does not suggest any emergent condition at this time we will discharge him home. Encouraged him to discuss with his guardian and follow-up with his primary care doctor if his any new symptoms change he can return to the emergency room. Medical Records I reviewed the patient's medical records. No radiology studies performed this visit Discharge Plan Discharge Patient Disposition: Home Clinical Impression: Abdominal wall pain Condition: Stable Prescriptions: No Action allopurinol 100 mg tablet 100 mg PO DAILY PRN (Reason: GOUT) isosorbide mononitrate 30 mg tablet extended release 24 hr 30 mg PO DAILY Qty: 90 3RF atorvastatin [Lipitor] 40 mg tablet 40 mg PO BID sucralfate 1 gram tablet 1 g PO BID hydroxyzine HCl 25 mg tablet 25 mg PO BID PRN escitalopram oxalate 5 mg tablet 5 mg PO DAILY lactulose 10 gram/15 mL solution 15 g PO BID multivitamin [Daily Multi-Vitamin] Tablet 1 tab PO QAM Qty: 60 0RF silver sulfadiazine 1 % cream 1 applic topical DAILY 14 Days Qty: 50 0RF Rx Instructions: apply a 1.5 mm thickness acetaminophen-codeine 300-30 mg tablet 1 tab PO Q8H PRN (Reason: pain) 7 Days Qty: 21 0RF Plavix 75 mg tablet 75 mg PO DAILY@0700 Qty: 90 3RF nitroglycerin 0.4 mg tablet, sublingual 0.4 mg SUBLINGUAL Q5M PRN (Reason: chest pain) 30 Days Qty: 30 3RF Rx Instructions: until response; do not exceed 3 doses per episode aspirin 81 mg tablet,chewable 81 mg PO DAILY@0700 Qty: 90 3RF insulin lispro [Humalog KwikPen Insulin] 100 unit/mL insulin pen 3 unit SUBCUT TID Qty: 15 3RF levetiracetam [Keppra] 1,000 mg tablet 1,000 mg PO BID 90 Days Qty: 180 3RF bacitracin 500 unit/gram ointment 1 applic topical DAILY Qty: 14 0RF acetaminophen [Tylenol Arthritis Pain] 650 mg tablet extended release 650 mg PO Q8H PRN (Reason: pain) Qty: 30 0RF lisinopril 20 mg Tablet 40 mg PO DAILY Qty: 60 1RF naproxen [Naprosyn] 500 mg tablet 500 mg PO BID PRN (Reason: pain) Qty: 20 0RF methocarbamol 750 mg tablet 750 mg PO TID PRN (Reason: back pain) Qty: 15 0RF levothyroxine 150 mcg tablet 150 mcg PO DAILY Rx Instructions: TAKE 1 TABLET BY MOUTH EVERY DAY metoprolol tartrate 50 mg Tablet 50 mg PO DAILY calcium carbonate-vitamin D3 [Calcium 600 + D(3)] 600 mg-10 mcg (400 unit) Tablet 1 tab PO DAILY insulin glargine [Lantus U-100 Insulin] 100 unit/mL solution 15 unit SUBCUT DAILY Qty: 10 0RF pantoprazole 40 mg Tablet,Delayed Release (Dr/Ec) 40 mg PO Q12H 30 Days Qty: 60 0RF Discharge Orders: Discharge ED (Routine); Ordered 02/20/25 Ordered By: Mendel Bush Referrals: Dorita Flaherty FNP [Primary Care Provider, Unknown] Discharge Diet: Usual diet Discharge Activity: Resume usual activity Patient Instructions: Opioid Safety, Pain Management, Patient Portal & Haley Instructions Activity Restrictions/Additional Instructions: Thank you for choosing [facility] for your healthcare needs today. It is very important that you follow up as instructed or that you return to the Emergency Department should you have concerns or if your condition changes or worsens in any way. Emergency department visits are focused on emergent conditions, in some cases you may require further evaluation on an outpatient basis. You were seen in the emergency room with complaints of abdominal pain. When you contact your guardian for permission to see you they declined to give permission. We are required to do a medical screening exam which is a basic screening exam to check for emergent medical conditions. We did a history and physical exam as well as took your vitals. There is no sign of any emergent medical condition at this time. I also reviewed your other recent visits. On exam your abdominal pain seems to be focal to the abdominal on the right side. Recommend that you contact your guardian and discussed this. If you have any worsening of your symptoms you are welcome to return to be reevaluated. (Please note that included in your discharge packet is information concerning opioid safety and pain management. This information is given to all patients were discharged from the ER regardless of their discharge diagnosis or the medicines they usually take or are prescribed.) Print Language: Albanian Coding Level of Care Code ED Curing Finisher for Marva Bunn
--- OUTSIDE RECORDS SUMMARY | 2025-02-20 13:25 | XMS_ITS | Clinical Summary ---
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
== END 2025-02-20 13:48 | disposition home or self-care (01) ==
PROVIDERS: Emergency Provider Family Medicine; PCP Nurse Practitioner Family
DX: R10.9 Unspecified abdominal pain (principal); Z79.82 Long term (current) use of aspirin; Z79.4 Long term (current) use of insulin; Z72.0 Tobacco use; E78.5 Hyperlipidemia, unspecified; I25.118 Atherosclerotic heart disease of native coronary artery with other forms of angina pectoris; I10 Essential (primary) hypertension; E11.9 Type 2 diabetes mellitus without complications
CPT/HCPCS: 99281

== ENCOUNTER 2025-03-09 13:54 | Oncology outpatient (recurring) (ONCR) | payer MEDICAID, SELFPAY | END 2025-03-11 23:59 | disposition home or self-care (01) | PROVIDERS: PCP Nurse Practitioner Family; Visit Provider Anesthesiology Pain Medicine | DX: D69.6 Thrombocytopenia, unspecified (principal); F17.210 Nicotine dependence, cigarettes, uncomplicated; R03.0 Elevated blood-pressure reading, without diagnosis of hypertension; K74.60 Unspecified cirrhosis of liver; R18.8 Other ascites; K76.6 Portal hypertension; R16.1 Splenomegaly, not elsewhere classified; D64.9 Anemia, unspecified | CPT/HCPCS: 99213 ==

== ENCOUNTER 2025-03-27 14:51 | Emergency (ER) | payer MEDICAID, SELFPAY ==
--- OUTSIDE RECORDS SUMMARY | 2012-12-08 10:00 | XMS_ITS | Continuity of Care Document ---
Author Organization [facility] Address [address] [place] [address] Phone Care Team Providers Care Cooler Deliverer Name Role Phone Ruben OTR/L, CHT, Pepper Unavailable Unavailable Procedures Procedure Date OT EVALUATION THERAPEUTIC EXERCISES ORTHOTIC FITTING Forearm Non-compressive stockinette per foot Nov Advance Directives Directive Yes / No Effective Date File Name No Information Encounters Encounter Description Practice Location Reason(s) For Visit Diagnoses Date Provider Providers Copied on Encounter [facility], [address] [place], [place] [address], [place], [place], [address], tel:[phone] [place] Pain in joint involving hand 0201 3 Ruben Pabon. [address] [facility], [address], [place], [address], . tel:[phone] Referring Provider: Pb Live 224 [facility] [address] [facility] [place], [address]. tel:[phone] Family History Family Member Type Diagnosis Age At Onset No Information Payers Payer name Insurance type Covered democrat ID Errol vance(s) Aetna CI [id number] [facility] 2012 Social History Type Description Quantity Date Captured Comments Sex Male Smoking Status No Information Chief Complaint And Reason For Visit No Information Reason For Referral Reason For Referral No Information History Of Present Illness Encounter Date Complaint History Of Prese nt Illness No Information Functional Status Date Functional Assessmen t No Information Instructions Date Instruction Additional Infor mation No Information Assessments Type Assessment Date No Information Patient Care Teams Name Effective Dates (start - stop) Status Members No Information
--- OUTSIDE RECORDS SUMMARY | 2016-02-20 04:45 | XMS_ITS | Continuity of Care Document ---
Author Organization [facility] Address [address] [place] [address] [address] [place] [address] Phone Care Team Providers Care Internet Designer Name Role Phone Anatoly Whitmore MD Unavailable Unavailable Allergies, Adverse Reactions, Alerts Substance Reaction Status Criticality No Known Allergies Active No Inform ation Medications Medication Instructions Dosage Effective Dates (start - stop) Status Comments NOVOLOG (unknown strength) inject by subcutaneous route per prescriber's instructions. Insulin dosing requires individualization. Not Available - Active lantus (unknown strength) Not Available - Active Yolie-D 12 Hour 60 mg-120 mg tablet,extended release take 1 tablet by oral route 2 times every day 1.00 tablet - Active probiotic (unknown strength) Not Available - Active MULTIVITAMIN (unknown strength) Not Available - Active Procedures Procedure Date EXC FACE-MM B9+SURENDRA 0.5 < CM Advance Directives Directive Yes / No Effective Date File Name No Information Encounters Encounter Description Practice Location Reason(s) For Visit Diagnoses Date Provider Providers Copied on Encounter [facility], [address] [place] [address], [place], [place], [address], tel:[phone] OPH CONSULT ZACH DE LA TORRE lid lesion (chief complaint) Papilloma of right eyelid Amanda Ledbetter. [address] [place] [address], [facility] [address], [place], [address], [place]. tel:[phone] Referring Provider: Anatoly Nicolas, [address] [place] [address] [address], [place], [address]. tel:[phone] Family History Family Member Type Diagnosis Age At Onset No Information Payers Payer name Insurance type Covered constitution party ID Authoriza tion(s) AETNA CI [id number] Social History Type Description Quantity Date Captured Comments Alcohol Use Details Caffeine Use Details No Tobacco Use Status No Information Smoking Status Never smoker Non-Smoking Tobacco Use Details : No Details Available : No Details Available Sex Male Chief Complaint And Reason For Visit From encounter dated '02/20/2016 10:45'. lid lesion (chief complaint). Description: The 51 year old male presents for evaluation of lid lesion in the RLL. It started about 1 year(s) ago. The symptom is constant. The condition is significant. Pt states BENJY [place] to have the lesion evaluated. Pt denies any pain or blurred [place]. Reason For Referral Reason For Referral No Information History Of Present Illness Encounter Date Complaint History Of Prese nt Illness lid lesion The 51 year old male presents for evaluation of lid lesion in the RLL. It started about 1 year(s) ago. The symptom is constant. The condition is significant. Pt states BENJY [place] to have the lesion evaluated. Pt denies any pain or blurred [place]. Functional Status Date Functional Assessmen t No Information Instructions Date Instruction Additional Infor mation RTO prn Related to Papil vidal of right eyelid Impression/Plan - Di scussed diagnosis in detail with patient. Discussed treatment options with patient. Removed in office today. no medication needed at this time. Related to Papilloma of right eyelid Follow up - RTO prn Related to P apilloma of right eyelid Assessments Type Assessment Date assessment Papilloma of right eyelid impression Papilloma of right eyelid: D23.1 1. OD. Patient Care Teams Name Effective Dates (start - stop) Status Members No Information
[2025-03-27 14:53] VITALS: BP 138/83; PULSE 67; RESP 16; TEMP 36.7; O2SAT 98; BMI 29.2
--- NOTE | 2025-03-27 14:54 | W.ED.ABDPA2 ---
HPI - Abdominal Pain General: Chief Complaint: Abdominal Pain Stated Complaint: rlq abd pain Time Seen by Provider: 03/27/25 14:51 Source: patient and EMS Mode of arrival: EMS Limitations: no limitations History of Present Illness: 60-year-old male that is well-known to the ER has a history of chronic abdominal pain states has been having right lower quadrant abdominal pain over the last 2 days. States been a sharp pain rated 4 out of 10 he denies any vomiting or diarrhea denies any fevers. Denies any worsening factors Related Data Home Medications ?Medication ?Instructions ?Recorded ?Confirmed allopurinol 100 mg tablet 100 mg PO DAILY PRN GOUT 12/13/20 03/09/25 levothyroxine 150 mcg tablet 150 mcg PO DAILY 02/18/24 03/09/25 calcium 600 mg (as 1 tab PO DAILY 05/29/24 03/09/25 carbonate)-vitamin D3 10 mcg (400 unit) tablet (Calcium 600 + D(3)) metoprolol tartrate 50 mg tablet 50 mg PO DAILY 05/29/24 03/09/25 atorvastatin 40 mg tablet (Lipitor) 40 mg PO BID 07/29/24 03/09/25 escitalopram oxalate 5 mg tablet 5 mg PO DAILY 07/29/24 03/09/25 hydroxyzine HCl 25 mg tablet 25 mg PO BID PRN 07/29/24 03/09/25 lactulose 10 gram/15 mL oral 15 g PO BID 07/29/24 03/09/25 solution sucralfate 1 gram tablet 1 g PO BID 07/29/24 03/09/25 Previous Rx's ?Medication ?Instructions ?Recorded methocarbamol 750 mg tablet 750 mg PO TID PRN back pain #15 04/14/23 tabs aspirin 81 mg chewable tablet 81 mg PO DAILY@0700 #90 tabs 08/01/23 clopidogrel 75 mg tablet (Plavix) 75 mg PO DAILY@0700 #90 tabs 08/01/23 nitroglycerin 0.4 mg sublingual 0.4 mg sublingual Q5M PRN chest 08/01/23 tablet pain 30 days #30 tabs bacitracin 500 unit/gram topical 1 applic topical DAILY #14 grams 09/25/23 ointment insulin glargine 100 unit/mL 15 unit (0.15 mL) SUBCUT DAILY #10 06/14/24 subcutaneous solution (Lantus mL U-100 Insulin) pantoprazole 40 mg tablet,delayed 40 mg PO Q12H 30 days #60 tabs 06/14/24 release isosorbide mononitrate 30 mg 30 mg PO DAILY #90 tabs 06/16/24 tablet,extended release 24 hr acetaminophen 650 mg 650 mg PO Q8H PRN pain #30 tabs 06/21/24 tablet,extended release (Tylenol Arthritis Pain) lisinopril 20 mg tablet 40 mg (2 x 20 mg) PO DAILY #60 tabs 06/21/24 multivitamin (Daily Multi-Vitamin 1 tab PO QAM #60 tabs 07/29/24 tablet) acetaminophen 300 mg-codeine 30 mg 1 tab PO Q8H PRN pain 7 days #21 08/12/24 tablet tabs silver sulfadiazine 1 % topical 1 applic topical DAILY 2 weeks #50 08/12/24 cream grams insulin lispro 100 unit/mL 3 unit (0.03 mL) SUBCUT TID #15 mL 10/05/24 subcutaneous pen (Humalog KwikPen (U-100) Insulin) levetiracetam 1,000 mg tablet 1,000 mg PO BID 90 days #180 tabs 12/02/24 (Keppra) naproxen 500 mg tablet (Naprosyn) 500 mg PO BID PRN pain #20 tabs 01/30/25 Allergies Allergy/AdvReac Type Severity Reaction Status Date / Time cephalexin (From Keflex) Allergy Unknown Verified 03/09/25 13:59 Cephalosporins Allergy hives Verified 03/09/25 13:59 Review of Systems GI: Reports: abdominal pain PFSH ED PFSH: Medical History (Updated 03/27/25 @ 15:31 by Kerry Jeter MD) Thrombocytopenia 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 Chest pain Unstable angina 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 History of opioid abuse Mild cognitive impairment with memory loss Lacunar stroke Splenomegaly Erectile dysfunction Hepatosplenomegaly Enlarged prostate Acute kidney injury Coronary artery disease Chronic low back pain Dyslipidemia Benign essential hypertension with target blood pressure below 140/90 Type 2 diabetes mellitus Atypical chest pain Epilepsy Obesity Glucose intolerance Smoker Hypothyroidism Surgical History History of cholecystectomy H/O eye surgery right eye History of PTCA H/O heart artery stent 07/11/2020-Cardiac stent placement mid LAD H/O umbilical hernia repair History of appendectomy Family History Father , at age 74 Family history of premature coronary artery disease Had a myocardial infarction in his 40s. Diabetes CAD (coronary artery disease) Chronic kidney disease (CKD) Stroke Brother Family history of premature coronary artery disease CAD (coronary artery disease) Had ND in the 50s Diabetes Stroke Grandmother CAD (coronary artery disease) Diabetes Grandfather CAD (coronary artery disease) Mother , at age 84 CAD (coronary artery disease) Cancer Diabetes COVID-19 Family/Other Lung disease Denies family history of Clotting disorder Dementia Suicide Anesthesia complication Bleeding disorder Social History Smoking and tobacco/nicotine status: current every day tobacco/nicotine user Alcohol intake: current Alcohol intake frequency: holidays/special occasions only Substance/Drug Use: never Household members: spouse Housing: House Marital status: Current occupational status: disabled Physical Exam Const: COMMON NORMALS: no acute distress, patient oriented x3 and healthy appearing HENMT: COMMON NORMALS: normocephalic and atraumatic HEAD & SCALP: normocephalic and atraumatic Neck/C-Spine: COMMON NORMALS: full ROM and supple Chest: COMMONS NORMALS: normal inspection of the chest and normal palpation of entire chest wall Resp: COMMON NORMALS: normal respiratory effort, No retractions, No use of accessory muscles and clear to auscultation bilaterally AUSCULTATION: clear to auscultation bilaterally Cardio: COMMON NORMALS: regular rate, regular rhythm and No murmurs present (Cardio) RATE: regular rate RHYTHM: regular rhythm GI: COMMON NORMALS: Normal to inspection, nondistended, normoactive bowel sounds present, Soft to palpation, non-tender and no masses PALPATION: Yes Soft to palpation Extremity: COMMON NORMALS: normal to inspection and full ROM Neuro: COMMON NORMALS: patient oriented x3, moves all extremities and no focal motor deficits Psych: COMMON NORMALS: mental status grossly normal, Normal thought process present and cooperative THOUGHT PROCESS: Normal thought process present Skin: COMMON NORMALS: no rashes or lesions noted and no wounds GENERAL SKIN EXAM: no rashes or lesions noted Course Vital Signs: Vital signs: Vital Signs Temperature 98.1 F 03/27/25 14:53 Pulse Rate 67 03/27/25 14:53 Respiratory Rate 17 03/27/25 15:09 Blood Pressure 138/83 03/27/25 14:53 Pulse Oximetry 97 03/27/25 15:09 Oxygen Delivery Me thod Room Air 03/27/25 14:53 MDM - Abdominal Pain Medical Decision Making 60-year-old male presents with abdominal pain has history of chronic abdominal pain in the past. Differential includes appendicitis, diverticulitis, pancreatitis. Patient's blood work here shows no significant abnormalities and white count here is normal. Patient here has no signs of pancreatitis. Patient has no signs of appendicitis or diverticulitis do not believe that he requires a CT scan at this time. His pain here has improved I did go over lab work findings with him he is follow-up with his PCP in 2 to 4 days and return if worsening he understands agrees to plan. Medical Records I reviewed the patient's medical records. Lab Data I reviewed the patient's lab results. 03/27/25 15:00 03/27/25 15:00 Labs/Radiology: Laboratory Results WBC 7.09 10^3/uL (3.29-11.43) 03/27/25 15:00 RBC 4.77 10^6/uL (3.85-5.65) 03/27/25 15:00 Hgb 14.30 g/dL (11.27-16.99) 03/27/25 15:00 Hct 42.4 % (37-53) 03/27/25 15:00 MCV 88.9 fl (82-101) 03/27/25 15:00 MCH 30.0 pg (27-33) 03/27/25 15:00 MCHC 33.7 g/dL (30-55) 03/27/25 15:00 RDW 13.5 % (12.1-15.1) 03/27/25 15:00 Plt Count 93 10^3/cmm (157-399) L 03/27/25 15:00 MPV 11.1 fL (7.4-10.4) H 03/27/25 15:00 Neut % (Auto) 69.0 % 03/27/25 15:00 Lymph % (Auto) 16.6 % 03/27/25 15:00 [facility] % (Auto) 8.3 % 03/27/25 15:00 Eos % (Auto) 4.7 % 03/27/25 15:00 Baso % (Auto) 1.0 % 03/27/25 15:00 Neut # (Auto) 4.89 10^3/uL (1.8-7.7) 03/27/25 15:00 Lymph # (Auto) 1.2 10^3/uL (0.8-4.8) 03/27/25 15:00 [facility] # (Auto) 0.6 10^3/uL (0.2-0.9) 03/27/25 15:00 Eos # (Auto) 0.3 10^3/uL (0.0-0.8) 03/27/25 15:00 Baso # (Auto) 0.1 10^3/uL (0.0-0.1) 03/27/25 15:00 Nucleated RBC % (auto) 0 % 03/27/25 15:00 Nucleated RBCs # 0.0 /100WBC 03/27/25 15:00 Sodium 140 mmol/L (136-145) 03/27/25 15:00 Potassium 4.0 mmol/L (3.5-5.1) 03/27/25 15:00 Chloride 104 mmol/L (98-107) 03/27/25 15:00 Carbon Dioxide 30 mmol/L (22-29) H 03/27/25 15:00 Anion Gap 10.0 (5-19) 03/27/25 15:00 BUN 14 mg/dL (6-20) 03/27/25 15:00 Creatinine 1.3 mg/dL (0.7-1.2) H 03/27/25 15:00 GFR Calculation 56.7 mL/min (90-130) L 03/27/25 15:00 Glucose 170 mg/dL (65-115) H 03/27/25 15:00 Calculated Osmolality 294 mOsm/kg (285-295) 03/27/25 15:00 Calcium 9.4 mg/dL (8.5-10.5) 03/27/25 15:00 Total Bilirubin 1.5 mg/dL (0.15-1.2) H 03/27/25 15:00 AST 30 U/L (0-40) 03/27/25 15:00 ALT 23 U/L (0-41) 03/27/25 15:00 Alkaline Phosphatase 95 U/L (40-130) 03/27/25 15:00 Total Protein 7.4 g/dL (6.6-8.7) 03/27/25 15:00 Albumin 4.4 g/dL (3.5-5.2) 03/27/25 15:00 Globulin 3.0 g/dL (1.3-4.6) 03/27/25 15:00 Lipase 46 U/L (13-60) 03/27/25 15:00 Urine Color Yellow (Yellow) 03/27/25 15: Urine Appearance Clear (CLEAR) 03/27/25 15: Urine pH 6.5 (5-7) 03/27/25 15: Ur Specific Marcell 1.008 (1.005-1.030) 03/27/25 15: Urine Protein Negative (Negative) 03/27/25 15: Urine Glucose (UA) Negative (Normal) 03/27/25 15: Urine Ketones Negative (Negative) 03/27/25 15: Urine Blood Negative (Negative) 03/27/25 15: Urine Nitrate Negative (Negative) 03/27/25 15: Urine Bilirubin Negative (Negative) 03/27/25 15: Urine Urobilinogen 1.0 mg/dL (Negative) 03/27/25 15: Ur Leukocyte Esterase Negative (Negative) 03/27/25 15: Urine RBC 0-2 /hpf (0-2) 03/27/25 15: Urine WBC 0-5 /hpf (0-5) 03/27/25 15:29 Ur Squamous Epith Cells 0-5 /hpf (0-5) 03/27/25 15: Amorphous Sediment Not Reportable 03/27/25: Urine Bacteria None seen /hpf (NONE) 03/27/25: Hyaline Casts 0-4 /lpf H 03/27/25 15: No radiology studies performed this visit Discharge Plan Discharge Patient Disposition: Home Clinical Impression: Abdominal pain Condition: Stable Prescriptions: No Action allopurinol 100 mg tablet 100 mg PO DAILY PRN (Reason: GOUT) isosorbide mononitrate 30 mg tablet extended release 24 hr 30 mg PO DAILY Qty: 90 3RF atorvastatin [Lipitor] 40 mg tablet 40 mg PO BID sucralfate 1 gram tablet 1 g PO BID hydroxyzine HCl 25 mg tablet 25 mg PO BID PRN escitalopram oxalate 5 mg tablet 5 mg PO DAILY lactulose 10 gram/15 mL solution 15 g PO BID multivitamin [Daily Multi-Vitamin] Tablet 1 tab PO QAM Qty: 60 0RF silver sulfadiazine 1 % cream 1 applic topical DAILY 14 Days Qty: 50 0RF Rx Instructions: apply a 1.5 mm thickness acetaminophen-codeine 300-30 mg tablet 1 tab PO Q8H PRN (Reason: pain) 7 Days Qty: 21 0RF Plavix 75 mg tablet 75 mg PO DAILY@0700 Qty: 90 3RF nitroglycerin 0.4 mg tablet, sublingual 0.4 mg SUBLINGUAL Q5M PRN (Reason: chest pain) 30 Days Qty: 30 3RF Rx Instructions: until response; do not exceed 3 doses per episode aspirin 81 mg tablet,chewable 81 mg PO DAILY@0700 Qty: 90 3RF insulin lispro [Humalog KwikPen Insulin] 100 unit/mL insulin pen 3 unit SUBCUT TID Qty: 15 3RF levetiracetam [Keppra] 1,000 mg tablet 1,000 mg PO BID 90 Days Qty: 180 3RF bacitracin 500 unit/gram ointment 1 applic topical DAILY Qty: 14 0RF acetaminophen [Tylenol Arthritis Pain] 650 mg tablet extended release 650 mg PO Q8H PRN (Reason: pain) Qty: 30 0RF lisinopril 20 mg Tablet 40 mg PO DAILY Qty: 60 1RF naproxen [Naprosyn] 500 mg tablet 500 mg PO BID PRN (Reason: pain) Qty: 20 0RF methocarbamol 750 mg tablet 750 mg PO TID PRN (Reason: back pain) Qty: 15 0RF levothyroxine 150 mcg tablet 150 mcg PO DAILY Rx Instructions: TAKE 1 TABLET BY MOUTH EVERY DAY metoprolol tartrate 50 mg Tablet 50 mg PO DAILY calcium carbonate-vitamin D3 [Calcium 600 + D(3)] 600 mg-10 mcg (400 unit) Tablet 1 tab PO DAILY insulin glargine [Lantus U-100 Insulin] 100 unit/mL solution 15 unit SUBCUT DAILY Qty: 10 0RF pantoprazole 40 mg Tablet,Delayed Release (Dr/Ec) 40 mg PO Q12H 30 Days Qty: 60 0RF Discharge Orders: Discharge ED (Routine); Ordered 03/27/25 Ordered By: Kerry Jeter Referrals: Dorita Flaherty FNP [Primary Care Provider, Unknown] - 4-7 days Discharge Diet: Advance as tolerated Discharge Activity: Resume usual activity Patient Instructions: Abdominal Pain (ED) Print Language: Vietnamese Coding Level of Care Code ED Customer Success Manager for Marva Bunn
--- OUTSIDE RECORDS SUMMARY | 2025-03-27 14:59 | XMS_ITS | Clinical Summary ---
Author Organization [facility] Address [address] [place] [address] Phone Care Team Providers Care Senior Care Provider Name Role Phone Unavailable Primary Care Provider Unavailabl e Social History Tobacco Use Types Packs/Day Years Used Date Smoking Tobacco: Never Assessed Sex and Gender Information Value Date Recorded Sex Assigned at Not on file Legal Sex Male 8:35 AM [employer] DES[employer] Gender Identity Not on file Sexual Orientation [...]
--- OUTSIDE RECORDS SUMMARY | 2025-03-27 14:59 | XMS_ITS | Continuity of Care Document ---
Author Organization [facility] Sergo Fregoso [facility] Praveen Flores, [place] ([facility]) Address [address] [place] [address] Care Team Providers Care English Professor Name Role Phone DORITA BLACKMON Primary Care Provider [phone] Assessment Encounter Date Assessment Date Assessment LastModified by Organization Details LastModified Time 03/22/2025 03/22/2025 He would like to have Kourtney removed as his guardian. He reports he is capable of taking care of himself without a guardian. She has not come to see him for about 6 months and she didn't send him any birthday money and has not called him. Dr. Crespo sees him at [place] but he hasn't spoken with him about it because he doesn't want Pepper the physical therapy manager to know because she will tell Kourtney. Not available 03/22/2025 13:30:39 Plan of Treatment Reminders Order Date Submit Date Provider Last Modified By Organization Details Last Modified Time Details Appointments OFFICE VISIT 20 2025 11:20A BUD GERMAN Not available Not available Not available Lab None recorded. Referral gastroent erologist referral [email or web address] [place] [address] Gastroenterol [facility] , [address] [facility] [address], [place], [address], 03/25/2025 10:54:54 Procedures None recorded. Surgeries None recorded. Imaging None recorded. Medication Orders tretinoin 0.025 % topical cream 2024 025 RICHELLE [facility], [address] [place], [address], 03/23/2025 15:13:24 Patient TargetsNo targets recorded. Patient Instructions Encounter Date Encounter Id Patient Instructions Last Modified By Organization Details Last Modified Time 03/22/2025 [id number] Call or return for questions or concerns. 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 5 15:35:29 Testoste jose carlos level below referenc e range 414279979 Active MARIO lai [facility] 4 13:32:03 Chronic back pain 970742152 Active MARIO lai [facility] 4 13:33:27 Splenome valentina 49988190 Active MARIO lia [facility] 4 13:36:56 Spinal stenosis of lumbar region 91259779 Active MARIO lai [facility] 4 13:36:52 Steatoti c liver disease 578024386 Active DORITA BLACKMON [address], [address] , [facility] 5 15:35:29 Myocardi al infarcti on 77670198 Active MARIO lai [facility] 4 13:35:39 Degenera tion of lumbar interver tebral disc 86061716 Active MARIO lai [facility] 4 13:33:44 Portal hyperten kimberly 29341881 Active MARIO TOBAR [facility] 4 13:36:07 History of drug abuse 270685364 Active MARIO TOBAR [facility] 4 13:34:51 History of placemen t of stent for coronary artery disease 631252233 Active MARIOHOLLEY TOBAR [facility] 4 13:34:56 Amnestic mild cognitiv e disorder 906395908 Active MARIOHOLLEY TOBAR [facility] 4 13:32:36 Epilepsy 23578473 Active MARIOHOLLEY TOBAR [facility] 4 13:34:19 Acute kidney injury 41475716 Completed 06/14/2024 MARIO TOBAR [facility] 5 13:02:39 Generali zed epilepsy 64945284 Active MARIOHOLLEY TOBAR [facility] 5 13:04:59 Lumbar disc prolapse with radiculo abisai 660171655 Active MARIOHOLLEY TOBAR [facility] 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 5 13:05:24 Arthropa thy of lumbar facet joint 150462314 Active MARIOHOLLEY TOBAR [facility] 5 13:02:55 Coronary atherosc lerosis 169398269 Active MARIOHOLLEY TOBAR [facility] 5 13:03:47 Hyperten sive disorder 95361772 Active 2021 [facility] HYPERTEN KIMBERLY Ng joelle, [facility] 4 12:32:01 Hypothyr oidism 15085619 [facility] 2022 [facility] 13:31:33 Type 2 diabetes mellitus 82708776 Active 2022 MARIO TOBAR joelle [facility] 4 13:31:57 Cirrhosi s of liver 11709492 Active 2022 DORITA BLACKMON, [address], [address] , [facility] 5 15:35:29 Coronary arterios clerosis 48639943 Active 2022 MARIO TOBAR joelle [facility] 4 13:33:36 Noncompl iance with treatmen t 4335025 Active 2023 MARIO lai [facility] 4 13:35:47 Chronic chest pain 39127856659 4101 Active 2023 MARIO TOBAR joelle [facility] 4 13:29:50 Chronic abdomina l pain 392696484 Active 2023 MARIO lai [facility] 4 13:30:13 Noncompl iance with medicati on regimen 375965159 Active 2023 MARIO lai [facility] 4 13:37:22 Headache 43704897 Active 2024 YOVANI lai [facility] 5 15:00:48 Problem Notes None recorded. Procedures Surgical History Date Name Laterality Status Provider Name and Address Organization Details Recorded Time 06/26/19 25 plain X-ray of chest completed [facility], Praveen 06/29/2024 12:00:13 06/11/19 25 plain X-ray of chest completed [facility], [place] 06/14/2024 12:57:44 06/11/[address] of head completed [facility], [place] 06/14/2024 12:59:28 06/11/[address] of head and neck completed [facility], [place] 06/14/2024 13:01:54 04/28/20 24 Colonoscopy completed [facility], [place] 04/28/2024 17:45:31 04/28/20 24 endoscopy completed [facility], [place] 04/28/2024 17:54:37 11/24/19 24 US scan of upper abdomen completed [facility], [place] 12/10/2023 18:57:38 10/23/19 24 plain X-ray of chest completed [facility], [place] 10/24/2023 13:29:24 10/17/19 24 US scan of abdomen and pelvis completed [facility], [place] 10/21/2023 11:10:36 10/13/[address] of abdomen completed [facility], [place] 10/15/2023 10:14:29 07/07/19 24 diagnostic radiography of abdomen completed [facility], [place] 07/10/2023 11:41:35 07/06/[address] of abdomen completed [facility], [place] 07/10/2023 11:40:54 01/31/20 23 Shave Biopsy, Multiple completed Km Crase, MD [address] [place], [address], [facility], [place] 01/31/2023 09:34:59 Cholecystectomy completed MARIO TOBAR [facility] [place] 06/12/2023 15:44:05 Angioplasty completed MARIO TOBAR [facility] [place] 06/12/2023 15:44:18 Imaging Results None recorded. Procedure Notes None recorded. Medical Equipment None Reported. Allergies Allergen ID Allergen Name Allergen Category Reaction Reaction Severity Criticality Documentation Date Start Date Code Code System Note Provider Name and Address Organization Details Recorded Time 28499 Keflex medicatio n hives mild low 12/07/2022 7 RxNorm Elizabeth Ng [facility] [place] 12:31:23 05381 cephalexi n medicatio n Not available Not available Not available 12/10/20232023 2231 RxNorm DORITAArleen BLACKMON, [facility] [address] [place], [address], [facility], [place] 15:35:49 Medications Name Sig Start Date Stop Date Status Note LastModified by Organization Details LastModified Time cyclobenz aprine 10 mg tablet three times daily as needed 08/15 completed Crespo DOC Stop baclofen Not Available Not Available Not Available amoxicill in 500 mg capsule TAKE ONE CAPSULE BY MOUTH THREE TIMES DAILY UNTIL GONE 08/25 completed Not Available Not Available Not Available Miralax 17 gram/dose oral powder Take 17 g every day by oral route. 07/14 completed Not Available Not Available Not Available atorvasta tin 40 mg tablet TAKE 1 TABLET BY MOUTH EVERY EVENING active Not Available Not Available No t Available methocarb gricelda 500 mg tablet TAKE 1 TABLET BY MOUTH EVERY 6 HOURS active Not Available Not Available No t Available metformin 500 mg tablet TAKE ONE TABLET BY MOUTH TWICE DAILY 08/15 completed Not Available Not Available Not Available venlafaxi ne ER 37.5 mg capsule,e xtended release 24 hr take 1 capsule BY MOUTH EVERY DAY FOR 30 DAYS need TO see doctor 09/16 completed Not Available Not Available Not Available venlafaxi ne ER 75 mg capsule,e xtended release 24 hr take 1 capsule BY MOUTH EVERY DAY 2023 active Not Available Not Available Not Avai lable hydrocodo ne 5 mg-acetam inophen 325 mg tablet TAKE 1 TABLET BY MOUTH EVERY 6 HOURS NEEDED FOR PAIN for 7 days 08/15 completed Not Available Not Available Not Available tretinoin 0.025 % topical cream APPLY TO THE AFFECTED AREA(S) BY TOPICAL ROUTE ONCE DAILY AT BEDTIME 2024 active Not Available Not Available Not Avai lable sucralfat e 1 gram tablet TAKE 1 TABLET BY MOUTH TWICE DAILY FOR FOUR weeks active Not Available Not Available No t Available prednison e 20 mg tablet 07/14 completed Not Available Not Available Not Available Tubersol 5 tub. unit/0.1 mL intraderm al injection solution Inject 0.1 units by intrader mal route. 08/15 completed Not Available Not Available Not Available Children' s Aspirin 81 mg chewable tablet chew and swallow ONE tablet BY MOUTH EVERY DAY at 7am active Not Available Not Available No t Available bacitraci n 500 unit/gram topical ointment apply topicall y EVERY DAY 11/16 completed Not Available Not Available Not Available acetamino phen 300 mg-codein e 30 mg tablet TAKE 1 TABLET BY MOUTH TWICE DAILY NEEDED FOR PAIN FOR SEVEN DAYS 08/15 completed Not Available Not Available Not Available clopidogr el 75 mg tablet TAKE ONE TABLET BY MOUTH DAILY at 7AM active Not Available Not Available No t Available ciproflox acin 250 mg tablet TAKE 1 TABLET BY MOUTH TWICE DAILY for 5 days 03/22 completed Not Available Not Available Not Available ketorolac 10 mg tablet TAKE 1 TABLET BY MOUTH THREE TIMES DAILY NEEDED FOR PAIN 07/14 completed Not Available Not Available Not Available potassium chloride ER 20 mEq tablet,ex tended release(p art/cryst ) TAKE 1 TABLET BY MOUTH DAILY active Not Available Not Available No t Available aspirin 325 mg tablet,de layed release TAKE 1 TABLET BY MOUTH EVERY DAY FOR 14 DAYS FOR BLOOD CLOT PREVENTI ON 08/15 completed Not Available Not Available Not Available OneTouch Ultra Test strips USE TO TEST BLOOD SUGAR DAILY 08/15 completed Not Available Not Available Not Available erythromy martín 5 mg/gram (0.5 %) eye ointment apply 1cm ribbon into lower conjunct ival sac(s) in THE affected eye(s) five times a DAY for 7 days 08/15 completed Not Available Not Available Not Available metformin 1,000 mg tablet TAKE ONE TABLET BY MOUTH TWICE A DAY 07/14 completed DOC Not Available Not Available Not Available prednison e 50 mg tablet TAKE 1 TABLET BY MOUTH ONCE DAILY 07/14 completed Not Available Not Available Not Available levothyro xine 150 mcg tablet TAKE 1 TABLET BY MOUTH EVERY DAY active Not Available Not Available No t Available nitroglyc joesph 0.4 mg sublingua l tablet DISSOLVE ONE TABLET ON UNDER THE TONGUE NEEDED FOR CHEST pain UNTIL response . DO NOT EXCEED THREE doses PER episode 08/15 completed Not Available Not Available Not Available levetirac etam 750 mg tablet TAKE ONE TABLET BY MOUTH TWICE DAILY active Not Available Not Available No t Available mupirocin 2 % topical ointment APPLY A SMALL AMOUNT TO THE AFFECTED AREA BY TOPICAL ROUTE 3 TIMES PER DAY 12/09 completed Not Available Not Available Not Available diclofena c sodium 50 mg tablet,de layed release TAKE ONE TABLET BY MOUTH EVERY TWELVE HOURS NEEDED 08/15 completed Not Available Not Available Not Available furosemid e 20 mg tablet TAKE 1 TABLET BY MOUTH EVERY DAY active Not Available Not Available No t Available celecoxib 100 mg capsule take 1 capsule BY MOUTH TWICE DAILY 08/15 completed Not Available Not Available Not Available lisinopri l 40 mg tablet TAKE ONE TABLET BY MOUTH DAILY active Not Available Not Available No t Available ondansetr on 4 mg disintegr ating tablet DISSOLVE 1 TABLET IN MOUTH ONCE DAILY NEEDED FOR NAUSEA AND VOMITING 12/21 completed Not Available Not Available Not Available glipizide 5 mg tablet TAKE ONE TABLET BY MOUTH ONCE DAILY 30 MINUTES BEFORE BREAKFAS T FOR TYPE 2 DIABETES MELLITUS 07/14 completed Not Available Not Available Not Available spironola ctone 50 mg tablet daily 04/01/ 2022 04/06 /2025 completed Not Available Not Available Not Available amoxicill in 875 mg-potass ium clavulana te 125 mg tablet TAKE 1 TABLET BY MOUTH TWICE DAILY 11/16 completed Not Available Not Available Not Available rosuvasta tin 10 mg tablet TAKE 1 TABLET BY MOUTH EVERY DAY active Not Available Not Available No t Available metoprolo l tartrate 25 mg tablet TAKE TWO TABLETS BY MOUTH DAILY active Not Available Not Available No t Available Gas Relief Extra Strength 125 mg chewable tablet take THREE tablets BY MOUTH as directed before colonosc opy 08/15 completed Not Available Not Available Not Available Constulos e 10 gram/15 mL oral solution take 15ml BY MOUTH TWICE DAILY active Not Available Not Available No t Available chlorhexi dine gluconate 0.12 % mouthwash RINSE WITH ONE FULL BY MOUTH FOR 30 SECONDS TWICE DAILY 08/15 completed Not Available Not Available Not Available vitamin E daily 05/20 completed Recorded 08/11/19 4:33PM by Mario Tobar CMT, Historic al Summary; Refill Quantity : 60; Capsule; Not Available Not Available Not Available Plavix daily 05/20 completed 0; Recorded 06/03/19 8:47AM by Lucia Jaeger RN, Office Visit; Not Available Not Available Not Available THSC Levothyro xine Sodium daily 04/30 completed VO LC/th; Recorded 07/24/19 4:27PM by Steph Hill LPN, Phone Encounte r; Refill Quantity : 90; Tablet; Not Available Not Available Not Available Crestor daily 01/28 completed 0; Recorded 06/03/19 8:47AM by Lucia Jaeger RN, Office Visit; Not Available Not Available Not Available Icy Hot 30 %-10 % topical cream apply to affected area four times daily as needed 2024 active Not Available Not Available Not Avai lable calcium 600 mg (as carbonate )-vitamin D3 10 mcg (400 unit) tablet TAKE 1 TABLET BY MOUTH EVERY DAY FOR BONE HEALTH AND HEALING active Not Available Not Available No t Available Lantus Solostar U-100 Insulin 100 unit/mL (3 mL) subcutane ous pen INJECT 25units SUBCUTAN EOUSLY DAILY 04/06 /2025 completed Not Available Not Available Not Available lactulose 20 gram/30 mL oral solution Take 15 mL every day by oral route for 30 days. 08/15 completed Not Available Not Available Not Available Metamucil 3.4 gram/5.4 gram oral powder Take 3.4 g twice a day by oral route for 30 days. 07/14 completed Not Available Not Available Not Available TechLITE Pen Needle 31 gauge x 5/16 USE DIRECTED 08/15 completed Not Available Not Available Not Available OneTouch Ultra2 Meter USE TO TEST BLOOD SUGAR DAILY active Not Available Not Available No t Available OneTouch Delica Plus Lancet 33 gauge USE DIRECTED THREE TIMES DAILY 08/15 completed Not Available Not Available Not Available OneTouch Delica Plus Lancet 30 gauge USE TO TEST BLOOD SUGAR THREE TIMES DAILY 08/15 completed Not Available Not Available Not Available Dexcom G7 Gun Number USE DIRECTED 08/15 completed Not Available Not Available Not Available Dexcom G7 Sensor device CHANGE for 10 days DIRECTED 08/15 completed Not Available Not Available Not Available Vitals Date Recorded Body height Body mass index (BMI) Body weight Oxygen saturation Oxygen saturation in Arterial blood by Pulse oximetry Heart rate Respiratory rate Systolic And Diastolic Provider Name and Address Organization Details Last Updated DateTime 175.26 cm 30.9 kg/m2 53898.8 1 g 97 % 97 % 68 /min 20 /min 158/92 mm[Hg] MARIO TOBAR [facility] 12:50:51 Social History Question Answer Notes LastModified by WISErg Details LastModified Time Tobacco Smoking Status Current Every Day Smoker MARIO TOBAR [facility] 06/12/2023 15:43:57 What Was The Date Of Your Most Recent Tobacco Screening? 12/22/2023 Information not available 12/22/2023 How Much Tobacco Do You Smoke? 2 PPD [email or web address] Information not available 06/12/2023 Sex: Unknown Functional Status Question Answer Note LastModified by WISErg Details LastModified Time How many times per week do you consume alcohol? 3-4 times per week [email or web address] Information not available 06/12/2023 Do you use any illicit or recreational drugs? No [email or web address] Information not available 06/12/2023 What is your level of alcohol consumption? Occasional Information not available 12/22/2023 Mental Status None recorded. Family History Nothing Reported. Medical History Condition Response Diabetes Y Anxiety Disorder Y Coronary Artery Disease Y Seizures/Epilepsy Y Hospitalizations Y Depression Y COPD Y Hypothyroidism Y Reflux/GERD Y Liver Disease Y Mental Illness Y Hypertension Y Immunizations Vaccine Type Date Status Note Provider Nam e and Address Organization Details Recorded Time Tdap 01/17/2014 completed PATTI lai [facility] 04/30/2023 11:30:04 Tdap 09/25/2023 completed Elizabeth lai [facility] 12/10/2023 12:32:48 Influenza, MDCK, trivalent, PF 03/10/2024 completed Not Available [employer] 2024 12:15:18 Past Encounters Encounter ID Performer Location Encounter Start Date Encounter Closed Date Diagnosis/Indication Diagnosis SNOMED-CT Code Diagnosis ICD10 Code Diagnosis IMO Codes Diagnosis Note [id number] DORITA BLACKMON [employer] [facility] ([facility]) [address] [place] [address] 03/22/2025 12:10:53 03/22/2025 14:00:56 Chronic abdominal pain 539963907 R10.9 Type 2 meena betes mellitus 99726582 E11.[address] Barcenas. Closed comedone 02773325 3 L70.0 43403 Health Concerns Section Related Observation LastModified by Organization Detai ls LastModified Time None Recorded Concern Status LastModified by Organization Details LastModified Time None Recorded Payers Encounter Date Sequence Insurance Name Policy Number Policy Riojas Covered Member ID Riojas Member ID Guarantor Name 03/22/2025 1 [place] Alonso Golden [id number] Kourtney Leyva Notes Date Note Type Note Provider Name and Address Organization Details Recorded Time 03/22/2025 text/html Abdominal PainRe ported by PatientAbdominal PainFor quality, patient reportsdull. For location, patient [id number]. For severity, patient reportsmoderate. For duration, patient reportsconstant. For onset/timing, patient reportschronic. For previous tests, treatment and/or diagnostic procedures, patient reportsct of the abdomen __. Joseph Crespo, [address], [address] 03/23/2025 15:34:43
--- OUTSIDE RECORDS SUMMARY | 2025-03-27 14:59 | XMS_ITS | Clinical Summary ---
Author Organization [facility] Address [address] [place]: [place] [address] Care Team Providers Care Engine Boss Name Role Phone Unavailable Primary Care Provider Unavailabl e Allergies Active Allergy Reactions Criticality Noted Date Comments Cephalexin Hives High 10/16/2023 Medications levETIRAcetam (KEPPRA) 750 mg Tablet Take 1 Tablet by mouth 2 times daily. Active levothyroxine 150 mcg tablet Take 150 mcg by mouth daily. Active aspirin (MACHO CHEWABLE) 81 mg Tablet, Chewable Take 81 mg by mouth daily. Active metoprolol tartrate 50 mg tablet (LOPRESSOR) Take by mouth daily. Active lisinopriL (PRINIVIL) 40 mg tablet Take 1 Tablet by mouth daily. Active clopidogreL (PLAVIX) 75 mg Tablet TAKE ONE TABLET BY MOUTH DAILY at 7AM Active insulin glargine (Lantus Solostar U-100 Insulin) 100 unit/mL pen syringe Inject 38 Units by subcutaneous injection daily with breakfast. Active celecoxib (CeleBREX) 100 mg capsule Take 100 mg by mouth daily. Active Calcium Carbonate 800 mg calcium /2 gram Powder Take by mouth daily. Active Active Problems Problem Noted Date Diagnosed Date Portal hypertensive gastropathy 04/28/2024 Esophageal varices determined by endoscopy 04/28 Overview (04/28/2024): Grade 1 Gastritis determined by endoscopy 04/28/2024 Colon polyp 04/28/2024 Encounters Date Type Department Care Team Description 03/25/2025 Orders Only [facility] Gastroenterology- [place] [address] [place] [id number] Dorita Flaherty, PHARMACY GRAD INTERN Abdominal pain, unspecified abdominal location (Primary Dx) 03/02/2025 External Device Data STL ABSTRACTION Provider, Abstract 02/22/2025 External Device Data STL ABSTRACTION Provider, Abstract 01/11/2025 External Device Data STL ABSTRACTION Provider, Abstract 01/11/2025 External Device Data STL ABSTRACTION Provider, Abstract 12/28/2024 External Device Data STL ABSTRACTION Provider, Abstract from Last 3 Months Social History Tobacco Use Types Packs/Day Years Used Date Smoking Tobacco: Every Day Cigarettes Smokeless Tobacco: Former Tobacco Cessation:Ready to Q uit: No; Counseling Given: No Alcohol Use Standard Drinks/Week Comments Yes 0 (1 standard drink = 0.6 oz pur e alcohol) Feeling Safe Answer Date Recorded Are you in a relationship wi th someone who hurts you emotionally and/or physically? 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 MANAGEMENT OFFICER Gender Identity Not on file Sexual Orientation Not on file Last Filed Vital Signs Vital Sign Reading Time Taken Comments Blood Pressure 109/78 04/28/2024 2:52 PM INFORMATION MANAGEMENT OFFICER Pulse 72 04/28/2024 2:52 PM INFORMATION MANAGEMENT OFFICER Temperature 36.8 C (98.2 F) 10/16/2023 8:07 PM CDT Respiratory Rate 16 04/28/2024 2:52 PM INFORMATION MANAGEMENT OFFICER Oxygen Saturation 98% 04/28/2024 2:52 PM INFORMATION MANAGEMENT OFFICER Inhaled Oxygen Concentration - - Weight 99.2 kg (218 lb 12.8 oz) 024 11:24 AM CDT Height 177.8 cm (5' 10 ) 11/10/2023 11: 24 AM CDT Body Mass Index 31.39 11/10/2023 11:24 AM CDT Plan of Treatment Health Maintenance Due Date Last Done Comments DIABETES ANNUAL FOOT EXAM 1985 DIABETES ANNUAL RETINAL EXAM 1985 DIABETES MICROALBUMIN ANNUAL SCREEN 1985 LDL CHOLESTEROL ANNUAL 1985 HEPATITIS B VACCINES (1 of 3 - 19+ 3-dose series) 1986 FIT-DNA Q 3 years 01/22/2012 FIT/FOBT Q 1 year 01/22/2012 Flex Sig/CT Colonography Q 5 years 01/22/2012 ZOSTER VACCINE (1 of 2) 2017 DIABETES HBA1C Q 6 MONTHS 12/20/2018 06/22/2018 INFLUENZA VACCINE (#1) 2024 COLORECTAL SCREENING 04/28/2029 04/28/2024, 04/28/20 24 Colorectal Cancer Screening 04/28/2029 DTAP/TDAP/TD VACCINES (3 - Td or Tdap) 09/24/2033, 01/17/2014 Procedures Procedure Name Priority Date/Time Associated Diagnosis Comments COLONOSCOPY REPORT 04/28/2024 2: 36 PM INFORMATION MANAGEMENT OFFICER from Last 3 Months or Most Recently Relevant to Health Maintenance Results * COLONOSCOPY REPORT (04/28/2024 2:36 PM INFORMATION MANAGEMENT OFFICER) Narrative Procedure Note Cash Jarvis DO - 04/28/2024 2:36 PM CST [facility] GI Patient Name: Alonso Golden Procedure Date: 04/28/2024 Date of : 1965 Admit Type: Outpatient Age: 59 Attending MD: Cash Jarvis DO, Procedure: Colonoscopy with cold snare Indications: Screening for colorectal malignant neoplasm Providers: Cash Jarvis DO Referring MD: Dorita Flaherty Medicines: Propofol per Anesthesia Complications: No immediate complications. Procedure: Pre-Anesthesia Assessment: - Prior to the procedure, a History and Physical was performed, and patient medications and allergies were reviewed. The patient's tolerance of previous anesthesia was also reviewed. The risks and benefits of the procedure and the sedation options and risks were discussed with the patient. All questions were answered, and informed consent was obtained. Prior Anticoagulants: The patient has taken no anticoagulant or antiplatelet agents. ASA Grade Assessment: III - A patient with severe systemic disease. After reviewing the risks and benefits, the patient was deemed in satisfactory condition to undergo the procedure. After I obtained informed consent, the scope was passed under direct vision. Throughout the procedure, the patient's blood pressure, pulse, and oxygen saturations were monitored continuously. The Colonoscope was introduced through the anus and advanced to the cecum, identified by appendiceal orifice and ileocecal valve. The colonoscopy was performed without difficulty. The patient tolerated the procedure well. The quality of the bowel preparation was excellent. Estimated Blood Loss: Estimated blood loss: none. Findings: 5mm rectal polyp x 2 removed via cold snare 1 cm cecal valve polyp removed via cold snare Recommendation: - Continue present medications. - High fiber diet. - Await pathology results. Cash Jarvis DO 04/28/2024 2:36:20 PM This report has been signed electronically. Number of Addenda: 0 Note Initiated On: 04/28/2024 2:05 PM Scope Withdrawal Time 0 hours 6 minutes 24 seconds Scope In: 2:11:24 PM Scope Out: 2:25:10 PM Patient Profile: This is a 59 year old male. [facility] [place], [place] Cash Jarvis DO GI PROCEDURE ORDERABLES Final Result from Last 3 Months or Most Recently Relevant to Health Maintenance Insurance [place] Advance Directives For more information, please contact: [phone] Documents on File Type Date Recorded Patient Clinical Research Analyst Expl anation Advance Directive POA 10/16/2023 10:12 PM [facility] PAPERS
--- OUTSIDE RECORDS SUMMARY | 2025-03-27 14:59 | XMS_ITS | Encounter Summary ---
Author Organization [facility] Address [address] [place] [address] Care Team Providers Care Contact Center Consultant Name Role Phone Unavailable Primary Care Provider Unavailabl e Reason for Referral * Eval and Treat (Routine) - Open Specialty Diagnoses / Procedures Referred By Controbbie t Referred To Contact Gastroenterology Diagnoses Abdominal pain, unspecified abdominal location Procedures FL OFFICE/OUTPATIENT ESTABLISHED MOD MDM 30 MIN FL OFFICE/OUTPATIENT NEW MODERATE MDM 45 MINUTES oDrita Chen FNP [address] [place] [address] Phone: tel: fax: Chris Angel, DO [address] [place] [phone] Phone: tel: fax: Referral ID Status Reason Start Date Expiration Date Visits Requested Visits Authorized [id number] Open Performing Department to Schedule 03/25/2025 03/25/2026 1 1 WEAVER Encounter Details Date Type Department Care Team (Late st Contact Info) Description 03/25/[address] [facility] Gastroenterology- [place] [address] [facility] [address] [place] [phone] Dorita Flaherty FNP [address] [place] [address] Abdominal pain, unspecified abdominal location (Primary Dx) Social History Tobacco Use Types Packs/Day Years Used Date Smoking Tobacco: Every Day Cigarettes Smokeless Tobacco: Former Alcohol Use Standard Drinks/Week Comments Yes 0 (1 standard drink = 0.6 oz pur e alcohol) Feeling Safe Answer Date Recorded Are you in a relationship wi th someone who hurts you emotionally and/or physically? 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
--- OUTSIDE RECORDS SUMMARY | 2025-03-27 14:59 | XMS_ITS | Data Portability ---
Author Organization [facility] Address [address] [facility] [address] [place] [address] Care Team Providers Care Top Closer Name Role Phone DORITA BLACKMON Primary Care Provider [phone] Assessment Encounter Date Assessment Date Assessment LastModified [...] called him. Dr. 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 Not available 03/22/2025 13:30:39 Plan of Treatment Reminders Order Date Submit Date Provider Last Modified By Organization Details Last Modified Time Details Appointments OFFICE VISIT 20 2025 11:20A M BUD KLEIN Not available Not available Not available Lab None recorded. Referral gastroent erologist referral [email or web address] [facility] , [address] [facility] [address], [place], [address], 03/25/2025 10:54:54 Procedures None recorded. Surgeries None recorded. Imaging None recorded. Medication Orders tretinoin 0.025 % topical cream 2024 025 RICHELLE [facility], [address] [place], [address], 03/23/2025 15:13:24 Patient TargetsNo targets recorded. Patient Instructions Encounter Date Encounter Id Patient Instructions Last Modified By Organization Details Last Modified Time 06/07/2024 [id number] ER records reviewed; evaluated for chest pain, but doing better now Blood pressure too low, will decrease lisinopril to 20mg. Encouraged to stop smoking, would like to consider options. [email or web address] Not available 06/28/2024 16:28:11 09/06/2024 [id number] reports frequent headaches, will d/c imdur. Growth behind left ear, follows with derm, will defer. [email or web address] Not available 09/06/2024 15:01:25 12/20/2024 [id number] labs and blood pressure's good. No new orders. [email or web address] Not available 12/22/2024 14:57:41 02/14/2025 [id number] ER notes reviewed; evaluated for abdominal pain with work up negative; better today a1c 7.6 in January. Follows with Dr. Barcenas for DM. [email or web address] Not available 02/15/2025 16:14:38 03/22/2025 [id number] Call or return for questions or concerns. Not available 03/22/2025 13:26:25 Reason for Referral Cardiac Nurse Practitioner Referral for Chronic abdominal pain Referring Physician: Dorita Blackmon, Family Medicine, Encounter Date: 03/22/2025 Results Created Date Observation Date Name Description Value Unit Range Abnormal Flag Note LastModifiedBy Organization Detail LastModifiedTime 05/18/1905/18/2024 TSH, serum or plasm a TSH uIU/m L 0.49-3 .82 Not Available [facility] ([facility]) [address] [place], [address], 05/02/2023 10:01:06 Result Notes None recorded. Problems Name Problem SNOMED Code Status Onset Date Resolution Date Notes Provider Name and Address Organization Details Recorded Time Benign essentia l hyperten kimberly 8599255 Active BUD KLEIN [address] [place] [address], [address] , [facility] 5 15:35:29 Testoste jose carlos level below referenc e range 600508671 Active MARIO TOBAR [facility] 4 13:32:03 Chronic back pain 623469660 Active MARIO TOBAR [facility] 4 13:33:27 Splenome valentina 07673934 Active MARIO TOBAR [facility] 4 13:36:56 Spinal stenosis of lumbar region 54572662 Active MARIOHOLLEY TOBAR [facility] 4 13:36:52 Steatoti c liver disease 323248474 Active DORITA BLACKMON, [address], [address] , [facility] 5 15:35:29 Myocardi al infarcti on 85726861 Active MARIO TOBAR [facility] 4 13:35:39 Degenera tion of lumbar interver tebral disc 55950536 Active MARIO TOBAR [facility] 4 13:33:44 Portal hyperten kimberly 31141884 Active MARIO TOBAR [facility] 4 13:36:07 History of drug abuse 108743699 Active MARIO TOBAR [facility] 4 13:34:51 History of placemen t of stent for coronary artery disease 608198789 Active MARIO TOBAR [facility] 4 13:34:56 Amnestic mild cognitiv e disorder 504771403 Active MARIO TOBAR [facility] 4 13:32:36 Epilepsy 29961118 [facility] 4 13:34:19 Acute kidney injury 10877802 Completed 06/14/2024 [facility] 5 13:02:39 Generali zed epilepsy 83235120 Active MARIO TOBAR [facility] 5 13:04:59 Lumbar disc prolapse with radiculo abisai 031095412 Active MARIO TOBAR [facility] 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 5 13:05:24 Arthropa thy of lumbar facet joint 642226658 Active MARIO TOBAR [facility] 5 13:02:55 Coronary atherosc lerosis 651550492 Active AMRIO TOBAR [facility] 5 13:03:47 Hyperten sive disorder 38591801 Active 2021 ESSENTIA L HYPERTEN KIMBERLY Elizabeth Ng [facility] 4 12:32:01 Hypothyr oidism 63517344 Active 2022 MARIO TOBAR [facility] 4 13:31:33 Type 2 diabetes mellitus 38857236 Active 2022 MARIO AMADOU [facility] 4 13:31:57 Cirrhosi s of liver 45530544 Active 2022 DORITA BLACKMON, [address], [address] , [facility] 5 15:35:29 Coronary arterios clerosis 76525024 Active 2022 [facility] 4 13:33:36 Noncompl iance with treatmen t 4331303 Active 2023 MARIO TOBRA [facility] 4 13:35:47 Chronic chest pain 11505432243 4101 Active 2023 MARIO TOBAR [facility] 4 13:29:50 Chronic abdomina l pain 662657911 Active 2023 MARIO AMADOU [facility] 4 13:30:13 Noncompl iance with medicati on regimen 855733433 Active 2023 MARIOHOLLEY TOBAR [facility] 4 13:37:22 Headache 13195023 Active 2024 [facility] 5 15:00:48 Problem Notes None recorded. Procedures Surgical History Date Name Laterality Status Provider Name and Address Organization Details Recorded Time 06/26/19 25 plain X-ray of chest completed [facility] 06/29/2024 12:00:13 06/11/19 25 plain X-ray of chest completed [facility] 06/14/2024 12:57:44 06/11/[address] of head completed [facility] 06/14/2024 12:59:28 06/11/[address] of head and neck completed [facility] 06/14/2024 13:01:54 04/28/20 24 Colonoscopy completed [facility] 04/28/2024 17:45:31 04/28/20 24 endoscopy completed [facility] 04/28/2024 17:54:37 11/24/19 24 US scan of upper abdomen completed [facility] 12/10/2023 18:57:38 10/23/19 24 plain X-ray of chest completed [facility] 10/24/2023 13:29:24 10/17/19 24 US scan of abdomen and pelvis completed [facility] 10/21/2023 11:10:36 10/13/[address] of abdomen completed [facility] 10/15/2023 10:14:29 07/07/19 24 diagnostic radiography of abdomen completed [facility] 07/10/2023 11:41:35 07/06/19 24 [address] of abdomen completed [facility] 07/10/2023 11:40:54 01/31/20 23 Shave Biopsy, Multiple completed Km Benz MD [address] [place] [address], [address], [facility] 01/31/2023 09:34:59 Cholecystectomy completed [facility] 06/12/2023 15:44:05 Angioplasty completed [facility] 06/12/2023 15:44:18 Imaging Results None recorded. Procedure Notes None recorded. Medical Equipment None Reported. Allergies Allergen ID Allergen Name Allergen Category Reaction Reaction Severity Criticality Documentation Date Start Date Code Code System Note Provider Name and Address Organization Details Recorded Time 62738 Keflex medicatio n hives mild low 12/07/2022 7 RxNorm Elizabeth lai [facility] 4 12:31:23 95220 cephalexi n medicatio n Not available Not available Not available 12/10/20232023 2231 RxNorm DORITA BLACKMON, [facility] [address] [place], [address], [facility] 5 15:35:49 Medications Name Sig Start Date Stop [...] Available spironola ctone 50 mg tablet daily 08/15 completed Not Available Not Available Not [...] completed VO LC/th; Recorded 07/24/19 4:27PM by Amadou Hill LPN, Phone Encounte r; Refill Quantity [...] ous pen INJECT 25units SUBCUTAN EOUSLY DAILY 08/15 completed Not Available Not Available [...] Available Not Available Not Available Dexcom G7 Radiation Officer USE DIRECTED 08/15 completed Not Available Not Available Not Available Dexcom G7 Sensor device CHANGE for 10 days DIRECTED 08/15 completed Not Available Not Available Not Available Vitals Date Recorded Body height Provider Name an d Address Organization Details Last Updated DateTime 06/07/2024 175.26 cm YOVANI [facility] 06/07/2024 15:20:30 Date Recorded Body height Provider Name an d Address Organization Details Last Updated DateTime 09/06/2024 175.26 cm YOVANI [facility] 09/06/2024 14:59:16 Date Recorded Body height Provider Name an d Address Organization Details Last Updated DateTime 12/20/2024 175.26 cm YOVANI [facility] 12/22/2024 14:56:19 Date Recorded Body height Provider Name an d Address Organization Details Last Updated DateTime 02/14/2025 175.26 cm YOVANI [facility] 02/14/2025 16:01:39 Date Recorded Body height Body mass index (BMI) Body weight Oxygen saturation Oxygen saturation in Arterial blood by Pulse oximetry Heart rate Respiratory rate Systolic And Diastolic Provider Name and Address Organization Details Last Updated DateTime 175.26 cm 30.9 kg/m2 99816.8 1 g 97 % 97 % 68 /min 20 /min 158/92 mm[Hg] MARIO AMADOU [facility] 12:50:51 Social History Question Answer Notes LastModified by Organizat ion Details LastModified Time Tobacco Smoking Status Current Every Day Smoker MARIO AMADOU [facility] 06/12/2023 15:43:57 What Was The Date Of Your Most Recent Tobacco Screening? 12/22/2023 Information not available 12/22/2023 How Much Tobacco Do You Smoke? 2 PPD [email or web address] Information not available 06/12/2023 Sex: Unknown Functional Status Question Answer Note LastModified by Organizat ion Details LastModified Time How many times per week do you consume alcohol? 3-4 times per week [email or web address] Information not available 06/12/2023 Do you use any illicit or recreational drugs? No [email or web address] Information not available 06/12/2023 What is your level of alcohol consumption? Occasional Information not available 12/22/2023 Mental Status None recorded. Family History Nothing Reported. Medical History Condition Response Diabetes Y Anxiety Disorder Y Coronary Artery Disease Y Seizures/Epilepsy Y Hospitalizations Y Hypothyroidism Y Depression Y COPD Y Reflux/GERD Y Liver Disease Y Mental Illness Y Hypertension Y Immunizations Vaccine Type Date Status Note Provider Nam e and Address Organization Details Recorded Time Tdap 01/17/2014 completed PATTI lai [facility] 04/30/2023 11:30:04 Tdap 09/25/2023 completed Elizabeth lai [facility] 12/10/2023 12:32:48 Influenza, MDCK, trivalent, PF 03/10/2024 completed Not Available [employer] 2024 12:15:18 Past Encounters Encounter ID Performer Location Encounter Start Date Encounter Closed Date Diagnosis/Indication Diagnosis SNOMED-CT Code Diagnosis ICD10 Code Diagnosis IMO Codes Diagnosis Note BUD GILL [facility] ([facility]) [address] [place] [address] 10/23/2022 18:21:23 10/23/2022 20:56:12 Abdominal pain 76356780 R10.31 Cirrhosis of liver 007 K74.60 Ascites 433200833 R18.8 [id number] Km Benz MD [facility] ([facility]) [address] [place] [address] 01/30/2023 15:32:38 01/30/2023 17:29:34 Irritated melanocytic nevus of skin 3656048938 D22.9 It appears that this was bumped and the trauma led to its bleeding. Patient was agreeable to have it removed so it does not continue to bother him. Patient tolerated the procedure well and is skin care instructio ns were given. [id number] Km Benz MD [facility] ([facility]) [address] [place] [address] 02/04/2023 17:07:50 02/11/2023 09:21:10 Pimple of skin 819080980 R23.8 Discussed using warm compresses to bring it to head. Likely irritated from all the manipulati on. Patient reassured. [id number] DORITA BLACKMON [facility] ([facility]) [address] [place] [address] 05/02/2023 09:21:43 05/02/2023 10:08:45 Cirrhosis of liver 65200343 K74.60 Coronary arteriosclerosis 16758628 I25.[address] Noriega, no blockage. Type 2 meena betes mellitus 57775929 E11.65 Please send labs to Dr. Noriega's office. Hypothyroidism 09663530 E03.9 Please send labs to Dr. Barcenas. Infection of skin and/or subcutaneous tissue 08216022 L08.9 [id number] DORITA BLACKMON [facility] ([facility]) [address] [place] [address] 06/12/2023 13:49:47 06/24/2023 09:36:00 Constipation 15701524 K59.00 Pain of ri ght knee joint 2997242378 92365 M25.561 He was seen by ortho and given a shot that has helped some. [id number] DORITA BLACKMON [employer] SPECIALIST [facility] ([facility]) [address] [place] [address] 07/15/2023 15:07:04 07/15/2023 16:05:36 Diabetes mellitus 06253097 E11.[address] Barcenas, endocrinol ogy. His recent blood sugar in the ER was over 1000. She has adjusted his medication now. Constipation 18055077 K5 9.00 Cirrhosis of liver 007 K74.60 Guardian has been given the number to call to make him an appt. Abdominal pain 99229178 R10.9 Hospital follow-up. Continues with mild pain. [id number] DORITA BLACKMON [facility] ([facility]) [address] [place] [address] 08/26/2023 09:32:46 08/26/2023 10:33:20 Comedonal acne 950410720 L70.0 Multiple lesions punctured with 18Ga needle and expressed. Advised him to get an exfoliatin g wash. [id number] DORITA BLACKMON [facility] ([facility]) [address] [place] [address] 09/17/2023 11:34:12 09/17/2023 12:57:11 Depressive disorder 73844997 F32.9 Type 2 meena betes mellitus 60364498 E11.65 Dexcom G7 given. [id number] Km Benz MD [facility] ([facility]) [address] [place] [address] 09/25/2023 13:16:23 09/26/2023 07:52:44 [id number] CONCEPCION CORLEY [facility] ([facility]) [address] [place] [address] 11/17/2023 11:38:55 11/17/2023 18:44:47 Right upper quadrant pain 309736692 R10.11 With change in pain to the RUQ and hx of cirrhosis, will order US of abd. Will call patient with appt date/time. No changes in medication s. VSS. No signs of surgical abd today. [id number] CONCEPC[facility] CORLEY [facility] ([facility]) [address] [place] [address] 11/24/2023 11:08:57 11/25/2023 08:06:19 [id number] Yash Villatoro DO [facility]) [address] [place] [phone] 12/22/2023 17:11:04 01/17/2024 06:56:13 Acute conjunctivitis of right eye 8898606437 57915 H10.31 counseled on dx. warm compresses and keep eyelids clean. counseled on limiting spread of illness. will start topical abx. Return to office with no improvemen t or any problems. Go to ER with severe worsening or severe problems. [id number] [facility] ([facility]) [address] [place] [address] 02/24/2024 15:29:18 02/24/2024 16:08:33 Tuberculosis screening 924429852 Z11.1 [id number] DORITA BLACKMON [facility] ([facility]) [address] [place], [place] [address] 05/18/2024 14:33:18 05/18/2024 15:48:11 Cirrhosis of liver 32757342 K74.60 GI work up has been done. Type 2 meena betes mellitus without complication 423250413 E11.9 Hypothyroidism 39279077 E03.9 Please send labs to Dr. Barcenas. Chronic back pain 356843 002 G89.29 Back pain and chronic abdominal pain. Has followed with pain management in the past. Thickened nails 10712976 5 Q84.5 [id number] Joseph Crespo DO [facility] ([facility]) [address] [place], [place] [address] 06/07/2024 08:24:55 06/28/2024 16:55:47 Benign essential hypertension 4126731 I10 Seizure disorder 8833013 02 G40.909 Amnestic m ild cognitive disorder 322624890 G31.84 Chronic back pain 302033 002 G89.29 Cirrhosis of liver 40501 007 K74.60 Chest pain 90564155 R07. 9 [id number] Joseph Crespo DO [facility]) [address] [place] [address] 09/06/2024 08:16:06 09/09/2024 07:08:27 Benign essential hypertension 4383925 I10 Chronic back pain 119336 002 G89.29 Headache 71487347 R51.9 71521587 Lesion of external ear 394334923 H61.92 [id number] Joseph Crespo DO [facility] ([facility]) [address] [place] [address] 12/22/2024 11:20:46 12/27/2024 15:28:14 Benign essential hypertension 0846835 I10 Generalized epilepsy 195 31855 G40.309 History of placement of stent for coronary artery disease 702379146 Z95.5 Hypertensive disorder 38 860178 I10 [id number] Joseph Crespo DO [facility] ([facility]) [address] [place] [address] 02/14/2025 15:00:01 02/16/2025 07:31:12 Benign essential hypertension 3232100 I10 Generalized epilepsy 195 45998 G40.309 Cirrhosis of liver 65423 007 K74.60 Type 2 meena betes mellitus 81314917 E11.65 [id number] BUD KLEIN [facility] ([facility]) [address] [place] [address] 03/22/2025 12:10:53 03/22/2025 14:00:56 Chronic abdominal pain 876016399 R10.9 Type 2 meena betes mellitus 13591292 E11.[address] Barcenas. Kayden rivera 64535679 3 L70.0 62980 Health Concerns Section Related Observation LastModified by Organization Detai ls LastModified Time None Recorded Concern Status LastModified by Organization Details LastModified Time None Recorded Advance Directives Directive None Recorded Payers Insurance Date Sequence Insurance Name Policy Number Policy Riojas Covered Member ID Riojas Member ID Guarantor Name 03/22/2025 1 [place] Alonso Golden [id number] Kourtney Leyva 03/22/2025 [place] [facility] [place]IT[place] Alonso Golden [id number] Kourtney Leyva Notes Date Note Type Note Provider Name and Address Organization Details Recorded Time 06/07/2024 text/html Anxiety/Depressi onRepo rted by PatientHPIFor severity, patient reportsincreased anxietybut reportsdenies suicidal ideationsandable to maintain relationships.ROS as noted in the HPI Joseph Crespo DO [address] [place] [address], [phone], [place] [facility] 06/28/2024 16:28:35 09/06/2024 text/html Anxiety/Depressi onRepo rted by PatientHPIFor severity, patient reportsincreased anxietybut reportsdenies suicidal ideationsandable to maintain relationships.ROS as noted in the HPI Joseph Crespo DO [address] [place] [address], [phone], [facility] 09/07/2024 14:57:58 12/20/2024 text/html Anxiety/Depressi onRepo rted by PatientHPIFor severity, patient reportsincreased anxietybut reportsdenies suicidal ideationsandable to maintain relationships.ROS as noted in the HPI no complaitns per staff or pt. Joseph Crespo DO [address] [place] [address], [phone], [facility] 12/26/2024 14:47:18 02/14/2025 text/html Anxiety/Depressi onRepo rted by PatientHPIFor severity, patient reportsincreased anxietybut reportsdenies suicidal ideationsandable to maintain relationships.ROS as noted in the HPI no complaints per staff or pt. Joseph Crespo DO [address] [place] [address], [phone], [facility] 02/15/2025 16:15:02 03/22/2025 text/html Abdominal PainRe ported by PatientAbdominal PainFor quality, patient reportsdull. For location, patient reportsruqandrlq. For severity, patient reportsmoderate. For duration, patient reportsconstant. For onset/timing, patient reportschronic. For previous tests, treatment and/or diagnostic procedures, patient reportsct of the abdomen __. Joseph Crespo DO [address] [place] [address], [phone], [facility] 03/23/2025 15:34:43
[2025-03-27 15:09] VITALS: RESP 17; O2SAT 97
[2025-03-27 15:09] LABS: Hematocrit 42.4 % (37-53); Hemoglobin 14.30 g/dL (11.27-16.99); Mean Corpuscular HGB Conc 33.7 g/dL (30-55); Mean Corpuscular Hemoglobin 30.0 pg (27-33); Mean Corpuscular Volume 88.9 fl (82-101); Nucleated Red Blood Cells % 0 %; Platelet Count 93 10^3/cmm (157-399); Red Blood Count 4.77 10^6/uL (3.85-5.65); White Blood Count 7.09 10^3/uL (3.29-11.43)
[2025-03-27] MEDS: morphine 4 mg/mL SDV 1 mL IVP (15:09)
[2025-03-27] MEDS: ondansetron 2 mg/ML SDV 2 mL 4 MG IVP (15:09)
[2025-03-27 15:29] LABS: Alanine Aminotransferase 23 U/L (0-41); Albumin Level 4.4 g/dL (3.5-5.2); Alkaline Phosphatase 95 U/L (40-130); Anion Gap 10.0 (5-19); Aspartate Amino Transferase 30 U/L (0-40); Blood Urea Nitrogen 14 mg/dL (6-20); Calcium 9.4 mg/dL (8.5-10.5); Carbon Dioxide 30 mmol/L (22-29); Chloride 104 mmol/L (98-107); Globulin 3.0 g/dL (1.3-4.6); Glucose 170 mg/dL (65-115); Osmolality Calculated 294 mOsm/kg (285-295); Potassium 4.0 mmol/L (3.5-5.1); Sodium 140 mmol/L (136-145); Total Protein 7.4 g/dL (6.6-8.7)
[2025-03-27 15:34] LABS: Glucose Urine UA Negative (Normal); Nitrate Urine Negative (Negative); Specific Gravity, Urine 1.008 (1.005-1.030)
[2025-03-27 15:37] LABS: Lipase 46 U/L (13-60)
[2025-03-27 15:37] LABS: Add Urine Microscopic? YES
[2025-03-27 15:55] VITALS: BP 108/75; PULSE 61; O2SAT 98
== END 2025-03-27 15:56 | disposition home or self-care (01) ==
PROVIDERS: Emergency Provider Emergency Medicine; PCP Nurse Practitioner Family
DX: R10.31 Right lower quadrant pain (principal); Z79.82 Long term (current) use of aspirin; Z79.4 Long term (current) use of insulin; Z72.0 Tobacco use; I25.118 Atherosclerotic heart disease of native coronary artery with other forms of angina pectoris; E78.5 Hyperlipidemia, unspecified; E11.9 Type 2 diabetes mellitus without complications; I10 Essential (primary) hypertension
CPT/HCPCS: 36415; 80053; 81001; 83690; 85025; 96374; 96375; 99284; J2270; J2405

== ENCOUNTER 2025-05-09 23:50 | Emergency (ER) | payer MEDICAID, SELFPAY ==
--- OUTSIDE RECORDS SUMMARY | 2025-05-09 23:57 | XMS_ITS | Data Portability ---
Author Organization [facility] Sergo Fregoso [facility] Address [address] [facility] [address] [place] [address] Care Team Providers Care Toll Patrolman Name Role Phone DORITA BLACKMON Primary Care Provider [phone] Assessment Encounter Date Assessment Date Assessment LastModified [...] called him. Dr. Crespo sees him at [facility] but he hasn't spoken with him about it because he doesn't want Pepper the business intelligence manager to know because she will tell Kourtney. Not available 03/22/2025 13:30:39 Plan of Treatment Reminders Order Date Submit Date Provider Last Modified By Organization Details Last Modified Time Details Appointments OFFICE VISIT 15 2025 10:00A M BUD KLEIN Not available Not available Not available Lab None recorded. Referral gastroent erologist referral [email or web address] [place] [address] [facility] , [address] [facility] [address], [place], [address], 04/05/2025 14:05:11 Procedures None recorded. Surgeries None recorded. Imaging None recorded. Medication Orders Refresh Tears 0.5 % eye drops 2024 025 [facility] [address] [place], [id number], 04/19/2025 11:20:42 tretinoin 0.025 % topical cream 2024 025 RICHELLE [facility] [address], [address], 03/23/2025 15:13:24 Patient TargetsNo targets recorded. Patient Instructions Encounter Date Encounter Id Patient Instructions Last Modified By Organization Details Last Modified Time 09/06/2024 [id number] reports frequent headaches, will d/c imdur. Growth behind left ear, follows with derm, will defer. [email or web address] Not available 09/06/2024 15:01:25 12/20/2024 [id number] labs and blood pressure's good. No new orders. Not available 12/22/2024 14:57:41 02/14/2025 [id number] ER notes reviewed; evaluated for abdominal pain with work up negative; better today a1c 7.6 in January[address] Follow[address] with Dr. Barcenas for DM. [email or web address] Not available 02/15/2025 16:14:38 03/22/2025 [id number] Call or return for questions or concerns. Not available 03/22/2025 13:26:25 04/19/2025 [id number] Discussed how to take the eye drops. Follow up for worsening [email or web address] Not available 04/19/2025 12:25:10 Reason for Referral Privacy Specialist Referral for Chronic abdominal pain Referring Physician: Dorita Blackmon, Family Medicine, Encounter Date: 03/22/2025 Problems Name Problem SNOMED Code Status Onset Date Resolution Date Notes Provider Name and Address Organization Details Recorded Time Benign essentia l hyperten kimberly 3303066 Active DORITA BLACKMON, [address], [address] , [facility], [facility] 5 15:35:29 Testoste jose carlos level below referenc e range 923913853 Active MARIO lai [facility], BhargavLBrandy 4 13:32:03 Chronic back pain 652785328 [facility] 4 13:33:27 Splenome valentina 72196824 Active MARIO TOBAR [facility] 4 13:36:56 Spinal stenosis of lumbar region 11944211 Active MARIOHOLLEY TOBAR [facility] 4 13:36:52 Steatoti c liver disease 922016869 Active DORITA BLACKMON, [facility] [address] [place], [address] , [facility] 5 15:35:29 Myocardi al infarcti on 93922331 Active MARIO TOBAR [facility] 4 13:35:39 Degenera tion of lumbar interver tebral disc 74437013 Active MARIO TOBAR [facility] 4 13:33:44 Portal hyperten kimberly 41007956 Active MARIO AMADOU [facility] 4 13:36:07 History of drug abuse 609239992 Active MARIO TOBAR [facility] 4 13:34:51 History of placemen t of stent for coronary artery disease 565002764 Active MARIO TOBAR [facility] 4 13:34:56 Amnestic mild cognitiv e disorder 660927050 Active MARIO AMADOU [facility] 4 13:32:36 Epilepsy 62319498 Active MARIO AMADOU [facility] 4 13:34:19 Acute kidney injury 96447336 Completed 06/14/2024 [facility] 5 13:02:39 Generali zed epilepsy 49347348 Active MARIO AMADOU [facility] 5 13:04:59 Lumbar disc prolapse with radiculo abisai 288450318 [facility] 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 5 13:05:24 Arthropa thy of lumbar facet joint 926050327 Active MARIO AMADOU [facility] 5 13:02:55 Coronary atherosc lerosis 003483230 Active MARIOHOLLEY TOBAR [facility] 5 13:03:47 Hyperten sive disorder 72105836 Active 2021 ESSENTIA L HYPERTEN KIMBERLY Elizabeth Hernandez [facility] 4 12:32:01 Hypothyr oidism 24265508 Active 2022 MARIO TOBAR [facility] 4 13:31:33 Type 2 diabetes mellitus 24795385 Active 2022 MARIO TOBAR [facility] 4 13:31:57 Cirrhosi s of liver 87939039 Active 2022 DORITA BLACKMON, [address], [address] , [facility] 5 15:35:29 Coronary arterios clerosis 17082533 Active 2022 MARIO TOBAR [facility] 4 13:33:36 Noncompl iance with treatmen t 7543322 Active 2023 MARIO lai [facility] 4 13:35:47 Chronic chest pain 49809262032 4101 Active 2023 [facility] 4 13:29:50 Chronic abdomina l pain 958482753 Active 2023 [facility] 4 13:30:13 Noncompl iance with medicati on regimen 630118623 Active 2023 [facility] BhargavLLuzCLuz 4 13:37:22 Headache 03960180 Active 2024 [facility] 5 15:00:48 Problem Notes None recorded. Procedures Surgical History Date Name Laterality Status Provider Name and Address Organization Details Recorded Time 06/26/19 25 plain X-ray of chest completed [facility] 06/29/2024 12:00:13 06/11/19 25 plain X-ray of chest completed [facility] 06/14/2024 12:57:44 06/11/[address] of head completed [facility] 06/14/2024 12:59:28 06/11/[address] of head and neck completed [facility] 06/14/2024 13:01:54 04/28/20 24 Colonoscopy completed [facility] 04/28/2024 17:45:31 04/28/20 24 endoscopy completed [facility] 04/28/2024 17:54:37 11/24/19 24 US scan of upper abdomen completed [facility] 12/10/2023 18:57:38 10/23/19 24 plain X-ray of chest completed [facility] 10/24/2023 13:29:24 10/17/19 24 US scan of abdomen and pelvis completed [facility] 10/21/2023 11:10:36 10/13/[address] of abdomen completed [facility] 10/15/2023 10:14:29 07/07/19 24 diagnostic radiography of abdomen completed [facility] 07/10/2023 11:41:35 07/06/[address] of abdomen completed [facility] 07/10/2023 11:40:54 01/31/20 23 Shave Biopsy, Multiple completed Km Benz MD [address] [place] [address], [address], [facility] 01/31/2023 09:34:59 Cholecystectomy completed [facility] 06/12/2023 15:44:05 Angioplasty completed [facility] 06/12/2023 15:44:18 Imaging Results None recorded. Procedure Notes None recorded. Medical Equipment None Reported. Allergies Allergen ID Allergen Name Allergen Category Reaction Reaction Severity Criticality Documentation Date Start Date Code Code System Note Provider Name and Address Organization Details Recorded Time 11859 Keflex medicatio n hives mild low 12/07/2022 7 RxNorm Elizabeth lai [facility] 12:31:23 46870 cephalexi n medicatio n Not available Not available Not available 12/10/20232023 2231 RxNorm BUD KLEIN [address] [place], [address], [facility] 5 15:35:49 Medications Name Sig Start Date Stop Date Status Note LastModified by Organization Details LastModified Time Refresh Tears 0.5 % eye drops Apply 2 drops twice a day by ophthalm ic route as directed for 30 days. 2024 active Not Available Not Available Not Avai lable cyclobenz aprine 10 mg tablet three times [...] vitamin E daily 05/20 completed Recorded 08/11/19 22 4:33PM by Mario Tobar CMT, Historic al [...] Available Not Available Not Available Dexcom G7 Transit Man USE DIRECTED 08/15 completed Not Available Not Available Not Available Dexcom G7 Sensor device CHANGE for 10 days DIRECTED 08/15 completed Not Available Not Available Not Available Vitals Date Recorded Body height Provider Name an d Address Organization Details Last Updated DateTime 09/06/2024 175.26 cm YOVANI [facility] 09/06/2024 14:59:16 Date Recorded Body height Provider Name an d Address Organization Details Last Updated DateTime 12/20/2024 175.26 cm YOVANI [facility] 12/22/2024 14:56:19 Date Recorded Body height Provider Name an d Address Organization Details Last Updated DateTime 02/14/2025 175.26 cm YOVANI [facility] 02/14/2025 16:01:39 Date Recorded Body height Body mass index (BMI) Body weight Oxygen saturation Heart rate Respiratory rate Systolic And Diastolic Provider Name and Address Organization Details Last Updated DateTime 5 175.26 cm 30.9 kg/m2 56182.8 1 g 97 % 68 /min 20 /min 158/92 mm[Hg] MARIO AMADOU [facility] 12:50:51 Date Recorded Body height Body mass index (BMI) Body weight Oxygen saturation Heart rate Respiratory rate Body temperature Systolic And Diastolic Provider Name and Address Organization Details Last Updated DateTime 175.26 cm 31 kg/m2 31334.4 g 97 % 64 /min 16 /min 98.2 [degF] 150/80 mm[Hg] Mariana Kimbrough [facility] 10:25:58 Social History Question Answer Notes LastModified by Organizat ion Details LastModified Time Tobacco Smoking Status Current Every Day Smoker MARIO AMADOU [facility] 06/12/2023 15:43:57 What Was The Date Of Your Most Recent Tobacco Screening? 04/19/2025 [email or web address] Information not available 04/19/2025 How Much Tobacco Do You Smoke? 2 PPD [email or web address] Information not available 06/12/2023 Sex: Unknown Functional Status Question Answer Note LastModified by Organizat ion Details LastModified Time How many times per week do you consume alcohol? 3-4 times per week [email or web address] Information not available 06/12/2023 Do you use any illicit or recreational drugs? No [email or web address] Information not available 06/12/2023 What is your level of alcohol consumption? Occasional [email or web address] Information not available 12/22/2023 Mental Status None recorded. Family History Nothing Reported. Medical History Condition Response Diabetes Y Anxiety Disorder Y Coronary Artery Disease Y Seizures/Epilepsy Y Hospitalizations Y Depression Y COPD Y Hypothyroidism Y Reflux/GERD Y Liver Disease Y Mental Illness Y Hypertension Y Immunizations Vaccine Type Date Status Note Provider Juan baltazar and Address Organization Details Recorded Time Tdap 01/17/2014 completed PATTI lai [facility] 04/30/2023 11:30:04 Tdap 09/25/2023 completed Elizabeth lai [facility] 12/10/2023 12:32:48 Influenza, MDCK, trivalent, PF 03/10/2024 completed Not Available [email or web address] 2024 12:15:18 Past Encounters Encounter ID Performer Location Encounter Start Date Encounter Closed Date Diagnosis/Indication Diagnosis SNOMED-CT Code Diagnosis ICD10 Code Diagnosis IMO Codes Diagnosis Note BUD GILL [facility] ([facility]) [address] [place] [address] 10/23/2022 18:21:23 10/23/2022 20:56:12 Abdominal pain 00371048 R10.31 Cirrhosis of liver 007 K74.60 Ascites 335584937 R18.8 [id number] Km Benz MD [facility] ([facility]) [address] [place] [address] 01/30/2023 15:32:38 01/30/2023 17:29:34 Irritated melanocytic nevus of skin 4862556636 D22.9 It appears that this was bumped and the trauma led to its bleeding. Patient was agreeable to have it removed so it does not continue to bother him. Patient tolerated the procedure well and is skin care instructio ns were given. [id number] Km Benz MD [facility] ([facility]) [address] [place] [address] 02/04/2023 17:07:50 02/11/2023 09:21:10 Pimple of skin 304890897 R23.8 Discussed using warm compresses to bring it to head. Likely irritated from all the manipulati on. Patient reassured. [id number] DORITA BLACKMON [facility] ([facility]) [address] [place] [address] 05/02/2023 09:21:43 05/02/2023 10:08:45 Cirrhosis of liver 25657192 K74.60 Coronary arteriosclerosis 02598943 I25.[address] Noriega, no blockage. Type 2 meena betes mellitus 12216926 E11.65 Please send labs to Dr. Noriega's office. Hypothyroidism 80277072 E03.9 Please send labs to Dr. Barcenas. Infection of skin and/or subcutaneous tissue 78490958 L08.9 [id number] BUD KLEIN [facility] ([facility]) [address] [place] [address] 06/12/2023 13:49:47 06/24/2023 09:36:00 Constipation 04162061 K59.00 Pain of ri ght knee joint 7221258907 27345 M25.561 He was seen by ortho and given a shot that has helped some. [id number] DORITA BLACKMON REHAB DIRECTOR OCCUPATIONAL THERAPIST [facility] ([facility]) [address] [place] [address] 07/15/2023 15:07:04 07/15/2023 16:05:36 Diabetes mellitus 77296212 E11.[address] Barcenas, endocrinol ogy. His recent blood sugar in the ER was over 1000. She has adjusted his medication now. Constipation 22456306 K5 9.00 Cirrhosis of liver 007 K74.60 Guardian has been given the number to call to make him an appt. Abdominal pain 94491124 R10.9 Hospital follow-up. Continues with mild pain. [id number] DORITA BLACKMON [facility] ([facility]) [address] [place] [address] 08/26/2023 09:32:46 08/26/2023 10:33:20 Comedonal acne 334697828 L70.0 Multiple lesions punctured with 18Ga needle and expressed. Advised him to get an exfoliatin g wash. [id number] DORITA BLACKMON [facility] ([facility]) [address] [place] [address] 09/17/2023 11:34:12 09/17/2023 12:57:11 Depressive disorder 84214935 F32.9 Type 2 meena betes mellitus 18510996 E11.65 Dexcom G7 given. [id number] Km Benz MD [facility] ([facility]) [address] [place] [address] 09/25/2023 13:16:23 09/26/2023 07:52:44 [id number] CONCEPCION CORLEY [facility] ([facility]) [address] [place] [address] 11/17/2023 11:38:55 11/17/2023 18:44:47 Right upper quadrant pain 729189616 R10.11 With change in pain to the RUQ and hx of cirrhosis, will order US of abd. Will call patient with appt date/time. No changes in medication s. VSS. No signs of surgical abd today. [id number] CONCEPCION CORLEY [facility] ([facility]) [address] [place] [address] 11/24/2023 11:08:57 11/25/2023 08:06:19 [id number] Yash Villatoro DO [facility]) [address] [place] [address] 12/22/2023 17:11:04 01/17/2024 06:56:13 Acute conjunctivitis of right eye 3551742076 56217 H10.31 counseled on dx. warm compresses and keep eyelids clean. counseled on limiting spread of illness. will start topical abx. Return to office with no improvemen t or any problems. Go to ER with severe worsening or severe problems. [id number] CONCEPCION CORLEY REHAB DIRECTOR OCCUPATIONAL THERAPIST [facility] ([facility]) [address] [place] [address] 02/24/2024 15:29:18 02/24/2024 16:08:33 Tuberculosis screening 123389632 Z11.1 [id number] DORITA BLACKMON REHAB DIRECTOR OCCUPATIONAL THERAPIST [facility] ([facility]) [address] [place], [place] [address] 05/18/2024 14:33:18 05/18/2024 15:48:11 Cirrhosis of liver 49917312 K74.60 GI work up has been done. Type 2 meena betes mellitus without complication 654789043 E11.9 Hypothyroidism 73413205 E03.9 Please send labs to Dr. Barcenas. Chronic back pain 500522 002 G89.29 Back pain and chronic abdominal pain. Has followed with pain management in the past. Thickened nails 79838177 5 Q84.5 [id number] Joseph Crespo DO [facility] ([facility]) [address] [place] [address] 06/07/2024 08:24:55 06/28/2024 16:55:47 Benign essential hypertension 1736321 I10 Seizure disorder 6633648 02 G40.909 Amnestic m ild cognitive disorder 531123570 G31.84 Chronic back pain 610559 002 G89.29 Cirrhosis of liver 54490 007 K74.60 Chest pain 42471305 R07. 9 [id number] Joseph Crespo DO [facility] ([facility]) [address] [place] [address] 09/06/2024 08:16:06 09/09/2024 07:08:27 Benign essential hypertension 9650146 I10 Chronic back pain 098579 002 G89.29 Headache 89974453 R51.9 82409361 Lesion of external ear 826081883 H61.92 [id number] [id number] Joseph Crespo DO [facility] ([facility]) [address] [place] [address] 12/22/2024 11:20:46 12/27/2024 15:28:14 Benign essential hypertension 9079009 I10 Generalized epilepsy 195 83205 G40.309 History of placement of stent for coronary artery disease 074380496 Z95.5 Hypertensive disorder 38 481575 I10 [id number] Joseph Crespo DO [facility] ([facility]) [address] [place] [address] 02/14/2025 15:00:01 02/16/2025 07:31:12 Benign essential hypertension 7936289 I10 Generalized epilepsy 195 85316 G40.309 Cirrhosis of liver 28592 007 K74.60 Type 2 meena betes mellitus 49302586 E11.65 [id number] BUD KLEIN [facility] ([facility]) [address] [place] [address] 03/22/2025 12:10:53 03/22/2025 14:00:56 Chronic abdominal pain 327042109 R10.9 Type 2 meena betes mellitus 31426485 E11.[address] Barcenas[address] [facility] 59532969 3 L70.0 27218 [id number] RANDY MARQUES APRN [facility] ([facility]) [address] [place] [address] 04/19/2025 10:10:59 04/19/2025 12:27:15 Dry eyes 365334247 H04.121 [id number] Health Concerns Section Related Observation LastModified by Organization Detai ls LastModified Time None Recorded Concern Status LastModified by Organization Details LastModified Time None Recorded Advance Directives Directive None Recorded Payers Insurance Date Sequence Insurance Name Policy Number Policy Riojas Covered Member ID Riojas Member ID Guarantor Name 04/19/2025 1 [place] Alonso Golden [id number] Kourtney Leyva 04/19/2025 [place] [facility] [place] Alonso Golden [id number] Kourtney Leyva Notes Date Note Type Note Provider Name and Address Organization Details Recorded Time 09/06/2024 text/html Anxiety/Depressi onRepo rted by PatientHPIFor severity, patient reportsincreased anxietybut reportsdenies suicidal ideationsandable to maintain relationships.ROS as noted in the HPI Joseph Crespo DO [address] [place] [address], [phone], [facility] 09/07/2024 14:57:58 12/20/2024 text/html Anxiety/Depressi onRepo rted by PatientHPIFor severity, patient reportsincreased anxietybut reportsdenies suicidal ideationsandable to maintain relationships.ROS as noted in the HPI no complaitns per staff or pt. Joseph Crespo DO [address] [place] [address], [phone], [facility] 12/26/2024 14:47:18 02/14/2025 text/html Anxiety/Depressi onRepo rted by PatientHPIFor severity, patient reportsincreased anxietybut reportsdenies suicidal ideationsandable to maintain relationships.ROS as noted in the HPI no complaints per staff or pt. Joseph Crespo, [address] [place] [address], [phone], [facility] 02/15/2025 16:15:02 03/22/2025 text/html Abdominal PainRe ported by PatientAbdominal PainFor quality, patient reportsdull. For location, patient reportsruqandrlq. For severity, patient reportsmoderate. For duration, patient reportsconstant. For onset/timing, patient reportschronic. For previous tests, treatment and/or diagnostic procedures, patient reportsct of the abdomen __. Joseph Crespo [address] [place] [address], [address], [facility] 03/23/2025 15:34:43 04/19/2025 text/html Red EyeReported by Patient walk in patientpatient is here today for right eye pain, swelling, watering, and redness that started 2-3 days ago RANDY MARQUES, QUALITY ASSURANCE MONITOR [address] [place] [address], [phone], [facility] 04/19/2025 12:25:58
--- OUTSIDE RECORDS SUMMARY | 2025-05-09 23:57 | XMS_ITS | Clinical Summary ---
Author Organization [facility] Address [address] [place] [address] Phone Care Team Providers Care Line O Scribe Operator Name Role Phone Unavailable Primary Care Provider Unavailabl e Social History Tobacco Use Types Packs/Day Years Used Date Smoking Tobacco: Never Assessed Sex and Gender Information Value Date Recorded Sex Assigned at Not on file Legal Sex Male 8:35 AM DIRECTOR PLANS Gender Identity Not on file Sexual Orientation [...]
--- OUTSIDE RECORDS SUMMARY | 2025-05-09 23:57 | XMS_ITS | Encounter Summary ---
Author Organization [facility] Address 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 [employer] Gender Identity Not on file Sexual Orientation Not on file documented as of this encounter Plan of Treatment Upcoming Encounters Date Type Department Care Team (Latest Contact Info) Description 05/10/2025 10:30 AM SUPERVISOR [employer] Appointment [facility] Ultrasound [place] [address] [place] [address] Mirian Ramirez FNP [address] [address] 05/17/2025 10:40 AM SUPERVISOR [employer] Hospital Encounter [facility] Endoscopy [address] [place] [address] Chris Angel, DO [address] [phone] 05/17/2025 10:40 AM SUPERVISOR [employer] - 05/17/2025 11:00 AM SUPERVISOR [employer] Surgery [facility] Endoscopy [address] [place] [phone] Chris Angel, DO [address] [address] ESOPHAGOGASTRODUODENOSCOPY 10/19/2025 11:00 AM CDT Office Visit [facility] Gastroenterology - [place] [address] [address] Chris Angel, DO [address] [address] Scheduled Procedures Name Priority Associated Diagnoses Date/Ti me ESOPHAGOGASTRODUODENOSCOPY Hepatic cirrhosis, unspecified hepatic cirrhosis type, unspecified whether ascites present (CMS/HCC) 05/17/2025 10:40 AM SUPERVISOR [employer] documented as of this encounter Goals Goal Patient Goal Type Associated Problems Recent Progress Patient-Stated? Author Autogenerat ed Goal Care Plan Autogenerated Problem No Radha Collier documented as of this encounter Visit Diagnoses Not on filedocumented in this encounter Additional Health Concerns Active Problems Noted Date Diagnosed Date Autogenerated Problem 04/21/2025 documented as of this encounter
--- OUTSIDE RECORDS SUMMARY | 2025-05-09 23:57 | XMS_ITS | Continuity of Care Document ---
Author Organization [facility] Sergo Fregoso [facility] Praveen Flores, [facility] ([facility]) Address [address] [place] [address] Care Team Providers Care Foundry Engineer Name Role Phone DORITA BLACKMON Primary Care Provider Assessment Encounter Date Assessment Date Assessment LastModified [...] called him. Dr. Crespo sees him at [facility] but he hasn't spoken with him about it because he doesn't want Pepper the etl manager to know because she will tell Kourtney. Not available 03/22/2025 13:30:39 Plan of Treatment Reminders Order Date Submit Date Provider Last Modified By Organization Details Last Modified Time Details Appointments OFFICE VISIT 15 2025 10:00A BUD GERMAN Not available Not available Not available Lab None recorded. Referral gastroent erologist referral 2024 025 [facility] , [address], [place], [address], 04/05/2025 14:05:11 Procedures None recorded. Surgeries None recorded. Imaging None recorded. Medication Orders tretinoin 0.025 % topical cream 2024 025 [facility], [address] [place], [address], 03/23/2025 15:13:24 Patient TargetsNo targets recorded. Patient Instructions Encounter Date Encounter Id Patient Instructions Last Modified By Organization Details Last Modified Time 03/22/2025 [id number] Call or return for questions or concerns. Not available 03/22/2025 13:26:25 Reason for Referral Six Pack Loader Operator Referral for Chronic abdominal pain Referring Physician: Dorita Blackmon, Family Medicine, Encounter Date: 03/22/2025 Problems Name Problem SNOMED Code Status Onset Date Resolution Date Notes Provider Name and Address Organization Details Recorded Time Benign essentia l hyperten kimberly 0185410 Active DORITA BLACKMON [address], [address] , [facility] 5 15:35:29 Testoste jose carlos level below referenc e range 241649452 Active MARIO lai [facility] 4 13:32:03 Chronic back pain 577872785 Active MARIO lai [facility] 4 13:33:27 Splenome valentina 99966933 Active MARIO lai [facility] 4 13:36:56 Spinal stenosis of lumbar region 00401718 Active MARIO lai [facility] 4 13:36:52 Steatoti c liver disease 117744315 Active DORITA BLACKMON [address], [address] , [facility] 5 15:35:29 Myocardi al infarcti on 19774888 Active MARIO lai [facility] 4 13:35:39 Degenera tion of lumbar interver tebral disc 30701187 Active MARIO lai [facility] 4 13:33:44 Portal hyperten kimberly 00467549 Active MARIO TOBAR [facility] 4 13:36:07 History of drug abuse 550087177 Active MARIO TOBAR [facility] 4 13:34:51 History of placemen t of stent for coronary artery disease 836736786 Active MARIOHOLLEY TOBAR [facility] 4 13:34:56 Amnestic mild cognitiv e disorder 442650059 Active MARIOHOLLEY TOBAR [facility] 4 13:32:36 Epilepsy 17740268 Active MARIOHOLLEY TOBAR [facility] 4 13:34:19 Acute kidney injury 26238621 Completed 06/14/2024 MARIO TOBAR [facility] 5 13:02:39 Generali zed epilepsy 66215158 Active MARIOHOLLEY TOBAR [facility] 5 13:04:59 Lumbar disc prolapse with radiculo abisai 347420463 Active MARIOHOLLEY TOBAR [facility] 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 5 13:05:24 Arthropa thy of lumbar facet joint 337424493 Active MARIOHOLLEY TOBAR [facility] 5 13:02:55 Coronary atherosc lerosis 925507285 Active MARIOHOLLEY TOBAR [facility] 5 13:03:47 Hyperten sive disorder 90561220 Active [address] [facility] HYPERTEN KIMBERLY Ng joelle, [facility] 4 12:32:01 Hypothyr oidism 13765838 Active 2022 [facility] 4 13:31:33 Type 2 diabetes mellitus 42394804 Active 2022 MARIO TOBAR joelle [facility] 4 13:31:57 Cirrhosi s of liver 60985026 Active 2022 DORITA BLACKMON, [address], [address] , [facility] 5 15:35:29 Coronary arterios clerosis 93291508 Active 2022 MARIO TOBAR joelle [facility] 4 13:33:36 Noncompl iance with treatmen t 9869244 Active 2023 MARIO lai [facility] 4 13:35:47 Chronic chest pain 88172206910 4101 Active 2023 MARIO TOBAR joelle [facility] 4 13:29:50 Chronic abdomina l pain 554702354 Active 2023 MARIO lai [facility] 4 13:30:13 Noncompl iance with medicati on regimen 190514935 Active 2023 MARIO lai [facility] 4 13:37:22 Headache 33360371 Active 2024 YOVANI lai [facility] 5 15:00:48 Problem Notes None recorded. Procedures Surgical History Date Name Laterality Status Provider Name and Address Organization Details Recorded Time 06/26/19 25 plain X-ray of chest completed [facility], Praveen 06/29/2024 12:00:13 06/11/19 25 plain X-ray of chest completed [facility], Pra[place]en 06/14/2024 12:57:44 06/11/[address] of head completed [facility], Pra[place]en 06/14/2024 12:59:28 06/11/[address] of head and neck completed [facility], Prvaeen 06/14/2024 13:01:54 04/28/20 24 Colonoscopy completed [facility], Praveen 04/28/2024 17:45:31 04/28/20 24 endoscopy completed [facility], Praveen 04/28/2024 17:54:37 11/24/19 24 US scan of upper abdomen completed [facility], Praveen 12/10/2023 18:57:38 10/23/19 24 plain X-ray of chest completed [facility], Praveen 10/24/2023 13:29:24 10/17/19 24 US scan of abdomen and pelvis completed [facility], Praveen 10/21/2023 11:10:36 10/13/[address] of abdomen completed [facility], [place] 10/15/2023 10:14:29 07/07/19 24 diagnostic radiography of abdomen completed [facility], Praveen 07/10/2023 11:41:35 07/06/[address] of abdomen completed [facility], Praveen 07/10/2023 11:40:54 01/31/20 23 Shave Biopsy, Multiple completed Km Crase, MD [address] [place], [address], [facility], Praveen 01/31/2023 09:34:59 Cholecystectomy completed MARIO TOBAR [facility], Praveen 06/12/2023 15:44:05 Angioplasty completed MARIO TOBAR [facility], Praveen 06/12/2023 15:44:18 Imaging Results None recorded. Procedure Notes None recorded. Medical Equipment None Reported. Allergies Allergen ID Allergen Name Allergen Category Reaction Reaction Severity Criticality Documentation Date Start Date Code Code System Note Provider Name and Address Organization Details Recorded Time 93437 Keflex medicatio n hives mild low 12/07/2022 7 RxNorm Elizabeth Ng [facility], Praveen 4 12:31:23 95773 cephalexi n medicatio n Not available Not available Not available 12/10/20232023 2231 RxNorm DORITAArleen BLACKMON, SENIOR BIOSTATISTICIAN [address] [place], [address], [facility], Praveen 5 15:35:49 Medications Name Sig Start [...] Plavix daily 05/20 completed 0; Recorded 06/03/19 23 8:47AM by Lucia Jaeger RN, Office Visit; [...] Available Not Available Not Available Dexcom G7 Vat Overhauler USE DIRECTED 08/15 completed Not Available Not Available Not Available Dexcom G7 Sensor device CHANGE for 10 days DIRECTED 08/15 completed Not Available Not Available Not Available Vitals Date Recorded Body height Body mass index (BMI) Body weight Oxygen saturation Heart rate Respiratory rate Systolic And Diastolic Provider Name and Address Organization Details Last Updated DateTime 175.26 cm 30.9 kg/m2 75114.8 1 g 97 % 68 /min 20 /min 158/92 mm[Hg] MARIO TOBAR [facility] 12:50:51 Social History Question Answer Notes LastModified by Organizat ion Details LastModified Time Tobacco Smoking Status Current Every Day Smoker MARIO TOBAR [facility] 06/12/2023 15:43:57 What Was The Date Of Your Most Recent Tobacco Screening? 04/19/2025 [email or web address] Information not available 04/19/2025 How Much Tobacco Do You Smoke? 2 PPD [email or web address] Information not available 06/12/2023 Sex: Unknown Functional Status Question Answer Note LastModified by Organizat ion Details LastModified Time How many times per week do you consume alcohol? 3-4 times per week [email or web address] Information not available 06/12/2023 Do you use any illicit or recreational drugs? No [email or web address] Information not available 06/12/2023 What is your level of alcohol consumption? Occasional hpliler Information not available 12/22/2023 Mental Status None recorded. Family History Nothing Reported. Medical History Condition Response Anxiety Disorder Y Diabetes Y Coronary Artery Disease Y Seizures/Epilepsy Y Hospitalizations Y Hypothyroidism Y Depression Y COPD Y Reflux/GERD Y Liver Disease Y Mental Illness Y Hypertension Y Immunizations Vaccine Type Date Status Note Provider Nam e and Address Organization Details Recorded Time Tdap 01/17/2014 completed PATTI lai [facility] 04/30/2023 11:30:04 Tdap 09/25/2023 completed Elizabeth lai [facility] 12/10/2023 12:32:48 Influenza, MDCK, trivalent, PF 03/10/2024 completed Not Available [facility] 2024 12:15:18 Past Encounters Encounter ID Performer Location Encounter Start Date Encounter Closed Date Diagnosis/Indication Diagnosis SNOMED-CT Code Diagnosis ICD10 Code Diagnosis IMO Codes Diagnosis Note [id number] BUD KLEIN [facility] ([facility]) [address] [place] [address] 03/22/2025 12:10:53 03/22/2025 14:00:56 Chronic abdominal pain 473114958 R10.9 Type 2 meena betes mellitus 31835557 E11.[address] Barcenas. Closed comedone 85775863 3 L70.0 75977 Health Concerns Section Related Observation LastModified by Organization Detai ls LastModified Time None Recorded Concern Status LastModified by Organization Details LastModified Time None Recorded Payers Encounter Date Sequence Insurance Name Policy Number Policy Riojas Covered Member ID Riojas Member ID Guarantor Name 03/22/2025 1 [place] Alonso Golden [id number] Kourtney Leyva Notes Date Note Type Note Provider Name and Address Organization Details Recorded Time 03/22/2025 text/html Abdominal PainRe ported by PatientAbdominal PainFor quality, patient reportsdull. For location, patient reportsruqandrlq. For severity, patient reportsmoderate. For duration, patient reportsconstant. For onset/timing, patient reportschronic. For previous tests, treatment and/or diagnostic procedures, patient reportsct of the abdomen __. Joseph Crespo, DO [address] [place] [address], [address], [place] [facility] 03/23/2025 15:34:43
--- OUTSIDE RECORDS SUMMARY | 2025-05-09 23:57 | XMS_ITS | Continuity of Care Document ---
Author Organization [facility] Praveen Flores, [facility] ([facility]) Address [address] [place] [address] Care Team Providers Care Marble Machine Operator Name Role Phone ELIZABETH BLACKMON Primary Care Provider [phone] Assessment No assessment recorded. Plan of Treatment Reminders Order Date Submit Date Provider Last Modified By Organization Details Last Modified Time Details Appointments OFFICE VISIT 15 2025 10:00A M BUD KLEIN Not available Not available Not available Lab None recorded . Referral None recorded . Procedures None recorded . Surgeries None recorded . Imaging None recorded . Medication Orders None recorded . Patient TargetsNo targets recorded. Patient Instructions Encounter Date Encounter Id Patient Instructions Last Modified By Organization Details Last Modified Time 02/14/2025 [id number] ER notes reviewed; evaluated for abdominal pain with work up negative; better today a1c 7.6 in January[address] Follow[address] with Dr. Barcenas for DM. Not available 02/15/2025 16:14:38 Reason for Referral None Reported. Problems Name Problem SNOMED Code Status Onset Date Resolution Date Notes Provider Name and Address Organization Details Recorded Time Benign essentia l hyperten kimberly 8513669 Active BUD KLEIN [address] [place], [address] , [facility] Praveen Flores 5 15:35:29 Testoste jose carlos level below referenc e range 296146550 [facility] 4 13:32:03 Chronic back pain 375082459 [facility] 4 13:33:27 Splenome valentina 89425135 Active MARIO TOBAR [facility] 4 13:36:56 Spinal stenosis of lumbar region 29872264 Active MARIO TOBAR [facility] 4 13:36:52 Steatoti c liver disease 071102040 Active ELIZABETH BLACKMON, [facility] [place], [address] , [facility] 5 15:35:29 Myocardi al infarcti on 17582288 Active [facility] 4 13:35:39 Degenera tion of lumbar interver tebral disc 47900289 Active MARIO TOBAR [facility] 4 13:33:44 Portal hyperten kimberly 24599450 Active MARIO TOBAR [facility] 4 13:36:07 History of drug abuse 707599973 Active MARIO TOBAR [facility] 4 13:34:51 History of placemen t of stent for coronary artery disease 763114735 Active MARIO TOBAR [facility] 4 13:34:56 Amnestic mild cognitiv e disorder 360036411 Active MARIO TOBAR [facility] 4 13:32:36 Epilepsy 90676747 Active MARIO AMADOU [facility]avL[facility]C. 4 13:34:19 Acute kidney injury 66176646 Completed 06/14/2024 MARIO TOBAR [facility] 5 13:02:39 Generali zed epilepsy 05814567 Active MARIO AMADOU [facility] 5 13:04:59 Lumbar disc prolapse with radiculo abisai 202296221 Active MARIO AMADOU [facility] 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 5 13:05:24 Arthropa thy of lumbar facet joint 054684296 Active MARIOHOLLEY TOBAR [facility] 5 13:02:55 Coronary atherosc lerosis 491354874 Active MARIOHOLLEY TOBAR [facility] 5 13:03:47 Hyperten sive disorder 84106308 Active 2021 [facility] HYP[facility] KIMBERLY Elizabeth Ng [facility] 4 12:32:01 Hypothyr oidism 67908345 Active 2022 MARIO TOBAR [facility] 4 13:31:33 Type 2 diabetes mellitus 12109914 Active 2022 MARIO TOBAR [facility] 4 13:31:57 Cirrhosi s of liver 08765519 Active 2022 ELIZABETH BLACKMON, [facility] [place], [address] , [facility] 5 15:35:29 Coronary arterios clerosis 66718813 Active 2022 MARIO TOBAR [facility] 4 13:33:36 Noncompl iance with treatmen t 1183844 Active 2023 MARIO TOBAR [facility] 4 13:35:47 Chronic chest pain 19998980930 4101 Active 2023 MARIO lai [facility]CL[facility] 4 13:29:50 Chronic abdomina l pain 197865370 Active 2023 MARIO lai [facility] 4 13:30:13 Noncompl iance with medicati on regimen 795956343 Active 2023 MARIO lai [facility] 4 13:37:22 Headache 38953406 Active 2024 YOVANI SERRANO joelle [facility] L.L[facility]CLuz 5 15:00:48 Problem Notes None recorded. Procedures Surgical History Date Name Laterality Status Provider Name and Address Organization Details Recorded Time 06/26/19 25 plain X-ray of chest completed [facility] 06/29/2024 12:00:13 06/11/19 25 plain X-ray of chest completed [facility] 06/14/2024 12:57:44 06/11/[address] 25 [address] of head completed [facility] L.L.CLuz 06/14/2024 12:59:28 06/11/[address] 25 [address] of head and neck completed [facility] 06/14/2024 13:01:54 04/28/20 24 Colonoscopy completed [facility] 04/28/2024 17:45:31 04/28/20 24 endoscopy completed [facility] 04/28/2024 17:54:37 11/24/19 24 US scan of upper abdomen completed [facility] LLuzLLuzC. 12/10/2023 18:57:38 10/23/19 24 plain X-ray of chest completed [facility] 10/24/2023 13:29:24 10/17/19 24 US scan of abdomen and pelvis completed [facility] 10/21/2023 11:10:36 10/13/19 24 [address] of abdomen completed [facility] L.L.CLuz 10/15/2023 10:14:29 07/07/19 24 diagnostic radiography of abdomen completed [facility] 07/10/2023 11:41:35 07/06/[address] 24 [address] of abdomen completed [facility] 07/10/2023 11:40:54 01/31/20 23 Shave Biopsy, Multiple completed Km Benz MD [address] [place], [address], [facility] 01/31/2023 09:34:59 Cholecystectomy completed [facility] 06/12/2023 15:44:05 Angioplasty completed [facility] 06/12/2023 15:44:18 Imaging Results None recorded. Procedure Notes None recorded. Medical Equipment None Reported. Allergies Allergen ID Allergen Name Allergen Category Reaction Reaction Severity Criticality Documentation Date Start Date Code Code System Note Provider Name and Address Organization Details Recorded Time 59923 Keflex medicatio n hives mild low 12/07/202265707 7 RxNorm Elizabeth Ng [facility] L[facility]LLuzCLuz 12:31:23 37684 cephalexi n medicatio n Not available Not available Not available 12/10/20232023 2231 RxNorm BUD KLEIN [address] [place], [address], [facility] 5 15:35:49 Medications Name Sig Start [...] completed Not Available Not Available Not Available Mentor MeToDiveboard Ultra Test strips USE TO TEST BLOOD [...] Available Not Available Not Available Dexcom G7 Clamshell Operator USE DIRECTED 08/15 completed Not Available Not Available Not Available Dexcom G7 Sensor device CHANGE for 10 days DIRECTED 08/15 completed Not Available Not Available Not Available Vitals Date Recorded Body height Provider Name an d Address Organization Details Last Updated DateTime 02/14/2025 175.26 cm YOVANI SERRANO [facility] 02/14/2025 16:01:39 Social History Question Answer Notes LastModified by Organizat ion Details LastModified Time Tobacco Smoking Status Current Every Day Smoker MARIO TOBAR joelle [facility] 06/12/2023 15:43:57 What Was The Date Of Your Most Recent Tobacco Screening? 04/19/2025 [email or web address] Information not available 04/19/2025 How Much Tobacco Do You Smoke? 2 PPD [email or web address] Information not available 06/12/2023 Sex: Unknown Functional Status Question Answer Note LastModified by Organizat ion Details LastModified Time How many times per week do you consume alcohol? 3-4 times per week [email or web address] Information not available 06/12/2023 Do you use any illicit or recreational drugs? No [email or web address] Information not available 06/12/2023 What is your level of alcohol consumption? Occasional hpliler Information not available 12/22/2023 Mental Status None recorded. Family History Nothing Reported. Medical History Condition Response Anxiety Disorder Y Diabetes Y Coronary Artery Disease Y Seizures/Epilepsy Y Hospitalizations Y COPD Y Hypothyroidism Y Depression Y Reflux/GERD Y Liver Disease Y Mental Illness Y Hypertension Y Immunizations Vaccine Type Date Status Note Provider Nam e and Address Organization Details Recorded Time Tdap 01/17/2014 completed PATTI lai [facility] 04/30/2023 11:30:04 Tdap 09/25/2023 completed Elizabeth lai [facility] 12/10/2023 12:32:48 Influenza, MDCK, trivalent, PF 03/10/2024 completed Not Available [facility] 2024 12:15:18 Past Encounters Encounter ID Performer Location Encounter Start Date Encounter Closed Date Diagnosis/Indication Diagnosis SNOMED-CT Code Diagnosis ICD10 Code Diagnosis IMO Codes Diagnosis Note [id number] Joseph Crepso DO [facility] ([facility]) [address] [place] [address] 02/14/2025 15:00:01 02/16/2025 07:31:12 Benign essential hypertension 0200075 I10 Generalized epilepsy 195 66159 G40.309 Cirrhosis of liver 007 K74.60 Type 2 meena betes mellitus 94443602 E11.65 Health Concerns Section Related Observation LastModified by Organization Detai ls LastModified Time None Recorded Concern Status LastModified by Organization Details LastModified Time None Recorded Payers Encounter Date Sequence Insurance Name Policy Number Policy Riojas Covered Member ID Riojas Member ID Guarantor Name 02/14/2025 1 [place] Alonso Golden [id number] Kourtney Leyva Notes Date Note Type Note Provider Name and Address Organization Details Recorded Time 02/14/2025 text/html Anxiety/Depressi onRepo rted by PatientHPIFor severity, patient reportsincreased anxietybut reportsdenies suicidal ideationsandable to maintain relationships.ROS as noted in the HPI no complaints per staff or pt. Joseph Crespo, DO [address] [place], [address], [place] [facility] 02/15/2025 16:15:02
--- OUTSIDE RECORDS SUMMARY | 2025-05-09 23:58 | XMS_ITS | Encounter Summary ---
Author Organization [facility] Address [address] [place] [address] Care Team Providers Care Instructor Programmable Controllers Name Role Phone Unavailable Primary Care Provider Unavailabl e Encounter Details Date Type Department Care Team (Late st Contact Info) Description 05/03/2025 External Device Data [place] ABSTRACTION Provider, Abstract NO ADDRESS ON FILE Social History Tobacco Use Types Packs/Day Years [...] on file Legal Sex Male 8:05 PM CREAM DUMPER Gender Identity Not on file Sexual Orientation Not on file documented as of this encounter Plan of Treatment Upcoming Encounters Date Type Department Care Team (Latest Contact Info) Description 05/10/2025 10:30 AM CREAM DUMPER Appointment [facility] [address] [place] [address] Mirian Ramirez, PHYTOPATHOLOGY TEACHER [address] [facility] [address] [place] [address] 05/17/2025 10:40 AM CREAM DUMPER Hospital Encounter [facility] [address] [place] [address] Chris Angel, DO [address] [place] [address] 05/17/2025 10:40 AM CREAM DUMPER - 05/17/2025 11:00 AM CREAM DUMPER Surgery [facility] [address] [place] [address] Chris Angel, DO [address] [place] [address] ESOPHAGOGASTRODUODENOSCOPY 10/19/2025 11:00 AM CDT Office Visit [facility] [address] [facility] [address] [place] [address] Chris Angel, DO [address] [facility] [address] [place] [address] Scheduled Procedures Name Priority Associated Diagnoses Date/Ti me ESOPHAGOGASTRODUODENOSCOPY Hepatic cirrhosis, unspecified hepatic cirrhosis type, unspecified whether ascites present (CMS/HCC) 05/17/2025 10:40 AM CREAM DUMPER documented as of this encounter Goals Goal Patient Goal Type Associated Problems Recent Progress Patient-Stated? Author Autogenerat ed Goal Care Plan Autogenerated Problem No Radha Collier documented as of this encounter Visit Diagnoses Not on filedocumented in this encounter Additional Health Concerns Active Problems Noted Date Diagnosed Date Autogenerated Problem 04/21/2025 documented as of this encounter
--- OUTSIDE RECORDS SUMMARY | 2025-05-09 23:58 | XMS_ITS | Continuity of Care Document ---
Author Organization [facility] Praveen Flores, [facility] ([facility]) Address [address] [place] [address] Care Team Providers Care Pecan Mallow Dipper Name Role Phone ELIZABETH BLACKMON Primary Care Provider Assessment No assessment recorded. Plan of Treatment Reminders Order Date Submit Date Provider Last Modified By Organization Details Last Modified Time Details Appointments OFFICE VISIT 15 2025 10:00A M BUD KLEIN Not available Not available Not available Lab None recorded . Referral None recorded . Procedures None recorded . Surgeries None recorded . Imaging None recorded . Medication Orders Refresh Tears 0.5 % eye drops 2024 025 [facility], [address] [place], [address], 04/19/2025 11:20:42 Patient TargetsNo targets recorded. Patient Instructions Encounter Date Encounter Id Patient Instructions Last Modified By Organization Details Last Modified Time 04/19/2025 [id number] Discussed how to take the eye drops. Follow up for worsening [email or web address] Not available 04/19/2025 12:25:10 Reason for Referral None Reported. Problems Name Problem SNOMED Code Status Onset Date Resolution Date Notes Provider Name and Address Organization Details Recorded Time Benign essentia l hyperten kimberly 1168030 Active BUD KLEIN [address] [place], [address] , [facility] 15:35:29 Testoste jose carlos level below referenc e range 855025864 Active MARIO lai [facility] 4 13:32:03 Chronic back pain 972927411 [facility] 13:33:27 Splenome valentina 65934088 [facility] 4 13:36:56 Spinal stenosis of lumbar region 57037084 [facility] 4 13:36:52 Steatoti c liver disease 469744748 Active ELIZABETH BLACKMON, [address], [address] , [facility] 5 15:35:29 Myocardi al infarcti on 19364047 [facility] 4 13:35:39 Degenera tion of lumbar interver tebral disc 25474987 Active MARIO TOBAR [facility] 4 13:33:44 Portal hyperten kimberly 68875419 Active MARIO TOBAR [facility] 4 13:36:07 History of drug abuse 702181338 Active MARIO TOBAR [facility] 4 13:34:51 History of placemen t of stent for coronary artery disease 086746896 Active MARIO TOBAR [facility] 4 13:34:56 Amnestic mild cognitiv e disorder 044109310 Active MARIO TOBAR [facility] 4 13:32:36 Epilepsy 79499604 Active MARIO TOBAR [facility] 4 13:34:19 Acute kidney injury 01159435 Completed 06/14/2024 MARIO lai [facility] 5 13:02:39 Generali zed epilepsy 73779021 [facility] 5 13:04:59 Lumbar disc prolapse with radiculo abisai 953207589 Active MARIO lai [facility] 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 5 13:05:24 Arthropa thy of lumbar facet joint 649023621 [facility] 5 13:02:55 Coronary atherosc lerosis 497014065 [facility] 5 13:03:47 Hyperten sive disorder 95366201 Active 2021 ESSENTIA L HYPERTEN KIMBERLY Elizabethmarlene Ng [facility] 4 12:32:01 Hypothyr oidism 87454683 Active 2022 MARIO TOBAR [facility] 4 13:31:33 Type 2 diabetes mellitus 44659108 Active 2022 MARIO TOBAR [facility] 4 13:31:57 Cirrhosi s of liver 31433389 Active 2022 ELIZABETH BLACKMON, [facility] [address] [place], [address] , [facility] 5 15:35:29 Coronary arterios clerosis 24220810 Active 2022 [facility] 4 13:33:36 Noncompl iance with treatmen t 5993562 Active 2023 [facility] 4 13:35:47 Chronic chest pain 52375174788 4101 Active 2023 [facility] 4 13:29:50 Chronic abdomina l pain 290175780 Active 2023 MARIO lai [facility] 4 13:30:13 Noncompl iance with medicati on regimen 777789605 Active 2023 [facility] 4 13:37:22 Headache 42503699 Active 2024 [facility]ANI [facility]ERRANO [facility] 5 15:00:48 Problem Notes None recorded. Procedures Surgical History Date Name Laterality Status Provider Name and Address Organization Details Recorded Time 06/26/19 25 plain X-ray of chest completed [facility] 06/29/2024 12:00:13 06/11/19 25 plain X-ray of chest completed [facility] 06/14/2024 12:57:44 06/11/[address] head [facility] 06/14/2024 12:59:28 06/11/[address] 25 [address] of head and neck completed [facility] 06/14/2024 13:01:54 04/28/[address] [facility] 04/28/2024 17:45:31 04/28/[address] [facility] 04/28/2024 17:54:37 11/24/19 24 US scan of upper abdomen completed [facility] 12/10/2023 18:57:38 10/23/19 24 plain X-ray of chest completed [facility] 10/24/2023 13:29:24 10/17/19 24 US scan of abdomen and pelvis completed [facility] 10/21/2023 11:10:36 10/13/[address] of abdomen completed [facility] 10/15/2023 10:14:29 07/07/19 24 diagnostic radiography of abdomen completed [facility] 07/10/2023 11:41:35 07/06/[address] of abdomen completed [facility] 07/10/2023 11:40:54 01/31/20 23 Shave Biopsy, Multiple completed Km Benz MD [address] [place] [address], [address] 01/31/2023 09:34:[address] [facility] 06/12/2023 15:44:[address] [facility] 06/12/2023 15:44:18 Imaging Results None recorded. Procedure Notes None recorded. Medical Equipment None Reported. Allergies Allergen ID Allergen Name Allergen Category Reaction Reaction Severity Criticality Documentation Date Start Date Code Code System Note Provider Name and Address Organization Details Recorded Time 23988 Keflex medicatio n hives mild low 12/07/2022 7 RxNorm Elizabeth lai [facility] 12:31:23 34929 cephalexi n medicatio n Not available Not available Not available 12/10/20232023 2231 RxNorm ELIZABETH BLACKMON, [facility] [address] [place], [address], [facility] 5 15:35:49 Medications Name Sig Start Date [...] completed 0; Recorded 06/03/19 8:47AM by Lucia Jaeger, JOVANY, Office Visit; Not Available Not Available Not [...] Available Not Available Not Available Dexcom G7 Measurement Specialist USE DIRECTED 08/15 completed Not Available Not Available Not Available Dexcom G7 Sensor device CHANGE for 10 days DIRECTED 08/15 completed Not Available Not Available Not Available Vitals Date Recorded Body height Body mass index (BMI) Body weight Oxygen saturation Heart rate Respiratory rate Body temperature Systolic And Diastolic Provider Name and Address Organization Details Last Updated DateTime 175.26 cm 31 kg/m2 08366.4 g 97 % 64 /min 16 /min 98.2 [degF] 150/80 mm[Hg] Mariana Kimbrough [facility] 10:25:58 Social History Question Answer Notes LastModified by Organizat ion Details LastModified Time Tobacco Smoking Status Current Every Day Smoker MARIO AMADOU lai [facility] 06/12/2023 15:43:57 What Was The Date Of Your Most Recent Tobacco Screening? 04/19/2025 [email or web address] Information not available 04/19/2025 How Much Tobacco Do You Smoke? 2 PPD [email or web address] Information not available 06/12/2023 Sex: Unknown Functional Status Question Answer Note LastModified by Organizat ion Details LastModified Time How many times per week do you consume alcohol? 3-4 times per week [email or web address] Information not available 06/12/2023 Do you use any illicit or recreational drugs? No [email or web address] Information not available 06/12/2023 What is your [...] Recorded Time Tdap 01/17/2014 completed PATTI lai [facility] 04/30/2023 11:30:04 Tdap 09/25/2023 completed Elizabeth lai [facility] 12/10/2023 12:32:48 Influenza, MDCK, trivalent, PF 03/10/2024 completed Not Available [employer] 2024 12:15:18 Past Encounters Encounter ID Performer Location Encounter Start Date Encounter Closed Date Diagnosis/Indication Diagnosis SNOMED-CT Code Diagnosis ICD10 Code Diagnosis IMO Codes Diagnosis Note [id number] BUD KLEIN [facility] ([facility]) [address] [place] [address] 03/22/2025 12:10:53 03/22/2025 14:00:56 Chronic abdominal pain 788292157 R10.9 Type 2 meena betes mellitus 99965267 E11.[address] Barcenas. Closed comedone 84378634 3 L70.0 [id number] RANDY MARQUES APRN [facility] ([facility]) [address] [place] [address] 04/19/2025 10:10:59 04/19/2025 12:27:15 Dry eyes 519365447 H04.121 75294904 Health Concerns Section Related Observation LastModified by Organization Detai ls LastModified Time None Recorded Concern Status LastModified by Organization Details LastModified Time None Recorded Payers Encounter Date Sequence Insurance Name Policy Number Policy Riojas Covered Member ID Riojas Member ID Guarantor Name 04/19/2025 1 [place] Alonso Golden [id number] Kourtney Leyva Notes Date Note Type Note Provider Name and Address Organization Details Recorded Time 04/19/2025 text/html Red EyeReported by Patient walk in patientpatient is here today for right eye pain, swelling, watering, and redness that started 2-3 days ago RANDY MARQUES APRN [address] [place], [address], [facility], Praveen 04/19/2025 12:25:58
--- OUTSIDE RECORDS SUMMARY | 2025-05-09 23:58 | XMS_ITS | Clinical Summary ---
Author Organization [facility] Address [address] Luke: Epic Prelude ADT [place] [address] Care Team Providers Care Lens Finisher Name Role Phone Unavailable Primary Care Provider Unavailabl e Allergies Active Allergy Reactions Criticality Noted Date Comments Cephalexin Hives High 10/16/2023 Medications levETIRAcetam (KEPPRA) 750 mg Tablet Take 1 Tablet by mouth 2 times daily. Active levothyroxine 150 mcg tablet Take 150 mcg by mouth daily. 4 Active aspirin (MACHO CHEWABLE) 81 mg Tablet, [...] gram Powder Take by mouth daily. Active lactulose (ENULOSE) 10 gram/15 mL oral solution Take 30 mL by mouth 3 times daily. 2700 mL 1 5 06/20/19 26 Active Active Problems Problem Noted Date Diagnosed Date Portal hypertensive gastropathy 04/28/2024 Esophageal varices determined by endoscopy 04/28 Overview (04/28/2024): Grade 1 Gastritis determined by endoscopy 04/28/2024 Colon polyp 04/28/2024 Encounters Date Type Department Care Team Description 05/03/2025 External Device Data ST[facility] ABSTRACTION Provider, Abstract 05/03/2025 External Device Data [facility] ABSTRACTION Provider, Abstract 04/29/[address] [phone] Mirian Ramirez FNP Other (Results/) 04/28/2025 Results Follow-Up [address] [phone] Mirian Ramirez FNP AMMONIA LEVEL, ALPHA FETOPROTEIN TUMOR MARKER, CBC WITH DIFFERENTIAL, Additional followed-up results: 3 04/26/2025 External Device Data STL ABSTRACTION Provider, Abstract 04/22/[address] [phone] Shea Soler RN 04/21/2025 10:00 AM AVIONICS MECHANIC Office Visit [address] [phone] Mirian Ramirez FNP Hepatic cirrhosis, unspecified hepatic cirrhosis type, unspecified whether ascites present (CMS/HCC) (Primary Dx); Abdominal pain, unspecified abdominal location 03/25/2025 Orders Only [address] [phone] Dorita Flaherty, ANTIQUE CLOCKS REPAIRER Abdominal pain, unspecified abdominal location (Primary Dx) [...] on file Legal Sex Male 8:05 PM AVIONICS MECHANIC Gender Identity Not on file Sexual Orientation Not on file Last Filed Vital Signs Vital Sign Reading Time Taken Comments Blood Pressure 142/89 04/21/2025 9:52 AM AVIONICS MECHANIC Pulse 62 04/21/2025 9:52 AM AVIONICS MECHANIC Temperature 36.8 C (98.2 F) 10/16/2023 8:07 PM CDT Respiratory Rate 16 04/28/2024 2:52 PM AVIONICS MECHANIC Oxygen Saturation 98% 04/28/2024 2:52 PM AVIONICS MECHANIC Inhaled Oxygen Concentration - - Weight 95.7 kg (211 lb) 04/21/2025 9:52 AM AVIONICS MECHANIC Height 177.8 cm (5' 10 ) 04/21/2025 9:52 AM AVIONICS MECHANIC Body Mass Index 30.28 04/21/2025 9:52 AM AVIONICS MECHANIC Plan of Treatment Upcoming Encounters Date Type Department Care Team (Latest Contact Info) Description 05/10/2025 10:30 AM AVIONICS MECHANIC Appointment [facility] [address] [place] [phone] Mirian Ramirez, ANTIQUE CLOCKS REPAIRER [address] [address] 05/17/2025 10:40 AM AVIONICS MECHANIC Hospital Encounter [facility] Endoscopy [address] [place] [address] Chris Angel, DO [address] [address] 05/17/2025 10:40 AM AVIONICS MECHANIC - 05/17/2025 11:00 AM AVIONICS MECHANIC Surgery [facility] Endoscopy [address] [place] [address] Chris Angel, DO [address] [address] ESOPHAGOGASTRODUODENOSCOPY 10/19/2025 11:00 AM CDT Office Visit [facility] Gastroenterology - [place] [address] [place] [address] Chris Angel, DO [address] [place] [address] Scheduled Procedures Name Priority Associated Diagnoses Date/Ti me ESOPHAGOGASTRODUODENOSCOPY Hepatic cirrhosis, unspecified hepatic cirrhosis type, unspecified whether ascites present (CMS/HCC) 05/17/2025 10:40 AM AVIONICS MECHANIC Health Maintenance Due Date Last Done Comments [...] MONTHS 12/20/2018 06/22/2018 INFLUENZA VACCINE (#1) 2024 03/10/2024 COLORECTAL SCREENING 04/28/2029 04/28/2024, 04/28/2024, 04/28/2024 Colorectal Cancer Screening 04/28/2029 DTAP/TDAP/TD VACCINES (3 - T d or Tdap) 09/24/2033 09/25/2023, 01/17/2014 Goals Goal Patient Goal Type Associated Problems Recent Progress Patient-Stated? Author Autogenerat ed Goal Care Plan Autogenerated Problem No Radha Collier Procedures Procedure Name Priority Date/Time Associated Diagnosis Comments PROTIME-INR Routine 04/21/2025 11:13 AM AVIONICS MECHANIC Hepatic cirrhosis, unspecified hepatic cirrhosis type, unspecified whether ascites present (CMS/HCC) MITOCHONDRIAL ANTIBODY Routine 11:13 AM AVIONICS MECHANIC Hepatic cirrhosis, unspecified hepatic cirrhosis type, unspecified whether ascites present (CMS/HCC) COMPREHENSIVE METABOLIC PANEL Routine 04/21/2025 11:13 AM AVIONICS MECHANIC Hepatic cirrhosis, unspecified hepatic cirrhosis type, unspecified whether ascites present (CMS/HCC) CBC WITH DIFFERENTIAL Routine 04/21/2025 11:13 AM AVIONICS MECHANIC Hepatic cirrhosis, unspecified hepatic cirrhosis type, unspecified whether ascites present (CMS/HCC) ALPHA FETOPROTEIN TUMOR MARKER Routine 04/21/2025 11:13 AM AVIONICS MECHANIC Hepatic cirrhosis, unspecified hepatic cirrhosis type, unspecified whether ascites present (CMS/HCC) AMMONIA LEVEL Routine 04/21/2025 11:12 AM AVIONICS MECHANIC Hepatic cirrhosis, unspecified hepatic cirrhosis type, unspecified whether ascites present (CMS/HCC) COLONOSCOPY REPORT 04/28/2024 2: 36 PM AVIONICS MECHANIC from Last 3 Months or Most Recently Relevant to Health Maintenance Results * MITOCHONDRIAL ANTIBODY (04/21/2025 11:13 AM AVIONICS MECHANIC) Pathologist [facility] MITOCHONDRIAL AB <20.[address] [facility], Comment: Reference Range: NEGATIVE: < OR = 20.0 EQUIVOCAL: 20.1-24.9 POSITIVE: > OR = 25.0 FASTING:NO FASTING: NO Test Performed at: [facility], [address] [place] [address] Jahaira Landa MD,PhD,DUANE Blood 04/21/2025 11:1 3 AM AVIONICS MECHANIC 04/21/2025 11:13 AM AVIONICS MECHANIC Mirian FARRELL CHEMISTRY ORDERABLES Final Result [facility] [phone] [facility], [address] [place] [address] * ALPHA FETOPROTEIN TUMOR MARKER (04/21/2025 11:13 AM AVIONICS MECHANIC) [facility] ALPHA FETOPROTEIN TUMOR MARKER 1.4 <6.1 ng/mL [facility] Comment: This test was performed using the Ivis Lena chemiluminescent method. Values obtained from different assay methods cannot be used interchangeably. AFP levels, regardless of value, should not be interpreted as absolute evidence of the presence or absence of disease. FASTING:NO FASTING: NO Test Performed at: [address] [address] Lai Flores Blood 04/21/2025 11:1 3 AM AVIONICS MECHANIC 04/21/2025 11:13 AM AVIONICS MECHANIC Mirian LONGP CHEMISTRY ORDERABLES Final Result [facility] [phone] [address] * (ABNORMAL) CBC WITH DIFFERENTIAL (04/21/2025 11:13 AM AVIONICS MECHANIC) WBC 8.5 3.8 - 10.8 Thousand/u L [facility] RBC 5.05 4.20 - 5.80 Million/uL [facility] HEMOGLOBIN 15.0 13.2 - 17.1 g/dL [facility] HEMATOCRIT 45.6 39.4 - 51.1 % [facility] MCV 90.3 81.4 - 101.7 fL [facility] MCH 29.7 27.0 - 33.0 pg [facility] MCHC 32.9 31.6 - 35.4 g/dL [facility] RDW 13.6 11.0 - 15.0 % [facility] PLATELETS 104(L) 140 - 400 Thousand/u L [facility] MPV 11.4 7.5 - 12.5 fL [facility] NEUTROPHIL ABSOLUTE 6,256 1,500 - 7,800 cells/uL [facility] LYMPHOCYTE ABSOLUTE 1,216 850 - 3,900 cells/uL [facility] MONOCYTE ABSOLUTE 655 200 - 950 cells/uL [facility] EOSINOPHIL ABSOLUTE 298 15 - 500 cells/uL [facility] BASOPHILS ABSOLUTE 77 0 - 200 cells/uL [facility] NEUTROPHIL 73.6 % [facility] LYMPHOCYTES 14.3 % [facility] MONOCYTE 7.7 % [facility] EOSINOPHILS 3.5 % [facility] BASOPHILS 0.9 % [facility] Comment: Test Performed at: [facility] [address] [place] [address] Valdemar Galeana Blood 04/21/2025 11:1 3 AM AVIONICS MECHANIC 04/21/2025 11:13 AM AVIONICS MECHANIC Mirian Ramirez [facility] ORDERABLES Tiny l Result [facility] [phone] [facility] [address] [place] [address] * (ABNORMAL) PROTIME-INR (04/21/2025 11:13 AM AVIONICS MECHANIC) INR 1.3(H) [facility] Comment: Reference Range 0.9-1.1 Moderate-intensity Warfarin Therapy 2.0-3.0 Higher-intensity Warfarin Therapy 3.0-4.0 PROTIME 12.8(H) 9.0 - 11.5 sec [facility] Comment: For additional information, please refer to http://education.Povio/faq/OQL456 (This link is being provided for informational/ educational purposes only.) FASTING:NO FASTING: NO Test Performed at: [email or web address] [address] [place] [address] Valdemar Galeana Blood 04/21/2025 11:1 3 AM AVIONICS MECHANIC 04/21/2025 11:13 AM AVIONICS MECHANIC us Mirian Ramirez ANTIQUE CLOCKS REPAIRER HEMATOLOGY ORDERABLES Tiny martinez Result [facility] [phone] [facility] [address] [facility], [place] [address] * (ABNORMAL) COMPREHENSIVE METABOLIC PANEL (04/21/2025 11:13 AM AVIONICS MECHANIC) GLUCOSE 127 65 - 139 mg/dL [facility] Comment: Non-fasting reference interval BUN 17 7 - 25 mg/dL [facility] CREATININE 1.25 0.70 - 1.30 mg/dL [facility] RR GFR 67 > OR = 60 mL/min/1. 73m[facility] BUN/CREAT RATIO SEE NOTE: 6 - 22 (calc) [facility] Comment: Not Reported: BUN and Creatinine are within reference range. SODIUM 141 135 - 146 mmol/L [facility] POTASSIUM 3.9 3.5 - 5.3 mmol/L [facility] CHLORIDE 101 98 - 110 mmol/L [facility] CO2 33(H) 20 - 32 mmol/L [facility] CALCIUM 10.1 8.6 - 10.3 mg/dL [facility] TOTAL PROTEIN 7.7 6.1 - 8.1 g/dL [facility] ALBUMIN 4.6 3.6 - 5.1 g/dL [facility] GLOBULIN 3.1 1.9 - 3.7 g/dL (calc) [facility] ALBUMIN/GLOBULIN RATIO 1.5 1.0 - 2.5 (calc) [facility] BILIRUBIN TOTAL 1.7(H) 0.2 - 1.2 mg/dL [facility] ALKALINE PHOSPHATASE 87 35 - 144 U/L [facility] AST 28 10 - 35 U/L [facility] ALT 27 9 - 46 U/L [facility] Comment: FASTING:NO FASTING: NO Test Performed at: [facility] [address] [place] [address] Valdemar Kwaku Galeana Blood 04/21/2025 11:1 3 AM AVIONICS MECHANIC 04/21/2025 11:13 AM AVIONICS MECHANIC [facility] CHEMISTRY ORDERABLES Final Result Performing Organization Address City/[facility] Co de Phone Number [facility] [phone] [facility] [address] [place] [address] * (ABNORMAL) AMMONIA LEVEL (04/21/2025 11:12 AM AVIONICS MECHANIC) AMMONIA 125(H) < OR = 72 umol/L [email or web address] Comment: FASTING:NO FASTING: NO Test Performed at: [facility] [address] [place] [address] Angélica Pham MD Blood, venous 04/21/2025 11: 12 AM AVIONICS MECHANIC 04/21/2025 11:13 AM AVIONICS MECHANIC [facility] CHEMISTRY ORDERABLES Final Result Performing Organization Address [facility] de Phone Number [facility] [phone] [facility] [address] [place] [address] * COLONOSCOPY REPORT (04/28/2024 2:36 PM AVIONICS MECHANIC) Narrative Procedure Note Cash Jarvis DO - 04/28/2024 2:36 PM CST [facility] GI Patient Name: Alonso Golden Procedure Date: 04/28/2024 Date of : 1965 Admit Type: Outpatient Age: 59 Attending MD: Cash Jarvis DO, Procedure: Colonoscopy with cold snare Indications: Screening for colorectal malignant neoplasm Providers: Cash aJrvis DO Referring MD: Dorita Flaherty Medicines: Propofol [...] This is a 59 year old male. [facility] [place] Cash Jarvis DO GI PROCEDURE ORDERABLES Final Result from Last 3 Months or Most Recently Relevant to Health Maintenance Additional Health Concerns Active Problems Noted Date Diagnosed Date Autogenerated Problem 04/21/2025 Insurance [place]ICAID [place] Advance Directives For more information, please contact: [phone] Documents on File Type Date Recorded Patient Emergency Response Officer Expl anation Advance Directive POA 10/16/2023 10:12 PM [facility]
--- OUTSIDE RECORDS SUMMARY | 2025-05-09 23:58 | XMS_ITS | Encounter Summary ---
Author Organization [facility] Address [address] [place] [address] Care Team Providers Care Instructional Technology Coordinator Name Role Phone Unavailable Primary Care Provider [...] on file Legal Sex Male 8:05 PM TELEHEALTH COORDINATOR Gender Identity Not on file Sexual Orientation Not on file documented as of this encounter Plan of Treatment Upcoming Encounters Date Type Department Care Team (Latest Contact Info) Description 05/10/2025 10:30 AM TELEHEALTH COORDINATOR Appointment [facility] [address] [place] [address] Mirian Ramirez, MICROBIOLOGY TECHNICIAN [address] [facility] [address] [place] [phone] 05/17/2025 10:40 AM TELEHEALTH COORDINATOR Hospital Encounter [facility] Endoscopy [address] [place] [address] Chris Angel, DO [address] [place] [phone] 05/17/2025 10:40 AM TELEHEALTH COORDINATOR - 05/17/2025 11:00 AM TELEHEALTH COORDINATOR Surgery [facility] Endoscopy [address] [place] [address] Chris Angel, DO [address] [place] [address] ESOPHAGOGASTRODUODENOSCOPY 10/19/2025 11:00 AM CDT Office Visit [facility] [place] [address] [facility] [address] [place] [address] Chris Angel, DO [address] [facility] [address] [place] [address] Scheduled Procedures Name Priority Associated Diagnoses Date/Ti me ESOPHAGOGASTRODUODENOSCOPY Hepatic cirrhosis, unspecified hepatic cirrhosis type, unspecified whether ascites present (CMS/HCC) 05/17/2025 10:40 AM TELEHEALTH COORDINATOR documented as of this encounter Goals Goal Patient Goal Type Associated Problems Recent Progress Patient-Stated? Author Autogenerat ed Goal Care Plan Autogenerated Problem No Radha Collier documented as of this encounter Visit Diagnoses Not on filedocumented in this encounter Additional Health Concerns Active Problems Noted Date Diagnosed Date Autogenerated Problem 04/21/2025 documented as of this encounter
[2025-05-10 00:02] VITALS: BP 145/96; PULSE 72; RESP 18; TEMP 36.7; O2SAT 97
--- NOTE | 2025-05-10 00:35 | ED_ITS ---
HPI - Recheck/Abnormal Lab/Rx 2 General: Chief Complaint: Recheck/Abnormal Lab/Rx Stated Complaint: HIGH BLOOD SUGAR Time Seen by Provider: 05/10/25 00:01 History of Present Illness: 60yo M w/cc of CAD s/p cardiac stenting, hypothyroidism, DM, COPD/smoking history, HTN w/cc of high blood sugar at home. He has not been ill. Denies fever, runny nose, sore throat, worsening or productive cough (has chronic cough due to smoking), shortness of breath. He states he intermittently has a dull ache behind his sternum that is worsened with stress but is not exertional, does not radiate, and he's not experiencing it now. He's been feeling nauseated but has not vomited. He has cirrhosis of the liver, portal hypertension and states he has chronic and unchanged RUQ/RLQ abd pain (requests pain medication) which he is having further evaluation for tomorrow morning with a liver ultrasound. He denies diarrhea or blood in stool. He states that he has been compliant with medications. Reports eating pie and sweets in the past few days. Denies increased thirst or increase in urination. He states he occasionally has burning with urination. Related Data Home Medications ?Medication ?Instructions ?Recorded ?Confirmed allopurinol 100 mg tablet 100 mg PO DAILY PRN GOUT 08/3003/09/25 levothyroxine 150 mcg tablet 150 mcg PO DAILY 02/18/24 03/09/25 calcium 600 mg (as 1 tab PO DAILY 05/29/2402/10 carbonate)-vitamin D3 10 mcg (400 unit) tablet (Calcium 600 + D(3)) metoprolol tartrate 50 mg tablet 50 mg PO DAILY 03/09/25 atorvastatin 40 mg tablet (Lipitor) 40 mg PO BID 07/2903/09/25 escitalopram oxalate 5 mg tablet 5 mg PO DAILY 5 03/09/25 hydroxyzine HCl 25 mg tablet 25 mg PO BID PRN 07/29/24 03/09/25 lactulose 10 gram/15 mL oral 15 g PO BID 07/29/2402/10 solution sucralfate 1 gram tablet 1 g PO BID 07/29/24 03/09/25 Previous Rx's ?Medication ?Instructions ?Recorded methocarbamol 750 mg tablet 750 mg PO TID PRN back kaden n #15 04/14/23 tabs aspirin 81 mg chewable tablet 81 mg PO DAILY@0700 #90 tabs 08/01/23 clopidogrel 75 mg tablet (Plavix) 75 mg PO DAILY@0700 #90 tabs 08/01/23 nitroglycerin 0.4 mg sublingual 0.4 mg sublingual Q5M PRN chest 08/01/23 tablet pain 30 days #30 tabs bacitracin 500 unit/gram topical 1 applic topical TOVA Y #14 grams 09/25/23 ointment insulin glargine 100 unit/mL 15 unit (0.15 mL) SUBCUT DAILY #10 06/14/24 subcutaneous solution (Lantus mL U-100 Insulin) pantoprazole 40 mg tablet,delayed 40 mg PO Q12H 30 day s #60 tabs 06/14/24 release isosorbide mononitrate 30 mg 30 mg PO DAILY #90 tabs 0 06/16/24 tablet,extended release 24 hr acetaminophen 650 mg 650 mg PO Q8H PRN pain #30 t abs 06/21/24 tablet,extended release (Tylenol Arthritis Pain) lisinopril 20 mg tablet 40 mg (2 x 20 mg) PO DAILY # 60 tabs 06/21/24 multivitamin (Daily Multi-Vitamin 1 tab PO QAM #60 tab s 07/29/24 tablet) acetaminophen 300 mg-codeine 30 mg 1 tab PO Q8H PRN pa in 7 days #21 08/12/24 tablet tabs silver sulfadiazine 1 % topical 1 applic topical DAILY 2 weeks #50 08/12/24 cream grams insulin lispro 100 unit/mL 3 unit (0.03 mL) SUBCUT TID #15 mL 10/05/24 subcutaneous pen (Humalog KwikPen (U-100) Insulin) levetiracetam 1,000 mg tablet 1,000 mg PO BID 90 days #180 tabs 12/02/24 (Keppra) naproxen 500 mg tablet (Naprosyn) 500 mg PO BID PRN pa in #20 tabs 01/30/25 Allergies Allergy/AdvReac Type Severity Reaction Status Date / Time cephalexin (From Keflex) Allergy Unknown Verified 03/09/25 13:59 Cephalosporins Allergy hives Verified 03/09/25 13:59 PFSH ED 2 [facility]: Medical History (Updated 05/10/25 @ 03:16 by Ramona Albert MD) Thrombocytopenia 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 Chest pain Unstable angina Atherosclerotic heart disease of [place] coronary artery with other forms of angina 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 History of opioid abuse Mild cognitive impairment with memory loss Lacunar stroke Splenomegaly Erectile dysfunction Hepatosplenomegaly Enlarged prostate Acute kidney injury Coronary artery disease Chronic low back pain Dyslipidemia Benign essential hypertension with target blood pressure below 140/90 Type 2 diabetes mellitus Atypical chest pain Epilepsy Obesity Glucose intolerance Smoker Hypothyroidism Surgical History History of cholecystectomy H/O eye surgery right eye History of PTCA H/O heart artery stent 07/11/2020-Cardiac stent placement mid LAD H/O umbilical hernia repair History of appendectomy Family History Father , at age 74 Family history of premature coronary artery disease Had a myocardial infarction in his 40s. Diabetes CAD (coronary artery disease) Chronic kidney disease (CKD) Stroke Brother Family history of premature coronary artery disease CAD (coronary artery disease) Had PA in the 50s Diabetes Stroke Grandmother CAD (coronary artery disease) Diabetes Grandfather CAD (coronary artery disease) Mother , at age 84 CAD (coronary artery disease) Cancer Diabetes COVID-19 Family/Other Lung disease Denies family history of Clotting disorder Dementia Suicide Anesthesia complication Bleeding disorder Social History Smoking and tobacco/nicotine status: current every day tobacco/nicotine user Alcohol intake: current Alcohol intake frequency: holidays/special occasions only Substance/Drug Use: never Household members: spouse Housing: House Marital status: Current occupational status: disabled Physical Exam 2 Narrative: EXAM NARRATIVE: Vital signs were reviewed. Patient is alert and oriented. Patient is breathing comfortably, no increased WOB or accessory muscle use. SpO2 is above 95% on RA. Patient has clear lungs b/l, no rhonchi, wheezing or crackles. No hypotension or tachycardia. Abdomen is soft, nondistended. There is tenderness in the right side of the abdomen that has been present for a long time. No CVA tenderness w/percussion of the flanks. Patient is moving all extremities, no deformity or gross injury. No lower extremity edema or asymmetry. Course 2 Vital Signs: Vital signs: Vital Signs Temperature 98.1 F 05/10/25 00:02 Pulse Rate 61 05/10/25 02:40 Respiratory Rate 14 05/10/25 01:02 Blood Pressure 159/92 05/10/25 02:40 Pulse Oximetry 96 05/10/25 02:40 Oxygen Delivery Me thod Room Air 05/10/25 02:40 MDM - Recheck/Abnormal Lab/Rx Medical Decision Making 60yo M w/cc of high blood sugar at home. Differential diagnosis includes but is limited to, hyperglycemia, HHS, DKA, underlying illness such as UTI, covid/flu, dehydration, ACS, GERD, pna, other. On exam patient is hemodynamically stable. Initial blood glucose is 361. Patient was treated with IV fluids, IV morphine and IV Zofran. He was evaluate CBC, CMP, electrolytes, beta hydroxybutyrate, troponin, UA, EGK, CXR. Patient has a normal white blood cell count. He has normal kidney function. Patient has normal potassium but magnesium is low, replaced orally and will recommend outpatient supplementation. Troponin is at the upper limit of normal but there is a negative delta. Patient does not have any significant LFT derangements. UA is not consistent with infection or hematuria. Chest x-ray does not show acute pathology. Presentation is consistent with hyperglycemia without DKA. No evidence of underlying illness or trigger. Suspect that patient may have not had an ideal diet in the past few days. He has an appointment with his roller printer on Friday. He's approrpriate for outpatient f/u w/endocrinology. Patient was counseled on supportive care at home, given return precautions and discharged in stable condition with recommendation for outpatient follow-up with primary care nurse or doctor. Lab Data 05/10/25 00:45 05/10/25 00:45 Radiology Impressions Chest X-Ray 05/10/25 00:45 IMPRESSION: No acute radiographic findings. Laboratory Results WBC 5.81 10^3/uL (3.29-11.43) 05/10/25 00:45 RBC 4.80 10^6/uL (3.85-5.65) 05/10/25 00:45 Hgb 14.40 g/dL (11.27-16.99) 05/10/25 00:45 Hct 42.5 % (37-53) 05/10/25 00:45 MCV 88.5 fl (82-101) 05/10/25 00:45 MCH 30.0 pg (27-33) 05/10/25 00:45 MCHC 33.9 g/dL (30-55) 05/10/25 00:45 RDW 13.2 % (12.1-15.1) 05/10/25 00:45 Plt Count 86 10^3/cmm (157-399) L 05/10/25 00:45 MPV 11.3 fL (7.4-10.4) H 05/10/25 00:45 Neut % (Auto) 69.8 % 05/10/25 00:45 Lymph % (Auto) 14.3 % 05/10/25 00:45 [place] % (Auto) 10.5 % 05/10/25 00:45 Eos % (Auto) 3.8 % 05/10/25 00:45 Baso % (Auto) 0.9 % 05/10/25 00:45 Neut # (Auto) 4.06 10^3/uL (1.8-7.7) 05/10/25 00:45 Lymph # (Auto) 0.8 10^3/uL (0.8-4.8) 05/10/25 00:45 [place] # (Auto) 0.6 10^3/uL (0.2-0.9) 05/10/25 00:45 Eos # (Auto) 0.2 10^3/uL (0.0-0.8) 05/10/25 00:45 Baso # (Auto) 0.1 10^3/uL (0.0-0.1) 05/10/25 00:45 Nucleated RBC % (auto) 0 % 05/10/25 00:45 Nucleated RBCs # 0.0 /100WBC 05/10/25 00:45 Specimen Type Venous 05/10/25 00:45 Willem Test Pos 05/10/25 00:45 VBG pH 7.38 (7.32-7.42) 05/10/25 00:45 VBG pCO2 53.9 mmHg (41-51) H 05/10/25 00:45 VBG pO2 31.2 mmHg (25-40) 05/10/25 00:45 VBG HCO3 31.5 mmol/L (24-28) H 05/10/25 00:45 VBG Base Excess 4.7 mmol/L (-3.0-3.0) H 05/10/25 00:45 VBG Hematocrit 45.9 % (42-52) 05/10/25 00:45 O2 Delivery Device Room air 05/10/25 00:45 FiO2 21.0 % 05/10/25 00:45 Regional Vice President Life Sales ID [email or web address] 05/10/25 00:45 Sodium 135 mmol/L (136-145) L 05/10/25 00:45 Potassium 3.9 mmol/L (3.5-5.1) 05/10/25 00:45 Chloride 96 mmol/L (98-107) L 05/10/25 00:45 Carbon Dioxide 27 mmol/L (22-29) 05/10/25 00:45 Anion Gap 15.9 (5-19) 05/10/25 00:45 BUN 14 mg/dL (6-20) 05/10/25 00:45 Creatinine 1.2 mg/dL (0.7-1.2) 05/10/25 00:45 GFR Calculation 62.2 mL/min (90-130) L 05/10/25 00:45 Glucose 353 mg/dL (65-115) H 05/10/25 00:45 POC Glucose 367 mg/dL (70-110) H 05/10/25 00:17 Calculated Osmolality 295 mOsm/kg (285-295) 05/10/25 00:45 Calcium 9.6 mg/dL (8.5-10.5) 05/10/25 00:45 Magnesium 1.6 mg/dL (1.7-2.3) L 05/10/25 00:45 Total Bilirubin 1.1 mg/dL (0.15-1.2) 05/10/25 00:45 AST 47 U/L (0-40) H 05/10/25 00:45 ALT 38 U/L (0-41) 05/10/25 00:45 Alkaline Phosphatase 131 U/L (40-130) H 05/10/25 00:45 Troponin T Baseline 16 ng/L (0-15) H 05/10/25 00:45 Troponin T 60 Minute 15.63 ng/L (0-15) H 05/10/25 01:59 Delta Troponin T -0.37 ABS# (0-10) L 05/10/25 01:59 Total Protein 7.4 g/dL (6.6-8.7) 05/10/25 00:45 Albumin 4.3 g/dL (3.5-5.2) 05/10/25 00:45 Globulin 3.1 g/dL (1.3-4.6) 05/10/25 00:45 Urine Color Yellow (Yellow) 05/10/25 00:55 Urine Appearance Clear (CLEAR) 05/10/25 00:55 Urine pH 7.5 (5-7) 05/10/25 00:55 Ur Specific [place] 1.017 (1.005-1.030) 05/10/25 00:55 Urine Protein Negative (Negative) 05/10/25 00:55 Urine Glucose (UA) 3+ (Normal) H 05/10/25 00:55 Urine Ketones Negative (Negative) 05/10/25 00:55 Urine Blood Negative (Negative) 05/10/25 00:55 Urine Nitrate Negative (Negative) 05/10/25 00:55 Urine Bilirubin Negative (Negative) 05/10/25 00:55 Urine Urobilinogen 1.0 mg/dL (Negative) 05/10/25 00:55 Ur Leukocyte Esterase Negative (Negative) 05/10/25 00:55 Urine RBC 0-2 /hpf (0-2) 05/10/25 00:55 Urine WBC 0-5 /hpf (0-5) 05/10/25 00:55 Ur Squamous Epith Cells 0-5 /hpf (0-5) 05/10/25 00:55 Amorphous Sediment Not Reportable 05/10/25 00:55 Urine Bacteria None seen /hpf (NONE) 05/10/25 00:55 Hyaline Casts 0-4 /lpf H 05/10/25 00:55 All radiology interpretation(s) finalized by discharge EKG Data EKG 1: Interpretation: Sinus rhythm with a heart rate of 72, left axis deviation, normal intervals, no STEMI. EKG 2: Interpretation: Sinus rhythm with a heart rate of 65, left axis deviation, normal intervals, no STEMI. No evolution or ischemic change. Discharge Plan Discharge Patient Disposition: Home Clinical Impression: Acute hyperglycemia Chest pain Qualifiers: Chest pain type: unspecified Qualified Code(s): R07.9 - Chest pain, unspecified Condition: Stable Prescriptions: No Action allopurinol 100 mg tablet 100 mg PO DAILY PRN (Reason: GOUT) isosorbide mononitrate 30 mg tablet extended release 24 hr 30 mg PO DAILY Qty: 90 3RF atorvastatin [Lipitor] 40 mg tablet 40 mg PO BID sucralfate 1 gram tablet 1 g PO BID hydroxyzine HCl 25 mg tablet 25 mg PO BID PRN escitalopram oxalate 5 mg tablet 5 mg PO DAILY lactulose 10 gram/15 mL solution 15 g PO BID multivitamin [Daily Multi-Vitamin] Tablet 1 tab PO QAM Qty: 60 0RF silver sulfadiazine 1 % cream 1 applic topical DAILY 14 Days Qty: 50 0RF Rx Instructions: apply a 1.5 mm thickness acetaminophen-codeine 300-30 mg tablet 1 tab PO Q8H PRN (Reason: pain) 7 Days Qty: 21 0RF Plavix 75 mg tablet 75 mg PO DAILY@0700 Qty: 90 3RF nitroglycerin 0.4 mg tablet, sublingual 0.4 mg SUBLINGUAL Q5M PRN (Reason: chest pain) 30 Days Qty: 30 3RF Rx Instructions: until response; do not exceed 3 doses per episode aspirin 81 mg tablet,chewable 81 mg PO DAILY@0700 Qty: 90 3RF insulin lispro [Humalog KwikPen Insulin] 100 unit/mL insulin pen 3 unit SUBCUT TID Qty: 15 3RF levetiracetam [Keppra] 1,000 mg tablet 1,000 mg PO BID 90 Days Qty: 180 3RF bacitracin 500 unit/gram ointment 1 applic topical DAILY Qty: 14 0RF acetaminophen [Tylenol Arthritis Pain] 650 mg tablet extended release 650 mg PO Q8H PRN (Reason: pain) Qty: 30 0RF lisinopril 20 mg Tablet 40 mg PO DAILY Qty: 60 1RF naproxen [Naprosyn] 500 mg tablet 500 mg PO BID PRN (Reason: pain) Qty: 20 0RF methocarbamol 750 mg tablet 750 mg PO TID PRN (Reason: back pain) Qty: 15 0RF levothyroxine 150 mcg tablet 150 mcg PO DAILY Rx Instructions: TAKE 1 TABLET BY MOUTH EVERY DAY metoprolol tartrate 50 mg Tablet 50 mg PO DAILY calcium carbonate-vitamin D3 [Calcium 600 + D(3)] 600 mg-10 mcg (400 unit) Tablet 1 tab PO DAILY insulin glargine [Lantus U-100 Insulin] 100 unit/mL solution 15 unit SUBCUT DAILY Qty: 10 0RF pantoprazole 40 mg Tablet,Delayed Release (Dr/Ec) 40 mg PO Q12H 30 Days Qty: 60 0RF Discharge Orders: Discharge ED (Routine); Ordered 05/10/25 Ordered By: Ramona Albert Referrals: Dorita Flaherty FNP [Primary Care Provider, Unknown] Patient Instructions: Opioid Safety, Pain Management, Patient Portal & Haley Instructions, Diabetic Hyperglycemia (ED), Chest Pain (ED) Activity Restrictions/Additional Instructions: Take your diabetic medications and insulin as prescribed. Please limit the intake of simple carbohydrates, sugar and sweets in your diet. Continue to monitor your condition closely at home. If your condition worsens or additional concerns arise, please return to the emergency department for reassessment. Otherwise, please see your roller printer as scheduled on Friday. Follow-up with your spring assembler as soon as you are able following your ED visit. Print Language: [place] Coding Level of Care Code ED Finish Molder for Marva Bunn
--- NOTE | 2025-05-10 00:35 | ECG_ITS ---
[facility] Test Date: 2025-[facility]10 Pat Name: Alonso Golden Department: Room: Gender: Male Web User Experience Strategist: : 1965 Requested By: Ramona Albert Order Number: [id number] Mariaa MD: Domingo Razo M.D. Measurements Intervals Maxwell Rate: 72 P: 27 CT: 164 QRS: -42 QRSD: 90 T: 59 QT: 411 QTc: 452 Interpretive Statements SINUS RHYTHM LEFT AXIS DEVIATION [QRS AXIS < -30] NONSPECIFIC T-WAVE ABNORMALITY Compared to ECG 02/06/2025 20:37:19 NO SIGNIFICANT CHANGE Electronically Signed On 05-12-2025 16:15:56 CIVILIAN JAIL OFFICER by Domingo Razo M.D. [email or web address]
--- NOTE | 2025-05-10 00:45 | XRR_ITS ---
PROCEDURE INFORMATION: Exam: XR Chest Exam date and time: 05/10/2025 12:54 AM Age: 60 years old Clinical indication: Pain; Chest pressure; Prior surgery; Surgery date: 6+ months; Surgery type: Coronary stent; Additional info: Chest pain TECHNIQUE: Imaging protocol: Radiologic exam of the chest. Views: 1 view. COMPARISON: CR XR chest 1V portable [id number] 02/06/2025 6:13 PM FINDINGS: Lungs: Unremarkable. No consolidation. Pleural spaces: Unremarkable. No pleural effusion. No pneumothorax. Heart/Mediastinum: Unremarkable. No cardiomegaly. Bones/joints: Unremarkable. XR/XR chest 1V portable [id number] IMPRESSION: No acute radiographic findings.
[2025-05-10 00:57] VITALS: BP 148/89; PULSE 75; O2SAT 97
[2025-05-10 00:59] LABS: Base Excess VBG 4.7 mmol/L (-3.0-3.0); Blood Gas Allen Test Pos; Blood Gas Operator Identificat gerca; Blood Gas Sample Type Venous; HCO3 VBG 31.5 mmol/L (24-28); PCO2 VBG 53.9 mmHg (41-51); PO2 VBG 31.2 mmHg (25-40); Venous Blood Gas Hematocrit 45.9 % (42-52); pH VBG 7.38 (7.32-7.42)
[2025-05-10 01:02] VITALS: RESP 14
[2025-05-10] MEDS: morphine 4 mg/mL SDV 1 mL IVP (01:02)
[2025-05-10] MEDS: ondansetron 2 mg/ML SDV 2 mL 4 MG IVP (01:03)
[2025-05-10 01:08] VITALS: BP 169/107; PULSE 74; O2SAT 96
[2025-05-10 01:12] LABS: Glucose Urine UA 3+ (Normal); Nitrate Urine Negative (Negative); Specific Gravity, Urine 1.017 (1.005-1.030)
[2025-05-10 01:17] LABS: Add Urine Microscopic? YES
[2025-05-10 01:30] LABS: Hematocrit 42.5 % (37-53); Hemoglobin 14.40 g/dL (11.27-16.99); Mean Corpuscular HGB Conc 33.9 g/dL (30-55); Mean Corpuscular Hemoglobin 30.0 pg (27-33); Mean Corpuscular Volume 88.5 fl (82-101); Nucleated Red Blood Cells % 0 %; Platelet Count 86 10^3/cmm (157-399); Red Blood Count 4.80 10^6/uL (3.85-5.65); White Blood Count 5.81 10^3/uL (3.29-11.43)
--- NOTE | 2025-05-10 01:35 | ECG_ITS ---
[facility] Date: 2025-05-10 Pat Name: Alonso Golden Department: Room: Gender: Male Gold Stamper: : 1965 Requested By: Ramona Albert Order Number: [id number] Reading MD: HENRIK STANLEY Measurements Intervals [place] Rate: 65 P: 30 TX: 169 QRS: -42 QRSD: 90 T: 60 QT: 410 QTc: 427 Interpretive Statements SINUS RHYTHM LEFT AXIS DEVIATION [QRS AXIS < -30] NONSPECIFIC T-WAVE ABNORMALITY Compared to ECG 05/10/2025 00:57:21 No significant changes Electronically Signed On 05-12-2025 18:51:14 RAW SCALES OPERATOR by HENRIK STANLEY [email or web address]
[2025-05-10 01:54] LABS: Troponin(5th) Baseline 16 ng/L (0-15)
[2025-05-10 01:59] LABS: Alanine Aminotransferase 38 U/L (0-41); Albumin Level 4.3 g/dL (3.5-5.2); Alkaline Phosphatase 131 U/L (40-130); Anion Gap 15.9 (5-19); Aspartate Amino Transferase 47 U/L (0-40); Blood Urea Nitrogen 14 mg/dL (6-20); Calcium 9.6 mg/dL (8.5-10.5); Carbon Dioxide 27 mmol/L (22-29); Chloride 96 mmol/L (98-107); Globulin 3.1 g/dL (1.3-4.6); Glucose 353 mg/dL (65-115); Magnesium 1.6 mg/dL (1.7-2.3); Osmolality Calculated 295 mOsm/kg (285-295); Potassium 3.9 mmol/L (3.5-5.1); Sodium 135 mmol/L (136-145); Total Protein 7.4 g/dL (6.6-8.7)
[2025-05-10 02:40] VITALS: BP 159/92; PULSE 61; O2SAT 96
[2025-05-10 03:41] VITALS: BP 144/95; PULSE 63; O2SAT 98
== END 2025-05-10 03:45 | disposition home or self-care (01) ==
PROVIDERS: Emergency Provider Emergency Medicine; PCP Nurse Practitioner Family
DX: E11.65 Type 2 diabetes mellitus with hyperglycemia (principal); R07.9 Chest pain, unspecified; Z79.82 Long term (current) use of aspirin; Z79.4 Long term (current) use of insulin; Z72.0 Tobacco use; I25.118 Atherosclerotic heart disease of native coronary artery with other forms of angina pectoris; E78.5 Hyperlipidemia, unspecified; I10 Essential (primary) hypertension
CPT/HCPCS: 36415; 36416; 71045; 80053; 81001; 82010; 82803; 82962; 83735; 84484; 85025; 93005; 96361; 96374; 96375; 99285; J2270; J2405; J7120; J9999